=== PATIENT | female | born 1960 | race Caucasian/White ===

== ENCOUNTER → 2016-05-20 | Outpatient (CLI) | payer OTHER ==
[~2016-05-20] MED LIST: ATOR-54 PO; ATV/1 PO; CGN1X PO; DONE5TAB9 PO; HLD5 PO; LEVO100T PO; LEVO100T84 PO; LTH300T PO; LTHCR300 PO; OMEG10007 PO; OXCA150T2 PO; OXCA300T PO; PROP10TA7 PO; QUET1TAB10 PO; QUET1TAB30 PO; QUET1TAB32 PO; QUET200T2 PO; RISP0.5T4 PO; RSP2 PO; SRQ200 PO; SULF800T23 PO; VTME100 PO; [UNRECOGNIZED DRUG - OTHER] PO; [UNRECOGNIZED DRUG - OTHER] PO
--- NOTE | 2016-05-20 16:01 | DIAGNOSTIC IMAGING REPORT ---
CHEST 2 VIEWS ROUTINE CLINICAL HISTORY: LOWER RESPIRATORY TRACT INFECTION dyspnea COMPARISON STUDY: 06/27/2015 FINDINGS: The bones soft tissues and hemidiaphragms are normal. The cardiomediastinal silhouette is normal. The lungs are clear. The pulmonary vasculature is normal. IMPRESSION: Negative chest. Electronically signed by: Josep Sneed M.D. 05/20/2016 3:59 PM Dictated Date/Time: 05/20/2016 3:59 PM
== END | disposition home or self-care (01) ==
LOC: C.RAD 15:40
PROVIDERS: ATTEND Plastic Surgery
DX: J22 Unspecified acute lower respiratory infection (principal)

== ENCOUNTER → 2016-06-09 | Outpatient (CLI) | payer OTHER ==
[2016-06-09 12:28] LABS: MEAN CELL VOLUME 88.4 fL (80-100); MEAN CORPUSCULAR HEMOGLOBIN 30.4 pg (25-34); MEAN CORPUSCULAR HGB CONC 34.4 g/dl (32-36); MEAN PLATELET VOLUME 11.9 fL (7.4-10.4); PLATELET COUNT 166 K/uL (130-400); RED BLOOD COUNT 4.64 M/uL (4.2-5.4); WHITE BLOOD COUNT 6.65 K/uL (4.8-10.8)
[2016-06-09 12:43] LABS: ALT/SGPT 43 U/L (12-78); BLOOD UREA NITROGEN 14 mg/dl (7-18); BUN/CREATININE RATIO 15.2 (10-20); CALCIUM 8.8 mg/dl (8.5-10.1); CARBON DIOXIDE 22 mmol/L (21-32); CHLORIDE 108 mmol/L (98-107); CHOLESTEROL 300 mg/dl (0-200); CREATININE 0.95 mg/dl (0.60-1.20); GLUCOSE 136 mg/dl (70-99); POTASSIUM 3.8 mmol/L (3.5-5.1); SODIUM 141 mmol/L (136-145)
[2016-06-09 12:53] LABS: ALB/GLOB RATIO 1.1 (0.9-2); ALKALINE PHOSPHATASE 91 U/L (45-117); AST/SGOT 25 U/L (15-37); CHOLESTEROL/HDL RATIO 7.7; HDL CHOLESTEROL 39 mg/dl; THYROID STIMULATING HORMONE 0.898 uIu/ml (0.300-4.500); TRIGLYCERIDES 407 mg/dl (0-150)
[2016-06-09 12:59] LABS: ESTIMATED AVERAGE GLUCOSE 126 mg/dl; HA1C FLAG Normal (Normal)
== END | disposition home or self-care (01) ==
LOC: C.LABBFT 08:25
PROVIDERS: ATTEND Internal Medicine
DX: E78.5 Hyperlipidemia, unspecified (principal); R73.01 Impaired fasting glucose; E03.9 Hypothyroidism, unspecified

== ENCOUNTER 2016-10-05 12:02 | Inpatient (IN) | payer OTHER ==
[~2016-10-05] VITALS: Ht 154.9 cm; Wt 74.8 kg
[~2016-10-05 12:02] MED LIST changes: -ATOR-54 PO; -CGN1X PO; -DONE5TAB9 PO; -HLD5 PO; -LEVO100T PO; -LTHCR300 PO; -OXCA150T2 PO; -OXCA300T PO; -PROP10TA7 PO; -QUET1TAB10 PO; -QUET1TAB32 PO; -RISP0.5T4 PO; -RSP2 PO; -SRQ200 PO; -VTME100 PO
[2016-10-05] MEDS ORDERED: LORAZEPAM 1 MG TAB SL STA (12:35)
--- NOTE | 2016-10-05 12:41 | EMERGENCY ROOM VISIT NOTE ---
History Report prepared by Esme: Joan Shah Under the Supervision of: Dr. Jacoby Bob D.O. First contact with patient: 12:20 Chief Complaint: MENTAL HEALTH EVALUATION Stated Complaint: [facility]MR History of Present Illness The patient is a 56 year old female who presents to the Emergency Room for mental health evaluation. Per the patient and her daughter, she has not been sleeping well lately. The patient has experienced this before and the lack of sleep causes a manic episode to occur. During these manic episodes she does have schizophrenia and hears voices. The patient is diagnosed with bipolar disorder. She is experiencing a headache but notes her mind has been racing with thoughts lately. She also has been urinating less than usual. The patient was admitted to [facility] last year for similar symptoms. The patient's daughter did talk to the patient's psychologist today. She denies any recent illnesses or suicidal ideation. Source of History: patient, family Onset: today Position: other (global) Quality: other (mental health evaluation) Timing: constant Associated Symptoms: + headache, + urinary symptoms Note: The patient is hearing voices. Review of Systems See HPI for pertinent positives & negatives. A total of 10 systems reviewed and were otherwise negative. Past Medical & Surgical Medical Problems: (1) Bipolar 1 disorder (2) Bipolar Disorder, Unspecified (3) Depressive Disorder Nec (4) Esophageal Reflux (5) Hypothyroidism Nos (6) Lumbago (7) Schizophrenia Nos-Unspec Family History Diabetes mellitus Social History Smoking Status: Never Smoker Alcohol Use: none Marital Status: in relationship Housing Status: unknown Occupation Status: unemployed Current/Historical Medications Scheduled Atorvastatin (Lipitor), 20 MG PO BID Donepezil HCl (Aricept), 1 TAB PO QAM Levothyroxine Sodium (Synthroid), 100 MCG PO DAILY Oxcarbazepine (Trileptal), 300 MG PO BID Quetiapine Fumarate (Seroquel), 50 MG PO BID Quetiapine Fumarate (Seroquel), 200 MG PO HS Tocopheryl Acet,Dl-Alpha (Vitamin E), 200 PO DAILY Scheduled PRN Lorazepam (Ativan), 1 MG PO BID PRN for Anxiety Allergies Coded Allergies: Penicillins (Verified Allergy, Unknown, UNKN, 06/27/15) Physical Exam Vital Signs Date Time Temp Pulse Resp B/P Pulse Ox O2 Delivery O2 Flow Rate FiO2 5/23/17 12:04 36.7 88 18 149/94 96 Room Air Physical Exam GENERAL: Patient is awake, alert, and in no acute distress. Patient is somewhat animated and anxious. EYES: The conjunctivae are clear. The pupils are round and reactive. EARS, NOSE, MOUTH AND THROAT: The nose is without any evidence of any deformity. Mucous membranes are moist tongue is midline NECK: The neck is nontender and supple. RESPIRATORY: Normal respiratory effort is noted there is no evidence of wheezing rhonchi or rales CARDIOVASCULAR: Regular rate and rhythm noted there no murmurs rubs or gallops normal S1 normal S2 GASTROINTESTINAL: The abdomen is soft. Bowel sounds are present in all quadrants. Abdomen is nontender MUSCULOSKELETAL/EXTREMITIES: There is no evidence of gross deformity full range of motion is noted in the hips and shoulders SKIN: There is no obvious evidence of any rash. There are no petechiae, pallor or cyanosis noted. NEUROLOGIC: Patient is awake alert and oriented x3 strength is symmetric patellar reflexes are 2+ bilaterally PSYCH: Affect animated. Patient answers questions appropriately. Responds to internal stimuli at times. Denies suicidal or homicidal ideation. Reports of auditory hallucinations through family member. Medical Decision & Procedures Laboratory Results 10/05/16 12:50 Red Blood Count 4.70, Mean Corpuscular Volume 88.9, Mean Corpuscular Hemoglobin 29.8, Mean Corpuscular Hemoglobin Concent 33.5, Mean Platelet Volume 10.9, Neutrophils (%) (Auto) 63.2, Lymphocytes (%) (Auto) 28.1, Monocytes (%) (Auto) 6.4, Eosinophils (%) (Auto) 1.7, Basophils (%) (Auto) 0.3, Neutrophils # (Auto) 4.87, Lymphocytes # (Auto) 2.16, Monocytes # (Auto) 0.49, Eosinophils # (Auto) 0.13, Basophils # (Auto) 0.02 10/05/16 12:50 Test 10/05/16 12:14 10/05/16 12:50 Urine Color DK YELLOW Urine Appearance CLEAR (CLEAR) Urine pH 5.5 (4.5-7.5) Urine Specific [place] 1.026 (1.000-1.030) Urine Protein NEG (NEG) Urine Glucose (UA) NEG (NEG) Urine Ketones TRACE (NEG) Urine Occult Blood NEG (NEG) Urine Nitrite NEG (NEG) Urine Bilirubin NEG (NEG) Urine Urobilinogen NEG (NEG) Urine Leukocyte Esterase MODERATE (NEG) Urine WBC (Auto) 5-10 /hpf (0-5) Urine RBC (Auto) 0-4 /hpf (0-4) Urine Hyaline Casts (Auto) 5-10 /lpf (0-5) Urine Epithelial Cells (Auto) >30 /lpf (0-5) Urine Bacteria (Auto) NEG (NEG) Urine Crystals CALCIUM OXALATE (NONE Urine Mucus PRESENT (NONE PRSENT) Urine Sperm (Auto) PRESENT Urine Test NEG (NEG) Urine Opiates Screen NEG (NEG) Urine Methadone, Qualitative NEG (NEG) Urine Barbiturates NEG (NEG) Urine Phencyclidine (PCP) Level NEG (NEG) Ur Amphetamine/Methamphetamine NEG (NEG) MDMA (Ecstasy) Screen NEG (NEG) Urine Benzodiazepines Screen NEG (NEG) Urine Cocaine Metabolite NEG (NEG) Urine Marijuana (THC) NEG (NEG) White Blood Count 7.69 K/uL (4.8-10.8) Red Blood Count 4.70 M/uL (4.2-5.4) Hemoglobin 14.0 g/dL (12.0-16.0) Hematocrit 41.8 % (37-47) Mean Corpuscular Volume 88.9 fL (80-100) Mean Corpuscular Hemoglobin 29.8 pg (25-34) Mean Corpuscular Hemoglobin Concent 33.5 g/dl (32-36) Platelet Count 225 K/uL (130-400) Mean Platelet Volume 10.9 fL (7.4-10.4) Neutrophils (%) (Auto) 63.2 % Lymphocytes (%) (Auto) 28.1 % Monocytes (%) (Auto) 6.4 % Eosinophils (%) (Auto) 1.7 % Basophils (%) (Auto) 0.3 % Neutrophils # (Auto) 4.87 K/uL (1.4-6.5) Lymphocytes # (Auto) 2.16 K/uL (1.2-3.4) Monocytes # (Auto) 0.49 K/uL (0.11-0.59) Eosinophils # (Auto) 0.13 K/uL (0-0.5) Basophils # (Auto) 0.02 K/uL (0-0.2) RDW Standard Deviation 39.9 fL (36.4-46.3) RDW Coefficient of Variation 12.4 % (11.5-14.5) Immature Granulocyte % (Auto) 0.3 % Immature Granulocyte # (Auto) 0.02 K/uL (0.00-0.02) Anion Gap 7.0 mmol/L (3-11) Est Creatinine Clear Calc Drug Dose 63.0 ml/min Estimated GFR () 81.7 Estimated GFR (Non- 70.5 BUN/Creatinine Ratio 14.5 (10-20) Calcium Level 8.8 mg/dl (8.5-10.1) Total Bilirubin 0.8 mg/dl (0.2-1) Direct Bilirubin 0.2 mg/dl (0-0.2) Aspartate Amino Transf (AST/SGOT) 30 U/L (15-37) Alanine Aminotransferase (ALT/SGPT) 43 U/L (12-78) Alkaline Phosphatase 118 U/L (45-117) Total Protein 7.0 gm/dl (6.4-8.2) Albumin 4.1 gm/dl (3.4-5.0) Thyroid Stimulating Hormone (TSH) 0.593 uIu/ml (0.300-4.500) [place] Level < 0.2 mMOL/L (0.6-1.2) Ethyl Alcohol mg/dL < 3.0 mg/dl (0-3) Laboratory results per my review. Medications Administered Medications (Trade) Dose Ordered Sig/Azeem Route Start Time Stop Time Status Last Admin Dose Admin Lorazepam (Ativan Tab) 1 mg NOW STAT SL 10/05/16 12:35 10/05/16 12:37 DC 10/05/16 12:47 1 MG ED Course 1230: The patient was evaluated in room A6. A complete history and physical examination were performed. 1235: Ativan Tab 1 mg SL. 1505: The patient will be admitted to [facility] for further inpatient treatment. Medical Decision Differential diagnosis: Etiologies such as mood disorder, infection, hypoglycemia, electrolyte abnormalities, cardiac sources, intracerebral event, toxicologic, neurologic, as well as others were entertained. Nursing notes reviewed. Additional history is obtained from the patient's daughter. The patient is a 56-year-old female who has a history of manic depression who is been having problems with insomnia and worsening alison. The patient had very significant symptoms at this time. She is unable to function at home. Reportedly she has been compliant with medications but she appears to be very difficult to manage otherwise. I discussed the patient's laboratory results with her. She was medically cleared in the emergency department. She was treated with Ativan in the emergency department and was feeling much better. She was evaluated by the emergency Department mental health spring encaser as well as the delegate from [address] [place] [address]. She was felt to be a good candidate for voluntary inpatient management. The patient was agreeable to this plan. Impression Primary Impression: Insomnia Additional Impressions: Alison Psychotic episode Scribe Attestation The scribe's documentation has been prepared under my direction and personally reviewed by me in its entirety. I confirm that the note above accurately reflects all work, treatment, procedures, and medical decision making performed by me. Departure Information Dispostion [facility] Acute Care Referrals No Doctor, Assigned (PCP) Problem Qualifiers Primary Impression: Insomnia Insomnia type: unspecified Qualified Codes: G47.00 - Insomnia, unspecified
[2016-10-05 13:04] LABS: URINE APPEARANCE CLEAR (CLEAR); URINE BILIRUBIN NEG (NEG); URINE COLOR DK YELLOW; URINE EPITHELIAL CELL AUTO >30 /lpf (0-5); URINE NITRITE NEG (NEG); URINE PH 5.5 (4.5-7.5); URINE SPECIFIC GRAVITY 1.026 (1.000-1.030); UROBILINOGEN NEG (NEG)
[2016-10-05 13:09] LABS: MANUAL MICROSCOPIC REQUIRED? NO; REVIEW REQ? YES
[2016-10-05 13:25] LABS: URINE MUCUS PRESENT (NONE PRSENT)
[2016-10-05 13:26] LABS: BUN/CREATININE RATIO 14.5 (10-20); CALCIUM 8.8 mg/dl (8.5-10.1); CREATININE 0.9 mg/dl (0.60-1.20); POTASSIUM 3.4 mmol/L (3.5-5.1)
[2016-10-05 13:37] LABS: THYROID STIMULATING HORMONE 0.593 uIu/ml (0.300-4.500)
[2016-10-05] MEDS ORDERED: OXCA150T2 PO (13:40)
[2016-10-05] MEDS ORDERED: SRQ200 PO (13:40)
[2016-10-05] MEDS ORDERED: DONE5TAB9 PO (13:40)
[2016-10-05] MEDS ORDERED: QUET1TAB32 PO (13:40)
[2016-10-05 13:45] LABS: PREG INTERNAL NEGATIVE QC NEG CLEAR BACKGROUND; PREG INTERNAL POSITIVE QC POS CONTROL LINE
[2016-10-05 13:48] LABS: BASO % 0.3 %; BASO ABS # 0.02 K/uL (0-0.2); COMPLETE YES; EOS % 1.7 %; HEMATOCRIT 41.8 % (37-47); IG% 0.3 %; LYMPH % 28.1 %; LYMPH ABS # 2.16 K/uL (1.2-3.4); MEAN CELL VOLUME 88.9 fL (80-100); MEAN CORPUSCULAR HEMOGLOBIN 29.8 pg (25-34); MEAN CORPUSCULAR HGB CONC 33.5 g/dl (32-36); MEAN PLATELET VOLUME 10.9 fL (7.4-10.4); MONO % 6.4 %; NEUT % 63.2 %; PLATELET COUNT 225 K/uL (130-400); WHITE BLOOD COUNT 7.69 K/uL (4.8-10.8)
[2016-10-05 14:07] LABS: BENZODIAZEPINE, URINE NEG (NEG); COCAINE,URINE NEG (NEG); PHENCYCLIDINE, URINE NEG (NEG)
[2016-10-05] MEDS ORDERED: OXCA300T PO (14:30)
[2016-10-05] MEDS ORDERED: VTME100 PO (14:43)
[2016-10-05] MEDS ORDERED: QUETIAPINE FUMARATE 25 MG TAB PO SCH (14:51)
[2016-10-05] MEDS ORDERED: BISMUTH SUBSALICYLATE PER ML OMNICELL CHARGE PO PRN (15:00)
[2016-10-05] MEDS ORDERED: hydrOXYzine HCL 25 MG TAB PO PRN (15:00)
[2016-10-05] MEDS ORDERED: SODIUM CHLORIDE 0.65% NA SOLN 45 ML (OCEAN) PRN (15:00)
[2016-10-05] MEDS ORDERED: MAGNESIUM HYDROXIDE SUSP 30 ML UDC PO PRN (15:00)
[2016-10-05] MEDS ORDERED: ALUMINUM/MAGNESIUM SUSP 30 ML UDC PO PRN (15:00)
[2016-10-05 15:05] VITALS: O2SAT 95
[2016-10-05] MEDS: LORAZEPAM 1 MG TAB PO PRN (15:55)
[2016-10-05 15:57] VITALS: BP 147/86; PULSE 84; TEMP 36.7; BMI 31.2
[2016-10-05] MEDS ORDERED: NURSING VERBAL MED ORDER ONE ×4 (16:45→22:00)
[2016-10-05] MEDS ORDERED: LORAZEPAM 1 MG TAB PO ONE ×2 (16:45→18:45)
[2016-10-05] MEDS: HALOPERIDOL 5 MG TAB PO PRN (16:50)
[2016-10-05] MEDS ORDERED: HALOPERIDOL 5 MG TAB PO ONE ×2 (17:45→18:45)
[2016-10-05] MEDS ORDERED: QUETIAPINE FUMARATE 100 MG TAB PO SCH (22:00)
[2016-10-06] MEDS: OXCARBAZEPINE 150 MG TAB PO SCH ×3 (00:16→20:44)
[2016-10-06] MEDS: QUETIAPINE FUMARATE 300 MG TAB PO SCH ×2 (00:16→20:43)
[2016-10-06] MEDS: ATORVASTATIN 20 MG TAB PO SCH ×2 (00:16→20:44)
[2016-10-06 07:03] VITALS: BP_SYST 143; BP_SYST 144; BP_DIAS 81; BP_DIAS 87; PULSE 76; PULSE 82; TEMP 36.2
[2016-10-06 07:09] VITALS: Ht 154.9 cm; Wt 74.8 kg
[2016-10-06] MEDS: TOCOPHERYL, DL-ALPHA 100 INTERUNIT CAP PO SCH (07:33)
[2016-10-06] MEDS: DONEPEZIL HCL 5 MG TAB PO SCH (07:33)
[2016-10-06] MEDS: LEVOTHYROXINE 100 MCG TAB PO SCH (07:33)
[2016-10-06] MEDS: QUETIAPINE FUMARATE 100 MG TAB PO SCH ×2 (07:33→14:07)
[2016-10-06] MEDS: LORAZEPAM 1 MG TAB PO PRN ×2 (07:42→19:49)
[2016-10-06] MEDS ORDERED: NURSING VERBAL MED ORDER ONE (07:45)
[2016-10-06] MEDS: HALOPERIDOL 5 MG TAB PO PRN ×2 (07:54→14:08)
[2016-10-06] MEDS ORDERED: BENZTROPINE MESYLATE 1 MG TAB PO ONE (08:00)
--- NOTE | 2016-10-06 08:50 | Psychiatric History & Physical ---
History Date of Service October 06, 2016. Identifying Data Taniya Waterman is a 56-year-old female who currently lives in [place] with her , has a history of bipolar disorder, and is admitted voluntarily after she presented with alison. Chief Complaint "I'm doing really, really good". History of Present Illness Patient is known to us from one prior very brief hospitalization in February 2014 for a mixed manic episode, when she was transferred to another psychiatric unit due to a conflict of interest, as a relative of hers was also on the unit. She presented to the ER yesterday with family and endorse symptoms of elevated , expansive mood, no sleep x 4 days, high energy, paranoia (thinks someone is going to kill her family), anxiety, and hyperactivity. She was confused and agitated after admission to the unit, repeatedly asking to leave, and could not find her room. She was hyperverbal, restless, pounding on the unit doors, and trying to touch and hug staff. She got multiple prns (Seroquel 50mg, Ativan 1mg , Haldol 10mg, Haldol 5mg, another Ativan 1mg). She was making accusations that family members and acquaintances "slipped something into her bottle" and that's why she is "like this". She admitted that she has not been taking her medications, and "this is what happens when I don't take them". Patient reports she stopped taking her medications because "people were making fun of my tongue ". She repeatedly attempts to enter the nurses' station, and continually gets up and down from bed to come talk to staff. Her and son visited and reported to staff that she had been stable on lithium for 25 years until 3 years ago when it was changed, they don't know why, and since then she's been hospitalized 3 times. During past hospitalizations, she was given a lot of medications that "snowed her for at least 2 or 3 days, so she could get the sleep she needed, and that really helped." Son says he has witnessed roughly 7 of her manic episodes in his life, and has never seen a presentation like this. He describes her "normal episodes" as being tearful, worried and introverted without sleeping. Son states is it uncharacteristic of her to be so labile, expansive and physical. Both son and agree she typically does not touch /hug, cry, and laugh during manic episodes. Pt. has been very physical with staff, attempting to hug, kiss and caress staff. This morning, she is again asking to leave. She requires a lot of intervention from staff and security, and has asked for medication to help calm her down. Today, she is seen with Jaylyn Palacio, MS 3. She reports manic symptoms for the past 3-4 weeks, stating that she stopped sleeping on September [birth year], which was her 's birthday. She denies stressors, and states "I think because of the wildcats on the porch." She does not know the names of the medication she is prescribed at home, saying she needs to see the prescriptions, but then says she manages her own medications. Although she told staff yesterday that she was not taking her psychotropic medications, today she insists that she takes them daily. She last saw her outpatient psychiatrist, Dr. Chadwick, on Tuesday, and states she told him that "I have a wonderful life, a wonderful , love of the Lord." She denies that any medication changes were made, although family told staff her medicines had just been adjusted. She says she stopped lithium couple of months ago on her own because "I figured I didn't need it." She denies that it was causing any problems for her, and is willing to go back on it. She states her family encouraged her to come in yesterday, because she needed to get on her medications and get some sleep. She now feels she is better, and wonders if she can leave. We discussed a plan to get her back on a good mood stabilizer, have a family meeting, and coordinate care with her outpatient providers prior to discharge, which she agrees to. She states mood is "really, really good, I'm happy, I go to temple, believe in the Lord, have an awesome, awesome ." Appetite has been decreased, and she has lost weight, although unsure of the exact amount, notes that her clothing is loose. She thinks her appetite was low because she "was nervous and didn't want to eat , because I thought someone was going to kill my ." She struggles to further clarify this, stating "that was a weird thought." She later states "I knew no one was going to kill my , everyone loves him." She endorses poor concentration, distractibility, and elevated energy that she describes as "super good, busy busy busy busy." She denies auditory and visual hallucinations, and states she doesn't recall telling staff last evening that she suspected her family had put something in her drink. Past Psychiatric History Current OP Treatment: psychiatrist (Dr. Chadwick) Prior OP Treatment: psychiatrist (Dr. Lin), therapist (at [facility], last years ago, did not feel it was helpful) Prior Psych Hospitalizations: [facility] (at age 16, according to the patient , "for no reason at all."), [facility] (2013 for mixed episode - transferred to another facility due to a relative being on the unit. She says she was also here many years ago.), [facility] (2015) Access to a Gun: No Suicide Attempts: No Past Medication Trials lithium - stable on it for 25 years Per records she was also on risperidone in the past Allergies Allergies: Coded Allergies: Penicillins (Verified Allergy, Unknown, UNKN, 06/27/15) Home Medications Scheduled Atorvastatin (Lipitor), 20 MG PO BID Donepezil HCl (Aricept), 1 TAB PO QAM Levothyroxine Sodium (Synthroid), 100 MCG PO DAILY Oxcarbazepine (Trileptal), 300 MG PO BID Quetiapine Fumarate (Seroquel), 50 MG PO BID Quetiapine Fumarate (Seroquel), 200 MG PO HS Tocopheryl Acet,Dl-Alpha (Vitamin E), 200 PO DAILY Scheduled PRN Lorazepam (Ativan), 1 MG PO BID PRN for Anxiety Family History Diabetes mellitus History of Suicide: No History of Substance Abuse: No Psychiatric History: Yes (sister with an unknown mental illness, possibly depression. Mother with a question of anxiety.) Alcohol Use Alcohol Use In Past 12 Months: No AUDIT Total Score: 0 Smoking Use Smoking Status: Never Smoker Substance History Denies ever abusing illicit or prescription medications. Personal History Lives in: [place] Childhood: Raised by both parents, who are still alive and live in [place], and she helps them out at home. Has 4 brothers and 3 sisters, all of whom live locally, and reports good relationships with them. Education: graduated from high school Work History: The patient states she has never worked, other than brief employment at [employer] in the 70s. She is supported by her , who works construction. Relationship History: (third marriage, has been almost 2 years. ) Children: 2 adult children, 1 son and 1 daughter Spiritual Affiliation: "I believe in the Lord." Legal History: none Psychological Trauma History: Other (denies) Review of Systems 10 systems reviewed and are negative except as stated above. Examination Physical Examination Physical exam performed in the emergency room was reviewed and accepted for the purposes of this admission. Vital Signs Vital Signs Past 12 Hours Date Time Temp Pulse Resp B/P Pulse Ox O2 Delivery O2 Flow Rate FiO2 10/06/16 07:03 36.2 76 18 144/81 82 143/87 Laboratory Results Last 24 Hours Test 10/05/16 12:14 10/05/16 12:50 Urine Color DK YELLOW Urine Appearance CLEAR Urine pH 5.5 Urine Specific [place] 1.026 Urine Protein NEG Urine Glucose (UA) NEG Urine Ketones TRACE Urine Occult Blood NEG Urine Nitrite NEG Urine Bilirubin NEG Urine Urobilinogen NEG Urine Leukocyte Esterase MODERATE Urine WBC (Auto) 5-10 /hpf Urine RBC (Auto) 0-4 /hpf Urine Hyaline Casts (Auto) 5-10 /lpf Urine Epithelial Cells (Auto) >30 /lpf Urine Bacteria (Auto) NEG Urine Crystals CALCIUM OXALATE Urine Mucus PRESENT Urine Sperm (Auto) PRESENT Urine Test NEG Urine Opiates Screen NEG Urine Methadone, Qualitative NEG Urine Barbiturates NEG Urine Phencyclidine (PCP) Level NEG Ur Amphetamine/Methamphetamine NEG MDMA (Ecstasy) Screen NEG Urine Benzodiazepines Screen NEG Urine Cocaine Metabolite NEG Urine Marijuana (THC) NEG White Blood Count 7.69 K/uL Red Blood Count 4.70 M/uL Hemoglobin 14.0 g/dL Hematocrit 41.8 % Mean Corpuscular Volume 88.9 fL Mean Corpuscular Hemoglobin 29.8 pg Mean Corpuscular Hemoglobin Concent 33.5 g/dl Platelet Count 225 K/uL Mean Platelet Volume 10.9 fL Neutrophils (%) (Auto) 63.2 % Lymphocytes (%) (Auto) 28.1 % Monocytes (%) (Auto) 6.4 % Eosinophils (%) (Auto) 1.7 % Basophils (%) (Auto) 0.3 % Neutrophils # (Auto) 4.87 K/uL Lymphocytes # (Auto) 2.16 K/uL Monocytes # (Auto) 0.49 K/uL Eosinophils # (Auto) 0.13 K/uL Basophils # (Auto) 0.02 K/uL RDW Standard Deviation 39.9 fL RDW Coefficient of Variation 12.4 % Immature Granulocyte % (Auto) 0.3 % Immature Granulocyte # (Auto) 0.02 K/uL Sodium Level 143 mmol/L Potassium Level 3.4 mmol/L Chloride Level 109 mmol/L Carbon Dioxide Level 27 mmol/L Anion Gap 7.0 mmol/L Blood Urea Nitrogen 13 mg/dl Creatinine 0.90 mg/dl Est Creatinine Clear Calc Drug Dose 63.0 ml/min Estimated GFR () 81.7 Estimated GFR (Non- 70.5 BUN/Creatinine Ratio 14.5 Random Glucose 143 mg/dl Calcium Level 8.8 mg/dl Total Bilirubin 0.8 mg/dl Direct Bilirubin 0.2 mg/dl Aspartate Amino Transf (AST/SGOT) 30 U/L Alanine Aminotransferase (ALT/SGPT) 43 U/L Alkaline Phosphatase 118 U/L Total Protein 7.0 gm/dl Albumin 4.1 gm/dl Thyroid Stimulating Hormone (TSH) 0.593 uIu/ml [place] Level < 0.2 mMOL/L Ethyl Alcohol mg/dL < 3.0 mg/dl Mental Examination During interview pt is: alert and oriented, cooperative (but a limited historian due to alison) Appearance: appropriately dressed, disheveled Eye contact is: fair Motor behavior is: psychomotor agitation (restless) Speech: is pressured (hyperverbal) Affect: other (elevated, expansive) Mood is: other ("really really good") Thought process: looseness of associations Thought content: paranoid Suicidal thought are: denied Homicidal thoughts are: denied Hallucinations: denies auditory, denies visual Cognition: language grossly intact, other (memory and attention are impaired) Intelligence estimated to be: average Insight: impaired Judgement: impaired Impression / Recommendations Impression 56-year-old white female with bipolar disorder type I who presents in a manic episode in the context of noncompliance with medications. She is willing to go back on lithium, which she was stable on for over 20 years. Inventory Assets Strengths: Has stable housing, supportive family Risk Factors Assessment : Yes /single/: No Higher / Fall in social status: No Access to guns: No Health problems: No Mental Health Diagnoses: Yes Substance use disorders: No Previous attempt: No Family history of suicide: No Previous psychiatric stay: Yes Hopelessness: No Smoker: No Protective Factors Assessment Restoration beliefs: Yes : Yes Responsible for young children: No Employed: No Supportive family: Yes Good rapport with provider: Yes Recommendations (1) Bipolar 1 disorder Current episode manic with psychosis. -Continue quetiapine which was increased on admission to 100 mg twice a day and 300 mg daily at bedtime to target manic symptoms. -Fasting lipid profile was checked 06/09/2016, and showed elevated cholesterol of 300 and elevated triglycerides of 407. Hemoglobin A1c was elevated at 6.0. This will require ongoing monitoring as an outpatient, and perhaps she could be tapered off of quetiapine once put back on lithium and stabilized. -Taper off of oxcarbazepine, which has not been an adequate mood stabilizer for her, and load with lithium tonight - 30mg/kg in 3 divided doses, with trough level tomorrow. -He knew haloperidol, lorazepam, and benztropine as needed for acute a and psychosis. -Get records from outpatient psychiatrist and coordinate care. -Family meeting with and possibly adult children. -Encourage increased outpatient supports, including therapy and case management. (2) Hypothyroidism Continue home dose of levothyroxine. (3) Hyperlipidemia Continue home dose of atorvastatin. CPT Code Initial Hospital Care: [id number]
[2016-10-06] MEDS: QUETIAPINE FUMARATE 25 MG TAB PO PRN ×2 (10:23→19:49)
[2016-10-06] MEDS ORDERED: LITHIUM CARBONATE SR 300 MG TAB (LITHOBID) PO SCH ×2 (10:30→20:00)
[2016-10-06] MEDS: BENZTROPINE MESYLATE 1 MG TAB PO PRN (14:07)
[2016-10-06] MEDS: LITHIUM CARBONATE SR 300 MG TAB (LITHOBID) PO SCH ×2 (15:46→18:05)
[2016-10-06] MEDS: ACETAMINOPHEN 325 MG TAB PO PRN (18:06)
[2016-10-06] MEDS: hydrOXYzine HCL 25 MG TAB PO PRN (21:58)
[2016-10-07] MEDS: LEVOTHYROXINE 100 MCG TAB PO SCH (07:55)
[2016-10-07] MEDS: TOCOPHERYL, DL-ALPHA 100 INTERUNIT CAP PO SCH (07:55)
[2016-10-07] MEDS: QUETIAPINE FUMARATE 100 MG TAB PO SCH ×2 (07:55→13:48)
[2016-10-07] MEDS: OXCARBAZEPINE 150 MG TAB PO SCH ×2 (07:55→21:42)
[2016-10-07] MEDS: DONEPEZIL HCL 5 MG TAB PO SCH (07:55)
[2016-10-07 08:10] VITALS: BP_SYST 113; BP_SYST 117; BP_DIAS 77; BP_DIAS 80; PULSE 73; PULSE 78; TEMP 36.4
[2016-10-07] MEDS ORDERED: HALOPERIDOL 5 MG TAB PO PRN (09:00)
--- NOTE | 2016-10-07 09:51 | Psychiatric Progress Notes ---
Progress Note Date of Service October 07, 2016. Interval History 56 yo woman admitted on 10/05/16 in a manic episode. She has had multiple hospitalizations since coming off of lithium. Chief Complaint "I'm ready to go.". Subjective Patient was seen & assessed interval progress reviewed with Treatment Team. The patient is anxious to leave, but wanting treatment. She says that her thoughts are slowing down and describes them as "not fast" today, but remains with high energy. Staff report that she has been disorganized, carrying her clothes around or throwing them away, repeatedly looking to leave, but easily reoriented to the need to stay in the unit. She was noted to be dancing and singing yesterday and received multiple prns on top of her scheduled meds. Her sleep is improved and noted to be for 7 hours or so last night. She denies aud/ vis hallucinations. She has submitted her 72 hr notice to withdraw from treatment which will on Tuesday, and at present has no insight into the need for ongoing treatment. She denies side effects to meds. Review of Systems Constitutional: No chills, No fatigue, No fever, No problem reported, No sweats , No weakness, No weight loss ENT: No dental problems, No hearing loss, No nasal symptoms, No problem reported, No sore throat, No tinnitus, No trouble swallowing, No unusual epistaxis Respiratory: No cough, No dyspnea at rest, No dyspnea on exertion, No hemoptysis, No problem reported, No shortness of breath, No sputum, No wheezing Cardiovascular: No PND, No chest pain, No claudication, No edema, No orthopnea , No palpitations, No problem reported Abdomen: No GI bleeding, No constipation, No diarrhea, No nausea, No pain, No problem reported, No vomiting Musculoskeletal: No calf pain, No joint pain, No muscle pain, No problem reported, No swelling Neurologic: No balance problems, No memory loss, No numbness/tingling, No paralysis, No problem reported, No vertigo, No weakness Psychiatric: + problem reported (high manic energy) Integumentary: No bleeding, No color change, No itch, No new/changing skin lesions, No problem reported, No rash Sleep Information Total Hours of Sleep: 6.25 Meal Information Percent of Breakfast Consumed: 50 Percent of Lunch Consumed: 90 Percent of Dinner Consumed: 100 Mental Status Exam During interview pt is: alert and oriented, cooperative Appearance: appropriately dressed, disheveled Eye contact is: fair Motor behavior is: psychomotor agitation (restless) Speech: is pressured (hyperverbal) Affect: blunted (appearing tired) Mood is: other ("fine") Thought process: other (fast thoughts) Thought content: paranoid, other (without insight) Suicidal thought are: denied Homicidal thoughts are: denied Hallucinations: denies auditory, denies visual Cognition: language grossly intact, other (memory and attention are impaired) Intelligence estimated to be: average Insight: impaired Judgement: impaired Impression Medications are helping to slow the alison, but her energy remains high, and behaviors disorganized. Loaded with li last night with level of 1.0. Will start maintenance of Lithobid 900 mg. HS with level in 5 days. Will increase Seroquel to 200 mg. and , and continue 300 mg. HS. Continue prn haldol. Will continue to gather information toward the need for further inpatient treatment, but may need to file for a 302 if she does not revoke her notice. Plan (1) Bipolar 1 disorder Current episode manic with psychosis. -Continue quetiapine which was increased on admission to 100 mg twice a day and 300 mg daily at bedtime to target manic symptoms. -Fasting lipid profile was checked 06/09/2016, and showed elevated cholesterol of 300 and elevated triglycerides of 407. Hemoglobin A1c was elevated at 6.0. This will require ongoing monitoring as an outpatient, and perhaps she could be tapered off of quetiapine once put back on lithium and stabilized. -Taper off of oxcarbazepine, which has not been an adequate mood stabilizer for her, and load with lithium tonight - 30mg/kg in 3 divided doses, with trough level tomorrow. -He knew haloperidol, lorazepam, and benztropine as needed for acute a and psychosis. -Get records from outpatient psychiatrist and coordinate care. -Family meeting with and possibly adult children. -Encourage increased outpatient supports, including therapy and case management. 10/07 - Increase Seroquel to 200-200-300 mg - Loaded with li, level 1.0. Start lithobid 900 mg. HS with level in 5 days. - Continue seroquel prn (2) Hypothyroidism Continue home dose of levothyroxine. (3) Hyperlipidemia Continue home dose of atorvastatin. Discharge / Aftercare Planning Primary Care Physician: Name: Dr Astorga Psychiatrist: Name: Dr Chadwick Therapist: Name: Ansely Social Service Agency Director: Name: None Visit Code E&M Code: 37567 Inventory Assets Strengths: Has stable housing, supportive family Risk Factors Assessment : Yes /single/: No Higher / Fall in social status: No Health problems: No Mental Health Diagnoses: Yes Substance use disorders: No Previous attempt: No Family history of suicide: No Previous psychiatric stay: Yes Hopelessness: No Smoker: No Protective Factors Assessment Moravian beliefs: Yes : Yes Responsible for young children: No Employed: No Supportive family: Yes Good rapport with provider: Yes Data Vital Signs Last 24 Hrs: Date Time Temp Pulse Resp B/P Pulse Ox O2 Delivery O2 Flow Rate FiO2 10/07/16 08:10 36.4 73 16 117/77 78 113/80 Meds Administered Last 24 Hrs: Meds Administered (Past 24Hrs) Medications (Trade) Dose Ordered Sig/Azeem Route Start Time Stop Time Status Last Admin Dose Admin Lorazepam (Ativan Tab) 1 mg NOW STAT SL 10/05/16 12:35 10/05/16 12:37 DC 10/05/16 12:47 1 MG Acetaminophen (Tylenol Tab) 650 mg Q4H PRN PO 10/05/16 15:00 11/04/16 14:59 10/06/16 18:06 650 MG Hydroxyzine HCl (Vistaril Tab) 50 mg HSZ PRN PO 10/05/16 15:00 11/04/16 14:59 10/06/16 21:58 50 MG Atorvastatin Calcium (Lipitor Tab) 20 mg HS PO 10/05/16 22:00 11/04/16 21:59 10/06/16 20:44 20 MG Donepezil HCl (Aricept Tab) 5 mg QAM PO 10/06/16 09:00 11/05/16 08:59 10/07/16 07:55 5 MG Levothyroxine Sodium (Synthroid Tab) 100 mcg DAILYBB PO 10/06/16 08:00 11/05/16 07:59 10/07/16 07:55 100 MCG Lorazepam (Ativan Tab) 1 mg BID PRN PO 10/05/16 15:00 11/04/16 14:59 10/06/16 19:49 1 MG Oxcarbazepine (Trileptal Tab) 300 mg BID PO 10/05/16 22:00 10/06/16 10:31 DC 10/06/16 07:33 300 MG Quetiapine Fumarate (seroQUEL TAB) 300 mg HS PO 10/05/16 22:00 11/04/16 21:59 10/06/16 20:43 300 MG rs-Viqar-Xaffurgwgj Acetate (Vitamin E Cap) 100 interunit DAILY PO 10/06/16 09:00 11/05/16 08:59 10/07/16 07:55 100 INTERUNIT Quetiapine Fumarate (seroQUEL TAB) 50 mg 1451 PO 10/05/16 14:51 10/05/16 18:00 DC 10/05/16 14:51 50 MG Quetiapine Fumarate (seroQUEL TAB) 50 mg Q4H PRN PO 10/05/16 15:00 11/04/16 14:59 10/06/16 19:49 50 MG Lorazepam (Ativan Tab) 1 mg NOW ONCE PO 10/05/16 16:45 10/05/16 16:46 DC 10/05/16 16:50 1 MG Haloperidol (Haldol Tab) 5 mg Q4H PRN PO 10/05/16 17:00 10/07/16 08:34 DC 10/06/16 14:08 5 MG Haloperidol (Haldol Tab) 10 mg ONE ONCE PO 10/05/16 17:45 10/05/16 17:46 DC 10/05/16 17:35 10 MG Haloperidol (Haldol Tab) 5 mg NOW ONCE PO 10/05/16 18:45 10/05/16 18:46 DC 10/05/16 18:37 5 MG Lorazepam (Ativan Tab) 1 mg NOW ONCE PO 10/05/16 18:45 10/05/16 18:46 DC 10/05/16 18:37 1 MG Quetiapine Fumarate (seroQUEL TAB) 100 mg BID@0900,1400 PO 10/06/16 09:00 10/07/16 08:38 DC 10/07/16 07:55 100 MG Benztropine Mesylate (Cogentin Tab) 1 mg 0800 ONCE PO 10/06/16 08:00 10/06/16 08:01 DC 10/06/16 07:54 1 MG Benztropine Mesylate (Cogentin Tab) 1 mg Q4H PRN PO 10/06/16 08:00 11/05/16 07:59 10/06/16 14:07 1 MG Oxcarbazepine (Trileptal Tab) 150 mg Taper BID PO 10/06/16 22:00 10/10/16 21:59 10/07/16 07:55 150 MG [place] Carbonate (Lithobid Tab) 600 mg TODAY@1600,1800 PO 10/06/16 16:00 10/06/16 18:01 DC 10/06/16 18:05 600 MG [place] Carbonate (Lithobid Tab) 900 mg TODAY@2000 PO 10/06/16 20:00 10/06/16 20:02 DC 10/06/16 19:49 900 MG Lab Results Last 24 Hrs: Last 24 Hours Test 10/07/16 08:10 [place] Level 1.0 mMOL/L
[2016-10-07] MEDS ORDERED: QUETIAPINE FUMARATE 100 MG TAB PO STA (10:42)
[2016-10-07] MEDS: HALOPERIDOL 5 MG TAB PO PRN ×2 (16:03→21:53)
[2016-10-07] MEDS: BENZTROPINE MESYLATE 1 MG TAB PO PRN ×2 (16:03→21:53)
[2016-10-07] MEDS: LORAZEPAM 1 MG TAB PO PRN (16:03)
[2016-10-07] MEDS: ACETAMINOPHEN 325 MG TAB PO PRN (18:21)
[2016-10-07] MEDS: LITHIUM CARBONATE SR 300 MG TAB (LITHOBID) PO SCH (21:42)
[2016-10-07] MEDS: QUETIAPINE FUMARATE 300 MG TAB PO SCH (21:42)
[2016-10-07] MEDS: ATORVASTATIN 20 MG TAB PO SCH (21:42)
[2016-10-08 07:08] VITALS: BP_SYST 122; BP_SYST 123; BP_DIAS 77; BP_DIAS 84; PULSE 78; PULSE 79; TEMP 36.4
[2016-10-08] MEDS: LEVOTHYROXINE 100 MCG TAB PO SCH (07:38)
[2016-10-08] MEDS: DONEPEZIL HCL 5 MG TAB PO SCH (07:54)
[2016-10-08] MEDS: QUETIAPINE FUMARATE 100 MG TAB PO SCH ×2 (07:54→13:31)
[2016-10-08] MEDS: OXCARBAZEPINE 150 MG TAB PO SCH (07:54)
[2016-10-08] MEDS: TOCOPHERYL, DL-ALPHA 100 INTERUNIT CAP PO SCH (07:55)
[2016-10-08] MEDS: HALOPERIDOL 5 MG TAB PO PRN ×3 (10:10→22:20)
[2016-10-08] MEDS: LORAZEPAM 1 MG TAB PO PRN ×2 (10:10→22:18)
--- NOTE | 2016-10-08 11:04 | Psychiatric Progress Notes ---
Progress Note Date of Service October 08, 2016. Interval History 56 yo woman admitted on 10/05/16 in a manic episode. She has had multiple hospitalizations since coming off of lithium. Chief Complaint "I'm fine.". Subjective Patient was seen & assessed interval progress reviewed with Treatment Team. The patient continues to insist that she is ready to go home and is no longer manic. However, she remains hyperactive, jumping in and out of bed, wandering around the unit, and last night was barging into others rooms loudly demanding they get out of bed. She has no memory of doing this. She has continued to demonstrate poor boundaries, barging into the nurses station wanting to hug staff, and telling people she loves them. Today her thoughts are disorganized. She attempts to answer a question before I am finished asking, and many times the answers don't make sense ie what is the first thing you feel that tells you you're alison is getting under control?, she answered with "the weather". She reports that her thoughts are slow and her energy low, but this is not congruent with her presentation. She denies hallucinations or SI/HI. She did revoke her 72 hr notice yesterday with encouragement from the staff. Review of Systems Constitutional: + problem reported (disorganized hyperactivity) ENT: No dental problems, No hearing loss, No nasal symptoms, No problem reported, No sore throat, No tinnitus, No trouble swallowing, No unusual epistaxis Respiratory: No cough, No dyspnea at rest, No dyspnea on exertion, No hemoptysis, No problem reported, No shortness of breath, No sputum, No wheezing Cardiovascular: No PND, No chest pain, No claudication, No edema, No orthopnea , No palpitations, No problem reported Abdomen: No GI bleeding, No constipation, No diarrhea, No nausea, No pain, No problem reported, No vomiting Musculoskeletal: No calf pain, No joint pain, No muscle pain, No problem reported, No swelling Neurologic: No balance problems, No memory loss, No numbness/tingling, No paralysis, No problem reported, No vertigo, No weakness Psychiatric: + problem reported (alison) Integumentary: No bleeding, No color change, No itch, No new/changing skin lesions, No problem reported, No rash Sleep Information Total Hours of Sleep: 4.00 Meal Information Percent of Breakfast Consumed: 70 Percent of Lunch Consumed: 100 Percent of Dinner Consumed: 75 Mental Status Exam During interview pt is: alert and oriented, cooperative Appearance: appropriately dressed, disheveled Eye contact is: fair Motor behavior is: psychomotor agitation (restless) Speech: is pressured (hyperverbal) Affect: blunted (appearing tired) Mood is: other ("fine") Thought process: other (fast thoughts, disorganized) Thought content: paranoid, other (without insight) Suicidal thought are: denied Homicidal thoughts are: denied Hallucinations: denies auditory, denies visual Cognition: language grossly intact, other (memory and attention are impaired) Intelligence estimated to be: average Insight: impaired Judgement: impaired Impression Slowing down some but still manicky with racing disorganized thoughts and behaviors. Willingly takes prns when needed having had 3 prns of Haldol 10 mg. in the last 24 hrs. Will further increase her seroquel to 200-200-400 starting tonight. She has revoked her 72 hr notice and so remains on a voluntary. Plan (1) Bipolar 1 disorder Current episode manic with psychosis. -Continue quetiapine which was increased on admission to 100 mg twice a day and 300 mg daily at bedtime to target manic symptoms. -Fasting lipid profile was checked 06/09/2016, and showed elevated cholesterol of 300 and elevated triglycerides of 407. Hemoglobin A1c was elevated at 6.0. This will require ongoing monitoring as an outpatient, and perhaps she could be tapered off of quetiapine once put back on lithium and stabilized. -Taper off of oxcarbazepine, which has not been an adequate mood stabilizer for her, and load with lithium tonight - 30mg/kg in 3 divided doses, with trough level tomorrow. -He knew haloperidol, lorazepam, and benztropine as needed for acute a and psychosis. -Get records from outpatient psychiatrist and coordinate care. -Family meeting with and possibly adult children. -Encourage increased outpatient supports, including therapy and case management. 10/07 - Increase Seroquel to 200-200-300 mg - Loaded with li, level 1.0. Start lithobid 900 mg. HS with level in 5 days. - Continue seroquel prn 10/08 - Increase Seroquel to 200-200-400 mg - Continue other meds. (2) Hypothyroidism Continue home dose of levothyroxine. (3) Hyperlipidemia Continue home dose of atorvastatin. Discharge / Aftercare Planning Primary Care Physician: Name: Dr Astorga Psychiatrist: Name: Dr Chadwick Therapist: Name: [place] Animal [employer] Licensing Worker: Name: None Visit Code E&M Code: 58378 Inventory Assets Strengths: Has stable housing, supportive family Risk Factors Assessment : Yes /single/: No Higher / Fall in social status: No Health problems: No Mental Health Diagnoses: Yes Substance use disorders: No Previous attempt: No Family history of suicide: No Previous psychiatric stay: Yes Hopelessness: No Smoker: No Protective Factors Assessment Zoroastrianism beliefs: Yes : Yes Responsible for young children: No Employed: No Supportive family: Yes Good rapport with provider: Yes Data Vital Signs Last 24 Hrs: Date Time Temp Pulse Resp B/P Pulse Ox O2 Delivery O2 Flow Rate FiO2 10/08/16 07:08 36.4 78 16 123/84 79 122/77 Meds Administered Last 24 Hrs: Meds Administered (Past 24Hrs) Medications (Trade) Dose Ordered Sig/Azeem Route Start Time Stop Time Status Last Admin Dose Admin Oxcarbazepine (Trileptal Tab) 150 mg Taper BID PO 10/06/16 22:00 10/10/16 21:59 10/08/16 07:54 150 MG [place] Carbonate (Lithobid Tab) 600 mg TODAY@1600,1800 PO 10/06/16 16:00 10/06/16 18:01 DC 10/06/16 18:05 600 MG [place] Carbonate (Lithobid Tab) 900 mg TODAY@2000 PO 10/06/16 20:00 10/06/16 20:02 DC 10/06/16 19:49 900 MG Quetiapine Fumarate (seroQUEL TAB) 200 mg BID@0900,1400 PO 10/07/16 14:00 11/06/16 13:59 10/08/16 07:54 200 MG Quetiapine Fumarate (seroQUEL TAB) 100 mg TODAY@0945 STAT PO 10/07/16 10:42 10/07/16 10:43 DC 10/07/16 10:48 100 MG [place] Carbonate (Lithobid Tab) 900 mg HS PO 10/07/16 22:00 11/06/16 21:59 10/07/16 21:42 900 MG Haloperidol (Haldol Tab) 10 mg Q4H PRN PO 10/07/16 13:00 11/06/16 12:59 10/08/16 10:10 10 MG Lab Results Last 24 Hrs: 10/05/16 12:50 Red Blood Count 4.70, Mean Corpuscular Volume 88.9, Mean Corpuscular Hemoglobin 29.8, Mean Corpuscular Hemoglobin Concent 33.5, Mean Platelet Volume 10.9, Neutrophils (%) (Auto) 63.2, Lymphocytes (%) (Auto) 28.1, Monocytes (%) (Auto) 6.4, Eosinophils (%) (Auto) 1.7, Basophils (%) (Auto) 0.3, Neutrophils # (Auto) 4.87, Lymphocytes # (Auto) 2.16, Monocytes # (Auto) 0.49, Eosinophils # (Auto) 0.13, Basophils # (Auto) 0.02 10/05/16 12:50 Test 10/05/16 12:14 10/05/16 12:50 10/07/16 08:10 Urine Color DK YELLOW Urine Appearance CLEAR (CLEAR) Urine pH 5.5 (4.5-7.5) Urine Specific [place] 1.026 (1.000-1.030) Urine Protein NEG (NEG) Urine Glucose (UA) NEG (NEG) Urine Ketones TRACE (NEG) Urine Occult Blood NEG (NEG) Urine Nitrite NEG (NEG) Urine Bilirubin NEG (NEG) Urine Urobilinogen NEG (NEG) Urine Leukocyte Esterase MODERATE (NEG) Urine WBC (Auto) 5-10 /hpf (0-5) Urine RBC (Auto) 0-4 /hpf (0-4) Urine Hyaline Casts (Auto) 5-10 /lpf (0-5) Urine Epithelial Cells (Auto) >30 /lpf (0-5) Urine Bacteria (Auto) NEG (NEG) Urine Crystals CALCIUM OXALATE (NONE Urine Mucus PRESENT (NONE PRSENT) Urine Sperm (Auto) PRESENT Urine Test NEG (NEG) Urine Opiates Screen NEG (NEG) Urine Methadone, Qualitative NEG (NEG) Urine Barbiturates NEG (NEG) Urine Phencyclidine (PCP) Level NEG (NEG) Ur Amphetamine/Methamphetamine NEG (NEG) MDMA (Ecstasy) Screen NEG (NEG) Urine Benzodiazepines Screen NEG (NEG) Urine Cocaine Metabolite NEG (NEG) Urine Marijuana (THC) NEG (NEG) White Blood Count 7.69 K/uL (4.8-10.8) Red Blood Count 4.70 M/uL (4.2-5.4) Hemoglobin 14.0 g/dL (12.0-16.0) Hematocrit 41.8 % (37-47) Mean Corpuscular Volume 88.9 fL (80-100) Mean Corpuscular Hemoglobin 29.8 pg (25-34) Mean Corpuscular Hemoglobin Concent 33.5 g/dl (32-36) Platelet Count 225 K/uL (130-400) Mean Platelet Volume 10.9 fL (7.4-10.4) Neutrophils (%) (Auto) 63.2 % Lymphocytes (%) (Auto) 28.1 % Monocytes (%) (Auto) 6.4 % Eosinophils (%) (Auto) 1.7 % Basophils (%) (Auto) 0.3 % Neutrophils # (Auto) 4.87 K/uL (1.4-6.5) Lymphocytes # (Auto) 2.16 K/uL (1.2-3.4) Monocytes # (Auto) 0.49 K/uL (0.11-0.59) Eosinophils # (Auto) 0.13 K/uL (0-0.5) Basophils # (Auto) 0.02 K/uL (0-0.2) RDW Standard Deviation 39.9 fL (36.4-46.3) RDW Coefficient of Variation 12.4 % (11.5-14.5) Immature Granulocyte % (Auto) 0.3 % Immature Granulocyte # (Auto) 0.02 K/uL (0.00-0.02) Anion Gap 7.0 mmol/L (3-11) Est Creatinine Clear Calc Drug Dose 63.0 ml/min Estimated GFR () 81.7 Estimated GFR (Non- 70.5 BUN/Creatinine Ratio 14.5 (10-20) Calcium Level 8.8 mg/dl (8.5-10.1) Total Bilirubin 0.8 mg/dl (0.2-1) Direct Bilirubin 0.2 mg/dl (0-0.2) Aspartate Amino Transf (AST/SGOT) 30 U/L (15-37) Alanine Aminotransferase (ALT/SGPT) 43 U/L (12-78) Alkaline Phosphatase 118 U/L (45-117) Total Protein 7.0 gm/dl (6.4-8.2) Albumin 4.1 gm/dl (3.4-5.0) Thyroid Stimulating Hormone (TSH) 0.593 uIu/ml (0.300-4.500) Ethyl Alcohol mg/dL < 3.0 mg/dl (0-3) [place] Level 1.0 mMOL/L (0.6-1.2)
[2016-10-08] MEDS: QUETIAPINE FUMARATE 25 MG TAB PO PRN (19:47)
[2016-10-08] MEDS: LITHIUM CARBONATE SR 300 MG TAB (LITHOBID) PO SCH (20:23)
[2016-10-08] MEDS: ATORVASTATIN 20 MG TAB PO SCH (20:23)
[2016-10-08] MEDS: QUETIAPINE FUMARATE 200 MG TAB PO SCH (20:24)
[2016-10-08] MEDS: hydrOXYzine HCL 25 MG TAB PO PRN (22:49)
[2016-10-09 06:56] VITALS: BP_SYST 111; BP_SYST 118; BP_DIAS 74; BP_DIAS 79; PULSE 69; PULSE 73; TEMP 36.9
[2016-10-09] MEDS: BENZTROPINE MESYLATE 1 MG TAB PO PRN ×2 (07:11→14:43)
[2016-10-09] MEDS: LORAZEPAM 1 MG TAB PO PRN ×2 (07:11→22:57)
[2016-10-09] MEDS: LEVOTHYROXINE 100 MCG TAB PO SCH (07:11)
[2016-10-09] MEDS: HALOPERIDOL 5 MG TAB PO PRN ×3 (07:11→22:57)
[2016-10-09] MEDS: DONEPEZIL HCL 5 MG TAB PO SCH (09:27)
[2016-10-09] MEDS: OXCARBAZEPINE 150 MG TAB PO SCH (09:27)
[2016-10-09] MEDS: TOCOPHERYL, DL-ALPHA 100 INTERUNIT CAP PO SCH (09:27)
[2016-10-09] MEDS: QUETIAPINE FUMARATE 100 MG TAB PO SCH ×2 (09:27→13:35)
--- NOTE | 2016-10-09 11:40 | Psychiatric Progress Notes ---
Progress Note Date of Service October 09, 2016. Interval History 56 yo woman admitted on 10/05/16 in a manic episode. She has had multiple hospitalizations since coming off of lithium. Chief Complaint "I feel good". Subjective Patient was seen & assessed interval progress reviewed with nursing. Pt endorsed having bipolar disorder and that is having her in the hospital but exhibited lack of insight into her admission besides able to acknowledge to some degree that she is having confusion. She denied SI and HI. She denied AH or VH, She denied feeling agitated. She endorsed feeling comfortable with peers and staff. Although staff noted that she appears to have a different patient per day that tends to seem paranoid towards and/or have negative associations towards as being "bad" per staff. Per staff, this morning she was pounding doors that she had closed, and seeking ot hand out medications and to be in the role of nursing , per staff. She received prn Haldol and was more settled since then and did obtain more sleep. She was easily awakened when assessed by teletypewriter installer later this morning. She was sitting up right while being assessed and went to walk into the dayroom after the assessment with shortly going back to her room, with other peers attending group. Medicine Technologist inquired about her Aricept prescription and pt stated she takes that to help with "sleep" Nursing check with her about the Aricept and denied issues with memory or concerns about dementia related issues. Staff will check with son who is familiar with her medical care with him expected to visit today. Her psychiatrist has been rx'ing Aricept for an extended time, with comments in chart that was faxed over and fax cover as med rx'd to used to address med induced dyskinesia and also memory concerns/ slept 4.5 hours during night club manager per staff, eating has varied from none to fully eating her meals Review of Systems Constitutional: No chills, No fatigue, No fever, No problem reported, No sweats , No weakness, No weight loss Respiratory: No cough, No dyspnea at rest, No dyspnea on exertion, No hemoptysis, No problem reported, No shortness of breath, No sputum, No wheezing Abdomen: No GI bleeding, No constipation, No diarrhea, No nausea, No pain, No problem reported, No vomiting Musculoskeletal: No calf pain, No joint pain, No muscle pain, No problem reported, No swelling Neurologic: + problem reported (confusion) Sleep Information Total Hours of Sleep: 4.50 Meal Information Percent of Breakfast Consumed: 0 Percent of Lunch Consumed: 100 Percent of Dinner Consumed: 0 Mental Status Exam During interview pt is: alert and oriented, cooperative Appearance: appropriately dressed, disheveled Eye contact is: fair Motor behavior is: psychomotor agitation (restless) Speech: normal in rate, rhythm & volume Affect: blunted (appearing tired) Mood is: other ("good") Thought process: other (disorganized) Thought content: paranoid, other (without insight) Suicidal thought are: denied Homicidal thoughts are: denied Hallucinations: denies auditory, denies visual Cognition: language grossly intact, other (memory and attention are impaired, unable to spell world backwards, d.o. then stops stating can't do it) Intelligence estimated to be: average Insight: impaired Judgement: impaired Impression Slowing down some but still manicky with racing disorganized thoughts and behaviors. Willingly takes prns when needed having had 3 prns of Haldol 10 mg. in the last 24 hrs. Will further increase her seroquel to 200-200-400 starting tonight. She has revoked her 72 hr notice and so remains on a voluntary. Plan (1) Bipolar 1 disorder Current episode manic with psychosis. -Continue quetiapine which was increased on admission to 100 mg twice a day and 300 mg daily at bedtime to target manic symptoms. -Fasting lipid profile was checked 06/09/2016, and showed elevated cholesterol of 300 and elevated triglycerides of 407. Hemoglobin A1c was elevated at 6.0. This will require ongoing monitoring as an outpatient, and perhaps she could be tapered off of quetiapine once put back on lithium and stabilized. -Taper off of oxcarbazepine, which has not been an adequate mood stabilizer for her, and load with lithium tonight - 30mg/kg in 3 divided doses, with trough level tomorrow. -He knew haloperidol, lorazepam, and benztropine as needed for acute a and psychosis. -Get records from outpatient psychiatrist and coordinate care. -Family meeting with and possibly adult children. -Encourage increased outpatient supports, including therapy and case management. 10/07 - Increase Seroquel to 200-200-300 mg - Loaded with li, level 1.0. Start lithobid 900 mg. HS with level in 5 days. - Continue seroquel prn 10/08 - Increase Seroquel to 200-200-400 mg - Continue other meds. 10/09 - continue meds scheduled and prn unchanged for now, lithium level for 10/12 (2) Hypothyroidism Continue home dose of levothyroxine. (3) Hyperlipidemia Continue home dose of atorvastatin. Discharge / Aftercare Planning Primary Care Physician: Name: Dr Astorga Psychiatrist: Name: Dr Chadwick Therapist: Name: None Fleet Service Manager: Name: None Visit Code E&M Code: 24469 Inventory Assets Strengths: Has stable housing, supportive family Risk Factors Assessment : Yes /single/: No Higher / Fall in social status: No Health problems: No Mental Health Diagnoses: Yes Substance use disorders: No Previous attempt: No Family history of suicide: No Previous psychiatric stay: Yes Hopelessness: No Smoker: No Protective Factors Assessment Adventist beliefs: Yes : Yes Responsible for young children: No Employed: No Supportive family: Yes Good rapport with provider: Yes Data Vital Signs Last 24 Hrs: Date Time Temp Pulse Resp B/P Pulse Ox O2 Delivery O2 Flow Rate FiO2 10/09/16 06:56 36.9 69 16 111/74 73 118/79 Meds Administered Last 24 Hrs: Meds Administered (Past 24Hrs) Medications (Trade) Dose Ordered Sig/Azeem Route Start Time Stop Time Status Last Admin Dose Admin Quetiapine Fumarate (seroQUEL TAB) 200 mg BID@0900,1400 PO 10/07/16 14:00 11/06/16 13:59 10/09/16 09:27 200 MG [place] Carbonate (Lithobid Tab) 900 mg HS PO 10/07/16 22:00 11/06/16 21:59 10/08/16 20:23 900 MG Haloperidol (Haldol Tab) 10 mg Q4H PRN PO 10/07/16 13:00 11/06/16 12:59 10/09/16 07:11 10 MG Quetiapine Fumarate (seroQUEL TAB) 400 mg HS PO 10/08/16 22:00 11/07/16 21:59 10/08/16 20:24 400 MG
[2016-10-09] MEDS: ACETAMINOPHEN 325 MG TAB PO PRN (19:21)
[2016-10-09] MEDS: ATORVASTATIN 20 MG TAB PO SCH (21:10)
[2016-10-09] MEDS: LITHIUM CARBONATE SR 300 MG TAB (LITHOBID) PO SCH (21:10)
[2016-10-09] MEDS: QUETIAPINE FUMARATE 200 MG TAB PO SCH (21:10)
[2016-10-09] MEDS: hydrOXYzine HCL 25 MG TAB PO PRN (23:38)
[2016-10-10] MEDS: QUETIAPINE FUMARATE 25 MG TAB PO PRN (06:22)
[2016-10-10 06:31] VITALS: BP_SYST 117; BP_SYST 129; BP_DIAS 81; BP_DIAS 87; PULSE 72; PULSE 82; TEMP 36.9
[2016-10-10] MEDS: OXCARBAZEPINE 150 MG TAB PO SCH (08:49)
[2016-10-10] MEDS: TOCOPHERYL, DL-ALPHA 100 INTERUNIT CAP PO SCH (08:49)
[2016-10-10] MEDS: QUETIAPINE FUMARATE 100 MG TAB PO SCH ×2 (08:49→14:03)
[2016-10-10] MEDS: DONEPEZIL HCL 5 MG TAB PO SCH (08:49)
[2016-10-10] MEDS: LEVOTHYROXINE 100 MCG TAB PO SCH (08:49)
[2016-10-10] MEDS: LORAZEPAM 1 MG TAB PO PRN ×2 (08:57→17:02)
[2016-10-10] MEDS: BENZTROPINE MESYLATE 1 MG TAB PO PRN (09:27)
[2016-10-10] MEDS: HALOPERIDOL 5 MG TAB PO PRN ×2 (11:03→20:09)
--- NOTE | 2016-10-10 17:04 | Psychiatric Progress Notes ---
Progress Note Date of Service October 10, 2016. Interval History 56 yo woman admitted on 10/05/16 in a manic episode. She has had multiple hospitalizations since coming off of lithium. Chief Complaint "I want to walk around". Subjective Patient was seen & assessed interval progress reviewed with nursing. Pt having various periods of time that is with manic disorganized behaviors, pounding on doors, intrusive with peers and staff. Pt is disorganized in her thinking and behavior. States to typewriter aligner that some staff on the unit are with eyes different then hers and that means they are not good. Pt needed security to be present in morning due to her agitated and disorganized behaviors. Settles down and sleeps for a n hour or two a while after obtaining prn meds but then when gets up back to disorganized behaviors. Slept only 3 hours per staff last night, had some mild improvement in behaviors for limited time in evening shift with being more disorganized later in night last night. pt being disruptive to peers. noticed to have calm settled visit with family this afternoon denied phsyical concerns to typewriter aligner besides feeling restless and wanting to move, unclear if akathisia verus part of manic presentation as sits without psychmotor agitation when engaging with typewriter aligner Review of Systems Constitutional: No chills, No fatigue, No fever, No problem reported, No sweats , No weakness, No weight loss Respiratory: No cough, No dyspnea at rest, No dyspnea on exertion, No hemoptysis, No problem reported, No shortness of breath, No sputum, No wheezing Cardiovascular: No PND, No chest pain, No claudication, No edema, No orthopnea , No palpitations, No problem reported Abdomen: No GI bleeding, No constipation, No diarrhea, No nausea, No pain, No problem reported, No vomiting Neurologic: No balance problems, No memory loss, No numbness/tingling, No paralysis, No problem reported, No vertigo, No weakness Sleep Information Total Hours of Sleep: 3.25 Meal Information Percent of Breakfast Consumed: 90 Percent of Lunch Consumed: 25 Percent of Dinner Consumed: 100 Mental Status Exam During interview pt is: alert and oriented, cooperative Appearance: appropriately dressed, disheveled Eye contact is: fair Speech: normal in rate, rhythm & volume Affect: blunted Mood is: other ("good") Thought process: other (disorganized) Thought content: paranoid, other (without insight) Suicidal thought are: denied Homicidal thoughts are: denied Hallucinations: denies auditory, denies visual Cognition: language grossly intact, other (memory and attention are impaired, unable to spell world backwards, d.o. then stops stating can't do it) Intelligence estimated to be: average Insight: impaired Judgement: impaired Impression Slowing down some but still manicky with racing disorganized thoughts and behaviors. Willingly takes prns when needed having had 3 prns of Haldol 10 mg. in the last 24 hrs. Will further increase her seroquel to 200-200-400 starting tonight. She has revoked her 72 hr notice and so remains on a voluntary. Plan (1) Bipolar 1 disorder Current episode manic with psychosis. -Continue quetiapine which was increased on admission to 100 mg twice a day and 300 mg daily at bedtime to target manic symptoms. -Fasting lipid profile was checked 06/09/2016, and showed elevated cholesterol of 300 and elevated triglycerides of 407. Hemoglobin A1c was elevated at 6.0. This will require ongoing monitoring as an outpatient, and perhaps she could be tapered off of quetiapine once put back on lithium and stabilized. -Taper off of oxcarbazepine, which has not been an adequate mood stabilizer for her, and load with lithium tonight - 30mg/kg in 3 divided doses, with trough level tomorrow. -He knew haloperidol, lorazepam, and benztropine as needed for acute a and psychosis. -Get records from outpatient psychiatrist and coordinate care. -Family meeting with and possibly adult children. -Encourage increased outpatient supports, including therapy and case management. 10/07 - Increase Seroquel to 200-200-300 mg - Loaded with li, level 1.0. Start lithobid 900 mg. HS with level in 5 days. - Continue seroquel prn 10/08 - Increase Seroquel to 200-200-400 mg - Continue other meds. 10/09 - continue meds scheduled and prn unchanged for now, lithium level for 10/12 10/10 -adjusted ativan to 1mg tid prn from 1 mg bid dosing -maintained other meds for now, including other prn's (2) Hypothyroidism Continue home dose of levothyroxine. (3) Hyperlipidemia Continue home dose of atorvastatin. Discharge / Aftercare Planning Primary Care Physician: Name: Dr Astorga Psychiatrist: Name: Dr Chadwick Therapist: Name: None Pharmacy Clinical Coordinator: Name: None Visit Code E&M Code: 42053 Inventory Assets Strengths: Has stable housing, supportive family Risk Factors Assessment : Yes /single/: No Higher / Fall in social status: No Health problems: No Mental Health Diagnoses: Yes Substance use disorders: No Previous attempt: No Family history of suicide: No Previous psychiatric stay: Yes Hopelessness: No Smoker: No Protective Factors Assessment Hoahaoism beliefs: Yes : Yes Responsible for young children: No Employed: No Supportive family: Yes Good rapport with provider: Yes Data Vital Signs Last 24 Hrs: Date Time Temp Pulse Resp B/P Pulse Ox O2 Delivery O2 Flow Rate FiO2 10/10/16 06:31 36.9 82 17 129/87 72 117/81 Meds Administered Last 24 Hrs: Meds Administered (Past 24Hrs) Medications (Trade) Dose Ordered Sig/Azeem Route Start Time Stop Time Status Last Admin Dose Admin Quetiapine Fumarate (seroQUEL TAB) 400 mg HS PO 10/08/16 22:00 11/07/16 21:59 10/09/16 21:10 400 MG
[2016-10-10] MEDS: LITHIUM CARBONATE SR 300 MG TAB (LITHOBID) PO SCH (20:14)
[2016-10-10] MEDS: ATORVASTATIN 20 MG TAB PO SCH (20:14)
[2016-10-10] MEDS: QUETIAPINE FUMARATE 200 MG TAB PO SCH (20:16)
--- NOTE | 2016-10-11 08:35 | Psychiatric Progress Notes ---
Progress Note Date of Service October 11, 2016. Interval History 56 yo woman admitted on 10/05/16 in a manic episode. She has had multiple hospitalizations since coming off of lithium. Chief Complaint "I'm fine.". Subjective Patient was seen & assessed interval progress reviewed with Treatment Team. Nursing reports that the patient had a very difficult time yesterday, and was poorly redirectable. Her behavior was disorganized, putting her belongings in a pillow case and wandering the unit. She attempted to held a door shut so a peer could not get out of her room. She has been receiving prn haldol 2-3 times per day. She has no memory of some of these behaviors, and is at times disoriented, thinking that she is at home ("I have to take care of my grandkids. "). She was able to sleep for 8 hrs last night and this AM is awake and saying she is fine to go home. She has no insight into her alison. She denies racing thoughts, but her conversation jumps rapidly from one subject to another. She admits that her energy remains high. She denies aud/vis hallucinations, denies SI/HI. Review of Systems Constitutional: No chills, No fatigue, No fever, No problem reported, No sweats , No weakness, No weight loss ENT: No dental problems, No hearing loss, No nasal symptoms, No problem reported, No sore throat, No tinnitus, No trouble swallowing, No unusual epistaxis Respiratory: No cough, No dyspnea at rest, No dyspnea on exertion, No hemoptysis, No problem reported, No shortness of breath, No sputum, No wheezing Cardiovascular: No PND, No chest pain, No claudication, No edema, No orthopnea , No palpitations, No problem reported Abdomen: No GI bleeding, No constipation, No diarrhea, No nausea, No pain, No problem reported, No vomiting Musculoskeletal: + joint pain (lt knee pain) Neurologic: No balance problems, No memory loss, No numbness/tingling, No paralysis, No problem reported, No vertigo, No weakness Psychiatric: + problem reported (alison with rapid thoughts and elevated energy) Integumentary: No bleeding, No color change, No itch, No new/changing skin lesions, No problem reported, No rash Sleep Information Total Hours of Sleep: 7.75 Meal Information Percent of Breakfast Consumed: 90 Percent of Lunch Consumed: 25 Percent of Dinner Consumed: 25 Mental Status Exam During interview pt is: alert and oriented, cooperative Appearance: appropriately dressed Eye contact is: fair Motor behavior is: psychomotor agitation (moderate, pacing, restless) Speech: normal in rate, rhythm & volume Affect: blunted Mood is: other ("fine") Thought process: flight of ideas, other (disorganized) Thought content: paranoid, other (without insight) Suicidal thought are: denied Homicidal thoughts are: denied Hallucinations: denies auditory, denies visual Cognition: language grossly intact, other (memory and attention are impaired, unable to spell world backwards, d.o. then stops stating can't do it) Intelligence estimated to be: average Insight: impaired Judgement: impaired Impression Slowing down some but still manicky with racing disorganized thoughts and behaviors. Willingly takes prns when needed having had 3 prns of Haldol 10 mg. in the last 24 hrs. Will further increase her seroquel to 200-200-400 starting tonight. Today will also schedule haldol 10 mg. TID since she has been receiving this on a prn basis. Plan (1) Bipolar 1 disorder Current episode manic with psychosis. -Continue quetiapine which was increased on admission to 100 mg twice a day and 300 mg daily at bedtime to target manic symptoms. -Fasting lipid profile was checked 06/09/2016, and showed elevated cholesterol of 300 and elevated triglycerides of 407. Hemoglobin A1c was elevated at 6.0. This will require ongoing monitoring as an outpatient, and perhaps she could be tapered off of quetiapine once put back on lithium and stabilized. -Taper off of oxcarbazepine, which has not been an adequate mood stabilizer for her, and load with lithium tonight - 30mg/kg in 3 divided doses, with trough level tomorrow. -He knew haloperidol, lorazepam, and benztropine as needed for acute a and psychosis. -Get records from outpatient psychiatrist and coordinate care. -Family meeting with and possibly adult children. -Encourage increased outpatient supports, including therapy and case management. 10/07 - Increase Seroquel to 200-200-300 mg - Loaded with li, level 1.0. Start lithobid 900 mg. HS with level in 5 days. - Continue seroquel prn 10/08 - Increase Seroquel to 200-200-400 mg - Continue other meds. 10/09 - continue meds scheduled and prn unchanged for now, lithium level for 10/12 10/10 -adjusted ativan to 1mg tid prn from 1 mg bid dosing -maintained other meds for now, including other prn's 10/11 - Schedule haldol 10 mg. TID (2) Hypothyroidism Continue home dose of levothyroxine. (3) Hyperlipidemia Continue home dose of atorvastatin. Discharge / Aftercare Planning Primary Care Physician: Name: Dr Astorga Psychiatrist: Name: Dr Chadwick Therapist: Name: Ansley Bar Captain: Name: None Visit Code E&M Code: 07100 Inventory Assets Strengths: Has stable housing, supportive family Risk Factors Assessment : Yes /single/: No Higher / Fall in social status: No Health problems: No Mental Health Diagnoses: Yes Substance use disorders: No Previous attempt: No Family history of suicide: No Previous psychiatric stay: Yes Hopelessness: No Smoker: No Protective Factors Assessment Sikh beliefs: Yes : Yes Responsible for young children: No Employed: No Supportive family: Yes Good rapport with provider: Yes Data Vital Signs Last 24 Hrs: Last Vital Signs Documentation Date Time Temp Pulse Resp B/P Pulse Ox O2 Delivery O2 Flow Rate FiO2 10/10/16 06:31 36.9 82 17 129/87 72 117/81 10/05/16 15:05 95 Room Air Meds Administered Last 24 Hrs: Meds Administered (Past 24Hrs) Medications (Trade) Dose Ordered Sig/Azeem Route Start Time Stop Time Status Last Admin Dose Admin Lorazepam (Ativan Tab) 1 mg TID PRN PO 10/10/16 12:00 11/09/16 11:59 10/10/16 17:02 1 MG Lab Results Last 24 Hrs: 10/05/16 12:50 Red Blood Count 4.70, Mean Corpuscular Volume 88.9, Mean Corpuscular Hemoglobin 29.8, Mean Corpuscular Hemoglobin Concent 33.5, Mean Platelet Volume 10.9, Neutrophils (%) (Auto) 63.2, Lymphocytes (%) (Auto) 28.1, Monocytes (%) (Auto) 6.4, Eosinophils (%) (Auto) 1.7, Basophils (%) (Auto) 0.3, Neutrophils # (Auto) 4.87, Lymphocytes # (Auto) 2.16, Monocytes # (Auto) 0.49, Eosinophils # (Auto) 0.13, Basophils # (Auto) 0.02 10/05/16 12:50 Test 10/05/16 12:14 10/05/16 12:50 10/07/16 08:10 Urine Color DK YELLOW Urine Appearance CLEAR (CLEAR) Urine pH 5.5 (4.5-7.5) Urine Specific [place] 1.026 (1.000-1.030) Urine Protein NEG (NEG) Urine Glucose (UA) NEG (NEG) Urine Ketones TRACE (NEG) Urine Occult Blood NEG (NEG) Urine Nitrite NEG (NEG) Urine Bilirubin NEG (NEG) Urine Urobilinogen NEG (NEG) Urine Leukocyte Esterase MODERATE (NEG) Urine WBC (Auto) 5-10 /hpf (0-5) Urine RBC (Auto) 0-4 /hpf (0-4) Urine Hyaline Casts (Auto) 5-10 /lpf (0-5) Urine Epithelial Cells (Auto) >30 /lpf (0-5) Urine Bacteria (Auto) NEG (NEG) Urine Crystals CALCIUM OXALATE (NONE Urine Mucus PRESENT (NONE PRSENT) Urine Sperm (Auto) PRESENT Urine Test NEG (NEG) Urine Opiates Screen NEG (NEG) Urine Methadone, Qualitative NEG (NEG) Urine Barbiturates NEG (NEG) Urine Phencyclidine (PCP) Level NEG (NEG) Ur Amphetamine/Methamphetamine NEG (NEG) MDMA (Ecstasy) Screen NEG (NEG) Urine Benzodiazepines Screen NEG (NEG) Urine Cocaine Metabolite NEG (NEG) Urine Marijuana (THC) NEG (NEG) White Blood Count 7.69 K/uL (4.8-10.8) Red Blood Count 4.70 M/uL (4.2-5.4) Hemoglobin 14.0 g/dL (12.0-16.0) Hematocrit 41.8 % (37-47) Mean Corpuscular Volume 88.9 fL (80-100) Mean Corpuscular Hemoglobin 29.8 pg (25-34) Mean Corpuscular Hemoglobin Concent 33.5 g/dl (32-36) Platelet Count 225 K/uL (130-400) Mean Platelet Volume 10.9 fL (7.4-10.4) Neutrophils (%) (Auto) 63.2 % Lymphocytes (%) (Auto) 28.1 % Monocytes (%) (Auto) 6.4 % Eosinophils (%) (Auto) 1.7 % Basophils (%) (Auto) 0.3 % Neutrophils # (Auto) 4.87 K/uL (1.4-6.5) Lymphocytes # (Auto) 2.16 K/uL (1.2-3.4) Monocytes # (Auto) 0.49 K/uL (0.11-0.59) Eosinophils # (Auto) 0.13 K/uL (0-0.5) Basophils # (Auto) 0.02 K/uL (0-0.2) RDW Standard Deviation 39.9 fL (36.4-46.3) RDW Coefficient of Variation 12.4 % (11.5-14.5) Immature Granulocyte % (Auto) 0.3 % Immature Granulocyte # (Auto) 0.02 K/uL (0.00-0.02) Anion Gap 7.0 mmol/L (3-11) Est Creatinine Clear Calc Drug Dose 63.0 ml/min Estimated GFR () 81.7 Estimated GFR (Non- 70.5 BUN/Creatinine Ratio 14.5 (10-20) Calcium Level 8.8 mg/dl (8.5-10.1) Total Bilirubin 0.8 mg/dl (0.2-1) Direct Bilirubin 0.2 mg/dl (0-0.2) Aspartate Amino Transf (AST/SGOT) 30 U/L (15-37) Alanine Aminotransferase (ALT/SGPT) 43 U/L (12-78) Alkaline Phosphatase 118 U/L (45-117) Total Protein 7.0 gm/dl (6.4-8.2) Albumin 4.1 gm/dl (3.4-5.0) Thyroid Stimulating Hormone (TSH) 0.593 uIu/ml (0.300-4.500) Ethyl Alcohol mg/dL < 3.0 mg/dl (0-3) [place] Level 1.0 mMOL/L (0.6-1.2)
[2016-10-11] MEDS: DONEPEZIL HCL 5 MG TAB PO SCH (08:43)
[2016-10-11] MEDS: LEVOTHYROXINE 100 MCG TAB PO SCH (08:43)
[2016-10-11] MEDS: QUETIAPINE FUMARATE 100 MG TAB PO SCH ×2 (08:43→14:17)
[2016-10-11] MEDS: TOCOPHERYL, DL-ALPHA 100 INTERUNIT CAP PO SCH (08:43)
[2016-10-11] MEDS: HALOPERIDOL 5 MG TAB PO PRN (08:44)
[2016-10-11] MEDS: BENZTROPINE MESYLATE 1 MG TAB PO PRN (08:45)
[2016-10-11] MEDS: HALOPERIDOL 5 MG TAB PO SCH ×3 (09:00→21:44)
[2016-10-11] MEDS: LORAZEPAM 1 MG TAB PO PRN (09:09)
[2016-10-11] MEDS: LITHIUM CARBONATE SR 300 MG TAB (LITHOBID) PO SCH (21:44)
[2016-10-11] MEDS: QUETIAPINE FUMARATE 200 MG TAB PO SCH (21:44)
[2016-10-11] MEDS: ATORVASTATIN 20 MG TAB PO SCH (21:44)
[2016-10-12] MEDS: ACETAMINOPHEN 325 MG TAB PO PRN (06:04)
[2016-10-12] MEDS: HALOPERIDOL 5 MG TAB PO SCH ×5 (06:37→22:00)
[2016-10-12] MEDS: QUETIAPINE FUMARATE 100 MG TAB PO SCH ×3 (07:30→14:38)
[2016-10-12] MEDS: TOCOPHERYL, DL-ALPHA 100 INTERUNIT CAP PO SCH (07:30)
[2016-10-12] MEDS: LEVOTHYROXINE 100 MCG TAB PO SCH (07:30)
[2016-10-12] MEDS: DONEPEZIL HCL 5 MG TAB PO SCH (07:30)
[2016-10-12] MEDS: LORAZEPAM 1 MG TAB PO PRN (07:31)
[2016-10-12] MEDS: BENZTROPINE MESYLATE 1 MG TAB PO PRN (07:31)
[2016-10-12 09:41] VITALS: BP 124/79; PULSE 71; PULSE 73; TEMP 37
[2016-10-12] MEDS ORDERED: RISPERIDONE ODT 1MG PO ONE (12:18)
--- NOTE | 2016-10-12 12:28 | Psychiatric Progress Notes ---
Progress Note Date of Service October 12, 2016. Interval History 56 yo woman admitted on 10/05/16 in a manic episode. She has had multiple hospitalizations since coming off of lithium. Chief Complaint "Everything was going good". Subjective Patient was seen & assessed interval progress reviewed with Treatment Team. Staff report she has been labile, irritable, and restless. She is often disorganized and confused, requiring frequent redirection. Her visited , and afterward she forgot that he had been there. She appears to be eating and drinking well. She slept almost 8 hours 2 nights ago, but last night only slept 5 hours. She has been on maintenance lithium dosing for 5 days, and her trough level this morning was 1.2. She is taking medications as prescribed, and is getting multiple when necessary's, including lorazepam, haloperidol, quetiapine, and benztropine. She had rescinded her 72 hour notice, but submitted a new one today. She was scheduled to have a family meeting with her and daughter today, but was unable to tolerate it. This physician met with the clinical social worker and the patient's family at their request and answered multiple questions about diagnosis, treatment options, and prognosis. Her daughter states that she had a good response to risperidone in the past, which was used when she was hospitalized. They did not know anything about a past diagnosis of dementia or why she was on Aricept. Her daughter reports that the patient had stopped lithium on her own in the past, and that they thought her outpatient psychiatrist stopped at one point due to an issue with her kidneys, but does not know any further details. They denied that she never had a tremor , although her outpatient psychiatrist indicated to us that the lithium was stopped due to hand tremor. They agreed with the treatment recommendations to try a different antipsychotic medication. They feel that she is still very far from her baseline, and they do not feel able to manage her at home. On interview, the patient continues to display disorganized thinking, jumping from topic to topic. She says that she is fine, and is ready to go home. Attempted to review with her our concerns with her ongoing symptoms, and she agrees to switch from quetiapine to risperidone, but then states she doesn't want anything that might make her sedated because she has to babysit her grandchildren today. She then starts talking about loving her "with all my heart," and telling stories about various other family members. She endorses paranoia about staff, stating "people around here scan me. I knocked on the window, and they just smile and wave." She says she understands the reasons why we do not feel she is ready for discharge, but then immediately asks to leave, stating she feels ready and is "all better now." Sleep Information Total Hours of Sleep: 5.00 Meal Information Percent of Breakfast Consumed: 100 Percent of Lunch Consumed: 90 Percent of Dinner Consumed: 0 Mental Status Exam During interview pt is: alert and oriented, cooperative (partially; poor historian due to alison and disorganized thinking) Appearance: appropriately dressed, appeared stated age Eye contact is: good (staring intently) Motor behavior is: steady gait & station, no abnormal motor movements Speech: normal in rate, rhythm & volume Affect: blunted, anxious Mood is: other ("all better") Thought process: flight of ideas, other (disorganized, unable to finish a complete thought before jumping to a different topic, at times difficult to follow her train of thought) Thought content: paranoid, other (without insight) Suicidal thought are: denied Homicidal thoughts are: denied Hallucinations: denies auditory, denies visual Cognition: language grossly intact, other (memory and attention are impaired) Intelligence estimated to be: average Insight: impaired Judgement: impaired Impression Continues to have severe alison, with racing disorganized thoughts and erratic, restless behavior. Willingly takes prns. Has been on maintenance lithium dosing with a trough level of 1.2 today (10/12/2016), and appears to be tolerating well so far. Has had a good trial of Seroquel 800 mg daily total, without good response, so in light of previous good response to risperidone, we' ll cross taper to that agent. She has also been started on scheduled haldol 10 mg. TID since she has been receiving this on a prn basis so often with good response. She remains on a 201 voluntary commitment, but has submitted another 72 hour notice, and is unwilling to rescind, will likely need to pursue a 302 involuntary commitment. Plan (1) Bipolar 1 disorder Current episode manic with psychosis. -Continue quetiapine which was increased on admission to 100 mg twice a day and 300 mg daily at bedtime to target manic symptoms. -Fasting lipid profile was checked 06/09/2016, and showed elevated cholesterol of 300 and elevated triglycerides of 407. Hemoglobin A1c was elevated at 6.0. This will require ongoing monitoring as an outpatient, and perhaps she could be tapered off of quetiapine once put back on lithium and stabilized. -Taper off of oxcarbazepine, which has not been an adequate mood stabilizer for her, and load with lithium tonight - 30mg/kg in 3 divided doses, with trough level tomorrow. -He knew haloperidol, lorazepam, and benztropine as needed for acute a and psychosis. -Get records from outpatient psychiatrist and coordinate care. -Family meeting with and possibly adult children. -Encourage increased outpatient supports, including therapy and case management. 10/07 - Increase Seroquel to 200-200-300 mg - Loaded with li, level 1.0. Start lithobid 900 mg. HS with level in 5 days. - Continue seroquel prn 10/08 - Increase Seroquel to 200-200-400 mg - Continue other meds. 10/09 - continue meds scheduled and prn unchanged for now, lithium level for 10/12 10/10 - adjusted ativan to 1mg tid prn from 1 mg bid dosing - maintained other meds for now, including other prn's 10/11 - Schedule haldol 10 mg. TID 10/12 - Cross taper from quetiapine to risperidone M tab, starting 1 mg twice a day with a now dose. - Continue lithium 900 mg daily at bedtime. Trough level today 1.2. Has had good by mouth intake, but will repeat a BMP tomorrow to ensure good kidney function. - Continue haloperidol 10 mg prn, lorazepam 1 mg 3 times a day prn, and benztropine 1 mg prn. Change quetiapine 50 mg prn to risperidone 0.5 mg prn. - Discontinue Aricept for now, as indication unclear, no premorbid diagnosis of dementia, and may be contributing to polypharmacy and can prolong delirium. - There may be a delirium component, based on waxing and waning of confusion , worsening in the evening hours, and cognitive impairment. It is difficult to separate this from any underlying cognitive disorder and symptoms of alison. As above, we'll repeat BMP tomorrow, and will continue to monitor vital signs and assess for medical conditions that could contribute. (2) Hypothyroidism Continue home dose of levothyroxine. (3) Hyperlipidemia Continue home dose of atorvastatin. Discharge / Aftercare Planning Primary Care Physician: Name: Dr Astorga Psychiatrist: Name: Dr Chadwick Therapist: Name: None Chemistry Lecturer: Name: None Visit Code E&M Code: 46219 Inventory Assets Strengths: Has stable housing, supportive family Risk Factors Assessment : Yes /single/: No Higher / Fall in social status: No Health problems: No Mental Health Diagnoses: Yes Substance use disorders: No Previous attempt: No Family history of suicide: No Previous psychiatric stay: Yes Hopelessness: No Smoker: No Protective Factors Assessment Adventist beliefs: Yes : Yes Responsible for young children: No Employed: No Supportive family: Yes Good rapport with provider: Yes Data Vital Signs Last 24 Hrs: Date Time Temp Pulse Resp B/P Pulse Ox O2 Delivery O2 Flow Rate FiO2 10/12/16 09:41 37.0 71 16 124/79 73 10/12/16 06:22 Meds Administered Last 24 Hrs: Meds Administered (Past 24Hrs) Medications (Trade) Dose Ordered Sig/Azeem Route Start Time Stop Time Status Last Admin Dose Admin Lorazepam (Ativan Tab) 1 mg TID PRN PO 10/10/16 12:00 11/09/16 11:59 10/12/16 07:31 1 MG Haloperidol (Haldol Tab) 10 mg TID PO 10/11/16 09:00 11/10/16 08:59 10/12/16 06:37 10 MG Lab Results Last 24 Hrs: Last 24 Hours Test 10/12/16 09:19 [place] Level 1.2 mMOL/L
[2016-10-12] MEDS ORDERED: RISPERIDONE ODT 0.5MG PO PRN (12:30)
[2016-10-12] MEDS: QUETIAPINE FUMARATE 200 MG TAB PO SCH ×2 (20:24→22:00)
[2016-10-12] MEDS: ATORVASTATIN 20 MG TAB PO SCH ×2 (20:24→22:00)
[2016-10-12] MEDS: RISPERIDONE ODT 1MG PO SCH ×2 (20:24→22:00)
[2016-10-12] MEDS: LITHIUM CARBONATE SR 300 MG TAB (LITHOBID) PO SCH ×2 (20:24→22:00)
[2016-10-13] MEDS: RISPERIDONE ODT 1MG PO SCH ×2 (00:57→08:53)
[2016-10-13] MEDS: HALOPERIDOL 5 MG TAB PO SCH ×4 (00:57→18:51)
[2016-10-13] MEDS: ATORVASTATIN 20 MG TAB PO SCH ×2 (00:57→18:51)
[2016-10-13] MEDS: QUETIAPINE FUMARATE 200 MG TAB PO SCH ×2 (00:58→18:52)
[2016-10-13] MEDS: LITHIUM CARBONATE SR 300 MG TAB (LITHOBID) PO SCH ×2 (00:58→18:51)
[2016-10-13] MEDS: LORAZEPAM 1 MG TAB PO PRN (00:59)
[2016-10-13 06:51] VITALS: BP_SYST 111; BP_SYST 126; BP_DIAS 73; BP_DIAS 80; PULSE 74; PULSE 78; TEMP 36.9
[2016-10-13] MEDS: LEVOTHYROXINE 100 MCG TAB PO SCH (08:00)
[2016-10-13] MEDS: QUETIAPINE FUMARATE 100 MG TAB PO SCH ×2 (08:53→14:30)
[2016-10-13] MEDS: TOCOPHERYL, DL-ALPHA 100 INTERUNIT CAP PO SCH (08:53)
--- NOTE | 2016-10-13 09:29 | Psychiatric Progress Notes ---
Progress Note Date of Service October 13, 2016. Interval History 56 yo woman admitted on 10/05/16 in a manic episode. She has had multiple hospitalizations since coming off of lithium. Chief Complaint "I'm fine.". Subjective Patient was seen & assessed interval progress reviewed with Treatment Team. The patient has remained disorganized and irritable. She has attempted to refuse meds but so far has eventually taken them. Her thoughts are racing and she can't remember events or her own reports for more than a minute or two at a time. She believes that people are writing bad things about her that aren't true, accusing them of lying. She has not showered in 8 days, saying she will shower and then refusing to do so. She gets agitated and then wants to leave, then will calm down and accept treatment. She talks about wanting other people to care about her as much as she cares about them. Her speech is rambling, jumping from topic to topic. She does not appear to be responding to internal stimuli. Nursing reports that last evening she was agitated, pounding on doors and leung and even ripped an outlet cover off of the leung. Review of Systems Constitutional: + problem reported (restless, energized) ENT: No dental problems, No hearing loss, No nasal symptoms, No problem reported, No sore throat, No tinnitus, No trouble swallowing, No unusual epistaxis Respiratory: No cough, No dyspnea at rest, No dyspnea on exertion, No hemoptysis, No problem reported, No shortness of breath, No sputum, No wheezing Abdomen: No GI bleeding, No constipation, No diarrhea, No nausea, No pain, No problem reported, No vomiting Musculoskeletal: No calf pain, No joint pain, No muscle pain, No problem reported, No swelling Neurologic: No balance problems, No memory loss, No numbness/tingling, No paralysis, No problem reported, No vertigo, No weakness Psychiatric: + problem reported (racing thoughts, high energy, irritable) Integumentary: No bleeding, No color change, No itch, No new/changing skin lesions, No problem reported, No rash Sleep Information Total Hours of Sleep: 4.50 Meal Information Percent of Breakfast Consumed: 100 Percent of Lunch Consumed: 100 Percent of Dinner Consumed: 75 Mental Status Exam During interview pt is: alert and oriented, cooperative (partially; poor historian due to alison and disorganized thinking) Appearance: appropriately dressed, appeared stated age Eye contact is: fair Motor behavior is: steady gait & station, psychomotor agitation Speech: other (rambling, disorganized) Affect: blunted, anxious Mood is: irritable Thought process: flight of ideas, other (disorganized, unable to finish a complete thought before jumping to a different topic, at times difficult to follow her train of thought) Thought content: paranoid, other (without insight) Suicidal thought are: denied Homicidal thoughts are: denied Hallucinations: denies auditory, denies visual Cognition: language grossly intact, other (memory and attention are impaired) Intelligence estimated to be: average Insight: impaired Judgement: impaired Impression Continues to have severe alison, with racing disorganized thoughts and erratic, restless behavior. Yesterday began cross taper to risperdal after failed trial of seroquel. 72 hr notice remains in, and will consider 302 if she does not revoke as she is not reality based and cannot care for herself or her safety. Will increase Risperdal to 1.5 mg bid while tapering seroquel Plan (1) Bipolar 1 disorder Current episode manic with psychosis. -Continue quetiapine which was increased on admission to 100 mg twice a day and 300 mg daily at bedtime to target manic symptoms. -Fasting lipid profile was checked 06/09/2016, and showed elevated cholesterol of 300 and elevated triglycerides of 407. Hemoglobin A1c was elevated at 6.0. This will require ongoing monitoring as an outpatient, and perhaps she could be tapered off of quetiapine once put back on lithium and stabilized. -Taper off of oxcarbazepine, which has not been an adequate mood stabilizer for her, and load with lithium tonight - 30mg/kg in 3 divided doses, with trough level tomorrow. -He knew haloperidol, lorazepam, and benztropine as needed for acute a and psychosis. -Get records from outpatient psychiatrist and coordinate care. -Family meeting with and possibly adult children. -Encourage increased outpatient supports, including therapy and case management. 10/07 - Increase Seroquel to 200-200-300 mg - Loaded with li, level 1.0. Start lithobid 900 mg. HS with level in 5 days. - Continue seroquel prn 10/08 - Increase Seroquel to 200-200-400 mg - Continue other meds. 10/09 - continue meds scheduled and prn unchanged for now, lithium level for 10/12 10/10 - adjusted ativan to 1mg tid prn from 1 mg bid dosing - maintained other meds for now, including other prn's 10/11 - Schedule haldol 10 mg. TID 10/12 - Cross taper from quetiapine to risperidone M tab, starting 1 mg twice a day with a now dose. - Continue lithium 900 mg daily at bedtime. Trough level today 1.2. Has had good by mouth intake, but will repeat a BMP tomorrow to ensure good kidney function. - Continue haloperidol 10 mg prn, lorazepam 1 mg 3 times a day prn, and benztropine 1 mg prn. Change quetiapine 50 mg prn to risperidone 0.5 mg prn. - Discontinue Aricept for now, as indication unclear, no premorbid diagnosis of dementia, and may be contributing to polypharmacy and can prolong delirium. - There may be a delirium component, based on waxing and waning of confusion , worsening in the evening hours, and cognitive impairment. It is difficult to separate this from any underlying cognitive disorder and symptoms of alison. As above, we'll repeat BMP tomorrow, and will continue to monitor vital signs and assess for medical conditions that could contribute. 09/25 -Increase Risperdal to 1.5 mg BID - Continue taper of seroquel - Continue haldol 10 mg. TID (2) Hypothyroidism Continue home dose of levothyroxine. (3) Hyperlipidemia Continue home dose of atorvastatin. Discharge / Aftercare Planning Primary Care Physician: Name: Dr Astorga Psychiatrist: Name: Dr Chadwick Therapist: Name: None Customer Service Clerk: Name: None Visit Code E&M Code: 10665 Inventory Assets Strengths: Has stable housing, supportive family Risk Factors Assessment : Yes /single/: No Higher / Fall in social status: No Health problems: No Mental Health Diagnoses: Yes Substance use disorders: No Previous attempt: No Family history of suicide: No Previous psychiatric stay: Yes Hopelessness: No Smoker: No Protective Factors Assessment Cheondoism beliefs: Yes : Yes Responsible for young children: No Employed: No Supportive family: Yes Good rapport with provider: Yes Data Vital Signs Last 24 Hrs: Date Time Temp Pulse Resp B/P Pulse Ox O2 Delivery O2 Flow Rate FiO2 10/13/16 06:51 36.9 78 18 111/73 74 126/80 10/12/16 09:41 37.0 71 16 124/79 73 Meds Administered Last 24 Hrs: Meds Administered (Past 24Hrs) Medications (Trade) Dose Ordered Sig/Azeem Route Start Time Stop Time Status Last Admin Dose Admin Quetiapine Fumarate (seroQUEL TAB) 100 mg BID@0900,1400 PO 10/12/16 14:00 10/14/16 13:59 10/13/16 08:53 100 MG Quetiapine Fumarate (seroQUEL TAB) 200 mg Taper HS PO 10/12/16 22:00 10/16/16 21:59 10/13/16 00:58 100 MG Risperidone (Risperdal M Tab) 1 mg BID PO 10/12/16 22:00 11/11/16 21:59 10/13/16 08:53 1 MG Lab Results Last 24 Hrs: Last 24 Hours Test 10/12/16 09:19 10/13/16 08:00 [place] Level 1.2 mMOL/L
[2016-10-13 10:12] LABS: BUN/CREATININE RATIO 11.3 (10-20); CREATININE 1.1 mg/dl (0.60-1.20); POTASSIUM 3.7 mmol/L (3.5-5.1)
[2016-10-13 10:24] LABS: CALCIUM 8.7 mg/dl (8.5-10.1)
[2016-10-13] MEDS: RISPERIDONE ODT 0.5MG PO SCH (18:51)
[2016-10-14] MEDS: LORAZEPAM 1 MG TAB PO PRN ×2 (00:37→23:25)
[2016-10-14] MEDS: hydrOXYzine HCL 25 MG TAB PO PRN ×2 (00:37→23:25)
[2016-10-14 06:48] VITALS: BP_SYST 119; BP_SYST 137; BP_DIAS 78; BP_DIAS 85; PULSE 67; PULSE 79; TEMP 36.9
[2016-10-14] MEDS: LEVOTHYROXINE 100 MCG TAB PO SCH (07:53)
[2016-10-14] MEDS: HALOPERIDOL 5 MG TAB PO SCH ×3 (07:54→19:44)
[2016-10-14] MEDS: RISPERIDONE ODT 0.5MG PO SCH ×2 (07:54→19:45)
[2016-10-14] MEDS: TOCOPHERYL, DL-ALPHA 100 INTERUNIT CAP PO SCH (07:55)
[2016-10-14] MEDS: QUETIAPINE FUMARATE 100 MG TAB PO SCH (07:55)
--- NOTE | 2016-10-14 08:42 | Psychiatric Progress Notes ---
Progress Note Date of Service Oct 14, 2016. Interval History 56 yo woman admitted on 10/05/16 in a manic episode. She has had multiple hospitalizations since coming off of lithium. Chief Complaint "Not real good right now". Subjective Patient was seen & assessed interval progress reviewed with nursing. Staff report she is confused, disoriented, perseverative, intrusive, and requires frequent redirection. She needs a lot of encouragement to take medications, often refusing them, but usually takes them later with staff encouragement. She has thrown items at peers and pushed staff. She is not able to tolerate groups or participate appropriately. She continues to ask to leave and shows no insight into her condition. She is very intrusive with poor boundaries, requiring frequent redirection and reassurance. She is not able to tolerate groups and is disruptive when she goes. She threw her workbook on the floor during self-awareness group, said "the nurses messed with it," left the group, and then returned and threw a banana peel at a peer. She entered the nurses station and attempted to grab the phone from the school secretary, insisting that she was on the phone with the patient's daughter. She told staff that she believed her was spending the night on the behavioral health unit. She often goes to the unit doors and rings the doorbell repeatedly, pounds on the doors, and pounds on the windows of the nurses station. She was awake overnight, banging on the windows, intrudes into the nursing station, and repeatedly asks to leave the unit. She has required frequent prn medications for alison and agitation. She was willing to take her scheduled medications last night during her family's visit, although she was still hesitant. This morning, she reported restlessness, and seen us, and a sensation of crawling on her skin, and got benztropine, which was effective. She was seen in her room, where she was resting in the chair with her feet propped up, wrapped in blankets. She says she is having a bad day as she has a headache and her legs and feet are hurting. She was poorly engaged in interview, tired and wanting to sleep. She was informed of the 302 commitment, as she continues to refuse to rescind her ready 2 hour notice, has no insight into her illness, refuses medications at times, and repeatedly asks to leave. Sleep Information Total Hours of Sleep: 3.75 Meal Information Percent of Breakfast Consumed: 90 Percent of Lunch Consumed: 50 Percent of Dinner Consumed: 90 Mental Status Exam During interview pt is: uncooperative Appearance: appropriately dressed, appeared stated age, other (sitting in the chair with legs propped up, wrapped in blanket, resting) Eye contact is: poor Motor behavior is: no abnormal motor movements Speech: other (minimal) Affect: other (tired) Mood is: other ("not real good") Thought process: looseness of associations, other (disorganized) Thought content: paranoid, delusions (suspicious of staff), other (without insight) Suicidal thought are: denied Homicidal thoughts are: denied Hallucinations: other (patient would not answer) Cognition: language grossly intact, other (memory and attention are impaired) Intelligence estimated to be: average Insight: impaired Judgement: impaired Impression Continues to have severe alison, with racing disorganized thoughts and erratic, restless behavior. Yesterday began cross taper to risperdal after failed trial of seroquel. 72 hr notice remains in, and as she is unwilling to rescind it, will pursue a 302 involuntary commitment, as she is not reality based and cannot care for herself or her safety. We are increasing risperidone while tapering off of quetiapine. Plan (1) Bipolar 1 disorder Current episode manic with psychosis. -Continue quetiapine which was increased on admission to 100 mg twice a day and 300 mg daily at bedtime to target manic symptoms. -Fasting lipid profile was checked 06/09/2016, and showed elevated cholesterol of 300 and elevated triglycerides of 407. Hemoglobin A1c was elevated at 6.0. This will require ongoing monitoring as an outpatient, and perhaps she could be tapered off of quetiapine once put back on lithium and stabilized. -Taper off of oxcarbazepine, which has not been an adequate mood stabilizer for her, and load with lithium tonight - 30mg/kg in 3 divided doses, with trough level tomorrow. -He knew haloperidol, lorazepam, and benztropine as needed for acute a and psychosis. -Get records from outpatient psychiatrist and coordinate care. -Family meeting with and possibly adult children. -Encourage increased outpatient supports, including therapy and case management. 10/07 - Increase Seroquel to 200-200-300 mg - Loaded with li, level 1.0. Start lithobid 900 mg. HS with level in 5 days. - Continue seroquel prn 10/08 - Increase Seroquel to 200-200-400 mg - Continue other meds. 10/09 - continue meds scheduled and prn unchanged for now, lithium level for 10/12 10/10 - adjusted ativan to 1mg tid prn from 1 mg bid dosing - maintained other meds for now, including other prn's 10/11 - Schedule haldol 10 mg. TID 10/12 - Cross taper from quetiapine to risperidone M tab, starting 1 mg twice a day with a now dose. - Continue lithium 900 mg daily at bedtime. Trough level today 1.2. Has had good by mouth intake, but will repeat a BMP tomorrow to ensure good kidney function. - Continue haloperidol 10 mg prn, lorazepam 1 mg 3 times a day prn, and benztropine 1 mg prn. Change quetiapine 50 mg prn to risperidone 0.5 mg prn. - Discontinue Aricept for now, as indication unclear, no premorbid diagnosis of dementia, and may be contributing to polypharmacy and can prolong delirium. - There may be a delirium component, based on waxing and waning of confusion , worsening in the evening hours, and cognitive impairment. It is difficult to separate this from any underlying cognitive disorder and symptoms of alison. As above, we'll repeat BMP tomorrow, and will continue to monitor vital signs and assess for medical conditions that could contribute. 10/13 - Increase Risperdal to 1.5 mg BID - Continue taper of seroquel - Continue haldol 10 mg. TID 10/14 - Pursue 302 involuntary commitment as patient refusing to rescind her 72 hour notice, repeatedly asking to leave, has been physically aggressive with staff (pushing and shoving), lacks insight into the need for treatment, is manic and disorganized, confused, and refusing medications at times. Family are in favor of continued hospitalization and do not feel able to manage her at home. - Continue to limit stimulation, provide calming activities when appropriate , and use when necessary medications as needed for better behavioral and symptom control. (2) Hypothyroidism Continue home dose of levothyroxine. (3) Hyperlipidemia Continue home dose of atorvastatin. Discharge / Aftercare Planning Primary Care Physician: Name: Dr Astorga Psychiatrist: Name: Dr Cahdwick Therapist: Name: None Can Tester: Name: None Visit Code E&M Code: 77072 Inventory Assets Strengths: Has stable housing, supportive family Risk Factors Assessment : Yes /single/: No Higher / Fall in social status: No Health problems: No Mental Health Diagnoses: Yes Substance use disorders: No Previous attempt: No Family history of suicide: No Previous psychiatric stay: Yes Hopelessness: No Smoker: No Protective Factors Assessment Religion beliefs: Yes : Yes Responsible for young children: No Employed: No Supportive family: Yes Good rapport with provider: Yes Data Vital Signs Last 24 Hrs: Date Time Temp Pulse Resp B/P (MAP) Pulse Ox O2 Delivery O2 Flow Rate FiO2 10/14/16 06:48 36.9 67 18 119/78 79 137/85 Meds Administered Last 24 Hrs: Meds Administered (Past 24Hrs) Medications (Trade) Dose Ordered Sig/Azeem Route Start Time Stop Time Status Last Admin Dose Admin Quetiapine Fumarate (seroQUEL TAB) 100 mg BID@0900,1400 PO 10/12/16 14:00 10/14/16 13:59 10/14/16 07:55 100 MG Quetiapine Fumarate (seroQUEL TAB) 100 mg Taper HS PO 10/12/16 22:00 10/16/16 21:59 10/13/16 18:52 100 MG Risperidone (Risperdal M Tab) 1 mg BID PO 10/12/16 22:00 10/13/16 09:31 DC 10/13/16 08:53 1 MG Risperidone (Risperdal M Tab) 1.5 mg BID PO 10/13/16 22:00 11/12/16 21:59 10/14/16 07:54 1.5 MG Lab Results Last 24 Hrs: Last 24 Hours Test 10/13/16 09:21 Sodium Level 141 mmol/L Potassium Level 3.7 mmol/L Chloride Level 107 mmol/L Carbon Dioxide Level 24 mmol/L Anion Gap 10.0 mmol/L Blood Urea Nitrogen 12 mg/dl Creatinine 1.10 mg/dl Est Creatinine Clear Calc Drug Dose 51.6 ml/min Estimated GFR () 64.1 Estimated GFR (Non- 55.3 BUN/Creatinine Ratio 11.3 Random Glucose 212 mg/dl Calcium Level 8.7 mg/dl
[2016-10-14] MEDS: BENZTROPINE MESYLATE 1 MG TAB PO PRN (09:18)
--- NOTE | 2016-10-14 11:07 | Psychiatric Progress Notes ---
Progress Note Date of Service Oct 14, 2016. Interval History 56 yo woman admitted on 10/05/16 in a manic episode. She has had multiple hospitalizations since coming off of lithium. Chief Complaint "[]". Subjective Patient was seen & assessed interval progress reviewed with nursing. Staff report the patient has repeatedly refused to take her scheduled medications, although she will often take them later with significant staff encouragement. She is very intrusive with poor boundaries, requiring frequent redirection and reassurance. Sleep Information Total Hours of Sleep: 3.75 Meal Information Percent of Breakfast Consumed: 20 Percent of Lunch Consumed: 50 Percent of Dinner Consumed: 90 Mental Status Exam During interview pt is: alert and oriented, cooperative (partially; poor historian due to alison and disorganized thinking) Appearance: appropriately dressed, appeared stated age Eye contact is: fair Motor behavior is: steady gait & station, psychomotor agitation Speech: other (rambling, disorganized) Affect: blunted, anxious Mood is: irritable Thought process: flight of ideas, other (disorganized, unable to finish a complete thought before jumping to a different topic, at times difficult to follow her train of thought) Thought content: paranoid, other (without insight) Suicidal thought are: denied Homicidal thoughts are: denied Hallucinations: denies auditory, denies visual Cognition: language grossly intact, other (memory and attention are impaired) Intelligence estimated to be: average Insight: impaired Judgement: impaired Impression Continues to have severe alison, with racing disorganized thoughts and erratic, restless behavior. Yesterday began cross taper to risperdal after failed trial of seroquel. 72 hr notice remains in, and will consider 302 if she does not revoke as she is not reality based and cannot care for herself or her safety. Will increase Risperdal to 1.5 mg bid while tapering seroquel Plan (1) Bipolar 1 disorder Current episode manic with psychosis. -Continue quetiapine which was increased on admission to 100 mg twice a day and 300 mg daily at bedtime to target manic symptoms. -Fasting lipid profile was checked 06/09/2016, and showed elevated cholesterol of 300 and elevated triglycerides of 407. Hemoglobin A1c was elevated at 6.0. This will require ongoing monitoring as an outpatient, and perhaps she could be tapered off of quetiapine once put back on lithium and stabilized. -Taper off of oxcarbazepine, which has not been an adequate mood stabilizer for her, and load with lithium tonight - 30mg/kg in 3 divided doses, with trough level tomorrow. -He knew haloperidol, lorazepam, and benztropine as needed for acute a and psychosis. -Get records from outpatient psychiatrist and coordinate care. -Family meeting with and possibly adult children. -Encourage increased outpatient supports, including therapy and case management. 10/07 - Increase Seroquel to 200-200-300 mg - Loaded with li, level 1.0. Start lithobid 900 mg. HS with level in 5 days. - Continue seroquel prn 10/08 - Increase Seroquel to 200-200-400 mg - Continue other meds. 10/09 - continue meds scheduled and prn unchanged for now, lithium level for 10/12 10/10 - adjusted ativan to 1mg tid prn from 1 mg bid dosing - maintained other meds for now, including other prn's 10/11 - Schedule haldol 10 mg. TID 10/12 - Cross taper from quetiapine to risperidone M tab, starting 1 mg twice a day with a now dose. - Continue lithium 900 mg daily at bedtime. Trough level today 1.2. Has had good by mouth intake, but will repeat a BMP tomorrow to ensure good kidney function. - Continue haloperidol 10 mg prn, lorazepam 1 mg 3 times a day prn, and benztropine 1 mg prn. Change quetiapine 50 mg prn to risperidone 0.5 mg prn. - Discontinue Aricept for now, as indication unclear, no premorbid diagnosis of dementia, and may be contributing to polypharmacy and can prolong delirium. - There may be a delirium component, based on waxing and waning of confusion , worsening in the evening hours, and cognitive impairment. It is difficult to separate this from any underlying cognitive disorder and symptoms of alison. As above, we'll repeat BMP tomorrow, and will continue to monitor vital signs and assess for medical conditions that could contribute. 10/13 - Increase Risperdal to 1.5 mg BID - Continue taper of seroquel - Continue haldol 10 mg. TID 10/14 - Pursue 302 involuntary commitment as patient refusing to rescind her 72 hour notice, repeatedly asking to leave, has been physically aggressive with staff (pushing and shoving), lacks insight into the need for treatment, is manic and disorganized, confused, and refusing medications at times. Family are in favor of continued hospitalization and do not feel able to manage her at home. (2) Hypothyroidism Continue home dose of levothyroxine. (3) Hyperlipidemia Continue home dose of atorvastatin. Discharge / Aftercare Planning Primary Care Physician: Name: Dr Astorga Psychiatrist: Name: Dr Chadwick Therapist: Name: None Board Saw Runner: Name: None Inventory Assets Strengths: Has stable housing, supportive family Risk Factors Assessment : Yes /single/: No Higher / Fall in social status: No Health problems: No Mental Health Diagnoses: Yes Substance use disorders: No Previous attempt: No Family history of suicide: No Previous psychiatric stay: Yes Hopelessness: No Smoker: No Protective Factors Assessment Roman Catholic beliefs: Yes : Yes Responsible for young children: No Employed: No Supportive family: Yes Good rapport with provider: Yes Data Vital Signs Last 24 Hrs: Date Time Temp Pulse Resp B/P (MAP) Pulse Ox O2 Delivery O2 Flow Rate FiO2 10/14/16 06:48 36.9 67 18 119/78 79 137/85 Meds Administered Last 24 Hrs: Meds Administered (Past 24Hrs) Medications (Trade) Dose Ordered Sig/Azeem Route Start Time Stop Time Status Last Admin Dose Admin Quetiapine Fumarate (seroQUEL TAB) 100 mg BID@0900,1400 PO 10/12/16 14:00 10/14/16 13:59 10/14/16 07:55 100 MG Quetiapine Fumarate (seroQUEL TAB) 100 mg Taper HS PO 10/12/16 22:00 10/16/16 21:59 10/13/16 18:52 100 MG Risperidone (Risperdal M Tab) 1 mg BID PO 10/12/16 22:00 10/13/16 09:31 DC 10/13/16 08:53 1 MG Risperidone (Risperdal M Tab) 1.5 mg BID PO 10/13/16 22:00 11/12/16 21:59 10/14/16 07:54 1.5 MG
[2016-10-14] MEDS: ACETAMINOPHEN 325 MG TAB PO PRN (13:37)
[2016-10-14] MEDS: ATORVASTATIN 20 MG TAB PO SCH (19:44)
[2016-10-14] MEDS: QUETIAPINE FUMARATE 200 MG TAB PO SCH (19:45)
[2016-10-14] MEDS: LITHIUM CARBONATE SR 300 MG TAB (LITHOBID) PO SCH (19:45)
[2016-10-15 07:08] VITALS: BP_SYST 132; BP_SYST 142; BP_DIAS 85; BP_DIAS 92; PULSE 72; PULSE 76; TEMP 36.9
[2016-10-15] MEDS: LEVOTHYROXINE 100 MCG TAB PO SCH (07:19)
[2016-10-15] MEDS: HALOPERIDOL 5 MG TAB PO SCH ×3 (10:05→22:23)
[2016-10-15] MEDS: RISPERIDONE ODT 0.5MG PO SCH ×2 (10:05→22:24)
[2016-10-15] MEDS: TOCOPHERYL, DL-ALPHA 100 INTERUNIT CAP PO SCH (10:05)
[2016-10-15] MEDS: ACETAMINOPHEN 325 MG TAB PO PRN (13:38)
--- NOTE | 2016-10-15 15:14 | Psychiatric Progress Notes ---
Progress Note Date of Service Oct 15, 2016. Interval History 56 yo woman admitted on 10/05/16 in a manic episode. She has had multiple hospitalizations since coming off of lithium. Chief Complaint "I'm feeling better and my wants me home". Subjective Patient was seen & assessed interval progress reviewed with Treatment Team. Much more redirectible and less focussed on scientology and elopement since my last contact with patient. She expressed some anxiety/fear bordering on paranoia last pm re: an copatient. Tremor noted on exam, she states that doesn't bother her when directly questioned (initially denied side effects). Backus dosing primarily at night so level of lithium throughout day likely less than the 1.2 level. Daughter in for meeting today and expressed that she feels patient is nearing baseline, at least in family interactions. Review of Systems Psych: denies symptoms other than stated above Constitutional: denied Cardiovascular: denied GI: denied Neurologic: denied Remainder of 10 body systems also reviewed and denied other than noted above. Sleep Information Total Hours of Sleep: 5.00 Meal Information Percent of Breakfast Consumed: 50 Percent of Lunch Consumed: 50 Percent of Dinner Consumed: 50 Mental Status Exam During interview pt is: cooperative Appearance: appropriately dressed, appeared stated age Eye contact is: fair Motor behavior is: no abnormal motor movements Speech: normal in rate, rhythm & volume Affect: constricted Mood is: other ("better") Thought process: looseness of associations, other (disorganized) Thought content: paranoid, other (without insight) Suicidal thought are: denied Homicidal thoughts are: denied Hallucinations: other (did not appear to be responding to internal stimuli at time of the assessment) Cognition: language grossly intact, other (memory and attention are impaired) Intelligence estimated to be: average Insight: impaired Judgement: impaired Impression Continues to have symptoms of alison, though racing disorganized thoughts and erratic, restless behavior are improving. Cross tapering to risperdal after failed trial of seroquel. 302 involuntary commitment to 10/19 at 10 am. She remains on [facility]PR due to unpredictable behavior and poor boundaries/ability to tolerate peers due to alison. Plan (1) Bipolar 1 disorder Current episode manic with psychosis. -Continue quetiapine which was increased on admission to 100 mg twice a day and 300 mg daily at bedtime to target manic symptoms. -Fasting lipid profile was checked 06/09/2016, and showed elevated cholesterol of 300 and elevated triglycerides of 407. Hemoglobin A1c was elevated at 6.0. This will require ongoing monitoring as an outpatient, and perhaps she could be tapered off of quetiapine once put back on lithium and stabilized. -Taper off of oxcarbazepine, which has not been an adequate mood stabilizer for her, and load with lithium tonight - 30mg/kg in 3 divided doses, with trough level tomorrow. -He knew haloperidol, lorazepam, and benztropine as needed for acute a and psychosis. -Get records from outpatient psychiatrist and coordinate care. -Family meeting with and possibly adult children. -Encourage increased outpatient supports, including therapy and case management. 10/07 - Increase Seroquel to 200-200-300 mg - Loaded with li, level 1.0. Start lithobid 900 mg. HS with level in 5 days. - Continue seroquel prn 10/08 - Increase Seroquel to 200-200-400 mg - Continue other meds. 10/09 - continue meds scheduled and prn unchanged for now, lithium level for 10/12 10/10 - adjusted ativan to 1mg tid prn from 1 mg bid dosing - maintained other meds for now, including other prn's 10/11 - Schedule haldol 10 mg. TID 10/12 - Cross taper from quetiapine to risperidone M tab, starting 1 mg twice a day with a now dose. - Continue lithium 900 mg daily at bedtime. Trough level today 1.2. Has had good by mouth intake, but will repeat a BMP tomorrow to ensure good kidney function. - Continue haloperidol 10 mg prn, lorazepam 1 mg 3 times a day prn, and benztropine 1 mg prn. Change quetiapine 50 mg prn to risperidone 0.5 mg prn. - Discontinue Aricept for now, as indication unclear, no premorbid diagnosis of dementia, and may be contributing to polypharmacy and can prolong delirium. - There may be a delirium component, based on waxing and waning of confusion , worsening in the evening hours, and cognitive impairment. It is difficult to separate this from any underlying cognitive disorder and symptoms of alison. As above, we'll repeat BMP tomorrow, and will continue to monitor vital signs and assess for medical conditions that could contribute. 10/13 - Increase Risperdal to 1.5 mg BID - Continue taper of seroquel - Continue haldol 10 mg. TID 10/14 - Pursue 302 involuntary commitment as patient refusing to rescind her 72 hour notice, repeatedly asking to leave, has been physically aggressive with staff (pushing and shoving), lacks insight into the need for treatment, is manic and disorganized, confused, and refusing medications at times. Family are in favor of continued hospitalization and do not feel able to manage her at home. - Continue to limit stimulation, provide calming activities when appropriate , and use when necessary medications as needed for better behavioral and symptom control. 10/15 --given that 302 expires early on 10/19 and 10/16 and 10/17 are weekend days, completed 303 paperwork to file today. --will discontinue Seroquel as already several days taper and may be helpful with regards to tremor. (2) Hypothyroidism Continue home dose of levothyroxine. (3) Hyperlipidemia Continue home dose of atorvastatin. Discharge / Aftercare Planning Primary Care Physician: Name: Dr Astorga Psychiatrist: Name: Dr Chadwick Therapist: Name: None Flanging Machine Operator: Name: None Visit Code E&M Code: 34769 Inventory Assets Strengths: Has stable housing, supportive family Risk Factors Assessment : Yes /single/: No Higher / Fall in social status: No Health problems: No Mental Health Diagnoses: Yes Substance use disorders: No Previous attempt: No Family history of suicide: No Previous psychiatric stay: Yes Hopelessness: No Smoker: No Protective Factors Assessment Roman Catholic beliefs: Yes : Yes Responsible for young children: No Employed: No Supportive family: Yes Good rapport with provider: Yes Data Vital Signs Last 24 Hrs: Date Time Temp Pulse Resp B/P (MAP) Pulse Ox O2 Delivery O2 Flow Rate FiO2 10/15/16 07:08 36.9 72 16 132/85 76 142/92 Meds Administered Last 24 Hrs: Meds Administered (Past 24Hrs) Medications (Trade) Dose Ordered Sig/Azeem Route Start Time Stop Time Status Last Admin Dose Admin Risperidone (Risperdal M Tab) 1.5 mg BID PO 10/13/16 22:00 11/12/16 21:59 6/2/17 10:05 1.5 MG
[2016-10-15] MEDS: ATORVASTATIN 20 MG TAB PO SCH (22:23)
[2016-10-15] MEDS: LITHIUM CARBONATE SR 300 MG TAB (LITHOBID) PO SCH (22:24)
[2016-10-16] MEDS: ACETAMINOPHEN 325 MG TAB PO PRN (04:23)
[2016-10-16 07:37] VITALS: BP 124/80; PULSE 72; TEMP 36.6
[2016-10-16] MEDS: TOCOPHERYL, DL-ALPHA 100 INTERUNIT CAP PO SCH (07:41)
[2016-10-16] MEDS: LEVOTHYROXINE 100 MCG TAB PO SCH (07:41)
[2016-10-16] MEDS: RISPERIDONE ODT 0.5MG PO SCH (07:41)
[2016-10-16] MEDS: HALOPERIDOL 5 MG TAB PO SCH ×3 (07:41→21:12)
[2016-10-16] MEDS: LORAZEPAM 1 MG TAB PO PRN (10:48)
--- NOTE | 2016-10-16 13:09 | Psychiatric Progress Notes ---
Progress Note Date of Service Oct 16, 2016. Interval History 56 yo woman admitted on 10/05/16 in a manic episode. She has had multiple hospitalizations since coming off of lithium. Chief Complaint "I don't understand why you won't let me go home". Subjective Patient was seen & assessed interval progress reviewed with nursing. Slept 6 1/ 2 hours. Looking forward to visit from grandchildren. Hard for her to be here today as ena is graduating, reviewed with staff that could adjust visiting to have her come in cap and gown. Tremor appears improved today following d/c of 2nd atypical. Review of Systems patient unable to complete due to tearfulness/disorganization. Sleep Information Total Hours of Sleep: 6.50 Meal Information Percent of Breakfast Consumed: 25 Percent of Lunch Consumed: 50 Percent of Dinner Consumed: 50 Mental Status Exam During interview pt is: cooperative (as able) Appearance: appropriately dressed, appeared stated age Eye contact is: fair Motor behavior is: no abnormal motor movements (but more pacing today due to upset, doesn't appear to be akathisia.) Speech: normal in rate, rhythm & volume Affect: tearful Mood is: depressed Thought process: perseveration, other (disorganized) Thought content: reality based without delusions Suicidal thought are: denied Homicidal thoughts are: denied Hallucinations: other (did not appear to be responding to internal stimuli at time of the assessment) Cognition: language grossly intact, other (memory and attention are impaired) Intelligence estimated to be: average Insight: impaired Judgement: impaired Impression Continues to have symptoms of alison, though racing disorganized thoughts and erratic, restless behavior are improving. Cross tapering to risperdal after failed trial of seroquel. 302 involuntary commitment to 10/19 at 10 am. She remains on [facility]PR due to unpredictable behavior and poor boundaries/ability to tolerate peers due to alison. Plan (1) Bipolar 1 disorder Current episode manic with psychosis. -Continue quetiapine which was increased on admission to 100 mg twice a day and 300 mg daily at bedtime to target manic symptoms. -Fasting lipid profile was checked 06/09/2016, and showed elevated cholesterol of 300 and elevated triglycerides of 407. Hemoglobin A1c was elevated at 6.0. This will require ongoing monitoring as an outpatient, and perhaps she could be tapered off of quetiapine once put back on lithium and stabilized. -Taper off of oxcarbazepine, which has not been an adequate mood stabilizer for her, and load with lithium tonight - 30mg/kg in 3 divided doses, with trough level tomorrow. -He knew haloperidol, lorazepam, and benztropine as needed for acute a and psychosis. -Get records from outpatient psychiatrist and coordinate care. -Family meeting with and possibly adult children. -Encourage increased outpatient supports, including therapy and case management. 10/07 - Increase Seroquel to 200-200-300 mg - Loaded with li, level 1.0. Start lithobid 900 mg. HS with level in 5 days. - Continue seroquel prn 10/08 - Increase Seroquel to 200-200-400 mg - Continue other meds. 10/09 - continue meds scheduled and prn unchanged for now, lithium level for 10/12 10/10 - adjusted ativan to 1mg tid prn from 1 mg bid dosing - maintained other meds for now, including other prn's 10/11 - Schedule haldol 10 mg. TID 10/12 - Cross taper from quetiapine to risperidone M tab, starting 1 mg twice a day with a now dose. - Continue lithium 900 mg daily at bedtime. Trough level today 1.2. Has had good by mouth intake, but will repeat a BMP tomorrow to ensure good kidney function. - Continue haloperidol 10 mg prn, lorazepam 1 mg 3 times a day prn, and benztropine 1 mg prn. Change quetiapine 50 mg prn to risperidone 0.5 mg prn. - Discontinue Aricept for now, as indication unclear, no premorbid diagnosis of dementia, and may be contributing to polypharmacy and can prolong delirium. - There may be a delirium component, based on waxing and waning of confusion , worsening in the evening hours, and cognitive impairment. It is difficult to separate this from any underlying cognitive disorder and symptoms of alison. As above, we'll repeat BMP tomorrow, and will continue to monitor vital signs and assess for medical conditions that could contribute. 10/13 - Increase Risperdal to 1.5 mg BID - Continue taper of seroquel - Continue haldol 10 mg. TID 10/14 - Pursue 302 involuntary commitment as patient refusing to rescind her 72 hour notice, repeatedly asking to leave, has been physically aggressive with staff (pushing and shoving), lacks insight into the need for treatment, is manic and disorganized, confused, and refusing medications at times. Family are in favor of continued hospitalization and do not feel able to manage her at home. - Continue to limit stimulation, provide calming activities when appropriate , and use when necessary medications as needed for better behavioral and symptom control. 10/15 --given that 302 expires early on 10/19 and 10/16 and 10/17 are weekend days, completed 303 paperwork to file today. --will discontinue Seroquel as already several days taper and may be helpful with regards to tremor. 10/16 --she agreed to titrate Risperdal to 2 mg BID both for residual symptoms and ease of dosing at home. 303 hearing scheduled for 10/19 at 9:15 am. (2) Hypothyroidism Continue home dose of levothyroxine. (3) Hyperlipidemia Continue home dose of atorvastatin. Discharge / Aftercare Planning Primary Care Physician: Name: Dr Astorga Psychiatrist: Name: Dr Chadwick Therapist: Name: None Conversion Developer: Name: None Visit Code E&M Code: 91508 Inventory Assets Strengths: Has stable housing, supportive family Risk Factors Assessment : Yes /single/: No Higher / Fall in social status: No Health problems: No Mental Health Diagnoses: Yes Substance use disorders: No Previous attempt: No Family history of suicide: No Previous psychiatric stay: Yes Hopelessness: No Smoker: No Protective Factors Assessment Hindu beliefs: Yes : Yes Responsible for young children: No Employed: No Supportive family: Yes Good rapport with provider: Yes Data Vital Signs Last 24 Hrs: Date Time Temp Pulse Resp B/P (MAP) Pulse Ox O2 Delivery O2 Flow Rate FiO2 10/16/16 07:37 36.6 72 16 124/80
[2016-10-16] MEDS ORDERED: RISPERIDONE ODT 0.5MG PO ONE (13:30)
[2016-10-16] MEDS: ATORVASTATIN 20 MG TAB PO SCH (21:13)
[2016-10-16] MEDS: RISPERIDONE ODT 1MG PO SCH (21:14)
[2016-10-16] MEDS: LITHIUM CARBONATE SR 300 MG TAB (LITHOBID) PO SCH (21:14)
[2016-10-16] MEDS: BENZTROPINE MESYLATE 1 MG TAB PO PRN (21:47)
[2016-10-17 07:06] VITALS: BP_SYST 129; BP_SYST 137; BP_DIAS 80; BP_DIAS 85; PULSE 74; PULSE 80; TEMP 36.7
[2016-10-17] MEDS: HALOPERIDOL 5 MG TAB PO SCH ×3 (08:47→20:38)
[2016-10-17] MEDS: TOCOPHERYL, DL-ALPHA 100 INTERUNIT CAP PO SCH (08:47)
[2016-10-17] MEDS: RISPERIDONE ODT 1MG PO SCH ×2 (08:47→20:44)
[2016-10-17] MEDS: LEVOTHYROXINE 100 MCG TAB PO SCH (08:47)
[2016-10-17] MEDS: LORAZEPAM 1 MG TAB PO PRN ×2 (10:54→21:30)
--- NOTE | 2016-10-17 12:49 | Psychiatric Progress Notes ---
Progress Note Date of Service Oct 17, 2016. Interval History 56 yo woman admitted on 10/05/16 in a manic episode. She has had multiple hospitalizations since coming off of lithium. Chief Complaint "I feel great today". Subjective Patient was seen & assessed interval progress reviewed with nursing. She was more irritable/tearful in am that usual but received additional Risperdal and had a good evening. She was positive about family visits and was accepting of not being discharged today. She appears brighter and with less tremor. Review of Systems Psych: denies symptoms other than stated above Constitutional: denied Cardiovascular: denied GI: denied Neurologic: denied Remainder of 10 body systems also reviewed and denied other than noted above. Sleep Information Total Hours of Sleep: 6.75 Meal Information Percent of Breakfast Consumed: 60 Percent of Lunch Consumed: 50 Percent of Dinner Consumed: 100 Mental Status Exam During interview pt is: cooperative (as able) Appearance: appropriately dressed, appeared stated age Eye contact is: fair Motor behavior is: no abnormal motor movements Speech: normal in rate, rhythm & volume Affect: euthymic Mood is: anxious Thought process: clear, coherent Thought content: reality based without delusions Suicidal thought are: denied Homicidal thoughts are: denied Hallucinations: other (did not appear to be responding to internal stimuli at time of the assessment) Cognition: language grossly intact Intelligence estimated to be: average Insight: limited Judgement: limited Impression Continues to have symptoms of alison, though racing disorganized thoughts and erratic, restless behavior are improving. Cross tapering to risperdal after failed trial of seroquel. 302 involuntary commitment to 10/19 at 10 am. She remains on [facility]PR due to unpredictable behavior and poor boundaries/ability to tolerate peers due to alison. Plan (1) Bipolar 1 disorder Current episode manic with psychosis. -Continue quetiapine which was increased on admission to 100 mg twice a day and 300 mg daily at bedtime to target manic symptoms. -Fasting lipid profile was checked 06/09/2016, and showed elevated cholesterol of 300 and elevated triglycerides of 407. Hemoglobin A1c was elevated at 6.0. This will require ongoing monitoring as an outpatient, and perhaps she could be tapered off of quetiapine once put back on lithium and stabilized. -Taper off of oxcarbazepine, which has not been an adequate mood stabilizer for her, and load with lithium tonight - 30mg/kg in 3 divided doses, with trough level tomorrow. -He knew haloperidol, lorazepam, and benztropine as needed for acute a and psychosis. -Get records from outpatient psychiatrist and coordinate care. -Family meeting with and possibly adult children. -Encourage increased outpatient supports, including therapy and case management. 10/07 - Increase Seroquel to 200-200-300 mg - Loaded with li, level 1.0. Start lithobid 900 mg. HS with level in 5 days. - Continue seroquel prn 10/08 - Increase Seroquel to 200-200-400 mg - Continue other meds. 10/09 - continue meds scheduled and prn unchanged for now, lithium level for 10/12 10/10 - adjusted ativan to 1mg tid prn from 1 mg bid dosing - maintained other meds for now, including other prn's 10/11 - Schedule haldol 10 mg. TID 10/12 - Cross taper from quetiapine to risperidone M tab, starting 1 mg twice a day with a now dose. - Continue lithium 900 mg daily at bedtime. Trough level today 1.2. Has had good by mouth intake, but will repeat a BMP tomorrow to ensure good kidney function. - Continue haloperidol 10 mg prn, lorazepam 1 mg 3 times a day prn, and benztropine 1 mg prn. Change quetiapine 50 mg prn to risperidone 0.5 mg prn. - Discontinue Aricept for now, as indication unclear, no premorbid diagnosis of dementia, and may be contributing to polypharmacy and can prolong delirium. - There may be a delirium component, based on waxing and waning of confusion , worsening in the evening hours, and cognitive impairment. It is difficult to separate this from any underlying cognitive disorder and symptoms of alison. As above, we'll repeat BMP tomorrow, and will continue to monitor vital signs and assess for medical conditions that could contribute. 10/13 - Increase Risperdal to 1.5 mg BID - Continue taper of seroquel - Continue haldol 10 mg. TID 10/14 - Pursue 302 involuntary commitment as patient refusing to rescind her 72 hour notice, repeatedly asking to leave, has been physically aggressive with staff (pushing and shoving), lacks insight into the need for treatment, is manic and disorganized, confused, and refusing medications at times. Family are in favor of continued hospitalization and do not feel able to manage her at home. - Continue to limit stimulation, provide calming activities when appropriate , and use when necessary medications as needed for better behavioral and symptom control. 10/15 --given that 302 expires early on 10/19 and 10/16 and 10/17 are weekend days, completed 303 paperwork to file today. --will discontinue Seroquel as already several days taper and may be helpful with regards to tremor. 10/16 --she agreed to titrate Risperdal to 2 mg BID both for residual symptoms and ease of dosing at home. 303 hearing scheduled for 10/19 at 9:15 am. 10/17 --d/c MNPR (2) Hypothyroidism Continue home dose of levothyroxine. (3) Hyperlipidemia Continue home dose of atorvastatin. Discharge / Aftercare Planning Primary Care Physician: Name: Dr Astorga Psychiatrist: Name: Dr Chadwick Therapist: Name: None Platinumsmith: Name: None Visit Code E&M Code: 98886 Inventory Assets Strengths: Has stable housing, supportive family Risk Factors Assessment : Yes /single/: No Higher / Fall in social status: No Health problems: No Mental Health Diagnoses: Yes Substance use disorders: No Previous attempt: No Family history of suicide: No Previous psychiatric stay: Yes Hopelessness: No Smoker: No Protective Factors Assessment Gnosticism beliefs: Yes : Yes Responsible for young children: No Employed: No Supportive family: Yes Good rapport with provider: Yes Data Vital Signs Last 24 Hrs: Date Time Temp Pulse Resp B/P (MAP) Pulse Ox O2 Delivery O2 Flow Rate FiO2 10/17/16 07:06 36.7 74 16 129/80 80 137/85 Meds Administered Last 24 Hrs: Meds Administered (Past 24Hrs) Medications (Trade) Dose Ordered Sig/Azeem Route Start Time Stop Time Status Last Admin Dose Admin Risperidone (Risperdal M Tab) 2 mg BID PO 10/16/16 22:00 11/12/16 21:59 10/17/16 08:47 2 MG Risperidone (Risperdal M Tab) 0.5 mg 1330 ONCE PO 10/16/16 13:30 10/16/16 13:31 DC 10/16/16 14:03 0.5 MG
[2016-10-17] MEDS: BENZTROPINE MESYLATE 1 MG TAB PO PRN (17:40)
[2016-10-17] MEDS: ATORVASTATIN 20 MG TAB PO SCH (20:39)
[2016-10-17] MEDS: LITHIUM CARBONATE SR 300 MG TAB (LITHOBID) PO SCH (20:40)
[2016-10-18 06:47] VITALS: BP_SYST 120; BP_SYST 122; BP_DIAS 78; BP_DIAS 79; PULSE 73; PULSE 88; TEMP 36.9
[2016-10-18] MEDS: LEVOTHYROXINE 100 MCG TAB PO SCH (07:25)
[2016-10-18] MEDS: HALOPERIDOL 5 MG TAB PO SCH (07:26)
[2016-10-18] MEDS: RISPERIDONE ODT 1MG PO SCH (07:26)
[2016-10-18] MEDS: TOCOPHERYL, DL-ALPHA 100 INTERUNIT CAP PO SCH (07:26)
[2016-10-18] MEDS: LORAZEPAM 1 MG TAB PO PRN (08:20)
[2016-10-18] MEDS ORDERED: RSP2 PO (09:42)
[2016-10-18] MEDS ORDERED: LTHCR300 PO (09:42)
[2016-10-18] MEDS ORDERED: HLD5 PO (09:55)
--- NOTE | 2016-10-18 10:06 | Discharge Instructions ---
Discharge Information Report Includes Report will include the: Discharge Instructions & Summary Admission Admission Date / Time: October 05, 2016 at 14:43 Reason for Admission: Bipolar 1 Disorder Discharge Discharge Diagnosis / Problem: Bipolar disorder type I< most recent episode manic. Condition at Discharge: Good Discharge Goals Goal(s): Improve function, Improve disease control, Learn about illness, Therapeutic intervention Activity Recommendations Activity Limitations: per Instructions/Follow-up section . Instructions / Follow-Up Instructions / Follow-Up . SPECIAL CARE INSTRUCTIONS: 1. Follow through with your scheduled aftercare appointments. If unable to keep an appointment, please call to reschedule. 2. Take your medication only as prescribed. Medication should not be changed or stopped without the approval of your doctor. In the event of worsening symptoms or concerns about side effects, contact your doctor immediately. 3. Utilize new healthy coping skills, anger management skills, and stress management skills learned during your hospitalization. Journal feelings and process them with a support person. Identify stressors or situations that may result in relapse, deterioration or inappropriate behaviors and develop a plan to deal with those issues. 4. If your coping skills are ineffective and you are in crisis, contact your outpatient providers for direction. If unable to reach your providers, please call the CAN HELP LINE AT or go to the closest Emergency Room. 5. Avoid alcohol and un-prescribed drugs. 6. You have been provided with the Mental Health Advance Directives Pamphlet for your review. AFTERCARE APPOINTMENTS: * Please call your insurance company prior to your scheduled appointment to confirm your aftercare providers are covered. Take your insurance information to your appointments. . Discharge / Aftercare Planning Primary Care Physician: Name: Dr Astorga Psychiatrist: Name: Dr Chadwick Therapist: Name Of Therapist: None Felting Machine Operator Helper: Name: None . Follow-Up Care Plan for Follow-Up Care: See above. We recommend regular follow up with a psychiatrist and therapist. Current Hospital Diet Patient's current hospital diet: Regular Diet Discharge Diet Recommended Diet: Regular Diet Procedures Procedures Performed: No Pending Studies Pending Studies at Discharge: No Medical Emergencies . Who to Call and When: Medical Emergencies: For questions or emergencies related to your hospital stay, please contact the Inpatient Behavioral Health Unit at [phone]. A loader magazine grinder is on-call 06/12 for the Behavioral Health Unit for emergencies At any time you feel your situation is an emergency, you may also call 911 immediately. . Non-Emergent Contact Non-Emergency issues call your: Primary Care Provider, Psychiatrist Past History Medical & Surgical History: (1) Hyperlipidemia (2) Hypothyroidism Advance Directives Existing Advance Directive: No Do You Have an Existing Mental: No Existing Living Will: No Existing Power of Waist Cutter: No Advance Directives Info Given: To Pt/S.O. Advance Directives Reason: Declines as Mental Health Visit. Discharge Summary Admission HPI Per the Admitting provider: Patient is known to us from one prior very brief hospitalization in February 2014 for a mixed manic episode, when she was transferred to another psychiatric unit due to a conflict of interest, as a relative of hers was also on the unit. She presented to the ER yesterday with family and endorse symptoms of elevated , expansive mood, no sleep x 4 days, high energy, paranoia (thinks someone is going to kill her family), anxiety, and hyperactivity. She was confused and agitated after admission to the unit, repeatedly asking to leave, and could not find her room. She was hyperverbal, restless, pounding on the unit doors, and trying to touch and hug staff. She got multiple prns (Seroquel 50mg, Ativan 1mg , Haldol 10mg, Haldol 5mg, another Ativan 1mg). She was making accusations that family members and acquaintances "slipped something into her bottle" and that's why she is "like this". She admitted that she has not been taking her medications, and "this is what happens when I don't take them". Patient reports she stopped taking her medications because "people were making fun of my tongue ". She repeatedly attempts to enter the nurses' station, and continually gets up and down from bed to come talk to staff. Her and son visited and reported to staff that she had been stable on lithium for 25 years until 3 years ago when it was changed, they don't know why, and since then she's been hospitalized 3 times. During past hospitalizations, she was given a lot of medications that "snowed her for at least 2 or 3 days, so she could get the sleep she needed, and that really helped." Son says he has witnessed roughly 7 of her manic episodes in his life, and has never seen a presentation like this. He describes her "normal episodes" as being tearful, worried and introverted without sleeping. Son states is it uncharacteristic of her to be so labile, expansive and physical. Both son and agree she typically does not touch /hug, cry, and laugh during manic episodes. Pt. has been very physical with staff, attempting to hug, kiss and caress staff. This morning, she is again asking to leave. She requires a lot of intervention from staff and security, and has asked for medication to help calm her down. Today, she is seen with Jaylyn Palacio, MS 3. She reports manic symptoms for the past 3-4 weeks, stating that she stopped sleeping on September [birth year], which was her 's birthday. She denies stressors, and states "I think because of the wildcats on the porch." She does not know the names of the medication she is prescribed at home, saying she needs to see the prescriptions, but then says she manages her own medications. Although she told staff yesterday that she was not taking her psychotropic medications, today she insists that she takes them daily. She last saw her outpatient psychiatrist, Dr. Chadwick, on Tuesday, and states she told him that "I have a wonderful life, a wonderful , love of the Lord." She denies that any medication changes were made, although family told staff her medicines had just been adjusted. She says she stopped lithium couple of months ago on her own because "I figured I didn't need it." She denies that it was causing any problems for her, and is willing to go back on it. She states her family encouraged her to come in yesterday, because she needed to get on her medications and get some sleep. She now feels she is better, and wonders if she can leave. We discussed a plan to get her back on a good mood stabilizer, have a family meeting, and coordinate care with her outpatient providers prior to discharge, which she agrees to. She states mood is "really, really good, I'm happy, I go to evangelical, believe in the Lord, have an awesome, awesome ." Appetite has been decreased, and she has lost weight, although unsure of the exact amount, notes that her clothing is loose. She thinks her appetite was low because she "was nervous and didn't want to eat , because I thought someone was going to kill my ." She struggles to further clarify this, stating "that was a weird thought." She later states "I knew no one was going to kill my , everyone loves him." She endorses poor concentration, distractibility, and elevated energy that she describes as "super good, busy busy busy busy." She denies auditory and visual hallucinations, and states she doesn't recall telling staff last evening that she suspected her family had put something in her drink. Admission Exam Per the Admitting provider: Please see admission H&P. Consultations None. Hospital Course (1) Bipolar 1 disorder Current episode manic with psychosis. -Continue quetiapine which was increased on admission to 100 mg twice a day and 300 mg daily at bedtime to target manic symptoms. -Fasting lipid profile was checked 06/09/2016, and showed elevated cholesterol of 300 and elevated triglycerides of 407. Hemoglobin A1c was elevated at 6.0. This will require ongoing monitoring as an outpatient, and perhaps she could be tapered off of quetiapine once put back on lithium and stabilized. -Taper off of oxcarbazepine, which has not been an adequate mood stabilizer for her, and load with lithium tonight - 30mg/kg in 3 divided doses, with trough level tomorrow. -He knew haloperidol, lorazepam, and benztropine as needed for acute a and psychosis. -Get records from outpatient psychiatrist and coordinate care. -Family meeting with and possibly adult children. -Encourage increased outpatient supports, including therapy and case management. 10/07 - Increase Seroquel to 200-200-300 mg - Loaded with li, level 1.0. Start lithobid 900 mg. HS with level in 5 days. - Continue seroquel prn 10/08 - Increase Seroquel to 200-200-400 mg - Continue other meds. 10/09 - continue meds scheduled and prn unchanged for now, lithium level for 10/12 10/10 - adjusted ativan to 1mg tid prn from 1 mg bid dosing - maintained other meds for now, including other prn's 10/11 - Schedule haldol 10 mg. TID 10/12 - Cross taper from quetiapine to risperidone M tab, starting 1 mg twice a day with a now dose. - Continue lithium 900 mg daily at bedtime. Trough level today 1.2. Has had good by mouth intake, but will repeat a BMP tomorrow to ensure good kidney function. - Continue haloperidol 10 mg prn, lorazepam 1 mg 3 times a day prn, and benztropine 1 mg prn. Change quetiapine 50 mg prn to risperidone 0.5 mg prn. - Discontinue Aricept for now, as indication unclear, no premorbid diagnosis of dementia, and may be contributing to polypharmacy and can prolong delirium. - There may be a delirium component, based on waxing and waning of confusion , worsening in the evening hours, and cognitive impairment. It is difficult to separate this from any underlying cognitive disorder and symptoms of alison. As above, we'll repeat BMP tomorrow, and will continue to monitor vital signs and assess for medical conditions that could contribute. 10/13 - Increase Risperdal to 1.5 mg BID - Continue taper of seroquel - Continue haldol 10 mg. TID 10/14 - Pursue 302 involuntary commitment as patient refusing to rescind her 72 hour notice, repeatedly asking to leave, has been physically aggressive with staff (pushing and shoving), lacks insight into the need for treatment, is manic and disorganized, confused, and refusing medications at times. Family are in favor of continued hospitalization and do not feel able to manage her at home. - Continue to limit stimulation, provide calming activities when appropriate , and use when necessary medications as needed for better behavioral and symptom control. 10/15 --given that 302 expires early on 10/19 and 10/16 and 10/17 are weekend days, completed 303 paperwork to file today. --will discontinue Seroquel as already several days taper and may be helpful with regards to tremor. 10/16 --she agreed to titrate Risperdal to 2 mg BID both for residual symptoms and ease of dosing at home. 303 hearing scheduled for 10/19 at 9:15 am. 10/17 -- d/c [facility] 10/18 -- Patient and family state she is at baseline and are requesting discharge. Will cancel 303 hearing and discharge to outpatient care, as she is improved and no longer at acute risk of harm to herself or others, would like to go home, and family agree and feel safe taking her home. (2) Hypothyroidism Continue home dose of levothyroxine. (3) Hyperlipidemia Continue home dose of atorvastatin. Risk Factors Assessment : Yes /single/: No Higher / Fall in social status: No Access to guns: No Health problems: No Mental Health Diagnoses: Yes Substance use disorders: No Previous attempt: No Family history of suicide: No Previous psychiatric stay: Yes Hopelessness: No Smoker: No Protective Factors Assessment Pentecostal beliefs: Yes : Yes Responsible for young children: No Employed: No Supportive family: Yes Good rapport with provider: Yes Absence of risk factors above: Yes (risk factors were mitigated by admission to the inpatient unit, adjusting medications to target alison and psychosis, involving her in groups and therapy, working on healthy coping skills and he discharge safety plan, involving her family in a family meeting, and discharge planning. She has responded well to treatment, manic and psychotic symptoms have resolved, and both the patient and her family state that she has at baseline. Sleep has improved, and she is sleeping through the night. She has been able to perform ADLs independently. She has consistently denied thoughts of harming herself or others, and has not engaged in self injury or violence towards others. As her symptoms have stabilized and she and her family feel she is at baseline and are requesting discharge, she will be released to outpatient care. She is no longer at acute risk for harm to herself as a result of her mental illness.) Day of Discharge Assessment Hospital course: On admission, she was tapered off of oxcarbazepine due to inefficacy, and was loaded with lithium to target alison. Her initial trough level was 1.0, and she was started on 900 mg daily at bedtime. After 5 days, her lithium trough level on maintenance dosing was 1.2. She tolerated the medication well, and it was continued at that dose. Basic metabolic panel was repeated to ensure good kidney function, and was normal. Initially, quetiapine was increased to 800 mg daily in divided doses, but she continued to have manic and psychotic symptoms. She received frequent as needed doses of haloperidol 10 mg, so was started on scheduled haloperidol 10 mg 3 times a day. She was cross tapered from quetiapine to risperidone M tab after her family reported a previous good response to that medication when hospitalized in the past. Her dose was increased to 2 mg twice a day, and she was switched to the tablet form at discharge. At times, she was very disorganized, repeatedly requesting to leave , and requiring frequent intervention and redirection from staff. She also refused her medications at times, and required significant reassurance from staff in order to take them. She had to be placed on a 302 involuntary commitment on 10/14/2016 as she had submitted a 72 hour notice, repeatedly requested discharge, was physically aggressive with staff (pushing and shoving) lacked insight into the need for ongoing treatment, was manic and disorganized, confused, and refusing medication at times. Her family did not feel able to control her symptoms outside of the hospital and were in favor of continued hospitalization. A family meeting was held with her and daughter on . The patient attempted to join the meeting, but was not able to tolerate it due to the severity of her manic and psychotic symptoms. Her family visited regularly throughout her stay and were very supportive. As her mood stabilized and symptoms improved, she was able to attend groups and participate appropriately and became independent with her ADLs. Her sleep improved, and by the end of her hospitalization she was sleeping through the night. She was also able to tolerate a roommate toward the end of her stay, although initially she was placed in a private room due to the severity of her symptoms and disruptive behaviors. Day of discharge assessment: Patient states that her mood is "much better," and states that she feels back to her normal self. She denies side effects from medications, and thinks that her current medications are working well for her. She denies mood swings, racing thoughts, depressive symptoms, and confusion. She denies thoughts of harming herself or anyone else. She is thankful for her treatment and that she is feeling better, and would like to be discharged to home today. Her and daughter visited yesterday and told staff that the patient was at her baseline and they felt she was safe to be discharged. The patient denies any concerns with going home. We reviewed all of her medications, including new medications in the ones that were discontinued, and she was given an Up To Date Patient Handout on lithium. Well nourished, well developed WF appearing stated age. Casually dressed and adequately groomed. Calm and cooperative. Seated in NAD, with fair eye contact and no abnormal movements. Speech is normal rate, volume, and tone. Mood is "really good," and affect is stable and congruent. Thoughts are linear , logical and goal directed. The patient denied suicidal and homicidal ideation and was able to safety plan. No paranoia, delusions, or hallucinations , and did not appear to be responding to internal stimuli. Cognition was grossly intact. Alert and oriented to person, place and time. Intelligence is consistent with level of education. Insight and and judgment are fair. Laboratory Test 10/05/16 12:14 10/05/16 12:50 10/07/16 08:10 10/12/16 09:19 Urine Color DK YELLOW Urine Appearance CLEAR Urine pH 5.5 Urine Specific [place] 1.026 Urine Protein NEG Urine Glucose (UA) NEG Urine Ketones TRACE Urine Occult Blood NEG Urine Nitrite NEG Urine Bilirubin NEG Urine Urobilinogen NEG Urine Leukocyte Esterase MODERATE Urine WBC (Auto) 5-10 Urine RBC (Auto) 0-4 Urine Hyaline Casts (Auto) 5-10 Urine Epithelial Cells (Auto) >30 Urine Bacteria (Auto) NEG Urine Crystals CALCIUM OXALATE Urine Mucus PRESENT Urine Sperm (Auto) PRESENT Urine Test NEG Urine Opiates Screen NEG Urine Methadone, Qualitative NEG Urine Barbiturates NEG Urine Phencyclidine (PCP) Level NEG Ur Amphetamine/Methamphetamine NEG MDMA (Ecstasy) Screen NEG Urine Benzodiazepines Screen NEG Urine Cocaine Metabolite NEG Urine Marijuana (THC) NEG White Blood Count 7.69 Red Blood Count 4.70 Hemoglobin 14.0 Hematocrit 41.8 Mean Corpuscular Volume 88.9 Mean Corpuscular Hemoglobin 29.8 Mean Corpuscular Hemoglobin Concent 33.5 Platelet Count 225 Mean Platelet Volume 10.9 Neutrophils (%) (Auto) 63.2 Lymphocytes (%) (Auto) 28.1 Monocytes (%) (Auto) 6.4 Eosinophils (%) (Auto) 1.7 Basophils (%) (Auto) 0.3 Neutrophils # (Auto) 4.87 Lymphocytes # (Auto) 2.16 Monocytes # (Auto) 0.49 Eosinophils # (Auto) 0.13 Basophils # (Auto) 0.02 RDW Standard Deviation 39.9 RDW Coefficient of Variation 12.4 Immature Granulocyte % (Auto) 0.3 Immature Granulocyte # (Auto) 0.02 Sodium Level 143 Potassium Level 3.4 Chloride Level 109 Carbon Dioxide Level 27 Anion Gap 7.0 Blood Urea Nitrogen 13 Creatinine 0.90 Est Creatinine Clear Calc Drug Dose 63.0 Estimated GFR () 81.7 Estimated GFR (Non- 70.5 BUN/Creatinine Ratio 14.5 Random Glucose 143 Calcium Level 8.8 Total Bilirubin 0.8 Direct Bilirubin 0.2 Aspartate Amino Transferase (AST) 30 Alanine Aminotransferase (ALT) 43 Alkaline Phosphatase 118 Total Protein 7.0 Albumin 4.1 Thyroid Stimulating Hormone (TSH) 0.593 Ethyl Alcohol mg/dL < 3.0 [place] Level 1.0 1.2 Test 10/13/16 09:21 Sodium Level 141 Potassium Level 3.7 Chloride Level 107 Carbon Dioxide Level 24 Anion Gap 10.0 Blood Urea Nitrogen 12 Creatinine 1.10 Est Creatinine Clear Calc Drug Dose 51.6 Estimated GFR () 64.1 Estimated GFR (Non- 55.3 BUN/Creatinine Ratio 11.3 Random Glucose 212 Calcium Level 8.7 Total Time Total Time Spent (min): Greater than 30 minutes Total Time Included: examination of the patient, discharge planning, medication reconciliation Tobacco Cessation at Discharge Smoking Status: Never Smoker FDA approved Prescription: non-smoker Antipsychotic Meds Rationale The patient failed monotherapy for her alison, so was being discharged on 2 antipsychotics. As she stabilizes over the next several months, recommend tapering off of one agent and maintaining her on 1 antipsychotic medication.
[2017-01-21] MEDS ORDERED: QUET1TAB10 PO (13:17)
[2017-01-21] MEDS ORDERED: ATOR-54 PO (13:40)
[2017-01-21] MEDS ORDERED: LEVO100T PO (13:40)
[2017-01-21] MEDS ORDERED: BENZ-88 PO (15:29)
== END 2016-10-18 13:20 | disposition home or self-care (01) | DRG 885 ==
LOC: C.EDB 12:04 → C.MHU 14:43
PROVIDERS: ADMIT Psychiatry & Neurology Psychiatry; ATTEND Psychiatry & Neurology Psychiatry
DX: F31.2 Bipolar disorder, current episode manic severe with psychotic features (principal); E78.5 Hyperlipidemia, unspecified; E03.9 Hypothyroidism, unspecified; Z79.899 Other long term (current) drug therapy; Z91.128 Patient's intentional underdosing of medication regimen for other reason; Z83.3 Family history of diabetes mellitus; Z81.8 Family history of other mental and behavioral disorders

== ENCOUNTER → 2016-11-15 | Outpatient (CLI) | payer OTHER ==
[~2016-11-15] MED LIST changes: +ATOR-54 PO; +CGN1X PO; +HLD5 PO; +LEVO100T PO; -LEVO100T84 PO; -LTH300T PO; +LTHCR300 PO; -OMEG10007 PO; +PROP10TA7 PO; +QUET1TAB10 PO; -QUET1TAB30 PO; -QUET200T2 PO; +RISP0.5T4 PO; +RSP2 PO; -SULF800T23 PO; +VTME100 PO; -[UNRECOGNIZED DRUG - OTHER] PO; -[UNRECOGNIZED DRUG - OTHER] PO
[2016-11-15 17:26] LABS: BASO % 0.3 %; BASO ABS # 0.03 K/uL (0-0.2); COMPLETE YES; EOS % 3.5 %; HEMATOCRIT 43.6 % (37-47); IG% 0.3 %; LYMPH ABS # 2.26 K/uL (1.2-3.4); MEAN CELL VOLUME 91.2 fL (80-100); MEAN CORPUSCULAR HEMOGLOBIN 30.3 pg (25-34); MEAN CORPUSCULAR HGB CONC 33.3 g/dl (32-36); MEAN PLATELET VOLUME 11.5 fL (7.4-10.4); NEUT % 68.9 %; PLATELET COUNT 188 K/uL (130-400); RED BLOOD COUNT 4.78 M/uL (4.2-5.4); WHITE BLOOD COUNT 10.74 K/uL (4.8-10.8)
[2016-11-15 17:41] LABS: ALT/SGPT 34 U/L (12-78); BLOOD UREA NITROGEN 12 mg/dl (7-18); BUN/CREATININE RATIO 14.1 (10-20); CALCIUM 9.5 mg/dl (8.5-10.1); CARBON DIOXIDE 23 mmol/L (21-32); CHLORIDE 110 mmol/L (98-107); CHOLESTEROL 122 mg/dl (0-200); CREATININE 0.87 mg/dl (0.60-1.20); GLUCOSE 86 mg/dl (70-99); SODIUM 141 mmol/L (136-145); TRIGLYCERIDES 140 mg/dl (0-150); VERY LOW DENSITY LIPOPROT CALC 28 mg/dl
[2016-11-15 17:52] LABS: ALB/GLOB RATIO 1.1 (0.9-2); ALKALINE PHOSPHATASE 128 U/L (45-117); AST/SGOT 18 U/L (15-37); CHOLESTEROL/HDL RATIO 2.4; HDL CHOLESTEROL 50 mg/dl; LDL CHOLESTEROL CALCULATED 44 mg/dl; THYROID STIMULATING HORMONE 0.485 uIu/ml (0.300-4.500)
== END | disposition home or self-care (01) ==
LOC: C.LABBFT 12:58
PROVIDERS: ATTEND Psychiatry & Neurology Psychiatry
DX: F25.9 Schizoaffective disorder, unspecified (principal)

== ENCOUNTER → 2016-11-17 | Outpatient (CLI) | payer OTHER ==
[2016-11-17 17:39] LABS: URINE APPEARANCE CLEAR (CLEAR); URINE BILIRUBIN NEG (NEG); URINE COLOR YELLOW; URINE EPITHELIAL CELL AUTO >30 /lpf (0-5); URINE NITRITE NEG (NEG); URINE SPECIFIC GRAVITY 1.019 (1.000-1.030); UROBILINOGEN NEG (NEG)
[2016-11-17 17:45] LABS: MANUAL MICROSCOPIC REQUIRED? NO; REVIEW REQ? YES
== END | disposition home or self-care (01) ==
LOC: C.LABBFT 13:07
PROVIDERS: ATTEND Psychiatry & Neurology Psychiatry
DX: F25.9 Schizoaffective disorder, unspecified (principal)

== ENCOUNTER 2016-11-28 12:52 | Emergency (ER) | payer OTHER ==
[~2016-11-28] VITALS: Ht 154.9 cm; Wt 75.4 kg
[~2016-11-28 12:52] MED LIST changes: -CGN1X PO; -PROP10TA7 PO; -QUET1TAB10 PO; -RISP0.5T4 PO
[2016-11-28 12:54] VITALS: BP 128/91; PULSE 90; TEMP 36.8; O2SAT 95; Ht 154.9 cm; Wt 75.4 kg
[2016-11-28] MEDS ORDERED: QUET1TAB10 PO (13:17)
--- NOTE | 2016-11-28 13:42 | DIAGNOSTIC IMAGING REPORT ---
RIGHT KNEE 3 VIEWS CLINICAL HISTORY: knee pain s/p fall Right trauma. Pain. COMPARISON: None. DISCUSSION: The bones and joint spaces appear intact. There is no evidence of fracture, dislocation or bony disease. There is no evidence for soft tissue swelling. IMPRESSION: Negative study. The above report was generated using voice recognition software. It may contain grammatical, syntax or spelling errors. Electronically signed by: Josep Sneed M.D. 11/28/2016 1:40 PM Dictated Date/Time: 11/28/2016 1:40 PM
--- NOTE | 2016-11-28 13:51 | EMERGENCY ROOM VISIT NOTE ---
ED Visit Note First contact with patient: 13:13 CHIEF COMPLAINT: right knee pain HISTORY OF PRESENT ILLNESS: This 56-year-old female patient presents to the emergency department 4 days after sustaining an injury to the right knee. The patient states she was kneeled down to plug a light in to the wall, when she lost her balance and fell landing on her right kneecap. The patient states she has been having significant pain, worse at night, and has been having difficulty sleeping. The patient does have a history of bipolar disorder, and states she becomes manic when she does not sleep at night. The patient denies any other injuries besides their knee. The patient denies swelling or bruising. There is pain anteriorly and on both sides of the knee. They rate the pain as sharp and 7/10 at rest, 10/10 at night, which awakens her from sleep. The patient states they are able to walk on it. No numbness or tingling. The patient has not taken any OTC pain medications because she states she is allergic to Aleve. The patient has been using ice and heat, neither of which is helping her discomfort. No previous injuries to this knee. No ankle, foot or hip pain. REVIEW OF SYSTEMS: A 6 system review of systems was completed with positives and pertinent negatives listed in the HPI. ALLERGIES: Penicillins, Aleve MEDICATIONS: Ridge, risperidone, Synthroid, Lipitor, Ativan, vitamin E, quetiapine PMH: Bipolar disorder, hypothyroidism, hyperlipidemia, anxiety SOCIAL HISTORY: The patient lives locally with her family. She denies drug, alcohol, tobacco use. PHYSICAL EXAM: Vital Signs: Reviewed Nurse's notes, vital signs stable. GENERAL : That D6-year-old female, no acute distress, but appears in pain, well- developed, well-nourished. MENTAL STATUS: Alert, oriented to person place and time, and cooperative. MUSCULOSKELETAL: The right knee is mildly swollen. There is non ecchymosis. There iso] joint effusion present. The patient is tender over the patella. There is no joint line tenderness. The patella does appropriately subluxate. Range of motion is full. Strength of the quads and hamstrings is 5/5. Milton's is negative. Ramona's and Anterior Drawer tests are negative. There is no discomfort or laxity with varus and valgus stressing. The foot and toes are warm and well-perfused. Dorsalis pedis pulse 2+. Sensation to pain and light touch is intact. Capillary refill less than 2 seconds. EMERGENCY DEPARTMENT COURSE: I examined the patient. X-rays of the right knee were reviewed by myself and read by radiology and reveal no acute fracture or abnormality. I did offer the patient crutches, however she declines, stating it makes it more difficult for her to get around. I discussed the patient proper pain management with OTC pain medications. The patient was discharged home in good condition. RADIOLOGY: X-Ray Right knee: DISCUSSION: The bones and joint spaces appear intact. There is no evidence of fracture, dislocation or bony disease. There is no evidence for soft tissue swelling. IMPRESSION: Negative study. DIFFERENTIAL DIAGNOSIS: Patellar fracture, Ligament tear, strain, or sprain, distal femur fracture, proximal tibia or fibula fracture, tibial plateau fracture, meniscus tear, effusion, and others. DIAGNOSIS: Right knee contusion DISCHARGE INSTRUCTIONS: Ibuprofen(Motrin, Advil) may be used for fever or pain. Use 600mg every six hours as needed. Take with food. Avoid using more than 2400mg in a 24 hour period. Do not use 2400mg per day for more than three consecutive days without physician direction. Prolonged inappropriate use can lead to stomach upset or ulcers. (AND/OR) Acetaminophen(Tylenol) may be used for fever or pain. Use 1000mg every six to eight hours as needed. Avoid using more than 3000mg in a 24 hour period. Ice compresses for 20 minutes at a time four times daily for 2-3 days. Rest and elevate your injury. Return to the ER immediately for any numbness, tingling, severe pain, extreme swelling in the extremity or as needed. Call [facility], [phone], or your personal orthopedic surgeon if no improvement in 1-2 weeks, to arrange follow up for your injury. Follow-up with your primary care physician in 2 to 3 days for a recheck of your current condition. Current/Historical Medications Scheduled Atorvastatin (Lipitor), 20 MG PO HS Levothyroxine Sodium (Synthroid), 100 MCG PO DAILY [place] Carbonate ([place]idge Carbonate ER), 900 MG PO HS Quetiapine Fumarate (Seroquel), 200 MG PO HS Risperidone (Risperidone), 2 MG PO BID Tocopheryl Acet,Dl-Alpha (Vitamin E), 200 PO DAILY Scheduled PRN Lorazepam (Ativan), 1 MG PO BID PRN for Anxiety Allergies Coded Allergies: Penicillins (Verified Allergy, Unknown, UNKN, 06/27/15) Vital Signs Date Time Temp Pulse Resp B/P (MAP) Pulse Ox O2 Delivery O2 Flow Rate FiO2 11/28/16 12:54 36.8 90 20 128/91 95 Room Air Departure Information Impression Primary Impression: Knee pain Dispostion Home / Self-Care Condition GOOD Referrals Abhinav Astorga M.D. (PCP) Patient Instructions ED Knee Pain [facility], [facility] Additional Instructions ORTHOPEDIC INSTRUCTIONS: Ibuprofen(Motrin, Advil) may be used for fever or pain. Use 600mg every six hours as needed. Take with food. Avoid using more than 2400mg in a 24 hour period. Do not use 2400mg per day for more than three consecutive days without physician direction. Prolonged inappropriate use can lead to stomach upset or ulcers. (AND/OR) Acetaminophen(Tylenol) may be used for fever or pain. Use 1000mg every six to eight hours as needed. Avoid using more than 3000mg in a 24 hour period. Ice compresses for 20 minutes at a time four times daily for 2-3 days. Rest and elevate your injury. Return to the ER immediately for any numbness, tingling, severe pain, extreme swelling in the extremity or as needed. Call [facility], [phone], or your personal orthopedic surgeon if no improvement in 1-2 weeks, to arrange follow up for your injury. Follow-up with your primary care physician in 2 to 3 days for a recheck of your current condition. Problem Qualifiers Primary Impression: Knee pain Chronicity: acute Laterality: right Qualified Codes: M25.561 - Pain in right knee
== END 2016-11-28 13:58 | disposition home or self-care (01) ==
LOC: C.EDB 12:53 → C.EDD 13:58
DX: S80.01XA Contusion of right knee, initial encounter (principal); W19.XXXA Unspecified fall, initial encounter; F31.9 Bipolar disorder, unspecified; E03.9 Hypothyroidism, unspecified; E78.5 Hyperlipidemia, unspecified; F41.9 Anxiety disorder, unspecified; Z79.899 Other long term (current) drug therapy

== ENCOUNTER → 2016-12-10 | Outpatient (CLI) | payer OTHER ==
[~2016-12-10] MED LIST changes: +CGN1X PO; -HLD5 PO; +PROP10TA7 PO; +QUET1TAB10 PO; +RISP0.5T4 PO
[2016-12-10 17:51] LABS: ALT/SGPT 34 U/L (12-78); BLOOD UREA NITROGEN 7 mg/dl (7-18); BUN/CREATININE RATIO 7.3 (10-20); CALCIUM 10.1 mg/dl (8.5-10.1); CARBON DIOXIDE 27 mmol/L (21-32); CHLORIDE 107 mmol/L (98-107); CHOLESTEROL 91 mg/dl (0-200); CREATININE 0.97 mg/dl (0.60-1.20); GLUCOSE 94 mg/dl (70-99); POTASSIUM 3.8 mmol/L (3.5-5.1); SODIUM 141 mmol/L (136-145); TRIGLYCERIDES 147 mg/dl (0-150); VERY LOW DENSITY LIPOPROT CALC 29 mg/dl
[2016-12-10 18:02] LABS: ALB/GLOB RATIO 1.2 (0.9-2); ALKALINE PHOSPHATASE 100 U/L (45-117); AST/SGOT 21 U/L (15-37); HDL CHOLESTEROL 46 mg/dl; LDL CHOLESTEROL CALCULATED 16 mg/dl; THYROID STIMULATING HORMONE 0.123 uIu/ml (0.300-4.500)
[2016-12-10 22:52] LABS: RAPID PLASMA REAGIN NONREACTIVE (NONREACT)
[2016-12-11 06:33] LABS: ESTIMATED AVERAGE GLUCOSE 108 mg/dl; HA1C FLAG Normal (Normal)
[2016-12-11 12:11] LABS: LYME DISEASE AB IGG NEG (NEG); LYME DISEASE AB IGM NEG (NEG)
== END | disposition home or self-care (01) ==
LOC: C.LABBFT 12:56
PROVIDERS: ATTEND Internal Medicine
DX: E78.5 Hyperlipidemia, unspecified (principal); R73.01 Impaired fasting glucose; E03.9 Hypothyroidism, unspecified; R41.82 Altered mental status, unspecified

== ENCOUNTER → 2016-12-27 | Outpatient (CLI) | payer OTHER ==
--- NOTE | 2016-12-27 15:45 | DIAGNOSTIC IMAGING REPORT ---
BRAIN COMBO CLINICAL HISTORY: 56 years-old Female presenting with altered mental status, confusion. TECHNIQUE: Multisequence, multiplanar MR imaging of the brain was performed before and after the administration of intravenous contrast. IV contrast: 7 mL of Gadavist. COMPARISON: None. FINDINGS: Ventricles and sulci normal in size. Brain parenchyma normal in appearance with preserved jean-baptiste-white differentiation. No mass effect or midline shift. No hemorrhage or acute territorial infarct. No extra-axial fluid collection. T2 skull base flow voids preserved. Paranasal sinuses and mastoid air cells clear. No abnormal parenchymal enhancement. IMPRESSION: No acute intracranial abnormality. No abnormal enhancement. Electronically signed by: Ramakrishna Mandujano M.D. 12/27/2016 3:44 PM Dictated Date/Time: 12/27/2016 3:41 PM
== END | disposition home or self-care (01) ==
LOC: C.MRI 14:22
PROVIDERS: ATTEND Physician Assistant Medical
DX: R41.82 Altered mental status, unspecified (principal); R26.9 Unspecified abnormalities of gait and mobility

== ENCOUNTER 2017-01-21 14:25 | Emergency (ER) | payer OTHER ==
[~2017-01-21] VITALS: Ht 154.9 cm; Wt 73.1 kg
[~2017-01-21 14:25] MED LIST changes: -ATV/1 PO; -CGN1X PO; -PROP10TA7 PO; -RISP0.5T4 PO
[2017-01-21 14:29] VITALS: TEMP 36.5; Ht 154.9 cm; Wt 73.1 kg
[2017-01-21] MEDS ORDERED: ATV/1 PO (14:39)
[2017-01-21] MEDS ORDERED: PROP10TA7 PO (15:29)
[2017-01-21] MEDS ORDERED: RISP0.5T4 PO (15:29)
[2017-01-21] MEDS ORDERED: CGN1X PO (15:29)
--- NOTE | 2017-01-21 15:54 | EMERGENCY ROOM VISIT NOTE ---
History Report prepared by Esme: Khushbu Camara Under the Supervision of: Dr. Oli Encarnacion M.D. First contact with patient: 15:31 Chief Complaint: MENTAL HEALTH EVALUATION Stated Complaint: MENTAL HEALTH History of Present Illness The patient is a 56 year old female who presents to the Emergency Room for a mental health evaluation. The patient was admitted in September for a nervous breakdown and was discharged with rigid movements, which per son, have been worsening since her discharge. Per son, the patient has been getting worse overall since last being admitted and has been falling a lot more recently. The son notes that the patient has fallen 6 times in the past two weeks. The patient has a recent fall where she injured her right shoulder and reports constant pain. The son states that she is unable to swallow pills, forgetting basic ADLs, and has been seeing children and bugs. She has a history of nervous breakdowns. The patient was recently backed off her Seroquel. She denies any fever, chills, cough, nausea, or vomiting. The patient lives with her who works and is often not home. She denies wanting to hurt herself. Source of History: patient Position: other (generalized) Associated Symptoms: No fevers, No chills, No cough, No nausea, No vomiting Review of Systems See HPI for pertinent positives and negatives. A total of ten systems were reviewed and were otherwise negative. Past Medical & Surgical Medical Problems: (1) Bipolar Disorder, Unspecified (2) Depressive Disorder Nec (3) Esophageal Reflux (4) Hyperlipidemia (5) Hypothyroidism (6) Hypothyroidism Nos (7) Lumbago (8) Schizophrenia Nos-Unspec Family History Diabetes mellitus Social History Smoking Status: Never Smoker Alcohol Use: none Marital Status: in relationship Housing Status: unknown Occupation Status: unemployed Current/Historical Medications Scheduled Atorvastatin (Lipitor), 20 MG PO HS Benztropine Mesylate (Benztropine Mesylate), 0.5 MG PO TID Levothyroxine Sodium (Synthroid), 100 MCG PO DAILY [place] Carbonate ([place] Carbonate ER), 900 MG PO HS Propranolol (Inderal), 10 MG PO BID Quetiapine Fumarate (Seroquel), 200 MG PO HS Risperidone (Risperidone), 0.25 MG PO BID Tocopheryl Acet,Dl-Alpha (Vitamin E), 200 PO DAILY Scheduled PRN Lorazepam (Ativan), 1 MG PO BID PRN for Anxiety Allergies Coded Allergies: Penicillins (Verified Allergy, Unknown, UNKN, 06/27/15) Physical Exam Vital Signs Date Time Temp Pulse Resp B/P (MAP) Pulse Ox O2 Delivery O2 Flow Rate FiO2 01/21/17 18:18 64 20 119/80 99 Room Air 01/21/17 16:27 60 20 125/78 98 Room Air 01/21/17 14:29 36.5 91 20 121/83 98 Room Air Physical Exam GENERAL: Awake, alert, well-appearing, in no distress HENT: Normocephalic, atraumatic. Oropharynx unremarkable. Dry MM. Abnormal tongue movements consistent with TD. EYES: Normal conjunctiva. Sclera non-icteric. NECK: Supple. No nuchal rigidity. FROM. No JVD. RESPIRATORY: Clear to auscultation. CARDIAC: Regular rate, normal rhythm. Extremities warm and well perfused. Pulses equal. ABDOMEN: Soft, non-distended. No tenderness to palpation. No rebound or guarding. No masses. RECTAL: Deferred. MUSCULOSKELETAL: Chest examination reveals no tenderness. The back is symmetrical on inspection without obvious abnormality. There is no CVA tenderness to palpation. No joint edema. Mild tenderness to right shoulder diffusely, ROM intact. LOWER EXTREMITIES: Calves are equal size bilaterally and non-tender. No edema. No discoloration. NEURO: Resting and intention tremor. Rigid motor movement on finger to nose. SKIN: No rash or jaundice noted. Medical Decision & Procedures ER Provider Diagnostic Interpretation: Radiology results as stated below per my review and radiologist interpretation: RIGHT SHOULDER MIN 2 VIEWS ROUTINE DISCUSSION: Moderate degenerative change glenohumeral joint. Moderate degenerative change acromioclavicular joint. No evidence for fracture or dislocation. There is no evidence for soft tissue swelling. IMPRESSION: Moderate degenerative change. No acute process. The above report was generated using voice recognition software. It may contain grammatical, syntax or spelling errors. Electronically signed by: Josep Sneed M.D. Laboratory Results 01/21/17 16:12 Red Blood Count 4.15, Mean Corpuscular Volume 92.5, Mean Corpuscular Hemoglobin 31.1, Mean Corpuscular Hemoglobin Concent 33.6, Mean Platelet Volume 11.2, Neutrophils (%) (Auto) 58.4, Lymphocytes (%) (Auto) 28.6, Monocytes (%) (Auto) 7.6, Eosinophils (%) (Auto) 5.1, Basophils (%) (Auto) 0.1, Neutrophils # (Auto) 4.68, Lymphocytes # (Auto) 2.30, Monocytes # (Auto) 0.61, Eosinophils # (Auto) 0.41, Basophils # (Auto) 0.01 01/21/17 16:12 Test 01/21/17 16:12 01/21/17 17:40 01/21/17 19:21 White Blood Count 8.03 K/uL (4.8-10.8) Red Blood Count 4.15 M/uL (4.2-5.4) Hemoglobin 12.9 g/dL (12.0-16.0) Hematocrit 38.4 % (37-47) Mean Corpuscular Volume 92.5 fL (80-100) Mean Corpuscular Hemoglobin 31.1 pg (25-34) Mean Corpuscular Hemoglobin Concent 33.6 g/dl (32-36) Platelet Count 162 K/uL (130-400) Mean Platelet Volume 11.2 fL (7.4-10.4) Neutrophils (%) (Auto) 58.4 % Lymphocytes (%) (Auto) 28.6 % Monocytes (%) (Auto) 7.6 % Eosinophils (%) (Auto) 5.1 % Basophils (%) (Auto) 0.1 % Neutrophils # (Auto) 4.68 K/uL (1.4-6.5) Lymphocytes # (Auto) 2.30 K/uL (1.2-3.4) Monocytes # (Auto) 0.61 K/uL (0.11-0.59) Eosinophils # (Auto) 0.41 K/uL (0-0.5) Basophils # (Auto) 0.01 K/uL (0-0.2) RDW Standard Deviation 42.1 fL (36.4-46.3) RDW Coefficient of Variation 12.4 % (11.5-14.5) Immature Granulocyte % (Auto) 0.2 % Immature Granulocyte # (Auto) 0.02 K/uL (0.00-0.02) Anion Gap 5.0 mmol/L (3-11) Est Creatinine Clear Calc Drug Dose 65.9 ml/min Estimated GFR () 87.5 Estimated GFR (Non- 75.5 BUN/Creatinine Ratio 10.9 (10-20) Calcium Level 9.6 mg/dl (8.5-10.1) Total Bilirubin 0.9 mg/dl (0.2-1) Direct Bilirubin 0.2 mg/dl (0-0.2) Aspartate Amino Transf (AST/SGOT) 19 U/L (15-37) Alanine Aminotransferase (ALT/SGPT) 22 U/L (12-78) Alkaline Phosphatase 93 U/L (45-117) Total Protein 6.9 gm/dl (6.4-8.2) Albumin 3.6 gm/dl (3.4-5.0) Globulin 3.3 gm/dl (2.5-4.0) Albumin/Globulin Ratio 1.1 (0.9-2) Thyroid Stimulating Hormone (TSH) 0.229 uIu/ml (0.300-4.500) [place] Level 1.0 mMOL/L (0.6-1.2) Ethyl Alcohol mg/dL < 3.0 mg/dl (0-3) Urine Color YELLOW Urine Appearance CLEAR (CLEAR) Urine pH 7.0 (4.5-7.5) Urine Specific [place] <= 1.005 (1.000-1.030) Urine Protein NEG (NEG) Urine Glucose (UA) NEG (NEG) Urine Ketones NEG (NEG) Urine Occult Blood NEG (NEG) Urine Nitrite NEG (NEG) Urine Bilirubin NEG (NEG) Urine Urobilinogen NEG (NEG) Urine Leukocyte Esterase SMALL (NEG) Urine RBC 0-4 /hpf (0-4) Urine WBC 5-10 /hpf (0-5) Urine Epithelial Cells 10-20 /lpf (0-5) Urine Bacteria NEG (NEG) Urine Opiates Screen NEG (NEG) Urine Methadone, Qualitative NEG (NEG) Urine Barbiturates NEG (NEG) Urine Phencyclidine (PCP) Level NEG (NEG) Ur Amphetamine/Methamphetamine NEG (NEG) MDMA (Ecstasy) Screen NEG (NEG) Urine Benzodiazepines Screen NEG (NEG) Urine Cocaine Metabolite NEG (NEG) Urine Marijuana (THC) NEG (NEG) Laboratory results reviewed by nv ED Course 1538: The patient was evaluated in room A5. A complete history and physical exam was performed. Medical Decision I reviewed the patient's past medical history, medications, and the nursing notes as described above. Differential diagnosis: worsening alison vs. medication side effect, dehydration , electrolyte abnormality, pneumonia, and UTI. The patient is a 56-year-old woman with a past medical history of bipolar disorder and psychosis with multiple psychiatric admissions in the past presents accompanied by son after worsening functional status and increasing frequency and severity over hallucinations since her discharge this past September. Arrival of the patient is in no acute distress and cooperative with tardive dyskinesia has been chronic since September as well as extrapyramidal symptoms that have been progressively worsening since September. Considering the patient's significant decline in functional status and mildly impairing medication adverse effects psych admission for medication optimization and side effect minimization could be beneficial for this complicated psychiatric patient. Clearance lab workup initiated. Labs unremarkable. X-ray of right shoulder negative in the setting of recent fall in the setting of her frequent falls due to her extrapyramidal symptoms. Patient is medically cleared and we will seek psych placement. Patient signed-out to Dr. Matthew. Medication Reconcilliation Current Medication List: was personally reviewed by me Blood Pressure Screening Patient's blood pressure: Normal blood pressure Impression Primary Impression: Alison Additional Impressions: Hallucinations Medication side effect Scribe Attestation The scribe's documentation has been prepared under my direction and personally reviewed by me in its entirety. I confirm that the note above accurately reflects all work, treatment, procedures, and medical decision making performed by me. Departure Information Referrals Abhinav Astorga M.D. (PCP) Forms HOME CARE DOCUMENTATION FORM, IMPORTANT VISIT INFORMATION Patient Instructions My [facility] Problem Qualifiers
[2017-01-21 16:46] LABS: BASO % 0.1 %; BASO ABS # 0.01 K/uL (0-0.2); COMPLETE YES; EOS % 5.1 %; HEMATOCRIT 38.4 % (37-47); IG% 0.2 %; LYMPH % 28.6 %; MEAN CELL VOLUME 92.5 fL (80-100); MEAN CORPUSCULAR HEMOGLOBIN 31.1 pg (25-34); MEAN CORPUSCULAR HGB CONC 33.6 g/dl (32-36); MEAN PLATELET VOLUME 11.2 fL (7.4-10.4); MONO % 7.6 %; NEUT % 58.4 %; PLATELET COUNT 162 K/uL (130-400); RED BLOOD COUNT 4.15 M/uL (4.2-5.4); WHITE BLOOD COUNT 8.03 K/uL (4.8-10.8)
[2017-01-21 17:04] LABS: BUN/CREATININE RATIO 10.9 (10-20); CALCIUM 9.6 mg/dl (8.5-10.1); CREATININE 0.85 mg/dl (0.60-1.20); POTASSIUM 3.6 mmol/L (3.5-5.1)
[2017-01-21 17:15] LABS: ALB/GLOB RATIO 1.1 (0.9-2); THYROID STIMULATING HORMONE 0.229 uIu/ml (0.300-4.500)
--- NOTE | 2017-01-21 17:38 | DIAGNOSTIC IMAGING REPORT ---
RIGHT SHOULDER MIN 2 VIEWS ROUTINE CLINICAL HISTORY: pain Right pain COMPARISON: None. DISCUSSION: Moderate degenerative change glenohumeral joint. Moderate degenerative change acromioclavicular joint. No evidence for fracture or dislocation. There is no evidence for soft tissue swelling. IMPRESSION: Moderate degenerative change. No acute process. The above report was generated using voice recognition software. It may contain grammatical, syntax or spelling errors. Electronically signed by: Josep Sneed M.D. 01/21/2017 5:36 PM Dictated Date/Time: 01/21/2017 5:35 PM
[2017-01-21 18:17] LABS: MANUAL MICROSCOPIC REQUIRED? YES; URINE APPEARANCE CLEAR (CLEAR); URINE BILIRUBIN NEG (NEG); URINE COLOR YELLOW; URINE NITRITE NEG (NEG); URINE SPECIFIC GRAVITY <= 1.005 (1.000-1.030); UROBILINOGEN NEG (NEG)
[2017-01-21 18:20] LABS: REVIEW REQ? NO
[2017-01-21 18:35] LABS: URINE BACTERIA NEG (NEG); URINE RBC 0-4 /hpf (0-4)
[2017-01-21 20:13] LABS: BENZODIAZEPINE, URINE NEG (NEG); COCAINE,URINE NEG (NEG); PHENCYCLIDINE, URINE NEG (NEG)
[2017-01-21] MEDS ORDERED: QUETIAPINE FUMARATE 200 MG TAB PO STA (20:58)
[2017-01-21] MEDS ORDERED: BENZTROPINE MESYLATE 1 MG TAB PO STA (20:58)
[2017-01-21] MEDS ORDERED: LITHIUM CARBONATE 300 MG TAB PO STA (20:58)
[2017-01-21] MEDS ORDERED: ATORVASTATIN 10 MG TAB PO ONE (21:00)
[2017-01-21] MEDS ORDERED: RISPERIDONE 1 MG TAB PO ONE (21:00)
[2017-01-21] MEDS ORDERED: PROPRANOLOL HCL 10 MG TAB PO ONE (21:00)
[2017-01-21 21:44] VITALS: BP 124/89; PULSE 65; O2SAT 99
--- NOTE | 2017-01-22 02:32 | EMERGENCY ROOM VISIT NOTE ---
ED Visit Note The patient was seen and medically cleared by Dr. Encarnacion. The patient was signed out to me pending placement in a mental health facility. Bed search is continuing as the patient has been rejected by several facilities. The patient was signed out to Dr. Rasheed.
--- NOTE | 2017-01-22 03:20 | EMERGENCY ROOM VISIT NOTE ---
ED Visit Note Patient seen by me at 3:20 AM patients in no distress has been cleared by the crisis counselor for follow-up patient will be discharged by me currently is stable for discharge Current/Historical Medications Scheduled Atorvastatin (Lipitor), 20 MG PO HS Benztropine Mesylate (Benztropine Mesylate), 0.5 MG PO TID Levothyroxine Sodium (Synthroid), 100 MCG PO DAILY [place] Carbonate ([place] Carbonate ER), 900 MG PO HS Propranolol (Inderal), 10 MG PO BID Quetiapine Fumarate (Seroquel), 200 MG PO HS Risperidone (Risperidone), 0.25 MG PO BID Tocopheryl Acet,Dl-Alpha (Vitamin E), 200 PO DAILY Scheduled PRN Lorazepam (Ativan), 1 MG PO BID PRN for Anxiety Allergies Coded Allergies: Penicillins (Verified Allergy, Unknown, UNKN, 06/27/15) Vital Signs Date Time Temp Pulse Resp B/P (MAP) Pulse Ox O2 Delivery O2 Flow Rate FiO2 01/21/17 21:44 65 18 124/89 99 Room Air Manual 01/21/17 18:18 64 20 119/80 99 Room Air 01/21/17 16:27 60 20 125/78 98 Room Air 01/21/17 14:29 36.5 91 20 121/83 98 Room Air Laboratory Results 01/21/17 16:12 Red Blood Count 4.15, Mean Corpuscular Volume 92.5, Mean Corpuscular Hemoglobin 31.1, Mean Corpuscular Hemoglobin Concent 33.6, Mean Platelet Volume 11.2, Neutrophils (%) (Auto) 58.4, Lymphocytes (%) (Auto) 28.6, Monocytes (%) (Auto) 7.6, Eosinophils (%) (Auto) 5.1, Basophils (%) (Auto) 0.1, Neutrophils # (Auto) 4.68, Lymphocytes # (Auto) 2.30, Monocytes # (Auto) 0.61, Eosinophils # (Auto) 0.41, Basophils # (Auto) 0.01 01/21/17 16:12 Test 01/21/17 16:12 01/21/17 17:40 01/21/17 19:21 White Blood Count 8.03 K/uL (4.8-10.8) Red Blood Count 4.15 M/uL (4.2-5.4) Hemoglobin 12.9 g/dL (12.0-16.0) Hematocrit 38.4 % (37-47) Mean Corpuscular Volume 92.5 fL (80-100) Mean Corpuscular Hemoglobin 31.1 pg (25-34) Mean Corpuscular Hemoglobin Concent 33.6 g/dl (32-36) Platelet Count 162 K/uL (130-400) Mean Platelet Volume 11.2 fL (7.4-10.4) Neutrophils (%) (Auto) 58.4 % Lymphocytes (%) (Auto) 28.6 % Monocytes (%) (Auto) 7.6 % Eosinophils (%) (Auto) 5.1 % Basophils (%) (Auto) 0.1 % Neutrophils # (Auto) 4.68 K/uL (1.4-6.5) Lymphocytes # (Auto) 2.30 K/uL (1.2-3.4) Monocytes # (Auto) 0.61 K/uL (0.11-0.59) Eosinophils # (Auto) 0.41 K/uL (0-0.5) Basophils # (Auto) 0.01 K/uL (0-0.2) RDW Standard Deviation 42.1 fL (36.4-46.3) RDW Coefficient of Variation 12.4 % (11.5-14.5) Immature Granulocyte % (Auto) 0.2 % Immature Granulocyte # (Auto) 0.02 K/uL (0.00-0.02) Anion Gap 5.0 mmol/L (3-11) Est Creatinine Clear Calc Drug Dose 65.9 ml/min Estimated GFR () 87.5 Estimated GFR (Non- 75.5 BUN/Creatinine Ratio 10.9 (10-20) Calcium Level 9.6 mg/dl (8.5-10.1) Total Bilirubin 0.9 mg/dl (0.2-1) Direct Bilirubin 0.2 mg/dl (0-0.2) Aspartate Amino Transf (AST/SGOT) 19 U/L (15-37) Alanine Aminotransferase (ALT/SGPT) 22 U/L (12-78) Alkaline Phosphatase 93 U/L (45-117) Total Protein 6.9 gm/dl (6.4-8.2) Albumin 3.6 gm/dl (3.4-5.0) Globulin 3.3 gm/dl (2.5-4.0) Albumin/Globulin Ratio 1.1 (0.9-2) Thyroid Stimulating Hormone (TSH) 0.229 uIu/ml (0.300-4.500) [place] Level 1.0 mMOL/L (0.6-1.2) Ethyl Alcohol mg/dL < 3.0 mg/dl (0-3) Urine Color YELLOW Urine Appearance CLEAR (CLEAR) Urine pH 7.0 (4.5-7.5) Urine Specific [place] <= 1.005 (1.000-1.030) Urine Protein NEG (NEG) Urine Glucose (UA) NEG (NEG) Urine Ketones NEG (NEG) Urine Occult Blood NEG (NEG) Urine Nitrite NEG (NEG) Urine Bilirubin NEG (NEG) Urine Urobilinogen NEG (NEG) Urine Leukocyte Esterase SMALL (NEG) Urine RBC 0-4 /hpf (0-4) Urine WBC 5-10 /hpf (0-5) Urine Epithelial Cells 10-20 /lpf (0-5) Urine Bacteria NEG (NEG) Urine Opiates Screen NEG (NEG) Urine Methadone, Qualitative NEG (NEG) Urine Barbiturates NEG (NEG) Urine Phencyclidine (PCP) Level NEG (NEG) Ur Amphetamine/Methamphetamine NEG (NEG) MDMA (Ecstasy) Screen NEG (NEG) Urine Benzodiazepines Screen NEG (NEG) Urine Cocaine Metabolite NEG (NEG) Urine Marijuana (THC) NEG (NEG) Medications Administered Medications (Trade) Dose Ordered Sig/Azeem Route Start Time Stop Time Status Last Admin Dose Admin Atorvastatin Calcium (Lipitor Tab) 20 mg NOW ONCE PO 01/21/17 21:00 01/21/17 21:03 DC 01/21/17 21:27 20 MG Propranolol HCl (Inderal Tab) 10 mg NOW ONCE PO 01/21/17 21:00 01/21/17 21:03 DC 01/21/17 21:24 10 MG Benztropine Mesylate (Cogentin Tab) 0.5 mg NOW STAT PO 01/21/17 20:58 01/21/17 21:03 DC 01/21/17 21:25 0.5 MG [place] Carbonate ([place] Carbonate Tab) 900 mg NOW STAT PO 01/21/17 20:58 01/21/17 21:03 DC 01/21/17 21:27 900 MG Quetiapine Fumarate (seroQUEL TAB) 200 mg NOW STAT PO 01/21/17 20:58 01/21/17 21:03 DC 01/21/17 21:27 200 MG Risperidone (Risperdal Tab) 0.25 mg NOW ONCE PO 01/21/17 21:00 01/21/17 21:03 DC 01/21/17 21:25 0.25 MG Departure Information Impression Primary Impression: Barabra Additional Impressions: Medication side effect Hallucinations Referrals Abhinav Astorag M.D. (PCP) Forms HOME CARE DOCUMENTATION FORM, IMPORTANT VISIT INFORMATION Patient Instructions [facility] Problem Qualifiers
== END 2017-01-22 03:42 | disposition home or self-care (01) ==
LOC: C.EDB 14:26 → C.EDA 01-22 03:42
DX: F30.9 Manic episode, unspecified (principal); R44.3 Hallucinations, unspecified; T43.595A Adverse effect of other antipsychotics and neuroleptics, initial encounter; F31.9 Bipolar disorder, unspecified; K21.9 Gastro-esophageal reflux disease without esophagitis; E78.5 Hyperlipidemia, unspecified; E03.9 Hypothyroidism, unspecified; M54.5 Low back pain; F20.9 Schizophrenia, unspecified; Z83.3 Family history of diabetes mellitus; Z79.899 Other long term (current) drug therapy

== ENCOUNTER 2017-01-22 12:57 | Emergency (ER) | payer OTHER ==
[~2017-01-22] VITALS: Ht 152.4 cm; Wt 72.2 kg
[~2017-01-22 12:57] MED LIST changes: +ATV/1 PO; +CGN1X PO; +PROP10TA7 PO; +RISP0.5T4 PO; -RSP2 PO
[2017-01-22 13:10] VITALS: TEMP 36.8; Ht 152.4 cm; Wt 72.2 kg
--- NOTE | 2017-01-22 14:05 | EMERGENCY ROOM VISIT NOTE ---
History Report prepared by Esme: Duyen Munoz Under the Supervision of: Dr. Guzman Carney M.D. First contact with patient: 13:22 Chief Complaint: MENTAL HEALTH EVALUATION Stated Complaint: MENTAL PROBLEMS, BRET IS EXPECTING HER History of Present Illness The patient is a 56 year old female who presents to the Emergency Room for a mental health evaluation. Per children, the patient has history of bipolar disorder. She has had a total of 4 breakdowns over a period of 20 years. Son states that over the last 3 years she has had 3 breakdowns, with the most recent one occurring in September 2016. He reports that this was the most extreme breakdown she has ever had and that she has never really fully recovered from it and returned to normal. She was treated as an inpatient for 10 days. Since then she has been having side effects from her medications and is currently on Cogentin. She is having trouble swallowing her pills and has to use applesauce to help get them down. Recently the patient has been experiencing visual hallucinations. She reports seeing bugs, spiders, and young children. Family states that she has been falling a lot recently as well. The patient was in the ED last night and was medically cleared. All of the local places for inpatient treatment were full at that time. The patient went home and her son called [facility] in [facility]. They have a bed available for the patient, but the patient was required to come back to the ED to be medically cleared. The patient denies suicidal or homicidal ideation. She denies auditory hallucinations. 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 She denies auditory hallucinations. Review of Systems All systems have been listed, reviewed, and are negative other than those previously mentioned. Please see Additional Medical History Sheet. Past Medical & Surgical Medical Problems: (1) Bipolar Disorder, Unspecified (2) Depressive Disorder Nec (3) Esophageal Reflux (4) Hyperlipidemia (5) Hypothyroidism (6) Hypothyroidism Nos (7) Lumbago (8) Schizophrenia Nos-Unspec Family History Diabetes mellitus Social History Smoking Status: Never Smoker Alcohol Use: heavy Marital Status: in relationship Housing Status: unknown Occupation Status: unemployed Current/Historical Medications Scheduled Atorvastatin (Lipitor), 20 MG PO HS Benztropine Mesylate (Benztropine Mesylate), 0.5 MG PO TID Levothyroxine Sodium (Synthroid), 100 MCG PO DAILY [place] Carbonate ([place] Carbonate ER), 900 MG PO HS Propranolol (Inderal), 10 MG PO BID Quetiapine Fumarate (Seroquel), 200 MG PO HS Risperidone (Risperidone), 0.25 MG PO BID Tocopheryl Acet,Dl-Alpha (Vitamin E), 200 PO DAILY Scheduled PRN Lorazepam (Ativan), 1 MG PO BID PRN for Anxiety Allergies Coded Allergies: Penicillins (Verified Allergy, Unknown, UNKN, 01/22/17) Physical Exam Vital Signs Date Time Temp Pulse Resp B/P (MAP) Pulse Ox O2 Delivery O2 Flow Rate FiO2 01/23/17 01:49 69 18 114/87 97 01/22/17 22:12 64 18 107/72 97 Room Air 01/22/17 18:37 86 16 127/80 98 Room Air 01/22/17 14:46 67 16 120/81 98 Room Air 01/22/17 13:10 36.8 87 18 115/83 99 Room Air Physical Exam GENERAL: Patient awake, alert, oriented x 3. Patient follows commands. Patient does not appear toxic. Patient is adequately hydrated and well- nourished. Patient has some facial contortions consistent with tardive dyskinesia. SKIN: No erythema, pallor, cyanosis or rash HEENT: Normal head, pupils equal, reactive to light and accommodation. Ears normal. Oral cavity and posterior pharynx appear normal. Neck: Without adenopathy, no neck vein distention. LUNGS: Clear to auscultation. No wheezes, no rales, no rhonchi. HEART: No murmurs. No gallops. No rubs ABDOMEN: Soft, nontender. EXTREMITIES: No signs of trauma or infection. NEUROLOGIC: Cranial nerves II-XII within normal limits. No gross motor sensory function deficits. PSYCH: Awake, alert, admits to visual hallucinations. Denies auditory hallucinations. Patient is not suicidal or homicidal. Medical Decision & Procedures Laboratory Results Test 01/22/17 13:41 Urine Opiates Screen NEG (NEG) Urine Methadone, Qualitative NEG (NEG) Urine Barbiturates NEG (NEG) Urine Phencyclidine (PCP) Level NEG (NEG) Ur Amphetamine/Methamphetamine NEG (NEG) MDMA (Ecstasy) Screen NEG (NEG) Urine Benzodiazepines Screen NEG (NEG) Urine Cocaine Metabolite NEG (NEG) Urine Marijuana (THC) NEG (NEG) Laboratory results as stated above per my review. ED Course 1322: Past medical records reviewed. The patient was evaluated in room A6. A complete history and physical examination was performed. 1500: The patient was signed out to Dr. Jasso at the change of shift. Medical Decision Differential diagnoses includes schizophrenia, bipolar disorder, acute psychosis. The patient was seen here yesterday with the same issues. She was unable to be placed in a psychiatric facility close to here. The patient went home but is still having the same problems and would like to be admitted to a psychiatric facility. Family did research and found a place that would accept her pending another medical clearance. Labs were obtained within the past 24 hours. I did repeat a toxicology screen. The psych liaison team is making sure that the facility that the family called is still willing to accept the patient. The case was signed off to Dr. Jasso at change of shift. Impression Primary Impression: Bipolar disorder Additional Impression: Visual hallucinations Scribe Attestation The scribe's documentation has been prepared under my direction and personally reviewed by me in its entirety. I confirm that the note above accurately reflects all work, treatment, procedures, and medical decision making performed by me. Departure Information Dispostion Still a Patient Referrals Abhinav Astorga M.D. (PCP) Forms HOME CARE DOCUMENTATION FORM, IMPORTANT VISIT INFORMATION Patient Instructions My [facility] Problem Qualifiers Primary Impression: Bipolar disorder
[2017-01-22 15:20] LABS: BENZODIAZEPINE, URINE NEG (NEG); COCAINE,URINE NEG (NEG); PHENCYCLIDINE, URINE NEG (NEG)
[2017-01-22] MEDS ORDERED: LORAZEPAM 2 MG/ML 1 ML VIAL ONE (15:29)
[2017-01-22] MEDS ORDERED: LORAZEPAM 2 MG/ML 1 ML VIAL IV STA (15:30)
[2017-01-22] MEDS ORDERED: NURSING VERBAL MED ORDER ONE (15:45)
--- NOTE | 2017-01-22 22:53 | EMERGENCY ROOM VISIT NOTE ---
ED Visit Note The patient was signed out to me awaiting response from [facility]. They declined the patient has she did not meet criteria for admission there. The son called the patient's psychiatrist from [facility], Dr. Barrios who is not biotech production specialist. He stated that he would accept her but the patient would have to be accepted by the on-call psychiatrist there. The on-call psychiatrist they did not feel the patient meets criteria for admission and is unwilling to admit the patient. The son is currently awaiting to talk to the director of the hospital to see if he can assist in having the patient admitted. The patient is currently not homicidal or suicidal. She is not a 302. We are pending placement of the patient to [facility]. If not, the patient will be discharged home unless anything else changes. Signed out to Dr. Hope at 11pm.
[2017-01-23 01:49] VITALS: BP 114/87; PULSE 69; O2SAT 97
--- NOTE | 2017-01-23 22:54 | EMERGENCY ROOM VISIT NOTE ---
ED Visit Note First contact with patient: 01:15 Pt signed out to me by Dr. Jasso. Pt transferred to [facility] after family aided in making arrangements. No other issues noted during my time with patient after sign out.
== END 2017-01-23 01:50 | disposition short-term general hospital (02) ==
LOC: C.EDB 12:59 → C.EDA 01-23 01:50
DX: F31.9 Bipolar disorder, unspecified (principal); F20.9 Schizophrenia, unspecified; Z79.899 Other long term (current) drug therapy; K21.9 Gastro-esophageal reflux disease without esophagitis; E78.5 Hyperlipidemia, unspecified; E03.9 Hypothyroidism, unspecified; M54.5 Low back pain; Z83.3 Family history of diabetes mellitus; G24.01 Drug induced subacute dyskinesia

== ENCOUNTER 2017-06-25 17:20 | Inpatient (IN) | payer OTHER ==
[~2017-06-25] VITALS: Ht 154.9 cm; Wt 71.0 kg
[~2017-06-25 17:20] MED LIST changes: +BENZ-88 PO; -CGN1X PO
--- NOTE | 2017-06-25 17:50 | EMERGENCY ROOM VISIT NOTE ---
History Report prepared by Esme: Jojo Wilhelm Under the Supervision of: Dr. Avila Murillo M.D. First contact with patient: 17:36 Chief Complaint: NEURO SYMPTOMS Stated Complaint: TICKS, CONFUSION Nursing Triage Summary: Pt presents to triage with tardive diskenesia, symptoms started yesterday. Pt has hx of anxiety/dpn, takes lithium and several antidepressants. History of Present Illness The patient is a 57 year old female who presents to the Emergency Room with complaints of worsening neuro symptoms that began yesterday. She has associated head, eye, and tongue ticks. She is accompanied by her son who states that three days ago, she only had small eye twitches. The patient now presents to the ED with tardive dyskinesia symptoms. She states she is having a difficult time eating and breathing because of her symptoms. Her son also reports that she has had three "breakdowns" in the past year and has never fully recovered. He also notes that she is prescribed Seroquel. which she stopped taking because of her symptoms, and then began taking again three days ago. Source of History: patient, family (son) History Limited By: other (condition) Onset: this morning Timing: worsening Note: Positive head, eye, and tongue ticks. Having a difficult time eating and breathing due to symptoms. Review of Systems ROS limited due to patient's condition. Past Medical & Surgical Medical Problems: (1) Bipolar Disorder, Unspecified (2) Depressive Disorder Nec (3) Esophageal Reflux (4) Hyperlipidemia (5) Hypothyroidism (6) Hypothyroidism Nos (7) Lumbago (8) Schizophrenia Nos-Unspec Family History Diabetes mellitus High blood pressure Mental disorder Social History Smoking Status: Never Smoker Smokeless Tobacco Use: No Alcohol Use: none, heavy Marital Status: in relationship Housing Status: lives with significant other () Occupation Status: unemployed Current/Historical Medications Scheduled Atorvastatin (Lipitor), 20 MG PO HS Benztropine Mesylate (Benztropine Mesylate), 0.5 MG PO TID Donepezil HCl (Donepezil HCl), 5 MG PO QAM Levothyroxine Sodium (Synthroid), 100 MCG PO QPM [place] Carbonate ([place] Carbonate ER), 900 MG PO HS Propranolol (Inderal), 10 MG PO BID Quetiapine Fumarate (Seroquel), 200 MG PO BID Quetiapine Fumarate (Seroquel), 50 MG PO BID Tocopheryl Acet,Dl-Alpha (Vitamin E), 200 PO QAM Allergies Coded Allergies: Penicillins (Verified Allergy, Unknown, RASH, 02/23/17) Physical Exam Vital Signs Date Time Temp Pulse Resp B/P (MAP) Pulse Ox O2 Delivery O2 Flow Rate FiO2 06/25/17 22:23 57 130/75 97 Room Air 06/25/17 20:23 67 130/75 98 Room Air 06/25/17 17:23 36.5 59 18 118/79 96 Room Air Physical Exam GENERAL: Patient is a healthy-appearing well-nourished female. HEAD: Normocephalic atraumatic EYES: Ocular movements intact pupils equal and react to light OROPHARYNX mucous membranes are moist no exudates present no erythema or edema present NECK: Supple no nuchal rigidity CHEST: Good equal expansion LUNGS: Clear and equal to auscultation CARDIAC: Normal S1 and S2 ABDOMEN: Soft nontender no guarding BACK: No CVA tenderness EXTREMITIES: No pain upon palpation normal muscle strength in all groups no clubbing cyanosis or edema NEURO: Patient is following commands and answering questions appropriately. Alert and oriented x3. Chorionic movements of her mouth that are severe in nature. Cranial Nerves 2-12 grossly intact. Medical Decision & Procedures Laboratory Results 06/25/17 18:06 Red Blood Count 4.62, Mean Corpuscular Volume 89.6, Mean Corpuscular Hemoglobin 30.1, Mean Corpuscular Hemoglobin Concent 33.6, Mean Platelet Volume 11.1, Neutrophils (%) (Auto) 57.6, Lymphocytes (%) (Auto) 30.7, Monocytes (%) (Auto) 7.1, Eosinophils (%) (Auto) 4.2, Basophils (%) (Auto) 0.2, Neutrophils # (Auto) 3.72, Lymphocytes # (Auto) 1.98, Monocytes # (Auto) 0.46, Eosinophils # (Auto) 0.27, Basophils # (Auto) 0.01 06/25/17 18:06 Test 06/25/17 18:06 06/25/17 18:07 White Blood Count 6.45 K/uL (4.8-10.8) Red Blood Count 4.62 M/uL (4.2-5.4) Hemoglobin 13.9 g/dL (12.0-16.0) Hematocrit 41.4 % (37-47) Mean Corpuscular Volume 89.6 fL (80-100) Mean Corpuscular Hemoglobin 30.1 pg (25-34) Mean Corpuscular Hemoglobin Concent 33.6 g/dl (32-36) Platelet Count 182 K/uL (130-400) Mean Platelet Volume 11.1 fL (7.4-10.4) Neutrophils (%) (Auto) 57.6 % Lymphocytes (%) (Auto) 30.7 % Monocytes (%) (Auto) 7.1 % Eosinophils (%) (Auto) 4.2 % Basophils (%) (Auto) 0.2 % Neutrophils # (Auto) 3.72 K/uL (1.4-6.5) Lymphocytes # (Auto) 1.98 K/uL (1.2-3.4) Monocytes # (Auto) 0.46 K/uL (0.11-0.59) Eosinophils # (Auto) 0.27 K/uL (0-0.5) Basophils # (Auto) 0.01 K/uL (0-0.2) RDW Standard Deviation 41.8 fL (36.4-46.3) RDW Coefficient of Variation 12.7 % (11.5-14.5) Immature Granulocyte % (Auto) 0.2 % Immature Granulocyte # (Auto) 0.01 K/uL (0.00-0.02) Anion Gap 7.0 mmol/L (3-11) Est Creatinine Clear Calc Drug Dose 59.0 ml/min Estimated GFR () 81.1 Estimated GFR (Non- 70.0 BUN/Creatinine Ratio 17.1 (10-20) Calcium Level 9.0 mg/dl (8.5-10.1) Total Bilirubin 1.1 mg/dl (0.2-1) Direct Bilirubin 0.3 mg/dl (0-0.2) Aspartate Amino Transf (AST/SGOT) 14 U/L (15-37) Alanine Aminotransferase (ALT/SGPT) 18 U/L (12-78) Alkaline Phosphatase 102 U/L (45-117) Total Protein 7.3 gm/dl (6.4-8.2) Albumin 4.0 gm/dl (3.4-5.0) Thyroid Stimulating Hormone (TSH) 0.820 uIu/ml (0.300-4.500) Ethyl Alcohol mg/dL < 3.0 mg/dl (0-3) Bedside Glucose 87 mg/dl (70-90) Labs reviewed by ED physician. Medications Administered Medications (Trade) Dose Ordered Sig/Azeem Route Start Time Stop Time Status Last Admin Dose Admin Trazodone HCl (Desyrel Tab) 50 mg NOW STAT PO 06/25/17 18:03 06/25/17 18:05 DC 06/25/17 18:15 50 MG Sodium Chloride 1,000 ml @ 999 mls/hr Q1H1M STAT IV 06/25/17 19:20 06/25/17 20:20 DC 06/25/17 19:20 999 MLS/HR ECG Indication: other ([place] overdose ) Rate (beats per minute): 56 Rhythm: sinus bradycardia Findings: T-wave inversion (Anterior), other (QT is 452, and QTC is 436) Change: Patient's electrocardiogram per my interpretation. ED Course 1741: Past medical records reviewed. The patient was evaluated in room B8. A complete history and physical examination was performed. 1802: Trazodone HCl 50 mg PO 1918: I discussed the patient's case with Poison Control. They said to give her fluids, get an EKG, and monitor her lithium again in three hours. 1929: Upon reexamination the patient is content. I discussed results and treatment plan with the patient. She verbalizes agreement and understanding. I spoke with Dr. Silver from the [facility] Hospitalist Service. The patient will be evaluated for further management. Medical Decision Tardive dyskinesia and lithium toxicity This is a 57-year-old female who presents emergency Department with a large amount of tardive dyskinesia. The patient's family has been trying with her medications and had weaned her off her Seroquel however then placed her back on it due to the patient not sleeping. Upon arrival to the emergency department the patient has a large amount of tardive dyskinesia. She was found to have an elevated lithium level. An IV was established, patient given normal saline bolus. I'm concerned that the patient will be unable to drink fluids due to how severe her symptoms are so I did discuss the case with the hospitalist service as well as poison control. The patient was also discussed with psychiatry who recommended stopping Seroquel and starting the patient and trazodone. Patient and family were in agreement with the treatment plan. Medication Reconcilliation Current Medication List: was personally reviewed by me Blood Pressure Screening Patient's blood pressure: Normal blood pressure Blood pressure disposition: Did not require urgent referral Consults Time Called: 1914 Consulting Physician: Poison Control Returned Call: 1918 Give her fluids, get an EKG, and monitor her lithium again in three hours. Additional Consults: Time Called: 1926 Consulted Physician: Dr. Grimaldo, [facility] Returned Call: 1929 Impression Primary Impression: Tardive dyskinesia Additional Impression: [place] overdose Scribe Attestation The scribe's documentation has been prepared under my direction and personally reviewed by me in its entirety. I confirm that the note above accurately reflects all work, treatment, procedures, and medical decision making performed by me. Departure Information Dispostion Being Evaluated By Hospitalist Referrals Abhinav Astorga M.D. (PCP) Patient Instructions My [facility] Problem Qualifiers Additional Impression: [place] overdose Encounter type: initial encounter Injury intent: undetermined intent Qualified Codes: T56.894A - Toxic effect of other metals, undetermined, initial encounter
[2017-06-25] MEDS ORDERED: TRAZODONE HCL 50 MG TAB PO STA ×2 (18:03→23:22)
--- NOTE | 2017-06-25 18:09 | Psych Management Progress Note ---
Psychiatry Miscellaneous Date of Service: Jun 25, 2017. Case reviewed with Dr. Murillo due to complexity. Patient is having mouth movements, some issues with chewing/possibly swallow due to dyskinesia. Family states not on Risperdal, Seroquel has been tapered from 250 mg BID off over several weeks, movements had improved until they restarted Seroquel 100 mg po BID due to sleeplessness. They were concerned that she would become manic. No fever, no confusion per Dr. Murillo, no muscle pain. [place] level ordered, discussed that will likely be low due to super trough. Reviewed (brief) last stay on inpatient unit 09/29, has been to ED several times since. He reports she is following with Dr. Chadwick. Dr. Murillo to direct family to hold Seroquel (reviewed that low risk of withdraw dyskinesia, unclear if tardive as unclear at this point if permanent). Will continue Cogentin 0.5 mg TID for now as symptoms improved. Family to contact regular prescriber on Tuesday. In interim, recommend avoid Vistaril as also anticholinergic, would recommend trazodone 50 mg-100 mg hs prn.
[2017-06-25 18:22] LABS: BASO % 0.2 %; BASO ABS # 0.01 K/uL (0-0.2); EOS % 4.2 %; EOS ABS # 0.27 K/uL (0-0.5); HEMATOCRIT 41.4 % (37-47); HEMOGLOBIN 13.9 g/dL (12.0-16.0); IG# 0.01 K/uL (0.00-0.02); LYMPH % 30.7 %; LYMPH ABS # 1.98 K/uL (1.2-3.4); MEAN CELL VOLUME 89.6 fL (80-100); MEAN CORPUSCULAR HEMOGLOBIN 30.1 pg (25-34); MEAN CORPUSCULAR HGB CONC 33.6 g/dl (32-36); MEAN PLATELET VOLUME 11.1 fL (7.4-10.4); MONO % 7.1 %; MONO ABS # 0.46 K/uL (0.11-0.59); NEUT % 57.6 %; NEUT ABS # 3.72 K/uL (1.4-6.5); PLATELET COUNT 182 K/uL (130-400); RED CELL DISTRIBUTION WIDTH CV 12.7 % (11.5-14.5); RED CELL DISTRIBUTION WIDTH SD 41.8 fL (36.4-46.3); WHITE BLOOD COUNT 6.45 K/uL (4.8-10.8)
[2017-06-25] MEDS ORDERED: BENZ0.5T2 PO (18:28)
[2017-06-25] MEDS ORDERED: SRQ/50 PO (18:28)
[2017-06-25] MEDS ORDERED: ARC5 PO (18:28)
[2017-06-25 18:38] LABS: CREATININE 0.9 mg/dl (0.60-1.20); POTASSIUM 3.7 mmol/L (3.5-5.1)
[2017-06-25 18:49] LABS: TOTAL PROTEIN 7.3 gm/dl (6.4-8.2)
[2017-06-25] MEDS ORDERED: SODIUM CHLORIDE 0.9% 1000ML 1,000 ML IV STA (19:20)
[2017-06-25] MEDS ORDERED: ALUMINUM/MAGNESIUM/SIMETH (MAALOX MAX) 30 ML UDC PO PRN (22:30)
[2017-06-25] MEDS ORDERED: ACETAMINOPHEN 325 MG TAB PO PRN (22:30)
[2017-06-25] MEDS ORDERED: ONDANSETRON INJ 2 MG/ML 2 ML VIAL IV PRN (22:30)
[2017-06-25] MEDS ORDERED: MAGNESIUM HYDROXIDE SUSP 30 ML UDC PO PRN (22:30)
[2017-06-25] MEDS ORDERED: POLYETHYLENE (MIRALAX) 17 GM PACK PO PRN (22:30)
--- NOTE | 2017-06-25 23:00 | History and Physical ---
History & Physical Date & Time of Service: Jun 25, 2017 at 22:37 Chief Complaint: Ticks, Confusion Primary Care Physician: Abhinav Astorga M.D. History of Present Illness Source: patient, family, hospital records Patient is a 57 year old female with an extensive mental health history who is here due to worsening facial movements due to psychiatric medications. Recently the patient has been trying to taper down her seroquel from 250mg bid, but due to sleeplessness she has continued seroquel at 100mg po bid. She came to the ED as she has been having worsening movements of her mouth, eyes and facial muscles. Sons notes that this has been ongoing for a few months but has become substantially worse over the last couple of days. In the ED the patient was found to have an elevated lithium level of 2.4. Dr. Rodriguez saw the patient in the ED and suggested stopping the lithium and seroquel for now and trying trazodone 50-100mg hs prn. The patient follows with Dr. Chadwick as an outpatient. Poison control was contacted and they suggested repeating the lithium 2 hours from the original lab draw. A EKG in the ED showed T wave inversion and a QTC of 436. The patient is comfortable and has not been having any other concerning symptoms. Past Medical/Surgical History Bipolar 1 disorder Hypothyroidism Hyperlipidemia Family History Diabetes mellitus High blood pressure Mental disorder Social History Smoking Status: Never Smoker Smokeless Tobacco Use: No Drug Use: none Marital Status: in relationship Occupational Status: unemployed Immunizations History of Influenza Vaccine: Unknown History of Tetanus Vaccine?: Unknown History of Pneumococcal: Unknown History of Hepatitis B Vaccine: Unknown Multi-Drug Resistant Organisms History of MDRO: No Allergies Coded Allergies: Penicillins (Verified Allergy, Unknown, RASH, 02/23/17) Home Medications Scheduled Atorvastatin (Lipitor), 20 MG PO HS Benztropine Mesylate (Benztropine Mesylate), 0.5 MG PO TID Donepezil HCl (Donepezil HCl), 5 MG PO QAM Levothyroxine Sodium (Synthroid), 100 MCG PO QPM [place] Carbonate ([place] Carbonate ER), 900 MG PO HS Propranolol (Inderal), 10 MG PO BID Quetiapine Fumarate (Seroquel), 200 MG PO BID Quetiapine Fumarate (Seroquel), 50 MG PO BID Tocopheryl Acet,Dl-Alpha (Vitamin E), 200 PO QAM Review of Systems Constitutional: No fever, No chills, No sweats Respiratory: No cough, No sputum, No shortness of breath Cardiovascular: No chest pain, No edema, No claudication, No palpitations Abdomen: No pain, No nausea, No vomiting, No diarrhea, No constipation Musculoskeletal: No joint pain, No muscle pain, No swelling Genitourinary - Female: No dysuria, No urinary frequency Neurologic: + problem reported (facial twitching ), No paralysis, No weakness Hematologic / Lymphatic: No abnormal bleeding/bruising Physical Exam Vital Signs Date Time Temp Pulse Resp B/P (MAP) Pulse Ox O2 Delivery O2 Flow Rate FiO2 06/25/17 22:23 57 130/75 97 Room Air 06/25/17 20:23 67 130/75 98 Room Air 06/25/17 17:23 36.5 59 18 118/79 96 Room Air General Appearance: WD/WN, no apparent distress, + pertinent finding (rapid alternating tongue movements, with eyes opening and closing and facial twitching ) ENT: hearing grossly normal, pharynx normal Neck: thyroid normal, no JVD, trachea midline Respiratory/Chest: lungs clear, no respiratory distress, no accessory muscle use Cardiovascular: regular rate, rhythm, no murmur, normal peripheral pulses Abdomen/GI: normal bowel sounds, non tender, soft Back: normal inspection, no CVA tenderness, no muscle spasm Extremities/Musculoskelatal: normal inspection, no pedal edema, normal range of motion Neurologic/Psych: alert, normal mood/affect, oriented x 3 Skin: normal color, warm/dry, no rash Diagnostics Laboratory Results Results Past 24 Hours Test 06/25/17 18:06 06/25/17 18:07 06/25/17 21:47 Range/Units White Blood Count 6.45 4.8-10.8 K/uL Red Blood Count 4.62 4.2-5.4 M/uL Hemoglobin 13.9 12.0-16.0 g/dL Hematocrit 41.4 37-47 % Mean Corpuscular Volume 89.6 80-100 fL Mean Corpuscular Hemoglobin 30.1 25-34 pg Mean Corpuscular Hemoglobin Concent 33.6 32-36 g/dl Platelet Count 182 130-400 K/uL Mean Platelet Volume 11.1 7.4-10.4 fL Neutrophils (%) (Auto) 57.6 % Lymphocytes (%) (Auto) 30.7 % Monocytes (%) (Auto) 7.1 % Eosinophils (%) (Auto) 4.2 % Basophils (%) (Auto) 0.2 % Neutrophils # (Auto) 3.72 1.4-6.5 K/uL Lymphocytes # (Auto) 1.98 1.2-3.4 K/uL Monocytes # (Auto) 0.46 0.11-0.59 K/uL Eosinophils # (Auto) 0.27 0-0.5 K/uL Basophils # (Auto) 0.01 0-0.2 K/uL RDW Standard Deviation 41.8 36.4-46.3 fL RDW Coefficient of Variation 12.7 11.5-14.5 % Immature Granulocyte % (Auto) 0.2 % Immature Granulocyte # (Auto) 0.01 0.00-0.02 K/uL Sodium Level 136 136-145 mmol/L Potassium Level 3.7 3.5-5.1 mmol/L Chloride Level 106 98-107 mmol/L Carbon Dioxide Level 23 21-32 mmol/L Anion Gap 7.0 3-11 mmol/L Blood Urea Nitrogen 15 7-18 mg/dl Creatinine 0.90 0.60-1.20 mg/dl Est Creatinine Clear Calc Drug Dose 59.0 ml/min Estimated GFR () 81.1 Estimated GFR (Non- 70.0 BUN/Creatinine Ratio 17.1 10-20 Random Glucose 85 70-99 mg/dl Calcium Level 9.0 8.5-10.1 mg/dl Total Bilirubin 1.1 0.2-1 mg/dl Direct Bilirubin 0.3 0-0.2 mg/dl Aspartate Amino Transf (AST/SGOT) 14 15-37 U/L Alanine Aminotransferase (ALT/SGPT) 18 12-78 U/L Alkaline Phosphatase 102 45-117 U/L Total Protein 7.3 6.4-8.2 gm/dl Albumin 4.0 3.4-5.0 gm/dl Thyroid Stimulating Hormone (TSH) 0.820 0.300-4.500 uIu/ml [place] Level 2.4 0.6-1.2 mMOL/L Ethyl Alcohol mg/dL < 3.0 0-3 mg/dl Bedside Glucose 87 70-90 mg/dl EKG T-wave inversion (Anterior), other (QT is 452, and QTC is 436) Impression Assessment and Plan 57 year old female with an extensive mental health history here with worsening dyskinesia secondary to psychiatric medications Tardive dyskinesia secondary to seroquel - hx of Bipolar 1 disorder - hold seroquel - can use trazodone 100mg qhs for sleep - continue propanolol and benztropine - Psych consult [place] Toxicity - hold lithium - lithium 2.4 in the ED, repeat ordered - 150mls of normal saline - EKG with t wave inversion and QTC of 436m repeat EKG in the AM Alzheimers - continue aricept Hypothyroidism - continue levothyroxine - TSH normal HLD - continue statin DVT - lovenox subq Attending addendum: I have physically seen this patient, have supervised the medical residents activities, and agree with the H&P unless as otherwise noted. Assessment and Plan: Severe tardive dyskinesia secondary to medication/lithium toxicity/Bipolar disorder-- Hold Seroquel and lithium Serial lithium levels, with initial at 2.4. Continue trazodone, propranolol and benztropine Consult psychiatry. Normal saline at 150 mils per hour. Daily CBC with differential, chemistry profile and magnesium level. Along with lithium level. Level of Care Telemetry Advanced Directives Existing Advance Directive: No Existing Living Will: No Existing Power of Bibliographic Services Specialist: No Resuscitation Status FULL RESUSCITATION VTE Prophylaxis VTE Risk Assessment Done? Y/N: Yes Risk Level: Moderate Given or contraindicated: Enoxaparin (Lovenox)SQ Social Service Consult None Apply
[2017-06-25] MEDS: SODIUM CHLORIDE 0.9% 1000ML 1,000 ML IV SCH (23:42)
[2017-06-26] VITALS (10 sets, daily range): BP systolic 91–132; BP diastolic 51–69; PULSE 53–92; TEMP 36.6–37.5; O2SAT 94–97; Ht 154.9 cm; Wt 71.0 kg
[2017-06-26] MEDS: SODIUM CHLORIDE 0.9% 1000ML 1,000 ML IV SCH ×3 (06:29→20:22)
[2017-06-26] MEDS: BENZTROPINE MESYLATE 0.5 MG TAB PO SCH ×2 (07:36→13:31)
[2017-06-26] MEDS: PROPRANOLOL HCL 10 MG TAB PO SCH ×2 (07:36→20:23)
[2017-06-26] MEDS: ENOXAPARIN 40 MG/0.4 ML SYR SC SCH (10:01)
--- NOTE | 2017-06-26 12:47 | Family Medicine Progress Note ---
Progress Note Date of Service Jun 26, 2017. Subjective Pt evaluation today including: conversation w/ patient, physical exam, chart review, lab review, review of inpatient medication list Pain: No pain reported PO Intake: Tolerating Po intake Voiding: no voiding problems Ms. Waterman reports her facial movements are debilitating. She states she has had these symptoms for the last few weeks and they have been getting worse. In additional to her facial movements, she also reports blurry vision and a bilateral hand tremor. She denies chest pain, shortness of breath, n/v, fever, chills. Constitutional: No fever, No chills Eyes: + problem reported (visual problems) Respiratory: No cough, No shortness of breath Cardiovascular: No chest pain Abdomen: No pain, No nausea, No vomiting, No diarrhea, No constipation Neurologic: No numbness/tingling All Other Systems: Reviewed and Negative Medications Current Inpatient Medications Medications (Trade) Dose Ordered Sig/Azeem Route Start Time Stop Time Status Last Admin Dose Admin Enoxaparin Sodium (Lovenox Inj) 40 mg Q24H SC 06/26/17 09:30 07/26/17 09:29 06/26/17 10:01 40 MG Acetaminophen (Tylenol Tab) 650 mg Q4H PRN PO 06/25/17 22:30 07/25/17 22:29 Al Hydrox/Mg Hydrox/Simethicone (Maalox Max Susp) 15 ml Q4H PRN PO 06/25/17 22:30 07/25/17 22:29 Magnesium Hydroxide (Milk Of Magnesia Susp) 30 ml Q12H PRN PO 06/25/17 22:30 07/25/17 22:29 Ondansetron HCl (Zofran Inj) 4 mg Q6H PRN IV 06/25/17 22:30 07/25/17 22:29 Polyethylene (Miralax Powder Packet) 17 gm DAILY PRN PO 06/25/17 22:30 07/25/17 22:29 Atorvastatin Calcium (Lipitor Tab) 20 mg HS PO 06/26/17 21:00 07/26/17 20:59 Benztropine Mesylate (Cogentin Tab) 0.5 mg TID PO 06/26/17 09:00 07/26/17 08:59 06/26/17 07:36 0.5 MG Levothyroxine Sodium (Synthroid Tab) 100 mcg QPM PO 06/26/17 21:00 07/26/17 20:59 Propranolol HCl (Inderal Tab) 10 mg BID PO 06/26/17 09:00 07/26/17 08:59 06/26/17 07:36 10 MG Trazodone HCl (Desyrel Tab) 100 mg QPM PO 06/26/17 21:00 07/26/17 20:59 Sodium Chloride 1,000 ml @ 150 mls/hr Q6H40M IV 06/25/17 23:59 07/25/17 23:58 06/26/17 06:29 150 MLS/HR Objective Vital Signs Date Time Temp Pulse Resp B/P (MAP) Pulse Ox O2 Delivery O2 Flow Rate FiO2 06/26/17 11:15 37.2 53 20 98/62 (74) 95 Room Air 06/26/17 08:00 Room Air 06/26/17 07:50 36.8 56 18 99/57 (71) 97 06/26/17 07:30 64 06/26/17 05:15 37.0 53 20 108/64 (79) 97 Room Air 06/26/17 04:15 Room Air 06/26/17 00:12 Room Air 06/26/17 00:10 36.6 68 16 132/69 Room Air 06/25/17 22:23 57 130/75 97 Room Air 06/25/17 20:23 67 130/75 98 Room Air 06/25/17 17:23 36.5 59 18 118/79 96 Room Air Physical Exam General Appearance: WD/WN, no apparent distress, + pertinent finding ( repetitive blinking, facial twitching and protrusion of tongue) Respiratory/Chest: lungs clear, normal breath sounds, no respiratory distress, no accessory muscle use Cardiovascular: regular rate, rhythm, no edema, no gallop, no murmur Abdomen: non tender, soft Extremities: + pertinent finding (bilateral action tremor of hands) 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 tested, alert, normal mood/affect, oriented x 3 Laboratory Results Last 24 Hours Test 06/25/17 18:06 06/25/17 18:07 06/25/17 21:47 06/26/17 07:49 White Blood Count 6.45 K/uL Red Blood Count 4.62 M/uL Hemoglobin 13.9 g/dL Hematocrit 41.4 % Mean Corpuscular Volume 89.6 fL Mean Corpuscular Hemoglobin 30.1 pg Mean Corpuscular Hemoglobin Concent 33.6 g/dl Platelet Count 182 K/uL Mean Platelet Volume 11.1 fL Neutrophils (%) (Auto) 57.6 % Lymphocytes (%) (Auto) 30.7 % Monocytes (%) (Auto) 7.1 % Eosinophils (%) (Auto) 4.2 % Basophils (%) (Auto) 0.2 % Neutrophils # (Auto) 3.72 K/uL Lymphocytes # (Auto) 1.98 K/uL Monocytes # (Auto) 0.46 K/uL Eosinophils # (Auto) 0.27 K/uL Basophils # (Auto) 0.01 K/uL RDW Standard Deviation 41.8 fL RDW Coefficient of Variation 12.7 % Immature Granulocyte % (Auto) 0.2 % Immature Granulocyte # (Auto) 0.01 K/uL Sodium Level 136 mmol/L Potassium Level 3.7 mmol/L Chloride Level 106 mmol/L Carbon Dioxide Level 23 mmol/L Anion Gap 7.0 mmol/L Blood Urea Nitrogen 15 mg/dl Creatinine 0.90 mg/dl Est Creatinine Clear Calc Drug Dose 59.0 ml/min Estimated GFR () 81.1 Estimated GFR (Non- 70.0 BUN/Creatinine Ratio 17.1 Random Glucose 85 mg/dl Calcium Level 9.0 mg/dl Total Bilirubin 1.1 mg/dl Direct Bilirubin 0.3 mg/dl Aspartate Amino Transf (AST/SGOT) 14 U/L Alanine Aminotransferase (ALT/SGPT) 18 U/L Alkaline Phosphatase 102 U/L Total Protein 7.3 gm/dl Albumin 4.0 gm/dl Thyroid Stimulating Hormone (TSH) 0.820 uIu/ml [place] Level 2.4 mMOL/L 2.0 mMOL/L 2.4 mMOL/L Ethyl Alcohol mg/dL < 3.0 mg/dl Bedside Glucose 87 mg/dl Prothrombin Time 10.5 SECONDS Prothromb Time International Ratio 1.0 Assessment and Plan Ms. Waterman is a 57 year old female with an extensive mental health history here with worsening suspected tardive dyskinesia as well as an elevated serum lithium level Tardive dyskinesia - hx of Bipolar 1 disorder - hold seroquel, - started on trazodone 100mg qhs for sleep in the interim - continue propanolol - Thank you to psych and neuro for consult - hold seroquel - but movements may be appearing worse due to lithium toxicity - hold benztropine since no dystonia - possibly use agent such as ingrezza in the future [place] Toxicity - hold lithium - lithium 2.4 this am - recheck down to 1.3. - recheck tomorrow AM - unsure of the cause of toxicity -> no recent NSAID use, no vomiting, no diarrhea, no recent changes to dosage or addition of new medications and she has never had a high lithium level before. - did have ? viral uri within a week period. - continue 150mls/hr of normal saline. - EKG in ED showed T wave inversion and QTc of 436ms - repeat EKG today showed resolution of t wave inversion and QTc of 461 ms Hypothyroidism - continue levothyroxine - TSH normal HLD - continue statin DVT: lovenox subq Code: Full Disposition: remains on med/surg Resident Tracking Resident Involvement: Resident Care Provided Care Provided: Adult Hospital Medicine Reviewed: Pt Seen/Exam by Me History no change since admission. constant lip, tongue and facial movement. did have recent viral illness. no decrease in oral intake though. daughter at bedside. Constitutional: denies: fever EENTM: acknowledges: no symptoms reported Respiratory: positive: no symptoms reported Cardiovascular: denies chest pain, denies palpitations Gastrointestinal/Abdominal: negative: diarrhea, nausea General Appearance: WD/WN Respiratory: lungs clear, no respiratory distress Cardiovascular: regular rate, rhythm Gastrointestinal: soft Neurologic/Psychiatric: alert, other (oriented to place and person. constant lip smacking and tongue protruding movement. ) Skin Characteristics: warm/dry Assessment/Plan Resident Physician Supervision Note: I independently interviewed and examined the patient and verified the goodman history and physical, reviewed labs and image studies, discussed the case with the resident Dr. Trinh and agree with the findings and care plan.
--- NOTE | 2017-06-26 15:57 | Psychiatric Consultation ---
Psychiatric Consultation Date of Service: Jun 26, 2017. Identifying Data Taniya Waterman is a 57-year-old female who currently lives in [place] with her , has a history of bipolar disorder, and she was last admitted to our MHU in September 2016 for a manic episode. Chief Complaint lithium toxicity History of Present Illness When admitted to our unit in September, she hadn't slept for 5 days and was restless, confused and agitated. Shw was hyperverbal and making accusations that family members were trying to harm her. She stated they made fun of her tongue movements which at that time were very mild and confirms today that they predated seroquel. At one point the dose was increased to 500 mg daily and movements were clearly worse. Per last admit note: her and son visited and reported to staff that she had been stable on lithium for 25 years until 3 years ago when it was changed, they don't know why, and since then she' s been hospitalized 3 times. She wasn't hypersexual per se but had poor interpersonal boundaries--physical with staff, attempting to hug, kiss and caress staff. During that hospitalization, her oxcarbazepine was discontinued due to lack of benefit and she was restarted on lithium. Seroquel was cross tapered to Risperdal. Donepezil was continued but records did not seem to confirm a diagnosis of dementia. Since that time she has been seen in the ED for falls/confusion and was hospitalized at [facility] in 01/30. Her hospital med rec/list and prescriptions did not match and family provided an updated list but she is also is not taking those as prescribed, family admittedly restarting Seroquel due to sleep concerns. Per phone I provided instructions to ED re: holding Seroquel until family could communicate with outpatient provider, at that time her lithium level was still pending. Returned toxic level and was admitted to hospitalist service. confirms taking medications only as prescribed, denies any knowledge of taking extra or taking NSAIDs/OTC meds known to cause elevation of lithium levels. They report that she has been very stable from a mood standpoint. They depression/anxiety/alison/nichole/paranoia. Past Psychiatric History Current OP Treatment: psychiatrist (Dr. Chadwick) Prior OP Treatment: psychiatrist (Dr. Lin), therapist (at [facility], last years ago, did not feel it was helpful) Prior Psych Hospitalizations: [facility] (at age 16, according to the patient , "for no reason at all."), [facility] (2013 for mixed episode - transferred to another facility due to a relative being on the unit. She says she was also here many years ago.), [facility] (2015, 2016) Access to a Gun: No Suicide Attempts: No Past Medication Trials lithium - stable on it for 25 years, stopped 2013, restarted 09/2017 Risperdal Allergies Allergies: Coded Allergies: Penicillins (Verified Allergy, Unknown, UNKN, 06/27/15) Home Medications family states only taking 100 mg Seroquel BID Medications Dose Route/Sig Max Daily Dose Days Date Category Benztropine Mesylate 0.5 Mg Tab 0.5 Mg PO TID 06/25/17 Reported Donepezil HCl 5 Mg Tab 5 Mg PO QAM 06/25/17 Reported Seroquel (Quetiapine Fumarate) 50 Mg Tab 50 Mg PO BID 06/25/17 Reported Inderal (Propranolol HCl) 10 Mg Tab 10 Mg PO BID 01/21/17 Reported Seroquel (Quetiapine Fumarate) 200 Mg Tab 200 Mg PO BID 11/28/16 Reported [place] Carbonate ER ([place] Carbonate) 300 Mg Tab 900 Mg PO HS 30 10/18/16 Rx Vitamin E (Tocopheryl Acet,Dl-Alpha) 100 Interunit Cap 200 PO QAM 10/05/16 Reported Lipitor (Atorvastatin) 20 Mg Tab 20 Mg PO HS 10/05/16 Reported Synthroid (Levothyroxine Sodium) 100 Mcg Tab 100 Mcg PO QPM 10/05/16 Reported Family History Diabetes mellitus History of Suicide: No History of Substance Abuse: No Psychiatric History: Yes (sister with an unknown mental illness, possibly depression. Mother with a question of anxiety.) Alcohol Use Alcohol Use In Past 12 Months: No AUDIT Total Score: 0 Smoking Use Smoking Status: Never Smoker Substance History Denies ever abusing illicit or prescription medications. Personal History Lives in: [place] Childhood: Raised by both parents, who are still alive and live in [place], and she helps them out at home. Has 4 brothers and 3 sisters, all of whom live locally, and reports good relationships with them. Education: graduated from high school Work History: The patient states she has never worked, other than brief employment at [employer] in the 70s. She is supported by her , who works construction. Relationship History: (third marriage, has been almost 2 years. ) Children: 2 adult children, 1 son and 1 daughter Spiritual Affiliation: Hoahaoism Legal History: none Psychological Trauma History: Other (denies) Review of Systems denies N, V, D, tremor notes eye twitching, tongue thrust states able to swallow fine remainder of 10 systems is negative Examination Physical Examination no akathisia or rigidity, occasional myoclonic jerk at ankle, eye twitch, constant chewing movements of mouth with tongue thrust states movements worse at higher level of Seroquel, unchanged since held Seroquel Vital Signs Test 06/25/17 18:06 06/25/17 18:07 06/25/17 21:47 06/26/17 07:49 White Blood Count 6.45 Red Blood Count 4.62 Hemoglobin 13.9 Hematocrit 41.4 Mean Corpuscular Volume 89.6 Mean Corpuscular Hemoglobin 30.1 Mean Corpuscular Hemoglobin Concent 33.6 Platelet Count 182 Mean Platelet Volume 11.1 H Neutrophils (%) (Auto) 57.6 Lymphocytes (%) (Auto) 30.7 Monocytes (%) (Auto) 7.1 Eosinophils (%) (Auto) 4.2 Basophils (%) (Auto) 0.2 Neutrophils # (Auto) 3.72 Lymphocytes # (Auto) 1.98 Monocytes # (Auto) 0.46 Eosinophils # (Auto) 0.27 Basophils # (Auto) 0.01 RDW Standard Deviation 41.8 RDW Coefficient of Variation 12.7 Immature Granulocyte % (Auto) 0.2 Immature Granulocyte # (Auto) 0.01 Sodium Level 136 Potassium Level 3.7 Chloride Level 106 Carbon Dioxide Level 23 Anion Gap 7.0 Blood Urea Nitrogen 15 Creatinine 0.90 Est Creatinine Clear Calc Drug Dose 59.0 Estimated GFR () 81.1 Estimated GFR (Non- 70.0 BUN/Creatinine Ratio 17.1 Random Glucose 85 Calcium Level 9.0 Total Bilirubin 1.1 H Direct Bilirubin 0.3 H Aspartate Amino Transferase (AST) 14 L Alanine Aminotransferase (ALT) 18 Alkaline Phosphatase 102 Total Protein 7.3 Albumin 4.0 Thyroid Stimulating Hormone (TSH) 0.820 [place] Level 2.4 *H 2.0 *H 2.4 *H Ethyl Alcohol mg/dL < 3.0 POC Glucose 87 Prothrombin Time 10.5 Prothrombin Time INR 1.0 Mental Examination During interview pt is: alert and oriented, cooperative Appearance: appropriately groomed Eye contact is: fair Motor behavior is: dyskinesias as above Speech: is normal in rate and volume Affect: pleasant Mood is: "fine" Thought process: concrete but coherent Thought content: minimizing deficit Suicidal thought are: denied Homicidal thoughts are: denied Hallucinations: denies auditory, denies visual Cognition: language grossly intact, other (memory and attention are impaired) Intelligence estimated to be: average Insight: limited Judgement: limited Impression / Recommendations Impression 56-year-old white female with bipolar disorder type I with manic episodes this year, presents with dyskinesias on varying doses of Seroquel as well as significant lithium toxicity despite appropriate renal function. Recommendations (1) Bipolar 1 disorder lithium held due to toxicity, unclear etiology, family denies use of NSAIDs or GI symptoms that would contribute to toxicity, level increased this am--should be repeated later today Seroquel was held in ED, swallow reportedly improved, varying doses seem to have worsened her underlying dyskinesia so unclear how much is tardive vs withdrawal movements may look worse, particularly the eye tremors/twitching due to lithium toxicity rather than part of TD she and are adamant that they do not want to start any new medications ( offered trial of Neurontin as comfort measure) until lithium toxicity addressed no acute indication to start another mood stabilizer--consider ?Depakote vs restart lithium at lower dose, likely split dosing Case discussed with Dr. Garza who will be consulting on the patient on behalf of neurology. He agreed with my recommendation to hold benztropine since off Seroquel and no acute dystonia. We also reviewed that perhaps donepezil was added for what were actually symptoms of silent syndrome related to skilled nursing lithium use, previously she did not have gait abnormalities and hard to diagnosis in setting of acute toxicity. He confirmed that recs would be to monitor off of atypicals for a period of time before progressing to agent such as Ingrezza, which is generally cost prohibitive for patients.
--- NOTE | 2017-06-26 16:49 | Neurology Consultation ---
Neurology Consultation Date of Consultation: Jun 26, 2017. Attending Physician: Sherlyn Li M.D. Primary Care Physician: Abhinav Astorga M.D. Reason for Consultation: Patient is a 57-year-old, was asked to see the request of Dr. Li, for neurologic consultation regarding acute tardive dyskinetic type symptoms. History of Present Illness Source: patient, caregiver, hospital records The patient has had a longstanding history of psychiatric issues including severe bipolar disorder with manic episodes requiring occasional hospitalization , depression, and schizophrenia. Apparently, the patient has been on lithium since 1987 and had been fairly stable on this medication over the years. In September of 2016 patient had been off lithium for 2 months (uncertain reasons but possibly concerns about chronic lithium neurotoxicity) in had a severe manic episode. At that time, lithium was restarted and she was on Seroquel 300 milligrams daily. There is history that the patient has had cognitive problems for years and is currently on donepezil. I have not certain about the severity, type, or progression of this cognitive problem. Patient has had some eye blinking type symptoms for many months as well but this was described as mild. Over the last couple of weeks there is a concern that the movements have been getting worse including her head and tongue and Seroquel was tapered off, relatively abruptly, recently from 500 milligrams daily. This seemed to of dampen the movement some but she was having trouble sleeping and was restarted earlier this week at 100 milligrams twice daily. The patient has had severe movements of the head tongue and eyes over the last 2-3 days prior to admission. Benztropine was initiated sometime recently and has not helped. She arrived to the emergency room with severe mouth and head movements with eye blinking, at 1723 hours on June 25. Blood pressure was 118/79, pulse 59 and regular, respiratory rate 18, temperature 36.5, and O2 saturation 96 percent. CBC was unremarkable. Chem profile was largely unremarkable and she had good renal function. TSH was normal. Lawn level was toxic at 2.4. She was admitted and discontinued off lithium and Seroquel. Today she continues to have severe movements of her mouth and head. She herself denies pain or headaches, trouble eating or swallowing or breathing. She has been sleeping reasonably well. She has no pain or weakness in the arms or legs. She denies incontinence of urine but knows that her balance has been off for many months. She sometime she can fall. Past Medical/Surgical History Medical Problems: (1) Auditory hallucination Status: Acute (2) Bipolar disorder Status: Acute (3) Failure of outpatient treatment Status: Acute (4) Hallucinations Status: Acute (5) Insomnia Status: Acute (6) Lawn overdose Status: Acute (7) Barbara Status: Acute (8) Barbara Status: Acute (9) Medication side effect Status: Acute (10) Psychotic episode Status: Acute (11) Tardive dyskinesia Status: Acute (12) Visual hallucinations Status: Acute Acute tardive dyskinesias Acute lithium toxicity Schizophrenia, bipolar disorder and depression, chronic Gastroesophageal reflux disease Dyslipidemia Hypothyroidism Post left leg surgery in the past as her only surgery, she describes. Family History Mother is alive at 88 without any significant medical problems. Father is alive at age 90 any as heart issues. She has 2 children and 4 grandchildren Social History Patient has never smoked cigarettes or used tobacco products. She does not use alcohol or any illicit drugs. She has not been employed. Smoking Status: Never smoker Smokeless Tobacco Use: No Alcohol Use: none Drug Use: none Marital Status: , in relationship Housing Status: lives with significant other () Occupation Status: unemployed Allergies Coded Allergies: Penicillins (Verified Allergy, Unknown, RASH, 02/23/17) Current Inpatient Medications Current Inpatient Medications Medications (Trade) Dose Ordered Sig/Azeem Route Start Time Stop Time Status Last Admin Dose Admin Enoxaparin Sodium (Lovenox Inj) 40 mg Q24H SC 06/26/17 09:30 07/26/17 09:29 06/26/17 10:01 40 MG Acetaminophen (Tylenol Tab) 650 mg Q4H PRN PO 06/25/17 22:30 07/25/17 22:29 Al Hydrox/Mg Hydrox/Simethicone (Maalox Max Susp) 15 ml Q4H PRN PO 06/25/17 22:30 07/25/17 22:29 Magnesium Hydroxide (Milk Of Magnesia Susp) 30 ml Q12H PRN PO 06/25/17 22:30 07/25/17 22:29 Ondansetron HCl (Zofran Inj) 4 mg Q6H PRN IV 06/25/17 22:30 07/25/17 22:29 Polyethylene (Miralax Powder Packet) 17 gm DAILY PRN PO 06/25/17 22:30 07/25/17 22:29 Atorvastatin Calcium (Lipitor Tab) 20 mg HS PO 06/26/17 21:00 07/26/17 20:59 Levothyroxine Sodium (Synthroid Tab) 100 mcg QPM PO 06/26/17 21:00 07/26/17 20:59 Propranolol HCl (Inderal Tab) 10 mg BID PO 06/26/17 09:00 07/26/17 08:59 06/26/17 07:36 10 MG Trazodone HCl (Desyrel Tab) 100 mg QPM PO 06/26/17 21:00 07/26/17 20:59 Sodium Chloride 1,000 ml @ 150 mls/hr Q6H40M IV 06/25/17 23:59 07/25/17 23:58 06/26/17 13:30 150 MLS/HR Review of Systems Constitutional: + weakness, + fatigue, No fever Eyes: No worsening of vision, No diplopia ENT: No hearing loss, No trouble swallowing Respiratory: No cough, No shortness of breath Cardiovascular: No chest pain, No palpitations Abdomen: No pain, No nausea Musculoskeletal: No joint pain, No muscle pain Genitourinary - Female: No dysuria, No urinary incontinence Neurologic: + memory loss, + weakness, + balance problems, No numbness/tingling Psychiatric: + anxiety, No depression symptoms Endocrine: + fatigue Hematologic / Lymphatic: No abnormal bleeding/bruising Integumentary: No rash Allergic / Immunologic: No hives Physical Exam Vital Signs (Past 24 Hrs): Date Time Temp Pulse Resp B/P (MAP) Pulse Ox O2 Delivery O2 Flow Rate FiO2 06/26/17 15:26 37.5 55 16 100/64 (76) 95 Room Air 06/26/17 12:00 Room Air 06/26/17 11:15 37.2 53 20 98/62 (74) 95 Room Air 06/26/17 08:00 Room Air 06/26/17 07:50 36.8 56 18 99/57 (71) 97 06/26/17 07:30 64 06/26/17 05:15 37.0 53 20 108/64 (79) 97 Room Air 06/26/17 04:15 Room Air 06/26/17 00:12 Room Air 06/26/17 00:10 36.6 68 16 132/69 Room Air 06/25/17 22:23 57 130/75 97 Room Air 06/25/17 20:23 67 130/75 98 Room Air 06/25/17 17:23 36.5 59 18 118/79 96 Room Air Patient is right-handed. The patient is awake and alert. Speech is normal without specific aphasia or dysarthria, but the frequent, significant abnormal tongue movements interfere with speech. Mood seems normal and affect is appropriate. Appearance and grooming are normal. Patient has long and short-term memory are affected. She has deficits in both of these areas when questioned. The discs are sharp, although difficult to visualize, bilaterally. There are no exudates, hemorrhages, or blood vessel changes seen. Pupils are 3mm bilaterally and reactive to light. Extraocular eye muscles are intact without nystagmus. Visual acuity and visual egan seem normal grossly to confrontation. There are no deficits to sensation of the face bilaterally. Corneal reflexes are positive bilaterally. Facial strength and symmetry is normal bilaterally. Hearing seems intact grossly to voice and finger rub. Palate moves well without asymmetry. There is normal sternocleidomastoid and trapezius strength bilaterally. Tongue is midline with good strength bilaterally. However, the patient has frequent, severe tongue movements including protrusion and darting to the side. She has intermittent/variable eye blinking bilaterally and has frequent head turning to the left with occasional tilting to the left. She does have some lip protrusion/pursing on occasion. There are rare myoclonic jerks of the limbs noted particularly in the left arm. Neck is with full range of motion without discomfort. There are no cervical bruits. There are no cranial or ocular bruits. Heart is without murmur. Cervical, thoracic, and lumbar spine are nontender to palpation. Gait is slightly wide-based for support and with feet together eyes open she is somewhat unbalanced. With eyes closed she is worse. With outstretched arms there is no drift. There are no resting tremors. She has mild coarse postural and action tremor bilaterally. There is very mild ataxia with [id number] testing bilaterally. It is very difficult for her to do heel to corcoran testing as well. There is good facility in the hands. Motor strength is 5/5 diffusely in the arms bilaterally including deltoids, biceps, brachioradialis, wrist flexors and extensors, transfer car operator, and intrinsic hand muscles. Motor strength is 5/5 diffusely in the legs bilaterally including hip flexors, quadriceps, hamstring, gastrocnemius, tibialis anterior, tibialis posterior, and peroneii muscles bilaterally. Toe extensors are normal and there is good bulk in the extensor digitorum brevis muscle bilaterally. The limbs have good tone without rigidity or spasticity, and there is no atrophy noted. Muscle bulk is normal, there is no tenderness, no myotonia noted to percussion, and no fasciculations seen. Sensory examination is intact to pin and touch throughout all four limbs. Reflexes are 2/4 in the biceps, triceps, brachioradialis, and quadriceps tendons bilaterally. Achilles tendon reflexes are 0/4 bilaterally Toes are downgoing to plantar stimulation bilaterally although there is withdrawal bilaterally. Peripheral pulses are present and of normal quality distally in all four limbs. There is no peripheral edema noted. Laboratory Results Past 24 Hours: 06/25/17 18:06 Red Blood Count 4.62, Mean Corpuscular Volume 89.6, Mean Corpuscular Hemoglobin 30.1, Mean Corpuscular Hemoglobin Concent 33.6, Mean Platelet Volume 11.1, Neutrophils (%) (Auto) 57.6, Lymphocytes (%) (Auto) 30.7, Monocytes (%) (Auto) 7.1, Eosinophils (%) (Auto) 4.2, Basophils (%) (Auto) 0.2, Neutrophils # (Auto) 3.72, Lymphocytes # (Auto) 1.98, Monocytes # (Auto) 0.46, Eosinophils # (Auto) 0.27, Basophils # (Auto) 0.01 06/25/17 18:06 Test 06/25/17 18:06 06/25/17 18:07 06/26/17 07:49 06/26/17 15:57 White Blood Count 6.45 K/uL (4.8-10.8) Red Blood Count 4.62 M/uL (4.2-5.4) Hemoglobin 13.9 g/dL (12.0-16.0) Hematocrit 41.4 % (37-47) Mean Corpuscular Volume 89.6 fL (80-100) Mean Corpuscular Hemoglobin 30.1 pg (25-34) Mean Corpuscular Hemoglobin Concent 33.6 g/dl (32-36) Platelet Count 182 K/uL (130-400) Mean Platelet Volume 11.1 fL (7.4-10.4) Neutrophils (%) (Auto) 57.6 % Lymphocytes (%) (Auto) 30.7 % Monocytes (%) (Auto) 7.1 % Eosinophils (%) (Auto) 4.2 % Basophils (%) (Auto) 0.2 % Neutrophils # (Auto) 3.72 K/uL (1.4-6.5) Lymphocytes # (Auto) 1.98 K/uL (1.2-3.4) Monocytes # (Auto) 0.46 K/uL (0.11-0.59) Eosinophils # (Auto) 0.27 K/uL (0-0.5) Basophils # (Auto) 0.01 K/uL (0-0.2) RDW Standard Deviation 41.8 fL (36.4-46.3) RDW Coefficient of Variation 12.7 % (11.5-14.5) Immature Granulocyte % (Auto) 0.2 % Immature Granulocyte # (Auto) 0.01 K/uL (0.00-0.02) Anion Gap 7.0 mmol/L (3-11) Est Creatinine Clear Calc Drug Dose 59.0 ml/min Estimated GFR () 81.1 Estimated GFR (Non- 70.0 BUN/Creatinine Ratio 17.1 (10-20) Calcium Level 9.0 mg/dl (8.5-10.1) Total Bilirubin 1.1 mg/dl (0.2-1) Direct Bilirubin 0.3 mg/dl (0-0.2) Aspartate Amino Transf (AST/SGOT) 14 U/L (15-37) Alanine Aminotransferase (ALT/SGPT) 18 U/L (12-78) Alkaline Phosphatase 102 U/L (45-117) Total Protein 7.3 gm/dl (6.4-8.2) Albumin 4.0 gm/dl (3.4-5.0) Thyroid Stimulating Hormone (TSH) 0.820 uIu/ml (0.300-4.500) Ethyl Alcohol mg/dL < 3.0 mg/dl (0-3) Bedside Glucose 87 mg/dl (70-90) Prothrombin Time 10.5 SECONDS (9.0-12.0) Prothromb Time International Ratio 1.0 (0.9-1.1) Impression 1. Acute, severe dyskinetic movements of the tongue, head and lips with eye blinking and occasional myoclonic jerks. The dyskinetic movements are most consistent with tardive dyskinesia, likely secondary to high dose Seroquel usage. Unfortunately, stopping the offending agent (Seroquel) may not result in a reduction of the movements. In addition, you can have a temporary increase or withdrawal when the medicine is stopped. I am uncertain how much of her movements are due to acute versus chronic lithium toxicity. Acute lithium toxicity can give tremors, myoclonic jerks, restlessness/general neuromuscular excitability, and confusion. I do not see any tardive dystonia of a significant nature (except, possibly the neck turning). She does not display Parkinson's features otherwise 2. High lithium level of 2.4 This would certainly be in the toxic range of lithium and could be contributing to much of her symptomatology as noted above. 3. Chronic lithium use (since 1987) This would put her at great risk for the syndrome of irreversible lithium induced neurotoxicity, a chronic irreversible side effect of long-term lithium use on the central nervous system. This typically gives cognitive problems and dementia, ataxia and balance problems, and peripheral neuropathy. I believe she is displaying all 3 of these issues (cognitive problems, ataxia of limbs in gait, and perhaps a sensory ataxia from polyneuropathy) but I can't sort this out currently from anything that might be present from acute lithium toxicity. 4. History of severe bipolar disorder, schizophrenia, and depression. She is followed by Psychiatry, Dr. Chadwick as an outpatient and is seeing Psychiatry as an inpatient this visit. Plan 1. Agree with holding lithium and following daily lithium levels, until the level is in the normal range, and then restarting at a different dose, but I will defer this to Psychiatry. 2. Agree with holding Seroquel. If she needs a medication for bipolar disorder, Depakote could be considered. Clozaril could be considered for her other psychiatric issues, if needed. Again, I will defer this to Psychiatry. 3. Treating her acute dyskinetic movements can be very difficult in this setting. The treatment of choice is to stop the offending agent, which we have done. After this, we have to give it time (days to several weeks) to see if it cool is off on its own. If we had to give her something more acutely I would consider gabapentin 300 milligrams 3 times a day, or even amantadine 100 milligrams 3 times a day ( although these are not necessarily proven to be overly efficacious). Benzodiazepines , such as clonazepam, may help but this will make her sleepy and affect her cognitive function. 4. Unfortunately there is little else to do neurologically for this patient at this time and I do not see any need for additional neurologic testing or treatment. Call us if we can be of further assistance and we can follow her up as an outpatient. Overall, I spent a total of 110 minutes on this case, including records review, discussion with Dr. Rodriguez regarding the case, discussion with Dr. Sena regarding the case, and direct patient evaluation and discussion.
[2017-06-26] MEDS: TRAZODONE HCL 100 MG TAB PO SCH (20:23)
[2017-06-26] MEDS: ATORVASTATIN 20 MG TAB PO SCH (20:23)
[2017-06-26] MEDS ORDERED: LEVOTHYROXINE 100 MCG TAB PO SCH (21:00)
[2017-06-27] MEDS: SODIUM CHLORIDE 0.9% 1000ML 1,000 ML IV SCH ×3 (03:08→15:12)
[2017-06-27 04:00] VITALS: BP 122/73; PULSE 64; TEMP 37.1; O2SAT 95
[2017-06-27] MEDS: TRIMETHOPRIM/POLYMYXIN B OP SCH ×6 (05:27→20:02)
[2017-06-27] MEDS: LEVOTHYROXINE 100 MCG TAB PO SCH (05:27)
[2017-06-27 07:26] LABS: CALCIUM 8.8 mg/dl (8.5-10.1); CREATININE 0.61 mg/dl (0.60-1.20); POTASSIUM 3.4 mmol/L (3.5-5.1)
[2017-06-27 07:30] VITALS: BP 107/60; PULSE 66; TEMP 37.3; O2SAT 91
[2017-06-27] MEDS: PROPRANOLOL HCL 10 MG TAB PO SCH ×2 (07:43→20:03)
[2017-06-27] MEDS: ENOXAPARIN 40 MG/0.4 ML SYR SC SCH (09:10)
--- NOTE | 2017-06-27 09:41 | Psychiatric Progress Notes ---
Psychiatric Progress Note Date of Service Jun 27, 2017. Notes ID: Patient reviewed with liaison nurse. Interim progress reviewed. CC: "I'm about the same, didn't sleep as well" HPI: denied any change in mood overnight. She feels her eye movements are improved in that she can focus to read or watch tv. Less jerking of ankles. She denies issues with swallowing liquids or solid food. ROS: as above, no GI side effects noted, less tremulous Vital Signs Past 12 Hours Date Time Temp Pulse Resp B/P (MAP) Pulse Ox O2 Delivery O2 Flow Rate FiO2 06/27/17 08:00 Room Air 06/27/17 07:30 37.3 66 18 107/60 (76) 91 Room Air 06/27/17 04:00 37.1 64 20 122/73 (89) 95 Room Air 06/27/17 04:00 Room Air 06/27/17 00:00 Room Air 06/26/17 23:41 36.8 64 20 111/65 (80) 94 Room Air MSE: alert, cooperative, speech coherent, mood "good", affect calm, thoughts concrete. She denies SI/HI/nichole and did not appear to be responding to internal stimuli. Last 24 Hours Test 06/26/17 16:21 06/27/17 06:20 [place] Level 1.3 mMOL/L 0.8 mMOL/L Sodium Level 143 mmol/L Potassium Level 3.4 mmol/L Chloride Level 113 mmol/L Carbon Dioxide Level 21 mmol/L Anion Gap 9.0 mmol/L Blood Urea Nitrogen 3 mg/dl Creatinine 0.61 mg/dl Est Creatinine Clear Calc Drug Dose 87.9 ml/min Estimated GFR () 115.0 Estimated GFR (Non- 99.2 BUN/Creatinine Ratio 5.1 Random Glucose 96 mg/dl Calcium Level 8.8 mg/dl Imp: Bipolar disorder, lithium toxicity resolving Plan: Reviewed with patient my concerns about difficulty differentiating acute lithium toxicity from chronic lithium neurotoxicity (Silent syndrome)--the latter can be associated with cerebellar dysfunction, nystagmus and choreoathetoid movements. She was agreeable to trial of lower dose Neurontin trial as recommended by neurology. Would suggest Neurontin 100 mg po TID and monitor for sedation, outpatient provider could titrate hs dose to assist sleep and ultimately d/c trazodone She prefers to restart lithium acutely at lower dose (300 mg hs) rather than considering another agent for her bipolar such as Depakote, Lamictal or another antipsychotic. She should have a repeat lithium level in 5 days. Liaison nurse is confirming her follow up with Dr. Chadwick. Patient does not meet any inpatient mental health criteria for admission at this time (she is not suicidal, manic, or hallucinating), I recognize that her med regimen is challenging to manage outpatient given acuity. may benefit from more complete (?24 hr urine collection) at some point to get more accurate GFR.
[2017-06-27] MEDS: GABAPENTIN 100 MG CAP PO SCH ×3 (10:26→20:04)
[2017-06-27 11:47] VITALS: BP 121/71; PULSE 55; TEMP 36.9; O2SAT 97
[2017-06-27] MEDS ORDERED: POTASSIUM CHLORIDE PWD 20 MEQ PACK PO ONE (15:45)
[2017-06-27 15:52] VITALS: BP 119/77; PULSE 59; TEMP 36.9; O2SAT 96
--- NOTE | 2017-06-27 18:42 | Family Medicine Progress Note ---
Progress Note Date of Service Jun 27, 2017. Subjective Pt evaluation today including: conversation w/ patient, physical exam, chart review, lab review Pain: Patient denies pain PO Intake: Having difficulties swallowing 2/2 TD Voiding: no voiding problems Patient feels much improved today compared to yesterday. She states that her symptoms are becoming less severe Constitutional: No fever, No chills, No sweats, No weight loss, No weakness , No fatigue, No problem reported Neurologic: + problem reported (lip smacking and tongue portrusion) All Other Systems: Reviewed and Negative Medications Current Inpatient Medications Medications (Trade) Dose Ordered Sig/Azeem Route Start Time Stop Time Status Last Admin Dose Admin Enoxaparin Sodium (Lovenox Inj) 40 mg Q24H SC 06/26/17 09:30 07/26/17 09:29 06/27/17 09:10 40 MG Acetaminophen (Tylenol Tab) 650 mg Q4H PRN PO 06/25/17 22:30 07/25/17 22:29 Al Hydrox/Mg Hydrox/Simethicone (Maalox Max Susp) 15 ml Q4H PRN PO 06/25/17 22:30 07/25/17 22:29 Magnesium Hydroxide (Milk Of Magnesia Susp) 30 ml Q12H PRN PO 06/25/17 22:30 07/25/17 22:29 Ondansetron HCl (Zofran Inj) 4 mg Q6H PRN IV 06/25/17 22:30 07/25/17 22:29 Polyethylene (Miralax Powder Packet) 17 gm DAILY PRN PO 06/25/17 22:30 07/25/17 22:29 Atorvastatin Calcium (Lipitor Tab) 20 mg HS PO 06/26/17 21:00 07/26/17 20:59 06/27/17 20:04 20 MG Propranolol HCl (Inderal Tab) 10 mg BID PO 06/26/17 09:00 07/26/17 08:59 06/27/17 20:03 10 MG Trazodone HCl (Desyrel Tab) 100 mg QPM PO 06/26/17 21:00 07/26/17 20:59 06/27/17 20:03 100 MG Levothyroxine Sodium (Synthroid Tab) 100 mcg DAILYBB PO 06/27/17 06:30 3/14/18 06:29 06/27/17 05:27 100 MCG Polymyxin/ Trimethoprim Sulfate (Polytrim Oph Soln) 1 drops Q3HWA OP 06/27/17 06:00 07/27/17 05:59 06/27/17 20:02 1 DROPS [place] Carbonate (Lithobid Tab) 300 mg HS PO 06/27/17 21:00 07/27/17 20:59 06/27/17 20:04 300 MG Gabapentin (Neurontin Cap) 100 mg TID PO 06/27/17 10:15 07/27/17 10:14 06/27/17 20:04 100 MG Objective Vital Signs Date Time Temp Pulse Resp B/P (MAP) Pulse Ox O2 Delivery O2 Flow Rate FiO2 06/27/17 20:32 37.1 57 18 103/66 (78) 97 Room Air 06/27/17 19:38 Room Air 06/27/17 15:52 36.9 59 20 119/77 (91) 96 Room Air 06/27/17 15:15 Room Air 06/27/17 12:00 Room Air 06/27/17 11:47 36.9 55 18 121/71 (88) 97 Room Air 06/27/17 08:00 Room Air 06/27/17 07:30 37.3 66 18 107/60 (76) 91 Room Air 06/27/17 04:00 37.1 64 20 122/73 (89) 95 Room Air 06/27/17 04:00 Room Air 06/27/17 00:00 Room Air 06/26/17 23:41 36.8 64 20 111/65 (80) 94 Room Air Physical Exam General Appearance: WD/WN, no apparent distress Eyes: normal inspection, PERRL, EOMI, sclerae normal ENT: + pertinent finding (Dry mucous membranes, tongue portrusion and lip smacking) Neck: supple, trachea midline Respiratory/Chest: chest non-tender, lungs clear, normal breath sounds, no respiratory distress, no accessory muscle use Cardiovascular: regular rate, rhythm, no edema, no gallop, no JVD, no murmur Abdomen: normal bowel sounds, non tender, soft, no organomegaly Extremities: normal range of motion, non-tender, normal inspection, no pedal edema, no calf tenderness Neurologic/Psychiatric: hook puller II-XII nml as tested, no motor/sensory deficits, alert, normal mood/affect, oriented x 3 Skin: normal color, warm/dry, no rash Laboratory Results Last Resulted 06/25/17 18:06 Red Blood Count 4.62, Mean Corpuscular Volume 89.6, Mean Corpuscular Hemoglobin 30.1, Mean Corpuscular Hemoglobin Concent 33.6, Mean Platelet Volume 11.1, Neutrophils (%) (Auto) 57.6, Lymphocytes (%) (Auto) 30.7, Monocytes (%) (Auto) 7.1, Eosinophils (%) (Auto) 4.2, Basophils (%) (Auto) 0.2, Neutrophils # (Auto) 3.72, Lymphocytes # (Auto) 1.98, Monocytes # (Auto) 0.46, Eosinophils # (Auto) 0.27, Basophils # (Auto) 0.01 Last Resulted 06/27/17 06:20 Assessment and Plan Ms. Waterman is a 57 year old female with an extensive mental health history here with worsening suspected tardive dyskinesia as well as an elevated serum lithium level Tardive dyskinesia - hx of Bipolar 1 disorder - hold seroquel, - started on trazodone 100mg qhs for sleep in the interim - continue propanolol - Thank you to psych and neuro for consult - hold seroquel - but movements may be appearing worse due to lithium toxicity - hold benztropine since no dystonia - possibly use agent such as ingrezza in the future, however likelly cost prohibitive - Would suggest Neurontin 100 mg po TID and monitor for sedation, outpatient provider could titrate hs dose to assist sleep and ultimately d/c trazodone - She prefers to restart lithium acutely at lower dose (300 mg hs) rather than considering another agent such as Depakote, Lamictal or another antipsychotic. - She should have a repeat lithium level in 5 days. - Liaison nurse is confirming her follow up with Dr. Chadwick. - may benefit from more complete (?24 hr urine collection) at some point to get more accurate GFR. [place] Toxicity - hold lithium - lithium 0.8 today, WNL - recheck tomorrow AM - unsure of the cause of toxicity -> no recent NSAID use, no vomiting, no diarrhea, no recent changes to dosage or addition of new medications and she has never had a high lithium level before. - did have ? viral uri within a week period. - continue 150mls/hr of normal saline. - EKG in ED showed T wave inversion and QTc of 436ms - repeat EKG showed resolution of t wave inversion and QTc of 461 ms Hypothyroidism - continue levothyroxine - TSH normal HLD - continue statin DVT: lovenox subq Code: Full Disposition: remains on med/surg Resident Tracking Resident Involvement: Resident Care Provided Care Provided: Adult Hospital Medicine
[2017-06-27] MEDS: TRAZODONE HCL 100 MG TAB PO SCH (20:03)
[2017-06-27] MEDS: ATORVASTATIN 20 MG TAB PO SCH (20:04)
[2017-06-27] MEDS: LITHIUM CARBONATE SR 300 MG TAB (LITHOBID) PO SCH (20:04)
[2017-06-27 20:32] VITALS: BP 103/66; PULSE 57; TEMP 37.1; O2SAT 97
[2017-06-27 23:48] VITALS: BP 94/59; PULSE 53; TEMP 37.4; O2SAT 98
[2017-06-28] VITALS (8 sets, daily range): BP systolic 105–119; BP diastolic 66–79; PULSE 48–95; TEMP 36.5–36.7; O2SAT 96–98
[2017-06-28] MEDS: TRIMETHOPRIM/POLYMYXIN B OP SCH ×6 (06:05→20:59)
[2017-06-28] MEDS: LEVOTHYROXINE 100 MCG TAB PO SCH (06:06)
[2017-06-28 06:55] LABS: CALCIUM 8.4 mg/dl (8.5-10.1); CREATININE 0.75 mg/dl (0.60-1.20); POTASSIUM 3.7 mmol/L (3.5-5.1)
[2017-06-28] MEDS: PROPRANOLOL HCL 10 MG TAB PO SCH ×2 (09:26→20:59)
[2017-06-28] MEDS: GABAPENTIN 100 MG CAP PO SCH ×3 (09:27→21:00)
[2017-06-28] MEDS: ENOXAPARIN 40 MG/0.4 ML SYR SC SCH (09:28)
--- NOTE | 2017-06-28 11:52 | Psychiatric Progress Notes ---
Psychiatric Progress Note Date of Service Jun 28, 2017. Notes ID: Patient seen today for follow-up, records reviewed and reviewed with liaison nurse. CC: "Good now." HPI: The patient was seen along with her son Sachin, who is visiting from [place] and is at the bedside. She states that her mood is "good," and she feels she is improving, and is looking forward to going home. Her son has been with her throughout the day yesterday and today, and notes she has had some visual hallucinations, thinking that a heating vent on the roof outside of her window is a cat. She does wear glasses at home, which she did not bring into the hospital. He is questioning if there are any day programs available in the area, as her works during the day so she is often home alone. He is not sure if she has a case aide, and the patient is likewise unsure. When she was on our unit in September 2016, a case management referral was recommended, but does not appear that she was scheduled with anyone at the time of discharge. She is willing to be referred for this service, and we discussed the options for day programming, including psych rehabilitation, Clubhouse, and mobile psych rehabilitation. ROS: Denies GI symptoms, reports decreased tremor, ongoing involuntary facial movements. MSE: White female who appears her stated age, seated on the edge of her bed in no acute distress. Alert, cooperative, speech coherent. Mood is "good", affect is stable and euthymic, denies SI, HI, and paranoia. Thoughts concrete. Endorses visual hallucinations/illusions of the cat on the roof, but denies other modalities of hallucinations. Insight and judgment are fair. Assessment and plan: 1. Bipolar disorder type I: Flippin initially held due to toxicity of unclear etiology, and was resumed last night at a lower dose of 300 mg daily at bedtime. She will be due for a level in 5 days. The liaison nurse will confirm her follow-up appointment with Dr. Chadwick and send records for coordination of care. Neurology was concerned for lithium induced neurotoxicity , and recommended using a lower dose and following lithium levels. I will order a trough level for tomorrow. - The patient and her son express interest in day programming, and she should be eligible for psych rehab, mobile psych rehab, and /or clubhouse. She does not think that she has a case aide, will ask the psychiatric liaison nurse to facilitate a referral for CM and Mobile psych rehab (transportation is an issue as she doesn't drive and relies on family to transport her to appointments ). 2. Visual hallucinations: Etiology unclear, as she does not appear to be in a manic or depressive episode at this time, and has not been diagnosed with a primary psychotic disorder to my knowledge. She is off antipsychotics currently due to her worsening tardive dyskinesia, and both she and her have been unwilling to consider a trial of a different antipsychotic or Depakote , which were discussed. Discussed watchful waiting with her and her son, to monitor her abnormal movements and her hallucinations, and to follow-up with her outpatient psychiatrist for further discussion about medication options. 3. Tardive dyskinesia: Neurology is following and hopefully she will be following up with them as an outpatient. Trials of gabapentin and amantadine were discussed.
--- NOTE | 2017-06-28 17:38 | Family Medicine Progress Note ---
Progress Note Date of Service Jun 28, 2017. Subjective Pt evaluation today including: conversation w/ patient, conversation w/ family , physical exam, chart review, lab review Pain: no pain reported PO Intake: Reports she is finding it difficult and can only keep small amount down Voiding: no voiding problems Patient continues to feel better daily. States she is not keeping down more food but insists she would like full regular diet Constitutional: No fever, No chills, No sweats, No weight loss, No weakness , No fatigue, No problem reported Respiratory: No cough, No sputum, No wheezing, No shortness of breath, No dyspnea on exertion, No dyspnea at rest, No hemoptysis, No problem reported Cardiovascular: No chest pain, No orthopnea, No PND, No edema, No claudication, No palpitations, No problem reported Abdomen: No pain, No nausea, No vomiting, No diarrhea, No constipation, No GI bleeding, No problem reported Neurologic: + see HPI Psychiatric: + problem reported (son reports pt has been hallucinating) All Other Systems: Reviewed and Negative Medications Current Inpatient Medications Medications (Trade) Dose Ordered Sig/Azeem Route Start Time Stop Time Status Last Admin Dose Admin Enoxaparin Sodium (Lovenox Inj) 40 mg Q24H SC 06/26/17 09:30 07/26/17 09:29 06/28/17 09:28 40 MG Acetaminophen (Tylenol Tab) 650 mg Q4H PRN PO 06/25/17 22:30 07/25/17 22:29 Al Hydrox/Mg Hydrox/Simethicone (Maalox Max Susp) 15 ml Q4H PRN PO 06/25/17 22:30 07/25/17 22:29 Magnesium Hydroxide (Milk Of Magnesia Susp) 30 ml Q12H PRN PO 06/25/17 22:30 07/25/17 22:29 Ondansetron HCl (Zofran Inj) 4 mg Q6H PRN IV 06/25/17 22:30 07/25/17 22:29 Polyethylene (Miralax Powder Packet) 17 gm DAILY PRN PO 06/25/17 22:30 07/25/17 22:29 Atorvastatin Calcium (Lipitor Tab) 20 mg HS PO 06/26/17 21:00 07/26/17 20:59 06/27/17 20:04 20 MG Propranolol HCl (Inderal Tab) 10 mg BID PO 06/26/17 09:00 07/26/17 08:59 06/28/17 09:26 10 MG Trazodone HCl (Desyrel Tab) 100 mg QPM PO 06/26/17 21:00 07/26/17 20:59 06/27/17 20:03 100 MG Levothyroxine Sodium (Synthroid Tab) 100 mcg DAILYBB PO 06/27/17 06:30 07/27/17 06:29 06/28/17 06:06 100 MCG Polymyxin/ Trimethoprim Sulfate (Polytrim Oph Soln) 1 drops Q3HWA OP 06/27/17 06:00 07/27/17 05:59 06/28/17 15:19 1 DROPS [place] Carbonate (Lithobid Tab) 300 mg HS PO 06/27/17 21:00 07/27/17 20:59 06/27/17 20:04 300 MG Gabapentin (Neurontin Cap) 100 mg TID PO 06/27/17 10:15 07/27/17 10:14 06/28/17 14:12 100 MG Objective Vital Signs Date Time Temp Pulse Resp B/P (MAP) Pulse Ox O2 Delivery O2 Flow Rate FiO2 06/28/17 12:00 Room Air 06/28/17 11:42 36.5 95 16 113/78 (90) Room Air 06/28/17 08:12 98 Room Air 06/28/17 08:06 36.6 64 16 119/79 (92) 98 Room Air 06/28/17 08:00 Room Air 06/28/17 04:01 Room Air 06/28/17 04:01 36.6 48 16 105/66 (79) 97 Room Air 06/28/17 00:01 Room Air 06/27/17 23:48 37.4 53 16 94/59 (71) 98 Room Air 06/27/17 20:32 37.1 57 18 103/66 (78) 97 Room Air 06/27/17 19:38 Room Air Physical Exam General Appearance: WD/WN, no apparent distress Eyes: normal inspection, PERRL, EOMI, + pertinent finding (Some eye twitching ) ENT: hearing grossly normal, pharynx normal Neck: supple, no JVD, no carotid bruits, trachea midline Respiratory/Chest: chest non-tender, lungs clear, normal breath sounds, no respiratory distress, no accessory muscle use Cardiovascular: regular rate, rhythm, no edema, no gallop, no JVD, no murmur Abdomen: normal bowel sounds, non tender, soft, no organomegaly, no pulsatile mass Extremities: normal range of motion, non-tender, normal inspection, no pedal edema, no calf tenderness Neurologic/Psychiatric: alert, normal mood/affect, oriented x 3, + pertinent finding (tongue portrusion, lip smacking, writhing/jerking movements of upper limbs, improving daily) Skin: normal color, warm/dry, no rash Laboratory Results Last Resulted 06/25/17 18:06 Red Blood Count 4.62, Mean Corpuscular Volume 89.6, Mean Corpuscular Hemoglobin 30.1, Mean Corpuscular Hemoglobin Concent 33.6, Mean Platelet Volume 11.1, Neutrophils (%) (Auto) 57.6, Lymphocytes (%) (Auto) 30.7, Monocytes (%) (Auto) 7.1, Eosinophils (%) (Auto) 4.2, Basophils (%) (Auto) 0.2, Neutrophils # (Auto) 3.72, Lymphocytes # (Auto) 1.98, Monocytes # (Auto) 0.46, Eosinophils # (Auto) 0.27, Basophils # (Auto) 0.01 Last Resulted 06/28/17 06:00 Assessment and Plan Ms. Waterman is a 57 year old female with an extensive mental health history admitted for worsening suspected tardive dyskinesia as well as an elevated serum lithium level Tardive dyskinesia - hx of Bipolar 1 disorder - holding seroquel - started on trazodone 100mg qhs for sleep in the interim, goal to decrease with addition of neurontin - continue propanolol - Thank you to psych and neuro for consult - hold seroquel - movements may be appearing worse due to lithium toxicity - hold benztropine since no dystonia - possibly use agent such as ingrezza in the future, however likelly cost prohibitive - Neurontin 100 mg po TID and monitor for sedation, outpatient provider could titrate hs dose to assist sleep and ultimately d/c trazodone - Restart lithium acutely at lower dose (300 mg hs) rather than considering another agent such as Depakote, Lamictal or another antipsychotic. - She should have a repeat lithium level in 5 days. - Liaison nurse is confirming her follow up with Dr. Chadwick as well as more community opportunities, as patient is at home alone most of the day. - Son reports patient is reporting hallucinations since no antipscyh meds on board; close follow up as outpatient is required. - Discussed case with [facility] who will coordinate psych liaison nurse continue working with patient and family to set up outpatient services, etc. - Otherwise no objections to discharge home tomorrow [place] Toxicity - Restarting lithium at lower dose last night - lithium 0.8 today, WNL - unsure of the cause of toxicity -> no recent NSAID use, no vomiting, no diarrhea, no recent changes to dosage or addition of new medications and she has never had a high lithium level before. - did have ? viral uri within a week period. - DC IVF - EKG in ED showed T wave inversion and QTc of 436ms - repeat EKG showed resolution of t wave inversion and QTc of 461 ms Hypothyroidism - continue levothyroxine - TSH normal HLD - continue statin DVT: lovenox subq Code: Full Disposition: remains on med/surg, likely home tomorrow Resident Tracking Resident Involvement: Resident Care Provided Care Provided: Adult Hospital Medicine
[2017-06-28] MEDS: LITHIUM CARBONATE SR 300 MG TAB (LITHOBID) PO SCH (21:00)
[2017-06-28] MEDS: TRAZODONE HCL 100 MG TAB PO SCH (21:00)
[2017-06-28] MEDS: ATORVASTATIN 20 MG TAB PO SCH (21:00)
--- NOTE | 2017-06-28 23:20 | Discharge Instructions ---
Discharge Instructions Date of Service Jun 28, 2017. Admission Reason for Admission: Tardive, Dyskimesia Discharge Discharge Diagnosis / Problem: Tardive Dyskinesia Discharge Goals Goal(s): Improve function, Increase independence, Improve disease control, Learn about illness, Therapeutic intervention, Prevent Disease Progression Activity Recommendations Activity Limitations: per Instructions/Follow-up section . Instructions / Follow-Up Instructions / Follow-Up During this admission you were evaluated for worsening tardive dyskinesia and an elevated lithium level. The cause of the elevated lithium level is unknown at this time. The seroquel you had been taking may have been contributing to or may have been masking the full symptoms of your elevated lithium level. Psychiatry and neurology were consulted, who recommend the following: - Stop taking seroquel - Gradually replace trazodone at night with neurontin. This will be followed as an outpatient with Dr. Chadwick - Hold benztropine until further notice - Restart lithium at lower dose and have a repeat lab draw of lithium level tomorrow and have one drawn in 5 days. - continue propanolol - The Psych liaison nurse will be in touch regarding your outpatient appointment with Dr. Chadwick as well as community opportunities - Dr. Chadwick's office is located at [address] in [place]. Continue your home meds for your thyroid and cholesterol conditions Current Hospital Diet Patient's current hospital diet: Regular Diet Discharge Diet Recommended Diet: Regular Diet Pending Studies Studies pending at discharge: no Medical Emergencies . Who to Call and When: Medical Emergencies: If at any time you feel your situation is an emergency, please call 911 immediately. . Non-Emergent Contact Non-Emergency issues call your: Primary Care Provider . . "Provider Documentation" section prepared by Virgie Farr. . VTE Core Measure Inpt VTE Proph given/why not?: Enoxaparin (Lovenox)SQ
[2017-06-29 00:23] VITALS: BP 102/62; PULSE 53; TEMP 36.9; O2SAT 96
[2017-06-29] MEDS: LEVOTHYROXINE 100 MCG TAB PO SCH (05:53)
[2017-06-29] MEDS: TRIMETHOPRIM/POLYMYXIN B OP SCH ×3 (05:53→13:20)
[2017-06-29 06:04] VITALS: BP 117/73; PULSE 55; TEMP 37.1; O2SAT 97
[2017-06-29 07:34] LABS: CALCIUM 8.4 mg/dl (8.5-10.1); CREATININE 0.79 mg/dl (0.60-1.20); POTASSIUM 3.4 mmol/L (3.5-5.1)
[2017-06-29 07:41] VITALS: BP 111/66; PULSE 53; TEMP 37; O2SAT 98
[2017-06-29] MEDS: GABAPENTIN 100 MG CAP PO SCH ×2 (08:57→13:20)
[2017-06-29] MEDS: PROPRANOLOL HCL 10 MG TAB PO SCH (08:57)
[2017-06-29] MEDS: ENOXAPARIN 40 MG/0.4 ML SYR SC SCH (08:58)
[2017-06-29] MEDS ORDERED: LTHCR300 PO (11:41)
[2017-06-29] MEDS ORDERED: DSY100 PO (11:41)
[2017-06-29] MEDS ORDERED: NRN100 PO (11:41)
[2017-06-29 11:51] VITALS: BP 100/60; PULSE 71; TEMP 36.6; O2SAT 93
[2017-06-29 11:59] VITALS: BP 100/60; PULSE 71; TEMP 36.6; O2SAT 93
--- NOTE | 2017-06-29 23:48 | Discharge Summary ---
Discharge Summary Date of Service Jun 29, 2017. Discharge Summary Admission Date: Jun 25, 2017 at 22:35 Discharge Date: Jun 29, 2017 Discharge Disposition: Home Principal Diagnosis: Tardive dyskinesia Problems/Secondary Diagnoses: [place] Toxicity Hypothyroidism HLD Immunizations: Have You Had Influenza Vaccine: Unknown History of Tetanus Vaccine?: Unknown History of Pneumococcal: Unknown History of Hepatitis B Vaccine: Unknown Consultations: Neurology, psychiatry Medication Reconciliation New Medications: Gabapentin (Gabapentin) 100 Mg Cap 100 MG PO TID for 30 Days, #90 CAP [place] Carbonate ([place] Carbonate ER) 300 Mg Tab 300 MG PO HS for 30 Days, #30 TAB Trazodone HCl (Trazodone HCl) 100 Mg Tab 100 MG PO QPM for 15 Days, #15 TAB Continued Medications: Atorvastatin (Lipitor) 20 Mg Tab 20 MG PO HS, TAB Levothyroxine Sodium (Synthroid) 100 Mcg Tab 100 MCG PO QPM, TAB Propranolol (Inderal) 10 Mg Tab 10 MG PO BID, #60 Tocopheryl Acet,Dl-Alpha (Vitamin E) 100 Interunit Cap 200 PO QAM Discontinued Medications: Benztropine Mesylate (Benztropine Mesylate) 0.5 Mg Tab 0.5 MG PO TID Donepezil HCl (Donepezil HCl) 5 Mg Tab 5 MG PO QAM [place] Carbonate ([place]une Carbonate ER) 300 Mg Tab 900 MG PO HS for 30 Days, #90 TAB Quetiapine Fumarate (Seroquel) 200 Mg Tab 200 MG PO BID, #30 Quetiapine Fumarate (Seroquel) 50 Mg Tab 50 MG PO BID Discharge Exam ROS Constitutional: No fever, No chills, No sweats, No weight loss, No weakness , No fatigue, No problem reported Respiratory: No cough, No sputum, No wheezing, No shortness of breath, No dyspnea on exertion, No dyspnea at rest, No hemoptysis, No problem reported Cardiovascular: No chest pain, No orthopnea, No PND, No edema, No claudication, No palpitations, No problem reported Abdomen: No pain, No nausea, No vomiting, No diarrhea, No constipation, No GI bleeding, No problem reported Neurologic: + see HPI Psychiatric: + problem reported (son reports pt has been hallucinating) All Other Systems: Reviewed and Negative PE General Appearance: WD/WN, no apparent distress Eyes: normal inspection, PERRL, EOMI, + pertinent finding (Some eye twitching ) ENT: hearing grossly normal, pharynx normal Neck: supple, no JVD, no carotid bruits, trachea midline Respiratory/Chest: chest non-tender, lungs clear, normal breath sounds, no respiratory distress, no accessory muscle use Cardiovascular: regular rate, rhythm, no edema, no gallop, no JVD, no murmur Abdomen: normal bowel sounds, non tender, soft, no organomegaly, no pulsatile mass Extremities: normal range of motion, non-tender, normal inspection, no pedal edema, no calf tenderness Neurologic/Psychiatric: alert, normal mood/affect, oriented x 3, + pertinent finding (tongue portrusion, lip smacking, writhing/jerking movements of upper limbs, improving daily) Skin: normal color, warm/dry, no rash Hospital Course Ms. Waterman is a 57 year old female with an extensive mental health history admitted for worsening suspected tardive dyskinesia as well as an elevated serum lithium level Tardive dyskinesia - hx of Bipolar 1 disorder - started on trazodone 100mg qhs for sleep in the interim, goal to decrease with addition of neurontin - Psych and neuro consult - hold seroquel - movements may be appearing worse due to lithium toxicity - hold benztropine since no dystonia - possibly use agent such as ingrezza in the future, however likelly cost prohibitive - Neurontin 100 mg po TID and monitor for sedation, outpatient provider could titrate hs dose to assist sleep and ultimately d/c trazodone - Restart lithium acutely at lower dose (300 mg hs) rather than considering another agent such as Depakote, Lamictal or another antipsychotic. - She should have a repeat lithium level in 1 day for trough and in 5 days. - Liaison nurse is confirming her follow up with Dr. Chadwick as well as more community opportunities, as patient is at home alone most of the day. - Son reports patient is reporting hallucinations since no antipscyh meds on board; close follow up as outpatient is required. - Discussed case with [facility] who will coordinate psych liaison nurse continue working with patient and family to set up outpatient services, etc. [place] Toxicity - Restarting lithium at lower dose - lithium 0.8 prior to discharge, WNL - unsure of the cause of toxicity -> no recent NSAID use, no vomiting, no diarrhea, no recent changes to dosage or addition of new medications and she has never had a high lithium level before. - did have ? viral uri within a week period. - EKG in ED showed T wave inversion and QTc of 436ms - repeat EKG showed resolution of t wave inversion and QTc of 461 ms Hypothyroidism - continue levothyroxine - TSH normal HLD - continue statin Total Time Spent: Less than 30 minutes This includes examination of the patient, discharge planning, medication reconciliation, and communication with other providers. Discharge Instructions Please refer to the electronic Patient Visit Report (Discharge Instructions) for additional information. Additional Copies To Abhinav Astorga M.D. Resident Tracking Resident Involvement: Resident Care Provided Care Provided: Adult Hospital Medicine
== END 2017-06-29 15:00 | disposition home health service (06) | DRG 93 ==
LOC: C.EDB 17:21 → C.MED 22:35 → ENRESERV 22:53
PROVIDERS: ADMIT Hospitalist; ATTEND Hospitalist
DX: G24.01 Drug induced subacute dyskinesia (principal); T43.595A Adverse effect of other antipsychotics and neuroleptics, initial encounter; T43.8X1A Poisoning by other psychotropic drugs, accidental (unintentional), initial encounter; F31.9 Bipolar disorder, unspecified; F20.9 Schizophrenia, unspecified; G30.9 Alzheimer's disease, unspecified; R44.1 Visual hallucinations; E03.9 Hypothyroidism, unspecified; E78.5 Hyperlipidemia, unspecified; Z79.899 Other long term (current) drug therapy; Z88.0 Allergy status to penicillin; Z81.8 Family history of other mental and behavioral disorders; Z83.3 Family history of diabetes mellitus; Z82.49 Family history of ischemic heart disease and other diseases of the circulatory system

== ENCOUNTER → 2017-06-30 | Outpatient (CLI) | payer OTHER ==
[~2017-06-30] MED LIST changes: -ATV/1 PO; -BENZ-88 PO; +DSY100 PO; +NRN100 PO; -QUET1TAB10 PO; -RISP0.5T4 PO
[2017-06-30 17:45] LABS: HEMATOCRIT 40.6 % (37-47); HEMOGLOBIN 13.3 g/dL (12.0-16.0); MEAN CELL VOLUME 93.1 fL (80-100); MEAN CORPUSCULAR HEMOGLOBIN 30.5 pg (25-34); MEAN CORPUSCULAR HGB CONC 32.8 g/dl (32-36); MEAN PLATELET VOLUME 11.3 fL (7.4-10.4); PLATELET COUNT 249 K/uL (130-400); RED CELL DISTRIBUTION WIDTH CV 13.3 % (11.5-14.5); WHITE BLOOD COUNT 8.38 K/uL (4.8-10.8)
[2017-06-30 18:09] LABS: ALBUMIN 3.4 gm/dl (3.4-5.0); ALKALINE PHOSPHATASE 99 U/L (45-117); ALT/SGPT 19 U/L (12-78); AST/SGOT 16 U/L (15-37); BLOOD UREA NITROGEN 4 mg/dl (7-18); CALCIUM 8.9 mg/dl (8.5-10.1); CARBON DIOXIDE 28 mmol/L (21-32); CHOLESTEROL 80 mg/dl (0-200); CREATININE 0.85 mg/dl (0.60-1.20); GLUCOSE 96 mg/dl (70-99); LDL CHOLESTEROL CALCULATED 18 mg/dl; POTASSIUM 3.6 mmol/L (3.5-5.1); SODIUM 142 mmol/L (136-145)
[2017-06-30 18:15] LABS: TOTAL PROTEIN 6.5 gm/dl (6.4-8.2)
[2017-07-01 06:43] LABS: HEMOGLOBIN A1C 5.2 % (4.5-5.6)
== END | disposition home or self-care (01) ==
LOC: C.LABBFT 12:56
PROVIDERS: ATTEND Student in an Organized Health Care Education/Training Program
DX: F31.9 Bipolar disorder, unspecified (principal)

== ENCOUNTER → 2017-07-04 | Outpatient (CLI) | payer OTHER | END | disposition home or self-care (01) | LOC: C.LABBFT 14:59 | PROVIDERS: ATTEND Psychiatry & Neurology Psychiatry | DX: F31.9 Bipolar disorder, unspecified (principal) ==

== ENCOUNTER 2017-10-01 23:07 | Emergency (ER) | payer OTHER ==
[~2017-10-01] VITALS: Ht 154.9 cm; Wt 68.0 kg
[2017-10-01 23:13] VITALS: TEMP 36.8; Ht 154.9 cm; Wt 68.0 kg
[2017-10-01] MEDS ORDERED: ONDANSETRON INJ 2 MG/ML 2 ML VIAL IV STA (23:29)
[2017-10-01] MEDS ORDERED: MoRPHine SULFATE 4 MG/ML 1 ML CARP\\VIAL IV STA (23:29)
[2017-10-01 23:32] VITALS: O2SAT 96
--- NOTE | 2017-10-01 23:43 | EMERGENCY ROOM VISIT NOTE ---
ED Visit Note First contact with patient: 23:20 I have seen and examined this patient with Malia Washburn and generally agree with the treatment plan as discussed. Current/Historical Medications Scheduled Atorvastatin (Lipitor), 20 MG PO HS Gabapentin (Gabapentin), 100 MG PO TID Levothyroxine Sodium (Synthroid), 100 MCG PO QPM [place] Carbonate ([place] Carbonate ER), 300 MG PO HS Propranolol (Inderal), 10 MG PO BID Tocopheryl Acet,Dl-Alpha (Vitamin E), 200 PO QAM Trazodone HCl (Trazodone HCl), 100 MG PO QPM Allergies Coded Allergies: Penicillins (Verified Allergy, Unknown, RASH, 02/23/17) Vital Signs Date Time Temp Pulse Resp B/P (MAP) Pulse Ox O2 Delivery O2 Flow Rate FiO2 10/01/17 23:32 96 Room Air 10/01/17 23:32 96 Room Air 10/01/17 23:29 70 20 105/86 98 Room Air 10/01/17 23:25 74 10/01/17 23:13 36.8 77 20 134/85 97 Room Air Laboratory Results Test 10/01/17 23:32 Medications Administered Medications (Trade) Dose Ordered Sig/Azeem Route Start Time Stop Time Status Last Admin Dose Admin Morphine Sulfate (MoRPHine SULFATE INJ) 4 mg NOW STAT IV 10/01/17 23:29 10/01/17 23:31 DC 10/01/17 23:42 4 MG Ondansetron HCl (Zofran Inj) 4 mg NOW STAT IV 10/01/17 23:29 10/01/17 23:31 DC 10/01/17 23:41 4 MG Departure Information Referrals Abhinav Astorga M.D. (PCP) Patient Instructions My [facility]
[2017-10-01 23:47] LABS: BASO % 0.2 %; BASO ABS # 0.02 K/uL (0-0.2); EOS ABS # 0.46 K/uL (0-0.5); HEMATOCRIT 39.7 % (37-47); HEMOGLOBIN 13.8 g/dL (12.0-16.0); IG# 0.02 K/uL (0.00-0.02); LYMPH % 32.7 %; LYMPH ABS # 3.02 K/uL (1.2-3.4); MEAN CELL VOLUME 84.1 fL (80-100); MEAN CORPUSCULAR HEMOGLOBIN 29.2 pg (25-34); MEAN CORPUSCULAR HGB CONC 34.8 g/dl (32-36); MEAN PLATELET VOLUME 10.6 fL (7.4-10.4); MONO % 8.4 %; MONO ABS # 0.78 K/uL (0.11-0.59); NEUT % 53.5 %; NEUT ABS # 4.94 K/uL (1.4-6.5); PLATELET COUNT 183 K/uL (130-400); RED CELL DISTRIBUTION WIDTH CV 12.5 % (11.5-14.5); RED CELL DISTRIBUTION WIDTH SD 38.2 fL (36.4-46.3); WHITE BLOOD COUNT 9.24 K/uL (4.8-10.8)
[2017-10-01] MEDS ORDERED: GABA-112 PO (23:56)
[2017-10-01] MEDS ORDERED: HYDR50CA2 PO (23:56)
[2017-10-01] MEDS ORDERED: ZOLP10TA PO (23:56)
[2017-10-01] MEDS ORDERED: LTHSR/300 PO (23:56)
[2017-10-02 00:06] LABS: ALBUMIN 3.5 gm/dl (3.4-5.0); ALKALINE PHOSPHATASE 102 U/L (45-117); ALT/SGPT 28 U/L (12-78); AST/SGOT 19 U/L (15-37); BLOOD UREA NITROGEN 14 mg/dl (7-18); CALCIUM 8.5 mg/dl (8.5-10.1); CARBON DIOXIDE 23 mmol/L (21-32); CREATININE 0.75 mg/dl (0.60-1.20); GLUCOSE 111 mg/dl (70-99); LIPASE 128 U/L (73-393); POTASSIUM 3.6 mmol/L (3.5-5.1); SODIUM 143 mmol/L (136-145); TOTAL PROTEIN 7.2 gm/dl (6.4-8.2)
[2017-10-02] MEDS ORDERED: DiphenhydrAMINE HCL 50 MG/ML VIAL IV STA (01:30)
[2017-10-02] MEDS ORDERED: KETOROLAC TROMETHAMINE 30 MG/ML VIAL IV STA (01:30)
[2017-10-02] MEDS ORDERED: METOCLOPRAMIDE HCL INJ 5 MG/ML 2 ML VIAL IV STA (01:30)
[2017-10-02] MEDS ORDERED: OPTIRAY 320 IV PRN (02:15)
--- NOTE | 2017-10-02 02:59 | EMERGENCY ROOM VISIT NOTE ---
History First contact with patient: 23:20 Chief Complaint: RIB PAIN Stated Complaint: SEVERE PAIN UNDER LEFT RIB CAGE History of Present Illness The patient is a 57 year old female who presents to the Emergency Room with complaints of severe left-sided chest pain and left upper abdominal pain for the past few hours described as severe, 8 out of 10. Palpation and movement makes it worse nothing makes it better. Patient denies fall, trauma, nausea, vomiting, diarrhea, dyspnea, fever, chills, cough, congestion, lightheadedness or dizziness or diaphoresis. No prior heart disease. No history of blood clots. Patient has had shingles before in the same region. She states this was way different. Review of Systems An 10 system review of systems was completed with positives and pertinent negatives listed in the HPI. Past Medical/Surgical History Medical Problems: (1) Bipolar Disorder, Unspecified (2) Depressive Disorder Nec (3) Esophageal Reflux (4) Hyperlipidemia (5) Hypothyroidism (6) Hypothyroidism Nos (7) Lumbago (8) Schizophrenia Nos-Unspec Family History Diabetes mellitus High blood pressure Mental disorder Social History Smoking Status: Never Smoker Alcohol Use: none, heavy Drug Use: none Marital Status: , in relationship Housing Status: lives with significant other Occupation Status: unemployed Current/Historical Medications Scheduled Atorvastatin (Lipitor), 20 MG PO HS Gabapentin (Neurontin), 100 MG PO TID Hydroxyzine Pamoate (Vistaril), 50 MG PO HS Levothyroxine Sodium (Synthroid), 100 MCG PO QPM [place] Carbonate ([place] Carbonate), 300 MG PO HS Propranolol (Inderal), 10 MG PO BID Tocopheryl Acet,Dl-Alpha (Vitamin E), 200 PO QAM Zolpidem Tartrate (Ambien), 10 MG PO HS Physical Exam Vital Signs Date Time Temp Pulse Resp B/P (MAP) Pulse Ox O2 Delivery O2 Flow Rate FiO2 10/02/17 01:47 75 18 130/80 93 Room Air 10/02/17 01:07 68 18 92 10/02/17 00:37 67 16 93 10/02/17 00:21 66 20 124/81 95 Room Air 10/02/17 00:19 124/81 10/01/17 23:37 71 20 97 10/01/17 23:32 96 Room Air 10/01/17 23:32 96 Room Air 10/01/17 23:29 70 20 105/86 98 Room Air 10/01/17 23:25 74 10/01/17 23:22 105/86 10/01/17 23:13 36.8 77 20 134/85 97 Room Air Physical Exam VITALS: Vitals are noted on the nurse's note and reviewed by myself. Vital signs stable GENERAL: Pleasant female with tardive dyskinesia, in no acute distress, nondiaphoretic, well-developed well-nourished. SKIN: The skin was without rashes, erythema, edema, or bruising. There is no tenting of the skin. Capillary reflex less than 2 seconds. HEAD: Normocephalic atraumatic. EARS: External auditory canals clear, tympanic membranes pearly jean-baptiste without erythema or effusion bilaterally. EYES: Pupils equal round and reactive to light and accommodation. Conjunctivae without injection, sclerae without icterus. Extraocular movements intact. NOSE: Patent, turbinates without inflammation or discharge. MOUTH: Mucous membranes moist. Pharynx without erythema or exudate. Uvula midline. Airway patent. Tongue does not deviate. NECK: Supple without nuchal rigidity. No lymphadenopathy. No thyromegaly. Cervical spine is nontender. No JVD. HEART: Regular rate and rhythm, left-sided chest over the T4-T5 dermatome exquisitely tender to palpation to the anterior and posterior portions of the left side easily reproducing symptoms without rash. LUNGS: Clear to auscultation bilaterally without wheezes, rales or rhonchi. No retractions or accessory muscle use. ABDOMEN: Positive bowel sounds x 4. Normal tympanic percussion. Soft, tender to palpation left upper quadrant, without masses or organomegaly. Torres sign negative. No guarding or rebound tenderness. No CVA tenderness MUSCULOSKELETAL: No muscle atrophy, erythema, or edema noted. NEURO: Patient was alert and oriented to person place and time. Normal sensation to light and sharp touch. No focal neurological deficits. Medical Decision & Procedures Laboratory Results 10/01/17 23:32 Red Blood Count 4.72, Mean Corpuscular Volume 84.1, Mean Corpuscular Hemoglobin 29.2, Mean Corpuscular Hemoglobin Concent 34.8, Mean Platelet Volume 10.6, Neutrophils (%) (Auto) 53.5, Lymphocytes (%) (Auto) 32.7, Monocytes (%) (Auto) 8.4, Eosinophils (%) (Auto) 5.0, Basophils (%) (Auto) 0.2, Neutrophils # (Auto) 4.94, Lymphocytes # (Auto) 3.02, Monocytes # (Auto) 0.78, Eosinophils # (Auto) 0.46, Basophils # (Auto) 0.02 10/01/17 23:32 Test 10/01/17 23:32 10/02/17 02:42 White Blood Count 9.24 K/uL (4.8-10.8) Red Blood Count 4.72 M/uL (4.2-5.4) Hemoglobin 13.8 g/dL (12.0-16.0) Hematocrit 39.7 % (37-47) Mean Corpuscular Volume 84.1 fL (80-100) Mean Corpuscular Hemoglobin 29.2 pg (25-34) Mean Corpuscular Hemoglobin Concent 34.8 g/dl (32-36) Platelet Count 183 K/uL (130-400) Mean Platelet Volume 10.6 fL (7.4-10.4) Neutrophils (%) (Auto) 53.5 % Lymphocytes (%) (Auto) 32.7 % Monocytes (%) (Auto) 8.4 % Eosinophils (%) (Auto) 5.0 % Basophils (%) (Auto) 0.2 % Neutrophils # (Auto) 4.94 K/uL (1.4-6.5) Lymphocytes # (Auto) 3.02 K/uL (1.2-3.4) Monocytes # (Auto) 0.78 K/uL (0.11-0.59) Eosinophils # (Auto) 0.46 K/uL (0-0.5) Basophils # (Auto) 0.02 K/uL (0-0.2) RDW Standard Deviation 38.2 fL (36.4-46.3) RDW Coefficient of Variation 12.5 % (11.5-14.5) Immature Granulocyte % (Auto) 0.2 % Immature Granulocyte # (Auto) 0.02 K/uL (0.00-0.02) D-Dimer 230 ug/L FEU (0-500) Anion Gap 8.0 mmol/L (3-11) Est Creatinine Clear Calc Drug Dose 71.2 ml/min Estimated GFR () 101.1 Estimated GFR (Non- 87.2 BUN/Creatinine Ratio 19.3 (10-20) Calcium Level 8.5 mg/dl (8.5-10.1) Total Bilirubin 0.5 mg/dl (0.2-1) Direct Bilirubin < 0.1 mg/dl (0-0.2) Aspartate Amino Transf (AST/SGOT) 19 U/L (15-37) Alanine Aminotransferase (ALT/SGPT) 28 U/L (12-78) Alkaline Phosphatase 102 U/L (45-117) Total Protein 7.2 gm/dl (6.4-8.2) Albumin 3.5 gm/dl (3.4-5.0) Lipase 128 U/L (73-393) Bedside Troponin I < 0.030 ng/ml (0-0.045) Medications Administered Medications (Trade) Dose Ordered Sig/Azeem Route Start Time Stop Time Status Last Admin Dose Admin Morphine Sulfate (MoRPHine SULFATE INJ) 4 mg NOW STAT IV 10/01/17 23:29 10/01/17 23:31 DC 10/01/17 23:42 4 MG Ondansetron HCl (Zofran Inj) 4 mg NOW STAT IV 10/01/17 23:29 10/01/17 23:31 DC 10/01/17 23:41 4 MG Ketorolac Tromethamine (Toradol Inj) 10 mg NOW STAT IV 10/02/17 01:30 10/02/17 01:31 DC 10/02/17 01:44 10 MG Metoclopramide HCl (Reglan Inj) 10 mg NOW STAT IV 10/02/17 01:30 10/02/17 01:31 DC 10/02/17 01:45 10 MG Diphenhydramine HCl (Benadryl Inj) 12.5 mg NOW STAT IV 10/02/17 01:30 10/02/17 01:31 DC 10/02/17 01:44 12.5 MG ED Course Prior records/ancillary studies reviewed. Triage Nursing notes reviewed. Additional history obtained from family. The patient's history was concerning for chest pain. Differential diagnosis: Etiologies such as shingles, cardiac ischemia, aortic dissection, pulmonary embolism, pneumonia, pneumothorax, musculoskeletal, infections, pericarditis, myocarditis, esophageal rupture, gastrointestinal, as well as others were entertained. Physical examination: As above. ER treatment provided: Morphine, Zofran On reassessment the patient felt better. Diagnostic interpretation by me: The electrocardiogram was negative for pathologic change. Normal sinus, normal intervals, no acute ST-T wave changes, rate of 70. Impression normal sinus rhythm interpreted by myself The labs revealed 2 negative troponins greater than 2 hours apart. Stable H&H Imaging studies: Chest x-ray with no acute consolidation, pneumothorax or free of my interpretation CT ABDOMEN & PELVIS With Contrast: Fluid levels in the colon without obstruction or wall thickening Normal appendix Radiologist: Pedro Rose MD US RUQ: Fatty enlarged liver. Unremarkable gallbladder, CBD, right kidney No free fluid Radiologist: Pedro Rose MD HEART SCORE: Hx: high/mod/low suspicion: 0 ECG: ST depression/nonspecific changes/normal: 0 Age: Greater than 65/45-64/less than 45: 1 Risk factors: (Hypertension, hyperlipidemia, diabetes, coronary disease, tobacco use, cocaine use): 2 Troponin: Greater than 2 times normal limits/1-2 times normal limits/normal: 0 Total: 3 Wells Score Symptoms of DVT 3pt: 0 Alternative diagnoses better explains illness 3pts: 0 Tachycardia greater than 100 1.5 pts 0 Immobilization greater than 3 days or surgery in the previous 4 weeks 1.5 pts: 0 Prior history of DVT or PE 1.5 pts: 0 Presence of hemoptysis 1pt: 0 Presence of malignancy 1pt: 0 (Score greater than 6 is high probability, score 2-6 moderate probability, score less than 2 low probability) Total: 0 Exam and history seem consistent with left lateral chest and upper abdominal pain probably most consistent with shingles. Patient was neurovascularly and neurologically intact. She is well-appearing. Low heart score. Normal EKG. 2 negative troponins. Exam and history seem most consistent with shingles. There was no rash at. She has had shingles in the same area. Patient was adamant this felt different so further imaging was ordered. Patient was advised if the rash starts to take medications as directed and follow-up family care in a few days here in the ER sooner for high fevers, lethargy, chest pain, diaphoresis, worsening signs or symptoms or as needed. By the evaluation outlined above emergent etiologies such as cardiac ischemia, aortic dissection, pulmonary embolism, pneumonia, pneumothorax, infections, pericarditis, myocarditis, gastrointestinal, as well as others were deemed relatively unlikely. The pt informed about the findings as listed above. All questions were answered and pleased with the treatment. Return instructions were outlined and the patient was discharged in stable condition. Outpatient prescription management: Valtrex Referral: The patient was referred back to primary care physician for follow-up in 2 to 3 days for a recheck of the current condition. Case reviewed with my attending The chart was completed utilizing [employer] Speech voice recognition software. Grammatical errors, random word insertions, pronoun errors, and incomplete sentences are an occassional consequence of this system due to software limitations, ambient noise, and hardware issues. Any formal questions or concerns about the content, text, or information contained within the body of this dictation should be directly addressed to the physician permit review assistant for clarification. Medical Decision As above Medication Reconcilliation Current Medication List: was personally reviewed by me Blood Pressure Screening Patient's blood pressure: Normal blood pressure Impression Primary Impression: Chest pain Additional Impression: Possible shingles Departure Information Dispostion Home / Self-Care Condition GOOD Referrals Abhinav Astorga M.D. (PCP) Patient Instructions My [facility] Additional Instructions Start the Valtrex if you develop the rash of shingles. Valtrex 1 g 3 times a day for one week.Any medication can cause an allergic reaction, stop the pills immediately and return to the ER for rash, hives, breathing difficulties, or swelling. Oxycodone (OxyIR) 5mg: Take 1-2 pills every four hours for breakthrough pain. Avoid alcohol, operating machinery or dangerous equipment, working on ladders or roofs, DRIVING, or situations where being under the influence may be dangerous. It is recommended to use an [id number] stool softener such as Colace, 100mg twice daily while taking this medication to avoid constipation. Ibuprofen(Motrin, Advil) may be used for fever or pain. Use 600mg every six hours as needed. Take with food. Avoid using more than 2400mg in a 24 hour period. Do not use 2400mg per day for more than three consecutive days without physician direction. Prolonged inappropriate use can lead to stomach upset or ulcers. (AND/OR) Acetaminophen(Tylenol) may be used for fever or pain. Use 1000mg every six hours as needed. Avoid using more than 3000mg in a 24 hour period. Rest and drink plenty of fluids. Avoid scratching the area. Avoid being around anyone immunocompromised or until rash has resolved. Continue current medications. Return to the ER for chest pain, difficulty breathing, fevers, vomiting, worsening of your condition, or as needed. Follow up with your primary physician this week for a recheck of your current condition. Problem Qualifiers Primary Impression: Chest pain Chest pain type: unspecified Qualified Codes: R07.9 - Chest pain, unspecified
[2017-10-02] MEDS ORDERED: OXYCODONE IR HOME PACK PO ONE (03:00)
[2017-10-02] MEDS ORDERED: VALA1TAB2 PO (03:00)
[2017-10-02 03:19] VITALS: BP 91/62; PULSE 73; O2SAT 96
--- NOTE | 2017-10-02 06:18 | DIAGNOSTIC IMAGING REPORT ---
CHEST ONE VIEW PORTABLE CLINICAL HISTORY: Atypical chest pain COMPARISON STUDY: 05/20/2016 FINDINGS: There are low lung volumes with bronchovascular crowding at the lung bases. The heart is mildly enlarged. There is no overt failure. There is no focal pulmonary consolidation. There are no pleural effusions.[ IMPRESSION: No active disease in the chest. Electronically signed by: Ernst Baxter M.D. 10/02/2017 6:17 AM Dictated Date/Time: 10/02/2017 6:16 AM
--- NOTE | 2017-10-02 06:32 | DIAGNOSTIC IMAGING REPORT ---
BILIARY ULTRASOUND CLINICAL HISTORY: epigastric pain COMPARISON STUDY: 01/12/2007 FINDINGS: The study was difficult from a technical standpoint. The pancreas was nonvisualized. The gallbladder. Sonographically normal. There is no ductal dilatation. The common bile duct measured 4 mm. There is no right-sided hydronephrosis. No focal hepatic masses were visualized. IMPRESSION: 1. Nondiagnostic evaluation of the pancreas 2. Ultrasonographically normal gallbladder. No ductal dilatation. Electronically signed by: Ernst Baxter M.D. 10/02/2017 6:31 AM Dictated Date/Time: 10/02/2017 6:29 AM
--- NOTE | 2017-10-02 06:40 | DIAGNOSTIC IMAGING REPORT ---
CT ABD/PELVIS IV CONTRAST ONLY CLINICAL HISTORY: Left upper quadrant abdominal pain COMPARISON STUDY: November 2008 TECHNIQUE: Following the IV administration of 116 mL of Optiray-320, CT scan of the abdomen and pelvis was performed from the lung bases to the proximal femurs. Images are reviewed in the axial, sagittal, and coronal planes. IV contrast was administered without complication. A dose lowering technique was utilized adhering to the principles of ALARA. CT DOSE: 434.03 mGy.cm FINDINGS: Lower chest: There are mild dependent atelectatic changes. Liver: The contrast-enhanced liver is normal in size, contour, and attenuation. There is no intrahepatic biliary ductal dilatation. The hepatic veins and portal veins are patent. Gallbladder: Unremarkable. Spleen: Normal in size and attenuation. Pancreas: Unremarkable. Adrenal glands: Unremarkable. Kidneys: There is an enlarging 23 mm left upper pole renal hypodensity. This exceeds water attenuation and is indeterminate. A nonemergent renal MRI is recommended in follow-up. A 1 cm lower pole right renal hypodensity, likely represents a cyst. Bowel: There are no transition zones indicate bowel obstruction. The appendix appears normal. There is no evidence of acute diverticulitis. Peritoneum: There is no intraperitoneal free air or abdominal ascites. Vasculature: The abdominal aorta is normal in course and caliber. Adenopathy: None. Pelvic viscera: The bladder, and pelvic viscera are unremarkable. Skeletal structures: No destructive osseous lesions are seen. IMPRESSION: 1. No evidence of bowel obstruction. No evidence of free air 2. Normal appendix. No evidence of acute diverticulitis 3. Indeterminate 23 mm left upper pole renal hypodensity. A nonemergent renal MRI is recommended in follow-up. This report will be called to the emergency room, as this nonemergent finding was not described in the preliminary report Electronically signed by: Ernst Baxter M.D. 10/02/2017 6:39 AM Dictated Date/Time: 10/02/2017 6:33 AM
== END 2017-10-02 03:20 | disposition home or self-care (01) ==
LOC: C.EDB 23:08 → C.EDA 10-02 03:20
DX: R07.9 Chest pain, unspecified (principal); F31.9 Bipolar disorder, unspecified; F20.9 Schizophrenia, unspecified; E03.9 Hypothyroidism, unspecified; Z79.899 Other long term (current) drug therapy

== ENCOUNTER → 2017-11-21 | Outpatient (CLI) | payer OTHER ==
[~2017-11-21] MED LIST changes: -DSY100 PO; +GABA-112 PO; +HYDR50CA2 PO; -LTHCR300 PO; +LTHSR/300 PO; -NRN100 PO; +ZOLP10TA PO
[2017-11-21 12:27] LABS: BASO % 0.3 %; BASO ABS # 0.02 K/uL (0-0.2); EOS % 6.8 %; HEMATOCRIT 41.7 % (37-47); IG# 0.01 K/uL (0.00-0.02); LYMPH % 36.8 %; MEAN CELL VOLUME 86.9 fL (80-100); MEAN CORPUSCULAR HEMOGLOBIN 29.2 pg (25-34); MEAN CORPUSCULAR HGB CONC 33.6 g/dl (32-36); MEAN PLATELET VOLUME 11.3 fL (7.4-10.4); MONO ABS # 0.51 K/uL (0.11-0.59); NEUT ABS # 3.59 K/uL (1.4-6.5); PLATELET COUNT 204 K/uL (130-400); RED CELL DISTRIBUTION WIDTH CV 13.3 % (11.5-14.5); RED CELL DISTRIBUTION WIDTH SD 42.4 fL (36.4-46.3); WHITE BLOOD COUNT 7.33 K/uL (4.8-10.8)
[2017-11-21 12:49] LABS: ALBUMIN 3.7 gm/dl (3.4-5.0); ALKALINE PHOSPHATASE 110 U/L (45-117); ALT/SGPT 32 U/L (12-78); AST/SGOT 17 U/L (15-37); BLOOD UREA NITROGEN 14 mg/dl (7-18); CALCIUM 8.6 mg/dl (8.5-10.1); CARBON DIOXIDE 27 mmol/L (21-32); GLUCOSE 78 mg/dl (70-99); POTASSIUM 4.3 mmol/L (3.5-5.1); SODIUM 141 mmol/L (136-145)
--- NOTE | 2017-12-09 08:30 | CODING QUERY NO DIAGNOSIS ---
1960 TREATMENT RENDERED WITHOUT A DIAGNOSIS To promote full compliance with coding requirements relating to patient care, physician participation is requested in all cases of helmet hat brim cutter uncertainty. Please assist us with providing a diagnosis/symptom for the test(s) below: A diagnosis/symptom was not documented on your Order. A valid diagnosis/symptom is required to bill all insurances. Please remember that we are unable to code a diagnosis of rule out, probable, possible, questionable, or suspected. Tests that require a diagnosis: 11/21/17 CBC DIFF DIAGNOSIS: CMP LFT DIAGNOSIS: TSH DIAGNOSIS: B 12 DIAGNOSIS: UA DIAGNOSIS: LITHIUM LEVEL DIAGNOSIS: FOLATE DIAGNOSIS: Provider Signature: Date: Thank you KIM Singletary, [facility] Health Information Management Once completed, please kindly fax back to [phone] For questions please call [phone]
== END | disposition home or self-care (01) ==
LOC: C.LABBFT 10:40
PROVIDERS: ATTEND Psychiatry & Neurology Psychiatry
DX: E78.5 Hyperlipidemia, unspecified (principal)

== ENCOUNTER 2018-08-22 17:07 | Inpatient (IN) ==
[2018-08-22] MEDS ORDERED: LORazepam 1 MG TAB PO STA (17:34)
[2018-08-22 18:12] LABS: Basophils # (auto) 0.03 K/uL (0-0.2); Basophils % (auto) 0.3 %; Eosinophils # (auto) 0.26 K/uL (0-0.5); Eosinophils % (auto) 2.5 %; Hematocrit (blood only) 41.4 % (37-47); Hemoglobin 14.1 g/dL (12.0-16.0); Immature Granulocytes # (auto) 0.01 K/uL (0.00-0.02); Immature Granulocytes % (auto) 0.1 %; Lymphocytes # (auto) 3.97 K/uL (1.2-3.4); Lymphocytes % (auto) 38.5 %; Mean Corpuscular Hgb Conc 34.1 g/dL (32-36); Mean Corpuscular Volume 85.5 fL (80-100); Mean Platelet Volume 10.6 fL (7.4-10.4); Monocytes # (auto) 0.76 K/uL (0.11-0.59); Monocytes % (auto) 7.4 %; Neutrophils # (auto) 5.27 K/uL (1.4-6.5); Neutrophils % (auto) 51.2 %; Platelet Count 228 K/uL (130-400); RDW Coefficient of Variation 12.6 % (11.5-14.5); RDW Standard Deviation 39.4 fL (36.4-46.3); Red Blood Count 4.84 M/uL (4.2-5.4)
[2018-08-22 18:21] LABS: BUN Creatinine Ratio 10.5 (10-20); Calcium 8.7 mg/dl (8.5-10.1); Creatinine Clr Calc Pharmacy 55.6 ml/min; Est GFR (African American) 71.8; Est GFR (Non-African American) 61.9; Potassium 3.3 mmol/L (3.5-5.1)
[2018-08-22 18:29] LABS: Amphetamines+Metham, Urine Neg (Neg); Appearance Urine Clear (Clear); Barbiturates, Urine Neg (Neg); Benzodiazepine, Urine Neg (Neg); Bilirubin Urine Negative (Negative); Blood Urine Negative (Negative); Cocaine, Urine Neg (Neg); Color Urine Yellow; Glucose Urine UA Negative (Negative); Ketones Urine Negative (Negative); Leukocyte Esterase Urine Negative (Negative); MDMA (Ecstacy), Urine Neg (Neg); Methadone, Urine Neg (Neg); Nitrite Urine Negative (Negative); Opiate, Urine Neg (Neg); Phencyclidine, Urine Neg (Neg); Protein Urine Negative (Negative); Specific Gravity Urine 1.003 (1.000-1.030); Urobilinogen Urine Negative (Negative)
[2018-08-22 18:31] LABS: Albumin Globulin Ratio 1.3 (0.9-2); Bilirubin,Total 1.3 mg/dl (0.2-1); Globulin 3.1 gm/dl (2.5-4.0); Total Protein 7.1 gm/dl (6.4-8.2)
[2018-08-22 18:42] LABS: Acetaminophen < 2 ug/ml (10-30); Lithium 0.4 mmol/L (0.6-1.2); Salicylate < 1.7 mg/dl (2.8-20)
--- NOTE | 2018-08-22 19:19 | Emergency Department Note ---
Entered by Diamante Patterson acting as a scribe for History of Present Illness General Chief complaint: Mental Health Evaluation Stated complaint: MANIC Time Seen by Provider: 08/22/18 17:23 Source: patient and family (son) Mode of arrival: ambulatory Limitations: no limitations History of Present Illness Provider complaint: MHE Onset (ago): month(s) 2 Location: head Pain Consistency: + other (worsening) Quality: + other (manic) Associated symptoms: + denies other symptoms (SI) and + other (AVH, aggresive) Treatments prior to arrival: other (Ativan) The patient is a 58 year old female who presents to the Emergency Room for a mental health evaluation. The patients son reports that the patient called him on Tuesday stating she needed help. He states that he spoke to the patients who stated that the patient has been more aggressive and angry. The son also notes that the patient has been restless and having auditory and visual hallucinations of past events. The patients son reports that he took the patient to her psychiatrist and she has since been placed on new psych medications. Per son, the patient last took Ativan 1.5 hours ago. The son also states that the patient has been dry heaving but has not had an episode of vomiting. He notes that he woke up at about 0300 this morning and found the patient cleaning out closets throughout the entire house. The patient denies any suicidal ideations. The son reports that the patient was referred to the ER by her psychiatrist for worsening of symptoms. Home Medications Home Medications Medication Instructions Recorded Confirmed Type atorvastatin [Lipitor] 20 mg PO HS #0 tab 10/05/16 08/22/18 History levothyroxine [Synthroid] 100 mcg PO DAILY #0 tab 10/05/16 08/22/18 History vitamin E 200 unit PO DAILY #0 10/05/16 08/22/18 History propranolol 10 mg PO BID #60 01/21/17 08/22/18 History gabapentin 100 mg PO TID #0 cap 10/01/17 08/22/18 History hydroxyzine HCl 50 mg PO HS #0 cap 10/01/17 08/22/18 History lithium carbonate 300 mg PO HS #0 cap 10/01/17 08/22/18 History zolpidem [Ambien] 10 mg PO HS #0 tab 10/01/17 08/22/18 History lorazepam [Ativan] 0.5 mg PO TID PRN 08/22/18 08/22/18 History lurasidone [Latuda] 20 mg PO DAILY 08/22/18 08/22/18 History temazepam [Restoril] 15 mg PO HS PRN 08/22/18 08/22/18 History Allergies Allergy/AdvReac Type Severity Reaction Status Date / Time Penicillins Allergy Unknown Rash Verified 08/22/18 18:48 Past Med/Surg History Medical History Bipolar 1 disorder (Chronic) Hyperlipidemia Hypothyroidism Mood disorder (Chronic) Social History marital status: Current Living Situation: Family Feels Safe at Home: Yes Smoking Status: Never smoker Review of Systems See HPI for pertinent positives & negatives. and A total of 10 systems reviewed and were otherwise negative Physical Exam Vital Signs Vital Signs - 24 hr 08/22/18 17:11 08/22/18 20:00 08/22/18 22:00 Temperature 36.3 C L Temperature Source Oral Sepsis Recent Fever Within 48 Hours No Sepsis New/Unexplained Change in Mental Status No Sepsis Action Taken by Nursing No Action Required Pulse Rate 65 Pulse Rate [Finger] 95 H 88 Pulse Rhythm [Finger] Regular Regular Pulse Strength [Finger] Normal Normal Respiratory Rate 20 20 20 Respiratory Effort / Characteristics Non-Labored Spontaneous Non-Labored Spontaneous Non-Labored Spontaneous Respiratory Depth Normal Normal Respiratory Pattern Regular Regular Blood Pressure 162/103 H Blood Pressure [Right Arm] 116/78 118/76 Blood Pressure Mean 122 Blood Pressure Mean [Right Arm] 90 90 Blood Pressure Position Sitting Blood Pressure Position [Right Arm] Sitting Standing Pulse Oximetry 92 98 99 Oxygen Delivery Method Room Air Room Air GENERAL: Patient is in no acute distress. HEENT: No acute trauma, normocephalic atraumatic, mucous membranes moist, no nasal congestion, no scleral icterus. NECK: No stridor, no adenopathy, no meningismus, trachea is midline. LUNGS: Clear to auscultation bilaterally, no wheeze, no rhonchi, breath sounds equal. HEART: Without murmurs gallops or rubs, regular rate and rhythm. ABDOMEN: Soft, nontender, bowel sounds positive, no hernias, no peritonitis. EXTREMITIES: No cyanosis or edema, full range of motion of all the joints without pain or difficulty, no signs for acute trauma. NEUROLOGIC: Oriented x 3, no acute motor or sensory deficits, no focal weakness. SKIN: No rash, no jaundice, no diaphoresis. PSYCH: Currently cooperative, somewhat anxious, denies SI, reportedly hallucinating. Course 1726: The patient was evaluated in room A5, and a complete history and physical examination were performed. 1856: Psych CM will be evaluating the patient. 2113: Psych CM stated that they are making a referral for [address] [place] [address]. 2249: The patient was accepted into [address] [place] [address]. Administered Medications Discontinued Medications Atorvastatin Calcium (Lipitor) 20 mg PO NOW STA Stop: 08/22/18 22:52 Last Admin: 08/22/18 23:15 Dose: 20 mg Documented by: [id number] Gabapentin (Neurontin) 100 mg PO NOW STA Stop: 08/22/18 22:52 Last Admin: 08/22/18 23:16 Dose: 100 mg Documented by: [id number] Hydroxyzine HCl (Vistaril) 50 mg PO NOW STA Stop: 08/22/18 22:52 Last Admin: 08/22/18 23:17 Dose: 50 mg Documented by: [id number] [place] Carbonate ([place] Carbonate) 300 mg PO NOW STA Stop: 08/22/18 22:52 Last Admin: 08/22/18 23:15 Dose: 300 mg Documented by: [id number] Lorazepam (Ativan) 1 mg PO NOW STA Stop: 08/22/18 17:35 Last Admin: 08/22/18 18:00 Dose: 1 mg Documented by: [id number] Lorazepam (Ativan) 1 mg SL NOW STA Stop: 08/22/18 20:31 Last Admin: 08/22/18 21:22 Dose: 1 mg Documented by: [id number] Lurasidone HCl (Latuda) 20 mg PO NOW STA Stop: 08/22/18 22:52 Last Admin: 08/22/18 23:14 Dose: 20 mg Documented by: [id number] Ondansetron HCl (Zofran Odt) 4 mg PO NOW STA Stop: 08/22/18 20:31 Last Admin: 08/22/18 21:22 Dose: 4 mg Documented by: [id number] Temazepam (Restoril) 15 mg PO NOW STA Stop: 08/22/18 22:52 Last Admin: 08/22/18 23:16 Dose: 15 mg Documented by: [id number] Medical Decision Making Differential Diagnosis Differential Diagnosis includes: psychosis, alison, medication non-compliance, electrolyte imbalance, dehydration, and drug and alcohol abuse. Home Medications Current Medication List: was personally reviewed by me Laboratory Data Attestation: I reviewed the patient's lab results. Result diagrams: 08/22/18 17:51 08/22/18 17:51 Lab Results 08/22/18 08/22/18 08/22/18 Range/Units 17:30 17:30 17:51 WBC 10.30 (4.8-10.8) K/uL RBC 4.84 (4.2-5.4) M/uL Hgb 14.1 (12.0-16.0) g/dL Hct 41.4 (37-47) % MCV 85.5 (80-100) fL MCH 29.1 (25-34) pg MCHC 34.1 (32-36) g/dL RDW Std Deviation 39.4 (36.4-46.3) fL RDW Coeff of Zakiya 12.6 (11.5-14.5) % Plt Count 228 (130-400) K/uL MPV 10.6 H (7.4-10.4) fL Immature Gran % (Auto) 0.1 % Neut % (Auto) 51.2 % Lymph % (Auto) 38.5 % [place] % (Auto) 7.4 % Eos % (Auto) 2.5 % Baso % (Auto) 0.3 % Immature Gran # (Auto) 0.01 (0.00-0.02) K/uL Neut # (Auto) 5.27 (1.4-6.5) K/uL Lymph # (Auto) 3.97 H (1.2-3.4) K/uL [place] # (Auto) 0.76 H (0.11-0.59) K/uL Eos # (Auto) 0.26 (0-0.5) K/uL Baso # (Auto) 0.03 (0-0.2) K/uL Sodium (136-145) mmol/L Potassium (3.5-5.1) mmol/L Chloride (98-107) mmol/L Carbon Dioxide (21-32) mmol/L Anion Gap (3-11) BUN (7-18) mg/dl Creatinine (0.6-1.2) mg/dl Est Cr Clr Drug Dosing ml/min Est GFR ( Amer) Est GFR (Non-Af Amer) BUN/Creatinine Ratio (10-20) Glucose (70-99) mg/dl Calcium (8.5-10.1) mg/dl Total Bilirubin (0.2-1) mg/dl AST (15-37) U/L ALT (12-78) U/L Alkaline Phosphatase (45-117) U/L Total Protein (6.4-8.2) gm/dl Albumin (3.4-5.0) gm/dl Globulin (2.5-4.0) gm/dl Albumin/Globulin Ratio (0.9-2) TSH (0.300-4.500) uIu/ml Urine Color Yellow Urine Appearance Clear (Clear) Urine pH 7.0 (4.5-7.5) Ur Specific [place] 1.003 (1.000-1.030) Urine Protein Negative (Negative) Urine Glucose (UA) Negative (Negative) Urine Ketones Negative (Negative) Urine Blood Negative (Negative) Urine Nitrite Negative (Negative) Urine Bilirubin Negative (Negative) Urine Urobilinogen Negative (Negative) Ur Leukocyte Esterase Negative (Negative) Urine Test (Negative) Salicylates (2.8-20) mg/dl Urine Opiates Screen Neg (Neg) Ur Methadone, Qual Neg (Neg) Acetaminophen (10-30) ug/ml Urine Barbiturates Neg (Neg) Ur Phencyclidine (PCP) Neg (Neg) U Amphetamin/Meth Scrn Neg (Neg) MDMA (Ecstasy) Screen Neg (Neg) U Benzodiazepines Scrn Neg (Neg) [place] (0.6-1.2) mmol/L Ur Cocaine Metabolite Neg (Neg) U Marijuana (THC) Screen Neg (Neg) Ethyl Alcohol mg/dL (0-3) mg/dl 08/22/18 08/22/18 08/22/18 Range/Units 17:51 17:51 17:51 WBC (4.8-10.8) K/uL RBC (4.2-5.4) M/uL Hgb (12.0-16.0) g/dL Hct (37-47) % MCV (80-100) fL MCH (25-34) pg MCHC (32-36) g/dL RDW Std Deviation (36.4-46.3) fL RDW Coeff of Zakiya (11.5-14.5) % Plt Count (130-400) K/uL MPV (7.4-10.4) fL Immature Gran % (Auto) % Neut % (Auto) % Lymph % (Auto) % [place] % (Auto) % Eos % (Auto) % Baso % (Auto) % Immature Gran # (Auto) (0.00-0.02) K/uL Neut # (Auto) (1.4-6.5) K/uL Lymph # (Auto) (1.2-3.4) K/uL [place] # (Auto) (0.11-0.59) K/uL Eos # (Auto) (0-0.5) K/uL Baso # (Auto) (0-0.2) K/uL Sodium 135 L (136-145) mmol/L Potassium 3.3 L (3.5-5.1) mmol/L Chloride 105 (98-107) mmol/L Carbon Dioxide 23 (21-32) mmol/L Anion Gap 7.0 (3-11) BUN 10 (7-18) mg/dl Creatinine 0.99 (0.6-1.2) mg/dl Est Cr Clr Drug Dosing 55.6 ml/min Est GFR ( Amer) 71.8 Est GFR (Non-Af Amer) 61.9 BUN/Creatinine Ratio 10.5 (10-20) Glucose 117 H (70-99) mg/dl Calcium 8.7 (8.5-10.1) mg/dl Total Bilirubin 1.3 H (0.2-1) mg/dl AST 24 (15-37) U/L ALT 31 (12-78) U/L Alkaline Phosphatase 119 H (45-117) U/L Total Protein 7.1 (6.4-8.2) gm/dl Albumin 4.0 (3.4-5.0) gm/dl Globulin 3.1 (2.5-4.0) gm/dl Albumin/Globulin Ratio 1.3 (0.9-2) TSH 0.380 (0.300-4.500) uIu/ml Urine Color Urine Appearance (Clear) Urine pH (4.5-7.5) Ur Specific [place] (1.000-1.030) Urine Protein (Negative) Urine Glucose (UA) (Negative) Urine Ketones (Negative) Urine Blood (Negative) Urine Nitrite (Negative) Urine Bilirubin (Negative) Urine Urobilinogen (Negative) Ur Leukocyte Esterase (Negative) Urine Test (Negative) Salicylates < 1.7 L (2.8-20) mg/dl Urine Opiates Screen (Neg) Ur Methadone, Qual (Neg) Acetaminophen < 2 L (10-30) ug/ml Urine Barbiturates (Neg) Ur Phencyclidine (PCP) (Neg) U Amphetamin/Meth Scrn (Neg) MDMA (Ecstasy) Screen (Neg) U Benzodiazepines Scrn (Neg) [place] 0.4 L (0.6-1.2) mmol/L Ur Cocaine Metabolite (Neg) U Marijuana (THC) Screen (Neg) Ethyl Alcohol mg/dL < 3.0 (0-3) mg/dl 08/22/18 Range/Units 21:29 WBC (4.8-10.8) K/uL RBC (4.2-5.4) M/uL Hgb (12.0-16.0) g/dL Hct (37-47) % MCV (80-100) fL MCH (25-34) pg MCHC (32-36) g/dL RDW Std Deviation (36.4-46.3) fL RDW Coeff of Zakiya (11.5-14.5) % Plt Count (130-400) K/uL MPV (7.4-10.4) fL Immature Gran % (Auto) % Neut % (Auto) % Lymph % (Auto) % [place] % (Auto) % Eos % (Auto) % Baso % (Auto) % Immature Gran # (Auto) (0.00-0.02) K/uL Neut # (Auto) (1.4-6.5) K/uL Lymph # (Auto) (1.2-3.4) K/uL [place] # (Auto) (0.11-0.59) K/uL Eos # (Auto) (0-0.5) K/uL Baso # (Auto) (0-0.2) K/uL Sodium (136-145) mmol/L Potassium (3.5-5.1) mmol/L Chloride (98-107) mmol/L Carbon Dioxide (21-32) mmol/L Anion Gap (3-11) BUN (7-18) mg/dl Creatinine (0.6-1.2) mg/dl Est Cr Clr Drug Dosing ml/min Est GFR ( Amer) Est GFR (Non-Af Amer) BUN/Creatinine Ratio (10-20) Glucose (70-99) mg/dl Calcium (8.5-10.1) mg/dl Total Bilirubin (0.2-1) mg/dl AST (15-37) U/L ALT (12-78) U/L Alkaline Phosphatase (45-117) U/L Total Protein (6.4-8.2) gm/dl Albumin (3.4-5.0) gm/dl Globulin (2.5-4.0) gm/dl Albumin/Globulin Ratio (0.9-2) TSH (0.300-4.500) uIu/ml Urine Color Urine Appearance (Clear) Urine pH (4.5-7.5) Ur Specific [place] (1.000-1.030) Urine Protein (Negative) Urine Glucose (UA) (Negative) Urine Ketones (Negative) Urine Blood (Negative) Urine Nitrite (Negative) Urine Bilirubin (Negative) Urine Urobilinogen (Negative) Ur Leukocyte Esterase (Negative) Urine Test Negative (Negative) Salicylates (2.8-20) mg/dl Urine Opiates Screen (Neg) Ur Methadone, Qual (Neg) Acetaminophen (10-30) ug/ml Urine Barbiturates (Neg) Ur Phencyclidine (PCP) (Neg) U Amphetamin/Meth Scrn (Neg) MDMA (Ecstasy) Screen (Neg) U Benzodiazepines Scrn (Neg) [place] (0.6-1.2) mmol/L Ur Cocaine Metabolite (Neg) U Marijuana (THC) Screen (Neg) Ethyl Alcohol mg/dL (0-3) mg/dl Blood Pressure Blood Pressure Findings: Normal blood pressure Blood Pressure Disposition: did not require urgent referral MDM Narrative There is no leukocytosis or concerning anemia. No significant electrolyte abnormality, no kidney failure. There were a few scattered liver enzyme elevations. The patient appeared to be in a euthyroid state. Urinalysis did not show infection. Aspirin and Tylenol levels were undetectable. Alcohol level was undetectable. [place] level was low at 0.4. Urine tox was negative. The patient presents with some alison and hallucinations. She has an underlying history of the same. She was given oral Ativan and oral Zofran during her ED stay. She was given her typical psychiatric nighttime medications. The patient was felt medically clear for a psychiatric evaluation. She was seen by psychiatry case management. A consult was made to the 3 S. psychiatric unit here at this hospital. The patient is going to be voluntarily brought into this facility for psychiatric care. She has done well during her ED stay. Impression & Plan Psychosis, Hallucinations, Alison Discharge Plan Visit Data *Final* Discharge Date/Time: 08/22/18 23:45 Chief Complaint: Mental Health Evaluation Stated Complaint: MANIC ED Provider: Lucas Doshi Discharge Problem: Psychosis, Hallucinations, Alison Patient Disposition: Transfer Behavioral Health Fac Discharge Instructions Interventions: ED Discharge Assessment Last Done: 08/22/18 23:45 Discharge Problem: Psychosis Qualifiers: Psychosis type: unspecified psychosis type Qualified Code(s): F29 - Unspecified psychosis not due to a substance or known physiological condition The madelin's documentation has been prepared under my direction and personally reviewed by me in its entirety. I confirm that the note above accurately reflects all work, treatment, procedures, and medical decision making performed by me.
[2018-08-22] MEDS ORDERED: LORazepam 1 MG TAB SL STA (20:30)
[2018-08-22] MEDS ORDERED: ONDANSETRON 4 MG OD TAB PO STA (20:30)
[2018-08-22 21:40] LABS: Pregnancy Test, Urine Negative (Negative)
[2018-08-22] MEDS ORDERED: ACETAMINOPHEN 325 MG TAB PO PRN (22:36)
[2018-08-22] MEDS ORDERED: MAGNESIUM HYDROXIDE SUSP 30 ML UDC PO PRN (22:36)
[2018-08-22] MEDS ORDERED: ALUMINUM/MAGNESIUM SUSP 30 ML UDC PO PRN (22:36)
[2018-08-22] MEDS ORDERED: BISMUTH SUBSALICYLATE PER ML OMNICELL CHARGE PO PRN (22:36)
[2018-08-22] MEDS ORDERED: SODIUM CHLORIDE 0.65% NA SOLN 45 ML (OCEAN) PRN (22:36)
[2018-08-22] MEDS ORDERED: ATORVASTATIN 20 MG TAB PO STA (22:51)
[2018-08-22] MEDS ORDERED: LITHIUM ORAL SOLN 300MG/5 ML UDP PO STA (22:51)
[2018-08-22] MEDS ORDERED: LURASIDONE HCL 40 MG TAB PO STA (22:51)
[2018-08-22] MEDS ORDERED: TEMAZEPAM 15 MG CAPSULE PO STA (22:51)
[2018-08-22] MEDS ORDERED: GABAPENTIN 100 MG CAP PO STA (22:51)
[2018-08-22] MEDS ORDERED: LITHIUM CARBONATE 300 MG TAB PO STA (22:51)
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
[2018-08-23] MEDS: ATORVASTATIN 20 MG TAB PO SCH (21:08)
[2018-08-23] MEDS: LITHIUM CARBONATE SLOW REL 300 MG TAB PO SCH (21:08)
[2018-08-23] MEDS: GABAPENTIN 100 MG CAP PO SCH (21:09)
[2018-08-23] MEDS: PROPRANOLOL HCL 10 MG TAB PO SCH (21:09)
[2018-08-24] MEDS: LEVOTHYROXINE SODIUM 100 MCG TABLET PO SCH (06:31)
[2018-08-24] MEDS: PROPRANOLOL HCL 10 MG TAB PO SCH ×2 (07:43→21:04)
[2018-08-24] MEDS: GABAPENTIN 100 MG CAP PO SCH ×3 (07:43→21:04)
[2018-08-24] MEDS ORDERED: HALOPERIDOL LACTATE 5 MG/ML 1 ML VIAL IM PRN (08:20)
[2018-08-24] MEDS ORDERED: LORazepam 2 MG/ML VIAL (IM USE) IM PRN (08:21)
[2018-08-24] MEDS: LORazepam 1 MG TAB PO PRN ×3 (08:43→20:02)
[2018-08-24] MEDS: HALOPERIDOL 5 MG TAB PO PRN ×3 (08:43→20:02)
[2018-08-24] MEDS ORDERED: TOCOPHERYL, DL-ALPHA 100 UNITS CAP PO SCH (09:00)
--- NOTE | 2018-08-24 11:19 | Psychiatric Progress Note ---
Date of Service August 24, 2018 Impression / Recommendations Impression 58-year-old female with a history of bipolar disorder type I and multiple admissions for psychotic alison, who is admitted voluntarily after decompensating at home over the past couple of months, culminating in erratic and psychotic behavior, delusions of persecution, paranoia, and insomnia. She is a limited historian and unable to provide information, but her outpatient medication list is not confirmed with her psychiatrist, and lurasidone will be resumed as soon as family can bring it in. (1) Bipolar 1 disorder: 08/23 - Continue home medications (as reported), and confirm with OP records from Dr. Chadwick. -Discontinue zolpidem and Restoril as ineffective for sleep. -Family meeting once able to tolerate -Groups once able to tolerate. -Fasting lipid profile and glucose performed 06/29/2018 for monitoring on an atypical antipsychotic: Cholesterol levels within normal, and glucose 113. Hemoglobin A1c was 5.6% on 05/23/2018. -Clarify whether patient has case management services, as she has been referred in the past. Recommend individual therapy, which historically she has declined. 08/24 - Clarified OP med list - Latuda is 20mg daily, will resume as soon as brings it in, and titrate to effective dose. -Haldol 5mg and lorazepam 1mg added for acute agitation/psychosis. Will also add benztropine 1mg prn EPS/dystonia. -Patient never followed up with therapy or case management in the past, and will need to revisit this with her once less symptomatic. -She has not yet been able to tolerate an AIMS assessment, as she has been unable to get out of bed and sit to participate in the interview, but this would be beneficial to get once she is able to participate. Present on Admission?: Yes (2) Hypothyroidism: 08/23 -continue home dose of levothyroxine. TSH normal at 0.380. Present on Admission?: Yes (3) Hyperlipidemia: 08/23 - Continue home dose of atorvastatin Present on Admission?: Yes Risk Factors Assessment increased outpatient supports Male: No : Yes Do You Have Access To A Gun?: Yes (Children found her at home with a gun prior to admission) Health Problems: Yes Mental Health Diagnoses: Yes Substance Use Disorders: No Previous Psychiatric Hospitalization: Yes Smoker: No Protective Factors Assessment : Yes Responsible for Young Children: No Employed: No (Unable to maintain employment dt paranoia) Supportive Family: Yes Interval History Chief Complaint "Not good". Review of Systems Sleep Information Total Hours of Sleep: 7.25 Sleep Comments: Majority of sleep was on evening shift. Patient was singing and dancing frequently during the night. Meal Information Percent Meal Consumed - Breakfast: 0 Percent Meal Consumed - Lunch: 0 Percent Meal Consumed - Dinner: 0 Subjective Subjective Patient was seen & assessed and interval progress reviewed with Treatment Team. Staff report her son called and was given an update, reported the patient has been deteriorating since June, has been isolating, and recently had a conflict with her sister, which often happens when she is unstable. He also reported that there is been significant marital strain due to her mental health issues. He was very concerned about her, and worried that she would attempt to leave treatment prematurely. The patient does appear disoriented at times, getting into the wrong bed in her room, and has not been able to participate in therapy or programming. Her did visit last evening. Although she was a ble to complete the TR assessment, at times she does not respond to staff. She has episodes of agitation, where she is psychomotorically agitated and moaning. Despite receiving hydroxyzine, she was up frequently overnight, was agitated, dancing, and singing loudly. This morning she became agitated, was yelling and screaming, and received haloperidol and Ativan.On my assessment, she was seen in her room, where she was lying in bed awake. She is a limited historian, at times responding with unintelligible speech. She says she is "not good," as she is fearful and thinks she is going to . She endorses auditory hallucinations, saying "they are coming to get me." She does not feel safe here, but cannot explain why, saying "my surrounding, it's war, the floor..." She does feel calmer after taking medication this morning. Summary of Past History Form Letter from [facility] [place] [facility] received and reviewed (no actual records received): Diagnoses: schizoaffective disorder, unspecified; Panic disorder without agoraphobia; insomnia, drug induced tardive dyskinesia. Med list: lurasidone 20mg daily propranolol 10mg bid lithium ER 300mg daily gabapentin 100mg tid hydroxyzine 50mg HS temazepam 15mg HS lorazepam 0.5mg tid Physical Exam Mental Examination Overweight white female appearing her stated age. Lying in bed in moderate distress, rolling from side to side, moaning, unintelligible speech at times. + Movements of tongue and lips, no cogwheeling or rigidity. Poor eye contact, limited historian. Speech is minimal, unintelligible at times. Speaks in 1-2 word answers. Mood is "not good," and affect is restricted to anxious and distraught. Thoughts are disorganized, often answering with unrelated information, displays rhyming. + Paranoia, delusions, auditory hallucinations of a threatening nature. Denies SI and HI, but fears for her own safety and thinks she might because of the voices. Alert and oriented to self. Memory and attention are impaired. Insight and judgment are impaired. Vital Signs (Past 24 Hours) Last Vital Signs Temp 36.8 C 08/24/18 06:00 Pulse 103 H 08/24/18 06:00 Resp 20 08/24/18 06:00 BP 135/100 08/24/18 06:00 Pulse Ox 99 08/22/18 22:00 Results & Data Current Inpatient Medications Current Inpatient Medications: Current Inpatient Medications Acetaminophen (Tylenol) 650 mg PO Q4H PRN PRN Reason: Headache or Minor Fever Stop: 09/21/18 22:35 Al Hydrox/Mg Hydrox/Simethicone (Maalox) 30 ml PO Q4H PRN PRN Reason: GI Upset Stop: 09/21/18 22:35 Atorvastatin Calcium (Lipitor) 20 mg PO HS [facility] Stop: 09/22/18 21:59 Last Admin: 08/23/18 21:08 Dose: 20 mg Documented by: Bismuth Subsalicylate (Kaopectate) 15 ml PO PRN PRN PRN Reason: Loose Stool Stop: 09/21/18 22:35 Gabapentin (Neurontin) 100 mg PO TID [facility] Stop: 09/22/18 20:59 Last Admin: 08/24/18 07:43 Dose: 100 mg Documented by: Haloperidol (Haldol) 5 mg PO Q4H PRN PRN Reason: psychosis or agitation Stop: 09/23/18 08:19 Last Admin: 08/24/18 08:43 Dose: 5 mg Documented by: Haloperidol Lactate (Haldol) 5 mg IM Q4H PRN PRN Reason: psychosis or agitation Stop: 09/23/18 08:19 Hydroxyzine HCl (Vistaril) 50 mg PO HSZ PRN PRN Reason: Insomnia Stop: 09/21/18 22:35 Last Admin: 08/24/18 00:02 Dose: 50 mg Documented by: Hydroxyzine HCl (Vistaril) 25 mg PO Q4H PRN PRN Reason: Anxiety Stop: 09/21/18 22:35 Last Admin: 08/24/18 06:31 Dose: 25 mg Documented by: Hydroxyzine HCl (Vistaril) 50 mg PO HS [facility] Stop: 09/22/18 21:59 Last Admin: 08/23/18 21:07 Dose: 50 mg Documented by: Levothyroxine Sodium (Synthroid) 100 mcg PO TODAY@0700 [facility] Stop: 09/23/18 06:59 Last Admin: 08/24/18 06:31 Dose: 100 mcg Documented by: [place] Carbonate (Lithobid) 300 mg PO [facility] Stop: 09/22/18 21:59 Last Admin: 08/23/18 21:08 Dose: 300 mg Documented by: Lorazepam (Ativan) 1 mg PO Q4 PRN PRN Reason: psychosis or agitation Stop: 09/23/18 08:20 Last Admin: 08/24/18 08:43 Dose: 1 mg Documented by: Lorazepam (Ativan) 1 mg IM Q4H PRN PRN Reason: psychosis or agitation Stop: 09/23/18 08:20 Magnesium Hydroxide (Milk Of Magnesia) 30 ml PO DAILY PRN PRN Reason: Heartburn Stop: 09/21/18 22:35 Miscellaneous (Order Awaiting Action) 1 ea N/A QS [facility] Stop: 09/22/18 15:59 Last Admin: 08/24/18 01:40 Dose: Not Given Documented by: Propranolol HCl (Inderal) 10 mg PO BID [facility] Stop: 09/22/18 20:59 Last Admin: 08/24/18 07:43 Dose: 10 mg Documented by: Sodium Chloride ([place] Nasal) 1 - 2 sprays NA PRN PRN PRN Reason: Nasal Dryness/Congestion Stop: 09/21/18 22:35 Post Discharge Appointments Primary Care Physician Name Of Family Doctor: MARITZA Astorga Psychiatrist Date of Appointment with Psychiatrist: 12/20/18 Therapist Name of Therapist: denied wanting one. Numerologist Name of Numerologist: None CPT Code CPT Code 33793
[2018-08-24] MEDS: BENZTROPINE MESYLATE 1 MG TAB PO PRN (15:38)
[2018-08-24] MEDS: LURASIDONE HCL 20 MG PO SCH (19:18)
[2018-08-24] MEDS: ATORVASTATIN 20 MG TAB PO SCH (21:03)
[2018-08-24] MEDS: LITHIUM CARBONATE SLOW REL 300 MG TAB PO SCH (21:03)
[2018-08-25] MEDS: LEVOTHYROXINE SODIUM 100 MCG TABLET PO SCH (06:23)
[2018-08-25] MEDS: GABAPENTIN 100 MG CAP PO SCH ×3 (08:50→22:00)
[2018-08-25] MEDS: PROPRANOLOL HCL 10 MG TAB PO SCH ×2 (08:50→21:59)
--- NOTE | 2018-08-25 11:08 | Psychiatric Progress Note ---
Date of Service August 25, 2018 Impression / Recommendations Impression 58-year-old female with a history of bipolar disorder type I and multiple admissions for psychotic alison, who is admitted voluntarily after decompensating at home over the past couple of months, culminating in erratic and psychotic behavior, delusions of persecution, paranoia, and insomnia. She acknowledges that she stopped taking her psychiatric medication several months ago because she felt that she does not need them. She reiterates today that she does not feel that she has a mental illness, believes that the diagnosis of bipolar disorder is mistaken, and minimizes her rationalizes the behaviors that have been reported by her family. For example, she tells me that she is "just the kind of person who likes to get up early and clean the house." She denies not feeling safe at home, but acknowledges that she does not feel comfortable leaving the home, and then declines to say why other than she considers herself to be "a homebody." No fixed delusional believes were identified today and the patient's thought content. However, inexplicably, she told the family practice resident who was observing today that she would not be willing to come to the medical policy specialist's office to see me, looked suspiciously at the resident, and indicated that she would only come into the office Dr. Callahan came out and ask her to into the office. Also, her level of denial regarding her illness and circumstances approach the level of psychosis. She acknowledges that she has a history of multiple psychiatric hospitalizations. She acknowledges that her family is repeatedly concerned about her behaviors and her condition. She acknowledges that she is prescribed psychiatric medications, and she acknowledges that her history is that when she stopped taking her psychiatric medication she often ends up back in the hospital "sooner or later." Yet she tells me and insists that she does not have a psychiatric diagnosis and does not really have a problem. This dichotomy is not particularly unusual in persons who suffer from major medical illnesses with psychotic features, and the fact that she is at least able to recognize that there is a negative consequence associated with not taking her medicationsregardless of whether she believes she does or does not need them or whether she does or does not believe that she has a psychiatric diagnosis -does improve the likelihood of adherence with medi cations on an outpatient basis. She tells me that, in the past, she has taken Depo medications and believes that she may have taken either Invega Sustenna or haloperidol decanoate on an outpatient basis, but says that she simply declined to return to receive follow-up injections. Patient reports that she has a history of lithium toxicity, but acknowledges that lithium has been a medication that has been helpful to her in the pastalthough she cannot or will not say why. Today, I educated the patient regarding the signs and symptoms of lithium toxicity, and the patient asked several questions and indicated understanding. I advised the patient that in the future should she experience symptoms of lithium toxicity she should not take an additional dose and, instead, go promptly to an emergency room in order to be tested. I described the way that lithium toxicity is usually managed. The patient smiled and thanked me for the information. Currently, the patient's dose of lithium is 300 mg daily. The plan will be to increase her dose of lithium to 300 mg twice a day and we will check her lithium level on Tuesday. Based on my review of the record, it would seem that the patient is showing some improvement. She is somewhat irritable and suspicious, but is generally pleasant and willing to cooperate. I am not observing evidence of pressured speech or flight of ideas. I completed an abnormal involuntary movement scale examination today and noted findings that are minimal and that may be extreme normal. There is no evidence of these are causing incapacitation, the patient tells me that she has no awareness of any involuntary movements. (1) Bipolar 1 disorder: 08/23 - Continue home medications (as reported), and confirm with OP re cords from Dr. Chadwick. -Discontinue zolpidem and Restoril as ineffective for sleep. -Family meeting once able to tolerate -Groups once able to tolerate. -Fasting lipid profile and glucose performed 06/29/2018 for monitoring on an atypical antipsychotic: Cholesterol levels within normal, and glucose 113. Hemoglobin A1c was 5.6% on 05/23/2018. -Clarify whether patient has case management services, as she has been referred in the past. Recommend individual therapy, which historically she has declined. 08/24 - Clarified OP med list - Latuda is 20mg daily, will resume as soon as brings it in, and titrate to effective dose. -Haldol 5mg and lorazepam 1mg added for acute agitation/psychosis. Will also add benztropine 1mg prn EPS/dystonia. -Patient never followed up with therapy or case management in the past, and will need to revisit this with her once less symptomatic. -She has not yet been able to tolerate an AIMS assessment, as she has been unable to get out of bed and sit to participate in the interview, but this would be beneficial to get once she is able to participate. 08/25 -Latuda 20 mg daily was started yesterday. -AIMS completed today by Dr. Callahan. Findings are of minimal involuntary movements that may be extreme normal in a woman who is somewhat restless. -[place] carbonate will be increased from 300 mg a day to 300 mg twice a day and we will check her lithium level on 08/27/2018 and titrate further as indicated. -Patient educated regarding lithium toxicity (2) Hypothyroidism: 08/23 -continue home dose of levothyroxine. TSH normal at 0.380. (3) Hyperlipidemia: 08/23 - Continue home dose of atorvastatin Risk Factors Assessment Male: No : Yes Do You Have Access To A Gun?: Yes (Children found her at home with a gun prior to admission) Health Problems: Yes Mental Health Diagnoses: Yes Substance Use Disorders: No Previous Psychiatric Hospitalization: Yes Smoker: No Protective Factors Assessment : Yes Responsible for Young Children: No Employed: No (Unable to maintain employment dt paranoia) Supportive Family: Yes Interval History Chief Complaint "I don't know". Review of Systems Sleep Information Total Hours of Sleep: 6.75 Sleep Comments: Majority of sleep was on evening shift. Patient was singing and dancing frequently during the night. Meal Information Percent Meal Consumed - Breakfast: 0 Percent Meal Consumed - Lunch: 0 Percent Meal Consumed - Dinner: 95 Nutrition Comment: pt. ate breakfast mid-morning Subjective Subjective Patient was seen & assessed and interval progress reviewed with Treatment Team. Met with the patient individually in order to assess her current mental status examination, assess her response to treatment, coordinate any necessary changes in her treatment regimen with the patient, and address issues and concerns that may arise. Initially, the patient asserted that she has no idea why she is in the hospital. She acknowledges that her family brought her to the hospital and had concerns, but she does not believe that there is any particular problem. She also tells me that she does not carry a psychiatric diagnosis, and adds that she cannot explain why she has had a history of multiple previous psychiatric hospitalizations, nor can she explain why her family repeatedly expresses concerns about her. The patient continues to minimize and come for example, tells me that she has been sleeping "beautifully," and denies symptoms such as increased energy, although she does endorse some mood irritabilityher circumstance that she attributes to her circumstances (hospitalized and without the comforts of home). With time, the patient became less resistive and was able to connect her frequent hospitalizations with a similarly frequent habit of spontaneously and independently discontinued her psychiatric medications. She says that she last took psychiatric medications, as prescribed, approximately 2 months ago and she stopped "because [she] did not need them." Nevertheless, as noted above, the patient did say that she is willing to accept that stopping her medications typically will eventually lead to problems, such as a need for psychiatric hospitalization, and she agreed that she should continue to take the psychiatric medications, even if she does not feel that she needs them. She denies any thoughts of suicide or homicide, and tells me that she has never been suicidal, nor has she been homicidal. She does report that she sometimes gets into "fights" with her , but clarifies that she does not mean physical altercations but, instead, she is referring to arguments during which she acknowledges she sometimes raises her voice. Patient also reports that, in the past, she has had symptoms that included "talking too much and talking too fast," and increased energy with decreased sleep. Physical Exam Psychiatric Orientation: oriented x 3 Apperance: appropriately dressed and appropriately groomed Eye Contact: + poor eye contact Motor Behavior: + EPS Minimal abnormal involuntary movements on AIMS, completed today. No incapacitation No awareness. Speech: normal rate/rhythm/volume of speech; no pressured speech Affect: + irritable affect Mood: + irritable mood Thought Process: goal directed thought process; no flight of ideas Currently, there appears to be a level of denial that approaches psychosis. Suicidal Thoughts: denies suicidal thoughts Homicidal Thoughts: denies homicidal thoughts Hallucinations: + auditory hallucinations; no visual hallucinations Hard to assess because of limited cooperation regarding history. Suspicious of another physician on the unit and refused to come to the office to see Dr. Callahan unless he came and got her, personally. Estimated Intelligence: + estimated intelligence not average Insight: + poor insight Judgement: + poor judgement Vital Signs (Past 24 Hours) Last Vital Signs Temp 36.3 C L 08/25/18 06:00 Pulse 75 08/25/18 07:12 Resp 16 08/25/18 06:00 BP 145/95 H 08/25/18 07:12 Pulse Ox 99 08/22/18 22:00 Results & Data Current Inpatient Medications Current Inpatient Medications: Current Inpatient Medications Acetaminophen (Tylenol) 650 mg PO Q4H PRN PRN Reason: Headache or Minor Fever Stop: 09/21/18 22:35 Al Hydrox/Mg Hydrox/Simethicone (Maalox) 30 ml PO Q4H PRN PRN Reason: GI Upset Stop: 09/21/18 22:35 Atorvastatin Calcium (Lipitor) 20 mg PO HS DONNIE Stop: 09/22/18 21:59 Last Admin: 08/24/18 21:03 Dose: 20 mg Documented by: Benztropine Mesylate (Cogentin) 1 mg PO Q4 PRN PRN Reason: EPS Stop: 09/23/18 11:55 Last Admin: 08/24/18 15:38 Dose: 1 mg Documented by: Bismuth Subsalicylate (Kaopectate) 15 ml PO PRN PRN PRN Reason: Loose Stool Stop: 09/21/18 22:35 Gabapentin (Neurontin) 100 mg PO TID DONNIE Stop: 09/22/18 20:59 Last Admin: 08/25/18 08:50 Dose: 100 mg Documented by: Haloperidol (Haldol) 5 mg PO Q4H PRN PRN Reason: psychosis or agitation Stop: 09/23/18 08:19 Last Admin: 08/24/18 20:02 Dose: 5 mg Documented by: Haloperidol Lactate (Haldol) 5 mg IM Q4H PRN PRN Reason: psychosis or agitation Stop: 09/23/18 08:19 Hydroxyzine HCl (Vistaril) 50 mg PO HSZ PRN PRN Reason: Insomnia Stop: 09/21/18 22:35 Last Admin: 08/24/18 00:02 Dose: 50 mg Documented by: Hydroxyzine HCl (Vistaril) 25 mg PO Q4H PRN PRN Reason: Anxiety Stop: 09/21/18 22:35 Last Admin: 08/24/18 06:31 Dose: 25 mg Documented by: Hydroxyzine HCl (Vistaril) 50 mg PO HS DONNIE Stop: 09/22/18 21:59 Last Admin: 08/24/18 21:03 Dose: 50 mg Documented by: Levothyroxine Sodium (Synthroid) 100 mcg PO TODAY@0700 [facility] Stop: 09/23/18 06:59 Last Admin: 08/25/18 06:23 Dose: 100 mcg Documented by: [place] Carbonate (Lithobid) 300 mg PO [facility] Stop: 09/22/18 21:59 Last Admin: 08/24/18 21:03 Dose: 300 mg Documented by: Lorazepam (Ativan) 1 mg PO Q4 PRN PRN Reason: psychosis or agitation Stop: 09/23/18 08:20 Last Admin: 08/24/18 20:02 Dose: 1 mg Documented by: Lorazepam (Ativan) 1 mg IM Q4H PRN PRN Reason: psychosis or agitation Stop: 09/23/18 08:20 Lurasidone HCl (Latuda) 20 ea PO DAILY@1700 [facility] Stop: 09/24/18 16:59 Last Admin: 08/24/18 19:18 Dose: 20 ea Documented by: Magnesium Hydroxide (Milk Of Magnesia) 30 ml PO DAILY PRN PRN Reason: Heartburn Stop: 09/21/18 22:35 Propranolol HCl (Inderal) 10 mg PO BID [facility] Stop: 09/22/18 20:59 Last Admin: 08/25/18 08:50 Dose: 10 mg Documented by: Sodium Chloride ([place] Nasal) 1 - 2 sprays NA PRN PRN PRN Reason: Nasal Dryness/Congestion Stop: 09/21/18 22:35 Post Discharge Appointments Primary Care Physician Name Of Family Doctor: MARITZA Astorga Psychiatrist Date of Appointment with Psychiatrist: 12/20/18 Therapist Name of Therapist: denied wanting one. Biomedical Analytical Scientist Name of Biomedical Analytical Scientist: None CPT Code CPT Code 91043
[2018-08-25] MEDS: LORazepam 1 MG TAB PO PRN (13:23)
[2018-08-25] MEDS: HALOPERIDOL 5 MG TAB PO PRN (13:23)
[2018-08-25] MEDS: BENZTROPINE MESYLATE 1 MG TAB PO PRN (13:24)
[2018-08-25] MEDS: LURASIDONE HCL 20 MG PO SCH (17:20)
[2018-08-25] MEDS: LITHIUM CARBONATE SLOW REL 300 MG TAB PO SCH (21:59)
[2018-08-25] MEDS: ATORVASTATIN 20 MG TAB PO SCH (22:00)
[2018-08-26] MEDS: LEVOTHYROXINE SODIUM 100 MCG TABLET PO SCH (06:43)
[2018-08-26] MEDS: GABAPENTIN 100 MG CAP PO SCH ×3 (11:02→21:10)
[2018-08-26] MEDS: LITHIUM CARBONATE SLOW REL 300 MG TAB PO SCH ×2 (11:02→21:10)
[2018-08-26] MEDS: PROPRANOLOL HCL 10 MG TAB PO SCH ×2 (11:02→21:10)
--- NOTE | 2018-08-26 13:36 | Psychiatric Progress Note ---
Date of Service August 26, 2018 Impression / Recommendations Impression Pt appearing more calm and organized following good sleep. Insight remains very poor. (1) Bipolar 1 disorder: 08/23 - Continue home medications (as reported), and confirm with OP records from Dr. Chadwick. -Discontinue zolpidem and Restoril as ineffective for sleep. -Family meeting once able to tolerate -Groups once able to tolerate. -Fasting lipid profile and glucose performed 06/29/2018 for monitoring on an atypical antipsychotic: Cholesterol levels within normal, and glucose 113. Hemoglobin A1c was 5.6% on 05/23/2018. -Clarify whether patient has case management services, as she has been referred in the past. Recommend individual therapy, which historically she has declined. 08/24 - Clarified OP med list - Latuda is 20mg daily, will resume as soon as brings it in, and titrate to effective dose. -Haldol 5mg and lorazepam 1mg added for acute agitation/psychosis. Will also add benztropine 1mg prn EPS/dystonia. -Patient never followed up with therapy or case management in the past, and will need to revisit this with her once less symptomatic. -She has not yet been able to tolerate an AIMS assessment, as she has been unable to get out of bed and sit to participate in the interview, but this would be beneficial to get once she is able to participate. 08/25 -Latuda 20 mg daily was started yesterday. -AIMS completed today by Dr. Callahan. Findings are of minimal involuntary movements that may be extreme normal in a woman who is somewhat restless. -[place] carbonate will be increased from 300 mg a day to 300 mg twice a day and we will check her lithium level on 08/27/2018 and titrate further as indicated. -Patient educated regarding lithium toxicity 08/26 - tolerating increased lithium and latuda re-initiation. will advance latuda to 40mg daily to more her towards an effective mood stabilizing dose. - lithium level tomorrow AM (2) Hypothyroidism: 08/23 -continue home dose of levothyroxine. TSH normal at 0.380. (3) Hyperlipidemia: 08/23 - Continue home dose of atorvastatin Risk Factors Assessment Male: No : Yes Do You Have Access To A Gun?: Yes (Children found her at home with a gun prior to admission) Health Problems: Yes Mental Health Diagnoses: Yes Substance Use Disorders: No Previous Psychiatric Hospitalization: Yes Smoker: No Protective Factors Assessment : Yes Responsible for Young Children: No Employed: No (Unable to maintain employment dt paranoia) Supportive Family: Yes Interval History Chief Complaint "I was sleeping". Review of Systems Sleep Information Total Hours of Sleep: 9.5 Sleep Comments: pt appeared to be asleep @0130, the awake/asleep during the night. pt on q-15 minute checks Meal Information Percent Meal Consumed - Breakfast: 0 Percent Meal Consumed - Lunch: 100 Percent Meal Consumed - Dinner: 90 Nutrition Comment: pt. ate breakfast mid-morning Subjective Subjective Patient was seen & assessed and interval progress reviewed with treatment team. [place] has been increased during her hospital stay with pending level tomorrow. She has demonstrated behavioral dyscontrol on the unit but slept better last night and appears more calm this morning upon initial waking. She does not have insight regarding need for hospitalization. She seems to believe that she takes lithium for her thyroid. She describes her thoughts as slow. She requests that I read her a letter that her left her at bedside that was very encouraging and written kindly. She denied acute concerns, physical or emotional. She seemed eager to return to sleep. Physical Exam Psychiatric Orientation: + not oriented to place Apperance: + disheveled Eye Contact: + fair eye contact Motor Behavior: + EPS (mild tongue protrusion and lateral head/neck movements) Speech: no pressured speech Affect: euthymic affect (calm and pleasant) "good" Thought Process: + concrete thought process; + thought process not clear or coherent minimizing concerns Suicidal Thoughts: denies suicidal thoughts, denies suicidal plan and denies suicidal intent Homicidal Thoughts: denies homicidal thoughts Hallucinations: no auditory hallucinations (denies) Cognition: + recent memory not intact Insight: + poor insight Judgement: + poor judgement Vital Signs (Past 24 Hours) Last Vital Signs Temp 36.7 C 08/26/18 06:52 Pulse 75 08/26/18 06:53 Resp 18 08/26/18 06:52 BP 133/87 08/26/18 06:53 Pulse Ox 99 08/22/18 22:00 Results & Data Current Inpatient Medications Current Inpatient Medications: Current Inpatient Medications Acetaminophen (Tylenol) 650 mg PO Q4H PRN PRN Reason: Headache or Minor Fever Stop: 09/21/18 22:35 Al Hydrox/Mg Hydrox/Simethicone (Maalox) 30 ml PO Q4H PRN PRN Reason: GI Upset Stop: 09/21/18 22:35 Atorvastatin Calcium (Lipitor) 20 mg PO HS [facility] Stop: 09/22/18 21:59 Last Admin: 08/25/18 22:00 Dose: 20 mg Documented by: Benztropine Mesylate (Cogentin) 1 mg PO Q4 PRN PRN Reason: EPS Stop: 09/23/18 11:55 Last Admin: 08/25/18 13:24 Dose: 1 mg Documented by: Bismuth Subsalicylate (Kaopectate) 15 ml PO PRN PRN PRN Reason: Loose Stool Stop: 09/21/18 22:35 Gabapentin (Neurontin) 100 mg PO TID [facility] Stop: 09/22/18 20:59 Last Admin: 08/26/18 11:02 Dose: 100 mg Documented by: Haloperidol (Haldol) 5 mg PO Q4H PRN PRN Reason: psychosis or agitation Stop: 09/23/18 08:19 Last Admin: 08/25/18 13:23 Dose: 5 mg Documented by: Haloperidol Lactate (Haldol) 5 mg IM Q4H PRN PRN Reason: psychosis or agitation Stop: 09/23/18 08:19 Hydroxyzine HCl (Vistaril) 50 mg PO HSZ PRN PRN Reason: Insomnia Stop: 09/21/18 22:35 Last Admin: 08/24/18 00:02 Dose: 50 mg Documented by: Hydroxyzine HCl (Vistaril) 25 mg PO Q4H PRN PRN Reason: Anxiety Stop: 09/21/18 22:35 Last Admin: 08/25/18 16:32 Dose: 25 mg Documented by: Hydroxyzine HCl (Vistaril) 50 mg PO HS DONNIE Stop: 09/22/18 21:59 Last Admin: 08/25/18 22:00 Dose: 50 mg Documented by: Levothyroxine Sodium (Synthroid) 100 mcg PO TODAY@0700 [facility] Stop: 09/23/18 06:59 Last Admin: 08/26/18 06:43 Dose: 100 mcg Documented by: [place] Carbonate (Lithobid) 300 mg PO BID [facility] Stop: 09/24/18 20:59 Last Admin: 08/26/18 11:02 Dose: 300 mg Documented by: Lorazepam (Ativan) 1 mg PO Q4 PRN PRN Reason: psychosis or agitation Stop: 09/23/18 08:20 Last Admin: 08/25/18 13:23 Dose: 1 mg Documented by: Lorazepam (Ativan) 1 mg IM Q4H PRN PRN Reason: psychosis or agitation Stop: 09/23/18 08:20 Lurasidone HCl (Latuda) 20 ea PO DAILY@1700 [facility] Stop: 09/24/18 16:59 Last Admin: 08/25/18 17:20 Dose: 20 ea Documented by: Magnesium Hydroxide (Milk Of Magnesia) 30 ml PO DAILY PRN PRN Reason: Heartburn Stop: 09/21/18 22:35 Propranolol HCl (Inderal) 10 mg PO BID [facility] Stop: 09/22/18 20:59 Last Admin: 08/26/18 11:02 Dose: 10 mg Documented by: Sodium Chloride ([place] Nasal) 1 - 2 sprays NA PRN PRN PRN Reason: Nasal Dryness/Congestion Stop: 09/21/18 22:35 Post Discharge Appointments Primary Care Physician Name Of Family Doctor: MARITZA Astorga Psychiatrist Date of Appointment with Psychiatrist: 12/20/18 Therapist Name of Therapist: denied wanting one. Salesperson Neckties Name of Salesperson Neckties: None CPT Code CPT Code 43870
[2018-08-26] MEDS: LURASIDONE HCL PO SCH (17:40)
[2018-08-26] MEDS: ATORVASTATIN 20 MG TAB PO SCH (21:10)
[2018-08-27] MEDS: LEVOTHYROXINE SODIUM 100 MCG TABLET PO SCH (06:39)
[2018-08-27] MEDS: PROPRANOLOL HCL 10 MG TAB PO SCH ×2 (07:15→21:34)
[2018-08-27] MEDS: LITHIUM CARBONATE SLOW REL 300 MG TAB PO SCH ×2 (07:15→21:34)
[2018-08-27] MEDS: GABAPENTIN 100 MG CAP PO SCH ×3 (07:16→21:34)
--- NOTE | 2018-08-27 10:51 | Psychiatric Progress Note ---
Date of Service August 27, 2018 Impression / Recommendations Impression She continues to sleep better and demonstrating improving insight and behavioral control. Insight remains limited and she certainly requires continued psychiatric hospitalization for continued stabilization and would be at very high risk if discharged prematurely. (1) Bipolar 1 disorder: 08/23 - Continue home medications (as reported), and confirm with OP records from Dr. Chadwick. -Discontinue zolpidem and Restoril as ineffective for sleep. -Family meeting once able to tolerate -Groups once able to tolerate. -Fasting lipid profile and glucose performed 06/29/2018 for monitoring on an atypical antipsychotic: Cholesterol levels within normal, and glucose 113. Hemoglobin A1c was 5.6% on 05/23/2018. -Clarify whether patient has case management services, as she has been referred in the past. Recommend individual therapy, which historically she has declined. 08/24 - Clarified OP med list - Latuda is 20mg daily, will resume as soon as brings it in, and titrate to effective dose. -Haldol 5mg and lorazepam 1mg added for acute agitation/psychosis. Will also add benztropine 1mg prn EPS/dystonia. -Patient never followed up with therapy or case management in the past, and will need to revisit this with her once less symptomatic. -She has not yet been able to tolerate an AIMS assessment, as she has been unable to get out of bed and sit to participate in the interview, but this would be beneficial to get once she is able to participate. 08/25 -Latuda 20 mg daily was started yesterday. -AIMS completed today by Dr. Callahan. Findings are of minimal involuntary movements that may be extreme normal in a woman who is somewhat restless. -[place] carbonate will be increased from 300 mg a day to 300 mg twice a day and we will check her lithium level on 08/27/2018 and titrate further as indicated. -Patient educated regarding lithium toxicity 08/26 - tolerating increased lithium and latuda re-initiation. will advance latuda to 40mg daily to more her towards an effective mood stabilizing dose. - lithium level tomorrow AM 08/27 - Li now 0.7 - continue regimen as above (2) Hypothyroidism: 08/23 -continue home dose of levothyroxine. TSH normal at 0.380. (3) Hyperlipidemia: 08/23 - Continue home dose of atorvastatin Risk Factors Assessment Male: No : Yes Do You Have Access To A Gun?: Yes (Children found her at home with a gun prior to admission) Health Problems: Yes Mental Health Diagnoses: Yes Substance Use Disorders: No Previous Psychiatric Hospitalization: Yes Smoker: No Protective Factors Assessment : Yes Responsible for Young Children: No Employed: No (Unable to maintain employment dt paranoia) Supportive Family: Yes Interval History Chief Complaint "I'm happy". Review of Systems Sleep Information Total Hours of Sleep: 7.5 Sleep Comments: pt on q-15 minute checks Meal Information Percent Meal Consumed - Breakfast: 100 Percent Meal Consumed - Lunch: 100 Percent Meal Consumed - Dinner: 80 Nutrition Comment: pt. ate breakfast mid-morning Subjective Subjective Patient was seen & assessed and interval progress reviewed with treatment team. Patient has not been attending unit programming. She was visited by family yesterday who reportedly joined her in dancing and singing. Repeat lithium level now in therapeutic range at 0.7. She reportedly seems to be demonstrating improving insight and processing more logically. I find this to be true on my interview this morning. She now identifies having trouble with sleep as reason for hospitalization and she is aware that her sleep has improved. She also acknowledges "mood swings" but remains uncertain about the bipolar diagnosis. When queried about hallucinations she states "just a little bit." She describes hearing a voice from God and feeling touched by God which she describes as a tingling over her body. She reports this seems to be happening less frequently. Thoughts "a little fast." Denies safety concerns in the hospital. Denies any medical complaints today. Physical Exam Vital Signs (Past 24 Hours) Last Vital Signs Temp 36.7 C 08/27/18 06:42 Pulse 71 08/27/18 06:42 Resp 16 08/27/18 06:42 BP 131/92 08/27/18 06:42 Pulse Ox 99 08/22/18 22:00 Results & Data Laboratory Results Laboratory Results - last 24 hr 08/27/18 07:15 [place] 0.7 Current Inpatient Medications Current Inpatient Medications: Current Inpatient Medications Acetaminophen (Tylenol) 650 mg PO Q4H PRN PRN Reason: Headache or Minor Fever Stop: 09/21/18 22:35 Al Hydrox/Mg Hydrox/Simethicone (Maalox) 30 ml PO Q4H PRN PRN Reason: GI Upset Stop: 09/21/18 22:35 Atorvastatin Calcium (Lipitor) 20 mg PO HS DONNIE Stop: 09/22/18 21:59 Last Admin: 08/26/18 21:10 Dose: 20 mg Documented by: Benztropine Mesylate (Cogentin) 1 mg PO Q4 PRN PRN Reason: EPS Stop: 09/23/18 11:55 Last Admin: 08/25/18 13:24 Dose: 1 mg Documented by: Bismuth Subsalicylate (Kaopectate) 15 ml PO PRN PRN PRN Reason: Loose Stool Stop: 09/21/18 22:35 Gabapentin (Neurontin) 100 mg PO TID [facility] Stop: 09/22/18 20:59 Last Admin: 08/27/18 07:16 Dose: 100 mg Documented by: Haloperidol (Haldol) 5 mg PO Q4H PRN PRN Reason: psychosis or agitation Stop: 09/23/18 08:19 Last Admin: 08/25/18 13:23 Dose: 5 mg Documented by: Haloperidol Lactate (Haldol) 5 mg IM Q4H PRN PRN Reason: psychosis or agitation Stop: 09/23/18 08:19 Hydroxyzine HCl (Vistaril) 50 mg PO HSZ PRN PRN Reason: Insomnia Stop: 09/21/18 22:35 Last Admin: 08/24/18 00:02 Dose: 50 mg Documented by: Hydroxyzine HCl (Vistaril) 25 mg PO Q4H PRN PRN Reason: Anxiety Stop: 09/21/18 22:35 Last Admin: 08/25/18 16:32 Dose: 25 mg Documented by: Hydroxyzine HCl (Vistaril) 50 mg PO HS [facility] Stop: 09/22/18 21:59 Last Admin: 08/26/18 21:10 Dose: 50 mg Documented by: Levothyroxine Sodium (Synthroid) 100 mcg PO TODAY@0700 [facility] Stop: 09/23/18 06:59 Last Admin: 08/27/18 06:39 Dose: 100 mcg Documented by: [place] Carbonate (Lithobid) 300 mg PO BID [facility] Stop: 09/24/18 20:59 Last Admin: 08/27/18 07:15 Dose: 300 mg Documented by: Lorazepam (Ativan) 1 mg PO Q4 PRN PRN Reason: psychosis or agitation Stop: 09/23/18 08:20 Last Admin: 08/25/18 13:23 Dose: 1 mg Documented by: Lorazepam (Ativan) 1 mg IM Q4H PRN PRN Reason: psychosis or agitation Stop: 09/23/18 08:20 Lurasidone HCl (Latuda) 40 ea PO DAILY@1700 [facility] Stop: 09/25/18 16:59 Last Admin: 08/26/18 17:40 Dose: 40 ea Documented by: Magnesium Hydroxide (Milk Of Magnesia) 30 ml PO DAILY PRN PRN Reason: Heartburn Stop: 09/21/18 22:35 Propranolol HCl (Inderal) 10 mg PO BID [facility] Stop: 09/22/18 20:59 Last Admin: 08/27/18 07:15 Dose: 10 mg Documented by: Sodium Chloride ([place] Nasal) 1 - 2 sprays NA PRN PRN PRN Reason: Nasal Dryness/Congestion Stop: 09/21/18 22:35 Post Discharge Appointments Primary Care Physician Name Of Family Doctor: MARITZA Astorga Psychiatrist Date of Appointment with Psychiatrist: 12/20/18 Therapist Name of Therapist: denied wanting one. Paper Twister Tender Name of Paper Twister Tender: None CPT Code CPT Code 54234
[2018-08-27] MEDS: LURASIDONE HCL PO SCH (17:36)
[2018-08-27] MEDS: ATORVASTATIN 20 MG TAB PO SCH (21:34)
[2018-08-28] MEDS: LEVOTHYROXINE SODIUM 100 MCG TABLET PO SCH (06:44)
[2018-08-28] MEDS: GABAPENTIN 100 MG CAP PO SCH ×3 (07:40→20:57)
[2018-08-28] MEDS: LORazepam 1 MG TAB PO PRN (07:40)
[2018-08-28] MEDS: PROPRANOLOL HCL 10 MG TAB PO SCH ×2 (07:40→20:57)
[2018-08-28] MEDS: LITHIUM CARBONATE SLOW REL 300 MG TAB PO SCH ×2 (07:40→20:57)
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
[2018-08-28] MEDS: LURASIDONE HCL PO SCH (17:37)
[2018-08-28] MEDS: ATORVASTATIN 20 MG TAB PO SCH (20:58)
[2018-08-29] MEDS: LEVOTHYROXINE SODIUM 100 MCG TABLET PO SCH (06:34)
[2018-08-29] MEDS: PROPRANOLOL HCL 10 MG TAB PO SCH ×2 (07:50→21:19)
[2018-08-29] MEDS: LITHIUM CARBONATE SLOW REL 300 MG TAB PO SCH ×2 (07:50→21:20)
[2018-08-29] MEDS: GABAPENTIN 100 MG CAP PO SCH ×3 (07:51→21:19)
--- NOTE | 2018-08-29 10:34 | Psychiatric Progress Note ---
Date of Service August 29, 2018 Impression / Recommendations Impression In good behavioral control and denying symptoms, but concern remains that she is manic and denying the severity of her episode. Last lithium level was 0.7 on 08/27 and so will increase to 300/600 mg to target higher lithium level (1) Bipolar 1 disorder: 08/23 - Continue home medications (as reported), and confirm with OP records from Dr. Chadwick. -Discontinue zolpidem and Restoril as ineffective for sleep. -Family meeting once able to tolerate -Groups once able to tolerate. -Fasting lipid profile and glucose performed 06/29/2018 for monitoring on an atypical antipsychotic: Cholesterol levels within normal, and glucose 113. Hemoglobin A1c was 5.6% on 05/23/2018. -Clarify whether patient has case management services, as she has been referred in the past. Recommend individual therapy, which historically she has declined. 08/24 - Clarified OP med list - Latuda is 20mg daily, will resume as soon as brings it in, and titrate to effective dose. -Haldol 5mg and lorazepam 1mg added for acute agitation/psychosis. Will also add benztropine 1mg prn EPS/dystonia. -Patient never followed up with therapy or case management in the past, and will need to revisit this with her once less symptomatic. -She has not yet been able to tolerate an AIMS assessment, as she has been unable to get out of bed and sit to participate in the interview, but this would be beneficial to get once she is able to participate. 08/25 -Latuda 20 mg daily was started yesterday. -AIMS completed today by Dr. Callahan. Findings are of minimal involuntary movements that may be extreme normal in a woman who is somewhat restless. -[place] carbonate will be increased from 300 mg a day to 300 mg twice a day and we will check her lithium level on 08/27/2018 and titrate further as indicated. -Patient educated regarding lithium toxicity 08/26 - tolerating increased lithium and latuda re-initiation. will advance latuda to 40mg daily to more her towards an effective mood stabilizing dose. - lithium level tomorrow AM 08/27 - Li now 0.7 - continue regimen as above 08/28 -patient improving; continue current regimen. Arrange family meeting with and adult children. Referring for outpatient therapy and case management. 08/29 - Increase lithium to 300/600 mg daily (2) Hypothyroidism: 08/23 -continue home dose of levothyroxine. TSH normal at 0.380. (3) Hyperlipidemia: 08/23 - Continue home dose of atorvastatin Risk Factors Assessment Male: No : Yes Do You Have Access To A Gun?: Yes (Children found her at home with a gun prior to admission) Health Problems: Yes Mental Health Diagnoses: Yes Substance Use Disorders: No Previous Psychiatric Hospitalization: Yes Smoker: No Protective Factors Assessment : Yes Responsible for Young Children: No Employed: No (Unable to maintain employment dt paranoia) Supportive Family: Yes Interval History Identifying Information 58 yo female admitted voluntarily in a manic episode. Chief Complaint "I'm wonderful!". Review of Systems Sleep Information Total Hours of Sleep: 7 Sleep Comments: pt awoke x1 and screamed briefly when staff doing checks on the hour. Stated she saw a man(counselor) looked in her room with a flashlight. pt did not recognized,but said ,"ok" when told staff checks on everyone. pt on q- 15 minute checks Meal Information Percent Meal Consumed - Breakfast: 100 Percent Meal Consumed - Lunch: 100 Percent Meal Consumed - Dinner: 100 Nutrition Comment: pt. ate breakfast mid-morning Subjective Subjective Patient was seen & assessed and interval progress reviewed with Treatment Team. The patient uses superlatives to describe everything, saying that her mood is a "10 plus", that her energy is "great". She denies that her thoughts are racing and says that she is not manic. She denies aud/vis hallucinations or thought distortions of any kind. She denies side effects to meds of any kind including restlessness, muscle problems or constipation. She has no needs today and offers no physical complaints. Nursing reports that she has been attending groups, has been in good behavioral control. Taniya told staff last evening that she generally doesn't remember what happens when she is in a manic episode. Physical Exam Psychiatric Orientation: alert and cooperative Apperance: appropriately dressed and appropriately groomed Motor Behavior: steady gait and station moves laterally back and forth in her chair Speech: normal rate/rhythm/volume of speech Affect: euthymic affect Mood: no depressed mood and no anxious mood Thought Process: goal directed thought process Thought Content: reality based without delusions Suicidal Thoughts: denies suicidal thoughts Homicidal Thoughts: denies homicidal thoughts Hallucinations: no auditory hallucinations and no visual hallucinations Cognition: attention grossly intact and language grossly intact Estimated Intelligence: consistent with education level Insight: + limited insight Judgement: + limited judgement Vital Signs (Past 24 Hours) Last Vital Signs Temp 36.8 C 08/29/18 07:45 Pulse 60 08/29/18 07:45 Resp 18 08/29/18 07:45 BP 125/83 08/29/18 07:45 Pulse Ox 99 08/22/18 22:00 Results & Data Current Inpatient Medications Current Inpatient Medications: Current Inpatient Medications Acetaminophen (Tylenol) 650 mg PO Q4H PRN PRN Reason: Headache or Minor Fever Stop: 09/21/18 22:35 Al Hydrox/Mg Hydrox/Simethicone (Maalox) 30 ml PO Q4H PRN PRN Reason: GI Upset Stop: 09/21/18 22:35 Atorvastatin Calcium (Lipitor) 20 mg PO HS [facility] Stop: 09/22/18 21:59 Last Admin: 08/28/18 20:58 Dose: 20 mg Documented by: Benztropine Mesylate (Cogentin) 1 mg PO Q4 PRN PRN Reason: EPS Stop: 09/23/18 11:55 Last Admin: 08/25/18 13:24 Dose: 1 mg Documented by: Bismuth Subsalicylate (Kaopectate) 15 ml PO PRN PRN PRN Reason: Loose Stool Stop: 09/21/18 22:35 Gabapentin (Neurontin) 100 mg PO TID [facility] Stop: 09/22/18 20:59 Last Admin: 08/29/18 07:51 Dose: 100 mg Documented by: Haloperidol (Haldol) 5 mg PO Q4H PRN PRN Reason: psychosis or agitation Stop: 09/23/18 08:19 Last Admin: 08/25/18 13:23 Dose: 5 mg Documented by: Haloperidol Lactate (Haldol) 5 mg IM Q4H PRN PRN Reason: psychosis or agitation Stop: 09/23/18 08:19 Hydroxyzine HCl (Vistaril) 50 mg PO HSZ PRN PRN Reason: Insomnia Stop: 09/21/18 22:35 Last Admin: 08/24/18 00:02 Dose: 50 mg Documented by: Hydroxyzine HCl (Vistaril) 25 mg PO Q4H PRN PRN Reason: Anxiety Stop: 09/21/18 22:35 Last Admin: 08/25/18 16:32 Dose: 25 mg Documented by: Hydroxyzine HCl (Vistaril) 50 mg PO HS [facility] Stop: 09/22/18 21:59 Last Admin: 08/28/18 20:58 Dose: 50 mg Documented by: Levothyroxine Sodium (Synthroid) 100 mcg PO TODAY@0700 [facility] Stop: 09/23/18 06:59 Last Admin: 08/29/18 06:34 Dose: 100 mcg Documented by: [place] Carbonate (Lithobid) 300 mg PO BID [facility] Stop: 09/24/18 20:59 Last Admin: 08/29/18 07:50 Dose: 300 mg Documented by: Lorazepam (Ativan) 1 mg PO Q4 PRN PRN Reason: psychosis or agitation Stop: 09/23/18 08:20 Last Admin: 08/28/18 07:40 Dose: 1 mg Documented by: Lorazepam (Ativan) 1 mg IM Q4H PRN PRN Reason: psychosis or agitation Stop: 09/23/18 08:20 Lurasidone HCl (Latuda) 40 ea PO DAILY@1700 [facility] Stop: 09/25/18 16:59 Last Admin: 08/28/18 17:37 Dose: 40 ea Documented by: Magnesium Hydroxide (Milk Of Magnesia) 30 ml PO DAILY PRN PRN Reason: Heartburn Stop: 09/21/18 22:35 Propranolol HCl (Inderal) 10 mg PO BID [facility] Stop: 09/22/18 20:59 Last Admin: 08/29/18 07:50 Dose: 10 mg Documented by: Sodium Chloride ([place] Nasal) 1 - 2 sprays NA PRN PRN PRN Reason: Nasal Dryness/Congestion Stop: 09/21/18 22:35 Post Discharge Appointments Primary Care Physician Name Of Family Doctor: MARITZA Astorga Psychiatrist Date of Appointment with Psychiatrist: 12/20/18 Therapist Name of Therapist: denied wanting one. Cyberathlete Name of Cyberathlete: None CPT Code CPT Code 31534
[2018-08-29] MEDS: LURASIDONE HCL PO SCH (17:39)
[2018-08-29] MEDS: ATORVASTATIN 20 MG TAB PO SCH (21:19)
[2018-08-30] MEDS: LEVOTHYROXINE SODIUM 100 MCG TABLET PO SCH (06:21)
[2018-08-30] MEDS: PROPRANOLOL HCL 10 MG TAB PO SCH ×2 (08:58→21:06)
[2018-08-30] MEDS: GABAPENTIN 100 MG CAP PO SCH ×3 (08:59→21:06)
[2018-08-30] MEDS: LITHIUM CARBONATE SLOW REL 300 MG TAB PO SCH ×2 (08:59→21:06)
--- NOTE | 2018-08-30 09:18 | Psychiatric Progress Note ---
Date of Service August 30, 2018 Impression / Recommendations Impression Pt has remained in good behavioral control, to admits to some concerns with particular staff members. She continues to be somewhat paranoid, but reports better tolerance of what she feels are "unusual" behaviors. We will continue on current medications, as lithium was just increased yesterday. We discussed current status of her private room. Patient initially reported preference for no roommate, but was able to understand the importance of the step in the discharge process. The patient reports to this provider that she feels she would be able to maintain the safety of her roommate, and agrees to communicate any concerns with staff. Patient agrees with discontinuation of her medically necessary private room. Patient continues to be hopeful for discharge, though it is unclear at this time how close her current condition is to baseline. She is scheduled for a family meeting tomorrow with her and adult children and we hope to gather additional information from them at that time. She shon nues to be somewhat paranoid and risk of impulsive behaviors, though reduced on admission, remains elevated. Patient requires ongoing inpatient mental health treatment until we are able to establish proximity to baseline. (1) Bipolar 1 disorder: 08/23 - Continue home medications (as reported), and confirm with OP records from Dr. Chadwick. -Discontinue zolpidem and Restoril as ineffective for sleep. -Family meeting once able to tolerate -Groups once able to tolerate. -Fasting lipid profile and glucose performed 06/29/2018 for monitoring on an atypical antipsychotic: Cholesterol levels within normal, and glucose 113. Hemoglobin A1c was 5.6% on 05/23/2018. -Clarify whether patient has case management services, as she has been referred in the past. Recommend individual therapy, which historically she has declined. 08/24 - Clarified OP med list - Latuda is 20mg daily, will resume as soon as brings it in, and titrate to effective dose. -Haldol 5mg and lorazepam 1mg added for acute agitation/psychosis. Will also add benztropine 1mg prn EPS/dystonia. -Patient never followed up with therapy or case management in the past, and will need to revisit this with her once less symptomatic. -She has not yet been able to tolerate an AIMS assessment, as she has been unable to get out of bed and sit to participate in the interview, but this would be beneficial to get once she is able to participate. 08/25 -Latuda 20 mg daily was started yesterday. -AIMS completed today by Dr. Callahan. Findings are of minimal involuntary movements that may be extreme normal in a woman who is somewhat restless. -[place] carbonate will be increased from 300 mg a day to 300 mg twice a day and we will check her lithium level on 08/27/2018 and titrate further as indicated. -Patient educated regarding lithium toxicity 08/26 - tolerating increased lithium and latuda re-initiation. will advance latuda to 40mg daily to more her towards an effective mood stabilizing dose. - lithium level tomorrow AM 08/27 - Li now 0.7 - continue regimen as above 08/28 -patient improving; continue current regimen. Arrange family meeting with and adult children. Referring for outpatient therapy and case management. 08/29 - Increase lithium to 300/600 mg daily 08/30 - Continue current lithium dosage - will need level re-checked or lab slip provided - 09/03 - Re-evaluated need for MNPR; reports ability to maintain behavioral control and tolerate a roommate as discharge preparation - Will discontinue MNPR - Family meeting with and children tomorrow (2) Hypothyroidism: 08/23 -continue home dose of levothyroxine. TSH normal at 0.380. (3) Hyperlipidemia: 08/23 - Continue home dose of atorvastatin Risk Factors Assessment Male: No : Yes Do You Have Access To A Gun?: Yes (Children found her at home with a gun prior to admission) Health Problems: Yes Mental Health Diagnoses: Yes Substance Use Disorders: No Previous Psychiatric Hospitalization: Yes Smoker: No Protective Factors Assessment : Yes Responsible for Young Children: No Employed: No (Unable to maintain employment dt paranoia) Supportive Family: Yes Interval History Identifying Information ALVARO FRAIRE is a 58-year-old F who currently lives in [place] with her , has a history of , and was admitted on 08/22/18 22:36 on a 201 voluntary commitment for psychotic alison. Chief Complaint "Really good. I'm like a 12, 10+". Review of Systems Notes Constitutional: reports feeling "cold" Cardiovascular: denied Respiratory: denied Gastrointestinal: denied Neurological: denied Psychiatric: denies symptoms other than stated above Total of at least 10 systems reviewed, pertinent positives as above and in HPI. Sleep Information Total Hours of Sleep: 5.75 Sleep Comments: pt awoke x1 and screamed briefly when staff doing checks on the hour. Stated she saw a man(counselor) looked in her room with a flashlight. pt did not recognized,but said ,"ok" when told staff checks on everyone. pt on q- 15 minute checks Meal Information Percent Meal Consumed - Breakfast: 100 Percent Meal Consumed - Lunch: 85 Percent Meal Consumed - Dinner: 100 Nutrition Comment: pt. ate breakfast mid-morning Subjective Subjective Patient was seen & assessed and interval progress reviewed with Treatment Team. Staff report the patient continues to be somewhat paranoid, actually hiding in the bathroom last evening to avoid a particular staff member. Some hyperactive behavior was noticed last night, as patient has continued to perform cleaning behaviors on the unit. Patient is seen today to assess progress since admission. She states she is "doing really good." Patient admits to imp rovement while here on the unit, but is unable to report specific advancements in her condition. She states "things are better overall." The patient admits to feeling safe on the unit and reports an ongoing desire for discharge. We discussed staff reports regarding paranoia last evening. The patient does admit to concern with the particular staff member, as he "wears tennis shoes, he put his foot up to tie his shoes, I thought that was weird." We further discussed patient's concerns with this behavior, as she states she was confused and felt unsafebut unable to verbalize what about this behavior was concerning for her. She states "it is just odd to me that someone who works here would do that." Patient was unable to further verbalize what her thoughts were at that time and what leads to her ongoing concern. Patient states she has had similar confusion with behavior of some patients, "but I have learned to just watch, if you watch for a while you feel more comfortable." Patient denies any current safety concerns with regard to her interactions with peers and staff. She denies any suicidal thoughts, and personally feel she is ready for discharge. Patient is aware of a family meeting scheduled for tomorrow, and states she has no anxiety or concerns to discuss. Patient denies other needs today. Physical Exam Psychiatric Orientation: alert, oriented x 3 and cooperative Apperance: appropriately dressed, appropriately groomed and appeared stated age Eye Contact: good eye contact and + poor eye contact Motor Behavior: steady gait and station and + EPS (ongoing lateral head/neck movements - states she is "cold") Speech: normal rate/rhythm/volume of speech Affect: euthymic affect Mood: no depressed mood, no anxious mood and no irritable mood "I'm great, I'd say a 12" Thought Process: goal directed thought process and + concrete thought process; + thought process not clear or coherent and no flight of ideas Thought Content: + paranoid (ongoing concerns about a specific staff member) and reality based without delusions Suicidal Thoughts: denies suicidal thoughts, denies suicidal plan and denies suicidal intent Homicidal Thoughts: denies homicidal thoughts Hallucinations: no auditory hallucinations and no visual hallucinations Cognition: attention grossly intact and language grossly intact Estimated Intelligence: consistent with education level Insight: + limited insight Judgement: + limited judgement Vital Signs (Past 24 Hours) Last Vital Signs Temp 36.8 C 08/30/18 06:39 Pulse 64 08/30/18 06:42 Resp 20 08/30/18 06:39 BP 143/83 H 08/30/18 06:42 Pulse Ox 99 08/22/18 22:00 Results & Data Current Inpatient Medications Current Inpatient Medications: Current Inpatient Medications Acetaminophen (Tylenol) 650 mg PO Q4H PRN PRN Reason: Headache or Minor Fever Stop: 09/21/18 22:35 Al Hydrox/Mg Hydrox/Simethicone (Maalox) 30 ml PO Q4H PRN PRN Reason: GI Upset Stop: 09/21/18 22:35 Atorvastatin Calcium (Lipitor) 20 mg PO HS DONNIE Stop: 09/22/18 21:59 Last Admin: 08/29/18 21:19 Dose: 20 mg Documented by: Benztropine Mesylate (Cogentin) 1 mg PO Q4 PRN PRN Reason: EPS Stop: 09/23/18 11:55 Last Admin: 08/25/18 13:24 Dose: 1 mg Documented by: Bismuth Subsalicylate (Kaopectate) 15 ml PO PRN PRN PRN Reason: Loose Stool Stop: 09/21/18 22:35 Gabapentin (Neurontin) 100 mg PO TID DONNIE Stop: 09/22/18 20:59 Last Admin: 08/30/18 08:59 Dose: 100 mg Documented by: Haloperidol (Haldol) 5 mg PO Q4H PRN PRN Reason: psychosis or agitation Stop: 09/23/18 08:19 Last Admin: 08/25/18 13:23 Dose: 5 mg Documented by: Haloperidol Lactate (Haldol) 5 mg IM Q4H PRN PRN Reason: psychosis or agitation Stop: 09/23/18 08:19 Hydroxyzine HCl (Vistaril) 50 mg PO HSZ PRN PRN Reason: Insomnia Stop: 09/21/18 22:35 Last Admin: 08/24/18 00:02 Dose: 50 mg Documented by: Hydroxyzine HCl (Vistaril) 25 mg PO Q4H PRN PRN Reason: Anxiety Stop: 09/21/18 22:35 Last Admin: 08/25/18 16:32 Dose: 25 mg Documented by: Hydroxyzine HCl (Vistaril) 50 mg PO HS [facility] Stop: 09/22/18 21:59 Last Admin: 08/29/18 21:21 Dose: 50 mg Documented by: Levothyroxine Sodium (Synthroid) 100 mcg PO TODAY@0700 [facility] Stop: 09/23/18 06:59 Last Admin: 08/30/18 06:21 Dose: 100 mcg Documented by: [place] Carbonate (Lithobid) [facility] Stop: 09/29/18 08:59 Last Admin: 08/30/18 08:59 Dose: 300 mg Documented by: [place] Carbonate (Lithobid) 600 mg PO [facility] Stop: 09/28/18 21:59 Last Admin: 08/29/18 21:20 Dose: 600 mg Documented by: Lorazepam (Ativan) 1 mg PO Q4 PRN PRN Reason: psychosis or agitation Stop: 09/23/18 08:20 Last Admin: 08/28/18 07:40 Dose: 1 mg Documented by: Lorazepam (Ativan) 1 mg IM Q4H PRN PRN Reason: psychosis or agitation Stop: 09/23/18 08:20 Lurasidone HCl (Latuda) 40 ea PO DAILY@1700 [facility] Stop: 09/25/18 16:59 Last Admin: 08/29/18 17:39 Dose: 40 ea Documented by: Magnesium Hydroxide (Milk Of Magnesia) 30 ml PO DAILY PRN PRN Reason: Heartburn Stop: 09/21/18 22:35 Propranolol HCl (Inderal) 10 mg PO BID [facility] Stop: 09/22/18 20:59 Last Admin: 08/30/18 08:58 Dose: 10 mg Documented by: Sodium Chloride ([place] Nasal) 1 - 2 sprays NA PRN PRN PRN Reason: Nasal Dryness/Congestion Stop: 09/21/18 22:35 Post Discharge Appointments Primary Care Physician Name Of Family Doctor: MARITZA Astorga Psychiatrist Date of Appointment with Psychiatrist: 12/20/18 Therapist Name of Therapist: denied wanting one. Precision Instrument Maker Name of Precision Instrument Maker: None CPT Code CPT Code 79165
[2018-08-30] MEDS: LURASIDONE HCL PO SCH (18:46)
[2018-08-30] MEDS: ATORVASTATIN 20 MG TAB PO SCH (21:06)
[2018-08-31] MEDS: LEVOTHYROXINE SODIUM 100 MCG TABLET PO SCH (06:51)
[2018-08-31] MEDS: PROPRANOLOL HCL 10 MG TAB PO SCH ×2 (08:52→21:11)
[2018-08-31] MEDS: LITHIUM CARBONATE SLOW REL 300 MG TAB PO SCH ×2 (08:53→21:11)
[2018-08-31] MEDS: GABAPENTIN 100 MG CAP PO SCH ×3 (08:53→21:11)
--- NOTE | 2018-08-31 10:49 | Psychiatric Progress Note ---
Date of Service August 31, 2018 Impression / Recommendations Impression Paranoia is improving, better behavioral control, but alison continues, with elevated mood, excessive energy, and decreased sleep. Patient has limited insight into the concerns about her alison, is refusing sleep medication, and stating she will sleep fine when she gets home. [place] was increased on 08/29/2018 to target this, and she will need a level on or after 09/03/2018. She has a family meeting today with her and adult children and we hope to gather additional information from them at that time as well as work on a relapse prevention plan. Inpatient treatment remains medically necessary due to the severity of her symptoms and risk for rapid decompensation and inability to provide for her own basic needs if discharged prematurely. (1) Bipolar 1 disorder: 08/23 - Continue home medications (as reported), and confirm with OP records from Dr. Chadwick. -Discontinue zolpidem and Restoril as ineffective for sleep. -Family meeting once able to tolerate -Groups once able to tolerate. -Fasting lipid profile and glucose performed 06/29/2018 for monitoring on an atypical antipsychotic: Cholesterol levels within normal, and glucose 113. Hemoglobin A1c was 5.6% on 05/23/2018. -Clarify whether patient has case management services, as she has been referred in the past. Recommend individual therapy, which historically she has declined. 08/24 - Clarified OP med list - Latuda is 20mg daily, will resume as soon as brings it in, and titrate to effective dose. -Haldol 5mg and lorazepam 1mg added for acute agitation/psychosis. Will also add benztropine 1mg prn EPS/dystonia. -Patient never followed up with therapy or case management in the past, and will need to revisit this with her once less symptomatic. -She has not yet been able to tolerate an AIMS assessment, as she has been unable to get out of bed and sit to participate in the interview, but this would be beneficial to get once she is able to participate. 08/25 -Latuda 20 mg daily was started yesterday. -AIMS completed today by Dr. Callahan. Findings are of minimal involuntary movements that may be extreme normal in a woman who is somewhat restless. -[place] carbonate will be increased from 300 mg a day to 300 mg twice a day and we will check her lithium level on 08/27/2018 and titrate further as indicated. -Patient educated regarding lithium toxicity 08/26 - tolerating increased lithium and latuda re-initiation. will advance latuda to 40mg daily to more her towards an effective mood stabilizing dose. - lithium level tomorrow AM 08/27 - Li now 0.7 - continue regimen as above 08/28 -patient improving; continue current regimen. Arrange family meeting with and adult children. Referring for outpatient therapy and case management. 08/29 - Increase lithium to 300/600 mg daily 08/30 - Continue current lithium dosage - will need level re-checked or lab slip provided - 09/03 - Re-evaluated need for MNPR; reports ability to maintain behavioral control and tolerate a roommate as discharge preparation - Will discontinue MNPR - Family meeting with and children tomorrow 08/31 -Continue lithium. Encourage use of as needed medication for sleep, which she has been declining. -Family meeting today. (2) Hypothyroidism: 08/23 -continue home dose of levothyroxine. TSH normal at 0.380. (3) Hyperlipidemia: 08/23 - Continue home dose of atorvastatin Risk Factors Assessment Male: No : Yes Do You Have Access To A Gun?: Yes (Children found her at home with a gun prior to admission) Health Problems: Yes Mental Health Diagnoses: Yes Substance Use Disorders: No Previous Psychiatric Hospitalization: Yes Smoker: No Protective Factors Assessment : Yes Responsible for Young Children: No Employed: No (Unable to maintain employment dt paranoia) Supportive Family: Yes Interval History Identifying Information ALVARO FRAIRE is a 58-year-old F who currently lives in [place] with her , has a history of bipolar disorder type I, and was admitted on 08/22/18 22:36 on a 201 voluntary commitment for psychotic alison. Chief Complaint "Okay". Review of Systems Sleep Information Total Hours of Sleep: 2.5 Sleep Comments: pt slept poorly this night-slept some on the 07/24 shift then slept between 5410-1124. states she feels happy and has energy but does not feel she has alison. through the night she ate, drank water, paced in the hallways, straightned up kitchen chairs and counter tops. Meal Information Percent Meal Consumed - Breakfast: 100 Percent Meal Consumed - Lunch: 100 Percent Meal Consumed - Dinner: 0 Nutrition Comment: pt. ate breakfast mid-morning Subjective Subjective Patient was seen & assessed and interval progress reviewed with Nursing and social work. Staff report she has been pleasant and cooperative with staff, was able to attend and participate in groups, and is reporting mood is greater than 10/10. She is reporting excessive energy, and has been cleaning on the unit. She has been more appropriate in her interactions with others, but told staff she still feels paranoid of staff or peers at times. She slept in the afternoon, then had a good visit with her and son, and only slept 2.5 hours last night. She was up on the unit overnight, cleaning up the day and kitchen areas, and walking laps. She got up again later in the night to have a snack, and declined staff offers of sleep medication. On my assessment, the patient reports mood is "really good" and she continues to have "lots of energy," and thoughts are clearer than on admission. She is dismissive on concerns that she is still having manic symptoms, stating she'll sleep fine when she gets home. She does not want to take sleep medications due to unusual behavior when taking Ambien prior to admission (said mean things to while on it). Paranoia is improved, and she feels safe here. She denies thoughts of harming herself or others. She denies side effects to medication, and says the lithium has been helpful. She reports relationships strain with at times, as he says things to her that are upsetting, like calling her fat, and then says he was joking. She says they are both "set in our ways" which can cause disagreements. She isn't sure what she wants to talk about in the family meeting. Summary of Past History Form Letter from [facility] received and reviewed (no actual records received): Diagnoses: schizoaffective disorder, unspecified; Panic disorder without agoraphobia; insomnia, drug induced tardive dyskinesia. Med list: lurasidone 20mg daily propranolol 10mg bid lithium ER 300mg daily gabapentin 100mg tid hydroxyzine 50mg HS temazepam 15mg HS lorazepam 0.5mg tid Physical Exam Psychiatric Orientation: alert and cooperative Apperance: appropriately dressed and appropriately groomed Eye Contact: good eye contact Motor Behavior: steady gait and station Mouth and tongue movements Speech: normal rate/rhythm/volume of speech Affect: euthymic affect Mood: no depressed mood and no anxious mood Thought Process: goal directed thought process Thought Content: reality based without delusions Suicidal Thoughts: denies suicidal thoughts Homicidal Thoughts: denies homicidal thoughts Hallucinations: no auditory hallucinations Cognition: attention grossly intact and language grossly intact Insight: + impaired insight Judgement: + impaired judgement Vital Signs (Past 24 Hours) Last Vital Signs Temp 36.9 C 08/31/18 08:15 Pulse 85 08/31/18 08:15 Resp 16 08/31/18 08:15 BP 121/75 08/31/18 08:15 Pulse Ox 99 08/22/18 22:00 Results & Data Current Inpatient Medications Current Inpatient Medications: Current Inpatient Medications Acetaminophen (Tylenol) 650 mg PO Q4H PRN PRN Reason: Headache or Minor Fever Stop: 09/21/18 22:35 Al Hydrox/Mg Hydrox/Simethicone (Maalox) 30 ml PO Q4H PRN PRN Reason: GI Upset Stop: 09/21/18 22:35 Atorvastatin Calcium (Lipitor) 20 mg PO HS DONNIE Stop: 09/22/18 21:59 Last Admin: 08/30/18 21:06 Dose: 20 mg Documented by: Benztropine Mesylate (Cogentin) 1 mg PO Q4 PRN PRN Reason: EPS Stop: 09/23/18 11:55 Last Admin: 08/25/18 13:24 Dose: 1 mg Documented by: Bismuth Subsalicylate (Kaopectate) 15 ml PO PRN PRN PRN Reason: Loose Stool Stop: 09/21/18 22:35 Gabapentin (Neurontin) 100 mg PO TID DONNIE Stop: 09/22/18 20:59 Last Admin: 08/31/18 08:53 Dose: 100 mg Documented by: Haloperidol (Haldol) 5 mg PO Q4H PRN PRN Reason: psychosis or agitation Stop: 09/23/18 08:19 Last Admin: 08/25/18 13:23 Dose: 5 mg Documented by: Haloperidol Lactate (Haldol) 5 mg IM Q4H PRN PRN Reason: psychosis or agitation Stop: 09/23/18 08:19 Hydroxyzine HCl (Vistaril) 50 mg PO HSZ PRN PRN Reason: Insomnia Stop: 09/21/18 22:35 Last Admin: 08/24/18 00:02 Dose: 50 mg Documented by: Hydroxyzine HCl (Vistaril) 25 mg PO Q4H PRN PRN Reason: Anxiety Stop: 09/21/18 22:35 Last Admin: 08/25/18 16:32 Dose: 25 mg Documented by: Hydroxyzine HCl (Vistaril) 50 mg PO [facility] Stop: 09/22/18 21:59 Last Admin: 08/30/18 21:06 Dose: 50 mg Documented by: Levothyroxine Sodium (Synthroid) 100 mcg PO TODAY@0700 [facility] Stop: 09/23/18 06:59 Last Admin: 08/31/18 06:51 Dose: 100 mcg Documented by: [place] Carbonate (Lithobid) 300 mg PO QAM [facility] Stop: 09/29/18 08:59 Last Admin: 08/31/18 08:53 Dose: 300 mg Documented by: [place] Carbonate (Lithobid) 600 mg PO [facility] Stop: 09/28/18 21:59 Last Admin: 08/30/18 21:06 Dose: 600 mg Documented by: Lorazepam (Ativan) 1 mg PO Q4 PRN PRN Reason: psychosis or agitation Stop: 09/23/18 08:20 Last Admin: 08/28/18 07:40 Dose: 1 mg Documented by: Lorazepam (Ativan) 1 mg IM Q4H PRN PRN Reason: psychosis or agitation Stop: 09/23/18 08:20 Lurasidone HCl (Latuda) 40 ea PO DAILY@1700 [facility] Stop: 09/25/18 16:59 Last Admin: 08/30/18 18:46 Dose: 40 ea Documented by: Magnesium Hydroxide (Milk Of Magnesia) 30 ml PO DAILY PRN PRN Reason: Heartburn Stop: 09/21/18 22:35 Propranolol HCl (Inderal) 10 mg PO BID [facility] Stop: 09/22/18 20:59 Last Admin: 08/31/18 08:52 Dose: 10 mg Documented by: Sodium Chloride ([place] Nasal) 1 - 2 sprays NA PRN PRN PRN Reason: Nasal Dryness/Congestion Stop: 09/21/18 22:35 Post Discharge Appointments Primary Care Physician Name Of Family Doctor: MARITZA Astorga Psychiatrist Date of Appointment with Psychiatrist: 12/20/18 Therapist Name of Therapist: denied wanting one. Bilingual Middle School Teacher Name of Bilingual Middle School Teacher: MICHAEL Hidalgo Phone Number for Bilingual Middle School Teacher: [phone] Date of Appointment with Bilingual Middle School Teacher: 09/08/18 Time of Appointment with Bilingual Middle School Teacher: 12:30 CPT Code CPT Code 14104
[2018-08-31] MEDS: LURASIDONE HCL PO SCH (17:31)
[2018-08-31] MEDS: ATORVASTATIN 20 MG TAB PO SCH (21:11)
[2018-09-01] MEDS: LORazepam 1 MG TAB PO PRN (00:25)
[2018-09-01] MEDS: LEVOTHYROXINE SODIUM 100 MCG TABLET PO SCH (06:36)
--- NOTE | 2018-09-01 09:11 | Psychiatric Progress Note ---
Date of Service September 01, 2018 Impression / Recommendations Impression Mood yesterday was labile, showing manic behavior early in the morning, frequent laughing/tearfulness in the group setting, irritability during her family meeting, and then rating herself a 10 at community meeting. She submitted a 72-hour notice which expires on 09/03/18 at 1450. Until last evening, sleep had been inconsistent and minimal. Pt was able to sleep 9+ hours last night with a total of 100mg of hydroxyzine - will increase scheduled HS hydroxyzine to this dosage for tonight. Pt's condition is improving, but mood lability and sleep inconsistency remains a concern, as these symptoms were closely related to need for admission in the first place. Will need to observe mood today to determine if she is more stable, in order to assess if she will be able to function in an outpatient setting without rapid deterioration. Inpatient treatment remains medically necessary due to the severity of her symptoms and risk for rapid decompensation and inability to provide for her own basic needs if discharged prematurely. (1) Bipolar 1 disorder: 08/23 - Continue home medications (as reported), and confirm with OP records from Dr. Chadwick. -Discontinue zolpidem and Restoril as ineffective for sleep. -Family meeting once able to tolerate -Groups once able to tolerate. -Fasting lipid profile and glucose performed 06/29/2018 for monitoring on an atypical antipsychotic: Cholesterol levels within normal, and glucose 113. Hemoglobin A1c was 5.6% on 05/23/2018. -Clarify whether patient has case management services, as she has been referred in the past. Recommend individual therapy, which historically she has declined. 08/24 - Clarified OP med list - Latuda is 20mg daily, will resume as soon as brings it in, and titrate to effective dose. -Haldol 5mg and lorazepam 1mg added for acute agitation/psychosis. Will also add benztropine 1mg prn EPS/dystonia. -Patient never followed up with therapy or case management in the past, and will need to revisit this with her once less symptomatic. -She has not yet been able to tolerate an AIMS assessment, as she has been unable to get out of bed and sit to participate in the interview, but this would be beneficial to get once she is able to participate. 08/25 -Latuda 20 mg daily was started yesterday. -AIMS completed today by Dr. Callahan. Findings are of minimal involuntary movements that may be extreme normal in a woman who is somewhat restless. -[place] carbonate will be increased from 300 mg a day to 300 mg twice a day and we will check her lithium level on 08/27/2018 and titrate further as indicated. -Patient educated regarding lithium toxicity 08/26 - tolerating increased lithium and latuda re-initiation. will advance latuda to 40mg daily to more her towards an effective mood stabilizing dose. - lithium level tomorrow AM 08/27 - Li now 0.7 - continue regimen as above 08/28 -patient improving; continue current regimen. Arrange family meeting with and adult children. Referring for outpatient therapy and case management. 08/29 - Increase lithium to 300/600 mg daily 08/30 - Continue current lithium dosage - will need level re-checked or lab slip provided - 09/03 - Re-evaluated need for [facility]; reports ability to maintain behavioral control and tolerate a roommate as discharge preparation - Will discontinue [facility] - Family meeting with and children tomorrow 08/31 -Continue lithium. Encourage use of as needed medication for sleep, which she has been declining. -Family meeting today. 09/01 - 72-hour notice to 09/03/18 at 1450 - Continue current medication regimen - will order repeat lithium level for tomorrow morning - Will increase scheduled dose of hydroxyzine to 100mg qHS to protect sleep, as dose was effective last evening - Family meeting yesterday - family continues to be supportive but did voice ongoing concerns about sleep and mood liability (2) Hypothyroidism: 08/23 -continue home dose of levothyroxine. TSH normal at 0.380. (3) Hyperlipidemia: 08/23 - Continue home dose of atorvastatin Risk Factors Assessment Male: No : Yes Do You Have Access To A Gun?: Yes (Children found her at home with a gun prior to admission) Health Problems: Yes Mental Health Diagnoses: Yes Substance Use Disorders: No Previous Psychiatric Hospitalization: Yes Smoker: No Protective Factors Assessment : Yes Responsible for Young Children: No Employed: No (Unable to maintain employment dt paranoia) Supportive Family: Yes Interval History Identifying Information ALVARO FRAIRE is a 58-year-old F who currently lives in [place] with her , has a history of bipolar disorder type I, and was admitted on 08/22/18 22:36 on a 201 voluntary commitment for psychotic alison. Chief Complaint "I slept a lot better last night". Review of Systems Notes Constitutional: reports improvement in sleep last evening Cardiovascular: denied Respiratory: denied Gastrointestinal: denied Neurological: denied Psychiatric: denies symptoms other than stated above Total of at least 10 systems reviewed, pertinent positives as above and in HPI. Sleep Information Total Hours of Sleep: 7.5 Sleep Comments: pt given vistaril per rn. pt on q-15 minute checks Meal Information Percent Meal Consumed - Breakfast: 100 Percent Meal Consumed - Lunch: 100 Percent Meal Consumed - Dinner: 90 Nutrition Comment: pt. ate breakfast mid-morning Subjective Subjective Patient was seen & assessed and interval progress reviewed with Treatment Team. Staff reports the patient was more labile yesterday: demonstrating manic behavior in morning, irritability following her family meeting, and periodic crying spells throughout the day. She was able to reconstitute during the evening and rated her mood a 9/10. Pt slept about 9 hours last evening, which is a drastic improvement from previous nights. Family meeting with and two adult children was held yesterday afternoon. They remain very supportive, but continue to be worried about her sleep, as this often is a precursor to her mood instability. Pt was seen today to assess progress since admission. Pt states she is doing well and feels well-rested. Pt states she had a difficult day yesterday, reporting "the morning was good, but I kind of threw a fit during my meeting." Pt states she was disappointed her family meeting was not followed by a discharge. She admits to understanding her family's concerns and agrees that staying "a bit longer" is a good idea. She did submit her 72-hour notice, which expires 09/03/18 at 1450. Pt denies other needs or concerns today. Physical Exam Psychiatric Orientation: alert, oriented x 3 and cooperative Apperance: appropriately dressed, appropriately groomed and appeared stated age Eye Contact: good eye contact Motor Behavior: steady gait and station and + EPS (ongoing lateral head/neck movements, some lip smacking observed) Speech: normal rate/rhythm/volume of speech; no pressured speech Affect: euthymic affect and + tearful affect (breif while discussing length of stay) Mood: no depressed mood, no anxious mood and no irritable mood Thought Process: goal directed thought process and clear/coherent thought process; no flight of ideas Thought Content: reality based without delusions Suicidal Thoughts: denies suicidal thoughts, denies suicidal plan and denies suicidal intent Homicidal Thoughts: denies homicidal thoughts Hallucinations: no auditory hallucinations and no visual hallucinations Cognition: recent memory grossly intact, remote memory grossly intact, attention grossly intact and language grossly intact Estimated Intelligence: consistent with education level Insight: + fair insight (recognizing need for treatment) Judgement: + poor judgement and + fair judgement Vital Signs (Past 24 Hours) Last Vital Signs Temp 36.6 C 09/01/18 06:00 Pulse 64 09/01/18 06:00 Resp 18 09/01/18 06:00 BP 120/79 09/01/18 06:00 Pulse Ox 99 08/22/18 22:00 Results & Data Current Inpatient Medications Current Inpatient Medications: Current Inpatient Medications Acetaminophen (Tylenol) 650 mg PO Q4H PRN PRN Reason: Headache or Minor Fever Stop: 09/21/18 22:35 Al Hydrox/Mg Hydrox/Simethicone (Maalox) 30 ml PO Q4H PRN PRN Reason: GI Upset Stop: 09/21/18 22:35 Atorvastatin Calcium (Lipitor) 20 mg PO HS DONNIE Stop: 09/22/18 21:59 Last Admin: 08/31/18 21:11 Dose: 20 mg Documented by: Benztropine Mesylate (Cogentin) 1 mg PO Q4 PRN PRN Reason: EPS Stop: 09/23/18 11:55 Last Admin: 08/25/18 13:24 Dose: 1 mg Documented by: Bismuth Subsalicylate (Kaopectate) 15 ml PO PRN PRN PRN Reason: Loose Stool Stop: 09/21/18 22:35 Gabapentin (Neurontin) 100 mg PO TID DONNIE Stop: 09/22/18 20:59 Last Admin: 08/31/18 21:11 Dose: 100 mg Documented by: Haloperidol (Haldol) 5 mg PO Q4H PRN PRN Reason: psychosis or agitation Stop: 09/23/18 08:19 Last Admin: 08/25/18 13:23 Dose: 5 mg Documented by: Haloperidol Lactate (Haldol) 5 mg IM Q4H PRN PRN Reason: psychosis or agitation Stop: 09/23/18 08:19 Hydroxyzine HCl (Vistaril) 50 mg PO HSZ PRN PRN Reason: Insomnia Stop: 09/21/18 22:35 Last Admin: 09/01/18 00:24 Dose: 50 mg Documented by: Hydroxyzine HCl (Vistaril) 25 mg PO Q4H PRN PRN Reason: Anxiety Stop: 09/21/18 22:35 Last Admin: 08/25/18 16:32 Dose: 25 mg Documented by: Hydroxyzine HCl (Vistaril) 50 mg PO HS [facility] Stop: 09/22/18 21:59 Last Admin: 08/31/18 21:12 Dose: 50 mg Documented by: Levothyroxine Sodium (Synthroid) 100 mcg PO TODAY@0700 [facility] Stop: 09/23/18 06:59 Last Admin: 09/01/18 06:36 Dose: 100 mcg Documented by: [place] Carbonate (Lithobid) 300 mg PO QAM [facility] Stop: 09/29/18 08:59 Last Admin: 08/31/18 08:53 Dose: 300 mg Documented by: [place] Carbonate (Lithobid) 600 mg PO [facility] Stop: 09/28/18 21:59 Last Admin: 08/31/18 21:11 Dose: 600 mg Documented by: Lorazepam (Ativan) 1 mg PO Q4 PRN PRN Reason: psychosis or agitation Stop: 09/23/18 08:20 Last Admin: 09/01/18 00:25 Dose: 1 mg Documented by: Lorazepam (Ativan) 1 mg IM Q4H PRN PRN Reason: psychosis or agitation Stop: 09/23/18 08:20 Lurasidone HCl (Latuda) 40 ea PO DAILY@1700 [facility] Stop: 09/25/18 16:59 Last Admin: 08/31/18 17:31 Dose: 40 ea Documented by: Magnesium Hydroxide (Milk Of Magnesia) 30 ml PO DAILY PRN PRN Reason: Heartburn Stop: 09/21/18 22:35 Propranolol HCl (Inderal) 10 mg PO BID [facility] Stop: 09/22/18 20:59 Last Admin: 08/31/18 21:11 Dose: 10 mg Documented by: Sodium Chloride ([place] Nasal) 1 - 2 sprays NA PRN PRN PRN Reason: Nasal Dryness/Congestion Stop: 09/21/18 22:35 Post Discharge Appointments Primary Care Physician Name Of Family Doctor: MARTIZA Muller - Dr. Astorga Psychiatrist Date of Appointment with Psychiatrist: 12/20/18 Therapist Name of Therapist: denied wanting one. Assistance Coordinator Name of Assistance Coordinator: MICHAEL Hidalgo Phone Number for Assistance Coordinator: [phone] Date of Appointment with Assistance Coordinator: 09/08/18 Time of Appointment with Assistance Coordinator: 12:30 CPT Code CPT Code 39980
[2018-09-01] MEDS: GABAPENTIN 100 MG CAP PO SCH ×3 (10:06→21:04)
[2018-09-01] MEDS: LITHIUM CARBONATE SLOW REL 300 MG TAB PO SCH ×2 (10:06→21:04)
[2018-09-01] MEDS: PROPRANOLOL HCL 10 MG TAB PO SCH ×2 (10:06→21:04)
[2018-09-01] MEDS: LURASIDONE HCL PO SCH (17:27)
[2018-09-01] MEDS: ATORVASTATIN 20 MG TAB PO SCH (21:04)
[2018-09-02] MEDS: LEVOTHYROXINE SODIUM 100 MCG TABLET PO SCH (06:36)
[2018-09-02] MEDS: PROPRANOLOL HCL 10 MG TAB PO SCH (07:10)
[2018-09-02] MEDS: LITHIUM CARBONATE SLOW REL 300 MG TAB PO SCH (07:10)
[2018-09-02] MEDS: GABAPENTIN 100 MG CAP PO SCH (07:10)
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
== END 2018-09-02 12:45 | disposition home or self-care (01) | DRG 885 ==
LOC: ED 17:07 → 3S 22:36
DX: Z88.0 Allergy status to penicillin; E78.5 Hyperlipidemia, unspecified; E03.9 Hypothyroidism, unspecified; F31.9 Bipolar disorder, unspecified

== ENCOUNTER 2020-06-16 17:23 | Inpatient (IN) ==
--- NOTE | 2020-06-16 17:53 | Emergency Department Note ---
Impression & Plan Psychosis, Hallucinations, Falling, UTI (urinary tract infection) ED Provider Note NAME: ALVARO FRAIRE AGE: 60 SEX: F : 1960 ARRIVES VIA: Walk-In INFORMANT: [Patient][son] ED PROVIDER(S): [Lucas Doshi MD] CHIEF COMPLAINT: Mental health evaluation HISTORY OF PRESENT ILLNESS: The patient is a 60-year-old female who has had a change in her mental health in the last week. The patient's son states that on 06 June, the patient started Lamictal and Vraylar. He thinks the medications may be responsible for her behavior. She cannot find words, she seems to stutter at times with speaking. She is weak, she is falling. She cannot care for herself or clean herself. She is falling off the toilet. She is hallucinating, she is having dreams about her . The patient is not able to function at home and they were referred to this ED for potential psychiatric hospitalization. There has been no fever, chills, cough or congestion. No vomiting or diarrhea. The patient has not been injured with her falls. Of note, the patient did have a negative MRI of her brain performed on May 05, she had a negative CT scan of her brain performed on May 10. These imaging studies were performed because of issues similar to today's. Once her m edications were adjusted, the patient seemed better. Now that she is on some newer medications, she seems worse. REVIEW OF SYSTEMS: See HPI for pertinent positives and negatives. A total of ten systems were reviewed and were otherwise negative. PMHx/PSHx: See Below SOCIAL HISTORY: See Below. PHYSICAL EXAM: GENERAL: Patient is in no acute distress. HEENT: No acute trauma, normocephalic atraumatic, mucous membranes moist, no nasal congestion, no scleral icterus. NECK: No stridor, no adenopathy, no meningismus, trachea is midline. LUNGS: Clear to auscultation bilaterally, no wheeze, no rhonchi, breath sounds equal. HEART: Without murmurs gallops or rubs, regular rate and rhythm. ABDOMEN: Soft, nontender, bowel sounds positive, no hernias, no peritonitis. EXTREMITIES: No cyanosis or edema, full range of motion of all the joints without pain or difficulty, no signs for acute trauma. NEUROLOGIC: Awake and alert. Follows simple commands. She does seem quite weak and really cannot stand on her own without her sons help. She has some stuttering speech at times. SKIN: No rash, no jaundice, no diaphoresis. Psychiatric: Cooperative, currently voluntary. Not suicidal. DIFFERENTIAL DIAGNOSIS: Mood disorder, infection, hypoglycemia, electrolyte abnormalities, suicidality, medication reaction, depression and anxiety, cardiac sources, intracerebral event, toxicologic etiology, trauma, neurologic event, as well as other pathologies. EMERGENCY DEPARTMENT COURSE/PROCEDURES: MEDICAL DECISION MAKING: There is no leukocytosis or concerning anemia. There is a normal platelet count. No significant electrolyte abnormality or kidney failure. No worrisome liver enzyme elevation. The patient's TSH was low however, her T4 was normal. Urinalysis is consistent with infection. Urine culture is pending. Aspirin, Tylenol and alcohol levels were undetectable. [place] level was undetectable. Covid testing returned negative. Urine tox showed benzos only, she takes benzos. On exam, the patient was cooperative. The patient was given 300 mg of Omnicef orally. This was given to start treatment for her UTI. The patient presents with hallucinations. She appears to have psychosis. She is unable to care for herself. She is having a hard time with ambulation, she is falling, she is having a hard time speaking. The patient is in need of psychiatric care. Certainly, her medications may be the driving force behind her mental health change. She is not able to be discharged home as she cannot care for herself in this condition. The patient did seem medically clear, of note, her UTI can easily be treated with oral antibiotics. The patient was seen by psychiatry case management. Patient is signing into the hospital voluntarily. A bed search is underway. Of note, the patient was bit anxious about coming into the psychiatric portion of the hospital, she asked for some Ativan. A dose of 1 mg sublingual was administered. The case has been assumed by Dr. Dutton at the change of shift. Past Med/Surg History Medical History Bipolar 1 disorder History of anesthesia reaction difficulty waking Hyperlipidemia Hypertension Hypothyroidism Mood disorder Surgical History History of colonoscopy with polypectomy History of conization of cervix History of cervical conization by laser History of dilation and curettage History of foot surgery x2--right--no hardware History of hysteroscopy History of right oophorectomy History of tooth extraction all upper teeth History of tubal ligation Family History Father Type 2 diabetes mellitus Family hx colonic polyps Brother Type 2 diabetes mellitus Sister Parathyroid disorder Brother Type 2 diabetes mellitus Other No family history of adverse response to anesthesia Social History Smoking Status: Never smoker Second Hand Exposure: No; Hx Alcohol Use: No Hx Substance Use: No Preferred Language: Lao Communication Ability: Effective Assistant Store Manager Required: No Beliefs That Will Affect Care: None marital status: Current Living Situation: Spouse current occupational status: employed Feels Safe at Home: Yes Assistive Devices: Denture - Upper and Glasses Allergies Allergies Allergy/AdvReac Type Severity Reaction Status Date / Time Penicillins Allergy Mild Rash Verified 05/05/20 20:15 Home Meds Home Medications Medication Instructions Recorded Confirmed propranolol 10 mg PO BID #60 01/21/17 06/16/20 gabapentin 100 mg PO TID #0 cap 10/01/17 06/16/20 doxepin 200 mg PO HS PRN 12/06/18 06/16/20 hydroxyzine HCl 50 mg PO HS 12/06/18 06/16/20 temazepam 30 mg PO HS 12/06/18 06/16/20 levothyroxine [Synthroid] 100 mcg PO QAM 02/04/20 06/16/20 benztropine 1 mg PO BID 05/05/20 06/16/20 aspirin 81 mg PO DAILY 05/10/20 06/16/20 cariprazine [Vraylar] 1.5 mg PO DAILY 06/16/20 06/16/20 lamotrigine 25 mg PO HS 06/16/20 06/16/20 Previous Rx's Medication Instructions Recorded atorvastatin 20 mg tablet 20 mg PO HS #30 tab 05/02/20 Results & Data (ED) Vital Signs Vital Signs - 24 hr 06/16/20 17:31 06/16/20 19:58 Temperature 36.4 C L Temperature Source Oral Pulse Rate 74 Pulse Rate [Finger] 72 Pulse Rhythm Regular Pulse Strength Normal Respiratory Rate 18 17 Respiratory Effort / Characteristics Non-Labored Spontaneous Respiratory Depth Normal Respiratory Pattern Regular Blood Pressure 132/83 Blood Pressure [Left Arm] 125/79 Blood Pressure Mean 99 Blood Pressure Mean [Left Arm] 94 Blood Pressure Position Sitting Pulse Oximetry 97 97 Oxygen Delivery Method Room Air Room Air Sepsis Recent Fever Within 48 Hours No Sepsis New/Unexplained Change in Mental Status N/A Sepsis Action Taken by Nursing No Action Required Home Medications Current Medication List: was personally reviewed by me Laboratory Data Attestation: I reviewed the patient's lab results. Result diagrams: 06/16/20 18:05 06/16/20 18:05 Lab Results 06/16/20 06/16/20 06/16/20 Range/Units 18:05 18:05 18:05 WBC 6.69 (4.8-10.8) K/uL RBC 4.63 (4.2-5.4) M/uL Hgb 13.8 (12.0-16.0) g/dL Hct 41.2 (37-47) % MCV 89.0 (80-100) fL MCH 29.8 (25-34) pg MCHC 33.5 (32-36) g/dL RDW Std Deviation 39.9 (36.4-46.3) fL RDW Coeff of Zakiya 12.5 (11.5-14.5) % Plt Count 215 (130-400) K/uL MPV 10.9 H (7.4-10.4) fL Immature Gran % (Auto) 0.0 % Neut % (Auto) 54.7 % Lymph % (Auto) 28.3 % [place] % (Auto) 9.4 % Eos % (Auto) 7.2 % Baso % (Auto) 0.4 % Neut # (Auto) 3.66 (1.4-6.5) K/uL Lymph # (Auto) 1.89 (1.2-3.4) K/uL [place] # (Auto) 0.63 H (0.11-0.59) K/uL Eos # (Auto) 0.48 (0-0.5) K/uL Baso # (Auto) 0.03 (0-0.2) K/uL Immature Gran # (Auto) 0.00 (0.00-0.02) K/uL Sodium 141 (136-145) mmol/L Potassium 3.6 (3.5-5.1) mmol/L Chloride 108 H (98-107) mmol/L Carbon Dioxide 29 (21-32) mmol/L Anion Gap 4.0 (3-11) BUN 18 (7-18) mg/dl Creatinine 0.99 (0.6-1.2) mg/dl Est Cr Clr Drug Dosing 54.0 ml/min Est GFR ( Amer) 70.8 Est GFR (Non-Af Amer) 61.1 BUN/Creatinine Ratio 18.2 (10-20) Glucose 104 H (70-99) mg/dl Calcium 9.6 (8.5-10.1) mg/dl Total Bilirubin 0.6 (0.2-1) mg/dl AST 18 (15-37) U/L ALT 33 (12-78) U/L Alkaline Phosphatase 113 (45-117) U/L Total Protein 7.4 (6.4-8.2) gm/dl Albumin 3.8 (3.4-5.0) gm/dl Globulin 3.6 (2.5-4.0) gm/dl Albumin/Globulin Ratio 1.1 (0.9-2) TSH 0.113 L (0.300-4.500) uIu/ml Free T4 1.43 (0.8-1.6) ng/dl Urine Color Urine Appearance (Clear) Urine pH (4.5-7.5) Ur Specific [place] (1.000-1.030) Urine Protein (Negative) Urine Glucose (UA) (Negative) Urine Ketones (Negative) Urine Blood (Negative) Urine Nitrite (Negative) Urine Bilirubin (Negative) Urine Urobilinogen (Negative) Ur Leukocyte Esterase (Negative) Urine WBC (Auto) (0-5) /hpf Urine RBC (Auto) (0-4) /hpf U Hyaline Cast (Auto) (0-5) /lpf U Epithel Cells (Auto) (0-5) /lpf Urine Bacteria (Auto) (Negative) Salicylates < 1.7 L (2.8-20) mg/dl Urine Opiates Screen (Neg) Ur Methadone, Qual (Neg) Acetaminophen < 2 L (10-30) ug/ml Urine Barbiturates (Neg) Ur Phencyclidine (PCP) (Neg) U Amphetamin/Meth Scrn (Neg) MDMA (Ecstasy) Screen (Neg) U Benzodiazepines Scrn (Neg) [place] < 0.2 L (0.6-1.2) mmol/L Ur Cocaine Metabolite (Neg) U Marijuana (THC) Screen (Neg) Ethyl Alcohol mg/dL (0-3) mg/dl SARS-CoV-2 Ag (Rapid) (Negative) 06/16/20 06/16/20 06/16/20 Range/Units 18:05 18:13 19:25 WBC (4.8-10.8) K/uL RBC (4.2-5.4) M/uL Hgb (12.0-16.0) g/dL Hct (37-47) % MCV (80-100) fL MCH (25-34) pg MCHC (32-36) g/dL RDW Std Deviation (36.4-46.3) fL RDW Coeff of Zakiya (11.5-14.5) % Plt Count (130-400) K/uL MPV (7.4-10.4) fL Immature Gran % (Auto) % Neut % (Auto) % Lymph % (Auto) % [place] % (Auto) % Eos % (Auto) % Baso % (Auto) % Neut # (Auto) (1.4-6.5) K/uL Lymph # (Auto) (1.2-3.4) K/uL [place] # (Auto) (0.11-0.59) K/uL Eos # (Auto) (0-0.5) K/uL Baso # (Auto) (0-0.2) K/uL Immature Gran # (Auto) (0.00-0.02) K/uL Sodium (136-145) mmol/L Potassium (3.5-5.1) mmol/L Chloride (98-107) mmol/L Carbon Dioxide (21-32) mmol/L Anion Gap (3-11) BUN (7-18) mg/dl Creatinine (0.6-1.2) mg/dl Est Cr Clr Drug Dosing ml/min Est GFR ( Amer) Est GFR (Non-Af Amer) BUN/Creatinine Ratio (10-20) Glucose (70-99) mg/dl Calcium (8.5-10.1) mg/dl Total Bilirubin (0.2-1) mg/dl AST (15-37) U/L ALT (12-78) U/L Alkaline Phosphatase (45-117) U/L Total Protein (6.4-8.2) gm/dl Albumin (3.4-5.0) gm/dl Globulin (2.5-4.0) gm/dl Albumin/Globulin Ratio (0.9-2) TSH (0.300-4.500) uIu/ml Free T4 (0.8-1.6) ng/dl Urine Color Yellow Urine Appearance Cloudy A (Clear) Urine pH 6.0 (4.5-7.5) Ur Specific [place] 1.009 (1.000-1.030) Urine Protein Negative (Negative) Urine Glucose (UA) Negative (Negative) Urine Ketones Trace H (Negative) Urine Blood Trace H (Negative) Urine Nitrite Positive A (Negative) Urine Bilirubin Negative (Negative) Urine Urobilinogen Negative (Negative) Ur Leukocyte Esterase 3+ H (Negative) Urine WBC (Auto) >30 H (0-5) /hpf Urine RBC (Auto) 0-4 (0-4) /hpf U Hyaline Cast (Auto) 5-10 H (0-5) /lpf U Epithel Cells (Auto) 10-20 H (0-5) /lpf Urine Bacteria (Auto) 2+ H (Negative) Salicylates (2.8-20) mg/dl Urine Opiates Screen (Neg) Ur Methadone, Qual (Neg) Acetaminophen (10-30) ug/ml Urine Barbiturates (Neg) Ur Phencyclidine (PCP) (Neg) U Amphetamin/Meth Scrn (Neg) MDMA (Ecstasy) Screen (Neg) U Benzodiazepines Scrn (Neg) [place] (0.6-1.2) mmol/L Ur Cocaine Metabolite (Neg) U Marijuana (THC) Screen (Neg) Ethyl Alcohol mg/dL < 3.0 (0-3) mg/dl SARS-CoV-2 Ag (Rapid) Negative (Negative) 06/16/20 Range/Units 19:25 WBC (4.8-10.8) K/uL RBC (4.2-5.4) M/uL Hgb (12.0-16.0) g/dL Hct (37-47) % MCV (80-100) fL MCH (25-34) pg MCHC (32-36) g/dL RDW Std Deviation (36.4-46.3) fL RDW Coeff of Zakiya (11.5-14.5) % Plt Count (130-400) K/uL MPV (7.4-10.4) fL Immature Gran % (Auto) % Neut % (Auto) % Lymph % (Auto) % [place] % (Auto) % Eos % (Auto) % Baso % (Auto) % Neut # (Auto) (1.4-6.5) K/uL Lymph # (Auto) (1.2-3.4) K/uL [place] # (Auto) (0.11-0.59) K/uL Eos # (Auto) (0-0.5) K/uL Baso # (Auto) (0-0.2) K/uL Immature Gran # (Auto) (0.00-0.02) K/uL Sodium (136-145) mmol/L Potassium (3.5-5.1) mmol/L Chloride (98-107) mmol/L Carbon Dioxide (21-32) mmol/L Anion Gap (3-11) BUN (7-18) mg/dl Creatinine (0.6-1.2) mg/dl Est Cr Clr Drug Dosing ml/min Est GFR ( Amer) Est GFR (Non-Af Amer) BUN/Creatinine Ratio (10-20) Glucose (70-99) mg/dl Calcium (8.5-10.1) mg/dl Total Bilirubin (0.2-1) mg/dl AST (15-37) U/L ALT (12-78) U/L Alkaline Phosphatase (45-117) U/L Total Protein (6.4-8.2) gm/dl Albumin (3.4-5.0) gm/dl Globulin (2.5-4.0) gm/dl Albumin/Globulin Ratio (0.9-2) TSH (0.300-4.500) uIu/ml Free T4 (0.8-1.6) ng/dl Urine Color Urine Appearance (Clear) Urine pH (4.5-7.5) Ur Specific [place] (1.000-1.030) Urine Protein (Negative) Urine Glucose (UA) (Negative) Urine Ketones (Negative) Urine Blood (Negative) Urine Nitrite (Negative) Urine Bilirubin (Negative) Urine Urobilinogen (Negative) Ur Leukocyte Esterase (Negative) Urine WBC (Auto) (0-5) /hpf Urine RBC (Auto) (0-4) /hpf U Hyaline Cast (Auto) (0-5) /lpf U Epithel Cells (Auto) (0-5) /lpf Urine Bacteria (Auto) (Negative) Salicylates (2.8-20) mg/dl Urine Opiates Screen Neg (Neg) Ur Methadone, Qual Neg (Neg) Acetaminophen (10-30) ug/ml Urine Barbiturates Neg (Neg) Ur Phencyclidine (PCP) Neg (Neg) U Amphetamin/Meth Scrn Neg (Neg) MDMA (Ecstasy) Screen Neg (Neg) U Benzodiazepines Scrn Pos H (Neg) [place] (0.6-1.2) mmol/L Ur Cocaine Metabolite Neg (Neg) U Marijuana (THC) Screen Neg (Neg) Ethyl Alcohol mg/dL (0-3) mg/dl SARS-CoV-2 Ag (Rapid) (Negative) Administered Medications Discontinued Medications Cefdinir (Cefdinir 300 Mg Cap) 300 mg PO ONE STA Stop: 06/16/20 19:54 Last Admin: 06/16/20 19:58 Dose: 300 mg Documented by: [id number] Lorazepam (Lorazepam 1 Mg Tab) 1 mg SL NOW STA Stop: 06/16/20 20:59 Last Admin: 06/16/20 21:12 Dose: 1 mg Documented by: [id number] Discharge Plan Visit Data Chief Complaint: Mental Health Evaluation Stated Complaint: MENTAL HEALTH ED Provider: Andrei Dutton Discharge Problem: Psychosis, Hallucinations, Falling, UTI (urinary tract infection) Patient Disposition: Still a Patient Condition: Fair Forms Stand Alone Forms: [facility], Suicide Prevention Resources Prescriptions Prescriptions: No Action propranolol 10 mg Tablet 10 mg PO BID Qty: 60 RF: 0 gabapentin 100 mg Capsule 100 mg PO TID Qty: 0 RF: 0 atorvastatin [Lipitor] 20 mg tablet 20 mg PO HS Qty: 30 RF: 11 temazepam 30 mg capsule 30 mg PO HS RF: 0 doxepin 100 mg capsule 200 mg PO HS PRN (Reason: Sleep) RF: 0 hydroxyzine HCl 50 mg tablet 50 mg PO HS RF: 0 levothyroxine [Synthroid] 100 mcg tablet 100 mcg PO QAM RF: 0 benztropine 1 mg tablet 1 mg PO BID RF: 0 aspirin 81 mg Tablet 81 mg PO DAILY RF: 0 Vraylar 1.5 mg Capsule 1.5 mg PO DAILY RF: 0 lamotrigine 25 mg Tablet 25 mg PO HS RF: 0 Referrals Referrals: Sonja Spears DO [Primary Care Provider] - Discharge Problem: Psychosis Qualifiers: Psychosis type: unspecified psychosis type Qualified Code(s): F29 - Unspecified psychosis not due to a substance or known physiological condition UTI (urinary tract infection) Qualifiers: Urinary tract infection type: acute cystitis Hematuria presence: without hematuria Qualified Code(s): N30.00 - Acute cystitis without hematuria
[2020-06-16 18:19] LABS: Basophils # (auto) 0.03 K/uL (0-0.2); Basophils % (auto) 0.4 %; Eosinophils # (auto) 0.48 K/uL (0-0.5); Eosinophils % (auto) 7.2 %; Hematocrit (blood only) 41.2 % (37-47); Hemoglobin 13.8 g/dL (12.0-16.0); Lymphocytes # (auto) 1.89 K/uL (1.2-3.4); Lymphocytes % (auto) 28.3 %; Mean Corpuscular Hemoglobin 29.8 pg (25-34); Mean Corpuscular Hgb Conc 33.5 g/dL (32-36); Mean Platelet Volume 10.9 fL (7.4-10.4); Monocytes # (auto) 0.63 K/uL (0.11-0.59); Monocytes % (auto) 9.4 %; Neutrophils # (auto) 3.66 K/uL (1.4-6.5); Neutrophils % (auto) 54.7 %; Platelet Count 215 K/uL (130-400); RDW Coefficient of Variation 12.5 % (11.5-14.5); RDW Standard Deviation 39.9 fL (36.4-46.3); Red Blood Count 4.63 M/uL (4.2-5.4); White Blood Count 6.69 K/uL (4.8-10.8)
[2020-06-16 18:38] LABS: Albumin Level 3.8 gm/dl (3.4-5.0); BUN Creatinine Ratio 18.2 (10-20); Calcium 9.6 mg/dl (8.5-10.1); Est GFR (African American) 70.8; Est GFR (Non-African American) 61.1; Potassium 3.6 mmol/L (3.5-5.1)
[2020-06-16 18:48] LABS: Albumin Globulin Ratio 1.1 (0.9-2); Bilirubin,Total 0.6 mg/dl (0.2-1); Globulin 3.6 gm/dl (2.5-4.0); Thyroid Stimulating Hormone 0.113 uIu/ml (0.300-4.500); Total Protein 7.4 gm/dl (6.4-8.2)
[2020-06-16 19:00] LABS: Acetaminophen < 2 ug/ml (10-30); Lithium < 0.2 mmol/L (0.6-1.2); Salicylate < 1.7 mg/dl (2.8-20)
[2020-06-16 19:01] LABS: T4 Free Thyroxine 1.43 ng/dl (0.8-1.6)
[2020-06-16 19:46] LABS: Appearance Urine Cloudy (Clear); Bacteria Urine Automated 2+ (Negative); Bilirubin Urine Negative (Negative); Blood Urine Trace (Negative); Color Urine Yellow; Glucose Urine UA Negative (Negative); Ketones Urine Trace (Negative); Leukocyte Esterase Urine 3+ (Negative); Nitrite Urine Positive (Negative); Protein Urine Negative (Negative); RBC Urine Automated 0-4 /hpf (0-4); Specific Gravity Urine 1.009 (1.000-1.030); Urobilinogen Urine Negative (Negative); WBC Urine Automated >30 /hpf (0-5)
[2020-06-16] MEDS ORDERED: CEFDINIR 300 MG CAP PO STA (19:53)
[2020-06-16 20:07] LABS: Amphetamines+Metham, Urine Neg (Neg); Barbiturates, Urine Neg (Neg); Benzodiazepine, Urine Pos (Neg); Cocaine, Urine Neg (Neg); MDMA (Ecstacy), Urine Neg (Neg); Methadone, Urine Neg (Neg); Opiate, Urine Neg (Neg); Phencyclidine, Urine Neg (Neg)
[2020-06-16] MEDS ORDERED: LORazepam 1 MG TAB SL STA (20:58)
--- NOTE | 2020-06-16 22:36 | Emergency Department Note ---
ED Visit Note Patient signed out to me by Dr. Doshi awaiting evaluation by 3 S. for her hallucinations and reaction to psychiatric medication changes. She was v oluntarily excepted 3 S. further care without further issue while here in the emergency department. 201 was signed. Patient already received a dose of Omnicef for UTI (september continue 300 mg by mouth twice daily for 7 days pending final urine culture) . : Psychosis Qualifiers: Psychosis type: unspecified psychosis type Qualified Code(s): F29 - Unspecified psychosis not due to a substance or known physiological condition UTI (urinary tract infection) Qualifiers: Urinary tract infection type: acute cystitis Hematuria presence: without hematuria Qualified Code(s): N30.00 - Acute cystitis without hematuria
[2020-06-16] MEDS ORDERED: MAGNESIUM HYDROXIDE SUSP 30 ML UDC PO PRN (22:52)
[2020-06-16] MEDS ORDERED: SODIUM CHLORIDE 0.65% NA SOLN 45 ML (OCEAN) PRN (22:52)
[2020-06-16] MEDS ORDERED: ALUMINUM/MAGNESIUM SUSP 30 ML UDC PO PRN (22:52)
[2020-06-16] MEDS ORDERED: BISMUTH SUBSALICYLATE LIQD 236 ML PO PRN (22:52)
[2020-06-16] MEDS ORDERED: hydrOXYzine HCl 25 MG TAB PO PRN (22:52)
[2020-06-17] MEDS ORDERED: ATORVASTATIN 20 MG TAB PO ONE (00:08)
[2020-06-17] MEDS ORDERED: GABAPENTIN 100 MG CAP PO ONE (00:09)
[2020-06-17] MEDS ORDERED: lamoTRIgine 25 MG TAB PO ONE (00:10)
[2020-06-17] MEDS: hydrOXYzine HCl 25 MG TAB PO SCH ×2 (00:19→20:43)
[2020-06-17] MEDS ORDERED: TEMAZEPAM 15 MG CAPSULE PO ONE (03:07)
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
[2020-06-17] MEDS ORDERED: DOXEPIN HCL 50 MG CAPSULE PO PRN (11:59)
[2020-06-17] MEDS: GABAPENTIN 100 MG CAP PO SCH ×2 (14:00→20:39)
[2020-06-17] MEDS: CARIPRAZINE HCL PO SCH (19:52)
[2020-06-17] MEDS: PROPRANOLOL HCL 10 MG TAB PO SCH (20:37)
[2020-06-17] MEDS: BENZTROPINE MESYLATE 1 MG TAB PO SCH (20:38)
[2020-06-17] MEDS: lamoTRIgine 25 MG TAB PO SCH (20:39)
[2020-06-17] MEDS: ATORVASTATIN 20 MG TAB PO SCH (20:40)
[2020-06-17] MEDS: ACETAMINOPHEN 325 MG TAB PO PRN (21:28)
[2020-06-17] MEDS: TEMAZEPAM 15 MG CAPSULE PO SCH (21:29)
[2020-06-17] MEDS ORDERED: GABAPENTIN 100 MG CAP PO SCH (22:00)
[2020-06-18] MEDS: PROPRANOLOL HCL 10 MG TAB PO SCH ×2 (07:43→20:28)
[2020-06-18] MEDS: LEVOTHYROXINE SODIUM 100 MCG TABLET PO SCH (07:44)
[2020-06-18] MEDS: BENZTROPINE MESYLATE 1 MG TAB PO SCH ×2 (07:44→20:27)
[2020-06-18] MEDS: GABAPENTIN 100 MG CAP PO SCH ×3 (07:44→20:28)
[2020-06-18] MEDS: CARIPRAZINE HCL PO SCH (07:45)
[2020-06-18] MEDS: ASPIRIN 81 MG ECTAB PO SCH (07:45)
--- NOTE | 2020-06-18 08:38 | Psychiatric Progress Note ---
Date of Service June 18, 2020 Impression / Recommendations Impression 60-year-old female with a history of bipolar disorder type I, tardive dyskinesia, and decompensation over the past month and a half with impaired memory, multiple falls, dysarthria, and hallucinations. She had multiple ER visits at the end of April for falls and physical weakness, and due to lithium toxicity her lithium was discontinued, and due to EPS and tardive dyskinesia, Latuda was discontinued, and she was started on lamotrigine. Although lamotrigine was started at the end of April, it was just increased to 50 mg daily 06/06, and Vraylar 1.5 mg added. Her son brought her into the ER due to increasing confusion, incontinence, falls, and hallucinations. She appears delirious, but will need ongoing monitoring to clarify diagnosis and etiology. (1) Psychosis: 2/2 -complicated case, primary diagnosis unclear to me at this point. 2- month history of frequent falls, weakness, and abnormal involuntary movements. Hallucinations with fairly acute onset over the past couple of weeks, as well as memory impairment and significant disorganization on exam today. Minimal evidence of mood episode on my exam, but her outpatient clinician noted symptoms of depression at her last visit a week and a half ago. It would be very helpful to be able to monitor her symptoms around the clock. Differential includes delirium, mood related psychosis, cognitive disorder, or primary thought disorder. -Lamotrigine started a little over a month ago, and just increased to 50 mg daily a week and a half ago. We will continue the standard titration. Vraylar just started about 1 and half weeks ago, will continue 1.5 mg daily. 06/18 - Outpatient records reviewed and care coordinated as above. - Continue Vraylar 1.5mg daily. Fasting labs were checked 11/2019: TG 153, Hgb A1C 5.8% (est ave glucose 120). Will hold off on titrating Vraylar due to her tardive dyskinesia and fact that symptoms are improving. - AIMS today is 10; 3 for tongue movements, 2 for foot movements, 3 for overall severity, and 2 for patient awareness/mild distress. - Patient is slightly more organized in her thinking and speech today, oriented to self and place, but not time. Still confused, unable to find her room, requiring frequent redirection. She is demonstrating paranoia, sometimes directed at staff, but responded well to reassurance, and focus on her distressing emotions. (2) Bipolar 1 disorder: 2/2 - Historical diagnosis, previous admission for alison. Recent medication adjustments made including discontinuing lithium and starting Vraylar and lamotrigine. Continue home meds for now while gathering additional information, spoke with Tyra Higgins to coordinate care. - Referring for [facility] through [employer]. 2/3 -patient appears anxious and depressed today, son expresses concerns that she has been more depressed lately, which he attributes to her loss of independence and marital discord. Continue titration of lamotrigine, increase to 100mg daily tomorrow. (3) Tardive dyskinesia: 2/2 -monitor abnormal involuntary movements, consider trial of Ingrezza, although I believe it is nonformulary -Consider neurology consult for assistance with increase in falls, weakness, and abnormal movements -she was apparently referred to [facility] 4 months ago, and her appointment is sometime this month. 2/3 -patient's gait has been steady since admission, without falls. She is not demonstrating obvious signs of weakness here, is ambulating, getting in and out of chairs, and performing ADLs without difficulty. She reportedly has an outpatient neurology appointment next week, will clarify that and may not need inpatient consultation Risk Factors Assessment Male: No : Yes Health Problems: Yes Mental Health Diagnoses: Yes Substance Use Disorders: No Previous Psychiatric Hospitalization: Yes Hopelessness: No Smoker: No Protective Factors Assessment : Yes Responsible for Young Children: No Employed: No Supportive Family: Yes Good Rapport with Provider: Yes Interval History Chief Complaint "Why is everybody after me? The nurses and the staff." Review of Systems Sleep Information Total Hours of Sleep: 5.25 Sleep Comments: Sleep was broken through the night. Patient often needed redirected back to her room. Meal Information Percent Meal Consumed - Breakfast: 100 Percent Meal Consumed - Lunch: 100 Percent Meal Consumed - Dinner: 100 Subjective Subjective Patient was seen & assessed and interval progress reviewed with treatment team. Staff report she has been confused, making nonsensical statements at times, answers questions with off-topic information, and reports ongoing auditory hallucinations of voices. She attended and participated in groups, and gait has been steady without falls. Her son contacted nursing staff and expressed hope that the patient would stay for extended treatment, as he feels she is much more depressed than she has ever been before. He thinks that her depression is related in part to loss of independence, and marital strain, as she and her have been having conflicts for the last several years. He was concerned about her lack of outpatient supports, stating that her pillowcase folder left [facility]. She has been tearful at times, thinking that the staff are talking about her or targeting her in someway, accusing them of being "out to get her." At one point she approached the nursing station with a blanket, stating there were bugs on it. She was able to shower independently. On my assessment, she was initially distraught and tearful, asking why everyone is out to get her. She could not explain this further, and responded to reassurance and redirection. She is distressed and fearful, but states she slept well, and did not have any nightmares or vivid dreams. She gave inconsistent answers regarding auditory hallucinations, initially stating she was having them, and then denying them. She is able to identify talking to her children as a good support, but has not spoken to her and becomes tearful when he was brought up. She says her abnormal involuntary movements have decreased somewhat, and it has been easier for her to eat. Physical Exam Psychiatric Orientation: alert, oriented to person, oriented to place and cooperative Apperance: appropriately dressed, appropriately groomed and appeared stated age Casually dressed in Selena stretch pants and a fuzzy sweatshirt with thumper on it. Wearing a medical facemask. Eye Contact: + fair eye contact Motor Behavior: + EPS (Guarding tongue movements) Mildly dysarthric Affect: + anxious affect and + tearful affect (Distraught) Mood: + depressed mood and + anxious mood Thought Process: + tangential thought process At times derails, other times is able to answer appropriately Thought Content: + paranoid, + delusions and + persecution Suicidal Thoughts: denies suicidal thoughts Homicidal Thoughts: denies homicidal thoughts Hallucinations: + auditory hallucinations Cognition: language grossly intact Insight: + impaired insight Judgement: + impaired judgement Vital Signs (Past 24 Hours) Last Vital Signs Temp 36.4 C L 06/18/20 06:37 Pulse 74 06/18/20 06:38 Resp 16 06/18/20 06:37 BP 111/79 06/18/20 06:38 Pulse Ox 99 06/16/20 23:03 Results & Data ([facility] [place]) Current Inpatient Medications Current Inpatient Medications: Current Inpatient Medications Acetaminophen (Acetaminophen 325 Mg Tab) 650 mg PO Q4H PRN PRN Reason: Headache or Minor Fever Stop: 07/16/20 22:51 Last Admin: 06/17/20 21:28 Dose: 650 mg Documented by: Al Hydrox/Mg Hydrox/Simethicone (Aluminum/Magnesium Susp 30 Ml Udc) 30 ml PO Q4H PRN PRN Reason: GI Upset Stop: 07/16/20 22:51 Aspirin (Aspirin 81 Mg Ectab) 81 mg PO DAILY DONNIE Stop: 07/18/20 08:59 Last Admin: 06/18/20 07:45 Dose: 81 mg Documented by: Atorvastatin Calcium (Atorvastatin 20 Mg Tab) 20 mg PO HS DONNIE Stop: 07/17/20 21:59 Last Admin: 06/17/20 20:40 Dose: 20 mg Documented by: Benztropine Mesylate (Benztropine Mesylate 1 Mg Tab) 1 mg PO BID DONNIE Stop: 07/17/20 20:59 Last Admin: 06/18/20 07:44 Dose: 1 mg Documented by: Bismuth Subsalicylate (Bismuth Subsalicylate Liqd 236 Ml) 15 ml PO PRN PRN PRN Reason: Loose Stool Stop: 07/16/20 22:51 Cariprazine (Cariprazine Hcl) 1 ea PO DAILY DONNIE Stop: 07/18/20 08:59 Last Admin: 06/18/20 07:45 Dose: 1 ea Documented by: Doxepin HCl (Doxepin Hcl 50 Mg Capsule) 200 mg PO HS PRN PRN Reason: Sleep Stop: 07/17/20 11:58 Gabapentin (Gabapentin 100 Mg Cap) 100 mg PO TID DONNIE Stop: 07/17/20 13:59 Last Admin: 06/18/20 07:44 Dose: 100 mg Documented by: Hydroxyzine HCl (Hydroxyzine Hcl 25 Mg Tab) 25 mg PO Q4H PRN PRN Reason: Anxiety Stop: 07/16/20 22:51 Hydroxyzine HCl (Hydroxyzine Hcl 25 Mg Tab) 50 mg PO HS DONNIE Stop: 03/03/21 22:59 Last Admin: 06/17/20 20:43 Dose: 50 mg Documented by: Lamotrigine (Lamotrigine 25 Mg Tab) 50 mg PO HS DONNIE Stop: 07/17/20 21:59 Last Admin: 06/17/20 20:39 Dose: 50 mg Documented by: Levothyroxine Sodium (Levothyroxine Sodium 100 Mcg Tablet) 100 mcg PO DAILYBB DONNIE Stop: 07/18/20 07:59 Last Admin: 06/18/20 07:44 Dose: 100 mcg Documented by: Magnesium Hydroxide (Magnesium Hydroxide Susp 30 Ml Udc) 30 ml PO DAILY PRN PRN Reason: Constipation Stop: 07/16/20 22:51 Propranolol HCl (Propranolol Hcl 10 Mg Tab) 10 mg PO BID DONNIE Stop: 07/17/20 20:59 Last Admin: 06/18/20 07:43 Dose: 10 mg Documented by: Sodium Chloride (Sodium Chloride 0.65% Na Soln 45 Ml ([place])) 1 - 2 sprays NA PRN PRN PRN Reason: Nasal Dryness/Congestion Stop: 07/16/20 22:51 Temazepam (Temazepam 15 Mg Capsule) 30 mg PO HSZ DONNIE Stop: 07/17/20 21:59 Last Admin: 06/17/20 21:29 Dose: 30 mg Documented by: Mental Health & Subst Abuse Tx Psychiatrist Name of Psychiatrist: Tyra Redmond Psychiatrist's Date of Appointment with Psychiatrist: 07/23/20 Time of Appointment with Psychiatrist: 1120 Psychiatric Appointment Comment: [id number] [facility] Post Discharge Appointments Primary Care Physician Name Of Family Doctor: Dr. Spears Date of Appointment with PCP: 06/26/20 Time of Appointment with PCP: 1020 (1) Psychosis Psychosis type: unspecified psychosis type Qualified Code(s): F29 - Unspecified psychosis not due to a substance or known physiological condition
[2020-06-18] MEDS: hydrOXYzine HCl 25 MG TAB PO PRN (15:06)
[2020-06-18] MEDS ORDERED: hydrOXYzine HCl 25 MG TAB PO STA (16:55)
[2020-06-18] MEDS: lamoTRIgine 25 MG TAB PO SCH (20:28)
[2020-06-18] MEDS: ATORVASTATIN 20 MG TAB PO SCH (20:29)
[2020-06-18] MEDS: hydrOXYzine HCl 25 MG TAB PO SCH (20:29)
[2020-06-18] MEDS: TEMAZEPAM 15 MG CAPSULE PO SCH (21:29)
[2020-06-19 00:27] LABS: 7-Aminoclonaz, Confirm NEGATIVE ng/mL (<25); Hydro-Alp Ur, GC/MS NEGATIVE ng/mL (<25); Hydroxyethylflurazepam, Conf NEGATIVE ng/mL (<50); Hydroxymidazolam Ur, GC/MS NEGATIVE ng/mL (<50); Hydroxytriazolam NEGATIVE ng/mL (<50); Lorazepam, Ur GC/MS NEGATIVE ng/mL (<50); Nordiazepam, Confirm NEGATIVE ng/mL (<50); Oxazepam Ur, GC/MS >2000 ng/mL (<50); Temazepam, Confirm >2000 ng/mL (<50)
[2020-06-19] MEDS: hydrOXYzine HCl 25 MG TAB PO PRN (03:34)
[2020-06-19] MEDS: BENZTROPINE MESYLATE 1 MG TAB PO SCH ×2 (08:27→20:24)
[2020-06-19] MEDS: LEVOTHYROXINE SODIUM 100 MCG TABLET PO SCH (08:27)
[2020-06-19] MEDS: ASPIRIN 81 MG ECTAB PO SCH (08:27)
[2020-06-19] MEDS: CARIPRAZINE HCL PO SCH (08:28)
[2020-06-19] MEDS: GABAPENTIN 100 MG CAP PO SCH ×3 (08:28→20:25)
[2020-06-19] MEDS: PROPRANOLOL HCL 10 MG TAB PO SCH ×2 (08:28→20:24)
--- NOTE | 2020-06-19 10:47 | Psychiatric Progress Note ---
Date of Service June 19, 2020 Impression / Recommendations Impression 60-year-old female with a history of bipolar disorder type I, tardive dyskinesia, and decompensation over the past month and a half with impaired memory, multiple falls, dysarthria, and hallucinations. She had multiple ER visits at the end of April for falls and physical weakness, and due to lithium toxicity her lithium was discontinued, and due to EPS and tardive dyskinesia, Latuda was discontinued, and she was started on lamotrigine. Although lamotrigine was started at the end of April, it was just increased to 50 mg daily 06/06, and Vraylar 1.5 mg added. Her son brought her into the ER due to increasing confusion, incontinence, falls, and hallucinations. She appears delirious, but will need ongoing monitoring to clarify diagnosis and etiology. We are continuing standard titration of lamotrigine and attempting to limit overuse of antipsychotic medications given the patient's significant TD. Pt continues to be delusional and paranoid, and would not be able to tolerate the stress of community re-entry at this time. (1) Psychosis: 2/2 -complicated case, primary diagnosis unclear to me at this point. 2- month history of frequent falls, weakness, and abnormal involuntary movements. Hallucinations with fairly acute onset over the past couple of weeks, as well as memory impairment and significant disorganization on exam today. Minimal evidence of mood episode on my exam, but her outpatient clinician noted symptoms of depression at her last visit a week and a half ago. It would be very helpful to be able to monitor her symptoms around the clock. Differential includes delirium, mood related psychosis, cognitive disorder, or primary thought disorder. -Lamotrigine started a little over a month ago, and just increased to 50 mg daily a week and a half ago. We will continue the standard titration. Vraylar just started about 1 and half weeks ago, will continue 1.5 mg daily. 2/3 - Outpatient records reviewed and care coordinated as above. - Continue Vraylar 1.5mg daily. Fasting labs were checked 11/2019: TG 153, Hgb A1C 5.8% (est ave glucose 120). Will hold off on titrating Vraylar due to her tardive dyskinesia and fact that symptoms are improving. - AIMS today is 10; 3 for tongue movements, 2 for foot movements, 3 for overall severity, and 2 for patient awareness/mild distress. - Patient is slightly more organized in her thinking and speech today, oriented to self and place, but not time. Still confused, unable to find her room, requiring frequent redirection. She is demonstrating paranoia, sometimes directed at staff, but responded well to reassurance, and focus on her distressing emotions. 2/4 - Continue medication regimen as above, lamotrigine increasing to 100mg this evening. - Pt continues to be rather confused, but also paranoid. She continues to suggest that staff is talking about her, but has more recently been convinced that several family members are being locked in the various offices on the unit. - Continue attempt to limit antipsychotic medications as able, patient continues to respond well to redirection and reassurance from staff. (2) Bipolar 1 disorder: 2/2 - Historical diagnosis, previous admission for alison. Recent medication adjustments made including discontinuing lithium and starting Vraylar and lamotrigine. Continue home meds for now while gathering additional information, spoke with Tyra Higgins to coordinate care. - Referring for [facility] through Joanne Zurita. 2/3 -patient appears anxious and depressed today, son expresses concerns that she has been more depressed lately, which he attributes to her loss of independence and marital discord. Continue titration of lamotrigine, increase to 100mg daily tomorrow. 2/4 - Lamotrigine to increase to 100mg this evening - continue standard titration schedule to target mood concerns - Patient continues to present as primarily depressed and anxiety, frequently tearful and distressed on the unit - though much of this is likely related to a reaction to current psychotic symptoms. (3) Tardive dyskinesia: 2/2 -monitor abnormal involuntary movements, consider trial of Ingrezza, although I believe it is nonformulary -Consider neurology consult for assistance with increase in falls, weakness, and abnormal movements -she was apparently referred to [facility] 4 months ago, and her appointment is sometime this month. 2/3 -patient's gait has been steady since admission, without falls. She is not demonstrating obvious signs of weakness here, is ambulating, getting in and out of chairs, and performing ADLs without difficulty. She reportedly has an outpatient neurology appointment next week, will clarify that and may not need inpatient consultation Risk Factors Assessment Male: No : Yes Health Problems: Yes Mental Health Diagnoses: Yes Substance Use Disorders: No Previous Psychiatric Hospitalization: Yes Hopelessness: No Smoker: No Protective Factors Assessment : Yes Responsible for Young Children: No Employed: No Supportive Family: Yes Good Rapport with Provider: Yes Interval History Identifying Information ALVARO FRAIRE is a 60-year-old F who currently lives in [place] with her , has a history of bipolar disorder type I, and was admitted on 06/16/20 22:11 on a 201 voluntary commitment for psychosis. Chief Complaint "[Yesterday was] better than today." Review of Systems Notes Constitutional: denied Cardiovascular: denied Respiratory: denied Gastrointestinal: denied Neurological: denied Psychiatric: denies symptoms other than stated above Total of at least 10 systems reviewed, pertinent positives as above and in HPI. Sleep Information Total Hours of Sleep: 1.25 Sleep Comments: pt appeared to have difficuties remaining asleep. pt walking the hallway and staying in her room during the night. pt on q-15 minute checks Meal Information Percent Meal Consumed - Breakfast: 0 Percent Meal Consumed - Lunch: 50 Percent Meal Consumed - Dinner: 50 Nutrition Comment: pt. only orders [place] [employer]; states she doesn't ususally eat breakfast but plans to eat lunch Subjective Subjective Patient was seen & assessed and interval progress reviewed with nursing and social work. Staff report the patient has continued to appear paranoid and has continued to verbalize delusional thoughts. She told staff that she thinks she will be shot while she's here. Pt also reported that she has been seeing bugs. Last evening, this provider observed a situation in which the patient was yelling and banging on the door of our community resource consultant's office, demanding that staff unlock the door and release her grandson whom she believed was trapped inside. Pt remained concerned for grandson's safety, but was eventually able to be redirected away from the office and did speak with family on the phone. Pt was seen today to assess progress since admission. Pt was observed to be sitting in the hallway outside of the office doors, appearing tearful. Pt was offered to walk laps with this provider while we talked but declined. She stated "I'm waiting for lunch" (visit occurred at ~10:15am). When it was explained that lunch would still be several hours away, the patient stated "I already walked today." She did accept a conversation in the hallway, and again became tearful with questioning from this provider. She was asked about her day yesterday and stated "better than today." Pt was unable to pinpoint specifically what was bothering her, but she remained tearful. She did admit to visual hallucinations/distortions of "jean-baptiste clouds, I see them and then they float away." She denied auditory hallucinations. Pt stated she did not have a goal for today, and denied any plans. She did report her mood this morning was an 8/10, now feeling "it goes up and down sometimes, I don't know." Pt was again asked why she was sitting outside of the office doors and stated in a whisper - "my ex is in there." Pt was reassured that her ex is not in the room, nor is he permitted to visit the hospital at this time. Pt was able to superficially participate in reality testing and seemed only mildly less distressed. We talked about when the next group would begin, and patient verbalized concern about our recreational therapist stating "I really hope he's doing ok." She reported "he hasn't been here the last couple days and I hope everything's alright." Pt was reassured that he is ok, and was informed that he has been working on the unit the last several days. At that time, patient was more calm and was encouraged to attend exercise group. Physical Exam Psychiatric Orientation: alert, oriented to person and + guarded (cooperation somewhat limited by level of emotional distress) Apperance: appropriately dressed, appropriately groomed and appeared stated age Eye Contact: + fair eye contact Motor Behavior: steady gait and station (ambulating appropriately) and + EPS (TD, significant tongue movements) Speech: + abnormal rate/rhythm/volume of speech (disarthric) Affect: + anxious affect and + tearful affect Mood: unclear, patient rated it an 8/10; however she is tearful and does admit to feeling "sad" and distressed Thought Process: + tangential thought process Thought Content: + paranoid, + delusions and + persecution Hallucinations: + visual hallucinations (seeing "jean-baptiste clouds") Pt denied auditory hallucinations, though this information does not necessarily seem unreliable based on her presentation. Insight: + impaired insight Judgement: + impaired judgement Vital Signs (Past 24 Hours) Last Vital Signs Temp 36.9 C 06/19/20 06:41 Pulse 92 H 06/19/20 06:41 Resp 18 06/19/20 06:41 BP 149/93 H 06/19/20 06:41 Pulse Ox 99 06/16/20 23:03 Results & Data ([facility]) Laboratory Results Laboratory Results - last 24 hr 06/16/20 19:25 U OH-Alprazolam Confrm NEGATIVE 7-Amino Clonazepam NEGATIVE Ur Nordiazepam Confirm NEGATIVE U OH-ethylflurazepam NEGATIVE U Lorazepam Cnf GC/MS NEGATIVE U Oxazepam Confm GC/MS >2000 H Ur Temazepam Confirm >2000 H U OH-Triazolam Confirm NEGATIVE U OH-Midazolam Confirm NEGATIVE Drug Screen Comment SEE NOTE Current Inpatient Medications Current Inpatient Medications: Current Inpatient Medications Acetaminophen (Acetaminophen 325 Mg Tab) 650 mg PO Q4H PRN PRN Reason: Headache or Minor Fever Stop: 07/16/20 22:51 Last Admin: 06/17/20 21:28 Dose: 650 mg Documented by: Al Hydrox/Mg Hydrox/Simethicone (Aluminum/Magnesium Susp 30 Ml Udc) 30 ml PO Q4H PRN PRN Reason: GI Upset Stop: 07/16/20 22:51 Aspirin (Aspirin 81 Mg Ectab) 81 mg PO DAILY DONNIE Stop: 07/18/20 08:59 Last Admin: 06/19/20 08:27 Dose: 81 mg Documented by: Atorvastatin Calcium (Atorvastatin 20 Mg Tab) 20 mg PO HS DONNIE Stop: 07/17/20 21:59 Last Admin: 06/18/20 20:29 Dose: 20 mg Documented by: Benztropine Mesylate (Benztropine Mesylate 1 Mg Tab) 1 mg PO BID DONNIE Stop: 07/17/20 20:59 Last Admin: 06/19/20 08:27 Dose: 1 mg Documented by: Bismuth Subsalicylate (Bismuth Subsalicylate Liqd 236 Ml) 15 ml PO PRN PRN PRN Reason: Loose Stool Stop: 07/16/20 22:51 Cariprazine (Cariprazine Hcl) 1 ea PO DAILY DONNIE Stop: 07/18/20 08:59 Last Admin: 06/19/20 08:28 Dose: 1 ea Documented by: Doxepin HCl (Doxepin Hcl 50 Mg Capsule) 200 mg PO HS PRN PRN Reason: Sleep Stop: 07/17/20 11:58 Gabapentin (Gabapentin 100 Mg Cap) 100 mg PO TID DONNIE Stop: 07/17/20 13:59 Last Admin: 06/19/20 08:28 Dose: 100 mg Documented by: Hydroxyzine HCl (Hydroxyzine Hcl 25 Mg Tab) 25 mg PO Q4H PRN PRN Reason: Anxiety Stop: 07/16/20 22:51 Last Admin: 06/19/20 03:34 Dose: 25 mg Documented by: Hydroxyzine HCl (Hydroxyzine Hcl 25 Mg Tab) 50 mg PO HS DONNIE Stop: 07/16/20 22:59 Last Admin: 06/18/20 20:29 Dose: 50 mg Documented by: Lamotrigine (Lamotrigine 100 Mg Tab) 100 mg PO HS DONNIE Stop: 07/19/20 21:59 Levothyroxine Sodium (Levothyroxine Sodium 100 Mcg Tablet) 100 mcg PO DAILYBB DONNIE Stop: 07/18/20 07:59 Last Admin: 06/19/20 08:27 Dose: 100 mcg Documented by: Magnesium Hydroxide (Magnesium Hydroxide Susp 30 Ml Udc) 30 ml PO DAILY PRN PRN Reason: Constipation Stop: 07/16/20 22:51 Propranolol HCl (Propranolol Hcl 10 Mg Tab) 10 mg PO BID DONNIE Stop: 07/17/20 20:59 Last Admin: 06/19/20 08:28 Dose: 10 mg Documented by: Sodium Chloride (Sodium Chloride 0.65% Na Soln 45 Ml ([place])) 1 - 2 sprays NA PRN PRN PRN Reason: Nasal Dryness/Congestion Stop: 07/16/20 22:51 Temazepam (Temazepam 15 Mg Capsule) 30 mg PO HSZ DONNIE Stop: 07/17/20 21:59 Last Admin: 06/18/20 21:29 Dose: 30 mg Documented by: Mental Health & Subst Abuse Tx Psychiatrist Name of Psychiatrist: Tyra Redmond Psychiatrist's Date of Appointment with Psychiatrist: 07/23/20 Time of Appointment with Psychiatrist: 1120 Psychiatric Appointment Comment: [id number] Post Discharge Appointments Primary Care Physician Name Of Family Doctor: Dr. Spears Date of Appointment with PCP: 06/26/20 Time of Appointment with PCP: 1020 (1) Psychosis Psychosis type: unspecified psychosis type Qualified Code(s): F29 - Unspecified psychosis not due to a substance or known physiological condition
[2020-06-19] MEDS: lamoTRIgine 100 MG TAB PO SCH (20:25)
[2020-06-19] MEDS: ATORVASTATIN 20 MG TAB PO SCH (20:25)
[2020-06-19] MEDS: TEMAZEPAM 15 MG CAPSULE PO SCH (20:26)
[2020-06-19] MEDS: hydrOXYzine HCl 25 MG TAB PO SCH (20:27)
[2020-06-19] MEDS: ACETAMINOPHEN 325 MG TAB PO PRN (23:30)
[2020-06-20] MEDS: LEVOTHYROXINE SODIUM 100 MCG TABLET PO SCH (08:01)
[2020-06-20] MEDS: BENZTROPINE MESYLATE 1 MG TAB PO SCH ×2 (08:39→21:13)
[2020-06-20] MEDS: GABAPENTIN 100 MG CAP PO SCH ×3 (08:39→21:14)
[2020-06-20] MEDS: CARIPRAZINE HCL PO SCH (08:39)
[2020-06-20] MEDS: PROPRANOLOL HCL 10 MG TAB PO SCH ×2 (08:39→21:13)
[2020-06-20] MEDS: ASPIRIN 81 MG ECTAB PO SCH (08:39)
--- NOTE | 2020-06-20 09:49 | Psychiatric Progress Note ---
Date of Service June 20, 2020 Impression / Recommendations Impression 60-year-old female with a history of bipolar disorder type I, tardive dyskinesia, and decompensation over the past month and a half with impaired memory, multiple falls, dysarthria, and hallucinations. She had multiple ER visits at the end of April for falls and physical weakness, and due to lithium toxicity her lithium was discontinued, and due to EPS and tardive dyskinesia, Latuda was discontinued, and she was started on lamotrigine. Although lamotrigine was started at the end of April, it was just increased to 50 mg daily 06/06, and Vraylar 1.5 mg added. Her son brought her into the ER due to increasing confusion, incontinence, falls, and hallucinations. She appears delirious, but will need ongoing monitoring to clarify diagnosis and etiology. We are continuing standard titration of lamotrigine and attempting to limit overuse of antipsychotic medications given the patient's significant TD. Pt continues to be delusional and paranoid, and would not be able to tolerate the stress of community re-entry at this time. (1) Psychosis: 2/2 -complicated case, primary diagnosis unclear to me at this point. 2- month history of frequent falls, weakness, and abnormal involuntary movements. Hallucinations with fairly acute onset over the past couple of weeks, as well as memory impairment and significant disorganization on exam today. Minimal evidence of mood episode on my exam, but her outpatient clinician noted symptoms of depression at her last visit a week and a half ago. It would be very helpful to be able to monitor her symptoms around the clock. Differential includes delirium, mood related psychosis, cognitive disorder, or primary thought disorder. -Lamotrigine started a little over a month ago, and just increased to 50 mg daily a week and a half ago. We will continue the standard titration. Vraylar just started about 1 and half weeks ago, will continue 1.5 mg daily. 2/3 - Outpatient records reviewed and care coordinated as above. - Continue Vraylar 1.5mg daily. Fasting labs were checked 11/2019: TG 153, Hgb A1C 5.8% (est ave glucose 120). Will hold off on titrating Vraylar due to her tardive dyskinesia and fact that symptoms are improving. - AIMS today is 10; 3 for tongue movements, 2 for foot movements, 3 for overall severity, and 2 for patient awareness/mild distress. - Patient is slightly more organized in her thinking and speech today, oriented to self and place, but not time. Still confused, unable to find her room, requiring frequent redirection. She is demonstrating paranoia, sometimes directed at staff, but responded well to reassurance, and focus on her distressing emotions. 2/4 - Continue medication regimen as above, lamotrigine increasing to 100mg this evening. - Pt continues to be rather confused, but also paranoid. She continues to suggest that staff is talking about her, but has more recently been convinced that several family members are being locked in the various offices on the unit. - Continue attempt to limit antipsychotic medications as able, patient continues to respond well to redirection and reassurance from staff. 06/20 -The patient remains confused and floridly psychotic. Her delusions are mood congruent with depression. For example, today she tells me that she is to be punished because she has "killed [her] mother and father, and everyone in the family." She is also tearful and sobs through much of today's encounter. She also is experiencing auditory hallucinations that are consistent with the content of the delusions. -She appears not to be oriented to month or year. However, assessment of cognitive functioning is somewhat difficult because the patient is largely mute and is very quickly distracted by what appears to be auditory hallucinations. -The patient is able to tell us that her diagnosis is bipolar disorder and that she is in the hospital being treated for a mental illness. Although she claims to not know what medication she is currently taking, she was able to answer several questions regarding what medication she has or has not taken in the past. Today, reports that she has taken Prozac in the past and that has helped when she is depressed, at least to some extent. (2) Bipolar 1 disorder: 2/2 - Historical diagnosis, previous admission for alison. Recent medication adjustments made including discontinuing lithium and starting Vraylar and lamotrigine. Continue home meds for now while gathering additional information, spoke with Tyra Higgins to coordinate care. - Referring for BCM through [facility]. 2/3 -patient appears anxious and depressed today, son expresses concerns that she has been more depressed lately, which he attributes to her loss of independence and marital discord. Continue titration of lamotrigine, increase to 100mg daily tomorrow. 06/19 - Lamotrigine to increase to 100mg this evening - continue standard titration schedule to target mood concerns - Patient continues to present as primarily depressed and anxiety, frequently tearful and distressed on the unit - though much of this is likely related to a reaction to current psychotic symptoms. 06/20 -The patient continues to appear anxious and depressed. -She appears to be tolerating the titration of lamotrigine. -Sleep remains suboptimal. Appetite remains suboptimal. -I will offer the patient a trial of fluoxetine 10 mg daily with caution, given her diagnosis of bipolar disorder. She is currently taking 2 mood stabilizing agents. (3) Tardive dyskinesia: 06/17 -monitor abnormal involuntary movements, consider trial of Ingrezza, although I believe it is nonformulary -Consider neurology consult for assistance with increase in falls, weakness, and abnormal movements -she was apparently referred to [facility] 4 months ago, and her appointment is sometime this month. 06/18 -patient's gait has been steady since admission, without falls. She is not demonstrating obvious signs of weakness here, is ambulating, getting in and out of chairs, and performing ADLs without difficulty. She reportedly has an outpatient neurology appointment next week, will clarify that and may not need inpatient consultation Risk Factors Assessment Male: No : Yes Health Problems: Yes Mental Health Diagnoses: Yes Substance Use Disorders: No Previous Psychiatric Hospitalization: Yes Hopelessness: No Smoker: No Protective Factors Assessment : Yes Responsible for Young Children: No Employed: No Supportive Family: Yes Good Rapport with Provider: Yes Interval History Identifying Information ALVARO FRAIRE is a 60-year-old F who currently lives in [place] with her , has a history of bipolar disorder type I, and was admitted on 06/16/20 22:11 on a 201 voluntary commitment for psychosis. Chief Complaint "I have done something terrible." Review of Systems Sleep Information Total Hours of Sleep: 4.75 Sleep Comments: pt appeared to be asleep @0130 and thereafter Meal Information Percent Meal Consumed - Breakfast: 0 Percent Meal Consumed - Lunch: 100 Percent Meal Consumed - Dinner: 10 Nutrition Comment: pt. only orders Chisago Juice; states she doesn't ususally eat breakfast but plans to eat lunch Subjective Subjective Patient was seen & assessed and interval progress reviewed with treatment team. I met individually with the patient in order to assess her mental status, evaluate her response to treatment, and coordinate any necessary changes in the patient treatment regimen together with the patient. During the initial portion of today's assessment the patient was tearful and largely silent and periodically broke her size to say things such as "no one can forgive me!" And "they know what I have done" and "I have done something terrible." She eventually became more verbal and responsive and told me that she is hearing voices that are telling her that she "deserves to " because she has "done something terrible." Eventually, she told me that the terrible thing that she has done has been to kill both of her parents and everyone in her family. The patient also says that she does not believe that she will be able to ever "go home" because people in the community, including her , are aware of the fact that she has "killed everyone" and will not accept her back in the community, and her will not accept her back at home. At one point, the patient said that she was not sure what medication she was taking so I explained that I would stop talking with her for a minute while I looked up her medication regimen on the computer. While I was looking up her medications the patient persistently responded verbally as if to unseen persons, where and she made statements such as "I couldn't help it." She does know that her diagnosis is bipolar disorder, and she acknowledges that she feels "so mixed up." She also eventually acknowledges that her mood is "very sad." Physical Exam Psychiatric Orientation: alert, oriented to person and oriented to place The patient did not respond to questions concerning time orientation. She does recognize that she is in the psychiatric unit being treated for a mental illness. Apperance: appropriately dressed and appropriately groomed Eye Contact: + poor eye contact Motor Behavior: + psychomotor retardation; + abnormal motor movements Motor movements consistent with tardive dyskinesia, most prominently involving her tongue and oral musculature. Soft. Slow. Delayed. Nonspontaneous, except when responding to what appear to be auditory hallucinations. Affect: + depressed affect and + tearful affect Mood: + depressed mood Thought Process: + concrete thought process Thought Content: + delusions The patient's delusions are congruent with her depressed mood. Suicidal Thoughts: denies suicidal thoughts Homicidal Thoughts: denies homicidal thoughts Hallucinations: + auditory hallucinations; no visual hallucinations, no tactile hallucinations and no gustatory hallucinations Memory tests are either not responded to or are clearly shaped by the patient's delusions. Estimated Intelligence: average estimated intelligence Insight: + poor insight Judgement: + poor judgement Vital Signs (Past 24 Hours) Last Vital Signs Temp 37.2 C 06/19/20 20:00 Pulse 92 H 06/19/20 06:41 Resp 18 06/19/20 06:41 BP 149/93 H 06/19/20 06:41 Pulse Ox 99 06/16/20 23:03 Results & Data ([facility]) Current Inpatient Medications Current Inpatient Medications: Current Inpatient Medications Acetaminophen (Acetaminophen 325 Mg Tab) 650 mg PO Q4H PRN PRN Reason: Headache or Minor Fever Stop: 07/16/20 22:51 Last Admin: 06/19/20 23:30 Dose: 650 mg Documented by: Al Hydrox/Mg Hydrox/Simethicone (Aluminum/Magnesium Susp 30 Ml Udc) 30 ml PO Q4H PRN PRN Reason: GI Upset Stop: 07/16/20 22:51 Aspirin (Aspirin 81 Mg Ectab) 81 mg PO DAILY DONNIE Stop: 07/18/20 08:59 Last Admin: 06/20/20 08:39 Dose: 81 mg Documented by: Atorvastatin Calcium (Atorvastatin 20 Mg Tab) 20 mg PO HS DONNIE Stop: 07/17/20 21:59 Last Admin: 06/19/20 20:25 Dose: 20 mg Documented by: Benztropine Mesylate (Benztropine Mesylate 1 Mg Tab) 1 mg PO BID DONNIE Stop: 07/17/20 20:59 Last Admin: 06/20/20 08:39 Dose: 1 mg Documented by: Bismuth Subsalicylate (Bismuth Subsalicylate Liqd 236 Ml) 15 ml PO PRN PRN PRN Reason: Loose Stool Stop: 07/16/20 22:51 Cariprazine (Cariprazine Hcl) 1 ea PO DAILY DONNIE Stop: 07/18/20 08:59 Last Admin: 06/20/20 08:39 Dose: 1 ea Documented by: Doxepin HCl (Doxepin Hcl 50 Mg Capsule) 200 mg PO HS PRN PRN Reason: Sleep Stop: 07/17/20 11:58 Last Admin: 06/19/20 23:43 Dose: 200 mg Documented by: Gabapentin (Gabapentin 100 Mg Cap) 100 mg PO TID DONNIE Stop: 07/17/20 13:59 Last Admin: 06/20/20 08:39 Dose: 100 mg Documented by: Hydroxyzine HCl (Hydroxyzine Hcl 25 Mg Tab) 25 mg PO Q4H PRN PRN Reason: Anxiety Stop: 07/16/20 22:51 Last Admin: 06/19/20 03:34 Dose: 25 mg Documented by: Hydroxyzine HCl (Hydroxyzine Hcl 25 Mg Tab) 50 mg PO HS DONNIE Stop: 07/16/20 22:59 Last Admin: 06/19/20 20:27 Dose: 50 mg Documented by: Lamotrigine (Lamotrigine 100 Mg Tab) 100 mg PO HS [facility] Stop: 07/19/20 21:59 Last Admin: 06/19/20 20:25 Dose: 100 mg Documented by: Levothyroxine Sodium (Levothyroxine Sodium 100 Mcg Tablet) 100 mcg PO DAILYBB DONNIE Stop: 07/18/20 07:59 Last Admin: 06/20/20 08:01 Dose: 100 mcg Documented by: Magnesium Hydroxide (Magnesium Hydroxide Susp 30 Ml Udc) 30 ml PO DAILY PRN PRN Reason: Constipation Stop: 07/16/20 22:51 Propranolol HCl (Propranolol Hcl 10 Mg Tab) 10 mg PO BID DONNIE Stop: 07/17/20 20:59 Last Admin: 06/20/20 08:39 Dose: 10 mg Documented by: Sodium Chloride (Sodium Chloride 0.65% Na Soln 45 Ml ([place])) 1 - 2 sprays NA PRN PRN PRN Reason: Nasal Dryness/Congestion Stop: 07/16/20 22:51 Temazepam (Temazepam 15 Mg Capsule) 30 mg PO HSZ DONNIE Stop: 07/17/20 21:59 Last Admin: 06/19/20 20:26 Dose: 30 mg Documented by: Mental Health & Subst Abuse Tx Psychiatrist Name of Psychiatrist: Tyra Redmond Psychiatrist's Date of Appointment with Psychiatrist: 07/23/20 Time of Appointment with Psychiatrist: [id number] Psychiatric Appointment Comment: [id number] [facility] Post Discharge Appointments Primary Care Physician Name Of Family Doctor: Jorge Spears Primary [facility] Date of Appointment with PCP: 06/26/20 Time of Appointment with PCP: 10:20 a.m. Provider Appointment Comment: [facility] Neurologist Name of Neurologist: MARITZA Li Neurologist's Date of Appointment with Neurologist: 08/20/20 Time of Appointment with Neurologist: 10:30 a.m. Neurology Appointment Comment: [address] Contact Information Discharge Discharge Address: [address] [place] [address] [place] [address] (1) Psychosis Psychosis type: unspecified psychosis type Qualified Code(s): F29 - Unspecified psychosis not due to a substance or known physiological condition
[2020-06-20] MEDS: FLUoxetine HCL 10 MG CAP PO SCH (10:26)
[2020-06-20] MEDS: hydrOXYzine HCl 25 MG TAB PO PRN (15:57)
[2020-06-20] MEDS: lamoTRIgine 100 MG TAB PO SCH (21:14)
[2020-06-20] MEDS: TEMAZEPAM 15 MG CAPSULE PO SCH (21:15)
[2020-06-20] MEDS: ATORVASTATIN 20 MG TAB PO SCH (21:15)
[2020-06-20] MEDS: hydrOXYzine HCl 25 MG TAB PO SCH (21:16)
[2020-06-21] MEDS: LEVOTHYROXINE SODIUM 100 MCG TABLET PO SCH (07:22)
[2020-06-21] MEDS: ASPIRIN 81 MG ECTAB PO SCH (08:00)
[2020-06-21] MEDS: FLUoxetine HCL 10 MG CAP PO SCH (08:00)
[2020-06-21] MEDS: PROPRANOLOL HCL 10 MG TAB PO SCH ×2 (08:00→20:17)
[2020-06-21] MEDS: CARIPRAZINE HCL PO SCH (08:00)
[2020-06-21] MEDS: BENZTROPINE MESYLATE 1 MG TAB PO SCH ×2 (08:00→20:19)
[2020-06-21] MEDS: GABAPENTIN 100 MG CAP PO SCH ×3 (08:00→20:19)
[2020-06-21] MEDS: hydrOXYzine HCl 25 MG TAB PO PRN (08:14)
--- NOTE | 2020-06-21 11:14 | Psychiatric Progress Note ---
Date of Service June 21, 2020 Impression / Recommendations Impression 60-year-old female with a history of bipolar disorder type I, tardive dyskinesia, and decompensation over the past month and a half with impaired memory, multiple falls, dysarthria, and hallucinations. She had multiple ER visits at the end of April for falls and physical weakness, and due to lithium toxicity her lithium was discontinued, and due to EPS and tardive dyskinesia, Latuda was discontinued, and she was started on lamotrigine. Although lamotrigine was started at the end of April, it was just increased to 50 mg daily 06/06, and Vraylar 1.5 mg added. Her son brought her into the ER due to increasing confusion, incontinence, falls, and hallucinations. She appears delirious, but will need ongoing monitoring to clarify diagnosis and etiology. We are continuing standard titration of lamotrigine and attempting to limit overuse of antipsychotic medications given the patient's significant TD. Pt continues to be delusional and paranoid, and would not be able to tolerate the stress of community re-entry at this time. Reviewed. Patient appears almost catatonic and is tortured by paranoia. Gait is somewhat wide based. Will check past imaging, would not be able to tolerate additional w/u for [facility] at this time. (1) Psychosis: 2/2 -complicated case, primary diagnosis unclear to me at this point. 2- month history of frequent falls, weakness, and abnormal involuntary movements. Hallucinations with fairly acute onset over the past couple of weeks, as well as memory impairment and significant disorganization on exam today. Minimal evidence of mood episode on my exam, but her outpatient clinician noted symptoms of depression at her last visit a week and a half ago. It would be very helpful to be able to monitor her symptoms around the clock. Differential includes delirium, mood related psychosis, cognitive disorder, or primary thought disorder. -Lamotrigine started a little over a month ago, and just increased to 50 mg daily a week and a half ago. We will continue the standard titration. Vraylar just started about 1 and half weeks ago, will continue 1.5 mg daily. 2/3 - Outpatient records reviewed and care coordinated as above. - Continue Vraylar 1.5mg daily. Fasting labs were checked 11/2019: TG 153, Hgb A1C 5.8% (est ave glucose 120). Will hold off on titrating Vraylar due to her tardive dyskinesia and fact that symptoms are improving. - AIMS today is 10; 3 for tongue movements, 2 for foot movements, 3 for overall severity, and 2 for patient awareness/mild distress. - Patient is slightly more organized in her thinking and speech today, oriented to self and place, but not time. Still confused, unable to find her room, requiring frequent redirection. She is demonstrating paranoia, sometimes directed at staff, but responded well to reassurance, and focus on her distressing emotions. 2/4 - Continue medication regimen as above, lamotrigine increasing to 100mg this evening. - Pt continues to be rather confused, but also paranoid. She continues to suggest that staff is talking about her, but has more recently been convinced that several family members are being locked in the various offices on the unit. - Continue attempt to limit antipsychotic medications as able, patient continues to respond well to redirection and reassurance from staff. 2 -The patient remains confused and floridly psychotic. Her delusions are mood congruent with depression. For example, today she tells me that she is to be punished because she has "killed [her] mother and father, and everyone in the family." She is also tearful and sobs through much of today's encounter. She also is experiencing auditory hallucinations that are consistent with the content of the delusions. -She appears not to be oriented to month or year. However, assessment of cognitive functioning is somewhat difficult because the patient is largely mute and is very quickly distracted by what appears to be auditory hallucinations. -The patient is able to tell us that her diagnosis is bipolar disorder and that she is in the hospital being treated for a mental illness. Although she claims to not know what medication she is currently taking, she was able to answer several questions regarding what medication she has or has not taken in the past. Today, reports that she has taken Prozac in the past and that has helped when she is depressed, at least to some extent. 2--reviewed past med trials, hesitant to use Haldol or thorazine given her TD and fall risk with latter. She refuses anyway. Did pill counts to confirm started date of Vraylar >2 weeks ago, will increase to 3 mg. Benzos are often helpful for catatonic features but need to watch gait. Start Ativan 0.5 mg TID prn and evaluate response/gait. d/c Sinequan prn as high dose and now on Prozac. d/c Vistaril given anticholinergic and also on Cogentin. Consider Trilafon if no immediate improvement on higher dose of Vraylar. (2) Bipolar 1 disorder: 2/2 - Historical diagnosis, previous admission for alison. Recent medication adjustments made including discontinuing lithium and starting Vraylar and lamotrigine. Continue home meds for now while gathering additional information, spoke with Tyra Higgins to coordinate care. - Referring for BCM through [facility]. 2 -patient appears anxious and depressed today, son expresses concerns that she has been more depressed lately, which he attributes to her loss of independence and marital discord. Continue titration of lamotrigine, increase to 100mg daily tomorrow. 06/19 - Lamotrigine to increase to 100mg this evening - continue standard titration schedule to target mood concerns - Patient continues to present as primarily depressed and anxiety, frequently tearful and distressed on the unit - though much of this is likely related to a reaction to current psychotic symptoms. 06/20 -The patient continues to appear anxious and depressed. -She appears to be tolerating the titration of lamotrigine. -Sleep remains suboptimal. Appetite remains suboptimal. -I will offer the patient a trial of fluoxetine 10 mg daily with caution, given her diagnosis of bipolar disorder. She is currently taking 2 mood stabilizing agents. 06/21 Reviewed. (3) Tardive dyskinesia: 06/17 -monitor abnormal involuntary movements, consider trial of Ingrezza, although I believe it is nonformulary -Consider neurology consult for assistance with increase in falls, weakness, and abnormal movements -she was apparently referred to [facility] 4 months ago, and her appointment is sometime this month. 2/3 -patient's gait has been steady since admission, without falls. She is not demonstrating obvious signs of weakness here, is ambulating, getting in and out of chairs, and performing ADLs without difficulty. She reportedly has an outpatient neurology appointment next week, will clarify that and may not need inpatient consultation 06/21--reviewed. Risk Factors Assessment Male: No : Yes Health Problems: Yes Mental Health Diagnoses: Yes Substance Use Disorders: No Previous Psychiatric Hospitalization: Yes Hopelessness: No Smoker: No Protective Factors Assessment : Yes Responsible for Young Children: No Employed: No Supportive Family: Yes Good Rapport with Provider: Yes Interval History Identifying Information ALVARO FRAIRE is a 60-year-old F who currently lives in [place] with her , has a history of bipolar disorder type I, and was admitted on 06/16/20 22:11 on a 201 voluntary commitment for psychosis. Chief Complaint "they are going to kill me". Review of Systems Sleep Information Total Hours of Sleep: 7 Sleep Comments: Patient reported that she slept well Meal Information Percent Meal Consumed - Breakfast: 0 Percent Meal Consumed - Lunch: 75 Percent Meal Consumed - Dinner: 10 Nutrition Comment: pt. only orders [employer]; states she doesn't ususally eat breakfast but plans to eat lunch Subjective Subjective Patient was seen & assessed and interval progress reviewed with nursing and social work. has reported seeing guns, think she sees family outside of the unit so was put on elopement precautions. falls precautions given falls history and her wandering around unit. She did sleep 7 hrs last night. Received main prn (vistaril) this am. Walking with me she is somewhat unsteady, significant tongue movements of TD, continues to look over her shoulder and not understand boundaries. Physical Exam Psychiatric Orientation: alert and oriented to person Apperance: + disheveled Eye Contact: + poor eye contact oral TD speech slow, articulation limited by tD Affect: + depressed affect Mood: + anxious mood Thought Process: + thought blocking and + concrete thought process Thought Content: + paranoid Suicidal Thoughts: denies suicidal thoughts Homicidal Thoughts: denies homicidal thoughts Hallucinations: + auditory hallucinations and + visual hallucinations Cognition: + attention not intact Insight: + poor insight Judgement: + poor judgement Vital Signs (Past 24 Hours) Last Vital Signs Temp 36.4 C L 06/21/20 06:12 Pulse 86 06/21/20 06:13 Resp 17 06/21/20 06:12 BP 116/81 06/21/20 06:13 Pulse Ox 99 06/16/20 23:03 Results & Data ([facility]) Current Inpatient Medications Current Inpatient Medications: Current Inpatient Medications Acetaminophen (Acetaminophen 325 Mg Tab) 650 mg PO Q4H PRN PRN Reason: Headache or Minor Fever Stop: 07/16/20 22:51 Last Admin: 06/19/20 23:30 Dose: 650 mg Documented by: Al Hydrox/Mg Hydrox/Simethicone (Aluminum/Magnesium Susp 30 Ml Udc) 30 ml PO Q4H PRN PRN Reason: GI Upset Stop: 07/16/20 22:51 Aspirin (Aspirin 81 Mg Ectab) 81 mg PO DAILY DONNIE Stop: 07/18/20 08:59 Last Admin: 06/21/20 08:00 Dose: 81 mg Documented by: Atorvastatin Calcium (Atorvastatin 20 Mg Tab) 20 mg PO HS DONNIE Stop: 07/17/20 21:59 Last Admin: 06/20/20 21:15 Dose: 20 mg Documented by: Benztropine Mesylate (Benztropine Mesylate 1 Mg Tab) 1 mg PO BID DONNIE Stop: 07/17/20 20:59 Last Admin: 06/21/20 08:00 Dose: 1 mg Documented by: Bismuth Subsalicylate (Bismuth Subsalicylate Liqd 236 Ml) 15 ml PO PRN PRN PRN Reason: Loose Stool Stop: 07/16/20 22:51 Cariprazine (Cariprazine Hcl) 2 ea PO DAILY DONNIE Stop: 07/22/20 08:59 Fluoxetine HCl (Fluoxetine Hcl 10 Mg Cap) 10 mg PO QAM [facility] Stop: 07/20/20 10:14 Last Admin: 06/21/20 08:00 Dose: 10 mg Documented by: Gabapentin (Gabapentin 100 Mg Cap) 100 mg PO TID DONNIE Stop: 07/17/20 13:59 Last Admin: 06/21/20 08:00 Dose: 100 mg Documented by: Lamotrigine (Lamotrigine 100 Mg Tab) 100 mg PO [facility] Stop: 07/19/20 21:59 Last Admin: 06/20/20 21:14 Dose: 100 mg Documented by: Levothyroxine Sodium (Levothyroxine Sodium 100 Mcg Tablet) 100 mcg PO DAILYBB [facility] Stop: 07/18/20 07:59 Last Admin: 06/21/20 07:22 Dose: 100 mcg Documented by: Magnesium Hydroxide (Magnesium Hydroxide Susp 30 Ml Udc) 30 ml PO DAILY PRN PRN Reason: Constipation Stop: 07/16/20 22:51 Non-Formulary Medication (Caripipra) 1 tab PO ONE ONE Stop: 06/21/20 11:00 Propranolol HCl (Propranolol Hcl 10 Mg Tab) 10 mg PO BID DONNIE Stop: 07/17/20 20:59 Last Admin: 06/21/20 08:00 Dose: 10 mg Documented by: Sodium Chloride (Sodium Chloride 0.65% Na Soln 45 Ml ([place])) 1 - 2 sprays NA PRN PRN PRN Reason: Nasal Dryness/Congestion Stop: 07/16/20 22:51 Temazepam (Temazepam 15 Mg Capsule) 30 mg PO HSZ DONNIE Stop: 07/17/20 21:59 Last Admin: 06/20/20 21:15 Dose: 30 mg Documented by: Mental Health & Subst Abuse Tx Psychiatrist Name of Psychiatrist: Tyra Redmond Psychiatrist's Date of Appointment with Psychiatrist: 07/23/20 Time of Appointment with Psychiatrist: [id number] Psychiatric Appointment Comment: [facility] Post Discharge Appointments Primary Care Physician Name Of Family Doctor: Jorge [facility] Date of Appointment with PCP: 06/26/20 Time of Appointment with PCP: 10:20 a.m. Provider Appointment Comment: [address] [place] [address] Neurologist Name of Neurologist: MARITZA Li Neurologist's Date of Appointment with Neurologist: 08/20/20 Time of Appointment with Neurologist: 10:30 a.m. Neurology Appointment Comment: [facility] Contact Information Discharge Discharge Address: [address] [place] [address] [place] [address] (1) Psychosis Psychosis type: unspecified psychosis type Qualified Code(s): F29 - Unspecified psychosis not due to a substance or known physiological condition
[2020-06-21] MEDS ORDERED: CARIPRAZINE HCL PO ONE (12:00)
[2020-06-21] MEDS: LORazepam 0.5 MG TAB PO PRN (15:08)
[2020-06-21] MEDS: ATORVASTATIN 20 MG TAB PO SCH (20:17)
[2020-06-21] MEDS: lamoTRIgine 100 MG TAB PO SCH (20:19)
[2020-06-21] MEDS: TEMAZEPAM 15 MG CAPSULE PO SCH (20:19)
[2020-06-22] MEDS: LORazepam 0.5 MG TAB PO PRN (06:43)
[2020-06-22] MEDS: LEVOTHYROXINE SODIUM 100 MCG TABLET PO SCH (07:21)
[2020-06-22] MEDS: ASPIRIN 81 MG ECTAB PO SCH (07:22)
[2020-06-22] MEDS: BENZTROPINE MESYLATE 1 MG TAB PO SCH ×2 (07:22→20:48)
[2020-06-22] MEDS: GABAPENTIN 100 MG CAP PO SCH ×3 (07:23→20:48)
[2020-06-22] MEDS: PROPRANOLOL HCL 10 MG TAB PO SCH ×2 (07:23→20:48)
[2020-06-22] MEDS: FLUoxetine HCL 10 MG CAP PO SCH (07:24)
[2020-06-22] MEDS: CARIPRAZINE HCL PO SCH (07:24)
[2020-06-22] MEDS ORDERED: LORazepam 0.5 MG TAB PO STA (08:49)
--- NOTE | 2020-06-22 09:43 | Psychiatric Progress Note ---
Date of Service June 22, 2020 Impression / Recommendations Impression 60-year-old female with a history of bipolar disorder type I, tardive dyskinesia, and decompensation over the past month and a half with impaired memory, multiple falls, dysarthria, and hallucinations. She had multiple ER visits at the end of April for falls and physical weakness, and due to lithium toxicity her lithium was discontinued, and due to EPS and tardive dyskinesia, Latuda was discontinued, and she was started on lamotrigine. Although lamotrigine was started at the end of April, it was just increased to 50 mg daily 06/06, and Vraylar 1.5 mg added. Her son brought her into the ER due to increasing confusion, incontinence, falls, and hallucinations. She appears delirious, but will need ongoing monitoring to clarify diagnosis and etiology. We are continuing standard titration of lamotrigine and attempting to limit overuse of antipsychotic medications given the patient's significant TD. Pt continues to be delusional and paranoid, and would not be able to tolerate the stress of community re-entry at this time. Reviewed. Patient appears almost catatonic and is tortured by paranoia. 06/22/20 Reviewed MRI normal in Dec, outpatient notes reviewed and has been referred to neurology. Reviewed outpatient notes from [facility]. (1) Psychosis: 2/2 -complicated case, primary diagnosis unclear to me at this point. 2- month history of frequent falls, weakness, and abnormal involuntary movements. Hallucinations with fairly acute onset over the past couple of weeks, as well as memory impairment and significant disorganization on exam today. Minimal evidence of mood episode on my exam, but her outpatient clinician noted symptoms of depression at her last visit a week and a half ago. It would be very helpful to be able to monitor her symptoms around the clock. Differential includes delirium, mood related psychosis, cognitive disorder, or primary thought disorder. -Lamotrigine started a little over a month ago, and just increased to 50 mg daily a week and a half ago. We will continue the standard titration. Vraylar just started about 1 and half weeks ago, will continue 1.5 mg daily. 2/3 - Outpatient records reviewed and care coordinated as above. - Continue Vraylar 1.5mg daily. Fasting labs were checked 11/2019: TG 153, Hgb A1C 5.8% (est ave glucose 120). Will hold off on titrating Vraylar due to her tardive dyskinesia and fact that symptoms are improving. - AIMS today is 10; 3 for tongue movements, 2 for foot movements, 3 for overall severity, and 2 for patient awareness/mild distress. - Patient is slightly more organized in her thinking and speech today, oriented to self and place, but not time. Still confused, unable to find her room, requiring frequent redirection. She is demonstrating paranoia, sometimes directed at staff, but responded well to reassurance, and focus on her distressing emotions. 2/4 - Continue medication regimen as above, lamotrigine increasing to 100mg this evening. - Pt continues to be rather confused, but also paranoid. She continues to suggest that staff is talking about her, but has more recently been convinced that several family members are being locked in the various offices on the unit. - Continue attempt to limit antipsychotic medications as able, patient continues to respond well to redirection and reassurance from staff. 2 -The patient remains confused and floridly psychotic. Her delusions are mood congruent with depression. For example, today she tells me that she is to be punished because she has "killed [her] mother and father, and everyone in the family." She is also tearful and sobs through much of today's encounter. She also is experiencing auditory hallucinations that are consistent with the content of the delusions. -She appears not to be oriented to month or year. However, assessment of cognitive functioning is somewhat difficult because the patient is largely mute and is very quickly distracted by what appears to be auditory hallucinations. -The patient is able to tell us that her diagnosis is bipolar disorder and that she is in the hospital being treated for a mental illness. Although she claims to not know what medication she is currently taking, she was able to answer several questions regarding what medication she has or has not taken in the past. Today, reports that she has taken Prozac in the past and that has helped when she is depressed, at least to some extent. 2--reviewed past med trials, hesitant to use Haldol or thorazine given her TD and fall risk with latter. She refuses anyway. Did pill counts to confirm started date of Vraylar >2 weeks ago, will increase to 3 mg. Benzos are often helpful for catatonic features but need to watch gait. Start Ativan 0.5 mg TID prn and evaluate response/gait. d/c Sinequan prn as high dose and now on Prozac. d/c Vistaril given anticholinergic and also on Cogentin. Consider Trilafon if no immediate improvement on higher dose of Vraylar. 06/21--improved slightly today, will add standing order Ativan as tolerating 1 mg BID (am and evening meal) and decrease Restoril given am confusion. It is still possible that anticholinergic effects of Vistaril and ?Cogentin contributing to confusion. Will reassess Cogentin dosing tomorrow. (2) Bipolar 1 disorder: 2/ - Historical diagnosis, previous admission for alison. Recent medication adjustments made including discontinuing lithium and starting Vraylar and lamotrigine. Continue home meds for now while gathering additional information, spoke with Tyra Higgins to coordinate care. - Referring for [facility] through [facility]. 2 -patient appears anxious and depressed today, son expresses concerns that she has been more depressed lately, which he attributes to her loss of independence and marital discord. Continue titration of lamotrigine, increase to 100mg daily tomorrow. 06/19 - Lamotrigine to increase to 100mg this evening - continue standard titration schedule to target mood concerns - Patient continues to present as primarily depressed and anxiety, frequently tearful and distressed on the unit - though much of this is likely related to a reaction to current psychotic symptoms. 06/20 -The patient continues to appear anxious and depressed. -She appears to be tolerating the titration of lamotrigine. -Sleep remains suboptimal. Appetite remains suboptimal. -I will offer the patient a trial of fluoxetine 10 mg daily with caution, given her diagnosis of bipolar disorder. She is currently taking 2 mood stabilizing agents. 06/21 Reviewed. (3) Tardive dyskinesia: 06/17 -monitor abnormal involuntary movements, consider trial of Ingrezza, although I believe it is nonformulary -Consider neurology consult for assistance with increase in falls, weakness, and abnormal movements -she was apparently referred to [facility] 4 months ago, and her appointment is sometime this month. 2/3 -patient's gait has been steady since admission, without falls. She is not demonstrating obvious signs of weakness here, is ambulating, getting in and out of chairs, and performing ADLs without difficulty. She reportedly has an outpatient neurology appointment next week, will clarify that and may not need inpatient consultation 06/21--reviewed. Risk Factors Assessment Male: No : Yes Health Problems: Yes Mental Health Diagnoses: Yes Substance Use Disorders: No Previous Psychiatric Hospitalization: Yes Hopelessness: No Smoker: No Protective Factors Assessment : Yes Responsible for Young Children: No Employed: No Supportive Family: Yes Good Rapport with Provider: Yes Interval History Identifying Information ALVARO FRAIRE is a 60-year-old F who currently lives in [place] with her , has a history of bipolar disorder type I, and was admitted on 06/16/20 22:11 on a 201 voluntary commitment for psychosis.Reviewed 06/22. Chief Complaint "why do I see them here and there", disorganized, unclear if referring to kids or people that might hurt her kids. Review of Systems Sleep Information Total Hours of Sleep: 8 Sleep Comments: Patient reported that she slept well Meal Information Percent Meal Consumed - Breakfast: 0 Percent Meal Consumed - Lunch: 10 Percent Meal Consumed - Dinner: 100 Nutrition Comment: pt. only orders [employer] Juice; states she doesn't ususally eat breakfast but plans to eat lunch Subjective Subjective Patient was seen & assessed and interval progress reviewed with nursing. Slept better overnight. She is disorganized in the early am in particular. wanders but gait improved, no longer wide based and teetering. Continues to refuse breakfast. TD is baseline. She is not able to express if her wandering is akathisia vs paranoia. Less looking over shoulder today. Physical Exam Psychiatric Orientation: alert Apperance: + disheveled Eye Contact: + fair eye contact gait improved speech is more intelligible Affect: + depressed affect Mood: + anxious mood Thought Process: + perseveration Thought Content: + paranoid and + delusions Suicidal Thoughts: denies suicidal thoughts Homicidal Thoughts: denies homicidal thoughts Hallucinations: + visual hallucinations; no auditory hallucinations Cognition: + attention not intact Estimated Intelligence: consistent with education level Insight: + poor insight Judgement: + poor judgement Vital Signs (Past 24 Hours) Last Vital Signs Temp 36.8 C 06/22/20 06:22 Pulse 92 H 06/22/20 06:22 Resp 17 06/22/20 06:22 BP 149/96 H 06/22/20 06:22 Pulse Ox 99 06/16/20 23:03 Results & Data ([facility]) Current Inpatient Medications Current Inpatient Medications: Current Inpatient Medications Acetaminophen (Acetaminophen 325 Mg Tab) 650 mg PO Q4H PRN PRN Reason: Headache or Minor Fever Stop: 07/16/20 22:51 Last Admin: 06/19/20 23:30 Dose: 650 mg Documented by: Al Hydrox/Mg Hydrox/Simethicone (Aluminum/Magnesium Susp 30 Ml Udc) 30 ml PO Q4H PRN PRN Reason: GI Upset Stop: 07/16/20 22:51 Aspirin (Aspirin 81 Mg Ectab) 81 mg PO DAILY DONNIE Stop: 07/18/20 08:59 Last Admin: 06/22/20 07:22 Dose: 81 mg Documented by: Atorvastatin Calcium (Atorvastatin 20 Mg Tab) 20 mg PO HS [facility] Stop: 07/17/20 21:59 Last Admin: 06/21/20 20:17 Dose: 20 mg Documented by: Benztropine Mesylate (Benztropine Mesylate 1 Mg Tab) 1 mg PO BID DONNIE Stop: 07/17/20 20:59 Last Admin: 06/22/20 07:22 Dose: 1 mg Documented by: Bismuth Subsalicylate (Bismuth Subsalicylate Liqd 236 Ml) 15 ml PO PRN PRN PRN Reason: Loose Stool Stop: 07/16/20 22:51 Cariprazine (Cariprazine Hcl) 2 ea PO DAILY DONNIE Stop: 07/22/20 08:59 Last Admin: 06/22/20 07:24 Dose: 2 ea Documented by: Fluoxetine HCl (Fluoxetine Hcl 10 Mg Cap) 10 mg PO QAM DONNIE Stop: 07/20/20 10:14 Last Admin: 06/22/20 07:24 Dose: 10 mg Documented by: Gabapentin (Gabapentin 100 Mg Cap) 100 mg PO TID DONNIE Stop: 07/17/20 13:59 Last Admin: 06/22/20 07:23 Dose: 100 mg Documented by: Lamotrigine (Lamotrigine 100 Mg Tab) 100 mg PO HS DONNIE Stop: 07/19/20 21:59 Last Admin: 06/21/20 20:19 Dose: 100 mg Documented by: Levothyroxine Sodium (Levothyroxine Sodium 100 Mcg Tablet) 100 mcg PO DAILYBB DONNIE Stop: 07/18/20 07:59 Last Admin: 06/22/20 07:21 Dose: 100 mcg Documented by: Lorazepam (Lorazepam 0.5 Mg Tab) 0.5 mg PO TID PRN PRN Reason: anxiety Stop: 07/21/20 11:00 Last Admin: 06/22/20 06:43 Dose: 0.5 mg Documented by: Lorazepam (Lorazepam 1 Mg Tab) 1 mg PO BID17 DONNIE Stop: 07/22/20 16:59 Magnesium Hydroxide (Magnesium Hydroxide Susp 30 Ml Udc) 30 ml PO DAILY PRN PRN Reason: Constipation Stop: 07/16/20 22:51 Propranolol HCl (Propranolol Hcl 10 Mg Tab) 10 mg PO BID DONNIE Stop: 07/17/20 20:59 Last Admin: 06/22/20 07:23 Dose: 10 mg Documented by: Sodium Chloride (Sodium Chloride 0.65% Na Soln 45 Ml (Bacon)) 1 - 2 sprays NA PRN PRN PRN Reason: Nasal Dryness/Congestion Stop: 07/16/20 22:51 Temazepam (Temazepam 15 Mg Capsule) 15 mg PO HSZ DONNIE Stop: 07/22/20 21:59 Mental Health & Subst Abuse Tx Psychiatrist Name of Psychiatrist: Tyra Redmond Psychiatrist's Date of Appointment with Psychiatrist: 07/23/20 Time of Appointment with Psychiatrist: [id number] Psychiatric Appointment Comment: [facility] Post Discharge Appointments Primary Care Physician Name Of Family Doctor: Jorge [facility] Date of Appointment with PCP: 06/26/20 Time of Appointment with PCP: 10:20 a.m. Provider Appointment Comment: [facility] Neurologist Name of Neurologist: MARITZA Li Neurologist's Date of Appointment with Neurologist: 08/20/20 Time of Appointment with Neurologist: 10:30 a.m. Neurology Appointment Comment: [facility] [address] Contact Information Discharge Discharge Address: [address] [place] [address] [place] [address] (1) Psychosis Psychosis type: unspecified psychosis type Qualified Code(s): F29 - Unspecified psychosis not due to a substance or known physiological condition
[2020-06-22] MEDS: LORazepam 1 MG TAB PO SCH (17:10)
[2020-06-22] MEDS: lamoTRIgine 100 MG TAB PO SCH (20:48)
[2020-06-22] MEDS: ATORVASTATIN 20 MG TAB PO SCH (20:49)
[2020-06-22] MEDS ORDERED: TEMAZEPAM 15 MG CAPSULE PO SCH (22:00)
[2020-06-23] MEDS: LEVOTHYROXINE SODIUM 100 MCG TABLET PO SCH (07:43)
[2020-06-23] MEDS: ASPIRIN 81 MG ECTAB PO SCH (07:43)
[2020-06-23] MEDS: BENZTROPINE MESYLATE 1 MG TAB PO SCH (07:43)
[2020-06-23] MEDS: FLUoxetine HCL 10 MG CAP PO SCH (07:44)
[2020-06-23] MEDS: GABAPENTIN 100 MG CAP PO SCH ×3 (07:44→20:31)
[2020-06-23] MEDS: PROPRANOLOL HCL 10 MG TAB PO SCH ×2 (07:44→20:30)
[2020-06-23] MEDS: CARIPRAZINE HCL PO SCH (07:45)
[2020-06-23] MEDS: LORazepam 1 MG TAB PO SCH ×2 (07:46→16:12)
--- NOTE | 2020-06-23 09:21 | Psychiatric Progress Note ---
Date of Service June 23, 2020 Impression / Recommendations Impression 60-year-old female with a history of bipolar disorder type I, tardive dyskinesia, and decompensation over the past month and a half with impaired memory, multiple falls, dysarthria, and hallucinations. She had multiple ER visits at the end of April for falls and physical weakness, and due to lithium toxicity her lithium was discontinued, and due to EPS and tardive dyskinesia, Latuda was discontinued, and she was started on lamotrigine. Although lamotrigine was started at the end of April, it was just increased to 50 mg daily 06/06, and Vraylar 1.5 mg added. Her son brought her into the ER due to increasing confusion, incontinence, falls, and hallucinations. She appears delirious, but will need ongoing monitoring to clarify diagnosis and etiology. We are continuing standard titration of lamotrigine and attempting to limit overuse of antipsychotic medications given the patient's significant TD. Pt continues to be delusional and paranoid, and would not be able to tolerate the stress of community re-entry at this time. Reviewed. Patient appears almost catatonic and is tortured by paranoia. 06/22/20 Reviewed MRI normal in Dec, outpatient notes reviewed and has been referred to neurology. Reviewed outpatient notes from [facility]. (1) Psychosis: 2/2 -complicated case, primary diagnosis unclear to me at this point. 2- month history of frequent falls, weakness, and abnormal involuntary movements. Hallucinations with fairly acute onset over the past couple of weeks, as well as memory impairment and significant disorganization on exam today. Minimal evidence of mood episode on my exam, but her outpatient clinician noted symptoms of depression at her last visit a week and a half ago. It would be very helpful to be able to monitor her symptoms around the clock. Differential includes delirium, mood related psychosis, cognitive disorder, or primary thought disorder. -Lamotrigine started a little over a month ago, and just increased to 50 mg daily a week and a half ago. We will continue the standard titration. Vraylar just started about 1 and half weeks ago, will continue 1.5 mg daily. 2/3 - Outpatient records reviewed and care coordinated as above. - Continue Vraylar 1.5mg daily. Fasting labs were checked 11/2019: TG 153, Hgb A1C 5.8% (est ave glucose 120). Will hold off on titrating Vraylar due to her tardive dyskinesia and fact that symptoms are improving. - AIMS today is 10; 3 for tongue movements, 2 for foot movements, 3 for overall severity, and 2 for patient awareness/mild distress. - Patient is slightly more organized in her thinking and speech today, oriented to self and place, but not time. Still confused, unable to find her room, requiring frequent redirection. She is demonstrating paranoia, sometimes directed at staff, but responded well to reassurance, and focus on her distressing emotions. 2/4 - Continue medication regimen as above, lamotrigine increasing to 100mg this evening. - Pt continues to be rather confused, but also paranoid. She continues to suggest that staff is talking about her, but has more recently been convinced that several family members are being locked in the various offices on the unit. - Continue attempt to limit antipsychotic medications as able, patient continues to respond well to redirection and reassurance from staff. 2 -The patient remains confused and floridly psychotic. Her delusions are mood congruent with depression. For example, today she tells me that she is to be punished because she has "killed [her] mother and father, and everyone in the family." She is also tearful and sobs through much of today's encounter. She also is experiencing auditory hallucinations that are consistent with the content of the delusions. -She appears not to be oriented to month or year. However, assessment of cognitive functioning is somewhat difficult because the patient is largely mute and is very quickly distracted by what appears to be auditory hallucinations. -The patient is able to tell us that her diagnosis is bipolar disorder and that she is in the hospital being treated for a mental illness. Although she claims to not know what medication she is currently taking, she was able to answer several questions regarding what medication she has or has not taken in the past. Today, reports that she has taken Prozac in the past and that has helped when she is depressed, at least to some extent. 2--reviewed past med trials, hesitant to use Haldol or thorazine given her TD and fall risk with latter. She refuses anyway. Did pill counts to confirm started date of Vraylar >2 weeks ago, will increase to 3 mg. Benzos are often helpful for catatonic features but need to watch gait. Start Ativan 0.5 mg TID prn and evaluate response/gait. d/c Sinequan prn as high dose and now on Prozac. d/c Vistaril given anticholinergic and also on Cogentin. Consider Trilafon if no immediate improvement on higher dose of Vraylar. 06/21--improved slightly today, will add standing order Ativan as tolerating 1 mg BID (am and evening meal) and decrease Restoril given am confusion. It is still possible that anticholinergic effects of Vistaril and ?Cogentin contributing to confusion. Will reassess Cogentin dosing tomorrow. 06/22--change Cogentin to prn, offer Trilafon BID prn to assess tolerability for additional coverage during Vraylar trial. D/C Restoril after tonights dose. This will limit polypharmacy, case reviewed with Dr. Marks due to complexity and reconfirm impression of ongoing slow improvements. Will seek input from neurology on additional assessment here for falls and weakness with incontinence though gait and organization improving. Patient is limited historian/limited cooperation with neuro exam given psychosis. (2) Bipolar 1 disorder: 2/ - Historical diagnosis, previous admission for alison. Recent medication adjustments made including discontinuing lithium and starting Vraylar and lamotrigine. Continue home meds for now while gathering additional information, spoke with Tyra Higgins to coordinate care. - Referring for [facility] through [facility]. 2/3 -patient appears anxious and depressed today, son expresses concerns that she has been more depressed lately, which he attributes to her loss of independence and marital discord. Continue titration of lamotrigine, increase to 100mg daily tomorrow. 2 - Lamotrigine to increase to 100mg this evening - continue standard titration schedule to target mood concerns - Patient continues to present as primarily depressed and anxiety, frequently tearful and distressed on the unit - though much of this is likely related to a reaction to current psychotic symptoms. 06/20 -The patient continues to appear anxious and depressed. -She appears to be tolerating the titration of lamotrigine. -Sleep remains suboptimal. Appetite remains suboptimal. -I will offer the patient a trial of fluoxetine 10 mg daily with caution, given her diagnosis of bipolar disorder. She is currently taking 2 mood stabilizing agents. 2 Reviewed. (3) Tardive dyskinesia: / -monitor abnormal involuntary movements, consider trial of Ingrezza, although I believe it is nonformulary -Consider neurology consult for assistance with increase in falls, weakness, and abnormal movements -she was apparently referred to [facility] 4 months ago, and her appointment is sometime this month. / -patient's gait has been steady since admission, without falls. She is not demonstrating obvious signs of weakness here, is ambulating, getting in and out of chairs, and performing ADLs without difficulty. She reportedly has an outpatient neurology appointment next week, will clarify that and may not need inpatient consultation 06/21--reviewed. Risk Factors Assessment Male: No : Yes Health Problems: Yes Mental Health Diagnoses: Yes Substance Use Disorders: No Previous Psychiatric Hospitalization: Yes Hopelessness: No Smoker: No Protective Factors Assessment : Yes Responsible for Young Children: No Employed: No Supportive Family: Yes Good Rapport with Provider: Yes Interval History Identifying Information ALVARO FRAIRE is a 60-year-old F who currently lives in [place] with her , has a history of bipolar disorder type I, and was admitted on 06/16/20 22:11 on a 201 voluntary commitment for psychosis.Reviewed 06/22. Chief Complaint "Are you going to kill me?". Review of Systems Sleep Information Total Hours of Sleep: 7 Sleep Comments: pt on q-15 minute checks Meal Information Percent Meal Consumed - Breakfast: 0 Percent Meal Consumed - Lunch: 10 Percent Meal Consumed - Dinner: 100 Nutrition Comment: pt. only orders [employer]; states she doesn't ususally eat breakfast but plans to eat lunch Subjective Subjective Patient was seen & assessed and interval progress reviewed with treatment team. appears way more alert per staff, gait improving, thoughts more organized but remains paranoid about "something bad happening". Tells staff they are going to shoot her kids or kittens, no longer looking over shoulder but didn't want me to enter her room. Less wandering. She reports being better able to verbalize her thoughts but "I'm still scared". Slept 7 hrs. Physical Exam Psychiatric Orientation: alert, oriented to person and oriented to place Apperance: appropriately dressed and appeared stated age Eye Contact: + fair eye contact Motor Behavior: steady gait and station (ambulating appropriately) and + EPS (TD, significant tongue movements) Affect: + depressed affect and + anxious affect Mood: + depressed mood and + anxious mood Thought Process: + perseveration and + concrete thought process; + thought association not intact Thought Content: + paranoid, + delusions and + persecution Suicidal Thoughts: denies suicidal thoughts Homicidal Thoughts: denies homicidal thoughts Hallucinations: no auditory hallucinations and no visual hallucinations Cognition: language grossly intact; + recent memory not intact, + remote memory not intact and + attention not intact Estimated Intelligence: consistent with education level Insight: + poor insight Judgement: + poor judgement Vital Signs (Past 24 Hours) Last Vital Signs Temp 36.4 C L 06/23/20 06:45 Pulse 84 06/23/20 06:46 Resp 18 06/23/20 06:45 BP 126/84 06/23/20 06:46 Pulse Ox 99 06/16/20 23:03 Results & Data ([facility]) Current Inpatient Medications Current Inpatient Medications: Current Inpatient Medications Acetaminophen (Acetaminophen 325 Mg Tab) 650 mg PO Q4H PRN PRN Reason: Headache or Minor Fever Stop: 07/16/20 22:51 Last Admin: 06/19/20 23:30 Dose: 650 mg Documented by: Al Hydrox/Mg Hydrox/Simethicone (Aluminum/Magnesium Susp 30 Ml Udc) 30 ml PO Q4H PRN PRN Reason: GI Upset Stop: 07/16/20 22:51 Aspirin (Aspirin 81 Mg Ectab) 81 mg PO DAILY PENDING SALE TO [facility] Stop: 07/18/20 08:59 Last Admin: 06/23/20 07:43 Dose: 81 mg Documented by: Atorvastatin Calcium (Atorvastatin 20 Mg Tab) 20 mg PO HS DONNIE Stop: 07/17/20 21:59 Last Admin: 06/22/20 20:49 Dose: 20 mg Documented by: Benztropine Mesylate (Benztropine Mesylate 1 Mg Tab) 1 mg PO BID DONNIE Stop: 07/17/20 20:59 Last Admin: 06/23/20 07:43 Dose: 1 mg Documented by: Bismuth Subsalicylate (Bismuth Subsalicylate Liqd 236 Ml) 15 ml PO PRN PRN PRN Reason: Loose Stool Stop: 07/16/20 22:51 Cariprazine (Cariprazine Hcl) 2 ea PO DAILY DONNIE Stop: 07/22/20 08:59 Last Admin: 06/23/20 07:45 Dose: 2 ea Documented by: Fluoxetine HCl (Fluoxetine Hcl 10 Mg Cap) 10 mg PO QAM PENDING SALE TO [facility] Stop: 07/20/20 10:14 Last Admin: 06/23/20 07:44 Dose: 10 mg Documented by: Gabapentin (Gabapentin 100 Mg Cap) 100 mg PO TID PENDING SALE TO [facility] Stop: 07/17/20 13:59 Last Admin: 06/23/20 07:44 Dose: 100 mg Documented by: Lamotrigine (Lamotrigine 100 Mg Tab) 100 mg PO HS PENDING SALE TO [facility] Stop: 07/19/20 21:59 Last Admin: 06/22/20 20:48 Dose: 100 mg Documented by: Levothyroxine Sodium (Levothyroxine Sodium 100 Mcg Tablet) 100 mcg PO DAILYBB PENDING SALE TO [facility] Stop: 07/18/20 07:59 Last Admin: 06/23/20 07:43 Dose: 100 mcg Documented by: Lorazepam (Lorazepam 0.5 Mg Tab) 0.5 mg PO TID PRN PRN Reason: anxiety Stop: 07/21/20 11:00 Last Admin: 06/22/20 06:43 Dose: 0.5 mg Documented by: Lorazepam (Lorazepam 1 Mg Tab) 1 mg PO BID17 PENDING SALE TO [facility] Stop: 07/22/20 16:59 Last Admin: 06/23/20 07:46 Dose: 1 mg Documented by: Magnesium Hydroxide (Magnesium Hydroxide Susp 30 Ml Udc) 30 ml PO DAILY PRN PRN Reason: Constipation Stop: 07/16/20 22:51 Propranolol HCl (Propranolol Hcl 10 Mg Tab) 10 mg PO BID DONNIE Stop: 07/17/20 20:59 Last Admin: 06/23/20 07:44 Dose: 10 mg Documented by: Sodium Chloride (Sodium Chloride 0.65% Na Soln 45 Ml ([place])) 1 - 2 sprays NA PRN PRN PRN Reason: Nasal Dryness/Congestion Stop: 07/16/20 22:51 Temazepam (Temazepam 15 Mg Capsule) 15 mg PO HSZ PENDING SALE TO [facility] Stop: 07/22/20 21:59 Last Admin: 06/22/20 21:05 Dose: 15 mg Documented by: Mental Health & Subst Abuse Tx Psychiatrist Name of Psychiatrist: Tyra Redmond Psychiatrist's Date of Appointment with Psychiatrist: 07/23/20 Time of Appointment with Psychiatrist: [id number] Psychiatric Appointment Comment: 152 [facility] Post Discharge Appointments Primary Care Physician Name Of Family Doctor: Jorge Spears [facility] Date of Appointment with PCP: 06/26/20 Time of Appointment with PCP: 10:20 a.m. Provider Appointment Comment: [id number] [facility] Neurologist Name of Neurologist: MARITZA Li Neurologist's Date of Appointment with Neurologist: 08/20/20 Time of Appointment with Neurologist: 10:30 a.m. Neurology Appointment Comment: [address] Contact Information Discharge Discharge Address: [address] [place] [address] [place] [address] (1) Psychosis Psychosis type: unspecified psychosis type Qualified Code(s): F29 - Unspecified psychosis not due to a substance or known physiological condition
[2020-06-23] MEDS: PERPHENAZINE 2 MG TABLET PO PRN ×2 (10:48→18:28)
[2020-06-23] MEDS ORDERED: TEMAZEPAM 15 MG CAPSULE PO ONE ×2 (20:28→22:00)
[2020-06-23] MEDS: ATORVASTATIN 20 MG TAB PO SCH (20:31)
[2020-06-23] MEDS: lamoTRIgine 100 MG TAB PO SCH (20:31)
[2020-06-24] MEDS: ASPIRIN 81 MG ECTAB PO SCH (07:36)
[2020-06-24] MEDS: LEVOTHYROXINE SODIUM 100 MCG TABLET PO SCH (07:36)
[2020-06-24] MEDS: PROPRANOLOL HCL 10 MG TAB PO SCH ×2 (07:36→21:50)
[2020-06-24] MEDS: LORazepam 1 MG TAB PO SCH ×4 (07:36→21:50)
[2020-06-24] MEDS: FLUoxetine HCL 10 MG CAP PO SCH (07:37)
[2020-06-24] MEDS: CARIPRAZINE HCL PO SCH (07:37)
[2020-06-24] MEDS: GABAPENTIN 100 MG CAP PO SCH ×3 (07:37→21:50)
[2020-06-24] MEDS: PERPHENAZINE 2 MG TABLET PO PRN (07:56)
[2020-06-24] MEDS: BENZTROPINE MESYLATE 1 MG TAB PO PRN (07:57)
--- NOTE | 2020-06-24 10:37 | Psychiatric Progress Note ---
Date of Service June 24, 2020 Impression / Recommendations Impression 60-year-old female with a history of bipolar disorder type I, tardive dyskinesia, and decompensation over the past month and a half with impaired memory, multiple falls, dysarthria, and hallucinations. She had multiple ER visits at the end of April for falls and physical weakness, and due to lithium toxicity her lithium was discontinued, and due to EPS and tardive dyskinesia, Latuda was discontinued, and she was started on lamotrigine. Although lamotrigine was started at the end of April, it was just increased to 50 mg daily 06/06, and Vraylar 1.5 mg added. Her son brought her into the ER due to increasing confusion, incontinence, falls, and hallucinations. She appears delirious, but will need ongoing monitoring to clarify diagnosis and etiology. We are continuing standard titration of lamotrigine and attempting to limit overuse of antipsychotic medications given the patient's significant TD. Pt continues to be delusional and paranoid, and would not be able to tolerate the stress of community re-entry at this time. Reviewed. Patient appears almost catatonic and is tortured by paranoia. 06/22/20 Reviewed MRI normal in Dec, outpatient notes reviewed and has been referred to neurology. Reviewed outpatient notes from [place]. (1) Psychosis: 2/2 -complicated case, primary diagnosis unclear to me at this point. 2- month history of frequent falls, weakness, and abnormal involuntary movements. Hallucinations with fairly acute onset over the past couple of weeks, as well as memory impairment and significant disorganization on exam today. Minimal evidence of mood episode on my exam, but her outpatient clinician noted symptoms of depression at her last visit a week and a half ago. It would be very helpful to be able to monitor her symptoms around the clock. Differential includes delirium, mood related psychosis, cognitive disorder, or primary thought disorder. -Lamotrigine started a little over a month ago, and just increased to 50 mg daily a week and a half ago. We will continue the standard titration. Vraylar just started about 1 and half weeks ago, will continue 1.5 mg daily. 2/3 - Outpatient records reviewed and care coordinated as above. - Continue Vraylar 1.5mg daily. Fasting labs were checked 11/2019: TG 153, Hgb A1C 5.8% (est ave glucose 120). Will hold off on titrating Vraylar due to her tardive dyskinesia and fact that symptoms are improving. - AIMS today is 10; 3 for tongue movements, 2 for foot movements, 3 for overall severity, and 2 for patient awareness/mild distress. - Patient is slightly more organized in her thinking and speech today, oriented to self and place, but not time. Still confused, unable to find her room, requiring frequent redirection. She is demonstrating paranoia, sometimes d irected at staff, but responded well to reassurance, and focus on her distressing emotions. 2/4 - Continue medication regimen as above, lamotrigine increasing to 100mg this evening. - Pt continues to be rather confused, but also paranoid. She continues to suggest that staff is talking about her, but has more recently been convinced that several family members are being locked in the various offices on the unit. - Continue attempt to limit antipsychotic medications as able, patient continues to respond well to redirection and reassurance from staff. 2 -The patient remains confused and floridly psychotic. Her delusions are mood congruent with depression. For example, today she tells me that she is to be punished because she has "killed [her] mother and father, and everyone in the family." She is also tearful and sobs through much of today's encounter. She also is experiencing auditory hallucinations that are consistent with the content of the delusions. -She appears not to be oriented to month or year. However, assessment of cognitive functioning is somewhat difficult because the patient is largely mute and is very quickly distracted by what appears to be auditory hallucinations. -The patient is able to tell us that her diagnosis is bipolar disorder and that she is in the hospital being treated for a mental illness. Although she claims to not know what medication she is currently taking, she was able to answer several questions regarding what medication she has or has not taken in the past. Today, reports that she has taken Prozac in the past and that has helped when she is depressed, at least to some extent. 06/20--reviewed past med trials, hesitant to use Haldol or thorazine given her TD and fall risk with latter. She refuses anyway. Did pill counts to confirm sta rted date of Vraylar >2 weeks ago, will increase to 3 mg. Benzos are often helpful for catatonic features but need to watch gait. Start Ativan 0.5 mg TID prn and evaluate response/gait. d/c Sinequan prn as high dose and now on Prozac. d/c Vistaril given anticholinergic and also on Cogentin. Consider Trilafon if no immediate improvement on higher dose of Vraylar. 06/21--improved slightly today, will add standing order Ativan as tolerating 1 mg BID (am and evening meal) and decrease Restoril given am confusion. It is still possible that anticholinergic effects of Vistaril and ?Cogentin contributing to confusion. Will reassess Cogentin dosing tomorrow. 06/22--change Cogentin to prn, offer Trilafon BID prn to assess tolerability for additional coverage during Vraylar trial. D/C Restoril after tonight's dose. This will limit polypharmacy, case reviewed with Dr. Marks due to complexity and reconfirm impression of ongoing slow improvements. Will seek input from neurology on additional assessment here for falls and weakness with incontinence though gait and organization improving. Patient is limited historian/limited cooperation with neuro exam given psychosis. 06/24 -Multiple medication changes over the past few days, including addition of daytime lorazepam 1 mg twice daily, taper off of temazepam, increase of cariprazine to 3 mg daily, discontinuing scheduled benztropine, and addition of perphenazine 4 mg twice daily as needed. She remains on lamotrigine 100 mg daily (can be increased to 200 mg daily on 06/26/2020, per standard titration protocol). She received 4 mg perphenazine x 2 yesterday, and 1 so far today. Psychosis continues, with auditory hallucinations and paranoia/delusions of persecution. Given that we are trying to minimize antipsychotic burden due to her EPS, I will increase her lorazepam to 1 mg 3 times daily to target anxious distress and catatonia, but will need to watch for sedation and impaired gait. AIMS today is 12; 4 for tongue movements, 3 for severity, 2 for incapacitation, and 3 for patient awareness. (2) Bipolar 1 disorder: 2/2 - Historical diagnosis, previous admission for alison. Recent medicatio n adjustments made including discontinuing lithium and starting Vraylar and lamotrigine. Continue home meds for now while gathering additional information, spoke with Tyra Higgins to coordinate care. - Referring for BCM through [facility]. 06/18 -patient appears anxious and depressed today, son expresses concerns that she has been more depressed lately, which he attributes to her loss of inde pendence and marital discord. Continue titration of lamotrigine, increase to 100mg daily tomorrow. 06/19 - Lamotrigine to increase to 100mg this evening - continue standard titration schedule to target mood concerns - Patient continues to present as primarily depressed and anxiety, frequently tearful and distressed on the unit - though much of this is likely related to a reaction to current psychotic symptoms. 06/20 -The patient continues to appear anxious and depressed. -She appears to be tolerating the titration of lamotrigine. -Sleep remains suboptimal. Appetite remains suboptimal. -I will offer the patient a trial of fluoxetine 10 mg daily with caution, given her diagnosis of bipolar disorder. She is currently taking 2 mood stabilizing agents. 06/21 Reviewed. (3) Tardive dyskinesia: 06/17 -monitor abnormal involuntary movements, consider trial of Ingrezza, although I believe it is nonformulary -Consider neurology consult for assistance with increase in falls, weakness, and abnormal movements -she was apparently [facility] to [facility] months ago, and her appointment is sometime this month. 06/18 -patient's gait has been steady since admission, without falls. She is not demonstrating obvious signs of weakness here, is ambulating, getting in and out of chairs, and performing ADLs without difficulty. She reportedly has an outpat ient neurology appointment next week, will clarify that and may not need inpatient consultation 06/21--reviewed. 06/24 -case was reviewed with neurology over the weekend, and they did not suggest any further inpatient work-up of her weakness, recurrent falls, gait difficulties, given that she had a normal brain MRI and would not currently be able to tolerate an LP. Her outpatient neurology appointment has been rescheduled for 08/20/[address] Li. Risk Factors Assessment Male: No : Yes Health Problems: Yes Mental Health Diagnoses: Yes Substance Use Disorders: No Previous Psychiatric Hospitalization: Yes Hopelessness: No Smoker: No Protective Factors Assessment : Yes Responsible for Young Children: No Employed: No Supportive Family: Yes Good Rapport with Provider: Yes Interval History Identifying Information ALVARO FRAIRE is a 60-year-old F who currently lives in [place] with her , has a history of bipolar disorder type I, and was admitted on 06/16/20 22:11 on a 201 voluntary commitment for psychosis. Chief Complaint "Real sick". Review of Systems Sleep Information Total Hours of Sleep: 8.5 Sleep Comments: pt on q-15 minute checks Meal Information Percent Meal Consumed - Breakfast: 80 Percent Meal Consumed - Lunch: 75 Percent Meal Consumed - Dinner: 10 Nutrition Comment: pt. only orders Brink[employer] Juice; states she doesn't ususally eat breakfast but plans to eat lunch Subjective Subjective Patient was seen & assessed and interval progress reviewed with nursing and social work. Staff report she continues to struggle with psychosis and self care, is disorganized in her thoughts/speech, and requires frequent redirection. For example, yesterday she clogged her toilet by putting a drink cup down it, and this morning she was unable to attend to her personal hygiene after having a bowel movement, and required staff assistance. She continues to endorse delusions of persecution and paranoia, often reporting that she fears her family are being harmed, at one point saying she shot them, thinking that she was going to [facility], and thought that staff was going to beat her up. She endorses hallucinations at times, reported hearing voices and seeing little boy is running around the unit, and is often distraught by these experiences. She received 2 doses of as needed perphenazine yesterday, and 1 so far today, and is receiving lorazepam twice daily, both of which appear beneficial. On my assessment, she reports she feels "sick," when asked to explain further, states her eyes are red and her tongue will not stop moving, which makes it hard to talk. Her eyes appear normal, and she denies URI symptoms. She does demonstrate ongoing involuntary guarding movements of her tongue. She states mood is "about a 7," but describes feeling distraught, asking "why are they after me?" She gestures around the corner, where a nurse is talking with another patient, and indicates that she believes people are talking about and plotting against her. She says she is worried that her children will be taken away, and then starts talking about one of her nephews eating hot oatmeal. She denies hallucinations currently. She initially denies talking to her family recently, then says she talks to her mother "all the time." She reports sleep is good, and says appetite "depends on what we are having." She denies thoughts of harming herself or anyone else. Physical Exam Vital Signs (Past 24 Hours) Last Vital Signs Temp 36.4 C L 06/24/20 06:34 Pulse 80 06/24/20 06:35 Resp 18 06/24/20 06:34 BP 142/93 H 06/24/20 06:35 Pulse Ox 99 06/16/20 23:03 Results & Data ([facility]) Current Inpatient Medications Current Inpatient Medications: Current Inpatient Medications Acetaminophen (Acetaminophen 325 Mg Tab) 650 mg PO Q4H PRN PRN Reason: Headache or Minor Fever Stop: 07/16/20 22:51 Last Admin: 06/19/20 23:30 Dose: 650 mg Documented by: Al Hydrox/Mg Hydrox/Simethicone (Aluminum/Magnesium Susp 30 Ml Udc) 30 ml PO Q4H PRN PRN Reason: GI Upset Stop: 07/16/20 22:51 Aspirin (Aspirin 81 Mg Ectab) 81 mg PO DAILY DONNIE Stop: 07/18/20 08:59 Last Admin: 06/24/20 07:36 Dose: 81 mg Documented by: Atorvastatin Calcium (Atorvastatin 20 Mg Tab) 20 mg PO HS DONNIE Stop: 07/17/20 21:59 Last Admin: 06/23/20 20:31 Dose: 20 mg Documented by: Benztropine Mesylate (Benztropine Mesylate 1 Mg Tab) 1 mg PO BID PRN PRN Reason: Muscle Spasm Stop: 07/17/20 20:59 Last Admin: 06/24/20 07:57 Dose: 1 mg Documented by: Bismuth Subsalicylate (Bismuth Subsalicylate Liqd 236 Ml) 15 ml PO PRN PRN PRN Reason: Loose Stool Stop: 07/16/20 22:51 Cariprazine (Cariprazine Hcl) 2 ea PO DAILY DONNIE Stop: 07/22/20 08:59 Last Admin: 06/24/20 07:37 Dose: 2 ea Documented by: Fluoxetine HCl (Fluoxetine Hcl 10 Mg Cap) 10 mg PO QAM DONNIE Stop: 07/20/20 10:14 Last Admin: 06/24/20 07:37 Dose: 10 mg Documented by: Gabapentin (Gabapentin 100 Mg Cap) 100 mg PO TID [facility] Stop: 07/17/20 13:59 Last Admin: 06/24/20 07:37 Dose: 100 mg Documented by: Lamotrigine (Lamotrigine 100 Mg Tab) 100 mg PO HS [facility] Stop: 07/19/20 21:59 Last Admin: 06/23/20 20:31 Dose: 100 mg Documented by: Levothyroxine Sodium (Levothyroxine Sodium 100 Mcg Tablet) 100 mcg PO DAILYBB [facility] Stop: 07/18/20 07:59 Last Admin: 06/24/20 07:36 Dose: 100 mcg Documented by: Lorazepam (Lorazepam 0.5 Mg Tab) 0.5 mg PO TID PRN PRN Reason: anxiety Stop: 07/21/20 11:00 Last Admin: 06/22/20 06:43 Dose: 0.5 mg Documented by: Lorazepam (Lorazepam 1 Mg Tab) 1 mg PO [id number] [facility] Stop: 07/22/20 16:59 Last Admin: 06/24/20 07:36 Dose: 1 mg Documented by: Magnesium Hydroxide (Magnesium Hydroxide Susp 30 Ml Udc) 30 ml PO DAILY PRN PRN Reason: Constipation Stop: 07/16/20 22:51 Perphenazine (Perphenazine 2 Mg Tablet) 4 mg PO BID PRN PRN Reason: paranoia Stop: 07/23/20 20:59 Last Admin: 06/24/20 07:56 Dose: 4 mg Documented by: Propranolol HCl (Propranolol Hcl 10 Mg Tab) 10 mg PO BID [facility] Stop: 07/17/20 20:59 Last Admin: 06/24/20 07:36 Dose: 10 mg Documented by: Sodium Chloride (Sodium Chloride 0.65% Na Soln 45 Ml ([place])) 1 - 2 sprays NA PRN PRN PRN Reason: Nasal Dryness/Congestion Stop: 07/16/20 22:51 Mental Health & Subst Abuse Tx Psychiatrist Name of Psychiatrist: Tyra Redmond Psychiatrist's Date of Appointment with Psychiatrist: 07/23/20 Time of Appointment with Psychiatrist: [id number] Psychiatric Appointment Comment: [id number] Post Discharge Appointments Primary Care Physician Name Of Family Doctor: Jorge [facility] Date of Appointment with PCP: 06/26/20 Time of Appointment with PCP: 10:20 a.m. Provider Appointment Comment: [facility] Neurologist Name of Neurologist: MARITZA Li Neurologist's Date of Appointment with Neurologist: 08/20/20 Time of Appointment with Neurologist: 10:30 a.m. Neurology Appointment Comment: [facility] [address] Contact Information Discharge Discharge Address: [address] [place] [address] [place] [address] (1) Psychosis Psychosis type: unspecified psychosis type Qualified Code(s): F29 - Unspecified psychosis not due to a substance or known physiological condition
[2020-06-24] MEDS: LORazepam 0.5 MG TAB PO PRN (11:27)
[2020-06-24] MEDS: lamoTRIgine 100 MG TAB PO SCH (21:50)
[2020-06-24] MEDS: ATORVASTATIN 20 MG TAB PO SCH (21:50)
[2020-06-25] MEDS: CARIPRAZINE HCL PO SCH (07:32)
[2020-06-25] MEDS: GABAPENTIN 100 MG CAP PO SCH ×3 (07:33→22:00)
[2020-06-25] MEDS: FLUoxetine HCL 10 MG CAP PO SCH (07:33)
[2020-06-25] MEDS: LORazepam 1 MG TAB PO SCH ×3 (07:33→22:00)
[2020-06-25] MEDS: PROPRANOLOL HCL 10 MG TAB PO SCH ×2 (07:34→22:00)
[2020-06-25] MEDS: LEVOTHYROXINE SODIUM 100 MCG TABLET PO SCH (07:34)
[2020-06-25] MEDS: ASPIRIN 81 MG ECTAB PO SCH (07:34)
[2020-06-25 08:51] LABS: Basophils # (auto) 0.02 K/uL (0-0.2); Basophils % (auto) 0.2 %; Eosinophils # (auto) 0.37 K/uL (0-0.5); Eosinophils % (auto) 3.2 %; Hematocrit (blood only) 44.2 % (37-47); Immature Granulocytes # (auto) 0.03 K/uL (0.00-0.02); Immature Granulocytes % (auto) 0.3 %; Lymphocytes # (auto) 2.02 K/uL (1.2-3.4); Lymphocytes % (auto) 17.2 %; Mean Corpuscular Hemoglobin 29.8 pg (25-34); Mean Corpuscular Hgb Conc 33.9 g/dL (32-36); Mean Corpuscular Volume 87.9 fL (80-100); Mean Platelet Volume 10.6 fL (7.4-10.4); Neutrophils # (auto) 8.59 K/uL (1.4-6.5); Neutrophils % (auto) 73.1 %; Platelet Count 300 K/uL (130-400); RDW Coefficient of Variation 12.5 % (11.5-14.5); Red Blood Count 5.03 M/uL (4.2-5.4); White Blood Count 11.73 K/uL (4.8-10.8)
--- NOTE | 2020-06-25 09:16 | Psychiatric Progress Note ---
Date of Service June 25, 2020 Impression / Recommendations Impression 60-year-old female with a history of bipolar disorder type I, tardive dyskinesia, and decompensation over the past month and a half with impaired memory, multiple falls, dysarthria, and hallucinations. She had multiple ER visits at the end of April for falls and physical weakness, and due to lithium toxicity her lithium was discontinued, and due to EPS and tardive dyskinesia, Latuda was discontinued, and she was started on lamotrigine. Although lamotrigine was started at the end of April, it was just increased to 50 mg daily 06/06, and Vraylar 1.5 mg added. Her son brought her into the ER due to increasing confusion, incontinence, falls, and hallucinations. She appears delirious, but will need ongoing monitoring to clarify diagnosis and etiology. We are continuing standard titration of lamotrigine and attempting to limit overuse of antipsychotic medications given the patient's significant TD. Pt continues to be delusional and paranoid, and would not be able to tolerate the stress of community re-entry at this time. Reviewed. Patient appears almost delirious/catatonic and is tortured by paranoia. Normal MRI reviewed from Apr, outpatient notes reviewed and patient had been referred to neurology. Case has been reviewed with our neurology team and formal consultation has been requested for gait instability/multiple falls/tardive dyskinesia. Reviewed outpatient notes from [facility]. (1) Psychosis: 2/2 -complicated case, primary diagnosis unclear to me at this point. 2- month history of frequent falls, weakness, and abnormal involuntary movements. Hallucinations with fairly acute onset over the past couple of weeks, as well as memory impairment and significant disorganization on exam today. Minimal evidence of mood episode on my exam, but her outpatient clinician noted symptoms of depression at her last visit a week and a half ago. It would be very helpful to be able to monitor her symptoms around the clock. Differential includes delirium, mood related psychosis, cognitive disorder, or primary thought disorder. -Lamotrigine started a little over a month ago, and just increased to 50 mg daily a week and a half ago. We will continue the standard titration. Vraylar just started about 1 and half weeks ago, will continue 1.5 mg daily. 2/3 - Outpatient records reviewed and care coordinated as above. - Continue Vraylar 1.5mg daily. Fasting labs were checked 11/2019: TG 153, Hgb A1C 5.8% (est ave glucose 120). Will hold off on titrating Vraylar due to her tardive dyskinesia and fact that symptoms are improving. - AIMS today is 10; 3 for tongue movements, 2 for foot movements, 3 for overall severity, and 2 for patient awareness/mild distress. - Patient is slightly more organized in her thinking and speech today, oriented to self and place, but not time. Still confused, unable to find her room, requiring frequent redirection. She is demonstrating paranoia, sometimes directed at staff, but responded well to reassurance, and focus on her distressing emotions. 2 - Continue medication regimen as above, lamotrigine increasing to 100mg this evening. - Pt continues to be rather confused, but also paranoid. She continues to suggest that staff is talking about her, but has more recently been convinced that several family members are being locked in the various offices on the unit. - Continue attempt to limit antipsychotic medications as able, patient continues to respond well to redirection and reassurance from staff. 2 -The patient remains confused and floridly psychotic. Her delusions are mood congruent with depression. For example, today she tells me that she is to be punished because she has "killed [her] mother and father, and everyone in the family." She is also tearful and sobs through much of today's encounter. She also is experiencing auditory hallucinations that are consistent with the content of the delusions. -She appears not to be oriented to month or year. However, assessment of cognitive functioning is somewhat difficult because the patient is largely mute and is very quickly distracted by what appears to be auditory hallucinations. -The patient is able to tell us that her diagnosis is bipolar disorder and that she is in the hospital being treated for a mental illness. Although she claims to not know what medication she is currently taking, she was able to answer several questions regarding what medication she has or has not taken in the past. Today, reports that she has taken Prozac in the past and that has helped when she is depressed, at least to some extent. 2--reviewed past med trials, hesitant to use Haldol or thorazine given her TD and fall risk with latter. She refuses anyway. Did pill counts to confirm started date of Vraylar >2 weeks ago, will increase to 3 mg. Benzos are often helpful for catatonic features but need to watch gait. Start Ativan 0.5 mg TID prn and evaluate response/gait. d/c Sinequan prn as high dose and now on Prozac. d/c Vistaril given anticholinergic and also on Cogentin. Consider Trilafon if no immediate improvement on higher dose of Vraylar. 06/21--improved slightly today, will add standing order Ativan as tolerating 1 mg BID (am and evening meal) and decrease Restoril given am confusion. It is still possible that anticholinergic effects of Vistaril and ?Cogentin contributing to confusion. Will reassess Cogentin dosing tomorrow. 06/22--change Cogentin to prn, offer Trilafon BID prn to assess tolerability for additional coverage during Vraylar trial. D/C Restoril after tonight's dose. This will limit polypharmacy, case reviewed with Dr. Marks due to complexity and reconfirm impression of ongoing slow improvements. Will seek input from neurology on additional assessment here for falls and weakness with incontinence though gait and organization improving. Patient is limited historian/limited cooperation with neuro exam given psychosis. 06/24 -Multiple medication changes over the past few days, including addition of daytime lorazepam 1 mg twice daily, taper off of temazepam, increase of cariprazine to 3 mg daily, discontinuing scheduled benztropine, and addition of perphenazine 4 mg twice daily as needed. She remains on lamotrigine 100 mg daily (can be increased to 200 mg daily on 07/03/2020, per standard titration protocol). She received 4 mg perphenazine x 2 yesterday, and 1 so far today. P sychosis continues, with auditory hallucinations and paranoia/delusions of persecution. Given that we are trying to minimize antipsychotic burden due to her EPS, I will increase her lorazepam to 1 mg 3 times daily to target anxious distress and catatonia, but will need to watch for sedation and impaired gait. AIMS today is 12; 4 for tongue movements, 3 for severity, 2 for incapacitation, and 3 for patient awareness. 06/25 - Continue current medication regimen - patient does have reported moments confusion and visual hallucinations. There does seem to be a component of delirium superimposed on patient's psychosis, but unlikely to explain all of her current presentation. - During conversation today, patient is confused but not verbalizing delusions or paranoia - Neurology consult as outlined below (2) Bipolar 1 disorder: 2/2 - Historical diagnosis, previous admission for alison. Recent medication adjustments made including discontinuing lithium and starting Vraylar and lamotrigine. Continue home meds for now while gathering additional information, spoke with Tyra Higgins to coordinate care. - Referring for BCM through Joanne Zurita. 2 -patient appears anxious and depressed today, son expresses concerns that she has been more depressed lately, which he attributes to her loss of independence and marital discord. Continue titration of lamotrigine, increase to 100mg daily tomorrow. 06/19 - Lamotrigine to increase to 100mg this evening - continue standard titration schedule to target mood concerns - Patient continues to present as primarily depressed and anxiety, frequently tearful and distressed on the unit - though much of this is likely related to a reaction to current psychotic symptoms. 06/20 -The patient continues to appear anxious and depressed. -She appears to be tolerating the titration of lamotrigine. -Sleep remains suboptimal. Appetite remains suboptimal. -I will offer the patient a trial of fluoxetine 10 mg daily with caution, given her diagnosis of bipolar disorder. She is currently taking 2 mood stabilizing agents. 06/21 Reviewed. (3) Tardive dyskinesia: 06/17 -monitor abnormal involuntary movements, consider trial of Ingrezza, although I believe it is nonformulary -Consider neurology consult for assistance with increase in falls, weakness, and abnormal movements -she was apparently referred to [facility] 4 months ago, and her appointment is sometime this month. 06/18 -patient's gait has been steady since admission, without falls. She is not demonstrating obvious signs of weakness here, is ambulating, getting in and out of chairs, and performing ADLs without difficulty. She reportedly has an outpatient neurology appointment next week, will clarify that and may not need inpatient consultation 06/21--reviewed. 06/24 -case was reviewed with neurology over the weekend, and they did not suggest any further inpatient work-up of her weakness, recurrent falls, gait difficulties, given that she had a normal brain MRI and would not currently be able to tolerate an LP. Her outpatient neurology appointment has been rescheduled for 08/20/[address] Li. 06/25 - Will request formal neurology consultation at this point, patient has had 3 minor falls during her stay with two occurring yesterday - It is likely that there is a component of delirium at play presently, but there are outpatient reports that suggest these gait disturbances and weakness was occurring prior to her medication changes/psychiatric admission - Case had been reviewed with our neurology service, would appreciate any input from formal examination and evaluation. Consult placed for "unsteady gait, multiple falls, and tardive dyskinesia" - CMP and UA re-ordered given waxing and waning confusion - pt did have UA prior to admission that appeared to be contaminated. Pt does admit to urinary frequency, but says this is not new. Risk Factors Assessment Male: No : Yes Health Problems: Yes Mental Health Diagnoses: Yes Substance Use Disorders: No Previous Psychiatric Hospitalization: Yes Hopelessness: No Smoker: No Protective Factors Assessment : Yes Responsible for Young Children: No Employed: No Supportive Family: Yes Good Rapport with Provider: Yes Interval History Identifying Information ALVARO FRAIRE is a 60-year-old F who currently lives in [place] with her , has a history of bipolar disorder type I, and was admitted on 06/16/20 22:11 on a 201 voluntary commitment for psychosis. Chief Complaint "There's a mouse there, just ran across the floor." Review of Systems Notes Constitutional: denied Cardiovascular: denied Respiratory: denied Gastrointestinal: denied Neurological: denied Psychiatric: denies symptoms other than stated above Total of at least 10 systems reviewed, pertinent positives as above and in HPI. Sleep Information Total Hours of Sleep: 0.25 Sleep Comments: pt on q-15 minute checks. pt appeared to sleep 3.75 hr during evening shift. pt with poor sleep, laying in bed most of the shift awake. pt on q-15 minute checks Meal Information Percent Meal Consumed - Breakfast: 80 Percent Meal Consumed - Lunch: 20 Percent Meal Consumed - Dinner: 100 Subjective Subjective Patient was seen & assessed and interval progress reviewed with treatment team. Staff report the patient is appearing more delirious, verbalizing visual hallucinations of seeing bugs, seeing family members on the unit, and seeing a cat. Nursing notes also reveal the patient is continuing to report paranoia/delusions - feeling staff is going to harm her and that there are trucks in the parking lot with bombs that will blow her up. Pt had been on close observations after a minor witnessed fall yesterday. sugar refiner report the patient tripped and fell last evening while trying to put on her pants. Pt was seen today to assess progress since admission. The patient was interactive while eating breakfast, and pointed and stated "there's a mouse there, just ran across the floor." Pt was reassured that this provider did not see a mouse, and she was able to admit that the experience may not have been real. Pt is observed to be eating breakfast. She does report that she feels things are improving over the course of her stay. Specifically, the patient states "my eating has gotten better." When asked why she feels this is, the patient states that she feels her tongue movements (TD) has improved which makes it easier for her to eat her meals. Pt was asked to rate her mood (10=best), and she said "an 8 plus." Pt appears less distressed this morning, and is not verbalizing delusional or paranoid thoughts. She does still seem rather confused, recalling that her daughter is going to have a baby but providing two very different due dates. We spent some time discussing the thoughts patient had on admission, feeling worried her family was being trapped in offices on the unit. Pt was able to recall that we are not able to permit visitors and did seems to, at least briefly, be able to participate with reality testing. She stated she was able to recall believing that staff was going to hurt her, but does not currently feel unsafe on the unit. Pt was updated on her ongoing episodes of confusion and ways staff plans to assist with this. Pt did agree to additional blood work and a repeat UA. She admits to urinary frequency, but states this is not new for her. Pt denied other needs or concerns at this time. Physical Exam Psychiatric Orientation: alert and oriented to person; + not oriented to place (believes she was at home this morning) Calm and cooperative, but appearing confused - not clearly oriented to place/time/situation Apperance: appropriately dressed, + disheveled (hair pulled back, but appearing unkempt) and appeared stated age Eye Contact: + fair eye contact Motor Behavior: steady gait and station (at this time, but patient has had several minor falls) TD, significant tongue movements Speech: + abnormal rate/rhythm/volume of speech (disarthric, impaired to some degree by TD, difficult to understand) Affect: + blunted affect (appearing subdued, but not overtly depressed) smiling intermittently during interaction Mood: no depressed mood (rates mood as "an 8 plus") Thought Process: + tangential thought process, + concrete thought process and + incoherent thought process (intermittently ) Thought Content: not paranoid and no delusions No delusions/paranoia during our conversation specifically, but statements are intermittently reported. Pt does appear confused and disorientated intermittently as well. Hallucinations: + auditory hallucinations and + visual hallucinations intermittently reporting auditory hallucinations of voices - visual hallucinations of bugs, seeing a baby on her bed and blood on her sheets, seeing a mouse run across the floor Cognition: + recent memory not intact and + attention not intact Insight: + impaired insight Judgement: + impaired judgement Vital Signs (Past 24 Hours) Last Vital Signs Temp 36.5 C 06/25/20 06:23 Pulse 84 06/25/20 06:25 Resp 18 06/25/20 06:23 BP 129/91 06/25/20 06:25 Pulse Ox 99 06/16/20 23:03 Results & Data ([facility]) Laboratory Results Laboratory Results - last 24 hr 06/25/20 06/25/20 08:38 08:38 WBC 11.73 H RBC 5.03 Hgb 15.0 Hct 44.2 MCV 87.9 MCH 29.8 MCHC 33.9 RDW Std Deviation 40.0 RDW Coeff of Zakiya 12.5 Plt Count 300 MPV 10.6 H Immature Gran % (Auto) 0.3 Neut % (Auto) 73.1 Lymph % (Auto) 17.2 Ciales % (Auto) 6.0 Eos % (Auto) 3.2 Baso % (Auto) 0.2 Neut # (Auto) 8.59 H Lymph # (Auto) 2.02 [place]es # (Auto) 0.70 H Eos # (Auto) 0.37 Baso # (Auto) 0.02 Immature Gran # (Auto) 0.03 H Sodium Pending Potassium Pending Chloride Pending Carbon Dioxide Pending Anion Gap Pending BUN Pending Creatinine Pending Est Cr Clr Drug Dosing Pending Est GFR ( Amer) Pending Est GFR (Non-Af Amer) Pending BUN/Creatinine Ratio Pending Glucose Pending Calcium Pending Total Bilirubin Pending AST Pending ALT Pending Alkaline Phosphatase Pending Total Protein Pending Albumin Pending Globulin Pending Albumin/Globulin Ratio Pending Current Inpatient Medications Current Inpatient Medications: Current Inpatient Medications Acetaminophen (Acetaminophen 325 Mg Tab) 650 mg PO Q4H PRN PRN Reason: Headache or Minor Fever Stop: 07/16/20 22:51 Last Admin: 06/19/20 23:30 Dose: 650 mg Documented by: Al Hydrox/Mg Hydrox/Simethicone (Aluminum/Magnesium Susp 30 Ml Udc) 30 ml PO Q4H PRN PRN Reason: GI Upset Stop: 07/16/20 22:51 Aspirin (Aspirin 81 Mg Ectab) 81 mg PO DAILY DONNIE Stop: 07/18/20 08:59 Last Admin: 06/25/20 07:34 Dose: 81 mg Documented by: Atorvastatin Calcium (Atorvastatin 20 Mg Tab) 20 mg PO HS [facility] Stop: 07/17/20 21:59 Last Admin: 06/24/20 21:50 Dose: 20 mg Documented by: Benztropine Mesylate (Benztropine Mesylate 1 Mg Tab) 1 mg PO BID PRN PRN Reason: Muscle Spasm Stop: 07/17/20 20:59 Last Admin: 06/24/20 07:57 Dose: 1 mg Documented by: Bismuth Subsalicylate (Bismuth Subsalicylate Liqd 236 Ml) 15 ml PO PRN PRN PRN Reason: Loose Stool Stop: 07/16/20 22:51 Cariprazine (Cariprazine Hcl) 2 ea PO DAILY DONNIE Stop: 07/22/20 08:59 Last Admin: 06/25/20 07:32 Dose: 2 ea Documented by: Fluoxetine HCl (Fluoxetine Hcl 10 Mg Cap) 10 mg PO QAM DONNIE Stop: 07/20/20 10:14 Last Admin: 06/25/20 07:33 Dose: 10 mg Documented by: Gabapentin (Gabapentin 100 Mg Cap) 100 mg PO TID DONNIE Stop: 07/17/20 13:59 Last Admin: 06/25/20 07:33 Dose: 100 mg Documented by: Lamotrigine (Lamotrigine 100 Mg Tab) 100 mg PO HS [facility] Stop: 07/19/20 21:59 Last Admin: 06/24/20 21:50 Dose: 100 mg Documented by: Levothyroxine Sodium (Levothyroxine Sodium 100 Mcg Tablet) 100 mcg PO DAILYBB [facility] Stop: 07/18/20 07:59 Last Admin: 06/25/20 07:34 Dose: 100 mcg Documented by: Lorazepam (Lorazepam 0.5 Mg Tab) 0.5 mg PO TID PRN PRN Reason: anxiety Stop: 07/21/20 11:00 Last Admin: 06/24/20 11:27 Dose: 0.5 mg Documented by: Lorazepam (Lorazepam 1 Mg Tab) 1 mg PO TID [facility] Stop: 07/24/20 13:59 Last Admin: 06/25/20 07:33 Dose: 1 mg Documented by: Magnesium Hydroxide (Magnesium Hydroxide Susp 30 Ml Udc) 30 ml PO DAILY PRN PRN Reason: Constipation Stop: 07/16/20 22:51 Perphenazine (Perphenazine 2 Mg Tablet) 4 mg PO BID PRN PRN Reason: paranoia Stop: 07/23/20 20:59 Last Admin: 06/24/20 07:56 Dose: 4 mg Documented by: Propranolol HCl (Propranolol Hcl 10 Mg Tab) 10 mg PO BID [facility] Stop: 07/17/20 20:59 Last Admin: 06/25/20 07:34 Dose: 10 mg Documented by: Sodium Chloride (Sodium Chloride 0.65% Na Soln 45 Ml ([place])) 1 - 2 sprays NA PRN PRN PRN Reason: Nasal Dryness/Congestion Stop: 07/16/20 22:51 Mental Health & Subst Abuse Tx Psychiatrist Name of Psychiatrist: Tyra Redmond Psychiatrist's Date of Appointment with Psychiatrist: 07/23/20 Time of Appointment with Psychiatrist: [id number] Psychiatric Appointment Comment: [id number] [facility] Post Discharge Appointments Primary Care Physician Name Of Family Doctor: Jorge [facility] Date of Appointment with PCP: 06/26/20 Time of Appointment with PCP: 10:20 a.m. Provider Appointment Comment: [id number] [facility] Neurologist Name of Neurologist: MARITZA Li Neurologist's Date of Appointment with Neurologist: 08/20/20 Time of Appointment with Neurologist: 10:30 a.m. Neurology Appointment Comment: [address] Contact Information Discharge Discharge Address: [address] [place] [address] [place] [address] (1) Psychosis Psychosis type: unspecified psychosis type Qualified Code(s): F29 - Unspecified psychosis not due to a substance or known physiological condition
[2020-06-25 09:46] LABS: Albumin Globulin Ratio 1.1 (0.9-2); BUN Creatinine Ratio 13.5 (10-20); Bilirubin,Total 0.8 mg/dl (0.2-1); Calcium 9.6 mg/dl (8.5-10.1); Creatinine Clr Calc Pharmacy 52.4 ml/min; Est GFR (African American) 68.3; Est GFR (Non-African American) 58.9; Globulin 3.5 gm/dl (2.5-4.0); Potassium 3.9 mmol/L (3.5-5.1); Total Protein 7.5 gm/dl (6.4-8.2)
[2020-06-25 12:59] LABS: Appearance Urine Clear (Clear); Bilirubin Urine Negative (Negative); Blood Urine Negative (Negative); Color Urine Yellow; Glucose Urine UA Negative (Negative); Ketones Urine Negative (Negative); Leukocyte Esterase Urine Negative (Negative); Nitrite Urine Negative (Negative); Protein Urine Negative (Negative); Urobilinogen Urine Negative (Negative)
--- NOTE | 2020-06-25 16:14 | Neurology Consultation ---
Date of Consultation June 25, 2020 Assessment & Plan (1) Tardive dyskinesia: Taniya Waterman is a 60 yo woman w/ PMH of bipolar disorder, HLD, hypothyroidism, HTN, and neuroleptic induced Parkinsonism/tardive dyskinesia whom neurology is consulted on for impaired memory, falls, and hallucinations. # Gait difficulty/recurrent falls: most likely due to the fact that her symptoms of tardive dyskinesia appear to have spread into her BLEs. Cannot rule out mild neuropathy from prediabetes as also contributing - recommend starting valbenazine 40mg daily and uptitrating as tolerated for TD symptoms - would also check A1c to make sure that prediabetes has not worsened and possibly requires medication treatment to help prevent further neuropathy progression # Memory issues: - re-check TSH and adjust synthroid as needed - check B12 level (was low previously); if less than 400, replete with 500- 1000mcg daily - can have outpatient neuropsych testing once more stable from a psychiatric standpoint and infection fully treated - would consider an alternative sleep agent temazepam if memory issues are prolonged as benzos are generally recommended to be avoided if possible Thank you for this interesting consult. Plan of care discussed with primary team. Please call or text with questions. (2) Falling: (3) Impaired fasting glucose: (4) Hypothyroidism: (5) Memory changes: History of Present Illness Attending Physician: Josy Marks MD History of Present Illness Taniya Waterman is a 60 yo woman w/ PMH of bipolar disorder, HLD, hypothyroidism, HTN, and neuroleptic induced Parkinsonism/tardive dyskinesia whom neurology is consulted on for impaired memory, falls, and hallucinations. On review of chart, labs notable for WBC 11.73, hemoglobin 15, platelets 300, BMP within normal except for elevated glucose 170, most recent A1c on chart 5.8, TSH low at 0.113 with normal free T4 at admission on 06/16/2020, admission UA positive for UTI. Urine culture showed mixed daiana with no single organism identified. MRI brain from 05/05/2020 independently reviewed shows no acute or chronic infarcts, normal midline structures, minimal T2 hyperintensities likely SVID. On evaluation, she reports that starting around [place] she started to notice difficulty with walking and frequent falls. At that time she was having urinary incontinence but more recently has been having urinary retention and constipation. She does not recall what antipsychotics she was on previously but does note having tardive dyskinesia for several years now with more recent spread of symptoms to her legs in the last few months. She is on the Vraylar for her history of psychosis, lamotrigine, temazepam, hydroxyzine, doxepin and benztropine for psychiatric history. She also is on Synthroid for her history of hypothyroidism. Endorses having numbness in bilateral feet. Denies any difficulties with doing ADLs such as feeding, dressing or toileting. Pays her own bills at home. Long history of not driving due to unassociated issues. Has a mild fine tremor on outstretched and she is not sure how long she has had, not at rest. Denies issues with REM sleep behavior disorder. Does have hallucinations but unclear if this is due to her baseline bipolar or if this was something new in the setting of UTI and multiple medication changes. Denies known family history of dementia or movement disorder. Allergies Allergy/AdvReac Type Severity Reaction Status Date / Time Penicillins Allergy Mild Rash Verified 05/05/20 20:15 Home Medications Medication Instructions Recorded Confirmed Type propranolol 10 mg PO BID #60 01/21/17 06/16/20 History gabapentin 100 mg PO TID #0 cap 10/01/17 06/16/20 History doxepin 200 mg PO HS PRN 12/06/18 06/16/20 History hydroxyzine HCl 50 mg PO HS 12/06/18 06/16/20 History temazepam 30 mg PO HS 12/06/18 06/16/20 History levothyroxine [Synthroid] 100 mcg PO QAM 02/04/20 06/16/20 History atorvastatin 20 mg tablet 20 mg PO HS #30 tab 05/02/20 06/16/20 Rx benztropine 1 mg PO BID 05/05/20 06/16/20 History aspirin 81 mg PO DAILY 05/10/20 06/16/20 History cariprazine [Vraylar] 1.5 mg PO DAILY 06/16/20 06/16/20 History lamotrigine 50 mg PO HS 06/16/20 06/16/20 History Patient History Medical History Bipolar 1 disorder History of anesthesia reaction difficulty waking Hyperlipidemia Hypertension Hypothyroidism Tardive dyskinesia Surgical History History of colonoscopy with polypectomy History of conization of cervix History of cervical conization by laser History of dilation and curettage History of foot surgery x2--right--no hardware History of hysteroscopy History of right oophorectomy History of tooth extraction all upper teeth History of tubal ligation Family History Father Type 2 diabetes mellitus Family hx colonic polyps Brother Type 2 diabetes mellitus Sister Parathyroid disorder Brother Type 2 diabetes mellitus Other No family history of adverse response to anesthesia Social History Smoking Status: Never smoker Second Hand Exposure: No; Hx Alcohol Use: No Hx Substance Use: No Preferred Language: Mongolian Communication Ability: Impaired Communication Ability Comment: patient often talks to fast, when asked to repeat - easier to understand Warrant Server Required: No Beliefs That Will Affect Care: None marital status: Current Living Situation: Spouse current occupational status: employed Feels Safe at Home: Yes Assistive Devices: Denture - Upper and Glasses Review of Systems Review of Systems: 10 point review of systems completed and negative except as in HPI. Exam (Neuro) Physical Exam: General Exam: GEN: NAD, sitting in chair. HEENT: No conjunctival injection, no rhinorrhea. CV: RRR, no peripheral edema PULM: Nonlabored respirations on room air. Neuro Exam: MS: Awake and Alert. Oriented to person, place, and date. Speech fluent and appropriate without dysarthria or paraphasic errors. Language intact including naming, comprehension, repetition. Cognition and memory mildly impaired, delayed recall 1 of 3. Attention intact. No neglect. CN: Visual egan full. No extinction to double simultaneous stimuli. No optic disc edema on fundoscopic exam. PERRLA OU. EOMI without nystagmus. Facial sensation intact to LT. Facial muscles full and symmetric. Hearing intact to conversation. Uvula midline with symmetric palatal elevation. Shoulder shrug normal. Tongue midline. MOTOR: Normal bulk and tone, no clear cogwheeling. No pronator drift. BUE strength 5/5 at deltoids, biceps, triceps and hand grasp bilaterally. BLE strength 5/5 at iliopsoas, hamstrings, quadriceps, tibialis anterior, and gastrocnemius bilaterally. +frequent tardive dyskinesia of tongue and bilateral lower extremities. REFLEXES: 2+ at biceps, triceps, brachioradialis, 1+ patella and trace Achilles bilaterally. Flexor plantar responses bilaterally. SENSORY: Intact to LT/vibration without extinction to double simultaneous stimuli. COORDINATION: No dysmetria or ataxia on [id number] and [id number] bilaterally. Normal Jonh bilaterally. Normal heel taps and pull test. GAIT: Slow but normal gait with normal arm swing. Normal Romberg. Results & Data ([facility]) Vital Signs (Past 12 Hours) Vital Signs Temp Pulse Resp BP 06/25/20 06:25 84 129/91 06/25/20 06:23 36.5 C 80 18 135/91 PG Care Time/CCT Total # of Minutes Spent Total Time Spent with Patient: Total time spent is greater than 50% in coordination of care (as documented) at patient's floor/unit and/or counseling patient: Coding Level of Care Code 21701 Inpt Consult Level 5 Diagnoses Tardive dyskinesia G24.01 Falling R29.6 Impaired fasting glucose R73.01 Hypothyroidism E03.9 Memory changes R41.3
[2020-06-25] MEDS: LORazepam 0.5 MG TAB PO PRN (17:08)
[2020-06-25] MEDS: lamoTRIgine 100 MG TAB PO SCH (22:00)
[2020-06-25] MEDS: ATORVASTATIN 20 MG TAB PO SCH (22:00)
[2020-06-26] MEDS: LEVOTHYROXINE SODIUM 100 MCG TABLET PO SCH (08:12)
[2020-06-26] MEDS: LORazepam 1 MG TAB PO SCH ×3 (08:33→20:21)
[2020-06-26] MEDS: ASPIRIN 81 MG ECTAB PO SCH (08:33)
[2020-06-26] MEDS: GABAPENTIN 100 MG CAP PO SCH ×3 (08:33→20:18)
[2020-06-26] MEDS: PROPRANOLOL HCL 10 MG TAB PO SCH ×2 (08:33→20:18)
[2020-06-26] MEDS: FLUoxetine HCL 10 MG CAP PO SCH (08:34)
[2020-06-26] MEDS: CARIPRAZINE HCL 3 MG PO SCH (08:35)
[2020-06-26] MEDS: ACETAMINOPHEN 325 MG TAB PO PRN (08:54)
[2020-06-26] MEDS ORDERED: NON-FORMULARY PATIENT'S OWN MED SCH (09:00)
--- NOTE | 2020-06-26 09:40 | Psychiatric Progress Note ---
Date of Service June 26, 2020 Impression / Recommendations Impression 60-year-old female with a history of bipolar disorder type I, tardive dyskinesia, and decompensation over the past month and a half with impaired memory, multiple falls, dysarthria, and hallucinations. She had multiple ER visits at the end of April for falls and physical weakness, and due to lithium toxicity her lithium was discontinued, and due to EPS and tardive dyskinesia, Latuda was discontinued, and she was started on lamotrigine. Although lamotrigine was started at the end of April, it was just increased to 50 mg daily 06/06, and Vraylar 1.5 mg added. Her son brought her into the ER due to increasing confusion, incontinence, falls, and hallucinations. She appears delirious, but will need ongoing monitoring to clarify diagnosis and etiology. We are continuing standard titration of lamotrigine and attempting to limit overuse of antipsychotic medications given the patient's significant TD. Pt continues to be delusional and paranoid, and would not be able to tolerate the stress of community re-entry at this time. Reviewed. Patient appears almost delirious/catatonic and is tortured by paranoia. Normal MRI reviewed from Apr, outpatient notes reviewed and patient had been referred to neurology. Case has been reviewed with our neurology team and formal consultation was completed for gait instability/multiple falls/tardive dyskinesia - appreciate recommendations provided. Reviewed outpatient notes from [place]. (1) Psychosis: 2/2 -complicated case, primary diagnosis unclear to me at this point. 2- month history of frequent falls, weakness, and abnormal involuntary movements. Hallucinations with fairly acute onset over the past couple of weeks, as well as memory impairment and significant disorganization on exam today. Minimal evidence of mood episode on my exam, but her outpatient clinician noted symptoms of depression at her last visit a week and a half ago. It would be very helpful to be able to monitor her symptoms around the clock. Differential includes delirium, mood related psychosis, cognitive disorder, or primary thought disorder. -Lamotrigine started a little over a month ago, and just increased to 50 mg daily a week and a half ago. We will continue the standard titration. Vraylar just started about 1 and half weeks ago, will continue 1.5 mg daily. 2/3 - Outpatient records reviewed and care coordinated as above. - Continue Vraylar 1.5mg daily. Fasting labs were checked 11/2019: TG 153, Hgb A1C 5.8% (est ave glucose 120). Will hold off on titrating Vraylar due to her tardive dyskinesia and fact that symptoms are improving. - AIMS today is 10; 3 for tongue movements, 2 for foot movements, 3 for overall severity, and 2 for patient awareness/mild distress. - Patient is slightly more organized in her thinking and speech today, oriented to self and place, but not time. Still confused, unable to find her room, requiring frequent redirection. She is demonstrating paranoia, sometimes direc jennifer at staff, but responded well to reassurance, and focus on her distressing emotions. 06/19 - Continue medication regimen as above, lamotrigine increasing to 100mg this evening. - Pt continues to be rather confused, but also paranoid. She continues to suggest that staff is talking about her, but has more recently been convinced that several family members are being locked in the various offices on the unit. - Continue attempt to limit antipsychotic medications as able, patient continues to respond well to redirection and reassurance from staff. 2 -The patient remains confused and floridly psychotic. Her delusions are mood congruent with depression. For example, today she tells me that she is to be punished because she has "killed [her] mother and father, and everyone in the family." She is also tearful and sobs through much of today's encounter. She also is experiencing auditory hallucinations that are consistent with the content of the delusions. -She appears not to be oriented to month or year. However, assessment of cognitive functioning is somewhat difficult because the patient is largely mute and is very quickly distracted by what appears to be auditory hallucinations. -The patient is able to tell us that her diagnosis is bipolar disorder and that she is in the hospital being treated for a mental illness. Although she claims to not know what medication she is currently taking, she was able to answer several questions regarding what medication she has or has not taken in the past. Today, reports that she has taken Prozac in the past and that has helped when she is depressed, at least to some extent. 2--reviewed past med trials, hesitant to use Haldol or thorazine given her TD and fall risk with latter. She refuses anyway. Did pill counts to confirm started date of Vraylar >2 weeks ago, will increase to 3 mg. Benzos are often helpful for catatonic features but need to watch gait. Start Ativan 0.5 mg TID prn and evaluate response/gait. d/c Sinequan prn as high dose and now on Prozac. d/c Vistaril given anticholinergic and also on Cogentin. Consider Trilafon if no immediate improvement on higher dose of Vraylar. 06/21--improved slightly today, will add standing order Ativan as tolerating 1 mg BID (am and evening meal) and decrease Restoril given am confusion. It is still possible that anticholinergic effects of Vistaril and ?Cogentin contributing to confusion. Will reassess Cogentin dosing tomorrow. 06/22--change Cogentin to prn, offer Trilafon BID prn to assess tolerability for additional coverage during Vraylar trial. D/C Restoril after tonight's dose. This will limit polypharmacy, case reviewed with Dr. Marks due to complexity and reconfirm impression of ongoing slow improvements. Will seek input from neurology on additional assessment here for falls and weakness with incontinence though gait and organization improving. Patient is limited historian/limited cooperation with neuro exam given psychosis. 06/24 -Multiple medication changes over the past few days, including addition of daytime lorazepam 1 mg twice daily, taper off of temazepam, increase of cariprazine to 3 mg daily, discontinuing scheduled benztropine, and addition of perphenazine 4 mg twice daily as needed. She remains on lamotrigine 100 mg daily (can be increased to 200 mg daily on 07/03/2020, per standard titration protocol). She received 4 mg perphenazine x 2 yesterday, and 1 so far today. Psychosis continues, with auditory hallucinations and paranoia/delusions of persecution. Given that we are trying to minimize antipsychotic burden due to her EPS, I will increase her lorazepam to 1 mg 3 times daily to target anxious distress and catatonia, but will need to watch for sedation and impaired gait. AIMS today is 12; 4 for tongue movements, 3 for severity, 2 for incapacitation, and 3 for patient awareness. 06/25 - Continue current medication regimen - patient does have reported moments confusion and visual hallucinations. There does seem to be a component of delirium superimposed on patient's psychosis, but unlikely to explain all of her current presentation. - During conversation today, patient is confused but not verbalizing delusions or paranoia - Neurology consult as outlined below 06/26 - Continue current medication regimen - will attempt to acquire valbenazine to target TD - Pt continues to have waxing and waning confusion, but symptoms of clinton psychosis do seem to be steadily improving - Staff continue to report concerns for gait instability - patient on formal 1:1 after sustaining minor falls 2 days ago. (2) Bipolar 1 disorder: 06/17 - Historical diagnosis, previous admission for alison. Recent medication adjustments made including discontinuing lithium and starting Vraylar and lamotrigine. Continue home meds for now while gathering additional information, spoke with Tyra Higgins to coordinate care. - Referring for BCM through [facility]. 06/18 -patient appears anxious and depressed today, son expresses concerns that she has been more depressed lately, which he attributes to her loss of independence and marital discord. Continue titration of lamotrigine, increase to 100mg daily tomorrow. 06/19 - Lamotrigine to increase to 100mg this evening - continue standard titration schedule to target mood concerns - Patient continues to present as primarily depressed and anxiety, frequently tearful and distressed on the unit - though much of this is likely related to a reaction to current psychotic symptoms. 06/20 -The patient continues to appear anxious and depressed. -She appears to be tolerating the titration of lamotrigine. -Sleep remains suboptimal. Appetite remains suboptimal. -I will offer the patient a trial of fluoxetine 10 mg daily with caution, given her diagnosis of bipolar disorder. She is currently taking 2 mood stabilizing agents. 06/21 Reviewed. 06/26 - Treatment plan as outlined under "Psychosis" (3) Tardive dyskinesia: 06/17 -monitor abnormal involuntary movements, consider trial of Ingrezza, although I believe it is nonformulary -Consider neurology consult for assistance with increase in falls, weakness, and abnormal movements -she was apparently referred to [facility] 4 months ago, and her appointment is sometime this month. 06/18 -patient's gait has been steady since admission, without falls. She is not demonstrating obvious signs of weakness here, is ambulating, getting in and out of chairs, and performing ADLs without difficulty. She reportedly has an outpatient neurology appointment next week, will clarify that and may not need inpatient consultation 06/21--reviewed. 06/24 -case was reviewed with neurology over the weekend, and they did not suggest any further inpatient work-up of her weakness, recurrent falls, gait difficulties, given that she had a normal brain MRI and would not currently be able to tolerate an LP. Her outpatient neurology appointment has been re scheduled for 08/20/[address] Li. 06/25 - Will request formal neurology consultation at this point, patient has had 3 minor falls during her stay with two occurring yesterday - It is likely that there is a component of delirium at play presently, but there are outpatient reports that suggest these gait disturbances and weakness was occurring prior to her medication changes/psychiatric admission - Case had been reviewed with our neurology service, would appreciate any input from formal examination and evaluation. Consult placed for "unsteady gait, multiple falls, and tardive dyskinesia" - CMP and UA re-ordered given waxing and waning confusion - pt did have UA prior to admission that appeared to be contaminated. Pt does admit to urinary frequency, but says this is not new. 06/26 - Appreciate recommendations offered by our neurology service. - They also recommend initiating valbenazine 40mg for TD symptoms - Additional labs were also recommended: will order A1c, TSH reflex free T4, vit B12 - Recommendation for outpatient neuropsychological testing referral Risk Factors Assessment Male: No : Yes Health Problems: Yes Mental Health Diagnoses: Yes Substance Use Disorders: No Previous Psychiatric Hospitalization: Yes Hopelessness: No Smoker: No Protective Factors Assessment : Yes Responsible for Young Children: No Employed: No Supportive Family: Yes Good Rapport with Provider: Yes Interval History Identifying Information ALVARO FRAIRE is a 60-year-old F who currently lives in [place] with her , has a history of bipolar disorder type I, and was admitted on 06/16/20 22:11 on a 201 voluntary commitment for psychosis. Chief Complaint "I'm ok." Review of Systems Notes Constitutional: admits "I feel foggy still" Cardiovascular: denied Respiratory: denied Gastrointestinal: denied Neurological: denied Musculoskeletal: reports pain to right hip/outer thigh Psychiatric: denies symptoms other than stated above Total of at least 10 systems reviewed, pertinent positives as above and in HPI. Sleep Information Total Hours of Sleep: 7.5 Sleep Comments: pt on q-15 minute checks. pt appeared to sleep 3.75 hr during evening shift. pt with poor sleep, laying in bed most of the shift awake. pt on q-15 minute checks Meal Information Percent Meal Consumed - Breakfast: 75 Percent Meal Consumed - Lunch: 75 Percent Meal Consumed - Dinner: 20 Nutrition Comment: pt. only orders [place] [employer]; states she doesn't ususally eat breakfast but plans to eat lunch Subjective Subjective Patient was seen & assessed and interval progress reviewed with nursing and social work. Staff report the patient has been more coherent, but continues to be intermittently confused. She continues to have episodes of believing her family is in or around the hospital. In generally, she appears far less distressed and 1:1 is primarily for patient safety related to minor falls sustained on the unit. Pt was seen today to assess progress since admission. The patient shares that her right hip/outer thigh are a bit sore "from my fall last night" - clarified with 1:1 staff that patient did not fall last evening, but likely thinking of fall 2 nights ago. She denies any acute concerns and states "I'll be alright. So when can I go home?" We discussed that patient will likely be in the hospital for several more days, but patient was reassured of the improvements observed. Pt does agree that she is feeling better, but is unable to provide specific examples without significant prompting. When asked about her mood, she states "I'm not as richard as I was." She denies auditory hallucinations and states she feels safe with staff here on the unit. She did share with her 1:1 that she thought she saw her grandchildren playing in the parking lot. Pt was superficially able to respond to reality testing, admitting she is aware that the hospital is not permitting visitors and that she was likely confused. The patient does admit "I feel foggy still." Pt did answer many orientation questions inappropriately. Pt denied other needs or concerns at this time. Physical Exam Psychiatric Orientation: alert, oriented to person (loosely) and oriented to place (loosely ); + not oriented to time Pt is loosely oriented to person and place - when asked her name, she actually begins to spell it but is inaccurate with her response. Pt seems to be uncertain of her date and did not answer her year appropriately - just that "[unintelligible] is 2 years older then me". She believes today's date is "the ...may...Two, two, two, one (2220)." Pt is aware that she is in a "hospital", but does not know the specific name or city. She does know she is in [facility] in [place]. Apperance: appropriately dressed, appropriately groomed (showered last evening, hair appears clean, pulled back in ponytail) and appeared stated age Eye Contact: good eye contact Motor Behavior: + EPS (TD; primarily oral/tongue movements); + unsteady gait or station (staff state patient still appears unstable when walking with assistance) patient observed while seated on edge of bed Speech: + abnormal rate/rhythm/volume of speech (some episodes of unintelligible speech, affected by oral TD movements) Affect: + blunted affect and + constricted affect Mood: no depressed mood Thought Process: + tangential thought process and + looseness of associations (at times) thought process continues to be disorganized at times Thought Content: no hopelessness and no worthlessness Suicidal Thoughts: denies suicidal thoughts Homicidal Thoughts: denies homicidal thoughts Hallucinations: patient denies, though uncertain of the accuracy of this report Cognition: language grossly intact; + recent memory not intact and + attention not intact Insight: + impaired insight Judgement: + impaired judgement Vital Signs (Past 24 Hours) Last Vital Signs Temp 37 C 06/26/20 06:47 Pulse 79 06/26/20 06:47 Resp 17 06/26/20 06:47 BP 132/85 06/26/20 06:47 Pulse Ox 99 06/16/20 23:03 Results & Data ([facility]) Laboratory Results Laboratory Results - last 24 hr 06/25/20 06/25/20 08:38 12:45 Sodium 141 Potassium 3.9 Chloride 106 Carbon Dioxide 26 Anion Gap 8.0 BUN 14 Creatinine 1.02 Est Cr Clr Drug Dosing 52.4 Est GFR ( Amer) 68.3 Est GFR (Non-Af Amer) 58.9 BUN/Creatinine Ratio 13.5 Glucose 170 H Calcium 9.6 Total Bilirubin 0.8 AST 25 ALT 44 Alkaline Phosphatase 122 H Total Protein 7.5 Albumin 4.0 Globulin 3.5 Albumin/Globulin Ratio 1.1 Urine Color Yellow Urine Appearance Clear Urine pH 7.0 Ur Specific [place] 1.010 Urine Protein Negative Urine Glucose (UA) Negative Urine Ketones Negative Urine Blood Negative Urine Nitrite Negative Urine Bilirubin Negative Urine Urobilinogen Negative Ur Leukocyte Esterase Negative Current Inpatient Medications Current Inpatient Medications: Current Inpatient Medications Acetaminophen (Acetaminophen 325 Mg Tab) 650 mg PO Q4H PRN PRN Reason: Headache or Minor Fever Stop: 07/16/20 22:51 Last Admin: 06/26/20 08:54 Dose: 650 mg Documented by: Al Hydrox/Mg Hydrox/Simethicone (Aluminum/Magnesium Susp 30 Ml Udc) 30 ml PO Q4H PRN PRN Reason: GI Upset Stop: 07/16/20 22:51 Aspirin (Aspirin 81 Mg Ectab) 81 mg PO DAILY [facility] Stop: 07/18/20 08:59 Last Admin: 06/26/20 08:33 Dose: 81 mg Documented by: Atorvastatin Calcium (Atorvastatin 20 Mg Tab) 20 mg PO [facility] Stop: 07/17/20 21:59 Last Admin: 06/25/20 22:00 Dose: 20 mg Documented by: Benztropine Mesylate (Benztropine Mesylate 1 Mg Tab) 1 mg PO BID PRN PRN Reason: Muscle Spasm Stop: 07/17/20 20:59 Last Admin: 06/24/20 07:57 Dose: 1 mg Documented by: Bismuth Subsalicylate (Bismuth Subsalicylate Liqd 236 Ml) 15 ml PO PRN PRN PRN Reason: Loose Stool Stop: 07/16/20 22:51 Cariprazine (Cariprazine Hcl 3mg Capsule) 1 ea PO DAILY DONNIE Stop: 07/26/20 08:59 Last Admin: 06/26/20 08:35 Dose: 1 ea Documented by: Fluoxetine HCl (Fluoxetine Hcl 10 Mg Cap) 10 mg PO QAM DONNIE Stop: 07/20/20 10:14 Last Admin: 06/26/20 08:34 Dose: 10 mg Documented by: Gabapentin (Gabapentin 100 Mg Cap) 100 mg PO TID DONNIE Stop: 07/17/20 13:59 Last Admin: 06/26/20 08:33 Dose: 100 mg Documented by: Lamotrigine (Lamotrigine 100 Mg Tab) 100 mg PO HS [facility] Stop: 07/19/20 21:59 Last Admin: 06/25/20 22:00 Dose: 100 mg Documented by: Levothyroxine Sodium (Levothyroxine Sodium 100 Mcg Tablet) 100 mcg PO DAILYBB DONNIE Stop: 07/18/20 07:59 Last Admin: 06/26/20 08:12 Dose: 100 mcg Documented by: Lorazepam (Lorazepam 0.5 Mg Tab) 0.5 mg PO TID PRN PRN Reason: anxiety Stop: 07/21/20 11:00 Last Admin: 06/25/20 17:08 Dose: 0.5 mg Documented by: Lorazepam (Lorazepam 1 Mg Tab) 1 mg PO TID DONNIE Stop: 07/24/20 13:59 Last Admin: 06/26/20 08:33 Dose: 1 mg Documented by: Magnesium Hydroxide (Magnesium Hydroxide Susp 30 Ml Udc) 30 ml PO DAILY PRN PRN Reason: Constipation Stop: 07/16/20 22:51 Perphenazine (Perphenazine 2 Mg Tablet) 4 mg PO BID PRN PRN Reason: paranoia Stop: 07/23/20 20:59 Last Admin: 06/24/20 07:56 Dose: 4 mg Documented by: Propranolol HCl (Propranolol Hcl 10 Mg Tab) 10 mg PO BID DONNIE Stop: 07/17/20 20:59 Last Admin: 06/26/20 08:33 Dose: 10 mg Documented by: Sodium Chloride (Sodium Chloride 0.65% Na Soln 45 Ml ([place])) 1 - 2 sprays NA PRN PRN PRN Reason: Nasal Dryness/Congestion Stop: 07/16/20 22:51 Mental Health & Subst Abuse Tx Psychiatrist Name of Psychiatrist: Tyra Redmond Psychiatrist's Date of Appointment with Psychiatrist: 07/23/20 Time of Appointment with Psychiatrist: [id number] Psychiatric Appointment Comment: [id number] Post Discharge Appointments Primary Care Physician Name Of Family Doctor: Jorge Spears [facility] Date of Appointment with PCP: 06/26/20 Time of Appointment with PCP: 10:20 a.m. Provider Appointment Comment: [id number] Neurologist Name of Neurologist: MARITZA Li Neurologist's Date of Appointment with Neurologist: 08/20/20 Time of Appointment with Neurologist: 10:30 a.m. Neurology Appointment Comment: [address] Contact Information Discharge Discharge Address: [address] [place] [address] [place] [address] (1) Psychosis Psychosis type: unspecified psychosis type Qualified Code(s): F29 - Unspecified psychosis not due to a substance or known physiological condition
[2020-06-26 10:46] LABS: Estimated Average Glucose 120 mg/dl; Hemoglobin A1C 5.8 % (4.5-5.6)
--- NOTE | 2020-06-26 13:34 | Neurology Progress Note ---
Date of Service June 26, 2020 Assessment & Plan (1) Tardive dyskinesia: Taniya Waterman is a 60 yo woman w/ PMH of bipolar disorder, HLD, hypothyroidism, HTN, and neuroleptic induced Parkinsonism/tardive dyskinesia whom neurology is consulted on for impaired memory, falls, and hallucinations. # Gait difficulty/recurrent falls: multifactorial likely due to the fact that her symptoms of tardive dyskinesia appear to have spread into her BLEs, mild neuropathy from prediabetes and cervical/lumbar radiculopathy - recommend starting valbenazine 40mg daily and uptitrating as tolerated for TD symptoms - recommend outpatient gait training when more stable from a psychiatric standpoint - would consider using clozapine or seroquel given mild parkinsonism on exam as these are less likely to cause movement disorders # Memory issues: B12/TSH WNL - can have outpatient neuropsych testing once more stable from a psychiatric standpoint and infection fully treated - would consider an alternative sleep agent temazepam if memory issues are prolo nged as benzos are generally recommended to be avoided if possible - recommend against benzos/opiates given Beers criteria to help prevent delirium/worsening memory symptoms - if she is ok with having an LP performed while admitted here, would have CSF sent for cell counts, glucose, protein, CSF VDRL, and CSF autoimmune encephalitis panel ([facility] preferred) - she can follow up with neurology outpatient as already scheduled after discharge Thank you for this interesting consult. Plan of care discussed with primary team. Please call or text with questions. (2) Falling: (3) Impaired fasting glucose: (4) Hypothyroidism: (5) Memory changes: Admission and Anticipated Discharge Date Admission Date: June 16, 2020 Subjective NAEs overnight. A1c 5.8, B12 590, TSH WNL. Reports that she is doing good but tired. Review of Systems Review of Systems: 10 point review of systems completed and negative except as in HPI. Results & Data ([facility]) Vital Signs (Past 12 Hours) Vital Signs Temp Pulse Resp BP 06/26/20 06:47 37 C 79 17 132/85 06/26/20 06:46 37 C Exam (Neuro) Physical Exam: General Exam: GEN: NAD, sitting in chair. HEENT: No conjunctival injection, no rhinorrhea. CV: RRR, no peripheral edema PULM: Nonlabored respirations on room air. Neuro Exam: MS: Awake and Alert. Oriented to person, place, and date. Speech fluent and appropriate without dysarthria or paraphasic errors. Language intact including naming, comprehension, repetition. Cognition and memory mildly impaired, delayed recall 1 of 3. Attention intact. No neglect. CN: Visual egan full. No extinction to double simultaneous stimuli. No optic disc edema on fundoscopic exam. PERRLA OU. EOMI without nystagmus. Facial sensation intact to LT. Facial muscles full and symmetric. Hearing intact to conversation. Uvula midline with symmetric palatal elevation. Shoulder shrug normal. Tongue midline. MOTOR: Normal bulk and tone, no clear cogwheeling. No pronator drift. BUE strength 5/5 at deltoids, biceps, triceps and hand grasp bilaterally. BLE strength 5/5 at iliopsoas, hamstrings, quadriceps, tibialis anterior, and gastrocnemius bilaterally. +frequent tardive dyskinesia of tongue and bilateral lower extremities. REFLEXES: 2+ at biceps, triceps, brachioradialis, 1+ patella and trace Achilles bilaterally. Flexor plantar responses bilaterally. SENSORY: Intact to LT/vibration without extinction to double simultaneous stimuli except in bilateral feet. COORDINATION: No dysmetria or ataxia on [id number] and [id number] bilaterally. Normal Jonh bilaterally. Normal heel taps and pull test. GAIT: Slow slightly broad based gait with normal arm swing. Normal Romberg. PG Care Time/CCT Total # of Minutes Spent Total Time Spent with Patient: Total time spent is greater than 50% in coordination of care (as documented) at patient's floor/unit and/or counseling patient: Coding Level of Care Code 46867 Subseq Hosp Care Lvl 3 Diagnoses Tardive dyskinesia G24.01 Falling R29.6 Impaired fasting glucose R73.01 Hypothyroidism E03.9 Memory changes R41.3
[2020-06-26] MEDS: ATORVASTATIN 20 MG TAB PO SCH (20:18)
[2020-06-26] MEDS: lamoTRIgine 100 MG TAB PO SCH (20:18)
[2020-06-27] MEDS: LEVOTHYROXINE SODIUM 100 MCG TABLET PO SCH (07:32)
[2020-06-27] MEDS: LORazepam 1 MG TAB PO SCH ×3 (08:21→20:26)
[2020-06-27] MEDS: FLUoxetine HCL 10 MG CAP PO SCH (08:22)
[2020-06-27] MEDS: GABAPENTIN 100 MG CAP PO SCH ×3 (08:22→20:27)
[2020-06-27] MEDS: ASPIRIN 81 MG ECTAB PO SCH (08:22)
[2020-06-27] MEDS: PROPRANOLOL HCL 10 MG TAB PO SCH ×2 (08:22→20:26)
[2020-06-27] MEDS: CARIPRAZINE HCL 3 MG PO SCH (08:22)
--- NOTE | 2020-06-27 16:45 | Psychiatric Progress Note ---
Date of Service June 27, 2020 Impression / Recommendations Impression 60-year-old female with a history of bipolar disorder type I, tardive dyskinesia, and decompensation over the past month and a half with impaired memory, multiple falls, dysarthria, and hallucinations. She had multiple ER visits at the end of April for falls and physical weakness, and due to lithium toxicity her lithium was discontinued, and due to EPS and tardive dyskinesia, Latuda was discontinued, and she was started on lamotrigine. Although lamotrigine was started at the end of April, it was just increased to 50 mg daily 06/06, and Vraylar 1.5 mg added. Her son brought her into the ER due to increasing confusion, incontinence, falls, and hallucinations. She appears delirious, but will need ongoing monitoring to clarify diagnosis and etiology. We are continuing standard titration of lamotrigine and attempting to limit overuse of antipsychotic medications given the patient's significant TD. Pt continues to be delusional and paranoid, and would not be able to tolerate the stress of community re-entry at this time. Reviewed. Patient appears almost delirious/catatonic and is tortured by paranoia. Normal MRI reviewed from Apr, outpatient notes reviewed and patient had been referred to neurology. Case has been reviewed with our neurology team and formal consultation was completed for gait instability/multiple falls/tardive dyskinesia - appreciate recommendations provided. Reviewed outpatient notes from [facility]. (1) Psychosis: 2/2 -complicated case, primary diagnosis unclear to me at this point. 2- month history of frequent falls, weakness, and abnormal involuntary movements. Hallucinations with fairly acute onset over the past couple of weeks, as well as memory impairment and significant disorganization on exam today. Minimal evidence of mood episode on my exam, but her outpatient clinician noted symptoms of depression at her last visit a week and a half ago. It would be very helpful to be able to monitor her symptoms around the clock. Differential includes delirium, mood related psychosis, cognitive disorder, or primary thought disorder. -Lamotrigine started a little over a month ago, and just increased to 50 mg daily a week and a half ago. We will continue the standard titration. Vraylar just started about 1 and half weeks ago, will continue 1.5 mg daily. 2/3 - Outpatient records reviewed and care coordinated as above. - Continue Vraylar 1.5mg daily. Fasting labs were checked 11/2019: TG 153, Hgb A1C 5.8% (est ave glucose 120). Will hold off on titrating Vraylar due to her tardive dyskinesia and fact that symptoms are improving. - AIMS today is 10; 3 for tongue movements, 2 for foot movements, 3 for overall severity, and 2 for patient awareness/mild distress. - Patient is slightly more organized in her thinking and speech today, oriented to self and place, but not time. Still confused, unable to find her room, requiring frequent redirection. She is demonstrating paranoia, sometimes direc jennifer at staff, but responded well to reassurance, and focus on her distressing emotions. 06/19 - Continue medication regimen as above, lamotrigine increasing to 100mg this evening. - Pt continues to be rather confused, but also paranoid. She continues to suggest that staff is talking about her, but has more recently been convinced that several family members are being locked in the various offices on the unit. - Continue attempt to limit antipsychotic medications as able, patient continues to respond well to redirection and reassurance from staff. 2 -The patient remains confused and floridly psychotic. Her delusions are mood congruent with depression. For example, today she tells me that she is to be punished because she has "killed [her] mother and father, and everyone in the family." She is also tearful and sobs through much of today's encounter. She also is experiencing auditory hallucinations that are consistent with the content of the delusions. -She appears not to be oriented to month or year. However, assessment of cognitive functioning is somewhat difficult because the patient is largely mute and is very quickly distracted by what appears to be auditory hallucinations. -The patient is able to tell us that her diagnosis is bipolar disorder and that she is in the hospital being treated for a mental illness. Although she claims to not know what medication she is currently taking, she was able to answer several questions regarding what medication she has or has not taken in the past. Today, reports that she has taken Prozac in the past and that has helped when she is depressed, at least to some extent. 2--reviewed past med trials, hesitant to use Haldol or thorazine given her TD and fall risk with latter. She refuses anyway. Did pill counts to confirm started date of Vraylar >2 weeks ago, will increase to 3 mg. Benzos are often helpful for catatonic features but need to watch gait. Start Ativan 0.5 mg TID prn and evaluate response/gait. d/c Sinequan prn as high dose and now on Prozac. d/c Vistaril given anticholinergic and also on Cogentin. Consider Trilafon if no immediate improvement on higher dose of Vraylar. 06/21--improved slightly today, will add standing order Ativan as tolerating 1 mg BID (am and evening meal) and decrease Restoril given am confusion. It is still possible that anticholinergic effects of Vistaril and ?Cogentin contributing to confusion. Will reassess Cogentin dosing tomorrow. 06/22--change Cogentin to prn, offer Trilafon BID prn to assess tolerability for additional coverage during Vraylar trial. D/C Restoril after tonight's dose. This will limit polypharmacy, case reviewed with Dr. Marks due to complexity and reconfirm impression of ongoing slow improvements. Will seek input from neurology on additional assessment here for falls and weakness with incontinence though gait and organization improving. Patient is limited historian/limited cooperation with neuro exam given psychosis. 06/24 -Multiple medication changes over the past few days, including addition of daytime lorazepam 1 mg twice daily, taper off of temazepam, increase of cariprazine to 3 mg daily, discontinuing scheduled benztropine, and addition of perphenazine 4 mg twice daily as needed. She remains on lamotrigine 100 mg daily (can be increased to 200 mg daily on 07/03/2020, per standard titration protocol). She received 4 mg perphenazine x 2 yesterday, and 1 so far today. Psychosis continues, with auditory hallucinations and paranoia/delusions of persecution. Given that we are trying to minimize antipsychotic burden due to her EPS, I will increase her lorazepam to 1 mg 3 times daily to target anxious distress and catatonia, but will need to watch for sedation and impaired gait. AIMS today is 12; 4 for tongue movements, 3 for severity, 2 for incapacitation, and 3 for patient awareness. 06/25 - Continue current medication regimen - patient does have reported moments confusion and visual hallucinations. There does seem to be a component of delirium superimposed on patient's psychosis, but unlikely to explain all of her current presentation. - During conversation today, patient is confused but not verbalizing delusions or paranoia - Neurology consult as outlined below 06/26 - Continue current medication regimen - will attempt to acquire valbenazine to target TD - Pt continues to have waxing and waning confusion, but symptoms of clinton psychosis do seem to be steadily improving - Staff continue to report concerns for gait instability - patient on formal 1:1 after sustaining minor falls 2 days ago. 06/27 -Continue current medication regimen. -The patient is continued to have waxing and waning confusion, but overall her periods of confusion seem to be less frequent and less prominent. -Our attempt to obtain authorization for coverage of valbenzaine have been unsuccessful. We are currently appealing the decision based on the fact that patient's tardive dyskinesia is so severe that she has trouble ingesting food a nd communicating orally. -Patient has been taken off one-to-one, but she is being closely monitored by staff. The patient has demonstrated that she is being very careful when ambulating. (2) Bipolar 1 disorder: 06/17 - Historical diagnosis, previous admission for alison. Recent medication adjustments made including discontinuing lithium and starting Vraylar and lamotrigine. Continue home meds for now while gathering additional information, spoke with Tyra Higgins to coordinate care. - Referring for B[facility] through [facility]. 06/18 -patient appears anxious and depressed today, son expresses concerns that she has been more depressed lately, which he attributes to her loss of independence and marital discord. Continue titration of lamotrigine, increase to 100mg daily tomorrow. 06/19 - Lamotrigine to increase to 100mg this evening - continue standard titration schedule to target mood concerns - Patient continues to present as primarily depressed and anxiety, frequently tearful and distressed on the unit - though much of this is likely related to a reaction to current psychotic symptoms. 06/20 -The patient continues to appear anxious and depressed. -She appears to be tolerating the titration of lamotrigine. -Sleep remains suboptimal. Appetite remains suboptimal. -I will offer the patient a trial of fluoxetine 10 mg daily with caution, given her diagnosis of bipolar disorder. She is currently taking 2 mood stabilizing agents. 06/21 Reviewed. 06/26 - Treatment plan as outlined under "Psychosis" 06/27 -See above. (3) Tardive dyskinesia: 06/17 -monitor abnormal involuntary movements, consider trial of Ingrezza, although I believe it is nonformulary -Consider neurology consult for assistance with increase in falls, weakness, and abnormal movements -she was [place] [facility] [place], and her appointment is sometime this month. 06/18 -patient's gait has been steady since admission, without falls. She is not demonstrating obvious signs of weakness here, is ambulating, getting in and out of chairs, and performing ADLs without difficulty. She reportedly has an out patient neurology appointment next week, will clarify that and may not need inpatient consultation 06/21--reviewed. 06/24 -case was reviewed with neurology over the weekend, and they did not suggest any further inpatient work-up of her weakness, recurrent falls, gait difficulties, given that she had a normal brain MRI and would not currently be able to tolerate an LP. Her outpatient neurology appointment has been rescheduled for 08/20/[address] Li. 06/25 - Will request formal neurology consultation at this point, patient has had 3 minor falls during her stay with two occurring yesterday - It is likely that there is a component of delirium at play presently, but there are outpatient reports that suggest these gait disturbances and weakness was occurring prior to her medication changes/psychiatric admission - Case had been reviewed with our neurology service, would appreciate any input from formal examination and evaluation. Consult placed for "unsteady gait, multiple falls, and tardive dyskinesia" - CMP and UA re-ordered given waxing and waning confusion - pt did have UA prior to admission that appeared to be contaminated. Pt does admit to urinary frequency, but says this is not new. 06/26 - Appreciate recommendations offered by our neurology service. - They also recommend initiating valbenazine 40mg for TD symptoms - Additional labs were also recommended: will order A1c, TSH reflex free T4, vit B12 - Recommendation for outpatient neuropsychological testing referral 06/27 -Today, the patient reports that she is pleased to tell us that she believes brittany t her tardive dyskinesia symptoms have improved somewhat, possibly after having taken Vyvanse consistently this week. -As noted above, coverage authorization for valbenazine 40 mg daily for her severe tardive dyskinesia is inexplicably been denied, and we are appealing the decision. The decision is based on the severity of the patient's symptoms and the degree to which the adversely affect her ability to eat and communicate verbally. Risk Factors Assessment Male: No : Yes Health Problems: Yes Mental Health Diagnoses: Yes Substance Use Disorders: No Previous Psychiatric Hospitalization: Yes Hopelessness: No Smoker: No Protective Factors Assessment : Yes Responsible for Young Children: No Employed: No Supportive Family: Yes Good Rapport with Provider: Yes Interval History Identifying Information ALVARO FRAIRE is a 60-year-old F who currently lives in [place] with her , has a history of bipolar disorder type I, and was admitted on 06/16/20 22:11 on a 201 voluntary commitment for psychosis. Chief Complaint "I am better. I would like to go home now.". Review of Systems Sleep Information Total Hours of Sleep: 8.5 Sleep Comments: pt on q-15 minute checks. pt appeared to sleep 3.75 hr during evening shift. pt with poor sleep, laying in bed most of the shift awake. pt on q-15 minute checks Meal Information Percent Meal Consumed - Breakfast: 50 Percent Meal Consumed - Lunch: 75 Percent Meal Consumed - Dinner: 40 Nutrition Comment: pt. only orders [employer]; states she doesn't ususally eat breakfast but plans to eat lunch Subjective Subjective Patient was seen & assessed and interval progress reviewed with treatment team. I met individually with the patient in order to assess her current mental status, evaluate her response to treatment, coordinate any necessary changes in the patient's treatment regimen with the patient, and address any issues questions and concerns that may arise. The patient began by telling me that she does feel that she has improved over the course of the past week. She remembers interactions with me a week ago, during my most recent previous contact with her, and she compares her condition at that time with her condition currently. She tells me that she is far less depressed, and notes that she feels that her medications are "helping." She also says that now that she is back taking Vyvanse her symptoms of tardive dyskinesia have improved. We had attempted to precertify the tardive dyskinesia medicine valbenazine 40 mg daily, but the request was denied and we are currently in the process of appealing the coverage decision. Patient was informed. She does note that her tardive dyskinesia has improved to the degree that she is now able to speak more clearly and is also notes that she is less likely to eject food from her mouth because of abnormal movements of her tonguealthough this is still occurring. Today, the patient says that other ways in which she has improved include the fact that she is no longer experiencing auditory hallucinations. She notes that she no longer believes that she has killed her family and, further, she proudly shows me magana that her has sent her here in the hospital and notes that her fear that he was rejecting her and that he would not allow her to come home following the hospitalization were mistaken. However, not long after our encounter, the patient told a nurse that she may need protection because she believes that someone may be coming onto the unit to "shoot [her]." She has been participating in group and recreational therapies and has generally been ap propriate in the milieu. Nevertheless, we are concerned because she remains somewhat confused. The patient, herself, says that she is confused and periodically, when asked, is not oriented to year. Today, she had difficulty identifying the month, but correctly said that it was the "12th." Physical Exam Psychiatric Orientation: alert, oriented to person, oriented to place and cooperative Apperance: appropriately dressed, appropriately groomed and appeared stated age Eye Contact: + fair eye contact Choreoathetoid movements that involve her extremities as well as her facial musculature and tongue. These movements are consistent with tardive dyskinesia. Because of the patient's tardive dyskinesia her speech is adversely affected. Within this context, she continues to speak in a somewhat halting and deliberate fashion. Affect: + anxious affect "A lot better." Thought Process: goal directed thought process and + concrete thought process Thought Content: + delusions ("Someone is trying to shoot me.") Suicidal Thoughts: denies suicidal thoughts Homicidal Thoughts: denies homicidal thoughts Hallucinations: no auditory hallucinations Cognition: recent memory grossly intact and remote memory grossly intact Estimated Intelligence: average estimated intelligence Insight: + limited insight Judgement: + fair judgement Vital Signs (Past 24 Hours) Last Vital Signs Temp 36.6 C 06/27/20 06:56 Pulse 87 06/27/20 06:56 Resp 18 06/27/20 06:56 BP 148/86 H 06/27/20 06:56 Pulse Ox 99 06/16/20 23:03 Results & Data ([facility]) Current Inpatient Medications Current Inpatient Medications: Current Inpatient Medications Acetaminophen (Acetaminophen 325 Mg Tab) 650 mg PO Q4H PRN PRN Reason: Headache or Minor Fever Stop: 07/16/20 22:51 Last Admin: 06/26/20 08:54 Dose: 650 mg Documented by: Al Hydrox/Mg Hydrox/Simethicone (Aluminum/Magnesium Susp 30 Ml Udc) 30 ml PO Q4H PRN PRN Reason: GI Upset Stop: 07/16/20 22:51 Aspirin (Aspirin 81 Mg Ectab) 81 mg PO DAILY DONNIE Stop: 07/18/20 08:59 Last Admin: 06/27/20 08:22 Dose: 81 mg Documented by: Atorvastatin Calcium (Atorvastatin 20 Mg Tab) 20 mg PO HS DONNIE Stop: 07/17/20 21:59 Last Admin: 06/26/20 20:18 Dose: 20 mg Documented by: Benztropine Mesylate (Benztropine Mesylate 1 Mg Tab) 1 mg PO BID PRN PRN Reason: Muscle Spasm Stop: 07/17/20 20:59 Last Admin: 06/24/20 07:57 Dose: 1 mg Documented by: Bismuth Subsalicylate (Bismuth Subsalicylate Liqd 236 Ml) 15 ml PO PRN PRN PRN Reason: Loose Stool Stop: 07/16/20 22:51 Cariprazine (Cariprazine Hcl 3mg Capsule) 1 ea PO DAILY DONNIE Stop: 07/26/20 08:59 Last Admin: 06/27/20 08:22 Dose: 1 ea Documented by: Fluoxetine HCl (Fluoxetine Hcl 10 Mg Cap) 10 mg PO QAM DONNIE Stop: 07/20/20 10:14 Last Admin: 06/27/20 08:22 Dose: 10 mg Documented by: Gabapentin (Gabapentin 100 Mg Cap) 100 mg PO TID DONNIE Stop: 07/17/20 13:59 Last Admin: 06/27/20 13:47 Dose: 100 mg Documented by: Lamotrigine (Lamotrigine 100 Mg Tab) 100 mg PO HS DONNIE Stop: 07/19/20 21:59 Last Admin: 06/26/20 20:18 Dose: 100 mg Documented by: Levothyroxine Sodium (Levothyroxine Sodium 100 Mcg Tablet) 100 mcg PO DAILYBB [facility] Stop: 07/18/20 07:59 Last Admin: 06/27/20 07:32 Dose: 100 mcg Documented by: Lorazepam (Lorazepam 0.5 Mg Tab) 0.5 mg PO TID PRN PRN Reason: anxiety Stop: 07/21/20 11:00 Last Admin: 06/25/20 17:08 Dose: 0.5 mg Documented by: Lorazepam (Lorazepam 1 Mg Tab) 1 mg PO TID DONNIE Stop: 07/24/20 13:59 Last Admin: 06/27/20 13:47 Dose: 1 mg Documented by: Magnesium Hydroxide (Magnesium Hydroxide Susp 30 Ml Udc) 30 ml PO DAILY PRN PRN Reason: Constipation Stop: 07/16/20 22:51 Perphenazine (Perphenazine 2 Mg Tablet) 4 mg PO BID PRN PRN Reason: paranoia Stop: 07/23/20 20:59 Last Admin: 06/24/20 07:56 Dose: 4 mg Documented by: Propranolol HCl (Propranolol Hcl 10 Mg Tab) 10 mg PO BID DONNIE Stop: 07/17/20 20:59 Last Admin: 06/27/20 08:22 Dose: 10 mg Documented by: Sodium Chloride (Sodium Chloride 0.65% Na Soln 45 Ml (Pateros)) 1 - 2 sprays NA PRN PRN PRN Reason: Nasal Dryness/Congestion Stop: 07/16/20 22:51 Mental Health & Subst Abuse Tx Psychiatrist Name of Psychiatrist: Tyra Redmond Psychiatrist's Date of Appointment with Psychiatrist: 07/23/20 Time of Appointment with Psychiatrist: [id number] Psychiatric Appointment Comment: [id number] [facility] Post Discharge Appointments Primary Care Physician Name Of Family Doctor: Jorge Spears [facility] Date of Appointment with PCP: 06/26/20 Time of Appointment with PCP: 10:20 a.m. Provider Appointment Comment: [id number] [facility] Neurologist Name of Neurologist: MARITZA Li Neurologist's Date of Appointment with Neurologist: 08/20/20 Time of Appointment with Neurologist: 10:30 a.m. Neurology Appointment Comment: [address] Contact Information Discharge Discharge Address: [address] [place] [address] [place] [address] (1) Psychosis Psychosis type: unspecified psychosis type Qualified Code(s): F29 - Unsp ecified psychosis not due to a substance or known physiological condition
[2020-06-27] MEDS: ATORVASTATIN 20 MG TAB PO SCH (20:27)
[2020-06-27] MEDS: lamoTRIgine 100 MG TAB PO SCH (20:27)
[2020-06-27] MEDS: LORazepam 0.5 MG TAB PO PRN (22:50)
--- NOTE | 2020-06-28 07:43 | Psychiatric Progress Note ---
Date of Service June 28, 2020 Impression / Recommendations Impression 60-year-old female with a history of bipolar disorder type I, tardive dyskinesia, and decompensation over the past month and a half with impaired memory, multiple falls, dysarthria, and hallucinations. She had multiple ER visits at the end of April for falls and physical weakness, and due to lithium toxicity her lithium was discontinued, and due to EPS and tardive dyskinesia, Latuda was discontinued, and she was started on lamotrigine. Although lamotrigine was started at the end of April, it was just increased to 50 mg daily 06/06, and Vraylar 1.5 mg added. Her son brought her into the ER due to increasing confusion, incontinence, falls, and hallucinations. She appears delirious, but will need ongoing monitoring to clarify diagnosis and etiology. We are continuing standard titration of lamotrigine and attempting to limit overuse of antipsychotic medications given the patient's significant TD. Pt continues to be delusional and paranoid, and would not be able to tolerate the stress of community re-entry at this time. Reviewed. Patient appears almost delirious/catatonic and is tortured by paranoia. Normal MRI reviewed from Apr, outpatient notes reviewed and patient had been referred to neurology. Case has been reviewed with our neurology team and formal consultation was completed for gait instability/multiple falls/tardive dyskinesia - appreciate recommendations provided. Reviewed outpatient notes from [place]. (1) Psychosis: 2/2 -complicated case, primary diagnosis unclear to me at this point. 2- month history of frequent falls, weakness, and abnormal involuntary movements. Hallucinations with fairly acute onset over the past couple of weeks, as well as memory impairment and significant disorganization on exam today. Minimal evidence of mood episode on my exam, but her outpatient clinician noted symptoms of depression at her last visit a week and a half ago. It would be very helpful to be able to monitor her symptoms around the clock. Differential includes delirium, mood related psychosis, cognitive disorder, or primary thought disorder. -Lamotrigine started a little over a month ago, and just increased to 50 mg daily a week and a half ago. We will continue the standard titration. Vraylar just started about 1 and half weeks ago, will continue 1.5 mg daily. 2/3 - Outpatient records reviewed and care coordinated as above. - Continue Vraylar 1.5mg daily. Fasting labs were checked 11/2019: TG 153, Hgb A1C 5.8% (est ave glucose 120). Will hold off on titrating Vraylar due to her tardive dyskinesia and fact that symptoms are improving. - AIMS today is 10; 3 for tongue movements, 2 for foot movements, 3 for overall severity, and 2 for patient awareness/mild distress. - Patient is slightly more organized in her thinking and speech today, oriented to self and place, but not time. Still confused, unable to find her room, requiring frequent redirection. She is demonstrating paranoia, sometimes direc jennifer at staff, but responded well to reassurance, and focus on her distressing emotions. 06/19 - Continue medication regimen as above, lamotrigine increasing to 100mg this evening. - Pt continues to be rather confused, but also paranoid. She continues to suggest that staff is talking about her, but has more recently been convinced that several family members are being locked in the various offices on the unit. - Continue attempt to limit antipsychotic medications as able, patient continues to respond well to redirection and reassurance from staff. 2 -The patient remains confused and floridly psychotic. Her delusions are mood congruent with depression. For example, today she tells me that she is to be punished because she has "killed [her] mother and father, and everyone in the family." She is also tearful and sobs through much of today's encounter. She also is experiencing auditory hallucinations that are consistent with the content of the delusions. -She appears not to be oriented to month or year. However, assessment of cognitive functioning is somewhat difficult because the patient is largely mute and is very quickly distracted by what appears to be auditory hallucinations. -The patient is able to tell us that her diagnosis is bipolar disorder and that she is in the hospital being treated for a mental illness. Although she claims to not know what medication she is currently taking, she was able to answer several questions regarding what medication she has or has not taken in the past. Today, reports that she has taken Prozac in the past and that has helped when she is depressed, at least to some extent. 2--reviewed past med trials, hesitant to use Haldol or thorazine given her TD and fall risk with latter. She refuses anyway. Did pill counts to confirm started date of Vraylar >2 weeks ago, will increase to 3 mg. Benzos are often helpful for catatonic features but need to watch gait. Start Ativan 0.5 mg TID prn and evaluate response/gait. d/c Sinequan prn as high dose and now on Prozac. d/c Vistaril given anticholinergic and also on Cogentin. Consider Trilafon if no immediate improvement on higher dose of Vraylar. 06/21--improved slightly today, will add standing order Ativan as tolerating 1 mg BID (am and evening meal) and decrease Restoril given am confusion. It is still possible that anticholinergic effects of Vistaril and ?Cogentin contributing to confusion. Will reassess Cogentin dosing tomorrow. 06/22--change Cogentin to prn, offer Trilafon BID prn to assess tolerability for additional coverage during Vraylar trial. D/C Restoril after tonight's dose. This will limit polypharmacy, case reviewed with Dr. Marks due to complexity and reconfirm impression of ongoing slow improvements. Will seek input from neurology on additional assessment here for falls and weakness with incontinence though gait and organization improving. Patient is limited historian/limited cooperation with neuro exam given psychosis. 06/24 -Multiple medication changes over the past few days, including addition of daytime lorazepam 1 mg twice daily, taper off of temazepam, increase of cariprazine to 3 mg daily, discontinuing scheduled benztropine, and addition of perphenazine 4 mg twice daily as needed. She remains on lamotrigine 100 mg daily (can be increased to 200 mg daily on 07/03/2020, per standard titration protocol). She received 4 mg perphenazine x 2 yesterday, and 1 so far today. Psychosis continues, with auditory hallucinations and paranoia/delusions of persecution. Given that we are trying to minimize antipsychotic burden due to her EPS, I will increase her lorazepam to 1 mg 3 times daily to target anxious distress and catatonia, but will need to watch for sedation and impaired gait. AIMS today is 12; 4 for tongue movements, 3 for severity, 2 for incapacitation, and 3 for patient awareness. 06/25 - Continue current medication regimen - patient does have reported moments confusion and visual hallucinations. There does seem to be a component of delirium superimposed on patient's psychosis, but unlikely to explain all of her current presentation. - During conversation today, patient is confused but not verbalizing delusions or paranoia - Neurology consult as outlined below 06/26 - Continue current medication regimen - will attempt to acquire valbenazine to target TD - Pt continues to have waxing and waning confusion, but symptoms of clinton psychosis do seem to be steadily improving - Staff continue to report concerns for gait instability - patient on formal 1:1 after sustaining minor falls 2 days ago. 06/27 -Continue current medication regimen. -The patient is continued to have waxing and waning confusion, but overall her periods of confusion seem to be less frequent and less prominent. -Our attempt to obtain authorization for coverage of valbenzaine have been unsuccessful. We are currently appealing the decision based on the fact that patient's tardive dyskinesia is so severe that she has trouble ingesting food a nd communicating orally. -Patient has been taken off one-to-one, but she is being closely monitored by staff. The patient has demonstrated that she is being very careful when ambulating. 06/28 - Tapering lorazepam - 0.5mg at 0900 and 1400, and maintaining 1mg dose qHS. Continue Vraylar, Lamictal, and Prozac. - Pt continues to have waxing and waning of confusion - intermittently requiring staff redirection - Pt stating today that she just learned her father , and believes he is being buried today. Still intermittently believes her family is hidden around the unit. (2) Bipolar 1 disorder: 2/ - Historical diagnosis, previous admission for alison. Recent medication adjustments made including discontinuing lithium and starting Vraylar and lamotrigine. Continue home meds for now while gathering additional information, spoke with Tyra Higgins to coordinate care. - Referring for B[facility] through [facility]. 23 -patient appears anxious and depressed today, son expresses concerns that she has been more depressed lately, which he attributes to her loss of independence and marital discord. Continue titration of lamotrigine, increase to 100mg daily tomorrow. 06/19 - Lamotrigine to increase to 100mg this evening - continue standard titration schedule to target mood concerns - Patient continues to present as primarily depressed and anxiety, frequently tearful and distressed on the unit - though much of this is likely related to a reaction to current psychotic symptoms. 06/20 -The patient continues to appear anxious and depressed. -She appears to be tolerating the titration of lamotrigine. -Sleep remains suboptimal. Appetite remains suboptimal. -I will offer the patient a trial of fluoxetine 10 mg daily with caution, given her diagnosis of bipolar disorder. She is currently taking 2 mood stabilizing agents. 06/21 Reviewed. 06/26 - Treatment plan as outlined under "Psychosis" 06/27 -See above. (3) Tardive dyskinesia: 06/17 -monitor abnormal involuntary movements, consider trial of Ingrezza, although I believe it is nonformulary -Consider neurology consult for assistance with increase in falls, weakness, and abnormal movements -she was apparently referred to [facility] 4 months ago, and her appointment is sometime this month. 06/18 -patient's gait has been steady since admission, without falls. She is not demonstrating obvious signs of weakness here, is ambulating, getting in and out of chairs, and performing ADLs without difficulty. She reportedly has an outpatient neurology appointment next week, will clarify that and may not need inpatient consultation 06/21--reviewed. 06/24 -case was reviewed with neurology over the weekend, and they did not suggest any further inpatient work-up of her weakness, recurrent falls, gait difficulties, given that she had a normal brain MRI and would not currently be able to tolerate an LP. Her outpatient neurology appointment has been rescheduled for 08/20/[address] Li. 06/25 - Will request formal neurology consultation at this point, patient has had 3 minor falls during her stay with two occurring yesterday - It is likely that there is a component of delirium at play presently, but there are outpatient reports that suggest these gait disturbances and weakness was occurring prior to her medication changes/psychiatric admission - Case had been reviewed with our neurology service, would appreciate any input from formal examination and evaluation. Consult placed for "unsteady gait, multiple falls, and tardive dyskinesia" - CMP and UA re-ordered given waxing and waning confusion - pt did have UA prior to admission that appeared to be contaminated. Pt does admit to urinary frequency, but says this is not new. 06/26 - Appreciate recommendations offered by our neurology service. - They also recommend initiating valbenazine 40mg for TD symptoms - Additional labs were also recommended: will order A1c, TSH reflex free T4, vit B12 - Recommendation for outpatient neuropsychological testing referral 06/27 -Today, the patient reports that she is pleased to tell us that she believes that her tardive dyskinesia symptoms have improved somewhat, possibly after having taken [Vraylar] consistently this week. -As noted above, coverage authorization for valbenazine 40 mg daily for her severe tardive dyskinesia is inexplicably been denied, and we are appealing the decision. The decision is based on the severity of the patient's symptoms and the degree to which the adversely affect her ability to eat and communicate verbally. 06/28 - Received notification that Ingrezza 40mg has been approved - attempting to determine cost for use and specialty pharmacy that can provide the prescription. Risk Factors Assessment Male: No : Yes Health Problems: Yes Mental Health Diagnoses: Yes Substance Use Disorders: No Previous Psychiatric Hospitalization: Yes Hopelessness: No Smoker: No Protective Factors Assessment : Yes Responsible for Young Children: No Employed: No Supportive Family: Yes Good Rapport with Provider: Yes Interval History Identifying Information ALVARO FRAIRE is a 60-year-old F who currently lives in [place] with her , has a history of bipolar disorder type I, and was admitted on 06/16/20 22:11 on a 201 voluntary commitment for psychosis. Chief Complaint "I'm ok." Review of Systems Notes Constitutional: admits to daytime fatigue Cardiovascular: denied Respiratory: denied Gastrointestinal: denied Neurological: denied Psychiatric: denies symptoms other than stated above Total of at least 10 systems reviewed, pertinent positives as above and in HPI. Sleep Information Total Hours of Sleep: 4.5 Sleep Comments: Patient's sleep was broken through the night. She required redirection and assistance to get back into bed. Meal Information Percent Meal Consumed - Breakfast: 50 Percent Meal Consumed - Lunch: 75 Percent Meal Consumed - Dinner: 90 Nutrition Comment: pt. only orders [employer]; states she doesn't ususally eat breakfast but plans to eat lunch Subjective Subjective Patient was seen & assessed and interval progress reviewed with nursing and social work. Staff report the patient has been participating in groups, with ongoing waxing and waning of confusion. Last evening she was less labile and r ated her mood an 8/10. Pt was seen early this morning as she was observed to be sitting out in the day area before breakfast. She seemed to be rather lucid at this time, able to recall the name of the provider she met with yesterday and sharing pieces of her day. Pt was able to engaging in a superficial, but reality-based conversation regarding her treatment. She continues to report desire for discharge but seems understanding of ongoing concerns for confusion. Pt was updated on progress of Ingrezza approval. She denies hallucinations and delusions. She does seem a bit confused at the end of our conversation, believing that breakfast had already come and she was waiting for group to start. As the day went on, this provider observed episodes of increased confusion. Pt presented to the nurses' station and appeared tearful, asking staff if her father had just . Pt was asked why this has been on her mind, and she stated "I don't know." Pt did agree to walk laps with staff, and she continues to respond to reassurance and redirection. Pt was reportedly seeing cats in the hallway and continued to believe her family was hidden in different areas of the unit. Physical Exam Psychiatric Orientation: alert, oriented to person and oriented to place Apperance: appropriately dressed, + disheveled and appeared stated age Eye Contact: + fair eye contact Motor Behavior: steady gait and station and + EPS (TD) Speech: normal rate/rhythm/volume of speech Affect: + blunted affect (appearing fatigued this morning) and + constricted affect Mood: no depressed mood and no anxious mood Thought Process: goal directed thought process and + concrete thought process Thought Content: reality based without delusions; no hopelessness and no worthlessness Suicidal Thoughts: denies suicidal thoughts Hallucinations: no auditory hallucinations and no visual hallucinations Cognition: attention grossly intact and language grossly intact Insight: + impaired insight Judgement: + impaired judgement Vital Signs (Past 24 Hours) Last Vital Signs Temp 36.5 C 06/28/20 06:31 Pulse 72 06/28/20 06:32 Resp 18 06/28/20 06:31 BP 127/90 06/28/20 06:32 Pulse Ox 99 06/16/20 23:03 Results & Data ([facility]) Current Inpatient Medications Current Inpatient Medications: Current Inpatient Medications Acetaminophen (Acetaminophen 325 Mg Tab) 650 mg PO Q4H PRN PRN Reason: Headache or Minor Fever Stop: 07/16/20 22:51 Last Admin: 06/26/20 08:54 Dose: 650 mg Documented by: Al Hydrox/Mg Hydrox/Simethicone (Aluminum/Magnesium Susp 30 Ml Udc) 30 ml PO Q4H PRN PRN Reason: GI Upset Stop: 07/16/20 22:51 Aspirin (Aspirin 81 Mg Ectab) 81 mg PO DAILY DONNIE Stop: 07/18/20 08:59 Last Admin: 06/27/20 08:22 Dose: 81 mg Documented by: Atorvastatin Calcium (Atorvastatin 20 Mg Tab) 20 mg PO HS [facility] Stop: 07/17/20 21:59 Last Admin: 06/27/20 20:27 Dose: 20 mg Documented by: Benztropine Mesylate (Benztropine Mesylate 1 Mg Tab) 1 mg PO BID PRN PRN Reason: Muscle Spasm Stop: 07/17/20 20:59 Last Admin: 06/24/20 07:57 Dose: 1 mg Documented by: Bismuth Subsalicylate (Bismuth Subsalicylate Liqd 236 Ml) 15 ml PO PRN PRN PRN Reason: Loose Stool Stop: 07/16/20 22:51 Cariprazine (Cariprazine Hcl 3mg Capsule) 1 ea PO DAILY [facility] Stop: 07/26/20 08:59 Last Admin: 06/27/20 08:22 Dose: 1 ea Documented by: Fluoxetine HCl (Fluoxetine Hcl 10 Mg Cap) 10 mg PO QAM [facility] Stop: 07/20/20 10:14 Last Admin: 06/27/20 08:22 Dose: 10 mg Documented by: Gabapentin (Gabapentin 100 Mg Cap) 100 mg PO TID [facility] Stop: 07/17/20 13:59 Last Admin: 06/27/20 20:27 Dose: 100 mg Documented by: Lamotrigine (Lamotrigine 100 Mg Tab) 100 mg PO [facility] Stop: 07/19/20 21:59 Last Admin: 06/27/20 20:27 Dose: 100 mg Documented by: Levothyroxine Sodium (Levothyroxine Sodium 100 Mcg Tablet) [facility] Stop: 07/18/20 07:59 Last Admin: 06/27/20 07:32 Dose: 100 mcg Documented by: Lorazepam (Lorazepam 0.5 Mg Tab) 0.5 mg PO TID PRN PRN Reason: anxiety Stop: 07/21/20 11:00 Last Admin: 06/27/20 22:50 Dose: 0.5 mg Documented by: Lorazepam (Lorazepam 1 Mg Tab) 1 mg PO TID DONNIE Stop: 07/24/20 13:59 Last Admin: 06/27/20 20:26 Dose: 1 mg Documented by: Magnesium Hydroxide (Magnesium Hydroxide Susp 30 Ml Udc) 30 ml PO DAILY PRN PRN Reason: Constipation Stop: 07/16/20 22:51 Perphenazine (Perphenazine 2 Mg Tablet) 4 mg PO BID PRN PRN Reason: paranoia Stop: 07/23/20 20:59 Last Admin: 06/24/20 07:56 Dose: 4 mg Documented by: Propranolol HCl (Propranolol Hcl 10 Mg Tab) 10 mg PO BID DONNIE Stop: 07/17/20 20:59 Last Admin: 06/27/20 20:26 Dose: 10 mg Documented by: Sodium Chloride (Sodium Chloride 0.65% Na Soln 45 Ml ([place]ley)) 1 - 2 sprays NA PRN PRN PRN Reason: Nasal Dryness/Congestion Stop: 07/16/20 22:51 Mental Health & Subst Abuse Tx Psychiatrist Name of Psychiatrist: Tyra Redmond Psychiatrist's Date of Appointment with Psychiatrist: 07/23/20 Time of Appointment with Psychiatrist: [id number] Psychiatric Appointment Comment: [facility] Post Discharge Appointments Primary Care Physician Name Of Family Doctor: Jorge Spears [facility] Date of Appointment with PCP: 06/26/20 Time of Appointment with PCP: 10:20 a.m. Provider Appointment Comment: [facility] Neurologist Name of Neurologist: MARITZA Li Neurologist's Date of Appointment with Neurologist: 08/20/20 Time of Appointment with Neurologist: 10:30 a.m. Neurology Appointment Comment: [facility] [address] Contact Information Discharge Discharge Address: [address] [place] [address] [place] [address] (1) Psychosis Psychosis type: unspecified psychosis type Qualified Code(s): F29 - Unspecified psychosis not due to a substance or known physiological condition
[2020-06-28] MEDS: PROPRANOLOL HCL 10 MG TAB PO SCH ×2 (07:57→21:28)
[2020-06-28] MEDS: LEVOTHYROXINE SODIUM 100 MCG TABLET PO SCH (07:57)
[2020-06-28] MEDS: LORazepam 1 MG TAB PO SCH ×2 (07:57→21:29)
[2020-06-28] MEDS: ASPIRIN 81 MG ECTAB PO SCH (07:57)
[2020-06-28] MEDS: FLUoxetine HCL 10 MG CAP PO SCH (07:58)
[2020-06-28] MEDS: CARIPRAZINE HCL 3 MG PO SCH (07:58)
[2020-06-28] MEDS: GABAPENTIN 100 MG CAP PO SCH ×3 (07:58→21:28)
[2020-06-28] MEDS: LORazepam 0.5 MG TAB PO SCH (14:14)
[2020-06-28] MEDS: lamoTRIgine 100 MG TAB PO SCH (21:29)
[2020-06-28] MEDS: ATORVASTATIN 20 MG TAB PO SCH (21:30)
[2020-06-29] MEDS: LORazepam 0.5 MG TAB PO SCH ×2 (07:40→14:02)
[2020-06-29] MEDS: ASPIRIN 81 MG ECTAB PO SCH (07:40)
[2020-06-29] MEDS: LEVOTHYROXINE SODIUM 100 MCG TABLET PO SCH (07:40)
[2020-06-29] MEDS: GABAPENTIN 100 MG CAP PO SCH ×3 (07:41→20:41)
[2020-06-29] MEDS: FLUoxetine HCL 10 MG CAP PO SCH (07:41)
[2020-06-29] MEDS: PROPRANOLOL HCL 10 MG TAB PO SCH ×2 (07:41→20:40)
[2020-06-29] MEDS: CARIPRAZINE HCL 3 MG PO SCH (07:42)
--- NOTE | 2020-06-29 07:51 | Psychiatric Progress Note ---
Date of Service June 29, 2020 Impression / Recommendations Impression 60-year-old female with a history of bipolar disorder type I, tardive dyskinesia, and decompensation over the past month and a half with impaired memory, multiple falls, dysarthria, and hallucinations. She had multiple ER visits at the end of April for falls and physical weakness, and due to lithium toxicity her lithium was discontinued, and due to EPS and tardive dyskinesia, Latuda was discontinued, and she was started on lamotrigine. Although lamotrigine was started at the end of April, it was just increased to 50 mg daily 06/06, and Vraylar 1.5 mg added. Her son brought her into the ER due to increasing confusion, incontinence, falls, and hallucinations. She appears delirious, but will need ongoing monitoring to clarify diagnosis and etiology. We are continuing standard titration of lamotrigine and attempting to limit overuse of antipsychotic medications given the patient's significant TD. Pt continues to be delusional and paranoid, and would not be able to tolerate the stress of community re-entry at this time. Reviewed. Patient appears almost delirious/catatonic and is tortured by paranoia. Normal MRI reviewed from Apr, outpatient notes reviewed and patient had been referred to neurology. Case has been reviewed with our neurology team and formal consultation was completed for gait instability/multiple falls/tardive dyskinesia - appreciate recommendations provided. Reviewed outpatient notes from [facility]. (1) Psychosis: 2/2 -complicated case, primary diagnosis unclear to me at this point. 2- month history of frequent falls, weakness, and abnormal involuntary movements. Hallucinations with fairly acute onset over the past couple of weeks, as well as memory impairment and significant disorganization on exam today. Minimal evidence of mood episode on my exam, but her outpatient clinician noted symptoms of depression at her last visit a week and a half ago. It would be very helpful to be able to monitor her symptoms around the clock. Differential includes delirium, mood related psychosis, cognitive disorder, or primary thought disorder. -Lamotrigine started a little over a month ago, and just increased to 50 mg daily a week and a half ago. We will continue the standard titration. Vraylar just started about 1 and half weeks ago, will continue 1.5 mg daily. 2/3 - Outpatient records reviewed and care coordinated as above. - Continue Vraylar 1.5mg daily. Fasting labs were checked 11/2019: TG 153, Hgb A1C 5.8% (est ave glucose 120). Will hold off on titrating Vraylar due to her tardive dyskinesia and fact that symptoms are improving. - AIMS today is 10; 3 for tongue movements, 2 for foot movements, 3 for overall severity, and 2 for patient awareness/mild distress. - Patient is slightly more organized in her thinking and speech today, oriented to self and place, but not time. Still confused, unable to find her room, requiring frequent redirection. She is demonstrating paranoia, sometimes direc jennifer at staff, but responded well to reassurance, and focus on her distressing emotions. 06/19 - Continue medication regimen as above, lamotrigine increasing to 100mg this evening. - Pt continues to be rather confused, but also paranoid. She continues to suggest that staff is talking about her, but has more recently been convinced that several family members are being locked in the various offices on the unit. - Continue attempt to limit antipsychotic medications as able, patient continues to respond well to redirection and reassurance from staff. 2 -The patient remains confused and floridly psychotic. Her delusions are mood congruent with depression. For example, today she tells me that she is to be punished because she has "killed [her] mother and father, and everyone in the family." She is also tearful and sobs through much of today's encounter. She also is experiencing auditory hallucinations that are consistent with the content of the delusions. -She appears not to be oriented to month or year. However, assessment of cognitive functioning is somewhat difficult because the patient is largely mute and is very quickly distracted by what appears to be auditory hallucinations. -The patient is able to tell us that her diagnosis is bipolar disorder and that she is in the hospital being treated for a mental illness. Although she claims to not know what medication she is currently taking, she was able to answer several questions regarding what medication she has or has not taken in the past. Today, reports that she has taken Prozac in the past and that has helped when she is depressed, at least to some extent. 2--reviewed past med trials, hesitant to use Haldol or thorazine given her TD and fall risk with latter. She refuses anyway. Did pill counts to confirm started date of Vraylar >2 weeks ago, will increase to 3 mg. Benzos are often helpful for catatonic features but need to watch gait. Start Ativan 0.5 mg TID prn and evaluate response/gait. d/c Sinequan prn as high dose and now on Prozac. d/c Vistaril given anticholinergic and also on Cogentin. Consider Trilafon if no immediate improvement on higher dose of Vraylar. 06/21--improved slightly today, will add standing order Ativan as tolerating 1 mg BID (am and evening meal) and decrease Restoril given am confusion. It is still possible that anticholinergic effects of Vistaril and ?Cogentin contributing to confusion. Will reassess Cogentin dosing tomorrow. 06/22--change Cogentin to prn, offer Trilafon BID prn to assess tolerability for additional coverage during Vraylar trial. D/C Restoril after tonight's dose. This will limit polypharmacy, case reviewed with Dr. aMrks due to complexity and reconfirm impression of ongoing slow improvements. Will seek input from neurology on additional assessment here for falls and weakness with incontinence though gait and organization improving. Patient is limited historian/limited cooperation with neuro exam given psychosis. 06/24 -Multiple medication changes over the past few days, including addition of daytime lorazepam 1 mg twice daily, taper off of temazepam, increase of cariprazine to 3 mg daily, discontinuing scheduled benztropine, and addition of perphenazine 4 mg twice daily as needed. She remains on lamotrigine 100 mg daily (can be increased to 200 mg daily on 07/03/2020, per standard titration protocol). She received 4 mg perphenazine x 2 yesterday, and 1 so far today. Psychosis continues, with auditory hallucinations and paranoia/delusions of persecution. Given that we are trying to minimize antipsychotic burden due to her EPS, I will increase her lorazepam to 1 mg 3 times daily to target anxious distress and catatonia, but will need to watch for sedation and impaired gait. AIMS today is 12; 4 for tongue movements, 3 for severity, 2 for incapacitation, and 3 for patient awareness. 06/25 - Continue current medication regimen - patient does have reported moments confusion and visual hallucinations. There does seem to be a component of delirium superimposed on patient's psychosis, but unlikely to explain all of her current presentation. - During conversation today, patient is confused but not verbalizing delusions or paranoia - Neurology consult as outlined below 06/26 - Continue current medication regimen - will attempt to acquire valbenazine to target TD - Pt continues to have waxing and waning confusion, but symptoms of clinton psychosis do seem to be steadily improving - Staff continue to report concerns for gait instability - patient on formal 1:1 after sustaining minor falls 2 days ago. 06/27 -Continue current medication regimen. -The patient is continued to have waxing and waning confusion, but overall her periods of confusion seem to be less frequent and less prominent. -Our attempt to obtain authorization for coverage of valbenzaine have been unsuccessful. We are currently appealing the decision based on the fact that patient's tardive dyskinesia is so severe that she has trouble ingesting food a nd communicating orally. -Patient has been taken off one-to-one, but she is being closely monitored by staff. The patient has demonstrated that she is being very careful when ambulating. 06/28 - Tapering lorazepam - 0.5mg at 0900 and 1400, and maintaining 1mg dose qHS. Continue Vraylar, Lamictal, and Prozac. - Pt continues to have waxing and waning of confusion - intermittently requiring staff redirection - Pt stating today that she just learned her father , and believes he is being buried today. Still intermittently believes her family is hidden around the unit. 06/29 - Continue current medication regimen - patient still having episodes of confusion, visual hallucinations, delusions, and paranoia. - Pt will likely require additional time to stabilize, though continues to have slow improvement. (2) Bipolar 1 disorder: 2 - Historical diagnosis, previous admission for alison. Recent medication adjustments made including discontinuing lithium and starting Vraylar and lamotrigine. Continue home meds for now while gathering additional information, spoke with Tyra Higgins to coordinate care. - Referring for BCM through [facility]. 2 -patient appears anxious and depressed today, son expresses concerns that she has been more depressed lately, which he attributes to her loss of independence and marital discord. Continue titration of lamotrigine, increase to 100mg daily tomorrow. 06/19 - Lamotrigine to increase to 100mg this evening - continue standard titration schedule to target mood concerns - Patient continues to present as primarily depressed and anxiety, frequently tearful and distressed on the unit - though much of this is likely related to a reaction to current psychotic symptoms. 06/20 -The patient continues to appear anxious and depressed. -She appears to be tolerating the titration of lamotrigine. -Sleep remains suboptimal. Appetite remains suboptimal. -I will offer the patient a trial of fluoxetine 10 mg daily with caution, given her diagnosis of bipolar disorder. She is currently taking 2 mood stabilizing agents. 06/21 Reviewed. 06/26 - Treatment plan as outlined under "Psychosis" 06/27 -See above. (3) Tardive dyskinesia: 06/17 -monitor abnormal involuntary movements, consider trial of Ingrezza, although I believe it is nonformulary -Consider neurology consult for assistance with increase in falls, weakness, and abnormal movements -she was apparently referred to [facility] 4 months ago, and her appointment is sometime this month. 06/18 -patient's gait has been steady since admission, without falls. She is not demonstrating obvious signs of weakness here, is ambulating, getting in and out of chairs, and performing ADLs without difficulty. She reportedly has an outpatient neurology appointment next week, will clarify that and may not need inpatient consultation 06/21--reviewed. 06/24 -case was reviewed with neurology over the weekend, and they did not suggest any further inpatient work-up of her weakness, recurrent falls, gait difficulties, given that she had a normal brain MRI and would not currently be able to tolerate an LP. Her outpatient neurology appointment has been rescheduled for 08/20/[address] Li. 06/25 - Will request formal neurology consultation at this point, patient has had 3 minor falls during her stay with two occurring yesterday - It is likely that there is a component of delirium at play presently, but there are outpatient reports that suggest these gait disturbances and weakness was occurring prior to her medication changes/psychiatric admission - Case had been reviewed with our neurology service, would appreciate any input from formal examination and evaluation. Consult placed for "unsteady gait, multiple falls, and tardive dyskinesia" - CMP and UA re-ordered given waxing and waning confusion - pt did have UA prior to admission that appeared to be contaminated. Pt does admit to urinary frequency, but says this is not new. 06/26 - Appreciate recommendations offered by our neurology service. - They also recommend initiating valbenazine 40mg for TD symptoms - Additional labs were also recommended: will order A1c, TSH reflex free T4, vit B12 - Recommendation for outpatient neuropsychological testing referral 06/27 -Today, the patient reports that she is pleased to tell us that she believes that her tardive dyskinesia symptoms have improved somewhat, possibly after having taken [Vraylar] consistently this week. -As noted above, coverage authorization for valbenazine 40 mg daily for her severe tardive dyskinesia is inexplicably been denied, and we are appealing the decision. The decision is based on the severity of the patient's symptoms and the degree to which the adversely affect her ability to eat and communicate verbally. 06/28 - Received notification that Ingrezza 40mg has been approved - attempting to determine cost for use and specialty pharmacy that can provide the prescription. Risk Factors Assessment Male: No : Yes Health Problems: Yes Mental Health Diagnoses: Yes Substance Use Disorders: No Previous Psychiatric Hospitalization: Yes Hopelessness: No Smoker: No Protective Factors Assessment : Yes Responsible for Young Children: No Employed: No Supportive Family: Yes Good Rapport with Provider: Yes Interval History Identifying Information ALVARO FRAIRE is a 60-year-old F who currently lives in [place] with her , has a history of bipolar disorder type I, and was admitted on 06/16/20 22:11 on a 201 voluntary commitment for psychosis. Chief Complaint "I was just looking out there...did you...did you see Yemi? Is that Yemi?" Review of Systems Notes Constitutional: perceives that she slept well last evening, staff reports otherwise Cardiovascular: denied Respiratory: denied Gastrointestinal: denied Neurological: denied Psychiatric: denies symptoms other than stated above Total of at least 10 systems reviewed, pertinent positives as above and in HPI. Sleep Information Total Hours of Sleep: 5.5 Sleep Comments: Pt slept 3.5 hours on evening shift. She slept for approximately 2 hours total on mine shifter but it was very broken through the night. Meal Information Percent Meal Consumed - Breakfast: 50 Percent Meal Consumed - Lunch: 50 Percent Meal Consumed - Dinner: 70 Nutrition Comment: pt. only orders [employer]; states she doesn't ususally eat breakfast but plans to eat lunch Subjective Subjective Patient was seen & assessed and interval progress reviewed with nursing and social work. This provider did receive a call from staff early this morning stating that the patient had tripped over her feet and fallen onto her butt. Pt did not verbalize any physical concerns at that time and episode was not reported to have been a syncopal event, no loss of consciousness. Pt was seen today to assess progress since admission after she was observed to be tearful and confused in the hallway. Peers were attempting to comfort the patient, and she agreed to walk several laps with this provider. Pt stated "I was just looking out there...did you...did you see Yemi? Is that Yemi?" Pt states she believed she saw her grandson in the hallway just outside of the unit. Pt did request to go look, but was also reminded that visitors are not currently per mitted and that her grandson was not here. Pt admits she continues to get confused and states "I remember there are no visitors sometimes, but sometimes it's hard to know." Pt then started talking about her son and daughter and asked if they were here. She was reminded again that her family has not been on the unit. Pt was easily redirectable and her tearfulness quickly subsided. She reports she slept well last evening, despite staff's reports to the contrary. Pt states her appetite is normal. She reports mood and anxiety to be ok." Pt then wanted to attend exercise group. She left group early and presented to the nurses' station. Pt requested that the "bathroom door" be unlocked, and had to be redirected as the door knob she was handling led to an office, not the bathroom. Pt was quickly able to recognize her room, but seemed hesitant to enter the bathroom and inquired "is it free, no one's in there." Pt continues to respond to reassurance, but does have episodes of confusion. We will still attempt the 1:00 Zoom meeting with family, at least to have the patient visit and assess proximity to baseline. It is unknown if patient will be able to have a productive conversation about discharge planning. Physical Exam Psychiatric Orientation: alert, oriented to person and oriented to place Apperance: appropriately dressed, appropriately groomed and appeared stated age Eye Contact: good eye contact Motor Behavior: steady gait and station and + EPS (TD) Speech: normal rate/rhythm/volume of speech (dysarthric at times, but improving overall) Affect: + anxious affect and + tearful affect Mood: no depressed mood and no anxious mood "I'm ok." Thought Process: + tangential thought process Thought Content: + paranoid and + delusions Suicidal Thoughts: denies suicidal thoughts Homicidal Thoughts: denies homicidal thoughts Hallucinations: + visual hallucinations (continues to believe she is seeing her family on the unit); no auditory hallucinations Cognition: attention grossly intact (at least intermittently ) and language grossly intact Insight: + impaired insight Judgement: + impaired judgement Vital Signs (Past 24 Hours) Last Vital Signs Temp 36.8 C 06/29/20 06:48 Pulse 79 06/29/20 06:49 Resp 18 06/29/20 06:48 BP 116/80 06/29/20 06:49 Pulse Ox 99 06/16/20 23:03 Results & Data ([facility]) Current Inpatient Medications Current Inpatient Medications: Current Inpatient Medications Acetaminophen (Acetaminophen 325 Mg Tab) 650 mg PO Q4H PRN PRN Reason: Headache or Minor Fever Stop: 07/16/20 22:51 Last Admin: 06/26/20 08:54 Dose: 650 mg Documented by: Al Hydrox/Mg Hydrox/Simethicone (Aluminum/Magnesium Susp 30 Ml Udc) 30 ml PO Q4H PRN PRN Reason: GI Upset Stop: 07/16/20 22:51 Aspirin (Aspirin 81 Mg Ectab) 81 mg PO DAILY DONNIE Stop: 07/18/20 08:59 Last Admin: 06/29/20 07:40 Dose: 81 mg Documented by: Atorvastatin Calcium (Atorvastatin 20 Mg Tab) 20 mg PO HS DONNIE Stop: 07/17/20 21:59 Last Admin: 06/28/20 21:30 Dose: 20 mg Documented by: Benztropine Mesylate (Benztropine Mesylate 1 Mg Tab) 1 mg PO BID PRN PRN Reason: Muscle Spasm Stop: 07/17/20 20:59 Last Admin: 06/24/20 07:57 Dose: 1 mg Documented by: Bismuth Subsalicylate (Bismuth Subsalicylate Liqd 236 Ml) 15 ml PO PRN PRN PRN Reason: Loose Stool Stop: 07/16/20 22:51 Cariprazine (Cariprazine Hcl 3mg Capsule) 1 ea PO DAILY [facility] Stop: 07/26/20 08:59 Last Admin: 06/29/20 07:42 Dose: 1 ea Documented by: Fluoxetine HCl (Fluoxetine Hcl 10 Mg Cap) 10 mg PO QAM [facility] Stop: 07/20/20 10:14 Last Admin: 06/29/20 07:41 Dose: 10 mg Documented by: Gabapentin (Gabapentin 100 Mg Cap) 100 mg PO TID [facility] Stop: 07/17/20 13:59 Last Admin: 06/29/20 07:41 Dose: 100 mg Documented by: Lamotrigine (Lamotrigine 100 Mg Tab) 100 mg PO [facility] Stop: 07/19/20 21:59 Last Admin: 06/28/20 21:29 Dose: 100 mg Documented by: Levothyroxine Sodium (Levothyroxine Sodium 100 Mcg Tablet) 100 mcg PO DAILYBB [facility] Stop: 07/18/20 07:59 Last Admin: 06/29/20 07:40 Dose: 100 mcg Documented by: Lorazepam (Lorazepam 0.5 Mg Tab) 0.5 mg PO TID PRN PRN Reason: anxiety Stop: 07/21/20 11:00 Last Admin: 06/27/20 22:50 Dose: 0.5 mg Documented by: Lorazepam (Lorazepam 1 Mg Tab) 1 mg PO [facility] Stop: 07/28/20 21:59 Last Admin: 06/28/20 21:29 Dose: 1 mg Documented by: Lorazepam (Lorazepam 0.5 Mg Tab) 0.5 mg PO BID@0900,1400 [facility] Stop: 07/28/20 13:59 Last Admin: 06/29/20 07:40 Dose: 0.5 mg Documented by: Magnesium Hydroxide (Magnesium Hydroxide Susp 30 Ml Udc) 30 ml PO DAILY PRN PRN Reason: Constipation Stop: 07/16/20 22:51 Perphenazine (Perphenazine 2 Mg Tablet) 4 mg PO BID PRN PRN Reason: paranoia Stop: 07/23/20 20:59 Last Admin: 06/24/20 07:56 Dose: 4 mg Documented by: Propranolol HCl (Propranolol Hcl 10 Mg Tab) 10 mg PO BID [facility] Stop: 07/17/20 20:59 Last Admin: 06/29/20 07:41 Dose: 10 mg Documented by: Sodium Chloride (Sodium Chloride 0.65% Na Soln 45 Ml ([place])) 1 - 2 sprays NA PRN PRN PRN Reason: Nasal Dryness/Congestion Stop: 07/16/20 22:51 Mental Health & Subst Abuse Tx Psychiatrist Name of Psychiatrist: Tyra Redmond Psychiatrist's Date of Appointment with Psychiatrist: 07/23/20 Time of Appointment with Psychiatrist: [id number] Psychiatric Appointment Comment: [id number] [facility] Post Discharge Appointments Primary Care Physician Name Of Family Doctor: Jorge Spears [facility] Date of Appointment with PCP: 06/26/20 Time of Appointment with PCP: 10:20 a.m. Provider Appointment Comment: [facility] Neurologist Name of Neurologist: MARITZA Li Neurologist's Date of Appointment with Neurologist: 08/20/20 Time of Appointment with Neurologist: 10:30 a.m. Neurology Appointment Comment: [facility] [address] Contact Information Discharge Discharge Address: [address] [place] [address] [place] [address] (1) Psychosis Psychosis type: unspecified psychosis type Qualified Code(s): F29 - Unspecified psychosis not due to a substance or known physiological condition
[2020-06-29] MEDS: ATORVASTATIN 20 MG TAB PO SCH (20:41)
[2020-06-29] MEDS: lamoTRIgine 100 MG TAB PO SCH (20:41)
[2020-06-29] MEDS: LORazepam 1 MG TAB PO SCH (20:42)
[2020-06-30] MEDS: LORazepam 0.5 MG TAB PO SCH ×2 (08:00→14:02)
[2020-06-30] MEDS: GABAPENTIN 100 MG CAP PO SCH ×3 (08:00→19:37)
[2020-06-30] MEDS: PROPRANOLOL HCL 10 MG TAB PO SCH ×2 (08:00→19:37)
[2020-06-30] MEDS: LEVOTHYROXINE SODIUM 100 MCG TABLET PO SCH (08:00)
[2020-06-30] MEDS: ASPIRIN 81 MG ECTAB PO SCH (08:00)
[2020-06-30] MEDS: FLUoxetine HCL 10 MG CAP PO SCH (08:01)
[2020-06-30] MEDS: CARIPRAZINE HCL 3 MG PO SCH (08:02)
--- NOTE | 2020-06-30 10:08 | Psychiatric Progress Note ---
Date of Service June 30, 2020 Impression / Recommendations Impression 60-year-old female with a history of bipolar disorder type I, tardive dyskinesia, and decompensation over the past month and a half with impaired memory, multiple falls, dysarthria, and hallucinations. She had multiple ER visits at the end of April for falls and physical weakness, and due to lithium toxicity her lithium was discontinued, and due to EPS and tardive dyskinesia, Latuda was discontinued, and she was started on lamotrigine. Although lamotrigine was started at the end of April, it was just increased to 50 mg daily 06/06, and Vraylar 1.5 mg added. Her son brought her into the ER due to increasing confusion, incontinence, falls, and hallucinations. She appears delirious, but will need ongoing monitoring to clarify diagnosis and etiology. We are continuing standard titration of lamotrigine and attempting to limit overuse of antipsychotic medications given the patient's significant TD. Pt continues to be delusional and paranoid, and would not be able to tolerate the stress of community re-entry at this time. Reviewed. Patient appears almost delirious/catatonic and is tortured by paranoia. Normal MRI reviewed from Apr, outpatient notes reviewed and patient had been referred to neurology. Case has been reviewed with our neurology team and formal consultation was completed for gait instability/multiple falls/tardive dyskinesia - appreciate recommendations provided. Reviewed outpatient notes from [facility]. (1) Psychosis: 2/2 -complicated case, primary diagnosis unclear to me at this point. 2- month history of frequent falls, weakness, and abnormal involuntary movements. Hallucinations with fairly acute onset over the past couple of weeks, as well as memory impairment and significant disorganization on exam today. Minimal evidence of mood episode on my exam, but her outpatient clinician noted symptoms of depression at her last visit a week and a half ago. It would be very helpful to be able to monitor her symptoms around the clock. Differential includes delirium, mood related psychosis, cognitive disorder, or primary thought disorder. -Lamotrigine started a little over a month ago, and just increased to 50 mg daily a week and a half ago. We will continue the standard titration. Vraylar just started about 1 and half weeks ago, will continue 1.5 mg daily. 2/3 - Outpatient records reviewed and care coordinated as above. - Continue Vraylar 1.5mg daily. Fasting labs were checked 11/2019: TG 153, Hgb A1C 5.8% (est ave glucose 120). Will hold off on titrating Vraylar due to her tardive dyskinesia and fact that symptoms are improving. - AIMS today is 10; 3 for tongue movements, 2 for foot movements, 3 for overall severity, and 2 for patient awareness/mild distress. - Patient is slightly more organized in her thinking and speech today, oriented to self and place, but not time. Still confused, unable to find her room, requiring frequent redirection. She is demonstrating paranoia, sometimes direc jennifer at staff, but responded well to reassurance, and focus on her distressing emotions. 06/19 - Continue medication regimen as above, lamotrigine increasing to 100mg this evening. - Pt continues to be rather confused, but also paranoid. She continues to suggest that staff is talking about her, but has more recently been convinced that several family members are being locked in the various offices on the unit. - Continue attempt to limit antipsychotic medications as able, patient continues to respond well to redirection and reassurance from staff. 2 -The patient remains confused and floridly psychotic. Her delusions are mood congruent with depression. For example, today she tells me that she is to be punished because she has "killed [her] mother and father, and everyone in the family." She is also tearful and sobs through much of today's encounter. She also is experiencing auditory hallucinations that are consistent with the content of the delusions. -She appears not to be oriented to month or year. However, assessment of cognitive functioning is somewhat difficult because the patient is largely mute and is very quickly distracted by what appears to be auditory hallucinations. -The patient is able to tell us that her diagnosis is bipolar disorder and that she is in the hospital being treated for a mental illness. Although she claims to not know what medication she is currently taking, she was able to answer several questions regarding what medication she has or has not taken in the past. Today, reports that she has taken Prozac in the past and that has helped when she is depressed, at least to some extent. 2--reviewed past med trials, hesitant to use Haldol or thorazine given her TD and fall risk with latter. She refuses anyway. Did pill counts to confirm started date of Vraylar >2 weeks ago, will increase to 3 mg. Benzos are often helpful for catatonic features but need to watch gait. Start Ativan 0.5 mg TID prn and evaluate response/gait. d/c Sinequan prn as high dose and now on Prozac. d/c Vistaril given anticholinergic and also on Cogentin. Consider Trilafon if no immediate improvement on higher dose of Vraylar. 06/21--improved slightly today, will add standing order Ativan as tolerating 1 mg BID (am and evening meal) and decrease Restoril given am confusion. It is still possible that anticholinergic effects of Vistaril and ?Cogentin contributing to confusion. Will reassess Cogentin dosing tomorrow. 06/22--change Cogentin to prn, offer Trilafon BID prn to assess tolerability for additional coverage during Vraylar trial. D/C Restoril after tonight's dose. This will limit polypharmacy, case reviewed with Dr. Marks due to complexity and reconfirm impression of ongoing slow improvements. Will seek input from neurology on additional assessment here for falls and weakness with incontinence though gait and organization improving. Patient is limited historian/limited cooperation with neuro exam given psychosis. 06/24 -Multiple medication changes over the past few days, including addition of daytime lorazepam 1 mg twice daily, taper off of temazepam, increase of cariprazine to 3 mg daily, discontinuing scheduled benztropine, and addition of perphenazine 4 mg twice daily as needed. She remains on lamotrigine 100 mg daily (can be increased to 200 mg daily on 07/03/2020, per standard titration protocol). She received 4 mg perphenazine x 2 yesterday, and 1 so far today. Psychosis continues, with auditory hallucinations and paranoia/delusions of persecution. Given that we are trying to minimize antipsychotic burden due to her EPS, I will increase her lorazepam to 1 mg 3 times daily to target anxious distress and catatonia, but will need to watch for sedation and impaired gait. AIMS today is 12; 4 for tongue movements, 3 for severity, 2 for incapacitation, and 3 for patient awareness. 06/25 - Continue current medication regimen - patient does have reported moments confusion and visual hallucinations. There does seem to be a component of delirium superimposed on patient's psychosis, but unlikely to explain all of her current presentation. - During conversation today, patient is confused but not verbalizing delusions or paranoia - Neurology consult as outlined below 06/26 - Continue current medication regimen - will attempt to acquire valbenazine to target TD - Pt continues to have waxing and waning confusion, but symptoms of clinton psychosis do seem to be steadily improving - Staff continue to report concerns for gait instability - patient on formal 1:1 after sustaining minor falls 2 days ago. 06/27 -Continue current medication regimen. -The patient is continued to have waxing and waning confusion, but overall her periods of confusion seem to be less frequent and less prominent. -Our attempt to obtain authorization for coverage of valbenzaine have been unsuccessful. We are currently appealing the decision based on the fact that patient's tardive dyskinesia is so severe that she has trouble ingesting food a nd communicating orally. -Patient has been taken off one-to-one, but she is being closely monitored by staff. The patient has demonstrated that she is being very careful when ambulating. 06/28 - Tapering lorazepam - 0.5mg at 0900 and 1400, and maintaining 1mg dose qHS. Continue Vraylar, Lamictal, and Prozac. - Pt continues to have waxing and waning of confusion - intermittently requiring staff redirection - Pt stating today that she just learned her father , and believes he is being buried today. Still intermittently believes her family is hidden around the unit. 06/29 - 06/30 - Continue current medication regimen - patient still having episodes of confusion, visual hallucinations, delusions, and paranoia. - Pt will likely require additional time to stabilize, though continues to have slow improvement. (2) Bipolar 1 disorder: 06/17 - Historical diagnosis, previous admission for alison. Recent medication adjustments made including discontinuing lithium and starting Vraylar and lamotrigine. Continue home meds for now while gathering additional information, spoke with Tyra Higgins to coordinate care. - Referring for BCM through [facility]. 06/18 -patient appears anxious and depressed today, son expresses concerns that she has been more depressed lately, which he attributes to her loss of independence and marital discord. Continue titration of lamotrigine, increase to 100mg daily tomorrow. 06/19 - Lamotrigine to increase to 100mg this evening - continue standard titration schedule to target mood concerns - Patient continues to present as primarily depressed and anxiety, frequently tearful and distressed on the unit - though much of this is likely related to a reaction to current psychotic symptoms. 06/20 -The patient continues to appear anxious and depressed. -She appears to be tolerating the titration of lamotrigine. -Sleep remains suboptimal. Appetite remains suboptimal. -I will offer the patient a trial of fluoxetine 10 mg daily with caution, given her diagnosis of bipolar disorder. She is currently taking 2 mood stabilizing agents. 06/21 Reviewed. 06/26 - Treatment plan as outlined under "Psychosis" 06/27 -See above. (3) Tardive dyskinesia: 06/17 -monitor abnormal involuntary movements, consider trial of Ingrezza, although I believe it is nonformulary -Consider neurology consult for assistance with increase in falls, weakness, and abnormal movements -she was apparently referred to [facility] 4 months ago, and her appointment is sometime this month. 06/18 -patient's gait has been steady since admission, without falls. She is not demonstrating obvious signs of weakness here, is ambulating, getting in and out of chairs, and performing ADLs without difficulty. She reportedly has an outpatient neurology appointment next week, will clarify that and may not need inpatient consultation 06/21--reviewed. 06/24 -case was reviewed with neurology over the weekend, and they did not suggest any further inpatient work-up of her weakness, recurrent falls, gait difficulties, given that she had a normal brain MRI and would not currently be able to tolerate an LP. Her outpatient neurology appointment has been rescheduled for 08/20/[address] Li. 06/25 - Will request formal neurology consultation at this point, patient has had 3 minor falls during her stay with two occurring yesterday - It is likely that there is a component of delirium at play presently, but there are outpatient reports that suggest these gait disturbances and weakness was occurring prior to her medication changes/psychiatric admission - Case had been reviewed with our neurology service, would appreciate any input from formal examination and evaluation. Consult placed for "unsteady gait, multiple falls, and tardive dyskinesia" - CMP and UA re-ordered given waxing and waning confusion - pt did have UA prior to admission that appeared to be contaminated. Pt does admit to urinary frequency, but says this is not new. 06/26 - Appreciate recommendations offered by our neurology service. - They also recommend initiating valbenazine 40mg for TD symptoms - Additional labs were also recommended: will order A1c, TSH reflex free T4, vit B12 - Recommendation for outpatient neuropsychological testing referral 06/27 -Today, the patient reports that she is pleased to tell us that she believes that her tardive dyskinesia symptoms have improved somewhat, possibly after having taken [Vraylar] consistently this week. -As noted above, coverage authorization for valbenazine 40 mg daily for her severe tardive dyskinesia is inexplicably been denied, and we are appealing the decision. The decision is based on the severity of the patient's symptoms and the degree to which the adversely affect her ability to eat and communicate verbally. 06/28 - Received notification that Ingrezza 40mg has been approved - attempting to determine cost for use and specialty pharmacy that can provide the prescription. Risk Factors Assessment Male: No : Yes Health Problems: Yes Mental Health Diagnoses: Yes Substance Use Disorders: No Previous Psychiatric Hospitalization: Yes Hopelessness: No Smoker: No Protective Factors Assessment : Yes Responsible for Young Children: No Employed: No Supportive Family: Yes Good Rapport with Provider: Yes Interval History Identifying Information ALVARO FRAIRE is a 60-year-old F who currently lives in [place] with her , has a history of bipolar disorder type I, and was admitted on 06/16/20 22:11 on a 201 voluntary commitment for psychosis. Chief Complaint "I'm ok. Just finished breakfast." Review of Systems Notes Constitutional: reports improved sleep last evening Cardiovascular: denied Respiratory: denied Gastrointestinal: denied Neurological: denied Psychiatric: denies symptoms other than stated above Total of at least 10 systems reviewed, pertinent positives as above and in HPI. Sleep Information Total Hours of Sleep: 10 Sleep Comments: . Meal Information Percent Meal Consumed - Breakfast: 100 Percent Meal Consumed - Lunch: 75 Percent Meal Consumed - Dinner: 100 Nutrition Comment: . Subjective Subjective Patient was seen & assessed and interval progress reviewed with treatment team. Staff report the patient has continued to be intermittently confused. She was reportedly having visual hallucinations of birds yesterday and continued to believe that family members were present on the unit. Surprisingly, it was reported that the patient was able to have a decent Zoom meeting with her family but decompensated when her entered the call and the meeting was ended when patient stated she had a headache and needed to leave. Pt reportedly slept 10+ hours last night. Pt was seen today to assess progress since admission. The patient agreed to walk a few laps with this provider. She engaged in superficial, but appropriate conversations about her sleep and meals. Pt shares that she had a video call with her family, stating "they couldn't come in because of no visitors and the weather getting bad I guess." When asked what they discussed during the meeting, the patient stated "the next steps" but was unable to verbalize any specific steps that were discussed. Pt became tearful when informed of progress we anticipate to occur before discharge would be considered. This reaction was likely worsened by patient's awareness that several of her peers are being discharged today. The topic of discharge, combined with some conversations about getting to see her family on the Zoom call yesterday, led the patient to become rather upset. We discussed that we continue to notice improvements, but there is still concern surrounding the patient's frequent confusion is leading to concern for her safety if she were at home. In response, patient only states "I'll be fine." Pt denied auditory or visual hallucinations. She denies SI or acute safety concerns. Pt denies weakness or dizziness. Physical Exam Psychiatric Orientation: alert and cooperative Apperance: appropriately dressed and + disheveled (appearing mildly unkempt, hair is messy) Eye Contact: + fair eye contact Motor Behavior: + EPS (TD, mildly better this morning) Speech: normal rate/rhythm/volume of speech Affect: + tearful affect and + blunted affect Mood: no depressed mood (but does admit to feeling sad when missing her family) Thought Process: clear/coherent thought process and + concrete thought process Thought Content: reality based without delusions (at least not verbalizing delusions during our conversation); no hopelessness and no worthlessness Suicidal Thoughts: denies suicidal thoughts Homicidal Thoughts: denies homicidal thoughts Hallucinations: no auditory hallucinations and no visual hallucinations Cognition: attention grossly intact and language grossly intact Insight: + impaired insight Judgement: + impaired judgement Vital Signs (Past 24 Hours) Last Vital Signs Temp 36.6 C 06/30/20 06:31 Pulse 75 06/30/20 06:32 Resp 16 06/30/20 06:31 BP 131/77 06/30/20 06:32 Pulse Ox 99 06/16/20 23:03 Results & Data ([facility]) Current Inpatient Medications Current Inpatient Medications: Current Inpatient Medications Acetaminophen (Acetaminophen 325 Mg Tab) 650 mg PO Q4H PRN PRN Reason: Headache or Minor Fever Stop: 07/16/20 22:51 Last Admin: 06/26/20 08:54 Dose: 650 mg Documented by: Al Hydrox/Mg Hydrox/Simethicone (Aluminum/Magnesium Susp 30 Ml Udc) 30 ml PO Q4H PRN PRN Reason: GI Upset Stop: 07/16/20 22:51 Aspirin (Aspirin 81 Mg Ectab) 81 mg PO DAILY DONNIE Stop: 07/18/20 08:59 Last Admin: 06/30/20 08:00 Dose: 81 mg Documented by: Atorvastatin Calcium (Atorvastatin 20 Mg Tab) 20 mg PO HS [facility] Stop: 07/17/20 21:59 Last Admin: 06/29/20 20:41 Dose: 20 mg Documented by: Benztropine Mesylate (Benztropine Mesylate 1 Mg Tab) 1 mg PO BID PRN PRN Reason: Muscle Spasm Stop: 07/17/20 20:59 Last Admin: 06/24/20 07:57 Dose: 1 mg Documented by: Bismuth Subsalicylate (Bismuth Subsalicylate Liqd 236 Ml) 15 ml PO PRN PRN PRN Reason: Loose Stool Stop: 07/16/20 22:51 Cariprazine (Cariprazine Hcl 3mg Capsule) 1 ea PO DAILY DONNIE Stop: 07/26/20 08:59 Last Admin: 06/30/20 08:02 Dose: 1 ea Documented by: Fluoxetine HCl (Fluoxetine Hcl 10 Mg Cap) 10 mg PO QAM DONNIE Stop: 07/20/20 10:14 Last Admin: 06/30/20 08:01 Dose: 10 mg Documented by: Gabapentin (Gabapentin 100 Mg Cap) 100 mg PO TID DONNIE Stop: 07/17/20 13:59 Last Admin: 06/30/20 08:00 Dose: 100 mg Documented by: Lamotrigine (Lamotrigine 100 Mg Tab) 100 mg PO HS DONNIE Stop: 07/19/20 21:59 Last Admin: 06/29/20 20:41 Dose: 100 mg Documented by: Levothyroxine Sodium (Levothyroxine Sodium 100 Mcg Tablet) 100 mcg PO DAILYBB [facility] Stop: 07/18/20 07:59 Last Admin: 06/30/20 08:00 Dose: 100 mcg Documented by: Lorazepam (Lorazepam 0.5 Mg Tab) 0.5 mg PO TID PRN PRN Reason: anxiety Stop: 07/21/20 11:00 Last Admin: 06/27/20 22:50 Dose: 0.5 mg Documented by: Lorazepam (Lorazepam 1 Mg Tab) 1 mg PO HS [facility] Stop: 07/28/20 21:59 Last Admin: 06/29/20 20:42 Dose: 1 mg Documented by: Lorazepam (Lorazepam 0.5 Mg Tab) 0.5 mg PO BID@0900,1400 [facility] Stop: 07/28/20 13:59 Last Admin: 06/30/20 08:00 Dose: 0.5 mg Documented by: Magnesium Hydroxide (Magnesium Hydroxide Susp 30 Ml Udc) 30 ml PO DAILY PRN PRN Reason: Constipation Stop: 07/16/20 22:51 Perphenazine (Perphenazine 2 Mg Tablet) 4 mg PO BID PRN PRN Reason: paranoia Stop: 07/23/20 20:59 Last Admin: 06/24/20 07:56 Dose: 4 mg Documented by: Propranolol HCl (Propranolol Hcl 10 Mg Tab) 10 mg PO BID DONNIE Stop: 07/17/20 20:59 Last Admin: 06/30/20 08:00 Dose: 10 mg Documented by: Sodium Chloride (Sodium Chloride 0.65% Na Soln 45 Ml (Glenn)) 1 - 2 sprays NA PRN PRN PRN Reason: Nasal Dryness/Congestion Stop: 07/16/20 22:51 Mental Health & Subst Abuse Tx Psychiatrist Name of Psychiatrist: Tyra Redmond Psychiatrist's Date of Appointment with Psychiatrist: 07/23/20 Time of Appointment with Psychiatrist: [id number] Psychiatric Appointment Comment: [id number] [facility] Post Discharge Appointments Primary Care Physician Name Of Family Doctor: Jorge Spears [facility] Date of Appointment with PCP: 06/26/20 Time of Appointment with PCP: 10:20 a.m. Provider Appointment Comment: [facility] Neurologist Name of Neurologist: MARITZA Li Neurologist's Date of Appointment with Neurologist: 08/20/20 Time of Appointment with Neurologist: 10:30 a.m. Neurology Appointment Comment: [facility] [address] Contact Information Discharge Discharge Address: [address] [place] [address] [place] [address] (1) Psychosis Psychosis type: unspecified psychosis type Qualified Code(s): F29 - Unspecified psychosis not due to a substance or known physiological condition
[2020-06-30] MEDS: ATORVASTATIN 20 MG TAB PO SCH (19:37)
[2020-06-30] MEDS: LORazepam 1 MG TAB PO SCH (19:37)
[2020-06-30] MEDS: lamoTRIgine 100 MG TAB PO SCH (19:37)
[2020-07-01] MEDS: ASPIRIN 81 MG ECTAB PO SCH (08:28)
[2020-07-01] MEDS: PROPRANOLOL HCL 10 MG TAB PO SCH ×2 (08:29→21:07)
[2020-07-01] MEDS: LEVOTHYROXINE SODIUM 100 MCG TABLET PO SCH (08:29)
[2020-07-01] MEDS: CARIPRAZINE HCL 3 MG PO SCH (08:29)
[2020-07-01] MEDS: GABAPENTIN 100 MG CAP PO SCH ×3 (08:29→21:08)
[2020-07-01] MEDS: FLUoxetine HCL 10 MG CAP PO SCH (08:29)
[2020-07-01] MEDS: LORazepam 0.5 MG TAB PO SCH ×2 (08:31→13:41)
--- NOTE | 2020-07-01 10:18 | Psychiatric Progress Note ---
Date of Service July 01, 2020 Impression / Recommendations Impression 60-year-old female with a history of bipolar disorder type I, tardive dyskinesia, and decompensation over the past month and a half with impaired memory, multiple falls, dysarthria, and hallucinations. She had multiple ER visits at the end of April for falls and physical weakness, and due to lithium toxicity her lithium was discontinued, and due to EPS and tardive dyskinesia, Latuda was discontinued, and she was started on lamotrigine. Although lamotrigine was started at the end of April, it was just increased to 50 mg daily 06/06, and Vraylar 1.5 mg added. Her son brought her into the ER due to increasing confusion, incontinence, falls, and hallucinations. She appears delirious, but will need ongoing monitoring to clarify diagnosis and etiology. We are continuing standard titration of lamotrigine and attempting to limit overuse of antipsychotic medications given the patient's significant TD. Pt continues to be delusional and paranoid, and would not be able to tolerate the stress of community re-entry at this time. Reviewed. Patient appears almost delirious/catatonic and is tortured by paranoia. Normal MRI reviewed from Apr, outpatient notes reviewed and patient had been referred to neurology. Case has been reviewed with our neurology team and formal consultation was completed for gait instability/multiple falls/tardive dyskinesia - appreciate recommendations provided. Reviewed outpatient notes from [place]. (1) Psychosis: 2/2 -complicated case, primary diagnosis unclear to me at this point. 2- month history of frequent falls, weakness, and abnormal involuntary movements. Hallucinations with fairly acute onset over the past couple of weeks, as well as memory impairment and significant disorganization on exam today. Minimal evidence of mood episode on my exam, but her outpatient clinician noted symptoms of depression at her last visit a week and a half ago. It would be very helpful to be able to monitor her symptoms around the clock. Differential includes delirium, mood related psychosis, cognitive disorder, or primary thought disorder. -Lamotrigine started a little over a month ago, and just increased to 50 mg daily a week and a half ago. We will continue the standard titration. Vraylar just started about 1 and half weeks ago, will continue 1.5 mg daily. 2/3 - Outpatient records reviewed and care coordinated as above. - Continue Vraylar 1.5mg daily. Fasting labs were checked 11/2019: TG 153, Hgb A1C 5.8% (est ave glucose 120). Will hold off on titrating Vraylar due to her tardive dyskinesia and fact that symptoms are improving. - AIMS today is 10; 3 for tongue movements, 2 for foot movements, 3 for overall severity, and 2 for patient awareness/mild distress. - Patient is slightly more organized in her thinking and speech today, oriented to self and place, but not time. Still confused, unable to find her room, requiring frequent redirection. She is demonstrating paranoia, sometimes direc jennifer at staff, but responded well to reassurance, and focus on her distressing emotions. 06/19 - Continue medication regimen as above, lamotrigine increasing to 100mg this evening. - Pt continues to be rather confused, but also paranoid. She continues to suggest that staff is talking about her, but has more recently been convinced that several family members are being locked in the various offices on the unit. - Continue attempt to limit antipsychotic medications as able, patient continues to respond well to redirection and reassurance from staff. 2 -The patient remains confused and floridly psychotic. Her delusions are mood congruent with depression. For example, today she tells me that she is to be punished because she has "killed [her] mother and father, and everyone in the family." She is also tearful and sobs through much of today's encounter. She also is experiencing auditory hallucinations that are consistent with the content of the delusions. -She appears not to be oriented to month or year. However, assessment of cognitive functioning is somewhat difficult because the patient is largely mute and is very quickly distracted by what appears to be auditory hallucinations. -The patient is able to tell us that her diagnosis is bipolar disorder and that she is in the hospital being treated for a mental illness. Although she claims to not know what medication she is currently taking, she was able to answer several questions regarding what medication she has or has not taken in the past. Today, reports that she has taken Prozac in the past and that has helped when she is depressed, at least to some extent. 2--reviewed past med trials, hesitant to use Haldol or thorazine given her TD and fall risk with latter. She refuses anyway. Did pill counts to confirm started date of Vraylar >2 weeks ago, will increase to 3 mg. Benzos are often helpful for catatonic features but need to watch gait. Start Ativan 0.5 mg TID prn and evaluate response/gait. d/c Sinequan prn as high dose and now on Prozac. d/c Vistaril given anticholinergic and also on Cogentin. Consider Trilafon if no immediate improvement on higher dose of Vraylar. 06/21--improved slightly today, will add standing order Ativan as tolerating 1 mg BID (am and evening meal) and decrease Restoril given am confusion. It is still possible that anticholinergic effects of Vistaril and ?Cogentin contributing to confusion. Will reassess Cogentin dosing tomorrow. 06/22--change Cogentin to prn, offer Trilafon BID prn to assess tolerability for additional coverage during Vraylar trial. D/C Restoril after tonight's dose. This will limit polypharmacy, case reviewed with Dr. Marks due to complexity and reconfirm impression of ongoing slow improvements. Will seek input from neurology on additional assessment here for falls and weakness with incontinence though gait and organization improving. Patient is limited historian/limited cooperation with neuro exam given psychosis. 06/24 -Multiple medication changes over the past few days, including addition of daytime lorazepam 1 mg twice daily, taper off of temazepam, increase of cariprazine to 3 mg daily, discontinuing scheduled benztropine, and addition of perphenazine 4 mg twice daily as needed. She remains on lamotrigine 100 mg daily (can be increased to 200 mg daily on 07/03/2020, per standard titration protocol). She received 4 mg perphenazine x 2 yesterday, and 1 so far today. Psychosis continues, with auditory hallucinations and paranoia/delusions of persecution. Given that we are trying to minimize antipsychotic burden due to her EPS, I will increase her lorazepam to 1 mg 3 times daily to target anxious distress and catatonia, but will need to watch for sedation and impaired gait. AIMS today is 12; 4 for tongue movements, 3 for severity, 2 for incapacitation, and 3 for patient awareness. 06/25 - Continue current medication regimen - patient does have reported moments confusion and visual hallucinations. There does seem to be a component of delirium superimposed on patient's psychosis, but unlikely to explain all of her current presentation. - During conversation today, patient is confused but not verbalizing delusions or paranoia - Neurology consult as outlined below 06/26 - Continue current medication regimen - will attempt to acquire valbenazine to target TD - Pt continues to have waxing and waning confusion, but symptoms of clinton psychosis do seem to be steadily improving - Staff continue to report concerns for gait instability - patient on formal 1:1 after sustaining minor falls 2 days ago. 06/27 -Continue current medication regimen. -The patient is continued to have waxing and waning confusion, but overall her periods of confusion seem to be less frequent and less prominent. -Our attempt to obtain authorization for coverage of valbenzaine have been unsuccessful. We are currently appealing the decision based on the fact that patient's tardive dyskinesia is so severe that she has trouble ingesting food a nd communicating orally. -Patient has been taken off one-to-one, but she is being closely monitored by staff. The patient has demonstrated that she is being very careful when ambulating. 06/28 - Tapering lorazepam - 0.5mg at 0900 and 1400, and maintaining 1mg dose qHS. Continue Vraylar, Lamictal, and Prozac. - Pt continues to have waxing and waning of confusion - intermittently requiring staff redirection - Pt stating today that she just learned her father , and believes he is being buried today. Still intermittently believes her family is hidden around the unit. 06/29 - 07/01 - Continue current medication regimen - patient still having episodes of confusion, visual hallucinations, delusions, and paranoia. - Pt will likely require additional time to stabilize, though continues to have slow improvement. (2) Bipolar 1 disorder: 06/17 - Historical diagnosis, previous admission for alison. Recent medication adjustments made including discontinuing lithium and starting Vraylar and lamotrigine. Continue home meds for now while gathering additional information, spoke with Tyra Higgins to coordinate care. - Referring for BCM through [facility]. 06/18 -patient appears anxious and depressed today, son expresses concerns that she has been more depressed lately, which he attributes to her loss of independence and marital discord. Continue titration of lamotrigine, increase to 100mg daily tomorrow. 06/19 - Lamotrigine to increase to 100mg this evening - continue standard titration schedule to target mood concerns - Patient continues to present as primarily depressed and anxiety, frequently tearful and distressed on the unit - though much of this is likely related to a reaction to current psychotic symptoms. 06/20 -The patient continues to appear anxious and depressed. -She appears to be tolerating the titration of lamotrigine. -Sleep remains suboptimal. Appetite remains suboptimal. -I will offer the patient a trial of fluoxetine 10 mg daily with caution, given her diagnosis of bipolar disorder. She is currently taking 2 mood stabilizing agents. 06/21 Reviewed. 06/26 - Treatment plan as outlined under "Psychosis" 06/27 -See above. (3) Tardive dyskinesia: 06/17 -monitor abnormal involuntary movements, consider trial of Ingrezza, although I believe it is nonformulary -Consider neurology consult for assistance with increase in falls, weakness, and abnormal movements -she was apparently referred to [facility] 4 months ago, and her appointment is sometime this month. 06/18 -patient's gait has been steady since admission, without falls. She is not demonstrating obvious signs of weakness here, is ambulating, getting in and out of chairs, and performing ADLs without difficulty. She reportedly has an outpatient neurology appointment next week, will clarify that and may not need inpatient consultation 06/21--reviewed. 06/24 -case was reviewed with neurology over the weekend, and they did not suggest any further inpatient work-up of her weakness, recurrent falls, gait difficulties, given that she had a normal brain MRI and would not currently be able to tolerate an LP. Her outpatient neurology appointment has been rescheduled for 08/20/[address] Li. 06/25 - Will request formal neurology consultation at this point, patient has had 3 minor falls during her stay with two occurring yesterday - It is likely that there is a component of delirium at play presently, but there are outpatient reports that suggest these gait disturbances and weakness was occurring prior to her medication changes/psychiatric admission - Case had been reviewed with our neurology service, would appreciate any input from formal examination and evaluation. Consult placed for "unsteady gait, multiple falls, and tardive dyskinesia" - CMP and UA re-ordered given waxing and waning confusion - pt did have UA prior to admission that appeared to be contaminated. Pt does admit to urinary frequency, but says this is not new. 06/26 - Appreciate recommendations offered by our neurology service. - They also recommend initiating valbenazine 40mg for TD symptoms - Additional labs were also recommended: will order A1c, TSH reflex free T4, vit B12 - Recommendation for outpatient neuropsychological testing referral 06/27 -Today, the patient reports that she is pleased to tell us that she believes that her tardive dyskinesia symptoms have improved somewhat, possibly after having taken [Vraylar] consistently this week. -As noted above, coverage authorization for valbenazine 40 mg daily for her severe tardive dyskinesia is inexplicably been denied, and we are appealing the decision. The decision is based on the severity of the patient's symptoms and the degree to which the adversely affect her ability to eat and communicate verbally. 06/28 - Received notification that Ingrezza 40mg has been approved - attempting to determine cost for use and specialty pharmacy that can provide the prescription. 07/01 - Ingrezza 40mg has reportedly been ordered and is being mailed to the patient's home. Family to bring in the prescription once it arrives. Risk Factors Assessment Male: No : Yes Health Problems: Yes Mental Health Diagnoses: Yes Substance Use Disorders: No Previous Psychiatric Hospitalization: Yes Hopelessness: No Smoker: No Protective Factors Assessment : Yes Responsible for Young Children: No Employed: No Supportive Family: Yes Good Rapport with Provider: Yes Interval History Identifying Information ALVARO FRAIRE is a 60-year-old F who currently lives in [place] with her , has a history of bipolar disorder type I, and was admitted on 06/16/20 22:11 on a 201 voluntary commitment for psychosis. Chief Complaint "A lot better." Review of Systems Notes Constitutional: denied Cardiovascular: denied Respiratory: denied Gastrointestinal: denied Neurological: denied Psychiatric: denies symptoms other than stated above Total of at least 10 systems reviewed, pertinent positives as above and in HPI. Sleep Information Total Hours of Sleep: 6.5 Sleep Comments: . Meal Information Percent Meal Consumed - Breakfast: 100 Percent Meal Consumed - Lunch: 50 Percent Meal Consumed - Dinner: 50 Nutrition Comment: . Subjective Subjective Patient was seen & assessed and interval progress reviewed with nursing and social work. Staff report the patient has been participating in group programming. She continues to have episodes of confusion, and was reportedly more irritable last evening that she has been recently. Pt was seen today to assess progress since admission. She agreed to walking laps with this provider and did seem to be more steady on her feet. Pt states she feels "a lot better." She is able to provide specific examples of "I'm able to focus better" and "I'm not seeing animals anymore, that was pretty crazy." Unfortunately, patient did not recall that she had told staff this morning that she could see snakes coming out of her room. Pt admits her mood has been stable and sleep and appetite continue to be decent. Pt even stated "I'm not like I was when I was throwing ice on that lady." This had occurred during a previous admission when patient was demonstrating more manic behavior. Pt was admittedly unclear of the timeline of this, thinking it had occurred a few weeks ago. Pt denies thoughts to harm others or escalating frustrations in the last few days. Pt does ask this provider "do you think I'm ever getting out of here?" She is able to acknowledge that she still has episodes of confusion, and was much less tearful today when we discussed that she is likely to be in the hospital for several more days. When asked about goals that she has for the remainder of her admission, she states "gosh, I don't think I have any more." She denies any physical complaints today as wells as other needs or concerns. Physical Exam Psychiatric Orientation: alert and cooperative Apperance: appropriately dressed, appropriately groomed and appeared stated age Eye Contact: + fair eye contact Motor Behavior: steady gait and station (ambulation appears more steady today) and + EPS (TD) Speech: normal rate/rhythm/volume of speech Affect: + blunted affect Mood: no depressed mood and no anxious mood "a lot better" Thought Process: goal directed thought process and + concrete thought process Thought Content: no delusions and no hopelessness Suicidal Thoughts: denies suicidal thoughts Homicidal Thoughts: denies homicidal thoughts Hallucinations: no auditory hallucinations and no visual hallucinations denies presently, though did inform staff this morning that there were snakes crawling out of her room Cognition: attention grossly intact and language grossly intact Insight: + impaired insight Judgement: + impaired judgement Vital Signs (Past 24 Hours) Last Vital Signs Temp 36.8 C 07/01/20 06:33 Pulse 73 07/01/20 06:34 Resp 18 07/01/20 06:33 BP 132/88 07/01/20 06:34 Pulse Ox 99 06/16/20 23:03 Results & Data ([facility]) Current Inpatient Medications Current Inpatient Medications: Current Inpatient Medications Acetaminophen (Acetaminophen 325 Mg Tab) 650 mg PO Q4H PRN PRN Reason: Headache or Minor Fever Stop: 07/16/20 22:51 Last Admin: 06/26/20 08:54 Dose: 650 mg Documented by: Al Hydrox/Mg Hydrox/Simethicone (Aluminum/Magnesium Susp 30 Ml Udc) 30 ml PO Q4H PRN PRN Reason: GI Upset Stop: 07/16/20 22:51 Aspirin (Aspirin 81 Mg Ectab) 81 mg PO DAILY DONNIE Stop: 07/18/20 08:59 Last Admin: 07/01/20 08:28 Dose: 81 mg Documented by: Atorvastatin Calcium (Atorvastatin 20 Mg Tab) 20 mg PO HS DONNIE Stop: 07/17/20 21:59 Last Admin: 06/30/20 19:37 Dose: 20 mg Documented by: Benztropine Mesylate (Benztropine Mesylate 1 Mg Tab) 1 mg PO BID PRN PRN Reason: Muscle Spasm Stop: 07/17/20 20:59 Last Admin: 06/24/20 07:57 Dose: 1 mg Documented by: Bismuth Subsalicylate (Bismuth Subsalicylate Liqd 236 Ml) 15 ml PO PRN PRN PRN Reason: Loose Stool Stop: 07/16/20 22:51 Cariprazine (Cariprazine Hcl 3mg Capsule) 1 ea PO DAILY DONNIE Stop: 07/26/20 08:59 Last Admin: 07/01/20 08:29 Dose: 1 ea Documented by: Fluoxetine HCl (Fluoxetine Hcl 10 Mg Cap) 10 mg PO QAM DONNIE Stop: 07/20/20 10:14 Last Admin: 07/01/20 08:29 Dose: 10 mg Documented by: Gabapentin (Gabapentin 100 Mg Cap) 100 mg PO TID DONNIE Stop: 07/17/20 13:59 Last Admin: 07/01/20 08:29 Dose: 100 mg Documented by: Lamotrigine (Lamotrigine 100 Mg Tab) 100 mg PO HS [facility] Stop: 07/19/20 21:59 Last Admin: 06/30/20 19:37 Dose: 100 mg Documented by: Levothyroxine Sodium (Levothyroxine Sodium 100 Mcg Tablet) 100 mcg PO DAILYBB [facility] Stop: 07/18/20 07:59 Last Admin: 07/01/20 08:29 Dose: 100 mcg Documented by: Lorazepam (Lorazepam 0.5 Mg Tab) 0.5 mg PO TID PRN PRN Reason: anxiety Stop: 07/21/20 11:00 Last Admin: 06/27/20 22:50 Dose: 0.5 mg Documented by: Lorazepam (Lorazepam 1 Mg Tab) 1 mg PO HS [facility] Stop: 07/28/20 21:59 Last Admin: 06/30/20 19:37 Dose: 1 mg Documented by: Lorazepam (Lorazepam 0.5 Mg Tab) 0.5 mg PO BID@0900,1400 [facility] Stop: 07/28/20 13:59 Last Admin: 07/01/20 08:31 Dose: 0.5 mg Documented by: Magnesium Hydroxide (Magnesium Hydroxide Susp 30 Ml Udc) 30 ml PO DAILY PRN PRN Reason: Constipation Stop: 07/16/20 22:51 Perphenazine (Perphenazine 2 Mg Tablet) 4 mg PO BID PRN PRN Reason: paranoia Stop: 07/23/20 20:59 Last Admin: 06/24/20 07:56 Dose: 4 mg Documented by: Propranolol HCl (Propranolol Hcl 10 Mg Tab) 10 mg PO BID [facility] Stop: 07/17/20 20:59 Last Admin: 07/01/20 08:29 Dose: 10 mg Documented by: Sodium Chloride (Sodium Chloride 0.65% Na Soln 45 Ml ([place])) 1 - 2 sprays NA PRN PRN PRN Reason: Nasal Dryness/Congestion Stop: 07/16/20 22:51 Mental Health & Subst Abuse Tx Psychiatrist Name of Psychiatrist: Tyra Redmond Psychiatrist's Date of Appointment with Psychiatrist: 07/23/20 Time of Appointment with Psychiatrist: [id number] Psychiatric Appointment Comment: [id number] [facility] Sealer Sander Name of Sealer Sander: Joanne Zurita Post Discharge Appointments Primary Care Physician Name Of Family Doctor: Jorge Spears Primary Care Date of Appointment with PCP: 06/26/20 Time of Appointment with PCP: 10:20 a.m. Provider Appointment Comment: [facility] Neurologist Name of Neurologist: MARITZA Li Neurologist's Date of Appointment with Neurologist: 08/20/20 Time of Appointment with Neurologist: 10:30 a.m. Neurology Appointment Comment: [address] [facility] [address] Contact Information Discharge Discharge Address: [address] [place] [address] [place] [address] (1) Psychosis Psychosis type: unspecified psychosis type Qualified Code(s): F29 - Unspecified psychosis not due to a substance or known physiological condition
[2020-07-01 14:25] LABS: Appearance Urine Clear (Clear); Bilirubin Urine Negative (Negative); Blood Urine Negative (Negative); Color Urine Yellow; Glucose Urine UA Negative (Negative); Ketones Urine Negative (Negative); Leukocyte Esterase Urine Negative (Negative); Nitrite Urine Negative (Negative); Protein Urine Negative (Negative); Specific Gravity Urine 1.007 (1.000-1.030); Urobilinogen Urine Negative (Negative); pH Urine 6.5 (4.5-7.5)
[2020-07-01] MEDS: lamoTRIgine 100 MG TAB PO SCH (21:08)
[2020-07-01] MEDS: ATORVASTATIN 20 MG TAB PO SCH (21:08)
[2020-07-01] MEDS: LORazepam 1 MG TAB PO SCH (21:08)
[2020-07-02] MEDS: LORazepam 0.5 MG TAB PO PRN ×2 (00:47→16:33)
[2020-07-02] MEDS: PERPHENAZINE 2 MG TABLET PO PRN (01:14)
[2020-07-02] MEDS: ASPIRIN 81 MG ECTAB PO SCH (08:29)
[2020-07-02] MEDS: CARIPRAZINE HCL 3 MG PO SCH (08:29)
[2020-07-02] MEDS: LEVOTHYROXINE SODIUM 100 MCG TABLET PO SCH (08:29)
[2020-07-02] MEDS: LORazepam 0.5 MG TAB PO SCH ×2 (08:29→14:30)
[2020-07-02] MEDS: MULTIVITAMIN TAB PO SCH (08:29)
[2020-07-02] MEDS: GABAPENTIN 100 MG CAP PO SCH ×3 (08:29→21:07)
[2020-07-02] MEDS: PROPRANOLOL HCL 10 MG TAB PO SCH ×2 (08:29→21:08)
[2020-07-02] MEDS: FLUoxetine HCL 10 MG CAP PO SCH (08:29)
--- NOTE | 2020-07-02 09:17 | Psychiatric Progress Note ---
Date of Service July 02, 2020 Impression / Recommendations Impression 60-year-old female with a history of bipolar disorder type I, tardive dyskinesia, and decompensation over the past month and a half with impaired memory, multiple falls, dysarthria, and hallucinations. She had multiple ER visits at the end of April for falls and physical weakness, and due to lithium toxicity her lithium was discontinued, and due to EPS and tardive dyskinesia, Latuda was discontinued, and she was started on lamotrigine. Although lamotrigine was started at the end of April, it was just increased to 50 mg daily 06/06, and Vraylar 1.5 mg added. Her son brought her into the ER due to increasing confusion, incontinence, falls, and hallucinations. We are continuing standard titration of lamotrigine and attempting to limit overuse of antipsychotic medications given the patient's significant TD. There does seem to be an aspect of delirium at play; however, patient has also decompensated psychiatrically and response to medication adjustments has been limited. Decision was made to titrate Vraylar to 3mg due to ongoing delusions/paranoia causing the patient significant distress on the unit. She was also started on scheduled lorazepam due to concern for possible catatonic presentation as patient had been agitated and very restless. Normal MRI reviewed from Apr, outpatient notes reviewed and patient had been referred to neurology. Case has been reviewed with our neurology team and formal consultation was completed for gait instability/multiple falls/tardive dyskinesia - appreciate recommendations provided. As it did not seem that patient was having a robust response to the Vraylar titration, decision was made to pursue a trial of clozapine to target delusions/paranoia while also attempting to reduce risk of worsening TD. Efforts have been made to order valbenazine (which required prior-authorization and specialty pharmacy order) to target significant TD - this has not yet arrived for us to order for use here in the hospital. Pt continues to be disoriented and disorganized to the point that she would not be able to reasonably care for her basic needs outside of the hospital and certainly could not tolerate the stress of community re-entry in her current condition. (1) Psychosis: 2/2 -complicated case, primary diagnosis unclear to me at this point. 2- month history of frequent falls, weakness, and abnormal involuntary movements. Hallucinations with fairly acute onset over the past couple of weeks, as well as memory impairment and significant disorganization on exam today. Minimal evidence of mood episode on my exam, but her outpatient clinician noted symptoms of depression at her last visit a week and a half ago. It would be very helpful to be able to monitor her symptoms around the clock. Differential includes delirium, mood related psychosis, cognitive disorder, or primary thought disorder. -Lamotrigine started a little over a month ago, and just increased to 50 mg daily a week and a half ago. We will continue the standard titration. Vraylar just started about 1 and half weeks ago, will continue 1.5 mg daily. 2/3 - Outpatient records reviewed and care coordinated as above. - Continue Vraylar 1.5mg daily. Fasting labs were checked 11/2019: TG 153, Hgb A1C 5.8% (est ave glucose 120). Will hold off on titrating Vraylar due to her tardive dyskinesia and fact that symptoms are improving. - AIMS today is 10; 3 for tongue movements, 2 for foot movements, 3 for overall severity, and 2 for patient awareness/mild distress. - Patient is slightly more organized in her thinking and speech today, oriented to self and place, but not time. Still confused, unable to find her room, requiring frequent redirection. She is demonstrating paranoia, sometimes directed at staff, but responded well to reassurance, and focus on her distressing emotions. 2/ - Continue medication regimen as above, lamotrigine increasing to 100mg this evening. - Pt continues to be rather confused, but also paranoid. She continues to suggest that staff is talking about her, but has more recently been convinced that several family members are being locked in the various offices on the unit. - Continue attempt to limit antipsychotic medications as able, patient continues to respond well to redirection and reassurance from staff. 2 -The patient remains confused and floridly psychotic. Her delusions are mood congruent with depression. For example, today she tells me that she is to be punished because she has "killed [her] mother and father, and everyone in the family." She is also tearful and sobs through much of today's encounter. She also is experiencing auditory hallucinations that are consistent with the content of the delusions. -She appears not to be oriented to month or year. However, assessment of cognitive functioning is somewhat difficult because the patient is largely mute and is very quickly distracted by what appears to be auditory hallucinations. -The patient is able to tell us that her diagnosis is bipolar disorder and that she is in the hospital being treated for a mental illness. Although she claims to not know what medication she is currently taking, she was able to answer several questions regarding what medication she has or has not taken in the past. Today, reports that she has taken Prozac in the past and that has helped when she is depressed, at least to some extent. 06/20--reviewed past med trials, hesitant to use Haldol or thorazine given her TD and fall risk with latter. She refuses anyway. Did pill counts to confirm started date of Vraylar >2 weeks ago, will increase to 3 mg. Benzos are often helpful for catatonic features but need to watch gait. Start Ativan 0.5 mg TID prn and evaluate response/gait. d/c Sinequan prn as high dose and now on Prozac. d/c Vistaril given anticholinergic and also on Cogentin. Consider Trilafon if no immediate improvement on higher dose of Vraylar. 06/21--improved slightly today, will add standing order Ativan as tolerating 1 mg BID (am and evening meal) and decrease Restoril given am confusion. It is still possible that anticholinergic effects of Vistaril and ?Cogentin contributing to confusion. Will reassess Cogentin dosing tomorrow. 06/22--change Cogentin to prn, offer Trilafon BID prn to assess tolerability for additional coverage during Vraylar trial. D/C Restoril after tonight's dose. This will limit polypharmacy, case reviewed with Dr. Marks due to complexity and reconfirm impression of ongoing slow improvements. Will seek input from neurology on additional assessment here for falls and weakness with incontinence though gait and organization improving. Patient is limited historian/limited cooperation with neuro exam given psychosis. 06/24 -Multiple medication changes over the past few days, including addition of daytime lorazepam 1 mg twice daily, taper off of temazepam, increase of cariprazine to 3 mg daily, discontinuing scheduled benztropine, and addition of perphenazine 4 mg twice daily as needed. She remains on lamotrigine 100 mg daily (can be increased to 200 mg daily on 07/03/2020, per standard titration protocol). She received 4 mg perphenazine x 2 yesterday, and 1 so far today. Psychosis continues, with auditory hallucinations and paranoia/delusions of persecution. Given that we are trying to minimize antipsychotic burden due to her EPS, I will increase her lorazepam to 1 mg 3 times daily to target anxious distress and catatonia, but will need to watch for sedation and impaired gait. AIMS today is 12; 4 for tongue movements, 3 for severity, 2 for incapacitation, and 3 for patient awareness. 06/25 - Continue current medication regimen - patient does have reported moments confusion and visual hallucinations. There does seem to be a component of delirium superimposed on patient's psychosis, but unlikely to explain all of her current presentation. - During conversation today, patient is confused but not verbalizing delusions or paranoia - Neurology consult as outlined below 06/26 - Continue current medication regimen - will attempt to acquire valbenazine to target TD - Pt continues to have waxing and waning confusion, but symptoms of clinton psychosis do seem to be steadily improving - Staff continue to report concerns for gait instability - patient on formal 1:1 after sustaining minor falls 2 days ago. 06/27 -Continue current medication regimen. -The patient is continued to have waxing and waning confusion, but overall her periods of confusion seem to be less frequent and less prominent. -Our attempt to obtain authorization for coverage of valbenazine have been unsuccessful. We are currently appealing the decision based on the fact that patient's tardive dyskinesia is so severe that she has trouble ingesting food and communicating orally. -Patient has been taken off one-to-one, but she is being closely monitored by staff. The patient has demonstrated that she is being very careful when ambulating. 06/28 - Tapering lorazepam - 0.5mg at 0900 and 1400, and maintaining 1mg dose qHS. Continue Vraylar, Lamictal, and Prozac. - Pt continues to have waxing and waning of confusion - intermittently requiring staff redirection - Pt stating today that she just learned her father , and believes he is being buried today. Still intermittently believes her family is hidden around the unit. 06/29 - 07/01 - Continue current medication regimen - patient still having episodes of confusion, visual hallucinations, delusions, and paranoia. - Pt will likely require additional time to stabilize, though continues to have slow improvement. 07/02 - Will discontinue Vraylar and initiate a titration of clozapine - patient informed of common side effects and need for weekly blood monitoring and agreed to the medication change. Titration of clozapine has been ordered up to a dose of 150mg - this can be adjusted based on patient's ability to tolerate the new medication. - Patient's dose of lamotrigine can also be increased to 150mg with tomorrow evening's dose - Pt continues to be emotionally labile with ongoing delusions/paranoia and frequent episodes of confusion. - She did report pain with urination to staff yesterday, stating it felt like previous UTI's she has experienced - UA completed, still not demonstrating concern for UTI. (2) Bipolar 1 disorder: 06/17 - Historical diagnosis, previous admission for alison. Recent medication adjustments made including discontinuing lithium and starting Vraylar and lamotrigine. Continue home meds for now while gathering additional inform ation, spoke with Tyra Higgins to coordinate care. - Referring for BCM through Rogers Zurita. 06/18 -patient appears anxious and depressed today, son expresses concerns that she has been more depressed lately, which he attributes to her loss of independence and marital discord. Continue titration of lamotrigine, increase to 100mg daily tomorrow. 06/19 - Lamotrigine to increase to 100mg this evening - continue standard titration schedule to target mood concerns - Patient continues to present as primarily depressed and anxiety, frequently tearful and distressed on the unit - though much of this is likely related to a reaction to current psychotic symptoms. 06/20 -The patient continues to appear anxious and depressed. -She appears to be tolerating the titration of lamotrigine. -Sleep remains suboptimal. Appetite remains suboptimal. -I will offer the patient a trial of fluoxetine 10 mg daily with caution, given her diagnosis of bipolar disorder. She is currently taking 2 mood stabilizing agents. 06/21 Reviewed. 06/26 - Treatment plan as outlined under "Psychosis" 06/27 -See above. (3) Tardive dyskinesia: 06/17 -monitor abnormal involuntary movements, consider trial of Ingrezza, although I believe it is nonformulary -Consider neurology consult for assistance with increase in falls, weakness, and abnormal movements -she was apparently referred to [facility] 4 months ago, and her appointment is sometime this month. 06/18 -patient's gait has been steady since admission, without falls. She is not demonstrating obvious signs of weakness here, is ambulating, getting in and out of chairs, and performing ADLs without difficulty. She reportedly has an outpatient neurology appointment next week, will clarify that and may not need inpatient consultation 06/21--reviewed. 06/24 -case was reviewed with neurology over the weekend, and they did not suggest any further inpatient work-up of her weakness, recurrent falls, gait dif ficulties, given that she had a normal brain MRI and would not currently be able to tolerate an LP. Her outpatient neurology appointment has been rescheduled for 08/20/[address] Li. 06/25 - Will request formal neurology consultation at this point, patient has had 3 minor falls during her stay with two occurring yesterday - It is likely that there is a component of delirium at play presently, but there are outpatient reports that suggest these gait disturbances and weakness was occurring prior to her medication changes/psychiatric admission - Case had been reviewed with our neurology service, would appreciate any input from formal examination and evaluation. Consult placed for "unsteady gait, multiple falls, and tardive dyskinesia" - CMP and UA re-ordered given waxing and waning confusion - pt did have UA prior to admission that appeared to be contaminated. Pt does admit to urinary frequency, but says this is not new. 06/26 - Appreciate recommendations offered by our neurology service. - They also recommend initiating valbenazine 40mg for TD symptoms - Additional labs were also recommended: will order A1c, TSH reflex free T4, vit B12 - Recommendation for outpatient neuropsychological testing referral 06/27 -Today, the patient reports that she is pleased to tell us that she believes that her tardive dyskinesia symptoms have improved somewhat, possibly after having taken [Vraylar] consistently this week. -As noted above, coverage authorization for valbenazine 40 mg daily for her severe tardive dyskinesia is inexplicably been denied, and we are appealing the decision. The decision is based on the severity of the patient's symptoms and the degree to which the adversely affect her ability to eat and communicate verbally. 06/28 - Received notification that Ingrezza 40mg has been approved - attempting to determine cost for use and specialty pharmacy that can provide the prescription. 07/01 - Ingrezza 40mg has reportedly been ordered and is being mailed to the patient's home. Family to bring in the prescription once it arrives. Risk Factors Assessment Male: No : Yes Health Problems: Yes Mental Health Diagnoses: Yes Substance Use Disorders: No Previous Psychiatric Hospitalization: Yes Hopelessness: No Smoker: No Protective Factors Assessment : Yes Responsible for Young Children: No Employed: No Supportive Family: Yes Good Rapport with Provider: Yes Interval History Identifying Information ALVARO FRAIRE is a 60-year-old F who currently lives in [place] with her , has a history of bipolar disorder type I, and was admitted on 06/16/20 22:11 on a 201 voluntary commitment for psychosis. Chief Complaint "Yemi missed the bus..." Review of Systems Notes Constitutional: admits to poor sleep last night (related to paranoia/delusions causing considerable distress) Cardiovascular: denied Respiratory: denied Gastrointestinal: denied Neurological: denied Psychiatric: denies symptoms other than stated above Total of at least 10 systems reviewed, pertinent positives as above and in HPI. Sleep Information Total Hours of Sleep: 0.5 Sleep Comments: . Meal Information Percent Meal Consumed - Breakfast: 100 Percent Meal Consumed - Lunch: 100 Percent Meal Consumed - Dinner: 100 Nutrition Comment: . Subjective Subjective Patient was seen & assessed and interval progress reviewed with treatment team. Staff report the patient has been attending groups intermittently, but ability to full participate continues to be inconsistent. She continues to have frequent episodes of confusion/disorientation. Last evening, it was reported that patient was very paranoid and was in her room screaming loudly stating that something was happening to her grandson. Pt did reportedly receive prn perp henazine which reportedly helped a little. Pt was seen today to assess progress since admission. This provider found the patient wandering the halls, and when asked how she is doing this morning the patient began bawling. She agreed to meet with this provider in the group room to talk about what is going on. Pt takes quite some time to collect herself before she tearfully states "Yemi missed the bus." Pt is not able to explain how she is aware that this happened to her grandson, but states that one of our nurses is planning to help him with a ride. Pt is able to accurately report "I didn't sleep well last night." When asked to explain the events, the patient becomes inconsolable - verbalizing statements that were unfortunately unintelligible. When patient was able to calm herself a bit, she shares that "they tried to hang me". She then verbalizes confusing statements suggesting she and her family were being locked in the basement and couldn't get out. She is clearly very distressed by this situation. This provider discussed concern that her current medications may need adjustments, and she states "please, I'll take anything." We discussed concern that Vraylar may not be as effective as we had hoped and the idea of switching to clozapine was discussed. Risks, benefits, potential side effects, and need for weekly blood draws was discussed. Pt states she is willing for the blood draws and is ultimately agreeable to try the medication. Pt states that she continues to have a decent appetite and when asked what other support might benefit her today, she states "if staff can just be there for me." Pt was encouraged to reach out to discuss any additional concerns or events causing distress. Physical Exam Psychiatric Orientation: alert and cooperative Apperance: appropriately dressed, + disheveled (hair appearing unkempt, pants are on inside-out) and appeared stated age Eye Contact: + fair eye contact Motor Behavior: + EPS (TD) Speech: + abnormal rate/rhythm/volume of speech (a bit more dysarthric today, difficult to understand at times) Affect: + depressed affect, + anxious affect and + tearful affect Mood: + depressed mood and + anxious mood Thought Process: + tangential thought process and + incoherent thought process (at times); + thought process not linear or logical Thought Content: + paranoid and + delusions Suicidal Thoughts: denies suicidal thoughts Homicidal Thoughts: denies homicidal thoughts Hallucinations: patient continues to deny Cognition: language grossly intact; + attention not intact Insight: + impaired insight Judgement: + impaired judgement Vital Signs (Past 24 Hours) Last Vital Signs Temp 36.8 C 07/02/20 06:26 Pulse 78 07/02/20 06:27 Resp 18 07/02/20 06:26 BP 112/79 07/02/20 06:27 Pulse Ox 99 02/01/21 23:03 Results & Data ([facility]) Laboratory Results Laboratory Results - last 24 hr 07/01/20 Unknown Urine Color Yellow Urine Appearance Clear Urine pH 6.5 Ur Specific [place] 1.007 Urine Protein Negative Urine Glucose (UA) Negative Urine Ketones Negative Urine Blood Negative Urine Nitrite Negative Urine Bilirubin Negative Urine Urobilinogen Negative Ur Leukocyte Esterase Negative Current Inpatient Medications Current Inpatient Medications: Current Inpatient Medications Acetaminophen (Acetaminophen 325 Mg Tab) 650 mg PO Q4H PRN PRN Reason: Headache or Minor Fever Stop: 07/16/20 22:51 Last Admin: 06/26/20 08:54 Dose: 650 mg Documented by: Al Hydrox/Mg Hydrox/Simethicone (Aluminum/Magnesium Susp 30 Ml Udc) 30 ml PO Q4H PRN PRN Reason: GI Upset Stop: 07/16/20 22:51 Aspirin (Aspirin 81 Mg Ectab) 81 mg PO DAILY DONNIE Stop: 07/18/20 08:59 Last Admin: 07/02/20 08:29 Dose: 81 mg Documented by: Atorvastatin Calcium (Atorvastatin 20 Mg Tab) 20 mg PO HS DONNIE Stop: 07/17/20 21:59 Last Admin: 07/01/20 21:08 Dose: 20 mg Documented by: Benztropine Mesylate (Benztropine Mesylate 1 Mg Tab) 1 mg PO BID PRN PRN Reason: Muscle Spasm Stop: 07/17/20 20:59 Last Admin: 06/24/20 07:57 Dose: 1 mg Documented by: Bismuth Subsalicylate (Bismuth Subsalicylate Liqd 236 Ml) 15 ml PO PRN PRN PRN Reason: Loose Stool Stop: 07/16/20 22:51 Cariprazine (Cariprazine Hcl 3mg Capsule) 1 ea PO DAILY DONNIE Stop: 07/26/20 08:59 Last Admin: 07/02/20 08:29 Dose: 1 ea Documented by: Fluoxetine HCl (Fluoxetine Hcl 10 Mg Cap) 10 mg PO QAM DONNIE Stop: 07/20/20 10:14 Last Admin: 07/02/20 08:29 Dose: 10 mg Documented by: Gabapentin (Gabapentin 100 Mg Cap) 100 mg PO TID DONNIE Stop: 07/17/20 13:59 Last Admin: 07/02/20 08:29 Dose: 100 mg Documented by: Lamotrigine (Lamotrigine 100 Mg Tab) 100 mg PO HS [facility] Stop: 07/19/20 21:59 Last Admin: 07/01/20 21:08 Dose: 100 mg Documented by: Levothyroxine Sodium (Levothyroxine Sodium 100 Mcg Tablet) 100 mcg PO DAILYBB [facility] Stop: 07/18/20 07:59 Last Admin: 07/02/20 08:29 Dose: 100 mcg Documented by: Lorazepam (Lorazepam 0.5 Mg Tab) 0.5 mg PO TID PRN PRN Reason: anxiety Stop: 07/21/20 11:00 Last Admin: 07/02/20 00:47 Dose: 0.5 mg Documented by: Lorazepam (Lorazepam 1 Mg Tab) 1 mg PO [facility] Stop: 07/28/20 21:59 Last Admin: 07/01/20 21:08 Dose: 1 mg Documented by: Lorazepam (Lorazepam 0.5 Mg Tab) 0.5 mg PO BID@0900,1400 [facility] Stop: 07/28/20 13:59 Last Admin: 07/02/20 08:29 Dose: 0.5 mg Documented by: Magnesium Hydroxide (Magnesium Hydroxide Susp 30 Ml Udc) 30 ml PO DAILY PRN PRN Reason: Constipation Stop: 07/16/20 22:51 Multivitamins (Multivitamin Tab) 1 tab PO QAM [facility] Stop: 08/01/20 08:59 Last Admin: 07/02/20 08:29 Dose: 1 tab Documented by: Perphenazine (Perphenazine 2 Mg Tablet) 4 mg PO BID PRN PRN Reason: paranoia Stop: 07/23/20 20:59 Last Admin: 07/02/20 01:14 Dose: 4 mg Documented by: Propranolol HCl (Propranolol Hcl 10 Mg Tab) 10 mg PO BID [facility] Stop: 07/17/20 20:59 Last Admin: 07/02/20 08:29 Dose: 10 mg Documented by: Sodium Chloride (Sodium Chloride 0.65% Na Soln 45 Ml (Scott)) 1 - 2 sprays NA PRN PRN PRN Reason: Nasal Dryness/Congestion Stop: 07/16/20 22:51 Mental Health & Subst Abuse Tx Psychiatrist Name of Psychiatrist: Tyra Redmond Psychiatrist's Date of Appointment with Psychiatrist: 07/23/20 Time of Appointment with Psychiatrist: [id number] Psychiatric Appointment Comment: [id number] [facility] Bank Secrecy Act Officer Name of Bank Secrecy Act Officer: Joanne Zurita Post Discharge Appointments Primary Care Physician Name Of Family Doctor: Jorge Spears Primary [facility] Date of Appointment with PCP: 06/26/20 Time of Appointment with PCP: 10:20 a.m. Provider Appointment Comment: [address] [facility] Neurologist Name of Neurologist: MARITZA Li Neurologist's Date of Appointment with Neurologist: 08/20/20 Time of Appointment with Neurologist: 10:30 a.m. Neurology Appointment Comment: [address] Contact Information Discharge Discharge Address: [address] [place] [address] [place] [address] (1) Psychosis Psychosis type: unspecified psychosis type Qualified Code(s): F29 - Unspecified psychosis not due to a substance or known physiological condition
[2020-07-02 10:31] LABS: Basophils # (auto) 0.02 K/uL (0-0.2); Basophils % (auto) 0.2 %; Eosinophils # (auto) 0.42 K/uL (0-0.5); Eosinophils % (auto) 5.2 %; Hematocrit (blood only) 41.9 % (37-47); Hemoglobin 14.2 g/dL (12.0-16.0); Immature Granulocytes # (auto) 0.01 K/uL (0.00-0.02); Immature Granulocytes % (auto) 0.1 %; Lymphocytes % (auto) 29.7 %; Mean Corpuscular Hemoglobin 29.6 pg (25-34); Mean Corpuscular Hgb Conc 33.9 g/dL (32-36); Mean Corpuscular Volume 87.5 fL (80-100); Monocytes # (auto) 0.61 K/uL (0.11-0.59); Monocytes % (auto) 7.5 %; Neutrophils # (auto) 4.63 K/uL (1.4-6.5); Neutrophils % (auto) 57.3 %; Platelet Count 258 K/uL (130-400); RDW Coefficient of Variation 12.5 % (11.5-14.5); Red Blood Count 4.79 M/uL (4.2-5.4); White Blood Count 8.09 K/uL (4.8-10.8)
[2020-07-02] MEDS: LORazepam 1 MG TAB PO SCH (21:07)
[2020-07-02] MEDS: ATORVASTATIN 20 MG TAB PO SCH (21:07)
[2020-07-02] MEDS: lamoTRIgine 100 MG TAB PO SCH (21:08)
[2020-07-02] MEDS ORDERED: cloZAPine 25 MG TAB PO SCH ×2 (22:00)
[2020-07-03] MEDS: LEVOTHYROXINE SODIUM 100 MCG TABLET PO SCH (07:25)
[2020-07-03] MEDS: BENZTROPINE MESYLATE 1 MG TAB PO PRN (07:26)
[2020-07-03] MEDS: LORazepam 0.5 MG TAB PO SCH ×2 (07:26→13:28)
[2020-07-03] MEDS: MULTIVITAMIN TAB PO SCH (07:27)
[2020-07-03] MEDS: PROPRANOLOL HCL 10 MG TAB PO SCH ×2 (07:27→21:38)
[2020-07-03] MEDS: ASPIRIN 81 MG ECTAB PO SCH (07:27)
[2020-07-03] MEDS: FLUoxetine HCL 10 MG CAP PO SCH (07:28)
[2020-07-03] MEDS: GABAPENTIN 100 MG CAP PO SCH ×3 (07:28→21:38)
--- NOTE | 2020-07-03 08:52 | Psychiatric Progress Note ---
Date of Service July 03, 2020 Impression / Recommendations Impression 60-year-old female with a history of bipolar disorder type I, tardive dyskinesia, and decompensation over the past month and a half with impaired memory, multiple falls, dysarthria, and hallucinations. She had multiple ER visits at the end of April for falls and physical weakness, and due to lithium toxicity her lithium was discontinued, and due to EPS and tardive dyskinesia, Latuda was discontinued, and she was started on lamotrigine. Although lamotrigine was started at the end of April, it was just increased to 50 mg daily 06/06, and Vraylar 1.5 mg added. Her son brought her into the ER due to increasing confusion, incontinence, falls, and hallucinations. We are continuing standard titration of lamotrigine and attempting to limit overuse of antipsychotic medications given the patient's significant TD. There does seem to be an aspect of delirium at play; however, patient has also decompensated psychiatrically and response to medication adjustments has been limited. Decision was made to titrate Vraylar to 3mg due to ongoing delusions/paranoia causing the patient significant distress on the unit. She was also started on scheduled lorazepam due to concern for possible catatonic presentation as patient had been agitated and very restless. Normal MRI reviewed from Apr, outpatient notes reviewed and patient had been referred to neurology. Case has been reviewed with our neurology team and formal consultation was completed for gait instability/multiple falls/tardive dyskinesia - appreciate recommendations provided. As it did not seem that patient was having a robust response to the Vraylar titration, decision was made to pursue a trial of clozapine to target delusions/paranoia while also attempting to reduce risk of worsening TD. Efforts have been made to order valbenazine (which required prior-authorization and specialty pharmacy order) to target significant TD - this has not yet arrived for us to order for use here in the hospital. Pt continues to be disoriented and disorganized to the point that she would not be able to reasonably care for her basic needs outside of the hospital and certainly could not tolerate the stress of community re-entry in her current condition. (1) Psychosis: 2/2 -complicated case, primary diagnosis unclear to me at this point. 2- month history of frequent falls, weakness, and abnormal involuntary movements. Hallucinations with fairly acute onset over the past couple of weeks, as well as memory impairment and significant disorganization on exam today. Minimal evidence of mood episode on my exam, but her outpatient clinician noted symptoms of depression at her last visit a week and a half ago. It would be very helpful to be able to monitor her symptoms around the clock. Differential includes delirium, mood related psychosis, cognitive disorder, or primary thought disorder. -Lamotrigine started a little over a month ago, and just increased to 50 mg daily a week and a half ago. We will continue the standard titration. Vraylar just started about 1 and half weeks ago, will continue 1.5 mg daily. 2/3 - Outpatient records reviewed and care coordinated as above. - Continue Vraylar 1.5mg daily. Fasting labs were checked 11/2019: TG 153, Hgb A1C 5.8% (est ave glucose 120). Will hold off on titrating Vraylar due to her tardive dyskinesia and fact that symptoms are improving. - AIMS today is 10; 3 for tongue movements, 2 for foot movements, 3 for overall severity, and 2 for patient awareness/mild distress. - Patient is slightly more organized in her thinking and speech today, oriented to self and place, but not time. Still confused, unable to find her room, requiring frequent redirection. She is demonstrating paranoia, sometimes directed at staff, but responded well to reassurance, and focus on her distressing emotions. 2/ - Continue medication regimen as above, lamotrigine increasing to 100mg this evening. - Pt continues to be rather confused, but also paranoid. She continues to suggest that staff is talking about her, but has more recently been convinced that several family members are being locked in the various offices on the unit. - Continue attempt to limit antipsychotic medications as able, patient continues to respond well to redirection and reassurance from staff. 2 -The patient remains confused and floridly psychotic. Her delusions are mood congruent with depression. For example, today she tells me that she is to be punished because she has "killed [her] mother and father, and everyone in the family." She is also tearful and sobs through much of today's encounter. She also is experiencing auditory hallucinations that are consistent with the content of the delusions. -She appears not to be oriented to month or year. However, assessment of cognitive functioning is somewhat difficult because the patient is largely mute and is very quickly distracted by what appears to be auditory hallucinations. -The patient is able to tell us that her diagnosis is bipolar disorder and that she is in the hospital being treated for a mental illness. Although she claims to not know what medication she is currently taking, she was able to answer several questions regarding what medication she has or has not taken in the past. Today, reports that she has taken Prozac in the past and that has helped when she is depressed, at least to some extent. 06/20--reviewed past med trials, hesitant to use Haldol or thorazine given her TD and fall risk with latter. She refuses anyway. Did pill counts to confirm started date of Vraylar >2 weeks ago, will increase to 3 mg. Benzos are often helpful for catatonic features but need to watch gait. Start Ativan 0.5 mg TID prn and evaluate response/gait. d/c Sinequan prn as high dose and now on Prozac. d/c Vistaril given anticholinergic and also on Cogentin. Consider Trilafon if no immediate improvement on higher dose of Vraylar. 06/21--improved slightly today, will add standing order Ativan as tolerating 1 mg BID (am and evening meal) and decrease Restoril given am confusion. It is still possible that anticholinergic effects of Vistaril and ?Cogentin contributing to confusion. Will reassess Cogentin dosing tomorrow. 06/22--change Cogentin to prn, offer Trilafon BID prn to assess tolerability for additional coverage during Vraylar trial. D/C Restoril after tonight's dose. This will limit polypharmacy, case reviewed with Dr. Marks due to complexity and reconfirm impression of ongoing slow improvements. Will seek input from neurology on additional assessment here for falls and weakness with incontinence though gait and organization improving. Patient is limited historian/limited cooperation with neuro exam given psychosis. 06/24 -Multiple medication changes over the past few days, including addition of daytime lorazepam 1 mg twice daily, taper off of temazepam, increase of cariprazine to 3 mg daily, discontinuing scheduled benztropine, and addition of perphenazine 4 mg twice daily as needed. She remains on lamotrigine 100 mg daily (can be increased to 200 mg daily on 07/03/2020, per standard titration protocol). She received 4 mg perphenazine x 2 yesterday, and 1 so far today. Psychosis continues, with auditory hallucinations and paranoia/delusions of persecution. Given that we are trying to minimize antipsychotic burden due to her EPS, I will increase her lorazepam to 1 mg 3 times daily to target anxious distress and catatonia, but will need to watch for sedation and impaired gait. AIMS today is 12; 4 for tongue movements, 3 for severity, 2 for incapacitation, and 3 for patient awareness. 06/25 - Continue current medication regimen - patient does have reported moments confusion and visual hallucinations. There does seem to be a component of delirium superimposed on patient's psychosis, but unlikely to explain all of her current presentation. - During conversation today, patient is confused but not verbalizing delusions or paranoia - Neurology consult as outlined below 06/26 - Continue current medication regimen - will attempt to acquire valbenazine to target TD - Pt continues to have waxing and waning confusion, but symptoms of clinton psychosis do seem to be steadily improving - Staff continue to report concerns for gait instability - patient on formal 1:1 after sustaining minor falls 2 days ago. 06/27 -Continue current medication regimen. -The patient is continued to have waxing and waning confusion, but overall her periods of confusion seem to be less frequent and less prominent. -Our attempt to obtain authorization for coverage of valbenazine have been unsuccessful. We are currently appealing the decision based on the fact that patient's tardive dyskinesia is so severe that she has trouble ingesting food and communicating orally. -Patient has been taken off one-to-one, but she is being closely monitored by staff. The patient has demonstrated that she is being very careful when ambulating. 06/28 - Tapering lorazepam - 0.5mg at 0900 and 1400, and maintaining 1mg dose qHS. Continue Vraylar, Lamictal, and Prozac. - Pt continues to have waxing and waning of confusion - intermittently requiring staff redirection - Pt stating today that she just learned her father , and believes he is being buried today. Still intermittently believes her family is hidden around the unit. 06/29 - 07/01 - Continue current medication regimen - patient still having episodes of confusion, visual hallucinations, delusions, and paranoia. - Pt will likely require additional time to stabilize, though continues to have slow improvement. 07/02 - Will discontinue Vraylar and initiate a titration of clozapine - patient informed of common side effects and need for weekly blood monitoring and agreed to the medication change. Titration of clozapine has been ordered up to a dose of 150mg - this can be adjusted based on patient's ability to tolerate the new medication. - Clozapine [facility] enrollment ID: [id number] - Patient's dose of lamotrigine can also be increased to 150mg with tomorrow evening's dose - Pt continues to be emotionally labile with ongoing delusions/paranoia and frequent episodes of confusion. - She did report pain with urination to staff yesterday, stating it felt like previous UTI's she has experienced - UA completed, still not demonstrating concern for UTI. 07/03 - Clozapine dosing adjusted to allow for BID administration of the medication. Pt will receive 25mg BID today, dosing can continue to be titrated as tolerated. - Titrating lamotrigine to 150mg this evening - Pt continues to be emotionally labile with ongoing delusions/paranoia and frequent episodes of confusion. (2) Bipolar 1 disorder: 2/2 - Historical diagnosis, previous admission for alison. Recent medication adjustments made including discontinuing lithium and starting Vraylar and lamotrigine. Continue home meds for now while gathering additional information, spoke with Tyra Higgins to coordinate care. - Referring for BCM through [facility]. 2/3 -patient appears anxious and depressed today, son expresses concerns that she has been more depressed lately, which he attributes to her loss of independence and marital discord. Continue titration of lamotrigine, increase to 100mg daily tomorrow. 2 - Lamotrigine to increase to 100mg this evening - continue standard titration schedule to target mood concerns - Patient continues to present as primarily depressed and anxiety, frequently tearful and distressed on the unit - though much of this is likely related to a reaction to current psychotic symptoms. 2 -The patient continues to appear anxious and depressed. -She appears to be tolerating the titration of lamotrigine. -Sleep remains suboptimal. Appetite remains suboptimal. -I will offer the patient a trial of fluoxetine 10 mg daily with caution, given her diagnosis of bipolar disorder. She is currently taking 2 mood stabilizing agents. 06/21 Reviewed. 06/26 - Treatment plan as outlined under "Psychosis" 06/27 -See above. 07/03 - Titrating lamotrigine to 150mg this evening. (3) Tardive dyskinesia: 06/17 -monitor abnormal involuntary movements, consider trial of Ingrezza, although I believe it is nonformulary -Consider neurology consult for assistance with increase in falls, weakness, and abnormal movements -she was apparently referred to [facility] 4 months ago, and her appointment is sometime this month. 06/18 -patient's gait has been steady since admission, without falls. She is not demonstrating obvious signs of weakness here, is ambulating, getting in and out of chairs, and performing ADLs without difficulty. She reportedly has an outpatient neurology appointment next week, will clarify that and may not need inpatient consultation 06/21--reviewed. 06/24 -case was reviewed with neurology over the weekend, and they did not suggest any further inpatient work-up of her weakness, recurrent falls, gait difficulties, given that she had a normal brain MRI and would not currently be able to tolerate an LP. Her outpatient neurology appointment has been rescheduled for 08/20/[address] Li. 06/25 - Will request formal neurology consultation at this point, patient has had 3 minor falls during her stay with two occurring yesterday - It is likely that there is a component of delirium at play presently, but there are outpatient reports that suggest these gait disturbances and weakness was occurring prior to her medication changes/psychiatric admission - Case had been reviewed with our neurology service, would appreciate any input from formal examination and evaluation. Consult placed for "unsteady gait, multiple falls, and tardive dyskinesia" - CMP and UA re-ordered given waxing and waning confusion - pt did have UA prior to admission that appeared to be contaminated. Pt does admit to urinary frequency, but says this is not new. 06/26 - Appreciate recommendations offered by our neurology service. - They also recommend initiating valbenazine 40mg for TD symptoms - Additional labs were also recommended: will order A1c, TSH reflex free T4, vit B12 - Recommendation for outpatient neuropsychological testing referral 06/27 -Today, the patient reports that she is pleased to tell us that she believes that her tardive dyskinesia symptoms have improved somewhat, possibly after having taken [Vraylar] consistently this week. -As noted above, coverage authorization for valbenazine 40 mg daily for her severe tardive dyskinesia is inexplicably been denied, and we are appealing the decision. The decision is based on the severity of the patient's symptoms and the degree to which the adversely affect her ability to eat and communicate verbally. 06/28 - Received notification that Ingrezza 40mg has been approved - attempting to determine cost for use and specialty pharmacy that can provide the prescription. 07/01 - Ingrezza 40mg has reportedly been ordered and is being mailed to the patient's home. Family to bring in the prescription once it arrives. Risk Factors Assessment Male: No : Yes Health Problems: Yes Mental Health Diagnoses: Yes Substance Use Disorders: No Previous Psychiatric Hospitalization: Yes Hopelessness: No Smoker: No Protective Factors Assessment : Yes Responsible for Young Children: No Employed: No Supportive Family: Yes Good Rapport with Provider: Yes Interval History Identifying Information ALVARO FRAIRE is a 60-year-old F who currently lives in [place] with her , has a history of bipolar disorder type I, and was admitted on 06/16/20 22:11 on a 201 voluntary commitment for psychosis. Chief Complaint "I was seeing those things again." Review of Systems Notes Constitutional: reports improved sleep last evening Cardiovascular: denied Respiratory: denied Gastrointestinal: denied Neurological: denied Psychiatric: denies symptoms other than stated above Total of at least 10 systems reviewed, pertinent positives as above and in HPI. Sleep Information Total Hours of Sleep: 9.75 Sleep Comments: . Meal Information Percent Meal Consumed - Breakfast: 50 Percent Meal Consumed - Lunch: 50 Percent Meal Consumed - Dinner: 100 Nutrition Comment: . Subjective Subjective Patient was seen & assessed and interval progress reviewed with nursing and social work. Staff report the patient had another difficult evening, as she was tangential, confused, and reported that she was seeing blood in the hallways and appeared to be spoon-feeding the chairs thinking they were her grandchildren. Pt did, however, sleep 9 hours last night which is a significant improvement. Pt was seen today to assess progress since admission. Pt was observed in the morning to be rather tearful, claiming she was kicked out of groups and requesting this provider "lie for me so that I can go home." Pt did agree to walk laps with this provider after her shower. She admits "I was seein g those things again." Pt reports she saw "one of those daddy long leg things, it was crawling toward my bed last night. But that blondie got rid of it." Pt admitted she was referring to our recreational therapist, and was informed that he would not have been working last evening. We superficially discussed the idea that due to her hospitalization, poor sleep, medication changes, etc. that she may be having periods of confusion where her mind is 'playing tricks on her.' The patient admitted that this could be true, but then states "why would they do that to me then?" Pt denies side effects following her first 2 doses of clozapine. Pt agrees to continue the titration and does as some simple, but appropriate questions about the medications. Pt denies SI and per her report is not having auditory hallucinations. She denied other needs or concerns at this time. Physical Exam Psychiatric Orientation: alert, oriented to person and oriented to place; + not oriented to time Apperance: appropriately dressed, appropriately groomed (recently showered) and appeared stated age Eye Contact: + fair eye contact Motor Behavior: steady gait and station and + EPS (TD) Speech: normal rate/rhythm/volume of speech speech is regularly affected to some extent by TD; however, patient is rather easily understood today. Affect: + blunted affect Mood: no depressed mood ("I'm ok") Thought Process: + tangential thought process (and disoriented); + thought process not linear or logical Thought Content: + paranoid (intermittently) and + delusions Suicidal Thoughts: denies suicidal thoughts Homicidal Thoughts: denies homicidal thoughts Hallucinations: + visual hallucinations (still seeing bugs/animals as wells as family members on the unit); no auditory hallucinations (at least denied by patient) Cognition: attention grossly intact and language grossly intact Insight: + impaired insight Judgement: + impaired judgement Vital Signs (Past 24 Hours) Last Vital Signs Temp 36.8 C 07/03/20 06:41 Pulse 79 07/03/20 06:42 Resp 18 07/03/20 06:41 BP 128/84 07/03/20 06:42 Pulse Ox 99 06/16/20 23:03 Results & Data ([facility]) Laboratory Results Laboratory Results - last 24 hr 07/02/20 10:14 WBC 8.09 RBC 4.79 Hgb 14.2 Hct 41.9 MCV 87.5 MCH 29.6 MCHC 33.9 RDW Std Deviation 40.0 RDW Coeff of Zakiya 12.5 Plt Count 258 MPV 11.0 H Immature Gran % (Auto) 0.1 Neut % (Auto) 57.3 Lymph % (Auto) 29.7 Jefferson % (Auto) 7.5 Eos % (Auto) 5.2 Baso % (Auto) 0.2 Neut # (Auto) 4.63 Lymph # (Auto) 2.40 Jefferson # (Auto) 0.61 H Eos # (Auto) 0.42 Baso # (Auto) 0.02 Immature Gran # (Auto) 0.01 Current Inpatient Medications Current Inpatient Medications: Current Inpatient Medications Acetaminophen (Acetaminophen 325 Mg Tab) 650 mg PO Q4H PRN PRN Reason: Headache or Minor Fever Stop: 07/16/20 22:51 Last Admin: 06/26/20 08:54 Dose: 650 mg Documented by: Al Hydrox/Mg Hydrox/Simethicone (Aluminum/Magnesium Susp 30 Ml Udc) 30 ml PO Q4H PRN PRN Reason: GI Upset Stop: 07/16/20 22:51 Aspirin (Aspirin 81 Mg Ectab) 81 mg PO DAILY [facility] Stop: 07/18/20 08:59 Last Admin: 07/03/20 07:27 Dose: 81 mg Documented by: Atorvastatin Calcium (Atorvastatin 20 Mg Tab) 20 mg PO HS [facility] Stop: 07/17/20 21:59 Last Admin: 07/02/20 21:07 Dose: 20 mg Documented by: Benztropine Mesylate (Benztropine Mesylate 1 Mg Tab) 1 mg PO BID PRN PRN Reason: Muscle Spasm Stop: 07/17/20 20:59 Last Admin: 07/03/20 07:26 Dose: 1 mg Documented by: Bismuth Subsalicylate (Bismuth Subsalicylate Liqd 236 Ml) 15 ml PO PRN PRN PRN Reason: Loose Stool Stop: 07/16/20 22:51 Clozapine (Clozapine 25 Mg Tab) 25 mg PO BID DONNIE Stop: 08/02/20 08:59 Fluoxetine HCl (Fluoxetine Hcl 10 Mg Cap) 10 mg PO QAM DONNIE Stop: 07/20/20 10:14 Last Admin: 07/03/20 07:28 Dose: 10 mg Documented by: Gabapentin (Gabapentin 100 Mg Cap) 100 mg PO TID [facility] Stop: 07/17/20 13:59 Last Admin: 07/03/20 07:28 Dose: 100 mg Documented by: Lamotrigine (Lamotrigine 100 Mg Tab) 100 mg PO [facility] Stop: 07/19/20 21:59 Last Admin: 07/02/20 21:08 Dose: 100 mg Documented by: Levothyroxine Sodium (Levothyroxine Sodium 100 Mcg Tablet) [facility] Stop: 07/18/20 07:59 Last Admin: 07/03/20 07:25 Dose: 100 mcg Documented by: Lorazepam (Lorazepam 0.5 Mg Tab) 0.5 mg PO TID PRN PRN Reason: anxiety Stop: 07/21/20 11:00 Last Admin: 07/02/20 16:33 Dose: 0.5 mg Documented by: Lorazepam (Lorazepam 1 Mg Tab) 1 mg PO [facility] Stop: 07/28/20 21:59 Last Admin: 07/02/20 21:07 Dose: 1 mg Documented by: Lorazepam (Lorazepam 0.5 Mg Tab) 0.5 mg PO BID@0900,1400 [facility] Stop: 07/28/20 13:59 Last Admin: 07/03/20 07:26 Dose: 0.5 mg Documented by: Magnesium Hydroxide (Magnesium Hydroxide Susp 30 Ml Udc) 30 ml PO DAILY PRN PRN Reason: Constipation Stop: 07/16/20 22:51 Multivitamins (Multivitamin Tab) [facility] Stop: 08/01/20 08:59 Last Admin: 07/03/20 07:27 Dose: 1 tab Documented by: Perphenazine (Perphenazine 2 Mg Tablet) 4 mg PO BID PRN PRN Reason: paranoia Stop: 07/23/20 20:59 Last Admin: 07/02/20 01:14 Dose: 4 mg Documented by: Propranolol HCl (Propranolol Hcl 10 Mg Tab) 10 mg PO BID [facility] Stop: 07/17/20 20:59 Last Admin: 07/03/20 07:27 Dose: 10 mg Documented by: Sodium Chloride (Sodium Chloride 0.65% Na Soln 45 Ml (Dillon)) 1 - 2 sprays NA PRN PRN PRN Reason: Nasal Dryness/Congestion Stop: 07/16/20 22:51 Mental Health & Subst Abuse Tx Psychiatrist Name of Psychiatrist: Tyra Redmond Psychiatrist's Date of Appointment with Psychiatrist: 07/23/20 Time of Appointment with Psychiatrist: [id number] Psychiatric Appointment Comment: [id number] [facility] Test Pilot Name of Test Pilot: Joanne Zurita Post Discharge Appointments Primary Care Physician Name Of Family Doctor: Jorge Spears [facility] Date of Appointment with PCP: 06/26/20 Time of Appointment with PCP: 10:20 a.m. Provider Appointment Comment: [id number] [facility] Neurologist Name of Neurologist: MARITZA Li Neurologist's Date of Appointment with Neurologist: 08/20/20 Time of Appointment with Neurologist: 10:30 a.m. Neurology Appointment Comment: [facility] [address] Contact Information Discharge Discharge Address: [address] [place] [address] [place] [address] (1) Psychosis Psychosis type: unspecified psychosis type Qualified Code(s): F29 - Unspecified psychosis not due to a substance or known physiological condition
[2020-07-03] MEDS: cloZAPine 25 MG TAB PO SCH ×2 (10:57→21:37)
[2020-07-03] MEDS: lamoTRIgine 100 MG TAB PO SCH (21:39)
[2020-07-03] MEDS: LORazepam 1 MG TAB PO SCH (21:39)
[2020-07-03] MEDS: ATORVASTATIN 20 MG TAB PO SCH (21:39)
[2020-07-04] MEDS: ASPIRIN 81 MG ECTAB PO SCH (08:24)
[2020-07-04] MEDS: GABAPENTIN 100 MG CAP PO SCH (08:25)
[2020-07-04] MEDS: LEVOTHYROXINE SODIUM 100 MCG TABLET PO SCH (08:25)
[2020-07-04] MEDS: FLUoxetine HCL 10 MG CAP PO SCH (08:25)
[2020-07-04] MEDS: MULTIVITAMIN TAB PO SCH (08:25)
[2020-07-04] MEDS: cloZAPine 25 MG TAB PO SCH ×2 (08:25→19:59)
[2020-07-04] MEDS: PROPRANOLOL HCL 10 MG TAB PO SCH ×2 (08:25→19:59)
[2020-07-04] MEDS: LORazepam 0.5 MG TAB PO SCH ×2 (08:27→14:55)
[2020-07-04] MEDS ORDERED: LORazepam 1 MG TAB PO STA ×2 (12:24→18:28)
[2020-07-04] MEDS ORDERED: GADOBUTROL 30ML VIAL IV ONE (13:45)
--- NOTE | 2020-07-04 14:06 | Magnetic Resonance Report ---
Brain MRI WITH AND WITHOUT CONTRAST HISTORY: olfactory and visual hallucinations TECHNIQUE: Multiplanar multisequence MRI of the brain was performed both before and after the intrave nous administration of contrast. COMPARISON STUDY: Brain MRI 05/05/2020. FINDINGS: There are no areas of restricted diffusion to suggest acute infarction. The midline structu res are intact. The paranasal sinuses are clear. The mastoid air cells are clear. The ventricles and sulci are within normal limits for age. There is no mass, hematoma, midline shift. The major vascular flow-voids at the skull base are well maintained. Postcontrast sequences show no areas of abnormal e nhancement. IMPRESSION: No acute intracranial abnormality. ACT 112: Negative or not required by law. Electronically signed by: True Iverson M.D. 07/04/2020 2:05 PM
[2020-07-04] MEDS: GABAPENTIN 300 MG CAP PO SCH ×2 (16:25→20:00)
--- NOTE | 2020-07-04 16:36 | Psychiatric Progress Note ---
Date of Service July 04, 2020 Impression / Recommendations Impression 60-year-old female with a history of bipolar disorder type I, tardive dyskinesia, and decompensation over the past month and a half with impaired memory, multiple falls, dysarthria, and hallucinations. She had multiple ER visits at the end of April for falls and physical weakness, and due to lithium toxicity her lithium was discontinued, and due to EPS and tardive dyskinesia, Latuda was discontinued, and she was started on lamotrigine. Although lamotrigine was started at the end of April, it was just increased to 50 mg daily 06/06, and Vraylar 1.5 mg added. Her son brought her into the ER due to increasing confusion, incontinence, falls, and hallucinations. We are continuing standard titration of lamotrigine and attempting to limit overuse of antipsychotic medications given the patient's significant TD. There does seem to be an aspect of delirium at play; however, patient has also decompensated psychiatrically and response to medication adjustments has been limited. Decision was made to titrate Vraylar to 3mg due to ongoing delusions/paranoia causing the patient significant distress on the unit. She was also started on scheduled lorazepam due to concern for possible catatonic presentation as patient had been agitated and very restless. Normal MRI reviewed from Apr, outpatient notes reviewed and patient had been referred to neurology. Case has been reviewed with our neurology team and formal consultation was completed for gait instability/multiple falls/tardive dyskinesia - appreciate recommendations provided. As it did not seem that patient was having a robust response to the Vraylar titration, decision was made to pursue a trial of clozapine to target delusions/paranoia while also attempting to reduce risk of worsening TD. Efforts have been made to order valbenazine (which required prior-authorization and specialty pharmacy order) to target significant TD - this has not yet arrived for us to order for use here in the hospital. Pt continues to be disoriented and disorganized to the point that she would not be able to reasonably care for her basic needs outside of the hospital and certainly could not tolerate the stress of community re-entry in her current condition. Because of what appear to be periodic reports of visual and olfactory hallucinations, typically not explained by bipolar disorder, and because of per symptoms of confusion, such as disorientation, something that is clearly not consistent with the patient's baseline, we want to rule out central nervous system pathology such as a space-occupying lesion. It is noted that she had MRI with contrast last summer, and an MRI without contrast in April 2020. However, because of the above findings we believe that we need to do an MRI with contrast to help us rule out what really does appear to be a certain amount of an underlying organic overlay the patient's psychiatric symptoms. It is also possible that the patient is experiencing complex partial seizures, because her condition does appear to wax and wane to some extent. (1) Psychosis: 2/ -complicated case, primary diagnosis unclear to me at this point. 2- month history of frequent falls, weakness, and abnormal involuntary movements. Hallucinations with fairly acute onset over the past couple of weeks, as well as memory impairment and significant disorganization on exam today. Minimal evidence of mood episode on my exam, but her outpatient clinician noted symptoms of depression at her last visit a week and a half ago. It would be very helpful to be able to monitor her symptoms around the clock. Differential includes delirium, mood related psychosis, cognitive disorder, or primary thought disorder. -Lamotrigine started a little over a month ago, and just increased to 50 mg daily a week and a half ago. We will continue the standard titration. Vraylar just started about 1 and half weeks ago, will continue 1.5 mg daily. 2/ - Outpatient records reviewed and care coordinated as above. - Continue Vraylar 1.5mg daily. Fasting labs were checked 11/2019: TG 153, Hgb A1C 5.8% (est ave glucose 120). Will hold off on titrating Vraylar due to her tardive dyskinesia and fact that symptoms are improving. - AIMS today is 10; 3 for tongue movements, 2 for foot movements, 3 for overall severity, and 2 for patient awareness/mild distress. - Patient is slightly more organized in her thinking and speech today, oriented to self and place, but not time. Still confused, unable to find her room, requiring frequent redirection. She is demonstrating paranoia, sometimes directed at staff, but responded well to reassurance, and focus on her distressing emotions. 2/4 - Continue medication regimen as above, lamotrigine increasing to 100mg this evening. - Pt continues to be rather confused, but also paranoid. She continues to suggest that staff is talking about her, but has more recently been convinced that several family members are being locked in the various offices on the unit. - Continue attempt to limit antipsychotic medications as able, patient continues to respond well to redirection and reassurance from staff. 06/20 -The patient remains confused and floridly psychotic. Her delusions are mood congruent with depression. For example, today she tells me that she is to be punished because she has "killed [her] mother and father, and everyone in the family." She is also tearful and sobs through much of today's encounter. She also is experiencing auditory hallucinations that are consistent with the content of the delusions. -She appears not to be oriented to month or year. However, assessment of cognitive functioning is somewhat difficult because the patient is largely mute and is very quickly distracted by what appears to be auditory hallucinations. -The patient is able to tell us that her diagnosis is bipolar disorder and that she is in the hospital being treated for a mental illness. Although she claims to not know what medication she is currently taking, she was able to answer several questions regarding what medication she has or has not taken in the past. Today, reports that she has taken Prozac in the past and that has helped when she is depressed, at least to some extent. 06/20--reviewed past med trials, hesitant to use Haldol or thorazine given her TD and fall risk with latter. She refuses anyway. Did pill counts to confirm started date of Vraylar >2 weeks ago, will increase to 3 mg. Benzos are often helpful for catatonic features but need to watch gait. Start Ativan 0.5 mg TID prn and evaluate response/gait. d/c Sinequan prn as high dose and now on Prozac. d/c Vistaril given anticholinergic and also on Cogentin. Consider Trilafon if no immediate improvement on higher dose of Vraylar. 06/21--improved slightly today, will add standing order Ativan as tolerating 1 mg BID (am and evening meal) and decrease Restoril given am confusion. It is still possible that anticholinergic effects of Vistaril and ?Cogentin contributing to confusion. Will reassess Cogentin dosing tomorrow. 06/22--change Cogentin to prn, offer Trilafon BID prn to assess tolerability for additional coverage during Vraylar trial. D/C Restoril after tonight's dose. This will limit polypharmacy, case reviewed with Dr. Marks due to complexity and reconfirm impression of ongoing slow improvements. Will seek input from neurology on additional assessment here for falls and weakness with incontinence though gait and organization improving. Patient is limited historian/limited cooperation with neuro exam given psychosis. 06/24 -Multiple medication changes over the past few days, including addition of daytime lorazepam 1 mg twice daily, taper off of temazepam, increase of cariprazine to 3 mg daily, discontinuing scheduled benztropine, and addition of perphenazine 4 mg twice daily as needed. She remains on lamotrigine 100 mg daily (can be increased to 200 mg daily on 07/03/2020, per standard titration protocol). She received 4 mg perphenazine x 2 yesterday, and 1 so far today. Psychosis continues, with auditory hallucinations and paranoia/delusions of persecution. Given that we are trying to minimize antipsychotic burden due to her EPS, I will increase her lorazepam to 1 mg 3 times daily to target anxious distress and catatonia, but will need to watch for sedation and impaired gait. AIMS today is 12; 4 for tongue movements, 3 for severity, 2 for incapacitation, and 3 for patient awareness. 06/25 - Continue current medication regimen - patient does have reported moments confusion and visual hallucinations. There does seem to be a component of delirium superimposed on patient's psychosis, but unlikely to explain all of her current presentation. - During conversation today, patient is confused but not verbalizing delusions or paranoia - Neurology consult as outlined below 06/26 - Continue current medication regimen - will attempt to acquire valbenazine to target TD - Pt continues to have waxing and waning confusion, but symptoms of clinton psychosis do seem to be steadily improving - Staff continue to report concerns for gait instability - patient on formal 1:1 after sustaining minor falls 2 days ago. 06/27 -Continue current medication regimen. -The patient is continued to have waxing and waning confusion, but overall her periods of confusion seem to be less frequent and less prominent. -Our attempt to obtain authorization for coverage of valbenazine have been unsuccessful. We are currently appealing the decision based on the fact that patient's tardive dyskinesia is so severe that she has trouble ingesting food and communicating orally. -Patient has been taken off one-to-one, but she is being closely monitored by staff. The patient has demonstrated that she is being very careful when ambulating. 06/28 - Tapering lorazepam - 0.5mg at 0900 and 1400, and maintaining 1mg dose qHS. Continue Vraylar, Lamictal, and Prozac. - Pt continues to have waxing and waning of confusion - intermittently requiring staff redirection - Pt stating today that she just learned her father , and believes he is being buried today. Still intermittently believes her family is hidden around the unit. 06/29 - 07/01 - Continue current medication regimen - patient still having episodes of confusion, visual hallucinations, delusions, and paranoia. - Pt will likely require additional time to stabilize, though continues to have slow improvement. 07/02 - Will discontinue Vraylar and initiate a titration of clozapine - patient informed of common side effects and need for weekly blood monitoring and agreed to the medication change. Titration of clozapine has been ordered up to a dose of 150mg - this can be adjusted based on patient's ability to tolerate the new medication. - Clozapine [facility] enrollment ID: [id number] - Patient's dose of lamotrigine can also be increased to 150mg with tomorrow evening's dose - Pt continues to be emotionally labile with ongoing delusions/paranoia and frequent episodes of confusion. - She did report pain with urination to staff yesterday, stating it felt like previous UTI's she has experienced - UA completed, still not demonstrating concern for UTI. 07/03 - Clozapine dosing adjusted to allow for BID administration of the medication. Pt will receive 25mg BID today, dosing can continue to be titrated as tolerated. - Titrating lamotrigine to 150mg this evening - Pt continues to be emotionally labile with ongoing delusions/paranoia and frequent episodes of confusion. 07/04 -The patient has tolerated lamotrigine at 150 mg. -We will increase her dose of clozapine from 25 mg twice a day to 50 mg twice a day, beginning this evening. -The patient underwent a MRI with contrast today. This imaging study was noncontributory and was read as being essentially within normal limits. -Patient has been less emotionally labile today, and is generally pleasant on approach. However, she remains delusional and, as noted above, has been reporting that she is "seeing" the remains of a deer in her hospital bed room, and, further, she insists that she can smell the putrid smell of the rotting animal. Given that her MRI with contrast today was within normal limits we are suspecting that she may be experiencing complex partial seizures. For that reason, her dose of gabapentin is being increased to a dose of gabapentin 300 mg 3 times a day. (2) Bipolar 1 disorder: 06/17 - Historical diagnosis, previous admission for alison. Recent medication adjustments made including discontinuing lithium and starting Vraylar and lamotrigine. Continue home meds for now while gathering additional information, spoke with Tyra Higgins to coordinate care. - Referring for [facility] through [facility]. 06/18 -patient appears anxious and depressed today, son expresses concerns that she has been more depressed lately, which he attributes to her loss of independence and marital discord. Continue titration of lamotrigine, increase t o 100mg daily tomorrow. 06/19 - Lamotrigine to increase to 100mg this evening - continue standard titration schedule to target mood concerns - Patient continues to present as primarily depressed and anxiety, frequently tearful and distressed on the unit - though much of this is likely related to a reaction to current psychotic symptoms. 06/20 -The patient continues to appear anxious and depressed. -She appears to be tolerating the titration of lamotrigine. -Sleep remains suboptimal. Appetite remains suboptimal. -I will offer the patient a trial of fluoxetine 10 mg daily with caution, given her diagnosis of bipolar disorder. She is currently taking 2 mood stabilizing agents. 06/21 Reviewed. 06/26 - Treatment plan as outlined under "Psychosis" 06/27 -See above. 07/03 - Titrating lamotrigine to 150mg this evening. 07/04 -We also increasing gabapentin to 300 mg 3 times a day, primarily to address possible complex partial seizures, but also because it may provide some additional mood stabilization.) -Clozapine has been increased to a dose of 50 mg twice a day, starting this evening. -Some of the patient's presenting symptoms, such as apparent olfactory and visual hallucinations are not generally attributable to a diagnosis of bipolar disorder and we are continuing to investigate. (3) Tardive dyskinesia: 06/17 -monitor abnormal involuntary movements, consider trial of Ingrezza, although I believe it is nonformulary -Consider neurology consult for assistance with increase in falls, weakness, and abnormal movements -she was apparently referred to [facility] 4 months ago, and her appointment is sometime this month. 06/18 -patient's gait has been steady since admission, without falls. She is not demonstrating obvious signs of weakness here, is ambulating, getting in and out of chairs, and performing ADLs without difficulty. She reportedly has an outpatient neurology appointment next week, will clarify that and may not need inpatient consultation 06/21--reviewed. 06/24 -case was reviewed with neurology over the weekend, and they did not suggest any further inpatient work-up of her weakness, recurrent falls, gait diff iculties, given that she had a normal brain MRI and would not currently be able to tolerate an LP. Her outpatient neurology appointment has been rescheduled for 08/20/[address] Li. 06/25 - Will request formal neurology consultation at this point, patient has had 3 minor falls during her stay with two occurring yesterday - It is likely that there is a component of delirium at play presently, but there are outpatient reports that suggest these gait disturbances and weakness was occurring prior to her medication changes/psychiatric admission - Case had been reviewed with our neurology service, would appreciate any input from formal examination and evaluation. Consult placed for "unsteady gait, multiple falls, and tardive dyskinesia" - CMP and UA re-ordered given waxing and waning confusion - pt did have UA prior to admission that appeared to be contaminated. Pt does admit to urinary frequency, but says this is not new. 06/26 - Appreciate recommendations offered by our neurology service. - They also recommend initiating valbenazine 40mg for TD symptoms - Additional labs were also recommended: will order A1c, TSH reflex free T4, vit B12 - Recommendation for outpatient neuropsychological testing referral 06/27 -Today, the patient reports that she is pleased to tell us that she believes that her tardive dyskinesia symptoms have improved somewhat, possibly after having taken [Vraylar] consistently this week. -As noted above, coverage authorization for valbenazine 40 mg daily for her severe tardive dyskinesia is inexplicably been denied, and we are appealing the decision. The decision is based on the severity of the patient's symptoms and the degree to which the adversely affect her ability to eat and communicate verbally. 06/28 - Received notification that Ingrezza 40mg has been approved - attempting to determine cost for use and specialty pharmacy that can provide the prescription. 07/01 - Ingrezza 40mg has reportedly been ordered and is being mailed to the patient's home. Family to bring in the prescription once it arrives. 07/04 -We are still awaiting receipt of Ingrezza. The patient feels that her tardive dyskinesia has improved and today she says as she did last week that she is able to eat better. -The severity of the patient's abnormal involuntary movements does seem to have improved somewhat. Risk Factors Assessment Male: No : Yes Health Problems: Yes Mental Health Diagnoses: Yes Substance Use Disorders: No Previous Psychiatric Hospitalization: Yes Hopelessness: No Smoker: No Protective Factors Assessment : Yes Responsible for Young Children: No Employed: No Supportive Family: Yes Good Rapport with Provider: Yes Interval History Identifying Information ALVARO FRAIRE is a 60-year-old F who currently lives in [place] with her , has a history of bipolar disorder type I, and was admitted on 06/16/20 22:11 on a 201 voluntary commitment for psychosis. Chief Complaint "We are happy put the baby". Review of Systems Sleep Information Total Hours of Sleep: 0.5 Sleep Comments: pt appeared to only sleep 1/2 hr, but appeared to sleep 2.5 hrs during evening shift. pt redirectable back to her room, stating she is "seeing snakes", but pt informed of no snakes visible. pt on q-15 minute checks Meal Information Percent Meal Consumed - Breakfast: 10 Percent Meal Consumed - Lunch: 75 Percent Meal Consumed - Dinner: 100 Nutrition Comment: . Subjective Subjective Patient was seen & assessed and interval progress reviewed with treatment team. I met individually with the patient in order to assess her current mental status, evaluate her response to treatment, make any necessary changes in the patient's treatment regimen, and address issues, questions, and concerns that may arise. The patient begins by telling me that she remembers meeting with me last week and said that she was wondering where I was. She had difficulty responding with reality based responses to the various questions that were asked, and she acknowledges that she has been confused. One of the things that she reports is that "someone" has put the remnants of a deer in her room here on [address] and the deer remains "really stink something awful." She assures us that she can see the animal, and small the animal, and she repeatedly asks us to remove it from her room because the odor is disturbing her. She also continues to believe that certain family members are being held hostage in various rooms on the unit. Other behaviors observed include her simply walking into the nursing station and saying things such as "is the baby here? I want to see her!" The patient does say that she now feels that her relationship with her is "really good," and she describes him as "a great ." She also talks about her shoulder and the present tense (previously she had insisted that she had killed them). When asked if she felt that her new medicine, clozapine, is helping she said "I think may be a little." The patient also disputes reports that she has not been sleeping and says that the staff are mistaken and, in fact, she is sleeping at night. She is not oriented to year despite several rehearsals and continues to respond to orientation questions regarding the year by saying, "19.19" When prompted with "it is 1999 what?" She said "2005?" Physical Exam Psychiatric Orientation: alert and oriented to person Oriented to situation. The patient knows that she is on the psychiatric unit. She cannot name the hospital today. Apperance: appropriately dressed, appropriately groomed and appeared stated age Eye Contact: + fair eye contact Abnormal involuntary movements consistent with tardive dyskinesia. Patient speech is spontaneous, but somewhat babbling. She often appears to be responding to internal stimuli. Affect: + blunted affect "Fine." Thought Process: + thought blocking and + looseness of associations Thought Content: + delusions Suicidal Thoughts: + reports suicidal thoughts Homicidal Thoughts: + reports homicidal thoughts Hallucinations: + auditory hallucinations (The patient appears to be responding to internal stimuli) and + visual hallucinations Olfactory Patient is able to recall details from her most recent psychiatric hospitalization, number of years ago. She also correctly recalls that she last saw me about a week ago Estimated Intelligence: average estimated intelligence Insight: + poor insight Judgement: + poor judgement Vital Signs (Past 24 Hours) Last Vital Signs Temp 36.7 C 07/04/20 06:47 Pulse 79 07/04/20 06:48 Resp 18 07/04/20 06:47 BP 123/85 07/04/20 06:48 Pulse Ox 99 06/16/20 23:03 Results & Data ([facility]) Current Inpatient Medications Current Inpatient Medications: Current Inpatient Medications Acetaminophen (Acetaminophen 325 Mg Tab) 650 mg PO Q4H PRN PRN Reason: Headache or Minor Fever Stop: 07/16/20 22:51 Last Admin: 06/26/20 08:54 Dose: 650 mg Documented by: Al Hydrox/Mg Hydrox/Simethicone (Aluminum/Magnesium Susp 30 Ml Udc) 30 ml PO Q4H PRN PRN Reason: GI Upset Stop: 07/16/20 22:51 Aspirin (Aspirin 81 Mg Ectab) 81 mg PO DAILY DONNIE Stop: 07/18/20 08:59 Last Admin: 07/04/20 08:24 Dose: 81 mg Documented by: Atorvastatin Calcium (Atorvastatin 20 Mg Tab) 20 mg PO HS DONNIE Stop: 07/17/20 21:59 Last Admin: 07/03/20 21:39 Dose: 20 mg Documented by: Benztropine Mesylate (Benztropine Mesylate 1 Mg Tab) 1 mg PO BID PRN PRN Reason: Muscle Spasm Stop: 07/17/20 20:59 Last Admin: 07/03/20 07:26 Dose: 1 mg Documented by: Bismuth Subsalicylate (Bismuth Subsalicylate Liqd 236 Ml) 15 ml PO PRN PRN PRN Reason: Loose Stool Stop: 07/16/20 22:51 Clozapine (Clozapine 25 Mg Tab) 25 mg PO BID DONNIE Stop: 08/02/20 08:59 Last Admin: 07/04/20 08:25 Dose: 25 mg Documented by: Fluoxetine HCl (Fluoxetine Hcl 10 Mg Cap) 10 mg PO QAM DONNIE Stop: 07/20/20 10:14 Last Admin: 07/04/20 08:25 Dose: 10 mg Documented by: Gabapentin (Gabapentin 300 Mg Cap) 300 mg PO TID DONNIE Stop: 08/03/20 13:59 Lamotrigine (Lamotrigine 25 Mg Tab) 150 mg PO HS DONNIE Stop: 08/03/20 21:59 Levothyroxine Sodium (Levothyroxine Sodium 100 Mcg Tablet) 100 mcg PO DAILYBB [facility] Stop: 07/18/20 07:59 Last Admin: 07/04/20 08:25 Dose: 100 mcg Documented by: Lorazepam (Lorazepam 0.5 Mg Tab) 0.5 mg PO TID PRN PRN Reason: anxiety Stop: 07/21/20 11:00 Last Admin: 07/02/20 16:33 Dose: 0.5 mg Documented by: Lorazepam (Lorazepam 1 Mg Tab) 1 mg PO HS [facility] Stop: 07/28/20 21:59 Last Admin: 07/03/20 21:39 Dose: 1 mg Documented by: Lorazepam (Lorazepam 0.5 Mg Tab) 0.5 mg PO BID@0900,1400 [facility] Stop: 07/28/20 13:59 Last Admin: 07/04/20 14:55 Dose: Not Given Documented by: Magnesium Hydroxide (Magnesium Hydroxide Susp 30 Ml Udc) 30 ml PO DAILY PRN PRN Reason: Constipation Stop: 07/16/20 22:51 Multivitamins (Multivitamin Tab) 1 tab PO QAM [facility] Stop: 08/01/20 08:59 Last Admin: 07/04/20 08:25 Dose: 1 tab Documented by: Perphenazine (Perphenazine 2 Mg Tablet) 4 mg PO BID PRN PRN Reason: paranoia Stop: 07/23/20 20:59 Last Admin: 07/02/20 01:14 Dose: 4 mg Documented by: Propranolol HCl (Propranolol Hcl 10 Mg Tab) 10 mg PO BID [facility] Stop: 07/17/20 20:59 Last Admin: 07/04/20 08:25 Dose: 10 mg Documented by: Sodium Chloride (Sodium Chloride 0.65% Na Soln 45 Ml ([place])) 1 - 2 sprays NA PRN PRN PRN Reason: Nasal Dryness/Congestion Stop: 07/16/20 22:51 Mental Health & Subst Abuse Tx Psychiatrist Name of Psychiatrist: Tyra Redmond Psychiatrist's Date of Appointment with Psychiatrist: 07/23/20 Time of Appointment with Psychiatrist: [id number] Psychiatric Appointment Comment: [id number] [facility] Auditing Coder Name of Auditing Coder: Joanne Zurita Post Discharge Appointments Primary Care Physician Name Of Family Doctor: Jorge Spears Primary Care Date of Appointment with PCP: 06/26/20 Time of Appointment with PCP: 10:20 a.m. Provider Appointment Comment: [facility] Neurologist Name of Neurologist: MARITZA Li Neurologist's Date of Appointment with Neurologist: 08/20/20 Time of Appointment with Neurologist: 10:30 a.m. Neurology Appointment Comment: [facility] [address] Contact Information Discharge Discharge Address: [address] [place] [address] [place] [address] (1) Psychosis Psychosis type: unspecified psychosis type Qualified Code(s): F29 - Unspecified psychosis not due to a substance or known physiological condition
[2020-07-04] MEDS: LORazepam 0.5 MG TAB PO PRN (17:19)
[2020-07-04] MEDS: ATORVASTATIN 20 MG TAB PO SCH (20:00)
[2020-07-04] MEDS: lamoTRIgine 25 MG TAB PO SCH (20:00)
[2020-07-04] MEDS: LORazepam 1 MG TAB PO SCH (20:04)
[2020-07-05] MEDS: LEVOTHYROXINE SODIUM 100 MCG TABLET PO SCH (07:31)
[2020-07-05] MEDS: cloZAPine 25 MG TAB PO SCH ×2 (09:08→19:47)
[2020-07-05] MEDS: MULTIVITAMIN TAB PO SCH (09:08)
[2020-07-05] MEDS: ASPIRIN 81 MG ECTAB PO SCH (09:08)
[2020-07-05] MEDS: PROPRANOLOL HCL 10 MG TAB PO SCH ×2 (09:08→19:47)
[2020-07-05] MEDS: FLUoxetine HCL 10 MG CAP PO SCH (09:09)
[2020-07-05] MEDS: GABAPENTIN 300 MG CAP PO SCH ×4 (09:09→19:48)
[2020-07-05] MEDS: LORazepam 0.5 MG TAB PO SCH ×3 (09:12→16:45)
--- NOTE | 2020-07-05 10:04 | Psychiatric Progress Note ---
Date of Service July 05, 2020 Impression / Recommendations Impression 60-year-old female with a history of bipolar disorder type I, tardive dyskinesia, and decompensation over the past month and a half with impaired memory, multiple falls, dysarthria, and hallucinations. She had multiple ER visits at the end of April for falls and physical weakness, and due to lithium toxicity her lithium was discontinued, and due to EPS and tardive dyskinesia, Latuda was discontinued, and she was started on lamotrigine. Although lamotrigine was started at the end of April, it was just increased to 50 mg daily 06/06, and Vraylar 1.5 mg added. Her son brought her into the ER due to increasing confusion, incontinence, falls, and hallucinations. We are continuing standard titration of lamotrigine and attempting to limit overuse of antipsychotic medications given the patient's significant TD. There does seem to be an aspect of delirium at play; however, patient has also decompensated psychiatrically and response to medication adjustments has been limited. Decision was made to titrate Vraylar to 3mg due to ongoing delusions/paranoia causing the patient significant distress on the unit. She was also started on scheduled lorazepam due to concern for possible catatonic presentation as patient had been agitated and very restless. Normal MRI reviewed from Apr, outpatient notes reviewed and patient had been referred to neurology. Case has been reviewed with our neurology team and formal consultation was completed for gait instability/multiple falls/tardive dyskinesia - appreciate recommendations provided. As it did not seem that patient was having a robust response to the Vraylar titration, decision was made to pursue a trial of clozapine to target delusions/paranoia while also attempting to reduce risk of worsening TD. Efforts have been made to order valbenazine (which required prior-authorization and specialty pharmacy order) to target significant TD - this has not yet arrived for us to order for use here in the hospital. Pt continues to be disori ented and disorganized to the point that she would not be able to reasonably care for her basic needs outside of the hospital and certainly could not tolerate the stress of community re-entry in her current condition. Because of what appear to be periodic reports of visual and olfactory hallucinations, typically not explained by bipolar disorder, and because of per symptoms of confusion, such as disorientation, something that is clearly not consistent with the patient's baseline, we want to rule out central nervous system pathology such as a space-occupying lesion. It is noted that she had MRI with contrast last summer, and an MRI without contrast in April 2020. However, because of the above findings we believe that we need to do an MRI with contrast to help us rule out what really does appear to be a certain amount of an underlying organic overlay the patient's psychiatric symptoms. It is also possible that the patient is experiencing complex partial seizures, because her condition does appear to wax and wane to some extent. 07/05 Reviewed. (1) Psychosis: 06/17 -complicated case, primary diagnosis unclear to me at this point. 2- month history of frequent falls, weakness, and abnormal involuntary movements. Hallucinations with fairly acute onset over the past couple of weeks, as well as memory impairment and significant disorganization on exam today. Minimal evidence of mood episode on my exam, but her outpatient clinician noted symptoms of depression at her last visit a week and a half ago. It would be very helpful to be able to monitor her symptoms around the clock. Differential includes delirium, mood related psychosis, cognitive disorder, or primary thought disorder. -Lamotrigine started a little over a month ago, and just increased to 50 mg daily a week and a half ago. We will continue the standard titration. Vraylar just started about 1 and half weeks ago, will continue 1.5 mg daily. 2 - Outpatient records reviewed and care coordinated as above. - Continue Vraylar 1.5mg daily. Fasting labs were checked 11/2019: TG 153, Hgb A1C 5.8% (est ave glucose 120). Will hold off on titrating Vraylar due to her tardive dyskinesia and fact that symptoms are improving. - AIMS today is 10; 3 for tongue movements, 2 for foot movements, 3 for overall severity, and 2 for patient awareness/mild distress. - Patient is slightly more organized in her thinking and speech today, oriented to self and place, but not time. Still confused, unable to find her room, requiring frequent redirection. She is demonstrating paranoia, sometimes directed at staff, but responded well to reassurance, and focus on her distressing emotions. 2/ - Continue medication regimen as above, lamotrigine increasing to 100mg this evening. - Pt continues to be rather confused, but also paranoid. She continues to suggest that staff is talking about her, but has more recently been convinced that several family members are being locked in the various offices on the unit. - Continue attempt to limit antipsychotic medications as able, patient continues to respond well to redirection and reassurance from staff. 06/20 -The patient remains confused and floridly psychotic. Her delusions are mood congruent with depression. For example, today she tells me that she is to be punished because she has "killed [her] mother and father, and everyone in the family." She is also tearful and sobs through much of today's encounter. She also is experiencing auditory hallucinations that are consistent with the cont ent of the delusions. -She appears not to be oriented to month or year. However, assessment of cognitive functioning is somewhat difficult because the patient is largely mute and is very quickly distracted by what appears to be auditory hallucinations. -The patient is able to tell us that her diagnosis is bipolar disorder and that she is in the hospital being treated for a mental illness. Although she claims to not know what medication she is currently taking, she was able to answer several questions regarding what medication she has or has not taken in the past. Today, reports that she has taken Prozac in the past and that has helped when she is depressed, at least to some extent. 06/20--reviewed past med trials, hesitant to use Haldol or thorazine given her TD and fall risk with latter. She refuses anyway. Did pill counts to confirm started date of Vraylar >2 weeks ago, will increase to 3 mg. Benzos are often helpful for catatonic features but need to watch gait. Start Ativan 0.5 mg TID prn and evaluate response/gait. d/c Sinequan prn as high dose and now on Prozac. d/c Vistaril given anticholinergic and also on Cogentin. Consider Trilafon if no immediate improvement on higher dose of Vraylar. 06/21--improved slightly today, will add standing order Ativan as tolerating 1 mg BID (am and evening meal) and decrease Restoril given am confusion. It is still possible that anticholinergic effects of Vistaril and ?Cogentin contributing to confusion. Will reassess Cogentin dosing tomorrow. 2/7--change Cogentin to prn, offer Trilafon BID prn to assess tolerability for additional coverage during Vraylar trial. D/C Restoril after tonight's dose. This will limit polypharmacy, case reviewed with Dr. Marks due to complexity and reconfirm impression of ongoing slow improvements. Will seek input from neurology on additional assessment here for falls and weakness with incontinence though gait and organization improving. Patient is limited historian/limited cooperation with neuro exam given psychosis. 06/24 -Multiple medication changes over the past few days, including addition of daytime lorazepam 1 mg twice daily, taper off of temazepam, increase of cariprazine to 3 mg daily, discontinuing scheduled benztropine, and addition of perphenazine 4 mg twice daily as needed. She remains on lamotrigine 100 mg daily (can be increased to 200 mg daily on 07/03/2020, per standard titration protocol). She received 4 mg perphenazine x 2 yesterday, and 1 so far today. Psychosis continues, with auditory hallucinations and paranoia/delusions of persecution. Given that we are trying to minimize antipsychotic burden due to her EPS, I will increase her lorazepam to 1 mg 3 times daily to target anxious distress and catatonia, but will need to watch for sedation and impaired gait. AIMS today is 12; 4 for tongue movements, 3 for severity, 2 for incapacitation, and 3 for patient awareness. 06/25 - Continue current medication regimen - patient does have reported moments confusion and visual hallucinations. There does seem to be a component of delirium superimposed on patient's psychosis, but unlikely to explain all of her current presentation. - During conversation today, patient is confused but not verbalizing delusions or paranoia - Neurology consult as outlined below 06/26 - Continue current medication regimen - will attempt to acquire valbenazine to target TD - Pt continues to have waxing and waning confusion, but symptoms of clinton psychosis do seem to be steadily improving - Staff continue to report concerns for gait instability - patient on formal 1:1 after sustaining minor falls 2 days ago. 06/27 -Continue current medication regimen. -The patient is continued to have waxing and waning confusion, but overall her periods of confusion seem to be less frequent and less prominent. -Our attempt to obtain authorization for coverage of valbenazine have been unsuccessful. We are currently appealing the decision based on the fact that patient's tardive dyskinesia is so severe that she has trouble ingesting food and communicating orally. -Patient has been taken off one-to-one, but she is being closely monitored by staff. The patient has demonstrated that she is being very careful when ambulating. 06/28 - Tapering lorazepam - 0.5mg at 0900 and 1400, and maintaining 1mg dose qHS. Continue Vraylar, Lamictal, and Prozac. - Pt continues to have waxing and waning of confusion - intermittently requiring staff redirection - Pt stating today that she just learned her father , and believes he is being buried today. Still intermittently believes her family is hidden around the unit. 06/29 - 07/01 - Continue current medication regimen - patient still having episodes of confusion, visual hallucinations, delusions, and paranoia. - Pt will likely require additional time to stabilize, though continues to have slow improvement. 07/02 - Will discontinue Vraylar and initiate a titration of clozapine - patient informed of common side effects and need for weekly blood monitoring and agreed to the medication change. Titration of clozapine has been ordered up to a dose of 150mg - this can be adjusted based on patient's ability to tolerate the new medication. - Clozapine [facility] enrollment ID: [id number] - Patient's dose of lamotrigine can also be increased to 150mg with tomorrow evening's dose - Pt continues to be emotionally labile with ongoing delusions/paranoia and frequent episodes of confusion. - She did report pain with urination to staff yesterday, stating it felt like previous UTI's she has experienced - UA completed, still not demonstrating concern for UTI. 07/03 - Clozapine dosing adjusted to allow for BID administration of the medication. Pt will receive 25mg BID today, dosing can continue to be titrated as tolerated. - Titrating lamotrigine to 150mg this evening - Pt continues to be emotionally labile with ongoing delusions/paranoia and frequent episodes of confusion. 07/04 -The patient has tolerated lamotrigine at 150 mg. -We will increase her dose of clozapine from 25 mg twice a day to 50 mg twice a day, beginning this evening. -The patient underwent a MRI with contrast today. This imaging study was noncontributory and was read as being essentially within normal limits. -Patient has been less emotionally labile today, and is generally pleasant on approach. However, she remains delusional and, as noted above, has been reporting that she is "seeing" the remains of a deer in her hospital bed room, and, further, she insists that she can smell the putrid smell of the rotting animal. Given that her MRI with contrast today was within normal limits we are suspecting that she may be experiencing complex partial seizures. For that reason, her dose of gabapentin is being increased to a dose of gabapentin 300 mg 3 times a day. 07/05--reviewed, Clozaril and gabapentin increased last night, missed a dose of gabapentin. (2) Bipolar 1 disorder: 06/17 - Historical diagnosis, previous admission for alison. Recent medication adjustments made including discontinuing lithium and starting Vraylar and lamotrigine. Continue home meds for now while gathering additional information, spoke with Tyra Higgins to coordinate care. - Referring for [facility] through [facility]. 06/18 -patient appears anxious and depressed today, son expresses concerns that she has been more depressed lately, which he attributes to her loss of independence and marital discord. Continue titration of lamotrigine, increase to 100mg daily tomorrow. 06/19 - Lamotrigine to increase to 100mg this evening - continue standard titration schedule to target mood concerns - Patient continues to present as primarily depressed and anxiety, frequently tearful and distressed on the unit - though much of this is likely related to a reaction to current psychotic symptoms. 06/20 -The patient continues to appear anxious and depressed. -She appears to be tolerating the titration of lamotrigine. -Sleep remains suboptimal. Appetite remains suboptimal. -I will offer the patient a trial of fluoxetine 10 mg daily with caution, given her diagnosis of bipolar disorder. She is currently taking 2 mood stabilizing agents. 06/21 Reviewed. 06/26 - Treatment plan as outlined under "Psychosis" 06/27 -See above. 07/03 - Titrating lamotrigine to 150mg this evening. 07/04 -We also increasing gabapentin to 300 mg 3 times a day, primarily to address possible complex partial seizures, but also because it may provide some additional mood stabilization.) -Clozapine has been increased to a dose of 50 mg twice a day, starting this evening. -Some of the patient's presenting symptoms, such as apparent olfactory and visual hallucinations are not generally attributable to a diagnosis of bipolar disorder and we are continuing to investigate. 07/05--reviewed. (3) Tardive dyskinesia: 06/17 -monitor abnormal involuntary movements, consider trial of Ingrezza, although I believe it is nonformulary -Consider neurology consult for assistance with increase in falls, weakness, and abnormal movements -she was apparently referred to [facility] 4 months ago, and her appointment is sometime this month. 06/18 -patient's gait has been steady since admission, without falls. She is not demonstrating obvious signs of weakness here, is ambulating, getting in and out of chairs, and performing ADLs without difficulty. She reportedly has an outpatient neurology appointment next week, will clarify that and may not need inpatient consultation 06/21--reviewed. 06/24 -case was reviewed with neurology over the weekend, and they did not suggest any further inpatient work-up of her weakness, recurrent falls, gait difficulties, given that she had a normal brain MRI and would not currently be able to tolerate an LP. Her outpatient neurology appointment has been rescheduled for 08/20/[address] Li. 06/25 - Will request formal neurology consultation at this point, patient has had 3 minor falls during her stay with two occurring yesterday - It is likely that there is a component of delirium at play presently, but there are outpatient reports that suggest these gait disturbances and weakness was occurring prior to her medication changes/psychiatric admission - Case had been reviewed with our neurology service, would appreciate any input from formal examination and evaluation. Consult placed for "unsteady gait, multiple falls, and tardive dyskinesia" - CMP and UA re-ordered given waxing and waning confusion - pt did have UA prior to admission that appeared to be contaminated. Pt does admit to urinary frequency, but says this is not new. 06/26 - Appreciate recommendations offered by our neurology service. - They also recommend initiating valbenazine 40mg for TD symptoms - Additional labs were also recommended: will order A1c, TSH reflex free T4, vit B12 - Recommendation for outpatient neuropsychological testing referral 06/27 -Today, the patient reports that she is pleased to tell us that she believes that her tardive dyskinesia symptoms have improved somewhat, possibly after having taken [Vraylar] consistently this week. -As noted above, coverage authorization for valbenazine 40 mg daily for her severe tardive dyskinesia is inexplicably been denied, and we are appealing the decision. The decision is based on the severity of the patient's symptoms and the degree to which the adversely affect her ability to eat and communicate verbally. 06/28 - Received notification that Ingrezza 40mg has been approved - attempting to determine cost for use and specialty pharmacy that can provide the prescription. 07/01 - Ingrezza 40mg has reportedly been ordered and is being mailed to the patient's home. Family to bring in the prescription once it arrives. 07/04 -We are still awaiting receipt of Ingrezza. The patient feels that her tardive dyskinesia has improved and today she says as she did last week that she is able to eat better. -The severity of the patient's abnormal involuntary movements does seem to have improved somewhat. 07/05--reviewed. Risk Factors Assessment Male: No : Yes Health Problems: Yes Mental Health Diagnoses: Yes Substance Use Disorders: No Previous Psychiatric Hospitalization: Yes Hopelessness: No Smoker: No Protective Factors Assessment : Yes Responsible for Young Children: No Employed: No Supportive Family: Yes Good Rapport with Provider: Yes Interval History Identifying Information ALVARO FRAIRE is a 60-year-old F who currently lives in [place] with her , has a history of bipolar disorder type I, and was admitted on 06/16/20 22:11 on a 201 voluntary commitment for psychosis. Reviewed. Chief Complaint ongoing disorganization. Review of Systems Sleep Information Total Hours of Sleep: 8 Sleep Comments: pt appeared to only sleep 1/2 hr, but appeared to sleep 2.5 hrs during evening shift. pt redirectable back to her room, stating she is "seeing snakes", but pt informed of no snakes visible. pt on q-15 minute checks Meal Information Percent Meal Consumed - Breakfast: 25 Percent Meal Consumed - Lunch: 75 Percent Meal Consumed - Dinner: 25 Nutrition Comment: . Subjective Subjective Patient was seen & assessed and interval progress reviewed with nursing and social work. Period of agitation early evening after woke up after MRI, had slept through 4 pm meds initially, required additional prn Ativan for restlessness, irritability, yelling, and removing clothes. Had been found on floor incontinent. Physical Exam Psychiatric Orientation: alert Apperance: + disheveled Eye Contact: + fair eye contact TD better articulation Affect: + depressed affect Mood: + depressed mood Thought Process: + tangential thought process Thought Content: + preoccupation, + paranoid, + delusions (somatic) and + persecution Suicidal Thoughts: denies suicidal thoughts Homicidal Thoughts: denies homicidal thoughts Hallucinations: + visual hallucinations; no auditory hallucinations Cognition: + attention not intact Insight: + impaired insight Judgement: + impaired judgement Vital Signs (Past 24 Hours) Last Vital Signs Temp 37.1 C 07/05/20 06:00 Pulse 92 H 07/05/20 06:00 Resp 17 07/05/20 06:00 BP 141/97 H 07/05/20 06:00 Pulse Ox 99 06/16/20 23:03 Results & Data ([facility]) Current Inpatient Medications Current Inpatient Medications: Current Inpatient Medications Acetaminophen (Acetaminophen 325 Mg Tab) 650 mg PO Q4H PRN PRN Reason: Headache or Minor Fever Stop: 07/16/20 22:51 Last Admin: 06/26/20 08:54 Dose: 650 mg Documented by: Al Hydrox/Mg Hydrox/Simethicone (Aluminum/Magnesium Susp 30 Ml Udc) 30 ml PO Q4H PRN PRN Reason: GI Upset Stop: 07/16/20 22:51 Aspirin (Aspirin 81 Mg Ectab) 81 mg PO DAILY [facility] Stop: 07/18/20 08:59 Last Admin: 07/05/20 09:08 Dose: 81 mg Documented by: Atorvastatin Calcium (Atorvastatin 20 Mg Tab) 20 mg PO HS [facility] Stop: 07/17/20 21:59 Last Admin: 07/04/20 20:00 Dose: 20 mg Documented by: Benztropine Mesylate (Benztropine Mesylate 1 Mg Tab) 1 mg PO BID PRN PRN Reason: Muscle Spasm Stop: 07/17/20 20:59 Last Admin: 07/03/20 07:26 Dose: 1 mg Documented by: Bismuth Subsalicylate (Bismuth Subsalicylate Liqd 236 Ml) 15 ml PO PRN PRN PRN Reason: Loose Stool Stop: 07/16/20 22:51 Clozapine (Clozapine 25 Mg Tab) 50 mg PO BID DONNIE Stop: 08/03/20 20:59 Last Admin: 07/05/20 09:08 Dose: 50 mg Documented by: Fluoxetine HCl (Fluoxetine Hcl 10 Mg Cap) 10 mg PO QAM [facility] Stop: 07/20/20 10:14 Last Admin: 07/05/20 09:09 Dose: 10 mg Documented by: Gabapentin (Gabapentin 300 Mg Cap) 300 mg PO TID [facility] Stop: 08/03/20 13:59 Last Admin: 07/05/20 09:09 Dose: 300 mg Documented by: Lamotrigine (Lamotrigine 25 Mg Tab) 150 mg PO [facility] Stop: 08/03/20 21:59 Last Admin: 07/04/20 20:00 Dose: 150 mg Documented by: Levothyroxine Sodium (Levothyroxine Sodium 100 Mcg Tablet) [facility] Stop: 07/18/20 07:59 Last Admin: 07/05/20 07:31 Dose: 100 mcg Documented by: Lorazepam (Lorazepam 0.5 Mg Tab) 0.5 mg PO TID PRN PRN Reason: anxiety Stop: 07/21/20 11:00 Last Admin: 07/04/20 17:19 Dose: 0.5 mg Documented by: Lorazepam (Lorazepam 1 Mg Tab) 1 mg PO [facility] Stop: 07/28/20 21:59 Last Admin: 07/04/20 20:04 Dose: 1 mg Documented by: Lorazepam (Lorazepam 0.5 Mg Tab) 0.5 mg PO BID@0900,1400 [facility] Stop: 07/28/20 13:59 Last Admin: 07/05/20 09:12 Dose: 0.5 mg Documented by: Magnesium Hydroxide (Magnesium Hydroxide Susp 30 Ml Udc) 30 ml PO DAILY PRN PRN Reason: Constipation Stop: 07/16/20 22:51 Multivitamins (Multivitamin Tab) [facility] Stop: 08/01/20 08:59 Last Admin: 07/05/20 09:08 Dose: 1 tab Documented by: Perphenazine (Perphenazine 2 Mg Tablet) 4 mg PO BID PRN PRN Reason: paranoia Stop: 07/23/20 20:59 Last Admin: 07/02/20 01:14 Dose: 4 mg Documented by: Propranolol HCl (Propranolol Hcl 10 Mg Tab) 10 mg PO BID [facility] Stop: 07/17/20 20:59 Last Admin: 07/05/20 09:08 Dose: 10 mg Documented by: Sodium Chloride (Sodium Chloride 0.65% Na Soln 45 Ml ([place])) 1 - 2 sprays NA PRN PRN PRN Reason: Nasal Dryness/Congestion Stop: 07/16/20 22:51 Mental Health & Subst Abuse Tx Psychiatrist Name of Psychiatrist: Tyra Redmond Psychiatrist's Date of Appointment with Psychiatrist: 07/23/20 Time of Appointment with Psychiatrist: [id number] Psychiatric Appointment Comment: [id number] [facility] Heavy Mobile Equipment Repairer Name of Heavy Mobile Equipment Repairer: Joanne Zurita Post Discharge Appointments Primary Care Physician Name Of Family Doctor: Jorge Spears Primary [facility] Date of Appointment with PCP: 06/26/20 Time of Appointment with PCP: 10:20 a.m. Provider Appointment Comment: [phone] [facility] Neurologist Name of Neurologist: MARITZA Li Neurologist's Date of Appointment with Neurologist: 08/20/20 Time of Appointment with Neurologist: 10:30 a.m. Neurology Appointment Comment: [facility] Contact Information Discharge Discharge Address: [address] [place] [address] [place] [address] (1) Psychosis Psychosis type: unspecified psychosis type Qualified Code(s): F29 - Unspecified psychosis not due to a substance or known physiological condition
[2020-07-05] MEDS: LORazepam 1 MG TAB PO SCH (19:48)
[2020-07-05] MEDS: lamoTRIgine 25 MG TAB PO SCH (19:48)
[2020-07-05] MEDS: ATORVASTATIN 20 MG TAB PO SCH (19:49)
[2020-07-06] MEDS: ACETAMINOPHEN 325 MG TAB PO PRN (06:57)
[2020-07-06] MEDS: LEVOTHYROXINE SODIUM 100 MCG TABLET PO SCH (08:18)
[2020-07-06] MEDS: LORazepam 0.5 MG TAB PO SCH ×3 (08:27→20:19)
[2020-07-06] MEDS: cloZAPine 25 MG TAB PO SCH ×2 (08:27→20:20)
[2020-07-06] MEDS: ASPIRIN 81 MG ECTAB PO SCH (08:28)
[2020-07-06] MEDS: PROPRANOLOL HCL 10 MG TAB PO SCH ×2 (08:28→20:19)
[2020-07-06] MEDS: GABAPENTIN 300 MG CAP PO SCH ×3 (08:29→20:19)
[2020-07-06] MEDS: FLUoxetine HCL 10 MG CAP PO SCH (08:29)
[2020-07-06] MEDS: MULTIVITAMIN TAB PO SCH (08:29)
--- NOTE | 2020-07-06 12:21 | Psychiatric Progress Note ---
Date of Service July 06, 2020 Impression / Recommendations Impression 60-year-old female with a history of bipolar disorder type I, tardive dyskinesia, and decompensation over the past month and a half with impaired memory, multiple falls, dysarthria, and hallucinations. She had multiple ER visits at the end of April for falls and physical weakness, and due to lithium toxicity her lithium was discontinued, and due to EPS and tardive dyskinesia, Latuda was discontinued, and she was started on lamotrigine. Although lamotrigine was started at the end of April, it was just increased to 50 mg daily 06/06, and Vraylar 1.5 mg added. Her son brought her into the ER due to increasing confusion, incontinence, falls, and hallucinations. We are continuing standard titration of lamotrigine and attempting to limit overuse of antipsychotic medications given the patient's significant TD. There does seem to be an aspect of delirium at play; however, patient has also decompensated psychiatrically and response to medication adjustments has been limited. Decision was made to titrate Vraylar to 3mg due to ongoing delusions/paranoia causing the patient significant distress on the unit. She was also started on scheduled lorazepam due to concern for possible catatonic presentation as patient had been agitated and very restless. Normal MRI reviewed from Apr, outpatient notes reviewed and patient had been referred to neurology. Case has been reviewed with our neurology team and formal consultation was completed for gait instability/multiple falls/tardive dyskinesia - appreciate recommendations provided. As it did not seem that patient was having a robust response to the Vraylar titration, decision was made to pursue a trial of clozapine to target delusions/paranoia while also attempting to reduce risk of worsening TD. Efforts have been made to order valbenazine (which required prior-authorization and specialty pharmacy order) to target significant TD - this has not yet arrived for us to order for use here in the hospital. Pt continues to be disori ented and disorganized to the point that she would not be able to reasonably care for her basic needs outside of the hospital and certainly could not tolerate the stress of community re-entry in her current condition. Because of what appear to be periodic reports of visual and olfactory hallucinations, typically not explained by bipolar disorder, and because of per symptoms of confusion, such as disorientation, something that is clearly not consistent with the patient's baseline, we want to rule out central nervous system pathology such as a space-occupying lesion. It is noted that she had MRI with contrast last summer, and an MRI without contrast in April 2020. However, because of the above findings we believe that we need to do an MRI with contrast to help us rule out what really does appear to be a certain amount of an underlying organic overlay the patient's psychiatric symptoms. It is also possible that the patient is experiencing complex partial seizures, because her condition does appear to wax and wane to some extent. 07/05 Reviewed. 07/06 improving but sedated, limited self-care (1) Psychosis: 06/17 -complicated case, primary diagnosis unclear to me at this point. 2- month history of frequent falls, weakness, and abnormal involuntary movements. Hallucinations with fairly acute onset over the past couple of weeks, as well as memory impairment and significant disorganization on exam today. Minimal evidence of mood episode on my exam, but her outpatient clinician noted symptoms of depression at her last visit a week and a half ago. It would be very helpful to be able to monitor her symptoms around the clock. Differential includes delirium, mood related psychosis, cognitive disorder, or primary thought disorder. -Lamotrigine started a little over a month ago, and just increased to 50 mg daily a week and a half ago. We will continue the standard titration. Vraylar just started about 1 and half weeks ago, will continue 1.5 mg daily. 06/18 - Outpatient records reviewed and care coordinated as above. - Continue Vraylar 1.5mg daily. Fasting labs were checked 11/2019: TG 153, Hgb A1C 5.8% (est ave glucose 120). Will hold off on titrating Vraylar due to her tardive dyskinesia and fact that symptoms are improving. - AIMS today is 10; 3 for tongue movements, 2 for foot movements, 3 for overall severity, and 2 for patient awareness/mild distress. - Patient is slightly more organized in her thinking and speech today, oriented to self and place, but not time. Still confused, unable to find her room, requiring frequent redirection. She is demonstrating paranoia, sometimes directed at staff, but responded well to reassurance, and focus on her distressing emotions. 2/ - Continue medication regimen as above, lamotrigine increasing to 100mg this evening. - Pt continues to be rather confused, but also paranoid. She continues to suggest that staff is talking about her, but has more recently been convinced that several family members are being locked in the various offices on the unit. - Continue attempt to limit antipsychotic medications as able, patient continues to respond well to redirection and reassurance from staff. 06/20 -The patient remains confused and floridly psychotic. Her delusions are mood congruent with depression. For example, today she tells me that she is to be punished because she has "killed [her] mother and father, and everyone in the family." She is also tearful and sobs through much of today's encounter. She also is experiencing auditory hallucinations that are consistent with the content of the delusions. -She appears not to be oriented to month or year. However, assessment of cognitive functioning is somewhat difficult because the patient is largely mute and is very quickly distracted by what appears to be auditory hallucinations. -The patient is able to tell us that her diagnosis is bipolar disorder and that she is in the hospital being treated for a mental illness. Although she claims to not know what medication she is currently taking, she was able to answer several questions regarding what medication she has or has not taken in the past. Today, reports that she has taken Prozac in the past and that has helped when she is depressed, at least to some extent. 06/20--reviewed past med trials, hesitant to use Haldol or thorazine given her TD and fall risk with latter. She refuses anyway. Did pill counts to confirm started date of Vraylar >2 weeks ago, will increase to 3 mg. Benzos are often helpful for catatonic features but need to watch gait. Start Ativan 0.5 mg TID prn and evaluate response/gait. d/c Sinequan prn as high dose and now on Prozac. d/c Vistaril given anticholinergic and also on Cogentin. Consider Trilafon if no immediate improvement on higher dose of Vraylar. 06/21--improved slightly today, will add standing order Ativan as tolerating 1 mg BID (am and evening meal) and decrease Restoril given am confusion. It is still possible that anticholinergic effects of Vistaril and ?Cogentin contributing to confusion. Will reassess Cogentin dosing tomorrow. 2/7--change Cogentin to prn, offer Trilafon BID prn to assess tolerability for additional coverage during Vraylar trial. D/C Restoril after tonight's dose. This will limit polypharmacy, case reviewed with Dr. Marks due to complexity and reconfirm impression of ongoing slow improvements. Will seek input from neurology on additional assessment here for falls and weakness with incontinence though gait and organization improving. Patient is limited historian/limited cooperation with neuro exam given psychosis. 06/24 -Multiple medication changes over the past few days, including addition of daytime lorazepam 1 mg twice daily, taper off of temazepam, increase of cariprazine to 3 mg daily, discontinuing scheduled benztropine, and addition of perphenazine 4 mg twice daily as needed. She remains on lamotrigine 100 mg daily (can be increased to 200 mg daily on 07/03/2020, per standard titration protocol). She received 4 mg perphenazine x 2 yesterday, and 1 so far today. Psychosis continues, with auditory hallucinations and paranoia/delusions of persecution. Given that we are trying to minimize antipsychotic burden due to her EPS, I will increase her lorazepam to 1 mg 3 times daily to target anxious distress and catatonia, but will need to watch for sedation and impaired gait. AIMS today is 12; 4 for tongue movements, 3 for severity, 2 for incapacitation, and 3 for patient awareness. 06/25 - Continue current medication regimen - patient does have reported moments confusion and visual hallucinations. There does seem to be a component of delirium superimposed on patient's psychosis, but unlikely to explain all of her current presentation. - During conversation today, patient is confused but not verbalizing delusions or paranoia - Neurology consult as outlined below 06/26 - Continue current medication regimen - will attempt to acquire valbenazine to target TD - Pt continues to have waxing and waning confusion, but symptoms of clinton psychosis do seem to be steadily improving - Staff continue to report concerns for gait instability - patient on formal 1:1 after sustaining minor falls 2 days ago. 06/27 -Continue current medication regimen. -The patient is continued to have waxing and waning confusion, but overall her periods of confusion seem to be less frequent and less prominent. -Our attempt to obtain authorization for coverage of valbenazine have been unsuccessful. We are currently appealing the decision based on the fact that patient's tardive dyskinesia is so severe that she has trouble ingesting food and communicating orally. -Patient has been taken off one-to-one, but she is being closely monitored by staff. The patient has demonstrated that she is being very careful when ambulating. 06/28 - Tapering lorazepam - 0.5mg at 0900 and 1400, and maintaining 1mg dose qHS. Continue Vraylar, Lamictal, and Prozac. - Pt continues to have waxing and waning of confusion - intermittently requiring staff redirection - Pt stating today that she just learned her father , and believes he is being buried today. Still intermittently believes her family is hidden around the unit. 06/29 - 07/01 - Continue current medication regimen - patient still having episodes of confusion, visual hallucinations, delusions, and paranoia. - Pt will likely require additional time to stabilize, though continues to have slow improvement. 07/02 - Will discontinue Vraylar and initiate a titration of clozapine - patient informed of common side effects and need for weekly blood monitoring and agreed to the medication change. Titration of clozapine has been ordered up to a dose of 150mg - this can be adjusted based on patient's ability to tolerate the new medication. - Clozapine [facility] enrollment ID: [id number] - Patient's dose of lamotrigine can also be increased to 150mg with tomorrow evening's dose - Pt continues to be emotionally labile with ongoing delusions/paranoia and frequent episodes of confusion. - She did report pain with urination to staff yesterday, stating it felt like previous UTI's she has experienced - UA completed, still not demonstrating concern for UTI. 07/03 - Clozapine dosing adjusted to allow for BID administration of the medication. Pt will receive 25mg BID today, dosing can continue to be titrated as tolerated. - Titrating lamotrigine to 150mg this evening - Pt continues to be emotionally labile with ongoing delusions/paranoia and frequent episodes of confusion. 07/04 -The patient has tolerated lamotrigine at 150 mg. -We will increase her dose of clozapine from 25 mg twice a day to 50 mg twice a day, beginning this evening. -The patient underwent a MRI with contrast today. This imaging study was noncontributory and was read as being essentially within normal limits. -Patient has been less emotionally labile today, and is generally pleasant on approach. However, she remains delusional and, as noted above, has been reporting that she is "seeing" the remains of a deer in her hospital bed room, and, further, she insists that she can smell the putrid smell of the rotting animal. Given that her MRI with contrast today was within normal limits we are suspecting that she may be experiencing complex partial seizures. For that reason, her dose of gabapentin is being increased to a dose of gabapentin 300 mg 3 times a day. 07/05--reviewed, Clozaril and gabapentin increased last night, missed a dose of gabapentin. 07/06--shift dosing of Clozaril to 25 mg po qam and 75 mg po qhs due to sedation, decrease hs Ativan to 0.5 mg as sleep improving and potential combined sedation with Clozaril. Will reassess daytime Ativan dosing tomorrow on lower am dose of Clozaril. (2) Bipolar 1 disorder: 06/17 - Historical diagnosis, previous admission for alison. Recent medication adjustments made including discontinuing lithium and starting Vraylar and lamotrigine. Continue home meds for now while gathering additional information, spoke with Tyra Higgins to coordinate care. - Referring for BCM through [facility]. 06/18 -patient appears anxious and depressed today, son expresses concerns that she has been more depressed lately, which he attributes to her loss of independence and marital discord. Continue titration of lamotrigine, increase to 100mg daily tomorrow. 06/19 - Lamotrigine to increase to 100mg this evening - continue standard titration schedule to target mood concerns - Patient continues to present as primarily depressed and anxiety, frequently tearful and distressed on the unit - though much of this is likely related to a reaction to current psychotic symptoms. 06/20 -The patient continues to appear anxious and depressed. -She appears to be tolerating the titration of lamotrigine. -Sleep remains suboptimal. Appetite remains suboptimal. -I will offer the patient a trial of fluoxetine 10 mg daily with caution, given her diagnosis of bipolar disorder. She is currently taking 2 mood stabilizing agents. 06/21 Reviewed. 06/26 - Treatment plan as outlined under "Psychosis" 06/27 -See above. 07/03 - Titrating lamotrigine to 150mg this evening. 07/04 -We also increasing gabapentin to 300 mg 3 times a day, primarily to address possible complex partial seizures, but also because it may provide some additional mood stabilization.) -Clozapine has been increased to a dose of 50 mg twice a day, starting this evening. -Some of the patient's presenting symptoms, such as apparent olfactory and visual hallucinations are not generally attributable to a diagnosis of bipolar disorder and we are continuing to investigate. 07/05--reviewed. (3) Tardive dyskinesia: 06/17 -monitor abnormal involuntary movements, consider trial of Ingrezza, although I believe it is nonformulary -Consider neurology consult for assistance with increase in falls, weakness, and abnormal movements -she was apparently referred to [facility] 4 months ago, and her appointment is sometime this month. 06/18 -patient's gait has been steady since admission, without falls. She is not demonstrating obvious signs of weakness here, is ambulating, getting in and out of chairs, and performing ADLs without difficulty. She reportedly has an outpatient neurology appointment next week, will clarify that and may not need inpatient consultation 06/21--reviewed. 06/24 -case was reviewed with neurology over the weekend, and they did not suggest any further inpatient work-up of her weakness, recurrent falls, gait difficulties, given that she had a normal brain MRI and would not currently be able to tolerate an LP. Her outpatient neurology appointment has been damian eduled for 08/20/[address] Li. 06/25 - Will request formal neurology consultation at this point, patient has had 3 minor falls during her stay with two occurring yesterday - It is likely that there is a component of delirium at play presently, but there are outpatient reports that suggest these gait disturbances and weakness was occurring prior to her medication changes/psychiatric admission - Case had been reviewed with our neurology service, would appreciate any input from formal examination and evaluation. Consult placed for "unsteady gait, multiple falls, and tardive dyskinesia" - CMP and UA re-ordered given waxing and waning confusion - pt did have UA prior to admission that appeared to be contaminated. Pt does admit to urinary frequency, but says this is not new. 06/26 - Appreciate recommendations offered by our neurology service. - They also recommend initiating valbenazine 40mg for TD symptoms - Additional labs were also recommended: will order A1c, TSH reflex free T4, vit B12 - Recommendation for outpatient neuropsychological testing referral 06/27 -Today, the patient reports that she is pleased to tell us that she believes that her tardive dyskinesia symptoms have improved somewhat, possibly after having taken [Vraylar] consistently this week. -As noted above, coverage authorization for valbenazine 40 mg daily for her severe tardive dyskinesia is inexplicably been denied, and we are appealing the decision. The decision is based on the severity of the patient's symptoms and the degree to which the adversely affect her ability to eat and communicate ve rbally. 06/28 - Received notification that Ingrezza 40mg has been approved - attempting to determine cost for use and specialty pharmacy that can provide the prescription. 07/01 - Ingrezza 40mg has reportedly been ordered and is being mailed to the patient's home. Family to bring in the prescription once it arrives. 07/04 -We are still awaiting receipt of Ingrezza. The patient feels that her tardive dyskinesia has improved and today she says as she did last week that she is able to eat better. -The severity of the patient's abnormal involuntary movements does seem to have improved somewhat. 07/05--reviewed. Risk Factors Assessment Male: No : Yes Health Problems: Yes Mental Health Diagnoses: Yes Substance Use Disorders: No Previous Psychiatric Hospitalization: Yes Hopelessness: No Smoker: No Protective Factors Assessment : Yes Responsible for Young Children: No Employed: No Supportive Family: Yes Good Rapport with Provider: Yes Interval History Identifying Information ALVARO FRAIRE is a 60-year-old F who currently lives in [place] with her , has a history of bipolar disorder type I, and was admitted on 06/16/20 22:11 on a 201 voluntary commitment for psychosis. Reviewed. Chief Complaint "I miss my kids and my ". Review of Systems Sleep Information Total Hours of Sleep: 8.5 Meal Information Percent Meal Consumed - Breakfast: 100 Percent Meal Consumed - Lunch: 0 Percent Meal Consumed - Dinner: 100 Subjective Subjective Patient was seen & assessed and interval progress reviewed with nursing and social work. no acute issues overnight. Her sleep and TD continue to show some improvements. She appears sedated following am Clozaril. She is thankful for sleep. Her speech is soft and difficult to understand at times but she denies seeing things or paranoia about someone trying to shoot her but continues to approach staff for reassurance around this. She requires redirection around self care. Physical Exam Psychiatric very tired appearing Apperance: + disheveled Eye Contact: + poor eye contact oral movements poorly articulated Affect: + blunted affect Mood: + depressed mood Thought Process: + tangential thought process and + concrete thought process Thought Content: + delusions Suicidal Thoughts: denies suicidal thoughts Homicidal Thoughts: denies homicidal thoughts Hallucinations: no auditory hallucinations and no visual hallucinations Insight: + poor insight Judgement: + poor judgement Vital Signs (Past 24 Hours) Last Vital Signs Temp 37 C 07/05/20 20:47 Pulse 92 H 07/05/20 06:00 Resp 17 07/06/20 06:31 BP 145/93 H 07/06/20 06:31 Pulse Ox 99 06/16/20 23:03 Results & Data ([facility]) Current Inpatient Medications Current Inpatient Medications: Current Inpatient Medications Acetaminophen (Acetaminophen 325 Mg Tab) 650 mg PO Q4H PRN PRN Reason: Headache or Minor Fever Stop: 07/16/20 22:51 Last Admin: 07/06/20 06:57 Dose: 650 mg Documented by: Al Hydrox/Mg Hydrox/Simethicone (Aluminum/Magnesium Susp 30 Ml Udc) 30 ml PO Q4H PRN PRN Reason: GI Upset Stop: 07/16/20 22:51 Aspirin (Aspirin 81 Mg Ectab) 81 mg PO DAILY DONNIE Stop: 07/18/20 08:59 Last Admin: 07/06/20 08:28 Dose: 81 mg Documented by: Atorvastatin Calcium (Atorvastatin 20 Mg Tab) 20 mg PO HS DONNIE Stop: 07/17/20 21:59 Last Admin: 07/05/20 19:49 Dose: 20 mg Documented by: Benztropine Mesylate (Benztropine Mesylate 1 Mg Tab) 1 mg PO BID PRN PRN Reason: Muscle Spasm Stop: 07/17/20 20:59 Last Admin: 07/03/20 07:26 Dose: 1 mg Documented by: Bismuth Subsalicylate (Bismuth Subsalicylate Liqd 236 Ml) 15 ml PO PRN PRN PRN Reason: Loose Stool Stop: 07/16/20 22:51 Clozapine (Clozapine 25 Mg Tab) 25 mg PO DAILY [facility]; Protocol Stop: 08/06/20 08:59 Clozapine (Clozapine 25 Mg Tab) 75 mg PO [facility] Stop: 08/05/20 21:59 Fluoxetine HCl (Fluoxetine Hcl 10 Mg Cap) 10 mg PO QAM [facility] Stop: 07/20/20 10:14 Last Admin: 07/06/20 08:29 Dose: 10 mg Documented by: Gabapentin (Gabapentin 300 Mg Cap) 300 mg PO TID [facility] Stop: 08/03/20 13:59 Last Admin: 07/06/20 08:29 Dose: 300 mg Documented by: Lamotrigine (Lamotrigine 25 Mg Tab) 150 mg PO [facility] Stop: 08/03/20 21:59 Last Admin: 07/05/20 19:48 Dose: 150 mg Documented by: Levothyroxine Sodium (Levothyroxine Sodium 100 Mcg Tablet) [facility] Stop: 07/18/20 07:59 Last Admin: 07/06/20 08:18 Dose: 100 mcg Documented by: Lorazepam (Lorazepam 0.5 Mg Tab) 0.5 mg PO TID PRN PRN Reason: anxiety Stop: 07/21/20 11:00 Last Admin: 07/04/20 17:19 Dose: 0.5 mg Documented by: Lorazepam (Lorazepam 0.5 Mg Tab) 0.5 mg PO TID [facility] Stop: 08/05/20 13:59 Magnesium Hydroxide (Magnesium Hydroxide Susp 30 Ml Udc) 30 ml PO DAILY PRN PRN Reason: Constipation Stop: 07/16/20 22:51 Multivitamins (Multivitamin Tab) 1 tab PO [facility] Stop: 08/01/20 08:59 Last Admin: 07/06/20 08:29 Dose: 1 tab Documented by: Perphenazine (Perphenazine 2 Mg Tablet) 4 mg PO BID PRN PRN Reason: paranoia Stop: 07/23/20 20:59 Last Admin: 07/02/20 01:14 Dose: 4 mg Documented by: Propranolol HCl (Propranolol Hcl 10 Mg Tab) 10 mg PO BID [facility] Stop: 07/17/20 20:59 Last Admin: 07/06/20 08:28 Dose: 10 mg Documented by: Sodium Chloride (Sodium Chloride 0.65% Na Soln 45 Ml ([place])) 1 - 2 sprays NA PRN PRN PRN Reason: Nasal Dryness/Congestion Stop: 07/16/20 22:51 Mental Health & Subst Abuse Tx Psychiatrist Name of Psychiatrist: Tyra Redmond Psychiatrist's Date of Appointment with Psychiatrist: 07/23/20 Time of Appointment with Psychiatrist: [id number] Psychiatric Appointment Comment: [id number] [facility] Day Light Relief Operator Name of Day Light Relief Operator: Joanne [facility] Post Discharge Appointments Primary Care Physician Name Of Family Doctor: Jorge [facility] Date of Appointment with PCP: 06/26/20 Time of Appointment with PCP: 10:20 a.m. Provider Appointment Comment: [phone] [facility] Neurologist Name of Neurologist: MARITZA Li Neurologist's Date of Appointment with Neurologist: 08/20/20 Time of Appointment with Neurologist: 10:30 a.m. Neurology Appointment Comment: [facility] [address] Contact Information Discharge Discharge Address: [address] [place] [address] [place] [address] (1) Psychosis Psychosis type: unspecified psychosis type Qualified Code(s): F29 - Unspecified psychosis not due to a substance or known physiological condition
[2020-07-06] MEDS: lamoTRIgine 25 MG TAB PO SCH (20:20)
[2020-07-06] MEDS: ATORVASTATIN 20 MG TAB PO SCH (20:21)
[2020-07-07] MEDS: ASPIRIN 81 MG ECTAB PO SCH (08:28)
[2020-07-07] MEDS: MULTIVITAMIN TAB PO SCH (08:28)
[2020-07-07] MEDS: LEVOTHYROXINE SODIUM 100 MCG TABLET PO SCH (08:28)
[2020-07-07] MEDS: PROPRANOLOL HCL 10 MG TAB PO SCH ×2 (08:28→19:57)
[2020-07-07] MEDS: GABAPENTIN 300 MG CAP PO SCH ×3 (08:28→19:57)
[2020-07-07] MEDS: FLUoxetine HCL 10 MG CAP PO SCH (08:28)
[2020-07-07] MEDS: LORazepam 0.5 MG TAB PO SCH (08:33)
[2020-07-07] MEDS ORDERED: cloZAPine 25 MG TAB PO SCH (09:00)
--- NOTE | 2020-07-07 12:36 | Psychiatric Progress Note ---
Date of Service July 07, 2020 Impression / Recommendations Impression 60-year-old female with a history of bipolar disorder type I, tardive dyskinesia, and decompensation over the past month and a half with impaired memory, multiple falls, dysarthria, and hallucinations. She had multiple ER visits at the end of April for falls and physical weakness, and due to lithium toxicity her lithium was discontinued, and due to EPS and tardive dyskinesia, Latuda was discontinued, and she was started on lamotrigine. Although lamotrigine was started at the end of April, it was just increased to 50 mg daily 06/06, and Vraylar 1.5 mg added. Her son brought her into the ER due to increasing confusion, incontinence, falls, and hallucinations. We are continuing standard titration of lamotrigine and attempting to limit overuse of antipsychotic medications given the patient's significant TD. There does seem to be an aspect of delirium at play; however, patient has also decompensated psychiatrically and response to medication adjustments has been limited. Decision was made to titrate Vraylar to 3mg due to ongoing delusions/paranoia causing the patient significant distress on the unit. She was also started on scheduled lorazepam due to concern for possible catatonic presentation as patient had been agitated and very restless. Normal MRI reviewed from Apr, outpatient notes reviewed and patient had been referred to neurology. Case has been reviewed with our neurology team and formal consultation was completed for gait instability/multiple falls/tardive dyskinesia - appreciate recommendations provided. As it did not seem that patient was having a robust response to the Vraylar titration, decision was made to pursue a trial of clozapine to target delusions/paranoia while also attempting to reduce risk of worsening TD. Efforts have been made to order valbenazine (which required prior-authorization and specialty pharmacy order) to target significant TD - this has not yet arrived for us to order for use here in the hospital. Pt continues to be disori ented and disorganized to the point that she would not be able to reasonably care for her basic needs outside of the hospital and certainly could not tolerate the stress of community re-entry in her current condition. Because of what appear to be periodic reports of visual and olfactory hallucinations, typically not explained by bipolar disorder, and because of per symptoms of confusion, such as disorientation, something that is clearly not consistent with the patient's baseline, we want to rule out central nervous system pathology such as a space-occupying lesion. It is noted that she had MRI with contrast last summer, and an MRI without contrast in April 2020. However, because of the above findings we believe that we need to do an MRI with contrast to help us rule out what really does appear to be a certain amount of an underlying organic overlay the patient's psychiatric symptoms. It is also possible that the patient is experiencing complex partial seizures, because her condition does appear to wax and wane to some extent. 07/05 Reviewed. 07/06&07/07--improving but sedated, limited self-care (1) Psychosis: 06/17 -complicated case, primary diagnosis unclear to me at this point. 2- month history of frequent falls, weakness, and abnormal involuntary movements. Hallucinations with fairly acute onset over the past couple of weeks, as well as memory impairment and significant disorganization on exam today. Minimal evidence of mood episode on my exam, but her outpatient clinician noted symptoms of depression at her last visit a week and a half ago. It would be very helpful to be able to monitor her symptoms around the clock. Differential includes delirium, mood related psychosis, cognitive disorder, or primary thought disorder. -Lamotrigine started a little over a month ago, and just increased to 50 mg daily a week and a half ago. We will continue the standard titration. Vraylar just started about 1 and half weeks ago, will continue 1.5 mg daily. 2 - Outpatient records reviewed and care coordinated as above. - Continue Vraylar 1.5mg daily. Fasting labs were checked 11/2019: TG 153, Hgb A1C 5.8% (est ave glucose 120). Will hold off on titrating Vraylar due to her tardive dyskinesia and fact that symptoms are improving. - AIMS today is 10; 3 for tongue movements, 2 for foot movements, 3 for overall severity, and 2 for patient awareness/mild distress. - Patient is slightly more organized in her thinking and speech today, oriented to self and place, but not time. Still confused, unable to find her room, requiring frequent redirection. She is demonstrating paranoia, sometimes directed at staff, but responded well to reassurance, and focus on her distressing emotions. 2/ - Continue medication regimen as above, lamotrigine increasing to 100mg this evening. - Pt continues to be rather confused, but also paranoid. She continues to suggest that staff is talking about her, but has more recently been convinced that several family members are being locked in the various offices on the unit. - Continue attempt to limit antipsychotic medications as able, patient continues to respond well to redirection and reassurance from staff. 06/20 -The patient remains confused and floridly psychotic. Her delusions are mood congruent with depression. For example, today she tells me that she is to be punished because she has "killed [her] mother and father, and everyone in the family." She is also tearful and sobs through much of today's encounter. She also is experiencing auditory hallucinations that are consistent with the content of the delusions. -She appears not to be oriented to month or year. However, assessment of cognitive functioning is somewhat difficult because the patient is largely mute and is very quickly distracted by what appears to be auditory hallucinations. -The patient is able to tell us that her diagnosis is bipolar disorder and that she is in the hospital being treated for a mental illness. Although she claims to not know what medication she is currently taking, she was able to answer several questions regarding what medication she has or has not taken in the past. Today, reports that she has taken Prozac in the past and that has helped when she is depressed, at least to some extent. 06/20--reviewed past med trials, hesitant to use Haldol or thorazine given her TD and fall risk with latter. She refuses anyway. Did pill counts to confirm started date of Vraylar >2 weeks ago, will increase to 3 mg. Benzos are often helpful for catatonic features but need to watch gait. Start Ativan 0.5 mg TID prn and evaluate response/gait. d/c Sinequan prn as high dose and now on Prozac. d/c Vistaril given anticholinergic and also on Cogentin. Consider Trilafon if no immediate improvement on higher dose of Vraylar. 06/21--improved slightly today, will add standing order Ativan as tolerating 1 mg BID (am and evening meal) and decrease Restoril given am confusion. It is still possible that anticholinergic effects of Vistaril and ?Cogentin contributing to confusion. Will reassess Cogentin dosing tomorrow. 06/22--change Cogentin to prn, offer Trilafon BID prn to assess tolerability for additional coverage during Vraylar trial. D/C Restoril after tonight's dose. This will limit polypharmacy, case reviewed with Dr. Marks due to complexity and reconfirm impression of ongoing slow improvements. Will seek input from neurology on additional assessment here for falls and weakness with incontinence though gait and organization improving. Patient is limited historian/limited cooperation with neuro exam given psychosis. 06/24 -Multiple medication changes over the past few days, including addition of daytime lorazepam 1 mg twice daily, taper off of temazepam, increase of cariprazine to 3 mg daily, discontinuing scheduled benztropine, and addition of perphenazine 4 mg twice daily as needed. She remains on lamotrigine 100 mg daily (can be increased to 200 mg daily on 07/03/2020, per standard titration protocol). She received 4 mg perphenazine x 2 yesterday, and 1 so far today. Psychosis continues, with auditory hallucinations and paranoia/delusions of persecution. Given that we are trying to minimize antipsychotic burden due to her EPS, I will increase her lorazepam to 1 mg 3 times daily to target anxious distress and catatonia, but will need to watch for sedation and impaired gait. AIMS today is 12; 4 for tongue movements, 3 for severity, 2 for incapacitation, and 3 for patient awareness. 06/25 - Continue current medication regimen - patient does have reported moments confusion and visual hallucinations. There does seem to be a component of delirium superimposed on patient's psychosis, but unlikely to explain all of her current presentation. - During conversation today, patient is confused but not verbalizing delusions or paranoia - Neurology consult as outlined below 06/26 - Continue current medication regimen - will attempt to acquire valbenazine to target TD - Pt continues to have waxing and waning confusion, but symptoms of clinton psychosis do seem to be steadily improving - Staff continue to report concerns for gait instability - patient on formal 1:1 after sustaining minor falls 2 days ago. 06/27 -Continue current medication regimen. -The patient is continued to have waxing and waning confusion, but overall her periods of confusion seem to be less frequent and less prominent. -Our attempt to obtain authorization for coverage of valbenazine have been unsuccessful. We are currently appealing the decision based on the fact that patient's tardive dyskinesia is so severe that she has trouble ingesting food and communicating orally. -Patient has been taken off one-to-one, but she is being closely monitored by staff. The patient has demonstrated that she is being very careful when ambulating. 06/28 - Tapering lorazepam - 0.5mg at 0900 and 1400, and maintaining 1mg dose qHS. Continue Vraylar, Lamictal, and Prozac. - Pt continues to have waxing and waning of confusion - intermittently requiring staff redirection - Pt stating today that she just learned her father , and believes he is being buried today. Still intermittently believes her family is hidden around the unit. 06/29 - 07/01 - Continue current medication regimen - patient still having episodes of confusion, visual hallucinations, delusions, and paranoia. - Pt will likely require additional time to stabilize, though continues to have slow improvement. 07/02 - Will discontinue Vraylar and initiate a titration of clozapine - patient informed of common side effects and need for weekly blood monitoring and agreed to the medication change. Titration of clozapine has been ordered up to a dose of 150mg - this can be adjusted based on patient's ability to tolerate the new medication. - Clozapine [facility] enrollment ID: [id number] - Patient's dose of lamotrigine can also be increased to 150mg with tomorrow evening's dose - Pt continues to be emotionally labile with ongoing delusions/paranoia and frequent episodes of confusion. - She did report pain with urination to staff yesterday, stating it felt like previous UTI's she has experienced - UA completed, still not demonstrating concern for UTI. 07/03 - Clozapine dosing adjusted to allow for BID administration of the medication. Pt will receive 25mg BID today, dosing can continue to be titrated as tolerated. - Titrating lamotrigine to 150mg this evening - Pt continues to be emotionally labile with ongoing delusions/paranoia and frequent episodes of confusion. 07/04 -The patient has tolerated lamotrigine at 150 mg. -We will increase her dose of clozapine from 25 mg twice a day to 50 mg twice a day, beginning this evening. -The patient underwent a MRI with contrast today. This imaging study was noncontributory and was read as being essentially within normal limits. -Patient has been less emotionally labile today, and is generally pleasant on approach. However, she remains delusional and, as noted above, has been reporting that she is "seeing" the remains of a deer in her hospital bed room, and, further, she insists that she can smell the putrid smell of the rotting animal. Given that her MRI with contrast today was within normal limits we are suspecting that she may be experiencing complex partial seizures. For that reason, her dose of gabapentin is being increased to a dose of gabapentin 300 mg 3 times a day. 07/05--reviewed, Clozaril and gabapentin increased last night, missed a dose of gabapentin. 07/06--shift dosing of Clozaril to 25 mg po qam and 75 mg po qhs due to sedation, decrease hs Ativan to 0.5 mg as sleep improving and potential combined sedation with Clozaril. Will reassess daytime Ativan dosing tomorrow on lower am dose of Clozaril. 07/07--continue to shift Clozaril to hs given excessive daytime sedation and begin Ativan taper. (2) Bipolar 1 disorder: 2 - Historical diagnosis, previous admission for alison. Recent medication adjustments made including discontinuing lithium and starting Vraylar and lamotrigine. Continue home meds for now while gathering additional information, spoke with Tyra Higgins to coordinate care. - Referring for BCM through [place]. 2 -patient appears anxious and depressed today, son expresses concerns that she has been more depressed lately, which he attributes to her loss of independence and marital discord. Continue titration of lamotrigine, increase to 100mg daily tomorrow. 06/19 - Lamotrigine to increase to 100mg this evening - continue standard titration schedule to target mood concerns - Patient continues to present as primarily depressed and anxiety, frequently tearful and distressed on the unit - though much of this is likely related to a reaction to current psychotic symptoms. 06/20 -The patient continues to appear anxious and depressed. -She appears to be tolerating the titration of lamotrigine. -Sleep remains suboptimal. Appetite remains suboptimal. -I will offer the patient a trial of fluoxetine 10 mg daily with caution, given her diagnosis of bipolar disorder. She is currently taking 2 mood stabilizing agents. 06/21 Reviewed. 06/26 - Treatment plan as outlined under "Psychosis" 06/27 -See above. 07/03 - Titrating lamotrigine to 150mg this evening. 07/04 -We also increasing gabapentin to 300 mg 3 times a day, primarily to address possible complex partial seizures, but also because it may provide some additional mood stabilization.) -Clozapine has been increased to a dose of 50 mg twice a day, starting this evening. -Some of the patient's presenting symptoms, such as apparent olfactory and visual hallucinations are not generally attributable to a diagnosis of bipolar disorder and we are continuing to investigate. 07/05--reviewed. (3) Tardive dyskinesia: 06/17 -monitor abnormal involuntary movements, consider trial of Ingrezza, although I believe it is nonformulary -Consider neurology consult for assistance with increase in falls, weakness, and abnormal movements -she was apparently referred to [facility] 4 months ago, and her appointment is sometime this month. 06/18 -patient's gait has been steady since admission, without falls. She is not demonstrating obvious signs of weakness here, is ambulating, getting in and out of chairs, and performing ADLs without difficulty. She reportedly has an outpatient neurology appointment next week, will clarify that and may not need inpatient consultation 06/21--reviewed. 06/24 -case was reviewed with neurology over the weekend, and they did not suggest any further inpatient work-up of her weakness, recurrent falls, gait difficulties, given that she had a normal brain MRI and would not currently be able to tolerate an LP. Her outpatient neurology appointment has been rescheduled for 08/20/[address] Li. 06/25 - Will request formal neurology consultation at this point, patient has had 3 minor falls during her stay with two occurring yesterday - It is likely that there is a component of delirium at play presently, but there are outpatient reports that suggest these gait disturbances and weakness was occurring prior to her medication changes/psychiatric admission - Case had been reviewed with our neurology service, would appreciate any input from formal examination and evaluation. Consult placed for "unsteady gait, multiple falls, and tardive dyskinesia" - CMP and UA re-ordered given waxing and waning confusion - pt did have UA prior to admission that appeared to be contaminated. Pt does admit to urinary frequency, but says this is not new. 06/26 - Appreciate recommendations offered by our neurology service. - They also recommend initiating valbenazine 40mg for TD symptoms - Additional labs were also recommended: will order A1c, TSH reflex free T4, vit B12 - Recommendation for outpatient neuropsychological testing referral 06/27 -Today, the patient reports that she is pleased to tell us that she believes that her tardive dyskinesia symptoms have improved somewhat, possibly after having taken [Vraylar] consistently this week. -As noted above, coverage authorization for valbenazine 40 mg daily for her severe tardive dyskinesia is inexplicably been denied, and we are appealing the decision. The decision is based on the severity of the patient's symptoms and the degree to which the adversely affect her ability to eat and communicate verbally. 06/28 - Received notification that Ingrezza 40mg has been approved - attempting to determine cost for use and specialty pharmacy that can provide the prescription. 07/01 - Ingrezza 40mg has reportedly been ordered and is being mailed to the patient's home. Family to bring in the prescription once it arrives. 07/04 -We are still awaiting receipt of Ingrezza. The patient feels that her tardive dyskinesia has improved and today she says as she did last week that she is able to eat better. -The severity of the patient's abnormal involuntary movements does seem to have improved somewhat. 07/05--reviewed. Risk Factors Assessment Male: No : Yes Health Problems: Yes Mental Health Diagnoses: Yes Substance Use Disorders: No Previous Psychiatric Hospitalization: Yes Hopelessness: No Smoker: No Protective Factors Assessment : Yes Responsible for Young Children: No Employed: No Supportive Family: Yes Good Rapport with Provider: Yes Interval History Identifying Information ALVARO FRAIRE is a 60-year-old F who currently lives in [place] with her , has a history of bipolar disorder type I, and was admitted on 06/16/20 22:11 on a 201 voluntary commitment for psychosis. Reviewed. Chief Complaint daytime sedation Review of Systems Sleep Information Total Hours of Sleep: 8.5 Meal Information Percent Meal Consumed - Breakfast: 100 Percent Meal Consumed - Lunch: 0 Percent Meal Consumed - Dinner: 90 Nutrition Comment: pt. asleep. Meal dated, labeled and refrigerated Subjective Subjective Patient was seen & assessed and interval progress reviewed with treatment team. Patient is disorganized this am but eating better and requesting specific menu items. Gait varies. Not as tearful or paranoid, easier to redirect around delusions. Physical Exam Psychiatric Orientation: alert Apperance: + disheveled Eye Contact: + poor eye contact TD poorly articulated speech Affect: + blunted affect Mood: + depressed mood Thought Process: + tangential thought process Thought Content: + delusions Suicidal Thoughts: denies suicidal thoughts Homicidal Thoughts: denies homicidal thoughts Hallucinations: no auditory hallucinations and no visual hallucinations Cognition: + attention not intact Insight: + impaired insight Judgement: + impaired judgement Vital Signs (Past 24 Hours) Last Vital Signs Temp 37.1 C 07/07/20 06:39 Pulse 97 H 07/07/20 06:39 Resp 17 07/07/20 06:39 BP 126/87 07/07/20 06:39 Pulse Ox 99 06/16/20 23:03 Results & Data ([facility]) Current Inpatient Medications Current Inpatient Medications: Current Inpatient Medications Acetaminophen (Acetaminophen 325 Mg Tab) 650 mg PO Q4H PRN PRN Reason: Headache or Minor Fever Stop: 07/16/20 22:51 Last Admin: 07/06/20 06:57 Dose: 650 mg Documented by: Al Hydrox/Mg Hydrox/Simethicone (Aluminum/Magnesium Susp 30 Ml Udc) 30 ml PO Q4H PRN PRN Reason: GI Upset Stop: 07/16/20 22:51 Aspirin (Aspirin 81 Mg Ectab) 81 mg PO DAILY DONNIE Stop: 07/18/20 08:59 Last Admin: 07/07/20 08:28 Dose: 81 mg Documented by: Atorvastatin Calcium (Atorvastatin 20 Mg Tab) 20 mg PO HS DONNIE Stop: 07/17/20 21:59 Last Admin: 07/06/20 20:21 Dose: 20 mg Documented by: Benztropine Mesylate (Benztropine Mesylate 1 Mg Tab) 1 mg PO BID PRN PRN Reason: Muscle Spasm Stop: 07/17/20 20:59 Last Admin: 07/03/20 07:26 Dose: 1 mg Documented by: Bismuth Subsalicylate (Bismuth Subsalicylate Liqd 236 Ml) 15 ml PO PRN PRN PRN Reason: Loose Stool Stop: 03/03/21 22:51 Clozapine (Clozapine 25 Mg Tab) 25 mg PO DAILY [facility]; Protocol Stop: 08/06/20 08:59 Last Admin: 07/07/20 08:28 Dose: 25 mg Documented by: Clozapine (Clozapine 25 Mg Tab) 75 mg PO [facility] Stop: 08/05/20 21:59 Last Admin: 07/06/20 20:20 Dose: 75 mg Documented by: Fluoxetine HCl (Fluoxetine Hcl 10 Mg Cap) 10 mg PO QAM [facility] Stop: 07/20/20 10:14 Last Admin: 07/07/20 08:28 Dose: 10 mg Documented by: Gabapentin (Gabapentin 300 Mg Cap) 300 mg PO TID [facility] Stop: 08/03/20 13:59 Last Admin: 07/07/20 08:28 Dose: 300 mg Documented by: Lamotrigine (Lamotrigine 25 Mg Tab) 150 mg PO [facility] Stop: 08/03/20 21:59 Last Admin: 07/06/20 20:20 Dose: 150 mg Documented by: Levothyroxine Sodium (Levothyroxine Sodium 100 Mcg Tablet) [facility] Stop: 07/18/20 07:59 Last Admin: 07/07/20 08:28 Dose: 100 mcg Documented by: Lorazepam (Lorazepam 0.5 Mg Tab) 0.5 mg PO TID PRN PRN Reason: anxiety Stop: 07/21/20 11:00 Last Admin: 07/04/20 17:19 Dose: 0.5 mg Documented by: Lorazepam (Lorazepam 0.5 Mg Tab) 0.5 mg PO TID [facility] Stop: 08/05/20 13:59 Last Admin: 07/07/20 08:33 Dose: Not Given Documented by: Magnesium Hydroxide (Magnesium Hydroxide Susp 30 Ml Udc) 30 ml PO DAILY PRN PRN Reason: Constipation Stop: 07/16/20 22:51 Multivitamins (Multivitamin Tab) 1 tab PO [facility] Stop: 08/01/20 08:59 Last Admin: 07/07/20 08:28 Dose: 1 tab Documented by: Perphenazine (Perphenazine 2 Mg Tablet) 4 mg PO BID PRN PRN Reason: paranoia Stop: 07/23/20 20:59 Last Admin: 07/02/20 01:14 Dose: 4 mg Documented by: Propranolol HCl (Propranolol Hcl 10 Mg Tab) 10 mg PO BID [facility] Stop: 07/17/20 20:59 Last Admin: 07/07/20 08:28 Dose: 10 mg Documented by: Sodium Chloride (Sodium Chloride 0.65% Na Soln 45 Ml ([place])) 1 - 2 sprays NA PRN PRN PRN Reason: Nasal Dryness/Congestion Stop: 07/16/20 22:51 Mental Health & Subst Abuse Tx Psychiatrist Name of Psychiatrist: Tyra Redmond Psychiatrist's Date of Appointment with Psychiatrist: 07/23/20 Time of Appointment with Psychiatrist: [id number] Psychiatric Appointment Comment: [id number] [facility] [employer] Name of Assembler Filters: Joanne Zurita Post Discharge Appointments Primary Care Physician Name Of Family Doctor: Jorge Spears [facility] Date of Appointment with PCP: 06/26/20 Time of Appointment with PCP: 10:20 a.m. Provider Appointment Comment: [id number] [facility] Neurologist Name of Neurologist: MARITZA Li Neurologist's Date of Appointment with Neurologist: 08/20/20 Time of Appointment with Neurologist: 10:30 a.m. Neurology Appointment Comment: [address] Contact Information Discharge Discharge Address: [address] [place] [address] [place] [address] (1) Psychosis Psychosis type: unspecified psychosis type Qualified Code(s): F29 - Unspecified psychosis not due to a substance or known physiological condition
[2020-07-07] MEDS: lamoTRIgine 25 MG TAB PO SCH (19:57)
[2020-07-07] MEDS: cloZAPine 25 MG TAB PO SCH (19:57)
[2020-07-07] MEDS: ATORVASTATIN 20 MG TAB PO SCH (19:58)
[2020-07-08] MEDS: ACETAMINOPHEN 325 MG TAB PO PRN (05:43)
[2020-07-08] MEDS: LEVOTHYROXINE SODIUM 100 MCG TABLET PO SCH (08:16)
[2020-07-08] MEDS: MULTIVITAMIN TAB PO SCH (08:17)
[2020-07-08] MEDS: PROPRANOLOL HCL 10 MG TAB PO SCH ×2 (08:17→20:26)
[2020-07-08] MEDS: GABAPENTIN 300 MG CAP PO SCH ×3 (08:17→20:25)
[2020-07-08] MEDS: FLUoxetine HCL 10 MG CAP PO SCH (08:17)
[2020-07-08] MEDS: ASPIRIN 81 MG ECTAB PO SCH (08:17)
--- NOTE | 2020-07-08 09:12 | Psychiatric Progress Note ---
Date of Service July 08, 2020 Impression / Recommendations Impression 60-year-old female with a history of bipolar disorder type I, tardive dyskinesia, and decompensation over the past month and a half with impaired memory, multiple falls, dysarthria, and hallucinations. She had multiple ER visits at the end of April for falls and physical weakness, and due to lithium toxicity her lithium was discontinued, and due to EPS and tardive dyskinesia, Latuda was discontinued, and she was started on lamotrigine. Although lamotrigine was started at the end of April, it was just increased to 50 mg daily 06/06, and Vraylar 1.5 mg added. Her son brought her into the ER due to increasing confusion, incontinence, falls, and hallucinations. We are continuing standard titration of lamotrigine and attempting to limit overuse of antipsychotic medications given the patient's significant TD. There does seem to be an aspect of delirium at play; however, patient has also decompensated psychiatrically and response to medication adjustments has been limited. Decision was made to titrate Vraylar to 3mg due to ongoing delusions/paranoia causing the patient significant distress on the unit. She was also started on scheduled lorazepam due to concern for possible catatonic presentation as patient had been agitated and very restless. Normal MRI reviewed from Apr, outpatient notes reviewed and patient had been referred to neurology. Case has been reviewed with our neurology team and formal consultation was completed for gait instability/multiple falls/tardive dyskinesia - appreciate recommendations provided. As it did not seem that patient was having a robust response to the Vraylar titration, decision was made to pursue a trial of clozapine to target delusions/paranoia while also attempting to reduce risk of worsening TD. Efforts have been made to order valbenazine (which required prior-authorization and specialty pharmacy order) to target significant TD - this has not yet arrived for us to order for use here in the hospital. MRI with contrast was repeated on 07/04 due to patient's reports of visual and olfactory hallucinations and desire to rule out possible organic cause such as a space-occupying lesion, MRI was unremarkable. There was also a question of patient possibly experiencing complex partial seizures due to the waxing and waning nature of her presentation - gabapentin was increased to 300mg TID. Pt continues to be disoriented and disorganized to the point that she would not be able to reasonably care for her basic needs outside of the hospital and certainly could not tolerate the stress of community re-entry in her current condition. (1) Psychosis: 2/2 -complicated case, primary diagnosis unclear to me at this point. 2- month history of frequent falls, weakness, and abnormal involuntary movements. Hallucinations with fairly acute onset over the past couple of weeks, as well as memory impairment and significant disorganization on exam today. Minimal evidence of mood episode on my exam, but her outpatient clinician noted symptoms of depression at her last visit a week and a half ago. It would be very helpful to be able to monitor her symptoms around the clock. Differential includes delirium, mood related psychosis, cognitive disorder, or primary thought disorder. -Lamotrigine started a little over a month ago, and just increased to 50 mg daily a week and a half ago. We will continue the standard titration. Vraylar just started about 1 and half weeks ago, will continue 1.5 mg daily. 2/3 - Outpatient records reviewed and care coordinated as above. - Continue Vraylar 1.5mg daily. Fasting labs were checked 11/2019: TG 153, Hgb A1C 5.8% (est ave glucose 120). Will hold off on titrating Vraylar due to her tardive dyskinesia and fact that symptoms are improving. - AIMS today is 10; 3 for tongue movements, 2 for foot movements, 3 for overall severity, and 2 for patient awareness/mild distress. - Patient is slightly more organized in her thinking and speech today, oriented to self and place, but not time. Still confused, unable to find her room, requiring frequent redirection. She is demonstrating paranoia, sometimes directed at staff, but responded well to reassurance, and focus on her distressing emotions. 2/4 - Continue medication regimen as above, lamotrigine increasing to 100mg this evening. - Pt continues to be rather confused, but also paranoid. She continues to suggest that staff is talking about her, but has more recently been convinced that several family members are being locked in the various offices on the unit. - Continue attempt to limit antipsychotic medications as able, patient continues to respond well to redirection and reassurance from staff. 2/5 -The patient remains confused and floridly psychotic. Her delusions are mood congruent with depression. For example, today she tells me that she is to be punished because she has "killed [her] mother and father, and everyone in the family." She is also tearful and sobs through much of today's encounter. She also is experiencing auditory hallucinations that are consistent with the content of the delusions. -She appears not to be oriented to month or year. However, assessment of cognitive functioning is somewhat difficult because the patient is largely mute and is very quickly distracted by what appears to be auditory hallucinations. -The patient is able to tell us that her diagnosis is bipolar disorder and that she is in the hospital being treated for a mental illness. Although she claims to not know what medication she is currently taking, she was able to answer several questions regarding what medication she has or has not taken in the past. Today, reports that she has taken Prozac in the past and that has helped when she is depressed, at least to some extent. 06/20--reviewed past med trials, hesitant to use Haldol or thorazine given her TD and fall risk with latter. She refuses anyway. Did pill counts to confirm started date of Vraylar >2 weeks ago, will increase to 3 mg. Benzos are often helpful for catatonic features but need to watch gait. Start Ativan 0.5 mg TID prn and evaluate response/gait. d/c Sinequan prn as high dose and now on Prozac. d/c Vistaril given anticholinergic and also on Cogentin. Consider Trilafon if no immediate improvement on higher dose of Vraylar. 06/21--improved slightly today, will add standing order Ativan as tolerating 1 mg BID (am and evening meal) and decrease Restoril given am confusion. It is still possible that anticholinergic effects of Vistaril and ?Cogentin contributing to confusion. Will reassess Cogentin dosing tomorrow. 06/22--change Cogentin to prn, offer Trilafon BID prn to assess tolerability for additional coverage during Vraylar trial. D/C Restoril after tonight's dose. This will limit polypharmacy, case reviewed with Dr. Marks due to complexity and reconfirm impression of ongoing slow improvements. Will seek input from neurology on additional assessment here for falls and weakness with incontinence though gait and organization improving. Patient is limited historian/limited cooperation with neuro exam given psychosis. 06/24 -Multiple medication changes over the past few days, including addition of daytime lorazepam 1 mg twice daily, taper off of temazepam, increase of cariprazine to 3 mg daily, discontinuing scheduled benztropine, and addition of perphenazine 4 mg twice daily as needed. She remains on lamotrigine 100 mg daily (can be increased to 200 mg daily on 07/03/2020, per standard titration protocol). She received 4 mg perphenazine x 2 yesterday, and 1 so far today. Psychosis continues, with auditory hallucinations and paranoia/delusions of persecution. Given that we are trying to minimize antipsychotic burden due to her EPS, I will increase her lorazepam to 1 mg 3 times daily to target anxious distress and catatonia, but will need to watch for sedation and impaired gait. AIMS today is 12; 4 for tongue movements, 3 for severity, 2 for incapacitation, and 3 for patient awareness. 06/25 - Continue current medication regimen - patient does have reported moments confusion and visual hallucinations. There does seem to be a component of delirium superimposed on patient's psychosis, but unlikely to explain all of her current presentation. - During conversation today, patient is confused but not verbalizing delusions or paranoia - Neurology consult as outlined below 06/26 - Continue current medication regimen - will attempt to acquire valbenazine to target TD - Pt continues to have waxing and waning confusion, but symptoms of clinton psychosis do seem to be steadily improving - Staff continue to report concerns for gait instability - patient on formal 1:1 after sustaining minor falls 2 days ago. 06/27 -Continue current medication regimen. -The patient is continued to have waxing and waning confusion, but overall her periods of confusion seem to be less frequent and less prominent. -Our attempt to obtain authorization for coverage of valbenazine have been unsuccessful. We are currently appealing the decision based on the fact that patient's tardive dyskinesia is so severe that she has trouble ingesting food and communicating orally. -Patient has been taken off one-to-one, but she is being closely monitored by staff. The patient has demonstrated that she is being very careful when ambulating. 06/28 - Tapering lorazepam - 0.5mg at 0900 and 1400, and maintaining 1mg dose qHS. Continue Vraylar, Lamictal, and Prozac. - Pt continues to have waxing and waning of confusion - intermittently requiring staff redirection - Pt stating today that she just learned her father , and believes he is being buried today. Still intermittently believes her family is hidden around the unit. 06/29 - 07/01 - Continue current medication regimen - patient still having episodes of confusion, visual hallucinations, delusions, and paranoia. - Pt will likely require additional time to stabilize, though continues to have slow improvement. 07/02 - Will discontinue Vraylar and initiate a titration of clozapine - patient informed of common side effects and need for weekly blood monitoring and agreed to the medication change. Titration of clozapine has been ordered up to a dose of 150mg - this can be adjusted based on patient's ability to tolerate the new medication. - Clozapine [facility] enrollment ID: [id number] - Patient's dose of lamotrigine can also be increased to 150mg with tomorrow evening's dose - Pt continues to be emotionally labile with ongoing delusions/paranoia and frequent episodes of confusion. - She did report pain with urination to staff yesterday, stating it felt like previous UTI's she has experienced - UA completed, still not demonstrating concern for UTI. 07/03 - Clozapine dosing adjusted to allow for BID administration of the medication. Pt will receive 25mg BID today, dosing can continue to be titrated as tolerated. - Titrating lamotrigine to 150mg this evening - Pt continues to be emotionally labile with ongoing delusions/paranoia and frequent episodes of confusion. 07/04 -The patient has tolerated lamotrigine at 150 mg. -We will increase her dose of clozapine from 25 mg twice a day to 50 mg twice a day, beginning this evening. -The patient underwent a MRI with contrast today. This imaging study was noncontributory and was read as being essentially within normal limits. -Patient has been less emotionally labile today, and is generally pleasant on approach. However, she remains delusional and, as noted above, has been reporting that she is "seeing" the remains of a deer in her hospital bed room, and, further, she insists that she can smell the putrid smell of the rotting animal. Given that her MRI with contrast today was within normal limits we are suspecting that she may be experiencing complex partial seizures. For that reason, her dose of gabapentin is being increased to a dose of gabapentin 300 mg 3 times a day. 07/05--reviewed, Clozaril and gabapentin increased last night, missed a dose of gabapentin. 07/06--shift dosing of Clozaril to 25 mg po qam and 75 mg po qhs due to sedation, decrease hs Ativan to 0.5 mg as sleep improving and potential combined sedation with Clozaril. Will reassess daytime Ativan dosing tomorrow on lower am dose of Clozaril. 07/07--continue to shift Clozaril to hs given excessive daytime sedation and begin Ativan taper. 07/08 - Clozaril to be increased to 100mg this evening - Ativan ordered only as needed (pt has not required a prn dose since 07/04). - Staff report patient seems to be a bit less confused this morning compared to this weekend, gait seems to be more stable (2) Bipolar 1 disorder: 06/17 - Historical diagnosis, previous admission for ailson. Recent medication adjustments made including discontinuing lithium and starting Vraylar and lamotrigine. Continue home meds for now while gathering additional inf ormation, spoke with Tyra Higgins to coordinate care. - Referring for BCM through [facility]. 06/18 -patient appears anxious and depressed today, son expresses concerns that she has been more depressed lately, which he attributes to her loss of independence and marital discord. Continue titration of lamotrigine, increase to 100mg daily tomorrow. 06/19 - Lamotrigine to increase to 100mg this evening - continue standard titration schedule to target mood concerns - Patient continues to present as primarily depressed and anxiety, frequently tearful and distressed on the unit - though much of this is likely related to a reaction to current psychotic symptoms. 06/20 -The patient continues to appear anxious and depressed. -She appears to be tolerating the titration of lamotrigine. -Sleep remains suboptimal. Appetite remains suboptimal. -I will offer the patient a trial of fluoxetine 10 mg daily with caution, given her diagnosis of bipolar disorder. She is currently taking 2 mood stabilizing agents. 06/21 Reviewed. 06/26 - Treatment plan as outlined under "Psychosis" 06/27 -See above. 07/03 - Titrating lamotrigine to 150mg this evening. 07/04 -We also increasing gabapentin to 300 mg 3 times a day, primarily to address possible complex partial seizures, but also because it may provide some additional mood stabilization.) -Clozapine has been increased to a dose of 50 mg twice a day, starting this evening. -Some of the patient's presenting symptoms, such as apparent olfactory and visual hallucinations are not generally attributable to a diagnosis of bipolar disorder and we are continuing to investigate. 07/05--reviewed. (3) Tardive dyskinesia: 06/17 -monitor abnormal involuntary movements, consider trial of Ingrezza, although I believe it is nonformulary -Consider neurology consult for assistance with increase in falls, weakness, and abnormal movements -she was apparently referred to [facility] 4 months ago, and her appointment is sometime this month. 06/18 -patient's gait has been steady since admission, without falls. She is not demonstrating obvious signs of weakness here, is ambulating, getting in and out of chairs, and performing ADLs without difficulty. She reportedly has an outpatient neurology appointment next week, will clarify that and may not need inpatient consultation 06/21--reviewed. 06/24 -case was reviewed with neurology over the weekend, and they did not suggest any further inpatient work-up of her weakness, recurrent falls, gait difficulties, given that she had a normal brain MRI and would not currently be able to tolerate an LP. Her outpatient neurology appointment has been rescheduled for 08/20/[address] Li. 06/25 - Will request formal neurology consultation at this point, patient has had 3 minor falls during her stay with two occurring yesterday - It is likely that there is a component of delirium at play presently, but there are outpatient reports that suggest these gait disturbances and weakness was occurring prior to her medication changes/psychiatric admission - Case had been reviewed with our neurology service, would appreciate any input from formal examination and evaluation. Consult placed for "unsteady gait, multiple falls, and tardive dyskinesia" - CMP and UA re-ordered given waxing and waning confusion - pt did have UA prior to admission that appeared to be contaminated. Pt does admit to urinary frequency, but says this is not new. 06/26 - Appreciate recommendations offered by our neurology service. - They also recommend initiating valbenazine 40mg for TD symptoms - Additional labs were also recommended: will order A1c, TSH reflex free T4, vit B12 - Recommendation for outpatient neuropsychological testing referral 06/27 -Today, the patient reports that she is pleased to tell us that she believes that her tardive dyskinesia symptoms have improved somewhat, possibly after having taken [Vraylar] consistently this week. -As noted above, coverage authorization for valbenazine 40 mg daily for her severe tardive dyskinesia is inexplicably been denied, and we are appealing the decision. The decision is based on the severity of the patient's symptoms and the degree to which the adversely affect her ability to eat and communicate verbally. 06/28 - Received notification that Ingrezza 40mg has been approved - attempting to determine cost for use and specialty pharmacy that can provide the prescription. 07/01 - Ingrezza 40mg has reportedly been ordered and is being mailed to the patient's home. Family to bring in the prescription once it arrives. 07/04 -We are still awaiting receipt of Ingrezza. The patient feels that her tardive dyskinesia has improved and today she says as she did last week that she is able to eat better. -The severity of the patient's abnormal involuntary movements does seem to have improved somewhat. 07/05--reviewed. Risk Factors Assessment Male: No : Yes Health Problems: Yes Mental Health Diagnoses: Yes Substance Use Disorders: No Previous Psychiatric Hospitalization: Yes Hopelessness: No Smoker: No Protective Factors Assessment : Yes Responsible for Young Children: No Employed: No Supportive Family: Yes Good Rapport with Provider: Yes Interval History Identifying Information ALVARO FRAIRE is a 60-year-old F who currently lives in [place] with her , has a history of bipolar disorder type I, and was admitted on 06/16/20 22:11 on a 201 voluntary commitment for psychosis. Chief Complaint "I'm ok. You want to walk with me?" Review of Systems Notes Constitutional: reports improved sleep, less daytime fatigue Cardiovascular: denied Respiratory: denied Gastrointestinal: denied Neurological: denied Psychiatric: denies symptoms other than stated above Total of at least 10 systems reviewed, pertinent positives as above and in HPI. Sleep Information Total Hours of Sleep: 8 Sleep Comments: . Meal Information Percent Meal Consumed - Breakfast: 100 Percent Meal Consumed - Lunch: 40 Percent Meal Consumed - Dinner: 100 Nutrition Comment: . Subjective Subjective Patient was seen & assessed and interval progress reviewed with nursing and social work. Staff report the patient continued to have episodes of confusion and was more sedated this weekend. Medication adjustments were made to continue titration of clozapine while also reducing daily doses of lorazepam. Staff report that, at least this morning, the patient is more steady and a bit more coherent. Pt was observed to be in community meeting this morning, and was able to stay for the duration of the group. Pt was seen today to assess progress since admission. Pt agreed to walk a few laps with this provider. She admits to feeling less sedated this morning and denies dizziness or unstable gait. Pt states "it's been a while since I've fallen." Pt reports her sleep was decent last evening. It is the patient's perception that "I'm getting a lot better, I think." The patient states she has been having phone calls with her family, but does not believe they have shared if they feel things are improving. Pt did state she would be interested in another Zoom meeting if things remain more stable. Pt continues to state her goal is to "get out of here." She does not seems as emotionally labile today compared to previous conversations about discharge. Pt denied SI/HI and does not verbalize any hallucinations during our walk today. Pt denied other needs at this time. Pt was reminded that we are continuing to gradually increase her dose of clozapine and she denied additional questions. Physical Exam Psychiatric Orientation: alert, oriented to person, oriented to place and cooperative Apperance: appropriately dressed, appropriately groomed and appeared stated age Eye Contact: + fair eye contact Motor Behavior: steady gait and station (slow, but stable ambulation) and + EPS (TD) Speech: normal rate/rhythm/volume of speech mildly dysarthric at times, usually affected by severity of TD at that moment Affect: + blunted affect (appearing subdued, but not overtly depressed) Mood: no depressed mood "I'm ok" Thought Process: goal directed thought process and + concrete thought process Thought Content: no hopelessness Suicidal Thoughts: denies suicidal thoughts Homicidal Thoughts: denies homicidal thoughts Hallucinations: no auditory hallucinations and no visual hallucinations Cognition: attention grossly intact and language grossly intact Insight: + impaired insight Judgement: + impaired judgement Vital Signs (Past 24 Hours) Last Vital Signs Temp 36.9 C 07/08/20 06:39 Pulse 82 07/08/20 06:41 Resp 18 07/08/20 06:39 BP 125/80 07/08/20 06:41 Pulse Ox 99 06/16/20 23:03 Results & Data ([facility]) Current Inpatient Medications Current Inpatient Medications: Current Inpatient Medications Acetaminophen (Acetaminophen 325 Mg Tab) 650 mg PO Q4H PRN PRN Reason: Headache or Minor Fever Stop: 07/16/20 22:51 Last Admin: 07/08/20 05:43 Dose: 650 mg Documented by: Al Hydrox/Mg Hydrox/Simethicone (Aluminum/Magnesium Susp 30 Ml Udc) 30 ml PO Q4H PRN PRN Reason: GI Upset Stop: 07/16/20 22:51 Aspirin (Aspirin 81 Mg Ectab) 81 mg PO DAILY DONNIE Stop: 07/18/20 08:59 Last Admin: 07/08/20 08:17 Dose: 81 mg Documented by: Atorvastatin Calcium (Atorvastatin 20 Mg Tab) 20 mg PO HS DONNIE Stop: 07/17/20 21:59 Last Admin: 07/07/20 19:58 Dose: 20 mg Documented by: Benztropine Mesylate (Benztropine Mesylate 1 Mg Tab) 1 mg PO BID PRN PRN Reason: Muscle Spasm Stop: 07/17/20 20:59 Last Admin: 07/03/20 07:26 Dose: 1 mg Documented by: Bismuth Subsalicylate (Bismuth Subsalicylate Liqd 236 Ml) 15 ml PO PRN PRN PRN Reason: Loose Stool Stop: 07/16/20 22:51 Clozapine (Clozapine 25 Mg Tab) 75 mg PO HS DONNIE Stop: 08/05/20 21:59 Last Admin: 07/07/20 19:57 Dose: 75 mg Documented by: Fluoxetine HCl (Fluoxetine Hcl 10 Mg Cap) 10 mg PO QAM DONNIE Stop: 07/20/20 10:14 Last Admin: 07/08/20 08:17 Dose: 10 mg Documented by: Gabapentin (Gabapentin 300 Mg Cap) 300 mg PO TID DONNIE Stop: 08/03/20 13:59 Last Admin: 07/08/20 08:17 Dose: 300 mg Documented by: Lamotrigine (Lamotrigine 25 Mg Tab) 150 mg PO HS [facility] Stop: 08/03/20 21:59 Last Admin: 07/07/20 19:57 Dose: 150 mg Documented by: Levothyroxine Sodium (Levothyroxine Sodium 100 Mcg Tablet) 100 mcg PO DAILYBB DONNIE Stop: 07/18/20 07:59 Last Admin: 07/08/20 08:16 Dose: 100 mcg Documented by: Lorazepam (Lorazepam 0.5 Mg Tab) 0.5 mg PO TID PRN PRN Reason: anxiety Stop: 07/21/20 11:00 Last Admin: 07/04/20 17:19 Dose: 0.5 mg Documented by: Magnesium Hydroxide (Magnesium Hydroxide Susp 30 Ml Udc) 30 ml PO DAILY PRN PRN Reason: Constipation Stop: 07/16/20 22:51 Multivitamins (Multivitamin Tab) 1 tab PO QAM DONNIE Stop: 08/01/20 08:59 Last Admin: 07/08/20 08:17 Dose: 1 tab Documented by: Perphenazine (Perphenazine 2 Mg Tablet) 4 mg PO BID PRN PRN Reason: paranoia Stop: 07/23/20 20:59 Last Admin: 07/02/20 01:14 Dose: 4 mg Documented by: Propranolol HCl (Propranolol Hcl 10 Mg Tab) 10 mg PO BID DONNIE Stop: 07/17/20 20:59 Last Admin: 07/08/20 08:17 Dose: 10 mg Documented by: Sodium Chloride (Sodium Chloride 0.65% Na Soln 45 Ml ([place])) 1 - 2 sprays NA PRN PRN PRN Reason: Nasal Dryness/Congestion Stop: 07/16/20 22:51 Mental Health & Subst Abuse Tx Psychiatrist Name of Psychiatrist: Tyra Redmond Psychiatrist's Date of Appointment with Psychiatrist: 07/23/20 Time of Appointment with Psychiatrist: [id number] Psychiatric Appointment Comment: [id number] [facility] Pressure Controller Name of Pressure Controller: Joanne Zurita Post Discharge Appointments Primary Care Physician Name Of Family Doctor: Jorge Spears Primary Care Date of Appointment with PCP: 06/26/20 Time of Appointment with PCP: 10:20 a.m. Provider Appointment Comment: [id number] [facility] Neurologist Name of Neurologist: MARITZA Li Neurologist's Date of Appointment with Neurologist: 08/20/20 Time of Appointment with Neurologist: 10:30 a.m. 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
[2020-07-08] MEDS: ATORVASTATIN 20 MG TAB PO SCH (20:26)
[2020-07-08] MEDS: cloZAPine 100 MG TAB PO SCH (20:26)
[2020-07-08] MEDS: lamoTRIgine 25 MG TAB PO SCH (20:27)
[2020-07-09 07:28] LABS: Basophils # (auto) 0.01 K/uL (0-0.2); Basophils % (auto) 0.2 %; Eosinophils # (auto) 0.27 K/uL (0-0.5); Eosinophils % (auto) 4.9 %; Hematocrit (blood only) 39.8 % (37-47); Hemoglobin 13.2 g/dL (12.0-16.0); Immature Granulocytes # (auto) 0.01 K/uL (0.00-0.02); Immature Granulocytes % (auto) 0.2 %; Lymphocytes # (auto) 1.94 K/uL (1.2-3.4); Lymphocytes % (auto) 34.9 %; Mean Corpuscular Hemoglobin 29.8 pg (25-34); Mean Corpuscular Hgb Conc 33.2 g/dL (32-36); Mean Corpuscular Volume 89.8 fL (80-100); Mean Platelet Volume 11.8 fL (7.4-10.4); Monocytes # (auto) 0.37 K/uL (0.11-0.59); Monocytes % (auto) 6.7 %; Neutrophils # (auto) 2.96 K/uL (1.4-6.5); Neutrophils % (auto) 53.1 %; Platelet Count 192 K/uL (130-400); RDW Coefficient of Variation 12.9 % (11.5-14.5); RDW Standard Deviation 42.1 fL (36.4-46.3); Red Blood Count 4.43 M/uL (4.2-5.4); White Blood Count 5.56 K/uL (4.8-10.8)
[2020-07-09] MEDS: ASPIRIN 81 MG ECTAB PO SCH (08:13)
[2020-07-09] MEDS: FLUoxetine HCL 10 MG CAP PO SCH (08:13)
[2020-07-09] MEDS: LEVOTHYROXINE SODIUM 100 MCG TABLET PO SCH (08:13)
[2020-07-09] MEDS: PROPRANOLOL HCL 10 MG TAB PO SCH ×2 (08:13→20:30)
[2020-07-09] MEDS: GABAPENTIN 300 MG CAP PO SCH ×3 (08:13→20:30)
[2020-07-09] MEDS: MULTIVITAMIN TAB PO SCH (08:13)
--- NOTE | 2020-07-09 09:10 | Psychiatric Progress Note ---
Date of Service July 09, 2020 Impression / Recommendations Impression 60-year-old female with a history of bipolar disorder type I, tardive dyskinesia, and decompensation over the past month and a half with impaired memory, multiple falls, dysarthria, and hallucinations. She had multiple ER visits at the end of April for falls and physical weakness, and due to lithium toxicity her lithium was discontinued, and due to EPS and tardive dyskinesia, Latuda was discontinued, and she was started on lamotrigine. Although lamotrigine was started at the end of April, it was just increased to 50 mg daily 06/06, and Vraylar 1.5 mg added. Her son brought her into the ER due to increasing confusion, incontinence, falls, and hallucinations. We are continuing standard titration of lamotrigine and attempting to limit overuse of antipsychotic medications given TD. Course of treatment has been complicated by encephalopathy, tardive dyskinesia, falls, and multiple medical problems. Vraylar was initially titrated, but was ineffective, so clozapine trial was started 07/02/2020. Due to severity of her tardive dyskinesia, valbenazine trial is being initiated. MRI with contrast was repeated on 07/04 due to patient's reports of visual and olfactory hallucinations and desire to rule out possible organic cause such as a space-occupying lesion, and was unremarkable. Neurological consultation was obtained as well. There was a question of patient possibly experiencing complex partial seizures due to the waxing and waning nature of her presentation, and gabapentin was increased to 300mg TID. Pt continues to be disoriented and disorganized to the point that she is unable to care for her basic needs outside of the hospital and inpatient treatment remains medically necessary. (1) Psychosis: 2/2 -complicated case, primary diagnosis unclear to me at this point. 2- month history of frequent falls, weakness, and abnormal involuntary movements. Hallucinations with fairly acute onset over the past couple of weeks, as well as memory impairment and significant disorganization on exam today. Minimal evidence of mood episode on my exam, but her outpatient clinician noted symptoms of depression at her last visit a week and a half ago. It would be very helpful to be able to monitor her symptoms around the clock. Differential includes delirium, mood related psychosis, cognitive disorder, or primary thought disorder. -Lamotrigine started a little over a month ago, and just increased to 50 mg daily a week and a half ago. We will continue the standard titration. Vraylar just started about 1 and half weeks ago, will continue 1.5 mg daily. 2 - Outpatient records reviewed and care coordinated as above. - Continue Vraylar 1.5mg daily. Fasting labs were checked 11/2019: TG 153, Hgb A1C 5.8% (est ave glucose 120). Will hold off on titrating Vraylar due to her tardive dyskinesia and fact that symptoms are improving. - AIMS today is 10; 3 for tongue movements, 2 for foot movements, 3 for overall severity, and 2 for patient awareness/mild distress. - Patient is slightly more organized in her thinking and speech today, oriented to self and place, but not time. Still confused, unable to find her room, requiring frequent redirection. She is demonstrating paranoia, sometimes directed at staff, but responded well to reassurance, and focus on her distressing emotions. 2 - Continue medication regimen as above, lamotrigine increasing to 100mg this evening. - Pt continues to be rather confused, but also paranoid. She continues to suggest that staff is talking about her, but has more recently been convinced that several family members are being locked in the various offices on the unit. - Continue attempt to limit antipsychotic medications as able, patient continues to respond well to redirection and reassurance from staff. 06/20 -The patient remains confused and floridly psychotic. Her delusions are mood congruent with depression. For example, today she tells me that she is to be punished because she has "killed [her] mother and father, and everyone in the family." She is also tearful and sobs through much of today's encounter. She also is experiencing auditory hallucinations that are consistent with the content of the delusions. -She appears not to be oriented to month or year. However, assessment of cognitive functioning is somewhat difficult because the patient is largely mute and is very quickly distracted by what appears to be auditory hallucinations. -The patient is able to tell us that her diagnosis is bipolar disorder and that she is in the hospital being treated for a mental illness. Although she claims to not know what medication she is currently taking, she was able to answer several questions regarding what medication she has or has not taken in the past. Today, reports that she has taken Prozac in the past and that has helped when she is depressed, at least to some extent. 06/20--reviewed past med trials, hesitant to use Haldol or thorazine given her TD and fall risk with latter. She refuses anyway. Did pill counts to confirm started date of Vraylar >2 weeks ago, will increase to 3 mg. Benzos are often helpful for catatonic features but need to watch gait. Start Ativan 0.5 mg TID prn and evaluate response/gait. d/c Sinequan prn as high dose and now on Prozac. d/c Vistaril given anticholinergic and also on Cogentin. Consider Trilafon if no immediate improvement on higher dose of Vraylar. 06/21--improved slightly today, will add standing order Ativan as tolerating 1 mg BID (am and evening meal) and decrease Restoril given am confusion. It is still possible that anticholinergic effects of Vistaril and ?Cogentin contributing to confusion. Will reassess Cogentin dosing tomorrow. 06/22--change Cogentin to prn, offer Trilafon BID prn to assess tolerability for additional coverage during Vraylar trial. D/C Restoril after tonight's dose. This will limit polypharmacy, case reviewed with Dr. Marks due to complexity and reconfirm impression of ongoing slow improvements. Will seek input from neurology on additional assessment here for falls and weakness with incontinence though gait and organization improving. Patient is limited historian/limited cooperation with neuro exam given psychosis. 06/24 -Multiple medication changes over the past few days, including addition of daytime lorazepam 1 mg twice daily, taper off of temazepam, increase of cariprazine to 3 mg daily, discontinuing scheduled benztropine, and addition of perphenazine 4 mg twice daily as needed. She remains on lamotrigine 100 mg daily (can be increased to 200 mg daily on 07/03/2020, per standard titration protocol). She received 4 mg perphenazine x 2 yesterday, and 1 so far today. Psychosis continues, with auditory hallucinations and paranoia/delusions of persecution. Given that we are trying to minimize antipsychotic burden due to her EPS, I will increase her lorazepam to 1 mg 3 times daily to target anxious distress and catatonia, but will need to watch for sedation and impaired gait. AIMS today is 12; 4 for tongue movements, 3 for severity, 2 for incapacitation, and 3 for patient awareness. 06/25 - Continue current medication regimen - patient does have reported moments confusion and visual hallucinations. There does seem to be a component of delirium superimposed on patient's psychosis, but unlikely to explain all of her current presentation. - During conversation today, patient is confused but not verbalizing delusions or paranoia - Neurology consult as outlined below 06/26 - Continue current medication regimen - will attempt to acquire valbenazine to target TD - Pt continues to have waxing and waning confusion, but symptoms of clinton psychosis do seem to be steadily improving - Staff continue to report concerns for gait instability - patient on formal 1:1 after sustaining minor falls 2 days ago. 06/27 -Continue current medication regimen. -The patient is continued to have waxing and waning confusion, but overall her p eriods of confusion seem to be less frequent and less prominent. -Our attempt to obtain authorization for coverage of valbenazine have been unsuccessful. We are currently appealing the decision based on the fact that patient's tardive dyskinesia is so severe that she has trouble ingesting food and communicating orally. -Patient has been taken off one-to-one, but she is being closely monitored by staff. The patient has demonstrated that she is being very careful when ambulating. 06/28 - Tapering lorazepam - 0.5mg at 0900 and 1400, and maintaining 1mg dose qHS. Continue Vraylar, Lamictal, and Prozac. - Pt continues to have waxing and waning of confusion - intermittently requiring staff redirection - Pt stating today that she just learned her father , and believes he is being buried today. Still intermittently believes her family is hidden around the unit. 06/29 - 07/01 - Continue current medication regimen - patient still having episodes of confusion, visual hallucinations, delusions, and paranoia. - Pt will likely require additional time to stabilize, though continues to have slow improvement. 07/02 - Will discontinue Vraylar and initiate a titration of clozapine - patient informed of common side effects and need for weekly blood monitoring and agreed to the medication change. Titration of clozapine has been ordered up to a dose of 150mg - this can be adjusted based on patient's ability to tolerate the new medication. - Clozapine [facility] [[email or web address]] enrollment ID: [id number] - Patient's dose of lamotrigine can also be increased to 150mg with tomorrow evening's dose - Pt continues to be emotionally labile with ongoing delusions/paranoia and frequent episodes of confusion. - She did report pain with urination to staff yesterday, stating it felt like previous UTI's she has experienced - UA completed, still not demonstrating concern for UTI. 07/03 - Clozapine dosing adjusted to allow for BID administration of the medication. Pt will receive 25mg BID today, dosing can continue to be titrated as tolerated. - Titrating lamotrigine to 150mg this evening - Pt continues to be emotionally labile with ongoing delusions/paranoia and frequent episodes of confusion. 07/04 -The patient has tolerated lamotrigine at 150 mg. -We will increase her dose of clozapine from 25 mg twice a day to 50 mg twice a day, beginning this evening. -The patient underwent a MRI with contrast today. This imaging study was noncontributory and was read as being essentially within normal limits. -Patient has been less emotionally labile today, and is generally pleasant on approach. However, she remains delusional and, as noted above, has been reporting that she is "seeing" the remains of a deer in her hospital bed room, and, further, she insists that she can smell the putrid smell of the rotting animal. Given that her MRI with contrast today was within normal limits we are suspecting that she may be experiencing complex partial seizures. For that reason, her dose of gabapentin is being increased to a dose of gabapentin 300 mg 3 times a day. 07/05--reviewed, Clozaril and gabapentin increased last night, missed a dose of g abapentin. 07/06--shift dosing of Clozaril to 25 mg po qam and 75 mg po qhs due to sedation, decrease hs Ativan to 0.5 mg as sleep improving and potential combined sedation with Clozaril. Will reassess daytime Ativan dosing tomorrow on lower am dose of Clozaril. 07/07--continue to shift Clozaril to hs given excessive daytime sedation and begin Ativan taper. 07/08 - Clozaril to be increased to 100mg this evening - Ativan ordered only as needed (pt has not required a prn dose since 07/04). - Staff report patient seems to be a bit less confused this morning compared to this weekend, gait seems to be more stable. 07/09 -Slow improvement noted, continue clozapine 100 mg at bedtime, and initiate trial of Ingrezza 40 mg daily for TD. -Social work to coordinate with family regarding potential for discharge later this week if she continues to improve. Has outpatient follow-up 07/23/2020, and has been referred for [employer] case management (met with Alessandro yesterday). (2) Bipolar 1 disorder: 06/17 - Historical diagnosis, previous admission for alison. Recent medication adjustments made including discontinuing lithium and starting Vraylar and lamotrigine. Continue home meds for now while gathering additional information, spoke with Tyra Higgins to coordinate care. - Referring for BCM through [employer]. 06/18 -patient appears anxious and depressed today, son expresses concerns that she has been more depressed lately, which he attributes to her loss of independence and marital discord. Continue titration of lamotrigine, increase to 100mg daily tomorrow. 06/19 - Lamotrigine to increase to 100mg this evening - continue standard titration schedule to target mood concerns - Patient continues to present as primarily depressed and anxiety, frequently tearful and distressed on the unit - though much of this is likely related to a reaction to current psychotic symptoms. 06/20 -The patient continues to appear anxious and depressed. -She appears to be tolerating the titration of lamotrigine. -Sleep remains suboptimal. Appetite remains suboptimal. -I will offer the patient a trial of fluoxetine 10 mg daily with caution, given her diagnosis of bipolar disorder. She is currently taking 2 mood stabilizing agents. 06/21 Reviewed. 06/26 - Treatment plan as outlined under "Psychosis" 06/27 -See above. 07/03 - Titrating lamotrigine to 150mg this evening. 07/04 -We also increasing gabapentin to 300 mg 3 times a day, primarily to address possible complex partial seizures, but also because it may provide some additional mood stabilization.) -Clozapine has been increased to a dose of 50 mg twice a day, starting this evening. -Some of the patient's presenting symptoms, such as apparent olfactory and visual hallucinations are not generally attributable to a diagnosis of bipolar disorder and we are continuing to investigate. 07/05--reviewed. (3) Tardive dyskinesia: 06/17 -monitor abnormal involuntary movements, consider trial of Ingrezza, although I believe it is nonformulary -Consider neurology consult for assistance with increase in falls, weakness, and abnormal movements -she was apparently referred to [facility] 4 months ago, and her appointment is sometime this month. 06/18 -patient's gait has been steady since admission, without falls. She is not demonstrating obvious signs of weakness here, is ambulating, getting in and out of chairs, and performing ADLs without difficulty. She reportedly has an outpatient neurology appointment next week, will clarify that and may not need inpatient consultation 06/21--reviewed. 06/24 -case was reviewed with neurology over the weekend, and they did not suggest any further inpatient work-up of her weakness, recurrent falls, gait difficulties, given that she had a normal brain MRI and would not currently be able to tolerate an LP. Her outpatient neurology appointment has been rescheduled for 08/20/[address] Li. 06/25 - Will request formal neurology consultation at this point, patient has had 3 minor falls during her stay with two occurring yesterday - It is likely that there is a component of delirium at play presently, but there are outpatient reports that suggest these gait disturbances and weakness was occurring prior to her medication changes/psychiatric admission - Case had been reviewed with our neurology service, would appreciate any input from formal examination and evaluation. Consult placed for "unsteady gait, multiple falls, and tardive dyskinesia" - CMP and UA re-ordered given waxing and waning confusion - pt did have UA prior to admission that appeared to be contaminated. Pt does admit to urinary frequency, but says this is not new. 06/26 - Appreciate recommendations offered by our neurology service. - They also recommend initiating valbenazine 40mg for TD symptoms - Additional labs were also recommended: will order A1c, TSH reflex free T4, vit B12 - Recommendation for outpatient neuropsychological testing referral 06/27 -Today, the patient reports that she is pleased to tell us that she believes that her tardive dyskinesia symptoms have improved somewhat, possibly after having taken [Vraylar] consistently this week. -As noted above, coverage authorization for valbenazine 40 mg daily for her severe tardive dyskinesia is inexplicably been denied, and we are appealing the decision. The decision is based on the severity of the patient's symptoms and the degree to which the adversely affect her ability to eat and communicate verbally. 06/28 - Received notification that Ingrezza 40mg has been approved - attempting to determine cost for use and specialty pharmacy that can provide the prescription. 07/01 - Ingrezza 40mg has reportedly been ordered and is being mailed to the patient's home. Family to bring in the prescription once it arrives. 07/04 -We are still awaiting receipt of Ingrezza. The patient feels that her tardive dyskinesia has improved and today she says as she did last week that she is able to eat better. -The severity of the patient's abnormal involuntary movements does seem to have improved somewhat. 07/05--reviewed. 07/09 -Ingrezza received, start 40 mg daily Risk Factors Assessment Male: No : Yes Health Problems: Yes Mental Health Diagnoses: Yes Substance Use Disorders: No Previous Psychiatric Hospitalization: Yes Hopelessness: No Smoker: No Protective Factors Assessment : Yes Responsible for Young Children: No Employed: No Supportive Family: Yes Good Rapport with Provider: Yes Interval History Identifying Information ALVARO FRAIRE is a 60-year-old F who currently lives in [place] with her , has a history of bipolar disorder type I, and was admitted on 06/16/20 22:11 on a 201 voluntary commitment for psychosis. Chief Complaint "I've been doing really good". Review of Systems Sleep Information Total Hours of Sleep: 6.5 Sleep Comments: pt on q-15 minute checks Meal Information Percent Meal Consumed - Breakfast: 100 Percent Meal Consumed - Lunch: 40 Percent Meal Consumed - Dinner: 10 Nutrition Comment: . Subjective Subjective Patient was seen & assessed and interval progress reviewed with treatment team. Staff report that overall, she appeared to be doing better yesterday, although continues to experience hallucinations (reported seeing a snake in the [place], at one point was hiding under her sink as she thought there was a shooting going on), she recovers from these episodes more rapidly and is more appropriate in her interactions with others. On my assessment today, she states that she feels she is getting better, rates her mood a 10/10, and says her thinking is clearer and she is better able to focus. Anxiety is lessening, although she felt anxious this morning after waking from a bad dream. Appetite is good, and she denies thoughts of harming herself or others. Groups are helping and she says she likes all of them. She talked to her yesterday, and thinks it went well. Physical Exam Psychiatric Orientation: alert and cooperative Apperance: appropriately dressed, appropriately groomed and appeared stated age Eye Contact: + fair eye contact Motor Behavior: steady gait and station Mouth movements, decreased from earlier in hospital stay Mild dysarthria Affect: euthymic affect and mood congruent with affect "Really good." Thought Process: goal directed thought process and linear/logical thought process Thought Content: reality based without delusions Suicidal Thoughts: denies suicidal thoughts Homicidal Thoughts: denies homicidal thoughts Hallucinations: no auditory hallucinations and no visual hallucinations Currently, but was experiencing hallucinations yesterday Cognition: attention grossly intact and language grossly intact; + recent memory not intact Insight: + fair insight Judgement: + fair judgement Vital Signs (Past 24 Hours) Last Vital Signs Temp 36.7 C 07/09/20 06:47 Pulse 83 07/09/20 06:48 Resp 16 07/09/20 06:47 BP 121/81 07/09/20 06:48 Pulse Ox 99 06/16/20 23:03 Results & Data ([facility]) Laboratory Results Laboratory Results - last 24 hr 07/09/20 07:10 WBC 5.56 RBC 4.43 Hgb 13.2 Hct 39.8 MCV 89.8 MCH 29.8 MCHC 33.2 RDW Std Deviation 42.1 RDW Coeff of Zakiya 12.9 Plt Count 192 MPV 11.8 H Immature Gran % (Auto) 0.2 Neut % (Auto) 53.1 Lymph % (Auto) 34.9 [place] % (Auto) 6.7 Eos % (Auto) 4.9 Baso % (Auto) 0.2 Neut # (Auto) 2.96 Lymph # (Auto) 1.94 [place] # (Auto) 0.37 Eos # (Auto) 0.27 Baso # (Auto) 0.01 Immature Gran # (Auto) 0.01 Current Inpatient Medications Current Inpatient Medications: Current Inpatient Medications Acetaminophen (Acetaminophen 325 Mg Tab) 650 mg PO Q4H PRN PRN Reason: Headache or Minor Fever Stop: 07/16/20 22:51 Last Admin: 07/08/20 05:43 Dose: 650 mg Documented by: Al Hydrox/Mg Hydrox/Simethicone (Aluminum/Magnesium Susp 30 Ml Udc) 30 ml PO Q4H PRN PRN Reason: GI Upset Stop: 07/16/20 22:51 Aspirin (Aspirin 81 Mg Ectab) 81 mg PO DAILY DONNIE Stop: 07/18/20 08:59 Last Admin: 07/09/20 08:13 Dose: 81 mg Documented by: Atorvastatin Calcium (Atorvastatin 20 Mg Tab) 20 mg PO HS DONNIE Stop: 07/17/20 21:59 Last Admin: 07/08/20 20:26 Dose: 20 mg Documented by: Benztropine Mesylate (Benztropine Mesylate 1 Mg Tab) 1 mg PO BID PRN PRN Reason: Muscle Spasm Stop: 07/17/20 20:59 Last Admin: 07/03/20 07:26 Dose: 1 mg Documented by: Bismuth Subsalicylate (Bismuth Subsalicylate Liqd 236 Ml) 15 ml PO PRN PRN PRN Reason: Loose Stool Stop: 07/16/20 22:51 Clozapine (Clozapine 100 Mg Tab) 100 mg PO [facility] Stop: 08/07/20 21:59 Last Admin: 07/08/20 20:26 Dose: 100 mg Documented by: Fluoxetine HCl (Fluoxetine Hcl 10 Mg Cap) 10 mg PO QAM [facility] Stop: 07/20/20 10:14 Last Admin: 07/09/20 08:13 Dose: 10 mg Documented by: Gabapentin (Gabapentin 300 Mg Cap) 300 mg PO TID DONNIE Stop: 08/03/20 13:59 Last Admin: 07/09/20 08:13 Dose: 300 mg Documented by: Lamotrigine (Lamotrigine 25 Mg Tab) 150 mg PO [facility] Stop: 08/03/20 21:59 Last Admin: 07/08/20 20:27 Dose: 150 mg Documented by: Levothyroxine Sodium (Levothyroxine Sodium 100 Mcg Tablet) 100 mcg PO DAILYBB DONNIE Stop: 07/18/20 07:59 Last Admin: 07/09/20 08:13 Dose: 100 mcg Documented by: Lorazepam (Lorazepam 0.5 Mg Tab) 0.5 mg PO TID PRN PRN Reason: anxiety Stop: 07/21/20 11:00 Last Admin: 07/04/20 17:19 Dose: 0.5 mg Documented by: Magnesium Hydroxide (Magnesium Hydroxide Susp 30 Ml Udc) 30 ml PO DAILY PRN PRN Reason: Constipation Stop: 07/16/20 22:51 Miscellaneous (Ingrezza- Order Awaiting Action) 1 ea N/A QS [facility] Stop: 08/08/20 15:59 Multivitamins (Multivitamin Tab) 1 tab PO QAM [facility] Stop: 08/01/20 08:59 Last Admin: 07/09/20 08:13 Dose: 1 tab Documented by: Perphenazine (Perphenazine 2 Mg Tablet) 4 mg PO BID PRN PRN Reason: paranoia Stop: 07/23/20 20:59 Last Admin: 07/02/20 01:14 Dose: 4 mg Documented by: Propranolol HCl (Propranolol Hcl 10 Mg Tab) 10 mg PO BID DONNIE Stop: 07/17/20 20:59 Last Admin: 07/09/20 08:13 Dose: 10 mg Documented by: Sodium Chloride (Sodium Chloride 0.65% Na Soln 45 Ml (Mono)) 1 - 2 sprays NA PRN PRN PRN Reason: Nasal Dryness/Congestion Stop: 07/16/20 22:51 Mental Health & Subst Abuse Tx Psychiatrist Name of Psychiatrist: Tyra Redmond Psychiatrist's Date of Appointment with Psychiatrist: 07/23/20 Time of Appointment with Psychiatrist: [id number] Psychiatric Appointment Comment: [id number] [facility] Press Box Custodian Name of Press Box Custodian: Joanne Zurita Post Discharge Appointments Primary Care Physician Name Of Family Doctor: Jorge [facility] Date of Appointment with PCP: 06/26/20 Time of Appointment with PCP: 10:20 a.m. Provider Appointment Comment: [phone] [facility] Neurologist Name of Neurologist: MARITZA Li Neurologist's Date of Appointment with Neurologist: 08/20/20 Time of Appointment with Neurologist: 10:30 a.m. Neurology Appointment Comment: [facility], [address] Contact Information Discharge Discharge Address: [address] [place] [address] [place] [address] (1) Psychosis Psychosis type: unspecified psychosis type Qualified Code(s): F29 - Unspecified psychosis not due to a substance or known physiological condition
[2020-07-09] MEDS: INGREZZA 40 MG PO SCH (10:46)
[2020-07-09] MEDS: cloZAPine 100 MG TAB PO SCH (20:30)
[2020-07-09] MEDS: lamoTRIgine 25 MG TAB PO SCH (20:31)
[2020-07-09] MEDS: ATORVASTATIN 20 MG TAB PO SCH (20:31)
[2020-07-10] MEDS ORDERED: ONDANSETRON 4 MG OD TAB PO PRN (08:51)
--- NOTE | 2020-07-10 09:08 | Psychiatric Progress Note ---
Date of Service July 10, 2020 Impression / Recommendations Impression 60-year-old female with a history of bipolar disorder type I, tardive dyskinesia, and decompensation over the past month and a half with impaired memory, multiple falls, dysarthria, and hallucinations. She had multiple ER visits at the end of April for falls and physical weakness, and due to lithium toxicity her lithium was discontinued, and due to EPS and tardive dyskinesia, Latuda was discontinued, and she was started on lamotrigine. Although lamotrigine was started at the end of April, it was just increased to 50 mg daily 06/06, and Vraylar 1.5 mg added. Her son brought her into the ER due to increasing confusion, incontinence, falls, and hallucinations. We are continuing standard titration of lamotrigine and attempting to limit overuse of antipsychotic medications given TD. Course of treatment has been complicated by encephalopathy, tardive dyskinesia, falls, and multiple medical problems. Vraylar was initially titrated, but was ineffective, so clozapine trial was started 07/02/2020. Due to severity of her tardive dyskinesia, valbenazine trial is being initiated. MRI with contrast was repeated on 07/04 due to patient's reports of visual and olfactory hallucinations and desire to rule out possible organic cause such as a space-occupying lesion, and was unremarkable. Neurological consultation was obtained as well. There was a question of patient possibly experiencing complex partial seizures due to the waxing and waning nature of her presentation, and gabapentin was increased to 300mg TID. Pt continues to be disoriented and disorganized to the point that she is unable to care for her basic needs outside of the hospital and inpatient treatment remains medically necessary. (1) Psychosis: 2/2 -complicated case, primary diagnosis unclear to me at this point. 2- month history of frequent falls, weakness, and abnormal involuntary movements. Hallucinations with fairly acute onset over the past couple of weeks, as well as memory impairment and significant disorganization on exam today. Minimal evidence of mood episode on my exam, but her outpatient clinician noted symptoms of depression at her last visit a week and a half ago. It would be very helpful to be able to monitor her symptoms around the clock. Differential includes delirium, mood related psychosis, cognitive disorder, or primary thought disorder. -Lamotrigine started a little over a month ago, and just increased to 50 mg daily a week and a half ago. We will continue the standard titration. Vraylar just started about 1 and half weeks ago, will continue 1.5 mg daily. 2 - Outpatient records reviewed and care coordinated as above. - Continue Vraylar 1.5mg daily. Fasting labs were checked 11/2019: TG 153, Hgb A1C 5.8% (est ave glucose 120). Will hold off on titrating Vraylar due to her tardive dyskinesia and fact that symptoms are improving. - AIMS today is 10; 3 for tongue movements, 2 for foot movements, 3 for overall severity, and 2 for patient awareness/mild distress. - Patient is slightly more organized in her thinking and speech today, oriented to self and place, but not time. Still confused, unable to find her room, requiring frequent redirection. She is demonstrating paranoia, sometimes directed at staff, but responded well to reassurance, and focus on her distressing emotions. 2 - Continue medication regimen as above, lamotrigine increasing to 100mg this evening. - Pt continues to be rather confused, but also paranoid. She continues to suggest that staff is talking about her, but has more recently been convinced that several family members are being locked in the various offices on the unit. - Continue attempt to limit antipsychotic medications as able, patient continues to respond well to redirection and reassurance from staff. 06/20 -The patient remains confused and floridly psychotic. Her delusions are mood congruent with depression. For example, today she tells me that she is to be punished because she has "killed [her] mother and father, and everyone in the family." She is also tearful and sobs through much of today's encounter. She also is experiencing auditory hallucinations that are consistent with the content of the delusions. -She appears not to be oriented to month or year. However, assessment of cognitive functioning is somewhat difficult because the patient is largely mute and is very quickly distracted by what appears to be auditory hallucinations. -The patient is able to tell us that her diagnosis is bipolar disorder and that she is in the hospital being treated for a mental illness. Although she claims to not know what medication she is currently taking, she was able to answer several questions regarding what medication she has or has not taken in the past. Today, reports that she has taken Prozac in the past and that has helped when she is depressed, at least to some extent. 06/20--reviewed past med trials, hesitant to use Haldol or thorazine given her TD and fall risk with latter. She refuses anyway. Did pill counts to confirm started date of Vraylar >2 weeks ago, will increase to 3 mg. Benzos are often helpful for catatonic features but need to watch gait. Start Ativan 0.5 mg TID prn and evaluate response/gait. d/c Sinequan prn as high dose and now on Prozac. d/c Vistaril given anticholinergic and also on Cogentin. Consider Trilafon if no immediate improvement on higher dose of Vraylar. 06/21--improved slightly today, will add standing order Ativan as tolerating 1 mg BID (am and evening meal) and decrease Restoril given am confusion. It is still possible that anticholinergic effects of Vistaril and ?Cogentin contributing to confusion. Will reassess Cogentin dosing tomorrow. 06/22--change Cogentin to prn, offer Trilafon BID prn to assess tolerability for additional coverage during Vraylar trial. D/C Restoril after tonight's dose. This will limit polypharmacy, case reviewed with Dr. Marks due to complexity and reconfirm impression of ongoing slow improvements. Will seek input from neurology on additional assessment here for falls and weakness with incontinence though gait and organization improving. Patient is limited historian/limited cooperation with neuro exam given psychosis. 06/24 -Multiple medication changes over the past few days, including addition of daytime lorazepam 1 mg twice daily, taper off of temazepam, increase of cariprazine to 3 mg daily, discontinuing scheduled benztropine, and addition of perphenazine 4 mg twice daily as needed. She remains on lamotrigine 100 mg daily (can be increased to 200 mg daily on 07/03/2020, per standard titration protocol). She received 4 mg perphenazine x 2 yesterday, and 1 so far today. Psychosis continues, with auditory hallucinations and paranoia/delusions of persecution. Given that we are trying to minimize antipsychotic burden due to her EPS, I will increase her lorazepam to 1 mg 3 times daily to target anxious distress and catatonia, but will need to watch for sedation and impaired gait. AIMS today is 12; 4 for tongue movements, 3 for severity, 2 for incapacitation, and 3 for patient awareness. 06/25 - Continue current medication regimen - patient does have reported moments confusion and visual hallucinations. There does seem to be a component of delirium superimposed on patient's psychosis, but unlikely to explain all of her current presentation. - During conversation today, patient is confused but not verbalizing delusions or paranoia - Neurology consult as outlined below 06/26 - Continue current medication regimen - will attempt to acquire valbenazine to target TD - Pt continues to have waxing and waning confusion, but symptoms of clinton psychosis do seem to be steadily improving - Staff continue to report concerns for gait instability - patient on formal 1:1 after sustaining minor falls 2 days ago. 06/27 -Continue current medication regimen. -The patient is continued to have waxing and waning confusion, but overall her p eriods of confusion seem to be less frequent and less prominent. -Our attempt to obtain authorization for coverage of valbenazine have been unsuccessful. We are currently appealing the decision based on the fact that patient's tardive dyskinesia is so severe that she has trouble ingesting food and communicating orally. -Patient has been taken off one-to-one, but she is being closely monitored by staff. The patient has demonstrated that she is being very careful when ambulating. 06/28 - Tapering lorazepam - 0.5mg at 0900 and 1400, and maintaining 1mg dose qHS. Continue Vraylar, Lamictal, and Prozac. - Pt continues to have waxing and waning of confusion - intermittently requiring staff redirection - Pt stating today that she just learned her father , and believes he is being buried today. Still intermittently believes her family is hidden around the unit. 06/29 - 07/01 - Continue current medication regimen - patient still having episodes of confusion, visual hallucinations, delusions, and paranoia. - Pt will likely require additional time to stabilize, though continues to have slow improvement. 07/02 - Will discontinue Vraylar and initiate a titration of clozapine - patient informed of common side effects and need for weekly blood monitoring and agreed to the medication change. Titration of clozapine has been ordered up to a dose of 150mg - this can be adjusted based on patient's ability to tolerate the new medication. - Clozapine [facility] enrollment ID: [id number] - Patient's dose of lamotrigine can also be increased to 150mg with tomorrow evening's dose - Pt continues to be emotionally labile with ongoing delusions/paranoia and frequent episodes of confusion. - She did report pain with urination to staff yesterday, stating it felt like previous UTI's she has experienced - UA completed, still not demonstrating concern for UTI. 07/03 - Clozapine dosing adjusted to allow for BID administration of the medication. Pt will receive 25mg BID today, dosing can continue to be titrated as tolerated. - Titrating lamotrigine to 150mg this evening - Pt continues to be emotionally labile with ongoing delusions/paranoia and frequent episodes of confusion. 07/04 -The patient has tolerated lamotrigine at 150 mg. -We will increase her dose of clozapine from 25 mg twice a day to 50 mg twice a day, beginning this evening. -The patient underwent a MRI with contrast today. This imaging study was noncontributory and was read as being essentially within normal limits. -Patient has been less emotionally labile today, and is generally pleasant on approach. However, she remains delusional and, as noted above, has been reporting that she is "seeing" the remains of a deer in her hospital bed room, and, further, she insists that she can smell the putrid smell of the rotting animal. Given that her MRI with contrast today was within normal limits we are suspecting that she may be experiencing complex partial seizures. For that reason, her dose of gabapentin is being increased to a dose of gabapentin 300 mg 3 times a day. 07/05--reviewed, Clozaril and gabapentin increased last night, missed a dose of g abapentin. 07/06--shift dosing of Clozaril to 25 mg po qam and 75 mg po qhs due to sedation, decrease hs Ativan to 0.5 mg as sleep improving and potential combined sedation with Clozaril. Will reassess daytime Ativan dosing tomorrow on lower am dose of Clozaril. 07/07--continue to shift Clozaril to hs given excessive daytime sedation and begin Ativan taper. 07/08 - Clozaril to be increased to 100mg this evening - Ativan ordered only as needed (pt has not required a prn dose since 07/04). - Staff report patient seems to be a bit less confused this morning compared to this weekend, gait seems to be more stable. 07/09 -Slow improvement noted, continue clozapine 100 mg at bedtime, and initiate trial of Ingrezza 40 mg daily for TD. -Social work to coordinate with family regarding potential for discharge later this week if she continues to improve. Has outpatient follow-up 07/23/2020, and has been referred for [facility] case management (met with Alessandro yesterday). 07/10 - Pt continues to demonstrate more consistent improvements - intermittently verbalizing visual illusions/hallucinations and confusion, but seems less paranoid/delusional. - Consider further titration of clozapine as indicated; Ingrezza started - patient reporting excessive nausea the past two days, so will refrain from further titration until this resolves - Attempt second family meeting (ideally via Zoom) in the next few days (2) Bipolar 1 disorder: 06/17 - Historical diagnosis, previous admission for alison. Recent medication adjustments made including discontinuing lithium and starting Vraylar and lamotrigine. Continue home meds for now while gathering additional information, spoke with Tyra Higgins to coordinate care. - Referring for BCM through [facility]. 06/18 -patient appears anxious and depressed today, son expresses concerns that she has been more depressed lately, which he attributes to her loss of independence and marital discord. Continue titration of lamotrigine, increase to 100mg daily tomorrow. 06/19 - Lamotrigine to increase to 100mg this evening - continue standard titration schedule to target mood concerns - Patient continues to present as primarily depressed and anxiety, frequently tearful and distressed on the unit - though much of this is likely related to a reaction to current psychotic symptoms. 06/20 -The patient continues to appear anxious and depressed. -She appears to be tolerating the titration of lamotrigine. -Sleep remains suboptimal. Appetite remains suboptimal. -I will offer the patient a trial of fluoxetine 10 mg daily with caution, given her diagnosis of bipolar disorder. She is currently taking 2 mood stabilizing agents. 06/21 Reviewed. 06/26 - Treatment plan as outlined under "Psychosis" 06/27 -See above. 07/03 - Titrating lamotrigine to 150mg this evening. 07/04 -We also increasing gabapentin to 300 mg 3 times a day, primarily to address possible complex partial seizures, but also because it may provide some additional mood stabilization.) -Clozapine has been increased to a dose of 50 mg twice a day, starting this evening. -Some of the patient's presenting symptoms, such as apparent olfactory and visual hallucinations are not generally attributable to a diagnosis of bipolar disorder and we are continuing to investigate. 07/05--reviewed. (3) Tardive dyskinesia: 06/17 -monitor abnormal involuntary movements, consider trial of Ingrezza, although I believe it is nonformulary -Consider neurology consult for assistance with increase in falls, weakness, and abnormal movements -she was apparently referred to [facility] months ago, and her appointment is sometime this month. 06/18 -patient's gait has been steady since admission, without falls. She is not demonstrating obvious signs of weakness here, is ambulating, getting in and out of chairs, and performing ADLs without difficulty. She reportedly has an outpatient neurology appointment next week, will clarify that and may not need inpatient consultation 06/21--reviewed. 06/24 -case was reviewed with neurology over the weekend, and they did not suggest any further inpatient work-up of her weakness, recurrent falls, gait difficulties, given that she had a normal brain MRI and would not currently be able to tolerate an LP. Her outpatient neurology appointment has been re scheduled for 08/20/[address] Li. 06/25 - Will request formal neurology consultation at this point, patient has had 3 minor falls during her stay with two occurring yesterday - It is likely that there is a component of delirium at play presently, but there are outpatient reports that suggest these gait disturbances and weakness was occurring prior to her medication changes/psychiatric admission - Case had been reviewed with our neurology service, would appreciate any input from formal examination and evaluation. Consult placed for "unsteady gait, multiple falls, and tardive dyskinesia" - CMP and UA re-ordered given waxing and waning confusion - pt did have UA prior to admission that appeared to be contaminated. Pt does admit to urinary frequency, but says this is not new. 06/26 - Appreciate recommendations offered by our neurology service. - They also recommend initiating valbenazine 40mg for TD symptoms - Additional labs were also recommended: will order A1c, TSH reflex free T4, vit B12 - Recommendation for outpatient neuropsychological testing referral 06/27 -Today, the patient reports that she is pleased to tell us that she believes that her tardive dyskinesia symptoms have improved somewhat, possibly after having taken [Vraylar] consistently this week. -As noted above, coverage authorization for valbenazine 40 mg daily for her severe tardive dyskinesia is inexplicably been denied, and we are appealing the decision. The decision is based on the severity of the patient's symptoms and the degree to which the adversely affect her ability to eat and communicate verbally. 06/28 - Received notification that Ingrezza 40mg has been approved - attempting to determine cost for use and specialty pharmacy that can provide the prescription. 07/01 - Ingrezza 40mg has reportedly been ordered and is being mailed to the patient's home. Family to bring in the prescription once it arrives. 07/04 -We are still awaiting receipt of Ingrezza. The patient feels that her tardive dyskinesia has improved and today she says as she did last week that she is able to eat better. -The severity of the patient's abnormal involuntary movements does seem to have improved somewhat. 07/05--reviewed. 07/09 -Ingrezza received, start 40 mg daily 07/10 - Pt reporting sudden onset of nausea yesterday and again this morning - unclear if possible side effect to Ingrezza based on timing of medication initiation. - Will refrain from titrating dose given ongoing nausea - offered ondansetron for symptomatic treatment Risk Factors Assessment Male: No : Yes Health Problems: Yes Mental Health Diagnoses: Yes Substance Use Disorders: No Previous Psychiatric Hospitalization: Yes Hopelessness: No Smoker: No Protective Factors Assessment : Yes Responsible for Young Children: No Employed: No Supportive Family: Yes Good Rapport with Provider: Yes Interval History Identifying Information ALVARO FRAIRE is a 60-year-old F who currently lives in [place] with her , has a history of bipolar disorder type I, and was admitted on 06/16/20 22:11 on a 201 voluntary commitment for psychosis. Chief Complaint "When can I go home?" Review of Systems Notes Constitutional: denied Cardiovascular: denied Respiratory: denied Gastrointestinal: reports nausea; constipation (no BM in "a few days", which patient states is abnormal) Neurological: denied Psychiatric: denies symptoms other than stated above Total of at least 10 systems reviewed, pertinent positives as above and in HPI. Sleep Information Total Hours of Sleep: 9.5 Sleep Comments: pt on q-15 minute checks Meal Information Percent Meal Consumed - Breakfast: 90 Percent Meal Consumed - Lunch: 50 Percent Meal Consumed - Dinner: 0 Nutrition Comment: Pt c/o upset stomach Subjective Subjective Patient was seen & assessed and interval progress reviewed with nursing and social work. Staff report the patient has been participating in group program tanya and with more consistently appropriate interactions with staff and peers. Plan is to schedule another family meeting to assess proximity to baseline and begin focus on concrete discharge planning. This provider did receive report from staff that patient is nauseated. Pt was seen to follow up on this issue and assess progress since admission. Pt was observed to be laying in bed, with a basin next to her. She expressed that she does not feel well. Pt states the nausea began yesterday evening and is still present this morning. She is agreeable with prn ondansetron. Pt does inquire, with some tearfulness, "when can I go home?" We discussed the improvements that are being observed and patient was reminded of anticipated length of stay discussed yesterday. Pt is agreeable with a possible family meeting this weekend, which will hopefully lead to more concrete discharge planning. Pt did become more tearful when learning that discharge is still not anticipated to be for several more days. She was encouraged to focus on feeling better physically at the moment, and then we can work toward other goals. Pt denied other needs at this time. Physical Exam Psychiatric Orientation: alert and oriented x 3 Apperance: appropriately dressed, + disheveled (unkempt as she is feeling unwell) and appeared stated age Eye Contact: + fair eye contact Motor Behavior: + EPS (TD) Speech: normal rate/rhythm/volume of speech Affect: + depressed affect and + tearful affect Pt appearing unwell - but also tearful as she expressed desire to go home Mood: + depressed mood Thought Process: goal directed thought process and + concrete thought process Thought Content: reality based without delusions; not paranoid Suicidal Thoughts: denies suicidal thoughts and denies suicidal intent Homicidal Thoughts: denies homicidal thoughts Hallucinations: no auditory hallucinations and no visual hallucinations none verbalized during today's conversation; though reports of visual illusio ns/hallucinations yesterday (seeing a snake in the hallway) Estimated Intelligence: consistent with education level Insight: + fair insight Judgement: + fair judgement Vital Signs (Past 24 Hours) Last Vital Signs Temp 36.9 C 07/10/20 06:00 Pulse 85 07/10/20 06:00 Resp 16 07/10/20 06:00 BP 153/81 H 07/10/20 06:00 Pulse Ox 99 06/16/20 23:03 Results & Data ([facility]) Current Inpatient Medications Current Inpatient Medications: Current Inpatient Medications Acetaminophen (Acetaminophen 325 Mg Tab) 650 mg PO Q4H PRN PRN Reason: Headache or Minor Fever Stop: 07/16/20 22:51 Last Admin: 07/08/20 05:43 Dose: 650 mg Documented by: Al Hydrox/Mg Hydrox/Simethicone (Aluminum/Magnesium Susp 30 Ml Udc) 30 ml PO Q4H PRN PRN Reason: GI Upset Stop: 07/16/20 22:51 Aspirin (Aspirin 81 Mg Ectab) 81 mg PO DAILY DONNIE Stop: 07/18/20 08:59 Last Admin: 07/09/20 08:13 Dose: 81 mg Documented by: Atorvastatin Calcium (Atorvastatin 20 Mg Tab) 20 mg PO HS DONNIE Stop: 07/17/20 21:59 Last Admin: 07/09/20 20:31 Dose: 20 mg Documented by: Benztropine Mesylate (Benztropine Mesylate 1 Mg Tab) 1 mg PO BID PRN PRN Reason: Muscle Spasm Stop: 07/17/20 20:59 Last Admin: 07/03/20 07:26 Dose: 1 mg Documented by: Bismuth Subsalicylate (Bismuth Subsalicylate Liqd 236 Ml) 15 ml PO PRN PRN PRN Reason: Loose Stool Stop: 07/16/20 22:51 Clozapine (Clozapine 100 Mg Tab) 100 mg PO HS DONNIE Stop: 08/07/20 21:59 Last Admin: 07/09/20 20:30 Dose: 100 mg Documented by: Fluoxetine HCl (Fluoxetine Hcl 10 Mg Cap) 10 mg PO QAM DONNIE Stop: 07/20/20 10:14 Last Admin: 07/09/20 08:13 Dose: 10 mg Documented by: Gabapentin (Gabapentin 300 Mg Cap) 300 mg PO TID DONNIE Stop: 08/03/20 13:59 Last Admin: 07/09/20 20:30 Dose: 300 mg Documented by: Lamotrigine (Lamotrigine 25 Mg Tab) 150 mg PO HS [facility] Stop: 08/03/20 21:59 Last Admin: 07/09/20 20:31 Dose: 150 mg Documented by: Levothyroxine Sodium (Levothyroxine Sodium 100 Mcg Tablet) 100 mcg PO DAILYBB [facility] Stop: 07/18/20 07:59 Last Admin: 07/09/20 08:13 Dose: 100 mcg Documented by: Lorazepam (Lorazepam 0.5 Mg Tab) 0.5 mg PO TID PRN PRN Reason: anxiety Stop: 07/21/20 11:00 Last Admin: 07/04/20 17:19 Dose: 0.5 mg Documented by: Magnesium Hydroxide (Magnesium Hydroxide Susp 30 Ml Udc) 30 ml PO DAILY PRN PRN Reason: Constipation Stop: 07/16/20 22:51 Multivitamins (Multivitamin Tab) 1 tab PO QAM [facility] Stop: 08/01/20 08:59 Last Admin: 07/09/20 08:13 Dose: 1 tab Documented by: Ingrezza 40mg Cap: Non-Formulary Patient's Own Med 1 ea PO DAILY [facility] Stop: 08/08/20 10:29 Last Admin: 07/09/20 10:46 Dose: 1 ea Documented by: Ondansetron HCl (Ondansetron 4 Mg Od Tab) 4 mg PO Q6H PRN PRN Reason: Nausea Stop: 08/09/20 08:50 Perphenazine (Perphenazine 2 Mg Tablet) 4 mg PO BID PRN PRN Reason: paranoia Stop: 07/23/20 20:59 Last Admin: 07/02/20 01:14 Dose: 4 mg Documented by: Propranolol HCl (Propranolol Hcl 10 Mg Tab) 10 mg PO BID [facility] Stop: 07/17/20 20:59 Last Admin: 07/09/20 20:30 Dose: 10 mg Documented by: Sodium Chloride (Sodium Chloride 0.65% Na Soln 45 Ml ([place])) 1 - 2 sprays NA PRN PRN PRN Reason: Nasal Dryness/Congestion Stop: 07/16/20 22:51 Mental Health & Subst Abuse Tx Psychiatrist Name of Psychiatrist: Tyra Higgins-[place] [facility] Date of Appointment with Psychiatrist: 07/23/20 Time of Appointment with Psychiatrist: [id number] Psychiatric Appointment Comment: [address] [facility] Supervisor Shuttle Fitting Name of Supervisor Shuttle Fitting: Nancy Zurita Post Discharge Appointments Primary Care Physician Name Of Family Doctor: Jorge Spears [facility] Date of Appointment with PCP: 06/26/20 Time of Appointment with PCP: 10:20 a.m. Provider Appointment Comment: [address] [facility] Neurologist Name of Neurologist: MARITZA Li Neurologist's Date of Appointment with Neurologist: 08/20/20 Time of Appointment with Neurologist: 10:30 a.m. Neurology Appointment Comment: [facility] [address] Contact Information Discharge Discharge Address: [address] [place] [address] [place] [address] (1) Psychosis Psychosis type: unspecified psychosis type Qualified Code(s): F29 - Unspecified psychosis not due to a substance or known physiological condition
[2020-07-10] MEDS: ASPIRIN 81 MG ECTAB PO SCH (10:07)
[2020-07-10] MEDS: GABAPENTIN 300 MG CAP PO SCH ×3 (10:07→22:09)
[2020-07-10] MEDS: MULTIVITAMIN TAB PO SCH (10:07)
[2020-07-10] MEDS: LEVOTHYROXINE SODIUM 100 MCG TABLET PO SCH (10:07)
[2020-07-10] MEDS: PROPRANOLOL HCL 10 MG TAB PO SCH ×2 (10:08→22:10)
[2020-07-10] MEDS: FLUoxetine HCL 10 MG CAP PO SCH (10:08)
[2020-07-10] MEDS: INGREZZA 40 MG PO SCH (10:09)
[2020-07-10] MEDS: ACETAMINOPHEN 325 MG TAB PO PRN (14:47)
[2020-07-10] MEDS: cloZAPine 100 MG TAB PO SCH (22:07)
[2020-07-10] MEDS: lamoTRIgine 25 MG TAB PO SCH (22:07)
[2020-07-10] MEDS: ATORVASTATIN 20 MG TAB PO SCH (22:11)
[2020-07-11] MEDS: GABAPENTIN 300 MG CAP PO SCH (08:32)
[2020-07-11] MEDS: INGREZZA 40 MG PO SCH (08:32)
[2020-07-11] MEDS: ASPIRIN 81 MG ECTAB PO SCH (08:32)
[2020-07-11] MEDS: PROPRANOLOL HCL 10 MG TAB PO SCH (08:32)
[2020-07-11] MEDS: MULTIVITAMIN TAB PO SCH (08:33)
[2020-07-11] MEDS: FLUoxetine HCL 10 MG CAP PO SCH (08:33)
[2020-07-11] MEDS: LEVOTHYROXINE SODIUM 100 MCG TABLET PO SCH (08:33)
--- NOTE | 2020-07-11 11:31 | Discharge Summary ---
Date of Service July 11, 2020 History of Present Illness Patient presented to the ER with her son Sachin, who provided all of the information. He said the patient began to decline around Thanksgi, and about a week and a half ago her outpatient clinician stopped lithium and started Vraylar and lamotrigine. Patient has been experiencing auditory and visual hallucinations of her talking to her, seeing children and a black cloud. She said she saw bugs coming out of her nose, and demonstrated paranoia that people were talking about her. She has been having difficulty expressing her thoughts, has had an increase in falls although has not been injured, and has been incontinent. Stressors include being isolated at home, lack of independence that she relies on her for transportation and financial support, and her elderly parents. She has been sleeping well, but having dreams of her stating he wants her to be with him. She reported good appetite, but has had difficulty eating due to dry mouth and problems feeding herself. She reported good compliance with medications and outpatient appointments. Admission labs notable for normal CBC, CMP, TSH 0.113 and free T4 1.43, cloudy UA with trace ketones and blood, + leukocyte esterase, > 30 WBCs, 10-20 epithelial cells, and 2+ bacteria. UDS positive for benzodiazepines. Covid test negative. She agreed to voluntary hospitalization, and was placed in a private room due to psychosis and need for staff assistance for ADLs. On my assessment today, she is a very poor historian due to extremely disorganized thoughts. She often answers with unrelated information, and demonstrates word salad at times. When asked why she came to the hospital she reference several family members and said she was having "a hard time getting out of the car, my daughter usually makes supper." She said her family was worried about her falls, but was unable to give further information. She does not know what medication she takes or what recent medication adjustments were made, and when asked about her medications, says "it's red, that one, trying to find out what's wrong with me, she's a good dresser, my cousin." Mood is "a little grudgy, I dunno, my grandkids are, my kids aren't anymore because they're grown up." She denies problems with sleep or appetite. She endorses auditory hallucinations of her 's voice, talking about "having me back, all that stuff." She reports visual hallucinations of a black cloud. She denies thoughts of harming herself or others. Goals of treatment are "my , getting blood for somebody." Physical Exam Psychiatric Orientation: alert, oriented x 3 and cooperative Apperance: appropriately dressed, appropriately groomed and appeared stated age Eye Contact: good eye contact Choreoathetoid movements consistent with tardive dyskinesia Speech: normal rate/rhythm/volume of speech Affect: euthymic affect "Pretty good." Thought Process: goal directed thought process Thought Content: reality based without delusions Suicidal Thoughts: denies suicidal thoughts Homicidal Thoughts: denies homicidal thoughts Hallucinations: no auditory hallucinations, no visual hallucinations, no tactile hallucinations and no gustatory hallucinations The patient did experience what were determined to be olfactory hallucinations earlier in the hospitalization, but she indicates that these have resolved. Cognition: recent memory grossly intact, remote memory grossly intact and attention grossly intact Estimated Intelligence: average estimated intelligence Insight: + fair insight Judgement: + fair judgement Vital Signs (Past 24 Hours) Last Vital Signs Temp 36.7 C 07/11/20 11:02 Pulse 74 07/11/20 11:02 Resp 16 07/11/20 11:02 BP 153/81 H 07/11/20 11:02 Pulse Ox 99 07/11/20 11:02 Principal Diagnosis Bipolar 1 disorder Psychiatric Data During the course of hospitalization the patient was offered various modalities of psychiatric treatment and education. These included individual, group, recreational, family, and chemotherapy. Initially, the patient's behavior was so disorganized and so regressed that it was not possible to provide services through group or recreational therapy, and the focus was on individual attention and support. The patient's family was actively involved and clearly concerned. She was continued on her outpatient dose of Vraylar, namely 1.5 mg daily. The patient demonstrated prominent abnormal involuntary movements consistent with tardive dyskinesia, and she scored a 10 on the abnormal involuntary movement scale. The severity of her abnormal involuntary movements were such that she sometimes found it difficult to eat because her tongue movements would often eject food as she attempted to swallow. She also had trouble speaking at times because of the abnormal movements. We applied for a supply of Ingrezza, not on the formulary of the hospital. The initial application was denied, but on appeal with her insurance provider Ingrezza was authorized, presumably given the severity of her symptoms and the functional deficits that were attributable to them. Eventually, Ingrezza was sent to the patient's family and the family brought the medication in for us to provided to her in the hospital. She was given Ingrezza 40 mg a day and had substantial improvement in her tardive dyskinesia symptoms, such that she was able to attend to activities of daily living such as eating without ejecting her food or having difficulty swallowing. She had been taking lamotrigine 50 mg daily prior to admission, and lamotrigine, as a mood stabilizer, was gradually titrated to 150 mg daily, and the patient tolerated it well. She has been made aware and reminded of the risk of Jimenez-Wu syndrome and notes that she is periodically monitoring herself for rashes. Nursing staff also are monitoring and have seen no evidence of any adverse effect associated with lamotrigine, including rashes. The patient's affect ranged from extremely depressed and tearful to catatonic. Although the patient carries a diagnosis of bipolar disorder, it was determined that an antidepressant medication was indicated, particularly within the context of the provision of mood stabilizing medications. Accordingly, Prozac 10 mg a day was added, and the patient eventually reported that she felt that this medication was helping her with her mood. She also told us that in the past Prozac it helped, so there may have been a placebo effect as well. The patient had been taking Sinequan prior to admission and this was continued for time during the hospitalization, but was discontinued after Prozac was added. For catatonic symptoms, the patient was temporarily placed on lorazepam 1 mg twice daily. Once that catatonic symptoms were resolved lorazepam was discontinued. Patient also been given temazepam for sleep, but eventually this medication was discontinued (given the sedative effect of her other bedtime medications and the fact that it was no longer needed). One of the prominent behaviors observed during the hospitalization was the fact that the patient repeatedly claimed that she had seen family members in various locations on the unit, including through the glass windows of the nursing station. She also would insist that various relatives, including her parents, or being locked behind close doors on the unit. And she would sometimes [place] into the nursing station and say things such as, "I saw the baby! Where did you put it?" She remained to fall risk, in part because of her tardive dyskinesia, and had several witnessed falls during hospitalization. She was placed on one-to-one precautions because of her fall risk, and as the patient became more behaviorally controlled her willingness and ability to ambulate with caution improved. However, within the context of the fact that she has a history of frequent falls, including falls prior to the admission, the fact that the patient's confusion seem to wax and wane, as well as the fact the patient would periodically insist that she had "seeing" things that were not there, and/or that she could "smell" such things as the smell of a rotting deer she also claims she could see, we ordered and achieved a MRI with contrast to rule out any space-occupying lesion or evidence of an intracranial bleed. The findings on the MRI were noncontributory. The third week of hospitalization, when the patient continued to voice delusional beliefs, often of a paranoid content, and also of themes congruent with depression ("I have killed my whole family! I should go to skilled nursing!") At the beginning of the third week of the hospitalization Vraylar was discontinued in favor of clozapine. Following appropriate laboratory investigations, clozapine was started and eventually tapered 200 mg at bedtime. The patient's underlying psychosis improved substantially with clozapine at a higher dose. We also prescribed gabapentin 100 mg 3 times initially. This medication was increased to 300 mg 3 times a day after of the MRI was read as being essentially within normal limits, and we were left to surmise that the organic symptoms that we were observing may have been attributable to complex partial seizures with visual and olfactory disturbances and waxing and waning fusion. The patient's response to the higher dose of gabapentin was associated with a dimming admission and eventual resolution of her report that she was "seeing" and/or "smelling" things that were not actually present, and her waxing and waning episodes of confusion (often confusion of sudden onset) similarly went into remission. Following d iscussions with the patient's family, represented by her son, Sachin, and a review of the patient's current mental status and response to treatment it was determined that the patient had received maximum benefit from inpatient psychiatric hospitalization and arrangements were made for her to be discharged from the hospital. She has been given an appointment with her primary care provider, and will need to have weekly CBCs with differential for at least the next 6 months (afterwards, if stable, she can decrease the frequency of the CBCs to every 2 weeks, and then after 12 months, if the absolute neutrophil count remains within normal limits, the frequency can further be decreased to once a month. Patient was advised that symptomatic relapse may be successfully addressed titrating her dose of clozapine and/or gabapentin. Day of Discharge Assessment At discharge, the patient was found to be appropriately dressed and groomed. She was pleasant and fully cooperative with the interview. She smiled frequently and appropriately, and she even joked a little. Her speech remains slightly dysarthric because of persistent symptoms of tardive dyskinesia, but she has quite clearly responded very favorably to Ingrezza. The speech was spontaneous and delivered at a normal rate and volume. The patient expresses pleasure at the reduction in her tardive dyskinesia symptoms and indicates that she had become so used to the symptoms that now she is having to "learn again how to talk" without some any abnormal involuntary oral movements. The justino sandoval's thought processes demonstrated tight associations. There is no evidence of any delusional material in the patient's thought content. When asked about the fact that she had previously been insisting that we were "locking [family members] up here in the hospital and keeping him prisoner," the patient smiled and said, "I was pretty confused for a long time. I know you are doing that." She reports that she is not hearing, seeing, or smelling things that other people cannot hear, see or smell, and the staff reports that the patient has not had reference to any of these perceptual disturbances for several days now. The patient does have insight into her illness, knows her diagnosis, is correctly able to identify target symptoms that were present at admission, and has full insight into her need to remain adherent with psychiatric treatment on an outpatient basis. Her judgment is assessed as being fair to good. The patient's intelligence is at least average. Transition of Care Transition Of Care Record: was reviewed with the patient Advance Directives Advance Directives Information Provided: Yes Advance Directives: No Mental Health Advance Directive: No Advance Directives on File: No Living Will: No Power of Senior Java Software Developer: No Advance Directives Reason:: Declines as Mental Health Visit. Risk Factors Assessment Psychotic illness. Tardive dyskinesia with increased fall and choking risk. 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 These are medically necessary in order to maintain improvement and achieve recovery. Total Time Total Time Spent: Greater Than 30 Minutes Total Time Includes: Examination of the patient, Discharge Planning, Medication Reconciliation and Communication with other providers Discharge Data Consultations 06/25/20 08:28 Consult Neurology Routine Lab Results 06/16/20 06/16/20 06/16/20 18:05 18:05 18:05 WBC 6.69 RBC 4.63 Hgb 13.8 Hct 41.2 MCV 89.0 MCH 29.8 MCHC 33.5 RDW Std Deviation 39.9 RDW Coeff of Zakiya 12.5 Plt Count 215 MPV 10.9 H Immature Gran % (Auto) 0.0 Neut % (Auto) 54.7 Lymph % (Auto) 28.3 [place] % (Auto) 9.4 Eos % (Auto) 7.2 Baso % (Auto) 0.4 Neut # (Auto) 3.66 Lymph # (Auto) 1.89 [place] # (Auto) 0.63 H Eos # (Auto) 0.48 Baso # (Auto) 0.03 Immature Gran # (Auto) 0.00 Sodium 141 Potassium 3.6 Chloride 108 H Carbon Dioxide 29 Anion Gap 4.0 BUN 18 Creatinine 0.99 Est Cr Clr Drug Dosing 54.0 Est GFR ( Amer) 70.8 Est GFR (Non-Af Amer) 61.1 BUN/Creatinine Ratio 18.2 Glucose 104 H Estimat Average Glucose Hemoglobin A1c Calcium 9.6 Total Bilirubin 0.6 AST 18 ALT 33 Alkaline Phosphatase 113 Total Protein 7.4 Albumin 3.8 Globulin 3.6 Albumin/Globulin Ratio 1.1 Vitamin B12 TSH 0.113 L Free T4 1.43 Urine Color Urine Appearance Urine pH Ur Specific [place] Urine Protein Urine Glucose (UA) Urine Ketones Urine Blood Urine Nitrite Urine Bilirubin Urine Urobilinogen Ur Leukocyte Esterase Urine WBC (Auto) Urine RBC (Auto) U Hyaline Cast (Auto) U Epithel Cells (Auto) Urine Bacteria (Auto) Salicylates < 1.7 L Urine Opiates Screen Ur Methadone, Qual Acetaminophen < 2 L Urine Barbiturates Ur Phencyclidine (PCP) U Amphetamin/Meth Scrn MDMA (Ecstasy) Screen U OH-Alprazolam Confrm U Benzodiazepines Scrn 7-Amino Clonazepam Ur Nordiazepam Confirm U OH-ethylflurazepam U Lorazepam Cnf GC/MS U Oxazepam Confm GC/MS Ur Temazepam Confirm U OH-Triazolam Confirm U OH-Midazolam Confirm Barron < 0.2 L Ur Cocaine Metabolite U Marijuana (THC) Screen Drug Screen Comment Ethyl Alcohol mg/dL SARS-CoV-2 Ag (Rapid) 06/16/20 06/16/20 06/16/20 18:05 18:13 19:25 WBC RBC Hgb Hct MCV MCH MCHC RDW Std Deviation RDW Coeff of Zakiya Plt Count MPV Immature Gran % (Auto) Neut % (Auto) Lymph % (Auto) [place] % (Auto) Eos % (Auto) Baso % (Auto) Neut # (Auto) Lymph # (Auto) [place] # (Auto) Eos # (Auto) Baso # (Auto) Immature Gran # (Auto) Sodium Potassium Chloride Carbon Dioxide Anion Gap BUN Creatinine Est Cr Clr Drug Dosing Est GFR ( Amer) Est GFR (Non-Af Amer) BUN/Creatinine Ratio Glucose Estimat Average Glucose Hemoglobin A1c Calcium Total Bilirubin AST ALT Alkaline Phosphatase Total Protein Albumin Globulin Albumin/Globulin Ratio Vitamin B12 TSH Free T4 Urine Color Yellow Urine Appearance Cloudy A Urine pH 6.0 Ur Specific [place] 1.009 Urine Protein Negative Urine Glucose (UA) Negative Urine Ketones Trace H Urine Blood Trace H Urine Nitrite Positive A Urine Bilirubin Negative Urine Urobilinogen Negative Ur Leukocyte Esterase 3+ H Urine WBC (Auto) >30 H Urine RBC (Auto) 0-4 U Hyaline Cast (Auto) 5-10 H U Epithel Cells (Auto) 10-20 H Urine Bacteria (Auto) 2+ H Salicylates Urine Opiates Screen Ur Methadone, Qual Acetaminophen Urine Barbiturates Ur Phencyclidine (PCP) U Amphetamin/Meth Scrn MDMA (Ecstasy) Screen U OH-Alprazolam Confrm U Benzodiazepines Scrn 7-Amino Clonazepam Ur Nordiazepam Confirm U OH-ethylflurazepam U Lorazepam Cnf GC/MS U Oxazepam Confm GC/MS Ur Temazepam Confirm U OH-Triazolam Confirm U OH-Midazolam Confirm Barron Ur Cocaine Metabolite U Marijuana (THC) Screen Drug Screen Comment Ethyl Alcohol mg/dL < 3.0 SARS-CoV-2 Ag (Rapid) Negative 06/16/20 06/16/20 06/25/20 19:25 19:25 08:38 WBC 11.73 H RBC 5.03 Hgb 15.0 Hct 44.2 MCV 87.9 MCH 29.8 MCHC 33.9 RDW Std Deviation 40.0 RDW Coeff of Zakiya 12.5 Plt Count 300 MPV 10.6 H Immature Gran % (Auto) 0.3 Neut % (Auto) 73.1 Lymph % (Auto) 17.2 [place] % (Auto) 6.0 Eos % (Auto) 3.2 Baso % (Auto) 0.2 Neut # (Auto) 8.59 H Lymph # (Auto) 2.02 [place] # (Auto) 0.70 H Eos # (Auto) 0.37 Baso # (Auto) 0.02 Immature Gran # (Auto) 0.03 H Sodium Potassium Chloride Carbon Dioxide Anion Gap BUN Creatinine Est Cr Clr Drug Dosing Est GFR ( Amer) Est GFR (Non-Af Amer) BUN/Creatinine Ratio Glucose Estimat Average Glucose Hemoglobin A1c Calcium Total Bilirubin AST ALT Alkaline Phosphatase Total Protein Albumin Globulin Albumin/Globulin Ratio Vitamin B12 TSH Free T4 Urine Color Urine Appearance Urine pH Ur Specific [place] Urine Protein Urine Glucose (UA) Urine Ketones Urine Blood Urine Nitrite Urine Bilirubin Urine Urobilinogen Ur Leukocyte Esterase Urine WBC (Auto) Urine RBC (Auto) U Hyaline Cast (Auto) U Epithel Cells (Auto) Urine Bacteria (Auto) Salicylates Urine Opiates Screen Neg Ur Methadone, Qual Neg Acetaminophen Urine Barbiturates Neg Ur Phencyclidine (PCP) Neg U Amphetamin/Meth Scrn Neg MDMA (Ecstasy) Screen Neg U OH-Alprazolam Confrm NEGATIVE U Benzodiazepines Scrn Pos H 7-Amino Clonazepam NEGATIVE Ur Nordiazepam Confirm NEGATIVE U OH-ethylflurazepam NEGATIVE U Lorazepam Cnf GC/MS NEGATIVE U Oxazepam Confm GC/MS >2000 H Ur Temazepam Confirm >2000 H U OH-Triazolam Confirm NEGATIVE U OH-Midazolam Confirm NEGATIVE Barron Ur Cocaine Metabolite Neg U Marijuana (THC) Screen Neg Drug Screen Comment SEE NOTE Ethyl Alcohol mg/dL SARS-CoV-2 Ag (Rapid) 06/25/20 06/25/20 06/26/20 08:38 12:45 10:30 WBC RBC Hgb Hct MCV MCH MCHC RDW Std Deviation RDW Coeff of Zakiya Plt Count MPV Immature Gran % (Auto) Neut % (Auto) Lymph % (Auto) [place] % (Auto) Eos % (Auto) Baso % (Auto) Neut # (Auto) Lymph # (Auto) [place] # (Auto) Eos # (Auto) Baso # (Auto) Immature Gran # (Auto) Sodium 141 Potassium 3.9 Chloride 106 Carbon Dioxide 26 Anion Gap 8.0 BUN 14 Creatinine 1.02 Est Cr Clr Drug Dosing 52.4 Est GFR ( Amer) 68.3 Est GFR (Non-Af Amer) 58.9 BUN/Creatinine Ratio 13.5 Glucose 170 H Estimat Average Glucose 120 Hemoglobin A1c 5.8 H Calcium 9.6 Total Bilirubin 0.8 AST 25 ALT 44 Alkaline Phosphatase 122 H Total Protein 7.5 Albumin 4.0 Globulin 3.5 Albumin/Globulin Ratio 1.1 Vitamin B12 TSH Free T4 Urine Color Yellow Urine Appearance Clear Urine pH 7.0 Ur Specific [place] 1.010 Urine Protein Negative Urine Glucose (UA) Negative Urine Ketones Negative Urine Blood Negative Urine Nitrite Negative Urine Bilirubin Negative Urine Urobilinogen Negative Ur Leukocyte Esterase Negative Urine WBC (Auto) Urine RBC (Auto) U Hyaline Cast (Auto) U Epithel Cells (Auto) Urine Bacteria (Auto) Salicylates Urine Opiates Screen Ur Methadone, Qual Acetaminophen Urine Barbiturates Ur Phencyclidine (PCP) U Amphetamin/Meth Scrn MDMA (Ecstasy) Screen U OH-Alprazolam Confrm U Benzodiazepines Scrn 7-Amino Clonazepam Ur Nordiazepam Confirm U OH-ethylflurazepam U Lorazepam Cnf GC/MS U Oxazepam Confm GC/MS Ur Temazepam Confirm U OH-Triazolam Confirm U OH-Midazolam Confirm Barron Ur Cocaine Metabolite U Marijuana (THC) Screen Drug Screen Comment Ethyl Alcohol mg/dL SARS-CoV-2 Ag (Rapid) 06/26/20 06/26/20 07/01/20 10:30 10:30 Unknown WBC RBC Hgb Hct MCV MCH MCHC RDW Std Deviation RDW Coeff of Zakiya Plt Count MPV Immature Gran % (Auto) Neut % (Auto) Lymph % (Auto) [place] % (Auto) Eos % (Auto) Baso % (Auto) Neut # (Auto) Lymph # (Auto) [place] # (Auto) Eos # (Auto) Baso # (Auto) Immature Gran # (Auto) Sodium Potassium Chloride Carbon Dioxide Anion Gap BUN Creatinine Est Cr Clr Drug Dosing Est GFR ( Amer) Est GFR (Non-Af Amer) BUN/Creatinine Ratio Glucose Estimat Average Glucose Hemoglobin A1c Calcium Total Bilirubin AST ALT Alkaline Phosphatase Total Protein Albumin Globulin Albumin/Globulin Ratio Vitamin B12 590 TSH 0.750 Free T4 Urine Color Yellow Urine Appearance Clear Urine pH 6.5 Ur Specific [place] 1.007 Urine Protein Negative Urine Glucose (UA) Negative Urine Ketones Negative Urine Blood Negative Urine Nitrite Negative Urine Bilirubin Negative Urine Urobilinogen Negative Ur Leukocyte Esterase Negative Urine WBC (Auto) Urine RBC (Auto) U Hyaline Cast (Auto) U Epithel Cells (Auto) Urine Bacteria (Auto) Salicylates Urine Opiates Screen Ur Methadone, Qual Acetaminophen Urine Barbiturates Ur Phencyclidine (PCP) U Amphetamin/Meth Scrn MDMA (Ecstasy) Screen U OH-Alprazolam Confrm U Benzodiazepines Scrn 7-Amino Clonazepam Ur Nordiazepam Confirm U OH-ethylflurazepam U Lorazepam Cnf GC/MS U Oxazepam Confm GC/MS Ur Temazepam Confirm U OH-Triazolam Confirm U OH-Midazolam Confirm Barron Ur Cocaine Metabolite U Marijuana (THC) Screen Drug Screen Comment Ethyl Alcohol mg/dL SARS-CoV-2 Ag (Rapid) 07/02/20 07/09/20 10:14 07:10 WBC 8.09 5.56 RBC 4.79 4.43 Hgb 14.2 13.2 Hct 41.9 39.8 MCV 87.5 89.8 MCH 29.6 29.8 MCHC 33.9 33.2 RDW Std Deviation 40.0 42.1 RDW Coeff of Zakiya 12.5 12.9 Plt Count 258 192 MPV 11.0 H 11.8 H Immature Gran % (Auto) 0.1 0.2 Neut % (Auto) 57.3 53.1 Lymph % (Auto) 29.7 34.9 [place] % (Auto) 7.5 6.7 Eos % (Auto) 5.2 4.9 Baso % (Auto) 0.2 0.2 Neut # (Auto) 4.63 2.96 Lymph # (Auto) 2.40 1.94 [place] # (Auto) 0.61 H 0.37 Eos # (Auto) 0.42 0.27 Baso # (Auto) 0.02 0.01 Immature Gran # (Auto) 0.01 0.01 Sodium Potassium Chloride Carbon Dioxide Anion Gap BUN Creatinine Est Cr Clr Drug Dosing Est GFR ( Amer) Est GFR (Non-Af Amer) BUN/Creatinine Ratio Glucose Estimat Average Glucose Hemoglobin A1c Calcium Total Bilirubin AST ALT Alkaline Phosphatase Total Protein Albumin Globulin Albumin/Globulin Ratio Vitamin B12 TSH Free T4 Urine Color Urine Appearance Urine pH Ur Specific [place] Urine Protein Urine Glucose (UA) Urine Ketones Urine Blood Urine Nitrite Urine Bilirubin Urine Urobilinogen Ur Leukocyte Esterase Urine WBC (Auto) Urine RBC (Auto) U Hyaline Cast (Auto) U Epithel Cells (Auto) Urine Bacteria (Auto) Salicylates Urine Opiates Screen Ur Methadone, Qual Acetaminophen Urine Barbiturates Ur Phencyclidine (PCP) U Amphetamin/Meth Scrn MDMA (Ecstasy) Screen U OH-Alprazolam Confrm U Benzodiazepines Scrn 7-Amino Clonazepam Ur Nordiazepam Confirm U OH-ethylflurazepam U Lorazepam Cnf GC/MS U Oxazepam Confm GC/MS Ur Temazepam Confirm U OH-Triazolam Confirm U OH-Midazolam Confirm Barron Ur Cocaine Metabolite U Marijuana (THC) Screen Drug Screen Comment Ethyl Alcohol mg/dL SARS-CoV-2 Ag (Rapid) Hospital Course (1) Psychosis: 2/2 -complicated case, primary diagnosis unclear to me at this point. 2- month history of frequent falls, weakness, and abnormal involuntary movements. Hallucinations with fairly acute onset over the past couple of weeks, as well as memory impairment and significant disorganization on exam today. Minimal evidence of mood episode on my exam, but her outpatient clinician noted symptoms of depression at her last visit a week and a half ago. It would be very helpful to be able to monitor her symptoms around the clock. Differential includes delirium, mood related psychosis, cognitive disorder, or primary thought disorder. -Lamotrigine started a little over a month ago, and just increased to 50 mg daily a week and a half ago. We will continue the standard titration. Vraylar just started about 1 and half weeks ago, will continue 1.5 mg daily. 2 - Outpatient records reviewed and care coordinated as above. - Continue Vraylar 1.5mg daily. Fasting labs were checked 11/2019: TG 153, Hgb A1C 5.8% (est ave glucose 120). Will hold off on titrating Vraylar due to her tardive dyskinesia and fact that symptoms are improving. - AIMS today is 10; 3 for tongue movements, 2 for foot movements, 3 for overall severity, and 2 for patient awareness/mild distress. - Patient is slightly more organized in her thinking and speech today, oriented to self and place, but not time. Still confused, unable to find her room, requiring frequent redirection. She is demonstrating paranoia, sometimes directed at staff, but responded well to reassurance, and focus on her distressing emotions. 2 - Continue medication regimen as above, lamotrigine increasing to 100mg this evening. - Pt continues to be rather confused, but also paranoid. She continues to suggest that staff is talking about her, but has more recently been convinced that several family members are being locked in the various offices on the unit. - Continue attempt to limit antipsychotic medications as able, patient continues to respond well to redirection and reassurance from staff. 2 -The patient remains confused and floridly psychotic. Her delusions are mood congruent with depression. For example, today she tells me that she is to be punished because she has "killed [her] mother and father, and everyone in the family." She is also tearful and sobs through much of today's encounter. She also is experiencing auditory hallucinations that are consistent with the content of the delusions. -She appears not to be oriented to month or year. However, assessment of cognitive functioning is somewhat difficult because the patient is largely mute and is very quickly distracted by what appears to be auditory hallucinations. -The patient is able to tell us that her diagnosis is bipolar disorder and that she is in the hospital being treated for a mental illness. Although she claims to not know what medication she is currently taking, she was able to answer several questions regarding what medication she has or has not taken in the past. Today, reports that she has taken Prozac in the past and that has helped when she is depressed, at least to some extent. 06/20--reviewed past med trials, hesitant to use Haldol or thorazine given her TD and fall risk with latter. She refuses anyway. Did pill counts to confirm started date of Vraylar >2 weeks ago, will increase to 3 mg. Benzos are often helpful for catatonic features but need to watch gait. Start Ativan 0.5 mg TID prn and evaluate response/gait. d/c Sinequan prn as high dose and now on Prozac. d/c Vistaril given anticholinergic and also on Cogentin. Consider Trilafon if no immediate improvement on higher dose of Vraylar. 06/21--improved slightly today, will add standing order Ativan as tolerating 1 mg BID (am and evening meal) and decrease Restoril given am confusion. It is still possible that anticholinergic effects of Vistaril and ?Cogentin contributing to confusion. Will reassess Cogentin dosing tomorrow. 06/22--change Cogentin to prn, offer Trilafon BID prn to assess tolerability for additional coverage during Vraylar trial. D/C Restoril after tonight's dose. This will limit polypharmacy, case reviewed with Dr. Marks due to complexity and reconfirm impression of ongoing slow improvements. Will seek input from neurology on additional assessment here for falls and weakness with incontinence though gait and organization improving. Patient is limited historian/limited cooperation with neuro exam given psychosis. 06/24 -Multiple medication changes over the past few days, including addition of daytime lorazepam 1 mg twice daily, taper off of temazepam, increase of cariprazine to 3 mg daily, discontinuing scheduled benztropine, and addition of perphenazine 4 mg twice daily as needed. She remains on lamotrigine 100 mg daily (can be increased to 200 mg daily on 07/03/2020, per standard titration protocol). She received 4 mg perphenazine x 2 yesterday, and 1 so far today. Psychosis continues, with auditory hallucinations and paranoia/delusions of persecution. Given that we are trying to minimize antipsychotic burden due to her EPS, I will increase her lorazepam to 1 mg 3 times daily to target anxious distress and catatonia, but will need to watch for sedation and impaired gait. AIMS today is 12; 4 for tongue movements, 3 for severity, 2 for incapacitation, and 3 for patient awareness. 06/25 - Continue current medication regimen - patient does have reported moments confusion and visual hallucinations. There does seem to be a component of delirium superimposed on patient's psychosis, but unlikely to explain all of her current presentation. - During conversation today, patient is confused but not verbalizing delusions or paranoia - Neurology consult as outlined below 06/26 - Continue current medication regimen - will attempt to acquire valbenazine to target TD - Pt continues to have waxing and waning confusion, but symptoms of clinton psychosis do seem to be steadily improving - Staff continue to report concerns for gait instability - patient on formal 1:1 after sustaining minor falls 2 days ago. 06/27 -Continue current medication regimen. -The patient is continued to have waxing and waning confusion, but overall her periods of confusion seem to be less frequent and less prominent. -Our attempt to obtain authorization for coverage of valbenazine have been unsuccessful. We are currently appealing the decision based on the fact that patient's tardive dyskinesia is so severe that she has trouble ingesting food and communicating orally. -Patient has been taken off one-to-one, but she is being closely monitored by staff. The patient has demonstrated that she is being very careful when ambulating. 06/28 - Tapering lorazepam - 0.5mg at 0900 and 1400, and maintaining 1mg dose qHS. Continue Vraylar, Lamictal, and Prozac. - Pt continues to have waxing and waning of confusion - intermittently requiring staff redirection - Pt stating today that she just learned her father , and believes he is being buried today. Still intermittently believes her family is hidden around the unit. 06/29 - 07/01 - Continue current medication regimen - patient still having episodes of confusion, visual hallucinations, delusions, and paranoia. - Pt will likely require additional time to stabilize, though continues to have slow improvement. 07/02 - Will discontinue Vraylar and initiate a titration of clozapine - patient informed of common side effects and need for weekly blood monitoring and agreed to the medication change. Titration of clozapine has been ordered up to a dose of 150mg - this can be adjusted based on patient's ability to tolerate the new medication. - Clozapine [facility] enrollment ID: [id number] - Patient's dose of lamotrigine can also be increased to 150mg with tomorrow evening's dose - Pt continues to be emotionally labile with ongoing delusions/paranoia and frequent episodes of confusion. - She did report pain with urination to staff yesterday, stating it felt like previous UTI's she has experienced - UA completed, still not demonstrating concern for UTI. 07/03 - Clozapine dosing adjusted to allow for BID administration of the medication. Pt will receive 25mg BID today, dosing can continue to be titrated as tolerated. - Titrating lamotrigine to 150mg this evening - Pt continues to be emotionally labile with ongoing delusions/paranoia and frequent episodes of confusion. 07/04 -The patient has tolerated lamotrigine at 150 mg. -We will increase her dose of clozapine from 25 mg twice a day to 50 mg twice a day, beginning this evening. -The patient underwent a MRI with contrast today. This imaging study was noncontributory and was read as being essentially within normal limits. -Patient has been less emotionally labile today, and is generally pleasant on approach. However, she remains delusional and, as noted above, has been reporting that she is "seeing" the remains of a deer in her hospital bed room, and, further, she insists that she can smell the putrid smell of the rotting animal. Given that her MRI with contrast today was within normal limits we are suspecting that she may be experiencing complex partial seizures. For that reason, her dose of gabapentin is being increased to a dose of gabapentin 300 mg 3 times a day. 07/05--reviewed, Clozaril and gabapentin increased last night, missed a dose of gabapentin. 07/06--shift dosing of Clozaril to 25 mg po qam and 75 mg po qhs due to sedation, decrease hs Ativan to 0.5 mg as sleep improving and potential combined sedation with Clozaril. Will reassess daytime Ativan dosing tomorrow on lower am dose of Clozaril. 07/07--continue to shift Clozaril to hs given excessive daytime sedation and begin Ativan taper. 07/08 - Clozaril to be increased to 100mg this evening - Ativan ordered only as needed (pt has not required a prn dose since 07/04). - Staff report patient seems to be a bit less confused this morning compared to this weekend, gait seems to be more stable. 07/09 -Slow improvement noted, continue clozapine 100 mg at bedtime, and initiate trial of Ingrezza 40 mg daily for TD. -Social work to coordinate with family regarding potential for discharge later this week if she continues to improve. Has outpatient follow-up 07/23/2020, and [facility] (met with Alessandro yesterday). 07/10 - Pt continues to demonstrate more consistent improvements - intermittently verbalizing visual illusions/hallucinations and confusion, but seems less paranoid/delusional. - Consider further titration of clozapine as indicated; Ingrezza started - patient reporting excessive nausea the past two days, so will refrain from further titration until this resolves - Attempt second family meeting (ideally via Zoom) in the next few days 07/11 - Nausea reportedly resolved today. - Dr. Callahan spoke with patient's son, Sachin, today. Family agrees that patient's target symptoms are now under reasonable control. - Patient reports that she is feeling "much better." She has insight into her various symptoms and behaviors during the hospitalization and remarks upon her improvement. - Tolerating medications well. No delusional material. No current evidence of perceptual disturbances. (2) Bipolar 1 disorder: 2/ - Historical diagnosis, previous admission for alison. Recent medication adjustments made including discontinuing lithium and starting Vraylar and lamotrigine. Continue home meds for now while gathering additional information, spoke with Tyra Higgins to coordinate care. - Referring for BCM through Joanne Zurita. 23 -patient appears anxious and depressed today, son expresses concerns that she has been more depressed lately, which he attributes to her loss of independence and marital discord. Continue titration of lamotrigine, increase to 100mg daily tomorrow. 06/19 - Lamotrigine to increase to 100mg this evening - continue standard titration schedule to target mood concerns - Patient continues to present as primarily depressed and anxiety, frequently tearful and distressed on the unit - though much of this is likely related to a reaction to current psychotic symptoms. 06/20 -The patient continues to appear anxious and depressed. -She appears to be tolerating the titration of lamotrigine. -Sleep remains suboptimal. Appetite remains suboptimal. -I will offer the patient a trial of fluoxetine 10 mg daily with caution, given her diagnosis of bipolar disorder. She is currently taking 2 mood stabilizing agents. 06/21 Reviewed. 06/26 - Treatment plan as outlined under "Psychosis" 06/27 -See above. 07/03 - Titrating lamotrigine to 150mg this evening. 07/04 -We also increasing gabapentin to 300 mg 3 times a day, primarily to address possible complex partial seizures, but also because it may provide some additional mood stabilization.) -Clozapine has been increased to a dose of 50 mg twice a day, starting this evening. -Some of the patient's presenting symptoms, such as apparent olfactory and visual hallucinations are not generally attributable to a diagnosis of bipolar disorder and we are continuing to investigate. 07/05--reviewed. 07/11 -MRI with contrast of 07/04 was WNL. Ordered because of withnessed falls and reports indicative of visual and olfactory hallucinations. -Suspect complex partial seizures. Visual and olfactory disturbances appear to have responded favorably to an increase in the patient's dose of gabapentin. -Patient describes her mood as "pretty good!" and she has now consistently demonstrated a euthymic affect without evidence of alison, hypomania, or depression. (3) Tardive dyskinesia: 06/17 -monitor abnormal involuntary movements, consider trial of Ingrezza, although I believe it is nonformulary -Consider neurology consult for assistance with increase in falls, weakness, and abnormal movements -she was apparently referred to [facility] 4 months ago, and her appointment is sometime this month. 06/18 -patient's gait has been steady since admission, without falls. She is not demonstrating obvious signs of weakness here, is ambulating, getting in and out of chairs, and performing ADLs without difficulty. She reportedly has an outpatient neurology appointment next week, will clarify that and may not need inpatient consultation 06/21--reviewed. 06/24 -case was reviewed with neurology over the weekend, and they did not suggest any further inpatient work-up of her weakness, recurrent falls, gait difficulties, given that she had a normal brain MRI and would not currently be able to tolerate an LP. Her outpatient neurology appointment has been rescheduled for 08/20/[address] Li. 06/25 - Will request formal neurology consultation at this point, patient has had 3 minor falls during her stay with two occurring yesterday - It is likely that there is a component of delirium at play presently, but there are outpatient reports that suggest these gait disturbances and weakness was occurring prior to her medication changes/psychiatric admission - Case had been reviewed with our neurology service, would appreciate any input from formal examination and evaluation. Consult placed for "unsteady gait, multiple falls, and tardive dyskinesia" - CMP and UA re-ordered given waxing and waning confusion - pt did have UA prior to admission that appeared to be contaminated. Pt does admit to urinary frequency, but says this is not new. 06/26 - Appreciate recommendations offered by our neurology service. - They also recommend initiating valbenazine 40mg for TD symptoms - Additional labs were also recommended: will order A1c, TSH reflex free T4, vit B12 - Recommendation for outpatient neuropsychological testing referral 06/27 -Today, the patient reports that she is pleased to tell us that she believes that her tardive dyskinesia symptoms have improved somewhat, possibly after having taken [Vraylar] consistently this week. -As noted above, coverage authorization for valbenazine 40 mg daily for her severe tardive dyskinesia is inexplicably been denied, and we are appealing the decision. The decision is based on the severity of the patient's symptoms and the degree to which the adversely affect her ability to eat and communicate verbally. 06/28 - Received notification that Ingrezza 40mg has been approved - attempting to determine cost for use and specialty pharmacy that can provide the prescription. 07/01 - Ingrezza 40mg has reportedly been ordered and is being mailed to the patient's home. Family to bring in the prescription once it arrives. 07/04 -We are still awaiting receipt of Ingrezza. The patient feels that her tardive dyskinesia has improved and today she says as she did last week that she is able to eat better. -The severity of the patient's abnormal involuntary movements does seem to have improved somewhat. 07/05--reviewed. 07/09 -Ingrezza received, start 40 mg daily 07/10 - Pt reporting sudden onset of nausea yesterday and again this morning - unclear if possible side effect to Ingrezza based on timing of medication initiation. - Will refrain from titrating dose given ongoing nausea - offered ondansetron for symptomatic treatment 07/11 -Nausea reportedly resolved. Will provide an as-needed supply of ondansetron for home availability at discharge. -Abnormal involuntary movements persist, but are substantially improved. Mental Health & Subst Abuse Tx Psychiatrist Name of Psychiatrist: Tyra Redmond Psychiatrist's Date of Appointment with Psychiatrist: 07/23/20 Time of Appointment with Psychiatrist: 11:20 a.m. Psychiatric Appointment Comment: [id number] [facility] Licensed Physical Therapist Name of Licensed Physical Therapist: Joanne Zurita Post Discharge Appointments Primary Care Physician Name Of Family Doctor: Jorge Spears Primary Care Date of Appointment with PCP: 07/16/20 Time of Appointment with PCP: 10:20 a.m. Provider Appointment Comment: [address] [facility] Neurologist Name of Neurologist: MARITZA Li Neurologist's Date of Appointment with Neurologist: 08/20/20 Time of Appointment with Neurologist: 10:30 a.m. Neurology Appointment Comment: [facility] Smoking Cessation Counseling Tobacco Cessation Medication Prescribed at Discharge: Not Applicable/Non-Smoker Contact Information Discharge Discharge Address: [address] [place] [address] [place] am[place] [id number] Discharge Plan Discharge Items Patient Disposition: Home - Self-Care Reason For Visit: BIPOLAR 1 D/O Discharge Diagnosis: Bipolar 1 Disorder Condition on Discharge: Fair Activity: Resume your previous activity Non-emergency contact: Primary Care Provider, Psychiatrist and Pool Finisher Call non-emergency contact if: you have any medication questions and your symptoms worsen Follow-up/Referrals: Sonja Spears DO [Primary Care Provider] - Diet: Regular Addtl Attending Provider Instructions: SPECIAL CARE INSTRUCTIONS: 1. Follow through with your scheduled aftercare appointments. If unable to keep an appointment, please call to reschedule. 2. Take your medication only as prescribed. Medication should not be changed or stopped without the approval of your doctor. In the event of worsening symptoms or concerns about side effects, contact your doctor immediately. 3. Utilize new healthy coping skills, anger management skills, and stress management skills learned during your hospitalization. Journal feelings and process them with a support person. Identify stressors or situations that may result in relapse, deterioration or inappropriate behaviors and develop a plan to deal with those issues. 4. If your coping skills are ineffective and you are in crisis, contact your outpatient providers for direction. If unable to reach your providers, please call the [facility] CRISIS LINE AT , go to the [facility] walk-in center at [address], [address], [place], or go to the closest Emergency Room. 5. Avoid alcohol and un-prescribed drugs. 6. You have been provided with the Mental Health Advance Directives Pamphlet for your review. AFTERCARE APPOINTMENTS: * Please call your insurance company prior to your scheduled appointment to confirm your aftercare providers are covered. Take your insurance information to your appointments. WHO TO CALL AND WHEN: Medical Emergencies: For questions or emergencies related to your hospital stay, please contact the Inpatient Behavioral Health Unit at [phone]. A software project manager is on-call 06/12 for the Behavioral Health Unit for emergencies At any time you feel your situation is an emergency, you may also call 911 immediately. Pending Studies at Discharge: No Stand-Alone Forms: [facility], Smoking Cessation Medications and DC Order Prescriptions: New clozapine 100 mg Tablet 100 mg PO HS Qty: 7 RF: 3 fluoxetine 10 mg Capsule 10 mg PO QAM Qty: 30 RF: 0 gabapentin 300 mg Capsule 300 mg PO TID 30 Days Qty: 90 RF: 0 ondansetron 4 mg Tablet,Disintegrating 4 mg PO Q6H PRN (Reason: Nausea) Qty: 30 RF: 1 lamotrigine 150 mg tablet 150 mg PO HS Qty: 30 RF: 0 Continued propranolol 10 mg Tablet 10 mg PO BID Qty: 60 RF: 0 atorvastatin [Lipitor] 20 mg tablet 20 mg PO HS Qty: 30 RF: 11 levothyroxine [Synthroid] 100 mcg tablet 100 mcg PO QAM RF: 0 aspirin 81 mg Tablet 81 mg PO DAILY RF: 0 Discontinued gabapentin 100 mg Capsule 100 mg PO TID Qty: 0 RF: 0 temazepam 30 mg capsule 30 mg PO HS RF: 0 doxepin 100 mg capsule 200 mg PO HS PRN (Reason: Sleep) RF: 0 hydroxyzine HCl 50 mg tablet 50 mg PO HS RF: 0 benztropine 1 mg tablet 1 mg PO BID RF: 0 Vraylar 1.5 mg Capsule 1.5 mg PO DAILY RF: 0 lamotrigine 25 mg tablet 50 mg PO HS RF: 0 Discharge Orders: Discharge Order (Routine); Ordered 07/11/20 Ordered By: Josh Callahan Admission Data Admit Date/Time: 06/16/20 22:11 Attending Provider: Josy Marks Admit Provider: Josy Marks Primary Care Provider: Sonja Spears Other Providers: Yessy Dutton Other Interventions: PSY Interdisciplinary Discharge Planning Last Done: 06/30/20 10:17 C[place] [address] D/C day mgmt > 30 min Patient Type Established History Expanded Problem Focused Exam Expanded Problem Focused Medical Decision Making Moderate Complexity Diagnoses Psychosis F29 Psychosis type: unspecified psychosis type Bipolar 1 disorder F31.9 Tardive dyskinesia G24.01 Time Spent (min) 90
[2020-07-11] MEDS ORDERED: DESTROY THIS MEDICATION ONE (11:42)
== END 2020-07-11 13:30 | disposition home or self-care (01) ==
LOC: ED 17:23 → 3S 22:11

== ENCOUNTER 2021-01-01 12:02 | Inpatient (IN) ==
[2021-01-01 13:23] LABS: Basophils # (auto) 0.01 K/uL (0-0.2); Basophils % (auto) 0.1 %; Eosinophils # (auto) 0.06 K/uL (0-0.5); Eosinophils % (auto) 0.9 %; Hematocrit (blood only) 39.4 % (37-47); Immature Granulocytes # (auto) 0.02 K/uL (0.00-0.02); Immature Granulocytes % (auto) 0.3 %; Lymphocytes # (auto) 1.03 K/uL (1.2-3.4); Lymphocytes % (auto) 15.2 %; Monocytes # (auto) 0.64 K/uL (0.11-0.59); Monocytes % (auto) 9.4 %; Neutrophils # (auto) 5.02 K/uL (1.4-6.5); Neutrophils % (auto) 74.1 %; Platelet Count 196 K/uL (130-400); RDW Coefficient of Variation 14.5 % (11.5-14.5); RDW Standard Deviation 49.8 fL (36.4-46.3); Red Blood Count 4.19 M/uL (4.2-5.4); White Blood Count 6.78 K/uL (4.8-10.8)
[2021-01-01 13:40] LABS: Alanine Aminotransferase 30 U/L (12-78); Albumin Level 3.5 gm/dl (3.4-5.0); BUN Creatinine Ratio 8.1 (10-20); Blood Urea Nitrogen 7 mg/dl (7-18); Calcium 9.4 mg/dl (8.5-10.1); Carbon Dioxide 26 mmol/L (21-32); Chloride 109 mmol/L (98-107); Est GFR (African American) 86.3 ml/min; Est GFR (Non-African American) 74.5 ml/min; Glucose 78 mg/dl (70-99); Potassium 3.9 mmol/L (3.5-5.1); Sodium 142 mmol/L (136-145)
[2021-01-01 13:44] LABS: Acetaminophen < 2 ug/ml (10-30); Salicylate < 1.7 mg/dl (2.8-20)
[2021-01-01 13:49] LABS: Appearance Urine Clear (Clear); Bilirubin Urine Negative (Negative); Blood Urine Negative (Negative); Color Urine Yellow; Glucose Urine UA Negative (Negative); Ketones Urine Trace (Negative); Leukocyte Esterase Urine Negative (Negative); Nitrite Urine Negative (Negative); Protein Urine Negative (Negative); Specific Gravity Urine 1.009 (1.000-1.030); Urobilinogen Urine Negative (Negative)
[2021-01-01 13:51] LABS: Albumin Globulin Ratio 1.1 (0.9-2); Alkaline Phosphatase 88 U/L (45-117); Aspartate Aminotransferase 18 U/L (15-37); Bilirubin,Total 0.8 mg/dl (0.2-1); Globulin 3.3 gm/dl (2.5-4.0); Total Protein 6.8 gm/dl (6.4-8.2)
[2021-01-01 14:14] LABS: Amphetamines+Metham, Urine Neg (Neg); Barbiturates, Urine Neg (Neg); Benzodiazepine, Urine Neg (Neg); Cocaine, Urine Neg (Neg); MDMA (Ecstacy), Urine Neg (Neg); Methadone, Urine Neg (Neg); Opiate, Urine Neg (Neg); Phencyclidine, Urine Neg (Neg)
--- NOTE | 2021-01-01 14:21 | Emergency Department Note ---
Impression & Plan Weakness, Bipolar 1 disorder, Tremors of nervous system ED Provider Note NAME: ALVARO FRAIRE AGE: 60 SEX: F : 1960 ARRIVES VIA: Ambulance INFORMANT: Patient, ED PROVIDER(S): Isidro Anders MD Chief Complaint: Weakness, psychosis, tremors HPI: Patient does present with concern for worsening psychosis inability care for self and weakness. The patient does present with her son at bedside as the patient did have a recent admission for acute psychosis. Prior to the admission the patient was having some difficulty with completing her activities of daily living but since her discharge the patient is having worsening tremors was virtually bedbound and unable to care for herself. The patient is not bathing, eating, or toileting without significant help from family members. The patient has been taking her medications with exception of yesterday. The patient does feel tremulous. The patient denies any fevers chills chest pains or shortness of breath. The patient reportedly had a fall 2 days prior but it was unwitnessed at that time. Patient does not take any blood thinning medications. The patient does have a known history of tardive dyskinesia and does take medication for this. ROS: See HPI for pertinent positives and negatives. A total of 10 systems were reviewed and otherwise negative. Past medical history: See below Surgical history: See below Social history: See below Physical Exam: GENERAL: Somewhat tremulous, nontoxic in appearance. EYE EXAM: Normal conjunctiva. PERRL, no anisocoria and EOM's grossly intact w/o pain. OROPHARYNX: Moist mucus membranes. Grossly normal dentition. No obvious lip smacking noted. NECK: Supple, no nuchal rigidity, no adenopathy, non-tender. No signs of meningismus. LUNGS: Clear to auscultation. Normal chest wall mechanics. HEART: NSR, no MRG. ABDOMEN: Abdomen soft, non-tender, normo-active bowel sounds, no masses, no rebound or guarding. BACK: No CVA TTP. SKIN: No rashes and no bruising. UPPER EXTREMITIES: Bilateral upper extremity tremors noted. LOWER EXTREMITIES: Grossly normal, no edema. NEURO EXAM: A&O x3, cranial nerves II-XII grossly intact, normal speech, moves all 4 extremities on command w/o issue. Differential diagnoses: Infection, dehydration, metabolic abnormality, hypo/hyperglycemia, electrolyte disturbance, anemia, hypoxia, cardiac sources, intracerebral event, toxicologic, neurologic, as well as other pathologies. Course: Patient was seen and evaluated the bedside. Full history physical exam was perf ormed. Imaging Studies: See below MDM: Patient was seen due to concern for worsening psychosis as well as inability to care for self. Blood work is obtained along with CT of the head. The patient's blood work is grossly unremarkable and the patient CT head is negative. Given the progressive decline in the patient's ability to care for self with associated psychosis I did speak with case management who recommends pursuing medical treatment as well as concomitant psychiatric treatment as an inpatient. I did speak the on-call hospitalist and the patient was admitted to the medicine service by Dr. Rodas. Past Med/Surg History Medical History Bipolar 1 disorder History of anesthesia reaction difficulty waking Hyperlipidemia Hypertension Hypothyroidism Psychosis Tardive dyskinesia UTI (urinary tract infection) Surgical History History of colonoscopy with polypectomy History of conization of cervix History of cervical conization by laser History of dilation and curettage History of foot surgery x2--right--no hardware History of hysteroscopy History of right oophorectomy History of tooth extraction all upper teeth History of tubal ligation Family History Father Type 2 diabetes mellitus Family hx colonic polyps Brother Type 2 diabetes mellitus Sister Parathyroid disorder Brother Type 2 diabetes mellitus Other No family history of adverse response to anesthesia Social History Smoking Status: Never smoker Second Hand Exposure: No; Hx Alcohol Use: No Hx Substance Use: No Preferred Language: Dutch Communication Ability: Impaired 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 Beliefs That Will Affect Care: None marital status: Current Living Situation: Spouse current occupational status: employed Feels Safe at Home: Hesitant to Answer Assistive Devices: Denture - Upper and Glasses Allergies Allergies Allergy/AdvReac Type Severity Reaction Status Date / Time Penicillins Allergy Mild Rash Verified 01/01/21 13:29 Home Meds Home Medications Medication Instructions Recorded Confirmed propranolol 10 mg tablet 20 mg PO BID #60 01/21/17 01/01/21 levothyroxine 100 mcg tablet 75 mcg PO QAM 02/04/20 01/01/21 (Synthroid) aspirin 81 mg tablet 81 mg PO DAILY 05/10/20 01/01/21 docusate sodium 100 mg capsule 100 mg PO DAILY 11/18/20 01/01/21 gabapentin 300 mg capsule 300 mg PO BID 11/18/20 01/01/21 valbenazine 40 mg capsule 80 mg HS 11/18/20 01/01/21 (Ingrezza) ergocalciferol (vitamin D2) 1,000 1,000 unit PO WK 01/01/21 01/01/21 unit capsule fluoxetine 40 mg capsule 40 mg PO QAM 01/01/21 01/01/21 lorazepam 0.5 mg tablet (Ativan) 0.5 mg PO QID PRN 01/01/21 01/01/21 paliperidone 1.5 mg 1.5 mg PO QPM 01/01/21 01/01/21 tablet,extended release 24 hr risperidone 2 mg tablet 2 mg QAM 01/01/21 01/01/21 Previous Rx's Medication Instructions Recorded atorvastatin 20 mg tablet (Lipitor) 20 mg PO HS #30 tab 05/02/20 clozapine 100 mg tablet 100 mg PO HS #7 tab 07/11/20 lamotrigine 150 mg tablet 150 mg PO HS #30 tab 07/11/20 Results & Data (ED) Vital Signs Vital Signs - 24 hr 01/01/21 12:15 01/01/21 14:15 01/01/21 16:45 Temperature 37.3 C Temperature Source Oral Pulse Rate 93 H Pulse Rate [Finger] 97 H 98 H Pulse Rhythm [Finger] Regular Pulse Strength [Finger] Normal Respiratory Rate 20 20 18 Respiratory Effort / Characteristics Non-Labored Spontaneous Non-Labored Spontaneous Respiratory Depth Normal Normal Respiratory Pattern Regular Blood Pressure 131/79 Blood Pressure [Left Arm] 157/79 H 147/61 H Blood Pressure Mean 96 Blood Pressure Mean [Left Arm] 105 89 Blood Pressure Position [Left Arm] Lying Pulse Oximetry 97 96 96 Oxygen Delivery Method Room Air Room Air Oxygen Flow Rate 0 Sepsis Recent Fever Within 48 Hours No Sepsis New/Unexplained Change in Mental Status No Sepsis Action Taken by Nursing No Action Required Home Medications Current Medication List: was personally reviewed by me Laboratory Data Attestation: I reviewed the patient's lab results. Result diagrams: 01/01/21 13:08 01/01/21 13:08 Lab Results 01/01/21 01/01/21 01/01/21 Range/Units 13:08 13:08 13:08 WBC 6.78 (4.8-10.8) K/uL RBC 4.19 L (4.2-5.4) M/uL Hgb 13.0 (12.0-16.0) g/dL Hct 39.4 (37-47) % MCV 94.0 (80-100) fL MCH 31.0 (25-34) pg MCHC 33.0 (32-36) g/dL RDW Std Deviation 49.8 H (36.4-46.3) fL RDW Coeff of Zakiya 14.5 (11.5-14.5) % Plt Count 196 (130-400) K/uL MPV 10.0 (7.4-10.4) fL Immature Gran % (Auto) 0.3 % Neut % (Auto) 74.1 % Lymph % (Auto) 15.2 % [place] % (Auto) 9.4 % Eos % (Auto) 0.9 % Baso % (Auto) 0.1 % Neut # (Auto) 5.02 (1.4-6.5) K/uL Lymph # (Auto) 1.03 L (1.2-3.4) K/uL [place] # (Auto) 0.64 H (0.11-0.59) K/uL Eos # (Auto) 0.06 (0-0.5) K/uL Baso # (Auto) 0.01 (0-0.2) K/uL Immature Gran # (Auto) 0.02 (0.00-0.02) K/uL Sodium 142 (136-145) mmol/L Potassium 3.9 (3.5-5.1) mmol/L Chloride 109 H (98-107) mmol/L Carbon Dioxide 26 (21-32) mmol/L Anion Gap 7.0 (3-11) BUN 7 (7-18) mg/dl Creatinine 0.84 (0.6-1.2) mg/dl Est Cr Clr Drug Dosing Not Reportable Est GFR ( Amer) 86.3 ml/min Est GFR (Non-Af Amer) 74.5 ml/min BUN/Creatinine Ratio 8.1 L (10-20) Glucose 78 (70-99) mg/dl Calcium 9.4 (8.5-10.1) mg/dl Total Bilirubin 0.8 (0.2-1) mg/dl AST 18 (15-37) U/L ALT 30 (12-78) U/L Alkaline Phosphatase 88 (45-117) U/L Total Protein 6.8 (6.4-8.2) gm/dl Albumin 3.5 (3.4-5.0) gm/dl Globulin 3.3 (2.5-4.0) gm/dl Albumin/Globulin Ratio 1.1 (0.9-2) TSH 1.690 (0.300-4.500) uIu/ml Urine Color Urine Appearance (Clear) Urine pH (4.5-7.5) Ur Specific Stout (1.000-1.030) Urine Protein (Negative) Urine Glucose (UA) (Negative) Urine Ketones (Negative) Urine Blood (Negative) Urine Nitrite (Negative) Urine Bilirubin (Negative) Urine Urobilinogen (Negative) Ur Leukocyte Esterase (Negative) Salicylates < 1.7 L (2.8-20) mg/dl Urine Opiates Screen (Neg) Ur Methadone, Qual (Neg) Acetaminophen < 2 L (10-30) ug/ml Urine Barbiturates (Neg) Ur Phencyclidine (PCP) (Neg) U Amphetamin/Meth Scrn (Neg) MDMA (Ecstasy) Screen (Neg) U Benzodiazepines Scrn (Neg) Ur Cocaine Metabolite (Neg) U Marijuana (THC) Screen (Neg) Ethyl Alcohol mg/dL (0-3) mg/dl COVID-19 Eval Order SARS-CoV-2, RNA, NAAT (NEGATIVE) 01/01/21 01/01/21 01/01/21 Range/Units 13:08 13:30 13:30 WBC (4.8-10.8) K/uL RBC (4.2-5.4) M/uL Hgb (12.0-16.0) g/dL Hct (37-47) % MCV (80-100) fL MCH (25-34) pg MCHC (32-36) g/dL RDW Std Deviation (36.4-46.3) fL RDW Coeff of Zakiya (11.5-14.5) % Plt Count (130-400) K/uL MPV (7.4-10.4) fL Immature Gran % (Auto) % Neut % (Auto) % Lymph % (Auto) % [place] % (Auto) % Eos % (Auto) % Baso % (Auto) % Neut # (Auto) (1.4-6.5) K/uL Lymph # (Auto) (1.2-3.4) K/uL [place] # (Auto) (0.11-0.59) K/uL Eos # (Auto) (0-0.5) K/uL Baso # (Auto) (0-0.2) K/uL Immature Gran # (Auto) (0.00-0.02) K/uL Sodium (136-145) mmol/L Potassium (3.5-5.1) mmol/L Chloride (98-107) mmol/L Carbon Dioxide (21-32) mmol/L Anion Gap (3-11) BUN (7-18) mg/dl Creatinine (0.6-1.2) mg/dl Est Cr Clr Drug Dosing Est GFR ( Amer) ml/min Est GFR (Non-Af Amer) ml/min BUN/Creatinine Ratio (10-20) Glucose (70-99) mg/dl Calcium (8.5-10.1) mg/dl Total Bilirubin (0.2-1) mg/dl AST (15-37) U/L ALT (12-78) U/L Alkaline Phosphatase (45-117) U/L Total Protein (6.4-8.2) gm/dl Albumin (3.4-5.0) gm/dl Globulin (2.5-4.0) gm/dl Albumin/Globulin Ratio (0.9-2) TSH (0.300-4.500) uIu/ml Urine Color Yellow Urine Appearance Clear (Clear) Urine pH 7.0 (4.5-7.5) Ur Specific Stout 1.009 (1.000-1.030) Urine Protein Negative (Negative) Urine Glucose (UA) Negative (Negative) Urine Ketones Trace H (Negative) Urine Blood Negative (Negative) Urine Nitrite Negative (Negative) Urine Bilirubin Negative (Negative) Urine Urobilinogen Negative (Negative) Ur Leukocyte Esterase Negative (Negative) Salicylates (2.8-20) mg/dl Urine Opiates Screen Neg (Neg) Ur Methadone, Qual Neg (Neg) Acetaminophen (10-30) ug/ml Urine Barbiturates Neg (Neg) Ur Phencyclidine (PCP) Neg (Neg) U Amphetamin/Meth Scrn Neg (Neg) MDMA (Ecstasy) Screen Neg (Neg) U Benzodiazepines Scrn Neg (Neg) Ur Cocaine Metabolite Neg (Neg) U Marijuana (THC) Screen Neg (Neg) Ethyl Alcohol mg/dL < 3.0 (0-3) mg/dl COVID-19 Eval Order SARS-CoV-2, RNA, NAAT (NEGATIVE) 01/01/21 01/01/21 Range/Units 14:55 14:55 WBC (4.8-10.8) K/uL RBC (4.2-5.4) M/uL Hgb (12.0-16.0) g/dL Hct (37-47) % MCV (80-100) fL MCH (25-34) pg MCHC (32-36) g/dL RDW Std Deviation (36.4-46.3) fL RDW Coeff of Zakiya (11.5-14.5) % Plt Count (130-400) K/uL MPV (7.4-10.4) fL Immature Gran % (Auto) % Neut % (Auto) % Lymph % (Auto) % [place] % (Auto) % Eos % (Auto) % Baso % (Auto) % Neut # (Auto) (1.4-6.5) K/uL Lymph # (Auto) (1.2-3.4) K/uL [place] # (Auto) (0.11-0.59) K/uL Eos # (Auto) (0-0.5) K/uL Baso # (Auto) (0-0.2) K/uL Immature Gran # (Auto) (0.00-0.02) K/uL Sodium (136-145) mmol/L Potassium (3.5-5.1) mmol/L Chloride (98-107) mmol/L Carbon Dioxide (21-32) mmol/L Anion Gap (3-11) BUN (7-18) mg/dl Creatinine (0.6-1.2) mg/dl Est Cr Clr Drug Dosing Est GFR ( Amer) ml/min Est GFR (Non-Af Amer) ml/min BUN/Creatinine Ratio (10-20) Glucose (70-99) mg/dl Calcium (8.5-10.1) mg/dl Total Bilirubin (0.2-1) mg/dl AST (15-37) U/L ALT (12-78) U/L Alkaline Phosphatase (45-117) U/L Total Protein (6.4-8.2) gm/dl Albumin (3.4-5.0) gm/dl Globulin (2.5-4.0) gm/dl Albumin/Globulin Ratio (0.9-2) TSH (0.300-4.500) uIu/ml Urine Color Urine Appearance (Clear) Urine pH (4.5-7.5) Ur Specific [place] (1.000-1.030) Urine Protein (Negative) Urine Glucose (UA) (Negative) Urine Ketones (Negative) Urine Blood (Negative) Urine Nitrite (Negative) Urine Bilirubin (Negative) Urine Urobilinogen (Negative) Ur Leukocyte Esterase (Negative) Salicylates (2.8-20) mg/dl Urine Opiates Screen (Neg) Ur Methadone, Qual (Neg) Acetaminophen (10-30) ug/ml Urine Barbiturates (Neg) Ur Phencyclidine (PCP) (Neg) U Amphetamin/Meth Scrn (Neg) MDMA (Ecstasy) Screen (Neg) U Benzodiazepines Scrn (Neg) Ur Cocaine Metabolite (Neg) U Marijuana (THC) Screen (Neg) Ethyl Alcohol mg/dL (0-3) mg/dl COVID-19 Eval [facility] SARS-[facility]-2, RNA, NAAT NEGATIVE (NEGATIVE) Administered Medications Discontinued Medications Lorazepam (Lorazepam 1 Mg Tab) 1 mg PO NOW STA Stop: 01/01/21 15:34 Last Admin: 01/01/21 15:51 Dose: 1 mg Documented by: [id number] Lorazepam (Lorazepam 1 Mg Tab) 1 mg PO NOW STA Stop: 01/01/21 17:56 Last Admin: 01/01/21 18:05 Dose: 1 mg Documented by: [id number] Imaging Data Radiologist's Impression: Head CT 01/01/21 17:35 CT head/brain wo con CLINICAL HISTORY: 60 years-old Female with fall. Acute head injury status post fall TECHNIQUE: Multiple axial CT images of the head were obtained without contrast. A dose lowering technique was utilized adhering to the principles of ALARA. CT DOSE: 537.48 mGy.cm COMPARISON: 05/10/2020 PET/CT, brain MRI 07/04/2020 FINDINGS: Mildly motion degraded exam. No acute intracranial hemorrhage, midline shift, intracranial mass, hydrocephalus, territorial ischemia or abnormal extra-axial collection. Mild involutional changes. The calvarium is intact. The paranasal sinuses, mastoid air cells, and middle ear cavities are clear. IMPRESSION: No acute intracranial abnormality or calvarial fracture. ACT 112: Negative or not required by law. The above report was generated using voice recognition software. It may contain grammatical, syntax or spelling errors. Electronically signed by: Damon Medrano M.D. 01/01/2021 6:25 PM Discharge Plan Visit Data Chief Complaint: Illness Stated Complaint: Dizziness ED Provider: Isidro Anders Discharge Problem: Weakness, Bipolar 1 disorder, Tremors of nervous system Forms Stand Alone Forms: My [facility] Noknoker Prescriptions Prescriptions: No Action propranolol 10 mg Tablet 20 mg PO BID Qty: 60 RF: 0 atorvastatin [Lipitor] 20 mg tablet 20 mg PO HS Qty: 30 RF: 11 levothyroxine [Synthroid] 100 mcg tablet 75 mcg PO QAM RF: 0 aspirin 81 mg Tablet 81 mg PO DAILY RF: 0 clozapine 100 mg Tablet 100 mg PO HS Qty: 7 RF: 3 lamotrigine 150 mg tablet 150 mg PO HS Qty: 30 RF: 0 docusate sodium 100 mg capsule 100 mg PO DAILY RF: 0 gabapentin 300 mg capsule 300 mg PO BID RF: 0 Ingrezza 40 mg capsule 80 mg HS RF: 0 fluoxetine 40 mg capsule 40 mg PO QAM RF: 0 risperidone 2 mg tablet 2 mg QAM RF: 0 lorazepam [Ativan] 0.5 mg Tablet 0.5 mg PO QID PRN (Reason: Anxiety) RF: 0 Vitamin D2 1,000 unit Capsule 1,000 unit PO WK RF: 0 paliperidone 1.5 mg tablet extended release 24hr 1.5 mg PO QPM RF: 0 Referrals Referrals: Sonja Spears DO [Primary Care Provider] -
[2021-01-01] MEDS ORDERED: LORazepam 1 MG TAB PO STA ×2 (15:33→17:55)
--- NOTE | 2021-01-01 18:26 | CT Scan Report ---
CT head/brain wo con CLINICAL HISTORY: 60 years-old Female with fall. Acute head injury status post fall TECHNIQUE: Multiple axial CT images of the head were obtained without contrast. A dose lowering tech nique was utilized adhering to the principles of ALARA. CT DOSE: 537.48 mGy.cm COMPARISON: 05/10/2020 PET/CT, brain MRI 07/04/2020 FINDINGS: Mildly motion degraded exam. No acute intracranial hemorrhage, midline shift, intracranial mass, hydr ocephalus, territorial ischemia or abnormal extra-axial collection. Mild involutional changes. The calvarium is intact. The paranasal sinuses, mastoid air cells, and middle ear cavities are clear . IMPRESSION: No acute intracranial abnormality or calvarial fracture. ACT 112: Negative or not required by law. The above report was generated using voice recognition software. It may contain grammatical, syntax o r spelling errors. Electronically signed by: Damon Medrano M.D. 01/01/2021 6:25 PM
--- NOTE | 2021-01-01 19:38 | History & Physical Report ---
Date of Service January 01, 2021 Assessment & Plan (1) Weakness: Plan: 1. Ambulatory Dysfunction - secondary to medication noncompliance/worsening psychosis - PT/OT when able - UA, CXR negative for acute infectious etiology of dysfunction - no electrolyte derangements - BMP, CBC to monitor organic etiologies, neutropenic risk with clozapine Psychosis - cont clozapine, gabapentin, lamictal, fluoxetine, paliperidone, risperidone - cont patient's home Ingrezza - psychiatry consult - CK in AM given continuous tremoring - gentle PO hydration HLD - cont statin, asa Pressure Ulcer - BL on heels, L>R - inpatient wound care consult - waffle boots/heel precautions - wound culture sent dvt ppx: lovenox fen/gi: safe tray, regular diet code status: full code dispo: med/surg (2) Tremors of nervous system: (3) Tardive dyskinesia: (4) Neuroleptic-induced Parkinsonism: (5) Cogwheel rigidity: (6) Bipolar 1 disorder: (7) Hyperlipidemia: (8) Hypothyroidism: History of Present Illness Primary Care Provider: Sonja Spears, DO 60 yo F with hx neuroleptic induced parkinsonism, tardive dyskinesia, cogwheel rigidty, bipolar 1, HLD, hypothyroidism brought to ER for ambulatory dysfunction. Recently was at [place] for extended stay for control/management ofpsychosis and tremors. She was discharged home from the [facility] 3 days ago. Family is unsure of medical compliance for the past 3 days. Taniya states that she's been having generalized chest pressure/tightness for the past 3 weeks, as well as pain in all 4 limbs. She denies any trouble breathing. She is no longer able to get up and ambulate on her own and requires assistance to get out of bed, which is not her baseline. Allergies Allergy/AdvReac Type Severity Reaction Status Date / Time Penicillins Allergy Mild Rash Verified 01/01/21 13:29 Home Medications Medication Instructions Recorded Confirmed Type levothyroxine 100 mcg tablet 75 mcg PO QAM 02/04/20 01/01/21 History (Synthroid) atorvastatin 20 mg tablet (Lipitor) 20 mg PO HS #30 tab 05/02/20 01/01/21 Rx aspirin 81 mg tablet 81 mg PO DAILY 05/10/20 01/01/21 History docusate sodium 100 mg capsule 100 mg PO DAILY 11/18/20 01/01/21 History gabapentin 300 mg capsule 300 mg PO BID 11/18/20 01/01/21 History valbenazine 40 mg capsule 80 mg HS 11/18/20 01/01/21 History (Ingrezza) ergocalciferol (vitamin D2) 1,000 1,000 unit PO WK 01/01/21 01/01/21 History unit capsule fluoxetine 40 mg capsule 40 mg PO QAM 01/01/21 01/01/21 History lorazepam 0.5 mg tablet (Ativan) 0.5 mg PO QID PRN 01/01/21 01/01/21 History paliperidone 1.5 mg 1.5 mg PO QPM 01/01/21 01/01/21 History tablet,extended release 24 hr risperidone 2 mg tablet 2 mg TID 01/01/21 01/02/21 History Past Med/Surg History Medical History Bipolar 1 disorder History of anesthesia reaction difficulty waking Hyperlipidemia Hypertension Hypothyroidism Psychosis Tardive dyskinesia UTI (urinary tract infection) Surgical History History of colonoscopy with polypectomy History of conization of cervix History of cervical conization by laser History of dilation and curettage History of foot surgery x2--right--no hardware History of hysteroscopy History of right oophorectomy History of tooth extraction all upper teeth History of tubal ligation Family History Father Type 2 diabetes mellitus Family hx colonic polyps Brother Type 2 diabetes mellitus Sister Parathyroid disorder Brother Type 2 diabetes mellitus Other No family history of adverse response to anesthesia Social History Smoking Status: Never smoker Second Hand Exposure: No; Do You Dip or Chew Tobacco: No; Hx Alcohol Use: No Hx Substance Use: No Preferred Language: Thai Communication Ability: Effective I O Psychologist Required: No Beliefs That Will Affect Care: None marital status: Current Living Situation: Spouse current occupational status: employed Feels Safe at Home: Yes Safety Concerns: Feels Safe At This Time Assistive Devices: None Assistive Devices Comment: dentures not here, to be brought in the AM by son Review of Systems Constitutional: no fever, no chills, no sweats and no fatigue Eyes: no blind spots and no discharge Ear, Nose, Mouth, Throat: no hearing loss and no nasal congestion Respiratory: no cough and no dyspnea Cardiovascular: + chest pain; no dyspnea, no dyspnea on exertion, no orthopnea, no palpitations and no edema Gastrointestinal: no abdominal pain, no nausea, no vomiting, no constipation, no diarrhea/loose stools and no blood in stools Genitourinary: + dysuria and + urinary incontinence Musculoskeletal: + myalgia; no joint pain Neurologic: + gait abnormality, + unsteadiness, + falls, + tremor(s), + abnormal movements and + restless legs; no tingling, no numbness and no headache(s) Endocrine: no fatigue Physical Exam Physical Exam: Constitutional: frail appearing female laying on her back in bed Eyes: EOMI, pupils equal and reactive bilaterally, no scleral icterus. Cardiac: RRR, no murmurs, gallops or rubs. Normal S1, S2 Pulm: CTA BL, no wheezes, rhonchi, crackles or rubs, moving air well throughout both lungs Abd: soft, nontender, nondistended, normal bowel sounds, no rebound or guarding Extremities: 2+ peripheral pulses, no edema. bruising along inferior right corcoran. BL compression ulcers on heels L>R. Right covered with blackened/bruised skin. Neuro: no focal deficits, moving all 4 limbs, A&Ox3 Psych: decreased concentration, normal pace of speech, able to follow commands Results & Data Results & Data ([facility]) Vital Signs (Past 12 Hours) Vital Signs Temp Pulse Pulse Resp BP BP Pulse Ox 01/01/21 16:45 98 H 18 147/61 H 96 01/01/21 14:15 97 H 20 157/79 H 96 01/01/21 12:15 37.3 C 93 H 20 131/79 97 Laboratory Results Laboratory Results WBC 6.78 K/uL (4.8-10.8) 01/01/21 13:08 RBC 4.19 M/uL (4.2-5.4) L 01/01/21 13:08 Hgb 13.0 g/dL (12.0-16.0) 01/01/21 13:08 Hct 39.4 % (37-47) 01/01/21 13:08 MCV 94.0 fL (80-100) 01/01/21 13:08 MCH 31.0 pg (25-34) 01/01/21 13:08 MCHC 33.0 g/dL (32-36) 01/01/21 13:08 RDW Std Deviation 49.8 fL (36.4-46.3) H 01/01/21 13:08 RDW Coeff of Zakiya 14.5 % (11.5-14.5) 01/01/21 13:08 Plt Count 196 K/uL (130-400) 01/01/21 13:08 MPV 10.0 fL (7.4-10.4) 01/01/21 13:08 Immature Gran % (Auto) 0.3 % 01/01/21 13:08 Neut % (Auto) 74.1 % 01/01/21 13:08 Lymph % (Auto) 15.2 % 01/01/21 13:08 [place] % (Auto) 9.4 % 01/01/21 13:08 Eos % (Auto) 0.9 % 01/01/21 13:08 Baso % (Auto) 0.1 % 01/01/21 13:08 Neut # (Auto) 5.02 K/uL (1.4-6.5) 01/01/21 13:08 Lymph # (Auto) 1.03 K/uL (1.2-3.4) L 01/01/21 13:08 [place] # (Auto) 0.64 K/uL (0.11-0.59) H 01/01/21 13:08 Eos # (Auto) 0.06 K/uL (0-0.5) 01/01/21 13:08 Baso # (Auto) 0.01 K/uL (0-0.2) 01/01/21 13:08 Immature Gran # (Auto) 0.02 K/uL (0.00-0.02) 01/01/21 13:08 Sodium 142 mmol/L (136-145) 01/01/21 13:08 Potassium 3.9 mmol/L (3.5-5.1) 01/01/21 13:08 Chloride 109 mmol/L (98-107) H 01/01/21 13:08 Carbon Dioxide 26 mmol/L (21-32) 01/01/21 13:08 Anion Gap 7.0 (3-11) 01/01/21 13:08 BUN 7 mg/dl (7-18) 01/01/21 13:08 Creatinine 0.84 mg/dl (0.6-1.2) 01/01/21 13:08 Est Cr Clr Drug Dosing Not Reportable 01/01/21 13:08 Est GFR ( Amer) 86.3 ml/min 01/01/21 13:08 Est GFR (Non-Af Amer) 74.5 ml/min 01/01/21 13:08 BUN/Creatinine Ratio 8.1 (10-20) L 01/01/21 13:08 Glucose 78 mg/dl (70-99) 01/01/21 13:08 Calcium 9.4 mg/dl (8.5-10.1) 01/01/21 13:08 Total Bilirubin 0.8 mg/dl (0.2-1) 01/01/21 13:08 AST 18 U/L (15-37) 01/01/21 13:08 ALT 30 U/L (12-78) 01/01/21 13:08 Alkaline Phosphatase 88 U/L (45-117) 01/01/21 13:08 Total Creatine Kinase Cancelled 01/01/21 13:30 Total Protein 6.8 gm/dl (6.4-8.2) 01/01/21 13:08 Albumin 3.5 gm/dl (3.4-5.0) 01/01/21 13:08 Globulin 3.3 gm/dl (2.5-4.0) 01/01/21 13:08 Albumin/Globulin Ratio 1.1 (0.9-2) 01/01/21 13:08 TSH 1.690 uIu/ml (0.300-4.500) 01/01/21 13:08 Urine Color Yellow 01/01/21 13:30 Urine Appearance Clear (Clear) 01/01/21 13:30 Urine pH 7.0 (4.5-7.5) 01/01/21 13:30 Ur Specific [place] 1.009 (1.000-1.030) 01/01/21 13:30 Urine Protein Negative (Negative) 01/01/21 13:30 Urine Glucose (UA) Negative (Negative) 01/01/21 13:30 Urine Ketones Trace (Negative) H 01/01/21 13:30 Urine Blood Negative (Negative) 01/01/21 13:30 Urine Nitrite Negative (Negative) 01/01/21 13:30 Urine Bilirubin Negative (Negative) 01/01/21 13:30 Urine Urobilinogen Negative (Negative) 01/01/21 13:30 Ur Leukocyte Esterase Negative (Negative) 01/01/21 13:30 Salicylates < 1.7 mg/dl (2.8-20) L 01/01/21 13:08 Urine Opiates Screen Neg (Neg) 01/01/21 13:30 Ur Methadone, Qual Neg (Neg) 01/01/21 13:30 Acetaminophen < 2 ug/ml (10-30) L 01/01/21 13:08 Urine Barbiturates Neg (Neg) 01/01/21 13:30 Ur Phencyclidine (PCP) Neg (Neg) 01/01/21 13:30 U Amphetamin/Meth Scrn Neg (Neg) 01/01/21 13:30 MDMA (Ecstasy) Screen Neg (Neg) 01/01/21 13:30 U Benzodiazepines Scrn Neg (Neg) 01/01/21 13:30 Ur Cocaine Metabolite Neg (Neg) 01/01/21 13:30 U Marijuana (THC) Screen Neg (Neg) 01/01/21 13:30 Ethyl Alcohol mg/dL < 3.0 mg/dl (0-3) 01/01/21 13:08 COVID-19 Eval Order Covid19 IDNow [facility] 01/01/21 14:55 SARS-CoV-2, RNA, NAAT NEGATIVE (NEGATIVE) 01/01/21 14:[address] 01/01/21 17:35 CT head/brain wo con CLINICAL HISTORY: 60 years-old Female with fall. Acute head injury status post fall TECHNIQUE: Multiple axial CT images of the head were obtained without contrast. A dose lowering technique was utilized adhering to the principles of ALARA. CT DOSE: 537.48 mGy.cm COMPARISON: 05/10/2020 PET/CT, brain MRI 07/04/2020 FINDINGS: Mildly motion degraded exam. No acute intracranial hemorrhage, midline shift, intracranial mass, hydrocephalus, territorial ischemia or abnormal extra-axial collection. Mild involutional changes. The calvarium is intact. The paranasal sinuses, mastoid air cells, and middle ear cavities are clear. IMPRESSION: No acute intracranial abnormality or calvarial fracture. ACT 112: Negative or not required by law. The above report was generated using voice recognition software. It may contain grammatical, syntax or spelling errors. Electronically signed by: Damon Medrano M.D. 01/01/2021 6:25 PM Chest X-Ray 01/01/21 20:06 XR chest 1V portable HISTORY: 60 years-old Female tachycardia COMPARISON: 05/10/2020 TECHNIQUE: Portable AP view of the chest FINDINGS: Mild asymmetric right hilar prominence, likely secondary to pulmonary vasculature. Cardiac silhouette is upper limits of normal in size. Lungs are mildly hypoinflated. 0.4 cm ill-defined opacity of the left upper lung. No pneumothorax, pleural effusion, airspace consolidation or overt pulmonary edema. Gas-filled loops of bowel in the upper abdomen. Degenerative changes of the shoulders and spine. IMPRESSION: 1. No acute process. 2. 1.4 cm opacity of the left upper lung is suggestive of summation density. Pulmonary nodule considered less likely. This could be evaluated with a nonemergent follow-up chest CT. ACT 112: Negative or not required by law. The above report was generated using voice recognition software. It may contain grammatical, syntax or spelling errors. Electronically signed by: Damon Medrano M.D. 01/01/2021 8:31 PM Supervising Physician Co-Signing Physician Notes Attending addendum: I have physically seen this patient, have supervised the medical residents activities, and agree with the H&P unless as otherwise noted. Assessment and Plan: Ambulatory dysfunction- Medication noncompliance and worsening psychosis Consult PT/OT Bilateral heel ulcers may be contributing to or caused by Psychosis- Continue usual meds: Clozapine, gabapentin, Lamictal, fluoxetine, paliperidone, risperidone, and Ingrezza Consult psychiatry Bilateral heel ulcers left greater than right- Wound care consult Follow wound cultures If Gram stain abnormal, would treat Remaining orders and notations as noted Resident Activity Tracking Resident Involvement: Resident Care Provided Care Provided: Adult [facility] Medicine
[2021-01-01] MEDS ORDERED: GABAPENTIN 300 MG CAP PO STA (20:21)
[2021-01-01] MEDS ORDERED: PALIPERIDONE 1.5 MG TABCR PO ONE (20:21)
[2021-01-01] MEDS ORDERED: lamoTRIgine 100 MG TAB PO ONE (20:30)
--- NOTE | 2021-01-01 20:33 | XRay Report ---
XR chest 1V portable HISTORY: 60 years-old Female tachycardia COMPARISON: 05/10/2020 TECHNIQUE: Portable AP view of the chest FINDINGS: Mild asymmetric right hilar prominence, likely secondary to pulmonary vasculature. Cardiac silhouette is upper limits of normal in size. Lungs are mildly hypoinflated. 0.4 cm ill-defined opacity of the left upper lung. No pneumothorax, pleural effusion, airspace consolidation or overt pulmonary edema. Gas-filled loops of bowel in the upper abdomen. Degenerative changes of the shoulders and spine. IMPRESSION: 1. No acute process. 2. 1.4 cm opacity of the left upper lung is suggestive of summation density. Pulmonary nodule conside red less likely. This could be evaluated with a nonemergent follow-up chest CT. ACT 112: Negative or not required by law. The above report was generated using voice recognition software. It may contain grammatical, syntax o r spelling errors. Electronically signed by: Damon Medrano M.D. 01/01/2021 8:31 PM
[2021-01-01] MEDS ORDERED: PALIPERIDONE 1.5 MG TABCR PO SCH (21:24)
[2021-01-01] MEDS ORDERED: cloZAPine 100 MG TAB PO SCH (21:24)
[2021-01-01 22:58] LABS: Creatine Kinase 81 U/L (26-192)
[2021-01-01] MEDS: ATORVASTATIN 20 MG TAB PO SCH (23:01)
[2021-01-01] MEDS: GABAPENTIN 300 MG CAP PO SCH (23:01)
[2021-01-01] MEDS: PROPRANOLOL HCL 20 MG TAB PO SCH (23:01)
[2021-01-01] MEDS: risperiDONE 2 MG TABLET PO SCH (23:02)
[2021-01-01] MEDS: FLUoxetine HCL 20 MG CAP PO SCH (23:02)
[2021-01-01] MEDS: DOCUSATE SODIUM 100 MG CAP PO SCH (23:02)
[2021-01-02] MEDS: LORazepam 0.5 MG TAB PO PRN ×3 (03:59→20:15)
[2021-01-02 04:34] LABS: Appearance Urine Clear (Clear); Bilirubin Urine Negative (Negative); Blood Urine Negative (Negative); Color Urine Yellow; Glucose Urine UA Negative (Negative); Ketones Urine 1+ (Negative); Leukocyte Esterase Urine Negative (Negative); Nitrite Urine Negative (Negative); Protein Urine Negative (Negative); Specific Gravity Urine 1.015 (1.000-1.030); Urobilinogen Urine Negative (Negative)
[2021-01-02] MEDS: LEVOTHYROXINE SODIUM 75 MCG TABLET PO SCH (06:12)
[2021-01-02 07:30] LABS: Basophils # (auto) 0.01 K/uL (0-0.2); Basophils % (auto) 0.2 %; Eosinophils # (auto) 0.11 K/uL (0-0.5); Eosinophils % (auto) 1.9 %; Hematocrit (blood only) 40.4 % (37-47); Hemoglobin 12.9 g/dL (12.0-16.0); Immature Granulocytes # (auto) 0.02 K/uL (0.00-0.02); Immature Granulocytes % (auto) 0.3 %; Lymphocytes # (auto) 1.44 K/uL (1.2-3.4); Lymphocytes % (auto) 24.2 %; Mean Corpuscular Hemoglobin 30.2 pg (25-34); Mean Corpuscular Hgb Conc 31.9 g/dL (32-36); Mean Corpuscular Volume 94.6 fL (80-100); Mean Platelet Volume 10.3 fL (7.4-10.4); Monocytes # (auto) 0.54 K/uL (0.11-0.59); Monocytes % (auto) 9.1 %; Neutrophils # (auto) 3.82 K/uL (1.4-6.5); Neutrophils % (auto) 64.3 %; Platelet Count 213 K/uL (130-400); RDW Coefficient of Variation 14.6 % (11.5-14.5); RDW Standard Deviation 49.9 fL (36.4-46.3); Red Blood Count 4.27 M/uL (4.2-5.4); White Blood Count 5.94 K/uL (4.8-10.8)
[2021-01-02] MEDS: FLUoxetine HCL 20 MG CAP PO SCH (07:49)
[2021-01-02] MEDS: ASPIRIN 81 MG ECTAB PO SCH (07:50)
[2021-01-02] MEDS: DOCUSATE SODIUM 100 MG CAP PO SCH (07:50)
[2021-01-02] MEDS: ENOXAPARIN INJ 40 MG/0.4 ML SYR SQ SCH (07:50)
[2021-01-02] MEDS: CHOLECALCIFEROL 1,000 UNITS 25 MCG TAB PO SCH (07:50)
[2021-01-02] MEDS: GABAPENTIN 300 MG CAP PO SCH ×2 (07:51→20:15)
[2021-01-02] MEDS: risperiDONE 2 MG TABLET PO SCH (07:51)
[2021-01-02] MEDS: PROPRANOLOL HCL 20 MG TAB PO SCH ×2 (07:51→20:18)
[2021-01-02 08:02] LABS: Albumin Level 3.3 gm/dl (3.4-5.0); BUN Creatinine Ratio 9.1 (10-20); Calcium 9.4 mg/dl (8.5-10.1); Creatinine Clr Calc Pharmacy 69.2 ml/min; Est GFR (Non-African American) 89.8 ml/min; Potassium 3.5 mmol/L (3.5-5.1)
[2021-01-02 08:04] LABS: Albumin Globulin Ratio 1.1 (0.9-2); Bilirubin,Total 0.9 mg/dl (0.2-1); Globulin 3.1 gm/dl (2.5-4.0); Total Protein 6.4 gm/dl (6.4-8.2)
--- NOTE | 2021-01-02 11:34 | Hospitalist Progress Note ---
Date of Service January 02, 2021 Assessment & Plan (1) Tremors of nervous system: Plan: Carries diagnoses of neuroleptic induced parkinsonism, tardive dyskinesia-very prominent tremors and are bound to interfere with ambulation Will obtain neurology input (2) Psychosis: Plan: On multiple antipsychoticsnoted psychiatric input sought; appropriate (3) Ambulatory dysfunction: Plan: Likely to #1; OT/PT; fall precautions (4) Hypothyroidism: Plan: Home levothyroxine; TSH normal Plan: Wound care consult for pressure ulcers; speech therapy consult Admission and Anticipated Discharge Date Admission Date: January 01, 2021 Subjective HPI noted; follow-up of ambulatory dysfunction; did not voice any significant complaints but did not provide much informationdid exhibit some paranoia; stated and son did not believe her and thought she was urinating in the bed; coughing when I saw her Physical Exam Physical Exam: Constitutional and general: No acute distress as such but flat affect Head and face: No puffiness, atraumatic; Eyes: No scleral icterus, extraocular movements normal Neck: Supple, no JVD Musculoskeletal: No acute joint swelling, no bony abnormalities Skin/dermatologic/integument: No rash, no purpura Hematologic and lymphatic: pallor +, no petechia Gastrointestinal/abdomen: Nondistended, soft, nonacute Neurologic: Extensive tremors upper extremity, rigidity cranial nerves intact, nonfocal Psychiatry: Flat affect Cardiovascular: Heart rhythm regular, no rub, no murmur, no gallop Respiratory: Chest movements equal, no use of accessory muscles, no adventitious sounds Extremities: No edema, no cyanosis Bilateral heel ulcers with scab Results & Data Results & Data ([facility]) Vital Signs (Past 12 Hours) Vital Signs Temp Pulse Resp BP Pulse Ox 01/02/21 07:27 36.9 C 97 H 20 146/71 H 95 Laboratory Results Laboratory Results - last 24 hr 01/01/21 01/01/21 01/01/21 13:08 13:08 13:08 WBC 6.78 RBC 4.19 L Hgb 13.0 Hct 39.4 MCV 94.0 MCH 31.0 MCHC 33.0 RDW Std Deviation 49.8 H RDW Coeff of Zakiya 14.5 Plt Count 196 MPV 10.0 Immature Gran % (Auto) 0.3 Neut % (Auto) 74.1 Lymph % (Auto) 15.2 [place] % (Auto) 9.4 Eos % (Auto) 0.9 Baso % (Auto) 0.1 Neut # (Auto) 5.02 Lymph # (Auto) 1.03 L [place] # (Auto) 0.64 H Eos # (Auto) 0.06 Baso # (Auto) 0.01 Immature Gran # (Auto) 0.02 Sodium 142 Potassium 3.9 Chloride 109 H Carbon Dioxide 26 Anion Gap 7.0 BUN 7 Creatinine 0.84 Est Cr Clr Drug Dosing Not Reportable Est GFR ( Amer) 86.3 Est GFR (Non-Af Amer) 74.5 BUN/Creatinine Ratio 8.1 L Glucose 78 Calcium 9.4 Total Bilirubin 0.8 AST 18 ALT 30 Alkaline Phosphatase 88 Total Creatine Kinase 81 Total Protein 6.8 Albumin 3.5 Globulin 3.3 Albumin/Globulin Ratio 1.1 TSH 1.690 Urine Color Urine Appearance Urine pH Ur Specific [place] Urine Protein Urine Glucose (UA) Urine Ketones Urine Blood Urine Nitrite Urine Bilirubin Urine Urobilinogen Ur Leukocyte Esterase Salicylates < 1.7 L Urine Opiates Screen Ur Methadone, Qual Acetaminophen < 2 L Urine Barbiturates Ur Phencyclidine (PCP) U Amphetamin/Meth Scrn MDMA (Ecstasy) Screen U Benzodiazepines Scrn Ur Cocaine Metabolite U Marijuana (THC) Screen Ethyl Alcohol mg/dL COVID-19 Eval Order SARS-CoV-2, RNA, NAAT 01/01/21 01/01/21 01/01/21 13:08 13:30 13:30 WBC RBC Hgb Hct MCV MCH MCHC RDW Std Deviation RDW Coeff of Zakiya Plt Count MPV Immature Gran % (Auto) Neut % (Auto) Lymph % (Auto) [place] % (Auto) Eos % (Auto) Baso % (Auto) Neut # (Auto) Lymph # (Auto) [place] # (Auto) Eos # (Auto) Baso # (Auto) Immature Gran # (Auto) Sodium Potassium Chloride Carbon Dioxide Anion Gap BUN Creatinine Est Cr Clr Drug Dosing Est GFR ( Amer) Est GFR (Non-Af Amer) BUN/Creatinine Ratio Glucose Calcium Total Bilirubin AST ALT Alkaline Phosphatase Total Creatine Kinase Total Protein Albumin Globulin Albumin/Globulin Ratio TSH Urine Color Yellow Urine Appearance Clear Urine pH 7.0 Ur Specific [place]oe 1.009 Urine Protein Negative Urine Glucose (UA) Negative Urine Ketones Trace H Urine Blood Negative Urine Nitrite Negative Urine Bilirubin Negative Urine Urobilinogen Negative Ur Leukocyte Esterase Negative Salicylates Urine Opiates Screen Neg Ur Methadone, Qual Neg Acetaminophen Urine Barbiturates Neg Ur Phencyclidine (PCP) Neg U Amphetamin/Meth Scrn Neg MDMA (Ecstasy) Screen Neg U Benzodiazepines Scrn Neg Ur Cocaine Metabolite Neg U Marijuana (THC) Screen Neg Ethyl Alcohol mg/dL < 3.0 COVID-19 Eval Order SARS-CoV-2, RNA, NAAT 01/01/21 01/01/21 01/01/21 13:30 14:55 14:55 WBC RBC Hgb Hct MCV MCH MCHC RDW Std Deviation RDW Coeff of Zakiya Plt Count MPV Immature Gran % (Auto) Neut % (Auto) Lymph % (Auto) [place] % (Auto) Eos % (Auto) Baso % (Auto) Neut # (Auto) Lymph # (Auto) [place] # (Auto) Eos # (Auto) Baso # (Auto) Immature Gran # (Auto) Sodium Potassium Chloride Carbon Dioxide Anion Gap BUN Creatinine Est Cr Clr Drug Dosing Est GFR ( Amer) Est GFR (Non-Af Amer) BUN/Creatinine Ratio Glucose Calcium Total Bilirubin AST ALT Alkaline Phosphatase Total Creatine Kinase Cancelled Total Protein Albumin Globulin Albumin/Globulin Ratio TSH Urine Color Urine Appearance Urine pH Ur Specific Roe Urine Protein Urine Glucose (UA) Urine Ketones Urine Blood Urine Nitrite Urine Bilirubin Urine Urobilinogen Ur Leukocyte Esterase Salicylates Urine Opiates Screen Ur Methadone, Qual Acetaminophen Urine Barbiturates Ur Phencyclidine (PCP) U Amphetamin/Meth Scrn MDMA (Ecstasy) Screen U Benzodiazepines Scrn Ur Cocaine Metabolite U Marijuana (THC) Screen Ethyl Alcohol mg/dL COVID-19 Eval Order Covid19 [facility] SARS-CoV-2, RNA, NAAT NEGATIVE 01/02/21 01/02/21 01/02/21 04:16 06:32 06:32 WBC 5.94 RBC 4.27 Hgb 12.9 Hct 40.4 MCV 94.6 MCH 30.2 MCHC 31.9 L RDW Std Deviation 49.9 H RDW Coeff of Zakiya 14.6 H Plt Count 213 MPV 10.3 Immature Gran % (Auto) 0.3 Neut % (Auto) 64.3 Lymph % (Auto) 24.2 [place] % (Auto) 9.1 Eos % (Auto) 1.9 Baso % (Auto) 0.2 Neut # (Auto) 3.82 Lymph # (Auto) 1.44 [place] # (Auto) 0.54 Eos # (Auto) 0.11 Baso # (Auto) 0.01 Immature Gran # (Auto) 0.02 Sodium 140 Potassium 3.5 Chloride 107 Carbon Dioxide 26 Anion Gap 7.0 BUN 7 Creatinine 0.72 Est Cr Clr Drug Dosing 69.2 Est GFR ( Amer) 104.0 Est GFR (Non-Af Amer) 89.8 BUN/Creatinine Ratio 9.1 L Glucose 74 Calcium 9.4 Total Bilirubin 0.9 AST 20 ALT 28 Alkaline Phosphatase 80 Total Creatine Kinase 70 Total Protein 6.4 Albumin 3.3 L Globulin 3.1 Albumin/Globulin Ratio 1.1 TSH Urine Color Yellow Urine Appearance Clear Urine pH 6.0 Ur Specific [place] 1.015 Urine Protein Negative Urine Glucose (UA) Negative Urine Ketones 1+ H Urine Blood Negative Urine Nitrite Negative Urine Bilirubin Negative Urine Urobilinogen Negative Ur Leukocyte Esterase Negative Salicylates Urine Opiates Screen Ur Methadone, Qual Acetaminophen Urine Barbiturates Ur Phencyclidine (PCP) U Amphetamin/Meth Scrn MDMA (Ecstasy) Screen U Benzodiazepines Scrn Ur Cocaine Metabolite U Marijuana (THC) Screen Ethyl Alcohol mg/dL COVID-19 Eval Order SARS-CoV-2, RNA, NAAT PG Care Time/CCT Total # of Minutes Spent Total Time Spent with Patient: Total time spent is greater than 50% in coord ination of care (as documented) at patient's floor/unit and/or counseling patient: Coding Level of Care Code 90069 Subseq Hosp Care Lvl 2 Diagnoses Tremors of nervous system R25.1 Psychosis F29 Ambulatory dysfunction R26.2 Hypothyroidism E03.9
--- NOTE | 2021-01-02 15:24 | Psychiatric Consultation ---
Date of Consultation January 02, 2021 Impression / Recommendations Impression This is a 60-year-old female with a longstanding history of bipolar disorder being treated with antipsychotic medication who presents to the medical floors with bedsores from prolonged inpatient stay. Patient was noted to be quite shaky as well as have some psychotic symptoms present including delusions regarding her and claims of visual hallucinations. Upon evaluation, patient seems to be close to her baseline from a psychiatric standpoint, although medication regimen seem to have been somewhat inappropriate. Psychiatry team will continue to gather resources from outpatient services and ensure patient is on her standing regimen with the appropriate changes. (1) Bipolar 1 disorder: For now, it seems that patient was in the middle of a cross taper from risperidone to paliperidone, which we will complete here in the hospital as paliperidone can be exchanged for risperidone without titration necessary. It also appears that patient was on Prozac 40 mg p.o. every morning Continue Prozac 40 mg p.o. every morning Paliperidone 3 mg p.o. 3 times daily Psychiatry will continue to follow and assess the patient. Psych History Chief Complaint "I am okay,". History of Present Illness HPI as per psychiatric liaison "Rounded on patient this morning. Sitting up in bed resting with eyes closed. Easy to arouse. Pt. is slow to respond to questions, and provides one to two word answers at this time. Pt. was admitted from ED with ambulator dysfunction, psychogenic tremors, and consulted for persistent psychosis. She is familiar to [address] [place] [address] with inpatient admission 07/06 for psychosis. She does have outpatient provider, Tyra Higgins at [facility], and a BCM at [facility]. Her son very supportive and was called for collateral regarding recent history. She does deny and depression, or anxiety, denies SI/HI. She does endorse visual hallucinations, reports seeing monkeys. She was recently discharge from the [facility] with a lengthy stay of several weeks, and was discharged approximately 2 weeks ago. Her son Bennie reports that prior to the [facility] she had increasing psychosis, and inability to care of herself. He reports several medication changes were made at the [facility], including discontinuing the Clozaril and Lamictal and started Remeron. He believes this had made her psychosis worse. DNA testing results done by Lencho Higgins determined that Risperdal was in the "red" and not recommended. Since her discharge her son reports increased psychosis, with behavioral changes including incontinence of bladder, and not getting out of bed and caring for self. He did encourage staff to reach out with any questions or concerns regarding his mother. ANDREAS's were signed for Bennie (son), Joleen, and Jorge. Faxes for records were sent to Joleen and Jorge." Upon evaluation, patient Dailyt of the above information is accurate. She denies any SI or HI. She denies any auditory hallucinations and only reports having seen monkey man in the past. She does appear quite shaky but endorsed that this is normal for her as she has been suffering from EPS for quite some time. She is somewhat alarmed at her and makes complaints regarding his treatment of her. She is agreeable to medication changes to target some of her symptoms as well as improve her chronic psychosis. No acute agitation noted during the course of the interview. Allergies Allergy/AdvReac Type Severity Reaction Status Date / Time Penicillins Allergy Mild Rash Verified 01/01/21 13:29 Home Medications Medication Instructions Recorded Confirmed Type levothyroxine 100 mcg tablet 75 mcg PO QAM 02/04/20 01/01/21 History (Synthroid) atorvastatin 20 mg tablet (Lipitor) 20 mg PO HS #30 tab 05/02/20 01/01/21 Rx aspirin 81 mg tablet 81 mg PO DAILY 05/10/20 01/01/21 History docusate sodium 100 mg capsule 100 mg PO DAILY 11/18/20 01/01/21 History gabapentin 300 mg capsule 300 mg PO BID 11/18/20 01/01/21 History valbenazine 40 mg capsule 80 mg HS 11/18/20 01/01/21 History (Ingrezza) ergocalciferol (vitamin D2) 1,000 1,000 unit PO WK 01/01/21 01/01/21 History unit capsule fluoxetine 40 mg capsule 40 mg PO QAM 01/01/21 01/01/21 History lorazepam 0.5 mg tablet (Ativan) 0.5 mg PO QID PRN 01/01/21 01/01/21 History paliperidone 1.5 mg 1.5 mg PO QPM 01/01/21 01/01/21 History tablet,extended release 24 hr risperidone 2 mg tablet 2 mg TID 01/01/21 01/02/21 History Personal History Beliefs That Will Affect Care: None Patient History Medical History Bipolar 1 disorder History of anesthesia reaction difficulty waking Hyperlipidemia Hypertension Hypothyroidism Psychosis Tardive dyskinesia UTI (urinary tract infection) Surgical History History of colonoscopy with polypectomy History of conization of cervix History of cervical conization by laser History of dilation and curettage History of foot surgery x2--right--no hardware History of hysteroscopy History of right oophorectomy History of tooth extraction all upper teeth History of tubal ligation Family History Father Type 2 diabetes mellitus Family hx colonic polyps Brother Type 2 diabetes mellitus Sister Parathyroid disorder Brother Type 2 diabetes mellitus Other No family history of adverse response to anesthesia Social History Smoking Status: Never smoker Second Hand Exposure: No; Do You Dip or Chew Tobacco: No; Hx Alcohol Use: No Hx Substance Use: No Preferred Language: Bruneian Communication Ability: Effective 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: No Beliefs That Will Affect Care: None marital status: Current Living Situation: Spouse current occupational status: employed Feels Safe at Home: Yes Safety Concerns: Feels Safe At This Time Assistive Devices: None Assistive Devices Comment: dentures not here, to be brought in the AM by son Physical Exam Psychiatric: Orientation: alert and oriented x 3 Apperance: appropriately groomed Eye Contact: + fair eye contact Motor Behavior: + EPS and + tremor Speech: normal rate/rhythm/volume of speech Affect: + anxious affect Mood: + anxious mood Thought Process: goal directed thought process Thought Content: + paranoid, + cognitive distortions and + delusions Suicidal Thoughts: denies suicidal thoughts Homicidal Thoughts: denies homicidal thoughts Hallucinations: + visual hallucinations; no auditory hallucinations Cognition: recent memory grossly intact Estimated Intelligence: consistent with education level Insight: + limited insight Judgement: + limited judgement Vital Signs (Past 24 Hours): Last Vital Signs Temp 36.9 C 01/02/21 07:27 Pulse 97 H 01/02/21 07:27 Resp 20 01/02/21 07:27 BP 146/71 H 01/02/21 07:27 Pulse Ox 95 01/02/21 07:27 Results & Data (PSY) Medications Administered Aspirin (Aspirin 81 Mg Ectab) 81 mg PO DAILY DONNIE Stop: 02/01/21 08:59 Last Admin: 01/02/21 07:50 Dose: 81 mg Documented by: [id number] Atorvastatin Calcium (Atorvastatin 20 Mg Tab) 20 mg PO HS DONNIE Stop: 01/31/21 21:23 Last Admin: 01/01/21 23:01 Dose: 20 mg Documented by: [id number] Docusate Sodium (Docusate Sodium 100 Mg Cap) 100 mg PO DAILY DONNIE Stop: 01/31/21 21:23 Last Admin: 01/02/21 07:50 Dose: 100 mg Documented by: [id number] Admin: 01/01/21 23:02 Dose: Not Given Documented by: [id number] Enoxaparin Sodium (Enoxaparin Inj 40 Mg/0.4 Ml Syr) 40 mg SQ QAM DONNIE Stop: 02/01/21 08:59 Last Admin: 01/02/21 07:50 Dose: 40 mg Documented by: [id number] Fluoxetine HCl (Fluoxetine Hcl 20 Mg Cap) 40 mg PO QAM DONNIE Stop: 01/31/21 21:23 Last Admin: 01/02/21 07:49 Dose: 40 mg Documented by: [id number] Admin: 01/01/21 23:02 Dose: 40 mg Documented by: [id number] Gabapentin (Gabapentin 300 Mg Cap) 300 mg PO BID DONNIE Stop: 01/31/21 21:23 Last Admin: 01/02/21 07:51 Dose: 300 mg Documented by: [id number] Admin: 01/01/21 23:01 Dose: 300 mg Documented by: [id number] Levothyroxine Sodium (Levothyroxine Sodium 75 Mcg Tablet) 75 mcg PO DAILYBB DONNIE Stop: 02/01/21 06:29 Last Admin: 01/02/21 06:12 Dose: 75 mcg Documented by: [id number] Lorazepam (Lorazepam 0.5 Mg Tab) 0.5 mg PO QID PRN PRN Reason: Anxiety Stop: 01/31/21 21:23 Last Admin: 01/02/21 12:36 Dose: 0.5 mg Documented by: [id number] Admin: 01/02/21 03:59 Dose: 0.5 mg Documented by: [id number] Propranolol HCl (Propranolol Hcl 20 Mg Tab) 20 mg PO BID [facility] Stop: 01/31/21 21:23 Last Admin: 01/02/21 07:51 Dose: 20 mg Documented by: [id number] Admin: 01/01/21 23:01 Dose: 20 mg Documented by: [id number] Vitamin D (Cholecalciferol 1,000 Units 25 Mcg Tab) 1,000 units PO Fr@0900 [facility] Stop: 02/01/21 08:59 Last Admin: 01/02/21 07:50 Dose: 1,000 units Documented by: [id number] Coding Level of Care Code 80235 [facility] Intl Hosp Care Lvl 2 Diagnoses Bipolar 1 disorder F31.9
[2021-01-02] MEDS: VALBENAZINE 80 MG SCH (20:16)
[2021-01-02] MEDS: ATORVASTATIN 20 MG TAB PO SCH (20:17)
[2021-01-02] MEDS: PALIPERIDONE 3 MG TABCR PO SCH (20:24)
[2021-01-02] MEDS ORDERED: lamoTRIgine 100 MG TAB PO SCH (21:00)
--- NOTE | 2021-01-03 00:41 | Billing Data ---
Date of Service January 03, 2021 Coding Level of Care Code 95950 Initial Inpt Care Lvl 3
[2021-01-03] MEDS: LEVOTHYROXINE SODIUM 75 MCG TABLET PO SCH (05:50)
--- NOTE | 2021-01-03 08:34 | Neurology Consultation ---
Date of Consultation January 03, 2021 Assessment & Plan (1) Tremors of nervous system: (2) Neuroleptic-induced Parkinsonism: (3) Tardive dyskinesia: (4) Bipolar 1 disorder: (5) Psychosis: (6) Cervical radiculopathy: This is a very complicated patient neurologically because of the medicat ion she requiresFor her mental health conditions, and the neurologic side effects these medications produce. When I saw her back in 2018 she had ataxia, cognitive issues and severe tardive dyskinesia. I felt that Seroquel gave her the tardive dyskinesia and she was showing trouble some chronic side effects from lithium. Currently, she has a bizarre resting tremor, of a coarse, irregular nature in the right upper extremity and some mild resting tremor in the other extremities. She has some bradykinesia, masklike face, and moderate rigidity of all 4 limbs. I do not see any ataxia of the limbs and she has no tardive dyskinesia of the face or tongue that I saw all 3 years ago. Therefore, she is not displaying any obvious signs of an irreversible chronic lithium toxicity ( she had been on lithium since 1987 up until early 2020) . She has had multiple MRIs of the brain which have been unremarkable in the last year Therefore, she has a bizarre tremor which may be embellished by the patient as well as a neuroleptic induced parkinsonism, 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 Risperdal was discontinued this hospitalization. She was on clozapine and this was discontinued. She is followed closely by Psychiatry, and I spoke at length with Dr. Pro. She is now on paliperidone, which is a newer antipsychotic. This can give tremor, lightheadedness, muscle spasms, and tardive dyskinesia ( but does not to do it as easily as earlier generation neuroleptics ). In addition, she is on valbenazine, which is a VMAT2 inhibitor and depletes dopamine, indicated for tardive dyskinesia. This medicine can give unsteadiness of gait and shaking. The patient does have some neck pain and history of cervical radiculopathy. Recommendations: 1. With her neuroleptic-induced parkinsonism, one would be tempted to initiate an antiparkinson medication. However, this will negate the effect of valbenazine and would risk increasing hallucinations and confusion. It may also give her dyskinesias. 2. since she is off Risperdal and on a new medication (paliperodone), I think it is best to just see how she does with the parkinsonism and the bizarre right upper extremity tremor. 3. gabapentin may decrease the tremors and she is on a fairly low dose. Consider increasing to 300 mg 3 times a day, and we can titrate from there. 4. propranolol will help essential tremor but likely not help a Parkinson's or dyskinetic tremor. 5. therefore, I will not recommend initiating any new medication from a neurologic standpoint, at this time. I will follow. 6. consider x-ray cervical spine. Overall, I spent a total of 110 minutes with this case including review of records, review of MRI films, direct evaluation the patient at bedside, and discussion of the case with the patient at bedside, RN at bedside, and Dr. Alcantar, including differential diagnosis and treatment options. History of Present Illness Reason for Consultation: Patient is a 60-year-old, who I was asked to see the request of Dr. Alcantar, for neurologic consultation regarding abnormal involuntary movements Requesting Physician: Dr. Alcantar Attending Physician: Ivelisse Alcantar MD History of Present Illness this patient has a longstanding psychiatric history with severe bipolar disorder, alison, depression, schizophrenia, hallucinations. She has multiple psychiatric admissions and been on multiple different psychiatric medications over. Several years she has had cognitive issues as well. I 1st saw this patient in June of 2017 for abnormal involuntary movements. At that time she had severe dyskinesia of her Ezequiel, head, and lips. She had rapid eye blinking and myoclonic jerks. Her exam revealed mild coarse postural and action tremor but no resting tremor. she had mild ataxia the upper extremities and gait. Motor strength was symmetrical being 5/5 throughout. She had good tone in the limbs without rigidity. Reflexes were 2/4 throughout except for absent Achilles tendon reflexes. Toes were downgoing to plantar stimulation bilaterally. At that time and noted she had been on lithium since 1987. [place] was really 1 of the only medications helped her. Also, she was on a very large dose of Seroquel at 500 mg per day and that was recently rapidly discontinued just prior to my consultation. We diagnosed tardive dyskinesia likely secondary to Seroquel and found no dystonia or Parkinson's disease features. I was very concerned at that time about chronic (reversible or irreversible ) lithium toxicity. 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 Apparently her lithium was not discontinued until June of this year. She wa s admitted to the hospital for falling, visual and auditory hallucinations, and memory decline. she had been on valbenazine, but was discharged on clozapine, fluoxetine, and Lamictal. She is followed by [facility] (Susana Higgnis and Dr. Spears) for her psychiatric condition and most recently has been on valbenazine 40 mg a day, fluoxetine 40 mg a day, Risperdal 2 mg in the morning, paliperidone 1.5 mg ER daily, Lamictal 150 mg a day, and clozapine 100 mg a day. The patient has had 3 normal MRIs of the brain over the last year. There is no evidence of stroke or significant small vessel ischemic change. She was admitted January 01 for increasing tremor and psychosis. She is unable to care for herself. At 12:15 p.m., temperature is 37.3, pulse 93 and regular, respiratory rate 20, blood pressure 131/79, and O2 saturation 97%. She describes is tremulous. CT scan of the head was unremarkable. CBC, Chem profile, TSH, urinalysis, and tox screen were unremarkable. Total CK was normal. She was seen by Psychiatry and clozapine, Lamictal, and risperidone were all discontinued. She is on 81 mg aspirin, fluoxetine 40 mg, gabapentin 300 mg twice a day, propranolol 20 mg twice a day, valbenazine 80 mg at bedtime, and paliperidone 3 mg TID this morning she complains of a nonspecific occipital headache and some nonspecific dizziness (not really lightheaded or vertiginous ). She states that her left hand hurts because she "keeps slapping it" with the right hand. She has no answer when I asked her why she slapping her right hand. She feels that her arms and legs hurt in a nonspecific manner and she is weak all over. She states that she cannot get up. Allergies Allergy/AdvReac Type Severity Reaction Status Date / Time Penicillins Allergy Mild Rash Verified 01/01/21 13:29 Home Medications Medication Instructions Recorded Confirmed Type levothyroxine 100 mcg tablet 75 mcg PO QAM 02/04/20 01/01/21 History (Synthroid) atorvastatin 20 mg tablet (Lipitor) 20 mg PO HS #30 tab 05/02/20 01/01/21 Rx aspirin 81 mg tablet 81 mg PO DAILY 05/10/20 01/01/21 History docusate sodium 100 mg capsule 100 mg PO DAILY 11/18/20 01/01/21 History gabapentin 300 mg capsule 300 mg PO BID 11/18/20 01/01/21 History valbenazine 40 mg capsule 80 mg HS 11/18/20 01/01/21 History (Ingrezza) ergocalciferol (vitamin D2) 1,000 1,000 unit PO WK 01/01/21 01/01/21 History unit capsule fluoxetine 40 mg capsule 40 mg PO QAM 01/01/21 01/01/21 History lorazepam 0.5 mg tablet (Ativan) 0.5 mg PO QID PRN 01/01/21 01/01/21 History paliperidone 1.5 mg 1.5 mg PO QPM 01/01/21 01/01/21 History tablet,extended release 24 hr risperidone 2 mg tablet 2 mg TID 01/01/21 01/02/21 History Patient History Medical History Bipolar 1 disorder History of anesthesia reaction difficulty waking Hyperlipidemia Hypertension Hypothyroidism Psychosis Tardive dyskinesia UTI (urinary tract infection) Surgical History History of colonoscopy with polypectomy History of conization of cervix History of cervical conization by laser History of dilation and curettage History of foot surgery x2--right--no hardware History of hysteroscopy History of right oophorectomy History of tooth extraction all upper teeth History of tubal ligation Family History Father Type 2 diabetes mellitus Family hx colonic polyps Brother Type 2 diabetes mellitus Sister Parathyroid disorder Brother Type 2 diabetes mellitus Other No family history of adverse response to anesthesia Social History Smoking Status: Never smoker Second Hand Exposure: No; Do You Dip or Chew Tobacco: No; Hx Alcohol Use: No Hx Substance Use: No Preferred Language: Chinese Communication Ability: Effective Housekeeper Child Care Required: No Beliefs That Will Affect Care: None marital status: Current Living Situation: Spouse current occupational status: employed Feels Safe at Home: Yes Safety Concerns: Feels Safe At This Time Assistive Devices: None Assistive Devices Comment: dentures not here, to be brought in the AM by son Review of Systems Constitutional: + fatigue and + weakness; no fever Eyes: no diplopia, no eye pain and no worsening vision Ear, Nose, Mouth, Throat: + dizziness; no ear pain, no tinnitus, no hearing loss, no hoarseness and no dysphagia Respiratory: no cough and no dyspnea Cardiovascular: no chest pain, no palpitations and no lightheadedness Gastrointestinal: no abdominal pain, no nausea and no vomiting Genitourinary: no dysuria, no urinary frequency and no urinary incontinence Musculoskeletal: + neck pain; no back pain, no radicular pain, no joint pain and no myalgia Integumentary: no rash and no lesions Neurologic: + gait abnormality, + generalized weakness, + tremor(s), + abnormal movements, + headache(s) and + memory loss; no localized weakness, no tingling, no numbness, no abnormal speech and no confusion Psychiatric: + anxiety; no depression, no irritability, no difficulty concentrating, no confusion and no hallucinations Endocrine: no fatigue and no flushing Hematologic / Lymphatic: no easy bleeding and no easy bruising Allergy / Immunological: no urticaria and no problem reported Exam (Neuro) Physical Exam: The patient is right-handed. The patient is awake, alert, and attentive. Speech is normal without any aphasia or dysarthria. The patient can name objects, repeat phrases, and has normal spontaneous speech. She is oriented to her name, her age, where she is and the name of this [facility], the month and the year. Attention and concentration are normal. Mood is reasonable and affect is mildly flat. General appearance and grooming are normal. Short and long-term memory are both somewhat impaired to conversation otherwise. She will perseverate on words, repeating the word "Melvin" (which is the name of her dog ) or "I can't" ( after I asked her certain task to do ). She will even repeat "I can't" even while she is actually performing the task correctly. Pupils are 4 mm bilaterally and reactive to light. Extraocular eye muscles are intact without nystagmus horizontally. She has some decreased upgaze and downgaze bilaterally. Visual acuity and visual egan seem normal grossly to confrontation although this is somewhat difficult to do. There are no deficits to sensation in the face in all 3 distributions of the f ifth cranial nerve bilaterally. Corneal reflexes are positive bilaterally. Facial strength and symmetry seem normal bilaterally. Hearing seems normal bilaterally. Palate moves well without asymmetry. There is normal sternocleidomastoid and trapezius (shoulder shrug) strength bilaterally. Tongue is midline with good strength bilaterally. She has a mild masklike face and some mild bradykinesia in general. Neck has a full range of motion with some discomfort. There are no cervical bruits bilaterally. There are no cranial or ocular bruits. Heart is regular rhythm and rate without obvious murmur. Cervical, thoracic, and lumbar spine are nontender to palpation. Gait is not tested and stance sitting up in bed is poor With outstretched arms there is no drift. There are very coarse, irregular /variable resting tremor in the right hand greater than the left hand and in both legs. the tremors dampened with directed activity /action. There is no ataxia with finger to nose testing. There is mild postural and action tremor bilaterally ( different from the course, irregular resting movements). There is decreased facility in the hands, with rapid "run down" affect. there is no ataxia with [id number] testing. Motor strength is 5/5 diffusely in the arms bilaterally including deltoids, biceps, triceps, brachioradialis, wrist flexors and extensors, operations mgr, and intrinsic hand muscles. Motor strength is Very difficult to ascertain in the legs because of lack of effort. Leg strength seems symmetrical diffusely bilaterally both proximally and distally. Toe extensors are normal and there is good bulk in the extensor digitorum brevis muscles bilaterally. The limbs have moderate rigidity diffusely. There is no atrophy noted in the muscles. Muscle bulk is normal, there is no tenderness to palpation, no myotonia to percussion, and no fasciculations seen. Sensory examination is intact to touch and pin throughout all 4 limbs diffusely. Reflexes are 1/4 in the biceps, triceps, brachioradialis, and quadriceps tendons bilaterally. Achilles tendon reflexes are absent bilaterally. There is no clonus bilaterally. Toes are downgoing with plantar stimulation on the left and seemingly upgoing on the right. Peripheral pulses are present and of normal quality distally in all 4 limbs. There is no peripheral edema noted in the limbs. Results & Data ([facility]) Vital Signs (Past 12 Hours) Vital Signs Temp Pulse Resp BP Pulse Ox 01/03/21 07:34 36.8 C 95 H 18 167/94 H 97 01/02/21 22:46 37.0 C 55 L 16 114/66 95 PG Care Time/CCT Total # of Minutes Spent Total Time Spent with Patient: Total time spent is greater than 50% in coordination of care (as documented) at patient's floor/unit and/or counseling patient: Coding Level of Care Code 68984 Initial Inpt Care Lvl 3 Diagnoses Tremors of nervous system R25.1 Tardive dyskinesia G24.01 Neuroleptic-induced Parkinsonism G21.11 Psychosis F29 Bipolar 1 disorder F31.9 Cervical radiculopathy M54.12 Time Spent (min) 110 Comment Add modifiers as able
[2021-01-03] MEDS: PALIPERIDONE 3 MG TABCR PO SCH ×4 (08:43→22:55)
[2021-01-03] MEDS: PROPRANOLOL HCL 20 MG TAB PO SCH ×3 (08:43→22:55)
[2021-01-03] MEDS: DOCUSATE SODIUM 100 MG CAP PO SCH (08:43)
[2021-01-03] MEDS: FLUoxetine HCL 20 MG CAP PO SCH (08:44)
[2021-01-03] MEDS: ENOXAPARIN INJ 40 MG/0.4 ML SYR SQ SCH (08:44)
[2021-01-03] MEDS: GABAPENTIN 300 MG CAP PO SCH ×4 (08:44→22:54)
[2021-01-03] MEDS: ASPIRIN 81 MG ECTAB PO SCH (08:44)
--- NOTE | 2021-01-03 09:19 | Hospitalist Progress Note ---
Date of Service January 03, 2021 Assessment & Plan (1) Tremors of nervous system: Plan: Bizarre tremors upper extremities more-carries diagnosis of neuroleptic induced parkinsonism, tardive dyskinesia; neurology and psychiatry input noted and appreciated; gabapentin increased; C-spine x-ray ordered (2) Bipolar 1 disorder: Plan: Psychiatry input appreciated; current on Invega and Prozac (3) Ambulatory dysfunction: Plan: Primarily secondary to #1OT/PT; await course; might need rehab/placement again (4) Hypothyroidism: Plan: Home levothyroxine Plan: Wound care team consulted for heel ulcers with dry scab Admission and Anticipated Discharge Date Admission Date: January 02, 2021 Subjective HPI noted; follow-up of ambulatory dysfunction; did not voice any significant complaints but still ongoing psychotic symptoms - stated she flew out of the window Physical Exam Physical Exam: Constitutional and general: No acute distress as such but flat affect Head and face: No puffiness, atraumatic; somewhat masklike facies Eyes: No scleral icterus, extraocular movements normal Neck: Supple, no JVD Musculoskeletal: No acute joint swelling, no bony abnormalities Skin/dermatologic/integument: No rash, no purpura Hematologic and lymphatic: pallor +, no petechia Gastrointestinal/abdomen: Nondistended, soft, nonacute Neurologic: Bilateral upper extremity tremors and rigidity; cranial nerves intact, nonfocal Psychiatry: Flat affect Cardiovascular: Heart rhythm regular, no rub, no murmur, no gallop Respiratory: Chest movements equal, no use of accessory muscles, no adventitious sounds Extremities: No edema, no cyanosis Bilateral heel ulcers with scab Results & Data Results & Data ([facility]) Vital Signs (Past 12 Hours) Vital Signs Temp Pulse Resp BP Pulse Ox 01/03/21 07:34 36.8 C 95 H 18 167/94 H 97 01/02/21 22:46 37.0 C 55 L 16 114/66 95 PG Care Time/CCT Total # of Minutes Spent Total Time Spent with Patient: Total time spent is greater than 50% in coordination of care (as documented) at patient's floor/unit and/or counseling patient: Coding Level of Care Code 91152 Subseq Hosp Care Lvl 2 Diagnoses Tremors of nervous system R25.1 Bipolar 1 disorder F31.9 Hypothyroidism E03.9 Ambulatory dysfunction R26.2
--- NOTE | 2021-01-03 10:18 | XRay Report ---
XR cervical spine 2 or 3V CLINICAL HISTORY: Ambulatory dysfunction COMPARISON STUDY: Cervical spine radiographs July 08, 2013. FINDINGS: C7 is partially obscured on this exam. No fracture is identified within visualized portions of the cervical spine. There is moderate multilevel facet arthrosis, disc space narrowing and osteop hytosis within the cervical spine. Prevertebral soft tissues are unremarkable. Possible 1.4 cm left u pper lung nodular opacity is noted. IMPRESSION: 1. No cervical spine fracture although C7 partially obscured. 2. Moderate multilevel degenerative changes within the cervical spine. 3. Equivocal 1.4 cm left upper lung nodule. Nonemergent chest CT is recommended. ACT 112: Negative or not required by law. Electronically signed by: Juan Jose Laws M.D. 01/03/2021 10:17 AM
--- NOTE | 2021-01-03 14:16 | Communication Note ---
Date of Service: January 03, 2021 Today will be patient's full first full day on the new medication regimen. Spoke to neurology this morning with regards to patient's parkinsonian-like s ymptoms and the potential complications of starting multiple anti-dopaminergic/pro-dopaminergic agents at the same time. Psychiatry will continue to observe patient to ensure medication is treating her symptoms and to observe for a decrease in her tremor.
[2021-01-03] MEDS: LORazepam 0.5 MG TAB PO PRN (21:27)
[2021-01-03] MEDS: VALBENAZINE 80 MG SCH ×2 (21:28→22:55)
[2021-01-03] MEDS: ATORVASTATIN 20 MG TAB PO SCH ×2 (21:28→22:54)
[2021-01-04] MEDS: LEVOTHYROXINE SODIUM 75 MCG TABLET PO SCH (06:07)
[2021-01-04] MEDS: PROPRANOLOL HCL 20 MG TAB PO SCH ×2 (10:03→20:41)
[2021-01-04] MEDS: DOCUSATE SODIUM 100 MG CAP PO SCH (10:04)
[2021-01-04] MEDS: PALIPERIDONE 3 MG TABCR PO SCH ×3 (10:04→20:40)
[2021-01-04] MEDS: FLUoxetine HCL 20 MG CAP PO SCH (10:04)
[2021-01-04] MEDS: GABAPENTIN 300 MG CAP PO SCH ×3 (10:04→20:38)
[2021-01-04] MEDS: ASPIRIN 81 MG ECTAB PO SCH (10:04)
--- NOTE | 2021-01-04 11:08 | Neurology Progress Note ---
Date of Service January 04, 2021 Assessment & Plan (1) Tremors of nervous system: (2) Neuroleptic-induced Parkinsonism: (3) Tardive dyskinesia: (4) Bipolar 1 disorder: (5) Psychosis: (6) Cervical radiculopathy: Plan: This is a very complicated patient neurologically because of the medication she requires for her mental health conditions, and the neurologic side effects these medications produce. When I saw her back in 2018 she had ataxia, cognitive issues and severe tardive dyskinesia. I felt that Seroquel gave her the tardive dyskinesia and she was showing troublesome chronic side effects from lithium. Currently, she has a bizarre resting tremor, of a coarse, irregular nature in the right upper greater than left upper extremities and some mild resting tremor in the legs. This morning, she does not have resting tremor of the legs and her upper ext remity, irregular tremors are not as prominent as yesterday. gabapentin was increased to 300 milligrams 3 times a day (although she was not compliant yesterday) and this may have helped some of her tremor. She has some bradykinesia, masklike face, and moderate rigidity of all 4 limbs. I do not see any ataxia of the limbs and she has no tardive dyskinesia of the face or tongue that I saw (3 years ago). She is not displaying any obvious signs of an irreversible chronic lithium toxicity ( she had been on lithium since 1987 up until early 2020) . Multiple MRIs of the brain have been unremarkable in the last year Therefore, she has a bizarre tremor which may be embellished by the patient as well as neuroleptic-induced parkinsonism, 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 Risperdal was discontinued this hospitalization. She was on clozapine and this was discontinued. She is followed closely by Psychiatry. She is now on paliperidone, which is a newer antipsychotic. This can give tremor, lightheadedness, muscle spasms, and tardive dyskinesia ( but does not to do it as easily as earlier generation neuroleptics ). In addition, she is on valbenazine, which is a VMAT2 inhibitor and depletes dopamine, indicated for tardive dyskinesia. This medicine can give unsteadiness of gait and shaking. The patient does have some neck pain and history of cervical radiculopathy. Cervical spine plain x-rays show some degenerative changes with no significant findings Recommendations: 1. With her neuroleptic-induced parkinsonism, one would be tempted to initiate an antiparkinson medication. However, this will negate the effect of valbenazine and would risk increasing hallucinations and confusion. It may also give her dyskinesias. 2. she is off Risperdal and on paliperodone. 3. Continue gabapentin 300 mg 3 times a day for now. 4. propranolol will help essential tremor but not a Parkinson's or dyskinetic tremor. 5. I will not recommend initiating any new medication from a neurologic standpoint, at this time. Keep medication the same and we will follow neurologically. Overall, I spent a total of 35 minutes with this case including review of records, direct evaluation the patient at bedside, and discussion of the case with the patient at bedside, RN at bedside, and Dr. Alcantar, including differential diagnosis and treatment options. Admission and Anticipated Discharge Date Admission Date: January 02, 2021 Subjective patient has some complaint of mild bilateral headache and she feels her tremor is about the same. Blood pressure is 112/68. Nursing reports that she was not compliant with her medications yesterday but took her medications This morning as prescribed Cervical spine x-ray showed some degenerative changes and no fractures. Results & Data ([facility]) Vital Signs (Past 12 Hours) Vital Signs Temp Pulse Resp BP Pulse Ox 01/04/21 07:45 37.0 C 86 20 112/68 95 01/04/21 07:41 36.9 C 85 18 133/69 95 Exam (Neuro) Physical Exam: She is awake and alert. Speech is reasonable without aphasia or dysarthria. Mood is more calm than yesterday and affect is appropriate. She is pleasant and cooperative with staff. Extraocular eye muscles are as per yesterday. She has a mild masklike face. She has the coarse, irregular right greater than left resting tremor which dampens with activity. She is left with a mild postural and action tremor bilaterally. She has mild rigidity in general. There are no dyskinetic movements of mouth or tongue. PG Care Time/CCT Total # of Minutes Spent Total Time Spent with Patient: Total time spent is greater than 50% in coordination of care (as documented) at patient's floor/unit and/or counseling patient: Coding Level of Care Code 11176 Subseq Hosp Care Lvl 3 Diagnoses Tremors of nervous system R25.1 Neuroleptic-induced Parkinsonism G21.11 Tardive dyskinesia G24.01 Bipolar 1 disorder F31.9 Psychosis F29 Cervical radiculopathy M54.12 Time Spent (min) 35
[2021-01-04] MEDS ORDERED: ACETAMINOPHEN 500 MG TAB PO ONE (12:26)
--- NOTE | 2021-01-04 12:26 | Hospitalist Progress Note ---
Date of Service January 04, 2021 Assessment & Plan Admission and Anticipated Discharge Date Admission Date: January 02, 2021 Subjective patient has some complaint of mild bilateral headache and she feels her tremor is about the same. Blood pressure is 112/68. Nursing reports that she was not compliant with her medications yesterday but took her medications This morning as prescribed Cervical spine x-ray showed some degenerative changes and no fractures. Physical Exam Physical Exam: Constitutional and general: No acute distress as such but flat affect Head and face: No puffiness, atraumatic; somewhat masklike facies Eyes: No scleral icterus, extraocular movements normal Neck: Supple, no JVD Musculoskeletal: No acute joint swelling, no bony abnormalities Skin/dermatologic/integument: No rash, no purpura Hematologic and lymphatic: pallor +, no petechia Gastrointestinal/abdomen: Nondistended, soft, nonacute Neurologic: Bilateral upper extremity tremors and rigidity; cranial nerves intact, nonfocal Psychiatry: Flat affect Cardiovascular: Heart rhythm regular, no rub, no murmur, no gallop Respiratory: Chest movements equal, no use of accessory muscles, no adventitious sounds Extremities: No edema, no cyanosis Bilateral heel ulcers with scab Results & Data Results & Data ([facility]) Vital Signs (Past 12 Hours) Vital Signs Temp Pulse Resp BP Pulse Ox 01/04/21 07:45 37.0 C 86 20 112/68 95 01/04/21 07:41 36.9 C 85 18 133/69 95 PG Care Time/CCT Total # of Minutes Spent Total Time Spent with Patient: Total time spent is greater than 50% in coordination of care (as documented) at patient's floor/unit and/or counseling patient: Coding
--- NOTE | 2021-01-04 12:38 | Hospitalist Progress Note ---
Date of Service January 04, 2021 Assessment & Plan (1) Tremors of nervous system: Plan: Bizarre tremors upper extremities more-carries diagnosis of neuroleptic induced parkinsonism, tardive dyskinesia; neurology and psychiatry input noted and appreciated; gabapentin increased; C-spine x-ray shows DJD but incidental possible lung nodule-CT chest for latter; neurology follow-up noted (2) Bipolar 1 disorder: Plan: Psychiatry input appreciated; current on Invega and Prozac (3) Ambulatory dysfunction: Plan: Primarily secondary to #1unsafe to return home as noted by therapy; inpatient psych versus SNF once stable (4) Hypothyroidism: Plan: Home levothyroxine (5) Lung nodule: Plan: CT chest Plan: Wound care team consulted for heel ulcers with dry scab; symptomatic treatment for headache at present Admission and Anticipated Discharge Date Admission Date: January 02, 2021 Subjective Follow-up of ambulatory dysfunction, extensive tremors-complained of headache to other providers but not to me; I could not elicit any significant information Physical Exam Physical Exam: Constitutional and general: No acute distress as such but flat affect Head and face: No puffiness, atraumatic; somewhat masklike facies Eyes: No scleral icterus, extraocular movements normal Neck: Supple, no JVD Musculoskeletal: No acute joint swelling, no bony abnormalities Skin/dermatologic/integument: No rash, no purpura Hematologic and lymphatic: pallor +, no petechia Gastrointestinal/abdomen: Nondistended, soft, nonacute Neurologic: Bilateral upper extremity tremors and rigidity; cranial nerves intact, nonfocal Psychiatry: Flat affect Cardiovascular: Heart rhythm regular, no rub, no murmur, no gallop Respiratory: Chest movements equal, no use of accessory muscles, no adventitious sounds Extremities: No edema, no cyanosis Results & Data Results & Data ([facility]) Vital Signs (Past 12 Hours) Vital Signs Temp Pulse Resp BP Pulse Ox 01/04/21 07:45 37.0 C 86 20 112/68 95 01/04/21 07:41 36.9 C 85 18 133/69 95 PG Care Time/CCT Total # of Minutes Spent Total Time Spent with Patient: Total time spent is greater than 50% in coordination of care (as documented) at patient's floor/unit and/or counseling patient: Coding Level of Care Code 72297 Subseq Hosp Care Lvl 2 Diagnoses Tremors of nervous system R25.1 Bipolar 1 disorder F31.9 Ambulatory dysfunction R26.2 Hypothyroidism E03.9 Lung nodule R91.1
--- NOTE | 2021-01-04 13:16 | CT Scan Report ---
CT SCAN OF THE CHEST WITHOUT IV CONTRAST CLINICAL HISTORY: Pulmonary nodule. COMPARISON STUDY: Chest x-ray dated 01/01/2021. Abdominal CT dated 10/02/2017. TECHNIQUE: CT scan of the thorax was performed from the thoracic inlet to the upper abdomen. Images are reviewed in the axial, sagittal, and coronal planes. IV contrast was not administered for this ex amination as per the referring clinician. A dose lowering technique was utilized adhering to the liset Lepe. CT DOSE: 180.48 mGy.cm FINDINGS: Thyroid: Atrophic and heterogeneous. Thoracic aorta: The thoracic aorta is normal in caliber and demonstrates standard 3-vessel arch anato my. Heart: The heart is top normal in size and without pericardial effusion. The coronary arteries are de nsely calcified. Lungs and pleural spaces: Evaluation of the lung parenchyma is degraded by motion artifact. The trach ea and central airways are clear. Mild scarring/atelectasis is seen at the lung bases. There is no ai rspace consolidation typical for pneumonia or pleural effusion. There is no left upper lobe pulmonary nodule identified as questioned by x-ray. A focus of pleural-based nodularity in the right lower lob e along the major fissure is seen on image #121. This is unchanged from a [address] and is of doubtful significance. Mediastinum: There is no mediastinal lymphadenopathy. Chani: Not well assessed without IV contrast. Axillae: There is no axillary lymphadenopathy. Upper abdomen: A calcified gallstone is noted. A 2.5 cm indeterminant hypodensity is again seen arisi ng from the upper pole of the left kidney. There is a tiny hiatal hernia. Skeletal structures: The skeletal structures are osteopenic. No lytic or blastic bony lesions are se en. IMPRESSION: 1. There is no airspace consolidation or pleural effusion. 2. There is no left upper lobe pulmonary nodule identified. The density questioned by x-ray was likel y artifactual. 3. Cholelithiasis. 4. A 2.5 cm indeterminant hypodensity is again seen arising from the upper pole of the left kidney. T his has modestly increased in size as compared to 10/02/2017 may represent a complex cyst. Nonemergent /outpatient follow-up with a contrast enhanced renal protocol CT or MRI is recommended. 5. Additional findings as above. ACT 112: Negative or not required by law. Electronically signed by: Lucas Ngo M.D. 01/04/2021 1:15 PM
[2021-01-04] MEDS: ENOXAPARIN INJ 40 MG/0.4 ML SYR SQ SCH (13:38)
--- NOTE | 2021-01-04 16:38 | Communication Note ---
Date of Service: January 04, 2021 Stop by to see patient this afternoon. She reported feeling somewhat better. She denied any visual or audio hallucinations, but did endorse her chronic delusion of "a big ugly man" being after her. Aside from this she denied any paranoia. She reported speaking to her during the day. She still appears to have significant tremors, although per her report they seem to have improved from days prior. Plan: No changes in psychiatric medication at this time, patient is not acutely psychotic and appears to be benefiting from the current regimen Psychiatry service will continue to follow
[2021-01-04] MEDS: ATORVASTATIN 20 MG TAB PO SCH (20:37)
[2021-01-04] MEDS: VALBENAZINE 80 MG SCH (20:39)
[2021-01-05] MEDS: LEVOTHYROXINE SODIUM 75 MCG TABLET PO SCH (06:25)
[2021-01-05] MEDS: ASPIRIN 81 MG ECTAB PO SCH (08:59)
[2021-01-05] MEDS: DOCUSATE SODIUM 100 MG CAP PO SCH (08:59)
[2021-01-05] MEDS: FLUoxetine HCL 20 MG CAP PO SCH (09:00)
[2021-01-05] MEDS: PALIPERIDONE 3 MG TABCR PO SCH ×3 (09:01→20:18)
[2021-01-05] MEDS: GABAPENTIN 300 MG CAP PO SCH ×3 (09:01→20:18)
[2021-01-05] MEDS: PROPRANOLOL HCL 20 MG TAB PO SCH ×2 (09:01→20:18)
[2021-01-05] MEDS: ENOXAPARIN INJ 40 MG/0.4 ML SYR SQ SCH (09:02)
[2021-01-05] MEDS: LORazepam 0.5 MG TAB PO PRN (12:17)
--- NOTE | 2021-01-05 15:19 | Hospitalist Progress Note ---
Date of Service January 05, 2021 Assessment & Plan (1) Tremors of nervous system: Plan: Neurology evaluation appreciated--> "she has a bizarre tremor which may be embellished by the patient as well as neuroleptic-induced parkinsonism, 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 Risperdal was discontinued this hospitalization. She was on clozapine and this was discontinued. She is followed closely by Psychiatry. She is now on paliperidone, which is a newer antipsychotic. This can give tremor, lightheadedness, muscle spasms, and tardive dyskinesia ( but does not to do it as easily as earlier generation neuroleptics ). In addition, she is on valbenazine, which is a VMAT2 inhibitor and depletes dopamine, indicated for tardive dyskinesia. This medicine can give unsteadiness of gait and shaking. 1. With her neuroleptic-induced parkinsonism, one would be tempted to initiate an antiparkinson medication. However, this will negate the effect of valbenazine and would risk increasing hallucinations and confusion. It may also give her dyskinesias. 2. she is off Risperdal and on paliperodone. 3. Continue gabapentin 300 mg 3 times a day for now. [an increased dose] 4. propranolol will help essential tremor but not a Parkinson's or dyskinetic tremor." -continue increased dose of gabapentin -Neurology and psychiatry input noted and appreciated C-spine x-ray shows DJD (2) Bipolar 1 disorder: Plan: Psychiatry input appreciated; current on Invega and Prozac (3) Ambulatory dysfunction: Plan: Primarily secondary to #1unsafe to return home as noted by therapy Needs SNF-Certified Diabetes Educator involved is out of bed to chair today with PT, improved slightly (4) Hypothyroidism: Plan: TSH normal here at 1.69 continue home levothyroxine (5) Lung nodule: Plan: CT chest follow up will be needed (6) Decubitus ulcer, heel: Plan: Wound care team consulted for heel ulcers with blood blisters-optifoam, offload pressure Plan: Continued stay for placement Admission and Anticipated Discharge Date Admission Date: January 02, 2021 Subjective Patient reports feeling tired, but tremor is not changed. She follows all commands and speaks very clearly. Her biggest concern is the tremor in both of her hands. She also reports that she would like to talk to her grandson. She is eating and drinking, moving her bowels. She was out of bed to a bedside commode today with nursing Review of Systems Review of Systems: All systems reviewed & are unremarkable except as noted in HPI & below Physical Exam Constitutional: WD/WN, vitals as above Eyes: PERRL, conjunctivae normal, anicteric sclerae ENMT: external ear and nose normal, oropharynx normal Neck: trachea midline, no thyromegaly Respiratory: normal respiratory effort, lungs clear to auscultation Cardiovascular: RRR, no murmur, no edema Chest (Breasts): Chest: normal inspection of chest Gastrointestinal (Abdomen): normal bowel sounds, soft, nontender, no hepatosplenomegaly Musculoskeletal: Extremities: extremities normal to inspection; no cyanosis and no clubbing Skin: + lesion (bilat heels with small blood filled blisters 2cm) Neurologic: moves all extremities and awake; no focal motor deficits Speech / Cognition: normal speech, no expressive aphasia and normal cognition Motor/Sensory: + tremor (coarse bilat UE tremor) Cranial Nerves: EOM intact bilaterally Psychiatric: Orientation: alert, oriented x 3 and cooperative Affect: + flat affect Lymphatic: no lymphedema Results & Data Results & Data ([facility]) Vital Signs (Past 12 Hours) Vital Signs Temp Pulse Resp BP Pulse Ox 01/05/21 07:37 37.0 C 53 L 17 126/80 96 PG Care Time/CCT Total # of Minutes Spent Total Time Spent with Patient: Total time spent is greater than 50% in coordination of care (as documented) at patient's floor/unit and/or counseling patient: Coding Level of Care Code 95136 Subseq Hosp Care Lvl 2 Diagnoses Tremors of nervous system R25.1 Bipolar 1 disorder F31.9 Ambulatory dysfunction R26.2 Hypothyroidism E03.9 Lung nodule R91.1 Decubitus ulcer, heel L89.609
[2021-01-05] MEDS: ATORVASTATIN 20 MG TAB PO SCH (20:17)
[2021-01-05] MEDS: VALBENAZINE 80 MG SCH (20:18)
[2021-01-06] MEDS: LEVOTHYROXINE SODIUM 75 MCG TABLET PO SCH (06:13)
[2021-01-06] MEDS: ASPIRIN 81 MG ECTAB PO SCH (09:07)
[2021-01-06] MEDS: PALIPERIDONE 3 MG TABCR PO SCH ×3 (09:07→20:25)
[2021-01-06] MEDS: FLUoxetine HCL 20 MG CAP PO SCH (09:07)
[2021-01-06] MEDS: DOCUSATE SODIUM 100 MG CAP PO SCH (09:07)
[2021-01-06] MEDS: GABAPENTIN 300 MG CAP PO SCH ×3 (09:07→20:27)
[2021-01-06] MEDS: PROPRANOLOL HCL 20 MG TAB PO SCH ×2 (09:08→20:25)
[2021-01-06] MEDS: ENOXAPARIN INJ 40 MG/0.4 ML SYR SQ SCH (09:08)
--- NOTE | 2021-01-06 13:39 | Hospitalist Progress Note ---
Date of Service January 06, 2021 Assessment & Plan (1) Tremors of nervous system: Plan: Neurology evaluation appreciated--> "she has a bizarre tremor which may be embellished by the patient as well as neuroleptic-induced parkinsonism, 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 Risperdal was discontinued this hospitalization. She was on clozapine and this was discontinued. She is followed closely by Psychiatry. She is now on paliperidone, which is a newer antipsychotic. This can give tremor, lightheadedness, muscle spasms, and tardive dyskinesia ( but does not to do it as easily as earlier generation neuroleptics ). In addition, she is on valbenazine, which is a VMAT2 inhibitor and depletes dopamine, indicated for tardive dyskinesia. This medicine can give unsteadiness of gait and shaking. 1. With her neuroleptic-induced parkinsonism, one would be tempted to initiate an antiparkinson medication. However, this will negate the effect of valbenazine and would risk increasing hallucinations and confusion. It may also give her dyskinesias. 2. she is off Risperdal and on paliperodone. 3. Continue gabapentin 300 mg 3 times a day for now. [an increased dose] 4. propranolol will help essential tremor but not a Parkinson's or dyskinetic tremor." -continue increased dose of gabapentin -Neurology and psychiatry input noted and appreciated C-spine x-ray shows DJD Psychiatry to revisit today but thinks tremors may be permanent (2) Bipolar 1 disorder: Plan: Psychiatry input appreciated; current on Invega and Prozac Psych to see again today as is c/o visual hallucinations (3) Ambulatory dysfunction: Plan: Primarily secondary to #1unsafe to return home as noted by therapy Needs SNF-Qm Consultant involved is out of bed to chair today with PT, improved slightly (4) Hypothyroidism: Plan: TSH normal here at 1.69 continue home levothyroxine (5) Lung nodule: Plan: CT chest follow up will be needed (6) Decubitus ulcer, heel: Plan: Wound care team consulted for heel ulcers with blood blisters-optifoam, offload pressure Plan: Continued stay for placement Admission and Anticipated Discharge Date Admission Date: January 02, 2021 Subjective Pt OOB to chair again today. Has pain from external urinary catheter and agrees to have it removed and will get OOB to bedside commode. Reports "I am an john, flying around in here." No pain anywhere else. No BM today she thinks. Is not eating much. States "I have a grandson...he has autism" which she told me [id number] yesterday. Review of Systems Review of Systems: All systems reviewed & are unremarkable except as noted in HPI & below Physical Exam Constitutional: WD/WN, vitals as above Eyes: + anicteric sclerae Neck: trachea midline, no thyromegaly Respiratory: normal respiratory effort, lungs clear to auscultation Cardiovascular: RRR, no murmur, no edema Chest (Breasts): Chest: normal inspection of chest Gastrointestinal (Abdomen): normal bowel sounds, soft, nontender, no hepatosplenomegaly Musculoskeletal: Extremities: extremities normal to inspection; no cyanosis and no clubbing Skin: + lesion (bilat heels with small blood filled blisters 2cm) Neurologic: moves all extremities and awake; no focal motor deficits Speech / Cognition: normal speech, no expressive aphasia and normal cognition Motor/Sensory: + tremor (coarse bilat UE tremor) Cranial Nerves: EOM intact bilaterally Psychiatric: Orientation: alert, oriented x 3 and cooperative Affect: + flat affect Lymphatic: no lymphedema Results & Data Results & Data ([facility]) Vital Signs (Past 12 Hours) Vital Signs Temp Pulse Resp BP Pulse Ox 01/06/21 07:30 37.2 C 70 17 117/64 99 PG Care Time/CCT Total # of Minutes Spent Total Time Spent with Patient: Total time spent is greater than 50% in coordination of care (as documented) at patient's floor/unit and/or counseling patient: Coding Level of Care Code 95594 Subseq Hosp Care Lvl 1 Diagnoses Tremors of nervous system R25.1 Bipolar 1 disorder F31.9 Ambulatory dysfunction R26.2 Hypothyroidism E03.9 Lung nodule R91.1 Decubitus ulcer, heel L89.609
[2021-01-06] MEDS: VALBENAZINE 80 MG SCH (20:24)
[2021-01-06] MEDS: ATORVASTATIN 20 MG TAB PO SCH (20:27)
[2021-01-07] MEDS: LORazepam 0.5 MG TAB PO PRN (05:28)
[2021-01-07] MEDS: LEVOTHYROXINE SODIUM 75 MCG TABLET PO SCH (05:58)
[2021-01-07] MEDS: PROPRANOLOL HCL 20 MG TAB PO SCH ×2 (09:19→21:13)
[2021-01-07] MEDS: ENOXAPARIN INJ 40 MG/0.4 ML SYR SQ SCH (09:21)
[2021-01-07] MEDS: FLUoxetine HCL 20 MG CAP PO SCH (09:22)
[2021-01-07] MEDS: DOCUSATE SODIUM 100 MG CAP PO SCH (09:22)
[2021-01-07] MEDS: PALIPERIDONE 3 MG TABCR PO SCH ×3 (09:22→21:12)
[2021-01-07] MEDS: GABAPENTIN 300 MG CAP PO SCH ×3 (09:22→21:11)
[2021-01-07] MEDS: ASPIRIN 81 MG ECTAB PO SCH (09:22)
[2021-01-07] MEDS: ACETAMINOPHEN 325 MG TAB PO PRN (10:55)
--- NOTE | 2021-01-07 17:22 | Hospitalist Progress Note ---
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 Risperdal was discontinued this hospitalization. She was on clozapine and this was discontinued. She is followed closely by Psychiatry. She is now on paliperidone, which is a newer antipsychotic. This can give tremor, lightheadedness, muscle spasms, and tardive dyskinesia ( but does not to do it as easily as earlier generation neuroleptics ). In addition, she is on valbenazine, which is a VMAT2 inhibitor and depletes dopamine, indicated for tardive dyskinesia. This medicine can give unsteadiness of gait and shaking. 1. With her neuroleptic-induced parkinsonism, one would be tempted to initiate an antiparkinson medication. However, this will negate the effect of valbenazine and would risk increasing hallucinations and confusion. It may also give her dyskinesias. 2. she is off Risperdal and on paliperodone. 3. Continue gabapentin 300 mg 3 times a day for now. [an increased dose] 4. propranolol will help essential tremor but not a Parkinson's or dyskinetic tremor." -continue increased dose of gabapentin -Neurology and psychiatry input noted and appreciated C-spine x-ray shows DJD Psychiatry thinks tremors may be permanent but not clear at this time No further changes in meds recommended (2) Bipolar 1 disorder: Plan: Psychiatry input appreciated; current on Invega and Prozac Psych thinks she is improved from previous with her alison no changed to be made to meds (3) Ambulatory dysfunction: Plan: Primarily secondary to #1unsafe to return home as noted by therapy Needs SNF-[facility] involved is out of bed to chair again today with PT, improving referrals made to SNF/rehab (4) Hypothyroidism: Plan: TSH normal here at 1.69 continue home levothyroxine (5) Lung nodule: Plan: CT chest follow up will be needed (6) Decubitus ulcer, heel: Plan: Wound care team consulted for heel ulcers with blood blisters-optifoam, offload pressure Plan: Continued stay for placement Admission and Anticipated Discharge Date Admission Date: January 02, 2021 Subjective Pt had a good day as per nursing. Was OOB to chair, eating meals, transitioned from bed to bedside commode better than previous. When I saw her she was sleeping quite deeply, but did yell at me with sternal rub "ouch! what did you do that for?" Also squeezed her eyelids shut very tightly and would not speak to me. Review of Systems Review of Systems: Unobtainable due to cognitive status Physical Exam Constitutional: WD/WN, vitals as above Neck: trachea midline, no thyromegaly Respiratory: normal respiratory effort, lungs clear to auscultation Cardiovascular: RRR, no murmur, no edema Chest (Breasts): Chest: normal inspection of chest Gastrointestinal (Abdomen): normal bowel sounds, soft, nontender, no hepatosplenomegaly Musculoskeletal: Extremities: extremities normal to inspection; no cyanosis and no clubbing Neurologic: + not awake Motor/Sensory: + tremor (coarse bilat UE tremor) woke to sternal rub, squeezed eyes shut tightly, did slowly lower her right arm after i held it up in the air Lymphatic: no lymphedema Results & Data Results & Data ([facility]) Vital Signs (Past 12 Hours) Vital Signs Temp Pulse Resp BP Pulse Ox 01/07/21 07:22 36.8 C 63 16 93/55 L 97 PG Care Time/CCT Total # of Minutes Spent Total Time Spent with Patient: Total time spent is greater than 50% in coordination of care (as documented) at patient's floor/unit and/or counseling patient: Coding Level of Care Code 92006 Subseq Hosp Care Lvl 1 Diagnoses Tremors of nervous system R25.1 Bipolar 1 disorder F31.9 Ambulatory dysfunction R26.2 Hypothyroidism E03.9 Lung nodule R91.1 Decubitus ulcer, heel L89.609
[2021-01-07] MEDS: ATORVASTATIN 20 MG TAB PO SCH (21:11)
[2021-01-07] MEDS: VALBENAZINE 80 MG SCH (21:12)
[2021-01-08] MEDS: LEVOTHYROXINE SODIUM 75 MCG TABLET PO SCH (05:51)
[2021-01-08] MEDS: ACETAMINOPHEN 325 MG TAB PO PRN (10:19)
[2021-01-08] MEDS: DOCUSATE SODIUM 100 MG CAP PO SCH ×2 (10:20→21:06)
[2021-01-08] MEDS: FLUoxetine HCL 20 MG CAP PO SCH (10:20)
[2021-01-08] MEDS: PROPRANOLOL HCL 20 MG TAB PO SCH ×2 (10:20→21:07)
[2021-01-08] MEDS: GABAPENTIN 300 MG CAP PO SCH ×3 (10:21→21:04)
[2021-01-08] MEDS: ASPIRIN 81 MG ECTAB PO SCH (10:21)
[2021-01-08] MEDS: PALIPERIDONE 3 MG TABCR PO SCH ×3 (10:21→21:06)
[2021-01-08] MEDS: ENOXAPARIN INJ 40 MG/0.4 ML SYR SQ SCH (10:22)
--- NOTE | 2021-01-08 17:57 | Hospitalist Progress Note ---
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 Risperdal was discontinued this hospitalization. She was on clozapine and this was discontinued. She is followed closely by Psychiatry. She is now on paliperidone, which is a newer antipsychotic. This can give tremor, lightheadedness, muscle spasms, and tardive dyskinesia ( but does not to do it as easily as earlier generation neuroleptics ). In addition, she is on valbenazine, which is a VMAT2 inhibitor and depletes dopamine, indicated for tardive dyskinesia. This medicine can give unsteadiness of gait and shaking. 1. With her neuroleptic-induced parkinsonism, one would be tempted to initiate an antiparkinson medication. However, this will negate the effect of valbenazine and would risk increasing hallucinations and confusion. It may also give her dyskinesias. 2. she is off Risperdal and on paliperodone. 3. Continue gabapentin 300 mg 3 times a day for now. [an increased dose] 4. propranolol will help essential tremor but not a Parkinson's or dyskinetic tremor." -continue increased dose of gabapentin -Neurology and psychiatry input noted and appreciated C-spine x-ray shows DJD Psychiatry thinks tremors may be permanent but not clear at this time No further changes in meds recommended (2) Bipolar 1 disorder: Plan: Psychiatry input appreciated; current on Invega and Prozac Psych thinks she is improved from previous with her alison no changed to be made to meds (3) Ambulatory dysfunction: Plan: Primarily secondary to #1unsafe to return home as noted by therapy Needs SNF-[employer] involved is out of bed to chair daily, improving somewhat but tremors certainly interfere with feeding herself and ADLs, needs assistance referrals made to SNF/rehab-auth pending (4) Hypothyroidism: Plan: TSH normal here at 1.69 continue home levothyroxine (5) Lung nodule: Plan: CT chest follow up will be needed (6) Decubitus ulcer, heel: Plan: Wound care team consulted for heel ulcers with blood blisters-optifoam, offload pressure Plan: Continued stay while awaiting placement Admission and Anticipated Discharge Date Admission Date: January 02, 2021 Subjective Pt OOB to chair when I saw her today, interactive, Still continuously moans at a low level and with tremors in upper arms. Is drinking from a cup and spilling it on herself. No BM recently and says she was supposed to get something for her bowels. Review of Systems Review of Systems: All systems reviewed & are unremarkable except as noted in HPI & below Physical Exam Constitutional: WD/WN, vitals as above Eyes: + anicteric sclerae Neck: trachea midline, no thyromegaly Respiratory: normal respiratory effort, lungs clear to auscultation Cardiovascular: RRR, no murmur, no edema Chest (Breasts): Chest: normal inspection of chest Gastrointestinal (Abdomen): normal bowel sounds, soft, nontender, no hepatosplenomegaly Musculoskeletal: Extremities: extremities normal to inspection; no cyanosis and no clubbing Skin: + lesion (bilat heels with small blood filled blisters 2cm) Neurologic: awake Speech / Cognition: normal speech, no expressive aphasia and normal cognition Motor/Sensory: + tremor (coarse bilat UE tremor) Psychiatric: Orientation: alert and cooperative Affect: + flat affect Lymphatic: no lymphedema Results & Data Results & Data ([facility]) Vital Signs (Past 12 Hours) Vital Signs Temp Pulse Pulse Resp BP Pulse Ox 01/08/21 14:40 37.4 C 82 18 109/61 95 01/08/21 07:19 37.1 C 71 16 126/67 97 PG Care Time/CCT Total # of Minutes Spent Total Time Spent with Patient: Total time spent is greater than 50% in coordination of care (as documented) at patient's floor/unit and/or counseling patient: Coding Level of Care Code 20663 Subseq Hosp Care Lvl 1 Diagnoses Tremors of nervous system R25.1 Bipolar 1 disorder F31.9 Ambulatory dysfunction R26.2 Hypothyroidism E03.9 Lung nodule R91.1 Decubitus ulcer, heel L89.609
[2021-01-08] MEDS: SENNA 8.6 MG TAB PO SCH (19:36)
[2021-01-08] MEDS: ATORVASTATIN 20 MG TAB PO SCH (21:04)
[2021-01-08] MEDS: VALBENAZINE 80 MG SCH (21:05)
[2021-01-09] MEDS: LEVOTHYROXINE SODIUM 75 MCG TABLET PO SCH (06:27)
[2021-01-09 07:03] LABS: Basophils # (auto) 0.01 K/uL (0-0.2); Basophils % (auto) 0.2 %; Eosinophils # (auto) 0.09 K/uL (0-0.5); Eosinophils % (auto) 1.4 %; Hematocrit (blood only) 41.5 % (37-47); Hemoglobin 13.6 g/dL (12.0-16.0); Immature Granulocytes # (auto) 0.01 K/uL (0.00-0.02); Immature Granulocytes % (auto) 0.2 %; Lymphocytes # (auto) 1.25 K/uL (1.2-3.4); Lymphocytes % (auto) 19.2 %; Mean Corpuscular Hemoglobin 30.4 pg (25-34); Mean Corpuscular Hgb Conc 32.8 g/dL (32-36); Mean Corpuscular Volume 92.6 fL (80-100); Mean Platelet Volume 10.8 fL (7.4-10.4); Monocytes # (auto) 0.43 K/uL (0.11-0.59); Monocytes % (auto) 6.6 %; Neutrophils # (auto) 4.71 K/uL (1.4-6.5); Neutrophils % (auto) 72.4 %; Platelet Count 179 K/uL (130-400); RDW Coefficient of Variation 13.7 % (11.5-14.5); RDW Standard Deviation 46.1 fL (36.4-46.3); Red Blood Count 4.48 M/uL (4.2-5.4)
[2021-01-09] MEDS: PROPRANOLOL HCL 20 MG TAB PO SCH (08:31)
[2021-01-09] MEDS: SENNA 8.6 MG TAB PO SCH (08:31)
[2021-01-09] MEDS: GABAPENTIN 300 MG CAP PO SCH ×2 (08:31→13:57)
[2021-01-09] MEDS: ASPIRIN 81 MG ECTAB PO SCH (08:31)
[2021-01-09] MEDS: FLUoxetine HCL 20 MG CAP PO SCH (08:31)
[2021-01-09] MEDS: DOCUSATE SODIUM 100 MG CAP PO SCH (08:32)
[2021-01-09] MEDS: ENOXAPARIN INJ 40 MG/0.4 ML SYR SQ SCH (08:32)
[2021-01-09] MEDS: PALIPERIDONE 3 MG TABCR PO SCH ×2 (08:32→13:57)
[2021-01-09] MEDS: CHOLECALCIFEROL 1,000 UNITS 25 MCG TAB PO SCH (08:32)
--- NOTE | 2021-01-09 14:22 | Discharge Summary ---
Date of Service January 09, 2021 Admission HPI Per Admitting Provider 60 yo F with hx neuroleptic induced parkinsonism, tardive dyskinesia, cogwheel rigidty, bipolar 1, HLD, hypothyroidism brought to ER for ambulatory dysfunction. Recently was at [place] for extended stay for control /management ofpsychosis and tremors. She was discharged home from the [facility] 3 days ago. Family is unsure of medical compliance for the past 3 days. Taniya states that she's been having generalized chest pressure/tightness for the past 3 weeks, as well as pain in all 4 limbs. She denies any trouble breathing. She is no longer able to get up and ambulate on her own and requires assistance to get out of bed, which is not her baseline. Principal Diagnosis Ambulatory dysfunction, tremors Discharge Exam Constitutional WD/WN, vitals as above Eyes + anicteric sclerae Neck trachea midline, no thyromegaly Respiratory normal respiratory effort, lungs clear to auscultation Cardiovascular RRR, no murmur, no edema Chest (Breasts) Chest: normal inspection of chest Gastrointestinal (Abdomen) normal bowel sounds, soft, nontender, no hepatosplenomegaly Musculoskeletal Extremities: extremities normal to inspection; no cyanosis and no clubbing Skin + lesion (bilat heels with small blood filled blisters 2cm) Neurologic awake Speech / Cognition: normal speech, no expressive aphasia and normal cognition Motor/Sensory: + tremor (coarse bilat UE tremor) Cranial Nerves: EOM intact bilaterally Psychiatric Orientation: alert and cooperative Affect: + flat affect Lymphatic no lymphedema Discharge Data Allergies Allergy/AdvReac Type Severity Reaction Status Date / Time Penicillins Allergy Mild Rash Verified 01/01/21 13:29 Consultations 01/01/21 19:41 ED Decision to Admit Stat 01/02/21 04:33 Consult Psychiatry Routine 01/02/21 11:42 Consult Neurology Routine Ordered Studies 01/01/21 17:35 CT head/brain wo con Stat 01/04/21 12:36 CT chest diagnostic wo con Routine Hospital Course (1) Tremors of nervous system: Neurology evaluation appreciated--> "she has a bizarre tremor which may be embellished by the patient as well as neuroleptic-induced parkinsonism, 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 Risperdal was discontinued this hospitalization. She was on clozapine and this was discontinued. She is followed closely by Psychiatry. She is now on paliperidone, which is a newer antipsychotic. This can give tremor, lightheadedness, muscle spasms, and tardive dyskinesia ( but does not to do it as easily as earlier generation neuroleptics ). In addition, she is on valbenazine, which is a VMAT2 inhibitor and depletes dopamine, indicated for tardive dyskinesia. This medicine can give unsteadiness of gait and shaking. 1. With her neuroleptic-induced parkinsonism, one would be tempted to initiate an antiparkinson medication. However, this will negate the effect of valbenazine and would risk increasing hallucinations and confusion. It may also give her dyskinesias. 2. she is now off Risperdal and on paliperodone. 3. Continue gabapentin 300 mg 3 times a day for now. [an increased dose] 4. propranolol will help essential tremor but not a Parkinson's or dyskinetic tremor." -continue increased dose of gabapentin at 300mg po tid (from bid) -Neurology and psychiatry input noted and appreciated C-spine x-ray shows DJD Psychiatry thinks tremors may be permanent but not clear at this time No further changes in meds recommended (2) Bipolar 1 disorder: Psychiatry input appreciated; current on Invega and Prozac Psych thinks she is improved from previous with her alison no changed to be made to meds (3) Ambulatory dysfunction: Primarily secondary to #1unsafe to return home as noted by therapy needs rehab is out of bed to chair daily, improving somewhat but tremors certainly interfere with feeding herself and ADLs, needs assistance (4) Hypothyroidism: TSH normal here at 1.69 continue home levothyroxine (5) Lung nodule: CT chest follow up will be needed (6) Decubitus ulcer, heel: Wound care team consulted for heel ulcers with blood blisters-optifoam, offload pressure Dispo-dc to [facility] rehab today Total Time Total Time Spent Total Time Spent (In Minutes): 35 min Discharge Plan Discharge Items Patient Disposition: Transfer Inpatient Rehab Fac Reason For Visit: AMBULATORY DYSFUNCTION, PSYCHOGENIC TREMORS Discharge Diagnosis: Ambulatory dysfunction, tremors, Bipolar disorder Condition on Discharge: Fair Activity: As commented below Lifting: Gradually increase as tolerated Bathing: No limitations Exercise/Sports: Gradually increase as tolerated Non-emergency contact: Primary Care Provider and Psychiatrist Call non-emergency contact if: you have any medication questions and your symptoms worsen Follow-up/Referrals: [facility] [Outside] - 01/12/21 3:20 pm (appointment with Tyra Higgins) Sonja Spears, DO [Primary Care Provider] - Diet: Regular Addtl Attending Provider Instructions: You were admitted for weakness and difficulty walking from deconditioning after a prolonged hospitalization for psychiatric reasons. You do have significant tremor which is secondary to your medications.You were seen by Neurology and your gabapentin was increased for the tremors. Psychiatry also saw you and did not recommend any changes in your medications. Please follow up closely with Psychiatry and with Neurology if desired. You will need intense rehab to get strong again to walk. Please continue to offload pressure from your heels and observe for signs of infection in your pressure ulcers. Pending Studies at Discharge: No Stand-Alone Forms: My [facility] [employer] Skilled Items Patient informed of condition?: Yes DNR: No Discharge Level of Care: Acute rehab Communicable Disease: No Discharge Prognosis: Improving Lines: None Urinary Catheter: No Medications and DC Order Prescriptions: New propranolol 20 mg Tablet 20 mg PO BID Qty: 60 RF: 0 paliperidone [Invega] 3 mg Tablet Extended Release 24hr 3 mg PO TID Qty: 90 RF: 0 sennosides [Senokot] 8.6 mg Tablet 8.6 mg PO QAM Qty: 30 RF: 0 Continued levothyroxine [Synthroid] 100 mcg tablet 75 mcg PO QAM RF: 0 aspirin 81 mg Tablet 81 mg PO DAILY RF: 0 Ingrezza 40 mg capsule 80 mg HS RF: 0 lorazepam [Ativan] 0.5 mg Tablet 0.5 mg PO QID PRN (Reason: Anxiety) RF: 0 Vitamin D2 1,000 unit Capsule 1,000 unit PO WK RF: 0 atorvastatin [Lipitor] 20 mg tablet 20 mg PO HS Qty: 30 RF: 0 fluoxetine 40 mg capsule 40 mg PO QAM Qty: 30 RF: 0 Changed gabapentin 300 mg capsule 300 mg PO TID Qty: 90 RF: 0 docusate sodium 100 mg capsule 100 mg PO BID Qty: 0 RF: 0 Discontinued risperidone 2 mg tablet 2 mg TID RF: 0 paliperidone 1.5 mg tablet extended release 24hr 1.5 mg PO QPM RF: 0 Discharge Orders: Discharge Order (Routine); Ordered 01/09/21 Ordered By: Trena Moon Admission Data Admit Date/Time: 01/02/21 14:47 Attending Provider: Trena Moon Admit Provider: Adilene Steward Primary Care Provider: Sonja Spears Other Providers: Esvin Grimaldo ; Susie Rodriguez ; Dr Andrew ; Ayse Orlando ; Ramakrishna Alfredo ; Abisai Garza ; [place] ; [facility] Coding Level of Care Code D/C DAY MANAGEMENT >30 MINS Diagnoses Tremors of nervous system R25.1 Bipolar 1 disorder F31.9 Ambulatory dysfunction R26.2 Hypothyroidism E03.9 Lung nodule R91.1 Decubitus ulcer, heel L89.609
== END 2021-01-09 16:06 | DRG 57 ==
LOC: 3N 12:02 → ED 12:02 → SUATTDRO 20:29 → 3N 20:53 → SUATTDRO 01-02 14:47

== ENCOUNTER 2021-01-14 09:49 | Inpatient (IN) ==
[2021-01-14] MEDS ORDERED: LORazepam 1 MG/2 ML VIAL IV STA (11:14)
[2021-01-14 11:46] LABS: Eosinophils # (auto) 0.06 K/uL (0-0.5); Eosinophils % (auto) 0.9 %; Hemoglobin 14.2 g/dL (12.0-16.0); Immature Granulocytes # (auto) 0.01 K/uL (0.00-0.02); Immature Granulocytes % (auto) 0.1 %; Lymphocytes # (auto) 1.35 K/uL (1.2-3.4); Lymphocytes % (auto) 19.2 %; Mean Corpuscular Hemoglobin 30.9 pg (25-34); Mean Corpuscular Volume 93.7 fL (80-100); Mean Platelet Volume 11.2 fL (7.4-10.4); Monocytes # (auto) 0.71 K/uL (0.11-0.59); Monocytes % (auto) 10.1 %; Neutrophils % (auto) 69.7 %; Platelet Count 180 K/uL (130-400); RDW Coefficient of Variation 13.4 % (11.5-14.5); RDW Standard Deviation 45.9 fL (36.4-46.3); Red Blood Count 4.59 M/uL (4.2-5.4); White Blood Count 7.03 K/uL (4.8-10.8)
[2021-01-14 11:51] LABS: Base Excess VBG 3.1 mEq/L; Oxygen Saturation VBG 66.7 %; pH VBG 7.43 (7.36-7.41)
[2021-01-14 11:58] LABS: Partial Thromboplastin Time 26.4 Seconds (21.0-31.0); Prothrombin Time 10.3 Seconds (9.0-12.0)
[2021-01-14 12:28] LABS: Alanine Aminotransferase 25 U/L (12-78); Albumin Level 3.7 gm/dl (3.4-5.0); Aspartate Aminotransferase 20 U/L (15-37); BUN Creatinine Ratio 20.1 (10-20); Bilirubin Direct 0.3 mg/dl (0-0.2); Blood Urea Nitrogen 16 mg/dl (7-18); Calcium 9.4 mg/dl (8.5-10.1); Carbon Dioxide 28 mmol/L (21-32); Chloride 108 mmol/L (98-107); Creatinine Clr Calc Pharmacy 59.3 ml/min; Est GFR (African American) 90.2 ml/min; Est GFR (Non-African American) 77.8 ml/min; Glucose 79 mg/dl (70-99); Lipase 101 U/L (73-393); Magnesium 1.9 mg/dl (1.8-2.4); Potassium 3.5 mmol/L (3.5-5.1); Sodium 143 mmol/L (136-145)
--- NOTE | 2021-01-14 12:36 | XRay Report ---
XR chest 1V portable CLINICAL HISTORY: SEPSIS COMPARISON STUDY: Chest radiograph January 01, 2021. Chest CT January 04, 2021. FINDINGS: Lung volumes are normal. Lungs are clear. There is no pneumothorax or pleural effusion. Car diac size is normal. Mediastinal contours are normal. There is no evidence for pulmonary edema. IMPRESSION: No acute cardiopulmonary findings. ACT 112: Negative or not required by law. Electronically signed by: Juan Jose Laws M.D. 01/14/2021 12:35 PM
[2021-01-14 12:37] LABS: Alkaline Phosphatase 72 U/L (45-117); Bilirubin,Total 0.8 mg/dl (0.2-1); Creatine Kinase 79 U/L (26-192); Globulin 3.6 gm/dl (2.5-4.0); Phosphorus 3.7 mg/dl (2.5-4.9); Total Protein 7.4 gm/dl (6.4-8.2); Troponin I < 0.015 ng/ml (0-0.045)
[2021-01-14] MEDS ORDERED: ACETAMINOPHEN 1,000 MG/100 ML VIAL IV STA (13:29)
[2021-01-14] MEDS ORDERED: CEFEPIME 2,000 MG/20 ML VIAL IV STA (14:19)
[2021-01-14 14:22] LABS: Appearance Urine Clear (Clear); Bacteria Urine Automated Negative (Negative); Blood Urine Negative (Negative); Color Urine Dark Yellow; Epithelial Cell Urine Auto >30 /lpf (0-5); Glucose Urine UA Negative (Negative); Ketones Urine 2+ (Negative); Leukocyte Esterase Urine Negative (Negative); Nitrite Urine Negative (Negative); Protein Urine Trace (Negative); RBC Urine Automated 0-4 /hpf (0-4); Specific Gravity Urine 1.025 (1.000-1.030); Urobilinogen Urine Negative (Negative); pH Urine 6.5 (4.5-7.5)
[2021-01-14 14:24] LABS: Bilirubin Urine 1+ (Negative)
[2021-01-14] MEDS ORDERED: OPTIRAY 320 125ml IV ONE (14:39)
--- NOTE | 2021-01-14 14:57 | CT Scan Report ---
CT OF THE HEAD WITHOUT CONTRAST CLINICAL HISTORY: Altered mental status. Sepsis. COMPARISON STUDY: Head CT January 01, 2021. MRI of the brain July 04, 2020. TECHNIQUE: Helical axial images of the head were obtained without IV contrast. Automated exposure con trol was utilized for the study. A dose lowering technique was utilized adhering to the principles o f ALARA. FINDINGS: No acute intracranial hemorrhage, midline shift or mass effect is present. The ventricular system is unremarkable. The basal cisterns are patent. No extra-axial collections are present. There are no findings to suggest acute dural sinus thrombosis or acute territorial infarct. No significant calvarial abnormalities are present. Visualized portions of the sinuses and mastoid air cells are raad ar. IMPRESSION: No acute intracranial findings. ACT 112: Negative or not required by law. Electronically signed by: Juan Jose Laws M.D. 01/14/2021 2:56 PM
--- NOTE | 2021-01-14 15:10 | CT Scan Report ---
CT OF THE ABDOMEN AND PELVIS WITH CONTRAST CLINICAL HISTORY: Sepsis. COMPARISON STUDY: CT of the abdomen and pelvis October 02, 2017. TECHNIQUE: Following IV administration of 120 mL of Optiray, axial images of the abdomen and pelvis w ere obtained from the lung bases to the proximal femurs. Images were reviewed in the axial, sagittal, and coronal planes. IV contrast was administered without complication. Automated exposure control w as utilized for the study. A dose lowering technique was utilized adhering to the principles of ROHAN Ochoa. CT DOSE: 1322.13 mGy.cm FINDINGS: Please note that the chest CT will be reported separately. No pneumatosis, free air or port al venous gas is present. Mild splenomegaly is unchanged. The adrenal glands and pancreas are unremar kable. There are no hepatic lesions. There is a small gallstone within the gallbladder without eviden ce for acute cholecystitis. A 2.6 cm lesion arising from the upper pole of the left kidney has slight ly increased in size since CT of October 02, 2017. This measures just above water attenuation. A 1.3 cm l esion arising from the lower pole of the right kidney likely reflects a cyst. There is no hydronephro sis. There is no evidence for a bowel obstruction. The appendix is normal. A moderate amount of stool within the colon and rectum is noted. The caliber and wall thickness of small and large bowel are no rmal. There is no ascites or lymphadenopathy. Bladder wall thickening is noted. This is accentuated b y underdistention. There is no acute fracture or suspicious lesion within the visualized skeletal str uctures. Major vasculature is patent. 3.6 cm right fundal fibroid is again noted. IMPRESSION: 1. No bowel obstruction. No bowel wall thickening. Normal appendix. Moderate amount of stool within t he colon and rectum. 2. Bladder wall thickening which could be correlated with urinalysis. 3. 2.6 cm left upper pole renal lesion. This likely reflects a cyst however measures above water atte nuation. Nonemergent renal ultrasound is recommended. ACT 112: Negative or not required by law. Electronically signed by: Juan Jose Laws M.D. 01/14/2021 3:09 PM
--- NOTE | 2021-01-14 15:24 | CT Scan Report ---
CHEST CTA for PULMONARY ARTERIES CT DOSE: HISTORY: Shortness of breath. Sepsis. TECHNIQUE: Multiaxial CT images of the chest were performed following the intravenous administration of contrast to evaluate the pulmonary arteries. Maximal intensity projection images were also obtaine d. A dose lowering technique was utilized adhering to the principles of ALARA. COMPARISON STUDY: Chest 01/04/2021. FINDINGS: Normal caliber thoracic aorta with no evidence for dissection. No pleural or pericardial ef fusions. Please refer to same day abdomen and pelvis CT for further evaluation of the abdominal struc tures. No mediastinal or hilar lymphadenopathy. The heart is top normal in size. Nondiagnostic evalua tion of the bilateral lower lobe and right middle lobe segmental/subsegmental pulmonary arteries due to the motion artifact. However, the remaining pulmonary arteries show no filling defects to suggest a pulmonary embolus. Mild calcified plaque within the coronary arteries. No fractures within the visu alized osseous structures. The central airways are patent. No pneumothorax. No new focal lung consoli dations to suggest pneumonia. Stable pleural-based nodularity along the right major fissure on image 126. This is likely benign. IMPRESSION: 1. No evidence for pulmonary embolus with limitations as described above. 2. No new focal lung consolidations to suggest pneumonia. ACT 112: Negative or not required by law. Electronically signed by: True Iverson M.D. 01/14/2021 3:22 PM
[2021-01-14] MEDS ORDERED: LORazepam 2 MG/4 ML VIAL IV STA ×2 (16:50→18:10)
--- NOTE | 2021-01-14 18:19 | Emergency Department Note ---
Impression & Plan Neuroleptic malignant syndrome, Neuroleptic-induced Parkinsonism, Fever ED Provider Note NAME: ALVARO FRAIRE AGE: 60 SEX: F ARRIVES VIA: Ambulance INFORMANT: Patient, ED PROVIDER(S): Oli Encarnacion MD CHIEF COMPLAINT: Seizure like activity. PLAN: Disposition: Admit MEDICAL DECISION MAKING: The patient is a 60-year-old woman with a past medical history of psychosis/bipolar disorder, neuroleptic induced parkinsonism, tardive dyskinesia who presents to the emergency department from [facility] for concern for worsening mental status and what staff had interpreted as seizure-like episode for "4 minutes" the details of this are unclear as the patient has chronic myoclonic jerking/parkinsonian tremors. Patient's son at the bedside reports that he noticed a change in worsening of her symptoms after she was recently started on Remeron on 01/12 which was initiated as they were attempting to discontinue her Prozac. Additionally, during her last hospitalization it appears that she was started on Invega as well. Prior to today there was no report of any infectious symptoms. On arrival the patient is acute on chronically ill-appearing, exhibiting severe myoclonic Parkinson-like jerking with chronic cogwheel rigidity but also noted t o be diaphoretic and warm to touch with temperature of 37.9, tachycardic in the 110s and hypertensive. The patient appears clinically dry. Her abdomen is benign. She does exhibit ratchet-like effect with passive range of motion of her extremities. She will follow commands and answer questions. Compartments are soft. EKG without overt acute ischemia. Intervals are unremarkable. CXR without ac mini cardiopulmonary process. WBC, H/H and platelets within normal limits. Chemistry without metabolic acidosis. Electrolytes and LFTs unremarkable. Lactic acid 1.4, within normal limits. LFTs unremarkable. Ammonia is not elevated. CPK within normal limits. Troponin negative/undetectable. Lipase is not elevated. Procalcitonin is undetectable. TSH within normal limits. UA without convincing evidence of infection. COVID-[address] of the head negative for acute process. CTA of the chest negative for PE or infectious process. CT abdomen pelvis also negative for acute process. Patient was treated empirically with cefepime given her presentation however given reassuring evaluation that does not suggest infectious process, sepsis less likely. Given the patient's fever and evidence of autonomic instability, rigidity and change in mental status suspicion is raised for neuroleptic malignant syndrome given her history and recent medication changes which includes the addition of Remeron on 01/12. The patient's son reports correlation of her worsening symptoms with the onset of this medication and so is suspected to be the triggering agent. The patient was given repeat dose of IV Ativan and had very rapid improvement in her diaphoresis warmth and tremors. She continues to follow commands and mentate at her recent baseline. Case was reviewed with the Poison Control Center and discussed with toxicology, Dr. Marina. Agrees with management thus far and that NMS is considered a diagnosis of exclusion. Reasonable to proceed with continued management with Ativan for symptoms and would consider bromocriptine 2.5 mg 3 times daily if she were to show any worsening. Additionally, appreciate recommendations to hold antipsychotics at this time. Case was discussed with Dr. Khanna, [facility] hospitalist, [place] hospitalist service will evaluate the patient for admission. Triage Nursing notes reviewed and agree them. Prior medical records reviewed Vital Signs: reviewed and remarkable for fever, tachycardia, hypertension. Differential diagnosis: Epilepsy, infection, hypoglycemia, electrolyte abnormalities, cardiac sources, intracerebral event, trauma, toxicologic, neurologic, syncope, as well as other pathologies. ER treatment provided: See below. Diagnostics interpreted by me: ECG: Sinus tachycardia, 106 bpm, baseline artifact secondary to tremors, no overt ST elevation or depression, QTC 433, QRS 62. Cardiac Monitoring: An order for continuous cardiac monitoring was placed and demonstrated Sinus tachycardia, 106 bpm, no ectopy. Laboratory studies: See below Imaging studies: See below Consultation(s): Poison control center, Toxicology, Dr. Marina. Case was discussed with Dr. Khanna, [facility] hospitalist, who will evaluate the patient for admission. HPI: The patient is a 60-year-old woman with a past medical history of psychosis/bipolar disorder, neuroleptic induced parkinsonism, tardive dyskinesia who presents to the emergency department from [facility] for concern for w orsening mental status and what staff had interpreted as seizure-like episode for "4 minutes" the details of this are unclear as the patient has chronic myoclonic jerking/parkinsonian tremors. Patient's son at the bedside reports that he noticed a change in worsening of her symptoms after she was recently started on Remeron on 01/12 which was initiated as they were attempting to discontinue her Prozac. Additionally, during her last hospitalization it appears that she was started on Invega as well. Prior to today there was no report of any infectious symptoms. ROS: See above HPI for pertinent positives & negatives. A total of 10 systems reviewed and were otherwise negative. PAST MEDICAL HISTORY:See Below PAST SURGICAL HISTORY:See Below FAMILY HISTORY:See Below SOCIAL HISTORY:See Below HOME MEDICATIONS:See Below ALLERGIES:See Below VITALS:See Below PHYSICAL EXAMINATION: GENERAL: Awake, alert, acute on chronically ill-appearing, in no distress HENT: Normocephalic, atraumatic. Oropharynx with dry mucous membranes and otherwise unremarkable. EYES: Normal conjunctiva. Sclera non-icteric. NECK: Supple. No nuchal rigidity. FROM. No JVD. RESPIRATORY: Clear to auscultation. CARDIAC: Tachycardic rate, normal rhythm. Extremities warm and well perfused. Pulses equal. ABDOMEN: Soft, non-distended. No tenderness to palpation. No rebound or guarding. No masses. RECTAL: Deferred. MUSCULOSKELETAL: Chest examination reveals no tenderness. The back is sy mmetrical on inspection without obvious abnormality. There is no CVA tenderness to palpation. No joint edema. Compartments are soft. LOWER EXTREMITIES: Calves are equal size bilaterally and non-tender. No edema. No discoloration. Bilateral heel decubitus ulcers with overlying eschar without discharge, warmth or surrounding erythema. NEURO: Alert to self. Follows commands. Continuous severe myoclonic parkinson- like jerking/cogwheel rigidity SKIN: No rash or jaundice noted. ED COURSE: Critical Care: I have personally spent greater than 65 minutes of critical care time in the direct management of this patient. This includes bedside care, interpretation of diagnostic studies, and testing, discussion with consultants, patient, and family members, and other required patient management activities. This 65 minutes is in excess of all separately billable procedures. Oli Encarnacion MD Past Med/Surg History Medical History Bipolar 1 disorder Chronic diarrhea of unknown origin History of anesthesia reaction difficulty waking Hyperlipidemia Hypertension Hypothyroidism Psychosis Tardive dyskinesia UTI (urinary tract infection) Surgical History History of colonoscopy with polypectomy History of conization of cervix History of cervical conization by laser History of dilation and curettage History of foot surgery x2--right--no hardware History of hysteroscopy History of right oophorectomy History of tooth extraction all upper teeth History of tubal ligation Family History Father Type 2 diabetes mellitus Family hx colonic polyps Brother Type 2 diabetes mellitus Sister Parathyroid disorder Brother Type 2 diabetes mellitus Other No family history of adverse response to anesthesia Social History Smoking Status: Unknown if ever smoked Second Hand Exposure: No; Hx Alcohol Use: No Hx Substance Use: No Preferred Language: Sami Communication Ability: Effective Refractive Surgeon Required: No Beliefs That Will Affect Care: None marital status: Current Living Situation: Spouse current occupational status: employed Feels Safe at Home: Yes Assistive Devices: None Allergies Allergies Allergy/AdvReac Type Severity Reaction Status Date / Time Penicillins Allergy Mild Rash Verified 01/01/21 13:29 Home Meds Home Medications Medication Instructions Recorded Confirmed levothyroxine 100 mcg tablet 75 mcg PO QAM 02/04/20 01/14/21 (Synthroid) aspirin 81 mg tablet 81 mg PO DAILY 05/10/20 01/14/21 valbenazine 40 mg capsule 80 mg HS 11/18/20 01/14/21 (Ingrezza) ergocalciferol (vitamin D2) 1,000 1,000 unit PO WK 01/01/21 01/14/21 unit capsule lorazepam 0.5 mg tablet (Ativan) 0.5 mg PO QID PRN 01/01/21 01/14/21 Previous Rx's Medication Instructions Recorded atorvastatin 20 mg tablet (Lipitor) 20 mg PO HS #30 tab 01/09/21 docusate sodium 100 mg capsule 100 mg PO BID #0 cap 01/09/21 fluoxetine 40 mg capsule 40 mg PO QAM #30 cap 01/09/21 gabapentin 300 mg capsule 300 mg PO TID #90 cap 01/09/21 paliperidone 3 mg tablet,extended 3 mg PO TID #90 tab 01/09/21 release 24 hr (Invega) propranolol 20 mg tablet 20 mg PO BID #60 tab 01/09/21 sennosides 8.6 mg tablet (Senokot) 8.6 mg PO QAM #30 tab 01/09/21 Results & Data (ED) Vital Signs Vital Signs - 24 hr 01/14/21 09:58 01/14/21 10:10 01/14/21 11:28 Temperature 36.7 C Temperature Source Oral Pulse Rate 111 H 88 Pulse Rate [Finger] Pulse Rate from SpO2 Sensor 113 H Pulse Rhythm Regular Pulse Strength Normal Respiratory Rate 30 H 20 30 H Respiratory Effort / Characteristics Non-Labored Respiratory Depth Normal Respiratory Pattern Regular Blood Pressure 146/75 H 145/67 H Blood Pressure [Right Arm] Blood Pressure Mean 98 93 Blood Pressure Mean [Right Arm] Blood Pressure Position Lying Blood Pressure Position [Right Arm] Pulse Oximetry 95 96 95 Oxygen Delivery Method Room Air Room Air Room Air Sepsis Recent Fever Within 48 Hours No Sepsis New/Unexplained Change in Mental Status No Sepsis Action Taken by Nursing No Action Required 01/14/21 11:30 01/14/21 11:33 01/14/21 12:45 Temperature 37.9 C H Temperature Source Oral Pulse Rate Pulse Rate [Finger] 95 H 79 Pulse Rate from SpO2 Sensor Pulse Rhythm Pulse Strength Respiratory Rate 29 H 19 Respiratory Effort / Characteristics Non-Labored Spontaneous Non-Labored Spontaneous Respiratory Depth Normal Normal Respiratory Pattern Regular Regular Blood Pressure Blood Pressure [Right Arm] 142/77 H 146/78 H Blood Pressure Mean Blood Pressure Mean [Right Arm] 98 100 Blood Pressure Position Blood Pressure Position [Right Arm] Pulse Oximetry 99 92 Oxygen Delivery Method Room Air Room Air Sepsis Recent Fever Within 48 Hours Sepsis New/Unexplained Change in Mental Status Sepsis Action Taken by Nursing 01/14/21 13:05 01/14/21 14:20 01/14/21 15:15 Temperature Temperature Source Pulse Rate Pulse Rate [Finger] 89 111 H 107 H Pulse Rate from SpO2 Sensor Pulse Rhythm Pulse Strength Respiratory Rate 20 27 H 26 H Respiratory Effort / Characteristics Non-Labored Spontaneous Non-Labored Spontaneous Non-Labored Spontaneous Respiratory Depth Normal Normal Normal Respiratory Pattern Regular Regular Regular Blood Pressure Blood Pressure [Right Arm] 150/79 H 149/92 H 147/88 H Blood Pressure Mean Blood Pressure Mean [Right Arm] 102 111 107 Blood Pressure Position Blood Pressure Position [Right Arm] Sitting Sitting Sitting Pulse Oximetry 93 96 94 Oxygen Delivery Method Room Air Room Air Room Air Sepsis Recent Fever Within 48 Hours Sepsis New/Unexplained Change in Mental Status Sepsis Action Taken by Nursing 01/14/21 16:23 01/14/21 17:48 01/14/21 19:00 Temperature Temperature Source Pulse Rate Pulse Rate [Finger] 107 H 95 H 87 Pulse Rate from SpO2 Sensor Pulse Rhythm Pulse Strength Respiratory Rate 20 24 18 Respiratory Effort / Characteristics Non-Labored Spontaneous Non-Labored Spontaneous Respiratory Depth Normal Normal Respiratory Pattern Regular Blood Pressure Blood Pressure [Right Arm] 151/90 H 129/84 116/84 Blood Pressure Mean Blood Pressure Mean [Right Arm] 110 99 94 Blood Pressure Position Blood Pressure Position [Right Arm] Sitting Lying Pulse Oximetry 94 95 94 Oxygen Delivery Method Room Air Room Air Room Air Sepsis Recent Fever Within 48 Hours Sepsis New/Unexplained Change in Mental Status Sepsis Action Taken by Nursing 01/14/21 21:18 Temperature 37.5 C Temperature Source Oral Pulse Rate Pulse Rate [Finger] 72 Pulse Rate from SpO2 Sensor Pulse Rhythm Pulse Strength Respiratory Rate 20 Respiratory Effort / Characteristics Non-Labored Spontaneous Respiratory Depth Normal Respiratory Pattern Regular Blood Pressure Blood Pressure [Right Arm] 108/73 Blood Pressure Mean Blood Pressure Mean [Right Arm] 84 Blood Pressure Position Blood Pressure Position [Right Arm] Lying Pulse Oximetry 94 Oxygen Delivery Method Room Air Sepsis Recent Fever Within 48 Hours Sepsis New/Unexplained Change in Mental Status Sepsis Action Taken by Nursing Laboratory Data Attestation: I reviewed the patient's lab results. Result diagrams: 01/14/21 11:33 01/14/21 11:33 Lab Results 01/14/21 01/14/21 01/14/21 Range/Units 11:33 11:33 11:33 WBC 7.03 (4.8-10.8) K/uL RBC 4.59 (4.2-5.4) M/uL Hgb 14.2 (12.0-16.0) g/dL Hct 43.0 (37-47) % MCV 93.7 (80-100) fL MCH 30.9 (25-34) pg MCHC 33.0 (32-36) g/dL RDW Std Deviation 45.9 (36.4-46.3) fL RDW Coeff of Zakiya 13.4 (11.5-14.5) % Plt Count 180 (130-400) K/uL MPV 11.2 H (7.4-10.4) fL Immature Gran % (Auto) 0.1 % Neut % (Auto) 69.7 % Lymph % (Auto) 19.2 % [place] % (Auto) 10.1 % Eos % (Auto) 0.9 % Baso % (Auto) 0.0 % Neut # (Auto) 4.90 (1.4-6.5) K/uL Lymph # (Auto) 1.35 (1.2-3.4) K/uL [place] # (Auto) 0.71 H (0.11-0.59) K/uL Eos # (Auto) 0.06 (0-0.5) K/uL Baso # (Auto) 0.00 (0-0.2) K/uL Immature Gran # (Auto) 0.01 (0.00-0.02) K/uL PT (9.0-12.0) Seconds INR (0.9-1.1) APTT (21.0-31.0) Seconds PTT Ratio VBG pH (7.36-7.41) VBG pCO2 (38-50) mmHg VBG pO2 mmHg VBG HCO3 mmol/L VBG O2 Saturation % VBG Base Excess mEq/L Barometric Pressure mm/Hg Sodium 143 (136-145) mmol/L Potassium 3.5 (3.5-5.1) mmol/L Chloride 108 H (98-107) mmol/L Carbon Dioxide 28 (21-32) mmol/L Anion Gap 7.0 (3-11) BUN 16 (7-18) mg/dl Creatinine 0.81 (0.6-1.2) mg/dl Est Cr Clr Drug Dosing 59.3 ml/min Est GFR ( Amer) 90.2 ml/min Est GFR (Non-Af Amer) 77.8 ml/min BUN/Creatinine Ratio 20.1 H (10-20) Glucose 79 (70-99) mg/dl Lactate (0.4-2.0) mmol/L Calcium 9.4 (8.5-10.1) mg/dl Phosphorus 3.7 (2.5-4.9) mg/dl Magnesium 1.9 (1.8-2.4) mg/dl Total Bilirubin 0.8 (0.2-1) mg/dl Direct Bilirubin 0.3 H (0-0.2) mg/dl AST 20 (15-37) U/L ALT 25 (12-78) U/L Alkaline Phosphatase 72 (45-117) U/L Ammonia (11-32) umol/L Total Creatine Kinase 79 (26-192) U/L Troponin I < 0.015 (0-0.045) ng/ml Total Protein 7.4 (6.4-8.2) gm/dl Albumin 3.7 (3.4-5.0) gm/dl Globulin 3.6 (2.5-4.0) gm/dl Albumin/Globulin Ratio 1.0 (0.9-2) Lipase 101 (73-393) U/L Procalcitonin < 0.05 (0-0.5) ng/ml TSH 1.540 (0.300-4.500) uIu/ml Urine Color Urine Appearance (Clear) Urine pH (4.5-7.5) Ur Specific [place] (1.000-1.030) Urine Protein (Negative) Urine Glucose (UA) (Negative) Urine Ketones (Negative) Urine Blood (Negative) Urine Nitrite (Negative) Urine Bilirubin (Negative) Urine Urobilinogen (Negative) Ur Leukocyte Esterase (Negative) Urine WBC (Auto) (0-5) /hpf Urine RBC (Auto) (0-4) /hpf U Hyaline Cast (Auto) (0-5) /lpf U Epithel Cells (Auto) (0-5) /lpf Urine Bacteria (Auto) (Negative) COVID-19 Eval Order SARS-CoV-2 (PCR) (Negative) 01/14/21 01/14/21 01/14/21 Range/Units 11:33 11:33 11:33 WBC (4.8-10.8) K/uL RBC (4.2-5.4) M/uL Hgb (12.0-16.0) g/dL Hct (37-47) % MCV (80-100) fL MCH (25-34) pg MCHC (32-36) g/dL RDW Std Deviation (36.4-46.3) fL RDW Coeff of Zakiya (11.5-14.5) % Plt Count (130-400) K/uL MPV (7.4-10.4) fL Immature Gran % (Auto) % Neut % (Auto) % Lymph % (Auto) % [place] % (Auto) % Eos % (Auto) % Baso % (Auto) % Neut # (Auto) (1.4-6.5) K/uL Lymph # (Auto) (1.2-3.4) K/uL [place] # (Auto) (0.11-0.59) K/uL Eos # (Auto) (0-0.5) K/uL Baso # (Auto) (0-0.2) K/uL Immature Gran # (Auto) (0.00-0.02) K/uL PT 10.3 (9.0-12.0) Seconds INR 1.0 (0.9-1.1) APTT 26.4 (21.0-31.0) Seconds PTT Ratio 1.0 VBG pH (7.36-7.41) VBG pCO2 (38-50) mmHg VBG pO2 mmHg VBG HCO3 mmol/L VBG O2 Saturation % VBG Base Excess mEq/L Barometric Pressure mm/Hg Sodium (136-145) mmol/L Potassium (3.5-5.1) mmol/L Chloride (98-107) mmol/L Carbon Dioxide (21-32) mmol/L Anion Gap (3-11) BUN (7-18) mg/dl Creatinine (0.6-1.2) mg/dl Est Cr Clr Drug Dosing ml/min Est GFR ( Amer) ml/min Est GFR (Non-Af Amer) ml/min BUN/Creatinine Ratio (10-20) Glucose (70-99) mg/dl Lactate 1.4 (0.4-2.0) mmol/L Calcium (8.5-10.1) mg/dl Phosphorus (2.5-4.9) mg/dl Magnesium (1.8-2.4) mg/dl Total Bilirubin (0.2-1) mg/dl Direct Bilirubin (0-0.2) mg/dl AST (15-37) U/L ALT (12-78) U/L Alkaline Phosphatase (45-117) U/L Ammonia < 10.0 L (11-32) umol/L Total Creatine Kinase (26-192) U/L Troponin I (0-0.045) ng/ml Total Protein (6.4-8.2) gm/dl Albumin (3.4-5.0) gm/dl Globulin (2.5-4.0) gm/dl Albumin/Globulin Ratio (0.9-2) Lipase (73-393) U/L Procalcitonin (0-0.5) ng/ml TSH (0.300-4.500) uIu/ml Urine Color Urine Appearance (Clear) Urine pH (4.5-7.5) Ur Specific [place] (1.000-1.030) Urine Protein (Negative) Urine Glucose (UA) (Negative) Urine Ketones (Negative) Urine Blood (Negative) Urine Nitrite (Negative) Urine Bilirubin (Negative) Urine Urobilinogen (Negative) Ur Leukocyte Esterase (Negative) Urine WBC (Auto) (0-5) /hpf Urine RBC (Auto) (0-4) /hpf U Hyaline Cast (Auto) (0-5) /lpf U Epithel Cells (Auto) (0-5) /lpf Urine Bacteria (Auto) (Negative) COVID-19 Eval Order SARS-CoV-2 (PCR) (Negative) 01/14/21 01/14/21 01/14/21 Range/Units 11:33 11:39 11:39 WBC (4.8-10.8) K/uL RBC (4.2-5.4) M/uL Hgb (12.0-16.0) g/dL Hct (37-47) % MCV (80-100) fL MCH (25-34) pg MCHC (32-36) g/dL RDW Std Deviation (36.4-46.3) fL RDW Coeff of Zakiya (11.5-14.5) % Plt Count (130-400) K/uL MPV (7.4-10.4) fL Immature Gran % (Auto) % Neut % (Auto) % Lymph % (Auto) % [place] % (Auto) % Eos % (Auto) % Baso % (Auto) % Neut # (Auto) (1.4-6.5) K/uL Lymph # (Auto) (1.2-3.4) K/uL [place] # (Auto) (0.11-0.59) K/uL Eos # (Auto) (0-0.5) K/uL Baso # (Auto) (0-0.2) K/uL Immature Gran # (Auto) (0.00-0.02) K/uL PT (9.0-12.0) Seconds INR (0.9-1.1) APTT (21.0-31.0) Seconds PTT Ratio VBG pH 7.43 H (7.36-7.41) VBG pCO2 44 (38-50) mmHg VBG pO2 35 mmHg VBG HCO3 28 mmol/L VBG O2 Saturation 66.7 % VBG Base Excess 3.1 mEq/L Barometric Pressure 726.4 mm/Hg Sodium (136-145) mmol/L Potassium (3.5-5.1) mmol/L Chloride (98-107) mmol/L Carbon Dioxide (21-32) mmol/L Anion Gap (3-11) BUN (7-18) mg/dl Creatinine (0.6-1.2) mg/dl Est Cr Clr Drug Dosing ml/min Est GFR ( Amer) ml/min Est GFR (Non-Af Amer) ml/min BUN/Creatinine Ratio (10-20) Glucose (70-99) mg/dl Lactate (0.4-2.0) mmol/L Calcium (8.5-10.1) mg/dl Phosphorus (2.5-4.9) mg/dl Magnesium (1.8-2.4) mg/dl Total Bilirubin (0.2-1) mg/dl Direct Bilirubin (0-0.2) mg/dl AST (15-37) U/L ALT (12-78) U/L Alkaline Phosphatase (45-117) U/L Ammonia (11-32) umol/L Total Creatine Kinase (26-192) U/L Troponin I (0-0.045) ng/ml Total Protein (6.4-8.2) gm/dl Albumin (3.4-5.0) gm/dl Globulin (2.5-4.0) gm/dl Albumin/Globulin Ratio (0.9-2) Lipase (73-393) U/L Procalcitonin (0-0.5) ng/ml TSH (0.300-4.500) uIu/ml Urine Color Urine Appearance (Clear) Urine pH (4.5-7.5) Ur Specific [place] (1.000-1.030) Urine Protein (Negative) Urine Glucose (UA) (Negative) Urine Ketones (Negative) Urine Blood (Negative) Urine Nitrite (Negative) Urine Bilirubin (Negative) Urine Urobilinogen (Negative) Ur Leukocyte Esterase (Negative) Urine WBC (Auto) (0-5) /hpf Urine RBC (Auto) (0-4) /hpf U Hyaline Cast (Auto) (0-5) /lpf U Epithel Cells (Auto) (0-5) /lpf Urine Bacteria (Auto) (Negative) COVID-19 Eval Order Covid19 at [facility] SARS-CoV-2 (PCR) NEGATIVE (Negative) 01/14/21 Range/Units 13:50 WBC (4.8-10.8) K/uL RBC (4.2-5.4) M/uL Hgb (12.0-16.0) g/dL Hct (37-47) % MCV (80-100) fL MCH (25-34) pg MCHC (32-36) g/dL RDW Std Deviation (36.4-46.3) fL RDW Coeff of Zakiya (11.5-14.5) % Plt Count (130-400) K/uL MPV (7.4-10.4) fL Immature Gran % (Auto) % Neut % (Auto) % Lymph % (Auto) % [place] % (Auto) % Eos % (Auto) % Baso % (Auto) % Neut # (Auto) (1.4-6.5) K/uL Lymph # (Auto) (1.2-3.4) K/uL [place] # (Auto) (0.11-0.59) K/uL Eos # (Auto) (0-0.5) K/uL Baso # (Auto) (0-0.2) K/uL Immature Gran # (Auto) (0.00-0.02) K/uL PT (9.0-12.0) Seconds INR (0.9-1.1) APTT (21.0-31.0) Seconds PTT Ratio VBG pH (7.36-7.41) VBG pCO2 (38-50) mmHg VBG pO2 mmHg VBG HCO3 mmol/L VBG O2 Saturation % VBG Base Excess mEq/L Barometric Pressure mm/Hg Sodium (136-145) mmol/L Potassium (3.5-5.1) mmol/L Chloride (98-107) mmol/L Carbon Dioxide (21-32) mmol/L Anion Gap (3-11) BUN (7-18) mg/dl Creatinine (0.6-1.2) mg/dl Est Cr Clr Drug Dosing ml/min Est GFR ( Amer) ml/min Est GFR (Non-Af Amer) ml/min BUN/Creatinine Ratio (10-20) Glucose (70-99) mg/dl Lactate (0.4-2.0) mmol/L Calcium (8.5-10.1) mg/dl Phosphorus (2.5-4.9) mg/dl Magnesium (1.8-2.4) mg/dl Total Bilirubin (0.2-1) mg/dl Direct Bilirubin (0-0.2) mg/dl AST (15-37) U/L ALT (12-78) U/L Alkaline Phosphatase (45-117) U/L Ammonia (11-32) umol/L Total Creatine Kinase (26-192) U/L Troponin I (0-0.045) ng/ml Total Protein (6.4-8.2) gm/dl Albumin (3.4-5.0) gm/dl Globulin (2.5-4.0) gm/dl Albumin/Globulin Ratio (0.9-2) Lipase (73-393) U/L Procalcitonin (0-0.5) ng/ml TSH (0.300-4.500) uIu/ml Urine Color Dark Yellow Urine Appearance Clear (Clear) Urine pH 6.5 (4.5-7.5) Ur Specific [place] 1.025 (1.000-1.030) Urine Protein Trace H (Negative) Urine Glucose (UA) Negative (Negative) Urine Ketones 2+ H (Negative) Urine Blood Negative (Negative) Urine Nitrite Negative (Negative) Urine Bilirubin 1+ H (Negative) Urine Urobilinogen Negative (Negative) Ur Leukocyte Esterase Negative (Negative) Urine WBC (Auto) 1-5 (0-5) /hpf Urine RBC (Auto) 0-4 (0-4) /hpf U Hyaline Cast (Auto) 5-10 H (0-5) /lpf U Epithel Cells (Auto) >30 H (0-5) /lpf Urine Bacteria (Auto) Negative (Negative) COVID-19 Eval Order SARS-CoV-2 (PCR) (Negative) Administered Medications Discontinued Medications Lorazepam (Ativan) 1 mg in 2 mls @ 2 mls/min IV NOW STA Stop: 01/14/21 11:15 Last Admin: 01/14/21 11:37 Dose: 2 mls/min Documented by: [id number] Acetaminophen (Ofirmev) 1,000 mg in 100 mls @ 400 mls/hr IV NOW STA Stop: 01/14/21 13:43 Last Infusion: 01/14/21 14:07 Dose: 0 mls/hr Documented by: [id number] Admin: 01/14/21 13:46 Dose: 400 mls/hr Documented by: [id number] Cefepime HCl (Maxipime) 2,000 mg in 20 mls @ 5 mls/min IV NOW STA; Protocol Stop: 01/14/21 14:22 Last Admin: 01/14/21 15:32 Dose: 5 mls/min Documented by: [id number] Lorazepam (Ativan) 2 mg in 4 mls @ 4 mls/min IV NOW STA Stop: 01/14/21 16:51 Last Admin: 01/14/21 17:45 Dose: 4 mls/min Documented by: [id number] Lorazepam (Ativan) 2 mg in 4 mls @ 4 mls/min IV NOW STA Stop: 01/14/21 18:11 Last Admin: 01/14/21 18:30 Dose: 4 mls/min Documented by: [id number] Ioversol (Optiray 320 125ml) 120 ml IV ONCE ONE Stop: 01/14/21 14:40 Last Admin: 01/14/21 14:40 Dose: 120 ml Documented by: [id number] Imaging Data Radiologist's Impression: Chest X-Ray 01/14/21 11:11 XR chest 1V portable CLINICAL HISTORY: SEPSIS COMPARISON STUDY: Chest radiograph January 01, 2021. Chest CT January 04, 2021. FINDINGS: Lung volumes are normal. Lungs are clear. There is no pneumothorax or pleural effusion. Cardiac size is normal. Mediastinal contours are normal. There is no evidence for pulmonary edema. IMPRESSION: No acute cardiopulmonary findings. ACT 112: Negative or not required by law. Electronically signed by: Juan Jose Laws M.D. 01/14/2021 12:35 PM Abdomen/Pelvis CT 01/14/21 14:18 CT OF THE ABDOMEN AND PELVIS WITH CONTRAST CLINICAL HISTORY: Sepsis. COMPARISON STUDY: CT of the abdomen and pelvis October 02, 2017. TECHNIQUE: Following IV administration of 120 mL of Optiray, axial images of the abdomen and pelvis were obtained from the lung bases to the proximal femurs. Images were reviewed in the axial, sagittal, and coronal planes. IV contrast was administered without complication. Automated exposure control was utilized for the study. A dose lowering technique was utilized adhering to the principles of ALARA. CT DOSE: 1322.13 mGy.cm FINDINGS: Please note that the chest CT will be reported separately. No pneumatosis, free air or portal venous gas is present. Mild splenomegaly is unchanged. The adrenal glands and pancreas are unremarkable. There are no hepatic lesions. There is a small gallstone within the gallbladder without evidence for acute cholecystitis. A 2.6 cm lesion arising from the upper pole of the left kidney has slightly increased in size since CT of October 02, 2017. This measures just above water attenuation. A 1.3 cm lesion arising from the lower pole of the right kidney likely reflects a cyst. There is no hydronephrosis. There is no evidence for a bowel obstruction. The appendix is normal. A moderate amount of stool within the colon and rectum is noted. The caliber and wall thickness of small and large bowel are normal. There is no ascites or lymp hadenopathy. Bladder wall thickening is noted. This is accentuated by underdistention. There is no acute fracture or suspicious lesion within the visualized skeletal structures. Major vasculature is patent. 3.6 cm right fundal fibroid is again noted. IMPRESSION: 1. No bowel obstruction. No bowel wall thickening. Normal appendix. Moderate amount of stool within the colon and rectum. 2. Bladder wall thickening which could be correlated with urinalysis. 3. 2.6 cm left upper pole renal lesion. This likely reflects a cyst however measures above water attenuation. Nonemergent renal ultrasound is recommended. ACT 112: Negative or not required by law. Electronically signed by: Juan Jose Laws M.D. 01/14/2021 3:09 PM Chest CTA 01/14/21 14:18 CHEST CTA for PULMONARY ARTERIES CT DOSE: HISTORY: Shortness of breath. Sepsis. TECHNIQUE: Multiaxial CT images of the chest were performed following the intr avenous administration of contrast to evaluate the pulmonary arteries. Maximal intensity projection images were also obtained. A dose lowering technique was utilized adhering to the principles of ALARA. COMPARISON STUDY: Chest 01/04/2021. FINDINGS: Normal caliber thoracic aorta with no evidence for dissection. No pleural or pericardial effusions. Please refer to same day abdomen and pelvis CT for further evaluation of the abdominal structures. No mediastinal or hilar lymphadenopathy. The heart is top normal in size. Nondiagnostic evaluation of the bilateral lower lobe and right middle lobe segmental/subsegmental pulmonary arteries due to the motion artifact. However, the remaining pulmonary arteries show no filling defects to suggest a pulmonary embolus. Mild calcified plaque within the coronary arteries. No fractures within the visualized osseous structures. The central airways are patent. No pneumothorax. No new focal lung consolidations to suggest pneumonia. Stable pleural-based nodularity along the right major fissure on image 126. This is likely benign. IMPRESSION: 1. No evidence for pulmonary embolus with limitations as described above. 2. No new focal lung consolidations to suggest pneumonia. ACT 112: Negative or not required by law. Electronically signed by: True Iverson M.D. 01/14/2021 3:[address] 01/14/21 14:18 CT OF THE HEAD WITHOUT CONTRAST CLINICAL HISTORY: Altered mental status. Sepsis. COMPARISON STUDY: Head CT January 01, 2021. MRI of the brain July 04, 2020. TECHNIQUE: Helical axial images of the head were obtained without IV contrast. Automated exposure control was utilized for the study. A dose lowering technique was utilized adhering to the principles of ALARA. FINDINGS: No acute intracranial hemorrhage, midline shift or mass effect is present. The ventricular system is unremarkable. The basal cisterns are patent. No extra-axial collections are present. There are no findings to suggest acute dural sinus thrombosis or acute territorial infarct. No significant calvarial abnormalities are present. Visualized portions of the sinuses and mastoid air cells are clear. IMPRESSION: No acute intracranial findings. ACT 112: Negative or not required by law. Electronically signed by: Juan Jose Laws M.D. 01/14/2021 2:56 PM Discharge Plan Visit Data Chief Complaint: Seizure Stated Complaint: SEIZURE ED Provider: Oli Encarnacion Discharge Problem: Neuroleptic malignant syndrome, Neuroleptic-induced Parkinsonism, Fever Patient Disposition: Being Evaluated by Hospitalist Prescriptions Prescriptions: No Action levothyroxine [Synthroid] 100 mcg tablet 75 mcg PO QAM RF: 0 aspirin 81 mg Tablet 81 mg PO DAILY RF: 0 Ingrezza 40 mg capsule 80 mg HS RF: 0 lorazepam [Ativan] 0.5 mg Tablet 0.5 mg PO QID PRN (Reason: Anxiety) RF: 0 ergocalciferol (vitamin D2) 1,000 unit Capsule 1,000 unit PO WK RF: 0 propranolol 20 mg Tablet 20 mg PO BID Qty: 60 RF: 0 paliperidone [Invega] 3 mg Tablet Extended Release 24hr 3 mg PO TID Qty: 90 RF: 0 sennosides [Senokot] 8.6 mg Tablet 8.6 mg PO QAM Qty: 30 RF: 0 fluoxetine 40 mg capsule 40 mg PO QAM Qty: 30 RF: 0 atorvastatin [Lipitor] 20 mg tablet 20 mg PO HS Qty: 30 RF: 0 docusate sodium 100 mg capsule 100 mg PO BID Qty: 0 RF: 0 gabapentin 300 mg capsule 300 mg PO TID Qty: 90 RF: 0 Referrals Referrals: Sonja Spears DO [Primary Care Provider] - Discharge Problem: Fever Qualifiers: Fever type: unspecified Qualified Code(s): R50.9 - Fever, unspecified
--- NOTE | 2021-01-14 22:09 | History & Physical Report ---
Date of Service January 14, 2021 Assessment & Plan (1) Observed seizure-like activity: Plan: Admit to medical telemetry with seizure precautions Patient is sedated after receiving a total of 5 mg of lorazepam IV from the ED CT head negative Consult neurology Order EEG NPO Lorazepam 1 mg IV every 5 minutes as needed seizure activity Seizure precautions NSS + KCl 20 mEq at 80 mils per hour (2) Hypothyroidism: Plan: Hold levothyroxine 75mcg daily (3) Psychosis: Plan: Psychosis/bipolar 1 disorder/tardive dyskinesia- All medications on hold until more alert (4) Tardive dyskinesia: Plan: See above (5) Bipolar 1 disorder: Plan: See above (6) Fever: Plan: Patient developed temperature to 100.2 F while in the ED- Concern regarding possible aspiration Received cefepime 2 g IV in the ED. Follow and treat if persistent elevated temperature and/or hypoxia. Bilateral heel ulcers with eschar noted do not look actively infected. If temperatures persistent, may need to be looked at as possible source History of Present Illness Chief Complaint: Patient was transferred from [facility] rehab to the ED [facility] for assessment of seizure-like activity Primary Care Provider: Sonja Spears DO The patient is a 60-year-old female with a past medical history including hypothyroidism, ambulatory dysfunction, psychosis, tremors, tardive dyskinesia, cervical radiculopathy, neuroleptic induced parkinsonism, GERD, hypertension, bipolar 1 disorder and hyperlipidemia. Staff at [facility] reports that the patient had altered mental status after an approximate 4-minute interval of a seizure-like episode. Her son, who is at bedside, reports that he thought she had worsening symptoms after she was started on Remeron on 01/12, as she was being transitioned off of Prozac. At the time of my examination, the patient has already received several milligrams of Ativan IV, and is sedated and unable to contribute to her HPI or review of systems. Allergies Allergy/AdvReac Type Severity Reaction Status Date / Time Penicillins Allergy Mild Rash Verified 01/01/21 13:29 Home Medications Medication Instructions Recorded Confirmed Type levothyroxine 100 mcg tablet 75 mcg PO QAM 02/04/20 01/14/21 History (Synthroid) aspirin 81 mg tablet 81 mg PO DAILY 05/10/20 01/14/21 History valbenazine 40 mg capsule 80 mg HS 11/18/20 01/14/21 History (Ingrezza) ergocalciferol (vitamin D2) 1,000 1,000 unit PO WK 01/01/21 01/14/21 History unit capsule lorazepam 0.5 mg tablet (Ativan) 0.5 mg PO QID PRN 01/01/21 01/14/21 History atorvastatin 20 mg tablet (Lipitor) 20 mg PO HS #30 tab 01/09/21 01/14/21 Rx docusate sodium 100 mg capsule 100 mg PO BID #0 cap 01/09/21 01/14/21 Rx fluoxetine 40 mg capsule 40 mg PO QAM #30 cap 01/09/21 01/14/21 Rx gabapentin 300 mg capsule 300 mg PO TID #90 cap 01/09/21 01/14/21 Rx paliperidone 3 mg tablet,extended 3 mg PO TID #90 tab 01/09/21 01/14/21 Rx release 24 hr (Invega) propranolol 20 mg tablet 20 mg PO BID #60 tab 01/09/21 01/14/21 Rx sennosides 8.6 mg tablet (Senokot) 8.6 mg PO QAM #30 tab 01/09/21 01/14/21 Rx Past Med/Surg History Medical History Bipolar 1 disorder Chronic diarrhea of unknown origin History of anesthesia reaction difficulty waking Hyperlipidemia Hypertension Hypothyroidism Psychosis Tardive dyskinesia UTI (urinary tract infection) Surgical History History of colonoscopy with polypectomy History of conization of cervix History of cervical conization by laser History of dilation and curettage History of foot surgery x2--right--no hardware History of hysteroscopy History of right oophorectomy History of tooth extraction all upper teeth History of tubal ligation Family History Father Type 2 diabetes mellitus Family hx colonic polyps Brother Type 2 diabetes mellitus Sister Parathyroid disorder Brother Type 2 diabetes mellitus Other No family history of adverse response to anesthesia Social History Smoking Status: Unknown if ever smoked Second Hand Exposure: No; Hx Alcohol Use: No Hx Substance Use: No Preferred Language: Lithuanian Communication Ability: Effective Jail Keeper Required: No Beliefs That Will Affect Care: None marital status: Current Living Situation: Spouse current occupational status: employed Feels Safe at Home: Yes Assistive Devices: None Review of Systems Review of Systems: Unobtainable post administration of Ativan IV for seizure- like activity Physical Exam Physical Exam: The patient is sedated and nonresponsive, normocephalic and atraumatic, lying in bed and in no acute distress. HEENT--PERRL, EOMI, mucous membranes and oropharynx dry. Neck--supple. No JVD. No bruits. Thyroid normal, trachea midline, no adenopathy. Heart--normal S1 and S2. No murmurs, rubs or gallops. Lungs--clear bilaterally, no respiratory distress, no accessory muscle use. Abdomen--normal bowel sounds and soft. Nontender. Nondistended, no hernias or masses, no organomegaly. Extremities--no cyanosis or clubbing. No edema. Dermatologic--normal skin turgor, normal color, no abnormal lymph nodes, no rash. Neurologic--cranial nerves II through XII grossly intact. Rheumatologic--limited exam Psychiatric--sedated nonresponsive. Results & Data Results & Data ([facility]) Vital Signs (Past 12 Hours) Vital Signs Temp Pulse Pulse Resp BP BP Pulse Ox 01/14/21 21:18 99.5 F 72 20 108/73 94 01/14/21 19:00 87 18 116/84 94 01/14/21 17:48 95 H 24 129/84 95 01/14/21 16:23 107 H 20 151/90 H 94 01/14/21 15:15 107 H 26 H 147/88 H 94 01/14/21 14:20 111 H 27 H 149/92 H 96 01/14/21 13:05 89 20 150/79 H 93 01/14/21 12:45 79 19 146/78 H 92 01/14/21 11:33 100.2 F H 01/14/21 11:30 95 H 29 H 142/77 H 99 01/14/21 11:28 30 H 95 01/14/21 10:10 98.1 F 88 20 145/67 H 96 Laboratory Results Laboratory Results WBC 7.03 K/uL (4.8-10.8) 01/14/21 11:33 RBC 4.59 M/uL (4.2-5.4) 01/14/21 11:33 Hgb 14.2 g/dL (12.0-16.0) 01/14/21 11:33 Hct 43.0 % (37-47) 01/14/21 11:33 MCV 93.7 fL (80-100) 01/14/21 11:33 MCH 30.9 pg (25-34) 01/14/21 11:33 MCHC 33.0 g/dL (32-36) 01/14/21 11:33 RDW Std Deviation 45.9 fL (36.4-46.3) 01/14/21 11:33 RDW Coeff of Zakiya 13.4 % (11.5-14.5) 01/14/21 11:33 Plt Count 180 K/uL (130-400) 01/14/21 11:33 MPV 11.2 fL (7.4-10.4) H 01/14/21 11:33 Immature Gran % (Auto) 0.1 % 01/14/21 11:33 Neut % (Auto) 69.7 % 01/14/21 11:33 Lymph % (Auto) 19.2 % 01/14/21 11:33 Carlton % (Auto) 10.1 % 01/14/21 11:33 Eos % (Auto) 0.9 % 01/14/21 11:33 Baso % (Auto) 0.0 % 01/14/21 11:33 Neut # (Auto) 4.90 K/uL (1.4-6.5) 01/14/21 11:33 Lymph # (Auto) 1.35 K/uL (1.2-3.4) 01/14/21 11:33 Carlton # (Auto) 0.71 K/uL (0.11-0.59) H 01/14/21 11:33 Eos # (Auto) 0.06 K/uL (0-0.5) 01/14/21 11:33 Baso # (Auto) 0.00 K/uL (0-0.2) 01/14/21 11:33 Immature Gran # (Auto) 0.01 K/uL (0.00-0.02) 01/14/21 11:33 PT 10.3 Seconds (9.0-12.0) 01/14/21 11:33 INR 1.0 (0.9-1.1) 01/14/21 11:33 APTT 26.4 Seconds (21.0-31.0) 01/14/21 11:33 PTT Ratio 1.0 01/14/21 11:33 VBG pH 7.43 (7.36-7.41) H 01/14/21 11:33 VBG pCO2 44 mmHg (38-50) 01/14/21 11:33 VBG pO2 35 mmHg 01/14/21 11:33 VBG HCO3 28 mmol/L 01/14/21 11:33 VBG O2 Saturation 66.7 % 01/14/21 11:33 VBG Base Excess 3.1 mEq/L 01/14/21 11:33 Barometric Pressure 726.4 mm/Hg 01/14/21 11:33 Sodium 143 mmol/L (136-145) 01/14/21 11:33 Potassium 3.5 mmol/L (3.5-5.1) 01/14/21 11:33 Chloride 108 mmol/L (98-107) H 01/14/21 11:33 Carbon Dioxide 28 mmol/L (21-32) 01/14/21 11:33 Anion Gap 7.0 (3-11) 01/14/21 11:33 BUN 16 mg/dl (7-18) 01/14/21 11:33 Creatinine 0.81 mg/dl (0.6-1.2) 01/14/21 11:33 Est Cr Clr Drug Dosing 59.3 ml/min 01/14/21 11:33 Est GFR ( Amer) 90.2 ml/min 01/14/21 11:33 Est GFR (Non-Af Amer) 77.8 ml/min 01/14/21 11:33 BUN/Creatinine Ratio 20.1 (10-20) H 01/14/21 11:33 Glucose 79 mg/dl (70-99) 01/14/21 11:33 Lactate 1.4 mmol/L (0.4-2.0) 01/14/21 11:33 Calcium 9.4 mg/dl (8.5-10.1) 01/14/21 11:33 Phosphorus 3.7 mg/dl (2.5-4.9) 01/14/21 11:33 Magnesium 1.9 mg/dl (1.8-2.4) 01/14/21 11:33 Total Bilirubin 0.8 mg/dl (0.2-1) 01/14/21 11:33 Direct Bilirubin 0.3 mg/dl (0-0.2) H 01/14/21 11:33 AST 20 U/L (15-37) 01/14/21 11:33 ALT 25 U/L (12-78) 01/14/21 11:33 Alkaline Phosphatase 72 U/L (45-117) 01/14/21 11:33 Ammonia < 10.0 umol/L (11-32) L 01/14/21 11:33 Total Creatine Kinase 79 U/L (26-192) 01/14/21 11:33 Troponin I < 0.015 ng/ml (0-0.045) 01/14/21 11:33 Total Protein 7.4 gm/dl (6.4-8.2) 01/14/21 11:33 Albumin 3.7 gm/dl (3.4-5.0) 01/14/21 11:33 Globulin 3.6 gm/dl (2.5-4.0) 01/14/21 11:33 Albumin/Globulin Ratio 1.0 (0.9-2) 01/14/21 11:33 Lipase 101 U/L (73-393) 01/14/21 11:33 Procalcitonin < 0.05 ng/ml (0-0.5) 01/14/21 11:33 TSH 1.540 uIu/ml (0.300-4.500) 01/14/21 11:33 Urine Color Dark Yellow 01/14/21 13:50 Urine Appearance Clear (Clear) 01/14/21 13:50 Urine pH 6.5 (4.5-7.5) 01/14/21 13:50 Ur Specific [place] 1.025 (1.000-1.030) 01/14/21 13:50 Urine Protein Trace (Negative) H 01/14/21 13:50 Urine Glucose (UA) Negative (Negative) 01/14/21 13:50 Urine Ketones 2+ (Negative) H 01/14/21 13:50 Urine Blood Negative (Negative) 01/14/21 13:50 Urine Nitrite Negative (Negative) 01/14/21 13:50 Urine Bilirubin 1+ (Negative) H 01/14/21 13:50 Urine Urobilinogen Negative (Negative) 01/14/21 13:50 Ur Leukocyte Esterase Negative (Negative) 01/14/21 13:50 Urine WBC (Auto) 1-5 /hpf (0-5) 01/14/21 13:50 Urine RBC (Auto) 0-4 /hpf (0-4) 01/14/21 13:50 U Hyaline Cast (Auto) 5-10 /lpf (0-5) H 01/14/21 13:50 U Epithel Cells (Auto) >30 /lpf (0-5) H 01/14/21 13:50 Urine Bacteria (Auto) Negative (Negative) 01/14/21 13:50 COVID-19 Eval Order Covid19 at [facility] 01/14/21 11:39 SARS-CoV-2 (PCR) NEGATIVE (Negative) 01/14/21 11:39 Impressions Chest X-Ray 01/14/21 11:11 XR chest 1V portable CLINICAL HISTORY: SEPSIS COMPARISON STUDY: Chest radiograph January 01, 2021. Chest CT January 04, 2021. FINDINGS: Lung volumes are normal. Lungs are clear. There is no pneumothorax or pleural effusion. Cardiac size is normal. Mediastinal contours are normal. There is no evidence for pulmonary edema. IMPRESSION: No acute cardiopulmonary findings. ACT 112: Negative or not required by law. Electronically signed by: Juan Jose Laws M.D. 01/14/2021 12:35 PM Abdomen/Pelvis CT 01/14/21 14:18 CT OF THE ABDOMEN AND PELVIS WITH CONTRAST CLINICAL HISTORY: Sepsis. COMPARISON STUDY: CT of the abdomen and pelvis October 02, 2017. TECHNIQUE: Following IV administration of 120 mL of Optiray, axial images of the abdomen and pelvis were obtained from the lung bases to the proximal femurs. Images were reviewed in the axial, sagittal, and coronal planes. IV contrast was administered without complication. Automated exposure control was utilized for the study. A dose lowering technique was utilized adhering to the principles of ALARA. CT DOSE: 1322.13 mGy.cm FINDINGS: Please note that the chest CT will be reported separately. No pneum atosis, free air or portal venous gas is present. Mild splenomegaly is unchanged. The adrenal glands and pancreas are unremarkable. There are no hepatic lesions. There is a small gallstone within the gallbladder without evidence for acute cholecystitis. A 2.6 cm lesion arising from the upper pole of the left kidney has slightly increased in size since CT of October 02, 2017. This measures just above water attenuation. A 1.3 cm lesion arising from the lower pole of the right kidney likely reflects a cyst. There is no hydronephrosis. There is no evidence for a bowel obstruction. The appendix is normal. A moderate amount of stool within the colon and rectum is noted. The caliber and wall thickness of small and large bowel are normal. There is no ascites or lymphadenopathy. Bladder wall thickening is noted. This is accentuated by underdistention. There is no acute fracture or suspicious lesion within the visualized skeletal structures. Major vasculature is patent. 3.6 cm right fundal fibroid is again noted. IMPRESSION: 1. No bowel obstruction. No bowel wall thickening. Normal appendix. Moderate amount of stool within the colon and rectum. 2. Bladder wall thickening which could be correlated with urinalysis. 3. 2.6 cm left upper pole renal lesion. This likely reflects a cyst however measures above water attenuation. Nonemergent renal ultrasound is recommended. ACT 112: Negative or not required by law. Electronically signed by: Juan Jose Laws M.D. 01/14/2021 3:09 PM Chest CTA 01/14/21 14:18 CHEST CTA for PULMONARY ARTERIES CT DOSE: HISTORY: Shortness of breath. Sepsis. TECHNIQUE: Multiaxial CT images of the chest were performed following the intravenous administration of contrast to evaluate the pulmonary arteries. Maximal intensity projection images were also obtained. A dose lowering technique was utilized adhering to the principles of ALARA. COMPARISON STUDY: Chest 01/04/2021. FINDINGS: Normal caliber thoracic aorta with no evidence for dissection. No pleural or pericardial effusions. Please refer to same day abdomen and pelvis CT for further evaluation of the abdominal structures. No mediastinal or hilar lymphadenopathy. The heart is top normal in size. Nondiagnostic evaluation of the bilateral lower lobe and right middle lobe segmental/subsegmental pulmonary arteries due to the motion artifact. However, the remaining pulmonary arteries show no filling defects to suggest a pulmonary embolus. Mild calcified plaque within the coronary arteries. No fractures within the visualized osseous structu res. The central airways are patent. No pneumothorax. No new focal lung consolidations to suggest pneumonia. Stable pleural-based nodularity along the right major fissure on image 126. This is likely benign. IMPRESSION: 1. No evidence for pulmonary embolus with limitations as described above. 2. No new focal lung consolidations to suggest pneumonia. ACT 112: Negative or not required by law. Electronically signed by: rTue Ivesron M.D. 01/14/2021 3:[address] 01/14/21 14:18 CT OF THE HEAD WITHOUT CONTRAST CLINICAL HISTORY: Altered mental status. Sepsis. COMPARISON STUDY: Head CT January 01, 2021. MRI of the brain July 04, 2020. TECHNIQUE: Helical axial images of the head were obtained without IV contrast. Automated exposure control was utilized for the study. A dose lowering technique was utilized adhering to the principles of ALARA. FINDINGS: No acute intracranial hemorrhage, midline shift or mass effect is present. The ventricular system is unremarkable. The basal cisterns are patent. No extra-axial collections are present. There are no findings to suggest acute dural sinus thrombosis or acute territorial infarct. No significant calvarial abnormalities are present. Visualized portions of the sinuses and mastoid air cells are clear. IMPRESSION: No acute intracranial findings. ACT 112: Negative or not required by law. Electronically signed by: Juan Jose Laws M.D. 01/14/2021 2:56 PM Code Status & VTE Plan Code Status Full code VTE Prophylaxis Plan VTE Prophylaxis will be ordered: Yes PG Care Time/CCT Total # of Minutes Spent Total Time Spent with Patient: Total time spent is greater than 50% in coordination of care (as documented) at patient's floor/unit and/or counseling patient: Coding Level of Care Code 41955 Initial Inpt Care Lvl 3 Diagnoses Observed seizure-like activity R56.9 Hypothyroidism E03.9 Psychosis F29 Tardive dyskinesia G24.01 Bipolar 1 disorder F31.9 Fever R50.9 Fever type: unspecified (1) Fever Fever type: unspecified Qualified Code(s): R50.9 - Fever, unspecified
[2021-01-14] MEDS: NSS + 20MEQ KCL 20 MEQ/1,000 ML BAG IV SCH (23:41)
[2021-01-14] MEDS: ENOXAPARIN INJ 30 MG/0.3 ML SYR SQ SCH (23:41)
--- NOTE | 2021-01-15 05:56 | Electrocardiogram Report ---
Test Reason : Blood Pressure : / mmHG Vent. Rate : 106 BPM Atrial Rate : 106 BPM P-R Int : 120 ms QRS Dur : 062 ms QT Int : 326 ms P-R-T Axes : 082 089 066 degrees QTc Int : 433 ms Poor data quality, interpretation may be adversely affected Sinus tachycardia Otherwise normal ECG When compared with ECG of 10-MAY-2020 14:05, Vent. rate has increased BY 44 BPM Confirmed by Veto Acosta ([id number]) on 01/15/2021 5:56:28 AM Referred By: Confirmed By:Veto Acosta
[2021-01-15] MEDS: LORazepam 1 MG/2 ML VIAL IV PRN ×5 (06:36→12:32)
--- NOTE | 2021-01-15 08:22 | Electroencephalogram ---
EEG Procedure Note Date of Service January 15, 2021 Start / End Times Start Time: 533 End Time: [address] Grimaldo History 60-year-old with history of abnormal involuntary movements and seizure-like activity. Home Medication List Medication Instructions Recorded Confirmed Type levothyroxine 100 mcg tablet 75 mcg PO QAM 02/04/20 01/14/21 History (Synthroid) aspirin 81 mg tablet 81 mg PO DAILY 05/10/20 01/14/21 History valbenazine 40 mg capsule 80 mg HS 11/18/20 01/14/21 History (Ingrezza) ergocalciferol (vitamin D2) 1,000 1,000 unit PO WK 01/01/21 01/14/21 History unit capsule lorazepam 0.5 mg tablet (Ativan) 0.5 mg PO QID PRN 01/01/21 01/14/21 History atorvastatin 20 mg tablet (Lipitor) 20 mg PO HS #30 tab 01/09/21 01/14/21 Rx docusate sodium 100 mg capsule 100 mg PO BID #0 cap 01/09/21 01/14/21 Rx fluoxetine 40 mg capsule 40 mg PO QAM #30 cap 01/09/21 01/14/21 Rx gabapentin 300 mg capsule 300 mg PO TID #90 cap 01/09/21 01/14/21 Rx paliperidone 3 mg tablet,extended 3 mg PO TID #90 tab 01/09/21 01/14/21 Rx release 24 hr (Invega) propranolol 20 mg tablet 20 mg PO BID #60 tab 01/09/21 01/14/21 Rx sennosides 8.6 mg tablet (Senokot) 8.6 mg PO QAM #30 tab 01/09/21 01/14/21 Rx Inpatient Medication List Enoxaparin Sodium (Enoxaparin Inj 30 Mg/0.3 Ml Syr) 30 mg SQ Q24H DONNIE Stop: 02/13/21 23:14 Last Admin: 01/14/21 23:41 Dose: 30 mg Documented by: [id number] Potassium Chloride/Sodium Chloride (Normal Saline W/20 Meq Kcl) 20 meq in 1,000 mls @ 80 mls/hr IV .[id number] DONNIE Stop: 02/13/21 23:14 Last Admin: 01/14/21 23:41 Dose: 80 mls/hr Documented by: [id number] Lorazepam (Ativan) 1 mg in 2 mls @ 0.5 mls/min IV UD PRN PRN Reason: Anxiety/Agitation Stop: 02/13/21 22:56 Last Admin: 01/15/21 07:54 Dose: 0.5 mls/min Documented by: [id number] Admin: 01/15/21 06:48 Dose: 0.5 mls/min Documented by: [id number] Admin: 01/15/21 06:36 Dose: 0.5 mls/min Documented by: [id number] Discontinued Medications Lorazepam (Ativan) 1 mg in 2 mls @ 2 mls/min IV NOW STA Stop: 01/14/21 11:15 Last Admin: 01/14/21 11:37 Dose: 2 mls/min Documented by: [id number] Acetaminophen (Ofirmev) 1,000 mg in 100 mls @ 400 mls/hr IV NOW STA Stop: 01/14/21 13:43 Last Infusion: 01/14/21 14:07 Dose: 0 mls/hr Documented by: [id number] Admin: 01/14/21 13:46 Dose: 400 mls/hr Documented by: [id number] Cefepime HCl (Maxipime) 2,000 mg in 20 mls @ 5 mls/min IV NOW STA; Protocol Stop: 01/14/21 14:22 Last Admin: 01/14/21 15:32 Dose: 5 mls/min Documented by: [id number] Lorazepam (Ativan) 2 mg in 4 mls @ 4 mls/min IV NOW STA Stop: 01/14/21 16:51 Last Admin: 01/14/21 17:45 Dose: 4 mls/min Documented by: [id number] Lorazepam (Ativan) 2 mg in 4 mls @ 4 mls/min IV NOW STA Stop: 01/14/21 18:11 Last Admin: 01/14/21 18:30 Dose: 4 mls/min Documented by: [id number] Ioversol (Optiray 320 125ml) 120 ml IV ONCE ONE Stop: 01/14/21 14:40 Last Admin: 01/14/21 14:40 Dose: 120 ml Documented by: [id number] Description This is a 21 electrode EEG with a single channel dedicated to limited EKG. The electrodes were placed in accordance with the International 10-20 system. Interpretation The predominant background activity consists of an irregular 6-7 Hz activity, of up to 50 mV in amplitude,seen symmetrically distributed over the posterior head regions bilaterally, spreading anteriorly diffusely symmetrically. This activity has no attenuation with eye opening or other alerting procedures. Photic stimulation was performed and elicited no change in the background activity and no abnormal responses were seen. Hyperventilation was not performed. A mild to moderate amount of muscle artifact activity was seen in the bifrontal head regions throughout the entire recording, hinder interpretation in those leads. Otherwise, there was little other artifact activity contaminating the recording. Throughout the recording, no focal abnormalities or potentially epileptogenic discharges were seen. The patient may have entered the drowsy state briefly, from time to time with no further abnormality seen. Deeper stages of sleep were not recorded. In summary, this EEG was abnormal and showed mild generalized dysrhythmia, without focal abnormalities or potentially epileptogenic discharges. Clinical Correlation The abscence of potentially epileptogenic activity does not exclude a seizure disorder, since interictally, EEGs can be normal. However, in this case, the involuntary movements are near continuous and therefore not representing seizures. the mild generalized slowing is consistent with an encephalopathy of a mild nature and could be due to a wide variety of causes, including postictal. [facility] EEG Procedure Codes Indication for Procedure (1) Observed seizure-like activity: Neurology Neurology: 54411 EEG include record awake & drowsy
--- NOTE | 2021-01-15 09:31 | Neurology Consultation ---
Date of Consultation January 15, 2021 Assessment & Plan (1) Observed seizure-like activity: (2) Neuroleptic-induced Parkinsonism: (3) Tardive dyskinesia: (4) Tremors of nervous system: (5) Bipolar 1 disorder: (6) Psychosis: This is a very complicated patient neurologically because of the medication she requires for her mental health conditions, and the neurologic side effects these medications produce. When I saw her back in 2017 she had ataxia, cognitive issues and severe tardive dyskinesia. I felt that Seroquel gave her the tardive dyskinesia and she was showing troublesome chronic side effects from lithium. Currently, she has a bizarre resting tremor, of a coarse, irregular nature in the left greater than right upper extremities (which is the opposite of when I saw her earlier in December). She does have some very mild action tremor probably dampen with propranolol. Th ere is severe bradykinesia, masklike face, and cogwheel rigidity of all 4 limbs. The paliperidone is likely giving her the extra pyramidal (Parkinson's) side effects. We have no other data to support a neurodegenerative disease. valbenazine deplete dopamine and will likely make the Parkinson's worse as well. Propranolol would help an action tremor but not a Parkinson's tremor. I do not see any ataxia of the limbs and she has no tardive dyskinesia of the face or tongue (that I saw 3 years ago). She is not displaying any obvious signs of an irreversible chronic lithium toxicity ( she had been on lithium since 1987 up until early 2020) . I spoke with Dr. Rodriguez regarding her medications and her psychiatric and neurologic issues. She was described as having seizure-like activity yesterday. I am not convinced that she has seizures and her EEG was unremarkable despite activity. This morning she had bilateral movement activity but was talking and following commands despite the activity. This would not be consistent with seizures. The EEG was slow in general, consistent with very mild encephalopathy. therefore, overall, I doubt she is having seizures. She did have 1 elevated temperature reading yesterday but not today. Her white count shows no signs of infection. She is mildly diaphoretic with some tachycardia but the CK was normal. Overall, I am not certain she has neurolytic malignant syndrome, although an early form cannot be excluded. Although the patient is on a somewhat medium dose of fluoxetine, I am not certain we are dealing with serotonin syndrome either. Recommendations: 1. Consider MRI of the brain, with and without contrast 2. psychiatry will be changing medication. Perhaps it is best to discontinue her neuroleptic and valbenazine and see what she is like neurologically and psychiatrically at baseline 3. Gabapentin 300 milligrams 3 times a day probably was helping her tremor some. Propranolol 20 milligrams twice a day was probably helping her action tremor as well. 4. Increase activity with physical and occupational therapy. 5. if psychiatry felt that an anticonvulsant would help her mood stabilization, I would suggest lamotrigine, as this is an excellent anticonvulsant. She had been on this in the past. Avoid valproic acid as this can increase tremors. 6. I will follow. 7. If neuroleptic malignant syndrome is considered, discontinuing the offending agent (the neuroleptics ) would be The 1st step. We could consider dantrolene or bromocriptine after that, if needed Overall, I spent a total of 115 minutes with this case including review of records, direct evaluation the patient at bedside, and discussion of the case with the patient and RN at bedside, Dr. Ramirez, and Dr. rodriguez including differential diagnosis and treatment options. History of Present Illness Reason for Consultation: Patient is a 60-year-old known to me from previous a dmissions, who I was asked to see at the request Dr. Grimaldo, for neurologic consultation regarding seizures and other issues Requesting Physician: Dr. Grimaldo Attending Physician: Marc Ramirez MD History of Present Illness This patient has a longstanding psychiatric history with severe bipolar disorder, alison, depression, schizophrenia, hallucinations. She has had multiple psychiatric admissions and been on multiple different psychiatric medications over several years. She has had cognitive issues as well. I 1st saw this patient in June of 2017 for abnormal involuntary movements. At that time she had severe dyskinesia of her tongue, head, and lips. She had rapid eye blinking and myoclonic jerks. Her exam revealed mild coarse postural and action tremor but no resting tremor. she had mild ataxia the upper extremities and gait. Motor strength was symmetrical being 5/5 throughout. She had good tone in the limbs without rigidity. Reflexes were 2/4 throughout except for absent Achilles tendon reflexes. Toes were downgoing to plantar stimulation bilaterally. At that time and noted she had been on lithium since 1987. [place] was really 1 of the only medications helped her. Also, she was on a very large dose of Seroquel at 500 mg per day and that was recently rapidly discontinued just prior to my consultation. We diagnosed tardive dyskinesia likely secondary to Seroquel and found no dystonia or Parkinson's disease features. I was very concerned at that time about chronic (reversible or irreversible ) lithium toxicity. 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 Apparently her lithium was not discontinued until June of this year. She was admitted to the hospital for falling, visual and auditory hallucinations, and memory decline. she had been on valbenazine, but was discharged on clozapine, fluoxetine, and Lamictal. She is followed by [facility] (Susana Higgins and Dr. Spears) for her psychiatric condition and by mid December of this year, she was on valbenazine 40 mg a day, fluoxetine 40 mg a day, Risperdal 2 mg in the morning, paliperidone 1.5 mg ER daily, Lamictal 150 mg a day, and clozapine 100 mg a day. The patient has had 3 normal MRIs of the brain over the last year. There is no evidence of stroke or significant small vessel ischemic change. She was admitted January 01 for increasing tremor and psychosis. She was unable to care for herself. she was afebrile and described as tremulous. CT scan of the head was unremarkable. CBC, Chem profile, TSH, urinalysis, and tox screen were unremarkable. Total CK was normal. neurologic examination was remarkable for a bizarre resting tremor of a coarse, irregular nature, right greater than left upper extremity. these tremors dampened with activity. She had no ataxia, but she did have some mild action tremor bilaterally. Strength was normal and she had bradykinesia and diffuse moderate cogwheel rigidity. She had an upgoing toe on the right. She was perseverating on certain words Otherwise was cooperative. She was seen by Psychiatry and clozapine, Lamictal, and risperidone were all discontinued. On March 11, she was [facility] on 81 mg aspirin, fluoxetine 40 mg, gabapentin 300 mg TID, propranolol 20 mg twice a day, valbenazine 80 mg at bedtime, and paliperidone 3 mg TID , and lorazepam 0.5 milligrams 4 times a day as needed. She arrived to the emergency room January 14 at 0958, with a temperature of 36.7, pulse 111, respiratory rate 30, blood pressure 145/75, and O2 saturation of 95 percent. she was described as alert with severe "myoclonic-Parkinson's jerking" and severe cogwheel rigidity. CBC was unremarkable. Chem profile was unremarkable. CK was 79 lactate 1.4, ammonia less than 10, and TSH 1.54. Chest x-ray was unremarkable. CT scan of the abdomen and pelvis was unremarkable. CT of the chest revealed no pneumonia or PE. CT scan of the head was unremarkable She was given a total of 5 milligrams of lorazepam in emergency room and started on Maxipime 2 grams thinking there may be some infection. She had no seizure activity during admission. This morning at approximately 0830, a "code purple" was called from a physician who was walking by the bed and thought she was unresponsive and seizing. Nursing arrived and the patient awoke and was talking despite her movements. She was answering questions and following commands. EEG was obtained this morning and showed mild slowing in general only. There were no focal abnormalities or potentially epileptogenic discharges. The patient herself says she is weak and can't move. She has pain in her legs and arms. She does not have a headache. Allergies Allergy/AdvReac Type Severity Reaction Status Date / Time Penicillins Allergy Mild Rash Verified 01/01/21 13:29 Home Medications Medication Instructions Recorded Confirmed Type levothyroxine 100 mcg tablet 75 mcg PO QAM 02/04/20 01/14/21 History (Synthroid) aspirin 81 mg tablet 81 mg PO DAILY 05/10/20 01/14/21 History valbenazine 40 mg capsule 80 mg HS 11/18/20 01/14/21 History (Ingrezza) ergocalciferol (vitamin D2) 1,000 1,000 unit PO WK 01/01/21 01/14/21 History unit capsule lorazepam 0.5 mg tablet (Ativan) 0.5 mg PO QID PRN 01/01/21 01/14/21 History atorvastatin 20 mg tablet (Lipitor) 20 mg PO HS #30 tab 01/09/21 01/14/21 Rx docusate sodium 100 mg capsule 100 mg PO BID #0 cap 01/09/21 01/14/21 Rx fluoxetine 40 mg capsule 40 mg PO QAM #30 cap 01/09/21 01/14/21 Rx gabapentin 300 mg capsule 300 mg PO TID #90 cap 01/09/21 01/14/21 Rx paliperidone 3 mg tablet,extended 3 mg PO TID #90 tab 01/09/21 01/14/21 Rx release 24 hr (Invega) propranolol 20 mg tablet 20 mg PO BID #60 tab 01/09/21 01/14/21 Rx sennosides 8.6 mg tablet (Senokot) 8.6 mg PO QAM #30 tab 01/09/21 01/14/21 Rx Patient History Medical History Bipolar 1 disorder Chronic diarrhea of unknown origin History of anesthesia reaction difficulty waking Hyperlipidemia Hypertension Hypothyroidism Psychosis Tardive dyskinesia UTI (urinary tract infection) Surgical History History of colonoscopy with polypectomy History of conization of cervix History of cervical conization by laser History of dilation and curettage History of foot surgery x2--right--no hardware History of hysteroscopy History of right oophorectomy History of tooth extraction all upper teeth History of tubal ligation Family History Father Type 2 diabetes mellitus Family hx colonic polyps Brother Type 2 diabetes mellitus Sister Parathyroid disorder Brother Type 2 diabetes mellitus Other No family history of adverse response to anesthesia Social History Smoking Status: Never smoker Second Hand Exposure: No; Hx Alcohol Use: No Hx Substance Use: No Preferred Language: Arabic Communication Ability: Effective Brick Stacker Required: No Beliefs That Will Affect Care: None marital status: Current Living Situation: Spouse current occupational status: employed Feels Safe at Home: Yes Assistive Devices: Denture - Upper, Denture - Lower and Walker Review of Systems Constitutional: + fatigue and + weakness; no fever Eyes: no diplopia, no eye pain and no worsening vision Ear, Nose, Mouth, Throat: + dizziness; no ear pain, no tinnitus, no hearing loss, no hoarseness and no dysphagia Respiratory: no cough and no dyspnea Cardiovascular: no chest pain, no palpitations and no lightheadedness Gastrointestinal: no abdominal pain, no nausea and no vomiting Genitourinary: no dysuria, no urinary frequency and no urinary incontinence Musculoskeletal: + back pain; no neck pain, no radicular pain, no joint pain and no myalgia Integumentary: no rash and no lesions Neurologic: + generalized weakness, + tremor(s) and + abnormal movements; no gait abnormality, no localized weakness, no tingling, no numbness, no headache(s), no abnormal speech, no confusion and no memory loss Psychiatric: no depression, no irritability, no anxiety, no difficulty concentrating, no confusion and no hallucinations Endocrine: no fatigue and no flushing Hematologic / Lymphatic: no easy bleeding and no easy bruising Allergy / Immunological: no urticaria and no problem reported Exam (Neuro) Physical Exam: The patient is right-handed. The patient was sleeping when I arrived in the room but walking over to the bed and talking to her in a regular voice, she opened her eyes and nodded that she remembered seeing me before. Speech is sparse but there is no obvious aphasia or dysarthria. Although not as much as I remember from her previous admission, she still will perseverate on a word at times such as "I can't". Mood is reasonable affect is flat thought processes are difficult to assess as she is not necessarily cooperating with me to answer questions but she does seem to have some cognitive issues. Throughout her talking to me and following commands, she was having bilateral shaking. Pupils are 4 mm bilaterally and reactive to light. Extraocular eye muscles are intact without nystagmus. Visual acuity and visual egan seem normal grossly to confrontation. She has a masklike face and decreased blink rate. She has severe bradykinesia in general. In addition, she has severe cogwheel rigidity in all 4 limbs There are no deficits to sensation in the face in all 3 distributions of the fifth cranial nerve bilaterally. Corneal reflexes are positive bilaterally. Facial strength and symmetry was normal bilaterally. Hearing seems normal bilaterally. Palate moves well without asymmetry. There is normal sternocleidomastoid and trapezius (shoulder shrug) strength bilaterally. Tongue is midline with good strength bilaterally. I see no abnormal movements of the tongue jaw or head. She has no head tremor. Neck has a full range of motion without discomfort. Cervical, thoracic, and lumbar spine are nontender to palpation. Gait is not testable and stance sitting up in bed is fair. She tends to want to fall back into bed At rest, with her eyes closed and not knowing that I was in the room, I observed her to have some mild left greater than right resting tremor and no abnormal movements of the legs or face. After I woke her, the resting tremor in the arms became course and irregular. With distraction and her focusing on the left upper extremity she had very little resting tremor on the right. With distraction and focusing on the right upper extremity, she had mild resting tremor on the left. She has difficulty with [id number] testing but there is no obvious ataxia. There may be some very mild action tremor bilaterally, but this was irregular. There may be some mild dystonic posturing of the left foot. Motor strength is 4/5 diffusely in the arms and legs but I detect lack of effort. Certainly, strength is symmetrical in the limbs. There is no atrophy noted in the muscles. Muscle bulk is normal, there is no tenderness to palpation, no myotonia to percussion, and no fasciculations seen. Sensory examination is intact to touch and pin throughout all 4 limbs diffusely. Reflexes are 1/4 in the biceps, triceps, brachioradialis, and quadriceps tendons bilaterally. Achilles tendon reflexes are absent bilaterally. There is no clonus bilaterally. Toes are downgoing with plantar stimulation on the left and upgoing on the right. Peripheral pulses are present and of normal quality distally in all 4 limbs. There is no peripheral edema noted in the limbs. Results & Data ([facility]) Vital Signs (Past 12 Hours) Vital Signs Temp Pulse Pulse Resp BP BP Pulse Ox 01/15/21 08:18 113 H 01/15/21 07:47 37.0 C 104 H 20 130/75 94 01/15/21 03:45 36.9 C 76 20 112/72 97 01/14/21 22:57 36.8 C 74 71 18 120/76 95 01/14/21 22:00 70 16 105/70 96 01/14/21 21:18 37.5 C 72 20 108/73 94 PG Care Time/CCT Total # of Minutes Spent Total Time Spent with Patient: Total time spent is greater than 50% in coordination of care (as documented) at patient's floor/unit and/or counseling patient: Coding Level of Care Code 52951 Initial Inpt Care Lvl 3 Diagnoses Observed seizure-like activity R56.9 Neuroleptic-induced Parkinsonism G21.11 Tardive dyskinesia G24.01 Tremors of nervous system R25.1 Bipolar 1 disorder F31.9 Psychosis F29 Time Spent (min) 115 Comment Add modifiers as able
[2021-01-15] MEDS: NSS + 20MEQ KCL 20 MEQ/1,000 ML BAG IV SCH ×2 (11:03→23:22)
[2021-01-15] MEDS ORDERED: BENZTROPINE MESYLATE 1 MG/ML 2 ML AMP IV STA (14:48)
[2021-01-15] MEDS ORDERED: BENZTROPINE MESYLATE 1 MG/ML 2 ML AMP IM STA ×2 (14:48→16:55)
--- NOTE | 2021-01-15 15:13 | Hospitalist Progress Note ---
Date of Service January 15, 2021 Assessment & Plan (1) Observed seizure-like activity: Plan: Patient's seizure-like activity does not appear to be true tonic-clonic seizure as she is responsive and answers questions despite movement in all 4 limbs. EEG on 01/15 was done during these tremors and showed generalized slowing, but no seizure activity. - Ddx includes medication-induced tremor vs. pseudoseizure. - Discussed with Dr. Garza and Dr. Rodriguez on 01/15 -> Will try to adjust/taper some meds. -> Will trial benztropine (2) Fever: Plan: Patient developed temperature to 100.2 F while in the ED. Unclear cause; some concern regarding possible aspiration. Bilateral heel ulcers with eschar noted do not look actively infected. - Received cefepime 2 g IV in the ED. - Presently comfortable on room air. -> Monitor (3) Hypothyroidism: Plan: TSH was 1.5 this admission. - Continue levothyroxine 75 mcg daily (4) Psychosis: Plan: Psychosis/bipolar 1 disorder - Per psychiatry recommendations (5) Tardive dyskinesia: Plan: None noted more recently as this may have been a side effect of lithium. - See above (6) Bipolar 1 disorder: Plan: - See above (7) Hyperlipidemia: Plan: - Continue statin (8) Hypertension: Plan: BP is 160/65 today. I do not see any home HTN medications. - Monitor BP (9) DVT prophylaxis: Plan: Lovenox 30 mg SQ daily Admission and Anticipated Discharge Date Admission Date: January 14, 2021 Subjective Unable to complete ROS. The patient responds, but does not answer questions sensibly, saying "yes" to all questions. Review of Systems Review of Systems: Unobtainable due to cognitive status Physical Exam Constitutional: WD/WN, vitals as above Eyes: EOM intact bilaterally; no conjunctival abnormality ENMT: external ear and nose normal, oropharynx normal Neck: trachea midline, no thyromegaly normal visual inspection Respiratory: normal respiratory effort, lungs clear to auscultation no respiratory distress Cardiovascular: RRR, no murmur, no edema Gastrointestinal (Abdomen): Inspection/Auscultation: abdomen normal to inspection; abdomen not distended Musculoskeletal: no cyanosis or clubbing, extremities motor strength 5/5 Skin: no rashes, warm and dry Neurologic: moves all extremities and + confused Motor/Sensory: + tremor (Course tremor throughout) Psychiatric: Orientation: alert, oriented to person and cooperative Results & Data Results & Data ([facility]) Vital Signs (Past 12 Hours) Vital Signs Temp Pulse Pulse Resp BP BP Pulse Ox 01/15/21 15:01 95 H 01/15/21 11:01 37.3 C 102 H 20 162/64 H 95 01/15/21 08:18 113 H 01/15/21 07:47 37.0 C 104 H 20 130/75 94 01/15/21 03:45 36.9 C 76 20 112/72 97 PG Care Time/CCT Total # of Minutes Spent Total Time Spent with Patient: Total time spent is greater than 50% in coordination of care (as documented) at patient's floor/unit and/or counseling patient: Coding Level of Care Code 75458 Subseq Hosp Care Lvl 3 Diagnoses Observed seizure-like activity R56.9 Hypothyroidism E03.9 Psychosis F29 Tardive dyskinesia G24.01 Bipolar 1 disorder F31.9 Fever R50.9 Fever type: unspecified DVT prophylaxis Z29.9 Hyperlipidemia E78.5 Hypertension I10 (1) Fever Fever type: unspecified Qualified Code(s): R50.9 - Fever, unspecified
--- NOTE | 2021-01-15 15:54 | Psychiatric Consultation ---
Date of Consultation January 15, 2021 Impression / Recommendations Impression 60 yo female with longstanding history of bipolar disorder, presents with acute myoclonus and dystonia, ongoing confusion previously attributed to psychiatric condition, neurology doubts post ictal (and I agree), and likely side effects/delirium/mild serotonin syndrome from psychiatric polypharmacy. she has had muliple med changes and chronic psych issues that difficult to tell what is medication side effect vs true underlying Parkinson's disease. In my opinion she is exquisitely sensitive to antipsychotic medications which is a feature commonly associated with lewy body dementia which often presents with hallucinations in excess of cognitive disability. It is possible some of these symptoms could have been easily mistaken for flaring of her psychiatric illness. (1) Bipolar 1 disorder: (2) Dystonic drug reaction: (3) Tardive dyskinesia: agree with holding her psychoactive medications. Cogentin 2 mg IM ordered and will assess response. Primary service notified of aspiration risk. Family would support restart of low dose lithium to restabilize if bipolar symptoms emerge. Will coordinate with neurology. Psych History Identifying Data 60 yo female with a longstanding history of bipolar disorder presented for readmission from [facility] for myoclonus and possible seizure activity. Consult is by [facility] hospitalist service for complex psychiatric medication regimen. consult included extensive communication with Drs. Ramirez and Greg (neuro) and the patient's son Bennie Bowman. She is known to me from various episodes of care. 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 My last contact with her was during her most recent stay on [facility] where she had debilitating oral dyskinesias. She apparently responded to clozaril during that stay and was started on Ingrezza with significant initial improvement. Reportedly she "just crashed" meaning becoming more psychotic after some time and got admitted to the [facility] by November. She had significant decline in ability to attend to ADls while there, barely ambulated per son and was discharged with a pressure ulcer. There have since been multiple changes in her antipsychotic medications, Vraylar, Risperdal, Invega which per son all resulted in worsening of her functioning. When asked re: her more recent psychotic symptoms at home he describes her wandering toward evening, poor sleep, saying things that "don't make sense", and admittedly he has administered an old supply of Ativan 0.5 mg at times for calming effect. He states he did not realize she was back in the emergency room until today but was aware of her difficulties on transfer to rehab facility. Earlier in the week there were discussions about decreasing her Prozac in preparation for a trial of Remeron for ?depression--mainly seeming to have low mood around her medical decline. She went from yelling out at times and repeatedly asking for water to "strange that her head/neck turned red on 1 side", seemingly some dysautonomia as a prelude to her worsening tremor and jerks. Past Psychiatric History Previous Psych History: currently followed by Tyra Higgins at [place], multiple inpatient psychiatric hospitalizations--2 in 2020 as per HPI. with multiple antipsychotic trials (exhaustive list on file). Allergies Allergy/AdvReac Type Severity Reaction Status Date / Time Penicillins Allergy Mild Rash Verified 01/01/21 13:29 Home Medications Medication Instructions Recorded Confirmed Type levothyroxine 100 mcg tablet 75 mcg PO QAM 02/04/20 01/14/21 History (Synthroid) aspirin 81 mg tablet 81 mg PO DAILY 05/10/20 01/14/21 History valbenazine 40 mg capsule 80 mg HS 11/18/20 01/14/21 History (Ingrezza) ergocalciferol (vitamin D2) 1,000 1,000 unit PO WK 01/01/21 01/14/21 History unit capsule lorazepam 0.5 mg tablet (Ativan) 0.5 mg PO QID PRN 01/01/21 01/14/21 History atorvastatin 20 mg tablet (Lipitor) 20 mg PO HS #30 tab 01/09/21 01/14/21 Rx docusate sodium 100 mg capsule 100 mg PO BID #0 cap 01/09/21 01/14/21 Rx fluoxetine 40 mg capsule 40 mg PO QAM #30 cap 01/09/21 01/14/21 Rx gabapentin 300 mg capsule 300 mg PO TID #90 cap 01/09/21 01/14/21 Rx paliperidone 3 mg tablet,extended 3 mg PO TID #90 tab 01/09/21 01/14/21 Rx release 24 hr (Invega) propranolol 20 mg tablet 20 mg PO BID #60 tab 01/09/21 01/14/21 Rx sennosides 8.6 mg tablet (Senokot) 8.6 mg PO QAM #30 tab 01/09/21 01/14/21 Rx Substance Abuse History no D&A use Personal History Living Arrangements: Home (with of 12 years) Highest Grade Completed: High School Graduate Employment Status: 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 Patient History Medical History Bipolar 1 disorder Chronic diarrhea of unknown origin History of anesthesia reaction difficulty waking Hyperlipidemia Hypertension Hypothyroidism Psychosis Tardive dyskinesia UTI (urinary tract infection) Surgical History History of colonoscopy with polypectomy History of conization of cervix History of cervical conization by laser History of dilation and curettage History of foot surgery x2--right--no hardware History of hysteroscopy History of right oophorectomy History of tooth extraction all upper teeth History of tubal ligation Family History Father Type 2 diabetes mellitus Family hx colonic polyps Brother Type 2 diabetes mellitus Sister Parathyroid disorder Brother Type 2 diabetes mellitus Other No family history of adverse response to anesthesia Social History Smoking Status: Never smoker Second Hand Exposure: No; Hx Alcohol Use: No Hx Substance Use: No Preferred Language: Barbadian Communication Ability: Impaired 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 Orientation: alert Eye Contact: + poor eye contact Motor Behavior: + EPS and + tremor non spontaneous, short answers, minimal tongue movement, swallow intact for liquids but cannot chew Affect: + flat affect "I'm fine considering" Thought Process: + concrete thought process Thought Content: not paranoid Suicidal Thoughts: denies suicidal thoughts Homicidal Thoughts: denies homicidal thoughts Hallucinations: no auditory hallucinations and no visual hallucinations Cognition: + attention not intact Insight: + poor insight Judgement: + poor judgement Vital Signs (Past 24 Hours): Last Vital Signs Temp 37.7 C H 01/15/21 15:25 Pulse 105 H 01/15/21 15:25 Resp 20 01/15/21 15:25 BP 139/81 01/15/21 15:25 Pulse Ox 96 01/15/21 15:25 Review of Systems Unobtainable due to cognitive status Results & Data ([facility]) Medications Administered Enoxaparin Sodium (Enoxaparin Inj 30 Mg/0.3 Ml Syr) 30 mg SQ Q24H DONNIE Stop: 02/13/21 23:14 Last Admin: 01/14/21 23:41 Dose: 30 mg Documented by: [id number] Potassium Chloride/Sodium Chloride (Normal Saline W/20 Meq Kcl) 20 meq in 1,000 mls @ 80 mls/hr IV .[id number] DONNIE Stop: 02/13/21 23:14 Last Admin: 01/15/21 11:03 Dose: 80 mls/hr Documented by: [id number] Infusion: 01/15/21 11:03 Dose: 80 mls/hr Documented by: [id number] Admin: 01/14/21 23:41 Dose: 80 mls/hr Documented by: [id number] Lorazepam (Ativan) 1 mg in 2 mls @ 0.5 mls/min IV UD PRN PRN Reason: Anxiety/Agitation Stop: 02/13/21 22:56 Last Admin: 01/15/21 12:32 Dose: 0.5 mls/min Documented by: [id number] Admin: 01/15/21 09:42 Dose: 0.5 mls/min Documented by: [id number] Admin: 01/15/21 07:54 Dose: 0.5 mls/min Documented by: [id number] Admin: 01/15/21 06:48 Dose: 0.5 mls/min Documented by: [id number] Admin: 01/15/21 06:36 Dose: 0.5 mls/min Documented by: [id number] Coding Level of Care Code [address] [facility] Intl Hosp Care Lvl 3 Diagnoses Bipolar 1 disorder F31.9 Dystonic drug reaction G24.02 Tardive dyskinesia G24.01
[2021-01-15] MEDS ORDERED: BENZTROPINE MESYLATE IM ONE (16:00)
[2021-01-15] MEDS ORDERED: LORazepam 1 MG/2 ML VIAL IV STA (16:56)
--- NOTE | 2021-01-15 17:00 | Communication Note ---
Date of Service: January 15, 2021 positive response to Cogentin in that speech is clearer, better able to move toes/tongue, still significant dystonia left neck. Patient requested massage. Will administer 1 mg Ativan IV now with a repeat of Cogentin 2 mg IM and start 1 mg TID this hs.
[2021-01-15] MEDS ORDERED: BENZTROPINE MESYLATE 1 MG/ML 2 ML AMP IM SCH (21:00)
[2021-01-15] MEDS: ATORVASTATIN 20 MG TAB PO SCH (21:09)
[2021-01-15] MEDS: PROPRANOLOL HCL 20 MG TAB PO SCH (21:09)
[2021-01-15] MEDS: GABAPENTIN 300 MG CAP PO SCH (21:09)
[2021-01-15] MEDS: ENOXAPARIN INJ 30 MG/0.3 ML SYR SQ SCH (23:22)
[2021-01-16 06:37] LABS: Hematocrit (blood only) 39.3 % (37-47); Hemoglobin 12.5 g/dL (12.0-16.0); Mean Corpuscular Hemoglobin 30.4 pg (25-34); Mean Corpuscular Hgb Conc 31.8 g/dL (32-36); Mean Corpuscular Volume 95.6 fL (80-100); Mean Platelet Volume 11.5 fL (7.4-10.4); Platelet Count 183 K/uL (130-400); RDW Coefficient of Variation 13.6 % (11.5-14.5); RDW Standard Deviation 47.3 fL (36.4-46.3); Red Blood Count 4.11 M/uL (4.2-5.4); White Blood Count 6.41 K/uL (4.8-10.8)
[2021-01-16 07:11] LABS: BUN Creatinine Ratio 32.4 (10-20); Calcium 9.1 mg/dl (8.5-10.1); Est GFR (African American) 128.3 ml/min; Est GFR (Non-African American) 110.7 ml/min; Magnesium 1.8 mg/dl (1.8-2.4); Potassium 3.8 mmol/L (3.5-5.1)
[2021-01-16] MEDS: PROPRANOLOL HCL 20 MG TAB PO SCH ×2 (08:11→20:45)
[2021-01-16] MEDS: BENZTROPINE MESYLATE 1 MG TAB PO SCH ×3 (08:11→20:45)
[2021-01-16] MEDS: ASPIRIN 81 MG ECTAB PO SCH (08:12)
[2021-01-16] MEDS: GABAPENTIN 300 MG CAP PO SCH ×3 (08:12→20:45)
--- NOTE | 2021-01-16 10:07 | Neurology Progress Note ---
Date of Service January 16, 2021 Assessment & Plan (1) Observed seizure-like activity: (2) Neuroleptic-induced Parkinsonism: (3) Tardive dyskinesia: (4) Tremors of nervous system: (5) Bipolar 1 disorder: (6) Psychosis: Plan: This is a very complicated patient neurologically because of the medication she requires for her mental health conditions, and the neurologic side effects these medications produce. When I saw her back in 2017 she had ataxia, cognitive issues and severe tardive dyskinesia. I felt that Seroquel gave her the tardive dyskinesia and she was showing troublesome chronic side effects from lithium. On admission, she had the bizarre resting tremor, of a coarse, irregular nature, in the left greater than right upper extremities (which is the opposite of when I saw her earlier in December). She had some very mild action tremor probably dampened with propranolol. There was severe bradykinesia, masklike face, and cogwheel rigidity of all 4 limbs. Today she has no resting tremor and her rigidity is a little bit improved compared to yesterday. She still has significant bradykinesia. She is talking a little bit more fluently than yesterday. I believe the Cogentin has helped. The paliperidone was likely giving her the extra pyramidal (Parkinson's) side effects. We have no other data to support a neurodegenerative disease, but in early condition cannot be excluded. Long-term lithium can give irreversible cognitive deficits. valbenazine depletes dopamine and likely made the Parkinson's worse as well. Propranolol and even gabapentin would help an action tremor but not a Parkinson's tremor. I do not see any ataxia of the limbs and she has no tardive dyskinesia of the face or tongue (that I saw 3 years ago). She is not displaying any obvious signs of an irreversible chronic lithium toxicity (she had been on lithium since 1987 up until early 2020) , except possibly cognitive affects. She was described as having seizure-like activity the day of admission. I am not convinced that she has seizures and her EEG was unremarkable despite activity. The EEG was slow in general, consistent with very mild encephalopathy. Therefore, overall, I doubt she had seizures. She did have 1 elevated temperature reading on admission, but has been afebrile since. Her white count shows no signs of infection. She was mildly diaphoretic with some tachycardia on admission, but is not diaphoretic this morning and her pulse is in the 50s. CK was normal. Overall, I am not convinced she had neuroleptic malignant syndrome. Although the patient is on a somewhat medium dose of fluoxetine, I am not certain we are dealing with serotonin syndrome either. Recommendations: 1. Continue Cogentin 1 milligram 3 times a day 2. she is being kept off paliperidone and valbenazine. watch for psychosis 3. continue Gabapentin 300 milligrams 3 times a day and Propranolol 20 milligrams twice a day, as these likely helping her essential tremor 4. Increase activity with physical and occupational therapy. 5. if psychiatry determnes that an anticonvulsant would help her mood stabilization, I would suggest lamotrigine. She had been on this in the past. Avoid valproic acid, as this can increase tremors. 6. I will follow. 7. I see no need for dantrolene or bromocriptine at this time Overall, I spent a total of 35 minutes with this case including review of records, direct evaluation the patient at bedside, and discussion of the case with the patient at bedside, Dr. Ramirez, and Dr. Rodriguez, including differential diagnosis and treatment options. Admission and Anticipated Discharge Date Admission Date: January 14, 2021 Subjective Patient is doing much better. She does not have any pain except in her legs and does not have resting tremor. She has had no seizures over the last 24 hours. CBC and Chem profile were largely unremarkable. Calcium and magnesium were normal. Blood pressure today is 163/79. Results & Data ([facility]) Vital Signs (Past 12 Hours) Vital Signs Temp Pulse Pulse Resp BP BP Pulse Ox 01/16/21 09:00 57 L 01/16/21 07:42 36.9 C 83 18 163/79 H 91 01/16/21 03:03 37.0 C 68 18 111/69 97 01/15/21 22:57 61 01/15/21 22:55 36.7 C 68 18 131/78 97 Exam (Neuro) Physical Exam: She is sleeping but arousable with voice and gentle shake. She can open her eyes but tends to want to keep them closed. She has a blank/masklike face with decreased blink rate. There is no facial droop. Tongue is midline. Speech is without obvious aphasia or dysarthria and she is talking a little bit more. She knew her name, her age, and where she lived. She is cooperative and in a fairly pleasant Mood. I see no resting tremor bilaterally. She does have a little bit of mild action tremor left greater than right arm. She gives very little effort and seems "weak" in all 4 limbs but strength is symmetrical. She has moderate cogwheel rigidity in all 4 limbs. Toes are upgoing to plantar stimulation on the right and downgoing on the Left. PG Care Time/CCT Total # of Minutes Spent Total Time Spent with Patient: Total time spent is greater than 50% in coordination of care (as documented) at patient's floor/unit and/or counseling patient: Coding Level of Care Code 00022 Subseq Hosp Care Lvl 3 Diagnoses Observed seizure-like activity R56.9 Neuroleptic-induced Parkinsonism G21.11 Tardive dyskinesia G24.01 Tremors of nervous system R25.1 Bipolar 1 disorder F31.9 Psychosis F29 Time Spent (min) 35
[2021-01-16] MEDS: NSS + 20MEQ KCL 20 MEQ/1,000 ML BAG IV SCH ×2 (10:46→23:20)
--- NOTE | 2021-01-16 12:47 | Hospitalist Progress Note ---
Date of Service January 16, 2021 Assessment & Plan (1) Observed seizure-like activity: Plan: Patient's seizure-like activity does not appear to be true tonic-clonic seizure as she is responsive and answers questions despite movement in all 4 limbs. EEG on 01/15 was done during these tremors and showed generalized slowing, but no seizure activity. - Ddx includes medication-induced tremor vs. pseudoseizure. - Discussed with Dr. Garza and Dr. Rodriguez on 01/15 -> Will try to adjust/taper some meds. -> Improved today. Maybe be antipsychotics slowly washing out (thereby reducing her Parkinsonism) vs. improvement from benztropine. Rigidity improving as well. (2) Fever: Plan: Patient developed temperature to 100.2 F while in the ED. Unclear cause; some concern regarding possible aspiration. Bilateral heel ulcers with eschar noted do not look actively infected. - Received cefepime 2 g IV in the ED. - Presently comfortable on room air. -> Monitor (3) Hypothyroidism: Plan: TSH was 1.5 this admission. - Continue levothyroxine 75 mcg daily (4) Psychosis: Plan: Psychosis/bipolar 1 disorder - Per psychiatry recommendations (5) Tardive dyskinesia: Plan: None noted more recently as this may have been a side effect of lithium. - See above (6) Bipolar 1 disorder: Plan: - See above (7) Hyperlipidemia: Plan: - Continue statin (8) Hypertension: Plan: BP is 115/65 today. I do not see any home HTN medications. - Monitor BP (9) DVT prophylaxis: Plan: Lovenox 30 mg SQ daily Admission and Anticipated Discharge Date Admission Date: January 14, 2021 Subjective More alert today. Reports neck stiffness, but otherwise no complaints. Reports no fevers/chills, chest pain, shortness of breath, abdominal pain, nausea, or vomiting. Physical Exam Constitutional: WD/WN, vitals as above Eyes: EOM intact bilaterally; no conjunctival abnormality ENMT: external ear and nose normal, oropharynx normal Neck: trachea midline, no thyromegaly normal visual inspection Respiratory: normal respiratory effort, lungs clear to auscultation no respiratory distress Cardiovascular: RRR, no murmur, no edema Gastrointestinal (Abdomen): Inspection/Auscultation: abdomen normal to inspection; abdomen not distended Musculoskeletal: no cyanosis or clubbing, extremities motor strength 5/5 Skin: no rashes, warm and dry Neurologic: moves all extremities and + confused Motor/Sensory: + tremor (Mild tremor on right arm, but otherwise none) Psychiatric: Orientation: alert, oriented to person and cooperative Results & Data Results & Data ([facility]) Vital Signs (Past 12 Hours) Vital Signs Temp Pulse Pulse Resp BP BP Pulse Ox 01/16/21 11:05 36.6 C 67 18 116/69 97 01/16/21 09:00 57 L 01/16/21 07:42 36.9 C 83 18 163/79 H 91 01/16/21 03:03 37.0 C 68 18 111/69 97 PG Care Time/CCT Total # of Minutes Spent Total Time Spent with Patient: Total time spent is greater than 50% in coordination of care (as documented) at patient's floor/unit and/or counseling patient: Coding Level of Care Code 53036 Subseq Hosp Care Lvl 2 Diagnoses Observed seizure-like activity R56.9 Fever R50.9 Fever type: unspecified Hypothyroidism E03.9 Psychosis F29 Tardive dyskinesia G24.01 Bipolar 1 disorder F31.9 Hyperlipidemia E78.5 Hypertension I10 DVT prophylaxis Z29.9 (1) Fever Fever type: unspecified Qualified Code(s): R50.9 - Fever, unspecified
--- NOTE | 2021-01-16 16:14 | Psychiatric Progress Note ---
Date of Service January 16, 2021 Impression / Recommendations Impression 60 yo female with longstanding history of bipolar disorder, presents with acute myoclonus and dystonia, ongoing confusion previously attributed to psychiatric condition, neurology doubts post ictal (and I agree), and likely side effects/delirium/mild serotonin syndrome from psychiatric polypharmacy. she has had muliple med changes and chronic psych issues that difficult to tell what is medication side effect vs true underlying Parkinson's disease. In my opinion she is exquisitely sensitive to antipsychotic medications which is a feature commonly associated with lewy body dementia which often presents with hallucinations in excess of cognitive disability. It is possible some of these symptoms could have been easily mistaken for flaring of her psychiatric illness. 01/16/21--significantly improved but still unable to feed self, residual neck discomfort (1) Bipolar 1 disorder: (2) Dystonic drug reaction: (3) Tardive dyskinesia: 01/16/21: received 5 mg total of Cogentin yesterday. Switched to PO Cogentin this am. Care reviewed with Dr. Garza and Dr. Ramirez. Dr. Ramirez supports use of low dose Flexeril for residual symptoms to minimize reliance on prn Ativan and hopefully limit exposure to higher doses of Cogentin which can contribute to anticholinergic delirium. 01/15/21: agree with holding her psychoactive medications. Cogentin 2 mg IM ordered and will assess response. Primary service notified of aspiration risk. Family would support restart of low dose lithium to restabilize if bipolar symptoms emerge. Will coordinate with neurology. Interval History Identifying Information 60 yo female with bipolar disorder, admit with significant tremor and dystonia on antipsychotic medication. Chief Complaint "My neck still hurts but I can move it more". Subjective Subjective Patient was seen & assessed and interval progress reviewed. Her coarse resting tremors have resolved. She reports still not being able to feed herself. She is tired but denies depression. She is glad that things are going better. She is paradichlorobenzene tender but less spasm of left neck (torticollis) has resolved. No psychomotor restlessness or evidence that she is responding to internal stimuli. Physical Exam Psychiatric Orientation: alert, oriented to person and cooperative Eye Contact: + poor eye contact Motor Behavior: + EPS (resolving) Affect: + flat affect Thought Process: + concrete thought process Thought Content: not paranoid Suicidal Thoughts: denies suicidal thoughts Homicidal Thoughts: denies homicidal thoughts Hallucinations: no auditory hallucinations and no visual hallucinations Cognition: + attention not intact Insight: + poor insight Judgement: + poor judgement Vital Signs (Past 24 Hours) Last Vital Signs Temp 36.6 C 01/16/21 11:05 Pulse 67 01/16/21 11:05 Resp 18 01/16/21 11:05 BP 116/69 01/16/21 11:05 Pulse Ox 97 01/16/21 11:05 Results & Data ([facility]) Laboratory Results Laboratory Results - last 24 hr 01/16/21 01/16/21 05:44 05:44 WBC 6.41 RBC 4.11 L Hgb 12.5 Hct 39.3 MCV 95.6 MCH 30.4 MCHC 31.8 L RDW Std Deviation 47.3 H RDW Coeff of Zakiya 13.6 Plt Count 183 MPV 11.5 H Sodium 143 Potassium 3.8 Chloride 114 H Carbon Dioxide 24 Anion Gap 5.0 BUN 13 Creatinine 0.41 L D Est Cr Clr Drug Dosing 118.0 Est GFR ( Amer) 128.3 Est GFR (Non-Af Amer) 110.7 BUN/Creatinine Ratio 32.4 H Glucose 77 Calcium 9.1 Magnesium 1.8 Current Inpatient Medications Current Inpatient Medications: Current Inpatient Medications Aspirin (Aspirin 81 Mg Ectab) 81 mg PO QAM [facility] Stop: 02/15/21 08:59 Last Admin: 01/16/21 08:12 Dose: 81 mg Documented by: Atorvastatin Calcium (Atorvastatin 20 Mg Tab) 20 mg PO HS DONNIE Stop: 02/14/21 20:59 Last Admin: 01/15/21 21:09 Dose: 20 mg Documented by: Benztropine Mesylate (Benztropine Mesylate 1 Mg Tab) 1 mg PO TID DONNIE Stop: 02/15/21 08:59 Last Admin: 01/16/21 13:43 Dose: 1 mg Documented by: Enoxaparin Sodium (Enoxaparin Inj 30 Mg/0.3 Ml Syr) 30 mg SQ Q24H DONNIE Stop: 02/13/21 23:14 Last Admin: 01/15/21 23:22 Dose: 30 mg Documented by: Gabapentin (Gabapentin 300 Mg Cap) 300 mg PO TID DONNIE Stop: 02/14/21 20:59 Last Admin: 01/16/21 13:43 Dose: 300 mg Documented by: Potassium Chloride/Sodium Chloride (Normal Saline W/20 Meq Kcl) 20 meq in 1,000 mls @ 80 mls/hr IV .[id number] [facility] Stop: 02/13/21 23:14 Last Admin: 01/16/21 10:46 Dose: 80 mls/hr Documented by: Lorazepam (Ativan) 1 mg in 2 mls @ 0.5 mls/min IV UD PRN PRN Reason: Anxiety/Agitation Stop: 02/13/21 22:56 Last Admin: 01/15/21 12:32 Dose: 0.5 mls/min Documented by: Ondansetron HCl (Ondansetron Inj 2 Mg/Ml 2 Ml Vial) 4 mg IV Q6H PRN PRN Reason: Nausea Stop: 02/13/21 22:56 Propranolol HCl (Propranolol Hcl 20 Mg Tab) 20 mg PO BID [facility] Stop: 02/14/21 20:59 Last Admin: 01/16/21 08:11 Dose: 20 mg Documented by:
[2021-01-16] MEDS: ACETAMINOPHEN 325 MG TAB PO PRN (20:43)
[2021-01-16] MEDS: ATORVASTATIN 20 MG TAB PO SCH (20:45)
[2021-01-16] MEDS: CYCLOBENZAPRINE HCL 5 MG TAB PO SCH (21:44)
[2021-01-16] MEDS: ENOXAPARIN INJ 30 MG/0.3 ML SYR SQ SCH (23:21)
[2021-01-17 06:11] LABS: Hematocrit (blood only) 38.4 % (37-47); Hemoglobin 12.4 g/dL (12.0-16.0); Mean Corpuscular Hemoglobin 30.4 pg (25-34); Mean Corpuscular Hgb Conc 32.3 g/dL (32-36); Mean Corpuscular Volume 94.1 fL (80-100); Mean Platelet Volume 10.9 fL (7.4-10.4); Platelet Count 162 K/uL (130-400); RDW Coefficient of Variation 13.4 % (11.5-14.5); RDW Standard Deviation 46.3 fL (36.4-46.3); Red Blood Count 4.08 M/uL (4.2-5.4)
[2021-01-17 06:49] LABS: BUN Creatinine Ratio 15.9 (10-20); Calcium 8.5 mg/dl (8.5-10.1); Creatinine Clr Calc Pharmacy 109.5 ml/min; Est GFR (African American) 125.4 ml/min; Est GFR (Non-African American) 108.2 ml/min; Magnesium 1.8 mg/dl (1.8-2.4); Potassium 4.1 mmol/L (3.5-5.1)
[2021-01-17] MEDS: ASPIRIN 81 MG ECTAB PO SCH (09:16)
[2021-01-17] MEDS: GABAPENTIN 300 MG CAP PO SCH ×3 (09:16→20:50)
[2021-01-17] MEDS: BENZTROPINE MESYLATE 1 MG TAB PO SCH ×3 (09:17→20:50)
[2021-01-17] MEDS: PROPRANOLOL HCL 20 MG TAB PO SCH ×2 (09:18→20:50)
[2021-01-17] MEDS: NSS + 20MEQ KCL 20 MEQ/1,000 ML BAG IV SCH (11:50)
--- NOTE | 2021-01-17 13:39 | Hospitalist Progress Note ---
Date of Service January 17, 2021 Assessment & Plan (1) Observed seizure-like activity: Plan: Patient's seizure-like activity does not appear to be true tonic-clonic seizure as she is responsive and answers questions despite movement in all 4 limbs. EEG on 01/15 was done during these tremors and showed generalized slowing, but no seizure activity. - Ddx includes medication-induced tremor vs. pseudoseizure. - Discussed with Dr. Garza and Dr. Rodriguez on 01/15 -> Will try to adjust/taper some meds. -> Improved today. Maybe be antipsychotics slowly washing out (thereby reducing her Parkinsonism) vs. improvement from benztropine. Rigidity improving as well. - More tardive dyskinesia. (2) Fever: Plan: Patient developed temperature to 100.2 F while in the ED. Unclear cause; some concern regarding possible aspiration. Bilateral heel ulcers with eschar noted do not look actively infected. - Received cefepime 2 g IV in the ED. - Presently comfortable on room air. -> Monitor -> No signs of infection. (3) Hypothyroidism: Plan: TSH was 1.5 this admission. - Continue levothyroxine 75 mcg daily (4) Psychosis: Plan: Psychosis/bipolar 1 disorder - Per psychiatry recommendations (5) Tardive dyskinesia: Plan: None noted on admission, but worse today. - See above (6) Bipolar 1 disorder: Plan: - See above (7) Hyperlipidemia: Plan: - Continue statin (8) Hypertension: Plan: BP is 155/65 today. I do not see any home HTN medications. - Monitor BP (9) DVT prophylaxis: Plan: Lovenox 30 mg SQ daily Admission and Anticipated Discharge Date Admission Date: January 14, 2021 Subjective More alert today. Reports no fevers/chills, chest pain, shortness of breath, abdominal pain, nausea, or vomiting. She mostly wants to speak to her family and asks me several times to have someone call her daughter. Physical Exam Constitutional: WD/WN, vitals as above Eyes: EOM intact bilaterally; no conjunctival abnormality ENMT: external ear and nose normal, oropharynx normal Neck: trachea midline, no thyromegaly normal visual inspection Respiratory: normal respiratory effort, lungs clear to auscultation no respiratory distress Cardiovascular: RRR, no murmur, no edema Gastrointestinal (Abdomen): Inspection/Auscultation: abdomen normal to inspection; abdomen not distended Musculoskeletal: no cyanosis or clubbing, extremities motor strength 5/5 Skin: no rashes, warm and dry Neurologic: moves all extremities and awake Motor/Sensory: + tremor (Mild tremor on right arm, but otherwise none) and + fasciculations (Tardive dyskinesia) Psychiatric: Orientation: alert, oriented to person and cooperative Results & Data Results & Data ([facility]) Vital Signs (Past 12 Hours) Vital Signs Temp Pulse Pulse Resp BP BP Pulse Ox 01/17/21 09:00 75 01/17/21 07:22 37.0 C 73 20 155/88 H 98 01/17/21 04:14 37.3 C 66 18 131/82 98 PG Care Time/CCT Total # of Minutes Spent Total Time Spent with Patient: Total time spent is greater than 50% in coordination of care (as documented) at patient's floor/unit and/or counseling patient: Coding Level of Care Code 87078 Subseq Hosp Care Lvl 3 Diagnoses Observed seizure-like activity R56.9 Fever R50.9 Fever type: unspecified Hypothyroidism E03.9 Psychosis F29 Tardive dyskinesia G24.01 Bipolar 1 disorder F31.9 Hyperlipidemia E78.5 Hypertension I10 DVT prophylaxis Z29.9 (1) Fever Fever type: unspecified Qualified Code(s): R50.9 - Fever, unspecified
--- NOTE | 2021-01-17 15:59 | Communication Note ---
Date of Service: January 17, 2021 Evaluated patient today at bedside. Patient denies any acute mental issues. She states that her mood is good, and she is denying any hallucinations or delusions. From a physical standpoint however, patient's tremors are quite significant, and she is somewhat distressed by their presence. She is agreeable to retrying medications in order to try to address the symptoms. Plan: Will defer to neurology, although valbenazine may be deemed to be helpful in this situation given the significance of her tremors.
[2021-01-17] MEDS: ACETAMINOPHEN 325 MG TAB PO PRN (19:58)
[2021-01-17] MEDS: ATORVASTATIN 20 MG TAB PO SCH (20:50)
[2021-01-17] MEDS: CYCLOBENZAPRINE HCL 5 MG TAB PO SCH (20:50)
[2021-01-17] MEDS: ENOXAPARIN INJ 30 MG/0.3 ML SYR SQ SCH (23:33)
[2021-01-18] MEDS: GABAPENTIN 300 MG CAP PO SCH ×3 (07:37→20:43)
[2021-01-18] MEDS: BENZTROPINE MESYLATE 1 MG TAB PO SCH ×3 (07:37→20:42)
[2021-01-18] MEDS: PROPRANOLOL HCL 20 MG TAB PO SCH ×2 (07:37→20:43)
[2021-01-18] MEDS: ASPIRIN 81 MG ECTAB PO SCH (07:37)
--- NOTE | 2021-01-18 10:12 | Hospitalist Progress Note ---
Date of Service January 18, 2021 Assessment & Plan (1) Observed seizure-like activity: Plan: Patient's seizure-like activity does not appear to be true tonic-clonic seizure as she was responsive and answers questions despite movement in all 4 limbs. EEG on 01/15 was done during these tremors and showed generalized slowing, but no seizure activity. - Likely medication-induced tremor vs. long-term sequelae of her psychiatric meds. - Discussed with Dr. Garza and Dr. Rodriguez on 01/17 -> Will try to adjust/taper some meds. - Continue gabapentin and propranolol for tremor. -> Improved overall tremor today. Improved mental status and speech. - Continue benztropine and cyclobenzaprine. - Tardive dyskinesia is worse today. Discussed with Dr. Garza, Dr. Alfredo, and son. Will restart valbenazine (Ingrezza) at 40 mg PO daily. She gets this from [facility] specialty pharmacy ([phone]). She has 80 mg capsules at [facility], but they cannot be split. If a hospitalist is willing to place the order on Tuesday/Tuesday, it will be shipped to her son and he can bring them. Her son will also try to find 40 mg samples at [place] [facility] on Tuesday to bring to the hospital. Dispo: Likely prolonged stay as we carefully adjust medications. Could consider transfer to [facility] now that acute medical issues have been largely ruled out if they are willing to have her transferred. (2) Fever: Plan: Patient developed temperature to 100.2 F while in the ED. Unclear cause; some concern regarding possible aspiration. Bilateral heel ulcers with eschar noted do not look actively infected. Some concern for neuroleptic malignant syndrome, but this seems unlikely at this point with no further fever & normal CK. - Received cefepime 2 g IV in the ED. - Presently comfortable on room air. -> Monitor -> No signs of infection. (3) Hypothyroidism: Plan: TSH was 1.5 this admission. - Continue levothyroxine 75 mcg daily (4) Psychosis: Plan: Psychosis/bipolar 1 disorder - Per psychiatry recommendations (5) Tardive dyskinesia: Plan: None noted on admission, but worse today. - See above (6) Bipolar 1 disorder: Plan: - See above (7) Hyperlipidemia: Plan: - Continue ASA & statin (8) Hypertension: Plan: BP is 125/65 today. I do not see any home HTN medications. - Monitor BP (9) DVT prophylaxis: Plan: Lovenox 30 mg SQ daily Admission and Anticipated Discharge Date Admission Date: January 14, 2021 Subjective Doing better today. Reports some foot pain bilaterally, but otherwise no complaints. Reports no fevers/chills, chest pain, shortness of breath, abdominal pain, nausea, or vomiting. Physical Exam Constitutional: WD/WN, vitals as above Eyes: EOM intact bilaterally; no conjunctival abnormality ENMT: external ear and nose normal, oropharynx normal Neck: trachea midline, no thyromegaly normal visual inspection Respiratory: normal respiratory effort, lungs clear to auscultation no respiratory distress Cardiovascular: RRR, no murmur, no edema Gastrointestinal (Abdomen): Inspection/Auscultation: abdomen normal to inspection; abdomen not distended Musculoskeletal: no cyanosis or clubbing, extremities motor strength 5/5 Skin: no rashes, warm and dry Neurologic: moves all extremities and awake Motor/Sensory: + tremor (Mild tremor on right & left arm) and + fasciculations (Tardive dyskinesia) Psychiatric: Orientation: alert, oriented to person and cooperative Results & Data Results & Data ([facility]) Vital Signs (Past 12 Hours) Vital Signs Temp Pulse Pulse Resp BP BP Pulse Ox 01/18/21 07:55 36.9 C 56 L 18 123/75 97 01/18/21 03:24 36.7 C 61 17 130/78 98 01/18/21 00:12 56 L 01/17/21 23:50 36.9 C 55 L 18 111/73 97 PG Care Time/CCT Total # of Minutes Spent Total Time Spent with Patient: Total time spent is greater than 50% in coordination of care (as documented) at patient's floor/unit and/or counseling patient: Coding Level of Care Code 19605 Subseq Hosp Care Lvl 2 Diagnoses Observed seizure-like activity R56.9 Fever R50.9 Fever type: unspecified Hypothyroidism E03.9 Psychosis F29 Tardive dyskinesia G24.01 Bipolar 1 disorder F31.9 Hyperlipidemia E78.5 Hypertension I10 DVT prophylaxis Z29.9 (1) Fever Fever type: unspecified Qualified Code(s): R50.9 - Fever, unspecified
--- NOTE | 2021-01-18 11:44 | Communication Note ---
Date of Service: January 18, [address] with [address]rs[address] Alfredo and James this morning regarding her treatment options. Clearly, her parkinsonism (rigidity, bradykinesia, and resting tremors) are improved off valbenazine and paliperidone. So far, her mood is stable and her cognitive status is improved - she is more functional than admission. Unfortunately, tardive dyskinetic movements have returned off valbenazine. She could have an underlying neurodegenerative disease, such as Lewy Body dementia (or related illness, causing cognitive issues and hallucinations as opposed to a true psychosis. Recommendations: 1. Stay off valbenazine as much as possible. However, if the tardive dyskinesia is too interfering (I would tolerate some TD movements) then start valbenazine at 40mg daily, or 40mg every other day. 2. Keep benztropine at current dose for now. could decrease if having anticholinergic side effects or parkinsonism is under good control. 3. Avoid neuroleptics if possible (even newer generation ones). 4. If her psychiatric illness worsens, could consider low dose lithium (it has worked in the past). Watch for ataxia and cognitive decline 5. I could follow as an outpatient, if desired, but I am not sure neurologically what else I can do for her.
[2021-01-18] MEDS: POLYETHYLENE (MIRALAX) 17 GM PACK PO SCH (13:44)
[2021-01-18] MEDS: ATORVASTATIN 20 MG TAB PO SCH (20:42)
[2021-01-18] MEDS: CYCLOBENZAPRINE HCL 5 MG TAB PO SCH (20:43)
[2021-01-18] MEDS: ENOXAPARIN INJ 30 MG/0.3 ML SYR SQ SCH (23:53)
--- NOTE | 2021-01-19 08:16 | Hospitalist Progress Note ---
Date of Service January 19, 2021 Assessment & Plan (1) Observed seizure-like activity: Plan: Patient's seizure-like activity does not appear to be true tonic-clonic seizure as she was responsive and answered questions despite movement in all 4 limbs. EEG on 01/15 was done during these tremors and showed generalized slowing, but no seizure activity. - Likely medication-induced tremor vs. long-term sequelae of her psychiatric meds - Discussed with Dr. Garza and Dr. Rodriguez/ Alec recmmendation to adjust psyche meds - Continue gabapentin and propranolol for tremor. - Continue benztropine and cyclobenzaprine. - Tardive dyskinesia remains 01/19/[address] Garza, Dr. Alfredo, and son. Restart valbenazine (Ingrezza) at 40 mg PO daily. To try to reduce these symptoms, so far not much success. She gets this from [facility] ([phone]). She has 80 mg capsules at [facility], but they cannot be split. placed the order on Tuesday, it will be shipped to her son and he can bring them. Her son will also try to find 40 mg samples at [facility] on Tuesday to bring to the hospital. (2) Fever: Plan: Patient developed temperature to 100.2 F while in the ED. Unclear cause; some concern regarding possible aspiration. Bilateral heel ulcers with eschar noted did not look actively infected. Some concern for neuroleptic malignant syndrome, but this seems unlikely at this point with no further fever & normal CK. - Received cefepime 2 g IV in the ED, no additional antibiotics. - No signs of infection. (3) Hypothyroidism: Plan: TSH was 1.5 this admission. - Continue levothyroxine 75 mcg daily (4) Psychosis: Plan: Psychosis/bipolar 1 disorder - Medication adjustment Per psychiatry recommendations (5) Tardive dyskinesia: Plan: None noted on admission, restarting valbenazine may need to adjust - See above (6) Bipolar 1 disorder: Plan: - See above (7) Hyperlipidemia: Plan: - Remains on ASA & statin (8) DVT prophylaxis: Plan: Lovenox 30 mg SQ daily Plan: Dispo: Likely prolonged stay as we carefully adjust medications. Could consider transfer to [facility] now that acute medical issues have been largely ruled out if they are willing to have her transferred. Admission and Anticipated Discharge Date Admission Date: January 14, 2021 Subjective Patient is multiple to tardive dyskinetic movements. She states that there is thoughts in her brain that are not good for her. She cannot give me more details on that. No attempting to adjust her medications we will continue to work with psychiatry to help improve her tardive dyskinesia by balancing her mental health illness Review of Systems Review of Systems: Mild distress and fatigue no headache, no visual changes denies visual hallucinations no speech or swallowing issues no chest pain, pressure or palpitations no shortness of breath, cough or wheezes no abdominal pain, nausea or vomiting, diarrhea or constipation no dysuria, hematuria or frequency no focal joint pain or swelling no back pain, CVA tenderness or radicular pain no bruising, bleeding or rashes no focal signs of weakness or numbness or altered sensation multiple facial movements tongue protruding dyskinetic arm movements no complaints of trouble some visions and thoughts in her head cannot describe the more Physical Exam Physical Exam: The patient appeared well nourished and normally developed. Vital signs as documented. Head exam is normocephalic atraumatic Neck is without JVD, thyromegaly, or carotid bruits. Lungs are clear to auscultation, no focal loss of breath sounds Cardiac exam, Rhythm is regular.. No murmurs, rubs or gallops. Abdominal exam reveals normal bowel sounds, soft non tender, no masses Extremities are nonedematous and both pedal pulses are present Neurologic exam is alert and oriented, able to converse with me although having tongue protrusions facial grimacing and movements are movements Skin is without bruises or rashes Psychologically is with concerned for depression and psychosis Results & Data Results & Data ([facility]) Vital Signs (Past 12 Hours) Vital Signs Temp Pulse Pulse Resp BP Pulse Ox 01/19/21 06:56 98.8 F 62 18 135/76 92 01/19/21 04:07 99.3 F 68 18 122/77 96 01/19/21 00:45 62 01/18/21 23:37 99.0 F 63 18 123/72 97 PG Care Time/CCT Total # of Minutes Spent Total Time Spent with Patient: Total time spent is greater than 50% in coordination of care (as documented) at patient's floor/unit and/or counseling patient: Coding Level of Care Code 71276 Subseq Hosp Care Lvl 2 Diagnoses Observed seizure-like activity R56.9 Fever R50.9 Fever type: unspecified Hypothyroidism E03.9 Psychosis F29 Tardive dyskinesia G24.01 Bipolar 1 disorder F31.9 Hyperlipidemia E78.5 DVT prophylaxis Z29.9 (1) Fever Fever type: unspecified Qualified Code(s): R50.9 - Fever, unspecified
[2021-01-19] MEDS: ASPIRIN 81 MG ECTAB PO SCH (10:10)
[2021-01-19] MEDS: BENZTROPINE MESYLATE 1 MG TAB PO SCH ×3 (10:10→20:20)
[2021-01-19] MEDS: PROPRANOLOL HCL 20 MG TAB PO SCH ×2 (10:10→20:22)
[2021-01-19] MEDS: GABAPENTIN 300 MG CAP PO SCH ×3 (10:11→20:20)
[2021-01-19] MEDS: POLYETHYLENE (MIRALAX) 17 GM PACK PO SCH (10:25)
[2021-01-19] MEDS: ATORVASTATIN 20 MG TAB PO SCH (20:19)
[2021-01-19] MEDS: CYCLOBENZAPRINE HCL 5 MG TAB PO SCH (20:20)
[2021-01-19] MEDS: ENOXAPARIN INJ 30 MG/0.3 ML SYR SQ SCH (22:56)
--- NOTE | 2021-01-20 07:19 | Hospitalist Progress Note ---
Date of Service January 20, 2021 Assessment & Plan (1) Observed seizure-like activity: Plan: Patient's seizure-like activity does not appear to be true tonic-clonic seizure as she was responsive and answered questions despite movement in all 4 limbs. EEG on 01/15 was done during these tremors and showed generalized slowing, but no seizure activity. - Likely medication-induced tremor vs. long-term sequelae of her psychiatric meds - Discussed with Dr. Garza and Dr. Rodriguez/ Alec recommendation to adjust psyche meds - Continue gabapentin and propranolol for tremor. - Continue benztropine and cyclobenzaprine. - Tardive dyskinesia remains 01/19/[address] Garza, Dr. Alfredo, and son. Restart valbenazine (Ingrezza) at 40 mg PO daily. To try to reduce these symptoms, so far not much success. She gets this from [facility] ([phone]). She has 80 mg capsules at [facility], but they cannot be split. placed the order on , it will be shipped to her son and he can bring them. Her is out of town and [facility] get [facility], I left voice message for Tyra Higgins [facility] for a call back regarding this issue. Son feels that currently home not a good option for patient, he is trying to get waiver system in place but not secure yet (2) Fever: Plan: Patient developed temperature to 100.2 F while in the ED. Unclear cause; some concern regarding possible aspiration. Bilateral heel ulcers with eschar noted did not look actively infected. Some concern for neuroleptic malignant syndrome, but this seems unlikely at this point with no further fever & normal CK. - Received cefepime 2 g IV in the ED, no additional antibiotics. - No recurrence at this time (3) Hypothyroidism: Plan: TSH was 1.5 this admission. - Continue levothyroxine 75 mcg daily (4) Psychosis: Plan: Psychosis/bipolar 1 disorder - Medication adjustment Per psychiatry recommendations (5) Tardive dyskinesia: Plan: None noted on admission, restarting valbenazine may need to adjust - See above (6) Bipolar 1 disorder: Plan: - See above (7) Hyperlipidemia: Plan: - Remains on ASA & statin (8) DVT prophylaxis: Plan: Lovenox 30 mg SQ daily Plan: Pressure ulcer of left and right heels, both stage 2, both POA Admission and Anticipated Discharge Date Admission Date: January 14, 2021 Subjective pt still with challenges with her Tardive dyskinesia and her psychiatric illness Review of Systems Review of Systems: Mild distress and fatigue no headache, no visual changes no speech or swallowing issues no chest pain, pressure or palpitations no shortness of breath, cough or wheezes no abdominal pain, nausea or vomiting, diarrhea or constipation no dysuria, hematuria or frequency no focal joint pain or swelling no back pain, CVA tenderness or radicular pain no bruising, bleeding or rashes no focal signs of weakness or numbness or altered sensation significant movement disorders, c/o not feeling right in her head(ct head 01/14 negative ) Physical Exam Physical Exam: The patient appeared well nourished and normally developed. she is bright and alert, but has uncontrolled facial and arm/leg movements Vital signs as documented. Head exam is normocephalic atraumatic Neck is without JVD, thyromegaly, or carotid bruits. Lungs are clear to auscultation, no focal loss of breath sounds Cardiac exam, Rhythm is regular.. No murmurs, rubs or gallops. Abdominal exam reveals normal bowel sounds, soft non tender, no masses Extremities are nonedematous and both pedal pulses are present Neurologic exam is alert and oriented, no focal loss of strength or sensation Skin is without bruises or rashes Psychologically c/o not feeling "right" in her head Results & Data Results & [facility] ([facility]) Vital Signs (Past 12 Hours) Vital Signs Temp Pulse Pulse Resp BP Pulse Ox 01/20/21 03:06 98.6 F 56 L 18 120/74 97 01/19/21 23:50 57 L 01/19/21 22:44 98.8 F 63 20 143/87 H 98 PG Care Time/CCT Total # of Minutes Spent Total Time Spent with Patient: Total time spent is greater than 50% in coordination of care (as documented) at patient's floor/unit and/or counseling patient: Coding Level of Care Code 96122 Subseq Hosp Care Lvl 2 Diagnoses Observed seizure-like activity R56.9 Fever R50.9 Fever type: unspecified Hypothyroidism E03.9 Psychosis F29 Tardive dyskinesia G24.01 Bipolar 1 disorder F31.9 Hyperlipidemia E78.5 DVT prophylaxis Z29.9 (1) Fever Fever type: unspecified Qualified Code(s): R50.9 - Fever, unspecified
[2021-01-20] MEDS: POLYETHYLENE (MIRALAX) 17 GM PACK PO SCH (09:12)
[2021-01-20] MEDS: BENZTROPINE MESYLATE 1 MG TAB PO SCH ×3 (09:13→20:29)
[2021-01-20] MEDS: ASPIRIN 81 MG ECTAB PO SCH (09:13)
[2021-01-20] MEDS: PROPRANOLOL HCL 20 MG TAB PO SCH ×2 (09:14→20:29)
[2021-01-20] MEDS: GABAPENTIN 300 MG CAP PO SCH ×3 (09:14→20:29)
[2021-01-20] MEDS: ONDANSETRON INJ 2 MG/ML 2 ML VIAL IV PRN (15:49)
[2021-01-20] MEDS: LORazepam 1 MG/2 ML VIAL IV PRN (17:00)
[2021-01-20] MEDS: ATORVASTATIN 20 MG TAB PO SCH (20:29)
[2021-01-20] MEDS: CYCLOBENZAPRINE HCL 5 MG TAB PO SCH (20:29)
[2021-01-20] MEDS: ENOXAPARIN INJ 30 MG/0.3 ML SYR SQ SCH (23:46)
[2021-01-20] MEDS: DICLOFENAC SOD 1% GEL 100 GM TUBE EXT SCH (23:46)
[2021-01-21] MEDS: GABAPENTIN 300 MG CAP PO SCH ×3 (08:41→19:45)
[2021-01-21] MEDS: ASPIRIN 81 MG ECTAB PO SCH (08:41)
[2021-01-21] MEDS: FLUoxetine HCL 20 MG CAP PO SCH (08:41)
[2021-01-21] MEDS: PROPRANOLOL HCL 20 MG TAB PO SCH ×2 (08:41→19:47)
[2021-01-21] MEDS: POLYETHYLENE (MIRALAX) 17 GM PACK PO SCH (08:41)
[2021-01-21] MEDS: TOCOPHERYL, DL-ALPHA 400 UNITS 180 MG CAP PO SCH (08:41)
[2021-01-21] MEDS: DICLOFENAC SOD 1% GEL 100 GM TUBE EXT SCH ×2 (08:41→19:48)
--- NOTE | 2021-01-21 08:43 | Hospitalist Progress Note ---
Date of Service January 21, 2021 Assessment & Plan (1) Observed seizure-like activity: Plan: Patient's seizure-like activity does not appear to be true tonic-clonic seizure as she was responsive and answered questions despite movement in all 4 limbs. EEG on 01/15 was done during these tremors and showed generalized slowing, but no seizure activity. - Likely medication-induced tremor vs. long-term sequelae of her psychiatric meds - Discussed with Dr. Garza and Dr. Rodriguez/ Alec recommendation to adjust psyche meds - Continue gabapentin and propranolol for tremor. - Continue benztropine and cyclobenzaprine, increased bentropine from 1 tid to 2 bid given we cannot get her valbenazine. Once we can get her Valbenzine we will stop benztropine - Tardive dyskinesia remains 01/19/[address] Garza, Dr. Alfredo, and son. Restart valbenazine (Ingrezza) at 40 mg PO daily. To try to reduce these symptoms, so far not much success. need to have PT evaluation prior to going home, previously pt was walking She gets this from [facility] ([phone]). She has 80 mg capsules at [facility], but they cannot be split. placed the order on , it will be shipped to her son and he can bring them. Her is out of town and cannot get to [facility], I left voice message for Tyra DONG for a call back regarding this issue. Son feels that currently home not a good option for patient, he is trying to get waiver system in place but not secure yet (2) Fever: Plan: Patient developed temperature to 100.2 F while in the ED. Unclear cause; some concern regarding possible aspiration. Bilateral heel ulcers with eschar noted did not look actively infected. Some concern for neuroleptic malignant syndrome, but this seems unlikely at this point with no further fever & normal CK. - Received cefepime 2 g IV in the ED, no additional antibiotics. - No recurrence at this time (3) Hypothyroidism: Plan: TSH was 1.5 this admission. - Continue levothyroxine 75 mcg daily (4) Psychosis: Plan: Psychosis/bipolar 1 disorder - found that her prozac held and was restarted 09/07 (5) Tardive dyskinesia: Plan: None noted on admission, restarting valbenazine may need to adjust - See above (6) Bipolar 1 disorder: Plan: - See above restarting prozac (7) Hyperlipidemia: Plan: - Remains on ASA & statin (8) DVT prophylaxis: Plan: Lovenox 30 mg SQ daily Plan: Pressure ulcer of left and right heels, both stage 2, both POA Admission and Anticipated Discharge Date Admission Date: January 14, 2021 Subjective pt still with challenges with her Tardive dyskinesia and her psychiatric illness, did increase Benztropine in hopes of getting her Ingrezza from [facility] Review of Systems Review of Systems: Mild distress and fatigue no headache, no visual changes no speech or swallowing issues no chest pain, pressure or palpitations no shortness of breath, cough or wheezes no abdominal pain, nausea or vomiting, diarrhea or constipation no dysuria, hematuria or frequency no focal joint pain or swelling no back pain, CVA tenderness or radicular pain no bruising, bleeding or rashes no focal signs of weakness or numbness or altered sensation significant movement disorders, c/o not feeling right in her head(ct head 01/14 negative ) Physical Exam Physical Exam: The patient appeared well nourished and normally developed. she is bright and alert, but has uncontrolled facial and arm/leg movements Vital signs as documented. Head exam is normocephalic atraumatic Neck is without JVD, thyromegaly, or carotid bruits. Lungs are clear to auscultation, no focal loss of breath sounds Cardiac exam, Rhythm is regular.. No murmurs, rubs or gallops. Abdominal exam reveals normal bowel sounds, soft non tender, no masses Extremities are nonedematous and both pedal pulses are present Neurologic exam is alert and oriented, no focal loss of strength or sensation Skin is without bruises or rashes Psychologically c/o not feeling "right" in her head Results & Data Results & Data ([facility]) Vital Signs (Past 12 Hours) Vital Signs Temp Pulse Pulse Resp BP Pulse Ox 01/21/21 08:17 99.3 F 73 16 111/67 92 01/21/21 03:34 98.6 F 55 L 18 109/65 95 01/20/21 23:52 57 L 01/20/21 23:03 98.8 F 60 18 115/66 97 PG Care Time/CCT Total # of Minutes Spent Total Time Spent with Patient: Total time spent is greater than 50% in coordination of care (as documented) at patient's floor/unit and/or counseling patient: Coding Level of Care Code 40836 Subseq Hosp Care Lvl 2 Diagnoses Observed seizure-like activity R56.9 Fever R50.9 Fever type: unspecified Hypothyroidism E03.9 Psychosis F29 Tardive dyskinesia G24.01 Bipolar 1 disorder F31.9 Hyperlipidemia E78.5 DVT prophylaxis Z29.9 (1) Fever Fever type: unspecified Qualified Code(s): R50.9 - Fever, unspecified
[2021-01-21] MEDS: BENZTROPINE MESYLATE 1 MG TAB PO SCH ×2 (10:52→19:46)
--- NOTE | 2021-01-21 15:27 | Communication Note ---
Date of Service: January 21, 2021 Patient seen today at bedside. With regard to her mood as well as her tremors, patient looks much improved from previous week. She is still experiencing a moderate amount of tremors and extrapyramidal symptoms. Her niece was in the room, who also felt that the patient had made significant improvement from the week prior. Patient was reporting their mood as stable with some episodes of anxiety. The medications that have been from removed from the regimen, including all antipsychotics, were discussed with the patient. The idea of using lithium, low-dose, was discussed with the patient who feels at this time it would not be necessary and she would prefer to continue without it for the time being. Patient awaiting physical rehab bed placement at this time.
[2021-01-21] MEDS: ATORVASTATIN 20 MG TAB PO SCH (19:46)
[2021-01-21] MEDS: CYCLOBENZAPRINE HCL 5 MG TAB PO SCH (19:47)
[2021-01-21] MEDS: ENOXAPARIN INJ 30 MG/0.3 ML SYR SQ SCH (22:06)
[2021-01-22] MEDS: FLUoxetine HCL 20 MG CAP PO SCH (08:34)
[2021-01-22] MEDS: TOCOPHERYL, DL-ALPHA 400 UNITS 180 MG CAP PO SCH (08:34)
[2021-01-22] MEDS: PROPRANOLOL HCL 20 MG TAB PO SCH ×2 (08:34→21:26)
[2021-01-22] MEDS: BENZTROPINE MESYLATE 1 MG TAB PO SCH ×2 (08:34→21:18)
[2021-01-22] MEDS: ASPIRIN 81 MG ECTAB PO SCH (08:34)
[2021-01-22] MEDS: DICLOFENAC SOD 1% GEL 100 GM TUBE EXT SCH ×2 (08:34→21:22)
[2021-01-22] MEDS: POLYETHYLENE (MIRALAX) 17 GM PACK PO SCH (08:34)
[2021-01-22] MEDS: GABAPENTIN 300 MG CAP PO SCH ×3 (08:34→21:18)
[2021-01-22] MEDS: VALBENAZINE 40 MG PO SCH (08:35)
[2021-01-22] MEDS: ONDANSETRON INJ 2 MG/ML 2 ML VIAL IV PRN (19:41)
--- NOTE | 2021-01-22 20:32 | Hospitalist Progress Note ---
Date of Service January 22, 2021 Assessment & Plan (1) Observed seizure-like activity: Plan: Patient's seizure-like activity does not appear to be true tonic-clonic seizure as she was responsive and answered questions despite movement in all 4 limbs. EEG on 01/15 was done during these tremors and showed generalized slowing, but no seizure activity. - Likely medication-induced tremor vs. long-term sequelae of her psychiatric meds - Discussed with Dr. Garza and Dr. Rodriguez/ Alec recommendation to adjust psyche meds - Continue gabapentin and propranolol for tremor. - Continue benztropine and cyclobenzaprine, Restarted Valbenzine at 40 mg reportedly have one week hopefullyl can get PT by then and get home or to rehab She gets this from [facility] ([phone]). She has 80 mg capsules at [facility], but they cannot be split. placed the order on , it will be shipped to her son and he can bring them if they arrive at this time using samples from [facility] . Son feels that currently home not a good option for patient, he is trying to get waiver system in place but not secure yet (2) Hypothyroidism: Plan: TSH was 1.5 this admission. - Continue levothyroxine 75 mcg daily (3) Psychosis: Plan: Psychosis/bipolar 1 disorder - found that her prozac held and was restarted 01/20 (4) Tardive dyskinesia: Plan: None noted on admission, restarting valbenazine may need to adjust - See above (5) Bipolar 1 disorder: Plan: - See above restarting prozac (6) Hyperlipidemia: Plan: - Remains on ASA & statin (7) DVT prophylaxis: Plan: Lovenox 30 mg SQ daily (8) Fever: Plan: Patient developed temperature to 100.2 F while in the ED. Unclear cause; some concern regarding possible aspiration. Bilateral heel ulcers with eschar noted did not look actively infected. Some concern for neuroleptic malignant syndrome, but this seems unlikely at this point with no further fever & normal CK. - Received cefepime 2 g IV in the ED, no additional antibiotics. - No recurrence at this time Plan: Pressure ulcer of left and right heels, both stage 2, both POA Admission and Anticipated Discharge Date Admission Date: January 14, 2021 Subjective Pt still with improvement of her Tardive dyskinesia and her psychiatric illness, did start Ingrezza, continue Benztropine at lower doses Review of Systems Review of Systems: Mild distress and fatigue no headache, no visual changes no speech or swallowing issues no chest pain, pressure or palpitations no shortness of breath, cough or wheezes no abdominal pain, nausea or vomiting, diarrhea or constipation no dysuria, hematuria or frequency no focal joint pain or swelling no back pain, CVA tenderness or radicular pain no bruising, bleeding or rashes no focal signs of weakness or numbness or altered sensation significant movement disorders, c/o not feeling right in her head(ct head 01/14 negative ) Physical Exam Physical Exam: The patient appeared well nourished and normally developed. she is bright and alert, but has uncontrolled facial and arm/leg movements Vital signs as documented. Head exam is normocephalic atraumatic Neck is without JVD, thyromegaly, or carotid bruits. Lungs are clear to auscultation, no focal loss of breath sounds Cardiac exam, Rhythm is regular.. No murmurs, rubs or gallops. Abdominal exam reveals normal bowel sounds, soft non tender, no masses Extremities are nonedematous and both pedal pulses are present Neurologic exam is alert and oriented, no focal loss of strength or sensation Skin is without bruises or rashes Psychologically c/o not feeling "right" in her head Results & Data Results & Data ([facility]) Vital Signs (Past 12 Hours) Vital Signs Temp Pulse Pulse Resp BP BP Pulse Ox 01/22/21 19:09 99.0 F 58 L 16 112/72 98 01/22/21 15:41 99.0 F 62 16 114/73 96 01/22/21 15:38 63 PG Care Time/CCT Total # of Minutes Spent Total Time Spent with Patient: Total time spent is greater than 50% in coordination of care (as documented) at patient's floor/unit and/or counseling patient: Coding Level of Care Code 33076 Subseq Hosp Care Lvl 2 Diagnoses Observed seizure-like activity R56.9 Fever R50.9 Fever type: unspecified Hypothyroidism E03.9 Psychosis F29 Tardive dyskinesia G24.01 Bipolar 1 disorder F31.9 Hyperlipidemia E78.5 DVT prophylaxis Z29.9 (1) Fever Fever type: unspecified Qualified Code(s): R50.9 - Fever, unspecified
[2021-01-22] MEDS: ATORVASTATIN 20 MG TAB PO SCH (21:18)
[2021-01-22] MEDS: CYCLOBENZAPRINE HCL 5 MG TAB PO SCH (21:18)
[2021-01-23] MEDS: ENOXAPARIN INJ 30 MG/0.3 ML SYR SQ SCH (00:43)
[2021-01-23] MEDS: GABAPENTIN 300 MG CAP PO SCH ×3 (08:20→20:18)
[2021-01-23] MEDS: BENZTROPINE MESYLATE 1 MG TAB PO SCH ×2 (08:20→20:19)
[2021-01-23] MEDS: ASPIRIN 81 MG ECTAB PO SCH (08:21)
[2021-01-23] MEDS: DICLOFENAC SOD 1% GEL 100 GM TUBE EXT SCH ×2 (08:21→20:20)
[2021-01-23] MEDS: PROPRANOLOL HCL 20 MG TAB PO SCH ×2 (08:21→20:21)
[2021-01-23] MEDS: FLUoxetine HCL 20 MG CAP PO SCH (08:21)
[2021-01-23] MEDS: TOCOPHERYL, DL-ALPHA 400 UNITS 180 MG CAP PO SCH (08:21)
[2021-01-23] MEDS: VALBENAZINE 40 MG PO SCH (08:22)
[2021-01-23] MEDS: POLYETHYLENE (MIRALAX) 17 GM PACK PO SCH (10:45)
--- NOTE | 2021-01-23 14:02 | Hospitalist Progress Note ---
Date of Service January 23, 2021 Assessment & Plan (1) Observed seizure-like activity: Plan: * Patient's seizure-like activity does not appear to be true tonic-clonic seizure as she was responsive and answered questions despite movement in all 4 limbs. EEG on 01/15 was done during these tremors and showed generalized slowing, but no seizure activity. * Neurology on board and does not feel (given the information listed above) that patient had a seizure * Likely medication-induced tremor vs. long-term sequelae of her psychiatric meds * Dr. Garza (neurology) and Dr. Rodriguez/ Alec(Psych) on board: recommendation to adjust psyche meds ([place] was recommended but patient declined. Currently on: Prozac, Cogentin/Ingrezza (for TD), Gabapentin/propranolol/Flexeril (for tremor) * There was a consideration for MRI of brain w and w/o (made by Neurol initially). Not yet performed. Would consider this for completeness sake; however, with the current TD ongoing- I suspect that the results would be limited given motion artifact. I DO NOT WANT TO SEDATE this patient for the sake of this study when we are dealing with issues likely related to polypharmacy. Will reach out to Neuro to see if this is still recommended and if so, attempt the study knowing that the results may be limited. She gets this from [facility] ([phone]). She has 80 mg capsules at [facility], but they cannot be split. placed the order on , it will be shipped to her son and he can bring them if they arrive at this time using samples from [facility] . Son feels that currently home not a good option for patient, he is trying to get waiver system in place but not secure yet (2) Hypothyroidism: Plan: TSH was 1.5 this admission. - Continue levothyroxine 75 mcg daily (3) Psychosis: Plan: Psychosis/bipolar 1 disorder - found that her prozac held and was restarted 01/20 (psych on board) (4) Tardive dyskinesia: Plan: * Back on Ingrezza in addition to Cogentin. Psych on boardappreciate recommendations * Patient on 40 mg of Ingrezza. Per up-to-date recommendations, may require 80 mg to take full effect. Need to be on 40 mg X 1 week prior to up titration. (5) Bipolar 1 disorder: Plan: * See above restarting prozac * Patient declined lithium as recommended by psychiatry (6) Hyperlipidemia: Plan: - Remains on ASA & statin (7) DVT prophylaxis: Plan: Lovenox 30 mg SQ daily (8) Fever: Plan: Patient developed temperature to 100.2 F while in the ED. Unclear cause; some concern regarding possible aspiration however she has been completely afebrile since. No hypoxemia or respiratory symptoms. There was some concern for neuroleptic malignant syndrome, but this seems unlikely at this point with no further fever & normal CK. - Received cefepime 2 g IV in the ED, no additional antibiotics. - No recurrence at this time (9) Constipation: Plan: * Add MiraLAX daily/routine until she has a BM and then as needed Plan: Plan of care to discussed with Dr. Pena. Further orders as warranted. Admission and Anticipated Discharge Date Admission Date: January 14, 2021 Supervising Physician Co-Signing Physician Notes Attending Attestation - Chart reviewed in detail, care plan d/w LARRY Pan. I agree w/ the [place] components of her documentation. Prolonged hospitalization for ?seizure activity. Seizure activity ruled out/not suspected. [place] to be due to medication side effect (possible extrapyramidal side effects) and/or severe TD. NMS not suspected despite fever at presentation. Since that time complex medication management has occurred with significant input from psychiatry and neurology. 2.6cm left kidney lesion - needs dedicated u/s post-d/c. Dispo planning. Chalino Pena MD Subjective Patient seen on daily rounds today. She was hospitalized on 01/14 from [facility] with concerns for seizure activity. Patient with ongoing history of hypothyroidism, bipolar, hypertension, neuroleptic parkinsonism, and hyperlipidemia. Upon admission, TSH was normal at 1.54. Head CT was within normal limits. Neuro and psych on board and thought to be tardive dyskinesia from Invega (which has since been stopped). MRI of the brain recommended by neuro. Not yet completed. Patient on Gabapentin and propranolol for tremor In addition, on Cogentin/ Flexeril/ Ingrezza for Tardive Dyskenesia (Ingrezza just restarted yesterday--second dose received today). Patient reports symptoms improved; however, still very persistent. She is complaining of some constipation. Denies fevers, chills, chest pain, shortness of breath, abdominal pain, nausea or vomiting. Patient from [facility]. Therapy services have been limited during this hospitalization given her tardive dyskinesia and unsteady gait. ? Back to [facility] versus [facility] Review of Systems Review of Systems: All systems reviewed and are unremarkable except as noted in HPI and below Denies fevers, chills, headache, nasal congestion, sore throat, cough, chest pain, shortness of breath, abdominal pain, nausea, vomiting, dysuria, hematuria, frequency, skin lesions or rashes. Physical Exam Physical Exam: General: Resting comfortably in her hospital bed. NAD. Resting tremor noted of bilateral upper extremities that intensifies with movement/intent. Rhythmic chorea-like movement of the jaw Neck: No JVD. Negative hepatojugular reflex Cardiac: RRR without M/G/R Lungs: CTA without W/R/R Abdomen: Normoactive X4. Soft and nontender in all quadrants. Extremities: No peripheral clubbing cyanosis or edema Neuro: A&O X4 cranial nerves II through XII are grossly intact. see above as outlined Skin: No obvious skin lesions or rashes Results & Data Results & Data ([facility]) Vital Signs (Past 12 Hours) Vital Signs Temp Pulse Pulse Resp BP BP Pulse Ox 01/23/21 11:00 37.2 C 63 16 110/70 93 01/23/21 07:25 52 L 01/23/21 07:14 36.7 C 72 16 105/65 95 01/23/21 04:02 52 L 01/23/21 03:21 36.6 C 64 18 131/72 96 Laboratory Results 01/17/21 05:53 01/17/21 05:53 PG Care Time/CCT Total # of Minutes Spent Total Time Spent with Patient: Total time spent is greater than 50% in reconciliation coordinator rdination of care (as documented) at patient's floor/unit and/or counseling patient: Coding [place] [address] Subseq Hosp Care Lvl 3 Patient Type Established Medical Decision Making Moderate Complexity Diagnoses Observed seizure-like activity R56.9 Hypothyroidism E03.9 Psychosis F29 Tardive dyskinesia G24.01 Bipolar 1 disorder F31.9 Hyperlipidemia E78.5 DVT prophylaxis Z29.9 Fever R50.9 Fever type: unspecified Constipation K59.00 (1) Fever Fever type: unspecified Qualified Code(s): R50.9 - Fever, unspecified
[2021-01-23] MEDS ORDERED: GADOBUTROL 65ML VIAL IV ONE (18:56)
--- NOTE | 2021-01-23 19:30 | Magnetic Resonance Report ---
Brain MRI WITH AND WITHOUT CONTRAST HISTORY: tardive dyskinesia TECHNIQUE: Multiplanar multisequence MRI of the brain was performed both before and after the intrave nous administration of contrast. COMPARISON STUDY: Brain MRI 07/04/2020. FINDINGS: There are no areas of restricted diffusion to suggest acute infarction. The midline structu res are intact. The paranasal sinuses are clear. The mastoid air cells are clear. The ventricles and sulci are within normal limits for age. There is no mass, hematoma, midline shift. The major vascular flow-voids at the skull base are well maintained. Postcontrast sequences show no areas of abnormal e nhancement. IMPRESSION: No significant change compared to the prior study. No acute intracranial abnormality. ACT 112: Negative or not required by law. Electronically signed by: True Iverson M.D. 01/23/2021 7:29 PM
[2021-01-23] MEDS: CYCLOBENZAPRINE HCL 5 MG TAB PO SCH (20:19)
[2021-01-23] MEDS: ATORVASTATIN 20 MG TAB PO SCH (21:29)
[2021-01-24] MEDS: ENOXAPARIN INJ 30 MG/0.3 ML SYR SQ SCH (01:20)
[2021-01-24 06:32] LABS: Basophils # (auto) 0.01 K/uL (0-0.2); Basophils % (auto) 0.1 %; Eosinophils # (auto) 0.22 K/uL (0-0.5); Eosinophils % (auto) 2.9 %; Hematocrit (blood only) 37.9 % (37-47); Hemoglobin 12.3 g/dL (12.0-16.0); Immature Granulocytes # (auto) 0.01 K/uL (0.00-0.02); Immature Granulocytes % (auto) 0.1 %; Lymphocytes # (auto) 1.81 K/uL (1.2-3.4); Lymphocytes % (auto) 23.8 %; Mean Corpuscular Hemoglobin 30.4 pg (25-34); Mean Corpuscular Hgb Conc 32.5 g/dL (32-36); Mean Corpuscular Volume 93.8 fL (80-100); Mean Platelet Volume 10.8 fL (7.4-10.4); Monocytes # (auto) 0.65 K/uL (0.11-0.59); Monocytes % (auto) 8.6 %; Neutrophils # (auto) 4.89 K/uL (1.4-6.5); Neutrophils % (auto) 64.5 %; Platelet Count 209 K/uL (130-400); RDW Coefficient of Variation 13.3 % (11.5-14.5); Red Blood Count 4.04 M/uL (4.2-5.4); White Blood Count 7.59 K/uL (4.8-10.8)
[2021-01-24 07:05] LABS: BUN Creatinine Ratio 8.4 (10-20); Calcium 9.2 mg/dl (8.5-10.1); Creatinine Clr Calc Pharmacy 72.3 ml/min; Est GFR (African American) 109.7 ml/min; Est GFR (Non-African American) 94.7 ml/min; Magnesium 1.9 mg/dl (1.8-2.4); Potassium 3.8 mmol/L (3.5-5.1)
[2021-01-24] MEDS: FLUoxetine HCL 20 MG CAP PO SCH (08:47)
[2021-01-24] MEDS: PROPRANOLOL HCL 20 MG TAB PO SCH ×2 (08:48→20:33)
[2021-01-24] MEDS: ASPIRIN 81 MG ECTAB PO SCH (08:48)
[2021-01-24] MEDS: BENZTROPINE MESYLATE 1 MG TAB PO SCH ×2 (08:48→20:34)
[2021-01-24] MEDS: TOCOPHERYL, DL-ALPHA 400 UNITS 180 MG CAP PO SCH (08:48)
[2021-01-24] MEDS: DICLOFENAC SOD 1% GEL 100 GM TUBE EXT SCH ×2 (08:49→20:35)
[2021-01-24] MEDS: GABAPENTIN 300 MG CAP PO SCH ×3 (08:49→20:33)
[2021-01-24] MEDS: POLYETHYLENE (MIRALAX) 17 GM PACK PO SCH (08:49)
[2021-01-24] MEDS: VALBENAZINE 40 MG PO SCH (08:49)
[2021-01-24] MEDS ORDERED: SOD PHOSPHATE/SOD BIPHOSPHATE ENEMA 132 ML BTL PR PRN (11:36)
--- NOTE | 2021-01-24 13:11 | Hospitalist Progress Note ---
Date of Service January 24, 2021 Assessment & Plan (1) Observed seizure-like activity: Plan: * Patient's seizure-like activity does not appear to be true tonic-clonic seizure as she was responsive and answered questions despite movement in all 4 limbs. EEG on 01/15 was done during these tremors and showed generalized slowing, but no seizure activity. * Neurology on board and does not feel (given the information listed above) that patient had a seizure * Likely medication-induced tremor with concurrent long-term sequelae of her psychiatric meds (tardive dyskinesia) given recent stay in the [facility] with adjustment in her psychiatric medications * Invega has since been stopped! * Dr. Garza (neurology) and Dr. Rodriguez/ Alec(Psych) on board: recommendation to adjust psyche meds ([place] was recommended but patient declined). Currently on: Prozac, Cogentin/Ingrezza (for TD), Gabapentin/propranolol/Flexeril (for tremor) * W/U included CT of the head, EEG, MRI, TSH-- all Unremarkable * symptoms persistent but greatly improved with introduction of Cogentin and resumption of Ingrezza. Per up-to-date literature, goal therapeutic dose of Ingrezza is 80mg/day but start at 40mg daily x 7 days (today sloan day #3). I am hopeful that with the improvement seen while in house, she will have continued improvement with continuation and uptitration of this medication * At this time, stable for D/C back to [facility] for continued IP rehab; however, awaiting an authorization She gets this from [facility] ([phone]). She has 80 mg capsules at [facility], but they cannot be split. placed the order on , it will be shipped to her son and he can bring them if they arrive at this time using samples from [facility] . Son feels that currently home not a good option for patient, he is trying to get waiver system in place but not secure yet (2) Hypothyroidism: Plan: TSH was 1.5 this admission. - Continue levothyroxine 75 mcg daily (3) Psychosis: Plan: Psychosis/bipolar 1 disorder - found that her prozac held and was restarted 01/20 (psych on board) (4) Tardive dyskinesia: Plan: * Back on Ingrezza in addition to Cogentin. Psych on boardappreciate recommendations * Patient on 40 mg of Ingrezza. Per up-to-date recommendations, may require 80 mg to take full effect. Need to be on 40 mg X 1 week prior to up titration. (5) Bipolar 1 disorder: Plan: * See above restarting prozac * Patient declined lithium as recommended by psychiatry (6) Hyperlipidemia: Plan: - Remains on ASA & statin (7) DVT prophylaxis: Plan: Lovenox 30 mg SQ daily (8) Fever: Plan: Patient developed temperature to 100.2 F while in the ED. Unclear cause; some concern regarding possible aspiration however she has been completely afebrile since. No hypoxemia or respiratory symptoms. There was some concern for neuroleptic malignant syndrome, but this seems unlikely at this point with no further fever & normal CK. - Received cefepime 2 g IV in the ED, no additional antibiotics. - No recurrence at this time (9) Constipation: Plan: * Add MiraLAX daily/routine until she has a BM and then as needed * add fleets enema every 30min (for up to 3 until desired effect) Plan: * patient is medically and HD stable for D/C * plan is for her to go back to [facility]; however, authorization required (which can not happen over a weekend) * plan of care to be D/W Dr. Pena. Further orders as warrented. Admission and Anticipated Discharge Date Admission Date: January 14, 2021 Supervising Physician Co-Signing Physician Notes Attending Attestation - Chart reviewed in detail, care plan d/w LARRY Pan. I agree w/ the goodman components of her documentation. Patient continues to progress with Rx of her tardive dyskinesia with recent institution of Valbenazine. Outstanding future needs - 2.6cm left kidney lesion - needs dedicated u/s post- d/c. Dispo - [facility]. Chalino Pena MD Subjective Patient seen on daily rounds today. Ended up having MRI yesterday for completeness sake (as initially recommended by neuro) that showed no acute pathology. Surprisingly, her tardive dyskinesia did not cause significant artifact that it limited the results. Overall, her tardive dyskinesia continues to show improvement (with Cogentin and Ingrezza). Patient notices improvement today. Was able to get up to the chair and had a much easier time feeding herself. Still has not had a BM despite MiraLAX being given. As previously stated, [facility] comes [facility]. Apparently was discharged to there from the [facility] after a psychiatric inpatient stay. Plan is for discharge back to [facility]. Review of Systems Review of Systems: All systems reviewed and are unremarkable except as noted in HPI and below Denies fevers, chills, headache, nasal congestion, sore throat, cough, chest pain, shortness of breath, abdominal pain, nausea, vomiting, dysuria, hematuria, frequency, skin lesions or rashes. Physical Exam Physical Exam: General: Resting comfortably in her bedside chair. NAD. Still having a resting tremor. Worse with intention. Still with intentional rhythmic movement of her jaw but significantly improved today. Her bradykinesia slow response has improved greatly Neck: No JVD. Negative hepatojugular reflex Cardiac: RRR without M/G/R Lungs: CTA without W/R/R Abdomen: Normoactive X4. Soft and nontender in all quadrants. Extremities: No peripheral clubbing cyanosis or edema Neuro: A&O X4. See above as outlined Skin: No obvious skin lesions or rashes Results & Data Results & Data ([facility]) Vital Signs (Past 12 Hours) Vital Signs Temp Pulse Pulse Resp BP BP Pulse Ox 01/24/21 11:20 37.1 C 56 L 22 104/66 97 01/24/21 07:19 36.7 C 62 18 124/72 96 01/24/21 07:04 56 L 01/24/21 03:51 36.6 C 61 97 H 110/67 99 Laboratory Results 01/24/21 05:25 01/24/21 05:25 PG Care Time/CCT Total # of Minutes Spent Total Time Spent with Patient: Total time spent is greater than 50% in coordination of care (as documented) at patient's floor/unit and/or counseling patient: C[place] [address] Subseq Hosp Care Lvl 2 Patient Type Established Medical Decision Making Straight Forward Diagnoses Observed seizure-like activity R56.9 Hypothyroidism E03.9 Psychosis F29 Tardive dyskinesia G24.01 Bipolar 1 disorder F31.9 Hyperlipidemia E78.5 DVT prophylaxis Z29.9 Fever R50.9 Fever type: unspecified Constipation K59.00 (1) Fever Fever type: unspecified Qualified Code(s): R50.9 - Fever, unspecified
--- NOTE | 2021-01-24 17:42 | Psychiatric Progress Note ---
Date of Service January 24, 2021 Impression / Recommendations Impression 60 yo female with longstanding history of bipolar disorder, presented with acute myoclonus and dystonia, ongoing confusion previously attributed to psychiatric condition, neurology doubts post ictal (and I agree), and likely side effects/delirium/mild serotonin syndrome from psychiatric polypharmacy. she has had muliple med changes and chronic psych issues that difficult to tell what is medication side effect vs true underlying Parkinson's disease. 01/24/21--significantly improved (1) Bipolar 1 disorder: (2) Dystonic drug reaction: (3) Tardive dyskinesia: no acute indication to retry lithium would maintain Prozac low dose so less likely to be activating given hx of alison Ingrezza may need retitrated after appropriate time at 40 mg if dyskinesias persist. Interval History Identifying Information 60 yo female with bipolar disorder, admit with significant tremor and dystonia on antipsychotic medication. Chief Complaint "I'm feeling good". Subjective Subjective Patient was seen & assessed and interval progress reviewed via chart and with liaison as transition of clinical resposibility for consult service back from Dr. Alfredo. Patient under my care earlier in stay and continues to show some significant improvement. She is sitting up, feeding herself and denies neck stiffness. ROS: She continues to deny depression and exhibits no symptoms of nichole or alison. She does have some residual intention tremor and return of mild oral dyskinesias (Ingrezza has since been restarted). Less anxious than less contact. Physical Exam Psychiatric Orientation: alert Apperance: appropriately dressed and appropriately groomed Eye Contact: good eye contact Motor Behavior: no abnormal motor movements Affect: euthymic affect mood is "GOOD" Thought Process: + concrete thought process Thought Content: reality based without delusions Suicidal Thoughts: denies suicidal thoughts Homicidal Thoughts: denies homicidal thoughts Hallucinations: no auditory hallucinations and no visual hallucinations Cognition: attention grossly intact and language grossly intact Estimated Intelligence: consistent with education level Insight: + fair insight Judgement: + fair judgement Vital Signs (Past 24 Hours) Last Vital Signs Temp 37.4 C 01/24/21 16:00 Pulse 55 L 01/24/21 16:00 Resp 16 01/24/21 16:00 BP 98/60 L 01/24/21 16:00 Pulse Ox 97 01/24/21 16:00 Results & Data ([facility]) Laboratory Results Laboratory Results - last 24 hr 01/24/21 01/24/21 05:25 05:25 WBC 7.59 RBC 4.04 L Hgb 12.3 Hct 37.9 MCV 93.8 MCH 30.4 MCHC 32.5 RDW Std Deviation 46.0 RDW Coeff of Zakiya 13.3 Plt Count 209 MPV 10.8 H Immature Gran % (Auto) 0.1 Neut % (Auto) 64.5 Lymph % (Auto) 23.8 Phelps % (Auto) 8.6 Eos % (Auto) 2.9 Baso % (Auto) 0.1 Neut # (Auto) 4.89 Lymph # (Auto) 1.81 Phelps # (Auto) 0.65 H Eos # (Auto) 0.22 Baso # (Auto) 0.01 Immature Gran # (Auto) 0.01 Sodium 140 Potassium 3.8 Chloride 107 Carbon Dioxide 29 Anion Gap 5.0 BUN 6 L Creatinine 0.66 Est Cr Clr Drug Dosing 72.3 Est GFR ( Amer) 109.7 Est GFR (Non-Af Amer) 94.7 BUN/Creatinine Ratio 8.4 L Glucose 93 Calcium 9.2 Magnesium 1.9 Current Inpatient Medications Current Inpatient Medications: Current Inpatient Medications Acetaminophen (Acetaminophen 325 Mg Tab) 650 mg PO Q6H PRN PRN Reason: Pain Stop: 02/15/21 20:03 Last Admin: 01/17/21 19:58 Dose: 650 mg Documented by: Aspirin (Aspirin 81 Mg Ectab) 81 mg PO QAM [facility] Stop: 02/15/21 08:59 Last Admin: 01/24/21 08:48 Dose: 81 mg Documented by: Atorvastatin Calcium (Atorvastatin 20 Mg Tab) 20 mg PO [facility] Stop: 02/14/21 20:59 Last Admin: 01/23/21 21:29 Dose: 20 mg Documented by: Benztropine Mesylate (Benztropine Mesylate 1 Mg Tab) 1 mg PO BID [facility] Stop: 02/21/21 20:59 Last Admin: 01/24/21 08:48 Dose: 1 mg Documented by: Cyclobenzaprine HCl (Cyclobenzaprine Hcl 5 Mg Tab) 5 mg PO [facility] Stop: 02/15/21 20:59 Last Admin: 01/23/21 20:19 Dose: 5 mg Documented by: Diclofenac Sodium (Diclofenac Sod 1% Gel 100 Gm Tube) 2 gm EXT BID DONNIE Stop: 02/19/21 22:59 Last Admin: 01/24/21 08:49 Dose: 2 gm Documented by: Enoxaparin Sodium (Enoxaparin Inj 30 Mg/0.3 Ml Syr) 30 mg SQ Q24H DONNIE Stop: 02/13/21 23:14 Last Admin: 01/24/21 01:20 Dose: 30 mg Documented by: Fluoxetine HCl (Fluoxetine Hcl 20 Mg Cap) 40 mg PO QAM [facility] Stop: 02/20/21 08:59 Last Admin: 01/24/21 08:47 Dose: 40 mg Documented by: Gabapentin (Gabapentin 300 Mg Cap) 300 mg PO TID [facility] Stop: 02/14/21 20:59 Last Admin: 01/24/21 14:50 Dose: 300 mg Documented by: Lorazepam (Ativan) 1 mg in 2 mls @ 0.5 mls/min IV UD PRN PRN Reason: Anxiety/Agitation Stop: 02/13/21 22:56 Last Admin: 01/20/21 17:00 Dose: 0.5 mls/min Documented by: Valbenazine 40 Mg Capsule: Non- Formulary Patient's Own Med 1 ea PO DAILY [facility] Stop: 02/21/21 08:59 Last Admin: 01/24/21 08:49 Dose: 40 mg Documented by: Ondansetron HCl (Ondansetron Inj 2 Mg/Ml 2 Ml Vial) 4 mg IV Q6H PRN PRN Reason: Nausea Stop: 02/13/21 22:56 Last Admin: 01/22/21 19:41 Dose: 4 mg Documented by: Polyethylene Glycol (Polyethylene (Miralax) 17 Gm Pack) 17 gm PO DAILY DONNIE Stop: 02/22/21 10:44 Last Admin: 01/24/21 08:49 Dose: 17 gm Documented by: Propranolol HCl (Propranolol Hcl 20 Mg Tab) 20 mg PO BID [facility] Stop: 02/14/21 20:59 Last Admin: 01/24/21 08:48 Dose: 20 mg Documented by: Sodium Biphosphate/Sodium Phosphate (Sod Phosphate/Sod Biphosphate Enema 132 Ml Btl) 132 ml UT Q30M PRN PRN Reason: constipation Vitamin E (Tocopheryl, Dl-Alpha 400 Units 180 Mg Cap) 400 units PO QAM [facility] Stop: 02/20/21 08:59 Last Admin: 01/24/21 08:48 Dose: 400 units Documented by:
[2021-01-24] MEDS: ATORVASTATIN 20 MG TAB PO SCH (20:33)
[2021-01-24] MEDS: CYCLOBENZAPRINE HCL 5 MG TAB PO SCH (20:34)
[2021-01-25] MEDS: ENOXAPARIN INJ 30 MG/0.3 ML SYR SQ SCH ×2 (00:43→22:59)
[2021-01-25] MEDS: GABAPENTIN 300 MG CAP PO SCH ×3 (08:05→20:13)
[2021-01-25] MEDS: FLUoxetine HCL 20 MG CAP PO SCH (08:05)
[2021-01-25] MEDS: TOCOPHERYL, DL-ALPHA 400 UNITS 180 MG CAP PO SCH (08:05)
[2021-01-25] MEDS: BENZTROPINE MESYLATE 1 MG TAB PO SCH ×2 (08:05→20:12)
[2021-01-25] MEDS: PROPRANOLOL HCL 20 MG TAB PO SCH ×2 (08:05→20:15)
[2021-01-25] MEDS: VALBENAZINE 40 MG PO SCH (08:06)
[2021-01-25] MEDS: DICLOFENAC SOD 1% GEL 100 GM TUBE EXT SCH ×2 (08:06→20:14)
[2021-01-25] MEDS: ASPIRIN 81 MG ECTAB PO SCH (08:06)
[2021-01-25] MEDS: POLYETHYLENE (MIRALAX) 17 GM PACK PO SCH (08:06)
--- NOTE | 2021-01-25 10:47 | Hospitalist Progress Note ---
Date of Service January 25, 2021 Assessment & Plan (1) Observed seizure-like activity: Plan: * Patient's seizure-like activity does not appear to be true tonic-clonic seizure as she was responsive and answered questions despite movement in all 4 limbs. EEG on 01/15 was done during these tremors and showed generalized slowing, but no seizure activity. * Neurology on board and does not feel (given the information listed above) that patient had a seizure * Likely medication-induced tremor with concurrent long-term sequelae of her psychiatric meds (tardive dyskinesia) given recent stay in the [facility] with adjustment in her psychiatric medications * Invega has since been stopped! * Dr. Garza (neurology) and Dr. Rodriguez/ Alec(Psych) on board: recommendation to adjust psyche meds ([place] was recommended but patient declined). Currently on: Prozac, Cogentin/Ingrezza (for TD), Gabapentin/propranolol/Flexeril (for tremor) * W/U included CT of the head, EEG, MRI, TSH-- all Unremarkable * symptoms persistent but greatly improved with introduction of Cogentin and resumption of Ingrezza. Per up-to-date literature, goal therapeutic dose of Ingrezza is 80mg/day but start at 40mg daily x 7 days (today sloan day #4). I am hopeful that with the improvement seen while in house, she will have continued improvement with continuation and uptitration of this medication * At this time, stable for D/C back to [facility] for continued IP rehab; however, awaiting an authorization She gets this from [facility] ([phone]). She has 80 mg capsules at [facility], but they cannot be split. placed the order on , it will be shipped to her son and he can bring them if they arrive at this time using samples from [employer] . Son feels that currently home not a good option for patient, he is trying to get waiver system in place but not secure yet (2) Hypothyroidism: Plan: TSH was 1.5 this admission. - Continue levothyroxine 75 mcg daily (3) Psychosis: Plan: Psychosis/bipolar 1 disorder - found that her prozac held and was restarted 01/20 (psychiatry in agreement) (4) Tardive dyskinesia: Plan: * Back on Ingrezza in addition to Cogentin. Psychiatry in agreement * Patient on 40 mg of Ingrezza. Per up-to-date recommendations, may require 80 mg to take full effect. Need to be on 40 mg X 1 week prior to up titration. (5) Bipolar 1 disorder: Plan: * See above restarting prozac * Patient declined lithium as recommended by psychiatry (6) Hyperlipidemia: Plan: - Remains on ASA & statin (7) DVT prophylaxis: Plan: Lovenox 30 mg SQ daily (8) Fever: Plan: Patient developed temperature to 100.2 F while in the ED. Unclear cause; some concern regarding possible aspiration however she has been completely afebrile since. No hypoxemia or respiratory symptoms. There was some concern for neuroleptic malignant syndrome, but this seems unlikely at this point with no further fever & normal CK. - Received cefepime 2 g IV in the ED, no additional antibiotics. - No recurrence -Continue with vital signs per protocol (9) Constipation: Plan: * Add MiraLAX daily/routine until she has a BM and then as needed * add fleets enema every 30min (for up to 3 until desired effect) Plan: * patient is medically and HD stable for D/C * plan is for her to go back to [facility]; however, authorization required (which can not happen over a weekend) Admission and Anticipated Discharge Date Admission Date: January 14, 2021 Supervising Physician Co-Signing Physician Notes Attending Attestation - Chart reviewed in detail, care plan d/w PA Lucas Hall. I agree w/ the goodman components of his documentation. Patient continues to progress with Rx of her tardive dyskinesia with recent institution of Valbenazine. Baseline long-standing bipolar d/o. All other medical issues stable. b/l leg discomfort today -- recent CPK, TSH, B12, mag, K all wnl. On lovenox for DVT proph and Mr Isabel's extremity exam wnl. Follow carefully. Outstanding future needs - 2.6cm left kidney lesion - needs dedicated u/s post-d/c. Dispo - [facility], hopefully early this week. Chalino Pena MD Subjective Attending: Dr. Pena Patient seen and examined at bedside. She is in bedside chair. She has notable tremor. She is alert and oriented x3. She definitely has evidence of tardive dyskinesia. She states that she has some pain in her bilateral lower extremities "all over". She specifically denies calf pain or edema. No evidence of neuropathy. She denies fever, chills, sweats, rigors. She has no aspiration per her report. No chest pain or tightness. Her only acute complaint is bilateral lower extremity discomfort. Review of Systems Review of Systems: All systems reviewed & are unremarkable except as noted in Subjective Physical Exam Physical Exam: GENERAL : No acute distress. EYES: No icterus, gaze conjugate. Pupils equal round and reactive to light. NOSE: No evidence of epistaxis MOUTH: No lesions or candidiasis. Mucosa moist. NECK: Supple LUNGS: CTA B/L, no wheezes, rales or rhonchi HEART: Regular, rate controlled ABDOMEN: Soft, NT, ND, BS Present EXTREMITIES: No LE edema, pedal pulses intact and equal bilaterally. Positive cogwheeling bilateral upper extremities in the wrist and in the elbow. NEURO: A&OX3 Results & Data Results & Data ([facility]) Vital Signs (Past 12 Hours) Vital Signs Temp Pulse Resp BP BP Pulse Ox 01/25/21 07:07 37.1 C 57 L 16 117/74 97 01/25/21 03:22 37 C 54 L 16 102/62 94 01/24/21 23:43 37.1 C 52 L 16 105/68 98 Laboratory Results 01/24/21 05:25 01/24/21 05:25 Diagnostic Findings No new diagnostic findings Medications Administered Current Inpatient Medications Acetaminophen (Acetaminophen 325 Mg Tab) 650 mg PO Q6H PRN PRN Reason: Pain Stop: 02/15/21 20:03 Last Admin: 01/17/21 19:58 Dose: 650 mg Documented by: Aspirin (Aspirin 81 Mg Ectab) 81 mg PO QAM [facility] Stop: 02/15/21 08:59 Last Admin: 01/25/21 08:06 Dose: 81 mg Documented by: Atorvastatin Calcium (Atorvastatin 20 Mg Tab) 20 mg PO HS [facility] Stop: 02/14/21 20:59 Last Admin: 01/24/21 20:33 Dose: 20 mg Documented by: Benztropine Mesylate (Benztropine Mesylate 1 Mg Tab) 1 mg PO BID [facility] Stop: 02/21/21 20:59 Last Admin: 01/25/21 08:05 Dose: 1 mg Documented by: Cyclobenzaprine HCl (Cyclobenzaprine Hcl 5 Mg Tab) 5 mg PO HS [facility] Stop: 02/15/21 20:59 Last Admin: 01/24/21 20:34 Dose: 5 mg Documented by: Diclofenac Sodium (Diclofenac Sod 1% Gel 100 Gm Tube) 2 gm EXT BID [facility] Stop: 02/19/21 22:59 Last Admin: 01/25/21 08:06 Dose: 2 gm Documented by: Enoxaparin Sodium (Enoxaparin Inj 30 Mg/0.3 Ml Syr) 30 mg SQ Q24H [facility] Stop: 02/13/21 23:14 Last Admin: 01/25/21 00:43 Dose: 30 mg Documented by: Fluoxetine HCl (Fluoxetine Hcl 20 Mg Cap) 40 mg PO QAM [facility] Stop: 02/20/21 08:59 Last Admin: 01/25/21 08:05 Dose: 40 mg Documented by: Gabapentin (Gabapentin 300 Mg Cap) 300 mg PO TID [facility] Stop: 02/14/21 20:59 Last Admin: 01/25/21 08:05 Dose: 300 mg Documented by: Lorazepam (Ativan) 1 mg in 2 mls @ 0.5 mls/min IV UD PRN PRN Reason: Anxiety/Agitation Stop: 02/13/21 22:56 Last Admin: 01/20/21 17:00 Dose: 0.5 mls/min Documented by: Valbenazine 40 Mg Capsule: Non- Formulary Patient's Own Med 1 ea PO DAILY [facility] Stop: 02/21/21 08:59 Last Admin: 01/25/21 08:06 Dose: 40 mg Documented by: Ondansetron HCl (Ondansetron Inj 2 Mg/Ml 2 Ml Vial) 4 mg IV Q6H PRN PRN Reason: Nausea Stop: 02/13/21 22:56 Last Admin: 01/22/21 19:41 Dose: 4 mg Documented by: Polyethylene Glycol (Polyethylene (Miralax) 17 Gm Pack) 17 gm PO DAILY [facility] Stop: 02/22/21 10:44 Last Admin: 01/25/21 08:06 Dose: 17 gm Documented by: Propranolol HCl (Propranolol Hcl 20 Mg Tab) 20 mg PO BID [facility] Stop: 02/14/21 20:59 Last Admin: 01/25/21 08:05 Dose: Not Given Documented by: Sodium Biphosphate/Sodium Phosphate (Sod Phosphate/Sod Biphosphate Enema 132 Ml Btl) 132 ml CO Q30M PRN PRN Reason: constipation Vitamin E (Tocopheryl, Dl-Alpha 400 Units 180 Mg Cap) 400 units PO QAM [facility] Stop: 02/20/21 08:59 Last Admin: 01/25/21 08:05 Dose: 400 units Documented by: PG Care Time/CCT Total # of Minutes Spent Total Time Spent with Patient: Total time spent is greater than 50% in coordination of care (as documented) at patient's floor/unit and/or counseling patient: Coding Level of Care Code 26788 Subseq Hosp Care Lvl 2 Diagnoses Observed seizure-like activity R56.9 Hypothyroidism E03.9 Psychosis F29 Tardive dyskinesia G24.01 Bipolar 1 disorder F31.9 Hyperlipidemia E78.5 DVT prophylaxis Z29.9 Fever R50.9 Fever type: unspecified Constipation K59.00 (1) Fever Fever type: unspecified Qualified Code(s): R50.9 - Fever, unspecified
[2021-01-25] MEDS: ATORVASTATIN 20 MG TAB PO SCH (20:13)
[2021-01-25] MEDS: CYCLOBENZAPRINE HCL 5 MG TAB PO SCH (20:14)
[2021-01-26] MEDS: TOCOPHERYL, DL-ALPHA 400 UNITS 180 MG CAP PO SCH (08:17)
[2021-01-26] MEDS: BENZTROPINE MESYLATE 1 MG TAB PO SCH ×2 (08:17→20:35)
[2021-01-26] MEDS: ASPIRIN 81 MG ECTAB PO SCH (08:17)
[2021-01-26] MEDS: FLUoxetine HCL 20 MG CAP PO SCH (08:17)
[2021-01-26] MEDS: POLYETHYLENE (MIRALAX) 17 GM PACK PO SCH (08:18)
[2021-01-26] MEDS: GABAPENTIN 300 MG CAP PO SCH ×3 (08:18→20:34)
[2021-01-26] MEDS: VALBENAZINE 40 MG PO SCH (08:19)
[2021-01-26] MEDS: DICLOFENAC SOD 1% GEL 100 GM TUBE EXT SCH ×2 (08:23→20:36)
[2021-01-26] MEDS: ONDANSETRON INJ 2 MG/ML 2 ML VIAL IV PRN (08:35)
[2021-01-26] MEDS: PROPRANOLOL HCL 20 MG TAB PO SCH ×2 (11:58→20:37)
[2021-01-26] MEDS: ACETAMINOPHEN 325 MG TAB PO PRN (13:38)
--- NOTE | 2021-01-26 16:37 | Hospitalist Progress Note ---
Date of Service January 26, 2021 Assessment & Plan (1) Observed seizure-like activity: Plan: * Patient's seizure-like activity does not appear to be true tonic-clonic seizure as she was responsive and answered questions despite movement in all 4 limbs. EEG on 01/15 was done during these tremors and showed generalized slowing, but no seizure activity. * Neurology on board and does not feel (given the information listed above) that patient had a seizure * Likely medication-induced tremor with concurrent long-term sequelae of her psychiatric meds (tardive dyskinesia) given recent stay in the [facility] with adjustment in her psychiatric medications * Invega has since been stopped! * Dr. Garza (neurology) and Dr. Rodriguez/ Alec(Psych) on board: recommendation to adjust psyche meds (Lastrup was recommended but patient declined). Currently on: Prozac, Cogentin/Ingrezza (for TD), Gabapentin/propranolol/Flexeril (for tremor) * W/U included CT of the head, EEG, MRI, TSH-- all Unremarkable * symptoms persistent but greatly improved with introduction of Cogentin and resumption of Ingrezza. Per up-to-date literature, goal therapeutic dose of Ingrezza is 80mg/day but start at 40mg daily x 7 days (today sloan day #5). I am hopeful that with the improvement seen while in house, she will have continued improvement with continuation and uptitration of this medication * At this time, stable for D/C back to [facility] for continued IP rehab; however, awaiting an authorization She gets this from [email or web address] ([phone]). She has 80 mg capsules at [facility], but they cannot be split. placed the order on , it will be shipped to her son and he can bring them if they arrive at this time using samples from [employer] . Son feels that currently home not a good option for patient, he is trying to get waiver system in place but not secure yet (2) Hypothyroidism: Plan: TSH was 1.5 this admission. - Continue levothyroxine 75 mcg daily (3) Psychosis: Plan: Psychosis/bipolar 1 disorder - found that her prozac held and was restarted 01/20 (psychiatry in agreement) (4) Tardive dyskinesia: Plan: * Back on Ingrezza in addition to Cogentin. Psychiatry in agreement * Patient on 40 mg of Ingrezza. Per up-to-date recommendations, may require 80 mg to take full effect. Need to be on 40 mg X 1 week prior to up titration. (5) Bipolar 1 disorder: Plan: * See above restarting prozac * Patient declined lithium as recommended by psychiatry (6) Hyperlipidemia: Plan: - Remains on ASA & statin (7) DVT prophylaxis: Plan: Lovenox 30 mg SQ daily (8) Fever: Plan: Patient developed temperature to 100.2 F while in the ED. Unclear cause; some concern regarding possible aspiration however she has been completely afebrile since. No hypoxemia or respiratory symptoms. There was some concern for neuroleptic malignant syndrome, but this seems unlikely at this point with no further fever & normal CK. - Received cefepime 2 g IV in the ED, no additional antibiotics. - No recurrence -Continue with vital signs per protocol (9) Constipation: Plan: * Resolved with fleets enema and MiraLAX (10) Renal lesion: Plan: * review of admission diagnostics: CT showing 2.6 cm left upper pole renal lesion likely reflecting a cyst; however, nonemergent ultrasound recommended (which can be facilitated as an OP) Plan: * patient is medically and HD stable for D/C * plan is for her to go back to [facility]; however, authorization required. Case management on board. Authorization pending. * Plan of care discussed with Dr. Hollis. * call son (Sachin) to update him Admission and Anticipated Discharge Date Admission Date: January 14, 2021 Subjective Patient seen on daily rounds today. When last seen, complaining of constipation. This has since been treated/resolved. She vocalizes no significant complaints or concerns. Denies fevers, chills, chest pain, shortness of breath, abdominal pain, nausea or vomiting. Nursing voices no complaints or concerns. Case management on board and awaiting authorization for discharge back to [facility] versus need for SNF. Review of Systems Review of Systems: All systems reviewed and are unremarkable except as noted in HPI and below Denies fevers, chills, headache, nasal congestion, sore throat, cough, chest pain, shortness of breath, abdominal pain, nausea, vomiting, dysuria, hematuria, frequency, skin lesions or rashes. Physical Exam Physical Exam: General: Resting comfortably in her hospital bed. Still having a resting tremor. Worse with intention. Still with intentional rhythmic movement of her jaw but significantly improved today. Her bradykinesia slow response has improved greatly. Overall, tardive dyskinesia is improving Neck: No JVD. Negative hepatojugular reflex Cardiac: RRR without M/G/R Lungs: CTA without W/R/R Abdomen: Normoactive X4. Soft and nontender in all quadrants. Extremities: No peripheral clubbing cyanosis or edema Neuro: A&O X4 cranial nerves II through XII are grossly intact no focal neuro deficits Skin: No obvious skin lesions or rashes Results & Data Results & Data ([facility]) Vital Signs (Past 12 Hours) Vital Signs Temp Pulse Resp BP BP Pulse Ox 01/26/21 15:43 37.3 C 53 L 16 101/64 96 01/26/21 12:00 62 122/68 93 01/26/21 07:06 37.1 C 61 20 91/45 L 98 Laboratory Results No lab data today PG Care Time/CCT Total # of Minutes Spent Total Time Spent with Patient: Total time spent is greater than 50% in coordination of care (as documented) at patient's floor/unit and/or counseling patient: [place] [address] Subseq Hosp Care Lvl 1 Patient Type Established History Problem Focused Exam Problem Focused Diagnoses Observed seizure-like activity R56.9 Hypothyroidism E03.9 Psychosis F29 Tardive dyskinesia G24.01 Bipolar 1 disorder F31.9 Hyperlipidemia E78.5 DVT prophylaxis Z29.9 Fever R50.9 Fever type: unspecified Constipation K59.00 Renal lesion N28.9 (1) Fever Fever type: unspecified Qualified Code(s): R50.9 - Fever, unspecified
[2021-01-26] MEDS: ATORVASTATIN 20 MG TAB PO SCH (20:35)
[2021-01-26] MEDS: CYCLOBENZAPRINE HCL 5 MG TAB PO SCH (20:35)
[2021-01-26] MEDS: ENOXAPARIN INJ 30 MG/0.3 ML SYR SQ SCH (23:10)
[2021-01-27] MEDS: PROPRANOLOL HCL 20 MG TAB PO SCH (08:27)
[2021-01-27] MEDS: GABAPENTIN 300 MG CAP PO SCH ×2 (08:27→13:55)
[2021-01-27] MEDS: ASPIRIN 81 MG ECTAB PO SCH (08:27)
[2021-01-27] MEDS: BENZTROPINE MESYLATE 1 MG TAB PO SCH (08:27)
[2021-01-27] MEDS: FLUoxetine HCL 20 MG CAP PO SCH (08:27)
[2021-01-27] MEDS: TOCOPHERYL, DL-ALPHA 400 UNITS 180 MG CAP PO SCH (08:27)
[2021-01-27] MEDS: POLYETHYLENE (MIRALAX) 17 GM PACK PO SCH (08:27)
[2021-01-27] MEDS: VALBENAZINE 40 MG PO SCH (08:27)
[2021-01-27] MEDS: DICLOFENAC SOD 1% GEL 100 GM TUBE EXT SCH (08:28)
--- NOTE | 2021-01-27 14:33 | Discharge Summary ---
Date of Service January 27, 2021 Admission HPI Per Admitting Provider The patient is a 60-year-old female with a past medical history including hypothyroidism, ambulatory dysfunction, psychosis, tremors, tardive dyskinesia, cervical radiculopathy, neuroleptic induced parkinsonism, GERD, hypertension, bipolar 1 disorder and hyperlipidemia. Staff at [facility] reports that the patient had altered mental status after an approximate 4-minute interval of a seizure-like episode. Her son, who is at bedside, reports that he thought she had worsening symptoms after she was started on Remeron on 01/12, as she was being transitioned off of Prozac. At the time of my examination, the patient has already received several milligrams of Ativan IV, and is sedated and unable to contribute to her HPI or review of systems. Principal Diagnosis 1. Tardive Dyskinesia 2. Renal Lesion- needs nonemergent U/S chronic medical conditions: 1. Bipolar with Alison 2. Hypothyroidism 3. HLD Discharge Exam General: Resting comfortably in her hospital bed. Still having a resting tremor. Worse with intention. Still with intentional rhythmic movement of her jaw but significantly improved today. Her bradykinesia and slow response has improved greatly. Overall, tardive dyskinesia is improving Neck: No JVD. Negative hepatojugular reflex Cardiac: RRR without M/G/R Lungs: CTA without W/R/R Abdomen: Normoactive X4. Soft and nontender in all quadrants. Extremities: No peripheral clubbing cyanosis or edema Neuro: A&O X4 cranial nerves II through XII are grossly intact no focal neuro de ficits Skin: No obvious skin lesions or rashes Discharge Data Allergies Allergy/AdvReac Type Severity Reaction Status Date / Time Penicillins Allergy Mild Rash Verified 01/01/21 13:29 Consultations 01/14/21 21:30 ED Decision to Admit Stat 01/14/21 22:57 Consult Neurology Routine Assessment & Plan (1) Observed seizure-like activity: (2) Neuroleptic-induced Parkinsonism: (3) Tardive dyskinesia: (4) Tremors of nervous system: (5) Bipolar 1 disorder: (6) Psychosis: This is a very complicated patient neurologically because of the medication she requires for her mental health conditions, and the neurologic side effects these medications produce. When I saw her back in 2018 she had ataxia, cognitive issues and severe tardive dyskinesia. I felt that Seroquel gave her the tardive dyskinesia and she was showing troublesome chronic side effects from lithium. Currently, she has a bizarre resting tremor, of a coarse, irregular nature in the left greater than right upper extremities (which is the opposite of when I saw her earlier in December). She does have some very mild action tremor probably dampen with propranolol. There is severe bradykinesia, masklike face, and cogwheel rigidity of all 4 limbs. The paliperidone is likely giving her the extra pyramidal (Parkinson's) side effects. We have no other data to support a neurodegenerative disease. valbenazine deplete dopamine and will likely make the Parkinson's worse as well. Propranolol would help an action tremor but not a Parkinson's tremor. I do not see any ataxia of the limbs and she has no tardive dyskinesia of the face or tongue (that I saw 3 years ago). She is not displaying any obvious signs of an irreversible chronic lithium toxicity ( she had been on lithium since 1987 up until early 2020) . I spoke with Dr. Rodriguez regarding her medications and her psychiatric and neurologic issues. She was described as having seizure-like activity yesterday. I am not convinced that she has seizures and her EEG was unremarkable despite activity. This mor jeff she had bilateral movement activity but was talking and following commands despite the activity. This would not be consistent with seizures. The EEG was slow in general, consistent with very mild encephalopathy. therefore, overall, I doubt she is having seizures. She did have 1 elevated temperature reading yesterday but not today. Her white count shows no signs of infection. She is mildly diaphoretic with some tachycardia but the CK was normal. Overall, I am not certain she has neurolytic malignant syndrome, although an early form cannot be excluded. Although the patient is on a somewhat medium dose of fluoxetine, I am not certain we are dealing with serotonin syndrome either. Recommendations: 1. Consider MRI of the brain, with and without contrast 2. psychiatry will be changing medication. Perhaps it is best to discontinue her neuroleptic and valbenazine and see what she is like neurologically and psychiatrically at baseline 3. Gabapentin 300 milligrams 3 times a day probably was helping her tremor some. Propranolol 20 milligrams twice a day was probably helping her action tremor as well. 4. Increase activity with physical and occupational therapy. 5. if psychiatry felt that an anticonvulsant would help her mood stabilization, I would suggest lamotrigine, as this is an excellent anticonvulsant. She had been on this in the past. Avoid valproic acid as this can increase tremors. 6. I will follow. 7. If neuroleptic malignant syndrome is considered, discontinuing the offending agent (the neuroleptics ) would be The 1st step. We could consider dantrolene or bromocriptine after that, if needed Overall, I spent a total of 115 minutes with this case including review of records, direct evaluation the patient at bedside, and discussion of the case with the patient and RN at bedside, Dr. Ramirez, and Dr. rodriguez including differential diagnosis and treatment options. Consult Psychiatry Routine 60 yo female with longstanding history of bipolar disorder, presented with acute myoclonus and dystonia, ongoing confusion previously attributed to psychiatric condition, neurology doubts post ictal (and I agree), and likely side effects/delirium/mild serotonin syndrome from psychiatric polypharmacy. she has had muliple med changes and chronic psych issues that difficult to tell what is medication side effect vs true underlying Parkinson's disease. 01/15/21: (1) Bipolar 1 disorder: (2) Dystonic drug reaction: (3) Tardive dyskinesia: agree with holding her psychoactive medications. Cogentin 2 mg IM ordered and will assess response. Primary service notified of aspiration risk. Family would support restart of low dose lithium to restabilize if bipolar symptoms emerge. Will coordinate with neurology. 01/24/21--significantly improved (1) Bipolar 1 disorder: (2) Dystonic drug reaction: (3) Tardive dyskinesia: no acute indication to retry lithium would maintain Prozac low dose so less likely to be activating given hx of alison Ingrezza may need retitrated after appropriate time at 40 mg if dyskinesias persist. Ordered Studies 01/14/21 14:18 CT abd pelvis IV con only Stat IMPRESSION: 1. No bowel obstruction. No bowel wall thickening. Normal appendix. Moderate amount of stool within the colon and rectum. 2. Bladder wall thickening which could be correlated with urinalysis. 3. 2.6 cm left upper pole renal lesion. This likely reflects a cyst however measures above water attenuation. Nonemergent renal ultrasound is recommended CT angio chest PE protocol Stat IMPRESSION: 1. No evidence for pulmonary embolus with limitations as described above. 2. No new focal lung consolidations to suggest pneumonia. CT head/brain wo con Stat IMPRESSION: No acute intracranial findings 01/23/21 14:36 MR brain wo/w con Routine IMPRESSION: No significant change compared to the prior study. No acute intracranial abnormality. Hospital Course (1) Observed seizure-like activity: * Patient's seizure-like activity does not appear to be true tonic-clonic seizure as she was responsive and answered questions despite movement in all 4 limbs. * EEG on 01/15 was done during these tremors and showed generalized slowing, but no seizure activity. * Neurology on board and does not feel (given the information listed above) that patient had a seizure * Likely medication-induced tremor with concurrent long-term sequelae of her psychiatric meds (tardive dyskinesia) given recent stay in the [facility] with adjustment in her psychiatric medications * Invega has since been stopped! * Dr. Garza (neurology) and Dr. Rodriguez/ Alec(Psych) on board: recommendation to adjust psyche meds (Eunola was recommended but patient declined). Currently on: Prozac, Cogentin/Ingrezza (for TD), Gabapentin/propranolol/Flexeril (for tremor) * W/U included CT of the head, EEG, MRI, TSH-- all Unremarkable * symptoms persistent but greatly improved with introduction of Cogentin and resumption of Ingrezza. Per up-to-date literature, goal therapeutic dose of Ingrezza is 80mg/day but start at 40mg daily x 7 days (today sloan day #6) I am hopeful that with the improvement seen while in house, she will have continued improvement with continuation and uptitration of this medication * Can continue to uptitrate Cogentin if needed (max daily dose of 6 mg). * At this time, stable for D/C back to [facility] for continued IP rehab * She needs to follow-up with psychiatry as an outpatient (2) Hypothyroidism: TSH was 1.5 this admission. - Continue levothyroxine 75 mcg daily (3) Psychosis: Psychosis/bipolar 1 disorder - found that her prozac held and was restarted 01/20 (psychiatry in agreement) - psych recommended decreasing her prozac and adding lithium (for better control of her bipolar with alison); however, patient refused as she "had a bad experience with lithium in the past". Pysch agreable to trialing prozac alone - patient will need continued psych FU (4) Tardive dyskinesia: * Back on Ingrezza in addition to Cogentin. Psychiatry in agreement * Patient on 40 mg of Ingrezza. Per up-to-date recommendations, may require 80 mg to take full effect. Need to be on 40 mg X 1 week prior to up titration. (5) Bipolar 1 disorder: * See above restarting prozac * Patient declined lithium as recommended by psychiatry (6) Hyperlipidemia: - Remains on ASA & statin (7) DVT prophylaxis: Lovenox 30 mg SQ daily while in house (8) Fever: Patient developed temperature to 100.2 F while in the ED. Unclear cause; some concern regarding possible aspiration however she has been completely afebrile since. No hypoxemia or respiratory symptoms. There was some concern for neuroleptic malignant syndrome, but this seems unlikely at this point with no further fever & normal CK. - Received cefepime 2 g IV in the ED, no additional antibiotics. - No recurrence -Continue with vital signs per protocol (9) Constipation: * Resolved with fleets enema and MiraLAX (10) Renal lesion: * review of admission diagnostics: CT showing 2.6 cm left upper pole renal lesion likely reflecting a cyst; however, nonemergent ultrasound recommended (which can be facilitated as an OP) * patient is medically and HD stable for D/C * plan is for her to go back to [facility] for continuedIP rehab * will need FU with psych for adjustment in meds * Plan of care discussed with Dr. Hollis. * call son (Sachin) to update him Total Time Total Time Spent Total Time Spent (In Minutes): 60 Discharge Plan Discharge Items Patient Disposition: Transfer Inpatient Rehab Fac Reason For Visit: SEIZURE ACTIVITY Discharge Diagnosis: 1. Tardive Dyskinesia Activity: Resume your previous activity Activity Comment: patient in need of PT/OT Non-emergency contact: Primary Care Provider Call non-emergency contact if: your symptoms worsen Follow-up/Referrals: Sonja Spears DO [Primary Care Provider] - Diet: Regular Addtl Attending Provider Instructions: - STOP INVEGA as this is thought to be causing the majority of your movement issues - take the rest of your medications as outlined - Ingrezza is to be increased to 80mg a day (currently on 40mg) on 01/29/21 (son has this medication and dose and will bring to [facility]) - Follow up with Psych as an Outpatient (within 2 weeks) - it if recommended that patient have a Renal U/S (for renal lesion that was seen on CT and presumed to be a cyst but should have U/S to further identified)-- NONURGENT - follow up with House Physician withint 24-48 hours Pending Studies at Discharge: No Stand-Alone Forms: My [facility] Skilled Items Patient informed of condition?: Yes DNR: No Discharge Level of Care: Acute rehab Communicable Disease: No Discharge Prognosis: Improving Lines: None Urinary Catheter: No Medications and DC Order Prescriptions: New Ingrezza 40 mg capsule 40 mg PO DAILY Qty: 30 RF: 5 cyclobenzaprine 5 mg Tablet 5 mg PO HS Qty: 30 RF: 0 benztropine 1 mg Tablet 1 mg PO BID Qty: 60 RF: 0 gabapentin 300 mg Capsule 300 mg PO TID Qty: 90 RF: 0 vitamin E 400 unit Capsule 400 unit PO QAM Qty: 30 RF: 0 Continued levothyroxine [Synthroid] 100 mcg tablet 75 mcg PO QAM RF: 0 aspirin 81 mg Tablet 81 mg PO DAILY RF: 0 Ingrezza 40 mg capsule 80 mg HS RF: 0 lorazepam [Ativan] 0.5 mg Tablet 0.5 mg PO QID PRN (Reason: Anxiety) RF: 0 ergocalciferol (vitamin D2) 1,000 unit Capsule 1,000 unit PO WK RF: 0 propranolol 20 mg Tablet 20 mg PO BID Qty: 60 RF: 0 sennosides [Senokot] 8.6 mg Tablet 8.6 mg PO QAM Qty: 30 RF: 0 fluoxetine 40 mg capsule 40 mg PO QAM Qty: 30 RF: 0 atorvastatin [Lipitor] 20 mg tablet 20 mg PO HS Qty: 30 RF: 0 docusate sodium 100 mg capsule 100 mg PO BID Qty: 0 RF: 0 gabapentin 300 mg capsule 300 mg PO TID Qty: 90 RF: 0 Discontinued paliperidone [Invega] 3 mg Tablet Extended Release 24hr 3 mg PO TID Qty: 90 RF: 0 Discharge Orders: Discharge Order (Routine); Ordered 09/14/21 Ordered By: Wendi Haywood/Other Patient Handouts: Understanding Tardive Dyskinesia Admission Data Admit Date/Time: 01/14/21 21:39 Attending Provider: Maxx Hollis Admit Provider: Esvin Grimaldo Primary Care Provider: Sonja Spears Other Providers: Marc Ramirez ; [facility] ; Esvin Grimaldo ; Bradley Moscoso ; Susie Rodriguez ; Dr Andrew ; Ayse Orlando ; Kb Alfredo Other Interventions: Discharge Summary Assessment (RN) Last Done: 01/27/21 12:04 Supervising Physician Co-Signing Physician Notes Patient seen and examined on the day of discharge. I agree with the discharge summary by Wendi JUAREZ. I have reviewed the chart including labs, imagin g and plans for discharge. patient doing better, still with tardive dyskinesia but less intense, still very weak, will go to rehab - Tardive dyskinesia, weakness discharge to [facility] for ongoing physical therapy Coding Level of Care Code Established Pt D/C DAY MANAGEMENT >30 MINS Patient Type Established Diagnoses Observed seizure-like activity R56.9 Hypothyroidism E03.9 Psychosis F29 Tardive dyskinesia G24.01 Bipolar 1 disorder F31.9 Hyperlipidemia E78.5 DVT prophylaxis Z29.9 Fever R50.9 Fever type: unspecified Constipation K59.00 Renal lesion N28.9 Time Spent (min) 60
== END 2021-01-27 14:30 | DRG 92 ==
LOC: ED 09:49 → 2N 21:39 → SUATTDRO 21:39 → 2N 22:35 → 3N 01-27 02:58
DX: N28.9 Disorder of kidney and ureter, unspecified; Z83.3 Family history of diabetes mellitus; G24.01 Drug induced subacute dyskinesia; G21.11 Neuroleptic induced parkinsonism; Z88.0 Allergy status to penicillin; E03.9 Hypothyroidism, unspecified; L89.622 Pressure ulcer of left heel, stage 2; K59.00 Constipation, unspecified; R56.9 Unspecified convulsions; L89.612 Pressure ulcer of right heel, stage 2; R50.9 Fever, unspecified; M54.12 Radiculopathy, cervical region; E78.5 Hyperlipidemia, unspecified; K21.9 Gastro-esophageal reflux disease without esophagitis; Z79.82 Long term (current) use of aspirin; F30.10 Manic episode without psychotic symptoms, unspecified

== ENCOUNTER 2022-02-08 21:44 | Inpatient (IN) ==
[2022-02-08 22:43] LABS: Albumin Globulin Ratio 1.8 (0.9-2); Albumin Level 4.4 gm/dl (3.4-5.0); BUN Creatinine Ratio 16.8 (10-20); Bilirubin,Total 0.7 mg/dl (0.2-1.0); Calcium 9.8 mg/dl (8.5-10.1); Creatinine Clr Calc Pharmacy 46.5 ml/min; Est GFR (Non-African American) 55.2 ml/min; Globulin 2.5 gm/dl (2.5-4.0); Potassium 4.2 mmol/L (3.5-5.1); Total Protein 6.9 gm/dl (6.0-8.3)
[2022-02-08 22:59] LABS: Basophils # (auto) 0.04 K/uL (0-0.2); Basophils % (auto) 0.5 %; Eosinophils # (auto) 0.25 K/uL (0-0.50); Eosinophils % (auto) 3.2 %; Hematocrit (blood only) 39.8 % (34.1-44.9); Hemoglobin 13.3 g/dl (12.0-16.0); Immature Granulocytes # (auto) 0.03 K/uL (0.00-0.02); Immature Granulocytes % (auto) 0.4 %; Lymphocytes # (auto) 1.57 K/uL (1.2-3.4); Lymphocytes % (auto) 20.4 %; Mean Corpuscular Hemoglobin 30.3 pg (25.0-34.0); Mean Corpuscular Hgb Conc 33.4 g/dL (32.0-36.0); Mean Corpuscular Volume 90.7 fL (80.0-100.0); Mean Platelet Volume 10.5 fL (9.4-12.3); Monocytes # (auto) 0.53 K/uL (0.24-0.82); Monocytes % (auto) 6.9 %; Neutrophils # (auto) 5.29 K/uL (1.4-6.5); Neutrophils % (auto) 68.6 %; Platelet Count 165 K/uL (130-400); RDW Coefficient of Variation 12.3 % (11.5-14.5); RDW Standard Deviation 40.9 fL (36.4-46.3); Red Blood Count 4.39 M/uL (3.93-5.22); White Blood Count 7.71 K/ul (4.8-10.8)
[2022-02-08 23:24] LABS: Acetaminophen < 3 ug/ml (10-30); Salicylate < 3.0 mg/dl (3.0-30)
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
[2022-02-09 03:05] LABS: Amphetamines+Metham, Urine Neg (Neg); Barbiturates, Urine Neg (Neg); Benzodiazepine, Urine Neg (Neg); Cocaine, Urine Neg (Neg); MDMA (Ecstacy), Urine Neg (Neg); Methadone, Urine Neg (Neg); Opiate, Urine Neg (Neg); Phencyclidine, Urine Neg (Neg)
[2022-02-09 03:14] LABS: Appearance Urine Slightly Cloudy (Clear); Bilirubin Urine Negative (Negative); Blood Urine Negative (Negative); Color Urine Yellow; Glucose Urine UA Negative (Negative); Ketones Urine Negative (Negative); Leukocyte Esterase Urine 2+ (Negative); Nitrite Urine Positive (Negative); Protein Urine Negative (Negative); Specific Gravity Urine 1.015 (1.000-1.030); Urobilinogen Urine Negative (Negative); pH Urine 6.5 (4.5-7.5)
[2022-02-09 03:42] LABS: Bacteria Urine 4+ (Negative); RBC Urine 0-4 /hpf (0-4); WBC Urine >30 /hpf (0-5)
[2022-02-09] MEDS ORDERED: NITROFURANTOIN MONOHYDRATE 100 MG CAP PO STA (11:44)
[2022-02-09] MEDS ORDERED: ALUMINUM/MAGNESIUM SUSP 30 ML UDC PO PRN (13:54)
[2022-02-09] MEDS ORDERED: SODIUM CHLORIDE 0.65% NA SOLN 45 ML (OCEAN) PRN (13:54)
[2022-02-09] MEDS ORDERED: ACETAMINOPHEN 325 MG TAB PO PRN (13:54)
[2022-02-09] MEDS ORDERED: BISMUTH SUBSALICYLATE LIQD 236 ML PO PRN (13:54)
[2022-02-09] MEDS ORDERED: MAGNESIUM HYDROXIDE SUSP 30 ML UDC PO PRN (13:54)
--- NOTE | 2022-02-09 16:23 | History & Physical ---
Date of Service February 09, 2022 Impression / Recommendations Impression 61 yo female with hx of bipolar disorder, longstanding response to lithium, more recent issues with tolerability of antipsychotic medications, benefits from Ingrezza for hx of TD. Has had periods of confusion that are not necessarily consistent with her previous presentations of alison and a UTI was identified. She was deemed unable to care for self at home and 302 completed in the ED. (1) Bipolar 1 disorder: (2) Tardive dyskinesia: Plan The patient was admitted to the [facility] ([facility] mental health unit) on q15 min checks (behavioral with suicide precautions) for safety. The patient will participate in group, recreational, and milieu therapies and will be offered additional individual and family sessions as clinically appropriate. MNPR given age/hx of paranoia/TD/communication difficulties. Patient does not currently appear manic but will hold Prozac, particularly as I am recommending that she hold Fanapt pending review of records from [facility]. Macrobid course as recommended by ED. Inventory Assets Strengths: help seeking, supportive family Needs: PCP f/u UTI, ongoing support around chronic mental illness Suicide Risk Level Suicide Risk Level: Low (q15 min observation checks) Risk Factors Assessment : Yes Previous Psychiatric Hospitalization: Yes Protective Factors Assessment : Yes Supportive Family: Yes Psychiatric History Identifying Data ALVARO FRAIRE is a 61-year-old F who currently lives in with her in [place], has a history of bipolar I disorder and multiple inpatient stays, and was admitted on 02/09/22 12:15 on a 302 involuntary commitment for confusion. Chief Complaint "I've been good, I'm sorry." History of Present Illness Patient presented to ED with family. Son was reportedly concerned for possible manic episode as per ED CM note: met with pt bedside to complete brief MH and suicide risk assessments. Pts son in the room and provides nearly all of the history. States pt has been decompensating for the past couple of weeks and was significantly worse last night when pts called him to watch her today. Sachin states that when he arrived, pt was attempting to feed the cows with household garbage rather than livestock feed. Pt has also been seeing a shadow that she states is a woman. Most recent inpatient stay at [facility] in summer. Sachin states pt sees [facility] for PCP and med management and was recently moved from [facility], which did not work, to [facility] approximately 4 days ago. Pt has had a recent increase in falls and currently has an unsteady gate but typically does not require assistance to ambulate. Pts son states pt did not sleep at all last night but did sleep for approximately 2 hours today. Pt has had her nighttime meds already tonight and denies being tired. Pt is oriented to person and place but is unable to state the day or date. The patient is known to me from multiple hospitalizations, some on the medical floor for dystonia, difficulty with ADLs (eating, etc.) due to TD, etc. She is exquisitely sensitive to antipsychotic medications. Staff contacted her son to confirm medication list as lithium wasn't listed despite recent rx and she reported at times not taking them correctly. She was idenitifed as having a UTI which is likely a contributing factor but was felt to be medically stable for psych as was willing to take PO antibiotics (initially resisted but dose was confirmed). She currently denies hallucinations and slept overnight in ED. Past Psychiatric History Current Psychiatric Diagnosis: Bipolar Previous Psych Admissions: Outpatient Services: Tyra JUAREZ at [facility] for medication management. PCP is Dr. Spears Previous Psych Admissions: [facility] 06/2020, 08/2018 for alison, 02/2014 for mixed episode, 09/2016 for psychotic alison ISHA Parra 04/2016 [facility] at age 16 and summer 2020. History of Previous Suicide Attempt: No Past Medication Trials: [place] -stable on it for 25 years Risperidone Lurasidone Haloperidol Oxcarbazepine Quetiapine Restoril Ativan Zolpidem, Vryalar, FAnapt, Caplyta, Risperdal, Invega Allergies Allergy/AdvReac Type Severity Reaction Status Date / Time Penicillins Allergy Mild Rash Verified 12/15/21 10:25 Home Medications Medication Instructions Recorded Confirmed Type lorazepam 0.5 mg tablet (Ativan) 0.5 mg PO QID PRN Anxiety 01/01/21 02/09/22 History atorvastatin 20 mg tablet (Lipitor) 20 mg PO HS #30 tabs 01/09/21 02/09/22 Rx benztropine 1 mg tablet 1 mg PO BID #60 tabs 01/27/21 02/09/22 Rx cyclobenzaprine 5 mg tablet 5 mg PO HS #30 tabs 01/27/21 02/09/22 Rx valbenazine 60 mg capsule 60 mg PO DAILY #30 caps 09/07/21 02/09/22 Rx (Ingrezza) docusate sodium 100 mg capsule 100 mg PO HS 02/08/22 02/09/22 History (Colace) fluoxetine 20 mg capsule (Prozac) 20 mg PO DAILY 02/08/22 02/09/22 History iloperidone 6 mg tablet (Fanapt) 6 mg PO BID 02/08/22 02/09/22 History gabapentin 400 mg capsule 400 mg PO BID 02/09/22 02/09/22 History (Neurontin) lithium carbonate 150 mg capsule 150 mg PO DAILY 02/09/22 02/09/22 History Family History Family History of: Doesn't Know Alcohol History Hx of Alcohol Use Over the Past 12 Months: No AUDIT Total Score: 0 Smoking Use Have You Smoked or Used Tobacco Products in the Last 30 Days: No Smoking Status: Never smoker Substance History Hx of Over the Counter Med Misuse Over the Past 12 Months: No Hx of Organic Substance Use Over the Past 12 Months: No Hx of Illegal Substances/Street Drug Use Over Past 12 Months: No Personal History Living Arrangements: Home Highest Grade Completed: High School Graduate Marital Status: Number Of Children: son involved in care Beliefs That Will Affect Care: None Current Legal Problems: No Hx Traumatic Life Events: Yes Patient History Medical History (Updated 02/09/22 @ 16:32 by Susie Rodriguez MD) Bipolar 1 disorder Chronic diarrhea of unknown origin History of anesthesia reaction difficulty waking Hyperlipidemia Hypothyroidism Psychosis Tardive dyskinesia UTI (urinary tract infection) Surgical History History of colonoscopy with polypectomy History of conization of cervix History of cervical conization by laser History of dilation and curettage History of foot surgery x2--right--no hardware History of hysteroscopy History of right oophorectomy History of tooth extraction all upper teeth History of tubal ligation Family History Father Type 2 diabetes mellitus Family hx colonic polyps Brother Type 2 diabetes mellitus Sister Parathyroid disorder Brother Type 2 diabetes mellitus Other No family history of adverse response to anesthesia Social History Smoking Status: Never smoker Second Hand Exposure: No; Hx Alcohol Use: No Hx Substance Use: No Preferred Language: Welsh Communication Ability: Effective Tip Inserter Required: No Beliefs That Will Affect Care: None marital status: Current Living Situation: Spouse current occupational status: employed Feels Safe at Home: Yes Assistive Devices: None Review of Systems Review of Systems: All systems reviewed & are unremarkable except as noted in HPI & below Physical Exam Psychiatric: Orientation: alert, oriented to person and oriented to place Apperance: appropriately dressed and appropriately groomed Eye Contact: good eye contact Motor Behavior: + abnormal motor movements (oral dyskinesia (minimal)) Speech: + abnormal rate/rhythm/volume of speech Affect: euthymic affect Mood: no depressed mood Thought Process: + circumstantial thought process Thought Content: reality based without delusions Suicidal Thoughts: denies suicidal thoughts Homicidal Thoughts: denies homicidal thoughts Hallucinations: no auditory hallucinations and no visual hallucinations Cognition: attention grossly intact and language grossly intact Estimated Intelligence: consistent with education level Insight: + limited insight Judgement: + limited judgement Vital Signs (Past 24 Hours): Last Vital Signs Temp 36.9 C 02/09/22 14:32 Pulse 85 02/09/22 14:32 Resp 16 02/09/22 14:32 BP 133/85 02/09/22 14:32 Pulse Ox 98 02/09/22 09:38 O2 Del Method 02/09/22 12:24 Exam Statement: A physical exam was performed in the ED by Dr. Ruffin for the purposes of medical clearance. I accept that physical as correct and adequate for the purposes of the inpatient physical exam. Results & Data ([facility]) Laboratory Results Laboratory Results - last 24 hr 02/08/22 02/08/22 02/08/22 22:11 22:11 22:11 WBC RBC Hgb Hct MCV MCH MCHC RDW Std Deviation RDW Coeff of Zakiya Plt Count MPV Immature Gran % (Auto) Neut % (Auto) Lymph % (Auto) Sunflower % (Auto) Eos % (Auto) Baso % (Auto) Neut # (Auto) Lymph # (Auto) Sunflower # (Auto) Eos # (Auto) Baso # (Auto) Immature Gran # (Auto) Sodium 140 Potassium 4.2 Chloride 108 H Carbon Dioxide 25 Anion Gap 7 BUN 18 Creatinine 1.07 Est Cr Clr Drug Dosing 46.5 Est GFR ( Amer) 64.0 Est GFR (Non-Af Amer) 55.2 BUN/Creatinine Ratio 16.8 Glucose 96 Calcium 9.8 Total Bilirubin 0.7 AST 18 ALT 12 Alkaline Phosphatase 77 Total Protein 6.9 Albumin 4.4 Globulin 2.5 Albumin/Globulin Ratio 1.8 TSH Urine Color Urine Appearance Urine pH Ur Specific [place] Urine Protein Urine Glucose (UA) Urine Ketones Urine Blood Urine Nitrite Urine Bilirubin Urine Urobilinogen Ur Leukocyte Esterase Urine RBC Urine WBC Ur Epithelial Cells Urine Bacteria Salicylates Urine Opiates Screen Ur Methadone, Qual Acetaminophen Urine Barbiturates Ur Phencyclidine (PCP) U Amphetamin/Meth Scrn MDMA (Ecstasy) Screen U Benzodiazepines Scrn [place] Ur Cocaine Metabolite U Marijuana (THC) Screen Ethyl Alcohol mg/dL < 10.0 SARS-CoV-2, RNA, NAAT NEGATIVE 02/08/22 02/08/22 02/08/22 22:28 22:28 22:28 WBC 7.71 RBC 4.39 Hgb 13.3 Hct 39.8 MCV 90.7 MCH 30.3 MCHC 33.4 RDW Std Deviation 40.9 RDW Coeff of Zakiya 12.3 Plt Count 165 MPV 10.5 Immature Gran % (Auto) 0.4 Neut % (Auto) 68.6 Lymph % (Auto) 20.4 Sunflower % (Auto) 6.9 Eos % (Auto) 3.2 Baso % (Auto) 0.5 Neut # (Auto) 5.29 Lymph # (Auto) 1.57 Sunflower # (Auto) 0.53 Eos # (Auto) 0.25 Baso # (Auto) 0.04 Immature Gran # (Auto) 0.03 H Sodium Potassium Chloride Carbon Dioxide Anion Gap BUN Creatinine Est Cr Clr Drug Dosing Est GFR ( Amer) Est GFR (Non-Af Amer) BUN/Creatinine Ratio Glucose Calcium Total Bilirubin AST ALT Alkaline Phosphatase Total Protein Albumin Globulin Albumin/Globulin Ratio TSH 0.159 L Urine Color Urine Appearance Urine pH Ur Specific [place] Urine Protein Urine Glucose (UA) Urine Ketones Urine Blood Urine Nitrite Urine Bilirubin Urine Urobilinogen Ur Leukocyte Esterase Urine RBC Urine WBC Ur Epithelial Cells Urine Bacteria Salicylates < 3.0 L Urine Opiates Screen Ur Methadone, Qual Acetaminophen < 3 L Urine Barbiturates Ur Phencyclidine (PCP) U Amphetamin/Meth Scrn MDMA (Ecstasy) Screen U Benzodiazepines Scrn [place] Ur Cocaine Metabolite U Marijuana (THC) Screen Ethyl Alcohol mg/dL SARS-CoV-2, RNA, NAAT 02/08/22 02/09/22 02/09/22 22:28 02:00 02:00 WBC RBC Hgb Hct MCV MCH MCHC RDW Std Deviation RDW Coeff of Zakiya Plt Count MPV Immature Gran % (Auto) Neut % (Auto) Lymph % (Auto) Sunflower % (Auto) Eos % (Auto) Baso % (Auto) Neut # (Auto) Lymph # (Auto) Sunflower # (Auto) Eos # (Auto) Baso # (Auto) Immature Gran # (Auto) Sodium Potassium Chloride Carbon Dioxide Anion Gap BUN Creatinine Est Cr Clr Drug Dosing Est GFR ( Amer) Est GFR (Non-Af Amer) BUN/Creatinine Ratio Glucose Calcium Total Bilirubin AST ALT Alkaline Phosphatase Total Protein Albumin Globulin Albumin/Globulin Ratio TSH Urine Color Yellow Urine Appearance Slightly Cloudy Urine pH 6.5 Ur Specific [place] 1.015 Urine Protein Negative Urine Glucose (UA) Negative Urine Ketones Negative Urine Blood Negative Urine Nitrite Positive A Urine Bilirubin Negative Urine Urobilinogen Negative Ur Leukocyte Esterase 2+ H Urine RBC 0-4 Urine WBC >30 H Ur Epithelial Cells 5-10 H Urine Bacteria 4+ H Salicylates Urine Opiates Screen Neg Ur Methadone, Qual Neg Acetaminophen Urine Barbiturates Neg Ur Phencyclidine (PCP) Neg U Amphetamin/Meth Scrn Neg MDMA (Ecstasy) Screen Neg U Benzodiazepines Scrn Neg [place] 0.4 L Ur Cocaine Metabolite Neg U Marijuana (THC) Screen Neg Ethyl Alcohol mg/dL SARS-CoV-2, RNA, NAAT Current Inpatient Medications Current Inpatient Medications: Current Inpatient Medications Acetaminophen (Acetaminophen 325 Mg Tab) 650 mg PO Q4H PRN PRN Reason: Headache or Minor Fever Stop: 03/11/22 13:53 Al Hydrox/Mg Hydrox/Simethicone (Aluminum/Magnesium Susp 30 Ml Udc) 30 ml PO Q4H PRN PRN Reason: GI Upset Stop: 03/11/22 13:53 Atorvastatin Calcium (Atorvastatin 20 Mg Tab) 20 mg PO HS DONNIE Stop: 03/11/22 20:59 Bismuth Subsalicylate (Bismuth Subsalicylate Liqd 236 Ml) 15 ml PO PRN PRN PRN Reason: Loose Stool Stop: 03/11/22 13:53 Cyclobenzaprine HCl (Cyclobenzaprine Hcl 5 Mg Tab) 5 mg PO HS DONNIE Stop: 03/11/22 20:59 Docusate Sodium (Docusate Sodium 100 Mg Cap) 100 mg PO HS DONNIE Stop: 03/11/22 20:59 Gabapentin (Gabapentin 400 Mg Cap) 400 mg PO BID DONNIE Stop: 03/11/22 20:59 [place] Carbonate ([place] Carbonate 300 Mg Tab) 150 mg PO DAILY DONNIE Stop: 03/12/22 08:59 Lorazepam (Lorazepam 0.5 Mg Tab) 0.5 mg PO QID PRN PRN Reason: Anxiety Stop: 03/11/22 13:51 Magnesium Hydroxide (Magnesium Hydroxide Susp 30 Ml Udc) 30 ml PO DAILY PRN PRN Reason: Constipation Stop: 03/11/22 13:53 Nitrofurantoin Macrocrystals (Nitrofurantoin Monohydrate 100 Mg Cap) 100 mg PO BID DONNIE Stop: 02/13/22 21:01 Sodium Chloride (Sodium Chloride 0.65% Na Soln 45 Ml ([place])) 1 - 2 sprays NA PRN PRN PRN Reason: Nasal Dryness/Congestion Stop: 03/11/22 13:53 Valbenazine (Valbenazine Tosylate 60 Mg Capsule) 60 mg PO HS DONNIE Stop: 03/11/22 21:59
[2022-02-09] MEDS: LORazepam 0.5 MG TAB PO PRN (18:15)
[2022-02-09] MEDS: ATORVASTATIN 20 MG TAB PO SCH (21:21)
[2022-02-09] MEDS: CYCLOBENZAPRINE HCL 5 MG TAB PO SCH (21:21)
[2022-02-09] MEDS: GABAPENTIN 400 MG CAP PO SCH (21:21)
[2022-02-09] MEDS: DOCUSATE SODIUM 100 MG CAP PO SCH (21:22)
[2022-02-09] MEDS: NITROFURANTOIN MONOHYDRATE 100 MG CAP PO SCH (21:22)
[2022-02-09] MEDS: VALBENAZINE TOSYLATE 60 MG PO SCH (21:22)
[2022-02-10] MEDS: GABAPENTIN 400 MG CAP PO SCH ×2 (08:57→16:51)
[2022-02-10] MEDS: NITROFURANTOIN MONOHYDRATE 100 MG CAP PO SCH ×2 (08:57→20:20)
[2022-02-10] MEDS: LITHIUM CARBONATE 300 MG TAB PO SCH (10:00)
--- NOTE | 2022-02-10 15:29 | Psychiatric Progress Note ---
Date of Service February 10, 2022 Impression / Recommendations Impression 61 yo female with hx of bipolar disorder, longstanding response to lithium, more recent issues with tolerability of antipsychotic medications, benefits from Ingrezza for hx of TD. Has had periods of confusion that are not necessarily consistent with her previous presentations of alison and a UTI was identified. She was deemed unable to care for self at home and 302 completed in the ED. 02/10/22: intermittent confusion, does not seem manic (1) Bipolar 1 disorder: (2) Tardive dyskinesia: Plan 02/10/22: The patient has been redirectible, records reviewed. Has been on clozaril 100 mg briefly in past. No trial of Depakote listed. 02/09/22: The patient [facility] ([facility]) on q15 min checks (behavioral with suicide precautions) for safety. The patient will participate in group, recreational, and milieu therapies and will be offered additional individual and family sessions as clinically appropriate. MNPR given age/hx of paranoia/TD/communication difficulties. Patient does not currently appear manic but will hold Prozac, particularly as I am recommending that she hold Fanapt pending review of records from [place]. Macrobid course as recommended by ED. Inventory Assets Strengths: help seeking, supportive family Needs: PCP f/u UTI, ongoing support around chronic mental illness Suicide Risk Level Suicide Risk Level: Low (q15 min observation checks) Risk Factors Assessment : Yes Do You Have Access To A Gun?: No Previous Psychiatric Hospitalization: Yes Protective Factors Assessment : Yes Supportive Family: Yes Interval History Identifying Information ALVARO FRAIRE is a 61-year-old F who currently lives in with her in [place], has a history of bipolar I disorder and multiple inpatient stays, and was admitted on 02/09/22 12:15 on a 302 involuntary commitment for confusion. Chief Complaint "I'm cold.", wanting to rest with blanket Review of Systems Sleep Information Total Hours of Sleep: 6 Meal Information Percent Meal Consumed - Breakfast: 25 Percent Meal Consumed - Lunch: 0 Percent Meal Consumed - Dinner: 100 Nutrition Comment: patient sleeping, safe tray made for patient in fridge. Subjective Subjective Patient was seen & assessed and interval progress reviewed with treatment team. Patient has been pleasant in interactions, was placed on elopement precautions last pm for some wandering. Received Ativan prn. Staff note his morning she entered the day room with a blanket around her waist and was not wearing any pants but was easily redirected. She makes non sensical statements at times. Physical Exam Psychiatric Orientation: alert, oriented to person and oriented to place Apperance: appropriately dressed and appropriately groomed Eye Contact: good eye contact Motor Behavior: + abnormal motor movements (oral dyskinesia (minimal)) Speech: + abnormal rate/rhythm/volume of speech Affect: euthymic affect Mood: no depressed mood Thought Process: + circumstantial thought process Thought Content: reality based without delusions Suicidal Thoughts: denies suicidal thoughts Homicidal Thoughts: denies homicidal thoughts Hallucinations: no auditory hallucinations and no visual hallucinations Cognition: attention grossly intact and language grossly intact Estimated Intelligence: consistent with education level Insight: + limited insight Judgement: + limited judgement Vital Signs (Past 24 Hours) Last Vital Signs Temp 36.6 C 02/10/22 06:37 Pulse 99 H 02/10/22 06:38 Resp 16 02/10/22 06:37 BP 134/78 02/10/22 06:38 Pulse Ox 98 02/09/22 09:38 O2 Del Method 02/09/22 12:24 Results & Data ([facility]) Current Inpatient Medications Current Inpatient Medications: Current Inpatient Medications Acetaminophen (Acetaminophen 325 Mg Tab) 650 mg PO Q4H PRN PRN Reason: Headache or Minor Fever Stop: 03/11/22 13:53 Al Hydrox/Mg Hydrox/Simethicone (Aluminum/Magnesium Susp 30 Ml Udc) 30 ml PO Q4H PRN PRN Reason: GI Upset Stop: 03/11/22 13:53 Atorvastatin Calcium (Atorvastatin 20 Mg Tab) 20 mg PO HS DONNIE Stop: 03/11/22 20:59 Last Admin: 02/09/22 21:21 Dose: 20 mg Bismuth Subsalicylate (Bismuth Subsalicylate Liqd 236 Ml) 15 ml PO PRN PRN PRN Reason: Loose Stool Stop: 03/11/22 13:53 Cyclobenzaprine HCl (Cyclobenzaprine Hcl 5 Mg Tab) 5 mg PO HS DONNIE Stop: 03/11/22 20:59 Last Admin: 02/09/22 21:21 Dose: 5 mg Docusate Sodium (Docusate Sodium 100 Mg Cap) 100 mg PO HS DONNIE Stop: 03/11/22 20:59 Last Admin: 02/09/22 21:22 Dose: 100 mg Gabapentin (Gabapentin 400 Mg Cap) 400 mg PO BID DONNIE Stop: 03/11/22 20:59 Last Admin: 02/10/22 08:57 Dose: 400 mg [place] Carbonate ([place] Carbonate 300 Mg Tab) 150 mg PO DAILY DONNIE Stop: 03/12/22 08:59 Last Admin: 02/10/22 10:00 Dose: 150 mg Lorazepam (Lorazepam 0.5 Mg Tab) 0.5 mg PO QID PRN PRN Reason: Anxiety Stop: 03/11/22 13:51 Last Admin: 02/09/22 18:15 Dose: 0.5 mg Magnesium Hydroxide (Magnesium Hydroxide Susp 30 Ml Udc) 30 ml PO DAILY PRN PRN Reason: Constipation Stop: 03/11/22 13:53 Nitrofurantoin Macrocrystals (Nitrofurantoin Monohydrate 100 Mg Cap) 100 mg PO BID DONNIE Stop: 02/13/22 21:01 Last Admin: 02/10/22 08:57 Dose: 100 mg Sodium Chloride (Sodium Chloride 0.65% Na Soln 45 Ml ([place])) 1 - 2 sprays NA PRN PRN PRN Reason: Nasal Dryness/Congestion Stop: 03/11/22 13:53 Valbenazine (Valbenazine Tosylate 60 Mg Capsule) 60 mg PO HS DONNIE Stop: 03/11/22 21:59 Last Admin: 02/09/22 21:22 Dose: 60 mg Mental Health & Subst Abuse Tx Psychiatrist Name of Psychiatrist: Cruzito Higgins Psychiatrist's Date of Appointment with Psychiatrist: 03/01/22 Time of Appointment with Psychiatrist: 9am Psychiatric Appointment Comment: [address] [place], [place] Therapist Name of Therapist: pt. unsure College Advisor Name of College Advisor: Joanne Zurita Post Discharge Appointments Primary Care Physician Name Of Family Doctor: Cruzito Spears Primary Care Date of Appointment with PCP: 03/03/22 Time of Appointment with PCP: 9am Provider Appointment Comment: [address] [place], [place] Contact Information Discharge / [phone] Discharge Address: [address] [place] [id number]
[2022-02-10] MEDS: CYCLOBENZAPRINE HCL 5 MG TAB PO SCH (20:20)
[2022-02-10] MEDS: VALBENAZINE TOSYLATE 60 MG PO SCH (20:21)
[2022-02-10] MEDS: DOCUSATE SODIUM 100 MG CAP PO SCH (20:21)
[2022-02-10] MEDS: ATORVASTATIN 20 MG TAB PO SCH (20:21)
[2022-02-11] MEDS: GABAPENTIN 400 MG CAP PO SCH ×2 (09:46→17:18)
[2022-02-11] MEDS: NITROFURANTOIN MONOHYDRATE 100 MG CAP PO SCH ×2 (09:46→20:48)
[2022-02-11] MEDS: LITHIUM CARBONATE 300 MG TAB PO SCH (09:46)
--- NOTE | 2022-02-11 13:05 | Psychiatric Progress Note ---
Date of Service February 11, 2022 Impression / Recommendations Impression 61 yo female with hx of bipolar disorder, longstanding response to lithium, more recent issues with tolerability of antipsychotic medications, benefits from Ingrezza for hx of TD. Has had periods of confusion that are not necessarily consistent with her previous presentations of alison and a UTI was identified. She was deemed unable to care for self at home and 302 completed in the ED. 02/11/22: improving, elopement precautions have been d/c. MNPR mainly due to age/ID status at this point as boundaries improved. (1) Bipolar 1 disorder: (2) Tardive dyskinesia: Plan 02/11/22: continue current medication and treatment plan. The patient is improving. 02/10/22: The patient has been redirectible, records reviewed. Has been on clozaril 100 mg briefly in past. No trial of Depakote listed. 02/09/22: The patient was admitted to the [facility] ([facility] mental health unit) on q15 min checks (behavioral with suicide precautions) for safety. The patient will participate in group, recreational, and milieu therapies and will be offered additional individual and family sessions as clinically appropriate. MNPR given age/hx of paranoia/TD/communication difficulties. Patient does not currently appear manic but will hold Prozac, particularly as I am recommending that she hold Fanapt pending review of records from [place]. Macrobid course as recommended by ED. Inventory Assets Strengths: help seeking, supportive family Needs: PCP f/u UTI, ongoing support around chronic mental illness Suicide Risk Level Suicide Risk Level: Low (q15 min observation checks) Risk Factors Assessment : Yes Do You Have Access To A Gun?: No Previous Psychiatric Hospitalization: Yes Protective Factors Assessment : Yes Supportive Family: Yes Interval History Identifying Information ALVARO FRAIRE is a 61-year-old F who currently lives in with her in [place], has a history of bipolar I disorder and multiple inpatient stays, and was admitted on 02/09/22 12:15 on a 302 involuntary commitment for confusion. Chief Complaint "I think I'm doing good." Review of Systems Sleep Information Total Hours of Sleep: 8 Sleep Comments: also slept evening shift for 6 hours. Meal Information Percent Meal Consumed - Breakfast: 80 Percent Meal Consumed - Lunch: 0 Percent Meal Consumed - Dinner: 100 Subjective Subjective Patient was seen & assessed and interval progress reviewed with social work and nursing. The patient's confusion continues to improve. She slept alot yesterday and there is no evidence of alison. She is eating well and wants to take a shower. Has meeting with CM here today. Physical Exam Psychiatric Orientation: alert, oriented to person and oriented to place Apperance: appropriately dressed and appropriately groomed Eye Contact: good eye contact Motor Behavior: + abnormal motor movements (oral dyskinesia (minimal)) Speech: + abnormal rate/rhythm/volume of speech Affect: euthymic affect Mood: no depressed mood Thought Process: + circumstantial thought process Thought Content: reality based without delusions Suicidal Thoughts: denies suicidal thoughts Homicidal Thoughts: denies homicidal thoughts Hallucinations: no auditory hallucinations and no visual hallucinations Cognition: attention grossly intact and language grossly intact Estimated Intelligence: consistent with education level Insight: + limited insight Judgement: + limited judgement Vital Signs (Past 24 Hours) Last Vital Signs Temp 36.9 C 02/11/22 06:40 Pulse 77 02/11/22 06:40 Resp 16 02/11/22 06:40 BP 96/65 L 02/11/22 06:40 Pulse Ox 98 02/09/22 09:38 O2 Del Method 02/09/22 12:24 Results & Data ([facility]) Current Inpatient Medications Current Inpatient Medications: Current Inpatient Medications Acetaminophen (Acetaminophen 325 Mg Tab) 650 mg PO Q4H PRN PRN Reason: Headache or Minor Fever Stop: 03/11/22 13:53 Al Hydrox/Mg Hydrox/Simethicone (Aluminum/Magnesium Susp 30 Ml Udc) 30 ml PO Q4H PRN PRN Reason: GI Upset Stop: 03/11/22 13:53 Atorvastatin Calcium (Atorvastatin 20 Mg Tab) 20 mg PO HS DONNIE Stop: 03/11/22 20:59 Last Admin: 02/10/22 20:21 Dose: 20 mg Bismuth Subsalicylate (Bismuth Subsalicylate Liqd 236 Ml) 15 ml PO PRN PRN PRN Reason: Loose Stool Stop: 03/11/22 13:53 Cyclobenzaprine HCl (Cyclobenzaprine Hcl 5 Mg Tab) 5 mg PO HS DONNIE Stop: 03/11/22 20:59 Last Admin: 02/10/22 20:20 Dose: 5 mg Docusate Sodium (Docusate Sodium 100 Mg Cap) 100 mg PO HS DONNIE Stop: 03/11/22 20:59 Last Admin: 02/10/22 20:21 Dose: 100 mg Gabapentin (Gabapentin 400 Mg Cap) 400 mg PO BIDM DONNIE Stop: 03/12/22 17:44 Last Admin: 02/11/22 09:46 Dose: 400 mg Boissevain Carbonate (Boissevain Carbonate 300 Mg Tab) 150 mg PO DAILY DONNIE Stop: 03/12/22 08:59 Last Admin: 02/11/22 09:46 Dose: 150 mg Lorazepam (Lorazepam 0.5 Mg Tab) 0.5 mg PO QID PRN PRN Reason: Anxiety Stop: 03/11/22 13:51 Last Admin: 02/09/22 18:15 Dose: 0.5 mg Magnesium Hydroxide (Magnesium Hydroxide Susp 30 Ml Udc) 30 ml PO DAILY PRN PRN Reason: Constipation Stop: 03/11/22 13:53 Nitrofurantoin Macrocrystals (Nitrofurantoin Monohydrate 100 Mg Cap) 100 mg PO BID DONNIE Stop: 02/13/22 21:01 Last Admin: 02/11/22 09:46 Dose: 100 mg Sodium Chloride (Sodium Chloride 0.65% Na Soln 45 Ml ([place])) 1 - 2 sprays NA PRN PRN PRN Reason: Nasal Dryness/Congestion Stop: 03/11/22 13:53 Valbenazine (Valbenazine Tosylate 60 Mg Capsule) 60 mg PO HS DONNIE Stop: 03/11/22 21:59 Last Admin: 02/10/22 20:21 Dose: 60 mg Mental Health & Subst Abuse Tx Psychiatrist Name of Psychiatrist: Cruzito Higgins Psychiatrist's Date of Appointment with Psychiatrist: 03/01/22 Time of Appointment with Psychiatrist: 9am Psychiatric Appointment Comment: [address] [place], [place] Therapist Name of Therapist: pt. unsure Mule Driver Name of Mule Driver: Joanne Zurita Post Discharge Appointments Primary Care Physician Name Of Family Doctor: Cruzito Spears Primary Care Date of Appointment with PCP: 03/03/22 Time of Appointment with PCP: 9am Provider Appointment Comment: [address] [place], [place] Contact Information Discharge / [phone] Discharge [address]: [address] [place] [address]. LARRY Page [phone]
[2022-02-11] MEDS: ATORVASTATIN 20 MG TAB PO SCH (20:48)
[2022-02-11] MEDS: CYCLOBENZAPRINE HCL 5 MG TAB PO SCH (20:49)
[2022-02-11] MEDS: DOCUSATE SODIUM 100 MG CAP PO SCH (20:49)
[2022-02-11] MEDS: VALBENAZINE TOSYLATE 60 MG PO SCH (20:49)
[2022-02-11] MEDS: LORazepam 0.5 MG TAB PO PRN (22:45)
[2022-02-12] MEDS: LITHIUM CARBONATE 300 MG TAB PO SCH (09:01)
[2022-02-12] MEDS: NITROFURANTOIN MONOHYDRATE 100 MG CAP PO SCH (09:01)
[2022-02-12] MEDS: GABAPENTIN 400 MG CAP PO SCH (09:02)
--- NOTE | 2022-02-12 09:55 | Psychiatric Progress Note ---
Date of Service February 12, 2022 Impression / Recommendations Impression 61 yo female with hx of bipolar disorder, longstanding response to lithium, more recent issues with tolerability of antipsychotic medications, benefits from Ingrezza for hx of TD. Has had periods of confusion that are not necessarily consistent with her previous presentations of alison and a UTI was identified. She was deemed unable to care for self at home and 302 completed in the ED. 02/11/22: improving, elopement precautions have been d/c. MNPR mainly due to age/ID status at this point as boundaries improved. (1) Bipolar 1 disorder: (2) Tardive dyskinesia: Plan 02/11/22: continue current medication and treatment plan. The patient is improving. 02/10/22: The patient has been redirectible, records reviewed. Has been on clozaril 100 mg briefly in past. No trial of Depakote listed. 02/09/22: The patient was admitted to the [facility] ([facility]) on q15 min checks (behavioral with suicide precautions) for safety. The patient will participate in group, recreational, and milieu therapies and will be offered additional individual and family sessions as clinically appropriate. MNPR given age/hx of paranoia/TD/communication difficulties. Patient does not currently appear manic but will hold Prozac, particularly as I am recommending that she hold Fanapt pending review of records from [place]. Macrobid course as recommended by ED. Inventory Assets Strengths: help seeking, supportive family Needs: PCP f/u UTI, ongoing support around chronic mental illness Suicide Risk Level Suicide Risk Level: Low (q15 min observation checks) Risk Factors Assessment : Yes Do You Have Access To A Gun?: No Previous Psychiatric Hospitalization: Yes Protective Factors Assessment : Yes Supportive Family: Yes Interval History Identifying Information ALVARO FRAIRE is a 61-year-old F who currently lives in with her in [place], has a history of bipolar I disorder and multiple inpatient stays, and was admitted on 02/09/22 12:15 on a 302 involuntary commitment for confusion. Chief Complaint "[]". Review of Systems Sleep Information Total Hours of Sleep: 5 Sleep Comments: also slept evening shift for 6 hours. Meal Information Percent Meal Consumed - Breakfast: 80 Percent Meal Consumed - Lunch: 90 Percent Meal Consumed - Dinner: 80 Nutrition Comment: patient sleeping, safe tray made for patient in fridge. Subjective Subjective Patient was seen & assessed and interval progress reviewed with [treatment team] [nursing and social work] Physical Exam Vital Signs (Past 24 Hours) Last Vital Signs Temp 36.9 C 02/12/22 09:51 Pulse 80 02/12/22 09:51 Resp 16 02/12/22 09:51 BP 133/85 02/12/22 09:51 Pulse Ox 98 02/12/22 09:51 O2 Del Method 02/09/22 12:24 Results & Data ([facility]) Current Inpatient Medications Current Inpatient Medications: Current Inpatient Medications Acetaminophen (Acetaminophen 325 Mg Tab) 650 mg PO Q4H PRN PRN Reason: Headache or Minor Fever Stop: 03/11/22 13:53 Al Hydrox/Mg Hydrox/Simethicone (Aluminum/Magnesium Susp 30 Ml Udc) 30 ml PO Q4H PRN PRN Reason: GI Upset Stop: 03/11/22 13:53 Atorvastatin Calcium (Atorvastatin 20 Mg Tab) 20 mg PO HS DONNIE Stop: 03/11/22 20:59 Last Admin: 02/11/22 20:48 Dose: 20 mg Bismuth Subsalicylate (Bismuth Subsalicylate Liqd 236 Ml) 15 ml PO PRN PRN PRN Reason: Loose Stool Stop: 03/11/22 13:53 Cyclobenzaprine HCl (Cyclobenzaprine Hcl 5 Mg Tab) 5 mg PO HS DONNIE Stop: 03/11/22 20:59 Last Admin: 02/11/22 20:49 Dose: 5 mg Docusate Sodium (Docusate Sodium 100 Mg Cap) 100 mg PO HS DONNIE Stop: 03/11/22 20:59 Last Admin: 02/11/22 20:49 Dose: 100 mg Gabapentin (Gabapentin 400 Mg Cap) 400 mg PO BIDM DONNIE Stop: 03/12/22 17:44 Last Admin: 02/12/22 09:02 Dose: 400 mg [place]ards Carbonate (Robards Carbonate 300 Mg Tab) 150 mg PO DAILY DONNIE Stop: 03/12/22 08:59 Last Admin: 02/12/22 09:01 Dose: 150 mg Lorazepam (Lorazepam 0.5 Mg Tab) 0.5 mg PO QID PRN PRN Reason: Anxiety Stop: 03/11/22 13:51 Last Admin: 02/11/22 22:45 Dose: 0.5 mg Magnesium Hydroxide (Magnesium Hydroxide Susp 30 Ml Udc) 30 ml PO DAILY PRN PRN Reason: Constipation Stop: 03/11/22 13:53 Nitrofurantoin Macrocrystals (Nitrofurantoin Monohydrate 100 Mg Cap) 100 mg PO BID DONNIE Stop: 02/13/22 21:01 Last Admin: 02/12/22 09:01 Dose: 100 mg Sodium Chloride (Sodium Chloride 0.65% Na Soln 45 Ml ([place])) 1 - 2 sprays NA PRN PRN PRN Reason: Nasal Dryness/Congestion Stop: 03/11/22 13:53 Valbenazine (Valbenazine Tosylate 60 Mg Capsule) 60 mg PO HS DONNIE Stop: 03/11/22 21:59 Last Admin: 02/11/22 20:49 Dose: 60 mg Mental Health & Subst Abuse Tx Psychiatrist Name of Psychiatrist: Cruzito Higgins Psychiatrist's Date of Appointment with Psychiatrist: 03/01/22 Time of Appointment with Psychiatrist: 9am Psychiatric Appointment Comment: [address] [place], [place] Therapist Name of Therapist: pt. unsure Isotope Hydrologist Name of Isotope Hydrologist: Joanne Zurita Post Discharge Appointments Primary Care Physician Name Of Family Doctor: Cruzito Spears Primary Care Date of Appointment with PCP: 03/03/22 Time of Appointment with PCP: 9am Provider Appointment Comment: [address] [place], [place] Smoking Cessation Counseling Tobacco Cessation Medication Prescribed at Discharge: Not Applicable/Non-Smoker Contact Information Discharge / [phone] Discharge Address: [address] [place], [place] [address]LARRY Pleitez [address]
[2022-02-12] MEDS ORDERED: DESTROY THIS MEDICATION ONE (09:59)
--- NOTE | 2022-02-12 10:31 | Discharge Summary ---
Date of Service February 12, 2022 History of Present Illness Patient presented to ED with family. Son was reportedly concerned for possible manic episode as per ED CM note: met with pt bedside to complete brief MH and suicide risk assessments. Pts son in the room and provides nearly all of the hi story. States pt has been decompensating for the past couple of weeks and was significantly worse last night when pts called him to watch her today. Sachin states that when he arrived, pt was attempting to feed the cows with household garbage rather than livestock feed. Pt has also been seeing a shadow that she states is a woman. Most recent MH inpatient stay at [facility] in summer of 2020. [place] states pt sees [facility] for PCP and med management and [facility]. Pt has had a recent increase in falls and currently has an unsteady gate but typically does not require assistance to ambulate. Pts son states pt did not sleep at all last night but did sleep for approximately 2 hours today. Pt has had her nighttime meds already tonight and denies being tired. Pt is oriented to person and place but is unable to state the day or date. The patient is known to me from multiple hospitalizations, some on the medical floor for dystonia, difficulty with ADLs (eating, etc.) due to TD, etc. She is exquisitely sensitive to antipsychotic medications. Staff contacted her son to confirm medication list as lithium wasn't listed despite recent rx and she reported at times not taking them correctly. She was idenitifed as having a UTI which is likely a contributing factor but was felt to be medically stable for psych as was willing to take PO antibiotics (initially resisted but dose was confirmed). She currently denies hallucinations and slept overnight in ED. Physical Exam Psychiatric See admission H&P and DOD assessment. Vital Signs (Past 24 Hours) Last Vital Signs Temp 36.9 C 02/12/22 09:51 Pulse 80 02/12/22 09:51 Resp 16 02/12/22 09:51 BP 133/85 02/12/22 09:51 Pulse Ox 98 02/12/22 09:51 O2 Del Method 02/09/22 12:24 Principal Diagnosis bipolar I disorder Psychiatric Data See daily stay summary. In short, safety was maintained and the patient was cooperative with care. Medication changes included holding her Prozac and Fanapt. Prozac was held due to reports of possible alison as contributing factor to confusion and poor sleep and Fanapt due to new medication with acute worsening. She slept well and there was no evidence of alison on the unit. She did have confusion on day 1 in the afternoon and was briefly placed on elopement precautions. Patient was identified in the ED as having a UTI and this was likely contributing to her outpatient presentation/worsening. It does seem that age related cognitive decline could mimic mental illness as confusion. It appears that she is on a lower dose of lithium than in the past and that her thyroid may be overcorrected (mildly). Her Synthroid was held and will be restarted at discharge at a lower dose. She should have a repeat thyroid panel in 6 weeks. A safety plan was completed prior to discharge. Day of Discharge Assessment Today the patient voices readiness for discharge. They note improvement in mood and deny thoughts to harm self or others. Thoughts remain concrete and they are improved from admission. There is no evidence of psychosis. They agree to take mediations as prescribed and keep follow-up appointments. They are stable for discharge to outpatient level of care. Transition of Care Transition Of Care Record: was reviewed with the patient Advance Directives Advance Directives Information Provided: Yes Advance Directives: No Mental Health Advance Directive: No Advance Directives on File: No Living Will: No Power of Sugar Cane Planter: No Advance Directives Reason:: Declines as Mental Health Visit. Suicide Risk Level Suicide Risk Level Comments: Suicide risk at discharge is deemed low as the patient is no longer requiring 24-hr monitoring, has a safety plan, and is free of suicidal ideation at discharge. Risk Factors Assessment : Yes Do You Have Access To A Gun?: No Previous Psychiatric Hospitalization: Yes Protective Factors Assessment : Yes Supportive Family: Yes Tobacco Cessation at Discharge Tobacco Cessation Medication Prescribed at Discharge: Not Applicable/Non-Smoker Total Time Total Time Spent: Greater Than 30 Minutes Total Time Includes: Examination of the patient, Discharge Planning and Medication Reconciliation Discharge Data Lab Results 02/08/22 02/08/22 02/08/22 22:11 22:11 22:11 WBC RBC Hgb Hct MCV MCH MCHC RDW Std Deviation RDW Coeff of Zakiya Plt Count MPV Immature Gran % (Auto) Neut % (Auto) Lymph % (Auto) [place] % (Auto) Eos % (Auto) Baso % (Auto) Neut # (Auto) Lymph # (Auto) [place] # (Auto) Eos # (Auto) Baso # (Auto) Immature Gran # (Auto) Sodium 140 Potassium 4.2 Chloride 108 H Carbon Dioxide 25 Anion Gap 7 BUN 18 Creatinine 1.07 Est Cr Clr Drug Dosing 46.5 Est GFR ( Amer) 64.0 Est GFR (Non-Af Amer) 55.2 BUN/Creatinine Ratio 16.8 Glucose 96 Calcium 9.8 Total Bilirubin 0.7 AST 18 ALT 12 Alkaline Phosphatase 77 Total Protein 6.9 Albumin 4.4 Globulin 2.5 Albumin/Globulin Ratio 1.8 TSH Urine Color Urine Appearance Urine pH Ur Specific Marissa Urine Protein Urine Glucose (UA) Urine Ketones Urine Blood Urine Nitrite Urine Bilirubin Urine Urobilinogen Ur Leukocyte Esterase Urine RBC Urine WBC Ur Epithelial Cells Urine Bacteria Salicylates Urine Opiates Screen Ur Methadone, Qual Acetaminophen Urine Barbiturates Ur Phencyclidine (PCP) U Amphetamin/Meth Scrn MDMA (Ecstasy) Screen U Benzodiazepines Scrn [place] Ur Cocaine Metabolite U Marijuana (THC) Screen Ethyl Alcohol mg/dL < 10.0 SARS-CoV-2, RNA, NAAT NEGATIVE 02/08/22 02/08/22 02/08/22 22:28 22:28 22:28 WBC 7.71 RBC 4.39 Hgb 13.3 Hct 39.8 MCV 90.7 MCH 30.3 MCHC 33.4 RDW Std Deviation 40.9 RDW Coeff of Zakiya 12.3 Plt Count 165 MPV 10.5 Immature Gran % (Auto) 0.4 Neut % (Auto) 68.6 Lymph % (Auto) 20.4 [place] % (Auto) 6.9 Eos % (Auto) 3.2 Baso % (Auto) 0.5 Neut # (Auto) 5.29 Lymph # (Auto) 1.57 [place] # (Auto) 0.53 Eos # (Auto) 0.25 Baso # (Auto) 0.04 Immature Gran # (Auto) 0.03 H Sodium Potassium Chloride Carbon Dioxide Anion Gap BUN Creatinine Est Cr Clr Drug Dosing Est GFR ( Amer) Est GFR (Non-Af Amer) BUN/Creatinine Ratio Glucose Calcium Total Bilirubin AST ALT Alkaline Phosphatase Total Protein Albumin Globulin Albumin/Globulin Ratio TSH 0.159 L Urine Color Urine Appearance Urine pH Ur Specific Marissa Urine Protein Urine Glucose (UA) Urine Ketones Urine Blood Urine Nitrite Urine Bilirubin Urine Urobilinogen Ur Leukocyte Esterase Urine RBC Urine WBC Ur Epithelial Cells Urine Bacteria Salicylates < 3.0 L Urine Opiates Screen Ur Methadone, Qual Acetaminophen < 3 L Urine Barbiturates Ur Phencyclidine (PCP) U Amphetamin/Meth Scrn MDMA (Ecstasy) Screen U Benzodiazepines Scrn [place] Ur Cocaine Metabolite U Marijuana (THC) Screen Ethyl Alcohol mg/dL SARS-CoV-2, RNA, NAAT 02/08/22 02/09/22 02/09/22 22:28 02:00 02:00 WBC RBC Hgb Hct MCV MCH MCHC RDW Std Deviation RDW Coeff of Zakiya Plt Count MPV Immature Gran % (Auto) Neut % (Auto) Lymph % (Auto) [place] % (Auto) Eos % (Auto) Baso % (Auto) Neut # (Auto) Lymph # (Auto) [place] # (Auto) Eos # (Auto) Baso # (Auto) Immature Gran # (Auto) Sodium Potassium Chloride Carbon Dioxide Anion Gap BUN Creatinine Est Cr Clr Drug Dosing Est GFR ( Amer) Est GFR (Non-Af Amer) BUN/Creatinine Ratio Glucose Calcium Total Bilirubin AST ALT Alkaline Phosphatase Total Protein Albumin Globulin Albumin/Globulin Ratio TSH Urine Color Yellow Urine Appearance Slightly Cloudy Urine pH 6.5 Ur Specific Marissa 1.015 Urine Protein Negative Urine Glucose (UA) Negative Urine Ketones Negative Urine Blood Negative Urine Nitrite Positive A Urine Bilirubin Negative Urine Urobilinogen Negative Ur Leukocyte Esterase 2+ H Urine RBC 0-4 Urine WBC >30 H Ur Epithelial Cells 5-10 H Urine Bacteria 4+ H Salicylates Urine Opiates Screen Neg Ur Methadone, Qual Neg Acetaminophen Urine Barbiturates Neg Ur Phencyclidine (PCP) Neg U Amphetamin/Meth Scrn Neg MDMA (Ecstasy) Screen Neg U Benzodiazepines Scrn Neg [place] 0.4 L Ur Cocaine Metabolite Neg U Marijuana (THC) Screen Neg Ethyl Alcohol mg/dL SARS-CoV-2, RNA, NAAT Hospital Course (1) Bipolar 1 disorder: (2) Tardive dyskinesia: Plan 02/11/22: continue current medication and treatment plan. The patient is impr oving. 02/10/22: The patient has been redirectible, records reviewed. Has been on clozaril 100 mg briefly in past. No trial of Depakote listed. 02/09/22: The patient was admitted to the [facility] ([facility] inpatient mental health unit) on q15 min checks (behavioral with suicide precautions) for safety. The patient will participate in group, recreational, and milieu therapies and will be offered additional individual and family sessions as clinically appropriate. MNPR given age/hx of paranoia/TD/communication difficulties. Patient does not currently appear manic but will hold Prozac, particularly as I am recommending that she hold Fanapt pending review of records from [facility]. Macrobid course as recommended by ED. Mental Health & Subst Abuse Tx Psychiatrist Name of Psychiatrist: Cruzito Higgins Psychiatrist's Date of Appointment with Psychiatrist: 03/01/22 Time of Appointment with Psychiatrist: 9am Psychiatric Appointment Comment: [address] [place], [place] Psychiatrist Release of Information: Obtained, Reviewed and Signed Therapist Name of Therapist: . Deli Bakery Clerk Name of Deli Bakery Clerk: Joanne Murillo Post Discharge Appointments Primary Care Physician Name Of Family Doctor: Cruzito Spears Primary Care Date of Appointment with PCP: 03/03/22 Time of Appointment with PCP: 9am Provider Appointment Comment: [address] [place], [place] Primary Care Release of Information: Obtained, Reviewed and Signed Smoking Cessation Counseling Tobacco Cessation Medication Prescribed at Discharge: Not Applicable/Non-Smoker Contact Information Discharge / [phone] Discharge [address]: [address] [place] [address] [place] [phone] Discharge Plan Discharge Items Patient Disposition: Home - Self-Care Reason For Visit: BIPOLAR Discharge Diagnosis: same Activity: Resume your previous activity Non-emergency contact: Primary Care Provider, Psychiatrist and Dev Technical Mgr Call non-emergency contact if: you have any medication questions and your symptoms worsen Follow-up/Referrals: Sonja Spears DO [Primary Care Provider] - Diet: Regular Diet Texture: Easy to Chew Addtl Attending Provider Instructions: SPECIAL CARE INSTRUCTIONS: 1. Follow through with your scheduled aftercare appointments. If unable to keep an appointment, please call to reschedule. 2. Take your medication only as prescribed. Medication should not be changed or stopped without the approval of your doctor. In the event of worsening symptoms or concerns about side effects, contact your doctor immediately. 3. Utilize new healthy coping skills, anger management skills, and stress management skills learned during your hospitalization. Journal feelings and process them with a support person. Identify stressors or situations that may result in relapse, deterioration or inappropriate behaviors and develop a plan to deal with those issues. 4. If your coping skills are ineffective and you are in crisis, contact your outpatient providers for direction. If unable to reach your providers, please call the [facility] CRISIS LINE AT , go to the [facility] walk-in center at [address], [address], [place], or go to the closest Emergency Room. 5. Avoid alcohol and un-prescribed drugs. 6. You have been provided with the Mental Health Advance Directives Pamphlet for your review. 7. Your condition is stable for discharge to outpatient level of care, but recovery is an ongoing process. Ifthoughts to harm yourself or others return, follow the safety plan developed during your stay. Planning for a safe return home includes securing weapons. Our treatment team recommends weaponsbe removed from the home until your outpatient provider reassesses your progress. In rare cases where the items themselvescannot be removed, guns and ammunitionshould be secured separatelyand keys stored by a reliable personoutside of the home. If you were admitted on an involuntary commitment, the police or other legal authorities may be involved in this process. AFTERCARE APPOINTMENTS: * Please call your insurance company prior to your scheduled appointment to confirm your aftercare providers are covered. Take your insurance information to your appointments. WHO TO CALL AND WHEN: Medical Emergencies: For questions or emergencies related to your hospital stay, please contact the Inpatient Behavioral Health Unit at [phone]. A licensed clinician is on-call 06/12 for the Behavioral Health Unit for emergencies At any time you feel your situation is an emergency, you may also call 911 immediately. Pending Studies at Discharge: No Stand-Alone Forms: My [facility] Zero Motorcycles, Smoking Cessation Medications and DC Order Prescriptions: New nitrofurantoin monohyd/m-cryst 100 mg Capsule 100 mg PO BID Qty: 3 0RF Rx Instructions: take until gone gabapentin 400 mg Capsule 400 mg PO BIDM Qty: 1 0RF levothyroxine [Synthroid] 50 mcg tablet 50 mcg PO DAILY Qty: 30 0RF Continued Ingrezza 60 mg capsule 60 mg PO DAILY Qty: 30 5RF lorazepam [Ativan] 0.5 mg Tablet 0.5 mg PO QID PRN (Reason: Anxiety) atorvastatin [Lipitor] 20 mg tablet 20 mg PO HS Qty: 30 0RF docusate sodium [Colace] 100 mg capsule 100 - 200 mg PO HS lithium carbonate 150 mg capsule 150 mg PO DAILY cyclobenzaprine 5 mg tablet 5 mg PO HS PRN (Reason: Muscle Spasm) aspirin 81 mg Tablet,Delayed Release (Dr/Ec) 81 mg PO DAILY cholecalciferol (vitamin D3) [Vitamin D3] 125 mcg (5,000 unit) Tablet 125 mcg PO WK Discontinued gabapentin [Neurontin] 400 mg Capsule 400 mg PO TID benztropine 1 mg Tablet 1 mg PO BID Qty: 60 0RF fluoxetine [Prozac] 20 mg capsule 20 mg PO DAILY Fanapt 6 mg Tablet 6 mg PO BID levothyroxine 75 mcg tablet 75 mcg PO DAILY Discharge Orders: Discharge Order (Routine); Ordered 02/12/22 Ordered By: Susie Rodriguez Admission Data Admit Date/Time: 02/09/22 12:15 Attending Provider: Susie Rodriguez Admit Provider: Susie Rodriguez Primary Care Provider: Sonja Spears Other Interventions: Discharge Summary Assessment (RN) Last Done: 02/12/22 09:51 PSY Interdisciplinary Discharge Planning Last Done: 02/12/22 10:13 Coding Level of Care Code 62163 D/C day mgmt > 30 min Diagnoses Bipolar 1 disorder F31.9 Tardive dyskinesia G24.01
== END 2022-02-12 10:59 | disposition home or self-care (01) | DRG 885 ==
LOC: ED 21:44 → 3S 02-09 12:15 → ED 02-09 12:24

== ENCOUNTER 2022-02-09 12:15 | Inpatient (IN) | END 2022-02-09 13:53 | disposition other institution (70) | DRG 885 | LOC: 3S 12:15 ==

== ENCOUNTER 2022-08-01 12:18 | Inpatient (IN) ==
[2022-08-01 13:10] LABS: Appearance Urine Cloudy (Clear); Bacteria Urine Automated 4+ (Negative); Bilirubin Urine Negative (Negative); Blood Urine Negative (Negative); Color Urine Yellow; Epithelial Cell Urine Auto >30 /lpf (0-5); Glucose Urine UA Negative (Negative); Ketones Urine Trace (Negative); Leukocyte Esterase Urine 2+ (Negative); Nitrite Urine Negative (Negative); Protein Urine Negative (Negative); RBC Urine Automated 0-4 /hpf (0-4); Specific Gravity Urine 1.021 (1.000-1.030); Urobilinogen Urine Negative (Negative); pH Urine 6.5 (4.5-7.5)
[2022-08-01 13:19] LABS: Basophils # (auto) 0.04 K/uL (0-0.2); Basophils % (auto) 0.5 %; Eosinophils % (auto) 1.3 %; Hematocrit (blood only) 44.2 % (37.0-47.0); Immature Granulocytes # (auto) 0.03 K/uL (0.01-0.20); Immature Granulocytes % (auto) 0.4 %; Lymphocytes # (auto) 1.94 K/uL (1.2-3.4); Lymphocytes % (auto) 25.3 %; Mean Corpuscular Hemoglobin 30.4 pg (25.0-34.0); Mean Corpuscular Hgb Conc 33.9 g/dL (32.0-36.0); Mean Corpuscular Volume 89.5 fL (80.0-100.0); Mean Platelet Volume 10.6 fL (9.4-12.4); Monocytes # (auto) 0.48 K/uL (0.11-0.59); Monocytes % (auto) 6.3 %; Neutrophils # (auto) 5.09 K/uL (1.40-6.50); Neutrophils % (auto) 66.2 %; Platelet Count 192 K/uL (130-400); RDW Coefficient of Variation 12.2 % (11.5-14.5); Red Blood Count 4.94 M/uL (4.20-5.40); White Blood Count 7.68 K/ul (4.8-10.8)
[2022-08-01 13:33] LABS: Acetaminophen < 3 ug/ml (10-30); Salicylate < 3.0 mg/dl (3.0-30)
[2022-08-01 13:34] LABS: Alanine Aminotransferase 32 U/L (7-52); Albumin Globulin Ratio 1.5 (0.9-2); Albumin Level 4.5 gm/dl (3.4-5.0); Alkaline Phosphatase 99 U/L (34-104); Anion Gap 7 (3-11); Aspartate Aminotransferase 26 U/L (13-39); BUN Creatinine Ratio 22.2 (10-20); Blood Urea Nitrogen 18 mg/dl (6-23); Calcium 9.7 mg/dl (8.5-10.1); Carbon Dioxide 24 mmol/L (21-32); Chloride 109 mmol/L (98-107); Est GFR (Non-African American) 76.8 ml/min; Glucose 141 mg/dl (70-99(Fasting)); Potassium 3.9 mmol/L (3.5-5.1); Sodium 140 mmol/L (136-145); Total Protein 7.5 gm/dl (6.0-8.3)
[2022-08-01 13:40] LABS: Amphetamines+Metham, Urine Neg (Neg); Barbiturates, Urine Neg (Neg); Benzodiazepine, Urine Neg (Neg); Cocaine, Urine Neg (Neg); MDMA (Ecstacy), Urine Neg (Neg); Methadone, Urine Neg (Neg); Opiate, Urine Neg (Neg); Phencyclidine, Urine Neg (Neg)
[2022-08-01] MEDS ORDERED: cephALEXin 500 MG CAP PO STA (13:51)
--- NOTE | 2022-08-01 14:07 | XRay Report ---
XR chest 1V portable HISTORY: cough COMPARISON: Chest 01/14/2021. FINDINGS: No pneumothorax. No pleural effusions. There is mild elevation of the right hemidiaphragm. The heart is top normal in size. The lungs are clear. No acute fractures identified. IMPRESSION: No acute process. ACT 112: Negative or not required by law. Electronically signed by: True Iverson M.D. 08/01/2022 2:05 PM
--- NOTE | 2022-08-01 15:37 | Emergency Department Note ---
Impression & Plan Suicidal ideation, Insomnia, Anxiety ED Provider Note CHIEF COMPLAINT: Difficulty sleeping, suicidal ideation HISTORY OF PRESENT ILLNESS: This 62-year-old female patient presents to the emergency department with complaints of difficulty sleeping and suicidal ideation. The patient is tearful and anxious, stating she feels isolated from her mother because she has not gone to visit her on a daily basis. Patient states her mother is in her 90s and lives close by. Her father also recently . Patient states she lives at home with her . Apparently her son dropped her off at the hospital for evaluation today. REVIEW OF SYSTEMS: A review of systems was performed with positives and pertinent negatives listed in the history of present illness. 10 systems were reviewed and are otherwise negative. ALLERGIES: see below MEDICATIONS: see below PMH: see below SOCIAL HISTORY: see below DDx: Mood disorder, infection, hypoglycemia, electrolyte abnormalities, cardiac sources, intracerebral event, toxicologic, trauma, neurologic, as well as other pathologies. PHYSICAL EXAM: Vital signs reviewed. General: Anxious and jittery 62-year-old female in no significant distress. Tearful. HEENT: No scleral icterus, PERRLA, neck supple. Moist mucous membranes Cardiovascular: Regular rate and rhythm, no extra sounds. Pulmonary: Clear to auscultation bilaterally, normal work of breathing. Abdomen: Soft, nontender, nondistended, positive bowel sounds. Musculoskeletal: Atraumatic, no peripheral edema. Psych: Positive SI without a plan, negative HI Neurologic: Patient awake alert and oriented x 3, speech is clear Skin: Warm, dry, no rash EMERGENCY DEPARTMENT COURSE/MDM: This patient was evaluated and appeared to be in no significant distress. The patient is noted to have a UA that is likely contaminated and will be sent for culture. She was given Keflex 500 mg p.o. which should be continued twice daily x3 days pending culture results. The patient was medically cleared and referred to psychiatric case management for evaluation. The patient is voluntary for admission at this time. She has suicidal ideation but does not have any plan and denies any previous suicide attempts. The patient has been referred to [facility]. and is pending their evaluation. Case has been signed out to Dr. Desir at the change of shift pending final disposition. DISPOSITION: Pending Past Med/Surg History Medical History Bipolar 1 disorder Chronic diarrhea of unknown origin Constipation DVT prophylaxis History of anesthesia reaction difficulty waking Hyperlipidemia Hypothyroidism Memory changes Psychosis Tardive dyskinesia UTI (urinary tract infection) Surgical History History of colonoscopy with polypectomy History of conization of cervix History of cervical conization by laser History of dilation and curettage History of foot surgery x2--right--no hardware History of hysteroscopy History of right oophorectomy History of tooth extraction all upper teeth History of tubal ligation Family History Father Type 2 diabetes mellitus Family hx colonic polyps Brother Type 2 diabetes mellitus Sister Parathyroid disorder Brother Type 2 diabetes mellitus Other No family history of adverse response to anesthesia Social History Smoking Status: Never smoker Second Hand Exposure: No; Hx Alcohol Use: No Hx Substance Use: No Preferred Language: Welsh Communication Ability: Effective 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 Beliefs That Will Affect Care: None marital status: Current Living Situation: Spouse current occupational status: employed Feels Safe at Home: Yes Gender Identity: Female Assistive Devices: None Allergies Allergies Allergy/AdvReac Type Severity Reaction Status Date / Time Penicillins Allergy Mild Rash Verified 12/15/21 10:25 Home Meds Home Medications Medication Instructions Recorded Confirmed lorazepam 0.5 mg tablet (Ativan) 0.5 mg PO QID PRN Anxiety 01/01/21 08/01/22 docusate sodium 100 mg capsule 100 - 200 mg PO HS 02/08/22 08/01/22 (Colace) lithium carbonate 150 mg capsule 150 mg PO DAILY 02/09/22 08/01/22 aspirin 81 mg tablet,delayed 81 mg PO DAILY 02/10/22 08/01/22 release cyclobenzaprine 5 mg tablet 5 mg PO HS PRN Muscle Spasm 02/10/22 08/01/22 cholecalciferol (vitamin D3) 1,250 1,250 mcg PO WK 08/01/22 08/01/22 mcg (50,000 unit) capsule deutetrabenazine 6 mg (14)-9 mg See Rx Instructions .Route .COMPLEX 08/01/22 08/01/22 (14) tablets in a dose pack (Austedo Tardive Dys Titratn Pk (Week 1-2)) Previous Rx's Medication Instructions Recorded atorvastatin 20 mg tablet (Lipitor) 20 mg PO HS #30 tabs 01/09/21 gabapentin 400 mg capsule 400 mg PO BIDM #1 cap 02/12/22 levothyroxine 50 mcg tablet 50 mcg PO DAILY #30 tabs 02/12/22 (Synthroid) Results & Data (ED) Vital Signs Vital Signs - 24 hr 08/01/22 12:24 08/01/22 14:00 Temperature 36.5 C Temperature Source Temporal Artery Scan Pulse Rate 94 H Pulse Rate [Finger] 72 Respiratory Rate 18 14 Respiratory Effort / Characteristics Non-Labored Spontaneous Respiratory Depth Normal Blood Pressure 124/79 Blood Pressure [Right Arm] 137/88 Blood Pressure Mean 94 Blood Pressure Mean [Right Arm] 104 Blood Pressure Position Sitting Pulse Oximetry 96 98 Oxygen Delivery Method Room Air Room Air Sepsis Recent Fever Within 48 Hours No Sepsis New/Unexplained Change in Mental Status No Sepsis Action Taken by Nursing No Action Required Home Medications Current Medication List: was personally reviewed by me Laboratory Data Attestation: I reviewed the patient's lab results. 08/01/22 12:49 08/01/22 12:49 Lab Results 08/01/22 08/01/22 08/01/22 Range/Units 12:44 12:44 12:44 WBC (4.8-10.8) K/ul RBC (4.20-5.40) M/uL Hgb (12.0-16.0) g/dl Hct (37.0-47.0) % MCV (80.0-100.0) fL MCH (25.0-34.0) pg MCHC (32.0-36.0) g/dL RDW Std Deviation (36.4-46.3) fL RDW Coeff of Zakiya (11.5-14.5) % Plt Count (130-400) K/uL MPV (9.4-12.4) fL Immature Gran % (Auto) % Neut % (Auto) % Lymph % (Auto) % Leon % (Auto) % Eos % (Auto) % Baso % (Auto) % Neut # (Auto) (1.40-6.50) K/uL Lymph # (Auto) (1.2-3.4) K/uL Leon # (Auto) (0.11-0.59) K/uL Eos # (Auto) (0-0.50) K/uL Baso # (Auto) (0-0.2) K/uL Immature Gran # (Auto) (0.01-0.20) K/uL Sodium (136-145) mmol/L Potassium (3.5-5.1) mmol/L Chloride (98-107) mmol/L Carbon Dioxide (21-32) mmol/L Anion Gap (3-11) BUN (6-23) mg/dl Creatinine (0.6-1.2) mg/dl Est Cr Clr Drug Dosing Est GFR ( Amer) ml/min Est GFR (Non-Af Amer) ml/min BUN/Creatinine Ratio (10-20) Glucose (70-99(Fasting)) mg/dl Calcium (8.5-10.1) mg/dl Total Bilirubin (0.2-1.0) mg/dl AST (13-39) U/L ALT (7-52) U/L Alkaline Phosphatase (34-104) U/L Total Protein (6.0-8.3) gm/dl Albumin (3.4-5.0) gm/dl Globulin (2.5-4.0) gm/dl Albumin/Globulin Ratio (0.9-2) TSH (0.300-4.500) uIu/ml Urine Color Yellow Urine Appearance Cloudy A (Clear) Urine pH 6.5 (4.5-7.5) Ur Specific [place] 1.021 (1.000-1.030) Urine Protein Negative (Negative) Urine Glucose (UA) Negative (Negative) Urine Ketones Trace H (Negative) Urine Blood Negative (Negative) Urine Nitrite Negative (Negative) Urine Bilirubin Negative (Negative) Urine Urobilinogen Negative (Negative) Ur Leukocyte Esterase 2+ H (Negative) Urine WBC (Auto) 10-30 H (0-5) /hpf Urine RBC (Auto) 0-4 (0-4) /hpf U Hyaline Cast (Auto) 5-10 H (0-5) /lpf U Epithel Cells (Auto) >30 H (0-5) /lpf Urine Bacteria (Auto) 4+ H (Negative) Salicylates (3.0-30) mg/dl Urine Opiates Screen Neg (Neg) Ur Methadone, Qual Neg (Neg) Acetaminophen (10-30) ug/ml Urine Barbiturates Neg (Neg) Ur Phencyclidine (PCP) Neg (Neg) U Amphetamin/Meth Scrn Neg (Neg) MDMA (Ecstasy) Screen Neg (Neg) U Benzodiazepines Scrn Neg (Neg) Ur Cocaine Metabolite Neg (Neg) U Marijuana (THC) Screen Neg (Neg) Ethyl Alcohol mg/dL (<10.0) mg/dl SARS-CoV-2, RNA, NAAT NEGATIVE (NEGATIVE) 08/01/22 08/01/22 08/01/22 Range/Units 12:49 12:49 12:49 WBC 7.68 (4.8-10.8) K/ul RBC 4.94 (4.20-5.40) M/uL Hgb 15.0 (12.0-16.0) g/dl Hct 44.2 (37.0-47.0) % MCV 89.5 (80.0-100.0) fL MCH 30.4 (25.0-34.0) pg MCHC 33.9 (32.0-36.0) g/dL RDW Std Deviation 40.0 (36.4-46.3) fL RDW Coeff of Zakiya 12.2 (11.5-14.5) % Plt Count 192 (130-400) K/uL MPV 10.6 (9.4-12.4) fL Immature Gran % (Auto) 0.4 % Neut % (Auto) 66.2 % Lymph % (Auto) 25.3 % Leon % (Auto) 6.3 % Eos % (Auto) 1.3 % Baso % (Auto) 0.5 % Neut # (Auto) 5.09 (1.40-6.50) K/uL Lymph # (Auto) 1.94 (1.2-3.4) K/uL Leon # (Auto) 0.48 (0.11-0.59) K/uL Eos # (Auto) 0.10 (0-0.50) K/uL Baso # (Auto) 0.04 (0-0.2) K/uL Immature Gran # (Auto) 0.03 (0.01-0.20) K/uL Sodium 140 (136-145) mmol/L Potassium 3.9 (3.5-5.1) mmol/L Chloride 109 H (98-107) mmol/L Carbon Dioxide 24 (21-32) mmol/L Anion Gap 7 (3-11) BUN 18 (6-23) mg/dl Creatinine 0.81 (0.6-1.2) mg/dl Est Cr Clr Drug Dosing Not Reportable Est GFR ( Amer) 89.0 ml/min Est GFR (Non-Af Amer) 76.8 ml/min BUN/Creatinine Ratio 22.2 H (10-20) Glucose 141 H (70-99(Fasting)) mg/dl Calcium 9.7 (8.5-10.1) mg/dl Total Bilirubin 1.0 (0.2-1.0) mg/dl AST 26 (13-39) U/L ALT 32 (7-52) U/L Alkaline Phosphatase 99 (34-104) U/L Total Protein 7.5 (6.0-8.3) gm/dl Albumin 4.5 (3.4-5.0) gm/dl Globulin 3.0 (2.5-4.0) gm/dl Albumin/Globulin Ratio 1.5 (0.9-2) TSH 1.271 (0.300-4.500) uIu/ml Urine Color Urine Appearance (Clear) Urine pH (4.5-7.5) Ur Specific [place] (1.000-1.030) Urine Protein (Negative) Urine Glucose (UA) (Negative) Urine Ketones (Negative) Urine Blood (Negative) Urine Nitrite (Negative) Urine Bilirubin (Negative) Urine Urobilinogen (Negative) Ur Leukocyte Esterase (Negative) Urine WBC (Auto) (0-5) /hpf Urine RBC (Auto) (0-4) /hpf U Hyaline Cast (Auto) (0-5) /lpf U Epithel Cells (Auto) (0-5) /lpf Urine Bacteria (Auto) (Negative) Salicylates (3.0-30) mg/dl Urine Opiates Screen (Neg) Ur Methadone, Qual (Neg) Acetaminophen (10-30) ug/ml Urine Barbiturates (Neg) Ur Phencyclidine (PCP) (Neg) U Amphetamin/Meth Scrn (Neg) MDMA (Ecstasy) Screen (Neg) U Benzodiazepines Scrn (Neg) Ur Cocaine Metabolite (Neg) U Marijuana (THC) Screen (Neg) Ethyl Alcohol mg/dL (<10.0) mg/dl SARS-CoV-2, RNA, NAAT (NEGATIVE) 08/01/22 08/01/22 Range/Units 12:49 12:49 WBC (4.8-10.8) K/ul RBC (4.20-5.40) M/uL Hgb (12.0-16.0) g/dl Hct (37.0-47.0) % MCV (80.0-100.0) fL MCH (25.0-34.0) pg MCHC (32.0-36.0) g/dL RDW Std Deviation (36.4-46.3) fL RDW Coeff of Zakiya (11.5-14.5) % Plt Count (130-400) K/uL MPV (9.4-12.4) fL Immature Gran % (Auto) % Neut % (Auto) % Lymph % (Auto) % Leon % (Auto) % Eos % (Auto) % Baso % (Auto) % Neut # (Auto) (1.40-6.50) K/uL Lymph # (Auto) (1.2-3.4) K/uL Leon # (Auto) (0.11-0.59) K/uL Eos # (Auto) (0-0.50) K/uL Baso # (Auto) (0-0.2) K/uL Immature Gran # (Auto) (0.01-0.20) K/uL Sodium (136-145) mmol/L Potassium (3.5-5.1) mmol/L Chloride (98-107) mmol/L Carbon Dioxide (21-32) mmol/L Anion Gap (3-11) BUN (6-23) mg/dl Creatinine (0.6-1.2) mg/dl Est Cr Clr Drug Dosing Est GFR ( Amer) ml/min Est GFR (Non-Af Amer) ml/min BUN/Creatinine Ratio (10-20) Glucose (70-99(Fasting)) mg/dl Calcium (8.5-10.1) mg/dl Total Bilirubin (0.2-1.0) mg/dl AST (13-39) U/L ALT (7-52) U/L Alkaline Phosphatase (34-104) U/L Total Protein (6.0-8.3) gm/dl Albumin (3.4-5.0) gm/dl Globulin (2.5-4.0) gm/dl Albumin/Globulin Ratio (0.9-2) TSH (0.300-4.500) uIu/ml Urine Color Urine Appearance (Clear) Urine pH (4.5-7.5) Ur Specific [place] (1.000-1.030) Urine Protein (Negative) Urine Glucose (UA) (Negative) Urine Ketones (Negative) Urine Blood (Negative) Urine Nitrite (Negative) Urine Bilirubin (Negative) Urine Urobilinogen (Negative) Ur Leukocyte Esterase (Negative) Urine WBC (Auto) (0-5) /hpf Urine RBC (Auto) (0-4) /hpf U Hyaline Cast (Auto) (0-5) /lpf U Epithel Cells (Auto) (0-5) /lpf Urine Bacteria (Auto) (Negative) Salicylates < 3.0 L (3.0-30) mg/dl Urine Opiates Screen (Neg) Ur Methadone, Qual (Neg) Acetaminophen < 3 L (10-30) ug/ml Urine Barbiturates (Neg) Ur Phencyclidine (PCP) (Neg) U Amphetamin/Meth Scrn (Neg) MDMA (Ecstasy) Screen (Neg) U Benzodiazepines Scrn (Neg) Ur Cocaine Metabolite (Neg) U Marijuana (THC) Screen (Neg) Ethyl Alcohol mg/dL < 10.0 (<10.0) mg/dl SARS-CoV-2, RNA, NAAT (NEGATIVE) Administered Medications Discontinued Medications Cephalexin HCl (Cephalexin 500 Mg Cap) 500 mg PO NOW STA Stop: 08/01/22 13:52 Last Admin: 08/01/22 14:00 Dose: 500 mg Documented By: LIBRADO Imaging Data Radiologist's Impression: Chest X-Ray 08/01/22 13:50 XR chest 1V portable HISTORY: cough COMPARISON: Chest 01/14/2021. FINDINGS: No pneumothorax. No pleural effusions. There is mild elevation of the right hemidiaphragm. The heart is top normal in size. The lungs are clear. No acute fractures identified. IMPRESSION: No acute process. ACT 112: Negative or not required by law. Electronically signed by: True Iverson M.D. 08/01/2022 2:05 PM Discharge Plan Visit Data Chief Complaint: Mental Health Evaluation Stated Complaint: MENTAL HEALTH EVAL ED Provider: Pierce Desir Discharge Problem: Suicidal ideation, Insomnia, Anxiety Forms Stand Alone Forms: My [facility], Suicide Prevention Resources Prescriptions Prescriptions: No Action [place] TD Titratn Pk (Wk 1-2) 6 mg (14)- 9 mg (14) Tablets,Dose Pack See Rx Instructions .ROUTE .COMPLEX Rx Instructions: PT is week 2 of this medication cholecalciferol (vitamin D3) 1,250 mcg (50,000 unit) capsule 1,250 mcg PO WK lorazepam [Ativan] 0.5 mg Tablet 0.5 mg PO QID PRN (Reason: Anxiety) atorvastatin [Lipitor] 20 mg tablet 20 mg PO HS Qty: 30 0RF docusate sodium [Colace] 100 mg capsule 100 - 200 mg PO HS lithium carbonate 150 mg capsule 150 mg PO DAILY cyclobenzaprine 5 mg tablet 5 mg PO HS PRN (Reason: Muscle Spasm) aspirin 81 mg Tablet,Delayed Release (Dr/Ec) 81 mg PO DAILY gabapentin 400 mg Capsule 400 mg PO BIDM Qty: 1 0RF levothyroxine [Synthroid] 50 mcg tablet 50 mcg PO DAILY Qty: 30 0RF Referrals Referrals: Sonja Spears DO [Primary Care Provider] -
--- NOTE | 2022-08-01 15:37 | Emergency Department Note ---
ED Visit Note Patient is a 62-year-old female who was medically cleared by Dr. Torres who has a past medical history of psychosis as well as bipolar. She has been having suicidal thoughts at home without a clear plan. Currently agreeable on a 201. Awaiting 3 S. evaluation. Patient was seen and evaluated by 3 S. and accepted on 201. .
[2022-08-01] MEDS ORDERED: ALUMINUM/MAGNESIUM SUSP 30 ML UDC PO PRN (20:50)
[2022-08-01] MEDS ORDERED: hydrOXYzine HCl 25 MG TAB PO PRN (20:50)
[2022-08-01] MEDS ORDERED: ACETAMINOPHEN 325 MG TAB PO PRN (20:50)
[2022-08-01] MEDS ORDERED: BISMUTH SUBSALICYLATE LIQD 236 ML PO PRN (20:50)
[2022-08-01] MEDS ORDERED: MAGNESIUM HYDROXIDE SUSP 30 ML UDC PO PRN (20:50)
[2022-08-01] MEDS ORDERED: SODIUM CHLORIDE 0.65% NA SOLN 45 ML (OCEAN) PRN (20:50)
[2022-08-01] MEDS ORDERED: DOCUSATE SODIUM 100 MG CAP PO SCH (22:00)
[2022-08-01] MEDS ORDERED: LITHIUM CARBONATE 300 MG TAB PO SCH (22:00)
[2022-08-01] MEDS ORDERED: ATORVASTATIN 20 MG TAB PO SCH (22:00)
[2022-08-01] MEDS: GABAPENTIN 400 MG CAP PO SCH (22:17)
[2022-08-02] MEDS: hydrOXYzine HCl 25 MG TAB PO PRN (05:40)
--- NOTE | 2022-08-02 08:29 | History & Physical ---
Date of Service August 02, 2022 Impression / Recommendations Impression 62 year old woman with a history of schizoaffective disorder, tardive dyskinesia, anxiety, falls and confusion/delirium with past UTIs who was admitted for worsening sleep, mood changes with SI with plan and confusion. Diagnostically consistent with unspecified psychosis, differential includes exacerbation of schizoaffective disorder vs delirium 2/2 UTI vs mixed episode of bipolar disorder vs cognitive process vs major depressive episode. She is deemed unstable and requires psychiatric hospitalization for diagnostic clarification, safety and stabilization, medication management and development of further copi ng skills. She consents to continuing her prior to admission medications of lithium and deutetrabenazine. Will continue with Keflex as recommended by ED provider for persistent ongoing UTI. History of extreme sensitivity to antipsychotics with NMS and given significant TD will attempt to hold off on use of any antipsychotics, and will hold temazepam given age, fall risk and especially since increased symptoms of psychosis may be due to delirium. MNPR due to high levels of irritability, posturing, paranoia, delusions (1) Unspecified psychosis not due to a substance or known physiological condition: (2) UTI (urinary tract infection): Hematuria presence: without hematuria Urinary tract infection type: acute cystitis Qualified Code(s): N30.00 - Acute cystitis without hematuria Plan 08/02/2022: The patient was admitted to the [facility] ([facility]) on q15 min checks (behavioral with suicide precautions) for safety. The patient will participate in group, recreational, and milieu therapies and wi ll be offered additional individual and family sessions as clinically appropriate. -Continue prior to admission: [place] 150mg daily (long standing dose), deutetrabenazine 9mg BID for one more day and then increase to 12mg BID tomorrow, gabapentin 400mg BIDM -Hold temazepam -Trazodone 50mg HS prn for insomnia -[place] level tomorrow evening for 12 hour trough -Keflex 500mg BID for 5 more doses (3 days total) per ED provider recommendations for UTI given positive culture results Inventory Assets Strengths: supportive relationships, willing to get treatment Needs: safety and stabilization, medication adjustment, additional coping skills, increased outpatient services Suicide Risk Level Suicide Risk Level: High-Moderate (q15 min suicide checks) (psychosis, confusion and periods of tearfulness with SI with plan prior to admission but today denies SI and feels safe in the hospital, agrees to let nursing/staff know should they develop plan, intent or feel unable to remain safe. ) Risk Factors Assessment : Yes Do You Have Access To A Gun?: No Health Problems: Yes Mental Health Diagnoses: Yes Previous Attempt: No Previous Psychiatric Hospitalization: Yes Protective Factors Assessment : Yes Employed: No Stable Relationships: Yes Supportive Family: Yes Good Rapport with Provider: Yes Psychiatric History Identifying Data ALVARO FRAIRE is a 62-year-old woman who currently lives in [place] with her , has a history of schizoaffective disorder, tardive dyskinesia, generalized anxiety disorder, and was admitted on 08/01/22 20:50 on a 201 voluntary commitment for increased confusion, psychosis and depression with SI. Chief Complaint "I couldn't sleep". History of Present Illness Alvaro presents for admission for worsening depression with confusion and paranoia including worries that she'll be shot by her uncle or that she accidentally killed her grandchildren. She recently completed a course of Macrobid for a UTI but on presentation to the ED yesterday had symptoms and UA consistent with ongoing UTI for which ED provider recommended ongoing Keflex given positive urine culture. While in the ED she was very tearful, reporting feeling like an outcast in her family, endorsed SI with thoughts of overdosing on her medication and auditory hallucinations telling her to run away. Additional history per ED psych CM note from 08/01/2022: "Alvaro admits to feeling suicidal for the past couple weeks with thoughts of overdosing on her medication. She also endorses auditory hallucinations telling her to run away. She follows with Tyra Higgins at [facility] and carries diagnoses of bipolar disorder and schizophrenia. She endorses depressive symptoms of sadness, crying, feelings of hopelessness, poor concentration, decreased appetite, and little to no sleep for a period of several weeks. She has had increased anxiety. Denies SIB, substance use, and trauma/abuse hx. Spoke to Alvaro's son, Bennie, with Alvaro's permission. He states that Alvaro has been increasingly paranoid and depressed with her reporting that she's significantly decompensated in her mental health this past week. He is supportive in her receiving inpatient treatment, preferably at [address] [place] [address]. Alvaro was uncertain about the need for inpatient treatment but after discussing with her the symptoms she's been having, she is agreeable to receiving inpatient treatment." She states increased difficulty sleeping over an unclear time period. When asked about her and things at home she states "good if I have a , I don't know if I have one". She agrees she has been confused and thinks this worsened over the last few days. States she's had increased urinary frequency. She has been transitioning to a new medication for tardive dyskinesia, deutetrabenazine, but she doesn't think this is helping noting "I'm shaking even more". When we start to discuss her other medications and her outpatient providers she becomes increasingly tearful and appears to be possibly responding to internal stimuli. She then states "I'm fine" repeatedly and exits the room. Alvaro struggled to participate in the interview but tolerated a brief discussion before abruptly leaving the room and then re-entering and posturing toward me in an invasive manner with intense eye contact at which point the interview was completed. Past Psychiatric History Current Psychiatric Diagnosis: schizophrenia Outpatient Services: psychiatric provider-Tyra JUAREZ at [facility] Previous Psych Admissions: multiple-last at [facility] in Jan 2022 for bizarre behaviors and confusion in setting of UTI per chart review: [facility] 06/2020, 08/2018 for alison, 02/2014 for mixed episode, 09/2016 for psychotic alison; [facility] 04/2016; [place] at age 16 and summer 2020. Do You Have Access To A Gun?: No History of Previous Suicide Attempt: No Past Medication Trials: per chart review: Del Rio -stable on it for 25 years, fluoxetine, gabapentin, Risperidone, Lurasidone, Haloperidol, Clozapine, Oxcarbazepine, Quetiapine, Restoril, Ativan, Zolpidem, Vryalar, Fanapt, Caplyta, Invega, Ingrezza (valbenazine) Past Head Trauma/Neuro History History of Concussion/Seizure: No none known Allergies Allergy/AdvReac Type Severity Reaction Status Date / Time Penicillins Allergy Mild Rash Verified 12/15/21 10:25 Home Medications Medication Instructions Recorded Confirmed Type atorvastatin 20 mg tablet (Lipitor) 20 mg PO HS #30 tabs 01/09/21 08/01/22 Rx docusate sodium 100 mg capsule 100 - 200 mg PO HS 02/08/22 08/01/22 History (Colace) lithium carbonate 150 mg capsule 150 mg PO DAILY 02/09/22 08/01/22 History aspirin 81 mg tablet,delayed 81 mg PO DAILY 02/10/22 08/01/22 History release gabapentin 400 mg capsule 400 mg PO BIDM #1 cap 02/12/22 08/01/22 Rx levothyroxine 50 mcg tablet 50 mcg PO DAILY #30 tabs 02/12/22 08/01/22 Rx (Synthroid) deutetrabenazine 6 mg (14)-9 mg See Rx Instructions .Route .COMPLEX 08/01/22 08/01/22 History (14) tablets in a dose pack (Austedo Tardive Dys Titratn Pk (Week 1-2)) lorazepam 0.5 mg tablet 0.5 mg PO BID PRN Anxiety 08/02/22 08/02/22 History melatonin 5 mg tablet 5 mg PO HS 08/02/22 08/02/22 History temazepam 7.5 mg capsule 7.5 mg PO HS 08/02/22 08/02/22 History Family History Family History of: Doesn't Know Alcohol History Hx of Alcohol Use Over the Past 12 Months: No AUDIT Total Score: 0 Smoking Use Have You Smoked or Used Tobacco Products in the Last 30 Days: No Smoking Status: Never smoker Substance History Hx of Prescription Med Misuse Over the Past 12 Months: No Hx of Over the Counter Med Misuse Over the Past 12 Months: No Hx of Inhalent Misuse Over the Past 12 Months: No Hx of Organic Substance Use Over the Past 12 Months: No Hx of Illegal Substances/Street Drug Use Over Past 12 Months: No Problems as a Result of Past Substance Use: None Identified Personal History Living Arrangements: Home Marital Status: Number Of Children: son who is very supportive Beliefs That Will Affect Care: None Current Legal Problems: No Hx Traumatic Life Events: Yes Patient History Medical History Bipolar 1 disorder Chronic diarrhea of unknown origin Constipation DVT prophylaxis History of anesthesia reaction difficulty waking Hyperlipidemia Hypothyroidism Memory changes Psychosis Tardive dyskinesia UTI (urinary tract infection) Surgical History History of colonoscopy with polypectomy History of conization of cervix History of cervical conization by laser History of dilation and curettage History of foot surgery x2--right--no hardware History of hysteroscopy History of right oophorectomy History of tooth extraction all upper teeth History of tubal ligation Family History Father Type 2 diabetes mellitus Family hx colonic polyps Brother Type 2 diabetes mellitus Sister Parathyroid disorder Brother Type 2 diabetes mellitus Other No family history of adverse response to anesthesia Social History Smoking Status: Never smoker Second Hand Exposure: No; Hx Alcohol Use: No Hx Substance Use: No Preferred Language: Yakut Communication Ability: Impaired Communication Ability Comment: patient often talks to fast, when asked to repeat - easier to understand Solar 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 Required: No Beliefs That Will Affect Care: None marital status: Current Living Situation: Spouse current occupational status: employed Feels Safe at Home: Yes Gender Identity: Female Assistive Devices: None Review of Systems Review of Systems: All systems reviewed & are unremarkable except as noted in HPI & below Physical Exam Psychiatric: Orientation: alert, oriented to person, oriented to place and + guarded Apperance: appropriately dressed and + disheveled Eye Contact: + fair eye contact Motor Behavior: + EPS (significant tardive dyskinesia of hands and feet); + abnormal motor movements Speech: + abnormal rate/rhyt hm/volume of speech (brief) Affect: + tearful affect, + blunted affect, + labile affect and + irritable affect Mood: + depressed mood, + anxious mood and + irritable mood Thought Process: + concrete thought process (brief) Thought Content: + paranoid and + delusions Suicidal Thoughts: denies suicidal plan (none currently but last night endorsed plan outside hospital to overdose) and denies suicidal intent; + reports suicidal thoughts (denies currently but endorsing last night) Homicidal Thoughts: denies homicidal thoughts Hallucinations: + auditory hallucinations; no visual hallucinations Cognition: recent memory grossly intact, remote memory grossly intact and language grossly intact; + attention not intact Estimated Intelligence: consistent with education level Insight: + limited insight Judgment: + severely impaired judgement Vital Signs (Past 24 Hours): Last Vital Signs Temp 37.3 C 08/02/22 06:00 Pulse 78 08/02/22 06:00 Resp 20 08/02/22 06:00 BP 122/68 03/20/23 06:32 Pulse Ox 96 08/02/22 06:00 O2 Del Method Room Air 08/02/22 06:00 Exam Statement: A physical exam was performed in the ED by Dr. Torres for the purposes of medical clearance. I accept that physical as correct and adequate for the purposes of the inpatient physical exam. Results & Data ([facility]) Laboratory Results Laboratory Results - last 24 hr 08/01/22 08/01/22 08/01/22 12:44 12:44 12:44 WBC RBC Hgb Hct MCV MCH MCHC RDW Std Deviation RDW Coeff of Zakiya Plt Count MPV Immature Gran % (Auto) Neut % (Auto) Lymph % (Auto) Mobile % (Auto) Eos % (Auto) Baso % (Auto) Neut # (Auto) Lymph # (Auto) Mobile # (Auto) Eos # (Auto) Baso # (Auto) Immature Gran # (Auto) Sodium Potassium Chloride Carbon Dioxide Anion Gap BUN Creatinine Est Cr Clr Drug Dosing Est GFR ( Amer) Est GFR (Non-Af Amer) BUN/Creatinine Ratio Glucose Calcium Total Bilirubin AST ALT Alkaline Phosphatase Total Protein Albumin Globulin Albumin/Globulin Ratio TSH Urine Color Yellow Urine Appearance Cloudy A Urine pH 6.5 Ur Specific [place] 1.021 Urine Protein Negative Urine Glucose (UA) Negative Urine Ketones Trace H Urine Blood Negative Urine Nitrite Negative Urine Bilirubin Negative Urine Urobilinogen Negative Ur Leukocyte Esterase 2+ H Urine WBC (Auto) 10-30 H Urine RBC (Auto) 0-4 U Hyaline Cast (Auto) 5-10 H U Epithel Cells (Auto) >30 H Urine Bacteria (Auto) 4+ H Salicylates Urine Opiates Screen Neg Ur Methadone, Qual Neg Acetaminophen Urine Barbiturates Neg Ur Phencyclidine (PCP) Neg U Amphetamin/Meth Scrn Neg MDMA (Ecstasy) Screen Neg U Benzodiazepines Scrn Neg Ur Cocaine Metabolite Neg U Marijuana (THC) Screen Neg Ethyl Alcohol mg/dL SARS-CoV-2, RNA, NAAT NEGATIVE 08/01/22 08/01/22 08/01/22 12:49 12:49 12:49 WBC 7.68 RBC 4.94 Hgb 15.0 Hct 44.2 MCV 89.5 MCH 30.4 MCHC 33.9 RDW Std Deviation 40.0 RDW Coeff of Zakiya 12.2 Plt Count 192 MPV 10.6 Immature Gran % (Auto) 0.4 Neut % (Auto) 66.2 Lymph % (Auto) 25.3 Mobile % (Auto) 6.3 Eos % (Auto) 1.3 Baso % (Auto) 0.5 Neut # (Auto) 5.09 Lymph # (Auto) 1.94 Mobile # (Auto) 0.48 Eos # (Auto) 0.10 Baso # (Auto) 0.04 Immature Gran # (Auto) 0.03 Sodium 140 Potassium 3.9 Chloride 109 H Carbon Dioxide 24 Anion Gap 7 BUN 18 Creatinine 0.81 Est Cr Clr Drug Dosing Not Reportable Est GFR ( Amer) 89.0 Est GFR (Non-Af Amer) 76.8 BUN/Creatinine Ratio 22.2 H Glucose 141 H Calcium 9.7 Total Bilirubin 1.0 AST 26 ALT 32 Alkaline Phosphatase 99 Total Protein 7.5 Albumin 4.5 Globulin 3.0 Albumin/Globulin Ratio 1.5 TSH 1.271 Urine Color Urine Appearance Urine pH Ur Specific [place] Urine Protein Urine Glucose (UA) Urine Ketones Urine Blood Urine Nitrite Urine Bilirubin Urine Urobilinogen Ur Leukocyte Esterase Urine WBC (Auto) Urine RBC (Auto) U Hyaline Cast (Auto) U Epithel Cells (Auto) Urine Bacteria (Auto) Salicylates Urine Opiates Screen Ur Methadone, Qual Acetaminophen Urine Barbiturates Ur Phencyclidine (PCP) U Amphetamin/Meth Scrn MDMA (Ecstasy) Screen U Benzodiazepines Scrn Ur Cocaine Metabolite U Marijuana (THC) Screen Ethyl Alcohol mg/dL SARS-CoV-2, RNA, NAAT 08/01/22 08/01/22 12:49 12:49 WBC RBC Hgb Hct MCV MCH MCHC RDW Std Deviation RDW Coeff of Zakiya Plt Count MPV Immature Gran % (Auto) Neut % (Auto) Lymph % (Auto) Mobile % (Auto) Eos % (Auto) Baso % (Auto) Neut # (Auto) Lymph # (Auto) Mobile # (Auto) Eos # (Auto) Baso # (Auto) Immature Gran # (Auto) Sodium Potassium Chloride Carbon Dioxide Anion Gap BUN Creatinine Est Cr Clr Drug Dosing Est GFR ( Amer) Est GFR (Non-Af Amer) BUN/Creatinine Ratio Glucose Calcium Total Bilirubin AST ALT Alkaline Phosphatase Total Protein Albumin Globulin Albumin/Globulin Ratio TSH Urine Color Urine Appearance Urine pH Ur Specific [place] Urine Protein Urine Glucose (UA) Urine Ketones Urine Blood Urine Nitrite Urine Bilirubin Urine Urobilinogen Ur Leukocyte Esterase Urine WBC (Auto) Urine RBC (Auto) U Hyaline Cast (Auto) U Epithel Cells (Auto) Urine Bacteria (Auto) Salicylates < 3.0 L Urine Opiates Screen Ur Methadone, Qual Acetaminophen < 3 L Urine Barbiturates Ur Phencyclidine (PCP) U Amphetamin/Meth Scrn MDMA (Ecstasy) Screen U Benzodiazepines Scrn Ur Cocaine Metabolite U Marijuana (THC) Screen Ethyl Alcohol mg/dL < 10.0 SARS-CoV-2, RNA, NAAT Current Inpatient Medications Current Inpatient Medications: Current Inpatient Medications Acetaminophen (Acetaminophen 325 Mg Tab) 650 mg PO Q4H PRN PRN Reason: Headache or Minor Fever Stop: 08/31/22 20:49 Last Admin: 08/01/22 21:28 Dose: 650 mg Al Hydrox/Mg Hydrox/Simethicone (Aluminum/Magnesium Susp 30 Ml Udc) 30 ml PO Q4H PRN PRN Reason: GI Upset Stop: 08/31/22 20:49 Atorvastatin Calcium (Atorvastatin 20 Mg Tab) 20 mg PO HS DONNIE Stop: 08/31/22 21:59 Last Admin: 08/01/22 22:16 Dose: 20 mg Bismuth Subsalicylate (Bismuth Subsalicylate Liqd 236 Ml) 15 ml PO PRN PRN PRN Reason: Loose Stool Stop: 08/31/22 20:49 Docusate Sodium (Docusate Sodium 100 Mg Cap) 100 mg PO HS DONNIE Stop: 08/31/22 21:59 Last Admin: 08/01/22 22:19 Dose: 100 mg Gabapentin (Gabapentin 400 Mg Cap) 400 mg PO BID DONNIE Stop: 08/31/22 21:59 Last Admin: 08/01/22 22:17 Dose: 400 mg Hydroxyzine HCl (Hydroxyzine Hcl 25 Mg Tab) 50 mg PO HSZ PRN PRN Reason: Insomnia Stop: 08/31/22 20:49 Hydroxyzine HCl (Hydroxyzine Hcl 25 Mg Tab) 25 mg PO Q4H PRN PRN Reason: Anxiety Stop: 08/31/22 20:49 Last Admin: 08/02/22 05:40 Dose: 25 mg [place] Carbonate ([place] Carbonate 300 Mg Tab) 150 mg PO HS DONNIE Stop: 08/31/22 21:59 Last Admin: 08/01/22 22:17 Dose: 150 mg Magnesium Hydroxide (Magnesium Hydroxide Susp 30 Ml Udc) 30 ml PO DAILY PRN PRN Reason: Constipation Stop: 08/31/22 20:49 Sodium Chloride (Sodium Chloride 0.65% Na Soln 45 Ml ([place])) 1 - 2 sprays NA PRN PRN PRN Reason: Nasal Dryness/Congestion Stop: 08/31/22 20:49
[2022-08-02] MEDS: GABAPENTIN 400 MG CAP PO SCH ×2 (08:33→17:47)
[2022-08-02] MEDS: DEUTETRABENAZINE 9 MG PO SCH ×2 (11:38→21:09)
[2022-08-02] MEDS: LITHIUM CARBONATE 300 MG TAB PO SCH (16:18)
[2022-08-02] MEDS ORDERED: DEUTETRABENAZINE 12 MG PO SCH (21:00)
[2022-08-02] MEDS ORDERED: DEUTETRABENAZINE 9 MG PO SCH (21:00)
[2022-08-02] MEDS: cephALEXin 500 MG CAP PO SCH (21:05)
[2022-08-02] MEDS: DOCUSATE SODIUM 100 MG CAP PO SCH (21:06)
[2022-08-02] MEDS: ATORVASTATIN 20 MG TAB PO SCH (21:06)
[2022-08-02] MEDS: MELATONIN 3 MG TAB PO SCH (21:07)
[2022-08-03] MEDS: hydrOXYzine HCl 25 MG TAB PO PRN (05:55)
[2022-08-03] MEDS: LEVOTHYROXINE SODIUM 50 MCG TABLET PO SCH (07:42)
[2022-08-03] MEDS: cephALEXin 500 MG CAP PO SCH ×2 (07:43→21:31)
[2022-08-03] MEDS: ASPIRIN 81 MG ECTAB PO SCH (07:43)
[2022-08-03] MEDS: LITHIUM CARBONATE 300 MG TAB PO SCH (07:44)
[2022-08-03] MEDS: GABAPENTIN 400 MG CAP PO SCH ×2 (07:44→17:26)
[2022-08-03] MEDS: DEUTETRABENAZINE 12 MG PO SCH ×2 (07:45→21:32)
--- NOTE | 2022-08-03 14:05 | Psychiatric Progress Note ---
Date of Service August 03, 2022 Impression / Recommendations Impression 62 year old woman with a history of schizoaffective disorder, tardive dyskinesia, anxiety, falls and confusion/delirium with past UTIs who was admitted for worsening sleep, mood changes with SI with plan and confusion. Diagnostically consistent with unspecified psychosis, differential includes exacerbation of schizoaffective disorder vs delirium 2/2 UTI vs mixed episode of bipolar disorder vs cognitive process vs major depressive episode. She is deemed unstable and requires psychiatric hospitalization for diagnostic clarification, safety and stabilization, medication management and development of further copi ng skills. MNPR due to high levels of irritability, posturing, paranoia, delusions 08/03/2022: Very poor sleep, irritability, ongoing confusion and delusions with differential of delirium from UTI vs alison/mixed episode of BPAD. Given history of NMS holding off on any antipsychotics but encourage use of trazodone tonight to see if this will help with sleep. Ideally will increase [place] but for now cautious to do so without further collateral given reported history of extreme medication sensitivity and baseline severe tremor. Call left for her outpatient psychiatric provider to discuss past medication trials and if she's ever been on a higher dose of Li in the past. (1) Unspecified psychosis not due to a substance or known physiological condition: (2) UTI (urinary tract infection): Plan 08/03/2022: Li level tonight at 9pm for 12 hour trough. 08/02/2022: The patient was admitted to the [facility] ([facility] mental health unit) on q15 min checks (behavioral with suicide precautions) for safety. The patient will participate in group, recreational, and milieu therapies and will be offered additional individual and family sessions as clinically appropriate. -Continue prior to admission: [place] 150mg daily (long standing dose), deutetrabenazine 9mg BID for one more day and then increase to 12mg BID tomorrow, gabapentin 400mg BIDM -Hold temazepam -Trazodone 50mg HS prn for insomnia -[place] level tomorrow evening for 12 hour trough -Keflex 500mg BID for 5 more doses (3 days total) per ED provider recommendations for UTI given positive culture results Inventory Assets Strengths: supportive relationships, willing to get treatment Needs: safety and stabilization, medication adjustment, additional coping skills, increased outpatient services Suicide Risk Level Suicide Risk Level: High-Moderate (q15 min suicide checks) (psychosis, confusion and periods of tearfulness with SI with plan prior to admission but today denies SI and feels safe in the hospital, agrees to let nursing/staff know should they develop plan, intent or feel unable to remain safe. ) Risk Factors Assessment : Yes Do You Have Access To A Gun?: No Health Problems: Yes Mental Health Diagnoses: Yes Previous Attempt: No Previous Psychiatric Hospitalization: Yes Protective Factors Assessment : Yes Employed: No Stable Relationships: Yes Supportive Family: Yes Good Rapport with Provider: Yes Interval History Identifying Information ALVARO FRAIRE is a 62-year-old woman who currently lives in [place] with her , has a history of schizoaffective disorder, tardive dyskinesia, generalized anxiety disorder, and was admitted on 08/01/22 20:50 on a 201 voluntary commitment for increased confusion, psychosis and depression with SI. Chief Complaint "Not good". Review of Systems Sleep Information Total Hours of Sleep: 1.5 Meal Information Percent Meal Consumed - Breakfast: 0 Percent Meal Consumed - Lunch: 50 Nutrition Comment: did eat fruit and bite of cookie, refused meal (pizza) Subjective Subjective Patient was seen & assessed and interval progress reviewed with treatment team nursing and social work. Restless overnight, only slept about 1.5 hours with periods of confusion requiring frequent nursing redirection. Blocked one RN in the medication room as she would not move away from the door until other RNs intervened seemingly due to confusion versus delusions. Continues to make statements at times that she believes she will be killed or not that she's harmed other people. Later in the morning made statement of wondering if she had hurt people and then stating she thinks maybe she should hurt herself. Very disorganized. Significant shaking and unsteady on her feet, in part because she will close her eyes when walking. Did eat lunch after significant encouragement. Physical Exam Psychiatric Orientation: alert, oriented to person, oriented to place and + guarded Apperance: appropriately dressed and + disheveled Eye Contact: + fair eye contact Motor Behavior: + EPS (significant tardive dyskinesia of hands and feet); + abnormal motor movements Speech: + abnormal rate/rhythm/volume of speech (brief) Affect: + blunted affect and + irritable affect Mood: + depressed mood, + anxious mood and + irritable mood Thought Process: + concrete thought process (brief) Thought Content: + paranoid and + delusions Suicidal Thoughts: denies suicidal plan and denies suicidal intent; + reports suicidal thoughts (intermittent ) Homicidal Thoughts: denies homicidal thoughts Hallucinations: + auditory hallucinations; no visual hallucinations Cognition: recent memory grossly intact, remote memory grossly intact and language grossly intact; + attention not intact Estimated Intelligence: consistent with education level Insight: + limited insight Judgment: + severely impaired judgement Vital Signs (Past 24 Hours) Last Vital Signs Temp 37.2 C 08/03/22 07:13 Pulse 75 08/03/22 07:13 Resp 18 08/03/22 07:13 BP 162/125 H 08/03/22 07:13 Pulse Ox 96 08/02/22 06:00 O2 Del Method Room Air 08/02/22 06:00 Results & Data ([facility]) Current Inpatient Medications Current Inpatient Medications: Current Inpatient Medications Acetaminophen (Acetaminophen 325 Mg Tab) 650 mg PO Q4H PRN PRN Reason: Headache or Minor Fever Stop: 08/31/22 20:49 Last Admin: 08/01/22 21:28 Dose: 650 mg Al Hydrox/Mg Hydrox/Simethicone (Aluminum/Magnesium Susp 30 Ml Udc) 30 ml PO Q4H PRN PRN Reason: GI Upset Stop: 08/31/22 20:49 Aspirin (Aspirin 81 Mg Ectab) 81 mg PO DAILY [facility] Stop: 09/02/22 08:59 Last Admin: 08/03/22 07:43 Dose: 81 mg Atorvastatin Calcium (Atorvastatin 20 Mg Tab) 20 mg PO HS [facility] Stop: 09/01/22 21:59 Last Admin: 08/02/22 21:06 Dose: 20 mg Bismuth Subsalicylate (Bismuth Subsalicylate Liqd 236 Ml) 15 ml PO PRN PRN PRN Reason: Loose Stool Stop: 08/31/22 20:49 Cephalexin HCl (Cephalexin 500 Mg Cap) 500 mg PO BID [facility]; Protocol Stop: 08/04/22 21:01 Last Admin: 08/03/22 07:43 Dose: 500 mg Docusate Sodium (Docusate Sodium 100 Mg Cap) 100 mg PO HS [facility] Stop: 09/01/22 21:59 Last Admin: 08/02/22 21:06 Dose: 100 mg Gabapentin ([facility] 400 Mg Cap) [facility] Stop: 09/01/22 17:44 Last Admin: 08/03/22 07:44 Dose: 400 mg Hydroxyzine HCl (Hydroxyzine Hcl 25 Mg Tab) 50 mg PO HSZ PRN PRN Reason: Insomnia Stop: 08/31/22 20:49 Hydroxyzine HCl (Hydroxyzine Hcl 25 Mg Tab) 25 mg PO Q4H PRN PRN Reason: Anxiety Stop: 08/31/22 20:49 Last Admin: 08/03/22 05:55 Dose: 25 mg Levothyroxine Sodium (Levothyroxine Sodium 50 Mcg Tablet) 50 mcg PO DAILYBB [facility] Stop: 09/02/22 07:59 Last Admin: 08/03/22 07:42 Dose: 50 mcg [place] Carbonate ([place] Carbonate 300 Mg Tab) 150 mg PO DAILY [facility] Stop: 09/01/22 15:14 Last Admin: 08/03/22 07:44 Dose: 150 mg Magnesium Hydroxide (Magnesium Hydroxide Susp 30 Ml Udc) 30 ml PO DAILY PRN PRN Reason: Constipation Stop: 08/31/22 20:49 Melatonin (Melatonin 3 Mg Tab) 6 mg PO HS [facility] Stop: 09/01/22 21:59 Last Admin: 08/02/22 21:07 Dose: 6 mg (Duetetrabenazine 12 Mg)-Non-Formulary Patient's Own Med 1 each PO BID [facility] Stop: 08/09/22 21:01 Last Admin: 08/03/22 07:45 Dose: 1 each Sodium Chloride (Sodium Chloride 0.65% Na Soln 45 Ml ([place])) 1 - 2 sprays NA PRN PRN PRN Reason: Nasal Dryness/Congestion Stop: 08/31/22 20:49 Trazodone HCl (Trazodone Hcl 50 Mg Tab) 50 mg PO HS PRN PRN Reason: Insomnia Stop: 09/01/22 21:59 Mental Health & Subst Abuse Tx Therapist Name of Therapist: N/A (2) UTI (urinary tract infection) Hematuria presence: without hematuria Urinary tract infection type: acute cystitis Qualified Code(s): N30.00 - Acute cystitis without hematuria
[2022-08-03] MEDS ORDERED: QUEtiapine FUMARATE 25 MG TABLET PO PRN (15:29)
[2022-08-03] MEDS: ATORVASTATIN 20 MG TAB PO SCH (21:33)
[2022-08-03] MEDS: DOCUSATE SODIUM 100 MG CAP PO SCH (21:33)
[2022-08-03] MEDS: MELATONIN 3 MG TAB PO SCH (21:33)
[2022-08-04] MEDS: traZODone HCL 50 MG TAB PO PRN ×2 (00:41→21:01)
[2022-08-04] MEDS: LEVOTHYROXINE SODIUM 50 MCG TABLET PO SCH (09:34)
[2022-08-04] MEDS: ASPIRIN 81 MG ECTAB PO SCH (09:34)
[2022-08-04] MEDS: GABAPENTIN 400 MG CAP PO SCH ×2 (09:35→17:18)
[2022-08-04] MEDS: cephALEXin 500 MG CAP PO SCH ×2 (09:35→21:01)
[2022-08-04] MEDS: DEUTETRABENAZINE 12 MG PO SCH ×2 (09:37→21:02)
[2022-08-04] MEDS: LITHIUM CARBONATE 300 MG TAB PO SCH ×2 (10:35→21:02)
--- NOTE | 2022-08-04 11:49 | Psychiatric Progress Note ---
Date of Service August 04, 2022 Impression / Recommendations Impression 62 year old woman with a history of schizoaffective disorder, tardive dyskinesia, anxiety, falls and confusion/delirium with past UTIs who was admitted for worsening sleep, mood changes with SI with plan and confusion. Diagnostically consistent with unspecified psychosis, differential includes exacerbation of schizoaffective disorder vs delirium 2/2 UTI vs mixed episode of bipolar disorder vs cognitive process vs major depressive episode. She is deemed unstable and requires psychiatric hospitalization for diagnostic clarification, safety and stabilization, medication management and development of further copi ng skills. MNPR due to high levels of irritability, posturing, paranoia, delusions 08/04/2022: Ongoing very poor sleep (though did nap for a few hours during the day), irritability, ongoing confusion and delusions with differential of delirium from UTI vs alison/mixed episode of BPAD. Discussed with her outpatient psychiatric provider who noted history of [place] toxicity, history of NMS (thou gh not clear what antipsychotic or dose caused this reaction). Per outpatient records may have tolerated seroquel in the past but unclear. Given that she continues to have periods of slight vital signs abnormalities (likely due to UTI vs lack of sleep vs psychomotor agitation) the risk of using an antipsychotic at this time is deemed too high as it would be difficult to determine if NMS was occurring and she cannot easily participate with a physical exam if vital sign changes occurred. rather given good history of [place] tolerability and long- term stability with this and very low Li level of 0.2, will increase Li dose with goal of addressing likely alison. As she becomes more organized can then attempt use of antipsychotics or other more sedating medication options to further promote sleep. (1) Unspecified psychosis not due to a substance or known physiological condition: (2) UTI (urinary tract infection): Plan 08/04/2022: Increased [place] to 150mg BID. 08/03/2022: Li level tonight at 9pm for 12 hour trough. 08/02/2022: The patient was admitted to the [facility] ([facility] mental health unit) on q15 min checks (behavioral with suicide precautions) for safety. The patient will participate in group, recreational, and milieu therapies and will be offered additional individual and family sessions as clinically appropriate. -Continue prior to admission: [place] 150mg daily (long standing dose), deutetrabenazine 9mg BID for one more day and then increase to 12mg BID tomorrow, gabapentin 400mg BIDM -Hold temazepam -Trazodone 50mg HS prn for insomnia -[place] level tomorrow evening for 12 hour trough -Keflex 500mg BID for 5 more doses (3 days total) per ED provider recommendations for UTI given positive culture results Inventory Assets Strengths: supportive relationships, willing to get treatment Needs: safety and stabilization, medication adjustment, additional coping skills, increased outpatient services Suicide Risk Level Suicide Risk Level: High-Moderate (q15 min suicide checks) (psychosis, confusion and periods of tearfulness with SI with plan prior to admission but today denies SI and feels safe in the hospital, agrees to let nursing/staff know should they develop plan, intent or feel unable to remain safe. ) Risk Factors Assessment : Yes Do You Have Access To A Gun?: No Health Problems: Yes Mental Health Diagnoses: Yes Previous Attempt: No Previous Psychiatric Hospitalization: Yes Protective Factors Assessment : Yes Employed: No Stable Relationships: Yes Supportive Family: Yes Good Rapport with Provider: Yes Interval History Identifying Information ALVARO FRAIRE is a 62-year-old woman who currently lives in [place] with her , has a history of schizoaffective disorder, tardive dyskinesia, generalized anxiety disorder, and was admitted on 08/01/22 20:50 on a 201 voluntary commitment for increased confusion, psychosis and depression with SI. Chief Complaint "fine". Review of Systems Sleep Information Total Hours of Sleep: 1 Sleep Comments: Received Trazodone for sleep Meal Information Percent Meal Consumed - Breakfast: 0 Percent Meal Consumed - Lunch: 10 Percent Meal Consumed - Dinner: 70 Nutrition Comment: Assist x1 Subjective Subjective Patient was seen & assessed and interval progress reviewed with treatment team nursing and social work. Hardly slept last night even with trazodone prn. Had a fall overnight, was evaluated by RN and no signs of neurological changes, no evidence for head trauma, no evidence for other injuries. Today slept some during the middle of the day. Ate meals with encouragement. Spent much of the day in her bed. Reports feeling "fine" otherwise unable to elaborate and doesn't respond to any other questions just looks at me, appears to be possibly responding to internal stimuli. Physical Exam Psychiatric Orientation: alert, oriented to person, oriented to place and + guarded Apperance: appropriately dressed and + disheveled Eye Contact: + fair eye contact Motor Behavior: + EPS (significant tardive dyskinesia of hands and feet, some tongue protrusions) ); + abnormal motor movements Speech: + abnormal rate/rhythm/volume of speech (brief) Affect: + blunted affect and + irritable affect Mood: + depressed mood, + anxious mood and + irritable mood Thought Process: + concrete thought process (brief) Thought Content: + paranoid and + delusions Suicidal Thoughts: denies suicidal plan and denies suicidal intent; + reports suicidal thoughts (intermittent ) Homicidal Thoughts: denies homicidal thoughts Hallucinations: + auditory hallucinations; no visual hallucinations Cognition: recent memory grossly intact, remote memory grossly intact and language grossly intact; + attention not intact Estimated Intelligence: consistent with education level Insight: + limited insight Judgment: + severely impaired judgement Vital Signs (Past 24 Hours) Last Vital Signs Temp 36.7 C 08/04/22 02:45 Pulse 103 H 08/04/22 02:45 Resp 18 08/04/22 02:45 BP 124/82 08/04/22 02:45 Pulse Ox 96 08/04/22 02:45 O2 Del Method Room Air 08/04/22 02:45 Results & Data ([facility]) Laboratory Results Laboratory Results - last 24 hr 08/03/22 21:37 [place] 0.2 L Current Inpatient Medications Current Inpatient Medications: Current Inpatient Medications Acetaminophen (Acetaminophen 325 Mg Tab) 650 mg PO Q4H PRN PRN Reason: Headache or Minor Fever Stop: 08/31/22 20:49 Last Admin: 08/01/22 21:28 Dose: 650 mg Al Hydrox/Mg Hydrox/Simethicone (Aluminum/Magnesium Susp 30 Ml Udc) 30 ml PO Q4H PRN PRN Reason: GI Upset Stop: 08/31/22 20:49 Aspirin (Aspirin 81 Mg Ectab) 81 mg PO DAILY [facility] Stop: 09/02/22 08:59 Last Admin: 08/04/22 09:34 Dose: 81 mg Atorvastatin Calcium (Atorvastatin 20 Mg Tab) 20 mg PO HS [facility] Stop: 09/01/22 21:59 Last Admin: 08/03/22 21:33 Dose: 20 mg Bismuth Subsalicylate (Bismuth Subsalicylate Liqd 236 Ml) 15 ml PO PRN PRN PRN Reason: Loose Stool Stop: 08/31/22 20:49 Cephalexin HCl (Cephalexin 500 Mg Cap) 500 mg PO BID [facility]; Protocol Stop: 08/04/22 21:01 Last Admin: 08/04/22 09:35 Dose: 500 mg Docusate Sodium (Docusate Sodium 100 Mg Cap) 100 mg PO HS [facility] Stop: 09/01/22 21:59 Last Admin: 08/03/22 21:33 Dose: 100 mg Gabapentin (Gabapentin 400 Mg Cap) 400 mg PO BIDM [facility] Stop: 09/01/22 17:44 Last Admin: 08/04/22 09:35 Dose: 400 mg Hydroxyzine HCl (Hydroxyzine Hcl 25 Mg Tab) 50 mg PO HSZ PRN PRN Reason: Insomnia Stop: 08/31/22 20:49 Hydroxyzine HCl (Hydroxyzine Hcl 25 Mg Tab) 25 mg PO Q4H PRN PRN Reason: Anxiety Stop: 08/31/22 20:49 Last Admin: 08/03/22 05:55 Dose: 25 mg Levothyroxine Sodium (Levothyroxine Sodium 50 Mcg Tablet) 50 mcg PO DAILYBB [facility] Stop: 09/02/22 07:59 Last Admin: 08/04/22 09:34 Dose: 50 mcg [place] Carbonate ([place] Carbonate 300 Mg Tab) 150 mg PO DAILY [facility] Stop: 09/01/22 15:14 Last Admin: 08/04/22 10:35 Dose: 150 mg Magnesium Hydroxide (Magnesium Hydroxide Susp 30 Ml Udc) 30 ml PO DAILY PRN PRN Reason: Constipation Stop: 08/31/22 20:49 Melatonin (Melatonin 3 Mg Tab) 6 mg PO HS [facility] Stop: 09/01/22 21:59 Last Admin: 08/03/22 21:33 Dose: 6 mg (Duetetrabenazine 12 Mg)-Non-Formulary Patient's Own Med 1 each PO BID [facility] Stop: 08/09/22 21:01 Last Admin: 08/04/22 09:37 Dose: 12 mg Sodium Chloride (Sodium Chloride 0.65% Na Soln 45 Ml ([place])) 1 - 2 sprays NA PRN PRN PRN Reason: Nasal Dryness/Congestion Stop: 08/31/22 20:49 Trazodone HCl (Trazodone Hcl 50 Mg Tab) 50 mg PO HS PRN PRN Reason: Insomnia Stop: 09/01/22 21:59 Last Admin: 08/04/22 00:41 Dose: 50 mg Mental Health & Subst Abuse Tx Therapist Name of Therapist: N/A (2) UTI (urinary tract infection) Hematuria presence: without hematuria Urinary tract infection type: acute cystitis Qualified Code(s): N30.00 - Acute cystitis without hematuria
[2022-08-04] MEDS: ATORVASTATIN 20 MG TAB PO SCH (21:03)
[2022-08-04] MEDS: DOCUSATE SODIUM 100 MG CAP PO SCH (21:03)
[2022-08-04] MEDS: MELATONIN 3 MG TAB PO SCH (21:03)
[2022-08-05] MEDS: hydrOXYzine HCl 25 MG TAB PO PRN (07:37)
[2022-08-05] MEDS: LEVOTHYROXINE SODIUM 50 MCG TABLET PO SCH (08:34)
[2022-08-05] MEDS: ASPIRIN 81 MG ECTAB PO SCH (08:34)
[2022-08-05] MEDS: LITHIUM CARBONATE 300 MG TAB PO SCH ×2 (08:35→21:18)
[2022-08-05] MEDS: GABAPENTIN 400 MG CAP PO SCH ×2 (08:35→17:30)
[2022-08-05] MEDS: DEUTETRABENAZINE 12 MG PO SCH ×2 (08:36→21:18)
--- NOTE | 2022-08-05 20:33 | Psychiatric Progress Note ---
Date of Service August 05, 2022 Impression / Recommendations Impression 62 year old woman with a history of schizoaffective disorder, tardive dyskinesia, anxiety, falls and confusion/delirium with past UTIs who was admitted for worsening sleep, mood changes with SI with plan and confusion. Diagnostically consistent with unspecified psychosis, differential includes exacerbation of schizoaffective disorder vs delirium 2/2 UTI vs mixed episode of bipolar disorder vs cognitive process vs major depressive episode. She is deemed unstable and requires psychiatric hospitalization for diagnostic clarification, safety and stabilization, medication management and development of further copi ng skills. MNPR due to high levels of irritability, posturing, paranoia, delusions 08/05/2022: Ongoing very poor sleep (though did nap briefly during the day), odd statements, ongoing confusion and delusions seems like alison/mixed episode of BPAD. So far tolerating higher dose of [place] but given ongoing poor sleep will trial very low dose seroquel tonight in effort to help with sleep and ma magda/mixed episode. (1) Unspecified psychosis not due to a substance or known physiological condition: (2) UTI (urinary tract infection): Plan 08/05/2022: Start seroquel 12.5mg HS 08/04/2022: Increased [place] to 150mg BID. 08/03/2022: Li level tonight at 9pm for 12 hour trough. 08/02/2022: The patient was admitted to the [facility] ([facility] mental health unit) on q15 min checks (behavioral with suicide precautions) for safety. The patient will participate in group, recreational, and milieu therapies and will be offered additional individual and family sessions as clinically appropriate. -Continue prior to admission: [place] 150mg daily (long standing dose), deutetrabenazine 9mg BID for one more day and then increase to 12mg BID tomorrow, gabapentin 400mg BIDM -Hold temazepam -Trazodone 50mg HS prn for insomnia -[place] level tomorrow evening for 12 hour trough -Keflex 500mg BID for 5 more doses (3 days total) per ED provider recommendations for UTI given positive culture results Inventory Assets Strengths: supportive relationships, willing to get treatment Needs: safety and stabilization, medication adjustment, additional coping skills, increased outpatient services Suicide Risk Level Suicide Risk Level: Moderate (q15 min suicide checks) (psychosis, confusion and periods of tearfulness with SI with plan prior to admission but no recent SI and feels safe in the hospital, agrees to let nursing/staff know should they develop plan, intent or feel unable to remain safe. ) Risk Factors Assessment : Yes Do You Have Access To A Gun?: No Health Problems: Yes Mental Health Diagnoses: Yes Previous Attempt: No Previous Psychiatric Hospitalization: Yes Protective Factors Assessment : Yes Employed: No Stable Relationships: Yes Supportive Family: Yes Good Rapport with Provider: Yes Interval History Identifying Information ALVARO FRAIRE is a 62-year-old woman who currently lives in [place] with her , has a history of schizoaffective disorder, tardive dyskinesia, generalized anxiety disorder, and was admitted on 08/01/22 20:50 on a 201 voluntary commitment for increased confusion, psychosis and depression with SI. Chief Complaint "Good". Review of Systems Sleep Information Total Hours of Sleep: 3.75 Sleep Comments: Received Trazodone for sleep Meal Information Percent Meal Consumed - Breakfast: 0 Percent Meal Consumed - Lunch: 0 Percent Meal Consumed - Dinner: 10 Nutrition Comment: Subjective Subjective Patient was seen & assessed and interval progress reviewed with treatment team nursing and social work. Ongoing poor sleep, confusion, periods of bowel incontinence. Speech remains very latent but states her mood is "good" this afternoon and denies any urinary symptoms now that antibiotic is completed. However, earlier in the day was wandering on the unit and making odd statements about "burn that shed down" and concerns she had hurt someone. Tells me she continues to hear voices that tell her "I need help". Denies any new side effects from [place] dose. Still with limited po intake. Physical Exam Psychiatric Orientation: alert, oriented to person, oriented to place and + guarded Apperance: appropriately dressed and + disheveled Eye Contact: + fair eye contact Motor Behavior: + EPS (significant tardive dyskinesia of hands and feet, some tongue protrusions) ); + abnormal motor movements Speech: + abnormal rate/rhythm/volume of speech (brief) Affect: + blunted affect and + irritable affect Mood: + depressed mood, + anxious mood and + irritable mood Thought Process: + concrete thought process (brief) Thought Content: + paranoid and + delusions Suicidal Thoughts: denies suicidal thoughts, denies suicidal plan and denies suicidal intent Homicidal Thoughts: denies homicidal thoughts Hallucinations: + auditory hallucinations; no visual hallucinations Cognition: recent memory grossly intact, remote memory grossly intact and language grossly intact; + attention not intact Estimated Intelligence: consistent with education level Insight: + limited insight Judgment: + severely impaired judgement Vital Signs (Past 24 Hours) Last Vital Signs Temp 36.6 C 08/05/22 20:00 Pulse 111 H 08/05/22 20:17 Resp 18 08/05/22 20:17 BP 139/85 08/05/22 20:17 Pulse Ox 97 08/05/22 20:17 O2 Del Method Room Air 08/05/22 20:17 Results & Data ([facility]) Current Inpatient Medications Current Inpatient Medications: Current Inpatient Medications Acetaminophen (Acetaminophen 325 Mg Tab) 650 mg PO Q4H PRN PRN Reason: Headache or Minor Fever Stop: 08/31/22 20:49 Last Admin: 08/01/22 21:28 Dose: 650 mg Al Hydrox/Mg Hydrox/Simethicone (Aluminum/Magnesium Susp 30 Ml Udc) 30 ml PO Q4H PRN PRN Reason: GI Upset Stop: 08/31/22 20:49 Aspirin (Aspirin 81 Mg Ectab) 81 mg PO DAILY [facility] Stop: 09/02/22 08:59 Last Admin: 08/05/22 08:34 Dose: 81 mg Atorvastatin Calcium (Atorvastatin 20 Mg Tab) 20 mg PO HS [facility] Stop: 09/01/22 21:59 Last Admin: 08/04/22 21:03 Dose: 20 mg Bismuth Subsalicylate (Bismuth Subsalicylate Liqd 236 Ml) 15 ml PO PRN PRN PRN Reason: Loose Stool Stop: 08/31/22 20:49 Docusate Sodium (Docusate Sodium 100 Mg Cap) 100 mg PO HS DONNIE Stop: 09/01/22 21:59 Last Admin: 08/04/22 21:03 Dose: 100 mg Gabapentin (Gabapentin 400 Mg Cap) 400 mg PO BIDM DONNIE Stop: 09/01/22 17:44 Last Admin: 08/05/22 17:30 Dose: 400 mg Hydroxyzine HCl (Hydroxyzine Hcl 25 Mg Tab) 50 mg PO HSZ PRN PRN Reason: Insomnia Stop: 08/31/22 20:49 Hydroxyzine HCl (Hydroxyzine Hcl 25 Mg Tab) 25 mg PO Q4H PRN PRN Reason: Anxiety Stop: 08/31/22 20:49 Last Admin: 08/05/22 07:37 Dose: 25 mg Levothyroxine Sodium (Levothyroxine Sodium 50 Mcg Tablet) 50 mcg PO DAILYBB DONNIE Stop: 09/02/22 07:59 Last Admin: 08/05/22 08:34 Dose: 50 mcg [place] Carbonate ([place] Carbonate 300 Mg Tab) 150 mg PO BID DONNIE Stop: 09/03/22 20:59 Last Admin: 08/05/22 08:35 Dose: 150 mg Magnesium Hydroxide (Magnesium Hydroxide Susp 30 Ml Udc) 30 ml PO DAILY PRN PRN Reason: Constipation Stop: 08/31/22 20:49 Melatonin (Melatonin 3 Mg Tab) 6 mg PO HS DONNIE Stop: 09/01/22 21:59 Last Admin: 08/04/22 21:03 Dose: 6 mg (Duetetrabenazine 12 Mg)-Non-Formulary Patient's Own Med 1 each PO BID DONNIE Stop: 08/09/22 21:01 Last Admin: 08/05/22 08:36 Dose: 12 mg Sodium Chloride (Sodium Chloride 0.65% Na Soln 45 Ml ([place])) 1 - 2 sprays NA PRN PRN PRN Reason: Nasal Dryness/Congestion Stop: 08/31/22 20:49 Trazodone HCl (Trazodone Hcl 50 Mg Tab) 50 mg PO HS PRN PRN Reason: Insomnia Stop: 09/01/22 21:59 Last Admin: 08/04/22 21:01 Dose: 50 mg Mental Health & Subst Abuse Tx Psychiatrist Name of Psychiatrist: Jorge Pearson Date Of Appointment With Psychiatric Provider: 08/12/2022 Time of Appointment with Psychiatrist: 10am Therapist Name of Therapist: N/A (2) UTI (urinary tract infection) Hematuria presence: without hematuria Urinary tract infection type: acute cystitis Qualified Code(s): N30.00 - Acute cystitis without hematuria
[2022-08-05] MEDS: ATORVASTATIN 20 MG TAB PO SCH (21:18)
[2022-08-05] MEDS: MELATONIN 3 MG TAB PO SCH (21:19)
[2022-08-05] MEDS: DOCUSATE SODIUM 100 MG CAP PO SCH (21:19)
[2022-08-05] MEDS: QUEtiapine FUMARATE 25 MG TABLET PO SCH (21:22)
--- NOTE | 2022-08-06 09:02 | Psychiatric Progress Note ---
Date of Service August 06, 2022 Impression / Recommendations Impression 62 year old woman with a history of schizoaffective disorder, tardive dyskinesia, anxiety, falls and confusion/delirium with past UTIs who was admitted for worsening sleep, mood changes with SI with plan and confusion. Diagnostically consistent with unspecified psychosis, differential includes exacerbation of schizoaffective disorder vs delirium 2/2 UTI vs mixed episode of bipolar disorder vs cognitive process vs major depressive episode. She is deemed unstable and requires psychiatric hospitalization for diagnostic clarification, safety and stabilization, medication management and development of further copi ng skills. MNPR due to high levels of irritability, posturing, paranoia, delusions 08/06/2022: Slept much better last night after addition of low dose seroquel without any signs for side effects or NMS. In fact TD movements are better today and she seems calmer. No evidence for side effects to lithium. Ongoing poor po intake and more mute today but no other signs to suggest catatonia-no postu ring/stereotypies/cataplexy,echolalia/echopraxia or mannerisms. Still seems most suggestive of mixed episode of BPAD versus resolving delirium from UTI. (1) Unspecified psychosis not due to a substance or known physiological condition: (2) UTI (urinary tract infection): Plan 08/06/2022: Continue current medications and treatment plan. [place]ement level ordered for 08/09/2022 prior to AM dose. 08/05/2022: Start seroquel 12.5mg HS 08/04/2022: Increased [place] to 150mg BID. 08/03/2022: Li level tonight at 9pm for 12 hour trough. 08/02/2022: The patient was admitted to the [facility] ([facility] mental health unit) on q15 min checks (behavioral with suicide precautions) for safety. The patient will participate in group, recreational, and milieu therapies and will be offered additional individual and family sessions as clinically appropriate. -Continue prior to admission: [place] 150mg daily (long standing dose), deutetrabenazine 9mg BID for one more day and then increase to 12mg BID tomorrow, gabapentin 400mg BIDM -Hold temazepam -Trazodone 50mg HS prn for insomnia -[place] level tomorrow evening for 12 hour trough -Keflex 500mg BID for 5 more doses (3 days total) per ED provider recommendations for UTI given positive culture results Inventory Assets Strengths: supportive relationships, willing to get treatment Needs: safety and stabilization, medication adjustment, additional coping skills, incre ased outpatient services Suicide Risk Level Suicide Risk Level: Moderate (q15 min suicide checks) (psychosis, confusion and periods of tearfulness with SI with plan prior to admission but no recent SI and feels safe in the hospital, agrees to let nursing/staff know should they develop plan, intent or feel unable to remain safe. ) Risk Factors Assessment : Yes Do You Have Access To A Gun?: No Health Problems: Yes Mental Health Diagnoses: Yes Previous Attempt: No Previous Psychiatric Hospitalization: Yes Protective Factors Assessment : Yes Employed: No Stable Relationships: Yes Supportive Family: Yes Good Rapport with Provider: Yes Interval History Identifying Information ALVARO FRAIRE is a 62-year-old woman who currently lives in [place] with her , has a history of schizoaffective disorder, tardive dyskinesia, generalized anxiety disorder, and was admitted on 08/01/22 20:50 on a 201 voluntary commitment for increased confusion, psychosis and depression with SI. Chief Complaint "alright". Review of Systems Sleep Information Total Hours of Sleep: 7 Sleep Comments: Meal Information Percent Meal Consumed - Breakfast: 0 Percent Meal Consumed - Lunch: 0 Percent Meal Consumed - Dinner: 10 Subjective Subjective Patient was seen & assessed and interval progress reviewed with treatment team nursing and social work. Slept 7 hours last night. Less tremulous today, able to sit with peers to watch a movie in the afternoon. Still with limited spontaneous speech, stating her mood was "alright" and responded "yeah" when asked if she had breakfast, otherwise did not respond to any other questions I asked her. Largely mute during attempts to speak with her. Physical Exam Psychiatric Orientation: alert, oriented to person, oriented to place and + guarded Apperance: appropriately dressed and + disheveled Eye Contact: + fair eye contact Motor Behavior: + EPS (significant tardive dyskinesia of hands and feet, some tongue protrusions) ); + abnormal motor movements Speech: + abnormal rate/rhythm/volume of speech (brief) Affect: + blunted affect Mood: + depressed mood, + anxious mood and + irritable mood Thought Process: + concrete thought process (brief) Thought Content: + paranoid and + delusions Suicidal Thoughts: denies suicidal thoughts, denies suicidal plan and denies suicidal intent Homicidal Thoughts: denies homicidal thoughts Hallucinations: + auditory hallucinations; no visual hallucinations Cognition: recent memory grossly intact, remote memory grossly intact and language grossly intact; + attention not intact Estimated Intelligence: consistent with education level Insight: + limited insight Judgment: + severely impaired judgement Vital Signs (Past 24 Hours) Last Vital Signs Temp 36.9 C 08/06/22 06:46 Pulse 101 H 08/06/22 06:46 Resp 18 08/06/22 06:46 BP 136/84 08/06/22 06:46 Pulse Ox 97 08/05/22 20:17 O2 Del Method Room Air 08/05/22 20:17 Results & Data ([facility]) Current Inpatient Medications Current Inpatient Medications: Current Inpatient Medications Acetaminophen (Acetaminophen 325 Mg Tab) 650 mg PO Q4H PRN PRN Reason: Headache or Minor Fever Stop: 08/31/22 20:49 Last Admin: 08/01/22 21:28 Dose: 650 mg Al Hydrox/Mg Hydrox/Simethicone (Aluminum/Magnesium Susp 30 Ml Udc) 30 ml PO Q4H PRN PRN Reason: GI Upset Stop: 08/31/22 20:49 Aspirin (Aspirin 81 Mg Ectab) 81 mg PO DAILY DONNIE Stop: 09/02/22 08:59 Last Admin: 08/05/22 08:34 Dose: 81 mg Atorvastatin Calcium (Atorvastatin 20 Mg Tab) 20 mg PO HS DONNIE Stop: 09/01/22 21:59 Last Admin: 08/05/22 21:18 Dose: 20 mg Bismuth Subsalicylate (Bismuth Subsalicylate Liqd 236 Ml) 15 ml PO PRN PRN PRN Reason: Loose Stool Stop: 08/31/22 20:49 Docusate Sodium (Docusate Sodium 100 Mg Cap) 100 mg PO HS DONNIE Stop: 09/01/22 21:59 Last Admin: 08/05/22 21:19 Dose: 100 mg Gabapentin (Gabapentin 400 Mg Cap) 400 mg PO BIDM DONNIE Stop: 09/01/22 17:44 Last Admin: 08/05/22 17:30 Dose: 400 mg Hydroxyzine HCl (Hydroxyzine Hcl 25 Mg Tab) 50 mg PO HSZ PRN PRN Reason: Insomnia Stop: 08/31/22 20:49 Hydroxyzine HCl (Hydroxyzine Hcl 25 Mg Tab) 25 mg PO Q4H PRN PRN Reason: Anxiety Stop: 08/31/22 20:49 Last Admin: 08/05/22 07:37 Dose: 25 mg Levothyroxine Sodium (Levothyroxine Sodium 50 Mcg Tablet) 50 mcg PO DAILYBB DONNIE Stop: 09/02/22 07:59 Last Admin: 08/05/22 08:34 Dose: 50 mcg Cement Carbonate (Cement Carbonate 300 Mg Tab) 150 mg PO BID DONNIE Stop: 09/03/22 20:59 Last Admin: 08/05/22 21:18 Dose: 150 mg Magnesium Hydroxide (Magnesium Hydroxide Susp 30 Ml Udc) 30 ml PO DAILY PRN PRN Reason: Constipation Stop: 08/31/22 20:49 Melatonin (Melatonin 3 Mg Tab) 6 mg PO HS DONNIE Stop: 09/01/22 21:59 Last Admin: 08/05/22 21:19 Dose: 6 mg (Duetetrabenazine 12 Mg)-Non-Formulary Patient's Own Med 1 each PO BID DONNIE Stop: 08/09/22 21:01 Last Admin: 08/05/22 21:18 Dose: 12 mg Quetiapine Fumarate (Quetiapine Fumarate 25 Mg Tablet) 12.5 mg PO HS DONNIE Stop: 09/04/22 21:59 Last Admin: 08/05/22 21:22 Dose: 12.5 mg Sodium Chloride (Sodium Chloride 0.65% Na Soln 45 Ml ([place])) 1 - 2 sprays NA PRN PRN PRN Reason: Nasal Dryness/Congestion Stop: 08/31/22 20:49 Trazodone HCl (Trazodone Hcl 50 Mg Tab) 50 mg PO HS PRN PRN Reason: Insomnia Stop: 09/01/22 21:59 Last Admin: 08/04/22 21:01 Dose: 50 mg Mental Health & Subst Abuse Tx Psychiatrist Name of Psychiatrist: Jorge Pearson Date Of Appointment With Psychiatric Provider: 08/12/2022 Time of Appointment with Psychiatrist: 10am Therapist Name of Therapist: N/A (2) UTI (urinary tract infection) Hematuria presence: without hematuria Urinary tract infection type: acute cystitis Qualified Code(s): N30.00 - Acute cystitis without hematuria
[2022-08-06] MEDS: LEVOTHYROXINE SODIUM 50 MCG TABLET PO SCH (09:31)
[2022-08-06] MEDS: GABAPENTIN 400 MG CAP PO SCH ×2 (09:31→17:15)
[2022-08-06] MEDS: ASPIRIN 81 MG ECTAB PO SCH (09:31)
[2022-08-06] MEDS: LITHIUM CARBONATE 300 MG TAB PO SCH ×2 (09:32→21:10)
[2022-08-06] MEDS: DEUTETRABENAZINE 12 MG PO SCH ×2 (09:33→21:09)
[2022-08-06] MEDS: QUEtiapine FUMARATE 25 MG TABLET PO SCH (21:07)
[2022-08-06] MEDS: DOCUSATE SODIUM 100 MG CAP PO SCH (21:08)
[2022-08-06] MEDS: ATORVASTATIN 20 MG TAB PO SCH (21:09)
[2022-08-06] MEDS: MELATONIN 3 MG TAB PO SCH (21:10)
[2022-08-07] MEDS: ASPIRIN 81 MG ECTAB PO SCH (10:21)
[2022-08-07] MEDS: LEVOTHYROXINE SODIUM 50 MCG TABLET PO SCH (10:21)
[2022-08-07] MEDS: GABAPENTIN 400 MG CAP PO SCH ×2 (10:22→17:49)
[2022-08-07] MEDS: LITHIUM CARBONATE 300 MG TAB PO SCH ×3 (10:22→20:54)
[2022-08-07] MEDS: DEUTETRABENAZINE 12 MG PO SCH ×2 (10:23→20:55)
--- NOTE | 2022-08-07 14:18 | Psychiatric Progress Note ---
Date of Service August 07, 2022 Impression / Recommendations Impression 62 year old woman with a history of schizoaffective disorder, tardive dyskinesia, anxiety, falls and confusion/delirium with past UTIs who was admitted for worsening sleep, mood changes with SI with plan and confusion. Diagnostically consistent with unspecified psychosis, differential includes exacerbation of schizoaffective disorder vs delirium 2/2 UTI vs mixed episode of bipolar disorder vs cognitive process vs major depressive episode. She is deemed unstable and requires psychiatric hospitalization for diagnostic clarification, safety and stabilization, medication management and development of further copi ng skills. MNPR due to high levels of irritability, posturing, paranoia, delusions 08/07/2022: Pt wanders the halls today in a repetitive loop. She did not participate in groups, though she did briefly enter the room and sit for a time. Has hardly eaten. I attempted multiple times to talk with pt. She did not stop or slow down, and when I blocked her path she simply turned around and walked away. She made no eye contact but I noted her looking at me with side glances. She did not appear to react in any way to anything I said nor did she say anything at all. She exhibited a marked parkinsonian-appearing tremor of her hands that appeared to vary in severity with observation (in that it was hardly noticeable when she didn't know she was being observed and was quite marked when it was obvious she was being observed). She continues to evidence no posturing, stereotypies, cataplexy, echopraxia, or mannerisms Reviewed [employer] pharmacogenetic testing report. 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 She appears to have had a significant response to low-dose quetiapine in the sense of less distress and less evidence of psychosis. She appears in some ways to have worsened over the course of her stay and we must remain open to the possibility this could represent adverse medication effects. 08/06/2022: Slept much better last night after addition of low dose seroquel without any signs for side effects or NMS. In fact TD movements are better today and she seems calmer. No evidence for side effects to lithium. Ongoing poor po intake and more mute today but no other signs to suggest catatonia-no posturing/stereotypies/cataplexy,echolalia/echopraxia or mannerisms. Still seems most suggestive of mixed episode of BPAD versus resolving delirium from UTI. (1) Unspecified psychosis not due to a substance or known physiological condition: (2) UTI (urinary tract infection): Plan 08/07/2022: * increase lithium to 150 mg TID given very low chance blood level is near therapeutic at BID dosing * lithium level in 2 days * continue quetiapine 12.5 mg QHS * continue deutetrabenazine 12 mg BID * continue trazodone 50 mg QHS 08/06/2022: Continue current medications and treatment plan. [place]ovi level ordered for 08/09/2022 prior to AM dose. 08/05/2022: Start seroquel 12.5mg HS 08/04/2022: Increased Shong[place]ovi to 150mg BID. 08/03/2022: Li level tonight at 9pm for 12 hour trough. 08/02/2022: The patient was admitted to the [facility] ([facility] unit) on q15 min checks (behavioral with suicide precautions) for safety. The patient will participate in group, recreational, and milieu therapies and will be offered additional individual and family sessions as clinically appropriate. -Continue prior to admission: Shongopovi 150mg daily (long standing dose), deutetrabenazine 9mg BID for one more day and then increase to 12mg BID tomorrow, gabapentin 400mg BIDM -Hold temazepam -Trazodone 50mg HS prn for insomnia -[place] level tomorrow evening for 12 hour trough -Keflex 500mg BID for 5 more doses (3 days total) per ED provider recommendations for UTI given positive culture results Inventory Assets Strengths: supportive relationships, willing to get treatment Needs: safety and stabilization, medication adjustment, additional coping skills, increased outpatient services Suicide Risk Level Suicide Risk Level: Moderate (q15 min suicide checks) (psychosis, confusion and periods of tearfulness with SI with plan prior to admission but no recent SI and feels safe in the hospital, agrees to let nursing/staff know should they develop plan, intent or feel unable to remain safe. ) Risk Factors Assessment : Yes Do You Have Access To A Gun?: No Health Problems: Yes Mental Health Diagnoses: Yes Previous Attempt: No Previous Psychiatric Hospitalization: Yes Protective Factors Assessment : Yes Employed: No Stable Relationships: Yes Supportive Family: Yes Good Rapport with Provider: Yes Interval History Identifying Information ALVARO FRAIRE is a 62-year-old woman who currently lives in [place] with her , has a history of schizoaffective disorder, tardive dyskinesia, generalized anxiety disorder, and was admitted on 08/01/22 20:50 on a 201 voluntary commitment for increased confusion, psychosis and depression with SI. Chief Complaint "[mute with me]". Review of Systems Sleep Information Total Hours of Sleep: 7 Meal Information Percent Meal Consumed - Breakfast: 0 Percent Meal Consumed - Lunch: 25 Percent Meal Consumed - Dinner: 10 Nutrition Comment: pt. did not respond to verbal prompts for breakfast Subjective Subjective Patient was seen & assessed and interval progress reviewed with nursing and social work Physical Exam Psychiatric Orientation: alert level of arousal does not appear to fluctuate over the roughly 5-hour time span during which I observed her. Since she doesn't respond to questions, I'm unable to ascertain her degree of orientation Apperance: appropriately dressed and + disheveled Eye Contact: + fair eye contact Motor Behavior: + EPS (significant tardive dyskinesia of hands and feet, some tongue protrusions) and + tremor (that appears parkinsonian); + abnormal motor movements Speech: + mute and normal rate/rhythm/volume of speech (brief) Affect: + blunted affect cannot be determined in the face of pt's mutism Thought Process: + concrete thought process (brief) Thought Content: + paranoid and + delusions Suicidal Thoughts: denies suicidal thoughts, denies suicidal plan and denies suicidal intent Homicidal Thoughts: denies homicidal thoughts Hallucinations: + auditory hallucinations; no visual hallucinations Cognition: + attention not intact and + language not intact Estimated Intelligence: consistent with education level Insight: + limited insight Judgment: + severely impaired judgement Vital Signs (Past 24 Hours) Last Vital Signs Temp 37.1 C 08/07/22 13:55 Pulse 92 H 08/07/22 06:52 Resp 20 08/07/22 13:55 BP 125/82 08/07/22 13:55 Pulse Ox 99 08/06/22 18:39 O2 Del Method Room Air 08/06/22 18:39 Results & Data ([facility]) Current Inpatient Medications Current Inpatient Medications: Current Inpatient Medications Acetaminophen (Acetaminophen 325 Mg Tab) 650 mg PO Q4H PRN PRN Reason: Headache or Minor Fever Stop: 08/31/22 20:49 Last Admin: 08/01/22 21:28 Dose: 650 mg Al Hydrox/Mg Hydrox/Simethicone (Aluminum/Magnesium Susp 30 Ml Udc) 30 ml PO Q4H PRN PRN Reason: GI Upset Stop: 08/31/22 20:49 Aspirin (Aspirin 81 Mg Ectab) 81 mg PO DAILY DONNIE Stop: 09/02/22 08:59 Last Admin: 08/07/22 10:21 Dose: 81 mg Atorvastatin Calcium (Atorvastatin 20 Mg Tab) 20 mg PO HS DONNIE Stop: 09/01/22 21:59 Last Admin: 08/06/22 21:09 Dose: 20 mg Bismuth Subsalicylate (Bismuth Subsalicylate Liqd 236 Ml) 15 ml PO PRN PRN PRN Reason: Loose Stool Stop: 08/31/22 20:49 Docusate Sodium (Docusate Sodium 100 Mg Cap) 100 mg PO HS DONNIE Stop: 09/01/22 21:59 Last Admin: 08/06/22 21:08 Dose: 100 mg Gabapentin (Gabapentin 400 Mg Cap) 400 mg PO BIDM DONNIE Stop: 09/01/22 17:44 Last Admin: 08/07/22 10:22 Dose: 400 mg Hydroxyzine HCl (Hydroxyzine Hcl 25 Mg Tab) 50 mg PO HSZ PRN PRN Reason: Insomnia Stop: 08/31/22 20:49 Hydroxyzine HCl (Hydroxyzine Hcl 25 Mg Tab) 25 mg PO Q4H PRN PRN Reason: Anxiety Stop: 08/31/22 20:49 Last Admin: 08/05/22 07:37 Dose: 25 mg Levothyroxine Sodium (Levothyroxine Sodium 50 Mcg Tablet) 50 mcg PO DAILYBB DONNIE Stop: 09/02/22 07:59 Last Admin: 08/07/22 10:21 Dose: 50 mcg [place]ovi Carbonate ([place]ovi Carbonate 300 Mg Tab) 150 mg PO TID DONNIE Stop: 09/06/22 13:59 Last Admin: 08/07/22 13:23 Dose: 150 mg Magnesium Hydroxide (Magnesium Hydroxide Susp 30 Ml Udc) 30 ml PO DAILY PRN PRN Reason: Constipation Stop: 08/31/22 20:49 Melatonin (Melatonin 3 Mg Tab) 6 mg PO HS DONNIE Stop: 09/01/22 21:59 Last Admin: 08/06/22 21:10 Dose: 6 mg (Duetetrabenazine 12 Mg)-Non-Formulary Patient's Own Med 1 each PO BID DONNIE Stop: 08/09/22 21:01 Last Admin: 08/07/22 10:23 Dose: 12 mg Quetiapine Fumarate (Quetiapine Fumarate 25 Mg Tablet) 12.5 mg PO HS DONNIE Stop: 09/04/22 21:59 Last Admin: 08/06/22 21:07 Dose: 12.5 mg Sodium Chloride (Sodium Chloride 0.65% Na Soln 45 Ml ([place])) 1 - 2 sprays NA PRN PRN PRN Reason: Nasal Dryness/Congestion Stop: 08/31/22 20:49 Trazodone HCl (Trazodone Hcl 50 Mg Tab) 50 mg PO HS PRN PRN Reason: Insomnia Stop: 09/01/22 21:59 Last Admin: 08/04/22 21:01 Dose: 50 mg Mental Health & Subst Abuse Tx Psychiatrist Name of Psychiatrist: Jorge Pearson Psychiatrist's Date Of Appointment With Psychiatric Provider: 08/12/2022 Time of Appointment with Psychiatrist: 10am Psychiatric Appointment Comment: [address] [place] [address] Therapist Name of Therapist: N/A Cardiovascular Radiologic Technologist Name of Cardiovascular Radiologic Technologist: Joanne Murillo Phone Number for Cardiovascular Radiologic Technologist: [phone] Time of Appointment with Cardiovascular Radiologic Technologist: please continue normal scheduled sessions Case Management Appointment Comment: meet in the home/community Post Discharge Appointments Primary Care Physician Name Of Family Doctor/PCP: Jorge Spears Primary Care Provider Appointment Comment: [address] [place] [address] (2) UTI (urinary tract infection) Hematuria presence: without hematuria Urinary tract infection type: acute cystitis Qualified Code(s): N30.00 - Acute cystitis without hematuria
[2022-08-07] MEDS: ATORVASTATIN 20 MG TAB PO SCH (20:56)
[2022-08-07] MEDS: DOCUSATE SODIUM 100 MG CAP PO SCH (20:56)
[2022-08-07] MEDS: MELATONIN 3 MG TAB PO SCH (20:57)
[2022-08-07] MEDS: QUEtiapine FUMARATE 25 MG TABLET PO SCH (20:59)
[2022-08-08] MEDS: traZODone HCL 50 MG TAB PO PRN (02:48)
[2022-08-08] MEDS: LEVOTHYROXINE SODIUM 50 MCG TABLET PO SCH (08:49)
[2022-08-08] MEDS: ASPIRIN 81 MG ECTAB PO SCH (08:49)
[2022-08-08] MEDS: GABAPENTIN 400 MG CAP PO SCH ×2 (08:50→17:50)
[2022-08-08] MEDS: LITHIUM CARBONATE 300 MG TAB PO SCH ×3 (08:50→20:30)
[2022-08-08] MEDS: DEUTETRABENAZINE 12 MG PO SCH ×2 (08:51→20:31)
--- NOTE | 2022-08-08 11:34 | Psychiatric Progress Note ---
Date of Service August 08, 2022 Impression / Recommendations Impression 62 year old woman with a history of schizoaffective disorder, tardive dyskinesia, anxiety, falls and confusion/delirium with past UTIs who was admitted for worsening sleep, mood changes with SI with plan and confusion. Diagnostically consistent with unspecified psychosis, differential includes exacerbation of schizoaffective disorder vs delirium 2/2 UTI vs mixed episode of bipolar disorder vs cognitive process vs major depressive episode. She is deemed unstable and requires psychiatric hospitalization for diagnostic clarification, safety and stabilization, medication management and development of further copi ng skills. MNPR due to high levels of irritability, posturing, paranoia, delusions 08/08/2022: Last evening was racing around the halls and, literally, bouncing off the leung. She was observed stumbling with a small resulting "rug burn" abrasion. Held an extended 40-min. video meeting with pt, her son, RN, social psychologist. Pt did speak some, though it was difficult even for her son to elicit responses. These were not always very helpful; e.g., when asked if she wanted to get better, her response was "I don't know". A repeated topic was her worry that family are "gone". She wouldn't elaborate on this, but has used "gone" synonymously with "" in other contexts. Pt appears confused and staff have wondered if she might be more cognitively impaired at baseline than previously appreciated. This is an intriguing possibility, but would not explain the changes since admission. Pt acknowledges that the main reason she's spoken so little is that she's "afraid", though she won't say of what. While I can't identify any evidence of hallucinosis, pt's overall behavior as well as some of her mysterious utterances suggests delusions, particularly persecutory delusions. While pt's pacing could represent akathisia, this does not appear to have worsened after quetiapine was started at the current extremely low dose of 12.5 mg, and the time course suggests benefit from this medication in that pt was able to sleep after the initial dose (though she required trazodone in addition last night in order to sleep). Taken together, I think the evidence suggests that pt would benefit not just from thymoleptic effects of a mood-stabilizer such as lithium but also from antipsychotic medication. Her history of significant side effects from such medications certainly mandates caution, but in inpatient trial would be well warranted while other medications are titrated to effective doses. Pt's primary complaint is anxiety. Son's primary concern is depression. Dell may address mood, but pt may require an "antidepressant" medication with anxiolytic effect. 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 08/07/2022: Pt wanders the halls today in a repetitive loop. She did not participate in groups, though she did briefly enter the room and sit for a time. Has hardly eaten. I attempted multiple times to talk with pt. She did not stop or slow down, and when I blocked her path she simply turned around and walked away. She made no eye contact but I noted her looking at me with side glances. She did not appear to react in any way to anything I said nor did she say anything at all. She exhibited a marked parkinsonian-appearing tremor of her hands that appeared to vary in severity with observation (in that it was hardly noticeable when she didn't know she was being observed and was quite marked when it was obvious she was being observed). She continues to evidence no posturing, stereotypies, cataplexy, echopraxia, or mannerisms Reviewed [employer] pharmacogenetic testing report. 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 She appears to have had a significant response to low-dose quetiapine in the sense of less distress and less evidence of psychosis. She appears in some ways to have worsened over the course of her stay and we must remain open to the possibility this could represent adverse medication effects. 08/06/2022: Slept much better last night after addition of low dose seroquel without any signs for side effects or NMS. In fact TD movements are better today and she seems calmer. No evidence for side effects to lithium. Ongoing poor po intake and more mute today but no other signs to suggest catatonia-no posturing/stereotypies/cataplexy,echolalia/echopraxia or mannerisms. Still seems most suggestive of mixed episode of BPAD versus resolving delirium from UTI. (1) Unspecified psychosis not due to a substance or known physiological condition: (2) UTI (urinary tract infection): Plan 08/08/2022: * increase quetiapine to 12.5 mg QAM & 25 mg QHS * continue lithium 150 mg TID * lithium level tomorrow AM * continue deutetrabenazine 12 mg BID * continue trazodone 50 mg QHS PRN insomnia 08/07/2022: * increase lithium to 150 mg TID given very low chance blood level is near therapeutic at BID dosing * lithium level in 2 days * continue quetiapine 12.5 mg QHS * continue deutetrabenazine 12 mg BID * continue trazodone 50 mg QHS 08/06/2022: Continue current medications and treatment plan. Dell level ordered for 08/09/2022 prior to AM dose. 08/05/2022: Start seroquel 12.5mg HS 08/04/2022: Increased Dell to 150mg BID. 08/03/2022: Li level tonight at 9pm for 12 hour trough. 08/02/2022: The patient was admitted to the [facility] ([facility]) on q15 min checks (behavioral with suicide precautions) for safety. The patient will participate in group, recreational, and milieu therapies and will be offered additional individual and family sessions as clinically appropriate. -Continue prior to admission: Dell 150mg daily (long standing dose), deutetrabenazine 9mg BID for one more day and then increase to 12mg BID tomorrow, gabapentin 400mg BIDM -Hold temazepam -Trazodone 50mg HS prn for insomnia -Dell level tomorrow evening for 12 hour trough -Keflex 500mg BID for 5 more doses (3 days total) per ED provider recommendations for UTI given positive culture results Inventory Assets Strengths: supportive relationships, willing to get treatment Needs: safety and stabilization, medication adjustment, additional coping skills, increased outpatient services Suicide Risk Level Suicide Risk Level: Moderate (q15 min suicide checks) (psychosis, confusion and periods of tearfulness with SI with plan prior to admission but no recent SI and feels safe in the hospital, agrees to let nursing/staff know should they develop plan, intent or feel unable to remain safe. ) Risk Factors Assessment : Yes Do You Have Access To A Gun?: No Health Problems: Yes Mental Health Diagnoses: Yes Previous Attempt: No Previous Psychiatric Hospitalization: Yes Protective Factors Assessment : Yes Employed: No Stable Relationships: Yes Supportive Family: Yes Good Rapport with Provider: Yes Interval History Identifying Information ALVARO FRAIRE is a 62-year-old woman who currently lives in [place] with her , has a history of schizoaffective disorder, tardive dyskinesia, generalized anxiety disorder, and was admitted on 08/01/22 20:50 on a 201 voluntary commitment for increased confusion, psychosis and depression with SI. Chief Complaint "I don't know". Review of Systems Sleep Information Total Hours of Sleep: 5.5 Sleep Comments: Got up and began to pace halls and redirected to bathroom and back to bed after receiving Trazodone Meal Information Percent Meal Consumed - Breakfast: 0 Percent Meal Consumed - Lunch: 15 Percent Meal Consumed - Dinner: 0 Nutrition Comment: pt. had a few bites with prompting and is drinking fluids Subjective Subjective Patient was seen & assessed and interval progress reviewed with nursing and social work Physical Exam Psychiatric Orientation: alert, oriented to person, oriented to place and + guarded Apperance: appropriately dressed and + disheveled Eye Contact: + fair eye contact and + poor eye contact Motor Behavior: + psychomotor agitation, + EPS (significant tardive dyskinesia of hands and feet, some tongue protrusions) and + tremor (that appears parkinsonian); + abnormal motor movements Speech: + mute Affect: + blunted affect Mood: + depressed mood, + anxious mood and + irritable mood Thought Process: + concrete thought process (brief) Thought Content: + paranoid and + delusions Suicidal Thoughts: denies suicidal thoughts, denies suicidal plan and denies suicidal intent Homicidal Thoughts: denies homicidal thoughts Hallucinations: + auditory hallucinations; no visual hallucinations Cognition: recent memory grossly intact and remote memory grossly intact; + attention not intact and + language not intact Estimated Intelligence: consistent with education level Insight: + limited insight Judgment: + severely impaired judgement Vital Signs (Past 24 Hours) Last Vital Signs Temp 37.2 C 08/08/22 06:47 Pulse 84 08/08/22 06:47 Resp 16 08/08/22 06:47 BP 114/74 08/08/22 06:47 Pulse Ox 99 08/06/22 18:39 O2 Del Method Room Air 08/06/22 18:39 Results & Data ([facility]) Current Inpatient Medications Current Inpatient Medications: Current Inpatient Medications Acetaminophen (Acetaminophen 325 Mg Tab) 650 mg PO Q4H PRN PRN Reason: Headache or Minor Fever Stop: 08/31/22 20:49 Last Admin: 08/01/22 21:28 Dose: 650 mg Al Hydrox/Mg Hydrox/Simethicone (Aluminum/Magnesium Susp 30 Ml Udc) 30 ml PO Q4H PRN PRN Reason: GI Upset Stop: 08/31/22 20:49 Aspirin (Aspirin 81 Mg Ectab) 81 mg PO DAILY DONNIE Stop: 09/02/22 08:59 Last Admin: 08/08/22 08:49 Dose: 81 mg Atorvastatin Calcium (Atorvastatin 20 Mg Tab) 20 mg PO HS DONNIE Stop: 09/01/22 21:59 Last Admin: 08/07/22 20:56 Dose: 20 mg Bismuth Subsalicylate (Bismuth Subsalicylate Liqd 236 Ml) 15 ml PO PRN PRN PRN Reason: Loose Stool Stop: 08/31/22 20:49 Docusate Sodium (Docusate Sodium 100 Mg Cap) 100 mg PO HS DONNIE Stop: 09/01/22 21:59 Last Admin: 08/07/22 20:56 Dose: 100 mg Gabapentin (Gabapentin 400 Mg Cap) 400 mg PO BIDM DONNIE Stop: 09/01/22 17:44 Last Admin: 08/08/22 08:50 Dose: 400 mg Hydroxyzine HCl (Hydroxyzine Hcl 25 Mg Tab) 50 mg PO HSZ PRN PRN Reason: Insomnia Stop: 08/31/22 20:49 Hydroxyzine HCl (Hydroxyzine Hcl 25 Mg Tab) 25 mg PO Q4H PRN PRN Reason: Anxiety Stop: 08/31/22 20:49 Last Admin: 08/05/22 07:37 Dose: 25 mg Levothyroxine Sodium (Levothyroxine Sodium 50 Mcg Tablet) 50 mcg PO DAILYBB DONNIE Stop: 09/02/22 07:59 Last Admin: 08/08/22 08:49 Dose: 50 mcg Dell Carbonate (Dell Carbonate 300 Mg Tab) 150 mg PO TID DONNIE Stop: 09/06/22 13:59 Last Admin: 08/08/22 08:50 Dose: 150 mg Magnesium Hydroxide (Magnesium Hydroxide Susp 30 Ml Udc) 30 ml PO DAILY PRN PRN Reason: Constipation Stop: 08/31/22 20:49 Melatonin (Melatonin 3 Mg Tab) 6 mg PO HS DONNIE Stop: 09/01/22 21:59 Last Admin: 08/07/22 20:57 Dose: 6 mg (Duetetrabenazine 12 Mg)-Non-Formulary Patient's Own Med 1 each PO BID DONNIE Stop: 08/09/22 21:01 Last Admin: 08/08/22 08:51 Dose: 12 mg Quetiapine Fumarate (Quetiapine Fumarate 25 Mg Tablet) 12.5 mg PO HS DONNIE Stop: 09/04/22 21:59 Last Admin: 08/07/22 20:59 Dose: 12.5 mg Sodium Chloride (Sodium Chloride 0.65% Na Soln 45 Ml ([place])) 1 - 2 sprays NA PRN PRN PRN Reason: Nasal Dryness/Congestion Stop: 08/31/22 20:49 Trazodone HCl (Trazodone Hcl 50 Mg Tab) 50 mg PO HS PRN PRN Reason: Insomnia Stop: 09/01/22 21:59 Last Admin: 08/08/22 02:48 Dose: 50 mg Mental Health & Subst Abuse Tx Psychiatrist Name of Psychiatrist: Jorge Pearson Psychiatrist's Date Of Appointment With Psychiatric Provider: 08/12/2022 Time of Appointment with Psychiatrist: 10am Psychiatric Appointment Comment: [address] [place] [address] Therapist Name of Therapist: N/A Suspect Artist Name of Suspect Artist: Joanne Murillo Phone Number for Suspect Artist: [phone] Time of Appointment with Suspect Artist: please continue normal scheduled sessions Case Management Appointment Comment: meet in the home/community Post Discharge Appointments Primary Care Physician Name Of Family Doctor/PCP: Jorge Pearson- Sonja Spears Primary Care Provider Appointment Comment: [address] [place] [address] E&M Selection based on Time Time Spent Minutes Spent on Pre-Visit Items: 14 (Multidisciplinary treatment team meeting) Minutes Spent During Visit: 59 ([id number] with pt, 40 min of which were in a video meeting with her son) Minutes Spent Post-Visit: 26 (Documentation, detailed review of old records) Total Minutes Spent: 99 (2) UTI (urinary tract infection) Hematuria presence: without hematuria Urinary tract infection type: acute cystitis Qualified Code(s): N30.00 - Acute cystitis without hematuria
[2022-08-08] MEDS: ATORVASTATIN 20 MG TAB PO SCH (20:31)
[2022-08-08] MEDS: DOCUSATE SODIUM 100 MG CAP PO SCH (20:32)
[2022-08-08] MEDS: MELATONIN 3 MG TAB PO SCH (20:32)
[2022-08-08] MEDS ORDERED: QUEtiapine FUMARATE 25 MG TABLET PO SCH (22:00)
[2022-08-09] MEDS: traZODone HCL 50 MG TAB PO PRN (03:04)
[2022-08-09] MEDS ORDERED: QUEtiapine FUMARATE 25 MG TABLET PO SCH (09:00)
[2022-08-09] MEDS: LEVOTHYROXINE SODIUM 50 MCG TABLET PO SCH (09:16)
[2022-08-09] MEDS: GABAPENTIN 400 MG CAP PO SCH ×2 (09:17→17:40)
[2022-08-09] MEDS: ASPIRIN 81 MG ECTAB PO SCH (09:17)
[2022-08-09] MEDS: DEUTETRABENAZINE 12 MG PO SCH ×2 (09:19→21:20)
[2022-08-09] MEDS: LITHIUM CARBONATE 300 MG TAB PO SCH ×3 (09:27→21:18)
--- NOTE | 2022-08-09 15:29 | Psychiatric Progress Note ---
Date of Service August 09, 2022 Impression / Recommendations Impression 62 year old woman with a history of schizoaffective disorder, tardive dyskinesia, anxiety, falls and confusion/delirium with past UTIs who was admitted for worsening sleep, mood changes with SI with plan and confusion. Diagnostically consistent with unspecified psychosis, differential includes exacerbation of schizoaffective disorder vs delirium 2/2 UTI vs mixed episode of bipolar disorder vs cognitive process vs major depressive episode. She is deemed unstable and requires psychiatric hospitalization for diagnostic clarification, safety and stabilization, medication management and development of further copi ng skills. MNPR due to high levels of irritability, posturing, paranoia, delusions 08/09/2022: Was willing to stop pacing and speak with me, albeit briefly, and she wished to speak in the hallway rather than in an interview room. Was up last night and required PRN trazodone and redirection back into her room. Remains overwhelmed with anxiety, fearful that "something bad" has happened to her family. Has been tolerating quetiapine with no evidence of adverse effects, although her existing tardive dyskinesia remains very evident. [place] level was 0.7 mmol/L, and at this time I don't think trying to get that any higher is either a priority or advisable. Consolidating the dose is likely to reduce the risk of kidney injury. She continues to need a more effective antipsychotic and anxiolytic regimen. Her history of adverse medication reactions is of concern, and accounts for the low dose and slow titration of quetiapine, though she appears to be tolerating it well. Her pacing increases her risk of falls as does her current medication. While adding lorazepam, a drug known to increase falls risk, could certainly increase her aggregate risk, it's my opinion that her incessant restless pacing is the largest contributor to her overall falls risk and that reducing anxiety would therefore likely reduce her fall risk. Such a trial would, of course, necessitate the same very low dosing and slow titration being utilized with the quetiapine. 08/08/2022: Last evening was racing around the halls and, literally, bouncing off the leung. She was observed stumbling with a small resulting "rug burn" abrasion. Held an extended 40-min. video meeting with pt, her son, RN, social media marketing manager. Pt did speak some, though it was difficult even for her son to elicit responses. These were not always very helpful; e.g., when asked if she wanted to get better, her response was "I don't know". A repeated topic was her worry that family are "gone". She wouldn't elaborate on this, but has used "gone" synonymously with "" in other contexts. Pt appears confused and staff have wondered if she might be more cognitively impaired at baseline than previously appreciated. This is an intriguing pos sibility, but would not explain the changes since admission. Pt acknowledges that the main reason she's spoken so little is that she's "afraid", though she won't say of what. While I can't identify any evidence of hallucinosis, pt's overall behavior as well as some of her mysterious utterances suggests delusions, particularly persecutory delusions. While pt's pacing could represent akathisia, this does not appear to have worsened after quetiapine was started at the current extremely low dose of 12.5 mg, and the time course suggests benefit from this medication in that pt was able to sleep after the initial dose (though she required trazodone in addition last night in order to sleep). Taken together, I think the evidence suggests that pt would benefit not just from thymoleptic effects of a mood-stabilizer such as lithium but also from antipsychotic medication. Her history of significant side effects from such medications certainly mandates caution, but in inpatient trial would be well warranted while other medications are titrated to effective doses. Pt's primary complaint is anxiety. Son's primary concern is depression. [place] may address mood, but pt may require an "antidepressant" medication with anxiolytic effect. 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 08/07/2022: Pt wanders the halls today in a repetitive loop. She did not participate in groups, though she did briefly enter the room and sit for a time. Has hardly eaten. I attempted multiple times to talk with pt. She did not stop or slow down, and when I blocked her path she simply turned around and walked away. She made no eye contact but I noted her looking at me with side glances. She did not appear to react in any way to anything I said nor did she say anything at all. She exhibited a marked parkinsonian-appearing tremor of her hands that appeared to vary in severity with observation (in that it was hardly noticeable when she didn't know she was being observed and was quite marked when it was obvious she was being observed). She continues to evidence no posturing, stereotypies, cataplexy, echopraxia, or mannerisms Reviewed [employer] pharmacogenetic testing report. 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 She appears to have had a significant response to low-dose quetiapine in the sense of less distress and less evidence of psychosis. She appears in some ways to have worsened over the course of her stay and we must remain open to the possibility this could represent adverse medication effects. 08/06/2022: Slept much better last night after addition of low dose seroquel without any signs for side effects or NMS. In fact TD movements are better today and she seems calmer. No evidence for side effects to lithium. Ongoing poor po intake and more mute today but no other signs to suggest catatonia-no posturing/stereotypies/cataplexy,echolalia/echopraxia or mannerisms. Still seems most suggestive of mixed episode of BPAD versus resolving delirium from UTI. (1) Unspecified psychosis not due to a substance or known physiological condition: (2) UTI (urinary tract infection): Plan 08/08/2022: * increase quetiapine to 25 mg QAM & 50 mg QHS * consolidate lithium to 450 mg QHS starting tomorrow * cautiously add low-dose lorazepam 0.25 mg TID, monitor for daytime sedation and gait instability * increase deutetrabenazine to 12 mg BID as part of planned titration * increase trazodone to 100 mg QHS change to scheduled from PRN 08/08/2022: * increase quetiapine to 12.5 mg QAM & 25 mg QHS * continue lithium 150 mg TID * lithium level tomorrow AM * continue deutetrabenazine 12 mg BID * continue trazodone 50 mg QHS PRN insomnia 08/07/2022: * increase lithium to 150 mg TID given very low chance blood level is near therapeutic at BID dosing * lithium level in 2 days * continue quetiapine 12.5 mg QHS * continue deutetrabenazine 12 mg BID * continue trazodone 50 mg QHS 08/06/2022: Continue current medications and treatment plan. [place] level ordered for 08/09/2022 prior to AM dose. 08/05/2022: Start seroquel 12.5mg HS 08/04/2022: Increased [place] to 150mg BID. 08/03/2022: Li level tonight at 9pm for 12 hour trough. 08/02/2022: The patient was admitted to the [facility] ([facility]) on q15 min checks (behavioral with suicide precautions) for safety. The patient will participate in group, recreational, and milieu therapies and will be offered additional individual and family sessions as clinically appropriate. -Continue prior to admission: [place] 150mg daily (long standing dose), deutetrabenazine 9mg BID for one more day and then increase to 12mg BID tomorrow, gabapentin 400mg BIDM -Hold temazepam -Trazodone 50mg HS prn for insomnia -[place] level tomorrow evening for 12 hour trough -Keflex 500mg BID for 5 more doses (3 days total) per ED provider recommendations for UTI given positive culture results Inventory Assets Strengths: supportive relationships, willing to get treatment Needs: safety and stabilization, medication adjustment, additional coping skills, increased outpatient services Suicide Risk Level Suicide Risk Level: Moderate (q15 min suicide checks) (psychosis, confusion and periods of tearfulness with SI with plan prior to admission but no recent SI and feels safe in the hospital, agrees to let nursing/staff know should they develop plan, intent or feel unable to remain safe. ) Risk Factors Assessment : Yes Do You Have Access To A Gun?: No Health Problems: Yes Mental Health Diagnoses: Yes Previous Attempt: No Previous Psychiatric Hospitalization: Yes Protective Factors Assessment : Yes Employed: No Stable Relationships: Yes Supportive Family: Yes Good Rapport with Provider: Yes Interval History Identifying Information ALVARO FRAIRE is a 62-year-old woman who currently lives in [place] with her , has a history of schizoaffective disorder, tardive dyskinesia, generalized anxiety disorder, and was admitted on 08/01/22 20:50 on a 201 voluntary commitment for increased confusion, psychosis and depression with SI. Chief Complaint "I'm not good". Review of Systems Sleep Information Total Hours of Sleep: 4.5 Sleep Comments: Awoke and received Trazodone; had to be redirected back to bed when attempted to walk the halls. Meal Information Percent Meal Consumed - Breakfast: 50 Percent Meal Consumed - Lunch: 25 Percent Meal Consumed - Dinner: 50 Nutrition Comment: pt. had a few bites with prompting and is drinking fluids Subjective Subjective Patient was seen & assessed and interval progress reviewed with nursing and social work Physical Exam Psychiatric Orientation: alert, oriented to person, oriented to place and + guarded Apperance: appropriately dressed and + disheveled Eye Contact: + poor eye contact Motor Behavior: + psychomotor agitation, + EPS (significant tardive dyskinesia of hands and feet, some tongue protrusions) and + tremor (that appears parkinsonian); + abnormal motor movements Speech: normal rate/rhythm/volume of speech (brief) Affect: + blunted affect Mood: + depressed mood and + anxious mood Thought Process: + concrete thought process (brief) Thought Content: + paranoid Suicidal Thoughts: denies suicidal thoughts, denies suicidal plan and denies suicidal intent Homicidal Thoughts: denies homicidal thoughts Hallucinations: + auditory hallucinations; no visual hallucinations Cognition: recent memory grossly intact and remote memory grossly intact; + attention not intact and + language not intact Estimated Intelligence: consistent with education level Insight: + limited insight Judgment: + severely impaired judgement Vital Signs (Past 24 Hours) Last Vital Signs Temp 37.6 C H 08/09/22 13:58 Pulse 80 08/09/22 13:58 Resp 17 08/09/22 13:58 BP 158/70 H 08/09/22 13:58 Pulse Ox 99 08/06/22 18:39 O2 Del Method Room Air 08/08/22 14:00 Results & Data ([facility]) Laboratory Results Laboratory Results - last 24 hr 08/09/22 07:46 [place] 0.7 Current Inpatient Medications Current Inpatient Medications: Current Inpatient Medications Acetaminophen (Acetaminophen 325 Mg Tab) 650 mg PO Q4H PRN PRN Reason: Headache or Minor Fever Stop: 08/31/22 20:49 Last Admin: 08/01/22 21:28 Dose: 650 mg Al Hydrox/Mg Hydrox/Simethicone (Aluminum/Magnesium Susp 30 Ml Udc) 30 ml PO Q4H PRN PRN Reason: GI Upset Stop: 08/31/22 20:49 Aspirin (Aspirin 81 Mg Ectab) 81 mg PO DAILY [facility] Stop: 09/02/22 08:59 Last Admin: 08/09/22 09:17 Dose: 81 mg Atorvastatin Calcium (Atorvastatin 20 Mg Tab) 20 mg PO HS [facility] Stop: 09/01/22 21:59 Last Admin: 08/08/22 20:31 Dose: 20 mg Bismuth Subsalicylate (Bismuth Subsalicylate Liqd 236 Ml) 15 ml PO PRN PRN PRN Reason: Loose Stool Stop: 08/31/22 20:49 Docusate Sodium (Docusate Sodium 100 Mg Cap) 100 mg PO HS [facility] Stop: 09/01/22 21:59 Last Admin: 08/08/22 20:32 Dose: 100 mg Gabapentin (Gabapentin 400 Mg Cap) 400 mg PO BIDM [facility] Stop: 09/01/22 17:44 Last Admin: 08/09/22 09:17 Dose: 400 mg Hydroxyzine HCl (Hydroxyzine Hcl 25 Mg Tab) 50 mg PO HSZ PRN PRN Reason: Insomnia Stop: 08/31/22 20:49 Hydroxyzine HCl (Hydroxyzine Hcl 25 Mg Tab) 25 mg PO Q4H PRN PRN Reason: Anxiety Stop: 08/31/22 20:49 Last Admin: 08/05/22 07:37 Dose: 25 mg Levothyroxine Sodium (Levothyroxine Sodium 50 Mcg Tablet) 50 mcg PO DAILYBB [facility] Stop: 09/02/22 07:59 Last Admin: 08/09/22 09:16 Dose: 50 mcg [place] Carbonate ([place] Carbonate 300 Mg Tab) 150 mg PO TID DONNIE Stop: 09/06/22 13:59 Last Admin: 08/09/22 14:06 Dose: 150 mg Magnesium Hydroxide (Magnesium Hydroxide Susp 30 Ml Udc) 30 ml PO DAILY PRN PRN Reason: Constipation Stop: 08/31/22 20:49 Melatonin (Melatonin 3 Mg Tab) 6 mg PO HS [facility] Stop: 09/01/22 21:59 Last Admin: 08/08/22 20:32 Dose: 6 mg (Duetetrabenazine 12 Mg)-Non-Formulary Patient's Own Med 1 each PO BID [facility] Stop: 08/09/22 21:01 Last Admin: 08/09/22 09:19 Dose: 12 mg (Deutetrabenazine 6 Mg)-Non-Formulary Patient's Own Med 1 each PO BID DONNIE Stop: 08/16/22 21:01 (Duetetrabenazine 9 Mg)-Non-Formulary Patient's Own Med 1 each PO BID DONNIE Stop: 08/16/22 21:01 Quetiapine Fumarate (Quetiapine Fumarate 25 Mg Tablet) 12.5 mg PO QAM DONNIE Stop: 09/08/22 08:59 Last Admin: 08/09/22 09:17 Dose: 12.5 mg Quetiapine Fumarate (Quetiapine Fumarate 25 Mg Tablet) 25 mg PO HS DONNIE Stop: 09/07/22 21:59 Last Admin: 08/08/22 20:32 Dose: 25 mg Sodium Chloride (Sodium Chloride 0.65% Na Soln 45 Ml ([place])) 1 - 2 sprays NA PRN PRN PRN Reason: Nasal Dryness/Congestion Stop: 08/31/22 20:49 Trazodone HCl (Trazodone Hcl 50 Mg Tab) 50 mg PO HS PRN PRN Reason: Insomnia Stop: 09/01/22 21:59 Last Admin: 08/09/22 03:04 Dose: 50 mg Mental Health & Subst Abuse Tx Psychiatrist Name of Psychiatrist: Jorge Pearson Psychiatrist's Date Of Appointment With Psychiatric Provider: 08/12/2022 Time of Appointment with Psychiatrist: 10am Psychiatric Appointment Comment: [address] [place] [address] Therapist Name of Therapist: None Crystalizer Tender Name of Crystalizer Tender: Joanne Collazo (nicole assigned ) Phone Number for Crystalizer Tender: [phone] Time of Appointment with Crystalizer Tender: please continue normal scheduled sessions Case Management Appointment Comment: meet in the home/community Post Discharge Appointments Primary Care Physician Name Of Family Doctor/PCP: Jorge Spears Primary Care Date of Future Appointment with PCP: 09/08/2022 Time of Appointment with PCP: 10am Provider Appointment Comment: [address] [place] [address] (2) UTI (urinary tract infection) Hematuria presence: without hematuria Urinary tract infection type: acute cystitis Qualified Code(s): N30.00 - Acute cystitis without hematuria
[2022-08-09] MEDS ORDERED: QUEtiapine FUMARATE 25 MG TABLET PO ONE (15:45)
[2022-08-09] MEDS: MELATONIN 3 MG TAB PO SCH (21:19)
[2022-08-09] MEDS: DOCUSATE SODIUM 100 MG CAP PO SCH (21:19)
[2022-08-09] MEDS: ATORVASTATIN 20 MG TAB PO SCH (21:20)
[2022-08-09] MEDS: traZODone HCL 100 MG TAB PO SCH (21:20)
[2022-08-09] MEDS: LORazepam 0.5 MG TAB PO SCH (21:21)
[2022-08-09] MEDS: QUEtiapine FUMARATE 25 MG TABLET PO SCH (21:21)
--- NOTE | 2022-08-10 08:44 | Psychiatric Progress Note ---
Date of Service August 10, 2022 Impression / Recommendations Impression 62 year old woman with a history of schizoaffective disorder, tardive dyskinesia, anxiety, falls and confusion/delirium with past UTIs who was admitted for worsening sleep, mood changes with SI with plan and confusion. Diagnostically consistent with unspecified psychosis, differential includes exacerbation of schizoaffective disorder vs delirium 2/2 UTI vs mixed episode of bipolar disorder vs cognitive process vs major depressive episode. She is deemed unstable and requires psychiatric hospitalization for diagnostic clarification, safety and stabilization, medication management and development of further copi ng skills. MNPR due to high levels of irritability, posturing, paranoia, delusions 08/10/2028: Slept better last night, though only after receiving trazodone. She has slept much of the day today, though she was up to eat and fed herself more than she has been doing. When I saw her she was sleeping and woke only briefly. Given her recent poor sleep and excessive physical activity, she may simply be making up for missed sleep. Will monitor carefully for evidence of sedation 08/09/2022: Was willing to stop pacing and speak with me, albeit briefly, and she wished to speak in the hallway rather than in an interview room. Was up last night and required PRN trazodone and redirection back into her room. Remains overwhelmed with anxiety, fearful that "something bad" has happened to her family. Has been tolerating quetiapine with no evidence of adverse effects, although her existing tardive dyskinesia remains very evident. [place] level was 0.7 mmol/L, and at this time I don't think trying to get that any higher is either a priority or advisable. Consolidating the dose is likely to reduce the risk of kidney injury. She continues to need a more effective antipsychotic and anxiolytic regimen. Her history of adverse medication reactions is of concern, and accounts for the low dose and slow titration of quetiapine, though she appears to be tolerating it well. Her pacing increases her risk of falls as does her current medication. While adding lorazepam, a drug known to increase falls risk, could certainly increase her aggregate risk, it's my opinion that her incessant restless pacing is the largest contributor to her overall falls risk and that reducing anxiety would therefore likely reduce her fall risk. Such a trial would, of course, necessitate the same very low dosing and slow titration being utilized with the quetiapine. 08/08/2022: Last evening was racing around the halls and, literally, bouncing off the leung. She was observed stumbling with a small resulting "rug burn" abrasion. Held an extended 40-min. video meeting with pt, her son, RN, director social service. Pt did speak some, though it was difficult even for her son to elicit responses. These were not always very helpful; e.g., when asked if she wanted to get better, her response was "I don't know". A repeated topic was her worry that family are "gone". She wouldn't elaborate on this, but has used "gone" synonymously with "" in other contexts. Pt appears confused and staff have wondered if she might be more cognitively impaired at baseline than previously appreciated. This is an intriguing possib ility, but would not explain the changes since admission. Pt acknowledges that the main reason she's spoken so little is that she's "afraid", though she won't say of what. While I can't identify any evidence of hallucinosis, pt's overall behavior as well as some of her mysterious utterances suggests delusions, particularly persecutory delusions. While pt's pacing could represent akathisia, this does not appear to have worsened after quetiapine was started at the current extremely low dose of 12.5 mg, and the time course suggests benefit from this medication in that pt was able to sleep after the initial dose (though she required trazodone in addition last night in order to sleep). Taken together, I think the evidence suggests that pt would benefit not just from thymoleptic effects of a mood-stabilizer such as lithium but also from antipsychotic medication. Her history of significant side effects from such medications certainly mandates caution, but in inpatient trial would be well wa rranted while other medications are titrated to effective doses. Pt's primary complaint is anxiety. Son's primary concern is depression. [place] may address mood, but pt may require an "antidepressant" medication with anxiolytic effect. 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 08/07/2022: Pt wanders the halls today in a repetitive loop. She did not participate in groups, though she did briefly enter the room and sit for a time. Has hardly eaten. I attempted multiple times to talk with pt. She did not stop or slow down, and when I blocked her path she simply turned around and walked away. She made no eye contact but I noted her looking at me with side glances. She did not appear to react in any way to anything I said nor did she say anything at all. She exhibited a marked parkinsonian-appearing tremor of her hands that appeared to vary in severity with observation (in that it was hardly noticeable when she didn't know she was being observed and was quite marked when it was obvious she was being observed). She continues to evidence no posturing, stereotypies, cataplexy, echopraxia, or mannerisms Reviewed [employer] pharmacogenetic testing report. 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 She appears to have had a significant response to low-dose quetiapine in the sense of less distress and less evidence of psychosis. She appears in some ways to have worsened over the course of her stay and we must remain open to the possibility this could represent adverse medication effects. 08/06/2022: Slept much better last night after addition of low dose seroquel without any signs for side effects or NMS. In fact TD movements are better today and she seems calmer. No evidence for side effects to lithium. Ongoing poor po intake and more mute today but no other signs to suggest catatonia-no posturing/stereotypies/cataplexy,echolalia/echopraxia or mannerisms. Still seems most suggestive of mixed episode of BPAD versus resolving delirium from UTI. (1) Unspecified psychosis not due to a substance or known physiological condition: (2) UTI (urinary tract infection): Plan 08/10/2022: * continue quetiapine 25 mg QAM & 50 mg QHS * continue lithium to 450 mg QHS * continue lorazepam 0.25 mg TID, monitor for daytime sedation and gait instability * continue deutetrabenazine 12 mg BID * continue trazodone 100 mg QHS 08/09/2022: * increase quetiapine to 25 mg QAM & 50 mg QHS * consolidate lithium to 450 mg QHS starting tomorrow * cautiously add low-dose lorazepam 0.25 mg TID, monitor for daytime sedation and gait instability * increase deutetrabenazine to 12 mg BID as part of planned titration * increase trazodone to 100 mg QHS change to scheduled from PRN 08/08/2022: * increase quetiapine to 12.5 mg QAM & 25 mg QHS * continue lithium 150 mg TID * lithium level tomorrow AM * continue deutetrabenazine 12 mg BID * continue trazodone 50 mg QHS PRN insomnia 08/07/2022: * increase lithium to 150 mg TID given very low chance blood level is near therapeutic at BID dosing * lithium level in 2 days * continue quetiapine 12.5 mg QHS * continue deutetrabenazine 12 mg BID * continue trazodone 50 mg QHS 08/06/2022: Continue current medications and treatment plan. [place] level ordered for 08/09/2022 prior to AM dose. 08/05/2022: Start seroquel 12.5mg HS 08/04/2022: Increased [place] to 150mg BID. 08/03/2022: Li level tonight at 9pm for 12 hour trough. 08/02/2022: The patient was admitted to the [facility] ([facility] mental health unit) on q15 min checks (behavioral with suicide precautions) for safety. The patient will participate in group, recreational, and milieu therapies and will be offered additional individual and family sessions as clinically appropriate. -Continue prior to admission: [place] 150mg daily (long standing dose), deutetrabenazine 9mg BID for one more day and then increase to 12mg BID tomorrow, gabapentin 400mg BIDM -Hold temazepam -Trazodone 50mg HS prn for insomnia -[place] level tomorrow evening for 12 hour trough -Keflex 500mg BID for 5 more doses (3 days total) per ED provider recommendations for UTI given positive culture results Inventory Assets Strengths: supportive relationships, willing to get treatment Needs: safety and stabilization, medication adjustment, additional coping skills, increased outpatient services Suicide Risk Level Suicide Risk Level: Moderate (q15 min suicide checks) (psychosis, confusion and periods of tearfulness with SI with plan prior to admission but no recent SI and feels safe in the hospital, agrees to let nursing/staff know should they develop plan, intent or feel unable to remain safe. ) Risk Factors Assessment : Yes Do You Have Access To A Gun?: No Health Problems: Yes Mental Health Diagnoses: Yes Previous Attempt: No Previous Psychiatric Hospitalization: Yes Protective Factors Assessment : Yes Employed: No Stable Relationships: Yes Supportive Family: Yes Good Rapport with Provider: Yes Interval History Identifying Information ALVARO FRAIRE is a 62-year-old woman who currently lives in [place] with her , has a history of schizoaffective disorder, tardive dyskinesia, generalized anxiety disorder, and was admitted on 08/01/22 20:50 on a 201 voluntary commitment for increased confusion, psychosis and depression with SI. Chief Complaint mute Review of Systems Sleep Information Total Hours of Sleep: 12 Sleep Comments: Awoke and received Trazodone; had to be redirected back to bed when attempted to walk the halls. Meal Information Percent Meal Consumed - Breakfast: 50 Percent Meal Consumed - Lunch: 25 Percent Meal Consumed - Dinner: 25 Nutrition Comment: pt. had a few bites with prompting and is drinking fluids Subjective Subjective Patient was seen & assessed and interval progress reviewed with treatment team Physical Exam Psychiatric Orientation: oriented to person, oriented to place and + guarded; + not alert Apperance: appropriately dressed and appropriately groomed Eye Contact: + poor eye contact Motor Behavior: + EPS (significant tardive dyskinesia of hands and feet, some tongue protrusions) and + tremor (that appears parkinsonian); + abnormal motor movements Speech: + mute and normal rate/rhythm/volume of speech (brief) Affect: + labile affect Mood: + depressed mood, + anxious mood and + irritable mood Thought Process: + concrete thought process (brief) Thought Content: + paranoid and + delusions Suicidal Thoughts: denies suicidal thoughts, denies suicidal plan and denies suicidal intent Homicidal Thoughts: denies homicidal thoughts Hallucinations: + auditory hallucinations; no visual hallucinations Cognition: recent memory grossly intact and remote memory grossly intact; + attention not intact and + language not intact Estimated Intelligence: consistent with education level Insight: + limited insight Judgment: + severely impaired judgement Vital Signs (Past 24 Hours) Last Vital Signs Temp 36.9 C 08/10/22 06:44 Pulse 76 08/10/22 06:44 Resp 16 08/10/22 06:44 BP 130/84 08/10/22 06:44 Pulse Ox 99 08/06/22 18:39 O2 Del Method Room Air 08/08/22 14:00 Results & Data ([facility]) Laboratory Results Laboratory Results - last 24 hr 08/09/22 07:46 [place] 0.7 Current Inpatient Medications Current Inpatient Medications: Current Inpatient Medications Acetaminophen (Acetaminophen 325 Mg Tab) 650 mg PO Q4H PRN PRN Reason: Headache or Minor Fever Stop: 08/31/22 20:49 Last Admin: 08/01/22 21:28 Dose: 650 mg Al Hydrox/Mg Hydrox/Simethicone (Aluminum/Magnesium Susp 30 Ml Udc) 30 ml PO Q4H PRN PRN Reason: GI Upset Stop: 08/31/22 20:49 Last Admin: 08/09/22 15:41 Dose: 30 ml Aspirin (Aspirin 81 Mg Ectab) 81 mg PO DAILY DONNIE Stop: 09/02/22 08:59 Last Admin: 08/09/22 09:17 Dose: 81 mg Atorvastatin Calcium (Atorvastatin 20 Mg Tab) 20 mg PO HS DONNIE Stop: 09/01/22 21:59 Last Admin: 08/09/22 21:20 Dose: 20 mg Bismuth Subsalicylate (Bismuth Subsalicylate Liqd 236 Ml) 15 ml PO PRN PRN PRN Reason: Loose Stool Stop: 08/31/22 20:49 Docusate Sodium (Docusate Sodium 100 Mg Cap) 100 mg PO HS DONNIE Stop: 09/01/22 21:59 Last Admin: 08/09/22 21:19 Dose: 100 mg Gabapentin (Gabapentin 400 Mg Cap) 400 mg PO BIDM DONNIE Stop: 09/01/22 17:44 Last Admin: 08/09/22 17:40 Dose: 400 mg Hydroxyzine HCl (Hydroxyzine Hcl 25 Mg Tab) 50 mg PO HSZ PRN PRN Reason: Insomnia Stop: 08/31/22 20:49 Hydroxyzine HCl (Hydroxyzine Hcl 25 Mg Tab) 25 mg PO Q4H PRN PRN Reason: Anxiety Stop: 08/31/22 20:49 Last Admin: 08/05/22 07:37 Dose: 25 mg Levothyroxine Sodium (Levothyroxine Sodium 50 Mcg Tablet) 50 mcg PO DAILYBB [facility] Stop: 09/02/22 07:59 Last Admin: 08/09/22 09:16 Dose: 50 mcg [place] Carbonate ([place] Carbonate 300 Mg Tab) 150 mg PO TID [facility] Stop: 08/10/22 09:00 Last Admin: 08/09/22 21:18 Dose: 150 mg [place] Carbonate ([place] Carbonate 300 Mg Tab) 450 mg PO [facility] Stop: 09/09/22 21:59 Lorazepam (Lorazepam 0.5 Mg Tab) 0.25 mg PO TID DONNIE Stop: 09/08/22 20:59 Last Admin: 08/09/22 21:21 Dose: 0.25 mg Magnesium Hydroxide (Magnesium Hydroxide Susp 30 Ml Udc) 30 ml PO DAILY PRN PRN Reason: Constipation Stop: 08/31/22 20:49 Melatonin (Melatonin 3 Mg Tab) 6 mg PO [facility] Stop: 09/01/22 21:59 Last Admin: 08/09/22 21:19 Dose: 6 mg (Deutetrabenazine 6 Mg)-Non-Formulary Patient's Own Med 1 each PO BID [facility] Stop: 08/16/22 21:01 (Duetetrabenazine 9 Mg)-Non-Formulary Patient's Own Med 1 each PO BID [facility] Stop: 08/16/22 21:01 Quetiapine Fumarate (Quetiapine Fumarate 25 Mg Tablet) 25 mg PO QAM [facility] Stop: 09/09/22 08:59 Quetiapine Fumarate (Quetiapine Fumarate 25 Mg Tablet) 50 mg PO [facility] Stop: 09/08/22 21:59 Last Admin: 08/09/22 21:21 Dose: 50 mg Sodium Chloride (Sodium Chloride 0.65% Na Soln 45 Ml ([place])) 1 - 2 sprays NA PRN PRN PRN Reason: Nasal Dryness/Congestion Stop: 08/31/22 20:49 Trazodone HCl (Trazodone Hcl 100 Mg Tab) 100 mg PO [facility] Stop: 09/08/22 21:59 Last Admin: 08/09/22 21:20 Dose: 100 mg Mental Health & Subst Abuse Tx Psychiatrist Name of Psychiatrist: [facility] Psychiatrist's Date Of Appointment With Psychiatric Provider: 08/12/2022 Time of Appointment with Psychiatrist: 10am Psychiatric Appointment Comment: [address] [place] [address] Therapist Name of Therapist: None Film Technician Name of Film Technician: Joanne Collazo (new assigned CM) Phone Number for Film Technician: [phone] Time of Appointment with Film Technician: please continue normal scheduled sessions Case Management Appointment Comment: meet in the home/community Post Discharge Appointments Primary Care Physician Name Of Family Doctor/PCP: Jorge [facility] Date of Future Appointment with PCP: 09/08/2022 Time of Appointment with PCP: 10am Provider Appointment Comment: [address] [place] [address] (2) UTI (urinary tract infection) Hematuria presence: without hematuria Urinary tract infection type: acute cystitis Qualified Code(s): N30.00 - Acute cystitis without hematuria
[2022-08-10] MEDS: ASPIRIN 81 MG ECTAB PO SCH (09:32)
[2022-08-10] MEDS: LEVOTHYROXINE SODIUM 50 MCG TABLET PO SCH (09:32)
[2022-08-10] MEDS: GABAPENTIN 400 MG CAP PO SCH ×2 (09:32→17:25)
[2022-08-10] MEDS: LITHIUM CARBONATE 300 MG TAB PO SCH ×2 (09:33→21:21)
[2022-08-10] MEDS: LORazepam 0.5 MG TAB PO SCH ×3 (09:33→21:17)
[2022-08-10] MEDS: QUEtiapine FUMARATE 25 MG TABLET PO SCH ×2 (09:34→21:21)
[2022-08-10] MEDS: DEUTETRABENAZINE 9 MG PO SCH ×2 (09:35→21:19)
[2022-08-10] MEDS: DEUTETRABENAZINE 6 MG PO SCH ×2 (09:35→21:18)
[2022-08-10] MEDS: ATORVASTATIN 20 MG TAB PO SCH (21:20)
[2022-08-10] MEDS: MELATONIN 3 MG TAB PO SCH (21:21)
[2022-08-10] MEDS: DOCUSATE SODIUM 100 MG CAP PO SCH (21:22)
[2022-08-10] MEDS: traZODone HCL 100 MG TAB PO SCH (21:22)
[2022-08-11] MEDS: LORazepam 0.5 MG TAB PO SCH ×3 (08:39→20:45)
[2022-08-11] MEDS: LEVOTHYROXINE SODIUM 50 MCG TABLET PO SCH (08:39)
[2022-08-11] MEDS: ASPIRIN 81 MG ECTAB PO SCH (08:39)
[2022-08-11] MEDS: GABAPENTIN 400 MG CAP PO SCH ×2 (08:40→17:18)
[2022-08-11] MEDS: DEUTETRABENAZINE 6 MG PO SCH ×2 (08:40→20:46)
[2022-08-11] MEDS: DEUTETRABENAZINE 9 MG PO SCH ×2 (08:41→20:46)
[2022-08-11] MEDS: QUEtiapine FUMARATE 25 MG TABLET PO SCH ×2 (08:43→20:50)
[2022-08-11] MEDS ORDERED: traZODone HCL 50 MG TAB PO PRN (15:24)
--- NOTE | 2022-08-11 15:36 | Psychiatric Progress Note ---
Date of Service August 11, 2022 Impression / Recommendations Impression 62 year old woman with a history of schizoaffective disorder, tardive dyskinesia, anxiety, falls and confusion/delirium with past UTIs who was admitted for worsening sleep, mood changes with SI with plan and confusion. Diagnostically consistent with unspecified psychosis, differential includes exacerbation of schizoaffective disorder vs delirium 2/2 UTI vs mixed episode of bipolar disorder vs cognitive process vs major depressive episode. She is deemed unstable and requires psychiatric hospitalization for diagnostic clarification, safety and stabilization, medication management and development of further copi ng skills. MNPR due to high levels of irritability, posturing, paranoia, delusions 08/11/2022: Reported to have exhibited improvements in a number of areas such as ADL's, eating behavior, overall distress. However, she's been sleeping quite a lot and has been bed-seeking. When I saw pt she was initially asleep, not exhibiting any abnormal movements. As soon as she woke, she pulled down the cover to reveal her hand shaking 08/10/2028: Slept better last night, though only after receiving trazodone. She has slept much of the day today, though she was up to eat and fed herself more than she has been doing. When I saw her she was sleeping and woke only briefly. Given her recent poor sleep and excessive physical activity, she may simply be making up for missed sleep. Will monitor carefully for evidence of sedation 08/09/2022: Was willing to stop pacing and speak with me, albeit briefly, and she wished to speak in the hallway rather than in an interview room. Was up last night and required PRN trazodone and redirection back into her room. Remains overwhelmed with anxiety, fearful that "something bad" has happened to her family. Has been tolerating quetiapine with no evidence of adverse effects, although her existing tardive dyskinesia remains very evident. Glacier level was 0.7 mmol/L, and at this time I don't think trying to get that any higher is either a priority or advisable. Consolidating the dose is likely to reduce the risk of kidney injury. She continues to need a more effective antipsychotic and anxiolytic regimen. Her history of adverse medication reactions is of concern, and accounts for the low dose and slow titration of quetiapine, though she appears to be tolerating it well. Her pacing increases her risk of falls as does her current medication. Wh ile adding lorazepam, a drug known to increase falls risk, could certainly increase her aggregate risk, it's my opinion that her incessant restless pacing is the largest contributor to her overall falls risk and that reducing anxiety would therefore likely reduce her fall risk. Such a trial would, of course, necessitate the same very low dosing and slow titration being utilized with the quetiapine. 08/08/2022: Last evening was racing around the halls and, literally, bouncing off the leung. She was observed stumbling with a small resulting "rug burn" abrasion. Held an extended 40-min. video meeting with pt, her son, RN, social services analyst. Pt did speak some, though it was difficult even for her son to elicit responses. These were not always very helpful; e.g., when asked if she wanted to get b emily, her response was "I don't know". A repeated topic was her worry that family are "gone". She wouldn't elaborate on this, but has used "gone" synonymously with "" in other contexts. Pt appears confused and staff have wondered if she might be more cognitively impaired at baseline than previously appreciated. This is an intriguing possibility, but would not explain the changes since admission. Pt acknowledges that the main reason she's spoken so little is that she's "afraid", though she won't say of what. While I can't identify any evidence of hallucinosis, pt's overall behavior as well as some of her mysterious utterances suggests delusions, particularly persecutory delusions. While pt's pacing could represent akathisia, this does not appear to have worsened after quetiapine was started at the current extremely low dose of 12.5 mg, and the time course suggests benefit from this medication in that pt was able to sleep after the initial dose (though she required trazodone in addition last night in order to sleep). Taken together, I think the evidence suggests that pt would benefit not just from thymoleptic effects of a mood-stabilizer such as lithium but also from antipsychotic medication. Her history of significant side effects from such medications certainly mandates caution, but in inpatient trial would be well warranted while other medications are titrated to effective doses. Pt's primary complaint is anxiety. Son's primary concern is depression. Glacier may address mood, but pt may require an "antidepressant" medication with anxiolytic effect. 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 08/07/2022: Pt wanders the halls today in a repetitive loop. She did not participate in groups, though she did briefly enter the room and sit for a time. Has hardly eaten. I attempted multiple times to talk with pt. She did not stop or slow down, and when I blocked her path she simply turned around and walked away. She made no eye contact but I noted her looking at me with side glances. She did not appear to react in any way to anything I said nor did she say anything at all. She exhibited a marked parkinsonian-appearing tremor of her hands that appeared to vary in severity with observation (in that it was hardly noticeable when she didn't know she was being observed and was quite marked when it was obvious she was being observed). She continues to evidence no posturing, stereotypies, cataplexy, echopraxia, or mannerisms Reviewed Opent[facility] pharmacogenetic testing report. 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 She appears to have had a significant response to low-dose quetiapine in the sense of less distress and less evidence of psychosis. She appears in some ways to have worsened over the course of her stay and we must remain open to the possibility this could represent adverse medication effects. 08/06/2022: Slept much better last night after addition of low dose seroquel without any signs for side effects or NMS. In fact TD movements are better today and she seems calmer. No evidence for side effects to lithium. Ongoing poor po intake and more mute today but no other signs to suggest catatonia-no pos turing/stereotypies/cataplexy,echolalia/echopraxia or mannerisms. Still seems most suggestive of mixed episode of BPAD versus resolving delirium from UTI. (1) Unspecified psychosis not due to a substance or known physiological condition: (2) UTI (urinary tract infection): Plan 08/11/2022: * hold quetiapine this AM then resume at 12.5 mg QAM & 50 mg QHS * continue lithium 450 mg QHS * continue lorazepam 0.25 mg TID, monitor for daytime sedation and gait instability * continue deutetrabenazine 12 mg BID * reduce trazodone to 50 mg QHS, change back to PRN 08/10/2022: * continue quetiapine 25 mg QAM & 50 mg QHS * continue lithium 450 mg QHS * continue lorazepam 0.25 mg TID, monitor for daytime sedation and gait instability * continue deutetrabenazine 12 mg BID * continue trazodone 100 mg QHS 08/09/2022: * increase quetiapine to 25 mg QAM & 50 mg QHS * consolidate lithium to 450 mg QHS starting tomorrow * cautiously add low-dose lorazepam 0.25 mg TID, monitor for daytime sedation and gait instability * increase deutetrabenazine to 12 mg BID as part of planned titration * increase trazodone to 100 mg QHS change to scheduled from PRN 08/08/2022: * increase quetiapine to 12.5 mg QAM & 25 mg QHS * continue lithium 150 mg TID * lithium level tomorrow AM * continue deutetrabenazine 12 mg BID * continue trazodone 50 mg QHS PRN insomnia 08/07/2022: * increase lithium to 150 mg TID given very low chance blood level is near therapeutic at BID dosing * lithium level in 2 days * continue quetiapine 12.5 mg QHS * continue deutetrabenazine 12 mg BID * continue trazodone 50 mg QHS 08/06/2022: Continue current medications and treatment plan. Glacier level ordered for 08/09/2022 prior to AM dose. 08/05/2022: Start seroquel 12.5mg HS 08/04/2022: Increased Glacier to 150mg BID. 08/03/2022: Li level tonight at 9pm for 12 hour trough. 08/02/2022: The patient was admitted to the [facility] ([facility]) on q15 min checks (behavioral with suicide precautions) for safety. The patient will participate in group, recreational, and milieu therapies and will be offered additional individual and family sessions as clinically appropriate. -Continue prior to admission: Glacier 150mg daily (long standing dose), deutetrabenazine 9mg BID for one more day and then increase to 12mg BID tomorrow, gabapentin 400mg BIDM -Hold temazepam -Trazodone 50mg HS prn for insomnia -Glacier level tomorrow evening for 12 hour trough -Keflex 500mg BID for 5 more doses (3 days total) per ED provider recommendations for UTI given positive culture results Inventory Assets Strengths: supportive relationships, willing to get treatment Needs: safety and stabilization, medication adjustment, additional coping skills, increased outpatient services Suicide Risk Level Suicide Risk Level: Moderate (q15 min suicide checks) (psychosis, confusion and periods of tearfulness with SI with plan prior to admission but no recent SI and feels safe in the hospital, agrees to let nursing/staff know should they develop plan, intent or feel unable to remain safe. ) Risk Factors Assessment : Yes Do You Have Access To A Gun?: No Health Problems: Yes Mental Health Diagnoses: Yes Previous Attempt: No Previous Psychiatric Hospitalization: Yes Protective Factors Assessment : Yes Employed: No Stable Relationships: Yes Supportive Family: Yes Good Rapport with Provider: Yes Interval History Identifying Information ALVARO FRAIRE is a 62-year-old woman who currently lives in [place] with her , has a history of schizoaffective disorder, tardive dyskinesia, generalized anxiety disorder, and was admitted on 08/01/22 20:50 on a 201 voluntary commitment for increased confusion, psychosis and depression with SI. Chief Complaint "Not good". Review of Systems Sleep Information Total Hours of Sleep: 11.25 Sleep Comments: Awoke and received Trazodone; had to be redirected back to bed when attempted to walk the halls. Meal Information Percent Meal Consumed - Breakfast: 0 Percent Meal Consumed - Lunch: 25 Percent Meal Consumed - Dinner: 40 Nutrition Comment: Finger foods Subjective Subjective Patient was seen & assessed and interval progress reviewed with treatment team Physical Exam Psychiatric Orientation: oriented to person, oriented to place and + guarded; + not alert Apperance: appropriately dressed and appropriately groomed Eye Contact: + fair eye contact Motor Behavior: + EPS (significant tardive dyskinesia of hands and feet, some tongue protrusions) and + tremor (that appears parkinsonian); + abnormal motor movements brief Affect: + blunted affect Mood: + depressed mood, + anxious mood and + irritable mood Thought Process: + concrete thought process (brief) Thought Content: + paranoid and + delusions Suicidal Thoughts: denies suicidal thoughts, denies suicidal plan and denies suicidal intent Homicidal Thoughts: denies homicidal thoughts Hallucinations: + auditory hallucinations; no visual hallucinations Cognition: recent memory grossly intact and remote memory grossly intact; + attention not intact and + language not intact Estimated Intelligence: consistent with education level Insight: + limited insight Judgment: + severely impaired judgement Vital Signs (Past 24 Hours) Last Vital Signs Temp 37.1 C 08/11/22 14:18 Pulse 76 08/11/22 14:18 Resp 16 08/11/22 06:37 BP 125/79 08/11/22 14:18 Pulse Ox 96 08/10/22 21:32 O2 Del Method Room Air 08/10/22 21:32 Results & Data ([facility]) Current Inpatient Medications Current Inpatient Medications: Current Inpatient Medications Acetaminophen (Acetaminophen 325 Mg Tab) 650 mg PO Q4H PRN PRN Reason: Headache or Minor Fever Stop: 08/31/22 20:49 Last Admin: 08/01/22 21:28 Dose: 650 mg Al Hydrox/Mg Hydrox/Simethicone (Aluminum/Magnesium Susp 30 Ml Udc) 30 ml PO Q4H PRN PRN Reason: GI Upset Stop: 08/31/22 20:49 Last Admin: 08/09/22 15:41 Dose: 30 ml Aspirin (Aspirin 81 Mg Ectab) 81 mg PO DAILY DONNIE Stop: 09/02/22 08:59 Last Admin: 08/11/22 08:39 Dose: 81 mg Atorvastatin Calcium (Atorvastatin 20 Mg Tab) 20 mg PO HS DONNIE Stop: 09/01/22 21:59 Last Admin: 08/10/22 21:20 Dose: 20 mg Bismuth Subsalicylate (Bismuth Subsalicylate Liqd 236 Ml) 15 ml PO PRN PRN PRN Reason: Loose Stool Stop: 08/31/22 20:49 Docusate Sodium (Docusate Sodium 100 Mg Cap) 100 mg PO HS DONNIE Stop: 09/01/22 21:59 Last Admin: 08/10/22 21:22 Dose: 100 mg Gabapentin (Gabapentin 400 Mg Cap) 400 mg PO BIDM [facility] Stop: 09/01/22 17:44 Last Admin: 08/11/22 08:40 Dose: 400 mg Hydroxyzine HCl (Hydroxyzine Hcl 25 Mg Tab) 50 mg PO HSZ PRN PRN Reason: Insomnia Stop: 08/31/22 20:49 Hydroxyzine HCl (Hydroxyzine Hcl 25 Mg Tab) 25 mg PO Q4H PRN PRN Reason: Anxiety Stop: 08/31/22 20:49 Last Admin: 08/05/22 07:37 Dose: 25 mg Levothyroxine Sodium (Levothyroxine Sodium 50 Mcg Tablet) 50 mcg PO DAILYBB [facility] Stop: 09/02/22 07:59 Last Admin: 08/11/22 08:39 Dose: 50 mcg Glacier Carbonate (Glacier Carbonate 300 Mg Tab) 450 mg PO HS [facility] Stop: 09/09/22 21:59 Last Admin: 08/10/22 21:21 Dose: 450 mg Lorazepam (Lorazepam 0.5 Mg Tab) 0.25 mg PO TID [facility] Stop: 09/08/22 20:59 Last Admin: 08/11/22 14:50 Dose: Not Given Magnesium Hydroxide (Magnesium Hydroxide Susp 30 Ml Udc) 30 ml PO DAILY PRN PRN Reason: Constipation Stop: 08/31/22 20:49 Melatonin (Melatonin 3 Mg Tab) 6 mg PO HS [facility] Stop: 09/01/22 21:59 Last Admin: 08/10/22 21:21 Dose: 6 mg (Deutetrabenazine 6 Mg)-Non-Formulary Patient's Own Med 1 each PO BID [facility] Stop: 08/16/22 21:01 Last Admin: 08/11/22 08:40 Dose: 6 mg (Duetetrabenazine 9 Mg)-Non-Formulary Patient's Own Med 1 each PO BID [facility] Stop: 08/16/22 21:01 Last Admin: 08/11/22 08:41 Dose: 9 mg Quetiapine Fumarate (Quetiapine Fumarate 25 Mg Tablet) 50 mg PO HS [facility] Stop: 09/08/22 21:59 Last Admin: 08/10/22 21:21 Dose: 50 mg Quetiapine Fumarate (Quetiapine Fumarate 25 Mg Tablet) 12.5 mg PO QAM [facility] Stop: 09/11/22 08:59 Sodium Chloride (Sodium Chloride 0.65% Na Soln 45 Ml ([place])) 1 - 2 sprays NA PRN PRN PRN Reason: Nasal Dryness/Congestion Stop: 08/31/22 20:49 Trazodone HCl (Trazodone Hcl 50 Mg Tab) 50 mg PO HS PRN PRN Reason: Insomnia Stop: 09/10/22 21:59 Mental Health & Subst Abuse Tx Psychiatrist Name of Psychiatrist: Jorge Pearson Psychiatrist's Date Of Appointment With Psychiatric Provider: 08/20/2022 Time of Appointment with Psychiatrist: 10:20am Psychiatric Appointment Comment: [address] [place] [address] Therapist Name of Therapist: None Handwriting Expert Name of Handwriting Expert: Joanne Collazo (new assigned CM) Phone Number for Handwriting Expert: [phone] Date of Appointment with Handwriting Expert: 08/16/22 Time of Appointment with Handwriting Expert: 4:30pm Case Management Appointment Comment: CM will come to home Post Discharge Appointments Primary Care Physician Name Of Family Doctor/PCP: Jorge Pearson- [facility] Date of Future Appointment with PCP: 09/08/2022 Time of Appointment with PCP: 10am Provider Appointment Comment: [address] [place] [address] (2) UTI (urinary tract infection) Hematuria presence: without hematuria Urinary tract infection type: acute cystitis Qualified Code(s): N30.00 - Acute cystitis without hematuria
[2022-08-11] MEDS: ATORVASTATIN 20 MG TAB PO SCH (20:48)
[2022-08-11] MEDS: DOCUSATE SODIUM 100 MG CAP PO SCH (20:49)
[2022-08-11] MEDS: LITHIUM CARBONATE 300 MG TAB PO SCH (20:49)
[2022-08-11] MEDS: MELATONIN 3 MG TAB PO SCH (20:50)
[2022-08-12] MEDS: ASPIRIN 81 MG ECTAB PO SCH (09:01)
[2022-08-12] MEDS: LEVOTHYROXINE SODIUM 50 MCG TABLET PO SCH (09:01)
[2022-08-12] MEDS: LORazepam 0.5 MG TAB PO SCH ×3 (09:02→21:30)
[2022-08-12] MEDS: GABAPENTIN 400 MG CAP PO SCH ×2 (09:02→17:29)
[2022-08-12] MEDS: DEUTETRABENAZINE 6 MG PO SCH ×2 (09:05→21:22)
[2022-08-12] MEDS: QUEtiapine FUMARATE 25 MG TABLET PO SCH ×2 (09:06→21:31)
[2022-08-12] MEDS: DEUTETRABENAZINE 9 MG PO SCH ×2 (09:06→21:27)
--- NOTE | 2022-08-12 14:50 | Psychiatric Progress Note ---
Date of Service August 12, 2022 Impression / Recommendations Impression 62 year old woman with a history of schizoaffective disorder, tardive dyskinesia, anxiety, falls and confusion/delirium with past UTIs who was admitted for worsening sleep, mood changes with SI with plan and confusion. Diagnostically consistent with unspecified psychosis, differential includes exacerbation of schizoaffective disorder vs delirium 2/2 UTI vs mixed episode of bipolar disorder vs cognitive process vs major depressive episode. She is deemed unstable and requires psychiatric hospitalization for diagnostic clarification, safety and stabilization, medication management and development of further copi ng skills. MNPR due to high levels of irritability, posturing, paranoia, delusions 08/12/2022: In what has practically become a ritual, pt tells me she's "not doing too good". She is again asleep on approach. She was up earlier and has been eating fairly well and has been participating to a degree in the milieu. 08/11/2022: Reported to have exhibited improvements in a number of areas such as ADL's, eating behavior, overall distress. However, she's been sleeping quite a lot and has been bed-seeking. When I saw pt she was initially asleep, not exhibiting any abnormal movements. As soon as she woke, she pulled down the cover to reveal her hand shaking 08/10/2028: Slept better last night, though only after receiving trazodone. She has slept much of the day today, though she was up to eat and fed herself more than she has been doing. When I saw her she was sleeping and woke only briefly. Given her recent poor sleep and excessive physical activity, she may simply be making up for missed sleep. Will monitor carefully for evidence of sedation 08/09/2022: Was willing to stop pacing and speak with me, albeit briefly, and she wished to speak in the hallway rather than in an interview room. Was up last night and required PRN trazodone and redirection back into her room. Remains overwhelmed with anxiety, fearful that "something bad" has happened to her family. Has been tolerating quetiapine with no evidence of adverse effects, although her existing tardive dyskinesia remains very evident. [place] level was 0.7 mmol/L, and at this time I don't think trying to get that any higher is either a priority or advisable. Consolidating the dose is likely to reduce the risk of kidney injury. She continues to need a more effective antipsychotic and anxiolytic regimen. Her history of adverse medication reactions is of concern, and accounts for the low dose and slow titration of quetiapine, though she appears to be tolerating it well. Her pacing increases her risk of falls as does her current medication. While adding lorazepam, a drug known to increase falls risk, could certainly increase her aggregate risk, it's my opinion that her incessant restless pacing is the largest contributor to her overall falls risk and that reducing anxiety would therefore likely reduce her fall risk. Such a trial would, of course, necessitate the same very low dosing and slow titration being utilized with the quetiapine. 08/08/2022: Last evening was racing around the halls and, literally, bouncing off the leung. She was observed stumbling with a small resulting "rug burn" abrasion. Held an extended 40-min. video meeting with pt, her son, RN, social security assessor. Pt did speak some, though it was difficult even for her son to elicit responses. These were not always very helpful; e.g., when asked if she wanted to get better, her response was "I don't know". A repeated topic was her worry that family are "gone". She wouldn't elaborate on this, but has used "gone" synonymously with "" in other contexts. Pt appears confused and staff have wondered if she might be more cognitively impaired at baseline than previously appreciated. This is an intriguing possibility, but would not explain the changes since admission. Pt acknowledges that the main reason she's spoken so little is that she's "afraid", though she won't say of what. While I can't identify any evidence of hallucinosis, pt's overall behavior as well as some of her mysterious utterances suggests delusions, particularly persecutory delusions. While pt's pacing could represent akathisia, this does not appear to have worsened after quetiapine was started at the current extremely low dose of 12.5 mg, and the time course suggests benefit from this medication in that pt was able to sleep after the initial dose (though she required trazodone in addition last night in order to sleep). Taken together, I think the evidence suggests that pt would benefit not just from thymoleptic effects of a mood-stabilizer such as lithium but also from antipsychotic medication. Her history of significant side effects from such medications certainly mandates caution, but in inpatient trial would be well warranted while other medications are titrated to effective doses. Pt's primary complaint is anxiety. Son's primary concern is depression. [place] may address mood, but pt may require an "antidepressant" medication with anx iolytic effect. 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 08/07/2022: Pt wanders the halls today in a repetitive loop. She did not participate in groups, though she did briefly enter the room and sit for a time. Has hardly eaten. I attempted multiple times to talk with pt. She did not stop or slow down, and when I blocked her path she simply turned around and walked away. She made no eye contact but I noted her looking at me with side glances. She did not appear to react in any way to anything I said nor did she say anything at all. She exhibited a marked parkinsonian-appearing tremor of her hands that appeared to vary in severity with observation (in that it was hardly noticeable when she didn't know she was being observed and was quite marked when it was obvious she was being observed). She continues to evidence no posturing, stereotypies, cataplexy, echopraxia, or mannerisms Reviewed [employer] pharmacogenetic testing report. 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 She appears to have had a significant response to low-dose quetiapine in the sense of less distress and less evidence of psychosis. She appears in some ways to have worsened over the course of her stay and we must remain open to the possibility this could represent adverse medication effects. 08/06/2022: Slept much better last night after addition of low dose seroquel wi thout any signs for side effects or NMS. In fact TD movements are better today and she seems calmer. No evidence for side effects to lithium. Ongoing poor po intake and more mute today but no other signs to suggest catatonia-no posturing/stereotypies/cataplexy,echolalia/echopraxia or mannerisms. Still seems most suggestive of mixed episode of BPAD versus resolving delirium from UTI. (1) Unspecified psychosis not due to a substance or known physiological condition: (2) UTI (urinary tract infection): Plan 08/12/2022: * continue quetiapine 12.5 mg QAM & 50 mg QHS * continue lithium 450 mg QHS * reduce lorazepam to 0.25 mg BID, monitor for daytime sedation and gait instability * continue deutetrabenazine 12 mg BID * continue trazodone 50 mg QHS PRN insomnia 08/11/2022: * hold quetiapine this AM then resume at 12.5 mg QAM & 50 mg QHS * continue lithium 450 mg QHS * continue lorazepam 0.25 mg TID, monitor for daytime sedation and gait instability * continue deutetrabenazine 12 mg BID * reduce trazodone to 50 mg QHS, change back to PRN 08/10/2022: * continue quetiapine 25 mg QAM & 50 mg QHS * continue lithium 450 mg QHS * continue lorazepam 0.25 mg TID, monitor for daytime sedation and gait instability * continue deutetrabenazine 12 mg BID * continue trazodone 100 mg QHS 08/09/2022: * increase quetiapine to 25 mg QAM & 50 mg QHS * consolidate lithium to 450 mg QHS starting tomorrow * cautiously add low-dose lorazepam 0.25 mg TID, monitor for daytime sedation and gait instability * increase deutetrabenazine to 12 mg BID as part of planned titration * increase trazodone to 100 mg QHS change to scheduled from PRN 08/08/2022: * increase quetiapine to 12.5 mg QAM & 25 mg QHS * continue lithium 150 mg TID * lithium level tomorrow AM * continue deutetrabenazine 12 mg BID * continue trazodone 50 mg QHS PRN insomnia 08/07/2022: * increase lithium to 150 mg TID given very low chance blood level is near therapeutic at BID dosing * lithium level in 2 days * continue quetiapine 12.5 mg QHS * continue deutetrabenazine 12 mg BID * continue trazodone 50 mg QHS 08/06/2022: Continue current medications and treatment plan. [place] level ordered for 08/09/2022 prior to AM dose. 08/05/2022: Start seroquel 12.5mg HS 08/04/2022: Increased [place] to 150mg BID. 08/03/2022: Li level tonight at 9pm for 12 hour trough. 08/02/2022: The patient was admitted to the [facility] ([facility]) on q15 min checks (behavioral with suicide precautions) for safety. The patient will participate in group, recreational, and milieu therapies and will be offered additional individual and family sessions as clinically appropriate. -Continue prior to admission: [place] 150mg daily (long standing dose), deutetrabenazine 9mg BID for one more day and then increase to 12mg BID tomorrow, gabapentin 400mg BIDM -Hold temazepam -Trazodone 50mg HS prn for insomnia -[place] level tomorrow evening for 12 hour trough -Keflex 500mg BID for 5 more doses (3 days total) per ED provider recommendations for UTI given positive culture results Inventory Assets Strengths: supportive relationships, willing to get treatment Needs: safety and stabilization, medication adjustment, additional coping skills, increased outpatient services Suicide Risk Level Suicide Risk Level: Moderate (q15 min suicide checks) (psychosis, confusion and periods of tearfulness with SI with plan prior to admission but no recent SI and feels safe in the hospital, agrees to let nursing/staff know should they develop plan, intent or feel unable to remain safe. ) Risk Factors Assessment : Yes Do You Have Access To A Gun?: No Health Problems: Yes Mental Health Diagnoses: Yes Previous Attempt: No Previous Psychiatric Hospitalization: Yes Protective Factors Assessment : Yes Employed: No Stable Relationships: Yes Supportive Family: Yes Good Rapport with Provider: Yes Interval History Identifying Information ALVARO FRAIRE is a 62-year-old woman who currently lives in [place] with her , has a history of schizoaffective disorder, tardive dyskinesia, generalized anxiety disorder, and was admitted on 08/01/22 20:50 on a 201 voluntary commitment for increased confusion, psychosis and depression with SI. Chief Complaint "Not so great". Review of Systems Sleep Information Total Hours of Sleep: 7.25 Sleep Comments: pt given melotonin per rn. pt on q-15 minute checks Meal Information Percent Meal Consumed - Breakfast: 0 Percent Meal Consumed - Lunch: 25 Percent Meal Consumed - Dinner: 50 Nutrition Comment: pt. asked staff to hold breakfast tray for later. Meal dated, labeled and refrigerated. Subjective Subjective Patient was seen & assessed and interval progress reviewed with treatment team Physical Exam Psychiatric Orientation: oriented to person, oriented to place and + guarded; + not alert drowsy Apperance: appropriately dressed and appropriately groomed Eye Contact: + poor eye contact Motor Behavior: + tremor (that appears parkinsonian); + abnormal motor movements Speech: normal rate/rhythm/volume of speech (brief) Affect: + blunted affect Mood: + depressed mood, + anxious mood and + irritable mood Thought Process: + concrete thought process (brief) Thought Content: + paranoid and + delusions Suicidal Thoughts: denies suicidal thoughts, denies suicidal plan and denies suicidal intent Homicidal Thoughts: denies homicidal thoughts Hallucinations: + auditory hallucinations; no visual hallucinations Cognition: recent memory grossly intact and remote memory grossly intact; + attention not intact and + language not intact Estimated Intelligence: consistent with education level Insight: + limited insight Judgment: + severely impaired judgement Vital Signs (Past 24 Hours) Last Vital Signs Temp 36.9 C 08/12/22 06:41 Pulse 55 L 08/12/22 06:41 Resp 16 08/12/22 06:41 BP 107/58 L 08/12/22 06:41 Pulse Ox 96 08/10/22 21:32 O2 Del Method Room Air 08/10/22 21:32 Results & Data ([facility]) Current Inpatient Medications Current Inpatient Medications: Current Inpatient Medications Acetaminophen (Acetaminophen 325 Mg Tab) 650 mg PO Q4H PRN PRN Reason: Headache or Minor Fever Stop: 08/31/22 20:49 Last Admin: 08/01/22 21:28 Dose: 650 mg Al Hydrox/Mg Hydrox/Simethicone (Aluminum/Magnesium Susp 30 Ml Udc) 30 ml PO Q4H PRN PRN Reason: GI Upset Stop: 08/31/22 20:49 Last Admin: 08/09/22 15:41 Dose: 30 ml Aspirin (Aspirin 81 Mg Ectab) 81 mg PO DAILY DONNIE Stop: 09/02/22 08:59 Last Admin: 08/12/22 09:01 Dose: 81 mg Atorvastatin Calcium (Atorvastatin 20 Mg Tab) 20 mg PO HS [facility] Stop: 09/01/22 21:59 Last Admin: 08/11/22 20:48 Dose: 20 mg Bismuth Subsalicylate (Bismuth Subsalicylate Liqd 236 Ml) 15 ml PO PRN PRN PRN Reason: Loose Stool Stop: 08/31/22 20:49 Docusate Sodium (Docusate Sodium 100 Mg Cap) 100 mg PO HS DONNIE Stop: 09/01/22 21:59 Last Admin: 08/11/22 20:49 Dose: 100 mg Gabapentin (Gabapentin 400 Mg Cap) 400 mg PO BIDM [facility] Stop: 09/01/22 17:44 Last Admin: 08/12/22 09:02 Dose: 400 mg Hydroxyzine HCl (Hydroxyzine Hcl 25 Mg Tab) 50 mg PO HSZ PRN PRN Reason: Insomnia Stop: 08/31/22 20:49 Hydroxyzine HCl (Hydroxyzine Hcl 25 Mg Tab) 25 mg PO Q4H PRN PRN Reason: Anxiety Stop: 08/31/22 20:49 Last Admin: 08/05/22 07:37 Dose: 25 mg Levothyroxine Sodium (Levothyroxine Sodium 50 Mcg Tablet) 50 mcg PO DAILYBB [facility] Stop: 09/02/22 07:59 Last Admin: 08/12/22 09:01 Dose: 50 mcg [place] Carbonate ([place] Carbonate 300 Mg Tab) 450 mg PO HS [facility] Stop: 09/09/22 21:59 Last Admin: 08/11/22 20:49 Dose: 450 mg Lorazepam (Lorazepam 0.5 Mg Tab) 0.25 mg PO TID DONNIE Stop: 09/08/22 20:59 Last Admin: 08/12/22 14:04 Dose: Not Given Magnesium Hydroxide (Magnesium Hydroxide Susp 30 Ml Udc) 30 ml PO DAILY PRN PRN Reason: Constipation Stop: 08/31/22 20:49 Melatonin (Melatonin 3 Mg Tab) 6 mg PO [facility] Stop: 09/01/22 21:59 Last Admin: 08/11/22 20:50 Dose: 6 mg (Deutetrabenazine 6 Mg)-Non-Formulary Patient's Own Med 1 each PO BID [facility] Stop: 08/16/22 21:01 Last Admin: 08/12/22 09:05 Dose: 6 mg (Duetetrabenazine 9 Mg)-Non-Formulary Patient's Own Med 1 each PO BID DONNIE Stop: 08/16/22 21:01 Last Admin: 08/12/22 09:06 Dose: 9 mg Quetiapine Fumarate (Quetiapine Fumarate 25 Mg Tablet) 50 mg PO HS DONNIE Stop: 09/08/22 21:59 Last Admin: 08/11/22 20:50 Dose: 50 mg Quetiapine Fumarate (Quetiapine Fumarate 25 Mg Tablet) 12.5 mg PO QAM DONNIE Stop: 09/11/22 08:59 Last Admin: 08/12/22 09:06 Dose: 12.5 mg Sodium Chloride (Sodium Chloride 0.65% Na Soln 45 Ml ([place])) 1 - 2 sprays NA PRN PRN PRN Reason: Nasal Dryness/Congestion Stop: 08/31/22 20:49 Trazodone HCl (Trazodone Hcl 50 Mg Tab) 50 mg PO HS PRN PRN Reason: Insomnia Stop: 09/10/22 21:59 Mental Health & Subst Abuse Tx Psychiatrist Name of Psychiatrist: Jorge Pearson Psychiatrist's Date Of Appointment With Psychiatric Provider: 08/20/2022 Time of Appointment with Psychiatrist: 10:20am Psychiatric Appointment Comment: [address] [place] [address] Therapist Name of Therapist: None Printer Slotter Helper Name of Printer Slotter Helper: Joanne Collazo (new assigned CM) Phone Number for Printer Slotter Helper: [phone] Date of Appointment with Printer Slotter Helper: 08/16/22 Time of Appointment with Printer Slotter Helper: 4:30pm Case Management Appointment Comment: CM will come to home Post Discharge Appointments Primary Care Physician Name Of Family Doctor/PCP: [facility] Date of Future Appointment with PCP: 09/08/2022 Time of Appointment with PCP: 10am Provider Appointment Comment: [address] [place] [address] (2) UTI (urinary tract infection) Hematuria presence: without hematuria Urinary tract infection type: acute cystitis Qualified Code(s): N30.00 - Acute cystitis without hematuria
[2022-08-12] MEDS: ATORVASTATIN 20 MG TAB PO SCH (21:24)
[2022-08-12] MEDS: DOCUSATE SODIUM 100 MG CAP PO SCH (21:24)
[2022-08-12] MEDS: LITHIUM CARBONATE 300 MG TAB PO SCH (21:24)
[2022-08-12] MEDS: MELATONIN 3 MG TAB PO SCH (21:27)
[2022-08-13] MEDS: LEVOTHYROXINE SODIUM 50 MCG TABLET PO SCH (09:17)
[2022-08-13] MEDS: ASPIRIN 81 MG ECTAB PO SCH (09:17)
[2022-08-13] MEDS: GABAPENTIN 400 MG CAP PO SCH (09:18)
[2022-08-13] MEDS: QUEtiapine FUMARATE 25 MG TABLET PO SCH (09:18)
[2022-08-13] MEDS: LORazepam 0.5 MG TAB PO SCH (09:20)
[2022-08-13] MEDS: DEUTETRABENAZINE 6 MG PO SCH (09:22)
[2022-08-13] MEDS: DEUTETRABENAZINE 9 MG PO SCH (09:23)
--- NOTE | 2022-08-13 10:11 | Discharge Summary ---
Date of Service August 13, 2022 History of Present Illness Taniya presents for admission for worsening depression with confusion and paranoia including worries that she'll be shot by her uncle or that she accidentally killed her grandchildren. She recently completed a course of Macrobid for a UTI but on presentation to the ED yesterday had symptoms and UA consistent with ongoing UTI for which ED provider recommended ongoing Keflex given positive urine culture. While in the ED she was very tearful, reporting f eeling like an outcast in her family, endorsed SI with thoughts of overdosing on her medication and auditory hallucinations telling her to run away. Additional history per ED psych CM note from 08/01/2022: "Taniya admits to feeling suicidal for the past couple weeks with thoughts of overdosing on her medication. She also endorses auditory hallucinations telling her to run away. She follows with Tyra Higgins at [facility] and carries diagnoses of bipolar disorder and schizophrenia. She endorses depressive symptoms of sadness, crying, feelings of hopelessness, poor concentration, decreased appetite, and little to no sleep for a period of several weeks. She has had increased anxiety. Denies SIB, substance use, and trauma/abuse hx. Spoke to Taniya's son, eBnnie, with Taniya's permission. He states that Taniya has been increasingly paranoid and depressed with her reporting that she's significantly decompensated in her mental health this past week. He is supportive in her receiving inpatient treatment, preferably at [address] [place] [address]. Taniya was uncertain about the need for inpatient treatment but after discussing with her the symptoms she's been having, she is agreeable to receiving inpatient treatment." She states increased difficulty sleeping over an unclear time period. When asked about her and things at home she states "good if I have a , I don't know if I have one". She agrees she has been confused and thinks this worsened over the last few days. States she's had increased urinary frequency. She has been transitioning to a new medication for tardive dyskinesia, deutetrabenazine, but she doesn't think this is helping noting "I'm shaking even more". When we start to discuss her other medications and her outpatient providers she becomes increasingly tearful and appears to be possibly responding to internal stimuli. She then states "I'm fine" repeatedly and exits the room. Taniya struggled to participate in the interview but tolerated a brief discussion before abruptly leaving the room and then re-entering and posturing toward me in an invasive manner with intense eye contact at which point the interview was completed. Physical Exam Psychiatric Orientation: alert, oriented to person, oriented to place, oriented to time and + guarded Apperance: appropriately dressed and appropriately groomed Eye Contact: + fair eye contact Motor Behavior: + EPS (significant tardive dyskinesia of hands and feet, some tongue protrusions) and + tremor (that appears parkinsonian) Speech: normal rate/rhythm/volume of speech (brief) Affect: + irritable affect Mood: + anxious mood and + irritable mood Thought Process: + concrete thought process Thought Content: + paranoid Suicidal Thoughts: denies suicidal thoughts, denies suicidal plan and denies suicidal intent Homicidal Thoughts: denies homicidal thoughts Hallucinations: no auditory hallucinations and no visual hallucinations Cognition: recent memory grossly intact, remote memory grossly intact and la nguage grossly intact; + attention not intact Estimated Intelligence: consistent with education level Insight: + limited insight Judgment: + severely impaired judgement Vital Signs (Past 24 Hours) Last Vital Signs Temp 36.6 C 08/13/22 06:35 Pulse 60 08/13/22 06:35 Resp 16 08/13/22 06:35 BP 127/76 08/13/22 06:35 Pulse Ox 96 08/10/22 21:32 O2 Del Method Room Air 08/10/22 21:32 Principal Diagnosis Psychotic Disorder Psychiatric Data See daily stay summary. In short, safety was maintained and the patient was cooperative with care. Medication changes included adjustment of lithium and addition of quetiapine and they tolerated this well. A family session was held and safety plan was completed prior to discharge. 08/12/2022: In what has practically become a ritual, pt tells me she's "not doing too good". She is again asleep on approach. She was up earlier and has been eating fairly well and has been participating to a degree in the milieu. 08/11/2022: Reported to have exhibited improvements in a number of areas such as ADL's, eating behavior, overall distress. However, she's been sleeping quite a lot and has been bed-seeking. When I saw pt she was initially asleep, not exhibiting any abnormal movements. As soon as she woke, she pulled down the cover to reveal her hand shaking 08/10/2028: Slept better last night, though only after receiving trazodone. She has slept much of the day today, though she was up to eat and fed herself more than she has been doing. When I saw her she was sleeping and woke only briefly. Given her recent poor sleep and excessive physical activity, she may simply be making up for missed sleep. Will monitor carefully for evidence of sedation 08/09/2022: Was willing to stop pacing and speak with me, albeit briefly, and she wished to speak in the hallway rather than in an interview room. Was up last night and required PRN trazodone and redirection back into her room. Remains overwhelmed with anxiety, fearful that "something bad" has happened to her family. Has been tolerating quetiapine with no evidence of adverse effects, although her existing tardive dyskinesia remains very evident. Burna level was 0.7 mmol/L, and at this time I don't think trying to get that any higher is either a priority or advisable. Consolidating the dose is likely to reduce the risk of kidney injury. She continues to need a more effective antipsychotic and anxiolytic regimen. Her history of adverse medication reactions is of concern, and accounts for the low dose and slow titration of quetiapine, though she appears to be tolerating it well. Her pacing increases her risk of falls as does her current medication. While adding lorazepam, a drug known to increase falls risk, could certainly increase her aggregate risk, it's my opinion that her incessant restless pacing is the largest contributor to her overall falls risk and that reducing anxiety would therefore likely reduce her fall risk. Such a trial would, of course, necessitate the same very low dosing and slow titration being utilized with the quetiapine. 08/08/2022: Last evening was racing around the halls and, literally, bouncing off the leung. She was observed stumbling with a small resulting "rug burn" abrasion. Held an extended 40-min. video meeting with pt, her son, RN, forensic social worker. Pt did speak some, though it was difficult even for her son to elicit responses. These were not always very helpful; e.g., when asked if she wanted to get better, her response was "I don't know". A repeated topic was her worry that family are "gone". She wouldn't elaborate on this, but has used "gone" synonymously with "" in other contexts. Pt appears confused and staff have wondered if she might be more cognitively impaired at baseline than previously appreciated. This is an intriguing possibility, but would not explain the changes since admission. Pt acknowledges that the main reason she's spoken so little is that she's "afraid", though she won't say of what. While I can't identify any evidence of hallucinosis, pt's overall behavior as well as some of her mysterious utterances suggests delusions, particularly persecutory delusions. While pt's pacing could represent akathisia, this does not appear to have worsened after quetiapine was started at the current extremely low dose of 12.5 mg, and the time course suggests benefit from this medication in that pt was able to sleep after the initial dose (though she required trazodone in addition last night in order to sleep). Taken together, I think the evidence suggests that pt would benefit not just from thymoleptic effects of a mood-stabilizer such as lithium but also from antipsychotic medication. Her history of significant side effects from such medications certainly mandates caution, but in inpatient trial would be well warranted while other medications are titrated to effective doses. Pt's primary complaint is anxiety. Son's primary concern is depression. Burna may address mood, but pt may require an "antidepressant" medication with anxiolytic effect. 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 08/07/2022: Pt wanders the halls today in a repetitive loop. She did not participate in groups, though she did briefly enter the room and sit for a time. Has hardly eaten. I attempted multiple times to talk with pt. She did not stop or slow down, and when I blocked her path she simply turned around and walked away. She made no eye contact but I noted her looking at me with side glances. She did not appear to react in any way to anything I said nor did she say anything at all. She exhibited a marked parkinsonian-appearing tremor of her hands that appeared to vary in severity with observation (in that it was hardly noticeable when she didn't know she was being observed and was quite marked when it was obvious she was being observed). She continues to evidence no posturing, stereotypies, cataplexy, echopraxia, or mannerisms Reviewed [facility] pharmacogenetic testing report. 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 She appears to have had a significant response to low-dose quetiapine in the sense of less distress and less evidence of psychosis. She appears in some ways to have worsened over the course of her stay and we must remain open to the possibility this could represent adverse medication effects. 08/06/2022: Slept much better last night after addition of low dose seroquel without any signs for side effects or NMS. In fact TD movements are better today and she seems calmer. No evidence for side effects to lithium. Ongoing poor po intake and more mute today but no other signs to suggest catatonia-no posturing/stereotypies/cataplexy,echolalia/echopraxia or mannerisms. Still seems most suggestive of mixed episode of BPAD versus resolving delirium from UTI. Day of Discharge Assessment Today the patient voices readiness for discharge. They note improvement in mood and deny thoughts to harm self or others. Thoughts remain organized and they are improved from admission. There is no evidence of psychosis. They agree to take mediations as prescribed and keep follow-up appointments. They are stable for discharge to outpatient level of care. Transition of Care Transition Of Care Record: was reviewed with the patient Advance Directives Advance Directives Information Provided: Yes Advance Directives: No Mental Health Advance Directive: No Advance Directives on File: No Living Will: No Power of Tool And Fixture Repairer: No Advance Directives Reason:: Declines as Mental Health Visit. Suicide Risk Level Suicide Risk Level: Low (q15 min observation checks) Suicide Risk Level Comments: denies suicidal thoughts Risk Factors Assessment : Yes Do You Have Access To A Gun?: No Health Problems: Yes Mental Health Diagnoses: Yes Previous Attempt: No Previous Psychiatric Hospitalization: Yes Protective Factors Assessment : Yes Employed: No Stable Relationships: Yes Supportive Family: Yes Good Rapport with Provider: Yes Discharge Data Lab Results 08/01/22 08/01/22 08/01/22 12:44 12:44 12:44 WBC RBC Hgb Hct MCV MCH MCHC RDW Std Deviation RDW Coeff of Zakiya Plt Count MPV Immature Gran % (Auto) Neut % (Auto) Lymph % (Auto) [place] % (Auto) Eos % (Auto) Baso % (Auto) Neut # (Auto) Lymph # (Auto) [place] # (Auto) Eos # (Auto) Baso # (Auto) Immature Gran # (Auto) Sodium Potassium Chloride Carbon Dioxide Anion Gap BUN Creatinine Est Cr Clr Drug Dosing Est GFR ( Amer) Est GFR (Non-Af Amer) BUN/Creatinine Ratio Glucose Calcium Total Bilirubin AST ALT Alkaline Phosphatase Total Protein Albumin Globulin Albumin/Globulin Ratio TSH Urine Color Yellow Urine Appearance Cloudy A Urine pH 6.5 Ur Specific [place] 1.021 Urine Protein Negative Urine Glucose (UA) Negative Urine Ketones Trace H Urine Blood Negative Urine Nitrite Negative Urine Bilirubin Negative Urine Urobilinogen Negative Ur Leukocyte Esterase 2+ H Urine WBC (Auto) 10-30 H Urine RBC (Auto) 0-4 U Hyaline Cast (Auto) 5-10 H U Epithel Cells (Auto) >30 H Urine Bacteria (Auto) 4+ H Salicylates Urine Opiates Screen Neg Ur Methadone, Qual Neg Acetaminophen Urine Barbiturates Neg Ur Phencyclidine (PCP) Neg U Amphetamin/Meth Scrn Neg MDMA (Ecstasy) Screen Neg U Benzodiazepines Scrn Neg Burna Ur Cocaine Metabolite Neg U Marijuana (THC) Screen Neg Ethyl Alcohol mg/dL SARS-CoV-2, RNA, NAAT NEGATIVE 08/01/22 08/01/22 08/01/22 12:49 12:49 12:49 WBC 7.68 RBC 4.94 Hgb 15.0 Hct 44.2 MCV 89.5 MCH 30.4 MCHC 33.9 RDW Std Deviation 40.0 RDW Coeff of Zakiya 12.2 Plt Count 192 MPV 10.6 Immature Gran % (Auto) 0.4 Neut % (Auto) 66.2 Lymph % (Auto) 25.3 [place] % (Auto) 6.3 Eos % (Auto) 1.3 Baso % (Auto) 0.5 Neut # (Auto) 5.09 Lymph # (Auto) 1.94 [place] # (Auto) 0.48 Eos # (Auto) 0.10 Baso # (Auto) 0.04 Immature Gran # (Auto) 0.03 Sodium 140 Potassium 3.9 Chloride 109 H Carbon Dioxide 24 Anion Gap 7 BUN 18 Creatinine 0.81 Est Cr Clr Drug Dosing Not Reportable Est GFR ( Amer) 89.0 Est GFR (Non-Af Amer) 76.8 BUN/Creatinine Ratio 22.2 H Glucose 141 H Calcium 9.7 Total Bilirubin 1.0 AST 26 ALT 32 Alkaline Phosphatase 99 Total Protein 7.5 Albumin 4.5 Globulin 3.0 Albumin/Globulin Ratio 1.5 TSH 1.271 Urine Color Urine Appearance Urine pH Ur Specific [place] Urine Protein Urine Glucose (UA) Urine Ketones Urine Blood Urine Nitrite Urine Bilirubin Urine Urobilinogen Ur Leukocyte Esterase Urine WBC (Auto) Urine RBC (Auto) U Hyaline Cast (Auto) U Epithel Cells (Auto) Urine Bacteria (Auto) Salicylates Urine Opiates Screen Ur Methadone, Qual Acetaminophen Urine Barbiturates Ur Phencyclidine (PCP) U Amphetamin/Meth Scrn MDMA (Ecstasy) Screen U Benzodiazepines Scrn Burna Ur Cocaine Metabolite U Marijuana (THC) Screen Ethyl Alcohol mg/dL SARS-CoV-2, RNA, NAAT 08/01/22 08/01/22 08/03/22 12:49 12:49 21:37 WBC RBC Hgb Hct MCV MCH MCHC RDW Std Deviation RDW Coeff of Zakiya Plt Count MPV Immature Gran % (Auto) Neut % (Auto) Lymph % (Auto) [place] % (Auto) Eos % (Auto) Baso % (Auto) Neut # (Auto) Lymph # (Auto) [place] # (Auto) Eos # (Auto) Baso # (Auto) Immature Gran # (Auto) Sodium Potassium Chloride Carbon Dioxide Anion Gap BUN Creatinine Est Cr Clr Drug Dosing Est GFR ( Amer) Est GFR (Non-Af Amer) BUN/Creatinine Ratio Glucose Calcium Total Bilirubin AST ALT Alkaline Phosphatase Total Protein Albumin Globulin Albumin/Globulin Ratio TSH Urine Color Urine Appearance Urine pH Ur Specific [place] Urine Protein Urine Glucose (UA) Urine Ketones Urine Blood Urine Nitrite Urine Bilirubin Urine Urobilinogen Ur Leukocyte Esterase Urine WBC (Auto) Urine RBC (Auto) U Hyaline Cast (Auto) U Epithel Cells (Auto) Urine Bacteria (Auto) Salicylates < 3.0 L Urine Opiates Screen Ur Methadone, Qual Acetaminophen < 3 L Urine Barbiturates Ur Phencyclidine (PCP) U Amphetamin/Meth Scrn MDMA (Ecstasy) Screen U Benzodiazepines Scrn Burna 0.2 L Ur Cocaine Metabolite U Marijuana (THC) Screen Ethyl Alcohol mg/dL < 10.0 SARS-CoV-2, RNA, NAAT 08/09/22 07:46 WBC RBC Hgb Hct MCV MCH MCHC RDW Std Deviation RDW Coeff of Zakiya Plt Count MPV Immature Gran % (Auto) Neut % (Auto) Lymph % (Auto) [place] % (Auto) Eos % (Auto) Baso % (Auto) Neut # (Auto) Lymph # (Auto) [place] # (Auto) Eos # (Auto) Baso # (Auto) Immature Gran # (Auto) Sodium Potassium Chloride Carbon Dioxide Anion Gap BUN Creatinine Est Cr Clr Drug Dosing Est GFR ( Amer) Est GFR (Non-Af Amer) BUN/Creatinine Ratio Glucose Calcium Total Bilirubin AST ALT Alkaline Phosphatase Total Protein Albumin Globulin Albumin/Globulin Ratio TSH Urine Color Urine Appearance Urine pH Ur Specific [place] Urine Protein Urine Glucose (UA) Urine Ketones Urine Blood Urine Nitrite Urine Bilirubin Urine Urobilinogen Ur Leukocyte Esterase Urine WBC (Auto) Urine RBC (Auto) U Hyaline Cast (Auto) U Epithel Cells (Auto) Urine Bacteria (Auto) Salicylates Urine Opiates Screen Ur Methadone, Qual Acetaminophen Urine Barbiturates Ur Phencyclidine (PCP) U Amphetamin/Meth Scrn MDMA (Ecstasy) Screen U Benzodiazepines Scrn Burna 0.7 Ur Cocaine Metabolite U Marijuana (THC) Screen Ethyl Alcohol mg/dL SARS-CoV-2, RNA, NAAT Hospital Course (1) Unspecified psychosis not due to a substance or known physiological condition: (2) UTI (urinary tract infection): Plan 08/12/2022: * continue quetiapine 12.5 mg QAM & 50 mg QHS * continue lithium 450 mg QHS * reduce lorazepam to 0.25 mg BID, monitor for daytime sedation and gait instability * continue deutetrabenazine 12 mg BID * continue trazodone 50 mg QHS PRN insomnia 08/11/2022: * hold quetiapine this AM then resume at 12.5 mg QAM & 50 mg QHS * continue lithium 450 mg QHS * continue lorazepam 0.25 mg TID, monitor for daytime sedation and gait instability * continue deutetrabenazine 12 mg BID * reduce trazodone to 50 mg QHS, change back to PRN 08/10/2022: * continue quetiapine 25 mg QAM & 50 mg QHS * continue lithium 450 mg QHS * continue lorazepam 0.25 mg TID, monitor for daytime sedation and gait instability * continue deutetrabenazine 12 mg BID * continue trazodone 100 mg QHS 08/09/2022: * increase quetiapine to 25 mg QAM & 50 mg QHS * consolidate lithium to 450 mg QHS starting tomorrow * cautiously add low-dose lorazepam 0.25 mg TID, monitor for daytime sedation and gait instability * increase deutetrabenazine to 12 mg BID as part of planned titration * increase trazodone to 100 mg QHS change to scheduled from PRN 08/08/2022: * increase quetiapine to 12.5 mg QAM & 25 mg QHS * continue lithium 150 mg TID * lithium level tomorrow AM * continue deutetrabenazine 12 mg BID * continue trazodone 50 mg QHS PRN insomnia 08/07/2022: * increase lithium to 150 mg TID given very low chance blood level is near therapeutic at BID dosing * lithium level in 2 days * continue quetiapine 12.5 mg QHS * continue deutetrabenazine 12 mg BID * continue trazodone 50 mg QHS 08/06/2022: Continue current medications and treatment plan. Burna level ordered for 08/09/2022 prior to AM dose. 08/05/2022: Start seroquel 12.5mg HS 08/04/2022: Increased Burna to 150mg BID. 08/03/2022: Li level tonight at 9pm for 12 hour trough. 08/02/2022: The patient was admitted to the [facility] ([facility] mental health unit) on q15 min checks (behavioral with suicide precautions) for safety. The patient will participate in group, recreational, and milieu therapies and will be offered additional individual and family sessions as clinically appropriate. -Continue prior to admission: Burna 150mg daily (long standing dose), deutetrabenazine 9mg BID for one more day and then increase to 12mg BID tomorrow, gabapentin 400mg BIDM -Hold temazepam -Trazodone 50mg HS prn for insomnia -Burna level tomorrow evening for 12 hour trough -Keflex 500mg BID for 5 more doses (3 days total) per ED provider recommendations for UTI given positive culture results Mental Health & Subst Abuse Tx Psychiatrist Name of Psychiatrist: Jorge Pearson Psychiatrist's Date Of Appointment With Psychiatric Provider: 08/20/2022 Time of Appointment with Psychiatrist: 10:20am Psychiatric Appointment Comment: [address] [place] [address] Therapist Name of Therapist: None Photo Tube Assembler Name of Photo Tube Assembler: Joanne Collazo (new assigned CM) Phone Number for Photo Tube Assembler: [phone] Date of Appointment with Photo Tube Assembler: 08/16/22 Time of Appointment with Photo Tube Assembler: 4:30pm Case Management Appointment Comment: CM will come to home Post Discharge Appointments Primary Care Physician Name Of Family Doctor/PCP: Jorge Pearson- Sonja Spears Primary Care Date of Future Appointment with PCP: 09/08/2022 Time of Appointment with PCP: 10am Provider Appointment Comment: [address] [place] [address] Discharge Plan Discharge Items Patient Disposition: Home - Self-Care Reason For Visit: MENTAL HEALTH EVAL Discharge Diagnosis: Psychotic Disorder Activity: Resume your previous activity Non-emergency contact: Primary Care Provider and Psychiatrist Call non-emergency contact if: you have any medication questions and your symptoms worsen Follow-up/Referrals: Sonja Spears DO [Primary Care Provider] - Diet: Regular Addtl Attending Provider Instructions: SPECIAL CARE INSTRUCTIONS: 1. Follow through with your scheduled aftercare appointments. If unable to keep an appointment, please call to reschedule. 2. Take your medication only as prescribed. Medication should not be changed or stopped without the approval of your doctor. In the event of worsening symptoms or concerns about side effects, contact your doctor immediately. 3. Utilize new healthy coping skills, anger management skills, and stress management skills learned during your hospitalization. Journal feelings and process them with a support person. Identify stressors or situations that may result in relapse, deterioration or inappropriate behaviors and develop a plan to deal with those issues. 4. If your coping skills are ineffective and you are in crisis, contact your outpatient providers for direction. If unable to reach your providers, please call the [facility] CRISIS LINE AT , go to the [facility] walk-in center at [address], [address], [place], or go to the closest Emergency Room. 5. Avoid alcohol and un-prescribed drugs. 6. You have been provided with the Mental Health Advance Directives Pamphlet for your review. 7. Your condition is stable for discharge to outpatient level of care, but recovery is an ongoing process. Ifthoughts to harm yourself or others return, follow the safety plan developed during your stay. Planning for a safe return home includes securing weapons. Our treatment team recommends weaponsbe removed from the home until your outpatient provider reassesses your progress. In rare cases where the items themselvescannot be removed, guns and ammunitionshould be secured separatelyand keys stored by a reliable personoutside of the home. If you were admitted on an involuntary commitment, the police or other legal authorities may be involved in this process. AFTERCARE APPOINTMENTS: * Please call your insurance company prior to your scheduled appointment to confirm your aftercare providers are covered. Take your insurance information to your appointments. WHO TO CALL AND WHEN: Medical Emergencies: For questions or emergencies related to your hospital stay, please contact the Inpatient Behavioral Health Unit at [phone]. A matting press tender is on-call 06/12 for the Behavioral Health Unit for emergencies At any time you feel your situation is an emergency, you may also call 911 immediately. Pending Studies at Discharge: No Stand-Alone Forms: [facility], Smoking Cessation Medications and DC Order Prescriptions: New trazodone 50 mg Tablet 50 mg PO HS PRN (Reason: insomnia) 30 Days Qty: 30 0RF quetiapine 25 mg Tablet 12.5 mg PO QAM 30 Days Qty: 15 0RF quetiapine 25 mg Tablet 50 mg PO HS 30 Days Qty: 60 0RF Continued Austedo TD Titratn Pk (Wk 1-2) 6 mg (14)- 9 mg (14) Tablets,Dose Pack See Rx Instructions .ROUTE .COMPLEX Rx Instructions: PT is week 2 of this medication melatonin 5 mg Tablet 5 mg PO HS atorvastatin [Lipitor] 20 mg tablet 20 mg PO HS Qty: 30 0RF docusate sodium [Colace] 100 mg capsule 100 - 200 mg PO HS aspirin 81 mg Tablet,Delayed Release (Dr/Ec) 81 mg PO DAILY gabapentin 400 mg Capsule 400 mg PO BIDM Qty: 1 0RF levothyroxine [Synthroid] 50 mcg tablet 50 mcg PO DAILY Qty: 30 0RF Changed lorazepam 0.5 mg tablet 0.25 mg PO BID PRN (Reason: Anxiety) 30 Days Qty: 15 0RF lithium carbonate 150 mg capsule 450 mg PO HS 30 Days Qty: 0 0RF Discontinued temazepam 7.5 mg Capsule 7.5 mg PO HS Discharge Orders: Discharge Order (Routine); Ordered 08/13/22 Ordered By: Josep Jimenez Admission Data Admit Date/Time: 08/01/22 20:50 Attending Provider: Marianela Morton Admit Provider: Marianela Morton Primary Care Provider: Sonja Spears Other Interventions: Discharge Summary Assessment (RN) Last Done: 08/13/22 10:29 PSY Interdisciplinary Discharge Planning Last Done: 08/13/22 10:28 Coding Level of Care Code 06699 D/C day mgmt > 30 min Diagnoses Unspecified psychosis not due to a substance or known physiological condition F29 UTI (urinary tract infection) N30.00 Hematuria presence: without hematuria Urinary tract infection type: acute cystitis Time Spent (min) 36
== END 2022-08-13 11:00 | disposition home or self-care (01) | DRG 885 ==
LOC: ED 12:18 → 3S 20:50

== ENCOUNTER 2022-12-14 11:00 | Inpatient (IN) ==
--- NOTE | 2022-12-14 11:12 | ED Triage Note ---
Date of Service December 14, 2022 History of Present Illness This patient was briefly evaluated while in triage. An abbreviated physical exam was performed. This patient is a 62-year-old Female who presents to the ED for evaluation of a positive blood culture. They were contacted this morning with test results. The patient complains of left knee pain and unsteadiness on her feet. The patient was seen initially for a possible UTI. The patient did fall yesterday, hitting her face. The patient's memory also appears to be fading, with difficulty with speech. Review of our pharmacist report indicated "Patient's blood culture 1/3 with gram positive bacilli. This had grown 5 days from visit. Discussed with Dr. Encarnacion. Suspect contaminate, no action taken at this time." Physical Exam CONSTITUTIONAL: Healthy and well nourished. Patient does not appear toxic. RESPIRATORY: Clear to auscultation bilaterally with no wheezing, crackles, rhonchi or stridor. CARDIOVASCULAR: Regular rate and rhythm with no murmurs, rubs or gallops. GASTROINTESTINAL: Bowel sounds present in all quadrants. MUSCULOSKELETAL: Examination shows mild tenderness over the left anterior knee region. INTEGUMENTARY: No rash or other significant dermatologic conditions noted. HEMATOLOGIC: No ecchymosis or petechiae. PSYCHIATRIC: Positive affect. NEUROLOGIC: No focal neurologic deficits noted. Initial orders for labs and / or imaging were placed and patient was placed in the waiting area until a bed is available. Please see further documentation for the full ED course.
--- NOTE | 2022-12-14 12:24 | XRay Report ---
XR chest 1V not portable HISTORY: 62 years-old Female weakness acute weakness COMPARISON: 12/07/2022 TECHNIQUE: PA view of the chest FINDINGS: Cardiomediastinal and hilar silhouettes are unchanged. No pneumothorax, pleural effusion, airspace co nsolidation or pulmonary edema. Degenerative changes of the shoulders and spine. IMPRESSION: No acute process. ACT 112: Negative or not required by law. The above report was generated using voice recognition software. It may contain grammatical, syntax o r spelling errors. Electronically signed by: Damon Medrano M.D. 12/14/2022 12:23 PM
[2022-12-14 13:25] LABS: Basophils # (auto) 0.05 K/uL (0-0.2); Basophils % (auto) 0.7 %; Eosinophils # (auto) 0.89 K/uL (0-0.50); Eosinophils % (auto) 11.6 %; Hematocrit (blood only) 41.8 % (37.0-47.0); Hemoglobin 13.7 g/dl (12.0-16.0); Immature Granulocytes # (auto) 0.02 K/uL (0.01-0.20); Immature Granulocytes % (auto) 0.3 %; Lymphocytes # (auto) 1.79 K/uL (1.2-3.4); Lymphocytes % (auto) 23.4 %; Mean Corpuscular Hgb Conc 32.8 g/dL (32.0-36.0); Mean Corpuscular Volume 91.5 fL (80.0-100.0); Mean Platelet Volume 11.5 fL (9.4-12.4); Monocytes # (auto) 0.39 K/uL (0.11-0.59); Monocytes % (auto) 5.1 %; Neutrophils # (auto) 4.52 K/uL (1.40-6.50); Neutrophils % (auto) 58.9 %; Platelet Count 155 K/uL (130-400); RDW Coefficient of Variation 11.9 % (11.5-14.5); RDW Standard Deviation 40.1 fL (36.4-46.3); Red Blood Count 4.57 M/uL (4.20-5.40); White Blood Count 7.66 K/ul (4.8-10.8)
[2022-12-14 13:41] LABS: Alanine Aminotransferase 23 U/L (7-52); Albumin Globulin Ratio 1.7 (0.9-2); Albumin Level 4.3 gm/dl (3.4-5.0); Alkaline Phosphatase 83 U/L (34-104); Anion Gap 4 (3-11); Aspartate Aminotransferase 19 U/L (13-39); Bilirubin,Total 1.1 mg/dl (0.2-1.0); Blood Urea Nitrogen 10 mg/dl (6-23); Calcium 9.9 mg/dl (8.6-10.3); Carbon Dioxide 27 mmol/L (21-32); Chloride 108 mmol/L (98-107); Est GFR (African American) 86.4 ml/min; Est GFR (Non-African American) 74.5 ml/min; Globulin 2.5 gm/dl (2.5-4.0); Glucose 101 mg/dl (70-99(Fasting)); Magnesium 1.8 mg/dl (1.7-2.4); Phosphorus 3.2 mg/dl (2.5-4.9); Potassium 4.2 mmol/L (3.5-5.1); Sodium 139 mmol/L (136-145); Total Protein 6.8 gm/dl (6.0-8.3)
--- NOTE | 2022-12-14 16:13 | Emergency Department Note ---
History of Present Illness General Chief complaint: Abnormal Labs/Diagnostic Testing Stated complaint: ABNORMAL BLOOD CULTURES,DOC REF Time Seen by Provider: 12/14/22 15:56 Source: patient, family (Daughter who is at the bedside), RN notes reviewed and old records reviewed (Previous culture results) Mode of arrival: ambulatory Limitations: no limitations History of Present Illness This patient is a 62-year-old female who has history of bipolar disorder comes in after having a functional decline. She has been not doing well over the last couple weeks she has had a hard time with her balance she has been falling she has slurred speech she was diagnosed with a UTI. She is on antibiotics at present. She had no fever no dysuria or hematuria but she had some frequency. She had decreased p.o. intake no chest pain shortness breath no headache she did fall today. She was called in as there was a positive blood culture for gram-positive bacilli x1 but it was thought to be contaminant. She has a history of bipolar she has had no suicidal homicidal ideations no new medication she has been taking her medications as directed office of aging is been involved. The family is very concerned about her being at home. Home Medications Medication Instructions Recorded Confirmed Type atorvastatin 20 mg tablet (Lipitor) 20 mg PO HS #30 tabs 01/09/21 12/14/22 Rx docusate sodium 100 mg capsule 100 - 200 mg PO HS 02/08/22 12/14/22 History (Colace) aspirin 81 mg tablet,delayed 81 mg PO DAILY 11/19/22 12/14/22 History release benztropine 1 mg tablet 1 mg PO AMPM 11/19/22 12/14/22 History gabapentin 400 mg capsule 400 mg PO BID 11/19/22 12/14/22 History levothyroxine 75 mcg tablet 75 mcg PO QAM 11/19/22 12/14/22 History lithium carbonate 450 mg 450 mg PO HS 11/19/22 12/14/22 History tablet,extended release propranolol 10 mg tablet 10 mg PO BID 11/19/22 12/14/22 History quetiapine 200 mg tablet 200 mg PO QPM 11/19/22 12/14/22 History quetiapine 50 mg tablet 50 mg PO QAM 11/19/22 12/14/22 History trazodone 100 mg tablet 100 mg PO HS 11/19/22 12/14/22 History deutetrabenazine 12 mg tablet 12 mg PO BID 12/14/22 12/14/22 History (Austedo) Allergies Allergy/AdvReac Type Severity Reaction Status Date / Time Penicillins Allergy Intermediate Rash Verified 11/19/22 15:20 Past Med/Surg History Medical History Ambulatory dysfunction Bipolar 1 disorder Chronic diarrhea of unknown origin Cogwheel rigidity Constipation Decubitus ulcer, heel DVT prophylaxis Dystonic drug reaction Falling Fever Healthcare maintenance History of anesthesia reaction difficulty waking History of colon polyps Hyperlipidemia Hyperplastic colon polyp Insomnia Lung nodule Memory changes Neuroleptic malignant syndrome Observed seizure-like activity Psychosis Renal lesion Suicidal ideation Tardive dyskinesia UTI (urinary tract infection) Weakness Surgical History History of colonoscopy with polypectomy History of conization of cervix History of cervical conization by laser History of dilation and curettage History of foot surgery x2--right--no hardware History of hysteroscopy History of right oophorectomy History of tooth extraction all upper teeth History of tubal ligation Family History Father Type 2 diabetes mellitus Family hx colonic polyps Brother Type 2 diabetes mellitus Sister Parathyroid disorder Brother Type 2 diabetes mellitus Other No family history of adverse response to anesthesia Social History Smoking Status: Never smoker Second Hand Exposure: No; Do You Dip or Chew Tobacco: No; Hx Alcohol Use: No Hx Substance Use: No Preferred Language: Kyrgyz Communication Ability: Effective Communication Ability Comment: patient often talks to fast, when asked to repe at - easier to understand Well Puller Head Required: No Beliefs That Will Affect Care: None marital status: Current Living Situation: Spouse current occupational status: employed Other Information That Helps Us Care for You: No Feels Safe at Home: Yes Safety Concerns: Feels Safe At This Time Gender Identity: Female Assistive Devices: Walker Review of Systems A total of 10 systems reviewed and were otherwise negative Physical Exam Vital Signs Vital Signs - 24 hr 12/14/22 11:10 12/14/22 15:31 12/14/22 16:07 Temperature 36.9 C Temperature Source Temporal Artery Scan Pulse Rate 70 Pulse Rate [Right Finger] 59 L 82 Pulse Rhythm [Right Finger] Regular Pulse Strength [Right Finger] Normal Respiratory Rate 18 20 20 Respiratory Effort / Characteristics Non-Labored Spontaneous Respiratory Depth Normal Respiratory Pattern Regular Blood Pressure 108/66 Blood Pressure [Right Arm] 116/71 111/72 Blood Pressure Mean 80 Blood Pressure Mean [Right Arm] 86 85 Blood Pressure Position [Right Arm] Sitting Pulse Oximetry 98 97 98 Oxygen Delivery Method Room Air Room Air Sepsis Recent Fever Within 48 Hours No Sepsis New/Unexplained Change in Mental Status No Sepsis Action Taken by Nursing No Action Required 12/14/22 16:12 Temperature Temperature Source Pulse Rate 56 L Pulse Rate [Right Finger] Pulse Rhythm [Right Finger] Pulse Strength [Right Finger] Respiratory Rate Respiratory Effort / Characteristics Respiratory Depth Respiratory Pattern Blood Pressure Blood Pressure [Right Arm] Blood Pressure Mean Blood Pressure Mean [Right Arm] Blood Pressure Position [Right Arm] Pulse Oximetry Oxygen Delivery Method Sepsis Recent Fever Within 48 Hours Sepsis New/Unexplained Change in Mental Status Sepsis Action Taken by Nursing General: Well developed well nourished middle-age female who appears in no acute distress, breathing comfortably on room air. Speech is slightly slurred. HEENT: Normal cephalic atraumatic. She has a mildly swollen lip from where she hit it on the lower lip. She has dentures in the upper jaw and dentures that are missing in the lower jaw. Pupils are equal round and reactive to light. Extraocular movements are intact. Oropharynx is pink with moist mucous membranes. No swelling of the mouth lips or tongue. Neck: Supple with a midline trachea. No meningeal signs or stiffness, no JVD or bruits. No Stridor. Chest: Clear to auscultation bilaterally. No wheezes or rhonchi. No increased work of breathing. Heart: Regular rate and rhythm without murmurs or gallops. Abdomen: Soft nontender, nondistended without rebound guarding or rigidity. Extremities: No cyanosis clubbing or edema. No calf tenderness or assymetry Spine/Back. Non tender to palpation. No CVA tenderness Skin: Good turgor without rashes. Neurologic exam: Cranial nerves two through 12 are intact. Motor and sensation are intact and symmetrical throughout. She does have some mild tremor with movement but does have history of tar dive dyskinesia Course Administered Medications Atorvastatin Calcium (Atorvastatin 20 Mg Tab) 20 mg PO HS [facility] Stop: 01/13/23 21:09 Last Admin: 12/14/22 22:04 Dose: 20 mg Documented By: [facility] [place] Benztropine Mesylate (Benztropine Mesylate 1 Mg Tab) 1 mg PO BID DONNIE Stop: 01/13/23 21:09 Last Admin: 12/14/22 22:06 Dose: 1 mg Documented By: [facility] [place] Deutetrabenazine (Austedo 12 Mg Tablet) 1 each PO BID DONNIE Stop: 01/13/23 21:59 Last Admin: 12/14/22 22:06 Dose: 1 each Documented By: [facility] [place] Docusate Sodium (Docusate Sodium 100 Mg Cap) 200 mg PO [facility] Stop: 01/13/23 21:09 Last Admin: 12/14/22 22:06 Dose: 200 mg Documented By: [facility] Gabapentin (Gabapentin 400 Mg Cap) 400 mg PO BID DONNIE Stop: 01/13/23 21:09 Last Admin: 12/14/22 22:05 Dose: 400 mg Documented By: ESTEBAN Ephesus Carbonate (Ephesus Carbonate 450 Mg Tabcr) 450 mg PO [facility] Stop: 01/13/23 21:09 Last Admin: 12/14/22 22:05 Dose: 450 mg Documented By: [facility] [place] Propranolol HCl (Propranolol Hcl 10 Mg Tab) 10 mg PO BID [facility] Stop: 01/13/23 21:09 Last Admin: 12/14/22 22:04 Dose: 10 mg Documented By: [facility] Quetiapine Fumarate (Quetiapine Fumarate 200 Mg Tab) 200 mg PO QPM DONNIE Stop: 01/13/23 21:09 Last Admin: 12/14/22 22:04 Dose: 200 mg Documented By: [facility] [place] Trazodone HCl (Trazodone Hcl 100 Mg Tab) 100 mg PO [facility] Stop: 01/13/23 21:09 Last Admin: 12/14/22 22:04 Dose: 100 mg Documented By: [facility] [place] Discontinued Medications Gadobutrol (Gadobutrol 65ml Vial) 6 ml IV ONCE ONE Stop: 12/14/22 18:39 Last Admin: 12/14/22 18:42 Dose: 6 ml Documented By: [facility] [place] Medical Decision Making Differential Diagnosis Neurologic disorder, intracranial process, infection, electrolyte or metabolic abnormality, cardiac disease, toxicologic Medical Records Attestation: I reviewed the patient's medical records. Home Medications Current Medication List: was personally reviewed by oh Laboratory Data Attestation: I reviewed the patient's lab results. 12/14/22 12:51 12/14/22 12:51 Lab Results 12/14/22 12/14/22 12/14/22 Range/Units 12:51 12:51 12:51 WBC 7.66 (4.8-10.8) K/ul RBC 4.57 (4.20-5.40) M/uL Hgb 13.7 (12.0-16.0) g/dl Hct 41.8 (37.0-47.0) % MCV 91.5 (80.0-100.0) fL MCH 30.0 (25.0-34.0) pg MCHC 32.8 (32.0-36.0) g/dL RDW Std Deviation 40.1 (36.4-46.3) fL RDW Coeff of Zakiya 11.9 (11.5-14.5) % Plt Count 155 (130-400) K/uL MPV 11.5 (9.4-12.4) fL Immature Gran % (Auto) 0.3 % Neut % (Auto) 58.9 % Lymph % (Auto) 23.4 % Foard % (Auto) 5.1 % Eos % (Auto) 11.6 % Baso % (Auto) 0.7 % Neut # (Auto) 4.52 (1.40-6.50) K/uL Lymph # (Auto) 1.79 (1.2-3.4) K/uL Foard # (Auto) 0.39 (0.11-0.59) K/uL Eos # (Auto) 0.89 H (0-0.50) K/uL Baso # (Auto) 0.05 (0-0.2) K/uL Immature Gran # (Auto) 0.02 (0.01-0.20) K/uL Sodium 139 (136-145) mmol/L Potassium 4.2 (3.5-5.1) mmol/L Chloride 108 H (98-107) mmol/L Carbon Dioxide 27 (21-32) mmol/L Anion Gap 4 (3-11) BUN 10 (6-23) mg/dl Creatinine 0.83 (0.6-1.2) mg/dl Est Cr Clr Drug Dosing Not Reportable Est GFR ( Amer) 86.4 ml/min Est GFR (Non-Af Amer) 74.5 ml/min BUN/Creatinine Ratio 12.0 (10-20) Glucose 101 H (70-99(Fasting)) mg/dl Lactate (0.4-2.0) mmol/L Calcium 9.9 (8.6-10.3) mg/dl Phosphorus 3.2 (2.5-4.9) mg/dl Magnesium 1.8 (1.7-2.4) mg/dl Total Bilirubin 1.1 H (0.2-1.0) mg/dl AST 19 (13-39) U/L ALT 23 (7-52) U/L Alkaline Phosphatase 83 (34-104) U/L Total Protein 6.8 (6.0-8.3) gm/dl Albumin 4.3 (3.4-5.0) gm/dl Globulin 2.5 (2.5-4.0) gm/dl Albumin/Globulin Ratio 1.7 (0.9-2) TSH 0.329 (0.300-4.500) uIu/ml Ephesus (0.6-1.2) mmol/L SARS-CoV-2, RNA, NAAT (NEGATIVE) 12/14/22 12/14/22 12/14/22 Range/Units 12:51 16:43 17:08 WBC (4.8-10.8) K/ul RBC (4.20-5.40) M/uL Hgb (12.0-16.0) g/dl Hct (37.0-47.0) % MCV (80.0-100.0) fL MCH (25.0-34.0) pg MCHC (32.0-36.0) g/dL RDW Std Deviation (36.4-46.3) fL RDW Coeff of Zakiya (11.5-14.5) % Plt Count (130-400) K/uL MPV (9.4-12.4) fL Immature Gran % (Auto) % Neut % (Auto) % Lymph % (Auto) % Foard % (Auto) % Eos % (Auto) % Baso % (Auto) % Neut # (Auto) (1.40-6.50) K/uL Lymph # (Auto) (1.2-3.4) K/uL Foard # (Auto) (0.11-0.59) K/uL Eos # (Auto) (0-0.50) K/uL Baso # (Auto) (0-0.2) K/uL Immature Gran # (Auto) (0.01-0.20) K/uL Sodium (136-145) mmol/L Potassium (3.5-5.1) mmol/L Chloride (98-107) mmol/L Carbon Dioxide (21-32) mmol/L Anion Gap (3-11) BUN (6-23) mg/dl Creatinine (0.6-1.2) mg/dl Est Cr Clr Drug Dosing Est GFR ( Amer) ml/min Est GFR (Non-Af Amer) ml/min BUN/Creatinine Ratio (10-20) Glucose (70-99(Fasting)) mg/dl Lactate 1.0 (0.4-2.0) mmol/L Calcium (8.6-10.3) mg/dl Phosphorus (2.5-4.9) mg/dl Magnesium (1.7-2.4) mg/dl Total Bilirubin (0.2-1.0) mg/dl AST (13-39) U/L ALT (7-52) U/L Alkaline Phosphatase (34-104) U/L Total Protein (6.0-8.3) gm/dl Albumin (3.4-5.0) gm/dl Globulin (2.5-4.0) gm/dl Albumin/Globulin Ratio (0.9-2) TSH (0.300-4.500) uIu/ml Ephesus 0.7 (0.6-1.2) mmol/L SARS-CoV-2, RNA, NAAT NEGATIVE (NEGATIVE) Imaging Data Attestation: I personally reviewed and interpreted this imaging study as follows: My Impression: Chest x-rayno acute infiltrate, failure, pneumothorax seen upon my interpretation Radiologist's Impression: Chest X-Ray 12/14/22 11:14 XR chest 1V not portable HISTORY: 62 years-old Female weakness acute weakness COMPARISON: 12/07/2022 TECHNIQUE: PA view of the chest FINDINGS: Cardiomediastinal and hilar silhouettes are unchanged. No pneumothorax, pleural effusion, airspace consolidation or pulmonary edema. Degenerative changes of the shoulders and spine. IMPRESSION: No acute process. ACT 112: Negative or not required by law. The above report was generated using voice recognition software. It may contain grammatical, syntax or spelling errors. Electronically signed by: Damon Medrano M.D. 12/14/2022 12:23 PM Brain MRI 12/14/22 17:17 MR brain wo/w con HISTORY: 62 years-old Female slurred speech, leans to left, falls, ataxia acute stroke like symptoms COMPARISON: Head CT 12/07/2022, brain MRI 01/23/2021 TECHNIQUE: Multiplanar multisequence MRI of the brain was obtained both with and without the use of IV contrast. FINDINGS: There are no areas of restricted diffusion to suggest acute infarction. Motion degraded exam. The midline structures are intact. The paranasal sinuses are clear. The mastoid air cells are clear. The ventricles and sulci are within normal limits for age. There is no mass, hematoma, midline shift. The major vascular flow-voids at the skull base are well maintained. Postcontrast sequences show no areas of abnormal enhancement. IMPRESSION: 1. No acute intracranial abnormality. No acute or subacute infarct. 2. No abnormal enhancement. ACT 112: Negative or not required by law. The above report was generated using voice recognition software. It may contain grammatical, syntax or spelling errors. Electronically signed by: Damon Medrano M.D. 12/14/2022 6:53 PM ECG Data Attestation: I personally reviewed and interpreted this ECG as follows: Indication: + weakness Rate (beats per minute): 59 Rhythm: + sinus bradycardia ECG Intervals/blocks: + Normal QRS, + Normal QT and + Normal ID ECG [place]: + Normal ECG ST segments: + Normal ST segments ECG Findings: + Other (Sinus bradycardia); no PACs or no PVCs Comparison ECG Date: from (12/07/22) Change: no significant change MDM Narrative This patient is 62-year-old female who comes in after having a functional decline over the last couple weeks. There was concern she could have a positive blood culture that was likely contaminant. She has had worsening of her slurred speech and gait. she has been falling her work-up thus far has been unremarkable. I saw her in room A9. she was placed on a monitoring specialist. Her EKG is unremarkable . she has no white count or fever to suggest infection. she has no headache neck pain or stiffness. She has no electrolyte or metabolic abnormalities. Her lithium level is pending today but was normal on the . I am concerned that she keeps falling at home and has taken a downhill decline she may need an MRI and further neurologic type work-up. I have consulted the [facility] team to see her for these measures. I have discussed the case at length with Dr. Radford in consultation. It is possible this could be related to medications as well. Continuous cardiac monitoring: An order was placed in EMR for continuous cardiac monitoring: Upon my evaluation patient was noted to be in sinus bradycardia with a rate of 60 Impression & Plan Weakness, Tardive dyskinesia, Ambulatory dysfunction, Slurring of speech Discharge Plan Visit Data Chief Complaint: Abnormal Labs/Diagnostic Testing Stated Complaint: ABNORMAL BLOOD CULTURES,DOC REF ED Provider: Bradley Vanegas Discharge Problem: Weakness, Tardive dyskinesia, Ambulatory dysfunction, Slurring of speech Patient Disposition: Admitted As Inpatient Discharge Instructions Interventions: ED Discharge Assessment Last Done: 12/14/22 20:38
--- NOTE | 2022-12-14 17:13 | History & Physical Report ---
Date of Service December 14, 2022 Assessment & Plan (1) Recurrent falls: Plan: Suspect from shuffling gait, ataxia, intermittent confusion, slurred speech, weakness, recurrent falls ?due to switching Austedo as fits this timeline. If brain MRI negative will get neurology and psychiatry consult given this complex patient as suspect all her acute progressive current neurological symptoms are medication induced however stopping Austedo will lead to worsening tardive dyskinesia. Suspect blood culture a contaminant, antibiotics deferred but repeat blood cultures taken (2) Intermittent confusion: (3) Slurring of speech: (4) Weakness: (5) Ambulatory dysfunction: (6) Tardive dyskinesia: (7) Neuroleptic-induced Parkinsonism: (8) Hypothyroidism: Plan: TSH 0.329 - continue levothyroxine (9) Bipolar 1 disorder: Plan: Continue lithium and Seroquel Plan VTE Propylaxis - low risk Diet - regular Disposition - observation to med/surg Admission and Anticipated Discharge Date Admission Date: December 14, 2022 History of Present Illness Chief Complaint: Recurrent falls Primary Care Provider: Sonja Spears DO Taniya Waterman is a 62 year old female who presents to the ER after being called back for positive blood cultures. She denies any respiratory, gastrointestinal symptoms. Only urinary symptom of incontinence present but progressively getting worse over the last month. Main concern from her daughter is her functional decline with multiple neurological symptoms progressively getting worse over the last month resulting in recurrent falls for which was the main concern for her ER visit yesterday when the blood cultures were taken and the main reason patient was presented for admission to the medical team today as blood cultures suspected to be a contaminant. These symptoms appear to correlate with the same timeline start about a month ago. Include slurred speech, confusion (leaves hot water running and the stove on), urine incontinence, falls, shuffling gait, feeling cold all the time.Only recent medication change was switching from Ingrezza to Austedo on [11/08] with a dose increase on [12/01]. Her daughter reports this was changed by her psychiatrist due to tardive dyskinesia and has been helpful in that respect. Allergies Allergy/AdvReac Type Severity Reaction Status Date / Time Penicillins Allergy Intermediate Rash Verified 11/19/22 15:20 Home Medications Medication Instructions Recorded Confirmed Type atorvastatin 20 mg tablet (Lipitor) 20 mg PO HS #30 tabs 01/09/21 12/14/22 Rx docusate sodium 100 mg capsule 100 - 200 mg PO HS 02/08/22 12/14/22 History (Colace) aspirin 81 mg tablet,delayed 81 mg PO DAILY 11/19/22 12/14/22 History release benztropine 1 mg tablet 1 mg PO AMPM 11/19/22 12/14/22 History gabapentin 400 mg capsule 400 mg PO BID 11/19/22 12/14/22 History levothyroxine 75 mcg tablet 75 mcg PO QAM 11/19/22 12/14/22 History lithium carbonate 450 mg 450 mg PO HS 11/19/22 12/14/22 History tablet,extended release propranolol 10 mg tablet 10 mg PO BID 11/19/22 12/14/22 History quetiapine 200 mg tablet 200 mg PO QPM 11/19/22 12/14/22 History quetiapine 50 mg tablet 50 mg PO QAM 11/19/22 12/14/22 History trazodone 100 mg tablet 100 mg PO HS 11/19/22 12/14/22 History deutetrabenazine 12 mg tablet 12 mg PO BID 12/14/22 12/14/22 History (Austedo) Past Med/Surg History Medical History Ambulatory dysfunction Bipolar 1 disorder Chronic diarrhea of unknown origin Cogwheel rigidity Constipation Decubitus ulcer, heel DVT prophylaxis Dystonic drug reaction Falling Fever Healthcare maintenance History of anesthesia reaction difficulty waking History of colon polyps Hyperlipidemia Hyperplastic colon polyp Insomnia Lung nodule Memory changes Neuroleptic malignant syndrome Observed seizure-like activity Psychosis Renal lesion Suicidal ideation Tardive dyskinesia UTI (urinary tract infection) Weakness Surgical History History of colonoscopy with polypectomy History of conization of cervix History of cervical conization by laser History of dilation and curettage History of foot surgery x2--right--no hardware History of hysteroscopy History of right oophorectomy History of tooth extraction all upper teeth History of tubal ligation Family History Father Type 2 diabetes mellitus Family hx colonic polyps Brother Type 2 diabetes mellitus Sister Parathyroid disorder Brother Type 2 diabetes mellitus Other No family history of adverse response to anesthesia Social History Smoking Status: Never smoker Second Hand Exposure: No; Do You Dip or Chew Tobacco: No; Hx Alcohol Use: No Hx Substance Use: No Preferred Language: Serbian Communication Ability: Effective Communication Ability Comment: patient often talks to fast, when asked to repeat - easier to understand Coagulant Dipper Required: No Beliefs That Will Affect Care: None marital status: Current Living Situation: Spouse current occupational status: employed Other Information That Helps Us Care for You: No Feels Safe at Home: Yes Safety Concerns: Feels Safe At This Time Gender Identity: Female Assistive Devices: Walker Review of Systems Review of Systems: All systems reviewed & are unremarkable except as noted in HPI & below Physical Exam Constitutional: WD/WN, vitals as above Eyes: PERRL, conjunctivae normal, anicteric sclerae ENMT: external ear and nose normal, oropharynx normal Respiratory: normal respiratory effort, lungs clear to auscultation Cardiovascular: RRR, no murmur, no edema Gastrointestinal (Abdomen): normal bowel sounds, soft, nontender, no hepatosplenomegaly Musculoskeletal: no cyanosis or clubbing, extremities motor strength 5/5 Skin: no rashes, warm and dry Neurologic: moves all extremities and awake; not confused Speech / Cognition: normal speech Motor/Sensory: + abnormal movement (dyskinesia on arm movements); no tremor and no pronator drift Bilateral upper arm rigidity on passive movement Psychiatric: Orientation: alert and oriented x 3 Eye Contact: + fair eye contact Motor Behavior: + psychomotor agitation (constant tongue movement consistent of tardive dyskinesia) Speech: normal rate/rhythm/volume of speech Results & Data Results & Data Vital Signs (Past 12 Hours) Vital Signs Temp Pulse Pulse Resp BP BP Pulse Ox 12/14/22 16:12 56 L 12/14/22 16:07 82 20 111/72 98 12/14/22 15:31 59 L 20 116/71 97 12/14/22 11:10 36.9 C 70 18 108/66 98 O2 Del Method 12/14/22 16:12 12/14/22 16:07 Room Air 12/14/22 15:31 12/14/22 11:10 Room Air Laboratory Results Abnormal lab results 12/14/22 12/14/22 Range/Units 12:51 12:51 Eos # (Auto) 0.89 H (0-0.50) K/uL Chloride 108 H (98-107) mmol/L Glucose 101 H (70-99(Fasting)) mg/dl Total Bilirubin 1.1 H (0.2-1.0) mg/dl Diagnostic Findings XR chest 1V not portable HISTORY: 62 years-old Female weakness acute weakness COMPARISON: 12/07/2022 TECHNIQUE: PA view of the chest FINDINGS: Cardiomediastinal and hilar silhouettes are unchanged. No pneumothorax, pleural effusion, airspace consolidation or pulmonary edema. Degenerative changes of the shoulders and spine. IMPRESSION: No acute process. Medications Administered ER Medications Given: None ECG Rate (beats per minute): 59 Rhythm: sinus bradycardia Findings: no acute ischemic change Comparison ECG Date: from (December 07, 2022) Change: no significant change Code Status & VTE Plan Code Status Full PG Care Time/CCT Total # of Minutes Spent Total Time Spent with Patient: Total time spent is greater than 50% in coordination of care (as documented) at patient's floor/unit and/or counseling patient: Coding Level of Care Code 78803 INT INP/OBS CARE 2/55MIN Diagnoses Recurrent falls R29.6 Intermittent confusion R41.0 Slurring of speech R47.81 Weakness R53.1 Ambulatory dysfunction R26.2 Tardive dyskinesia G24.01 Neuroleptic-induced Parkinsonism G21.11 Hypothyroidism E03.9 Bipolar 1 disorder F31.9
[2022-12-14] MEDS ORDERED: GADOBUTROL 65ML VIAL IV ONE (18:38)
--- NOTE | 2022-12-14 18:56 | Magnetic Resonance Report ---
MR brain wo/w con HISTORY: 62 years-old Female slurred speech, leans to left, falls, ataxia acute stroke like symptoms COMPARISON: Head CT 12/07/2022, brain MRI 01/23/2021 TECHNIQUE: Multiplanar multisequence MRI of the brain was obtained both with and without the use of I V contrast. FINDINGS: There are no areas of restricted diffusion to suggest acute infarction. Motion degraded exam. The mid line structures are intact. The paranasal sinuses are clear. The mastoid air cells are clear. The sandra tricles and sulci are within normal limits for age. There is no mass, hematoma, midline shift. The dc ronnell vascular flow-voids at the skull base are well maintained. Postcontrast sequences show no areas o f abnormal enhancement. IMPRESSION: 1. No acute intracranial abnormality. No acute or subacute infarct. 2. No abnormal enhancement. ACT 112: Negative or not required by law. The above report was generated using voice recognition software. It may contain grammatical, syntax o r spelling errors. Electronically signed by: Damon Medrano M.D. 12/14/2022 6:53 PM
[2022-12-14] MEDS ORDERED: ACETAMINOPHEN 325 MG TAB PO PRN (21:10)
[2022-12-14] MEDS: QUEtiapine FUMARATE 200 MG TAB PO SCH (22:04)
[2022-12-14] MEDS: traZODone HCL 100 MG TAB PO SCH (22:04)
[2022-12-14] MEDS: ATORVASTATIN 20 MG TAB PO SCH (22:04)
[2022-12-14] MEDS: PROPRANOLOL HCL 10 MG TAB PO SCH (22:04)
[2022-12-14] MEDS: GABAPENTIN 400 MG CAP PO SCH (22:05)
[2022-12-14] MEDS: LITHIUM CARBONATE 450 MG TABCR PO SCH (22:05)
[2022-12-14] MEDS: AUSTEDO 12 MG PO SCH (22:06)
[2022-12-14] MEDS: BENZTROPINE MESYLATE 1 MG TAB PO SCH (22:06)
[2022-12-14] MEDS: DOCUSATE SODIUM 100 MG CAP PO SCH (22:06)
[2022-12-14 22:33] LABS: Appearance Urine Clear (Clear); Bacteria Urine Automated Negative (Negative); Bilirubin Urine Negative (Negative); Blood Urine Negative (Negative); Cast Urine Automated 0 /lpf (0-5); Color Urine Yellow; Epithelial Cell Urine Auto >30 /lpf (0-5); Glucose Urine UA Negative (Negative); Ketones Urine Negative (Negative); Leukocyte Esterase Urine 1+ (Negative); Nitrite Urine Negative (Negative); Protein Urine Negative (Negative); RBC Urine Automated 0-4 /hpf (0-4); Specific Gravity Urine 1.009 (1.000-1.030); Urobilinogen Urine Negative (Negative)
[2022-12-15] MEDS: LEVOTHYROXINE SODIUM 75 MCG TABLET PO SCH (05:47)
--- NOTE | 2022-12-15 08:34 | Neurology Consultation ---
Date of Consultation December 15, 2022 Assessment & Plan (1) Recurrent falls: (2) Weakness: (3) Slurring of speech: (4) Tardive dyskinesia: (5) Tremor: (6) Neuroleptic-induced Parkinsonism: (7) Bipolar 1 disorder: (8) Unspecified psychosis not due to a substance or known physiological condition: Plan this is a complicated patient overall with multiple psychiatric and neurologic issues. The patient has been deteriorating some over the last several weeks. In some respects, she is better neurologically than I have last seen her. Her action tremor is actually improved on gabapentin and propranolol at current doses. She has some tardive dyskinesia but it is very suppressed. This is likely due to the deutetrabenazine. She does have some significant Parkinson's features including cogwheel rigidity, bradykinesia, and features of Parkinson's gait. I am not certain how much benztropine is helping her. Nevertheless, she might be worse off of it. She is still on significant doses of Seroquel which would cause Neuroleptic induced parkinsonism. I am uncertain of the state of her psychosis and bipolar disorder are at this time. She has known peripheral neuropathy, cognitive deficits, and abnormal movements ( twitches, jerks of the limbs, and gait disturbance). These maybe a little worse. When I last saw her she had been off lithium for about a year and a half (after having been on it for 33 years). Sometime in the last year this was restarted at a significant dose. Several years ago, I was very concerned about chronic lithium induced neurotoxicity. The "ataxia" and movements could be coming out more now that this medicine has been restarted. Muscle twitching and jerks, slurred speech, parkinsonism, psychosis, dementia, renal issues ( which she does not have) and a progressive ataxia can be due to the chronic effects of lithium. In some cases these are irreversible even after stopping the medication. Otherwise, neurologically she is doing fairly well on her MRI (once again) was unremarkable/normal). Recommendations: 1. Awaiting psychiatry consultation. 2. consider reducing or discontinuing lithium ( I know it is at the take his from a psychiatric standpoint but is very detrimental from a neurologic standpoint ). As long as she stays on lithium she would be at risk for progressive, and the permanent neurologic issues as listed above 3. continue with deutetrabenazine, as this is likely mitigating some of the movement disorder affects of the somewhat large dose of quetiapine. 4. Continue gabapentin and propranolol at current doses as this is dampening the essential tremor. 5. Check B12, folate, Lyme antibody titers, and CK 6. unfortunately, this patient is all commit case /care is going to come down to "which is more important" controlling psychiatric issues or the neurologic complications that come from the medications of treating the psychiatric problems. 7. Consider physical and occupational therapy to help with gait and strengthening. Overall, I spent a total of 75 minutes with this case including review of records, review of MRI films, direct evaluation of the patient at bedside, report generation, and discussion of the case with the patient and RN at bedside, and Dr. Pena including differential diagnosis and treatment options. History of Present Illness Reason for Consultation: Patient is a 62-year-old, who was asked to see at the request of Dr. Radford, for neurologic consultation regarding gait disturbance and other issues. Requesting Physician: Dr. Radford Attending Physician: Chalino Pena MD History of Present Illness This patient has a longstanding psychiatric history with severe bipolar disorder, alison, depression, schizophrenia, hallucinations, and psychosis. She has had multiple psychiatric admissions and been on multiple different psychi atric medications over several years. She has had cognitive issues as well. I 1st saw this patient in June of 2017 for abnormal involuntary movements. At that time she had severe dyskinesia of her tongue, head, and lips. She had rapid eye blinking and myoclonic jerks. Her exam revealed mild coarse postural and action tremor but no resting tremor. she had mild ataxia the upper extremities and gait. Motor strength was symmetrical being 5/5 throughout. She had good tone in the limbs without rigidity. Reflexes were 2/4 throughout except for absent Achilles tendon reflexes. Toes were downgoing to plantar stimulation bilaterally. At that time it was noted she had been on lithium since 1987, as it was one of the only medications helped her. Also, she was on a very large dose of Seroquel at 500 mg per day and that was recently rapidly discontinued just prior to my consultation. We diagnosed tardive dyskinesia likely secondary to Seroquel and found no dystonia or Parkinson's disease features. I was very concerned at that time about chronic (reversible or irreversible ) lithium toxicity. 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 the lithium was discontinued by June of 2020. in December of 2020, she was admitted for increasing tremor and psychosis be unable to care herself. At that time clozapine, Lamotrigine, and risperidone were all discontinued. She was on fluoxetine 40 mg, gabapentin 100 mg 3 times a day, 20 mg twice a day, valbenazine 80 mg at bedtime, paliperidone 3 mg 3 times a day, lorazepam needed. She had admission in January of 2021 for possible neuroleptic malignant syndrome versus seizures. She had severe myoclonic jerking cogwheel rigidity. I evaluated her and during her so-called seizure activity she would talk and follow commands EEG was unremarkable as were other studies. She was not seizures. She did not have sepsis and her CK was 79. She was afebrile I do not believe neuroleptic malignant syndrome was present. In addition, I did not see any actual ataxia at that time. The patient has had multiple MRIs of the brain over the last several years all of which were unremarkable. we followed her in outpatient clinic, last seen her December 15, 2021. At that time she was doing better with her tremor and parkinsonism. She was still on valbenazine, Fluoxetine cyclobenzaprine, benztropine 1 mg twice a day, gabapentin,, lorazepam needed. Sometime in the last year she was restarted on lithium and is currently taking 450 mg at bedtime. She is also on Seroquel 50 mg in the morning and 200 mg at night, deutetrabenazine 12 mg b.i.d., trazodone 100 mg at bedtime, benztropine 1 mg twice a day, gabapentin 40 mg twice a day propranolol 10 mg twice a day. The gabapentin and propranolol seems to help the action tremor. The deutetrabenazine and benztropine help her tardive dyskinesias. Over the last 2-3 weeks the patient has been declining. She has balance issues and can fall. She feels weak in general and a little more confused. She has some slurred speech at times. She was diagnosed with the urinary tract infection recently. On December 07, CT scan of the head and CT angiography of the head and neck, were all unremarkable. She came to the emergency room December 14 at 11:10 a.m. with a temperature 36.9, pulse 70 regular, respiratory rate 18, blood pressure 108/66, and O2 saturation 98% She was described as having a mild tremor. She followed commands well and was fairly stable. CBC and Chem profile were unremarkable. TSH was 0.3, lactate 1.0, and lithium 0.7. Chest x-ray was unremarkable. MRI of the brain was unremarkable as well. I reviewed these films. Nursing reports no new events overnight and no seizures. She remains afebrile. Blood pressure is 115/76. Currently, the patient has a little bit of a bifrontal achy headache but no other pain in the spine or limbs. She has some lightheadedness with standing up but no vertigo. She knows her balance is off but has no numbness or tingling in the arms or legs. She feels weak in general but no one particular limb is weaker than another. Allergies Allergy/AdvReac Type Severity Reaction Status Date / Time Penicillins Allergy Intermediate Rash Verified 11/19/22 15:20 Home Medications Medication Instructions Recorded Confirmed Type atorvastatin 20 mg tablet (Lipitor) 20 mg PO HS #30 tabs 01/09/21 12/14/22 Rx docusate sodium 100 mg capsule 100 - 200 mg PO HS 02/08/22 12/14/22 History (Colace) aspirin 81 mg tablet,delayed 81 mg PO DAILY 11/19/22 12/14/22 History release benztropine 1 mg tablet 1 mg PO AMPM 11/19/22 12/14/22 History gabapentin 400 mg capsule 400 mg PO BID 11/19/22 12/14/22 History levothyroxine 75 mcg tablet 75 mcg PO QAM 11/19/22 12/14/22 History lithium carbonate 450 mg 450 mg PO HS 11/19/22 12/14/22 History tablet,extended release propranolol 10 mg tablet 10 mg PO BID 11/19/22 12/14/22 History quetiapine 200 mg tablet 200 mg PO QPM 11/19/22 12/14/22 History quetiapine 50 mg tablet 50 mg PO QAM 11/19/22 12/14/22 History trazodone 100 mg tablet 100 mg PO HS 11/19/22 12/14/22 History deutetrabenazine 12 mg tablet 12 mg PO BID 12/14/22 12/14/22 History (Austedo) Patient History Medical History Ambulatory dysfunction Bipolar 1 disorder Chronic diarrhea of unknown origin Cogwheel rigidity Constipation Decubitus ulcer, heel DVT prophylaxis Dystonic drug reaction Falling Fever Healthcare maintenance History of anesthesia reaction difficulty waking History of colon polyps Hyperlipidemia Hyperplastic colon polyp Insomnia Lung nodule Memory changes Neuroleptic malignant syndrome Observed seizure-like activity Psychosis Renal lesion Suicidal ideation Tardive dyskinesia UTI (urinary tract infection) Weakness Surgical History History of colonoscopy with polypectomy History of conization of cervix History of cervical conization by laser History of dilation and curettage History of foot surgery x2--right--no hardware History of hysteroscopy History of right oophorectomy History of tooth extraction all upper teeth History of tubal ligation Family History Father Type 2 diabetes mellitus Family hx colonic polyps Brother Type 2 diabetes mellitus Sister Parathyroid disorder Brother Type 2 diabetes mellitus Other No family history of adverse response to anesthesia Social History (Updated 12/15/22 @ 08:13 by Abisai Garza MD) Smoking Status: Never smoker Second Hand Exposure: No; Do You Dip or Chew Tobacco: No; Hx Alcohol Use: No Hx Substance Use: No Preferred Language: Khmer Communication Ability: Effective Communication Ability Comment: patient often talks to fast, when asked to repeat - easier to understand Tank Cleaning Supervisor Required: No Beliefs That Will Affect Care: None marital status: Current Living Situation: Spouse current occupational status: unemployed 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 Feels Safe at Home: Yes Gender Identity: Female Assistive Devices: Walker Review of Systems Constitutional: + fatigue and + weakness; no fever Eyes: no diplopia, no eye pain and no worsening vision Ear, Nose, Mouth, Throat: no ear pain, no tinnitus, no hearing loss, no dizziness, no snoring, no hoarseness and no dysphagia Respiratory: no cough and no dyspnea Cardiovascular: no chest pain, no palpitations and no lightheadedness Gastrointestinal: no abdominal pain, no nausea and no vomiting Genitourinary: no dysuria, no urinary frequency and no urinary incontinence Musculoskeletal: no back pain, no neck pain, no radicular pain, no joint pain and no myalgia Integumentary: no rash and no lesions Neurologic: + gait abnormality, + generalized weakness, + headache(s) and + memory loss; no localized weakness, no tingling, no numbness, no tremor(s), no abnormal movements, no abnormal speech and no confusion Psychiatric: + anxiety; no depression, no irritability, no difficulty concentrating, no confusion and no hallucinations Endocrine: no fatigue and no flushing Hematologic / Lymphatic: no easy bleeding and no easy bruising Allergy / Immunological: no urticaria and no problem reported Exam (Neuro) Physical Exam: The patient is right-handed. The patient is awake, alert, and attentive. Speech is normal without any obvious aphasia or dysarthria. her mood is variable and she can start crying at times. When I asked her why she is crying she says "I want to go home". She is c learly having memory deficits and is oriented to her name but not her age, month, year. Many questions I asked her she will say "I don't know". Pupils are 4 mm bilaterally and reactive to light. Extraocular eye muscles are intact without nystagmus. Visual acuity and visual egan seem normal grossly to confrontation. There are no deficits to sensation in the face in all 3 distributions of the f ifth cranial nerve bilaterally. Corneal reflexes are positive bilaterally. Facial strength and symmetry was normal bilaterally. Hearing seems normal bilaterally. Palate moves well without asymmetry. There is normal sternocleidomastoid and trapezius (shoulder shrug) strength bilaterally. Tongue is midline with good strength bilaterally. Neck has a full range of motion without discomfort. There are no cervical bruits bilaterally. There are no cranial or ocular bruits. Heart is without murmur. There is a regular rhythm and rate. Cervical, thoracic, and lumbar spine are nontender to palpation. Gait is narrow based with decreased arm swing. She is very cautious and slow and this is particularly with her turns. Stance with feet together and eyes open is unsteady. Stance sitting in the bed with feet dangling is normal. her gait is more consistent with some parkinsonism plus a sensory ataxia from neuropathy. With outstretched arms there is no drift. There are no resting tremors. Patient does have mild action tremor bilaterally, left upper extremity slightly greater than the right. There is no ataxia with finger to nose testing. There is Some mild ataxia with [id number] testing. There is good facility in the hands. patient has occasional lip smacking or tongue protrusion ( this is not frequent). She does have some twitches and fine jerking of the limbs on a more regular basis particularly with certain activity and postures. There are no clinton dyskinesias, chorea, athetosis, or large myoclonic jerking. Motor strength is 5/5 diffusely in the arms bilaterally including deltoids, biceps, triceps, brachioradialis, wrist flexors and extensors, neurological surgery teacher, and intrinsic hand muscles. Motor strength is 5/5 diffusely in the legs bilaterally including hip flexors, quadriceps, hamstrings, gastrocnemius, tibialis anterior, tibialis posterior, and Peroneii muscles. Toe extensors are normal and there is good bulk in the extensor digitorum brevis muscles bilaterally. There is mild to moderate cogwheel rigidity of the arms bilaterally. There is mild bradykinesia in general. Sensory examination is intact to touch and pin throughout all 4 limbs diffusely. Reflexes are 1/4 in the biceps, triceps, brachioradialis, quadriceps, and Achilles tendons bilaterally. There is no clonus bilaterally. Toes are downgoing with plantar stimulation bilaterally. Peripheral pulses are present and of normal quality distally in all 4 limbs. There is no peripheral edema noted in the limbs. Results & Data Vital Signs (Past 12 Hours) Vital Signs Temp Pulse Pulse Resp BP BP Pulse Ox 12/15/22 05:46 36.5 C 61 16 115/76 96 12/14/22 21:12 12/14/22 21:12 36.4 C L 64 16 145/85 H 95 12/14/22 21:11 36.4 C L 64 16 145/85 H 95 12/14/22 20:38 63 16 105/64 95 O2 Del Method 12/15/22 05:46 Room Air 12/14/22 21:12 Room Air 12/14/22 21:12 Room Air 12/14/22 21:11 Room Air 12/14/22 20:38 Room Air PG Care Time/CCT Total # of Minutes Spent Total Time Spent with Patient: Total time spent is greater than 50% in coordination of care (as documented) at patient's floor/unit and/or counseling patient: Coding Level of Care Code 42371 INT INP/OBS CARE MIN Diagnoses Recurrent falls R29.6 Weakness R53.1 Slurring of speech R47.81 Tardive dyskinesia G24.01 Tremor R25.1 Neuroleptic-induced Parkinsonism G21.11 Bipolar 1 disorder F31.9 Unspecified psychosis not due to a substance or known physiological condition F29
[2022-12-15] MEDS: QUEtiapine FUMARATE 25 MG TABLET PO SCH (08:45)
[2022-12-15] MEDS: BENZTROPINE MESYLATE 1 MG TAB PO SCH ×2 (08:45→20:27)
[2022-12-15] MEDS: ASPIRIN 81 MG ECTAB PO SCH (08:45)
[2022-12-15] MEDS: GABAPENTIN 400 MG CAP PO SCH ×2 (08:45→20:24)
[2022-12-15] MEDS: AUSTEDO 12 MG PO SCH ×2 (08:46→20:26)
[2022-12-15] MEDS: PROPRANOLOL HCL 10 MG TAB PO SCH ×2 (08:47→20:29)
--- NOTE | 2022-12-15 17:45 | Psychiatric Consultation ---
Date of Consultation December 15, 2022 Impression / Recommendations Impression 62 y/o F with history of schizophrenia and bipolar I disorder admitted with functional decline following medication changes. Her psychiatric symptoms are very well-controlled - this is the best I've seen. She has had marked difficulty tolerating antipsychotic medications (including clozapine and lumateperone) and as a result has had difficulty finding an effective regimen. Her lithium level of 0.7 mmol/L is just below the therapeutic range of 0.8 to 1.2 mmol/L and she maintains that level at an unusually low dose compared to typical 1,200-1,800 mg/day doses. Given the lack of clinically significant mood symptoms there is no reason to increase her dose. Reducing the dose is likely to prevent it from conferring any benefit while still posing a risk of side effects. Clearly, lithium has multiple potential toxicities some of which she may be experiencing. This is a reason to keep her dose as low as possible while maintaining efficacy. However, no other medication is comparably effective for bipolar symptoms. Second-tier options are divalproex, carbamazepine, and lamotrigine. Oxcarbazepine, gabapentin, and topiramate are often used but either have poor evidence of efficacy or clear evidence of lack of efficacy. Third-tier options are all "atypical" antipsychotics (though not all atypical antipsychotics have demonstrated clear efficacy). She has taken nearly all of those at some point. Her current quetiapine dose of 250 mg/day is far below the typical range of 600- 800 mg/day used to treat schizophrenia or bipolar disorder, though it appears to be sufficient to suppress psychosis as well as to contribute to side effects. She might be able to reduce the dose a little, though it's likely she's already very close to her threshold for efficacy. As with lithium, subtherapeutic doses of antipsychotic medications still carry significant side effect risks. It appears as if the identifiable factor with the closest temporal association to her worsening has been a change from valbenazine to deutetrabenazine. It's plausible that this could account for recent functional changes. Since these medications have been being used to treat side effects of other medications (albeit significantly problematic ones), it is especially important to try to ensure that they themselves do not contribute to her burden of adverse effects. Tardive dyskinesia was thought of as essentially untreatable until the bahai of such medications, and there may not be any good alternatives. I'm not at all certain that she needs benztropine, since it may not be helping with her neuroleptic-induced parkinsonian symptoms and may not tolerate higher doses. (1) Bipolar 1 disorder: (2) Schizophrenia: (3) Tardive dyskinesia: (4) Neuroleptic-induced Parkinsonism: Plan I recommend avoiding changing her low-dose lithium and quetiapine given how well her symptoms are currently controlled. The vexatious issues have more to do with drugs she's taking to treat the effects of other drugs (including ones she took in the past but have caused permanent adverse effects), namely deutetrabenazine and benztropine. It may be necessary to try to decide whether the tardive dyskinesia is sufficiently problematic to warrant medication treatment at allf; the patient voices little awareness of it and no concern about it. Drug-induced parkinsonian symptoms can be debilitating and can certainly increase falls risk, so it's possible that focusing more on this could be appropriate. A wide range of anti-parkinsonian drugs can be helpful and the near-exclusive reliance on anticholinergic drugs such as benztropine within my specialty may have more to do with tradition than with evidence. Levodopa does have a tendency to exacerbate psychosis in already-psychotic patients, though working with neurologists I have often been able to find a balance between that and the antipsychotic medication causing or worsening a patient's parkinsonism. Overall, dopamine agonists have seemed less likely to worsen psychosis. As Dr. Garza's neurological consultation pointed out, Ms. Fraire has severe psychiatric problems for which the only treatments have known risks of toxicity, as do medications she's taking solely to mitigate some of those toxicities. It seems unlikely that any extant treatments will be sufficiently efficacious without problematic side effects. The best course, though far easier to recommend than to do, would be to decide which problems (including past problems that may be responding to treatment now, as well as side effects) are the most in need of treatment and try to focus on those while minimizing or eliminating anything that isn't intended to treat any of those priority problems and can't be shown to be necessary or tolerated. Psych History Identifying Data ALVARO FRAIRE is a 62-year-old F with a history of schizophrenia and bipolar disorder, admitted on 12/14/2022 for functional decline. Consult is by the hospitalist service for "bipolar, suspect austedo causing worsening func". Chief Complaint "I'm not sure why I'm here". History of Present Illness As part of a thorough review of the available medical records, I have read and confirmed the following note by the ED physician: "This patient is a 62-year-old female who has history of bipolar disorder comes in after having a functional decline. She has been not doing well over the last couple weeks she has had a hard time with her balance she has been falling she has slurred speech she was diagnosed with a UTI. She is on antibiotics at present. She had no fever no dysuria or hematuria but she had some frequency. She had decreased p.o. intake no chest pain shortness breath no headache she did fall today. She was called in as there was a positive blood culture for gram-positive bacilli x1 but it was thought to be contaminant. She has a history of bipolar she has had no suicidal homicidal ideations no new medication she has been taking her medications as directed office of aging is been involved. The family is very concerned about her being at home." the following note by the hospitalist: "Alvaro Fraire is a 62 year old female who presents to the ER after being called back for positive blood cultures. She denies any respiratory, gastrointestinal symptoms. Only urinary symptom of incontinence present but progressively getting worse over the last month. Main concern from her daughter is her functional decline with multiple neurological symptoms progressively getting worse over the last month resulting in recurrent falls for which was the main concern for her ER visit yesterday when the blood cultures were taken and the main reason patient was presented for admission to the medical team today as blood cultures suspected to be a contaminant. These symptoms appear to correlate with the same timeline start about a month ago. Include slurred speech, confusion (leaves hot water running and the stove on), urine incontinence, falls, shuffling gait, feeling cold all the time.Only recent medication change was switching from Ingrezza to Austedo on 11/08 with a dose increase on [12/01]. Her daughter reports this was changed by her psychiatrist due to tardive dyskinesia and has been helpful in that respect." and the following note by the psychiatric liaison nurse: "Patient seen for initial assessment, alert and oriented x 4 - bright and pleasant affect - relaxed and calm during interaction, denies SI/HI, denies hallucinations/delusions, patient has no current concerns with her mental state or living environment - but does acknowledge an increase in falls, denies issues with appetite or sleep" Review of the medical record reveals psychiatric history of previous admissions, most recently here in July 2022. Pt. carries diagnoses of schizophrenia and bipolar disorder. Her history is indicative of marked sensitivity to antipsychotic medications and to their side effects. Review of pertinent labs reveals they are noncontributory except for a "high- subtherapeutic" lithium level of 0.7 mmol/L. On approach pt lies in bed awake but looking at the ceiling. She has no recall of me from July. She is alert and her level of arousal does not fluctuate. She is oriented to person, "a hospital" (but says she can't name the hospital or town) in [place], Tuesday in December 2022 (but not to date). Pt seems unaware of her dyskinesia until asked about it. She says she doesn't think deutetrabenazine has made any difference. She does not have any concerns about her ability to care for herself nor any idea why anyone else (such as her family) might be concerned. I was not able to elicit any significant mood or psychotic symptoms. Past Psychiatric History Previous Psych Admissions: numerous, beginning at age 16. At least 6 admissions here, 2 to [facility] (including her first), [facility] Past Medication Trials: [place] - stable on it for 25 years, fluoxetine, gabapentin, risperidone, lurasidone, haloperidol, clozapine, oxcarbazepine, quetiapine, temazepam, lorazepam, zolpidem, cariprazine, iloperidone, lumateperone, paliperidone, valbenazine, deutetrabenazine Allergies Allergy/AdvReac Type Severity Reaction Status Date / Time Penicillins Allergy Intermediate Rash Verified 11/19/22 15:20 Home Medications Medication Instructions Recorded Confirmed Type atorvastatin 20 mg tablet (Lipitor) 20 mg PO HS #30 tabs 01/09/21 12/14/22 Rx docusate sodium 100 mg capsule 100 - 200 mg PO HS 02/08/22 12/14/22 History (Colace) aspirin 81 mg tablet,delayed 81 mg PO DAILY 11/19/22 12/14/22 History release benztropine 1 mg tablet 1 mg PO AMPM 11/19/22 12/14/22 History gabapentin 400 mg capsule 400 mg PO BID 11/19/22 12/14/22 History levothyroxine 75 mcg tablet 75 mcg PO QAM 11/19/22 12/14/22 History lithium carbonate 450 mg 450 mg PO HS 11/19/22 12/14/22 History tablet,extended release propranolol 10 mg tablet 10 mg PO BID 11/19/22 12/14/22 History quetiapine 200 mg tablet 200 mg PO QPM 11/19/22 12/14/22 History quetiapine 50 mg tablet 50 mg PO QAM 11/19/22 12/14/22 History trazodone 100 mg tablet 100 mg PO HS 11/19/22 12/14/22 History deutetrabenazine 12 mg tablet 12 mg PO BID 12/14/22 12/14/22 History (Austedo) Patient History Medical History (Updated 12/15/22 @ 18:20 by Josep Jimenez MD) Ambulatory dysfunction Bipolar 1 disorder Chronic diarrhea of unknown origin Cogwheel rigidity Constipation Decubitus ulcer, heel DVT prophylaxis Dystonic drug reaction Falling Fever Healthcare maintenance History of anesthesia reaction difficulty waking History of colon polyps Hyperlipidemia Hyperplastic colon polyp Insomnia Lung nodule Memory changes Neuroleptic malignant syndrome Observed seizure-like activity Psychosis Renal lesion Schizophrenia by history Suicidal ideation Tardive dyskinesia UTI (urinary tract infection) Weakness Surgical History History of colonoscopy with polypectomy History of conization of cervix History of cervical conization by laser History of dilation and curettage History of foot surgery x2--right--no hardware History of hysteroscopy History of right oophorectomy History of tooth extraction all upper teeth History of tubal ligation Family History Father Type 2 diabetes mellitus Family hx colonic polyps Brother Type 2 diabetes mellitus Sister Parathyroid disorder Brother Type 2 diabetes mellitus Other No family history of adverse response to anesthesia Social History Smoking Status: Never smoker Second Hand Exposure: No; Do You Dip or Chew Tobacco: No; Hx Alcohol Use: No Hx Substance Use: No Preferred Language: Malian Communication Ability: Effective Communication Ability Comment: patient often talks to fast, when asked to repeat - easier to understand Tapper Operator Required: No Beliefs That Will Affect Care: None marital status: Current Living Situation: Spouse current occupational status: unemployed 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 or town) and + not oriented to time ("Tuesday", "December 2022", but not date) Apperance: appropriately dressed (hospital garb), appropriately groomed and appeared stated age Eye Contact: + fair eye contact constant dyskinetic leg movements slow, quiet, brief, uninflected Affect: + flat affect blandly euthymic Thought Process: + concrete thought process Thought Content: + loneliness Suicidal Thoughts: denies suicidal thoughts, denies suicidal plan and denies suicidal intent Homicidal Thoughts: denies homicidal thoughts Hallucinations: no auditory hallucinations and no visual hallucinations Cognition: recent memory grossly intact, remote memory grossly intact, attention grossly intact and language grossly intact Estimated Intelligence: average estimated intelligence Insight: + poor insight Judgment: + impaired judgement Vital Signs (Past 24 Hours): Last Vital Signs Temp 36.4 C L 12/15/22 14:59 Pulse 65 12/15/22 14:59 Resp 16 12/15/22 14:59 BP 129/79 12/15/22 14:59 Pulse Ox 96 12/15/22 14:59 O2 Del Method Room Air 12/15/22 14:59 Review of Systems Psychiatric: + anhedonia; no depression, no hopelessness, no change in appetite, no suicidal ideation, no anxiety and no hallucinations Results & Data (PSY) Medications Administered Aspirin (Aspirin 81 Mg Ectab) 81 mg PO DAILY DONNIE Stop: 01/14/23 08:59 Last Admin: 12/15/22 08:45 Dose: 81 mg Documented By: SMM Atorvastatin Calcium (Atorvastatin 20 Mg Tab) 20 mg PO HS DONNIE Stop: 01/13/23 21:09 Last Admin: 12/14/22 22:04 Dose: 20 mg Documented By: KSC Benztropine Mesylate (Benztropine Mesylate 1 Mg Tab) 1 mg PO BID DONNIE Stop: 01/13/23 21:09 Last Admin: 12/15/22 08:45 Dose: 1 mg Documented By: Admin: 12/14/22 22:06 Dose: 1 mg Documented By: ESTEBAN Deutetrabenazine (Austedo 12 Mg Tablet) 1 each PO BID DONNIE Stop: 01/13/23 21:59 Last Admin: 12/15/22 08:46 Dose: 1 each Documented By: Admin: 12/14/22 22:06 Dose: 1 each Documented By: ESTEBAN Docusate Sodium (Docusate Sodium 100 Mg Cap) 200 mg PO HS [facility] Stop: 01/13/23 21:09 Last Admin: 12/14/22 22:06 Dose: 200 mg Documented By: ESTEBAN Gabapentin (Gabapentin 400 Mg Cap) 400 mg PO BID [facility] Stop: 01/13/23 21:09 Last Admin: 12/15/22 08:45 Dose: 400 mg Documented By: Admin: 12/14/22 22:05 Dose: 400 mg Documented By: ESTEBAN Levothyroxine Sodium (Levothyroxine Sodium 75 Mcg Tablet) 75 mcg PO DAILYBB [facility] Stop: 01/14/23 06:29 Last Admin: 12/15/22 05:47 Dose: 75 mcg Documented By: ESTEBAN [place] Carbonate ([place] Carbonate 450 Mg Tabcr) 450 mg PO HS [facility] Stop: 01/13/23 21:09 Last Admin: 12/14/22 22:05 Dose: 450 mg Documented By: ESTEBAN Propranolol HCl (Propranolol Hcl 10 Mg Tab) 10 mg PO BID [facility] Stop: 01/13/23 21:09 Last Admin: 12/15/22 08:47 Dose: Not Given Documented By: Admin: 12/14/22 22:04 Dose: 10 mg Documented By: ESTEBAN Quetiapine Fumarate (Quetiapine Fumarate 200 Mg Tab) 200 mg PO QPM [facility] Stop: 01/13/23 21:09 Last Admin: 12/14/22 22:04 Dose: 200 mg Documented By: ESTEBAN Quetiapine Fumarate (Quetiapine Fumarate 25 Mg Tablet) 50 mg PO QDB [facility] Stop: 01/14/23 07:29 Last Admin: 12/15/22 08:45 Dose: 50 mg Documented By: SMM Trazodone HCl (Trazodone Hcl 100 Mg Tab) 100 mg PO HS DONNIE Stop: 01/13/23 21:09 Last Admin: 12/14/22 22:04 Dose: 100 mg Documented By: ESTEBAN Coding Level of Care Code 24328 IN/OBS CONSULT LVL 3,45M Diagnoses Bipolar 1 disorder F31.9 Schizophrenia F20.9 Tardive dyskinesia G24.01 Neuroleptic-induced Parkinsonism G21.11 Time Spent (min) 52
[2022-12-15] MEDS: ATORVASTATIN 20 MG TAB PO SCH (20:26)
[2022-12-15] MEDS: QUEtiapine FUMARATE 200 MG TAB PO SCH (20:28)
[2022-12-15] MEDS: LITHIUM CARBONATE 450 MG TABCR PO SCH (20:28)
[2022-12-15] MEDS: DOCUSATE SODIUM 100 MG CAP PO SCH (20:28)
[2022-12-15] MEDS: traZODone HCL 100 MG TAB PO SCH (20:29)
--- NOTE | 2022-12-15 20:48 | Hospitalist Progress Note ---
Date of Service December 15, 2022 Assessment & Plan (1) Recurrent falls: Plan: Multifactorial - parkinsonism from long-term antipsychotic use, left knee advanced OA, potentially other factors. MRI brain negative for acute or subacute stroke. No evidence of any infectious process. Appreciate neuro consultation. Check B12/B1/CPK/folate/Lyme screen am. PT, OT consults. I don't see evidence of any injuries on exam fortunately despite recent fall. (2) Intermittent confusion: Plan: none noted today (3) Slurring of speech: Plan: medication side effect?? MRI brain neg for stroke no infectious process seen (4) Weakness: Plan: likely multifactorial PT, OT (5) Ambulatory dysfunction: Plan: see #1 above (6) Tardive dyskinesia: Plan: moderate remains on deutetrabenazine + benztropine in ideal world we reduce some of her antipsychotics but we run the risk of worsening bipolar symptoms psych has seen - prefers not to change her psych med regimen at this time no good solution for her current situation (7) Neuroleptic-induced Parkinsonism: Plan: as above (8) Hypothyroidism: Plan: TSH 0.329 - continue levothyroxine (9) Bipolar 1 disorder: Plan: Continue lithium and Seroquel (10) Left knee pain: Plan: exam c/w arthritis, likely advanced obtain knee x-rays andrew wu qid Plan granddaughter updated at bedside left message for pt's son on his voicemail as well Admission and Anticipated Discharge Date Admission Date: December 14, 2022 Subjective patient was walking the hallway with her granddaughter when I first arrived to see her she came back to the room her gait is very poor despite even using a walker; she kept veering to the right; there was some shuffling she c/o left knee pain present for a while but getting worse did have 1 fall recently - fell forwards, hit her head - denies injury or resulting pain/trauma/injury denies pain in any other location we had lengthy discussion about the neurology & psych consults I encouraged her to think about what symptom(s) she would want to attack/fix (gait, parkinsonism symptoms, etc) Review of Systems Review of Systems: cv - no chest pain pulm - no dyspnea GI - no abd pain Physical Exam Physical Exam: gen - tardive dyskinetic movements of arms, lips/tongue, etc; NAD otherwise mouth - MMM neck - no JVD heart - RRR, s1 s2, no murmur lungs - CTA b/l abd - soft NT ND BS+ ext - no edema, pulses 2+ b/l musculo - left knee - no effusion; crepitus with passive ROM; b/l joint line tenderness, lateral worse than medial; negative anterior drawer; negative for pain with varus/valgus stress Results & Data Results & Data Vital Signs (Past 12 Hours) Vital Signs Temp Pulse Resp BP Pulse Ox O2 Del Method 12/15/22 20:22 36.6 C 71 18 127/78 94 Room Air 12/15/22 14:59 36.4 C L 65 16 129/79 96 Room Air Laboratory Results Laboratory Results - last 24 hr 12/14/22 22:15 Urine Color Yellow Urine Appearance Clear Urine pH 7.0 Ur Specific [place] 1.009 Urine Protein Negative Urine Glucose (UA) Negative Urine Ketones Negative Urine Blood Negative Urine Nitrite Negative Urine Bilirubin Negative Urine Urobilinogen Negative Ur Leukocyte Esterase 1+ H Urine WBC (Auto) 5-10 H Urine RBC (Auto) 0-4 U Hyaline Cast (Auto) 0 U Epithel Cells (Auto) >30 H Urine Bacteria (Auto) Negative PG Care Time/CCT Total # of Minutes Spent Total Time Spent with Patient: Total time spent is greater than 50% in coordination of care (as documented) at patient's floor/unit and/or counseling patient: Coding Level of Care Code 83697 SUB INP/OBS CARE 2/35MIN Diagnoses Recurrent falls R29.6 Intermittent confusion R41.0 Slurring of speech R47.81 Weakness R53.1 Ambulatory dysfunction R26.2 Tardive dyskinesia G24.01 Neuroleptic-induced Parkinsonism G21.11 Hypothyroidism E03.9 Bipolar 1 disorder F31.9 Left knee pain M25.562
[2022-12-15] MEDS: DICLOFENAC SOD 1% GEL 100 GM TUBE EXT SCH (21:37)
[2022-12-16] MEDS: LEVOTHYROXINE SODIUM 75 MCG TABLET PO SCH (05:31)
--- NOTE | 2022-12-16 06:18 | Electrocardiogram Report ---
Test Reason : Blood Pressure : / mmHG Vent. Rate : 059 BPM Atrial Rate : 059 BPM P-R Int : 158 ms QRS Dur : 070 ms QT Int : 412 ms P-R-T Axes : 017 018 013 degrees QTc Int : 407 ms Sinus bradycardia Low voltage QRS Nonspecific T wave abnormality When compared with ECG of 07-DEC-2022 17:15, No significant change was found Confirmed by Veto Acosta ([id number]) on 12/16/2022 6:17:32 AM Referred By: Confirmed By:Veto Acosta
[2022-12-16] MEDS: QUEtiapine FUMARATE 25 MG TABLET PO SCH (07:44)
[2022-12-16] MEDS: PROPRANOLOL HCL 10 MG TAB PO SCH ×2 (08:10→20:28)
[2022-12-16] MEDS: GABAPENTIN 400 MG CAP PO SCH ×2 (08:11→20:27)
[2022-12-16] MEDS: ASPIRIN 81 MG ECTAB PO SCH (08:11)
[2022-12-16] MEDS: AUSTEDO 12 MG PO SCH ×2 (08:11→20:26)
--- NOTE | 2022-12-16 08:11 | XRay Report ---
XR knee LT 1 or 2V routine CLINICAL HISTORY: lateral joint line pain COMPARISON: Left knee radiographs October 29, 2020. FINDINGS: No fracture is present. There is no joint effusion. Severe medial compartment joint space narrowing has progressed. There is also moderate to severe patellofemoral compartment joint space lupis rowing with chondrosis. Lateral compartment joint space narrowing is noted. No lesions are identified . IMPRESSION: 1. No acute fracture. No left knee joint effusion. 2. Progression of moderate to severe tricompartmental osteoarthritis of the left knee. ACT 112: Negative or not required by law. Electronically signed by: Juan Jose Laws M.D. 12/16/2022 8:09 AM
[2022-12-16] MEDS: DICLOFENAC SOD 1% GEL 100 GM TUBE EXT SCH ×4 (08:12→20:27)
[2022-12-16] MEDS: BENZTROPINE MESYLATE 1 MG TAB PO SCH ×2 (08:12→20:26)
[2022-12-16 10:18] LABS: Lyme Ab IgG w/WB Rflx Negative (Negative)
[2022-12-16 10:19] LABS: Lyme Ab IgM w/WB Rflx Negative (Negative)
[2022-12-16] MEDS: THIAMINE HCL 100 MG TAB PO SCH ×2 (10:33→20:29)
[2022-12-16 11:10] LABS: Folate (Folic Acid),Ser orPlas 12.6 ng/ml (>5.38)
[2022-12-16] MEDS: CYANOCOBALAMIN 1000 MCG/ML VIAL IM SCH (13:34)
[2022-12-16] MEDS: ATORVASTATIN 20 MG TAB PO SCH (20:25)
[2022-12-16] MEDS: DOCUSATE SODIUM 100 MG CAP PO SCH (20:27)
[2022-12-16] MEDS: LITHIUM CARBONATE 450 MG TABCR PO SCH (20:28)
[2022-12-16] MEDS: traZODone HCL 100 MG TAB PO SCH (20:29)
[2022-12-16] MEDS: QUEtiapine FUMARATE 200 MG TAB PO SCH (20:29)
[2022-12-16] MEDS: HEPARIN SOD 5,000 UNIT/0.5 ML VIAL SQ SCH (20:53)
[2022-12-17] MEDS: LEVOTHYROXINE SODIUM 75 MCG TABLET PO SCH (06:01)
[2022-12-17] MEDS: QUEtiapine FUMARATE 25 MG TABLET PO SCH (08:06)
[2022-12-17] MEDS: THIAMINE HCL 100 MG TAB PO SCH ×2 (08:26→20:53)
[2022-12-17] MEDS: PROPRANOLOL HCL 10 MG TAB PO SCH ×2 (08:26→20:53)
[2022-12-17] MEDS: BENZTROPINE MESYLATE 1 MG TAB PO SCH ×2 (08:26→20:51)
[2022-12-17] MEDS: ASPIRIN 81 MG ECTAB PO SCH (08:26)
[2022-12-17] MEDS: AUSTEDO 12 MG PO SCH ×2 (08:27→20:51)
[2022-12-17] MEDS: GABAPENTIN 400 MG CAP PO SCH ×2 (08:27→20:54)
[2022-12-17] MEDS: DICLOFENAC SOD 1% GEL 100 GM TUBE EXT SCH ×4 (08:27→20:51)
[2022-12-17] MEDS: HEPARIN SOD 5,000 UNIT/0.5 ML VIAL SQ SCH ×2 (08:33→20:54)
[2022-12-17] MEDS: CYANOCOBALAMIN 1000 MCG/ML VIAL IM SCH (08:34)
--- NOTE | 2022-12-17 10:21 | Hospitalist Progress Note ---
Date of Service December 16, 2022 Assessment & Plan (1) Recurrent falls: Plan: Multifactorial - parkinsonism from long-term antipsychotic use, left knee advanced OA, ?B12 deficiency causing balance problems, potentially other factors. MRI brain negative for acute or subacute stroke. No evidence of any infectious process. Appreciate neuro consultation. Replace low B12. While awaiting B1 level start thiamine 200mg BID. Refer to ortho for advanced L knee OA. Voltaren gel qid in meantime. PT, OT consults appreciated. I don't see evidence of any injuries on exam fortunately despite recent fall. (2) Intermittent confusion: Plan: ongoing uncertain if this is toxic encephalopathy from her polypharmacy vs early dementia process from long-standing mental health disorders vs metabolic enceph alopathy vs combination of factors MRI brain neg for acute process I discussed her memory, etc with son by phone today (3) Slurring of speech: Plan: resolved etiology? (4) Weakness: Plan: likely multifactorial cont PT, OT (5) Ambulatory dysfunction: Plan: see above (6) Tardive dyskinesia: Plan: moderate remains on deutetrabenazine + benztropine in ideal world we reduce some of her antipsychotics but we run the risk of worsening bipolar symptoms psych has seen - prefers not to change her psych med regimen at this time I had a dialogue today with both Dr Jimenez & Dr Garza from psych and neuro, respectively Again there is no clear-cut path or option that would be best for her After speaking with her son Bennie he feels she has done worse on Austedo in comparison to Ingrezza Further, he feels the dose increase in seroquel may have had a negative impact as well He is going to talk with his sister about whether to consider changing her back to Ingrezza - we would do that while she is here He will let us know on 12/17/22 (7) Neuroleptic-induced Parkinsonism: Plan: as above (8) Hypothyroidism: Plan: TSH 0.329 - continue levothyroxine (9) Bipolar 1 disorder: Plan: Continue lithium and Seroquel See above discussion (10) Left knee pain: Plan: 2nd advanced OA as seen on knee x-rays voltaren gel qid ortho referral post-d/c (11) B12 deficiency: Plan: replace IM while here, then PO after d/c empiric thiamine as well (12) Osteoarthritis of knee, unspecified: Plan: left knee as above Plan granddaughter updated at bedside yesterday near 20min discussion by phone with son Bennie this evening he would like to secure more services & caregivers for her mother before she discharges he has been in touch with [facility] I will notify case management Admission and Anticipated Discharge Date Admission Date: December 16, 2022 Subjective no issues overnight pt eating well when asked what symptoms she would like to be better she first stated she wasn't sure on questioning again she said she would like her left knee to feel better the voltaren gel is helping denies any new complaints Review of Systems Review of Systems: cv - no chest pain pulm - no dyspnea GI - no abdominal pain or N/V Physical Exam Physical Exam: gen - tardive dyskinetic movements of arms, lips/tongue, etc - unchanged mouth - MMM neck - no JVD heart - RRR, s1 s2, no murmur lungs - CTA b/l abd - soft NT ND BS+ ext - no edema, pulses 2+ b/l psych - knows she is in the hospital; thought it was Tuesday, couldn't name the month, and thought it was 2021 Results & Data Results & Data Vital Signs (Past 12 Hours) Vital Signs Temp Pulse Resp BP Pulse Ox O2 Del Method 12/16/22 14:52 37.0 C 61 17 109/73 96 Room Air Laboratory Results Laboratory Results - last 48 hr 12/16/22 12/16/22 12/16/22 07:41 07:41 07:41 Total Creatine Kinase 31 Vitamin B12 180 Folate 12.60 Lyme Disease IgG Ab Negative Lyme Disease IgM Ab Negative PG Care Time/CCT Total # of Minutes Spent Total Time Spent with Patient: Total time spent is greater than 50% in coordination of care (as documented) at patient's floor/unit and/or counseling patient: Coding Level of Care Code 63900 SUB INP/OBS CARE 3/50MIN Diagnoses Recurrent falls R29.6 Intermittent confusion R41.0 Slurring of speech R47.81 Weakness R53.1 Ambulatory dysfunction R26.2 Tardive dyskinesia G24.01 Neuroleptic-induced Parkinsonism G21.11 Hypothyroidism E03.9 Bipolar 1 disorder F31.9 Left knee pain M25.562 B12 deficiency E53.8 Osteoarthritis of knee, unspecified M17.9
--- NOTE | 2022-12-17 12:26 | Neurology Progress Note ---
Date of Service December 17, 2022 Assessment & Plan (1) Recurrent falls: (2) Weakness: (3) Slurring of speech: (4) Tardive dyskinesia: (5) Tremor: (6) Neuroleptic-induced Parkinsonism: (7) Bipolar 1 disorder: (8) Unspecified psychosis not due to a substance or known physiological condition: Plan This is a complicated patient overall with multiple psychiatric and neurologic issues. The patient has been deteriorating over the last several weeks. Her action tremor is actually improved on gabapentin and propranolol at current doses. She has some tardive dyskinesia but it is very suppressed. This is likely due to the deutetrabenazine. patient's family, however, believes that this medicine has given her more side effects than her previous medication (valbenazine) She does have some significant Parkinson's features including cogwheel rigidity, bradykinesia, and features of Parkinson's gait. I am not certain how much benztropine is helping her. Nevertheless, she might be worse off of it. She is still on significant doses of Seroquel which would cause Neuroleptic induced parkinsonism. I am uncertain of the state of her psychosis and bipolar disorder are at this time. She has known peripheral neuropathy, cognitive deficits, and abnormal movements ( twitches, jerks of the limbs, and gait disturbance). These maybe a little worse. He has ataxia with gait as well. When I last saw her she had been off lithium for about a year and a half (after having been on it for 33 years). Sometime in the last year this was restarted at a significant dose. Several years ago, I was very concerned about chronic lithium induced neurotoxicity. The "ataxia" and movements could be coming out more now that this medicine has been restarted. Muscle twitching and jerks, slurred speech, parkinsonism, psychosis, dementia, renal issues ( which she does not have) and a progressive ataxia can be due to the chronic effects of lithium. In some cases these are irreversible even after stopping the medication. Otherwise, neurologically she is doing fairly well and her MRI (once again) was unremarkable/normal). Recommendations: 1. consider reducing or discontinuing lithium ( I know it is efficacious his from a psychiatric standpoint, but is very detrimental from a neurologic standpoint ). As long as she stays on lithium she would be at risk for progressive and/or permanent neurologic issues as listed above 2. If deutetrabenazine is being discontinued then consider re-initiating valbenazine 40 mg daily. 3. Continue gabapentin and propranolol at current doses, as this is dampening the essential tremor. 4. unfortunately, the care of this patient will come down to "which is more important", controlling psychiatric issues or the neurologic complications that come from the medications of treating the psychiatric problems. 5. Consider physical and occupational therapy to help with gait and strengthening. 6. can follow up with Neurology as an outpatient once discharged ( Kendra Das PA-C). Please contact me if I can be of further assistance on this case. Overall, I spent a total of 35 minutes with this case including review of records, direct evaluation of the patient at bedside, report generation, and discussion of the case with the patient at bedside, and Dr. Pena including differential diagnosis and treatment options. Admission and Anticipated Discharge Date Admission Date: December 16, 2022 Subjective The patient "does not feel well" but cannot give me any more specifics. she tells me her head hurts a little but does not really have pain anywhere else. She is not very communicative and turns away from me and closes her eyes. CK was 31, Lyme antibody titers were negative, and B12 was 180. Blood pressure is 120/81 and pulse is 59. Apparently family states that the deutetrabenazine has given her more side effects than the valbenazine in the past Results & Data Vital Signs (Past 12 Hours) Vital Signs Temp Pulse Resp BP Pulse Ox O2 Del Method 12/17/22 07:28 36.8 C 59 L 16 120/81 100 Room Air Exam (Neuro) Physical Exam: she is laying on her right side her old in a position with her eyes closed. With voice she will open her eyes make brief eye contact and turn her head back and close her eyes. She will speak to me some but is not interested in talking or communicating. She will follow some one-step commands. Extraocular eye muscles are intact without nystagmus. There is no facial droop and tongue is midline. Coordination seems normal in the arms and strength is symmetrical in the arms. I see no tremor and rigidity is the same as 8-2. She does have a little bit of lip-smacking /tongue protrusion, from time to time similar as my last visit with her. PG Care Time/CCT Total # of Minutes Spent Total Time Spent with Patient: Total time spent is greater than 50% in coordination of care (as documented) at patient's floor/unit and/or counseling patient: Coding Level of Care Code 59718 SUB INP/OBS CARE 2/35MIN Diagnoses Recurrent falls R29.6 Weakness R53.1 Slurring of speech R47.81 Tardive dyskinesia G24.01 Tremor R25.1 Neuroleptic-induced Parkinsonism G21.11 Bipolar 1 disorder F31.9 Unspecified psychosis not due to a substance or known physiological condition F29 Time Spent (min) 35
--- NOTE | 2022-12-17 20:17 | Hospitalist Progress Note ---
Date of Service December 17, 2022 Assessment & Plan (1) Recurrent falls: Plan: Multifactorial - parkinsonism from long-term antipsychotic use, left knee advanced OA, ?B12 deficiency causing balance problems, potentially other factors. MRI brain negative for acute or subacute stroke. No evidence of any infectious process. +blood culture from several days ago is contaminant. Appreciate neuro consultation. Replace low B12. While awaiting B1 level start thiamine 200mg BID. Refer to ortho post-discharge for advanced L knee OA. Cont Voltaren gel qid. Cont PT, OT. (2) Intermittent confusion: Plan: ongoing uncertain if this is toxic encephalopathy from her polypharmacy vs early dementia process from long-standing mental health disorders vs metabolic encephalopathy vs combination of factors MRI brain neg for acute process fortunately no agitation (3) Slurring of speech: Plan: resolved (4) Weakness: Plan: multifactorial cont PT, OT (5) Ambulatory dysfunction: Plan: see above partially from parkinsonism, partially due to advanced OA of L knee, etc. (6) Tardive dyskinesia: Plan: moderate remains on deutetrabenazine + benztropine in ideal world we reduce some of her antipsychotics but we run the risk of worsening bipolar symptoms psych has seen - prefers not to change her psych med regimen at this time After speaking with her son Bennie several times he feels she has done worse on Austedo in comparison to Ingrezza, especially when the dose of Austedo was increased from 9mg BID to 12mg BID He spoke with his sister and they would like to go back to the 9mg dose He will bring in the home stock tomorrow (7) Neuroleptic-induced Parkinsonism: Plan: as above (8) Hypothyroidism: Plan: TSH 0.329 - continue levothyroxine (9) Bipolar 1 disorder: Plan: Continue lithium and Seroquel See above discussion (10) Left knee pain: Plan: 2nd advanced OA as seen on knee x-rays voltaren gel qid ortho referral post-d/c (11) B12 deficiency: Plan: replace IM while here, then PO after d/c empiric thiamine as well B1 level pending (12) Osteoarthritis of knee, unspecified: Plan: left knee as above Plan son updated by phone this evening social work and son working together to secure additional services for her upon return home Admission and Anticipated Discharge Date Admission Date: December 16, 2022 Subjective pt resting comfortably in bed denies complaints anxious to go home eating well no new complaints no nursing staff concerns Review of Systems Review of Systems: cv - no chest pain pulm - no dyspnea GI - no nausea or emesis Physical Exam Physical Exam: gen - tardive dyskinetic movements as previous, NAD, pleasant, cooperative mouth - MMM neck - no JVD heart - RRR, s1 s2, no murmur lungs - CTA b/l abd - soft NT ND BS+ ext - no edema, pulses 2+ b/l Results & Data Results & Data Vital Signs (Past 12 Hours) Vital Signs Temp Pulse Resp BP Pulse Ox O2 Del Method 12/17/22 15:15 36.8 C 62 18 100/63 94 Room Air PG Care Time/CCT Total # of Minutes Spent Total Time Spent with Patient: Total time spent is greater than 50% in coordination of care (as documented) at patient's floor/unit and/or counseling patient: Coding Level of Care Code 11890 SUB INP/OBS CARE 2/35MIN Diagnoses Recurrent falls R29.6 Intermittent confusion R41.0 Slurring of speech R47.81 Weakness R53.1 Ambulatory dysfunction R26.2 Tardive dyskinesia G24.01 Neuroleptic-induced Parkinsonism G21.11 Hypothyroidism E03.9 Bipolar 1 disorder F31.9 Left knee pain M25.562 B12 deficiency E53.8 Osteoarthritis of knee, unspecified M17.9
[2022-12-17] MEDS: DOCUSATE SODIUM 100 MG CAP PO SCH (20:52)
[2022-12-17] MEDS: LITHIUM CARBONATE 450 MG TABCR PO SCH (20:52)
[2022-12-17] MEDS: QUEtiapine FUMARATE 200 MG TAB PO SCH (20:52)
[2022-12-17] MEDS: ATORVASTATIN 20 MG TAB PO SCH (20:53)
[2022-12-17] MEDS: traZODone HCL 100 MG TAB PO SCH (20:53)
[2022-12-18] MEDS: LEVOTHYROXINE SODIUM 75 MCG TABLET PO SCH (05:52)
[2022-12-18] MEDS: ASPIRIN 81 MG ECTAB PO SCH (08:02)
[2022-12-18] MEDS: QUEtiapine FUMARATE 25 MG TABLET PO SCH (08:02)
[2022-12-18] MEDS: THIAMINE HCL 100 MG TAB PO SCH ×2 (08:02→20:34)
[2022-12-18] MEDS: AUSTEDO 12 MG PO SCH (08:03)
[2022-12-18] MEDS: BENZTROPINE MESYLATE 1 MG TAB PO SCH ×2 (08:03→20:38)
[2022-12-18] MEDS: CYANOCOBALAMIN 1000 MCG/ML VIAL IM SCH (08:03)
[2022-12-18] MEDS: HEPARIN SOD 5,000 UNIT/0.5 ML VIAL SQ SCH ×2 (08:04→20:39)
[2022-12-18] MEDS: GABAPENTIN 400 MG CAP PO SCH ×2 (08:04→20:35)
[2022-12-18] MEDS: DICLOFENAC SOD 1% GEL 100 GM TUBE EXT SCH ×4 (08:04→20:32)
[2022-12-18] MEDS: PROPRANOLOL HCL 10 MG TAB PO SCH ×2 (08:10→20:35)
--- NOTE | 2022-12-18 20:27 | Hospitalist Progress Note ---
Date of Service December 18, 2022 Assessment & Plan (1) Recurrent falls: Plan: Multifactorial - parkinsonism from long-term antipsychotic use, left knee advanced OA, ?B12 deficiency causing balance problems, potentially other factors. MRI brain negative for acute or subacute stroke. No evidence of any infectious process. +blood culture from several days ago is contaminant. Appreciate neuro consultation. Replace low B12. While awaiting B1 level cont thiamine 200mg BID. Refer to ortho post-discharge for advanced L knee OA. Cont Voltaren gel qid for L knee. Cont PT, OT. Making a change in her Deutetrabenazine today (from 12mg BID to 9mg BID). (2) Intermittent confusion: Plan: ongoing uncertain if this is toxic encephalopathy from her polypharmacy vs early dementia process from long-standing mental health disorders vs metabolic encephalopathy vs combination of factors MRI brain neg for acute process fortunately no agitation suspect she is developing a dementia process (3) Slurring of speech: Plan: resolved (4) Weakness: Plan: multifactorial cont PT, OT (5) Ambulatory dysfunction: Plan: see above partially from parkinsonism, partially due to advanced OA of L knee, etc. (6) Tardive dyskinesia: Plan: moderate remains on deutetrabenazine + benztropine in ideal world we reduce some of her antipsychotics but we run the risk of worsening bipolar symptoms psych has seen - prefers not to change her psych med regimen at this time After speaking with her son Bennie several times he feels she has done worse on Austedo in comparison to Ingrezza, especially when the dose of Austedo was increased from 9mg BID to 12mg BID He spoke with his sister and they would like to go back to the 9mg dose He brought in the 9mg dose today Will make the change from 12mg BID to 9mg BID starting tonight (7) Neuroleptic-induced Parkinsonism: Plan: as above (8) Hypothyroidism: Plan: TSH 0.329 - continue levothyroxine (9) Bipolar 1 disorder: Plan: Continue lithium and Seroquel See above discussion (10) Left knee pain: Plan: 2nd advanced OA as seen on knee x-rays voltaren gel qid ortho referral post-d/c (11) B12 deficiency: Plan: replace IM while here, then PO after d/c empiric thiamine as well B1 level pending (12) Osteoarthritis of knee, unspecified: Plan: left knee as above Plan son updated by phone yesterday evening social work and son working together to secure additional services for her upon return home (there has been mention of [facility], etc) Admission and Anticipated Discharge Date Admission Date: December 16, 2022 Subjective no events overnight left knee feels better she was confused throughout the visit - much of what she said didn't make sense shifting from topic to topic son brought in 9mg tabs of deutetrabenazine today Review of Systems Review of Systems: cv - no chest pain pulm - no dyspnea or KIM GI - no pain or nausea Physical Exam Physical Exam: gen - tardive dyskinetic movements as previous, NAD, pleasant - but shifting from topic to topic mouth - MMM neck - no JVD heart - RRR, s1 s2, no murmur lungs - CTA b/l abd - soft NT ND BS+ ext - no edema, pulses 2+ b/l musculo - left knee with mild bruise present Results & Data Results & Data Vital Signs (Past 12 Hours) Vital Signs Temp Pulse Resp BP Pulse Ox O2 Del Method 12/18/22 15:09 37.1 C 57 L 16 102/66 97 Room Air PG Care Time/CCT Total # of Minutes Spent Total Time Spent with Patient: Total time spent is greater than 50% in coordination of care (as documented) at patient's floor/unit and/or counseling patient: Coding Level of Care Code 16880 SUB INP/OBS CARE 1/25MIN Diagnoses Recurrent falls R29.6 Intermittent confusion R41.0 Slurring of speech R47.81 Weakness R53.1 Ambulatory dysfunction R26.2 Tardive dyskinesia G24.01 Neuroleptic-induced Parkinsonism G21.11 Hypothyroidism E03.9 Bipolar 1 disorder F31.9 Left knee pain M25.562 B12 deficiency E53.8 Osteoarthritis of knee, unspecified M17.9
[2022-12-18] MEDS: DEUTETRABENAZINE 9 MG PO SCH (20:33)
[2022-12-18] MEDS: LITHIUM CARBONATE 450 MG TABCR PO SCH (20:36)
[2022-12-18] MEDS: ATORVASTATIN 20 MG TAB PO SCH (20:36)
[2022-12-18] MEDS: QUEtiapine FUMARATE 200 MG TAB PO SCH (20:37)
[2022-12-18] MEDS: DOCUSATE SODIUM 100 MG CAP PO SCH (20:37)
[2022-12-18] MEDS: traZODone HCL 100 MG TAB PO SCH (20:38)
[2022-12-19] MEDS: LEVOTHYROXINE SODIUM 75 MCG TABLET PO SCH (05:30)
[2022-12-19 05:49] LABS: Hematocrit (blood only) 35.1 % (37.0-47.0); Hemoglobin 11.7 g/dl (12.0-16.0); Mean Corpuscular Hemoglobin 30.6 pg (25.0-34.0); Mean Corpuscular Hgb Conc 33.3 g/dL (32.0-36.0); Mean Corpuscular Volume 91.9 fL (80.0-100.0); Mean Platelet Volume 11.2 fL (9.4-12.4); Platelet Count 133 K/uL (130-400); RDW Standard Deviation 40.4 fL (36.4-46.3); Red Blood Count 3.82 M/uL (4.20-5.40); White Blood Count 6.77 K/ul (4.8-10.8)
[2022-12-19 06:07] LABS: Calcium 9.2 mg/dl (8.6-10.3); Creatinine Clr Calc Pharmacy 54.2 ml/min; Est GFR (African American) 86.4 ml/min; Est GFR (Non-African American) 74.5 ml/min; Potassium 3.9 mmol/L (3.5-5.1)
[2022-12-19] MEDS: HEPARIN SOD 5,000 UNIT/0.5 ML VIAL SQ SCH ×2 (07:45→20:05)
[2022-12-19] MEDS: THIAMINE HCL 100 MG TAB PO SCH ×2 (07:45→20:06)
[2022-12-19] MEDS: GABAPENTIN 400 MG CAP PO SCH ×2 (07:45→20:06)
[2022-12-19] MEDS: BENZTROPINE MESYLATE 1 MG TAB PO SCH ×2 (07:45→20:06)
[2022-12-19] MEDS: QUEtiapine FUMARATE 25 MG TABLET PO SCH (07:46)
[2022-12-19] MEDS: CYANOCOBALAMIN 1000 MCG/ML VIAL IM SCH (07:46)
[2022-12-19] MEDS: ASPIRIN 81 MG ECTAB PO SCH (07:46)
[2022-12-19] MEDS: PROPRANOLOL HCL 10 MG TAB PO SCH ×2 (07:46→20:14)
[2022-12-19] MEDS: DEUTETRABENAZINE 9 MG PO SCH ×2 (07:47→20:04)
[2022-12-19] MEDS: DICLOFENAC SOD 1% GEL 100 GM TUBE EXT SCH ×4 (07:48→20:04)
[2022-12-19] MEDS: ATORVASTATIN 20 MG TAB PO SCH (20:05)
[2022-12-19] MEDS: DOCUSATE SODIUM 100 MG CAP PO SCH (20:05)
[2022-12-19] MEDS: LITHIUM CARBONATE 450 MG TABCR PO SCH (20:06)
[2022-12-19] MEDS: traZODone HCL 100 MG TAB PO SCH (20:06)
[2022-12-19] MEDS: QUEtiapine FUMARATE 200 MG TAB PO SCH (20:07)
--- NOTE | 2022-12-19 20:14 | Hospitalist Progress Note ---
Date of Service December 19, 2022 Assessment & Plan (1) Recurrent falls: Plan: Multifactorial - parkinsonism from long-term antipsychotic use, left knee advanced OA, ?B12 deficiency causing balance problems, side effects from Deutetrabenazine?, potentially other factors. MRI brain negative for acute or subacute stroke. No evidence of any infectious process. +blood culture from several days ago is contaminant as repeat blood cx's off of antibiotics were neg x 5 days. Appreciate neuro consultation. Cont to replace low B12. While awaiting B1 level cont thiamine 200mg BID. Refer to ortho post-discharge for advanced L knee OA. Cont Voltaren gel qid for L knee. Cont PT, OT. Deutetrabenazine dose adjustment from 12mg BID to 9mg BID took place last pm. Follow to see response from such. (2) Intermittent confusion: Plan: ongoing uncertain if this is toxic encephalopathy from her polypharmacy vs early dementia process from long-standing mental health disorders vs metabolic encephalopathy vs combination of factors MRI brain neg for acute process fortunately no agitation suspect she is developing a dementia process B12 def could contribute (3) Slurring of speech: Plan: resolved (4) Weakness: Plan: multifactorial cont PT, OT (5) Ambulatory dysfunction: Plan: see above partially from parkinsonism, partially due to advanced OA of L knee, etc. (6) Tardive dyskinesia: Plan: moderate remains on deutetrabenazine + benztropine in ideal world we reduce some of her antipsychotics but we run the risk of worsening bipolar symptoms psych has seen - prefers not to change her psych med regimen at this time After speaking with her son Bennie several times he feels she has done worse on [place] in comparison to Ingrezza, especially when the dose of [place] was increased from 9mg BID to 12mg BID He spoke with his sister and they would like to go back to the 9mg dose Made the change from 12mg BID to 9mg BID 12/18/22 (7) Neuroleptic-induced Parkinsonism: Plan: as above (8) Hypothyroidism: Plan: TSH 0.329 - continue levothyroxine (9) Bipolar 1 disorder: Plan: Continue lithium and Seroquel See above discussion (10) Left knee pain: Plan: 2nd advanced OA as seen on knee x-rays voltaren gel qid ortho referral post-d/c (11) B12 deficiency: Plan: tomorrow is 5th dose of IM B12 stop IM shots tomorrow then change to PO B12 1000mcg daily starting 12/21/22 cont empiric thiamine - B1 level still pending (12) Osteoarthritis of knee, unspecified: Plan: left knee as above Plan son updated by phone this weekend social work and son working together to secure additional services for her upon return home (there has been mention of [facility], etc) Admission and Anticipated Discharge Date Admission Date: December 16, 2022 Subjective by nursing report pt was having visual hallucinations earlier in the day when I came to visit her these had stopped she was disoriented, and not able to give any meaningful history she did state that her left knee felt better she denied pain in any other location she stated she "felt good" Review of Systems Review of Systems: cv - denied chest pain pulm - denied dyspnea GI - denied pain, nausea - denied dysuria Physical Exam Physical Exam: gen - tardive dyskinetic movements as previous, NAD, pleasant, confused; sitting in chair mouth - MMM neck - no JVD heart - RRR, s1 s2, no murmur lungs - CTA b/l abd - soft NT ND BS+ ext - no edema, pulses 2+ b/l Results & Data Results & Data Vital Signs (Past 12 Hours) Vital Signs Temp Pulse Resp BP Pulse Ox O2 Del Method 12/19/22 17:21 37.2 C 63 16 100/68 97 Room Air 12/19/22 11:11 Room Air Laboratory Results Laboratory Results - last 24 hr 12/19/22 12/19/22 05:30 05:30 WBC 6.77 RBC 3.82 L Hgb 11.7 L Hct 35.1 L MCV 91.9 MCH 30.6 MCHC 33.3 RDW Std Deviation 40.4 RDW Coeff of Zakiya 12.0 Plt Count 133 MPV 11.2 Sodium 140 Potassium 3.9 Chloride 109 H Carbon Dioxide 26 Anion Gap 5 BUN 10 Creatinine 0.83 Est Cr Clr Drug Dosing 54.2 Est GFR ( Amer) 86.4 Est GFR (Non-Af Amer) 74.5 BUN/Creatinine Ratio 12.0 Glucose 92 Calcium 9.2 PG Care Time/CCT Total # of Minutes Spent Total Time Spent with Patient: Total time spent is greater than 50% in coordination of care (as documented) at patient's floor/unit and/or counseling patient: Coding Level of Care Code 98711 SUB INP/OBS CARE Diagnoses Recurrent falls R29.6 Intermittent confusion R41.0 Slurring of speech R47.81 Weakness R53.1 Ambulatory dysfunction R26.2 Tardive dyskinesia G24.01 Neuroleptic-induced Parkinsonism G21.11 Hypothyroidism E03.9 Bipolar 1 disorder F31.9 Left knee pain M25.562 B12 deficiency E53.8 Osteoarthritis of knee, unspecified M17.9
[2022-12-20] MEDS: LEVOTHYROXINE SODIUM 75 MCG TABLET PO SCH (06:07)
[2022-12-20] MEDS: BENZTROPINE MESYLATE 1 MG TAB PO SCH ×2 (08:04→20:13)
[2022-12-20] MEDS: GABAPENTIN 400 MG CAP PO SCH ×2 (08:04→20:14)
[2022-12-20] MEDS: QUEtiapine FUMARATE 25 MG TABLET PO SCH (08:04)
[2022-12-20] MEDS: THIAMINE HCL 100 MG TAB PO SCH ×2 (08:04→20:14)
[2022-12-20] MEDS: ASPIRIN 81 MG ECTAB PO SCH (08:04)
[2022-12-20] MEDS: CYANOCOBALAMIN 1000 MCG/ML VIAL IM SCH (08:05)
[2022-12-20] MEDS: PROPRANOLOL HCL 10 MG TAB PO SCH ×2 (08:05→20:25)
[2022-12-20] MEDS: DICLOFENAC SOD 1% GEL 100 GM TUBE EXT SCH ×4 (08:06→20:15)
[2022-12-20] MEDS: DEUTETRABENAZINE 9 MG PO SCH ×2 (08:06→20:13)
[2022-12-20] MEDS: HEPARIN SOD 5,000 UNIT/0.5 ML VIAL SQ SCH ×2 (08:07→20:14)
[2022-12-20] MEDS: ATORVASTATIN 20 MG TAB PO SCH (20:15)
[2022-12-20] MEDS: DOCUSATE SODIUM 100 MG CAP PO SCH (20:15)
[2022-12-20] MEDS: traZODone HCL 100 MG TAB PO SCH (20:15)
[2022-12-20] MEDS ORDERED: QUEtiapine FUMARATE 25 MG TABLET PO PRN (20:15)
[2022-12-20] MEDS: QUEtiapine FUMARATE 200 MG TAB PO SCH (20:16)
[2022-12-20] MEDS: LITHIUM CARBONATE 450 MG TABCR PO SCH (20:16)
--- NOTE | 2022-12-20 20:18 | Hospitalist Progress Note ---
Date of Service December 20, 2022 Assessment & Plan (1) Recurrent falls: Plan: Multifactorial - parkinsonism from long-term antipsychotic use, left knee advanced OA, ?B12 deficiency causing balance problems, ?B1 deficiency, side effects from Deutetrabenazine?, potentially other factors. MRI brain negative for acute or subacute stroke. No evidence of any infectious process. +blood culture from several days ago is contaminant as repeat blood cx's off of antibiotics were neg x 5 days. Appreciate neuro consultation. Cont to replace low B12. Cont to replace low B1. Refer to ortho post-discharge for advanced L knee OA. Cont Voltaren gel qid for L knee. Cont PT, OT. Deutetrabenazine dose adjustment from 12mg BID to 9mg BID on 12/18/22. Follow to see response from such. (2) Intermittent confusion: Plan: ongoing uncertain if this is toxic encephalopathy from her polypharmacy vs early dementia process from long-standing mental health disorders vs metabolic encephalopathy vs bipolar disorder vs combination of factors MRI brain neg for acute process fortunately no agitation but was up all night and all day today I corresponded with Dr Morton from psychiatry about her severe insomnia and wandering Will increase trazodone to 150mg HS and also add a prn dose of seroquel 50mg if she is still awake 2-3 hours after receiving her HS scheduled meds suspect she is developing a dementia process in the setting of all of her other issues B12 def could contribute B1 could contribute (3) Slurring of speech: Plan: resolved (4) Weakness: Plan: multifactorial cont PT, OT (5) Ambulatory dysfunction: Plan: see above partially from parkinsonism, partially due to advanced OA of L knee, etc. (6) Tardive dyskinesia: Plan: moderate remains on deutetrabenazine + benztropine in ideal world we reduce some of her antipsychotics but we run the risk of worsening bipolar symptoms psych has seen - prefers not to change her psych med regimen at this time After speaking with her son Bennie several times he feels she has done worse on Austedo in comparison to Ingrezza, especially when the dose of Austedo was increased from 9mg BID to 12mg BID He spoke with his sister and they would like to go back to the 9mg dose Made the change from 12mg BID to 9mg BID 12/18/22 (7) Neuroleptic-induced Parkinsonism: Plan: as above (8) Hypothyroidism: Plan: TSH 0.329 - continue levothyroxine (9) Bipolar 1 disorder: Plan: Continue lithium and Seroquel See above discussion re: confusion and increase in trazodone / seroquel (10) Left knee pain: Plan: 2nd advanced OA as seen on knee x-rays voltaren gel qid ortho referral post-d/c (11) B12 deficiency: Plan: s/p 5 IM shots of B12 now transitioned over to PO B12 1000mcg daily cont oral B12 for 6-12 months (12) Osteoarthritis of knee, unspecified: Plan: left knee as above (13) Vitamin B1 deficiency: Plan: level = 6 thiamine 200mg BID x 30 days certainly B1 def can contribute to neuropathy and lead to gait issues in addition to her B12 deficiency Plan son updated by phone this evening (Bennie) social work and son working together to secure additional services for her upon return home (there has been mention of [employer], [facility], etc) can d/c home once extra services are in place AND her medication regimen is stable Admission and Anticipated Discharge Date Admission Date: December 16, 2022 Subjective patient was awake all night per staff and has not slept at all today she is very impulsive, getting up frequently she wandered down the hallway last pm and went into another pt's room during my visit she was sitting in the chair by the window c/o feeling cold I adjusted the temp in room for her she said "I'm ready to go home" she was confused and unable to provide any meaningful history she did deny any pain in any location Physical Exam Physical Exam: gen - tardive dyskinetic movements as previous - tongue movements may be slightly better; NAD, pleasant confusion; no agitation mouth - MMM neck - no JVD heart - RRR, s1 s2, no murmur lungs - CTA b/l abd - soft NT ND BS+ ext - no edema, pulses 2+ b/l Results & Data Results & Data Vital Signs (Past 12 Hours) Vital Signs Temp Pulse Resp BP Pulse Ox O2 Del Method 12/20/22 14:50 37.2 C 56 L 18 92/57 L 97 Room Air Laboratory Results Laboratory Results - last 24 hr 12/16/22 07:41 Vitamin B1 6 L PG Care Time/CCT Total # of Minutes Spent Total Time Spent with Patient: Total time spent is greater than 50% in coordination of care (as documented) at patient's floor/unit and/or counseling patient: Coding Level of Care Code 43949 SUB INP/OBS CARE 2/35MIN Diagnoses Recurrent falls R29.6 Intermittent confusion R41.0 Slurring of speech R47.81 Weakness R53.1 Ambulatory dysfunction R26.2 Tardive dyskinesia G24.01 Neuroleptic-induced Parkinsonism G21.11 Hypothyroidism E03.9 Bipolar 1 disorder F31.9 Left knee pain M25.562 B12 deficiency E53.8 Osteoarthritis of knee, unspecified M17.9 Vitamin B1 deficiency E51.9
[2022-12-20] MEDS: traZODone HCL 50 MG TAB PO SCH (20:38)
[2022-12-21] MEDS: LEVOTHYROXINE SODIUM 75 MCG TABLET PO SCH (06:25)
[2022-12-21] MEDS: PROPRANOLOL HCL 10 MG TAB PO SCH ×2 (07:59→20:15)
[2022-12-21] MEDS: HEPARIN SOD 5,000 UNIT/0.5 ML VIAL SQ SCH ×3 (08:00→20:23)
[2022-12-21] MEDS: THIAMINE HCL 100 MG TAB PO SCH ×2 (08:00→20:17)
[2022-12-21] MEDS: GABAPENTIN 400 MG CAP PO SCH ×2 (08:00→20:16)
[2022-12-21] MEDS: ASPIRIN 81 MG ECTAB PO SCH (08:00)
[2022-12-21] MEDS: QUEtiapine FUMARATE 25 MG TABLET PO SCH (08:00)
[2022-12-21] MEDS: BENZTROPINE MESYLATE 1 MG TAB PO SCH ×2 (08:01→20:16)
[2022-12-21] MEDS: DEUTETRABENAZINE 9 MG PO SCH ×2 (08:01→20:13)
[2022-12-21] MEDS: DICLOFENAC SOD 1% GEL 100 GM TUBE EXT SCH ×4 (08:01→20:16)
[2022-12-21] MEDS: CYANOCOBALAMIN (B-12) 500 MCG TABLET PO SCH (08:01)
--- NOTE | 2022-12-21 08:24 | Hospitalist Progress Note ---
Date of Service December 21, 2022 Assessment & Plan (1) Recurrent falls: Plan: Multifactorial: with neuroleptic-induced parkinsonism, left knee advanced OA, B1 deficiency, possible side effects from Deutetrabenazine. MRI brain this admission negative for acute or subacute stroke. No evidence of any infectious process (+blood culture from several days ago is contaminant as repeat blood cxs off of antibiotics were neg x 5 days). B1 level was low, continue thiamine 200mg daily, to continue on discharge. Continue to replace low B12. PT and OT not recommending skilled level services, but do recommend home therapy. Continue Voltaren gel for LEFt knee OA, with Ortho follow up on discharge. Continue decreased dose of deutetrabenazine 9mg BID. Appreciate neuro and psych consultations this admission. (2) Intermittent confusion: Plan: Ongoing, improved. Suspect this is toxic encephalopathy from polypharmacy vs. neuroleptic-induced parkinsonism and dementia vs. 2/2 mental health disorder. MRI brain negative for acute process. Continue supplementation with B12 and B1. (3) Slurring of speech: Plan: resolved (4) Weakness: Plan: Multifactorial Cont PT, OT on discharge (5) Ambulatory dysfunction: Plan: See above partially from parkinsonism, partially due to advanced OA of L knee, etc. (6) Tardive dyskinesia: Plan: Moderate, remains on deutetrabenazine + benztropine at decreased doses In ideal world we reduce some of her antipsychotics but we run the risk of worsening bipolar symptoms Psych has seen - prefers not to change her psych med regimen at this time, save for can remove extra Seroquel dosing if trazodone continues to help wiht sleep Austedo changed from 12mg BID to 9mg BID 12/18/22 (7) Neuroleptic-induced Parkinsonism: Plan: as above (8) Hypothyroidism: Plan: TSH 0.329 - continue levothyroxine (9) Bipolar 1 disorder: Plan: Continue lithium and Seroquel See above discussion (10) Left knee pain: Plan: 2nd advanced OA as seen on knee x-rays voltaren gel qid ortho referral post-d/c (11) B12 deficiency: Plan: S/p 5 doses of IM B12 Change to PO B12 1000mcg daily Continue thiamine (12) Osteoarthritis of knee, unspecified: Plan: left knee as above Plan Bowel regimen with stool softener and PRN Miralax son updated by phone this weekend social work and son working together to secure additional services for her upon return home (there has been mention of [employer], etc) Admission and Anticipated Discharge Date Admission Date: December 16, 2022 Subjective Patient without acute events overnight. Feeling well and without complaints. Slept well last night. Denies pain, SOB, nausea. No BM x2 days. Physical Exam Constitutional: WD/WN, vitals as above Respiratory: normal respiratory effort, lungs clear to auscultation Cardiovascular: RRR, no murmur, no edema Gastrointestinal (Abdomen): normal bowel sounds, soft, nontender, no hepatosplenomegaly Skin: no rashes, warm and dry Neurologic: tongue movements consistent with tardive dyskinesia at times during interview Psychiatric: A+Ox3, euthymic affect Results & Data Results & Data Vital Signs (Past 12 Hours) Vital Signs Temp Pulse Resp BP Pulse Ox O2 Del Method 12/21/22 07:48 36.9 C 57 L 17 98/63 L 96 Room Air PG Care Time/CCT Total # of Minutes Spent Total Time Spent with Patient: Total time spent is greater than 50% in coordination of care (as documented) at patient's floor/unit and/or counseling patient: Coding Level of Care Code 52078 SUB INP/OBS CARE 2/35MIN Diagnoses Recurrent falls R29.6 Intermittent confusion R41.0 Slurring of speech R47.81 Weakness R53.1 Ambulatory dysfunction R26.2 Tardive dyskinesia G24.01 Neuroleptic-induced Parkinsonism G21.11 Hypothyroidism E03.9 Bipolar 1 disorder F31.9 Left knee pain M25.562 B12 deficiency E53.8 Osteoarthritis of knee, unspecified M17.9
--- NOTE | 2022-12-21 15:21 | Psychiatric Progress Note ---
Date of Service December 21, 2022 Impression / Recommendations Impression Agree with previous assessment per Dr. Jimenez: "62 y/o F with history of schizophrenia and bipolar I disorder admitted with functional decline following medication changes. Her psychiatric symptoms are very well-controlled - this is the best I've seen. She has had marked difficulty tolerating antipsychotic medications (including clozapine and lumateperone) and as a result has had difficulty finding an effective regimen. Her lithium level of 0.7 mmol/L is just below the therapeutic range of 0.8 to 1.2 mmol/L and she maintains that level at an unusually low dose compared to typical 1,200-1,800 mg/day doses. Given the lack of clinically significant mood symptoms there is no reason to increase her dose. Reducing the dose is likely to prevent it from conferring any benefit while still posing a risk of side effects. Clearly, lithium has multiple potential toxicities some of which she may be experiencing. This is a reason to keep her dose as low as possible while maintaining efficacy. However, no other medication is comparably effective for bipolar symptoms. Second-tier options are divalproex, carbamazepine, and lamotrigine. Oxcarbazepine, gabapentin, and topiramate are often used but either have poor evidence of efficacy or clear evidence of lack of efficacy. Third-tier options are all "atypical" antipsychotics (though not all atypical antipsychotics have demonstrated clear efficacy). She has taken nearly all of those at some point. Her current quetiapine dose of 250 mg/day is far below the typical range of 600- 800 mg/day used to treat schizophrenia or bipolar disorder, though it appears to be sufficient to suppress psychosis as well as to contribute to side effects. She might be able to reduce the dose a little, though it's likely she's already very close to her threshold for efficacy. As with lithium, subtherapeutic doses of antipsychotic medications still carry significant side effect risks. It appears as if the identifiable factor with the closest temporal association to her worsening has been a change from valbenazine to deutetrabenazine. It's plausible that this could account for recent functional changes. Since these medications have been being used to treat side effects of other medications (albeit significantly problematic ones), it is especially important to try to ensure that they themselves do not contribute to her burden of adverse effects. Tardive dyskinesia was thought of as essentially untreatable until the jain of such medications, and there may not be any good alternatives." 12/21/2022: Continues to have some confusion, unclear if this is delirium versus start of a worsening cognitive disorder. Agree that her mood is the best I have seen in terms of stability. Would continue with higher dose of trazodone to help with sleep with option for additional seroquel 50mg dose if needed. If sleep continues to be improved would then discontinue additional seroquel dose given goal of lowest dose possible in setting of TD and cognitive changes. (1) Bipolar 1 disorder: (2) Schizophrenia: (3) Tardive dyskinesia: (4) Neuroleptic-induced Parkinsonism: Plan -Increased trazodone to 150mg HS -Additional Seroquel dose of 50mg HS prn if sleep is difficult, would discontinue as sleep normalizes -Could also add melatonin 3mg HS -Continue with delirium prevention measures Interval History Identifying Information ALVARO FRAIRE is a 62-year-old F with a history of schizophrenia and bipolar disorder, admitted on 12/14/2022 for functional decline. Consult is by the hospitalist service for "bipolar, suspect austedo causing worsening func". Chief Complaint "My mood is good". Subjective Subjective Patient was seen & assessed and interval progress reviewed. She reportedly did not sleep much Tuesday into Tuesday night so discussed medication adjustments with Dr. Pena and she appears to have slept well last night after these adjustments. Today reports stable mood and that she slept well. Though she also can't recall not sleeping well the night prior. Confused when asked orientation questions- stated [facility] but couldn't read off [facility] when prompted to look at her water bottle, knew [place] but couldn't recall month or year. Tearful in not being able to recall year as we discussed that she's felt more confused but brightened with other topics. Somewhat loosened associations at times for example asked what helped her sleep well and reported that it was having the tray in her room and the room divider curtain. Physical Exam Psychiatric Orientation: alert, oriented to person, oriented to place and cooperative; + not oriented to time (not month or year) Apperance: appropriately dressed (hospital garb), appropriately groomed and appeared stated age Eye Contact: + fair eye contact TD of mouth with pursing slow, quiet Affect: euthymic affect (with brief tears) euthymic Thought Process: + looseness of associations and + concrete thought process Thought Content: reality based without delusions Suicidal Thoughts: denies suicidal thoughts, denies suicidal plan and denies suicidal intent Homicidal Thoughts: denies homicidal thoughts Hallucinations: no auditory hallucinations and no visual hallucinations Cognition: remote memory grossly intact, attention grossly intact and language grossly intact; + recent memory not intact Estimated Intelligence: average estimated intelligence Insight: + limited insight Judgment: + limited judgement Vital Signs (Past 24 Hours) Last Vital Signs Temp 36.9 C 12/21/22 07:48 Pulse 57 L 12/21/22 07:48 Resp 17 12/21/22 07:48 BP 98/63 L 12/21/22 07:48 Pulse Ox 96 12/21/22 07:48 O2 Del Method Room Air 12/21/22 07:48 Results & Data ([facility]) Current Inpatient Medications Current Inpatient Medications: Current Inpatient Medications Acetaminophen (Acetaminophen 325 Mg Tab) 650 mg PO Q4H PRN PRN Reason: pain/fever Stop: 01/13/23 21:09 Aspirin (Aspirin 81 Mg Ectab) 81 mg PO DAILY [facility] Stop: 01/14/23 08:59 Last Admin: 12/21/22 08:00 Dose: 81 mg Atorvastatin Calcium (Atorvastatin 20 Mg Tab) 20 mg PO HS DONNIE Stop: 01/13/23 21:09 Last Admin: 12/20/22 20:15 Dose: 20 mg Benztropine Mesylate (Benztropine Mesylate 1 Mg Tab) 1 mg PO BID DONNIE Stop: 01/13/23 21:09 Last Admin: 12/21/22 08:01 Dose: 1 mg Cyanocobalamin (Cyanocobalamin (B-12) 500 Mcg Tablet) 1,000 mcg PO QAM DONNIE Stop: 01/20/23 08:59 Last Admin: 12/21/22 08:01 Dose: 1,000 mcg Deutetrabenazine (Deutetrabenazine (Austedo) 9 Mg Tablet) 1 each PO BID DONNIE Stop: 01/17/23 20:59 Last Admin: 12/21/22 08:01 Dose: 1 each Diclofenac Sodium (Diclofenac Sod 1% Gel 100 Gm Tube) 4 gm EXT QID DONNIE; Pr otocol Stop: 01/14/23 20:59 Last Admin: 12/21/22 13:50 Dose: 4 gm Docusate Sodium (Docusate Sodium 100 Mg Cap) 200 mg PO HS DONNIE Stop: 01/13/23 21:09 Last Admin: 12/20/22 20:15 Dose: 200 mg Gabapentin (Gabapentin 400 Mg Cap) 400 mg PO BID DONNIE Stop: 01/13/23 21:09 Last Admin: 12/21/22 08:00 Dose: 400 mg Heparin Sodium (Porcine) (Heparin Sod 5,000 Unit/0.5 Ml Vial) 5,000 units SQ Q12 DONNIE Stop: 01/15/23 20:59 Last Admin: 12/21/22 08:00 Dose: 5,000 units Levothyroxine Sodium (Levothyroxine Sodium 75 Mcg Tablet) 75 mcg PO DAILYBB DONNIE Stop: 01/14/23 06:29 Last Admin: 12/21/22 06:25 Dose: 75 mcg Laughlin Carbonate (Laughlin Carbonate 450 Mg Tabcr) 450 mg PO HS DONNIE Stop: 01/13/23 21:09 Last Admin: 12/20/22 20:16 Dose: 450 mg Propranolol HCl (Propranolol Hcl 10 Mg Tab) 10 mg PO BID DONNIE Stop: 01/13/23 21:09 Last Admin: 12/21/22 07:59 Dose: Not Given Quetiapine Fumarate (Quetiapine Fumarate 200 Mg Tab) 200 mg PO QPM DONNIE Stop: 01/13/23 21:09 Last Admin: 12/20/22 20:16 Dose: 200 mg Quetiapine Fumarate (Quetiapine Fumarate 25 Mg Tablet) 50 mg PO QDB DONNIE Stop: 01/14/23 07:29 Last Admin: 12/21/22 08:00 Dose: 50 mg Quetiapine Fumarate (Quetiapine Fumarate 25 Mg Tablet) 50 mg PO HS PRN PRN Reason: insomnia Stop: 01/19/23 20:59 Thiamine HCl (Thiamine Hcl 100 Mg Tab) 200 mg PO BID DONNIE Stop: 01/15/23 09:44 Last Admin: 12/21/22 08:00 Dose: 200 mg Trazodone HCl (Trazodone Hcl 50 Mg Tab) 150 mg PO HS DONNIE Stop: 01/19/23 20:59 Last Admin: 12/20/22 20:38 Dose: 150 mg
[2022-12-21] MEDS ORDERED: POLYETHYLENE (MIRALAX) 17 GM PACK PO PRN (18:34)
[2022-12-21] MEDS: LITHIUM CARBONATE 450 MG TABCR PO SCH (20:13)
[2022-12-21] MEDS: ATORVASTATIN 20 MG TAB PO SCH (20:14)
[2022-12-21] MEDS: traZODone HCL 50 MG TAB PO SCH (20:15)
[2022-12-21] MEDS: DOCUSATE SODIUM 100 MG CAP PO SCH (20:15)
[2022-12-21] MEDS: QUEtiapine FUMARATE 200 MG TAB PO SCH (20:16)
[2022-12-22] MEDS: LEVOTHYROXINE SODIUM 75 MCG TABLET PO SCH (06:32)
[2022-12-22 08:43] LABS: Hematocrit (blood only) 38.5 % (37.0-47.0); Hemoglobin 12.6 g/dl (12.0-16.0); Mean Corpuscular Hemoglobin 29.9 pg (25.0-34.0); Mean Corpuscular Hgb Conc 32.7 g/dL (32.0-36.0); Mean Corpuscular Volume 91.4 fL (80.0-100.0); Platelet Count 150 K/uL (130-400); RDW Coefficient of Variation 12.3 % (11.5-14.5); RDW Standard Deviation 41.1 fL (36.4-46.3); Red Blood Count 4.21 M/uL (4.20-5.40); White Blood Count 9.18 K/ul (4.8-10.8)
[2022-12-22] MEDS: THIAMINE HCL 100 MG TAB PO SCH ×2 (09:01→20:32)
[2022-12-22] MEDS: PROPRANOLOL HCL 10 MG TAB PO SCH ×2 (09:01→20:37)
[2022-12-22] MEDS: ASPIRIN 81 MG ECTAB PO SCH (09:01)
[2022-12-22] MEDS: CYANOCOBALAMIN (B-12) 500 MCG TABLET PO SCH (09:02)
[2022-12-22] MEDS: GABAPENTIN 400 MG CAP PO SCH ×2 (09:02→20:31)
[2022-12-22] MEDS: QUEtiapine FUMARATE 25 MG TABLET PO SCH (09:02)
[2022-12-22] MEDS: BENZTROPINE MESYLATE 1 MG TAB PO SCH ×2 (09:02→20:31)
[2022-12-22] MEDS: DEUTETRABENAZINE 9 MG PO SCH ×2 (09:03→20:30)
[2022-12-22] MEDS: DICLOFENAC SOD 1% GEL 100 GM TUBE EXT SCH ×4 (09:04→20:37)
[2022-12-22] MEDS: HEPARIN SOD 5,000 UNIT/0.5 ML VIAL SQ SCH ×2 (09:04→20:33)
--- NOTE | 2022-12-22 11:25 | Hospitalist Progress Note ---
Date of Service December 22, 2022 Assessment & Plan (1) Recurrent falls: Plan: Multifactorial: with neuroleptic-induced parkinsonism, left knee advanced OA, B1 deficiency, possible side effects from Deutetrabenazine. MRI brain this admission negative for acute or subacute stroke. No evidence of any infectious process (+blood culture from several days ago is contaminant as repeat blood cxs off of antibiotics were neg x 5 days). B1 level was low, continue thiamine 200mg daily, to continue on discharge. Continue to replace low B12. PT and OT not recommending skilled level services, but do recommend home therapy. Continue Voltaren gel for LEFT knee OA, with Ortho follow up on discharge. Continue decreased dose of deutetrabenazine 9mg BID. Appreciate neuro and psych consultations this admission. Plan for discharge to home tomorrow. (2) Intermittent confusion: Plan: Ongoing, improved. Suspect this is toxic encephalopathy from polypharmacy vs. neuroleptic-induced parkinsonism and dementia vs. 2/2 mental health disorder. MRI brain negative for acute process. Continue supplementation with B12 and B1. (3) Slurring of speech: Plan: resolved (4) Weakness: Plan: Multifactorial Cont PT, OT on discharge (5) Ambulatory dysfunction: Plan: See above partially from parkinsonism, partially due to advanced OA of L knee, etc. (6) Tardive dyskinesia: Plan: Moderate, remains on deutetrabenazine + benztropine at decreased doses In ideal world we reduce some of her antipsychotics but we run the risk of worsening bipolar symptoms Psych has seen - prefers not to change her psych med regimen at this time, save for removing extra Seroquel dose as she is sleeping well Austedo changed from 12mg BID to 9mg BID 12/18/22 (7) Neuroleptic-induced Parkinsonism: Plan: as above (8) Hypothyroidism: Plan: TSH 0.329 - continue levothyroxine (9) Bipolar 1 disorder: Plan: Continue lithium and Seroquel See above discussion (10) Left knee pain: Plan: 2nd advanced OA as seen on knee x-rays voltaren gel qid ortho referral post-d/c (11) B12 deficiency: Plan: S/p 5 doses of IM B12 Change to PO B12 1000mcg daily Continue thiamine (12) Osteoarthritis of knee, unspecified: Plan: left knee as above Plan Bowel regimen with stool softener and PRN Miralax Plan for return home tomorrow Admission and Anticipated Discharge Date Admission Date: December 16, 2022 Subjective No overnight events, slept well. No stated complaints. Review of Systems Review of Systems: All systems reviewed & are unremarkable except as noted in Subjective Physical Exam Constitutional: WD/WN, vitals as above Respiratory: normal respiratory effort, lungs clear to auscultation Cardiovascular: RRR, no murmur, no edema Gastrointestinal (Abdomen): normal bowel sounds, soft, nontender, no hepatosplenomegaly Skin: no rashes, warm and dry Neurologic: tongue movements consistent with tardive dyskinesia at times during interview Psychiatric: A+Ox3, euthymic affect Results & Data Results & Data Vital Signs (Past 12 Hours) Vital Signs Temp Pulse Resp BP Pulse Ox O2 Del Method 12/22/22 08:48 36.9 C 62 15 110/67 95 Room Air PG Care Time/CCT Total # of Minutes Spent Total Time Spent with Patient: Total time spent is greater than 50% in coordination of care (as documented) at patient's floor/unit and/or counseling patient: Coding Level of Care Code 45670 SUB INP/OBS CARE 1/25MIN Diagnoses Recurrent falls R29.6 Intermittent confusion R41.0 Slurring of speech R47.81 Weakness R53.1 Ambulatory dysfunction R26.2 Tardive dyskinesia G24.01 Neuroleptic-induced Parkinsonism G21.11 Hypothyroidism E03.9 Bipolar 1 disorder F31.9 Left knee pain M25.562 B12 deficiency E53.8 Osteoarthritis of knee, unspecified M17.9
[2022-12-22] MEDS: traZODone HCL 50 MG TAB PO SCH (20:31)
[2022-12-22] MEDS: ATORVASTATIN 20 MG TAB PO SCH (20:31)
[2022-12-22] MEDS: QUEtiapine FUMARATE 200 MG TAB PO SCH (20:32)
[2022-12-22] MEDS: LITHIUM CARBONATE 450 MG TABCR PO SCH (20:32)
[2022-12-22] MEDS: DOCUSATE SODIUM 100 MG CAP PO SCH (20:32)
[2022-12-23] MEDS: LEVOTHYROXINE SODIUM 75 MCG TABLET PO SCH (05:41)
[2022-12-23] MEDS: PROPRANOLOL HCL 10 MG TAB PO SCH (07:29)
[2022-12-23] MEDS: QUEtiapine FUMARATE 25 MG TABLET PO SCH (07:29)
[2022-12-23] MEDS: THIAMINE HCL 100 MG TAB PO SCH (07:30)
[2022-12-23] MEDS: GABAPENTIN 400 MG CAP PO SCH (07:30)
[2022-12-23] MEDS: BENZTROPINE MESYLATE 1 MG TAB PO SCH (07:30)
[2022-12-23] MEDS: CYANOCOBALAMIN (B-12) 500 MCG TABLET PO SCH (07:30)
[2022-12-23] MEDS: ASPIRIN 81 MG ECTAB PO SCH (07:30)
[2022-12-23] MEDS: DICLOFENAC SOD 1% GEL 100 GM TUBE EXT SCH (07:31)
[2022-12-23] MEDS: DEUTETRABENAZINE 9 MG PO SCH (07:31)
[2022-12-23] MEDS: HEPARIN SOD 5,000 UNIT/0.5 ML VIAL SQ SCH (07:33)
--- NOTE | 2022-12-23 09:54 | Discharge Summary ---
Discharge Summary Date of Service December 23, 2022 Admission HPI Per Admitting Provider Taniya Waterman is a 62 year old female who presents to the ER after being called back for positive blood cultures. She denies any respiratory, gastrointestinal symptoms. Only urinary symptom of incontinence present but progressively getting worse over the last month. Main concern from her daughter is her functional decline with multiple neurological symptoms progressively getting worse over the last month resulting in recurrent falls for which was the main concern for her ER visit yesterday when the blood cultures were taken and the main reason patient was presented for admission to the medical team today as blood cultures suspected to be a contaminant. These symptoms appear to correlate with the same timeline start about a month ago. Include slurred speech, confusion (leaves hot water running and the stove on), urine incontinence, falls, shuffling gait, feeling cold all the time.Only recent medication change was switching from Ingrezza to Austedo on [11/08] with a dose increase on [12/01]. Her daughter reports this was changed by her psychiatrist due to tardive dyskinesia and has been helpful in that respect. Admission Exam Per Admitting Provider Constitutional: WD/WN, vitals as above Eyes: PERRL, conjunctivae normal, anicteric sclerae ENMT: external ear and nose normal, oropharynx normal Respiratory: normal respiratory effort, lungs clear to auscultation Cardiovascular: RRR, no murmur, no edema Gastrointestinal (Abdomen): normal bowel sounds, soft, nontender, no hepatosplenomegaly Musculoskeletal: no cyanosis or clubbing, extremities motor strength 5/5 Skin: no rashes, warm and dry Neurologic: moves all extremities and awake; not confused Speech / Cognition: normal speech Motor/Sensory: + abnormal movement (dyskinesia on arm movements); no tremor and no pronator drift Bilateral upper arm rigidity on passive movement Psychiatric: Orientation: alert and oriented x 3 Eye Contact: + fair eye contact Motor Behavior: + psychomotor agitation (constant tongue movement consistent of tardive dyskinesia) Speech: normal rate/rhythm/volume of speech Principal Dx & Hospital Course #1 = Principal Diagnosis (1) Recurrent falls: Multifactorial: with neuroleptic-induced parkinsonism, left knee advanced OA, B1 deficiency, possible side effects from Deutetrabenazine. MRI brain this admission negative for acute or subacute stroke. No evidence of any infectious process (+blood culture from several days ago is contaminant as repeat blood cxs off of antibiotics were neg x 5 days). B1 level was low, continue thiamine 200mg daily, to continue on discharge. Continue to replace low B12. PT and OT not recommending skilled level services, but do recommend home therapy. Continue Voltaren gel for LEFT knee OA, with Ortho follow up on discharge. Continue decreased dose of deutetrabenazine 9mg BID. Appreciate neuro and psych consultations this admission. Plan for discharge to home tomorrow. (2) Intermittent confusion: Ongoing, improved. Suspect this is toxic encephalopathy from polypharmacy vs. neuroleptic-induced parkinsonism and dementia vs. 2/2 mental health disorder. MRI brain negative for acute process. Continue supplementation with B12 and B1. (3) Slurring of speech: resolved (4) Weakness: Multifactorial Cont PT, OT on discharge (5) Ambulatory dysfunction: See above Partially from parkinsonism, partially due to advanced OA of L knee, etc. (6) Tardive dyskinesia: Moderate, remains on deutetrabenazine + benztropine at decreased doses In ideal world we reduce some of her antipsychotics but we run the risk of worsening bipolar symptoms Psych has seen - prefers not to change her psych med regimen at this time, save for removing extra Seroquel dose as she is sleeping well Austedo changed from 12mg BID to 9mg BID, to continue on discharge (7) Neuroleptic-induced Parkinsonism: as above, follow-up with neurology/psychiatry (8) Hypothyroidism: TSH 0.329 - continue levothyroxine (9) Bipolar 1 disorder: Continue lithium and Seroquel See above discussion (10) Left knee pain: 2nd advanced OA as seen on knee x-rays voltaren gel qid ortho referral post-d/c (11) B12 deficiency: S/p 5 doses of IM B12 Continue PO B12 1000mcg daily Continue thiamine (12) Osteoarthritis of knee, unspecified: left knee as above Plan Bowel regimen with stool softener and PRN Miralax Plan for return home today with care per son Discharge Exam Constitutional WD/WN, vitals as above Neurologic Tardive dyskinesia Psychiatric A+Ox3, euthymic affect Updated Medication List Medication Instructions Recorded Confirmed Type atorvastatin 20 mg tablet (Lipitor) 20 mg PO HS #30 tabs 01/09/21 12/14/22 Rx docusate sodium 100 mg capsule 100 - 200 mg PO HS 02/08/22 12/14/22 History (Colace) aspirin 81 mg tablet,delayed 81 mg PO DAILY 11/19/22 12/14/22 History release benztropine 1 mg tablet 1 mg PO AMPM 11/19/22 12/14/22 History gabapentin 400 mg capsule 400 mg PO BID 11/19/22 12/14/22 History levothyroxine 75 mcg tablet 75 mcg PO QAM 11/19/22 12/14/22 History lithium carbonate 450 mg 450 mg PO HS 11/19/22 12/14/22 History tablet,extended release propranolol 10 mg tablet 10 mg PO BID 11/19/22 12/14/22 History quetiapine 200 mg tablet 200 mg PO QPM 11/19/22 12/14/22 History quetiapine 50 mg tablet 50 mg PO QAM 11/19/22 12/14/22 History deutetrabenazine 9 mg tablet 9 mg PO BID 30 days #60 tabs 12/23/22 Rx (Austedo) thiamine HCl (vitamin B1) 100 mg 100 mg PO BID 30 days #60 tabs 12/23/22 Rx tablet trazodone 100 mg tablet 150 mg PO HS 30 days #45 tabs 12/23/22 Rx Hospital Stay Data Consultations 12/14/22 16:37 ED Decision to Admit Stat 12/14/22 21:10 Consult Neurology Routine Consult Psychiatry Routine Diagnostic Imagining Performed 12/14/22 17:17 MRI Brain [MR brain wo/w con] Routine Discharge Instructions Given to Patient (Per Discharging Provider) You were admitted for evaluation and management of confusion and falls. It is a difficult balance, between medications for your bipolar disorder, and medications for the treatment of symptoms of those medications. We believe that a long standing history of bipolar disorder and treatment has some part in a developing dementia. We decreased your dose of deutetrabenazine (Austedo) this admission to 9 milligrams twice daily. You were noted to have vitamin B1 and B12 deficiency; these things can also cause balance and memory problems. You were sent vitamins for these to the pharmacy. We also adjusted your trazodone dosing for sleep. We recommend 24 hour care for monitoring to prevent falls and help with medications. Total Time Total Time Spent Total Time Spent (In Minutes): 30-minute Coding Level of Care Code 40893 IN/OBS DISCH 30 MIN/LESS Diagnoses Recurrent falls R29.6 Intermittent confusion R41.0 Slurring of speech R47.81 Weakness R53.1 Ambulatory dysfunction R26.2 Tardive dyskinesia G24.01 Neuroleptic-induced Parkinsonism G21.11 Hypothyroidism E03.9 Bipolar 1 disorder F31.9 Left knee pain M25.562 B12 deficiency E53.8 Osteoarthritis of knee, unspecified M17.9
== END 2022-12-23 12:07 | disposition home health service (06) | DRG 56 ==
LOC: 3N 11:00 → ED 11:00 → SUATTDRO 17:41 → 3N 20:38 → SUATTDRO 12-16 14:49

== ENCOUNTER 2023-01-05 11:28 | Inpatient (IN) ==
[2023-01-05 12:06] LABS: Appearance Urine Clear (Clear); Bacteria Urine Automated Negative (Negative); Bilirubin Urine Negative (Negative); Blood Urine Negative (Negative); Color Urine Yellow; Epithelial Cell Urine Auto >30 /lpf (0-5); Glucose Urine UA Negative (Negative); Ketones Urine Negative (Negative); Leukocyte Esterase Urine 2+ (Negative); Nitrite Urine Negative (Negative); Protein Urine Negative (Negative); RBC Urine Automated 0-4 /hpf (0-4); Specific Gravity Urine 1.011 (1.000-1.030); Urobilinogen Urine Negative (Negative); pH Urine 6.5 (4.5-7.5)
[2023-01-05 12:08] LABS: Basophils # (auto) 0.05 K/uL (0.00-0.20); Basophils % (auto) 0.5 %; Eosinophils # (auto) 0.58 K/uL (0.00-0.50); Eosinophils % (auto) 6.3 %; Hematocrit (blood only) 43.5 % (37.0-47.0); Hemoglobin 14.2 g/dl (12.0-16.0); Immature Granulocytes # (auto) 0.14 K/uL (0.01-0.20); Immature Granulocytes % (auto) 1.5 %; Lymphocytes # (auto) 1.49 K/uL (1.20-3.40); Lymphocytes % (auto) 16.3 %; Mean Corpuscular Hemoglobin 30.3 pg (25.0-34.0); Mean Corpuscular Hgb Conc 32.6 g/dL (32.0-36.0); Mean Corpuscular Volume 92.8 fL (80.0-100.0); Mean Platelet Volume 11.1 fL (9.4-12.4); Monocytes # (auto) 0.48 K/uL (0.11-0.59); Monocytes % (auto) 5.2 %; Neutrophils # (auto) 6.41 K/uL (1.40-6.50); Neutrophils % (auto) 70.2 %; Platelet Count 197 K/uL (130-400); RDW Coefficient of Variation 12.4 % (11.5-14.5); RDW Standard Deviation 42.3 fL (36.4-46.3); Red Blood Count 4.69 M/uL (4.20-5.40); White Blood Count 9.15 K/ul (4.8-10.8)
[2023-01-05 12:27] LABS: Potassium 4.1 mmol/L (3.5-5.1)
[2023-01-05 12:28] LABS: Albumin Globulin Ratio 1.6 (0.9-2); Albumin Level 4.6 gm/dl (3.4-5.0); Calcium 10.4 mg/dl (8.6-10.3); Creatinine Clr Calc Pharmacy 45.6 ml/min; Est GFR (African American) 74.3 ml/min; Est GFR (Non-African American) 64.1 ml/min; Globulin 2.8 gm/dl (2.5-4.0); Total Protein 7.4 gm/dl (6.0-8.3)
--- NOTE | 2023-01-05 12:43 | Emergency Department Note ---
Impression & Plan Ambulatory dysfunction ADMIT ED Provider Note HPI: The patient is a 62-year-old female with history of schizophrenia, bipolar disorder, tardive dyskinesia, neuroleptic induced parkinsonism, presents emergency department with her disease case manager rn from [facility] at the bedside over concern for increasing confusion. central supply manager at the bedside states that the patient has been exhibiting some increasing confusion, she has not been able to recollect the names of her hospice case manager recently, she has been under treatment for urinary tract infection and they had concern that this possibly could be the source for declining cognition. central supply manager does states that this has been occurring more frequently over about the past 6 weeks. Patient did have a recent inpatient admission that included psychiatric and neurology consultations for similar symptoms. On arrival here to the ED the patient is alert, she is oriented to place but not the year, she is unable to tell me how old she is. She is able to follow commands appropriately, she does not have any focal deficits on arrival. ROS: - Per HPI Differential Diagnosis: Acute on chronic cognitive decline, hemorrhagic stroke, brain mass, ischemic stroke, sepsis/urinary tract infection, medication reactions, progression of schizophrenia, progression of neuroleptic induced parkinsonism with ambulatory dysfunction, amongst other potential pathologies. *Outpatient medications and allergy history reviewed. *Pertinent external medical records reviewed. PE: General: Alert HEENT: Normocephalic, trachea midline, dyskinesia movements of the tongue and mouth are noted Eyes: Extraocular eye movement is intact, no scleral erythema Pulmonary: Clear to auscultation bilaterally, no wheezing Cardio: Regular rate and rhythm GI: Abdomen is soft to palpation : No suprapubic tenderness MSK: No evidence of trauma or malformation of the extremities, no edema Skin: No evidence of rash Neuro: Alert, no focal deficits Psychiatric: Cooperative metal tube cutter: (As interpreted by myself): - An order was placed for continuous cardiac monitoring - Patient was noted to be in sinus rhythm with a rate of 58 EKG: (As interpreted by myself): Rate: 52 Rhythm: Sinus bradycardia Intervals: Within normal limits ST changes: No ST elevation Time: 1158 Medical Decision Making: Patient presented to the emergency department with progressive decline at home. According to her disease case manager rn at the bedside and later nancy egan RN also at the bedside, patient has been having ambulatory dysfunction, forgetfulness, she has been leaving appliances on at home including the stove. Her family has exhibited concerns about her safety at home. Shortly after the patient arrived medical work-up was initiated, IV was established and lab work ordered. Lab work shows no leukocytosis, hemoglobin is normal, platelet count is normal, CMP does not show any critical findings, CT imaging of the head does not show any evidence of acute intracranial process, urinalysis is nonspecific, there is 2+ leukocyte Estrace and mild pyuria but the sample is contaminated and nitrite is negative. Overall the patient has been on Cipro for UTI, I have low suspicion that UTI is the source of any of her s ymptoms recently. On my reevaluation, disease case manager rn and RN from [employer] again and note concerns that the patient is not safe for discharge home. I did discuss this with the patient's son on the phone, Bennie, and he also reflects this concern and states that the patient is a danger to herself at home as she is home for long stretches of the day by herself. She has been having falls and exhibiting confusion. The patient's who I later contacted on the phone, Jaquan Ortizer, also expresses concern that the patient is not currently safe to be at home and he is unable to acquire adequate help to watch her while she is at home during the day. Ultimately, patient seems to be exhibiting some symptoms of either progressive psychiatric or neurologic decline. It is unclear to me how much of this could be induced by medications however I do feel the patient would benefit from admission for reevaluation of her medications, possibly neuro and psychiatric consultations and PT/OT consultation as ultimately the patient will be unable to be at home by herself or any stretch of time given her failure after recent discharge from her inpatient stay here at the hospital. I discussed all the above findings with case management and with the hospitalist service, discussed with Dr. Radford, he will evaluate the patient for admission and the patient was placed for admission in stable condition. I did also discuss the above plan with the patient's community service patrol officer from [employer] and the patient on my reevaluation. They both expressed an understanding. Consultants: - Case management - Hospitalist service, Dr. Radford Disposition discussion held by myself with: - Patient, Son (Bennie) on the phone, (Jaquan) on the phone Diagnosis: 1. Ambulatory dysfunction, acute on chronic 2. Acute on chronic memory impairment 3. History of schizophrenia 4. History of neuroleptic induced Parkinson Disease 5. Social / safety concern, patient is unsafe alone at home Disposition: ADMIT Josep Damon DO Emergency Medicine Past Med/Surg History Medical History (Updated 01/05/23 @ 16:49 by Josep Damon DO) Ambulatory dysfunction Bipolar 1 disorder Chronic diarrhea of unknown origin Cogwheel rigidity Constipation Decubitus ulcer, heel DVT prophylaxis Dystonic drug reaction Falling Fever Healthcare maintenance History of anesthesia reaction difficulty waking History of colon polyps Hyperlipidemia Hyperplastic colon polyp Insomnia Lung nodule Memory changes Neuroleptic malignant syndrome Observed seizure-like activity Psychosis Renal lesion Schizophrenia by history Suicidal ideation Tardive dyskinesia UTI (urinary tract infection) Weakness Surgical History History of colonoscopy with polypectomy History of conization of cervix History of cervical conization by laser History of dilation and curettage History of foot surgery x2--right--no hardware History of hysteroscopy History of right oophorectomy History of tooth extraction all upper teeth History of tubal ligation Family History Father Type 2 diabetes mellitus Family hx colonic polyps Brother Type 2 diabetes mellitus Sister Parathyroid disorder Brother Type 2 diabetes mellitus Other No family history of adverse response to anesthesia Social History Smoking Status: Never smoker Second Hand Exposure: No; Do You Dip or Chew Tobacco: No; Hx Alcohol Use: No Hx Substance Use: No Preferred Language: Faroese Communication Ability: Effective Communication Ability Comment: patient often talks to fast, when asked to repeat - easier to understand Waiter/Waitress First Class Required: No Beliefs That Will Affect Care: None marital status: Current Living Situation: Spouse current occupational status: unemployed 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 Feels Safe at Home: Yes Gender Identity: Female Assistive Devices: Cane Allergies Allergies Allergy/AdvReac Type Severity Reaction Status Date / Time Penicillins Allergy Intermediate Rash Verified 11/19/22 15:20 Home Meds Home Medications Medication Instructions Recorded Confirmed docusate sodium 100 mg capsule 100 - 200 mg PO HS 02/08/22 01/05/23 (Colace) aspirin 81 mg tablet,delayed 81 mg PO DAILY 11/19/22 01/05/23 release benztropine 1 mg tablet 1 mg PO AMPM 11/19/22 01/05/23 gabapentin 400 mg capsule 400 mg PO AMHS 11/19/22 01/05/23 levothyroxine 75 mcg tablet 75 mcg PO QAM 11/19/22 01/05/23 lithium carbonate 450 mg 450 mg PO HS 11/19/22 01/05/23 tablet,extended release propranolol 10 mg tablet 10 mg PO BID 11/19/22 01/05/23 quetiapine 200 mg tablet 200 mg PO QPM 11/19/22 01/05/23 quetiapine 50 mg tablet 50 mg PO QAM 11/19/22 01/05/23 ciprofloxacin HCl 250 mg tablet 250 mg PO BID 01/05/23 01/05/23 Previous Rx's Medication Instructions Recorded atorvastatin 20 mg tablet (Lipitor) 20 mg PO HS #30 tabs 01/09/21 deutetrabenazine 9 mg tablet 9 mg PO BID 30 days #60 tabs 12/23/22 (Austedo) thiamine HCl (vitamin B1) 100 mg 100 mg PO BID 30 days #60 tabs 12/23/22 tablet trazodone 100 mg tablet 150 mg PO HS 30 days #45 tabs 12/23/22 Results & Data (ED) Vital Signs Vital Signs - 24 hr 01/05/23 11:37 01/05/23 12:29 01/05/23 13:00 Temperature 36.2 C L Temperature Source Temporal Artery Scan Pulse Rate 55 L Pulse Rate [Right Finger] 50 L Respiratory Rate 17 18 Respiratory Depth Blood Pressure 103/70 Blood Pressure [Right Arm] 112/72 Blood Pressure Mean 81 Blood Pressure Mean [Right Arm] 85 Pulse Oximetry 98 99 Oxygen Delivery Method Room Air Room Air Room Air Sepsis Recent Fever Within 48 Hours No Sepsis New/Unexplained Change in Mental Status N/A Sepsis Action Taken by Nursing No Action Required 01/05/23 14:39 01/05/23 16:20 Temperature Temperature Source Pulse Rate Pulse Rate [Right Finger] 53 L 54 L Respiratory Rate 18 18 Respiratory Depth Normal Blood Pressure Blood Pressure [Right Arm] 94/66 L 103/66 Blood Pressure Mean Blood Pressure Mean [Right Arm] 75 78 Pulse Oximetry 99 98 Oxygen Delivery Method Room Air Room Air Sepsis Recent Fever Within 48 Hours Sepsis New/Unexplained Change in Mental Status Sepsis Action Taken by Nursing Laboratory Data 01/05/23 11:50 01/05/23 11:50 Lab Results 01/05/23 01/05/23 01/05/23 Range/Units 11:10 11:50 11:50 WBC 9.15 (4.8-10.8) K/ul RBC 4.69 (4.20-5.40) M/uL Hgb 14.2 (12.0-16.0) g/dl Hct 43.5 (37.0-47.0) % MCV 92.8 (80.0-100.0) fL MCH 30.3 (25.0-34.0) pg MCHC 32.6 (32.0-36.0) g/dL RDW Std Deviation 42.3 (36.4-46.3) fL RDW Coeff of Zakiya 12.4 (11.5-14.5) % Plt Count 197 (130-400) K/uL MPV 11.1 (9.4-12.4) fL Immature Gran % (Auto) 1.5 % Neut % (Auto) 70.2 % Lymph % (Auto) 16.3 % [place] % (Auto) 5.2 % Eos % (Auto) 6.3 % Baso % (Auto) 0.5 % Neut # (Auto) 6.41 (1.40-6.50) K/uL Lymph # (Auto) 1.49 (1.20-3.40) K/uL [place] # (Auto) 0.48 (0.11-0.59) K/uL Eos # (Auto) 0.58 H (0.00-0.50) K/uL Baso # (Auto) 0.05 (0.00-0.20) K/uL Immature Gran # (Auto) 0.14 (0.01-0.20) K/uL Sodium 138 (136-145) mmol/L Potassium 4.1 (3.5-5.1) mmol/L Chloride 104 (98-107) mmol/L Carbon Dioxide 29 (21-32) mmol/L Anion Gap 5 (3-11) BUN 15 (6-23) mg/dl Creatinine 0.94 (0.6-1.2) mg/dl Est Cr Clr Drug Dosing 45.6 ml/min Est GFR ( Amer) 74.3 ml/min Est GFR (Non-Af Amer) 64.1 ml/min BUN/Creatinine Ratio 16.0 (10-20) Glucose 102 H (70-99(Fasting)) mg/dl Calcium 10.4 H (8.6-10.3) mg/dl Total Bilirubin 1.0 (0.2-1.0) mg/dl AST 16 (13-39) U/L ALT 16 (7-52) U/L Alkaline Phosphatase 96 (34-104) U/L Total Protein 7.4 (6.0-8.3) gm/dl Albumin 4.6 (3.4-5.0) gm/dl Globulin 2.8 (2.5-4.0) gm/dl Albumin/Globulin Ratio 1.6 (0.9-2) Urine Color Urine Appearance (Clear) Urine pH (4.5-7.5) Ur Specific [place] (1.000-1.030) Urine Protein (Negative) Urine Glucose (UA) (Negative) Urine Ketones (Negative) Urine Blood (Negative) Urine Nitrite (Negative) Urine Bilirubin (Negative) Urine Urobilinogen (Negative) Ur Leukocyte Esterase (Negative) Urine WBC (Auto) (0-5) /hpf Urine RBC (Auto) (0-4) /hpf U Hyaline Cast (Auto) (0-5) /lpf U Epithel Cells (Auto) (0-5) /lpf Urine Bacteria (Auto) (Negative) [place] 0.8 (0.6-1.2) mmol/L 01/05/23 Range/Units Unknown WBC (4.8-10.8) K/ul RBC (4.20-5.40) M/uL Hgb (12.0-16.0) g/dl Hct (37.0-47.0) % MCV (80.0-100.0) fL MCH (25.0-34.0) pg MCHC (32.0-36.0) g/dL RDW Std Deviation (36.4-46.3) fL RDW Coeff of Zakiya (11.5-14.5) % Plt Count (130-400) K/uL MPV (9.4-12.4) fL Immature Gran % (Auto) % Neut % (Auto) % Lymph % (Auto) % [place] % (Auto) % Eos % (Auto) % Baso % (Auto) % Neut # (Auto) (1.40-6.50) K/uL Lymph # (Auto) (1.20-3.40) K/uL [place] # (Auto) (0.11-0.59) K/uL Eos # (Auto) (0.00-0.50) K/uL Baso # (Auto) (0.00-0.20) K/uL Immature Gran # (Auto) (0.01-0.20) K/uL Sodium (136-145) mmol/L Potassium (3.5-5.1) mmol/L Chloride (98-107) mmol/L Carbon Dioxide (21-32) mmol/L Anion Gap (3-11) BUN (6-23) mg/dl Creatinine (0.6-1.2) mg/dl Est Cr Clr Drug Dosing ml/min Est GFR ( Amer) ml/min Est GFR (Non-Af Amer) ml/min BUN/Creatinine Ratio (10-20) Glucose (70-99(Fasting)) mg/dl Calcium (8.6-10.3) mg/dl Total Bilirubin (0.2-1.0) mg/dl AST (13-39) U/L ALT (7-52) U/L Alkaline Phosphatase (34-104) U/L Total Protein (6.0-8.3) gm/dl Albumin (3.4-5.0) gm/dl Globulin (2.5-4.0) gm/dl Albumin/Globulin Ratio (0.9-2) Urine Color Yellow Urine Appearance Clear (Clear) Urine pH 6.5 (4.5-7.5) Ur Specific [place] 1.011 (1.000-1.030) Urine Protein Negative (Negative) Urine Glucose (UA) Negative (Negative) Urine Ketones Negative (Negative) Urine Blood Negative (Negative) Urine Nitrite Negative (Negative) Urine Bilirubin Negative (Negative) Urine Urobilinogen Negative (Negative) Ur Leukocyte Esterase 2+ H (Negative) Urine WBC (Auto) 10-30 H (0-5) /hpf Urine RBC (Auto) 0-4 (0-4) /hpf U Hyaline Cast (Auto) 1-5 (0-5) /lpf U Epithel Cells (Auto) >30 H (0-5) /lpf Urine Bacteria (Auto) Negative (Negative) [place] (0.6-1.2) mmol/L Imaging Data Radiologist's Impression: Head CT 01/05/23 12:41 CT head/brain wo con CLINICAL HISTORY: 62 years-old Female with AMS. Acutely altered mental status TECHNIQUE: Multiple axial CT images of the head were obtained without contrast. A dose lowering technique was utilized adhering to the principles of ALARA. CT DOSE: 547.75 mGy.cm COMPARISON: 12/07/2022, 12/14/2022 FINDINGS: No acute intracranial hemorrhage, midline shift, intracranial mass, hydrocephalus, territorial ischemia or abnormal extra-axial collection. The calvarium is intact. The paranasal sinuses, mastoid air cells, and middle ear cavities are clear. IMPRESSION: No acute intracranial abnormality. ACT 112: Negative or not required by law. The above report was generated using voice recognition software. It may contain grammatical, syntax or spelling errors. Electronically signed by: Damon Medrano M.D. 01/05/2023 2:13 PM Discharge Plan Visit Data Chief Complaint: Altered Mental Status Stated Complaint: CONFUSION INCREASED, UTI SYMPTOMS ED Provider: Josep Damon Discharge Problem: Ambulatory dysfunction Forms Stand Alone Forms: My [facility] Prescriptions Prescriptions: No Action quetiapine 200 mg tablet 200 mg PO QPM aspirin 81 mg Tablet,Delayed Release (Dr/Ec) 81 mg PO DAILY lithium carbonate 450 mg tablet extended release 450 mg PO HS levothyroxine 75 mcg tablet 75 mcg PO QAM propranolol 10 mg tablet 10 mg PO BID benztropine 1 mg tablet 1 mg PO AMPM quetiapine 50 mg tablet 50 mg PO QAM Rx Instructions: Take with breakfast gabapentin 400 mg capsule 400 mg PO AMHS atorvastatin [Lipitor] 20 mg tablet 20 mg PO HS Qty: 30 0RF docusate sodium [Colace] 100 mg capsule 100 - 200 mg PO HS thiamine HCl (vitamin B1) 100 mg Tablet 100 mg PO BID 30 Days Qty: 60 0RF trazodone 100 mg tablet 150 mg PO HS 30 Days Qty: 45 0RF Austedo 9 mg tablet 9 mg PO BID 30 Days Qty: 60 0RF ciprofloxacin HCl 250 mg tablet 250 mg PO BID Rx Instructions: pt not compliant with taking Referrals Referrals: Sonja Separs, [Primary Care Provider] -
--- NOTE | 2023-01-05 14:15 | CT Scan Report ---
CT head/brain wo con CLINICAL HISTORY: 62 years-old Female with AMS. Acutely altered mental status TECHNIQUE: Multiple axial CT images of the head were obtained without contrast. A dose lowering tech nique was utilized adhering to the principles of ALARA. CT DOSE: 547.75 mGy.cm COMPARISON: 12/07/2022, 12/14/2022 FINDINGS: No acute intracranial hemorrhage, midline shift, intracranial mass, hydrocephalus, territorial ischem ia or abnormal extra-axial collection. The calvarium is intact. The paranasal sinuses, mastoid air cells, and middle ear cavities are clear . IMPRESSION: No acute intracranial abnormality. ACT 112: Negative or not required by law. The above report was generated using voice recognition software. It may contain grammatical, syntax o r spelling errors. Electronically signed by: Damon Medrano M.D. 01/05/2023 2:13 PM
--- NOTE | 2023-01-05 16:33 | History & Physical Report ---
Date of Service January 05, 2023 Assessment & Plan (1) Ambulatory dysfunction: Plan: Essentially no large change since last admission although now POA (her son with her dependency case manager feel she is unsafe in her current living circumstances. Plan to discuss with dependency case manager for 24 hour care vs. placement (2) Bipolar 1 disorder: Plan: Continue her routine medications (3) Vitamin B1 deficiency: (4) B12 deficiency: (5) Schizophrenia: (6) Tardive dyskinesia: (7) Recurrent falls: (8) Hypothyroidism: (9) Neuroleptic-induced Parkinsonism: (10) Esophageal reflux: Plan VTE Prophylaxis - low risk Diet - regular Disposition - observation status to med/surg History of Present Illness Primary Care Provider: DO Taniya Enrique Guevara is a 62 year old female who presents to the ER with frequent falls, urine incontinence, short term memory problems. Patient reports no problems. Longstanding problems reported by her outpatient case operator and confirmed by her son who is her POA over the phone. Similar symptoms since December admission although her urine incontinence appears to be new. Main concern is her leaving the stove on in the house and her frequent falls. Seen by neurology and psychiatry last admission and medications optimized recently. Son and case operator no longer feel she is safe at home and feel she needs rat exterminator placement vs. possible 24/ care which is unable to be arranged from the emergency room. Allergies Allergy/AdvReac Type Severity Reaction Status Date / Time Penicillins Allergy Intermediate Rash Verified 11/19/22 15:20 Home Medications Medication Instructions Recorded Confirmed Type atorvastatin 20 mg tablet (Lipitor) 20 mg PO HS #30 tabs 01/09/21 01/05/23 Rx docusate sodium 100 mg capsule 100 - 200 mg PO HS 02/08/22 01/05/23 History (Colace) aspirin 81 mg tablet,delayed 81 mg PO DAILY 11/19/22 01/05/23 History release benztropine 1 mg tablet 1 mg PO AMPM 11/19/22 01/05/23 History gabapentin 400 mg capsule 400 mg PO AMHS 11/19/22 01/05/23 History levothyroxine 75 mcg tablet 75 mcg PO QAM 11/19/22 01/05/23 History lithium carbonate 450 mg 450 mg PO HS 11/19/22 01/05/23 History tablet,extended release propranolol 10 mg tablet 10 mg PO BID 11/19/22 01/05/23 History quetiapine 200 mg tablet 200 mg PO QPM 11/19/22 01/05/23 History quetiapine 50 mg tablet 50 mg PO QAM 11/19/22 01/05/23 History deutetrabenazine 9 mg tablet 9 mg PO BID 30 days #60 tabs 12/23/22 01/05/23 Rx (Austedo) thiamine HCl (vitamin B1) 100 mg 100 mg PO BID 30 days #60 tabs 12/23/22 01/05/23 Rx tablet trazodone 100 mg tablet 150 mg PO HS 30 days #45 tabs 12/23/22 01/05/23 Rx ciprofloxacin HCl 250 mg tablet 250 mg PO BID 01/05/23 01/05/23 History Past Med/Surg History Medical History (Updated 01/05/23 @ 16:49 by Josep Damon DO) Ambulatory dysfunction Bipolar 1 disorder Chronic diarrhea of unknown origin Cogwheel rigidity Constipation Decubitus ulcer, heel DVT prophylaxis Dystonic drug reaction Falling Fever Healthcare maintenance History of anesthesia reaction difficulty waking History of colon polyps Hyperlipidemia Hyperplastic colon polyp Insomnia Lung nodule Memory changes Neuroleptic malignant syndrome Observed seizure-like activity Psychosis Renal lesion Schizophrenia by history Suicidal ideation Tardive dyskinesia UTI (urinary tract infection) Weakness Surgical History History of colonoscopy with polypectomy History of conization of cervix History of cervical conization by laser History of dilation and curettage History of foot surgery x2--right--no hardware History of hysteroscopy History of right oophorectomy History of tooth extraction all upper teeth History of tubal ligation Family History Father Type 2 diabetes mellitus Family hx colonic polyps Brother Type 2 diabetes mellitus Sister Parathyroid disorder Brother Type 2 diabetes mellitus Other No family history of adverse response to anesthesia Social History Smoking Status: Never smoker Second Hand Exposure: No; Do You Dip or Chew Tobacco: No; Hx Alcohol Use: No Hx Substance Use: No Preferred Language: Nepali Communication Ability: Impaired Communication Ability Comment: patient often talks to fast, when asked to repeat - easier to understand Brick Veneer Maker Required: No Beliefs That Will Affect Care: None marital status: Current Living Situation: Spouse current occupational status: unemployed 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 Feels Safe at Home: Yes Gender Identity: Female Assistive Devices: Walker Review of Systems Review of Systems: All systems reviewed & are unremarkable except as noted in HPI & below Physical Exam Constitutional: WD/WN, vitals as above ENMT: external ear and nose normal, oropharynx normal Respiratory: normal respiratory effort, lungs clear to auscultation Cardiovascular: RRR, no murmur, no edema Gastrointestinal (Abdomen): normal bowel sounds, soft, nontender, no hepatosplenomegaly Neurologic: moves all extremities and awake; not confused Tardive dyskinesia movements of her tongue Results & Data Results & Data Vital Signs (Past 12 Hours) Vital Signs Temp Pulse Pulse Resp BP BP Pulse Ox 01/05/23 16:20 54 L 18 103/66 98 01/05/23 14:39 53 L 18 94/66 L 99 01/05/23 13:00 50 L 18 112/72 99 01/05/23 12:29 01/05/23 11:37 36.2 C L 55 L 17 103/70 98 O2 Del Method 01/05/23 16:20 Room Air 01/05/23 14:39 Room Air 01/05/23 13:00 Room Air 01/05/23 12:29 Room Air 01/05/23 11:37 Room Air Laboratory Results Abnormal lab results 01/05/23 01/05/23 01/05/23 Range/Units 11:50 11:50 Unknown Eos # (Auto) 0.58 H (0.00-0.50) K/uL Glucose 102 H (70-99(Fasting)) mg/dl Calcium 10.4 H (8.6-10.3) mg/dl Ur Leukocyte Esterase 2+ H (Negative) Urine WBC (Auto) 10-30 H (0-5) /hpf U Epithel Cells (Auto) >30 H (0-5) /lpf Diagnostic Findings CT head/brain wo con CLINICAL HISTORY: 62 years-old Female with AMS. Acutely altered mental status TECHNIQUE: Multiple axial CT images of the head were obtained without contrast. A dose lowering technique was utilized adhering to the principles of ALARA. CT DOSE: 547.75 mGy.cm COMPARISON: 12/07/2022, 12/14/2022 FINDINGS: No acute intracranial hemorrhage, midline shift, intracranial mass, hydrocephalus, territorial ischemia or abnormal extra-axial collection. The calvarium is intact. The paranasal sinuses, mastoid air cells, and middle ear cavities are clear. IMPRESSION: No acute intracranial abnormality. Medications Administered ER Medications Given: None ECG Rate (beats per minute): 52 Rhythm: sinus bradycardia Findings: no acute ischemic change Comparison ECG Date: from (December 14, 2022) Change: no significant change Code Status & VTE Plan Code Status Full VTE Prophylaxis Plan VTE Prophylaxis will be ordered: No PG Care Time/CCT Total # of Minutes Spent Total Time Spent with Patient: Total time spent is greater than 50% in coordination of care (as documented) at patient's floor/unit and/or counseling patient: Coding Level of Care Code 50507 INT INP/OBS CARE 140MIN Diagnoses Ambulatory dysfunction R26.2 Bipolar 1 disorder F31.9 Vitamin B1 deficiency E51.9 B12 deficiency E53.8 Schizophrenia F20.9 Tardive dyskinesia G24.01 Recurrent falls R29.6 Hypothyroidism E03.9 Neuroleptic-induced Parkinsonism G21.11 Esophageal reflux K21.9
--- NOTE | 2023-01-05 16:42 | XRay Report ---
XR chest 1V portable HISTORY: Altered mental status. COMPARISON: Chest 12/14/2022. FINDINGS: No pneumothorax. Blunting of the left lateral costophrenic sulcus there is a trace left ple ural effusions. There are small patchy density at the left lung base. The right lung is clear. The he art is borderline enlarged. This may be accentuated by the low lung volumes. IMPRESSION: Trace left pleural effusion with small patchy left basilar densities. This may represent atelectasis or a pneumonia. ACT 112: Negative or not required by law. Electronically signed by: True Iverson M.D. 01/05/2023 4:41 PM
--- NOTE | 2023-01-05 18:20 | Electrocardiogram Report ---
Test Reason : Blood Pressure : / mmHG Vent. Rate : 052 BPM Atrial Rate : 052 BPM P-R Int : 162 ms QRS Dur : 070 ms QT Int : 422 ms P-R-T Axes : 031 015 021 degrees QTc Int : 392 ms Sinus bradycardia Cannot rule out Anterior infarct , age undetermined Abnormal ECG When compared with ECG of 14-DEC-2022 12:34, No significant change was found Confirmed by Richmond Mcmillan ([id number]) on 01/05/2023 6:20:05 PM Referred By: Confirmed By:Richmond Mcmillan
[2023-01-05] MEDS: ATORVASTATIN 20 MG TAB PO SCH (20:10)
[2023-01-05] MEDS: BENZTROPINE MESYLATE 1 MG TAB PO SCH (20:11)
[2023-01-05] MEDS: GABAPENTIN 400 MG CAP PO SCH (20:13)
[2023-01-05] MEDS: LITHIUM CARBONATE 450 MG TABCR PO SCH (20:14)
[2023-01-05] MEDS: PROPRANOLOL HCL 10 MG TAB PO SCH (20:15)
[2023-01-05] MEDS: QUEtiapine FUMARATE 200 MG TAB PO SCH (20:16)
[2023-01-05] MEDS: THIAMINE HCL 100 MG TAB PO SCH (20:16)
[2023-01-05] MEDS: traZODone HCL 50 MG TAB PO SCH (20:17)
[2023-01-05] MEDS: AUSTEDO 9 MG PO SCH (22:19)
[2023-01-06] MEDS: LEVOTHYROXINE SODIUM 75 MCG TABLET PO SCH (06:01)
[2023-01-06] MEDS: ASPIRIN 81 MG ECTAB PO SCH (08:11)
[2023-01-06] MEDS: GABAPENTIN 400 MG CAP PO SCH ×2 (08:12→21:27)
[2023-01-06] MEDS: THIAMINE HCL 100 MG TAB PO SCH ×2 (08:12→21:29)
[2023-01-06] MEDS: AUSTEDO 9 MG PO SCH ×2 (08:12→21:30)
[2023-01-06] MEDS: BENZTROPINE MESYLATE 1 MG TAB PO SCH ×2 (08:12→21:29)
[2023-01-06] MEDS: PROPRANOLOL HCL 10 MG TAB PO SCH ×2 (08:12→21:27)
[2023-01-06] MEDS: QUEtiapine FUMARATE 25 MG TABLET PO SCH (08:12)
--- NOTE | 2023-01-06 14:59 | Hospitalist Progress Note ---
Date of Service January 06, 2023 Assessment & Plan (1) Ambulatory dysfunction: Plan: Essentially no large change since last admission although now POA (her son) with her business case analyst feel she is unsafe in her current living circumstances. Placement proceedings underway. She will need to go through the targeting process which will prolong things (2) Bipolar 1 disorder: Plan: Supportive care. Continue her routine medications (3) Vitamin B1 deficiency: Plan: Supplementation ordered (4) B12 deficiency: Plan: Supplementation ordered (5) Schizophrenia: Plan: Stable. Continue current medical management (6) Tardive dyskinesia: Plan: Stable. Continue current medical manage (7) Recurrent falls: Plan: OT and PT assessments requested (8) Hypothyroidism: Plan: Continue current thyroid supplementation (9) Neuroleptic-induced Parkinsonism: Plan: Continue current medication (10) Esophageal reflux: Plan: Stable. Continue PPI therapy Plan OT and PT assessments requested. Psychiatry consultation will be requested for target purposes. Admission and Anticipated Discharge Date Admission Date: January 05, 2023 Subjective The patient is sleeping at the time of my examination. Vital signs are stable. Case management has requested psychiatry evaluation for targeting purposes. OT and PT assessments requested. Review of Systems Review of Systems: The patient is currently sleeping Physical Exam Physical Exam: General-sleeping at the time of my rounds HEENT-head atraumatic and normocephalic Neck-no lymphadenopathy or thyromegaly, trachea midline Chest-clear to auscultation percussion anteriorly. No rales, wheezing or rhonchi Cardiac-regular rate and rhythm, normal S1 and S2 Abdomen-normal bowel sounds, no hepatosplenomegaly Extremities-no cyanosis, clubbing, or edema Neuro-unable to assess due to somnolence Psych-unable to assess due to somnolence Results & Data Results & Data Vital Signs (Past 12 Hours) Vital Signs Temp Pulse Resp BP Pulse Ox O2 Del Method 01/06/23 14:49 36.7 C 55 L 16 103/69 94 Room Air 01/06/23 07:05 36.7 C 54 L 16 110/67 96 Room Air Laboratory Results 01/05/23 11:50 01/05/23 11:50 PG Care Time/CCT Total # of Minutes Spent Total Time Spent with Patient: Total time spent is greater than 50% in coordination of care (as documented) at patient's floor/unit and/or counseling patient: Coding Level of Care Code 35834 SUB INP/OBS CARE 235MIN Diagnoses Ambulatory dysfunction R26.2 Bipolar 1 disorder F31.9 Vitamin B1 deficiency E51.9 B12 deficiency E53.8 Schizophrenia F20.9 Tardive dyskinesia G24.01 Recurrent falls R29.6 Hypothyroidism E03.9 Neuroleptic-induced Parkinsonism G21.11 Esophageal reflux K21.9
[2023-01-06] MEDS: LITHIUM CARBONATE 450 MG TABCR PO SCH (21:27)
[2023-01-06] MEDS: traZODone HCL 50 MG TAB PO SCH (21:28)
[2023-01-06] MEDS: QUEtiapine FUMARATE 200 MG TAB PO SCH (21:28)
[2023-01-06] MEDS: ATORVASTATIN 20 MG TAB PO SCH (21:29)
[2023-01-07] MEDS: LEVOTHYROXINE SODIUM 75 MCG TABLET PO SCH (06:01)
[2023-01-07] MEDS: BENZTROPINE MESYLATE 1 MG TAB PO SCH ×2 (08:23→21:23)
[2023-01-07] MEDS: ASPIRIN 81 MG ECTAB PO SCH (08:23)
[2023-01-07] MEDS: GABAPENTIN 400 MG CAP PO SCH (08:24)
[2023-01-07] MEDS: AUSTEDO 9 MG PO SCH (08:24)
[2023-01-07] MEDS: PROPRANOLOL HCL 10 MG TAB PO SCH ×2 (08:25→21:23)
[2023-01-07] MEDS: QUEtiapine FUMARATE 25 MG TABLET PO SCH (08:25)
[2023-01-07] MEDS: THIAMINE HCL 100 MG TAB PO SCH ×2 (08:26→21:23)
--- NOTE | 2023-01-07 13:00 | Psychiatric Consultation ---
Date of Consultation January 07, 2023 Impression / Recommendations Impression Diagnostically hard to evaluate for appropriateness for skilled level of care due to her level of sedation today. Per RN she was tired all morning, ate some breakfast and took AM medications but then went right back to sleep after sleeping overnight. Given excessive sedation recommend discontinuing morning dose of Seroquel. If symptoms persist could consider reducing trazodone back to 100mg HS. No signs for lithium toxicity and Li level was stable, and reduced from 0.9 to 0.8, in the ED. Unclear if worsened confusion at home and increased sedation could represent delirium but medical workup thus far has been unrevealing. Overall, I spent a total of 50 minutes with this case including review of chart records, review of labwork, direct evaluation of the patient at bedside,ordering medication, discussion of the patient with the Nurse and with the hospitalist provider, discussion with the psychiatric liason during clinical rounds and documentation in the electronic health record. (1) Schizophrenia: (2) Bipolar 1 disorder: (3) Tardive dyskinesia: (4) Ambulatory dysfunction: Plan -Discontinued Seroquel 50mg qAM -Continue all other psychiatric medications as ordered -If excessive sedation persists could consider reducing trazodone from 150mg HS back to 100mg HS (her prior dose before early December 2022 admission) -Target evaluation once she is able to participate with assessment Psych History Identifying Data 62-year-old F with a history of schizophrenia, bipolar disorder, tardive dyskinesia, recurrent falls, neuroleptic-induced parkinsonism and concern for dementia admitted for ambulatory dysfunction. Consult is by the hospitalist service for "target evaluation". Chief Complaint mute History of Present Illness Taniya is well known to the psychiatry service and consult service from previous inpatient psychiatric admissions and recent consultations during her medical admission in early December 2022. She was brought to the ED by family due to concerns for worsening confusion/short-term memory issues, urinary incontinence, and frequent falls. Family feels they can no longer safely manage her at home as she will turn on the stove and forget that it's on and cannot be monitoring 24/7 at home. They feel she is now in need of longer-term placement or increased care at home. During her admission two weeks ago a few adjustments to psychiatric medications were made including increase of trazodone from 100mg HS to 150mg HS due to insomnia and then additional dose of Seroquel 50mg HS prn for insomnia. She has otherwise remained on her psychiatric medications of: lithium, gabapentin, benztropine, and deutetrabenazine. Attempts to evaluate her today were unsuccessful due to her excessive sedation. Allergies Allergy/AdvReac Type Severity Reaction Status Date / Time Penicillins Allergy Intermediate Rash Verified 11/19/22 15:20 Home Medications Medication Instructions Recorded Confirmed Type atorvastatin 20 mg tablet (Lipitor) 20 mg PO HS #30 tabs 01/09/21 01/05/23 Rx docusate sodium 100 mg capsule 100 - 200 mg PO HS 02/08/22 01/05/23 History (Colace) aspirin 81 mg tablet,delayed 81 mg PO DAILY 11/19/22 01/05/23 History release benztropine 1 mg tablet 1 mg PO AMPM 11/19/22 01/05/23 History gabapentin 400 mg capsule 400 mg PO AMHS 11/19/22 01/05/23 History levothyroxine 75 mcg tablet 75 mcg PO QAM 11/19/22 01/05/23 History lithium carbonate 450 mg 450 mg PO HS 11/19/22 01/05/23 History tablet,extended release propranolol 10 mg tablet 10 mg PO BID 11/19/22 01/05/23 History quetiapine 200 mg tablet 200 mg PO QPM 11/19/22 01/05/23 History quetiapine 50 mg tablet 50 mg PO QAM 11/19/22 01/05/23 History deutetrabenazine 9 mg tablet 9 mg PO BID 30 days #60 tabs 12/23/22 01/05/23 Rx (Austedo) thiamine HCl (vitamin B1) 100 mg 100 mg PO BID 30 days #60 tabs 12/23/22 01/05/23 Rx tablet trazodone 100 mg tablet 150 mg PO HS 30 days #45 tabs 12/23/22 01/05/23 Rx ciprofloxacin HCl 250 mg tablet 250 mg PO BID 01/05/23 01/05/23 History Patient History Medical History Ambulatory dysfunction Bipolar 1 disorder Chronic diarrhea of unknown origin Cogwheel rigidity Constipation Decubitus ulcer, heel DVT prophylaxis Dystonic drug reaction Falling Fever Healthcare maintenance History of anesthesia reaction difficulty waking History of colon polyps Hyperlipidemia Hyperplastic colon polyp Insomnia Lung nodule Memory changes Neuroleptic malignant syndrome Observed seizure-like activity Psychosis Renal lesion Schizophrenia by history Suicidal ideation Tardive dyskinesia UTI (urinary tract infection) Weakness Surgical History History of colonoscopy with polypectomy History of conization of cervix History of cervical conization by laser History of dilation and curettage History of foot surgery x2--right--no hardware History of hysteroscopy History of right oophorectomy History of tooth extraction all upper teeth History of tubal ligation Family History Father Type 2 diabetes mellitus Family hx colonic polyps Brother Type 2 diabetes mellitus Sister Parathyroid disorder Brother Type 2 diabetes mellitus Other No family history of adverse response to anesthesia Social History Smoking Status: Never smoker Second Hand Exposure: No; Do You Dip or Chew Tobacco: No; Hx Alcohol Use: No Hx Substance Use: No Preferred Language: Indonesian Communication Ability: Impaired Communication Ability Comment: patient often talks to fast, when asked to repeat - easier to understand Secondary Teacher Required: No Beliefs That Will Affect Care: None marital status: Current Living Situation: Spouse current occupational status: unemployed 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 Feels Safe at Home: Yes Gender Identity: Female Assistive Devices: None Physical Exam Psychiatric: Orientation: + not alert Eye Contact: + poor eye contact Speech: + mute Vital Signs (Past 24 Hours): Last Vital Signs Temp 36.5 C 01/07/23 07:23 Pulse 53 L 01/07/23 07:23 Resp 16 01/07/23 07:23 BP 107/71 01/07/23 07:23 Pulse Ox 96 01/07/23 07:23 O2 Del Method Room Air 01/07/23 07:23 Review of Systems Unobtainable due to reduced consciousness Results & Data (PSY) Laboratory Results Li level 0.8 on 01/05/2023; Li level 0.9 on 12/28/2022 Medications Administered Aspirin (Aspirin 81 Mg Ectab) 81 mg PO DAILY DONNIE Stop: 02/05/23 08:59 Last Admin: 01/07/23 08:23 Dose: 81 mg Documented By: Admin: 01/06/23 08:11 Dose: 81 mg Documented By: JAS Atorvastatin Calcium (Atorvastatin 20 Mg Tab) 20 mg PO [facility] Stop: 02/04/23 20:59 Last Admin: 01/06/23 21:29 Dose: 20 mg Documented By: Admin: 01/05/23 20:10 Dose: 20 mg Documented By: DEV Benztropine Mesylate (Benztropine Mesylate 1 Mg Tab) 1 mg PO BID DONNIE Stop: 02/04/23 20:59 Last Admin: 01/07/23 08:23 Dose: 1 mg Documented By: Admin: 01/06/23 21:29 Dose: 1 mg Documented By: Admin: 01/06/23 08:12 Dose: 1 mg Documented By: Admin: 01/05/23 20:11 Dose: 1 mg Documented By: DEV Levothyroxine Sodium (Levothyroxine Sodium 75 Mcg Tablet) [facility]: 02/05/23 06:29 Last Admin: 01/07/23 06:01 Dose: 75 mcg Documented By: Admin: 01/06/23 06:01 Dose: 75 mcg Documented By: EDDA [place] Carbonate ([place] Carbonate 450 Mg Tabcr) 450 mg PO [facility] Stop: 02/04/23 20:59 Last Admin: 01/06/23 21:27 Dose: 450 mg Documented By: Admin: 01/05/23 20:14 Dose: 450 mg Documented By: DEV Propranolol HCl (Propranolol Hcl 10 Mg Tab) 10 mg PO BID DONNIE Stop: 02/04/23 20:59 Last Admin: 01/07/23 08:25 Dose: Not Given Documented By: Admin: 01/06/23 21:27 Dose: 10 mg Documented By: Admin: 01/06/23 08:12 Dose: Not Given Documented By: Admin: 01/05/23 20:15 Dose: 10 mg Documented By: DEV Quetiapine Fumarate (Quetiapine Fumarate 200 Mg Tab) 200 mg PO QPM DONNIE Stop: 02/04/23 20:59 Last Admin: 01/06/23 21:28 Dose: 200 mg Documented By: Admin: 01/05/23 20:16 Dose: 200 mg Documented By: DEV Quetiapine Fumarate (Quetiapine Fumarate 25 Mg Tablet) 50 mg PO QAM DONNIE Stop: 02/05/23 08:59 Last Admin: 01/07/23 08:25 Dose: 50 mg Documented By: Admin: 01/06/23 08:12 Dose: 50 mg Documented By: JAS Thiamine HCl (Thiamine Hcl 100 Mg Tab) 100 mg PO BID [facility] Stop: 02/04/23 20:59 Last Admin: 01/07/23 08:26 Dose: 100 mg Documented By: Admin: 01/06/23 21:29 Dose: 100 mg Documented By: Admin: 01/06/23 08:12 Dose: 100 mg Documented By: Admin: 01/05/23 20:16 Dose: 100 mg Documented By: [facility] Coding Level of Care Code 25922 IN/OBS CONSULT LVL 3,45M Diagnoses Schizophrenia F20.9 Bipolar 1 disorder F31.9 Tardive dyskinesia G24.01 Ambulatory dysfunction R26.2 Time Spent (min) 50
[2023-01-07] MEDS: SODIUM CHLORIDE 0.9% 1,000 ML IV SCH (14:36)
--- NOTE | 2023-01-07 14:37 | Hospitalist Progress Note ---
Date of Service January 07, 2023 Assessment & Plan (1) Toxic encephalopathy: Plan: Due to multiple CONTRACTS REPRESENTATIVE affecting medications which have been discontinued. Appreciate psychiatry consultation and recommendations. Oral intake is nil. IV fluids have been started (2) Ambulatory dysfunction: Plan: Essentially nochange since last admission although now POA (her son) with her manager rn case feel she is unsafe in her current living circumstances. Placement proceedings underway. She will need to go through the targeting process which will prolong things (3) Bipolar 1 disorder: Plan: Supportive care. All sedating CONTRACTS REPRESENTATIVE medications are currently on hold (4) Vitamin B1 deficiency: Plan: Supplementation when able to take p.o. (5) B12 deficiency: Plan: Supplementation when able to take p.o. (6) Schizophrenia: Plan: Stable. Supportive care. Home medications are on hold however due to somnolent status (7) Tardive dyskinesia: Plan: Stable. Continue current medical management when able (8) Recurrent falls: Plan: OT and PT assessments requested when able (9) Hypothyroidism: Plan: Continue current thyroid supplementation when able (10) Neuroleptic-induced Parkinsonism: Plan: Continue current medication when able (11) Esophageal reflux: Plan: Stable. Continue PPI therapy Plan Placement proceedings underway. She will need to go through the targeting process Admission and Anticipated Discharge Date Admission Date: January 07, 2023 Subjective The patient remains somnolent. She has no significant p.o. intake. IV fluids have been started. Multiple CONTRACTS REPRESENTATIVE affecting medications have been discontinued including [place], gabapentin, trazodone. Psychiatry consultation appreciated. She appears to have a toxic encephalopathy Review of Systems Review of Systems: The patient is currently sleeping Physical Exam Physical Exam: General-sleeping at the time of my rounds HEENT-head atraumatic and normocephalic Neck-no lymphadenopathy or thyromegaly, trachea midline Chest-clear to auscultation percussion anteriorly. No rales, wheezing or rhonchi Cardiac-regular rate and rhythm, normal S1 and S2 Abdomen-normal bowel sounds, no hepatosplenomegaly Extremities-no cyanosis, clubbing, or edema Neuro-unable to assess due to somnolence Psych-unable to assess due to somnolence Results & Data Results & Data Vital Signs (Past 12 Hours) Vital Signs Temp Pulse Resp BP Pulse Ox O2 Del Method 01/07/23 07:23 36.5 C 53 L 16 107/71 96 Room Air Laboratory Results 01/05/23 11:50 01/05/23 11:50 PG Care Time/CCT Total # of Minutes Spent Total Time Spent with Patient: Total time spent is greater than 50% in coordination of care (as documented) at patient's floor/unit and/or counseling patient: Coding Level of Care Code 71953 SUB INP/OBS CARE 3/50MIN Diagnoses Toxic encephalopathy G92.9 Ambulatory dysfunction R26.2 Bipolar 1 disorder F31.9 Vitamin B1 deficiency E51.9 B12 deficiency E53.8 Schizophrenia F20.9 Tardive dyskinesia G24.01 Recurrent falls R29.6 Hypothyroidism E03.9 Neuroleptic-induced Parkinsonism G21.11 Esophageal reflux K21.9
[2023-01-07] MEDS: ATORVASTATIN 20 MG TAB PO SCH (21:23)
[2023-01-07] MEDS: LITHIUM CARBONATE 450 MG TABCR PO SCH (21:23)
[2023-01-07] MEDS: QUEtiapine FUMARATE 200 MG TAB PO SCH (21:24)
[2023-01-08] MEDS: SODIUM CHLORIDE 0.9% 1,000 ML IV SCH (06:08)
[2023-01-08] MEDS: LEVOTHYROXINE SODIUM 75 MCG TABLET PO SCH (06:10)
[2023-01-08 07:10] LABS: Basophils # (auto) 0.04 K/uL (0.00-0.20); Basophils % (auto) 0.7 %; Eosinophils # (auto) 0.48 K/uL (0.00-0.50); Eosinophils % (auto) 8.2 %; Hematocrit (blood only) 35.1 % (37.0-47.0); Hemoglobin 11.8 g/dl (12.0-16.0); Immature Granulocytes # (auto) 0.01 K/uL (0.01-0.20); Immature Granulocytes % (auto) 0.2 %; Lymphocytes # (auto) 1.63 K/uL (1.20-3.40); Mean Corpuscular Hemoglobin 30.5 pg (25.0-34.0); Mean Corpuscular Hgb Conc 33.6 g/dL (32.0-36.0); Mean Corpuscular Volume 90.7 fL (80.0-100.0); Mean Platelet Volume 10.7 fL (9.4-12.4); Monocytes % (auto) 8.6 %; Neutrophils # (auto) 3.17 K/uL (1.40-6.50); Neutrophils % (auto) 54.3 %; Platelet Count 162 K/uL (130-400); RDW Coefficient of Variation 12.3 % (11.5-14.5); RDW Standard Deviation 40.9 fL (36.4-46.3); Red Blood Count 3.87 M/uL (4.20-5.40); White Blood Count 5.83 K/ul (4.8-10.8)
[2023-01-08 07:29] LABS: BUN Creatinine Ratio 11.1 (10-20); Calcium 8.9 mg/dl (8.6-10.3); Creatinine Clr Calc Pharmacy 65.2 ml/min; Est GFR (African American) 102.6 ml/min; Est GFR (Non-African American) 88.5 ml/min; Potassium 3.8 mmol/L (3.5-5.1)
[2023-01-08] MEDS: PROPRANOLOL HCL 10 MG TAB PO SCH ×2 (08:07→20:18)
[2023-01-08] MEDS: BENZTROPINE MESYLATE 1 MG TAB PO SCH ×2 (08:08→20:17)
[2023-01-08] MEDS: THIAMINE HCL 100 MG TAB PO SCH ×2 (08:08→20:18)
[2023-01-08] MEDS: ASPIRIN 81 MG ECTAB PO SCH (08:08)
--- NOTE | 2023-01-08 13:02 | Hospitalist Progress Note ---
Date of Service January 08, 2023 Assessment & Plan (1) Toxic encephalopathy: Plan: Mental status appears to be back to baseline. Seroquel has been restarted at a lower dose. Trazodone will be restarted also at a lower dose. Austedo and gabapentin have been discontinued. Appreciate psychiatry consultation and recommendations. Oral intake is back to baseline. IV fluids have been discontinued (2) Ambulatory dysfunction: Plan: Essentially no change since last admission although now POA (her son) with her case filler feel she is unsafe in her current living circumstances. Placement proceedings underway. She will need to go through the targeting process which will prolong things (3) Bipolar 1 disorder: Plan: Supportive care. Austedo and gabapentin have been discontinued due to sedation (4) Vitamin B1 deficiency: Plan: Continue oral supplementation (5) B12 deficiency: Plan: Continue oral supplementation (6) Schizophrenia: Plan: Stable. Supportive care. Continue current medical management. Appreciate psychiatric consultation and recommendations (7) Tardive dyskinesia: Plan: Stable. 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 Continue PPI therapy Plan Placement proceedings underway. She will need to go through the targeting process Admission and Anticipated Discharge Date Admission Date: January 07, 2023 Subjective She is now awake and alert. Seroquel dosage has been decreased and trazodone restarted today, January 08, at lower dose. Austedo has been discontinued as has gabapentin. Psychiatry consultation appreciated. She is currently in the target process Review of Systems Review of Systems: Constitutional-no fever or chills ENT-no blurred vision, no double vision, no epistaxis, no sore throat Respiratory-no cough, no wheezing, no shortness of breath Cardiac-no palpitations, no chest pain, no syncope GI-no nausea, vomiting, diarrhea, melena, hematochezia -no urinary retention, no urinary incontinence, no dysuria, no hematuria Musculoskeletal-no joint pain, no muscle tenderness Skin-no bruising, no rashes, no pruritus Neuro-no isolated weakness, no paresthesia, no weakness Psych-no depression, no anxiety Physical Exam Physical Exam: General-alert and oriented x3, no fevers, no chills HEENT-head atraumatic and normocephalic, pupils equal and reactive to light, extraocular muscles intact Neck-no lymphadenopathy or thyromegaly, trachea midline Chest-clear to auscultation percussion. No rales wheezing or rhonchi Cardiac-regular rate and rhythm, normal S1 and S2 Abdomen-normal bowel sounds, nontender, no hepatosplenomegaly Extremities-no cyanosis, clubbing, or edema Neuro-cranial nerves II through XII intact, motor and sensory function within normal limits, strength symmetrical , no focal deficits Psych-normal affect, normal mood Results & Data Results & Data Vital Signs (Past 12 Hours) Vital Signs Temp Pulse Resp BP Pulse Ox O2 Del Method 01/08/23 07:04 36.6 C 55 L 16 110/67 96 Room Air Laboratory Results 01/08/23 06:36 01/08/23 06:36 PG Care Time/CCT Total # of Minutes Spent Total Time Spent with Patient: Total time spent is greater than 50% in coordination of care (as documented) at patient's floor/unit and/or counseling patient: Coding Level of Care Code 49328 SUB INP/OBS CARE 3/50MIN Diagnoses Toxic encephalopathy G92.9 Ambulatory dysfunction R26.2 Bipolar 1 disorder F31.9 Vitamin B1 deficiency E51.9 B12 deficiency E53.8 Schizophrenia F20.9 Tardive dyskinesia G24.01 Recurrent falls R29.6 Hypothyroidism E03.9 Neuroleptic-induced Parkinsonism G21.11 Esophageal reflux K21.9
--- NOTE | 2023-01-08 19:33 | Psychiatric Progress Note ---
Date of Service January 08, 2023 Impression / Recommendations Impression 01/08/2023: In contrast to yesterday, when my colleague wasn't able to arouse pt sufficiently to examine, pt is awake and alert. When I arrived she was being redirected from leaving her room by the FOOD MIXER ASSEMBLER who said she'd just gone for a walk around the unit. Pt is pleasant and cheerful but can't tell me where we are or why she's here. She disavows any concern about ability to care for herself at home and is certain nobody else has any such concerns either. Pt is unable to tell me any medical problems she might have and seems doubtful when I tell her she's in a hospital. She denies needing or taking any medicat ion. When I ask about her involuntary movements she denies having any. Pt told me she needed to "go over there to go to the bathroom" (pointing to her bathroom) so I took my leave, but she followed me out of her room and down the hallway. Currently pt does not present with any significant mood or psychotic symptoms but her memory is very poor and she unaware of her medical needs and unable to make appropriate and safe decisions. The patient is psychiatrically stable for transfer to a longterm facility. There is no acute indication for inpatient psychiatric hospitalization as the patient is not suicidal or homicidal; there is no evidence of psychosis. Psychiatric follow-up care for this patient should include ongoing management of her medications. 01/07/2023: Diagnostically hard to evaluate for appropriateness for skilled level of care due to her level of sedation today. Per RN she was tired all morning, ate some breakfast and took AM medications but then went right back to sleep after sleeping overnight. Given excessive sedation recommend discontinuing morning dose of Seroquel. If symptoms persist could consider reducing trazodone back to 100mg HS. No signs for lithium toxicity and Li level was stable, and reduced from 0.9 to 0.8, in the ED. Unclear if worsened confusion at home and increased sedation could represent delirium but medical workup thus far has been unrevealing. Overall, I spent a total of 50 minutes with this case including review of chart records, review of labwork, direct evaluation of the patient at bedside,ordering medication, discussion of the patient with the Nurse and with the hospitalist provider, discussion with the psychiatric liason during clinical rounds and documentation in the electronic health record. (1) Schizophrenia: (2) Bipolar 1 disorder: (3) Tardive dyskinesia: (4) Ambulatory dysfunction: Plan 01/08/2023: * agree with current psychiatric medication orders * per my assessment today, pt appears to require longterm care and is certainly psychiatrically stable for transfer to an appropriate SNF 01/07/2023: -Discontinued Seroquel 50mg qAM -Continue all other psychiatric medications as ordered -If excessive sedation persists could consider reducing trazodone from 150mg HS back to 100mg HS (her prior dose before early December 2022 admission) -Target evaluation once she is able to participate with assessment Suicide Risk Level Suicide Risk Level: Low (q15 min observation checks) Suicide Risk Level Comments: denies any suicidal thoughts Interval History Identifying Information 62-year-old F with a history of schizophrenia, bipolar disorder, tardive dyskinesia, recurrent falls, neuroleptic-induced parkinsonism and concern for dementia admitted for ambulatory dysfunction. Consult is by the hospitalist service for "target evaluation". Chief Complaint "They just have no sense of humor". Subjective Subjective Patient was seen & assessed and interval progress reviewed in a multidisciplinary team meeting with psychiatric liaison nursing and social work and reviewed with medical floor nursing staff. For details, see the "Impression" section. Physical Exam Psychiatric Orientation: alert, oriented to person and cooperative (superficially); + not oriented to place ("this place here, probably") and + not oriented to time ("16 of May", won't attempt to guess year) Apperance: appropriately dressed, appropriately groomed and appeared stated age Eye Contact: + fair eye contact Motor Behavior: + EPS (marked orrobuccolingual dyskinesia) Speech: normal rate/rhythm/volume of speech Affect: + constricted affect Mood: no depressed mood, no anxious mood and no irritable mood Thought Process: + tangential thought process and + concrete thought process Thought Content: no delusions Suicidal Thoughts: denies suicidal thoughts Homicidal Thoughts: denies homicidal thoughts Hallucinations: no auditory hallucinations and no visual hallucinations Cognition: + recent memory not intact, + remote memory not intact, + attention not intact and + language not intact Estimated Intelligence: average estimated intelligence Insight: + poor insight Judgment: + poor judgement Vital Signs (Past 24 Hours) Last Vital Signs Temp 36.7 C 01/08/23 15:29 Pulse 62 01/08/23 15:29 Resp 15 01/08/23 15:29 BP 99/66 L 01/08/23 15:29 Pulse Ox 98 01/08/23 15:29 O2 Del Method Room Air 01/08/23 15:29 Results & Data ([facility]) Laboratory Results Laboratory Results - last 24 hr 01/08/23 01/08/23 06:36 06:36 WBC 5.83 RBC 3.87 L Hgb 11.8 L Hct 35.1 L MCV 90.7 MCH 30.5 MCHC 33.6 RDW Std Deviation 40.9 RDW Coeff of Zakiya 12.3 Plt Count 162 MPV 10.7 Immature Gran % (Auto) 0.2 Neut % (Auto) 54.3 Lymph % (Auto) 28.0 [place]ham % (Auto) 8.6 Eos % (Auto) 8.2 Baso % (Auto) 0.7 Neut # (Auto) 3.17 Lymph # (Auto) 1.63 [place] # (Auto) 0.50 Eos # (Auto) 0.48 Baso # (Auto) 0.04 Immature Gran # (Auto) 0.01 Sodium 140 Potassium 3.8 Chloride 111 H Carbon Dioxide 26 Anion Gap 3 BUN 8 Creatinine 0.72 Est Cr Clr Drug Dosing 65.2 Est GFR ( Amer) 102.6 Est GFR (Non-Af Amer) 88.5 BUN/Creatinine Ratio 11.1 Glucose 103 H Calcium 8.9 Current Inpatient Medications Current Inpatient Medications: Current Inpatient Medications Aspirin (Aspirin 81 Mg Ectab) 81 mg PO DAILY DONNIE Stop: 02/05/23 08:59 Last Admin: 01/08/23 08:08 Dose: 81 mg Atorvastatin Calcium (Atorvastatin 20 Mg Tab) 20 mg PO HS DONNIE Stop: 02/04/23 20:59 Last Admin: 01/07/23 21:23 Dose: 20 mg Benztropine Mesylate (Benztropine Mesylate 1 Mg Tab) 1 mg PO BID DONNIE Stop: 02/04/23 20:59 Last Admin: 01/08/23 08:08 Dose: 1 mg Levothyroxine Sodium (Levothyroxine Sodium 75 Mcg Tablet) 75 mcg PO DAILYBB DONNIE Stop: 02/05/23 06:29 Last Admin: 01/08/23 06:10 Dose: 75 mcg Peck Carbonate (Peck Carbonate 450 Mg Tabcr) 450 mg PO HS DONNIE Stop: 02/04/23 20:59 Last Admin: 01/07/23 21:23 Dose: 450 mg Propranolol HCl (Propranolol Hcl 10 Mg Tab) 10 mg PO BID DONNIE Stop: 02/04/23 20:59 Last Admin: 01/08/23 08:07 Dose: 10 mg Quetiapine Fumarate (Quetiapine Fumarate 200 Mg Tab) 200 mg PO QPM DONNIE Stop: 02/04/23 20:59 Last Admin: 01/07/23 21:24 Dose: 200 mg Thiamine HCl (Thiamine Hcl 100 Mg Tab) 100 mg PO BID DONNIE Stop: 02/04/23 20:59 Last Admin: 01/08/23 08:08 Dose: 100 mg Trazodone HCl (Trazodone Hcl 100 Mg Tab) 100 mg PO HS DONNIE Stop: 02/07/23 20:59
[2023-01-08] MEDS: ATORVASTATIN 20 MG TAB PO SCH (20:18)
[2023-01-08] MEDS: traZODone HCL 100 MG TAB PO SCH (20:18)
[2023-01-08] MEDS: QUEtiapine FUMARATE 200 MG TAB PO SCH (20:18)
[2023-01-08] MEDS: LITHIUM CARBONATE 450 MG TABCR PO SCH (20:18)
[2023-01-09] MEDS: LEVOTHYROXINE SODIUM 75 MCG TABLET PO SCH (05:25)
[2023-01-09] MEDS: THIAMINE HCL 100 MG TAB PO SCH ×2 (09:48→19:20)
[2023-01-09] MEDS: ASPIRIN 81 MG ECTAB PO SCH (09:48)
[2023-01-09] MEDS: PROPRANOLOL HCL 10 MG TAB PO SCH ×2 (09:48→19:21)
[2023-01-09] MEDS: BENZTROPINE MESYLATE 1 MG TAB PO SCH ×2 (09:48→19:21)
--- NOTE | 2023-01-09 14:48 | Hospitalist Progress Note ---
Date of Service January 09, 2023 Assessment & Plan (1) Toxic encephalopathy: Plan: Mental status appears to be back to baseline. Seroquel has been restarted at a lower dose. Trazodone has been restarted also at a lower dose. Austedo and gabapentin have been discontinued. Appreciate psychiatry consultation and recommendations. Oral intake is back to baseline. IV fluids have been discontinued (2) Ambulatory dysfunction: Plan: Essentially no change since last admission although now POA (her son) with her immigration case worker feel she is unsafe in her current living circumstances. Placement proceedings underway. She will need to go through the targeting process which will prolong things (3) Bipolar 1 disorder: Plan: Supportive care. Austedo and gabapentin have been discontinued due to sedation (4) Vitamin B1 deficiency: Plan: Continue oral supplementation (5) B12 deficiency: Plan: Continue oral supplementation (6) Schizophrenia: Plan: Stable. Supportive care. Continue current medical management. Appreciate psyc hiatric consultation and recommendations (7) Tardive dyskinesia: Plan: Stable. 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 Continue PPI therapy Plan Placement proceedings underway. She will need to go through the targeting process Admission and Anticipated Discharge Date Admission Date: January 07, 2023 Subjective She remains awake and alert. Targeting process continues. Seroquel and trazodone dosages have been down titrated and Austedo has been discontinued. Appreciate psychiatry consultation and recommendations Review of Systems Review of Systems: Constitutional-no fever or chills ENT-no blurred vision, no double vision, no epistaxis, no sore throat Respiratory-no cough, no wheezing, no shortness of breath Cardiac-no palpitations, no chest pain, no syncope GI-no nausea, vomiting, diarrhea, melena, hematochezia -no urinary retention, no urinary incontinence, no dysuria, no hematuria Musculoskeletal-no joint pain, no muscle tenderness Skin-no bruising, no rashes, no pruritus Neuro-no isolated weakness, no paresthesia, no weakness Psych-no depression, no anxiety Physical Exam Physical Exam: General-alert and oriented x3, no fevers, no chills HEENT-head atraumatic and normocephalic, pupils equal and reactive to light, extraocular muscles intact Neck-no lymphadenopathy or thyromegaly, trachea midline Chest-clear to auscultation percussion. No rales wheezing or rhonchi Cardiac-regular rate and rhythm, normal S1 and S2 Abdomen-normal bowel sounds, nontender, no hepatosplenomegaly Extremities-no cyanosis, clubbing, or edema Neuro-cranial nerves II through XII intact, motor and sensory function within normal limits, strength symmetrical , no focal deficits Psych-normal affect, normal mood Results & Data Results & Data Vital Signs (Past 12 Hours) Vital Signs Temp Pulse Pulse Resp BP BP Pulse Ox 01/09/23 14:12 36.6 C 64 18 101/60 99 01/09/23 07:00 36.2 C L 67 20 126/85 99 O2 Del Method 01/09/23 14:12 Room Air 01/09/23 07:00 Room Air Laboratory Results 01/08/23 06:36 01/08/23 06:36 PG Care Time/CCT Total # of Minutes Spent Total Time Spent with Patient: Total time spent is greater than 50% in coordination of care (as documented) at patient's floor/unit and/or counseling patient: Coding Level of Care Code 67978 SUB INP/OBS CARE 2/35MIN Diagnoses Toxic encephalopathy G92.9 Ambulatory dysfunction R26.2 Bipolar 1 disorder F31.9 Vitamin B1 deficiency E51.9 B12 deficiency E53.8 Schizophrenia F20.9 Tardive dyskinesia G24.01 Recurrent falls R29.6 Hypothyroidism E03.9 Neuroleptic-induced Parkinsonism G21.11 Esophageal reflux K21.9
[2023-01-09] MEDS: LITHIUM CARBONATE 450 MG TABCR PO SCH (19:21)
[2023-01-09] MEDS: ATORVASTATIN 20 MG TAB PO SCH (19:21)
[2023-01-09] MEDS: traZODone HCL 100 MG TAB PO SCH (19:22)
[2023-01-09] MEDS: QUEtiapine FUMARATE 200 MG TAB PO SCH (19:22)
[2023-01-10] MEDS: THIAMINE HCL 100 MG TAB PO SCH ×2 (09:14→19:29)
[2023-01-10] MEDS: PROPRANOLOL HCL 10 MG TAB PO SCH ×2 (09:14→19:28)
[2023-01-10] MEDS: ASPIRIN 81 MG ECTAB PO SCH (09:14)
[2023-01-10] MEDS: BENZTROPINE MESYLATE 1 MG TAB PO SCH ×2 (09:15→19:28)
[2023-01-10] MEDS: LEVOTHYROXINE SODIUM 75 MCG TABLET PO SCH (09:15)
[2023-01-10] MEDS: LITHIUM CARBONATE 450 MG TABCR PO SCH (19:28)
[2023-01-10] MEDS: traZODone HCL 100 MG TAB PO SCH (19:28)
[2023-01-10] MEDS: QUEtiapine FUMARATE 200 MG TAB PO SCH (19:29)
[2023-01-10] MEDS: ATORVASTATIN 20 MG TAB PO SCH (19:29)
--- NOTE | 2023-01-10 22:04 | Hospitalist Progress Note ---
Date of Service January 10, 2023 Assessment & Plan (1) Toxic encephalopathy: Plan: Mental status appears to be back to baseline. Seroquel has been restarted at a lower dose. Trazodone has been restarted also at a lower dose. Austedo and gabapentin have been discontinued. Appreciate psychiatry consultation and recommendations. Oral intake is back to baseline. IV fluids have been discontinued Awaiting targeting process (2) Ambulatory dysfunction: Plan: Essentially no change since last admission although now POA (her son) with her field nurse case manager feel she is unsafe in her current living circumstances. Placement proceedings underway. She will need to go through the targeting process which will prolong things (3) Bipolar 1 disorder: Plan: Supportive care. Austedo and gabapentin have been discontinued due to sedation (4) Vitamin B1 deficiency: Plan: Continue oral supplementation (5) B12 deficiency: Plan: Continue oral supplementation (6) Schizophrenia: Plan: Stable. Supportive care. Continue current medical management. Appreciate psychiatric consultation and recommendations (7) Tardive dyskinesia: Plan: Stable. 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 Continue PPI therapy Plan Placement proceedings underway. She will need to go through the targeting process Admission and Anticipated Discharge Date Admission Date: January 07, 2023 Subjective 62 yo female reports no new symptoms. Patient has been walking the halls with a clinical nursing coordinator throughout the day. Review of Systems Review of Systems: All systems reviewed & are unremarkable except as noted in HPI & below Physical Exam Physical Exam: General-alert and oriented x3, no fevers, no chills HEENT-head atraumatic and normocephalic Neck-no lymphadenopathy or thyromegaly, trachea midline Chest-clear to auscultation percussion. No rales wheezing or rhonchi Cardiac-regular rate and rhythm, normal S1 and S2 Abdomen-normal bowel sounds, nontender, no hepatosplenomegaly Extremities-no cyanosis, clubbing, or edema Neuro- no focal deficits Psych-normal affect, normal mood Results & Data Results & Data Vital Signs (Past 12 Hours) Vital Signs Temp Pulse Resp BP Pulse Ox O2 Del Method 01/10/23 20:53 36.9 C 65 17 101/65 Room Air 01/10/23 16:09 36.6 C 63 16 126/82 97 Room Air PG Care Time/CCT Total # of Minutes Spent Total Time Spent with Patient: Total time spent is greater than 50% in coordination of care (as documented) at patient's floor/unit and/or counseling patient: Coding Level of Care Code 51245 SUB INP/OBS CARE 2/35MIN Diagnoses Toxic encephalopathy G92.9 Ambulatory dysfunction R26.2 Bipolar 1 disorder F31.9 Vitamin B1 deficiency E51.9 B12 deficiency E53.8 Schizophrenia F20.9 Tardive dyskinesia G24.01 Recurrent falls R29.6 Hypothyroidism E03.9 Neuroleptic-induced Parkinsonism G21.11 Esophageal reflux K21.9
[2023-01-11] MEDS: LEVOTHYROXINE SODIUM 75 MCG TABLET PO SCH (08:38)
[2023-01-11] MEDS: BENZTROPINE MESYLATE 1 MG TAB PO SCH ×2 (08:38→21:40)
[2023-01-11] MEDS: THIAMINE HCL 100 MG TAB PO SCH ×2 (08:38→21:41)
[2023-01-11] MEDS: ASPIRIN 81 MG ECTAB PO SCH (08:39)
[2023-01-11] MEDS: PROPRANOLOL HCL 10 MG TAB PO SCH ×2 (08:39→21:41)
[2023-01-11] MEDS ORDERED: ONDANSETRON INJ 2 MG/ML 2 ML VIAL IV PRN (18:37)
--- NOTE | 2023-01-11 21:19 | Hospitalist Progress Note ---
Date of Service January 11, 2023 Assessment & Plan (1) Toxic encephalopathy: Plan: Mental status appears to be back to baseline. Seroquel has been restarted at a lower dose. Trazodone has been restarted also at a lower dose. Austedo and gabapentin have been discontinued. Appreciate psychiatry consultation and recommendations. Oral intake is back to baseline. IV fluids have been discontinued Awaiting targeting process Ordered zofran for nausea. (2) Ambulatory dysfunction: Plan: Essentially no change since last admission although now POA (her son) with her nurse case management feel she is unsafe in her current living circumstances. Placement proceedings underway. She will need to go through the targeting process which will prolong things (3) Bipolar 1 disorder: Plan: Supportive care. Austedo and gabapentin have been discontinued due to sedation (4) Vitamin B1 deficiency: Plan: Continue oral supplementation (5) B12 deficiency: Plan: Continue oral supplementation (6) Schizophrenia: Plan: Stable. Supportive care. Continue current medical management. Appreciate psychiatric consultation and recommendations (7) Tardive dyskinesia: Plan: Stable. 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 Continue PPI therapy Plan Placement proceedings underway. She will need to go through the targeting process Admission and Anticipated Discharge Date Admission Date: January 07, 2023 Subjective 62 yo female reports feeling nauseous. Patient has no new symptoms. Review of Systems Review of Systems: All systems reviewed & are unremarkable except as noted in HPI & below Physical Exam Physical Exam: General-alert and oriented x3, no fevers, no chills HEENT-head atraumatic and normocephalic Neck-no lymphadenopathy or thyromegaly, trachea midline Chest-clear to auscultation percussion. No rales wheezing or rhonchi Cardiac-regular rate and rhythm, normal S1 and S2 Abdomen-normal bowel sounds, nontender, no hepatosplenomegaly Extremities-no cyanosis, clubbing, or edema Neuro- no focal deficits Psych-normal affect, normal mood Results & Data Results & Data Vital Signs (Past 12 Hours) Vital Signs Temp Pulse Resp BP Pulse Ox O2 Del Method 01/11/23 15:00 37.0 C 72 16 126/88 99 Room Air PG Care Time/CCT Total # of Minutes Spent Total Time Spent with Patient: Total time spent is greater than 50% in coordination of care (as documented) at patient's floor/unit and/or counseling patient: Coding Level of Care Code 34265 SUB INP/OBS CARE 2/35MIN Diagnoses Toxic encephalopathy G92.9 Ambulatory dysfunction R26.2 Bipolar 1 disorder F31.9 Vitamin B1 deficiency E51.9 B12 deficiency E53.8 Schizophrenia F20.9 Tardive dyskinesia G24.01 Recurrent falls R29.6 Hypothyroidism E03.9 Neuroleptic-induced Parkinsonism G21.11 Esophageal reflux K21.9
[2023-01-11] MEDS: ATORVASTATIN 20 MG TAB PO SCH (21:40)
[2023-01-11] MEDS: LITHIUM CARBONATE 450 MG TABCR PO SCH (21:40)
[2023-01-11] MEDS: QUEtiapine FUMARATE 200 MG TAB PO SCH (21:41)
[2023-01-11] MEDS: traZODone HCL 100 MG TAB PO SCH (21:41)
[2023-01-12] MEDS: LEVOTHYROXINE SODIUM 75 MCG TABLET PO SCH (10:51)
[2023-01-12] MEDS: THIAMINE HCL 100 MG TAB PO SCH ×2 (10:52→20:30)
[2023-01-12] MEDS: ASPIRIN 81 MG ECTAB PO SCH (10:52)
[2023-01-12] MEDS: BENZTROPINE MESYLATE 1 MG TAB PO SCH ×2 (10:53→20:30)
[2023-01-12] MEDS: PROPRANOLOL HCL 10 MG TAB PO SCH ×2 (10:53→20:31)
[2023-01-12] MEDS: LITHIUM CARBONATE 450 MG TABCR PO SCH (20:30)
[2023-01-12] MEDS: ATORVASTATIN 20 MG TAB PO SCH (20:30)
[2023-01-12] MEDS: traZODone HCL 100 MG TAB PO SCH (20:30)
[2023-01-12] MEDS: QUEtiapine FUMARATE 200 MG TAB PO SCH (20:30)
--- NOTE | 2023-01-12 20:59 | Hospitalist Progress Note ---
Date of Service January 12, 2023 Assessment & Plan (1) Toxic encephalopathy: Plan: Mental status appears to be back to baseline. Seroquel has been restarted at a lower dose. Trazodone has been restarted also at a lower dose. Austedo and gabapentin have been discontinued. Appreciate psychiatry consultation and recommendations. Oral intake is back to baseline. IV fluids have been discontinued Awaiting targeting process Ordered zofran for nausea on 01/12. (2) Ambulatory dysfunction: Plan: Essentially no change since last admission although now POA (her son) with her foster care case manager feel she is unsafe in her current living circumstances. Placement proceedings underway. She will need to go through the targeting process which will prolong things (3) Bipolar 1 disorder: Plan: Supportive care. Austedo and gabapentin have been discontinued due to sedation (4) Vitamin B1 deficiency: Plan: Continue oral supplementation (5) B12 deficiency: Plan: Continue oral supplementation (6) Schizophrenia: Plan: Stable. Supportive care. Continue current medical management. Appreciate psychiatric consultation and recommendations (7) Tardive dyskinesia: Plan: Stable. 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 Continue PPI therapy Plan Placement proceedings underway. She will need to go through the targeting process Admission and Anticipated Discharge Date Admission Date: January 07, 2023 Subjective Patient reports no new symptoms. Review of Systems Review of Systems: All systems reviewed & are unremarkable except as noted in HPI & below Physical Exam Physical Exam: General-alert and oriented x3, no fevers, no chills HEENT-head atraumatic and normocephalic Extremities-no cyanosis, clubbing, or edema Neuro- no focal deficits Psych-normal affect, normal mood Results & Data Results & Data Vital Signs (Past 12 Hours) Vital Signs Temp Pulse Resp BP Pulse Ox O2 Del Method 01/12/23 20:08 36.5 C 69 16 145/84 H 97 Room Air 01/12/23 09:07 84 16 97/59 L 94 Room Air PG Care Time/CCT Total # of Minutes Spent Total Time Spent with Patient: Total time spent is greater than 50% in coordination of care (as documented) at patient's floor/unit and/or counseling patient: Coding Level of Care Code 28840 SUB INP/OBS CARE 235MIN Diagnoses Toxic encephalopathy G92.9 Ambulatory dysfunction R26.2 Bipolar 1 disorder F31.9 Vitamin B1 deficiency E51.9 B12 deficiency E53.8 Schizophrenia F20.9 Tardive dyskinesia G24.01 Recurrent falls R29.6 Hypothyroidism E03.9 Neuroleptic-induced Parkinsonism G21.11 Esophageal reflux K21.9
--- NOTE | 2023-01-13 08:43 | Hospitalist Progress Note ---
Date of Service January 13, 2023 Assessment & Plan (1) Toxic encephalopathy: Plan: resoled Seroquel has been restarted at a lower dose. Trazodone has been restarted also at a lower dose. Austedo and gabapentin have been discontinued. Appreciate psychiatry consultation and recommendations. Awaiting targeting process Ordered zofran for nausea on 01/12. (2) Ambulatory dysfunction: Plan: Essentially no change since last admission POA (her son) with her case management director feel she is unsafe in her current living circumstances. Placement proceedings underway. She will need to go through the targeting process which will prolong things (3) Bipolar 1 disorder: Plan: Supportive care. Austedo and gabapentin have been discontinued due to sedation (4) Vitamin B1 deficiency: Plan: Continue oral supplementation (5) B12 deficiency: Plan: Continue oral supplementation (6) Schizophrenia: Plan: Stable. Supportive care. Continue current medical management. Appreciate psychiatric consultation and recommendations (7) Tardive dyskinesia: Plan: Stable. 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 Continue PPI therapy Plan Placement proceedings underway. She will need to go through the targeting process Admission and Anticipated Discharge Date Admission Date: January 07, 2023 Subjective pt is seen in the company of her who is discussing disposition son have previously stated feels home environment is unsafe Physical Exam Physical Exam: pt has tardive dyskinesia lip smacking and tongue movements no immediate physical issues Results & Data Results & Data Vital Signs (Past 12 Hours) Vital Signs Temp Pulse Resp BP Pulse Ox O2 Del Method 01/13/23 07:48 98.1 F 75 16 131/78 94 Room Air PG Care Time/CCT Total # of Minutes Spent Total Time Spent with Patient: Total time spent is greater than 50% in coordination of care (as documented) at patient's floor/unit and/or counseling patient: Coding Level of Care Code 42393 SUB INP/OBS CARE 2/35MIN Diagnoses Toxic encephalopathy G92.9 Ambulatory dysfunction R26.2 Bipolar 1 disorder F31.9 Vitamin B1 deficiency E51.9 B12 deficiency E53.8 Schizophrenia F20.9 Tardive dyskinesia G24.01 Recurrent falls R29.6 Hypothyroidism E03.9 Neuroleptic-induced Parkinsonism G21.11 Esophageal reflux K21.9
[2023-01-13] MEDS: LEVOTHYROXINE SODIUM 75 MCG TABLET PO SCH (09:00)
[2023-01-13] MEDS: BENZTROPINE MESYLATE 1 MG TAB PO SCH ×2 (09:00→20:38)
[2023-01-13] MEDS: THIAMINE HCL 100 MG TAB PO SCH ×2 (09:00→20:38)
[2023-01-13] MEDS: ASPIRIN 81 MG ECTAB PO SCH (09:01)
[2023-01-13] MEDS: PROPRANOLOL HCL 10 MG TAB PO SCH ×2 (09:01→20:38)
[2023-01-13] MEDS: traZODone HCL 100 MG TAB PO SCH (20:38)
[2023-01-13] MEDS: QUEtiapine FUMARATE 200 MG TAB PO SCH (20:38)
[2023-01-13] MEDS: LITHIUM CARBONATE 450 MG TABCR PO SCH (20:38)
[2023-01-13] MEDS: ATORVASTATIN 20 MG TAB PO SCH (20:38)
[2023-01-14] MEDS: LEVOTHYROXINE SODIUM 75 MCG TABLET PO SCH (06:55)
[2023-01-14] MEDS: THIAMINE HCL 100 MG TAB PO SCH ×2 (08:57→21:18)
[2023-01-14] MEDS: ASPIRIN 81 MG ECTAB PO SCH (08:58)
[2023-01-14] MEDS: BENZTROPINE MESYLATE 1 MG TAB PO SCH ×2 (08:58→21:17)
[2023-01-14] MEDS: PROPRANOLOL HCL 10 MG TAB PO SCH ×2 (08:59→21:18)
--- NOTE | 2023-01-14 15:54 | Hospitalist Progress Note ---
Date of Service January 14, 2023 Assessment & Plan (1) Toxic encephalopathy: Plan: resoled Seroquel has been restarted at a lower dose. Trazodone has been restarted also at a lower dose. Austedo and gabapentin have been discontinued. Appreciate psychiatry consultation and recommendations. Awaiting targeting process Ordered zofran for nausea on 01/12. (2) Ambulatory dysfunction: Plan: Essentially no change since last admission POA (her son) with her case fitter feel she is unsafe in her current living circumstances. Placement proceedings underway. She will need to go through the targeting process which will prolong things (3) Bipolar 1 disorder: Plan: Supportive care. Austedo and gabapentin have been discontinued due to sedation (4) Vitamin B1 deficiency: Plan: Continue oral supplementation (5) B12 deficiency: Plan: Continue oral supplementation (6) Schizophrenia: Plan: Stable. Supportive care. Continue current medical management. Appreciate psychiatric consultation and recommendations (7) Tardive dyskinesia: Plan: Stable. 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 Continue PPI therapy Admission and Anticipated Discharge Date Admission Date: January 07, 2023 Subjective pt is seen ambulating in the halls, family to take home in the am, arrangements made to keep safe son have previously stated feels home environment is unsafe however changed his mind Physical Exam Physical Exam: pt has tardive dyskinesia lip smacking and tongue movements no immediate physical issues Results & Data Results & Data Vital Signs (Past 12 Hours) Vital Signs Temp Pulse Resp BP BP Pulse Ox O2 Del Method 01/14/23 14:45 98.1 F 66 18 135/84 99 Room Air 01/14/23 09:27 115/78 01/14/23 07:53 97.7 F 66 16 84/55 L 98 Room Air PG Care Time/CCT Total # of Minutes Spent Total Time Spent with Patient: Total time spent is greater than 50% in coordination of care (as documented) at patient's floor/unit and/or counseling patient: Coding Level of Care Code 37242 SUB INP/OBS CARE 2/35MIN Diagnoses Toxic encephalopathy G92.9 Ambulatory dysfunction R26.2 Bipolar 1 disorder F31.9 Vitamin B1 deficiency E51.9 B12 deficiency E53.8 Schizophrenia F20.9 Tardive dyskinesia G24.01 Recurrent falls R29.6 Hypothyroidism E03.9 Neuroleptic-induced Parkinsonism G21.11 Esophageal reflux K21.9
[2023-01-14] MEDS: LITHIUM CARBONATE 450 MG TABCR PO SCH (21:17)
[2023-01-14] MEDS: ATORVASTATIN 20 MG TAB PO SCH (21:17)
[2023-01-14] MEDS: QUEtiapine FUMARATE 200 MG TAB PO SCH (21:17)
[2023-01-14] MEDS: traZODone HCL 100 MG TAB PO SCH (21:17)
[2023-01-15] MEDS: LEVOTHYROXINE SODIUM 75 MCG TABLET PO SCH (06:41)
[2023-01-15] MEDS: PROPRANOLOL HCL 10 MG TAB PO SCH (07:51)
[2023-01-15] MEDS: ASPIRIN 81 MG ECTAB PO SCH (07:51)
[2023-01-15] MEDS: BENZTROPINE MESYLATE 1 MG TAB PO SCH (07:51)
[2023-01-15] MEDS: THIAMINE HCL 100 MG TAB PO SCH (07:51)
--- NOTE | 2023-01-15 15:31 | Discharge Summary ---
Date of Service January 15, 2023 Admission HPI Per Admitting Provider Taniya Waterman is a 62 year old female who presents to the ER with frequent falls, urine incontinence, short term memory problems. Patient reports no problems. Longstanding problems reported by her outpatient field nurse case manager and confirmed by her son who is her POA over the phone. Similar symptoms since December admission although her urine incontinence appears to be new. Main concern is her leaving the stove on in the house and her frequent falls. Seen by neurology and psychiatry last admission and medications optimized recently. Son and field nurse case manager no longer feel she is safe at home and feel she needs terminal manager pl acement vs. possible 06/12 care which is unable to be arranged from the emergency room. 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 Trazodone has been restarted also at a lower dose. Austedo and gabapentin have been discontinued. Appreciate psychiatry consultation and recommendations. Family did now agree to take patient home with 24-hour care if this fails likely will need targeting process to be reinstituted Ordered zofran for nausea on 01/12. (2) Ambulatory dysfunction: Patient able to ambulate easily in the hallway with contact-guard only for safety (3) Bipolar 1 disorder: Supportive care. Austedo and gabapentin have been discontinued due to sedation (4) Vitamin B1 deficiency: Continue oral supplementation (5) B12 deficiency: Continue oral supplementation (6) Schizophrenia: Stable. Supportive care. Continue current medical management. Appreciate psychiatric consultation and recommendations recommend continued outpatient follow-up with psychiatry (7) Tardive dyskinesia: Stable. Continue current medical management (8) Hypothyroidism: Continue current thyroid supplementation, benztropine (9) Neuroleptic-induced Parkinsonism: Continue current medication (10) Esophageal reflux: Stable. Continue PPI therapy Total Time Total Time Spent Total Time Spent (In Minutes): It required LESS than 30 minutes to prepare this patient for discharge Discharge Plan Discharge Items Patient Disposition: Home - Home Health Services Reason For Visit: ALTERED MENTAL STATE Discharge Diagnosis: altered mental status due to medication schizophrenia neuroleptic induced parkinsonism Activity: Resume your previous activity Non-emergency contact: Primary Care Provider and Specialist Call non-emergency contact if: your symptoms worsen Follow-up/Referrals: Sonja Spears, DO [Primary Care Provider] - Diet: Regular Addtl Attending Provider Instructions: please be attuned to your medications and follow up with your mental health practitioner as soon as able Pending Studies at Discharge: No Stand-Alone Forms: My [facility], Smoking Cessation Medications and DC Order Prescriptions: Continued quetiapine 200 mg tablet 200 mg PO QPM aspirin 81 mg Tablet,Delayed Release (Dr/Ec) 81 mg PO DAILY lithium carbonate 450 mg tablet extended release 450 mg PO HS levothyroxine 75 mcg tablet 75 mcg PO QAM propranolol 10 mg tablet 10 mg PO BID benztropine 1 mg tablet 1 mg PO AMPM atorvastatin [Lipitor] 20 mg tablet 20 mg PO HS Qty: 30 0RF docusate sodium [Colace] 100 mg capsule 100 - 200 mg PO HS thiamine HCl (vitamin B1) 100 mg Tablet 100 mg PO BID 30 Days Qty: 60 0RF Changed trazodone 100 mg tablet 100 mg PO HS 30 Days Qty: 45 0RF Discontinued quetiapine 50 mg tablet 50 mg PO QAM Rx Instructions: Take with breakfast gabapentin 400 mg capsule 400 mg PO AMHS Austedo 9 mg tablet 9 mg PO BID 30 Days Qty: 60 0RF ciprofloxacin HCl 250 mg tablet 250 mg PO BID Rx Instructions: pt not compliant with taking Discharge Orders: Discharge Order (Routine); Ordered 01/15/23 Ordered By: Bunny Parsons Admission Data Admit Date/Time: 01/07/23 12:28 Attending Provider: Bunny Parsons Admit Provider: Chalino Radford Primary Care Provider: Sonja Spears Other Providers: Chalino Radford ; Barak Rangel,Rehab ; Marianela Morton ; Susie Rodriguez ; Josep Jimenez ; [facility] ; [facility] ; [facility] Other Interventions: Discharge Summary Assessment (RN) Last Done: 01/15/23 09:31 Coding Level of Care Code 24978 IN/OBS DISCH 30 MIN/LESS Diagnoses Toxic encephalopathy G92.9 Ambulatory dysfunction R26.2 Bipolar 1 disorder F31.9 Vitamin B1 deficiency E51.9 B12 deficiency E53.8 Schizophrenia F20.9 Tardive dyskinesia G24.01 Hypothyroidism E03.9 Neuroleptic-induced Parkinsonism G21.11 Esophageal reflux K21.9
== END 2023-01-15 10:35 | disposition home health service (06) | DRG 555 ==
LOC: ED 11:28 → EDINP 11:28 → SUATTDRO 16:27 → 3W 19:22 → SUATTDRO 01-07 12:28

== ENCOUNTER 2024-12-24 06:39 | Observation (INO) ==
--- NOTE | 2024-11-13 09:12 | PAT Medication Instructions ---
Medication Instructions Date of Service November 13, 2024 Home Medications Medication Instructions Recorded atorvastatin 20 mg tablet (Lipitor) 20 mg PO HS #30 tabs 01/09/21 atorvastatin 20 mg tablet (Lipitor) 20 mg PO HS aspirin 81 mg tablet,delayed release 81 mg PO DAILY levothyroxine 75 mcg tablet 75 mcg PO QAM lithium carbonate 450 mg tablet,extended release 450 mg PO HS propranolol 10 mg tablet 10 mg PO BID ascorbic acid (vitamin C) 1,500 mg tablet,extended release 1,500 mg PO DAILY cholecalciferol (vitamin D3) 25 mcg (1,000 unit) chewable tablet (Vitamin D3) 25 mcg PO DAILY deutetrabenazine 24 mg tablet,extended release 24 hr (Austedo XR) 24 mg PO QAM melatonin 5 mg tablet 10 mg PO HS PRN Sleep quetiapine 300 mg tablet 300 mg PO HS ASK your prescriber and surgeon aspirin 81 mg tablet,delayed release 81 mg PO DAILY DO NOT take the morning of surgery ascorbic acid (vitamin C) 1,500 mg tablet,extended release 1,500 mg PO DAILY cholecalciferol (vitamin D3) 25 mcg (1,000 unit) chewable tablet (Vitamin D3) 25 mcg PO DAILY Take morning of surgery With a small sip of water, OTHERWISE NOTHING TO EAT OR DRINK AFTER MIDNIGHT: levothyroxine 75 mcg tablet 75 mcg PO QAM propranolol 10 mg tablet 10 mg PO BID deutetrabenazine 24 mg tablet,extended release 24 hr (Austedo XR) 24 mg PO QAM Take evening before surgery atorvastatin 20 mg tablet (Lipitor) 20 mg PO HS lithium carbonate 450 mg tablet,extended release 450 mg PO HS propranolol 10 mg tablet 10 mg PO BID melatonin 5 mg tablet 10 mg PO HS PRN Sleep (if needed) quetiapine 300 mg tablet 300 mg PO HS Other Notes If you have any questions please call us at [phone] or [phone] or [phone] or [phone]
--- NOTE | 2024-11-13 10:06 | PAT Medication Instructions ---
Medication Instructions Date of Service November 13, 2024 Home Medications Medication Instructions Recorded atorvastatin 20 mg tablet (Lipitor) 20 mg PO HS #30 tabs 01/09/21 atorvastatin 20 mg tablet (Lipitor) 20 mg PO HS aspirin 81 mg tablet,delayed release 81 mg PO DAILY levothyroxine 75 mcg tablet 75 mcg PO QAM lithium carbonate 450 mg tablet,extended release 450 mg PO HS propranolol 10 mg tablet 10 mg PO BID ascorbic acid (vitamin C) 1,500 mg tablet,extended release 1,500 mg PO DAILY cholecalciferol (vitamin D3) 25 mcg (1,000 unit) chewable tablet (Vitamin D3) 25 mcg PO DAILY deutetrabenazine 24 mg tablet,extended release 24 hr (Austedo XR) 24 mg PO QAM melatonin 5 mg tablet 10 mg PO HS PRN quetiapine 300 mg tablet 300 mg PO HS ASK your prescriber and surgeon aspirin 81 mg tablet,delayed release 81 mg PO DAILY DO NOT take the morning of surgery ascorbic acid (vitamin C) 1,500 mg tablet,extended release 1,500 mg PO DAILY cholecalciferol (vitamin D3) 25 mcg (1,000 unit) chewable tablet (Vitamin D3) 25 mcg PO DAILY Take morning of surgery With a small sip of water, OTHERWISE NOTHING TO EAT OR DRINK AFTER MIDNIGHT: levothyroxine 75 mcg tablet 75 mcg PO QAM propranolol 10 mg tablet 10 mg PO BID deutetrabenazine 24 mg tablet,extended release 24 hr (Austedo XR) 24 mg PO QAM Take evening before surgery atorvastatin 20 mg tablet (Lipitor) 20 mg PO HS lithium carbonate 450 mg tablet,extended release 450 mg PO HS propranolol 10 mg tablet 10 mg PO BID melatonin 5 mg tablet 10 mg PO HS PRN(if needed) quetiapine 300 mg tablet 300 mg PO HS Other Notes If you have any questions please call us at [phone] or [phone] or [phone] or [phone]
--- NOTE | 2024-11-19 09:12 | Anesthesiology Consultation ---
Date of Service November 19, 2024 Assessment & Plan (1) Encounter for pre-operative examination: - Outpatient joint assessment: Patient is currently scheduled for inpatient pathway. If re-evaluated and patient/surgeon requests outpatient pathway, patient is not ideal candidate for outpatient joint program. Chart Review Chart Review: Acceptable Risk for Surgery and Patient seen in Pre Admission Testing Teaching & Discussion Pre-Anesthesia Teaching/Discussion Notes: Instructed NPO after midnight before surgery, except medications with 15 cc of water. Medication instructions provided according to the PAT guidelines. History Surgery Operation Date: 12/24/24 10:00 Proposed Procedures p Left Total Knee Arthroplasty - Bradley De La Fuente DO Patient accompanied today with granddaughter. Height/Weight Height: 5 ft 1 in Weight: 81.5 kg Allergies Allergy/AdvReac Type Severity Reaction Status Date / Time Penicillins Allergy Unknown Rash Verified 11/06/24 13:09 Medications Home Medications Medication Instructions Recorded Confirmed Last Taken atorvastatin 20 mg tablet (Lipitor) 20 mg PO HS #30 tabs 01/09/21 11/06/24 11/01/24 aspirin 81 mg tablet,delayed 81 mg PO DAILY 11/19/22 11/06/24 11/01/24 release levothyroxine 75 mcg tablet 75 mcg PO QAM 11/19/22 11/06/24 11/01/24 lithium carbonate 450 mg 450 mg PO HS 11/19/22 11/06/24 11/01/24 tablet,extended release propranolol 10 mg tablet 10 mg PO BID 11/19/22 11/06/24 11/01/24 ascorbic acid (vitamin C) 1,500 mg 1,500 mg PO DAILY 11/01/24 11/06/24 11/01/24 tablet,extended release cholecalciferol (vitamin D3) 25 25 mcg PO DAILY 11/01/24 11/06/24 11/01/24 mcg (1,000 unit) chewable tablet (Vitamin D3) deutetrabenazine 24 mg 30 mg PO QAM 11/01/24 11/19/24 11/01/24 tablet,extended release 24 hr (Austedo XR) melatonin 5 mg tablet 10 mg PO HS PRN Sleep 11/01/24 11/06/24 11/01/24 quetiapine 300 mg tablet 300 mg PO HS 11/01/24 11/06/24 11/01/24 Past Medical History Medical History Arthritis Bipolar disorder denies current suicidal thoughts Depression History of anesthesia reaction difficulty waking Hyperlipidemia Hypertension controlled, stable per pt Hypothyroidism Insomnia Lung nodule Neuroleptic malignant syndrome entered into EMR 01/2021 Renal lesion Tardive dyskinesia Tremor of both hands Patient denies h/o stroke, seizures, heart attack, heart failure, DM, blood clots/DVTs or blood transfusions. Exercise / Class Metabolic Activity III < 4 Walking/Shop/Light housework (denies chest discomfort or shortness of breath with usual activities) Past Family History Family History Father Type 2 diabetes mellitus Family hx colonic polyps Brother Type 2 diabetes mellitus Sister Parathyroid disorder Brother Type 2 diabetes mellitus Other No family history of adverse response to anesthesia Past Surgical History Surgical History History of colonoscopy with polypectomy most recent 11/02/24 - w/ removal 1 polyp. [facility]. History of conization of cervix History of cervical conization by laser - pt denies pat call 11/07/24 History of dilation and curettage History of foot surgery x2--right--no hardware History of hysteroscopy History of right oophorectomy History of tooth extraction all upper and lower History of tubal ligation Past Anesthesia History No Family Hx of Anesthesia Complications and Other (slow to wake with anesthesia) History of PONV No Hx of PONV and Hx of Motion Sickness Social History Smoking Status: Never smoker Do You Dip or Chew Tobacco: No Hx Alcohol Use: No Hx Substance Use: No substance use type: does not use Review of Systems Patient denies chest pain, shortness of breath, dyspnea on exertion, snoring, witnessed apneas, reflux, fever, chills, cough, wheezing, or palpitations. Physical Exam Vital Signs Vitals BP 102/68 P 55 TEMP 98.2 SP02 96% on RA RESP 17 Physical Patient resting comfortably in chair in no acute distress, alert and oriented, responding appropriately throughout visit Full cervical extension range of motion without pain TMD 3 finger breadths Mallampati Score 2 Dentition: edentulous, full and lower dentures Lungs: normal respiratory effort. Good air movement, clear throughout to auscultation, no adventitious breath sounds Cardiac: regular rate and rhythm, no murmurs noted Carotid arteries: negative bruit bilat Lab Results Anesthesia Preop Results Results Anesthesia Widget: WBC 7.87 K/ul (4.8-10.8) 11/19/24 Hgb 13.1 g/dl (12.0-16.0) 11/19/24 Hct 40.0 % (37.0-47.0) 11/19/24 Plt 161 K/uL (130-400) 11/19/24 Na 139 mmol/L (136-145) 11/19/24 K 4.1 mmol/L (3.5-5.1) 11/19/24 Cl 107 mmol/L (98-107) 11/19/24 CO2 28 mmol/L (21-32) 11/19/24 BUN 13 mg/dl (6-23) 11/19/24 Creat 0.82 mg/dl (0.6-1.2) 11/19/24 Glucose Level 110 mg/dl (70-99(Fasting)) H 11/19/24 PT 10.3 Seconds (9.0-12.0) 11/19/24 PTT 26 Seconds (21-31) 11/19/24 INR 0.9 (0.9-1.1) 11/19/24 Blood Type A Positive 11/19/24 Antibody Screen NEGATIVE 11/19/24 Testing Electrocardiogram Date: 11/19/24 Sinus bradycardia, rate 55 bpm Chest X-Ray Date: 11/19/24 Lung volumes are normal. Lungs are clear. There is no pneumothorax or pleural effusion. Mild cardiomegaly is unchanged. Mediastinal contours are normal. There is no evidence for pulmonary edema. IMPRESSION: No acute cardiopulmonary findings. Other Testing Head and neck CTA 12/07/22 Normal head CTA. Negative CTA neck.
--- NOTE | 2024-12-19 12:50 | History & Physical Report ---
Date of Service December 19, 2024 Assessment & Plan (1) Osteoarthritis of knee, unspecified: We will proceed with a left total knee arthroplasty. Postoperatively, she will be started on aspirin for DVT prophylaxis and kept overnight in the hospital for postop medical management. She plans to use energy physical therapy at discharge. History of Present Illness Chief Complaint: Osteoarthritis left knee. Primary Care Provider: Sonja Spears DO Taniya is a pleasant 64-year-old female who has been dealing with chronic increasing left knee pain. X-rays and clinical exam have been diagnostic for advanced arthritis of the left knee. After failing extensive conservative treatment, including multiple injections, she has elected proceed with a left total knee arthroplasty. Allergies Allergy/AdvReac Type Severity Reaction Status Date / Time Penicillins Allergy Unknown Rash Verified 11/06/24 13:09 Home Medications Medication Instructions Recorded Confirmed Type atorvastatin 20 mg tablet (Lipitor) 20 mg PO HS #30 tabs 01/09/21 11/06/24 Rx aspirin 81 mg tablet,delayed 81 mg PO DAILY 11/19/22 11/06/24 History release levothyroxine 75 mcg tablet 75 mcg PO QAM 11/19/22 11/06/24 History lithium carbonate 450 mg 450 mg PO HS 11/19/22 11/06/24 History tablet,extended release propranolol 10 mg tablet 10 mg PO BID 11/19/22 11/06/24 History ascorbic acid (vitamin C) 1,500 mg 1,500 mg PO DAILY 11/01/24 11/06/24 History tablet,extended release cholecalciferol (vitamin D3) 25 25 mcg PO DAILY 11/01/24 11/06/24 History mcg (1,000 unit) chewable tablet (Vitamin D3) deutetrabenazine 24 mg 30 mg PO QAM 11/01/24 11/19/24 History tablet,extended release 24 hr (Austedo XR) melatonin 5 mg tablet 10 mg PO HS PRN Sleep 11/01/24 11/06/24 History quetiapine 300 mg tablet 300 mg PO HS 11/01/24 11/06/24 History Past Med/Surg History Problem List Ambulatory dysfunction (Acute) Vitamin B1 deficiency Osteoarthritis of knee, unspecified B12 deficiency Schizophrenia by history Recurrent falls Hypothyroidism Tardive dyskinesia (Acute) Esophageal reflux (Acute) Impaired fasting glucose (Chronic) Lumbago (Acute) Neuroleptic-induced Parkinsonism (Acute) Hyperlipidemia (Chronic) Cervical radiculopathy (Chronic) Bipolar 1 disorder (Chronic) Medical History Tardive dyskinesia Arthritis Hypothyroidism Bipolar disorder denies current suicidal thoughts Depression Tremor of both hands Hyperlipidemia Hypertension controlled, stable per pt Insomnia Renal lesion Neuroleptic malignant syndrome entered into EMR 01/2021 Lung nodule History of anesthesia reaction difficulty waking Surgical History History of colonoscopy with polypectomy most recent 11/02/24 - w/ removal 1 polyp. [facility]. History of tooth extraction all upper and lower History of foot surgery x2--right--no hardware History of right oophorectomy History of hysteroscopy History of dilation and curettage History of conization of cervix History of cervical conization by laser - pt denies pat call 11/07/24 History of tubal ligation Family History Father Type 2 diabetes mellitus Family hx colonic polyps Brother Type 2 diabetes mellitus Sister Parathyroid disorder Brother Type 2 diabetes mellitus Other No family history of adverse response to anesthesia Social History Smoking Status: Never smoker Second Hand Exposure: No; Do You Dip or Chew Tobacco: No; Hx Alcohol Use: No Preferred Language: Taiwanese Communication Ability: Effective Communication Ability Comment: patient often talks to fast, when asked to repeat - easier to understand Layboy Tender Required: No Beliefs That Will Affect Care: None marital status: Current Living Situation: Spouse current occupational status: unemployed 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 Physical Exam On physical exam of the left knee, she has a varus deformity. She has tenderness palpation of the distal medial femoral condyle and over the medial joint line.. Constitutional WD/WN, vitals as above Eyes PERRL, conjunctivae normal, anicteric sclerae ENMT external ear and nose normal, oropharynx normal Neck trachea midline, no thyromegaly Respiratory normal respiratory effort Cardiovascular RRR, no murmur, no edema Gastrointestinal (Abdomen) normal bowel sounds, soft, nontender, no hepatosplenomegaly Psychiatric A+Ox3, euthymic affect Results & Data Results & Data Laboratory Results . Diagnostic Findings X-rays of the left knee show advanced osteoarthritis with joint space narrowing, osteophyte formation, and [id number] articulation. PG Care Time/CCT Total # of Minutes Spent Total Time Spent with Patient: Total time spent is greater than 50% in coordination of care (as documented) at patient's floor/unit and/or counseling patient: Coding Level of Care Code None Diagnoses Osteoarthritis of knee, unspecified M17.9
[~2024-12-24 06:39] MED LIST changes: -ATOR-54 PO; +BUPIVACAINE 0.5 % 5 MG/1 ML PF 10ML VIAL ONE; -GABA-112 PO; -HYDR50CA2 PO; -LEVO100T PO; +LIDOCAINE 2% 2 ML VIAL/AMP(20MG/ML) INFIL ONE; -LTHSR/300 PO; +MIDAZOLAM HCL 1 MG/ML 2ML VIAL ONE; +ONDANSETRON INJ 2 MG/ML 2 ML VIAL ONE; -PROP10TA7 PO; +PROPOFOL IV EMULSION 10 MG/ML 20 ML VIAL IV ONE; +ROPIVACAINE 0.5% 5 MG/ML 30 ML VIAL ONE; -VTME100 PO; -ZOLP10TA PO
--- NOTE | 2024-12-24 06:42 | History & Physical Bridge Note ---
Date of Service December 24, 2024 History & Physical Bridge Note I have examined the patient, reviewed the History & Physical and in the interval since the performance of the History & Physical I have noted the following changes of clinical significance: no changes noted
[2024-12-24] MEDS: LR 500ML BOLUS, THEN 15ML/HR IV SCH (07:12)
[2024-12-24] MEDS: FAMOTIDINE 20 MG TAB PO SCH (07:13)
[2024-12-24] MEDS: dexAMETHasone**PF** 10 MG/ML VIAL IV SCH (07:13)
[2024-12-24] MEDS: ACETAMINOPHEN 500 MG TAB PO SCH ×2 (07:13→15:44)
[2024-12-24] MEDS: LR 60ML/HR IV SCH (07:13)
[2024-12-24] MEDS: GABAPENTIN 300 MG CAP PO SCH (07:13)
[2024-12-24] MEDS ORDERED: ATROPINE SULFATE 0.1 MG/ML 10ML SYR IV PRN (07:34)
[2024-12-24] MEDS ORDERED: ONDANSETRON INJ 2 MG/ML 2 ML VIAL IV PRN ×2 (07:34→10:26)
[2024-12-24] MEDS: TRANEXAMIC ACID 1,000 MG **IV Pre-op IV SCH (07:34)
[2024-12-24] MEDS ORDERED: ePHEDrine sulfate 50 MG/5 ML SYR ONE (08:06)
[2024-12-24] MEDS ORDERED: GLYCOPYRROLATE 0.2 MG/ML VIAL ONE (08:18)
[2024-12-24] MEDS: ORTHO JOINT ANESTHETIC ONE (08:28)
[2024-12-24] MEDS: ROPIV 0.5% 246mg, Ketorolac 30mg, EPINEPHrine 0.5mg in NSS INFIL SCH (08:28)
[2024-12-24] MEDS ORDERED: PHENYLEPHRINE 100MCG/ML 10ML SYR IV ONE (08:29)
[2024-12-24] MEDS ORDERED: PHENYLEPHRINE HCL 10 MG/ML VIAL ONE (09:10)
--- NOTE | 2024-12-24 10:05 | Operative Report ---
PG Post Operative Report Pre & Post Diagnosis Operation Date: 12/24/24 08:00 Pre-Op Diagnosis: Left Knee Osteoarthritis Post-Op Diagnosis: Left Knee Osteoarthritis I identified the patient and participated in the time-out.: Yes Procedure Operation Date: 12/24/24 08:00 Actual Procedures p Robotic Assisted Left Total Knee Arthroplasty(Left) - Bradley De La Fuente DO Surgeon Bradley De La Fuente DO Cage Operator Avila Lakhani PA-C Estimated Blood Loss 30 Findings Consistent with Post-Op Diagnosis Specimens Left femoral and tibial bone Description of Procedure Implants used: I used a Meena Persona total knee arthroplasty system with a size 6 narrow PS femur, C tibia, 28 oval patella, and a size 18 CPS polyethylene bearing. All components were cemented in place with Biomet cement. Taniya arrived [facility] for the above procedure. She was seen in the preoperative holding area and the operative extremity was identified and signed. She was given a preoperative antibiotic, TXA, a spinal anesthetic and an adductor nerve block. She was taken back to the operating room and laid on the table in supine position. She was given basic sedation. The operative knee was then prepped and draped in sterile fashion. A timeout was done, and the patient and the operative extremity was properly identified. A midline incision was made directly over the patella. Dissection was taken down to the extensor mechanism. A medial parapatellar arthrotomy was used. The medial retinaculum was released and the fat pad was mostly excised. The knee was flexed and the ACL, PCL, and meniscus were removed. The alignment of the knee replacement was assisted with a [place] robotic knee. The femoral array was pinned in the distal femur and the tibial array was pinned using a percutaneous technique in the upper shaft of the tibia. The robot was appropriately calibrated and the structure of the knee was mapped out. The components were then manipulated on the screen to account for any malalignment and to assist in gap balancing. Once I was happy with the placement of the components on the screen, a distal femoral cutting guide was brought in place. The distal femur was then resected. The femur measured to be a size 6. A 4-in-1 cutting block was then put into place by the robot and 2 peg holes were drilled. The 4-in-1 cutting block was then impacted into place and anterior, posterior, and chamfer cuts were made. The cutting block was then brought down to the tibia and pinned into place. The proximal tibia was then resected. The posterior aspect of the knee was then opened up and any additional meniscus fragments and osteophytes were removed. The tibia measured to be a size C. The tibial plate was then placed in the appropriate rotation and the tibia was drilled and punched. Trial components were then placed. The patella was then everted and 9 mm was resected off the posterior aspect of the patella. The patella measured to be a size 28 oval. 3 peg holes were then drilled. A trial patella was placed. A size 18 CPS polyethylene insert was then trialed. The knee was brought through a full range of motion and felt to be stable. Trial components were then removed. The surrounding soft tissues were injected with 100 cc of an orthopedic pain control cocktail. All components were then cemented into place with Biomet cement. The final polyethylene insert was then snapped into place. Once cement was dry the tourniquet was deflated. Hemostasis was obtained. A dilute betadyne lavage was then done for 3 minutes. The joint was then irrigated with normal saline solution. The medial parapatellar arthrotomy was then closed with #1 Vicryl suture. The skin was closed with 2-0 Vicryl, 3-0V lock suture, and Wendy zip line. A soft compressive dressing was placed. She was then transferred to a hospital bed and taken to the postanesthesia care unit in stable condition. She tolerated the procedure well. Avila Lakhani PA-C, was present for the entire procedure. He was critical for patient positioning, prepping, draping, retraction exposure, wound closure and application of sterile dressing. I attest to the content of the Intraoperative Record and any orders documented therein. Any exceptions are noted below.
--- NOTE | 2024-12-24 10:11 | XRay Report ---
XR knee LT 1 or 2V routine CLINICAL HISTORY: Surgical Post Op COMPARISON: 08/03/2024 FINDINGS: Left knee prosthesis shows no hardware complication. There is expected soft tissue gas. IMPRESSION: Unremarkable postoperative exam. ACT 112: Negative or not required by law. Electronically signed by: Josh Coy M.D. 12/24/2024 10:09 AM
[2024-12-24] MEDS ORDERED: HYDROmorphone INJ 0.5 MG/0.5 ML SYR IV PRN (10:26)
[2024-12-24] MEDS ORDERED: METOCLOPRAMIDE HCL INJ 5 MG/ML 2 ML VIAL IV PRN (10:26)
[2024-12-24] MEDS ORDERED: NALOXONE HCL 0.4 MG/1 ML VIAL/CARP IV PRN (10:26)
[2024-12-24] MEDS ORDERED: diphenhydrAMINE Capsule 25 MG CAP PO PRN (10:26)
[2024-12-24] MEDS ORDERED: MAGNESIUM HYDROXIDE SUSP 30 ML UDC PO PRN (10:26)
[2024-12-24] MEDS: KETOROLAC TROMETHAMINE 15 MG/ML VIAL IV SCH (11:54)
--- NOTE | 2024-12-24 13:22 | Anesthesiology Progress Note ---
Date of Service December 24, 2024 Anesthesia Post Procedure Vital Signs Vital Signs: Temp Pulse Pulse Resp BP Pulse Ox O2 Del Method 12/24/24 12:38 65 16 108/70 98 Nasal Cannula 12/24/24 11:38 97.7 F 86 16 108/69 96 Nasal Cannula 12/24/24 11:06 72 16 108/71 98 Nasal Cannula 12/24/24 10:15 69 16 113/73 96 Nasal Cannula 12/24/24 10:05 97.9 F 62 16 108/62 96 Nasal Cannula 12/24/24 09:55 64 16 102/63 96 Oxymask 12/24/24 09:45 64 17 108/68 98 Oxymask 12/24/24 09:38 98.2 F 90 19 106/70 97 Oxymask 12/24/24 06:58 98.2 F 59 L 20 141/81 H 100 Room Air O2 Flow Rate 12/24/24 12:38 2.0 12/24/24 11:38 2.0 12/24/24 11:06 2.0 12/24/24 10:15 2 12/24/24 10:05 2 12/24/24 09:55 5 12/24/24 09:45 5 12/24/24 09:38 5 12/24/24 06:58 Transfer of Care Handoff Completed per policy Notes Mental Status: alert / awake / arousable and participated in evaluation Patient Amnestic to Procedure: Yes Nausea / Vomiting: adequately controlled Pain: adequately controlled Airway Patency, RR, SpO2: stable & adequate BP & HR: stable & adequate Hydration State: stable & adequate Neuraxial Anesthesia: was administered and sensory block is resolving Anesthetic Complications: no major complications apparent and Pt Satisfied with anesthetic care
[2024-12-24] MEDS: SODIUM CHLORIDE 0.9% 1,000 ML IV SCH (15:49)
[2024-12-24] MEDS: ATORVASTATIN 20 MG TAB PO SCH (19:40)
[2024-12-24] MEDS: ASPIRIN 81 MG ECTAB PO SCH (19:40)
[2024-12-24] MEDS: LITHIUM CARBONATE 450 MG TABCR PO SCH (19:41)
[2024-12-24] MEDS: PROPRANOLOL HCL 10 MG TAB PO SCH (19:45)
[2024-12-24] MEDS: DOCUSATE SODIUM 100 MG CAP PO SCH (20:57)
[2024-12-24] MEDS: SENNA 8.6 MG TAB PO SCH (20:57)
[2024-12-24] MEDS ORDERED: MELATONIN 3 MG TAB PO PRN (21:00)
[2024-12-25] MEDS: LEVOTHYROXINE SODIUM 75 MCG TABLET PO SCH (05:49)
[2024-12-25 07:15] VITALS: BP 123/72; PULSE 65; RESP 16; TEMP 98.1; O2SAT 96
[2024-12-25] MEDS: AUSTEDO 6 MG PO SCH (08:06)
[2024-12-25] MEDS: MULTIVITAMIN TAB PO SCH (08:06)
[2024-12-25] MEDS: AUSTEDO 24 MG PO SCH (08:06)
--- NOTE | 2024-12-25 08:15 | Orthopedic Progress Note ---
Date of Service December 25, 2024 Assessment & Plan (1) Status post total left knee replacement: * Continue Current Treatment * Disposition: home, PT * Daily treatment: Physical Therapy/ Occupational Therapy per protocol * Weight bearing status: WBAT * Continue to monitor for ABLA * Pain control * DVT prophylaxis, ASA * Office/hospital f/u 2 weeks for progress check and staple/suture removal * Plan for discharge today pending PT/OT clearance Subjective .Active Problems: S/p left TKA POD 1 64 y/o female s/p left total knee arthroplasty. Doing well overall, pain managed and improved function. Denies fever/chills, chest pain/SOB, nausea/vomiting. Otherwise no complaints. Review of Systems All systems reviewed & are unremarkable except as noted in HPI & below. Physical Exam . * General: Alert and oriented, no acute distress * Constitutional: well-developed, well-nourished. * Respiratory: Normal respiratory effort, no distress * Gastrointestinal: No tenderness to palpation, no rigidity or guarding. * Skin: No rash or lesion. * Neurologic: Grossly normal * Musculoskeletal: Left knee surgical dressing CDI, not removed for exam. Otherwise no obvious deformity or overlying skin changes RLE. Diffuse TTP distal thigh and knee region. Otherwise no specific tenderness of proximal thigh, lower leg, foot/ankle. AROM knee flexion 110 degrees. AROM foot/ankle intact. Sensation intact plantar/dorsal foot. Brisk capillary refill. Results & Data Results & Data Laboratory Results . Diagnostic Findings . PG Care Time/CCT Total # of Minutes Spent Total Time Spent with Patient: Total time spent is greater than 50% in coordination of care (as documented) at patient's floor/unit and/or counseling patient: Coding Level of Care Code 68463 Post Operative Follow-Up Diagnoses Status post total left knee replacement Z96.652
== END 2024-12-25 11:40 | disposition home or self-care (01) ==
LOC: 3E 06:39 → ASU 06:39